=== PATIENT | male | born 1960 | race Hispanic/Latino ===

== ENCOUNTER 2018-01-17 16:16 | Emergency (ER) | payer OTHER ==
[2018-01-17 17:31] LABS: Absolute Lymphocytes (CBC) 1.5 K/uL (0.7-4.9); Absolute Monocytes 0.7 K/uL (0.1-1.3); Absolute Neutrophil 4.1 K/uL (1.8-8.0); Basophils % 0.4 % (0-1.3); Hematocrit 36.3 % (39.6-49.0); Lymphocytes % 22.5 % (15.3-44.8); MCH 32.3 pg (27.0-35.0); MCV 96.5 fL (80-100); MPV 8.6 fL (7.6-11.3); Monocytes % 11.2 % (3.3-12.3); RBC Red Blood Cell Count 3.77 M/uL (4.33-5.43)
[2018-01-17 17:35] LABS: Protime INR 0.97
--- NOTE | 2018-01-17 17:53 | RAD REPORT ---
EXAM DESCRIPTION: RAD - Chest Single View - 01/17/2018 5:35 pm CLINICAL HISTORY: Delays, shortness of breath COMPARISON: October 2015 TECHNIQUE: AP portable chest image was obtained 1727 hour . FINDINGS: Low lung volumes are noted. Patient is in a lordotic position. No significant pulmonary ed mary seen. No peripheral mass or consolidation. Lung markings are not substantially different when adj usting for technique and inspiratory effort. Heart and vasculature are normal. No measurable pleural effusion and no pneumothorax. No gross bony abnormality seen. No acute aortic findings suspected. IMPRESSION: Limited portable study not substantially different from comparison.
[2018-01-17 17:58] LABS: ALT/SGPT 19 U/L (12-78); AST/SGOT 12 U/L (15-37); Albumin 3.5 g/dL (3.4-5.0); Alkaline Phosphatase 72 U/L (45-117); BUN Blood Urea Nitrogen 20 mg/dL (7-18); Bicarbonate 22 mmol/L (21-32); Bilirubin Direct < 0.1 mg/dL (0-0.2); Bilirubin Total 0.3 mg/dL (0.2-1.0); Creatine Phosphokinase 56 U/L (39-308); Glucose Level 189 mg/dL (74-106); Magnesium 1.5 mg/dL (1.8-2.4); NT PRO-BNP 17 pg/mL (<125); Protein, Total 6.8 g/dL (6.4-8.2); Sodium Level 140 mmol/L (136-145)
[2018-01-17] MEDS ORDERED: NA CHLORIDE 0.9% 1,000 ML ONE (18:36)
[2018-01-17] MEDS ORDERED: NA CHLORIDE 0.9% 500 ML ONE (20:53)
[2018-01-17] MEDS ORDERED: Magnesium Sulfate 2gm IVPB 2 G/50 ML BAG IV ONE (20:53)
[2018-01-17 20:57] LABS: Urine Blood NEGATIVE (NEG); Urine Glucose NEGATIVE (NEG); Urine Protein NEGATIVE (NEG); Urine Specific Gravity >1.030 (1.005-1.030); Urine pH 5.5 (5.0-7.0)
--- NOTE | 2018-01-17 21:37 | EDPHYS ---
Physician Documentation [facility] Name: Trever Jay Age: 57 yrs Sex: Male : 1960 Arrival Date: 01/17/2018 Time: 16:21 Bed 30 Private MD: ED Physician Claudio Pedro HPI: 01/17 21:33 This 57 yrs old Male presents to ER via Wheelchair with complaints of Near gs Syncope, High Blood Sugar. 21:33 The patient has experienced near-syncope, almost passed out. Onset: The gs symptoms/episode began/occurred acutely, just prior to arrival. Duration: This was a single episode, that lasted 5 minute(s). Associated injury: The patient did not suffer any apparent associated injury. Associated signs and symptoms: Pertinent negatives: abdominal pain, chest pain, shortness of breath. Current symptoms: Currently, the patient is not experiencing any symptoms, the patient feels back to baseline. The patient has experienced similar episodes in the past, a few times. Historical: - Allergies: 16:27 No Known Allergies; la1 - PMHx: 16:27 Diabetes - NIDDM; High Cholesterol; la1 - Immunization history:: Adult Immunizations up to date. - Social history:: Smoking status: Patient/guardian denies using tobacco. - Ebola Screening: : No symptoms or risks identified at this time. ROS: 21:33 All other systems are negative. gs Exam: 21:33 Head/Face: Normocephalic, atraumatic. Eyes: Pupils equal round and reactive to light, gs extra-ocular motions intact. Lids and lashes normal. Conjunctiva and sclera are non-icteric and not injected. Cornea within normal limits. Periorbital areas with no swelling, redness, or edema. ENT: Nares patent. No nasal discharge, no septal abnormalities noted. Tympanic membranes are normal and external auditory canals are clear. Oropharynx with no redness, swelling, or masses, exudates, or evidence of obstruction, uvula midline. Mucous membranes moist. Neck: Trachea midline, no thyromegaly or masses palpated, and no cervical lymphadenopathy. Supple, full range of motion without nuchal rigidity, or vertebral point tenderness. No Meningismus. Chest/axilla: Normal chest wall appearance and motion. Nontender with no deformity. No lesions are appreciated. Cardiovascular: Regular rate and rhythm with a normal S1 and S2. No gallops, murmurs, or rubs. Normal PMI, no JVD. No pulse deficits. Respiratory: Lungs have equal breath sounds bilaterally, clear to auscultation and percussion. No rales, rhonchi or wheezes noted. No increased work of breathing, no retractions or nasal flaring. Abdomen/GI: Soft, non-tender, with normal bowel sounds. No distension or tympany. No guarding or rebound. No evidence of tenderness throughout. Back: No spinal tenderness. No costovertebral tenderness. Full range of motion. Skin: Warm, dry with normal turgor. Normal color with no rashes, no lesions, and no evidence of cellulitis. MS/ Extremity: Pulses equal, no cyanosis. Neurovascular intact. Full, normal range of motion. Neuro: Awake and alert, GCS 15, oriented to person, place, time, and situation. Cranial nerves II-XII grossly intact. Motor strength 5/5 in all extremities. Sensory grossly intact. Cerebellar exam normal. Normal gait. 21:33 ECG was reviewed by the Attending Physician. Vital Signs: 16:27 BP 105 / 73; Pulse 75; Resp 19; Temp 98.4(O); Pulse Ox 100% on R/A; Weight 84.37 kg; la1 Height 5 ft. 1 in. (154.94 cm); 16:48 BP 110 / 71; Pulse 79; Resp 17; Pulse Ox 96% on R/A; rv 18:30 BP 107 / 71; Pulse 66; Resp 16; Pulse Ox 97% on R/A; Pain 0/10; ed1 19:38 BP 118 / 76; Pulse 65; Resp 16; Pulse Ox 98% on R/A; Pain 0/10; ed1 20:31 BP 109 / 75; Pulse 61; Resp 18; Pulse Ox 97% on R/A; Pain 0/10; ed1 21:31 Pulse 67; Resp 16; Pulse Ox 97% on R/A; Pain 0/10; ed1 22:13 BP 115 / 70; Pulse 68; Resp 17; Pulse Ox 99% on R/A; kr2 16:27 Body Mass Index 35.14 (84.37 kg, 154.94 cm) la1 MDM: 17:11 Patient medically screened. gs 21:33 Differential Diagnosis: cardiac arrhythmia, drug effect, idiopathic syncope, gs dehydration. Data reviewed: vital signs, nurses notes. Response to treatment: the patient's symptoms have markedly improved after treatment, and as a result, I will discharge patient. 01/17 17:00 Order name: Basic Metabolic Panel 01/17 17:00 Order name: CBC with Diff; Complete Time: 20:40 gs 01/17 17:00 Order name: CPK gs 01/17 17:00 Order name: LFT's; Complete Time: 20:40 gs 01/17 17:00 Order name: Magnesium; Complete Time: 20:40 gs 01/17 17:00 Order name: NT PRO-BNP; Complete Time: 20:40 gs 01/17 17:00 Order name: PT-INR; Complete Time: 20:40 gs 01/17 17:00 Order name: Troponin (emerg Dept Use Only); Complete Time: 20:40 gs 01/17 17:00 Order name: XRAY Chest (1 view); Complete Time: 20:40 gs 01/17 17:01 Order name: Basic Metabolic Panel; Complete Time: 20:40 EDMS 01/17 17:01 Order name: Creatine Phosphokinase; Complete Time: 20:40 EDMS 0806 17:05 Order name: Glucose, Ancillary Testing; Complete Time: 20:40 EDMS 01/17 20:51 Order name: Urine Dipstick--Ancillary (enter results); Complete Time: 21:37 mw2 01/17 17:00 Order name: EKG; Complete Time: 17:01 gs 01/17 17:00 Order name: Cardiac monitoring; Complete Time: 17:26 gs 01/17 17:00 Order name: EKG - Nurse/Tech; Complete Time: 17:45 gs 01/17 17:00 Order name: IV Saline Lock; Complete Time: 17:26 gs 01/17 17:00 Order name: Labs collected and sent; Complete Time: 17:26 gs 01/17 17:00 Order name: O2 Per Protocol; Complete Time: 17:26 gs 01/17 17:00 Order name: O2 Sat Monitoring; Complete Time: 17:26 gs 01/17 17:00 Order name: Urine Dipstick-Ancillary (obtain specimen); Complete Time: 20:49 gs EC:33 Rate is 75 beats/min. Rhythm is regular. NE interval is normal. QRS interval is gs prolonged. T waves are Normal. Clinical impression: Abnormal EKG without significant change. Interpreted by me. Administered Medications: 18:35 Drug: NS 0.9% 1000 ml Route: IV; Rate: 1 bolus; Site: right forearm; ed1 20:37 Follow up: IV Status: Completed infusion; IV Intake: 1000ml ed1 20:54 Drug: Magnesium Sulfate 2 grams Route: IVPB; Infused Over: 2 hrs; Site: right forearm; ed1 22:05 Follow up: Response: No adverse reaction; IV Status: Completed infusion kr2 20:54 Drug: NS 0.9% 500 ml Route: IV; Rate: bolus; Site: right forearm; ed1 22:13 Follow up: Response: No adverse reaction; IV Status: Completed infusion kr2 Point of Care Testing: Blood Glucose: 16:35 Blood Glucose: 131 mg/dL; ed1 Ranges: Critical Glucose Levels:Adult <50 mg/dl or >400 mg/dl <40 mg/dl or >180 mg/dl Disposition: 01/17/18 21:37 Discharged to Home. Impression: Syncope and collapse, Hypomagnesemia. - Condition is Stable. - Discharge Instructions: Hypomagnesemia, Near-Syncope, Dehydration, Adult, [id number]. - Medication Reconciliation Form, Thank You Letter, Antibiotic Education, Prescription Opioid Use form. - Follow up: Private Physician; When: 2 - 3 days; Reason: Re-evaluation by your physician. Signatures: Dispatcher [employer] EDMS Donita Szymanski, GOVERNMENT INSTRUCTOR GOVERNMENT INSTRUCTOR ed1 Damien Muhammad RN RN la1 Claudio Pedro MD MD gs Reaves, Karey, RN RN kr2 Corrections: (The following items were deleted from the chart) 20:31 17:27 PSHx: Hysterectomy; ed1 ed1 20:31 17:27 PSHx: Tubal ligation; ed1 ed1 21:38 21:37 01/17/2018 21:37 Discharged to Home. Impression: Syncope and collapse; gs Hypokalemia; Hypomagnesemia. Condition is Stable. Forms are Medication Reconciliation Form, Thank You Letter, Antibiotic Education, Prescription Opioid Use. Follow up: Private Physician; When: 2 - 3 days; Reason: Re-evaluation by your physician. gs 22:18 21:38 01/17/2018 21:37 Discharged to Home. Impression: Syncope and collapse; kr2 Hypomagnesemia. Condition is Stable. Discharge Instructions: Hypomagnesemia, Near-Syncope, Hypokalemia. Forms are Medication Reconciliation Form, Thank You Letter, Antibiotic Education, Prescription Opioid Use. Follow up: Private Physician; When: 2 - 3 days; Reason: Re-evaluation by your physician. gs
--- NOTE | 2018-01-17 21:37 | ER ---
Nurse's Notes [facility] Name: Trever Jay Age: 57 yrs Sex: Male : 1960 Arrival Date: 01/17/2018 Time: 16:21 Bed 30 Private MD: Diagnosis: Syncope and collapse;Hypomagnesemia Presentation: 01/17 16:26 Presenting complaint: Significant other states: He was at the gas station and almost la1 passed out, he is diabetic so he ate a bunch of sweets but he is still not feeling quite right. Transition of care: patient was not received from another setting of care. Onset of symptoms was January 17, 2018. Risk Assessment: Do you want to hurt yourself or someone else? Patient reports no desire to harm self or others. Initial Sepsis Screen: Does the patient meet any 2 criteria? No. Patient's initial sepsis screen is negative. Does the patient have a suspected source of infection? No. Patient's initial sepsis screen is negative. Care prior to arrival: None. 16:26 Method Of Arrival: Wheelchair la1 16:26 Acuity: ANAMARIA 3 la1 Historical: - Allergies: 16:27 No Known Allergies; la1 - PMHx: 16:27 Diabetes - NIDDM; High Cholesterol; la1 - Immunization history:: Adult Immunizations up to date. - Social history:: Smoking status: Patient/guardian denies using tobacco. - Ebola Screening: : No symptoms or risks identified at this time. Screenin:35 Abuse screen: Denies threats or abuse. Denies injuries from another. Nutritional ed1 screening: No deficits noted. Tuberculosis screening: No symptoms or risk factors identified. Fall Risk None identified. Assessment: 16:35 General: Appears in no apparent distress. Behavior is calm, cooperative. Pain: Denies ed1 pain. Neuro: Level of Consciousness is awake, alert, obeys commands, Oriented to person, place, time, situation, Sample Steamer are equal bilaterally Moves all extremities. Full function Gait is steady, Speech is normal, Facial symmetry appears normal, Reports a syncopal episode Denies weakness blurred vision dizziness, difficulty swallowing, paresthesias numbness headache photophobia diplopia. Cardiovascular: Denies chest pain, Heart tones S1 S2 present. Respiratory: Airway is patent Respiratory effort is even, unlabored, Respiratory pattern is regular, symmetrical, Breath sounds are clear bilaterally. GI: Abdomen is non-distended, Bowel sounds present X 4 quads. Abd is soft and non tender X 4 quads. : No signs and/or symptoms were reported regarding the genitourinary system. EENT: No signs and/or symptoms were reported regarding the EENT system. Derm: Skin is pink, warm \T\ dry. Musculoskeletal: Circulation, motion, and sensation intact. 16:40 General: The previous assessment is accurate. Call light remains within reach. . ss 18:30 Reassessment: Patient appears in no apparent distress at this time. No changes from ed1 previously documented assessment. Patient and/or family updated on plan of care and expected duration. Pain level reassessed. Patient is alert, oriented x 3, equal unlabored respirations, skin warm/dry/pink. Patient denies pain at this time. 19:38 Reassessment: Patient appears in no apparent distress at this time. No changes from ed1 previously documented assessment. Patient and/or family updated on plan of care and expected duration. Pain level reassessed. Patient is alert, oriented x 3, equal unlabored respirations, skin warm/dry/pink. Patient denies pain at this time. 20:31 Reassessment: Patient appears in no apparent distress at this time. No changes from ed1 previously documented assessment. Patient and/or family updated on plan of care and expected duration. Pain level reassessed. Patient is alert, oriented x 3, equal unlabored respirations, skin warm/dry/pink. Patient denies pain at this time. 21:31 Reassessment: Patient appears in no apparent distress at this time. No changes from ed1 previously documented assessment. Patient and/or family updated on plan of care and expected duration. Pain level reassessed. Patient is alert, oriented x 3, equal unlabored respirations, skin warm/dry/pink. Patient denies pain at this time. 22:13 Reassessment: Patient appears in no apparent distress at this time. Patient and/or kr2 family updated on plan of care and expected duration. Pain level reassessed. Patient is alert, oriented x 3, equal unlabored respirations, skin warm/dry/pink. Patient denies pain at this time. Patient states feeling better. Vital Signs: 16:27 BP 105 / 73; Pulse 75; Resp 19; Temp 98.4(O); Pulse Ox 100% on R/A; Weight 84.37 kg; la1 Height 5 ft. 1 in. (154.94 cm); 16:48 BP 110 / 71; Pulse 79; Resp 17; Pulse Ox 96% on R/A; rv 18:30 BP 107 / 71; Pulse 66; Resp 16; Pulse Ox 97% on R/A; Pain 0/10; ed1 19:38 BP 118 / 76; Pulse 65; Resp 16; Pulse Ox 98% on R/A; Pain 0/10; ed1 20:31 BP 109 / 75; Pulse 61; Resp 18; Pulse Ox 97% on R/A; Pain 0/10; ed1 21:31 Pulse 67; Resp 16; Pulse Ox 97% on R/A; Pain 0/10; ed1 22:13 BP 115 / 70; Pulse 68; Resp 17; Pulse Ox 99% on R/A; kr2 16:27 Body Mass Index 35.14 (84.37 kg, 154.94 cm) la1 ED Course: 16:21 Patient arrived in ED. es 16:27 Triage completed. la1 16:27 Arm band placed on left wrist. la1 16:28 Donita Szymanski LVN is Primary Nurse. ed1 16:35 Awaiting ED provider evaluation. ed1 16:35 Patient has correct armband on for positive identification. Placed in gown. Bed in low ed1 position. Call light in reach. Adult w/ patient. equipment monitor phototypesetting on. Pulse ox on. NIBP on. 16:39 Claudio Pedro MD is Attending Physician. gs 17:10 EKG done, by remote sensing technician. reviewed by Claudio Pedro MD. 3 17:20 Initial lab(s) drawn, by id, sent to lab. Inserted saline lock: 22 gauge in right jp3 forearm, using aseptic technique. Blood collected. 17:29 X-ray completed. Portable x-ray completed in exam room. Patient tolerated procedure kp1 well. 17:30 XRAY Chest (1 view) In Process Unspecified. EDMS 19:39 Awaiting disposition. ed1 19:53 Basic Metabolic Panel Sent. ed1 19:53 CPK Sent. ed1 20:33 Awaiting disposition. ed1 20:40 Urine collected: clean catch specimen, clear, germaine colored. jp3 21:31 Awaiting: Completion of IV magnesium. ed1 21:45 Primary Nurse role handed off by Donita Szymanski LVN ed1 22:15 No provider procedures requiring assistance completed. IV discontinued, intact, kr2 bleeding controlled, No redness/swelling at site. Pressure dressing applied. Administered Medications: 18:35 Drug: NS 0.9% 1000 ml Route: IV; Rate: 1 bolus; Site: right forearm; ed1 20:37 Follow up: IV Status: Completed infusion; IV Intake: 1000ml ed1 20:54 Drug: Magnesium Sulfate 2 grams Route: IVPB; Infused Over: 2 hrs; Site: right forearm; ed1 22:05 Follow up: Response: No adverse reaction; IV Status: Completed infusion kr2 20:54 Drug: NS 0.9% 500 ml Route: IV; Rate: bolus; Site: right forearm; ed1 22:13 Follow up: Response: No adverse reaction; IV Status: Completed infusion kr2 Point of Care Testing: Blood Glucose: 16:35 Blood Glucose: 131 mg/dL; ed1 Ranges: Intake: 20:37 IV: 1000ml; Total: 1000ml. ed1 Outcome: 21:37 Discharge ordered by . gs 22:15 Discharged to home ambulatory, with family. kr2 22:15 Condition: good 22:15 Discharge instructions given to patient, family, Instructed on discharge instructions, follow up and referral plans. Demonstrated understanding of instructions, follow-up care. 22:18 Patient left the ED. kr2 Signatures: Dispatcher [employer] EDMS Emelina Baeza Shelby, RN RN Donita Szymanski LVN LVN ed1 Damien Muhammad RN RN la1 Poole, Kathy 1 Claudio Pedro MD MD Dianna Haro RN RN kr2 Cordelia Ramirez 3 Aiden Anguiano RN RN Corey Fu jp3 Corrections: (The following items were deleted from the chart) 20:31 17:27 PSHx: Hysterectomy; ed1 ed1 20:31 17:27 PSHx: Tubal ligation; ed1 ed1
--- NOTE | 2018-01-18 06:48 | EKG ---
Test Date: 2018-01-17 Test Time: 17:07:00 Edge Polisher: SHEA MEASUREMENT RESULTS: Intervals: Rate: 75 NE: 164 QRSD: 108 QT: 394 QTc: 439 [place]: P: 47 NE: 164 QRS: -29 T: 40 INTERPRETIVE STATEMENTS: Normal sinus rhythm Normal ECG Compared to ECG 05/17/2002 15:47:00 No significant changes Electronically Signed On 01-18-18 06:48:02 CDT by Phani Yanes
== END 2018-01-17 22:18 | disposition home or self-care (01) ==
LOC: ER 16:16
DX: R55 Syncope and collapse (principal); E83.42 Hypomagnesemia; E11.9 Type 2 diabetes mellitus without complications
CPT/HCPCS: 36415; 71045; 80048; 80076; 81003; 82550; 82962; 83735; 83880; 84484; 85025; 85610; 93005; J3475; J7030; 96361; 96365; 99285

== ENCOUNTER 2018-06-30 17:46 | Emergency (ER) | payer OTHER ==
--- NOTE | 2018-06-30 20:11 | RAD REPORT ---
EXAM DESCRIPTION: CT - Head C Spine Mpr Wo Con - 06/30/2018 7:56 pm CLINICAL HISTORY: Head and neck injury status post fall. Head and neck pain COMPARISON: None. TECHNIQUE: Computed axial tomography of the head and cervical spine was obtained. Sagittal and coronal reconstruction was performed. All CT scans are performed using dose optimization technique as appropriate and may include automated exposure control or mA/KV adjustment according to patient size. FINDINGS: An intracranial bleed is not seen. The ventricles are normal in caliber. An extra-axial fl uid collection is not noted.Fluid within the visualized sinuses and mastoids is not seen the left man dibular condyle lies anterior to the TMJ A cervical fracture is not visualized. No dislocation is noted. Loss of the normal lordosis may be se condary to muscle spasm IMPRESSION: No acute intracranial abnormality is seen. A cervical fracture is not visualized. If the patient continues to have symptoms to suggest intracra nial /spinal cord pathology then MRI would be recommended Left mandibular condyle lies anterior to the TMJ which may indicate a dislocation or be secondary to positioning. This should be correlated clinically
--- NOTE | 2018-06-30 20:17 | RAD REPORT ---
EXAM DESCRIPTION: CT - Abdomen Pelvis Wo Contrast - 06/30/2018 7:57 pm CLINICAL HISTORY: Abdominal pain status post fall COMPARISON: 2013 TECHNIQUE: Computed axial tomography of the abdomen and pelvis was obtained. IV and oral contrast we re not requested. All CT scans are performed using dose optimization technique as appropriate and may include automated exposure control or mA/KV adjustment according to patient size. FINDINGS: The evaluation of solid organs, vessels and bowel is limited secondary to the lack of con trast administration. The liver, spleen, pancreas, adrenals, kidneys and bladder do not demonstrate a traumatic injury. . The appendix is normal. There is no evidence of diverticulitis. Small left inguinal hernia contains fat. Tiny nonobstructing right renal calculi IMPRESSION: No acute traumatic injury is seen
--- NOTE | 2018-06-30 20:53 | EDPHYS ---
Physician Documentation [facility] Name: Trever Jay Age: 58 yrs Sex: Male : 1960 Arrival Date: 06/30/2018 Time: 17:48 Bed 18 Private MD: Bhanu Kohler E ED Physician Claudio Pedro HPI: 06/30 20:49 This 58 yrs old Male presents to ER via Ambulatory with complaints of Fall gs Injury. 20:49 Details of fall: The patient fell from an upright position, while walking. Onset: The gs symptoms/episode began/occurred acutely, just prior to arrival. Associated injuries: The patient sustained injury to the head, neck injury, left hip and right hip. Severity of symptoms: At their worst the symptoms were moderate, in the emergency department the symptoms are unchanged. The patient has not experienced similar symptoms in the past. The patient has not recently seen a physician. Historical: - Allergies: 18:12 No Known Allergies; hb - PMHx: 18:12 Diabetes - NIDDM; High Cholesterol; hb - Immunization history:: Adult Immunizations up to date. - Social history:: Smoking status: Patient uses tobacco products, smokes one-half pack cigarettes per day. - Ebola Screening: : No symptoms or risks identified at this time. ROS: 20:49 Neuro: Positive for loss of consciousness. gs 20:49 All other systems are negative. Exam: 20:49 Head/Face: Normocephalic, atraumatic. Eyes: Pupils equal round and reactive to light, gs extra-ocular motions intact. Lids and lashes normal. Conjunctiva and sclera are non-icteric and not injected. Cornea within normal limits. Periorbital areas with no swelling, redness, or edema. ENT: Nares patent. No nasal discharge, no septal abnormalities noted. Tympanic membranes are normal and external auditory canals are clear. Oropharynx with no redness, swelling, or masses, exudates, or evidence of obstruction, uvula midline. Mucous membranes moist. Chest/axilla: Normal chest wall appearance and motion. Nontender with no deformity. No lesions are appreciated. Cardiovascular: Regular rate and rhythm with a normal S1 and S2. No gallops, murmurs, or rubs. Normal PMI, no JVD. No pulse deficits. Respiratory: Lungs have equal breath sounds bilaterally, clear to auscultation and percussion. No rales, rhonchi or wheezes noted. No increased work of breathing, no retractions or nasal flaring. Abdomen/GI: Soft, non-tender, with normal bowel sounds. No distension or tympany. No guarding or rebound. No evidence of tenderness throughout. MS/ Extremity: Pulses equal, no cyanosis. Neurovascular intact. Full, normal range of motion. Neuro: Awake and alert, GCS 15, oriented to person, place, time, and situation. Cranial nerves II-XII grossly intact. Motor strength 5/5 in all extremities. Sensory grossly intact. Cerebellar exam normal. Normal gait. 20:49 Constitutional: The patient appears alert, awake. 20:49 Neck: C-spine: vertebral tenderness, that is mild, appreciated at C3 and C4. 20:49 Back: vertebral tenderness, is appreciated at L3 and L4. 20:49 Musculoskeletal/extremity: Circulation is intact in all extremities. Joints: the left hip and right hip displays tenderness. Vital Signs: 18:10 BP 122 / 78; Pulse 80; Resp 18; Pulse Ox 98% on R/A; Pain 10/10; ls4 18:11 BP 108 / 72; Pulse 88; Resp 18; Temp 97.2; Pulse Ox 100% on R/A; Pain 10/10; hb 20:51 BP 119 / 75; Pulse 80; Resp 16; Pulse Ox 99% on R/A; ls4 Trauma Score (Adult): 18:11 Eye Response: spontaneous(1); Verbal Response: oriented(1); Motor Response: obeys hb commands(2); Systolic BP: > 89 mm Hg(4); Respiratory Rate: 10 to 29 per min(4); [place] Score: 15; Trauma Score: 12 MDM: 19:38 Patient medically screened. gs 20:49 Differential diagnosis: closed head injury, contusion, fracture. Data reviewed: vital gs signs, nurses notes. Counseling: I had a detailed discussion with the patient and/or guardian regarding: the historical points, exam findings, and any diagnostic results supporting the discharge/admit diagnosis, radiology results, the need for outpatient follow up. Response to treatment: the patient's symptoms have markedly improved after treatment, and as a result, I will discharge patient. 06/30 19:41 Order name: CT Head C Spine; Complete Time: 20:48 06/30 19:41 Order name: CT Abd/Pelvis - Without Cont; Complete Time: 20:48 gs Administered Medications: No medications were administered Disposition: 06/30/18 20:52 Discharged to Home. Impression: Concussion, Contusion of lower back and pelvis. - Condition is Stable. - Discharge Instructions: Contusion, Concussion, Adult, [id number]. - Prescriptions for Tylenol- Codeine #4 300-60 mg Oral Tablet - take 1 tablet by ORAL route every 6 hours As needed; 10 tablet. - Medication Reconciliation Form, Thank You Letter, Antibiotic Education, Prescription Opioid Use form. - Follow up: Emergency Department; When: 2 - 3 days; Reason: Re-evaluation by your physician. - Problem is new. - Symptoms have improved. Signatures: Dispatcher [employer] EDMS Ariela Akhtar, RN RN Claudio Pedro MD MD Tanya Russell RN RN ls4 Corrections: (The following items were deleted from the chart) 21:32 20:52 06/30/2018 20:52 Discharged to Home. Impression: Concussion; Contusion of lower ls4 back and pelvis. Condition is Stable. Forms are Medication Reconciliation Form, Thank You Letter, Antibiotic Education, Prescription Opioid Use. Follow up: Emergency Department; When: 2 - 3 days; Reason: Re-evaluation by your physician. Problem is new. Symptoms have improved. gs
--- NOTE | 2018-06-30 20:53 | ER ---
Nurse's Notes [facility] Name: Trever Jay Age: 58 yrs Sex: Male : 1960 Arrival Date: 06/30/2018 Time: 17:48 Bed 18 Private MD: Bhanu Kohler E Diagnosis: Concussion;Contusion of lower back and pelvis Presentation: 06/30 18:07 Presenting complaint: Tripped on rug at grocery store, fell forward and landed on left hb side, now c/o left hip pain 03/23. + LOC. EMS was called to scene but pt refused due to concerns over transportation home. Care prior to arrival: None. Mechanism of Injury: Fall. 18:07 Acuity: ANAMARIA 2 hb 18:07 Method Of Arrival: Ambulatory hb 18:49 Risk Assessment: Do you want to hurt yourself or someone else? Patient reports no ls4 desire to harm self or others. 19:29 Transition of care: patient was not received from another setting of care. Onset of ls4 symptoms was June 30, 2018. Initial Sepsis Screen: Does the patient meet any 2 criteria? No. Patient's initial sepsis screen is negative. Does the patient have a suspected source of infection? No. Patient's initial sepsis screen is negative. Triage Assessment: 18:10 General: Appears in no apparent distress. Behavior is calm, cooperative. ls4 18:10 Pain: Complains of pain in "ALL OVER" Pain currently is 10 out of 10 on a pain scale. ls4 Noted to be PT MOVING ARMS AND LEGS AND ABLE TO GET UP AND DOWN FROM WHEEL CHAIR INDEPENDENTLY. Neuro: No deficits noted. Respiratory: No deficits noted. Musculoskeletal: Circulation, motion, and sensation intact. Capillary refill < 3 seconds, Range of motion: limited in left knee and right knee PT STATES HE NEEDS KNEE SURGERIES AND WEARS BRACES ON BOTH KNEES. Trauma Activation: Alert Physician: ED Physician; Name: ; Notified At: ; Arrived At: Physician: General Surgeon; Name: ; Notified At: ; Arrived At: Physician: Radiology; Name: ; Notified At: ; Arrived At: Physician: Respiratory; Name: ; Notified At: ; Arrived At: Physician: Lab; Name: ; Notified At: ; Arrived At: Historical: - Allergies: 18:12 No Known Allergies; hb - PMHx: 18:12 Diabetes - NIDDM; High Cholesterol; hb - Immunization history:: Adult Immunizations up to date. - Social history:: Smoking status: Patient uses tobacco products, smokes one-half pack cigarettes per day. - Ebola Screening: : No symptoms or risks identified at this time. Screenin:24 Abuse screen: Denies threats or abuse. Denies injuries from another. Nutritional ls4 screening: No deficits noted. Tuberculosis screening: No symptoms or risk factors identified. Fall Risk None identified. Primary Survey: 18:24 NO uncontrolled hemorrhage observed. A: The patient is alert. Airway: patent. ls4 Breathing/Chest: Respiratory pattern: regular, Respiratory effort: spontaneous, unlabored, Breath sounds: clear, bilaterally. Circulation: Pulses: palpable right radial artery, right dorsalis pedis artery, left radial artery and left dorsalis pedis artery. Skin color: pink. Disability Alert. Exposure/Environment: All clothing and personal items were removed. Forensic evidence collection is not deemed to be indicated at this time. Items placed in patient belonging bag. There is no evidence of uncontrolled external bleeding. No obvious injuries are noted at this time. A warming method has been applied: WARM BLANKET GIVEN. Reassessment Airway Airway Patent Breathing/Chest Respiratory pattern Regular Respiratory effort Spontaneous Unlabored Breath sounds Clear Circulation Heart rhythm Sinus rhythm Disability Alert. Secondary Survey: 18:26 HEENT: No deficits noted. Gastrointestinal: No deficits noted. : No deficits noted. ls4 Musculoskeletal: No deficits noted. Injury Description: NO VISIBLE INJURIES. Assessment: 18:19 General: Appears in no apparent distress. Behavior is calm. Pain: Complains of pain in ls4 GENERALIZED. Neuro: Level of Consciousness is awake, alert, Oriented to person, place, time. Cardiovascular: No deficits noted. Respiratory: No deficits noted. GI: No deficits noted. : No deficits noted. Derm: No deficits noted. Musculoskeletal: Circulation, motion, and sensation intact. Capillary refill < 3 seconds, Range of motion: intact in all extremities, PT WEARING BILATERAL KNEE BRACES AND STATES HE HAS ARTHRITIS AND NEEDS KNEE SURGERIES IN BOTH KNEES. PT ABLE TO BEND KNEES AND HIPS. NONE Swelling absent. Injury Description: FALL. PT STATES HE TRIPPED ON RUG. NO ABRASIONS OR INJURY NOTED. 19:27 Reassessment: Patient appears in no apparent distress at this time. Patient and/or ls4 family updated on plan of care and expected duration. Pain level reassessed. Patient is alert, oriented x 3, equal unlabored respirations, skin warm/dry/pink. PT RESTING QUIETLY. ALERT AND ORIENTED X 4. PT IN NAD, NO GRIMACING AND ABLE TO MOVE ABOUT WITHOUT DISTRESS. 20:38 Reassessment: Patient appears in no apparent distress at this time. Patient and/or ls4 family updated on plan of care and expected duration. Pain level reassessed. Patient is alert, oriented x 3, equal unlabored respirations, skin warm/dry/pink. Vital Signs: 18:10 BP 122 / 78; Pulse 80; Resp 18; Pulse Ox 98% on R/A; Pain 10/10; ls4 18:11 BP 108 / 72; Pulse 88; Resp 18; Temp 97.2; Pulse Ox 100% on R/A; Pain 10/10; hb 20:51 BP 119 / 75; Pulse 80; Resp 16; Pulse Ox 99% on R/A; ls4 Trauma Score (Adult): 18:11 Eye Response: spontaneous(1); Verbal Response: oriented(1); Motor Response: obeys hb commands(2); Systolic BP: > 89 mm Hg(4); Respiratory Rate: 10 to 29 per min(4); [place] Score: 15; Trauma Score: 12 ED Course: 17:48 Patient arrived in ED. rg4 17:49 Bhanu Kohler MD is Private Physician. rg4 18:09 Triage completed. hb 18:12 Rome Hendrix MD is Attending Physician. kdr 18:12 Arm band placed on. hb 18:19 Tanya Russell, NATHALIE is Primary Nurse. ls4 18:24 Patient has correct armband on for positive identification. Bed in low position. Side ls4 rails up X 1. 18:24 No provider procedures requiring assistance completed. ls4 19:04 Attending Physician role handed off by Rome Hendrix MD gs 19:04 Claudio Pedro MD is Attending Physician. gs 19:[address] vm2 19:53 CT completed. Patient tolerated procedure well. Patient moved back from CT. vm2 19:57 CT Head C Spine In Process Unspecified. EDMS 19:57 CT Abd/Pelvis - Without Cont In Process Unspecified. EDMS 21:13 Patient did not have IV access during this emergency room visit. ls4 Administered Medications: No medications were administered Outcome: 20:52 Discharge ordered by . magi 21:08 Discharged to home ambulatory. ls4 21:08 Condition: stable 21:08 Discharge instructions given to patient, Instructed on discharge instructions, follow up and referral plans. no drinking with medication, no driving heavy equipment, medication usage, Demonstrated understanding of instructions, follow-up care, medications. 21:32 Patient left the ED. ls4 Signatures: Dispatcher [employer] EDMS Rome Hendrix MD MD [facility] Ariela Akhtar RN RN Beata Smith 4 Bridget Restrepo [facility] Claudio Pedro MD MD gs Stewart, Lisa, RN RN ls4
== END 2018-06-30 21:32 | disposition home or self-care (01) ==
LOC: ER 17:46
DX: S06.0X9A Concussion with loss of consciousness of unspecified duration, initial encounter (principal); S30.0XXA Contusion of lower back and pelvis, initial encounter; W01.0XXA Fall on same level from slipping, tripping and stumbling without subsequent striking against object, initial encounter; Y93.01 Activity, walking, marching and hiking; E11.9 Type 2 diabetes mellitus without complications; E78.00 Pure hypercholesterolemia, unspecified; F17.210 Nicotine dependence, cigarettes, uncomplicated
CPT/HCPCS: 70450; 72125; 74176

== ENCOUNTER 2018-12-18 18:29 | Emergency (ER) | payer OTHER ==
--- NOTE | 2018-12-18 20:29 | RAD REPORT ---
EXAM DESCRIPTION: CT - Stone Protocol - 12/18/2018 8:05 pm CLINICAL HISTORY: Back pain, flank pain COMPARISON: June 2018 TECHNIQUE: Axial 5 mm thick images were obtained without oral or IV contrast. The [id number] span s the entirety of the system including uppermost abdomen and lung bases. All CT scans are performed using dose optimization technique as appropriate and may include automated exposure control or mA/KV adjustment according to patient size. FINDINGS: No hydronephrosis is present and no obstructing ureteral calculi. No suspicious renal mass es. Isodense masses and pyelonephritis are not excluded on a stone protocol CT scan. A 2 mm nonobstru cting calyx calcification present upper pole right kidney with a 3 mm nonobstructing calculus lower p ole calyx on the right. No left-sided calculi. No significant adrenal finding. No urinary bladder abn ormality. Prostate gland and seminal vesicles within normal range. Imaged portions of the liver, spleen and pancreas show no suspicious findings on non-contrast imaging . No gallbladder or biliary tree abnormality identified. No suspicious bowel findings. Appendix is normal. Moderate stool volume is present. There is left-spencer ed diverticulosis without diverticulitis. No mass or bulky lymphadenopathy. Small fat only left inguinal hernia present. No free air, free flui d or inflammatory stranding. No significant bony abnormality. IMPRESSION: Noncontrast CT abdomen and pelvis imaging shows no hydronephrosis, obstructing calculus or acute finding. Two nonobstructing calculi present on the right. Isodense masses and pyelonephritis are not excluded on stone protocol technique. No acute GI finding.
--- NOTE | 2018-12-18 20:33 | ER ---
Nurse's Notes [facility] Name: Trever Jay Age: 58 yrs Sex: Male : 1960 Arrival Date: 12/18/2018 Time: 18:32 Bed 30 Private MD: Bhanu Kohler E Diagnosis: Unspecified renal colic Presentation: 12/18 18:36 Presenting complaint: Patient states: I am having back pain that started yesterday but la1 is much worse today. I was doing yard work, Pain is positional. Transition of care: patient was not received from another setting of care. Onset of symptoms was December 18, 2018. Risk Assessment: Do you want to hurt yourself or someone else? Patient reports no desire to harm self or others. Initial Sepsis Screen: Does the patient meet any 2 criteria? No. Patient's initial sepsis screen is negative. Does the patient have a suspected source of infection? No. Patient's initial sepsis screen is negative. Care prior to arrival: None. 18:36 Method Of Arrival: Wheelchair la1 18:36 Acuity: ANAMARIA 3 la1 Historical: - Allergies: 18:37 No Known Allergies; la1 - PMHx: 18:37 Diabetes - NIDDM; High Cholesterol; Hepatitis; la1 - Immunization history:: Adult Immunizations up to date. - Social history:: Smoking status: Patient/guardian denies using tobacco. - Ebola Screening: : No symptoms or risks identified at this time. Screenin:00 Abuse screen: Denies threats or abuse. Denies injuries from another. Nutritional aj screening: No deficits noted. Tuberculosis screening: No symptoms or risk factors identified. Fall Risk None identified. Assessment: 20:00 General: Appears in no apparent distress. comfortable, Behavior is calm, cooperative, aj appropriate for age. Pain: Complains of pain in right mid back. Neuro: Level of Consciousness is awake, alert, obeys commands, Oriented to person, place, time, situation, Appropriate for age. Respiratory: Airway is patent Respiratory effort is even, unlabored, Respiratory pattern is regular, symmetrical. Derm: Skin is intact, is healthy with good turgor, Skin is pink, warm \T\ dry. normal. Musculoskeletal: Reports pain in right mid back. 20:15 Reassessment: Patient unable to provide urine sample at this time. Provider notified. aj Patient drinking water. Vital Signs: 18:37 BP 112 / 60; Pulse 81; Resp 16; Temp 97.6; Pulse Ox 98% on R/A; Weight 88.45 kg; Height la1 5 ft. 1 in. (154.94 cm); 20:59 BP 117 / 76; Pulse 86; Resp 16; Pulse Ox 99% on R/A; aj 18:37 Body Mass Index 36.84 (88.45 kg, 154.94 cm) la1 ED Course: 18:32 Patient arrived in ED. mr 18:32 Bhanu Kohler MD is Private Physician. mr 18:37 Triage completed. la1 18:38 Arm band placed on left wrist. la1 19:05 Bhanu Wilson MD is Attending Physician. ok 19:05 [facility] Moon [facility]C [facility]. snw 19:12 Ngozi Mendoza RN is Primary Nurse. aj 19:52 CT Stone Protocol In Process Unspecified. EDMS 19:53 CT completed. Patient tolerated procedure well. Patient moved back from CT. mw3 20:00 Patient has correct armband on for positive identification. aj 20:32 Bhanu Kohler MD is Referral Physician. snw 20:59 No provider procedures requiring assistance completed. Patient did not have IV access aj during this emergency room visit. Administered Medications: No medications were administered Outcome: 20:33 Discharge ordered by . snw 20:59 Discharged to home ambulatory. aj 20:59 Condition: good 20:59 Discharge instructions given to patient, family, Instructed on discharge instructions, follow up and referral plans. medication usage, Demonstrated understanding of instructions, follow-up care, medications, Prescriptions given X 1. 21:00 Patient left the ED. aj Signatures: Dispatcher [employer] EDMS Ngozi Mendoza, RN RN Kya Santos FNP-C FNP-Fabrice Vania Rodríguez Damien Muhammad, RN NATHALIE [facility] Bhanu Wilson MD MD wa Willis, Michelle mw3
--- NOTE | 2018-12-18 20:33 | EDPHYS ---
Physician Documentation [facility] Name: Trever Jay Age: 58 yrs Sex: Male : 1960 Arrival Date: 12/18/2018 Time: 18:32 Bed 30 Private MD: Bhanu Kohler E ED Physician Bhanu Wilson HPI: 12/18 19:30 This 58 yrs old Male presents to ER via Wheelchair with complaints of Back snw Pain. 19:30 The patient presents with pain that is acute, with no known mechanism of injury. The snw symptoms are located in the right mid back. Onset: The symptoms/episode began/occurred suddenly, 2 day(s) ago. The pain does not radiate. Associated signs and symptoms: Pertinent positives: decreased urination. The problem was sustained from unknown cause. Severity of symptoms: At their worst the symptoms were moderate. It is unknown whether or not the patient has had similar symptoms in the past. It is unknown whether or not the patient has recently seen a physician. Historical: - Allergies: 18:37 No Known Allergies; la1 - PMHx: 18:37 Diabetes - NIDDM; High Cholesterol; Hepatitis; la1 - Immunization history:: Adult Immunizations up to date. - Social history:: Smoking status: Patient/guardian denies using tobacco. - Ebola Screening: : No symptoms or risks identified at this time. ROS: 19:29 Constitutional: Negative for fever, chills, and weight loss, Eyes: Negative for injury, snw pain, redness, and discharge, ENT: Negative for injury, pain, and discharge, Neck: Negative for injury, pain, and swelling, Cardiovascular: Negative for chest pain, palpitations, and edema, Respiratory: Negative for shortness of breath, cough, wheezing, and pleuritic chest pain, Abdomen/GI: Negative for abdominal pain, nausea, vomiting, diarrhea, and constipation, : Negative for injury, bleeding, discharge, and swelling, MS/Extremity: Negative for injury and deformity, Skin: Negative for injury, rash, and discoloration, Neuro: Negative for headache, weakness, numbness, tingling, and seizure. 19:29 Back: Positive for pain at rest, pain with movement, flank pain, on the right. Exam: 19:28 Constitutional: This is a well developed, well nourished patient who is awake, alert, snw and in no acute distress. Head/Face: Normocephalic, atraumatic. Eyes: Pupils equal round and reactive to light, extra-ocular motions intact. Lids and lashes normal. Conjunctiva and sclera are non-icteric and not injected. Cornea within normal limits. Periorbital areas with no swelling, redness, or edema. ENT: Nares patent. No nasal discharge, no septal abnormalities noted. Tympanic membranes are normal and external auditory canals are clear. Oropharynx with no redness, swelling, or masses, exudates, or evidence of obstruction, uvula midline. Mucous membranes moist. Neck: Trachea midline, no thyromegaly or masses palpated, and no cervical lymphadenopathy. Supple, full range of motion without nuchal rigidity, or vertebral point tenderness. No Meningismus. Chest/axilla: Normal chest wall appearance and motion. Nontender with no deformity. No lesions are appreciated. Cardiovascular: Regular rate and rhythm with a normal S1 and S2. No gallops, murmurs, or rubs. Normal PMI, no JVD. No pulse deficits. Respiratory: Lungs have equal breath sounds bilaterally, clear to auscultation and percussion. No rales, rhonchi or wheezes noted. No increased work of breathing, no retractions or nasal flaring. Abdomen/GI: Soft, non-tender, with normal bowel sounds. No distension or tympany. No guarding or rebound. No evidence of tenderness throughout. MS/ Extremity: Pulses equal, no cyanosis. Neurovascular intact. Full, normal range of motion. Neuro: Awake and alert, GCS 15, oriented to person, place, time, and situation. Cranial nerves II-XII grossly intact. Motor strength 5/5 in all extremities. Sensory grossly intact. Cerebellar exam normal. Normal gait. Psych: Awake, alert, with orientation to person, place and time. Behavior, mood, and affect are within normal limits. 19:28 Back: pain, that is mild, that is moderate, of the right mid back, ROM is painful, normal spinal alignment noted, CVA tenderness, that is moderate, is noted on the right, vertebral tenderness, is not appreciated. Vital Signs: 18:37 BP 112 / 60; Pulse 81; Resp 16; Temp 97.6; Pulse Ox 98% on R/A; Weight 88.45 kg; Height la1 5 ft. 1 in. (154.94 cm); 20:59 BP 117 / 76; Pulse 86; Resp 16; Pulse Ox 99% on R/A; aj 18:37 Body Mass Index 36.84 (88.45 kg, 154.94 cm) la1 MDM: 19:05 Patient medically screened. ny 20:35 Data reviewed: vital signs, nurses notes. Data interpreted: Pulse oximetry: on room air snw is 98 %. Interpretation: normal. Counseling: I had a detailed discussion with the patient and/or guardian regarding: the historical points, exam findings, and any diagnostic results supporting the discharge/admit diagnosis, radiology results, the need for outpatient follow up, to return to the emergency department if symptoms worsen or persist or if there are any questions or concerns that arise at home. Special discussion: Based on the history and exam findings, there is no indication for further emergent testing or inpatient evaluation. I discussed with the patient/guardian the need to see the primary care provider for further evaluation of the symptoms. I discussed with the patient/guardian the need to see the urologist for further evaluation of the symptoms. 12/18 19:28 Order name: CT Stone Protocol; Complete Time: 20:30 snw Administered Medications: No medications were administered Disposition: 12/18/18 20:33 Discharged to Home. Impression: Unspecified renal colic. - Condition is Stable. - Discharge Instructions: Kidney Stones, Renal Colic, Dietary Guidelines to Help Prevent Kidney Stones, Rehydration, Adult. - Prescriptions for Tylenol- Codeine #3 300-30 mg Oral Tablet - take 2 tablet by ORAL route every 6 hours As needed; 6 tablet. - Medication Reconciliation Form, Thank You Letter, Antibiotic Education, Prescription Opioid Use form. - Follow up: Bhanu Kohler MD; When: 1 - 2 days; Reason: Recheck today's complaints, Continuance of care, Re-evaluation by your physician. Follow up: Emergency Department; When: As needed; Reason: Worsening of condition. Signatures: Dispatcher [employer] EDNgozi Beach RN RN aj Therrien, Shelly, AMBULATORY CARE NURSE-C AMBULATORY CARE NURSE-Csnw Damien Muhammad RN RN la1 Bhanu Wilson MD MD ny Corrections: (The following items were deleted from the chart) 21:00 20:33 12/18/2018 20:33 Discharged to Home. Impression: Unspecified renal colic. aj Condition is Stable. Forms are Medication Reconciliation Form, Thank You Letter, Antibiotic Education, Prescription Opioid Use. Follow up: Bhanu Kohler; When: 1 - 2 days; Reason: Recheck today's complaints, Continuance of care, Re-evaluation by your physician. Follow up: Emergency Department; When: As needed; Reason: Worsening of condition. snw
== END 2018-12-18 21:00 | disposition home or self-care (01) ==
LOC: ER 18:29
DX: N23 Unspecified renal colic (principal); E11.9 Type 2 diabetes mellitus without complications; E78.00 Pure hypercholesterolemia, unspecified
CPT/HCPCS: 74176; 76377; 99284

== ENCOUNTER 2019-05-23 13:49 | Emergency (ER) | payer OTHER ==
--- OUTSIDE RECORDS SUMMARY | 2019-05-23 13:51 | XMS REPORT ---
:1960 [facility] Address [address] [place] [address] Dr. [address] [place] [id number] Care Team Providers Name Role Phone Unavailable Unavailable Unavailable Problems This patient has no known problems. Allergies, Adverse Reactions, Alerts This patient has no known allergies or adverse reactions. Medications This patient has no known medications.
[2019-05-23 14:38] LABS: Absolute Lymphocytes (CBC) 1.8 K/uL (0.7-4.9); Basophils % 0.7 % (0-1.3); Hematocrit 36.9 % (39.6-49.0); Lymphocytes % 31.1 % (15.3-44.8); MPV 9.5 fL (7.6-11.3)
--- NOTE | 2019-05-23 14:56 | RAD REPORT ---
EXAM DESCRIPTION: RAD - Chest Single View - 05/23/2019 2:33 pm CLINICAL HISTORY: Chest pain COMPARISON: April 12 TECHNIQUE: AP portable chest image was obtained 1427 hours . FINDINGS: Lung volumes are low. No peripheral mass or consolidation. No failure or volume overload. Heart and vasculature are normal. No measurable pleural effusion and no pneumothorax. No acute bony a bnormality seen. No acute aortic findings suspected. IMPRESSION: No acute cardiopulmonary process.
[2019-05-23 15:09] LABS: ALT/SGPT 31 U/L (12-78); AST/SGOT 16 U/L (15-37); Albumin 3.7 g/dL (3.4-5.0); Alkaline Phosphatase 108 U/L (45-117); BUN Blood Urea Nitrogen 16 mg/dL (7-18); Bicarbonate 25 mmol/L (21-32); Bilirubin Direct 0.1 mg/dL (0-0.2); Bilirubin Total 0.3 mg/dL (0.2-1.0); Glucose Level 95 mg/dL (74-106); Lipase 132 U/L (73-393); Magnesium 2.1 mg/dL (1.8-2.4); NT PRO-BNP 15 pg/mL (<125); Potassium 4.3 mmol/L (3.5-5.1); Protein, Total 7.4 g/dL (6.4-8.2); Sodium Level 143 mmol/L (136-145); Troponin (Emerg Dept Use Only) < 0.02 ng/mL (0.0-0.045)
--- NOTE | 2019-05-23 15:14 | RAD REPORT ---
EXAM DESCRIPTION: US - Abdomen Exam Limited - 05/23/2019 2:45 pm CLINICAL HISTORY: ABD PAIN COMPARISON: Stone Protocol dated 12/18/2018 FINDINGS: Gallbladder is contracted. This accentuates wall thickness. No stones or sludge identifiab le. No pericholecystic fluid seen. No common duct stone or biliary tree dilatation identified. IMPRESSION: No stones or sludge seen within a contracted gallbladder. Contracted state accentuates gallbladder wall thickness.
[2019-05-23] MEDS ORDERED: MAGNE/ALUM HYDROXD 30 ML UCUP ONE (15:23)
[2019-05-23] MEDS ORDERED: LIDOCAINE VISCOUS 2% SOLN 15 ML UDC ONE (15:23)
--- NOTE | 2019-05-23 17:07 | ER ---
Nurse's Notes [facility] Name: Trever Jay Age: 59 yrs Sex: Male : 1960 Arrival Date: 05/23/2019 Time: 13:52 Bed 2 Private MD: Bhanu Kohler E Diagnosis: Chest pain, unspecified Presentation: 05/23 13:58 Presenting complaint: Patient states: intermittent midsternal chest pain that can last sv for about an hour and then goes away, states he thought it was indigestion but his medicine for that was not helping. Pain does not radiate. Transition of care: patient was not received from another setting of care. Onset of symptoms was May 2019. Risk Assessment: Do you want to hurt yourself or someone else? Patient reports no desire to harm self or others. Initial Sepsis Screen: Does the patient meet any 2 criteria? No. Patient's initial sepsis screen is negative. Does the patient have a suspected source of infection? No. Patient's initial sepsis screen is negative. Care prior to arrival: None. 13:58 Method Of Arrival: Wheelchair sv 13:58 Acuity: ANAMARIA 3 sv Triage Assessment: 14:00 General: Appears in no apparent distress. comfortable, Behavior is calm, cooperative, sv appropriate for age. Pain: Complains of pain in chest Pain does not radiate. Pain currently is 5 out of 10 on a pain scale. Neuro: Level of Consciousness is awake, alert, obeys commands. Respiratory: Respiratory effort is even, unlabored, Respiratory pattern is regular, symmetrical. Historical: - Allergies: 14:05 No Known Allergies; sv - PMHx: 14:05 Diabetes - NIDDM; Hepatitis; High Cholesterol; sv - PSHx: 14:05 Knee surgery; sv - Immunization history:: Adult Immunizations unknown. - Family history:: not pertinent. - Social history:: Smoking status: Patient/guardian denies using tobacco. - Ebola Screening: : No symptoms or risks identified at this time. - Hospitalizations: : No recent hospitalization is reported. Screenin:10 Abuse screen: Denies threats or abuse. Nutritional screening: No deficits noted. aa5 Tuberculosis screening: No symptoms or risk factors identified. Fall Risk None identified. Assessment: 14:10 General: Appears comfortable, Behavior is calm, cooperative. Pain: Complains of pain in aa5 mid-sternal area Pain does not radiate. Pain currently is 0 out of 10 on a pain scale. Quality of pain is described as sharp, Pain began 2-3 days ago. Is episodic, lasting a few minutes. Neuro: Level of Consciousness is awake, alert, obeys commands, Oriented to person, place, time, situation. Cardiovascular: Reports chest pain, Heart tones S1 S2 present Rhythm is regular. Respiratory: Airway is patent Respiratory effort is even, unlabored, Respiratory pattern is regular, symmetrical, Breath sounds are clear bilaterally. Denies cough, shortness of breath. GI: Abdomen is round Bowel sounds present X 4 quads. Abd is soft and non tender X 4 quads. Reports indigestion, Patient currently denies nausea, vomiting. : No signs and/or symptoms were reported regarding the genitourinary system. EENT: Reports "I got all my teeth removed about 1 week ago and I think I am taking antibiotics" . Derm: Skin is dry, Skin is normal, Skin temperature is warm. Musculoskeletal: Range of motion: intact in all extremities. 15:20 Reassessment: Pt resting in bed with eyes closed, respirations even and unlabored, skin aa5 is normal/warm/dry . 15:29 Reassessment: MD at bedside . aa5 16:07 Reassessment: Patient is alert, oriented x 3, equal unlabored respirations, skin aa5 warm/dry/pink. Repeat EKG and troponin completed. . 17:20 Reassessment: Patient is alert, oriented x 3, equal unlabored respirations, skin aa5 warm/dry/pink. Patient denies pain at this time. Vital Signs: 14:05 BP 131 / 82; Pulse 81; Resp 16; Pulse Ox 99% ; Weight 78.02 kg; Height 5 ft. 1 in. sv (154.94 cm); Pain 5/10; 14:10 Temp 98.0(TE); aa5 15:25 BP 122 / 89; Pulse 67; Resp 16 S; Pulse Ox 99% on R/A; Pain 0/10; aa5 17:00 BP 125 / 84; Pulse 69; Resp 16 S; Temp 97.8(TE); Pulse Ox 99% on R/A; Pain 0/10; aa5 14:05 Body Mass Index 32.50 (78.02 kg, 154.94 cm) sv ED Course: 13:52 Patient arrived in ED. mr 13:52 Bhanu Kohler MD is Private Physician. mr 14:01 Donny Camarillo MD is Attending Physician. rn 14:04 Yana Olsen, RN is Primary Nurse. aa5 14:05 Triage completed. sv 14:06 Arm band placed on. sv 14:10 Patient has correct armband on for positive identification. Placed in gown. Bed in low aa5 position. Call light in reach. Side rails up X2. telemetry monitor on. Pulse ox on. NIBP on. 14:10 EKG done, by central supply technician. reviewed by Donny Camarillo MD. aa5 14:18 Initial lab(s) drawn, by me, sent to lab. Inserted saline lock: 20 gauge in right aa5 antecubital area, using aseptic technique. Blood collected. 14:30 No provider procedures requiring assistance completed. Patient maintains SpO2 aa5 saturation greater than 95% on room air. 14:39 XRAY Chest (1 view) In Process Unspecified. EDMS 14:46 US Abdomen Limited In Process Unspecified. EDMS 15:53 EKG done, by central supply technician. reviewed by Donny Camarillo MD Repeat EKG. at1 17:20 IV discontinued, intact, bleeding controlled, No redness/swelling at site. Pressure aa5 dressing applied. Administered Medications: 15:27 Drug: GI Cocktail without - (Maalox Suspension 30 ml, Lidocaine Liquid 2 % 15 aa5 ml) Route: PO; Outcome: 17:07 Discharge ordered by MD. rn 17:20 Discharged to home via wheelchair. aa5 17:20 Condition: stable 17:20 Discharge instructions given to patient, Instructed on discharge instructions, follow up and referral plans. Demonstrated understanding of instructions, follow-up care. 17:26 Patient left the ED. hb Signatures: Dispatcher [employer] EDMS Ashley Marks RN RN sv Rivera, Mary mr Donny Camarillo MD MD rn Calderon, Audri, RN RN aa5 Ngozi Castro, balancer EKG Tat1 Ariela Akhtar RN RN hb Corrections: (The following items were deleted from the chart) 14:30 14:17 EKG done, by central supply technician. reviewed by Donny Camarillo MD at1 aa5 14:56 14:10 Pain: Complains of pain in mid-sternal area Pain does not radiate. Pain currently aa5 is 0 out of 10 on a pain scale. Quality of pain is described as sharp, Pain began Is episodic, lasting a few minutes. aa5
--- NOTE | 2019-05-23 17:08 | EDPHYS ---
Physician Documentation [facility] Name: Trever Jay Age: 59 yrs Sex: Male : 1960 Arrival Date: 05/23/2019 Time: 13:52 Bed 2 Private MD: Bhanu Kohler E ED Physician Donny Camarillo HPI: 05/23 14:12 This 59 yrs old Male presents to ER via Wheelchair with complaints of Chest rn Pain. 14:12 The patient or guardian reports chest pain that is located primarily in the substernal rn area, epigastric area. 14:12 Onset: this morning. The pain does not radiate. Associated signs and symptoms: rn Pertinent positives: abdominal pain, Pertinent negatives: cough, diaphoresis, near syncope, palpitations, recent travel, shortness of breath, syncope, vomiting. The chest pain is described as burning. Modifying factors: The symptoms are alleviated by nothing. the symptoms are aggravated by nothing. Severity of pain: At its worst the pain was moderate in the emergency department the pain has improved. The patient has not experienced similar symptoms in the past. Reports chest pain, began this morning, several episodes, each last about one hour, no fever/cough/sob, + upper abd pain, no vomiting/diarrhea. Reports burning pain. . Historical: - Allergies: 14:05 No Known Allergies; sv - PMHx: 14:05 Diabetes - NIDDM; Hepatitis; High Cholesterol; sv - PSHx: 14:05 Knee surgery; sv - Immunization history:: Adult Immunizations unknown. - Family history:: not pertinent. - Social history:: Smoking status: Patient/guardian denies using tobacco. - Ebola Screening: : No symptoms or risks identified at this time. - Hospitalizations: : No recent hospitalization is reported. ROS: 14:12 Constitutional: Negative for fever, chills, and weight loss, Eyes: Negative for injury, rn pain, redness, and discharge, Neck: Negative for injury, pain, and swelling, Cardiovascular: Negative for palpitations, and edema, Respiratory: Negative for cough, wheezing, and pleuritic chest pain, Abdomen/GI: Negative for nausea, vomiting, diarrhea, and constipation, MS/Extremity: Negative for injury and deformity, Skin: Negative for injury, rash, and discoloration, Neuro: Negative for headache, weakness, numbness, tingling, and seizure. Exam: 14:12 Constitutional: This is a well developed, well nourished patient who is awake, alert, rn and in no acute distress. Head/Face: Normocephalic, atraumatic. Cardiovascular: Regular rate and rhythm. No pulse deficits. Respiratory: No increased work of breathing, no retractions or nasal flaring. Abdomen/GI: soft, + ruq and epigastric abd tenderness, no rebound Back: No spinal tenderness. No costovertebral tenderness. Full range of motion. MS/ Extremity: Pulses equal, no cyanosis. Neuro: Awake and alert, GCS 15, oriented to person, place, time, and situation. 14:54 ECG was reviewed by the Attending Physician. rn Vital Signs: 14:05 BP 131 / 82; Pulse 81; Resp 16; Pulse Ox 99% ; Weight 78.02 kg; Height 5 ft. 1 in. sv (154.94 cm); Pain 5/10; 14:10 Temp 98.0(TE); aa5 15:25 BP 122 / 89; Pulse 67; Resp 16 S; Pulse Ox 99% on R/A; Pain 0/10; aa5 17:00 BP 125 / 84; Pulse 69; Resp 16 S; Temp 97.8(TE); Pulse Ox 99% on R/A; Pain 0/10; aa5 14:05 Body Mass Index 32.50 (78.02 kg, 154.94 cm) sv MDM: 14:01 Patient medically screened. rn 15:38 Differential diagnosis: acute myocardial infarction, acute pericarditis, coronary rn artery disease chest wall pain, cholecystitis, Cholelithiasis costochondritis, esophagitis, gastritis, gastroesophageal reflux disease (GERD), pancreatitis, peptic ulcer disease. Data reviewed: vital signs, nurses notes, lab test result(s), EKG, radiologic studies. ED course: Recommended admission for cardiology consultation and stress test, patient refuses, wants to go home to feed dogs, convinced him to stay for atleast repeat trop and ecg, and urged him to come back if continues or worsens. . 16:30 ED course: Pt states had a normal stress test, nuclear, this past September, no change in rn repeat ECG, if repeat trop neg, will dc home.. 17:06 Counseling: I had a detailed discussion with the patient and/or guardian regarding: the rn historical points, exam findings, and any diagnostic results supporting the discharge/admit diagnosis, lab results, the need for outpatient follow up, to return to the emergency department if symptoms worsen or persist or if there are any questions or concerns that arise at home. ED course: Repeat trop neg. . 05/23 14:09 Order name: Basic Metabolic Panel; Complete Time: 15:14 rn 05/23 14:09 Order name: CBC with Diff; Complete Time: 14:54 rn 05/23 14:09 Order name: LFT's; Complete Time: 15:14 rn 05/23 14:09 Order name: Magnesium; Complete Time: 15:14 rn 05/23 14:09 Order name: NT PRO-BNP; Complete Time: 15:14 rn 05/23 14:09 Order name: Troponin (emerg Dept Use Only); Complete Time: 15:14 rn 05/23 14:06 Order name: EKG; Complete Time: 14:06 sv 05/23 14:06 Order name: EKG - Nurse/Tech; Complete Time: 14:06 sv 05/23 14:09 Order name: XRAY Chest (1 view); Complete Time: 15:02 rn 05/23 14:09 Order name: Lipase; Complete Time: 15:14 rn 10 14:09 Order name: US Abdomen Limited; Complete Time: 15:25 rn 10 15:39 Order name: Troponin (emerg Dept Use Only); Complete Time: 17:06 rn 05/23 15:41 Order name: EKG; Complete Time: 15:41 rn 10 14:09 Order name: Cardiac monitoring; Complete Time: 14:28 rn 10 14:09 Order name: IV Saline Lock; Complete Time: 14:28 rn 10 14:09 Order name: Labs collected and sent; Complete Time: 14:28 rn 10 14:09 Order name: O2 Per Protocol; Complete Time: 14:28 rn 10 14:09 Order name: O2 Sat Monitoring; Complete Time: 14:28 rn 10 15:41 Order name: EKG - Nurse/Tech; Complete Time: 15:55 rn 10 16:25 Order name: Labs - recollect needed; Complete Time: 16:46 bd EC:54 Rate is 68 beats/min. Rhythm is regular. QRS [place] is Normal. TN interval is normal. QRS rn interval is normal. QT interval is normal. No Q waves. T waves are Normal. No ST changes noted. Clinical impression: Normal ECG. Interpreted by me. Reviewed by me. Administered Medications: 15:27 Drug: GI Cocktail without - (Maalox Suspension 30 ml, Lidocaine Liquid 2 % 15 aa5 ml) Route: PO; Disposition: 05/23/19 17:07 Discharged to Home. Impression: Chest pain, unspecified. - Condition is Stable. - Discharge Instructions: Nonspecific Chest Pain. - Medication Reconciliation Form, Thank You Letter, Antibiotic Education, Prescription Opioid Use form. - Follow up: Private Physician; When: As needed; Reason: Recheck today's complaints, Re-evaluation by your physician. - Problem is new. - Symptoms have improved. Signatures: Dispatcher [employer] EDMS Samantha Guzman Stephanie, RN RN Donny Camarillo MD MD rn Calderon, Audri, RN RN aa5 Ariela Akhtar RN RN hb Corrections: (The following items were deleted from the chart) 17:26 17:07 05/23/2019 17:07 Discharged to Home. Impression: Chest pain, unspecified. hb Condition is Stable. Forms are Medication Reconciliation Form, Thank You Letter, Antibiotic Education, Prescription Opioid Use. Follow up: Private Physician; When: As needed; Reason: Recheck today's complaints, Re-evaluation by your physician. Problem is new. Symptoms have improved. rn
--- NOTE | 2019-05-23 18:22 | EKG ---
Test Date: 2019-05-23 Test Time: 15:50:20 Marine Drafter: JINNY MEASUREMENT RESULTS: Intervals: Rate: 66 OR: 138 QRSD: 102 QT: 398 QTc: 417 [place]: P: -2 OR: 138 QRS: -17 T: 39 INTERPRETIVE STATEMENTS: Normal sinus rhythm Normal ECG Compared to ECG 05/23/2019 14:05:45 No significant changes Electronically Signed On 05-23-19 18:21:58 POWER SHOVEL OPERATOR HELPER by Chapin Moncada
--- NOTE | 2019-05-23 18:23 | EKG ---
Test Date: 2019-05-23 Test Time: 14:05:45 Dust Collector: JINNY MEASUREMENT RESULTS: Intervals: Rate: 68 WI: 154 QRSD: 94 QT: 392 QTc: 416 [place]: P: 24 WI: 154 QRS: -15 T: 41 INTERPRETIVE STATEMENTS: Normal sinus rhythm Normal ECG Compared to ECG 01/17/2018 17:07:00 No significant changes Electronically Signed On 05-23-19 18:22:07 CIVIL ENGINEERING PROJECT DESIGNER by Chapin Moncada
[2019-05-23 19:53] VITALS: O2SAT 99
[2019-05-23 19:54] VITALS: TEMP 98
[2019-05-23 19:56] VITALS: BP 122/89
== END 2019-05-23 17:26 | disposition home or self-care (01) ==
LOC: ER 13:49
DX: R07.9 Chest pain, unspecified (principal)
CPT/HCPCS: 36415; 71045; 76705; 80048; 80076; 83690; 83735; 83880; 84484; 85025; 93005; 99285

== ENCOUNTER 2020-08-02 11:18 | Emergency (ER) | payer OTHER ==
--- OUTSIDE RECORDS SUMMARY | 2020-08-02 11:21 | XMS REPORT | Continuity of Care Document ---
:1960 Author Organization [facility] t Address [address] [place] [address] Dr. Silva[address] [place] [address] Care Team Providers Name Role Phone Imelda Bui MD Attending Clinician Grzegorz BOLIVAR Attending Clinician Problems This patient has no known problems. Allergies, Adverse Reactions, Alerts This patient has no known allergies or adverse reactions. Medications This patient has no known medications. Procedures This patient has no known procedures. Encounters Start End Encounter Admission Attending Care Care Encounter Source Date/Time Date/Time Type Type Clinicians Facility Department ID 2019-02-01 2019-02-01 Emergency Rafita Bui [facility] [id number] 16:31:58 22:14:00 Corey Lantigua [id number] [place] [id number] [place] [id number] Results This patient has no known results.
--- NOTE | 2020-08-02 12:06 | RAD REPORT ---
EXAM DESCRIPTION: CT - Ct Stroke Brain Wo Cont - 08/02/2020 11:57 am CLINICAL HISTORY: LT SIDE WEAK Headache, drowsiness, CVA symptomology COMPARISON: Head Brain W/Wo Con dated 04/25/2019; HEAD BRAIN W O CONTRAST dated 01/12/2012 TECHNIQUE: All CT scans are performed using dose optimization technique as appropriate and may inclu de automated exposure control or mA/KV adjustment according to patient size. FINDINGS: No intracranial hemorrhage, hydrocephalus or extra-axial fluid collection.No areas of brai n edema or evidence of midline shift. The paranasal sinuses and mastoids are clear. The calvarium is intact. IMPRESSION: No acute intracranial abnormality. The findings were discussed with Kelly in the ER on 08/02/2020 at 11:55 a.m. by telephone.
[2020-08-02 12:24] LABS: Absolute Lymphocytes (CBC) 0.7 K/uL (0.7-4.9); Basophils % 0.4 % (0-1.3); Hematocrit 39.7 % (39.6-49.0); Lymphocytes % 12.7 % (15.3-44.8); MPV 8.8 fL (7.6-11.3); RBC Red Blood Cell Count 4.27 M/uL (4.33-5.43)
[2020-08-02 12:31] LABS: Protime INR 0.92
[2020-08-02 12:35] LABS: Potassium 4.1 mmol/L (3.5-5.1)
--- NOTE | 2020-08-02 15:29 | RAD REPORT ---
EXAM DESCRIPTION: Juliann Single View08/02/2020 3:17 pm CLINICAL HISTORY: Slurred speech and weakness COMPARISON: 2019 FINDINGS: The lungs appear clear of acute infiltrate. The heart is normal size IMPRESSION: No acute abnormalities displayed
--- NOTE | 2020-08-02 18:50 | RAD REPORT ---
EXAM DESCRIPTION: MRI - Brain W/Wo Cont - 08/02/2020 6:12 pm CLINICAL HISTORY: Slurred speech COMPARISON: August 02, [address] TECHNIQUE: Axial, sagittal, and coronal magnetic images of the brain were obtained. 19 cc MultiHance administered intravenously FINDINGS: Small area of abnormal signal within the left thalamus probably an old lacunar infarction. The ventricles are normal in caliber. Diffusion-weighted/ ADC mapping sequences do not demonstrate evidence of an acute infarction. No abnormal enhancement within the brain is seen. An extra-axial fluid collection is not noted. Fluid within the sinuses/mastoids is not seen IMPRESSION: No acute abnormality displayed
--- NOTE | 2020-08-02 18:57 | ER ---
Nurse's Notes [facility] Name: Trever Jay Age: 60 yrs Sex: Male : 1960 Arrival Date: 08/02/2020 Time: 11:20 Bed 16 Private MD: Bhanu Kohler E Diagnosis: Weakness;Superficial injury of head;Concussion;Renal Insufficiency Presentation: 08/02 11:35 Chief complaint: Patient states: "last night I couldn't talk and then when I did I aa5 started having slurred speech". Left-sided weakness noted, left arm drift noted. Slight slurred speech noted. 11:35 Onset of symptoms was July 2020. aa5 11:35 Acuity: ANAMARIA 2 aa5 11:35 Method Of Arrival: Ambulatory aa5 11:35 An acute neurological deficit is present. Pre-hospital glucose is not applicable to aa5 this patient. 12:10 Coronavirus screen: At this time, the client does not indicate any symptoms associated bp with coronavirus-19. Ebola Screen: No symptoms or risks identified at this time. Initial Sepsis Screen: Does the patient meet any 2 criteria? No. Patient's initial sepsis screen is negative. Does the patient have a suspected source of infection? No. Patient's initial sepsis screen is negative. Risk Assessment: Do you want to hurt yourself or someone else? Patient reports no desire to harm self or others. Triage Assessment: 12:10 The onset of the patients symptoms was August 01, 2020 at 19:00. General: Appears in bp no apparent distress. comfortable, Behavior is cooperative, appropriate for age, anxious. Pain: Denies pain. EENT: No deficits noted. Neuro: Level of Consciousness is awake, alert, obeys commands, Oriented to Appropriate for age Weakness in right Speech is slurred, Reports paresthesias in left arm. Cardiovascular: No deficits noted. Respiratory: No deficits noted. GI: No signs and/or symptoms were reported involving the gastrointestinal system. : No signs and/or symptoms were reported regarding the genitourinary system. Derm: No deficits noted. Musculoskeletal: No deficits noted. Stroke Activation: Symptom onset > 6 hours Physician: Stroke Attending; Name: ; Notified At: ; Arrived At: Physician: Chief Stroke Resident; Name: ; Notified At: ; Arrived At: Physician: Stroke Resident; Name: ; Notified At: ; Arrived At: Physician: ED Attending; Name: ; Notified At: ; Arrived At: Physician: ED Resident; Name: ; Notified At: ; Arrived At: Historical: - Allergies: 11:35 No Known Allergies; aa5 - PMHx: 11:35 Diabetes - NIDDM; Hepatitis; High Cholesterol; aa5 - PSHx: 11:35 Knee surgery; aa5 - Immunization history:: Adult Immunizations up to date. - Social history:: Smoking status: Patient denies any tobacco usage or history of. Screenin:10 Abuse screen: Denies threats or abuse. Denies injuries from another. Nutritional bp screening: No deficits noted. Tuberculosis screening: No symptoms or risk factors identified. Fall Risk None identified. Assessment: 11:42 Reassessment: Pt to CT via wheelchair, accompanied by me. aa5 12:10 VAN Scoring: Arm Drift: Minor drift Visual Disturbance: No visual disturbance noted. bp Aphasia: No aphasia noted. Neglect: No neglect noted. The patient has not been NPO before screening. The patient is alert, and able to follow commands. The patient exhibits slurred or garbled speech. The patient is not exhibiting difficulty speaking. The patient does not exhibit difficulty understanding words. The patient is able to swallow own secretions with no drooling or need for suction. Patient tolerated one teaspoon of water. No drooling, immediate coughing, gurgling, or clearing of the throat was noted. The patient tolerated 90mL of water. No drooling, immediate coughing, gurgling, or clearing of the throat was noted. The patient passed the bedside swallow screening. Oral medications may be given as ordered. Contact Physician for further diet orders. Provider notified of bedside swallow screening results: Rome Hendrix MD. T-PA (Activase) Screening: Contraindications: Patient reports onset of signs and symptoms of stroke greater than 6 hours ago: Yes. General: Appears in no apparent distress. comfortable. Pain: Denies pain. Neuro: Level of Consciousness is awake, alert, obeys commands, Oriented to Appropriate for age Speech is slurred. 13:00 Reassessment: No changes from previously documented assessment. Patient and/or family bp updated on plan of care and expected duration. Pain level reassessed. Patient is alert, oriented x 3, equal unlabored respirations, skin warm/dry/pink. PER RAD, NO BLEED NOTED. MRI PENDING. NO CHANGE IN NEURO STATUS. 14:00 Reassessment: Patient appears in no apparent distress at this time. No changes from bp previously documented assessment. Patient and/or family updated on plan of care and expected duration. Pain level reassessed. MRI PENDING. 14:41 Reassessment: Pt's called and states "he fell 2 nights ago and hit his head on the aa5 nightstand but the next day he didn't even remember that he had fallen out the bed". Pt's states "he also been falling because he's been unsteady on his feet and he has to use his cane all the time now when before he didn't have to use the cane at home".Dr. Hendrix was notified of pt's concerns. . 15:00 Reassessment: No changes from previously documented assessment. Patient and/or family bp updated on plan of care and expected duration. Pain level reassessed. Patient is alert, oriented x 3, equal unlabored respirations, skin warm/dry/pink. 17:00 Reassessment: PT TO MRI. bp 18:16 Reassessment: Patient appears in no apparent distress at this time. No changes from bp previously documented assessment. Patient and/or family updated on plan of care and expected duration. Pain level reassessed. Patient is alert, oriented x 3, equal unlabored respirations, skin warm/dry/pink. PT RETURNED FROM MRI. 19:09 Reassessment: PT D/C HOME AMBULATORY, DX WITH CONCUSSION AND SUPERFICIAL HEAD INJURY. bp Vital Signs: 12:10 BP 103 / 71; Pulse 68; Resp 16; Temp 98; Pulse Ox 100% ; bp 13:00 BP 111 / 77; Pulse 72; Resp 16; Temp 98; Pulse Ox 100% ; bp 14:00 BP 125 / 83; Pulse 63; Resp 16; Pulse Ox 100% ; bp 15:00 BP 133 / 83; Pulse 67; Resp 17; Pulse Ox 100% ; bp 16:00 BP 127 / 79; Pulse 64; Resp 16; Pulse Ox 100% ; bp 17:00 BP 121 / 67; Pulse 68; Resp 16; Pulse Ox 99% ; bp 18:16 BP 152 / 101; Pulse 64; Resp 17; Pulse Ox 100% ; bp 18:47 BP 131 / 79; Pulse 59; Resp 16; Pulse Ox 100% ; bp NIH Stroke Scale Scores: 12:10 NIHSS Score: 4 bp ED Course: 11:20 Patient arrived in ED. ag5 11:20 Bhanu Kohler MD is Private Physician. ag5 11:35 Arm band placed on. aa5 11:57 Ct Stroke Brain Wo Cont In Process Unspecified. EDMS 12:10 Rome Hendrix MD is Attending Physician. kdr 12:10 Patient has correct armband on for positive identification. Bed in low position. Call bp light in reach. Side rails up X2. 12:10 Initial lab(s) drawn, by me, sent to lab. aa5 12:10 Missed attempt(s): 20 gauge in left antecubital area. Bleeding controlled, band aid aa5 applied, catheter tip intact. 12:17 Alek Woods, RN is Primary Nurse. bp 12:26 Triage completed. aa5 15:17 Stroke CXR 1 View In Process Unspecified. EDMS 18:01 MRI - Brain W/Wo Cont In Process Unspecified. EDMS 18:56 Bhanu Kohler MD is Referral Physician. kdr 19:09 No provider procedures requiring assistance completed. IV discontinued, intact, bp bleeding controlled, No redness/swelling at site. Pressure dressing applied. Administered Medications: No medications were administered Point of Care Testing: Blood Glucose: 12:10 Blood Glucose: 88 mg/dL; aa5 Ranges: Outcome: 18:56 Discharge ordered by . kdr 19:09 Discharged to home ambulatory, with family. bp 19:09 Condition: stable 19:09 Discharge instructions given to patient, Instructed on discharge instructions, follow up and referral plans. Demonstrated understanding of instructions, follow-up care. 19:20 Patient left the ED. bp NIH Stroke Scale - NIH Stroke Score Date: 08/02/2020 Time: 12:10 Total Score = 4 1a. Level of Consciousness (LOC) - 0(Alert) 1b. Level of Consciousness (LOC) (Year \\T\\ Age) - 0(Both) 1c. LOC Commands (Open \\T\\ Closes Eyes/Director Nicu) - 0(Both) 2. Best Gaze (Lateral Gaze Paresis) - 0(Normal) 3. Visual Field Loss - 0(No visual loss) 4. Facial Palsy - 1(Minor Paralysis) 5a. Left Arm: Motor (10-second hold) - 1(Drift) 5b. Right Arm: Motor (10-second hold) - 0(No drift) 6a. Left Leg: Motor (5-second hold - always test supine) - 1(Drift) 6b. Right Leg: Motor (5-second hold - always test supine) - 0(No drift) 7. Limb Ataxia (finger/nose \\T\\ heel/major - test with eyes open) - 0(Absent) 8. Sensory Loss (pinprick arms/legs/face) - 0(Normal) 9. Best Language: Aphasia (description/naming/reading) - 0(No aphasia) 10. Dysarthria (speech clarity - read or repeat words) - 1(Mild to Moderate) 11. Extinction and Inattention (visual/tactile/auditory/spatial/personal) - 0(No abnormality) Initials: bp Signatures: Dispatcher [employer] EDMS Rome Hendrix MD MD [facility] Yana Olsen RN RN aa5 Alek Woods RN RN Priya Schwartz ag5 Corrections: (The following items were deleted from the chart) 12:31 12:05 Initial lab(s) drawn, by me, sent to lab. yecenia aa5 18:19 18:16 Pulse 64bpm; Resp 17bpm; Pulse Ox 100%; bp bp
--- NOTE | 2020-08-02 18:57 | EDPHYS ---
Physician Documentation [facility] Name: Trever Jay Age: 60 yrs Sex: Male : 1960 Arrival Date: 08/02/2020 Time: 11:20 Bed 16 Private MD: Bhanu Kohler E ED Physician Rome Hendrix HPI: 08/02 15:32 This 60 yrs old Male presents to ER via Ambulatory with complaints of Slurred kdr Speech, Weakness. 15:32 The patient presents to the emergency department with weakness of the left upper kdr extremity, that is mild, left lower extremity, that is mild, a speech or higher order brain function problem, aphasia, that is mild, difficulty standing, difficult walking, Seems to need a miko the last two days because he has been unsteady.. Onset: The symptoms/episode began/occurred Seems to have had ,mild symptoms for the past few days but worse last night with the speech difficulty and weakness on the left. Context: occurred at home, occurred while the patient was at rest. Associated signs and symptoms: Pertinent positives: weakness. Severity of symptoms: At their worst the symptoms were moderate severe incapacitating just prior to arrival, in the emergency department the symptoms have improved markedly. Patient's baseline: Neuro: alert and fully oriented, Motor: no deficits, Ambulation: walks without assistance, Speech: normal for age, The patient has a previous history of head injury, The patient's states that he has been falling more recently and a few nights ago hit his head on the bedside stand. She denies LOC. Current symptoms: Seems to be slight weak on the left but is able to ambulate wit a miko to the b[place]. The patient has not experienced similar symptoms in the past. The patient has not recently seen a physician. Historical: - Allergies: 11:35 No Known Allergies; aa5 - PMHx: 11:35 Diabetes - NIDDM; Hepatitis; High Cholesterol; aa5 - PSHx: 11:35 Knee surgery; aa5 - Immunization history:: Adult Immunizations up to date. - Social history:: Smoking status: Patient denies any tobacco usage or history of. ROS: 16:50 Constitutional: Negative for fever, chills, and weight loss, Eyes: Negative for injury, kdr pain, redness, and discharge, ENT: Negative for injury, pain, and discharge, Neck: Negative for injury, pain, and swelling, Cardiovascular: Negative for chest pain, palpitations, and edema, Respiratory: Negative for shortness of breath, cough, wheezing, and pleuritic chest pain, Abdomen/GI: Negative for abdominal pain, nausea, vomiting, diarrhea, and constipation, Back: Negative for injury and pain, : Negative for injury, bleeding, discharge, and swelling, MS/Extremity: Negative for injury and deformity, Skin: Negative for injury, rash, and discoloration, Psych: Negative for depression, anxiety, suicide ideation, homicidal ideation, and hallucinations, Allergy/Immunology: Negative for hives, rash, and allergies, Endocrine: Negative for neck swelling, polydipsia, polyuria, polyphagia, and marked weight changes, Hematologic/Lymphatic: Negative for swollen nodes, abnormal bleeding, and unusual bruising. 16:50 Neuro: Positive for gait disturbance, speech changes, weakness, of the left arm and left leg, Negative for altered mental status, headache, hearing loss, loss of consciousness, numbness, seizure activity, syncope, tingling, tinnitus, tremor. Exam: 12:35 ECG was reviewed by the Attending Physician. kdr 16:50 Constitutional: This is a well developed, well nourished patient who is awake, alert, kdr and in no acute distress. Head/Face: Normocephalic, atraumatic. Eyes: Pupils equal round and reactive to light, extra-ocular motions intact. Lids and lashes normal. Conjunctiva and sclera are non-icteric and not injected. Cornea within normal limits. Periorbital areas with no swelling, redness, or edema. Neck: Trachea midline, no thyromegaly or masses palpated, and no cervical lymphadenopathy. Supple, full range of motion without nuchal rigidity, or vertebral point tenderness. No Meningismus. Chest/axilla: Normal chest wall appearance and motion. Nontender with no deformity. No lesions are appreciated. Cardiovascular: Regular rate and rhythm with a normal S1 and S2. No gallops, murmurs, or rubs. Normal PMI, no JVD. No pulse deficits. Respiratory: Lungs have equal breath sounds bilaterally, clear to auscultation and percussion. No rales, rhonchi or wheezes noted. No increased work of breathing, no retractions or nasal flaring. Abdomen/GI: Soft, non-tender, with normal bowel sounds. No distension or tympany. No guarding or rebound. No evidence of tenderness throughout. Back: No spinal tenderness. No costovertebral tenderness. Full range of motion. Skin: Warm, dry with normal turgor. Normal color with no rashes, no lesions, and no evidence of cellulitis. MS/ Extremity: Pulses equal, no cyanosis. Neurovascular intact. Full, normal range of motion. Psych: Awake, alert, with orientation to person, place and time. Behavior, mood, and affect are within normal limits. 16:50 Neuro: Orientation: appropriate for stated age, Mentation: appropriate for stated age. 16:55 Neuro: Motor: moves all fours, Gait: is unsteady, shuffling, Walks with a cane. kdr Vital Signs: 12:10 BP 103 / 71; Pulse 68; Resp 16; Temp 98; Pulse Ox 100% ; bp 13:00 BP 111 / 77; Pulse 72; Resp 16; Temp 98; Pulse Ox 100% ; bp 14:00 BP 125 / 83; Pulse 63; Resp 16; Pulse Ox 100% ; bp 15:00 BP 133 / 83; Pulse 67; Resp 17; Pulse Ox 100% ; bp 16:00 BP 127 / 79; Pulse 64; Resp 16; Pulse Ox 100% ; bp 17:00 BP 121 / 67; Pulse 68; Resp 16; Pulse Ox 99% ; bp 18:16 BP 152 / 101; Pulse 64; Resp 17; Pulse Ox 100% ; bp 18:47 BP 131 / 79; Pulse 59; Resp 16; Pulse Ox 100% ; bp NIH Stroke Scale Scores: 12:10 NIHSS Score: 4 bp MDM: 18:56 Patient medically screened. kdr 18:58 Data reviewed: vital signs, nurses notes, lab test result(s), radiologic studies. kdr Counseling: I had a detailed discussion with the patient and/or guardian regarding: the historical points, exam findings, and any diagnostic results supporting the discharge/admit diagnosis, lab results, radiology results, the need for outpatient follow up. 08/02 12:12 Order name: Basic Metabolic Panel; Complete Time: 16:15 kdr 08/02 12:12 Order name: CBC with Diff; Complete Time: 16:15 kdr 08/02 11:55 Order name: Ct Stroke Brain Wo Cont; Complete Time: 16:15 EDMS 08/02 12:12 Order name: Protime (+inr); Complete Time: 16:15 [facility] 08/02 12:12 Order name: Ptt, Activated; Complete Time: 16:15 [facility] 08/02 12:23 Order name: Glucose, Ancillary Testing; Complete Time: 16:15 EDMS 08/02 12:12 Order name: Stroke CXR 1 View; Complete Time: 16:15 [facility] 08/02 12:12 Order name: EKG; Complete Time: 12:12 [facility] 08/02 12:12 Order name: Accucheck; Complete Time: 12: kdr 08/02 12:12 Order name: Cardiac monitoring; Complete Time: : [facility] 08/02 12:12 Order name: EKG - Nurse/Tech; Complete Time: : [facility] 08/02 12:12 Order name: IV Saline Lock; Complete Time: 12: kdr 08/02 12:34 Order name: MRI - Brain W/Wo Cont; Complete Time: 18:52 [facility] 08/02 12:12 Order name: Labs collected and sent; Complete Time: : [facility] 08/02 12:12 Order name: NPO; Complete Time: 12: kdr 08/02 12:12 Order name: O2 Per Protocol; Complete Time: : [facility] 08/02 12:12 Order name: O2 Sat Monitoring; Complete Time: 12:18 kdr 08/02 12:12 Order name: Stroke Swallow Screen; Complete Time: 12:18 kdr EC:35 Rate is 72 beats/min. Rhythm is regular, Sinus Rhythm with No ectopy. QRS [place] is kdr Normal. IA interval is normal. QRS interval is normal. QT interval is normal. Clinical impression: NSR w/ Non-specific ST/T Changes. Administered Medications: No medications were administered Point of Care Testing: Blood Glucose: 12:10 Blood Glucose: 88 mg/dL; aa5 Ranges: Critical Glucose Levels:Adult <50 mg/dl or >400 mg/dl <40 mg/dl or >180 mg/dl Disposition: 08/02/20 18:56 Discharged to Home. Impression: Weakness, Superficial injury of head, Concussion, Renal Insufficiency. - Condition is Stable. - Discharge Instructions: Weakness, Aexb-rl-Bogg, Head Injury, Adult, Tczn-lj-Myhc. - Medication Reconciliation Form, Thank You Letter form. - Follow up: Bhanu Kohler MD; When: 2 - 3 days; Reason: If symptoms return, Further diagnostic work-up, Recheck today's complaints, Continuance of care, Re-evaluation by your physician. - Problem is new. - Symptoms have improved. NIH Stroke Scale - NIH Stroke Score Date: 08/02/2020 Time: 12:10 Total Score = 4 1a. Level of Consciousness (LOC) - 0(Alert) 1b. Level of Consciousness (LOC) (Year \T\ Age) - 0(Both) 1c. LOC Commands (Open \T\ Closes Eyes/Tearoom Host/Hostess) - 0(Both) 2. Best Gaze (Lateral Gaze Paresis) - 0(Normal) 3. Visual Field Loss - 0(No visual loss) 4. Facial Palsy - 1(Minor Paralysis) 5a. Left Arm: Motor (10-second hold) - 1(Drift) 5b. Right Arm: Motor (10-second hold) - 0(No drift) 6a. Left Leg: Motor (5-second hold - always test supine) - 1(Drift) 6b. Right Leg: Motor (5-second hold - always test supine) - 0(No drift) 7. Limb Ataxia (finger/nose \T\ heel/major - test with eyes open) - 0(Absent) 8. Sensory Loss (pinprick arms/legs/face) - 0(Normal) 9. Best Language: Aphasia (description/naming/reading) - 0(No aphasia) 10. Dysarthria (speech clarity - read or repeat words) - 1(Mild to Moderate) 11. Extinction and Inattention (visual/tactile/auditory/spatial/personal) - 0(No abnormality) Initials: bp Signatures: Dispatcher [employer] [facility] Rome Hendrix MD MD kdr Yana Olsen, RN RN aa5 Alek Woods, RN RN bp Corrections: (The following items were deleted from the chart) 12:19 12:12 CT-STROKE BRAIN W/O CONTRAST+CT.RAD.EMILYZ ordered. [facility] 18:58 18:56 08/02/2020 18:56 Discharged to Home. Impression: Weakness; Superficial kdr injury of head; Concussion. Condition is Stable. Forms are Medication Reconciliation Form, Thank You Letter, Antibiotic Education, Prescription Opioid Use. Follow up: Bhanu Kohler; When: 2 - 3 days; Reason: If symptoms return, Further diagnostic work-up, Recheck today's complaints, Continuance of care, Re-evaluation by your physician. Problem is new. Symptoms have improved. kdr 19:20 18:58 08/02/2020 18:56 Discharged to Home. Impression: Weakness; Superficial bp injury of head; Concussion; Renal Insufficiency. Condition is Stable. Discharge Instructions: Weakness, Vukf-fl-Mmus, Head Injury, Adult, Krwv-dd-Zlyo. Forms are Medication Reconciliation Form, Thank You Letter. Follow up: Bhanu Kohler; When: 2 - 3 days; Reason: If symptoms return, Further diagnostic work-up, Recheck today's complaints, Continuance of care, Re-evaluation by your physician. Problem is new. Symptoms have improved. kdr
[2020-08-02 19:45] VITALS: TEMP 98
[2020-08-02 19:57] VITALS: O2SAT 100
[2020-08-02 19:59] VITALS: BP 131/79
== END 2020-08-02 19:20 | disposition home or self-care (01) ==
LOC: ER 11:18
DX: S06.0X9A Concussion with loss of consciousness of unspecified duration, initial encounter (principal); N28.9 Disorder of kidney and ureter, unspecified; R29.704 NIHSS score 4; W01.190A Fall on same level from slipping, tripping and stumbling with subsequent striking against furniture, initial encounter; Y93.9 Activity, unspecified; Y92.013 Bedroom of single-family (private) house as the place of occurrence of the external cause
CPT/HCPCS: 85025; 80048; 36415; 85610; 82947; 85730; 70450; 71045; 70553; 99283; A9577

== ENCOUNTER 2020-09-08 15:08 | Inpatient (IN) | payer OTHER ==
--- OUTSIDE RECORDS SUMMARY | 2020-09-08 15:10 | XMS REPORT | Continuity of Care Document ---
:1960 Author Organization [facility] t Address [address] [place] [address] Dr. Silva. [address] [place] [address] Care Team Providers Name Role Phone Imelda [...] Department ID 2019-02-01 2019-02-01 Emergency Rafita Bui [facility] [id number] 16:31:58 22:14:00 Corey Lantigua [id number] [place] [id number] [place] [phone] [id number] Results This patient has no known results.
[2020-09-08] MEDS ORDERED: NA CHLORIDE 0.9% 2,000 ML ONE (15:42)
[2020-09-08 16:06] LABS: Absolute Lymphocytes (CBC) 0.3 K/uL (0.7-4.9); Basophils % 0.1 % (0-1.3); Hematocrit 37.7 % (39.6-49.0); Lymphocytes % 2.1 % (15.3-44.8); MPV 9.9 fL (7.6-11.3); RBC Red Blood Cell Count 3.89 M/uL (4.33-5.43)
[2020-09-08 16:16] LABS: Protime INR 0.93
--- NOTE | 2020-09-08 16:26 | RAD REPORT ---
EXAM DESCRIPTION: CT - Head C Spine Cap Wo Con - 09/08/2020 4:00 pm TECHNIQUE: Computed axial tomography of the head and cervical spine was obtained. Coronal and sagitt al reconstruction was performed Computed axial tomography of the chest, abdomen and pelvis was obtained. Contrast was not requested. All CT scans are performed using dose optimization technique as appropriate and may include automated exposure control or mA/KV adjustment according to patient size. CLINICAL HISTORY: Head and neck injury with chest and abdominal pain status post fall COMPARISON: CT 2019 FINDINGS: An intracranial bleed is not seen. The ventricles are normal in caliber. An extra-axial fluid collection is not noted. . Fluid within the sinuses/mastoids is not seen. A cervical fracture is not seen. No dislocation is noted. The evaluation of mediastinum, santana, vessels, solid organs and bowel are limited secondary to the lac k of contrast administration. A mediastinal hematoma is not noted. A pleural effusion is not seen. A lung contusion is not present. The liver,spleen, pancreas, adrenals,kidneys and bladder do not demonstrate traumatic injury. Small inguinal hernias contain fat IMPRESSION: 1. No acute intracranial abnormality is seen. 2. A cervical fracture is not visualized. If the patient continues have symptoms to suggest intracran ial/spinal cord pathology MRI be recommended 3. No traumatic abnormality involving the chest/abdomen/pelvis.
--- NOTE | 2020-09-08 16:27 | RAD REPORT ---
EXAM DESCRIPTION: Juliann Single View09/08/2020 4:04 pm CLINICAL HISTORY: Chest pain COMPARISON: July 2020 FINDINGS: The lungs appear clear of acute infiltrate. The heart is normal size. Old left clavicular fracture IMPRESSION: No acute abnormalities displayed
[2020-09-08] MEDS ORDERED: PIPER/TAZO/NS 3.375gm 0 GM/0 ML BAG ONE (16:42)
[2020-09-08] MEDS ORDERED: PIPER/TAZO/NS 3.375gm 3.375 GM/100 ML BAG ONE (16:46)
[2020-09-08 16:54] LABS: ALT/SGPT 32 U/L (12-78); AST/SGOT 27 U/L (15-37); Albumin 3.6 g/dL (3.4-5.0); Alkaline Phosphatase 98 U/L (45-117); BUN Blood Urea Nitrogen 104 mg/dL (7-18); Bilirubin Direct 0.4 mg/dL (0-0.2); Bilirubin Total 0.8 mg/dL (0.2-1.0); Glucose Level 171 mg/dL (74-106); Lipase 307 U/L (73-393); NT PRO-BNP 8201 pg/mL (<125); Protein, Total 7.7 g/dL (6.4-8.2); Sodium Level 132 mmol/L (136-145); Troponin (Emerg Dept Use Only) < 0.02 ng/mL (0.0-0.045)
[2020-09-08 16:55] LABS: Blood Morphology Comment NOT SEEN (NOT SEEN); Platelet Estimate ADEQ; White Blood Cell Scan OK (OK)
[2020-09-08 16:56] LABS: Creatine Phosphokinase 1869 U/L (39-308)
[2020-09-08 16:57] LABS: Bicarbonate 7 mmol/L (21-32); Potassium 7.4 mmol/L (3.5-5.1)
--- NOTE | 2020-09-08 17:11 | EDPHYS ---
Physician Documentation [facility] Name: Trever Jay Age: 60 yrs Sex: Male : 1960 Arrival Date: 09/08/2020 Time: 15:12 Bed 3 Private MD: ED Physician Donny Camarillo HPI: 09/08 15:20 This 60 yrs old Male presents to ER via EMS with complaints of Fall Injury, rn AMS. 15:21 Details of fall: The patient fell from an upright position. Onset: The symptoms/episode rn began/occurred at an unknown time. Associated injuries: The patient sustained injury to the head, upper back injury, injury to the low back, injury to the chest. Severity of symptoms: At their worst the symptoms were moderate, in the emergency department the symptoms have improved. It is unknown whether or not the patient has had similar symptoms in the past. The patient has not recently seen a physician. Per EMS, found him on ground in garage, assumes fell, has been falling a lot lately for unknown reason, does not recall how or why he fell today, unsure when it happened, unwitnessed. Has been seen before for fall/concussion. Reports generalized weakness, worse in legs, and at times has trouble transferring. No fever for EMS, normal glucose. Pt reports "pain all over". Denies chest pain/abd pain. Per EMS, family states not eating for 3-4 days. Denies drug use.. Historical: - Allergies: 15:15 No Known Allergies; sv - PMHx: 15:15 Diabetes - NIDDM; Hepatitis; High Cholesterol; sv - PSHx: 15:15 Knee surgery; sv - Immunization history:: Adult Immunizations up to date. - Family history:: not pertinent. - Social history:: Smoking status: Patient denies any tobacco usage or history of. - Hospitalizations: : No recent hospitalization is reported. ROS: 15:24 Constitutional: Negative for fever, chills, and weight loss, Eyes: Negative for injury, rn pain, redness, and discharge, Neck: Negative for injury, pain, and swelling, Cardiovascular: Negative for palpitations, and edema, Respiratory: Negative for wheezing, and pleuritic chest pain, Abdomen/GI: Negative for abdominal pain, nausea, vomiting, diarrhea, and constipation, Back: + back pain MS/Extremity: Negative for injury and deformity, Skin: Negative for injury, rash, and discoloration, Neuro: Negative for numbness, tingling, and seizure. Exam: 15:24 Constitutional: This is a well developed, well nourished patient who is awake, answers rn all questions to some extent, not expressing linear thought process Head/Face: Normocephalic, atraumatic. Eyes: Periorbital areas with no swelling, redness, or edema. ENT: dry MM Neck: NO midline tenderness Chest/axilla: + bilateral rib tenderness on lateral chest, no contusion/ecchymosis/crepitus Cardiovascular: Regular rate and rhythm. No pulse deficits. Respiratory: + mild tachypnea, no retractions, diminished at bases but equal Abdomen/GI: soft, non-tender Back: No spinal tenderness. Skin: Warm, dry MS/ Extremity: Pulses equal, no cyanosis. Neurovascular intact. Full, normal range of motion. Equal circumference. Neuro: Awake, GCS 15, oriented to person, place, and situation. Cranial nerves II-XII grossly intact. Motor strength 4/5 bilateral upper ext, 4+/5 bilateral lower ext. Sensory grossly intact. Vital Signs: 15:15 BP 108 / 60; Pulse 99; Resp 13; Temp 97.8(A); sv 17:46 BP 108 / 60; Pulse 95; Resp 20; Temp 97.5(TE); Pulse Ox 100% on Nebulizer Mask; ss 19:09 BP 91 / 58; Pulse 98; Resp 22; Pulse Ox 99% on 2 lpm NC; ss 19:45 BP 99 / 68; Pulse 97; Resp 21; Pulse Ox 97% on R/A; lp1 Phoenix Coma Score: 15:15 Eye Response: spontaneous(4). Verbal Response: confused(4). Motor Response: obeys sv commands(6). Total: 14. 16:43 Eye Response: spontaneous(4). Verbal Response: confused(4). Motor Response: obeys ss commands(6). Total: 14. Trauma Score (Adult): 15:15 Eye Response: spontaneous(1); Verbal Response: confused(1); Motor Response: obeys sv commands(2); Systolic BP: > 89 mm Hg(4); Respiratory Rate: 10 to 29 per min(4); Phoenix Score: 14; Trauma Score: 12 16:43 Eye Response: spontaneous(1); Verbal Response: confused(1); Motor Response: obeys ss commands(2); Systolic BP: > 89 mm Hg(4); Respiratory Rate: 10 to 29 per min(4); Matt Score: 14; Trauma Score: 12 MDM: 15:14 Patient medically screened. rn 16:35 ED course: Elevated ammonia, patient denies known liver problems, denies liver rn problems, no known cirrhosis, only distant hx of hepatitis. . 17:01 ED course: here, states not eating/drinking for atleast 4 days with decreased rn urinary output. Pt with elevated creatinine, + hyperkalemia, will temporize with medication, admit to dr. Stark, ICU, with consultation for emergent dialysis for hyperkalemia and acidosis. . 17:08 ED course: Consulted with Dr. Stark, will see patient, requests 3 amps bicarb, and rn consultation with nephrology. Paging Dr. Nuñez through answering service since [facility] does not have her cell number to contact me directly. . 17:15 ED course: Consulted with Dr. Nuñez, states will call out for dialysis, requests gen rn surgeon consulted for temporary dialysis catheter placement, spoke with Celine Bacon, states will be here in [address] catheter[address] . 17:16 Differential diagnosis: closed head injury, sepsis, kidney failure, acidosis, rn rhabdomyolysis. Data reviewed: vital signs, nurses notes, lab test result(s), EKG, radiologic studies, CT scan, plain films, and as a result, I will admit patient. Counseling: I had a detailed discussion with the patient and/or guardian regarding: the historical points, exam findings, and any diagnostic results supporting the discharge/admit diagnosis, lab results, radiology results, the need for further work-up and treatment in the hospital. Admission orders: after a detailed discussion of the patient's condition and case, the admit orders are written by me. 17:31 ED course: Dr. Stark evaluated patient, states thinks can hold off on dialysis for rn now, plans to give bicarb, fluids, lasix, and recheck, requests Celine Bacon be called off and does not want dialysis catheter placed at this time. Will call back Dr. Nuñez and consult with her. Dr. Stark spoke with Celine Nuñez, final decision is to place catheter afterall and order emergent dialysis. Dr. Bacon updated, is on his way to place catheter. . 09/08 15:17 Order name: Basic Metabolic Panel rn 09/08 15:17 Order name: CBC with Diff rn 09/08 15:17 Order name: Type And Screen rn 09/08 15:17 Order name: Blood Culture Adult (2) rn 09/08 15:17 Order name: CPK rn 09/08 15:17 Order name: Lactate rn 09/08 15:17 Order name: LFT's rn 09/08 15:17 Order name: Lipase rn 09/08 15:17 Order name: Procalcitonin rn 09/08 15:17 Order name: Protime (+inr) rn 09/08 15:17 Order name: Ptt, Activated; Complete Time: 16:19 09/08 15:17 Order name: Troponin (emerg Dept Use Only); Complete Time: 17:01 rn 09/08 15:17 Order name: Urine Microscopic Only rn 09/08 15:18 Order name: Basic Metabolic Panel; Complete Time: 17:01 EDPA 09/08 15:18 Order name: CBC with Automated Diff; Complete Time: 16:57 EDPA 09/08 15:18 Order name: Type and Screen; Complete Time: 16:52 EDPA 09/08 15:18 Order name: Blood Culture [facility] 09/08 15:18 Order name: Creatine Phosphokinase; Complete Time: 17:01 EDPA 09/08 15:18 Order name: Lactate; Complete Time: 16:19 EDPA 09/08 15:18 Order name: Liver (Hepatic) Function; Complete Time: 17:01 EDPA 09/08 15:18 Order name: Lipase; Complete Time: 17:01 EDPA 09/08 15:18 Order name: Procalcitonin EDPA 09/08 15:18 Order name: Protime (+INR); Complete Time: 16:19 EDPA 09/08 15:23 Order name: Urine Drug Screen rn 09/08 15:23 Order name: ETOH Level rn 09/08 15:24 Order name: Urine Drug Screen [facility] 09/08 15:24 Order name: Alcohol Serum/Plasma; Complete Time: 16:43 EDPA 09/08 15:26 Order name: AMMONIA; Complete Time: 16:19 ss 09/08 15:17 Order name: XRAY Chest (1 view); Complete Time: 16:28 rn 09/08 15:17 Order name: Labs collected and sent; Complete Time: 17:05 rn 09/08 15:17 Order name: Accucheck; Complete Time: 17:05 rn 09/08 15:17 Order name: Cardiac monitoring; Complete Time: 15:36 rn 09/08 15:43 Order name: Head C Spine Cap Wo Con; Complete Time: 16:28 EDPA 09/08 15:58 Order name: NT PRO-BNP; Complete Time: 17:01 [facility] 09/08 16:55 Order name: CBC Smear Scan; Complete Time: 16:57 [facility] 09/08 17:08 Order name: Urine Dipstick--Ancillary (enter results) 09/08 17:20 Order name: SARS-COV-2 RT PCR [facility] 09/08 17:41 Order name: Basic Metabolic Panel [facility] 09/08 17:41 Order name: Comprehensive Metabolic Panel [facility] 09/08 17:41 Order name: Comprehensive Metabolic Panel [facility] 09/08 17:41 Order name: CONS Physician Consult [facility] 09/08 17:41 Order name: Renal [facility] 09/08 17:41 Order name: CBC with Automated Diff [facility] 09/08 17:41 Order name: CBC with Automated Diff [facility] 09/08 17:42 Order name: Creatine Phosphokinase [facility] 09/08 18:02 Order name: CREATININE WHOLE BLOOD [facility] 09/08 19:35 Order name: Lactate Sepsis 2 HR Follow-up [facility] 09/08 15:17 Order name: EKG - Nurse/Tech; Complete Time: 17:05 rn 09/08 15:17 Order name: IV Saline Lock - Large Bore; Complete Time: 15:36 rn 09/08 15:17 Order name: O2 Per Protocol; Complete Time: 15:36 rn 09/08 15:17 Order name: O2 Sat Monitoring; Complete Time: 15:36 rn 09/08 15:17 Order name: Urine Dipstick-Ancillary (obtain specimen); Complete Time: 17:06 rn Administered Medications: 15:53 Drug: NS 0.9% 1000 ml Route: IV; Rate: 1000 ml; Site: left upper arm; ss 17:45 Follow up: IV Status: Completed infusion; IV Intake: 1000ml ss 16:48 Drug: Zosyn 3.375 grams Route: IVPB; Infused Over: 60 mins; Site: left upper arm; hb 17:45 Follow up: IV Status: Completed infusion; IV Intake: 100ml ss 17:04 Drug: NS 0.9% 1000 ml Route: IV; Rate: 1000 ml; Site: left upper arm; ss 19:45 Follow up: IV Status: Infusion continued upon admission lp1 17:19 Drug: Sodium Bicarbonate 1 amp Route: IVP; Site: left antecubital; ss 19:01 Follow up: Response: No adverse reaction; No change in condition ss 17:19 Drug: Sodium Bicarbonate 1 amp Route: IVP; Site: left antecubital; ss 19:01 Follow up: Response: No adverse reaction ss 19:01 Follow up: Response: No adverse reaction; No change in condition ss 17:21 Drug: Sodium Bicarbonate 50 mEq Route: IVP; Site: left antecubital; ss 19:01 Follow up: Response: No adverse reaction; No change in condition ss 17:25 Drug: D50W 50 ml Route: IVP; Site: left antecubital; ss 19:02 Follow up: Response: No adverse reaction; No change in condition ss 17:26 Drug: Insulin Regular Human 5 units {Co-Signature: hb (Ariela Akhatr RN).} Route: IVP; ss Site: left antecubital; 19:02 Follow up: Response: No adverse reaction; No change in condition ss 17:27 Drug: Calcium Gluconate 2 grams {Note: To be Given over [address] Camarillo.} ss Route: IVPB; Infused Over: 60 mins; Site: left antecubital; 17:45 Follow up: IV Status: Completed infusion ss 17:29 Drug: Albuterol 2.5 mg Route: Inhalation; ss 17:29 Drug: Kayexalate 30 grams Route: PO; ss 19:02 Follow up: Response: No adverse reaction; No change in condition ss 17:29 Not Given (Duplicate Order): Sodium Bicarbonate 1 amp IVP once; (50 mL); equals 50 mEq ss Disposition: 09/08/20 17:11 Hospitalization ordered by Miryam Stark for Inpatient Admission. Preliminary diagnosis are Altered mental status, unspecified, Hyperkalemia, Acute kidney failure, Acidosis. - Bed requested for Intensive Care Unit. - Status is Inpatient Admission. bb - Condition is Fair. - Problem is new. - Symptoms have improved. Critical care time excluding procedures: 17:16 Critical care time: Bedside Care: 25 minutes, Consultation: 10 minutes, Family rn Intervention: 5 minutes. Total time: 40 minutes Signatures: Dispatcher [employer] EDPA Ashley Marks RN Radha Green RN Isi Ojeda RN RN bb Nieto, Roman, MD MD rn Smirch, Shelby, RN RN ss Baxter, Heather, RN RN hb Shabana Vazquez RN lp1 Ariela Akhtar RN hb Corrections: (The following items were deleted from the chart) 15:25 15:24 Constitutional: Negative for fever, chills, and weight loss, Eyes: Negative for rn injury, pain, redness, and discharge, Neck: Negative for injury, pain, and swelling, Cardiovascular: Negative for palpitations, and edema, Respiratory: Negative for wheezing, and pleuritic chest pain, Abdomen/GI: Negative for abdominal pain, nausea, vomiting, diarrhea, and constipation, MS/Extremity: Negative for injury and deformity, Skin: Negative for injury, rash, and discoloration, Neuro: Negative for numbness, tingling, and seizure, rn 15:43 15:18 Head C Spine CAP W Con+CT.RAD.BRZ ordered. EDPA EDMS 15:57 15:19 PROBNP+C.LAB.BRZ ordered. EDPA EDMS 16:35 15:19 CORONAVIRUS+MR.LAB.BRZ ordered. EDPA EDMS 17:34 17:31 ED course: Dr. Stark spoke with Celine Nuñez, final decision is to place catheter saroj bynum and order emergent dialysis. Dr. Bacon updated, is on his way to place catheter. . rn 19:06 17:11 Hospitalization Ordered by Miryam Stark MD for Inpatient Admission. Preliminary mw diagnosis is Altered mental status, unspecified; Hyperkalemia; Acute kidney failure; Acidosis. Bed requested for Intensive Care Unit. Status is Inpatient Admission. Condition is Fair. Problem is new. Symptoms have improved. rn 20:03 19:06 09/08/2020 17:11 Hospitalization Ordered by Miryam Stark MD for Inpatient bb Admission. Preliminary diagnosis is Altered mental status, unspecified; Hyperkalemia; Acute kidney failure; Acidosis. Bed requested for Intensive Care Unit. Status is Inpatient Admission. Condition is Fair. Problem is new. Symptoms have improved. mw
--- NOTE | 2020-09-08 17:11 | ER ---
Nurse's Notes [facility] Name: Trever Jay Age: 60 yrs Sex: Male : 1960 Arrival Date: 09/08/2020 Time: 15:12 Bed 3 Private MD: Diagnosis: Altered mental status, unspecified;Hyperkalemia;Acute kidney failure;Acidosis Presentation: 09/08 15:12 Chief complaint: EMS states: s/p fall and hit his head on the ground about 45 mins ago. sv Initial BP was 80/50 HR-77 BS-120. EMS reports it appeared like he was posturing initially. Pt is currently hallucinating and confused. Care prior to arrival: IV initiated. 22 GA, in the left forearm. Mechanism of Injury: Fall unknown. Trauma event details: Injury occurred in the [facility], Injury occurred: at home. Injury occurred: September 08, 2020. 15:12 Acuity: ANAMARIA 2 sv 15:12 Method Of Arrival: EMS: [facility] sv 15:12 Coronavirus screen: Client denies travel out of the [place] in the last 14 days. Ebola ss Screen: Patient denies exposure to infectious person. Patient denies travel to an Ebola-affected area in the 21 days before illness onset. Initial Sepsis Screen: Does the patient meet any 2 criteria? No. Patient's initial sepsis screen is negative. Does the patient have a suspected source of infection? No. Patient's initial sepsis screen is negative. Risk Assessment: Do you want to hurt yourself or someone else? Patient reports no desire to harm self or others. Onset of symptoms was September 06, 2020. Historical: - Allergies: 15:15 No Known Allergies; sv - PMHx: 15:15 Diabetes - NIDDM; Hepatitis; High Cholesterol; sv - PSHx: 15:15 Knee surgery; sv - Immunization history:: Adult Immunizations up to date. - Family history:: not pertinent. - Social history:: Smoking status: Patient denies any tobacco usage or history of. - Hospitalizations: : No recent hospitalization is reported. Screenin:55 Abuse screen: Denies threats or abuse. Denies injuries from another. Nutritional ss screening: No deficits noted. Tuberculosis screening: Never had TB. Fall Risk Fall in past 12 months (25 points). Secondary diagnosis (15 points) AMS. IV access (20 points). Ambulatory Aid- None/Bed Rest/Nurse Assist (0 pts). Gait- Normal/Bed Rest/Wheelchair (0 pts) Mental Status- Oriented to own ability (0 pts). Assessment: 15:30 General: Appears distressed, uncomfortable, Behavior is restless. General: Girlfriend ss of 20 years states that over the past 3 days he has been acting confused and today he fell. . Pain: Denies pain. Neuro: Level of Consciousness is awake, obeys commands, confused, Oriented to person, Speech slightly garbled. Facial symmetry appears normal, Pupils are PERRLA, Denies dizziness, headache. Cardiovascular: Capillary refill < 3 seconds is brisk in bilateral fingers Patient's skin is warm and dry. Chest pain is denied. Respiratory: Airway is patent Respiratory effort is even, unlabored, Respiratory pattern is regular, symmetrical, Breath sounds are clear bilaterally. Denies cough, shortness of breath. GI: Patient currently denies diarrhea, vomiting. : No signs and/or symptoms were reported regarding the genitourinary system. EENT: Nares are clear Oral mucosa is dry. Derm: Bruising that is dark purple, on lateral aspect of left thigh Girlfriend states that he fell 2 days ago from a standing position which caused the bruise. . Musculoskeletal: Range of motion: intact in all extremities, Swelling absent. 15:50 Reassessment: Pt to CT now VIA stretcher. ss 15:55 Reassessment: girlfriend states that patient has been acting this way (altered) for the ss past 2-3 days, but he did not want to go to the hospital. She then talked him into coming to ED today after falling. 16:15 Reassessment:. Neuro: Level of Consciousness is awake, confused, Oriented to none. ss Respiratory: Airway is patent Trachea midline Respiratory effort is even, Respiratory pattern is regular, symmetrical. Derm: Skin is dry, Skin is pink. 17:47 Reassessment: Dr. Bacon and Dr. Nuñez at bedside. ss 18:43 Reassessment: Awaiting for ICU room assignment. Girlfriend remains at bedside. Pt is ss awake, confused. Respirations even and unlabored. 2L NC placed for comfort. 19:45 General: Appears ill, Behavior is restless. Neuro: Level of Consciousness is awake, lp1 confused, Oriented to person. Cardiovascular: Patient's skin is warm and dry. Respiratory: Respiratory effort is shallow, Respiratory pattern is tachypnea. : Velazquez in place to gravity drainage. Derm: Skin is intact, with poor turgor Skin is dry. 19:45 Cardiovascular: Dialysis access noted to right groin. lp1 Vital Signs: 15:15 BP 108 / 60; Pulse 99; Resp 13; Temp 97.8(A); sv 17:46 BP 108 / 60; Pulse 95; Resp 20; Temp 97.5(TE); Pulse Ox 100% on Nebulizer Mask; ss 19:09 BP 91 / 58; Pulse 98; Resp 22; Pulse Ox 99% on 2 lpm NC; ss 19:45 BP 99 / 68; Pulse 97; Resp 21; Pulse Ox 97% on R/A; lp1 Matt Coma Score: 15:15 Eye Response: spontaneous(4). Verbal Response: confused(4). Motor Response: obeys sv commands(6). Total: 14. 16:43 Eye Response: spontaneous(4). Verbal Response: confused(4). Motor Response: obeys ss commands(6). Total: 14. Trauma Score (Adult): 15:15 Eye Response: spontaneous(1); Verbal Response: confused(1); Motor Response: obeys sv commands(2); Systolic BP: > 89 mm Hg(4); Respiratory Rate: 10 to 29 per min(4); Keenes Score: 14; Trauma Score: 12 16:43 Eye Response: spontaneous(1); Verbal Response: confused(1); Motor Response: obeys ss commands(2); Systolic BP: > 89 mm Hg(4); Respiratory Rate: 10 to 29 per min(4); Matt Score: 14; Trauma Score: 12 ED Course: 15:12 Patient arrived in ED. sv 15:14 Donny Camarillo MD is Attending Physician. rn 15:14 Triage completed. sv 15:15 Arm band placed on. sv 15:25 First set of blood cultures drawn by me. sv 15:35 Second set of blood cultures drawn by me. Inserted saline lock: 20 gauge in left upper sv arm, using aseptic technique. Blood collected. Flushed left with 5 ml normal saline. 15:36 Fiona Espitia, RN is Primary Nurse. ss 15:53 Patient maintains SpO2 saturation greater than 95% on room air. ss 15:55 Patient has correct armband on for positive identification. Bed in low position. Call ss light in reach. 15:57 Blood Culture Adult (2) Sent. sv 15:57 CPK Sent. sv 15:57 Lactate Sent. sv 15:57 LFT's Sent. sv 15:57 Lipase Sent. sv 15:57 Procalcitonin Sent. sv 15:57 Protime (+inr) Sent. sv 15:57 ETOH Level Sent. sv 15:58 Type And Screen Sent. sv 15:58 CBC with Diff Sent. sv 15:58 Basic Metabolic Panel Sent. sv 16:00 Head C Spine Cap Wo Con In Process Unspecified. EDMS 16:03 XRAY Chest (1 view) In Process Unspecified. EDMS 16:15 Notified ED physician of a critical lab result(s). lactate-7.2. sv 16:20 COVID swab sent to lab. mt 16:55 Notified ED physician of a critical lab result(s). potassium-7.4, CO2-7, sv creatinine-10.40, calcium-6.8, [id number]-[id number]. 17:05 Velazquez cath inserted, using sterile technique, 16 Fr., by nv, balloon inflated, to ss gravity drainage, urine specimen collected. 17:06 Urine Drug Screen Sent. hb 17:10 Miryam Stark MD is Hospitalizing Provider. rn 18:[address] Bacon with insertion of temporary hemodialysis catheter to R groin. Pt ss tolerated well. Obtained verbal consent over the phone from Next of kin, Brother Ramón Jay. 18:43 Patient admitted, IV remains in place. ss Administered Medications: 15:53 Drug: NS 0.9% 1000 ml Route: IV; Rate: 1000 ml; Site: left upper arm; ss 17:45 Follow up: IV Status: Completed infusion; IV Intake: 1000ml 16:48 Drug: Zosyn 3.375 grams Route: IVPB; Infused Over: 60 mins; Site: left upper arm; hb 17:45 Follow up: IV Status: Completed infusion; IV Intake: 100ml 17:04 Drug: NS 0.9% 1000 ml Route: IV; Rate: 1000 ml; Site: left upper arm; ss 19:45 Follow up: IV Status: Infusion continued upon admission lp1 17:19 Drug: Sodium Bicarbonate 1 amp Route: IVP; Site: left antecubital; ss 19:01 Follow up: Response: No adverse reaction; No change in condition ss 17:19 Drug: Sodium Bicarbonate 1 amp Route: IVP; Site: left antecubital; ss 19:01 Follow up: Response: No adverse reaction ss 19:01 Follow up: Response: No adverse reaction; No change in condition ss 17:21 Drug: Sodium Bicarbonate 50 mEq Route: IVP; Site: left antecubital; ss 19:01 Follow up: Response: No adverse reaction; No change in condition ss 17:25 Drug: D50W 50 ml Route: IVP; Site: left antecubital; ss 19:02 Follow up: Response: No adverse reaction; No change in condition ss 17:26 Drug: Insulin Regular Human 5 units {Co-Signature: hb (Ariela Akhtar RN).} Route: IVP; ss Site: left antecubital; 19:02 Follow up: Response: No adverse reaction; No change in condition ss 17:27 Drug: Calcium Gluconate 2 grams {Note: To be Given over [address] Camarillo.} ss Route: IVPB; Infused Over: 60 mins; Site: left antecubital; 17:45 Follow up: IV Status: Completed infusion ss 17:29 Drug: Albuterol 2.5 mg Route: Inhalation; ss 17:29 Drug: Kayexalate 30 grams Route: PO; ss 19:02 Follow up: Response: No adverse reaction; No change in condition ss 17:29 Not Given (Duplicate Order): Sodium Bicarbonate 1 amp IVP once; (50 mL); equals 50 mEq ss Intake: 15:15 PO: 0ml; Total: 0ml. sv 17:45 IV: 1000ml; Total: 1000ml. ss 17:45 IV: 100ml; Total: 1100ml. ss Output: 15:15 Urine: 0ml; Total: 0ml. sv Outcome: 17:11 Decision to Hospitalize by Provider. rn 18:00 critical ss 18:00 Instructed on the need for admit. 20:00 Admitted to ICU accompanied by nurse, via stretcher, room Treatment room, with chart, lp1 Report called to NATHALIE Saavedra 20:03 Patient left the ED. bb Signatures: Dispatcher [employer] EDAshley Mario RN NATHALIE Isi Velasquez RN RN bb Donny Camarillo MD MD rn Smirch, Shelby, RN RN Shabana Vazquez RN RN lp1 Ariela Akhtar RN RN [facility] Ariela cohen Corrections: (The following items were deleted from the chart) 18:52 18:[address] Bacon with insertion of temporary hemodialysis catheter to R groin. Pt tolerated well. Obtained verbal consent over the phone from Next of kin, Brother Ramón Jay. 20:09 19:45 BP 99 / 68; Pulse 97bpm; Resp 19bpm; Pulse Ox 97% RA; lp1 lp1
[2020-09-08 17:24] LABS: Urine Blood 2+ (Negative); Urine Glucose NEGATIVE (Negative); Urine Protein NEGATIVE (NEG)
[2020-09-08] MEDS ORDERED: ALBUTEROL 2.5 MG/3 ML NEB SOL ONE (17:25)
[2020-09-08] MEDS ORDERED: SODIUM BICARB 50 MEQ/50ML VIAL ONE ×5 (17:26→21:55)
[2020-09-08] MEDS ORDERED: INSULIN -REGULAR HUMAN 50 UNIT/0.5 ML ML ONE (17:26)
[2020-09-08] MEDS ORDERED: SOD POLYSTYREN SUL 15 GM/60 ML UCUP ONE (17:27)
[2020-09-08] MEDS ORDERED: D50W 25 GM/50 ML SYRINGE IV ONE (17:27)
[2020-09-08] MEDS ORDERED: CALCIUM GLUCONATE 1 GM IVPB 2 GM/100 ML BAG IV ONE (17:27)
[2020-09-08 17:34] LABS: Barbiturates NEGATIVE (NEGATIVE); Benzodiazepines NEGATIVE (NEGATIVE); Cocaine NEGATIVE (NEGATIVE); METHAMPHETAM NEGATIVE (NEGATIVE); Methadone NEGATIVE (NEGATIVE); Opiates POSITIVE (NEGATIVE); Phencyclidine NEGATIVE (NEGATIVE); THC Cannibis NEGATIVE (NEGATIVE)
[2020-09-08] MEDS ORDERED: SOD POLYSTYREN SUL 15 GM/60 ML UCUP PO ONE (17:38)
[2020-09-08] MEDS ORDERED: FUROSEMIDE 40 MG/4 ML VIAL IV ONE (17:38)
[2020-09-08] MEDS ORDERED: MORPHINE 2 MG/ML SYR IV PRN (17:39)
--- NOTE | 2020-09-08 17:51 | P.HP ---
Certification for Inpatient With expected LOS: >2 Midnights Patient will require the following post-hospital care: None Practitioner: I am a practitioner with admitting privileges, knowledge of patient current condition, hospital course, and medical plan of care. Services: Services provided to patient in accordance with Admission requirements found in Title 42 Section 412.3 of the Code of Federal Regulations Patient History Date of Service: 09/08/20 Reason for admission: weakness History of Present Illness: 60 year old male with past medical history of HTN , DM , HLD as per EMS ( states he takes meds but she is unsure of what meds he takes and for what diagnosis , she recalls history of kidney stones and previously followed with Dr Hernandez) , brought by EMS after found him fall and on the floor , she is unable to tell how long he has been on the floor , she recalls he has been having increasing weakness since last 5 days , she is unsure if fever or chills . Patient on presentation is confused but reported better at time of evaluation . He is able to tell no history of kidney problems in the past but unaable to give more information On admission he was noted with elevated creatinine of 10.4 with potassium of 7.2 and serum bicarbonate low at 7. He is being admitted for JULIUS . Allergies No Known Allergies Allergy (Unverified 01/17/18 22:21) Home medications list reviewed: No - Past Medical/Surgical History Has patient received pneumonia vaccine in the past: No Diabetic: Yes Past Medical History: Unable to obtain Past Surgical History: Unable to obtain - Family History Family History: Reviewed- Non-Contributory - Social History Smoking Status: Former smoker Alcohol use: No CD- Drugs: No Caffeine use: No Place of Residence: Home Review of Systems is unable to be obtained Physical Examination - Physical Exam General: Alert, In no apparent distress, Confused, Obese HEENT: Atraumatic, Normocephalic, PERRLA Neck: Supple, 2+ carotid pulse no bruit, JVD not distended Respiratory: Normal air movement, Diminished Cardiovascular: No edema, Regular rate/rhythm, Normal S1 S2 Capillary refill: <2 Seconds Gastrointestinal: Normal bowel sounds, Soft and benign, Non-distended Musculoskeletal: No clubbing, No swelling Neurological: Other (drowsy ) Urinary: Bojorquez catheter (dark germaine urine ) - Studies Laboratory Data (last 24 hrs) 09/08/20 15:35: PT 10.7, INR 0.93, APTT 26.0 09/08/20 15:35: WBC 13.00 H, Hgb 11.7 L, Hct 37.7 L, Plt Count 207 09/08/20 15:35: Sodium 132 L, Potassium 7.4 H*, BUN 104 H, Creatinine 10.40 H*, Glucose 171 H, Total Bilirubin 0.8, AST 27, ALT 32, Alkaline Phosphatase 98, Lipase 307 Imagings Data: CXR - no acute infiltrate , no pul congestion , old clavicular fracture Head CT - neg Assessment and Plan - Problems (Diagnosis) (1) JULIUS (acute kidney injury) Current Visit: Yes Status: Acute (2) Rhabdomyolysis Current Visit: Yes Status: Acute (3) Fall Current Visit: Yes Status: Acute (4) Metabolic acidosis Current Visit: Yes Status: Acute (5) Hyperkalemia Current Visit: Yes Status: Acute - Advance Directives Does patient have a Living Will: No Does patient have a Durable POA for Healthcare: No Physician Review Additional Text: PLAN - admit to Tele bed, may need ICU - making scanty urine with bojorquez - statt k lowering cocktail - kayexelate 60g/insulin 10/d50/bicarbonate 150meq x1 IVP/albuterol Neb -dose calcium glcuonate 2 g now and repeat in am -start bicarbonate gtt - dose lasix now since elevated BNP and to aid urine flow and distal tubular p otassium excretion - obtain repeat labs in 2 hrs, if non improving potassium , will need urgent dialysis - Spouse d/w to bring in all meds -JULIUS may be due to rhabdomyolysis with hypotension ATN -component of pre-renal may be possible since repeorted decreased po intake - obtain urine studies - Vitals with neuro checks q4h for now - sc heparin for DVT prop -will do accuchekcs with insulin sliding scale for suspected DM
[2020-09-08 17:59] LABS: Urine Bacteria 20-50 /HPF (NONE SEEN)
[2020-09-08 18:00] LABS: Urine Amorphous Sediment 2+ /HPF (NONE SEEN); Urine Sperm PRESENT (NONE SEEN)
[2020-09-08] MEDS ORDERED: D5W 1,000 ML with NA BICARB 8.4% 150 MEQ IV SCH ×2 (18:00)
--- NOTE | 2020-09-08 18:17 | P.OP ---
Preoperative diagnosis: Acidosis / Acute Renal Insufficiency Postoperative diagnosis: Acidosis / Acute Renal Insufficiency Primary procedure: Placement of RIGHT femoral temporary hemodialysis catheter Secondary procedure: microintroducer used Other procedure(s): ultrasound guidance Anesthesia: local 1% lidocaine used Estimated blood loss: <2cc Specimen: none Findings: dark non-pulstaile blood returned Complications: None Transferred to: ICU Condition: Serious
[2020-09-08] MEDS: IPRATROPIUM BROM 0.5MG/2.5ML NEB SCH (19:35)
--- NOTE | 2020-09-08 19:46 | OP ---
Date of Procedure: 09/08/2020 Surgeon: Wesly Bacon MD, Preoperative Diagnosis: Acidosis/acute renal insufficiency. Postoperative Diagnosis: Acidosis/acute renal insufficiency. Procedure Performed: Placement of right femoral temporary hemodialysis catheter using microintroduce r set and ultrasound guidance. Anesthesia: Local 1% lidocaine utilized. Estimated Blood Loss: Less than 2 mL. Specimen: None. Findings: Dark, nonpulsatile blood return. Complications: None. Disposition: The patient remained in ICU in serious condition. Procedure In Detail: After informed consent was obtained from the patient's brother and his , th e patient was prepped and draped in the usual sterile fashion after adequate anesthesia achieved. Ul trasound guidance demarcated the left femoral vein. I cannulated the left femoral vein using a micro introducer set on the first attempt after anesthetizing the skin. Using a microintroducer set, dark red nonpulsatile blood was returned. Microwire was advanced at this point. The needle was removed a t this point and I made a small luis alberto incision overlying the insertion wire at this point. I placed t he microintroducer sheath over the wire using Seldinger technique and removed the microwire at this p oint. I advanced standard wire into the introducer sheath after the cannula was removed without evid ence of complication and easily passed the wire. At this point, the introducer sheath was removed. I performed sequential dilatation using the dilators and ultimately passed the catheter into the righ t femoral vein without evidence of complication. Blood easily returned. The wire was removed. At t his point, wire out called on the back table. I then was able to withdraw and flush from both ports quite easily. I then flushed both ports with saline and prepared heparin for packing at this point. The catheter was secured to the skin using an attached 2-0 nylon suture and a sterile dressing place d over top. The patient tolerated the procedure well without evidence of complication and remained i n the ICU throughout the procedure in serious condition. All counts were correct at the end of the c ase. TK/MODL Voice ID: [id number] Report ID: [id number]
[2020-09-08] MEDS ORDERED: IPRATROPIUM BROM 0.5MG/2.5ML ONE (19:47)
[2020-09-08] MEDS: BUMETANIDE 1 MG/4 ML VIAL IV SCH (21:00)
[2020-09-08] MEDS ORDERED: INSULIN -REGULAR HUMAN 50 UNIT/0.5 ML ML SQ SCH (21:00)
[2020-09-08 21:16] VITALS: BMI 34.0
[2020-09-08] MEDS ORDERED: D50W 25 GM/50 ML SYRINGE IV PRN (21:16)
[2020-09-08] MEDS ORDERED: GLUCAGON 1 MG/VIAL IM PRN (21:16)
[2020-09-08] MEDS ORDERED: D5W 1,000 ML IV ONE (21:43)
--- NOTE | 2020-09-08 23:01 | CON ---
Date of Consultation: 09/08/2020 Chief Complaint: Acute kidney injury. History Of Present Illness: The patient is a 60-year-old man with past medical history of hypertension, diabetes mellitus type 2, hyperlipidemia. The patient was brought by EMS to Emergency Department because of altered mental status, confusion, generalized weakness. He has history of kidney stones. Previously, he was seen by urologist, Dr. Lr. Apparently, he fell at home on the floor. His cannot be sure if he had a seizure or head trauma. The patient was evaluated in the emergency room and had workup done to rule out trauma to the head by ER physician. The patient had CT scan done of the abdomen and pelvis to rule out obstructive uropathy and kidney stone. A Velazquez catheter was placed and 100 cc of dark urine was draining. The patient cannot provide any previous history. His stated that the patient was taking metformin for diabetes, otherwise she does not recall the name of the medications. On admission, the patient was found to have elevated creatinine up to 10.4, potassium 7.2. The patient had severe metabolic acidosis and lactic acidosis was present. Bicarbonate was 7. The patient on arrival to the ER was hypotensive and received IV fluids with normal saline for volume resuscitation. Systolic blood pressure improved to 100 range and the patient did not require pressors. Nephrology consultation was requested for severe acute kidney injury, electrolyte abnormalities, hyperkalemia, and metabolic acidosis, and stat dialysis was ordered after the patient had a dialysis catheter placed for acute dialysis to treat acute kidney injury with multiple electrolyte abnormalities. The patient was found to have hypocalcemia. Phosphorus level was ordered and is pending. Magnesium level was ordered as well. Past Medical History: Diabetes mellitus, hypertension, hyperlipidemia. Previously, the patient was seen in the emergency room for altered mental status and stroke. He was found to have elevated creatinine level of 1.8. Review of Systems: Unobtainable. Family History: Unobtainable. Social History: According to his , he is a former smoker, he did not have history with alcohol use or drug use. Physical Examination: General: The patient is confused, is not in any apparent distress. Eyes: Anicteric sclerae. Neck: Supple. No JVD. Respiratory: Normal respiratory effort. No crackles. No rhonchi. Cardiovascular: S1, S2. No pericardial friction rub. Abdomen: Soft. Bowel sounds present. Extremities: No edema. Catheter is in place and is draining scant amount of dark urine. Laboratory Data: PT 10.7, INR 0.93, PTT 26. Hemoglobin 11.7, hematocrit 37.7, platelet count is 207, WBC 13,000. Sodium 132, potassium 7.4, BUN 104, creatinine 10.4, glucose 171, bilirubin 0.8, lipase 307. Chest x-ray, no acute infiltrate, no congestion. There is old clavicular fracture present. CT scan negative for acute changes. Impression And Plan: 1. Acute kidney injury, oliguric, secondary to acute tubular necrosis and rhabdomyolysis. The patient had a fall and likely due to fall has rhabdomyolysis. The patient did not have any treatment with nonsteroidal anti- inflammatory medication, although he was on pain medication and his stated that was given through injectable route, although she does not recall the name of the medication. The patient was found to have severe metabolic acidosis complicated by lactic acidosis and hyperkalemia, hyperazotemia. The patient will have stat dialysis to control abnormalities including treatment for severe hyperkalemia. 2. Lactic acidosis, likely secondary to hypotension, hypoperfusion as well metformin is a contributory factor to lactic acidosis in this particular patient. Today, the patient will have dialysis with 1 potassium dialysate and after dialysis, blood work will be re-evaluated. The patient primarily was treated for hyperkalemia in the emergency room and received Kayexalate, bicarbonate IV, calcium gluconate, insulin, and dextrose. 3. History of kidney stone. CT scan did not show obstructive stone. Continue to monitor. The patient needs to be rule out for urosepsis and bacteremia. Recommend broad-spectrum antibiotics. 4. Altered mental status, encephalopathy, etiology likely multifactorial also secondary to uremia. EB/MODL Voice ID: [id number] Report ID: [id number] JULIETTE
[2020-09-08 23:26] LABS: Potassium 4.3 mmol/L (3.5-5.1)
[2020-09-08] MEDS: HEPARIN 5000 UNIT/ML 1 ML VIAL SQ SCH (23:36)
[2020-09-08] MEDS ORDERED: NACHLORIDE 0.45% 1,000 ML with NA BICARB 8.4% 100 MEQ IV SCH ×2 (23:45)
[2020-09-08] MEDS ORDERED: FUROSEMIDE 100 MG/10 ML VIAL IV ONE (23:48)
[2020-09-08] MEDS ORDERED: HEPARIN 5000 UNIT/ML 1 ML VIAL ONE (23:48)
[2020-09-09] MEDS ORDERED: INSULIN -REGULAR HUMAN 50 UNIT/0.5 ML ML SQ SCH
[2020-09-09] MEDS ORDERED: NACHLORIDE 0.45% 1,000 ML IV ONE (00:30)
[2020-09-09] MEDS: IPRATROPIUM BROM 0.5MG/2.5ML NEB SCH ×2 (02:10→07:42)
[2020-09-09 05:24] LABS: Absolute Lymphocytes (CBC) 0.2 K/uL (0.7-4.9); Basophils % 0.1 % (0-1.3); Hematocrit 31.6 % (39.6-49.0); MPV 9.7 fL (7.6-11.3); RBC Red Blood Cell Count 3.35 M/uL (4.33-5.43)
[2020-09-09 06:59] LABS: Albumin 2.8 g/dL (3.4-5.0); Bilirubin Total 0.7 mg/dL (0.2-1.0); Magnesium 2.1 mg/dL (1.8-2.4); Phosphorus 7.9 mg/dL (2.5-4.9); Potassium 5.1 mmol/L (3.5-5.1); Protein, Total 6.1 g/dL (6.4-8.2)
[2020-09-09] MEDS: INSULIN -REGULAR HUMAN 50 UNIT/0.5 ML ML SQ SCH ×4 (07:30→21:00)
[2020-09-09] MEDS ORDERED: IPRATROPIUM BROM 0.5MG/2.5ML ONE (07:52)
[2020-09-09] MEDS: HEPARIN 5000 UNIT/ML 1 ML VIAL SQ SCH ×2 (09:00→21:21)
[2020-09-09] MEDS ORDERED: HEPARIN 5000 UNIT/ML 1 ML VIAL ONE (09:42)
[2020-09-09] MEDS ORDERED: ACETAMINOPHEN 500 MG TAB ONE (09:44)
[2020-09-09] MEDS: BUMETANIDE 1 MG/4 ML VIAL IV SCH (09:53)
[2020-09-09 09:59] LABS: Platelet Estimate ADEQ
[2020-09-09 10:00] LABS: Blood Morphology Comment NOT SEEN (NOT SEEN)
--- NOTE | 2020-09-09 13:16 | P.PN ---
Subjective Date of Service: 09/09/20 Primary Care Provider: unknown Chief Complaint: weakness Subjective: Other (Still with fatigue. Patient more alert today.) Physical Examination - Vital Signs Temperature: 99.4 F Blood Pressure: 97/75 Pulse: 95 Respirations: 15 Pulse Ox (%): 100 - Studies Laboratory Data (last 24 hrs) 09/08/20 15:35: PT 10.7, INR 0.93, APTT 26.0 09/08/20 15:35: WBC 13.00 H, Hgb 11.7 L, Hct 37.7 L, Plt Count 207 09/08/20 15:35: Sodium 132 L, Potassium 7.4 H*, BUN 104 H, Creatinine 10.40 H*, Glucose 171 H, Total Bilirubin 0.8, AST 27, ALT 32, Alkaline Phosphatase 98, Lipase 307 Assessment & Plan Discharge Plan: Home Plan to discharge in: Greater than 2 days Physician Review Additional Text: Physical exam: Patient alert, cooperative. Less confusion noted this morning. at bedside. Heart: Regular rate and rhythm Lungs: Clear to auscultation Abdomen: Soft nontender nondistended Extremities: Good range of motion no focal deficits. Impression: Fall with rhabdomyolysis Toxic/metabolic encephalopathy related to UTI Acute renal failure with metabolic acidosis and hyperkalemia with likely underlying chronic renal disease stage V Diabetes mellitus type 2 Plan: Fall with rhabdomyolysis: CT head unremarkable. CT head unremarkable. Will check MRI brain to rule out stroke. Suspect encephalopathy related to UTI and acute renal failure. Patient had been on Metformin. Patient with rhabdomyolysis. Emergency dialysis initiated. Will hold IV diuretic therapy. Start Rocephin. Start IV fluids. Patient to get dialysis again today. We will continue to monitor the patient closely. Anticipate improvement over the next couple of days. Toxic/metabolic encephalopathy related to UTI: We will start Rocephin. Continue IV fluids. Patient to continue with dialysis. Acute renal failure with metabolic acidosis and hyperkalemia with likely underlying chronic renal disease stage V: Emergent dialysis started yesterday. Hyperkalemia improved. Continue to monitor the patient closely. Recheck BMP after dialysis. Diabetes mellitus type 2: Continue to hold Metformin. Will provide Accu-Cheks. Sliding scale in place. Will check A1c. Time Spent Managing Pts Care (In Minutes): 55
[2020-09-09] MEDS ORDERED: NA CHLORIDE 0.9% 1,000 ML ONE (13:47)
[2020-09-09] MEDS ORDERED: CEFTRIAXONE/SWI 1gm 1 GM/10 ML SYR ONE (13:47)
[2020-09-09] MEDS ORDERED: NA CHLORIDE 0.9% 1,000 ML IV SCH (14:00)
[2020-09-09] MEDS: CEFTRIAXONE/SWI 1gm 1 GM/10 ML SYR IV SCH (14:10)
[2020-09-09] MEDS ORDERED: D50W 25 GM/50 ML VIAL IV PRN (15:00)
[2020-09-09] MEDS ORDERED: ACETAMINOPHEN 650MG/RECT SUPP PR ONE (19:31)
[2020-09-09 20:31] LABS: Potassium 4.7 mmol/L (3.5-5.1)
[2020-09-09] MEDS ORDERED: THIAMINE HCL 100 MG TABLET PO ONE (21:15)
[2020-09-09 21:37] LABS: Arterial Blood Carboxyhemoglob 1.2 % (0-1.5); Blood Gas Oxyhemoglobin 93.5 % (94-97); Blood O2 Saturation 95.7 % (92-98.5)
[2020-09-09 21:38] LABS: CKMB Creatine Kinase MB 12.7 ng/mL (0.3-3.6)
[2020-09-09] MEDS ORDERED: SODIUM BICARB 50 MEQ/50ML VIAL ONE ×2 (22:02→23:42)
[2020-09-09] MEDS: D5W 1,000 ML with NA BICARB 8.4% 150 MEQ IV SCH ×2 (22:08)
[2020-09-09] MEDS ORDERED: D5W 1,000 ML IV ONE (22:17)
[2020-09-09] MEDS ORDERED: LORazepam 2 MG/ML VIAL IV ONE (22:24)
[2020-09-09] MEDS ORDERED: LORazepam 2 MG/ML VIAL ONE (22:36)
[2020-09-09 22:39] LABS: BUN Blood Urea Nitrogen 61 mg/dL (7-18); Glucose Level 133 mg/dL (74-106); Potassium 4.9 mmol/L (3.5-5.1); Sodium Level 140 mmol/L (136-145); Uric Acid 5.7 mg/dL (3.5-7.2)
[2020-09-09 22:48] LABS: Bicarbonate 10 mmol/L (21-32)
[2020-09-10] MEDS ORDERED: ACETAMINOPHEN 650MG/RECT SUPP PR PRN (01:00)
--- NOTE | 2020-09-10 01:23 | PN ---
Date of Progress Note: 09/09/2020 Chief Complaint: Acute kidney injury, severe, oliguric, associated with severe hyperkalemia. History Of Present Illness: Potassium on arrival to the hospital was 7.4, BUN 104, creatinine 10.4, CK level was elevated, and the patient had some urine in the bladder, volume of 100 cc of dark color. The patient was obtunded, encephalopathic. Today, he is more alert. Yesterday, the patient received stat/emergent dialysis to treat hyperkalemia and metabolic acidosis. Bicarbonate after dialysis improved from 7 to 15. Subsequently this morning, his bicarbonate was 11. The patient received dialysis again today and 2 hours after dialysis, bicarbonate is 11. The patient will have further workup. Sodium bicarbonate drip is started. Prior to this admission, the patient apparently was taking metformin. Plan is to evaluate for elevated lactic acid, which was on arrival elevated. The patient had some episode of borderline hypotension, but did not require pressors and responded to IV fluids. Currently, the patient will continue sodium bicarbonate drip and plan is to re- evaluate lab work and ABG as well as ammonia level and acetone in 2 hours. The patient was found to have elevated CK level and according to his caregiver, his , he sustained fall at home, although his is not sure if he had seizure. Review of Systems: Unobtainable. The patient is confused, although he can answer some simple questions and he denies complaints. Physical Examination: Lungs: Clear to auscultation bilaterally. Heart: S1, S2. Abdomen: Soft, benign. Extremities: No edema. Impression And Plan: 1. Acute kidney injury. Continue daily dialysis. Continue sodium bicarbonate drip and evaluate blood work to check advancement of metabolic acidosis treatment. Hyperkalemia at this point is controlled. 2. Hypocalcemia. The patient has hypoalbuminemia. Plan is to check ionized calcium. Phosphorus level was elevated before dialysis. Continue daily dialysis treatment. CK level was up to 1500. Plan is to check CK level and continue IV fluids. At this point, the patient will have sodium bicarbonate drip. EB/MODL Voice ID: [id number] Report ID: [id number] [facility]OSPITALSheela
[2020-09-10] MEDS: D5W 1,000 ML with NA BICARB 8.4% 150 MEQ IV SCH ×6 (05:58→21:40)
[2020-09-10] MEDS ORDERED: D5W 1,000 ML IV ONE (06:06)
[2020-09-10] MEDS ORDERED: SODIUM BICARB 50 MEQ/50ML VIAL ONE (06:06)
[2020-09-10 06:17] LABS: Absolute Lymphocytes (CBC) 0.3 K/uL (0.7-4.9); Basophils % 0.1 % (0-1.3); Hematocrit 28.8 % (39.6-49.0); Lymphocytes % 3.9 % (15.3-44.8); MPV 9.2 fL (7.6-11.3); RBC Red Blood Cell Count 3.12 M/uL (4.33-5.43)
[2020-09-10 06:45] LABS: Albumin 2.3 g/dL (3.4-5.0); Bilirubin Total 0.7 mg/dL (0.2-1.0); Magnesium 2.3 mg/dL (1.8-2.4); Potassium 4.3 mmol/L (3.5-5.1); Protein, Total 5.6 g/dL (6.4-8.2); Thyroid Stimulating Hormone 0.032 uIU/mL (0.360-3.740)
[2020-09-10 06:48] LABS: CKMB Creatine Kinase MB 10.4 ng/mL (0.3-3.6)
--- NOTE | 2020-09-10 07:36 | P.PN ---
Subjective Date of Service: 09/10/20 Primary Care Provider: unknown Chief Complaint: weakness Subjective: Other (Patient still confused. T-max 100.3. Blood pressure stable.) Physical Examination - Vital Signs Temperature: 98.4 F Blood Pressure: 121/57 Pulse: 83 Respirations: 18 Pulse Ox (%): 95 Assessment & Plan Discharge Plan: Home Plan to discharge in: Greater than 2 days Physician Review Additional Text: Physical exam: Patient alert, confused. at bedside. Heart: Regular rate and rhythm Lungs: Clear to auscultation Abdomen: Soft nontender nondistended Extremities: Good range of motion no focal deficits. Impression: Fall with rhabdomyolysis Toxic/metabolic encephalopathy related to UTI Acute renal failure with metabolic acidosis and hyperkalemia with likely underlying chronic renal disease stage V Diabetes mellitus type 2 Elevated ammonia level with history of alcohol use Anemia likely of chronic disease Plan: Fall with rhabdomyolysis: Patient remains confused. Elevated ammonia level noted. Will start lactulose. Patient remains on IV fluids, bicarb drip start ed. Continue IV antibiotic therapy. Continue to monitor and trend CPK. Patient had dialysis yesterday. Will check MRI brain to rule out stroke. Suspect encephalopathy related to UTI and acute renal failure. IV diuretic therapy stopped yesterday. Will get MRI brain once agitation is less. Continue to monitor his progress. Anticipate improvement over the next couple of days. Toxic/metabolic encephalopathy related to UTI: Continue Rocephin. Continue IV fluids with bicarb. Await culture results. Acute renal failure with metabolic acidosis and hyperkalemia with likely underlying chronic renal disease stage V: Patient had dialysis yesterday. Patient will likely continue with dialysis. Patient now on bicarb drip. Await further recommendations from nephrology. Hepatitis panel pending. Diabetes mellitus type 2: Metformin has been discontinued. A1c 6.9. Continue Accu-Cheks. Elevated ammonia level with history of alcohol use: Will start lactulose. Monitor and trend ammonia level. reports patient with history of alcohol use but this was stopped many years ago. Anemia of chronic disease: We will monitor this closely. We will check iron and B12 studies. Maintain hemoglobin above 7.0. Time Spent Managing Pts Care (In Minutes): 55
[2020-09-10 08:55] LABS: Ferritin 176.6 ng/mL (26-388)
[2020-09-10 09:05] LABS: Platelet Estimate DECR; White Blood Cell Scan OK (OK)
[2020-09-10 09:06] LABS: Blood Morphology Comment NOT SEEN (NOT SEEN)
[2020-09-10] MEDS: INSULIN -REGULAR HUMAN 50 UNIT/0.5 ML ML SQ SCH ×4 (09:17→20:32)
[2020-09-10] MEDS: FOLIC ACID 1 MG TABLET PO SCH (09:18)
[2020-09-10] MEDS: LACTULOSE 20 GM/30 ML UCUP PO SCH ×3 (09:18→21:45)
[2020-09-10] MEDS: THIAMINE HCL 100 MG TABLET PO SCH (09:19)
[2020-09-10] MEDS: CEFTRIAXONE/SWI 1gm 1 GM/10 ML SYR IV SCH (09:19)
[2020-09-10] MEDS: CALCIUM CARBONATE 500 MG TAB PO SCH ×3 (09:19→21:46)
[2020-09-10] MEDS: HEPARIN 5000 UNIT/ML 1 ML VIAL SQ SCH ×2 (09:20→20:24)
--- NOTE | 2020-09-10 16:01 | PN ---
Date of Progress Note: 09/10/2020 Subjective: The patient was admitted with acute kidney injury secondary to hepatorenal and severe acidosis. The patient was initiated on dialysis. Physical Examination: Vital Signs: Blood pressure 117/62, pulse of 83, afebrile. The patient is still oliguric. Chest: Clear to auscultation. Heart: S1, S2. Regular. Abdomen: Soft, nontender. Extremity: No edema. Neuro: Alert. Sleepy. Laboratory Data: Sodium 139, potassium 4.3, bicarb 17, BUN 72, creatinine 6, GFR of 10. Calcium 6.4. CK of 2200. TSH 0.3. Current Medications: The patient on include ceftriaxone, heparin, calcium carbonate, bicarb drip, lactulose. Assessment And Plan: 1. Acute kidney injury, oliguric. We will continue dialysis. The patient is scheduled for dialysis today. Hopefully after dialysis, we can discontinue the bicarb drip and we will follow up. We will consult Surgery to convert his dialysis catheter to tunnel. 2. Acidosis secondary to renal failure. Continue bicarb drip. We will follow up chemistry tomorrow. After dialysis, we will consider discontinuing bicarb if acidosis is better. 3. Anemia with acute kidney injury. Light-chain disease needs to be ruled out. The patient had iron deficiency anemia. We will start the patient on IV iron. We will send for serum protein electrophoresis. 4. Encephalopathy secondary to hapatic / Ativan . Follow up with primary. 5. Hyperkalemia, resolved. 6. Rahbdo going to be corrected with dialysis. MALLORY/RUBEN Voice ID: [id number] Report ID: [id number] JULIETTE
[2020-09-10] MEDS ORDERED: DIPHENHYDRAMINE 50 MG/ML VIAL IV ONE (16:45)
[2020-09-10] MEDS ORDERED: LORazepam 2 MG/ML VIAL IV ONE ×3 (16:55→22:55)
[2020-09-10] MEDS ORDERED: DIPHENHYDRAMINE 50 MG/ML VIAL ONE (17:13)
[2020-09-10] MEDS: IPRATROPIUM BROM 0.5MG/2.5ML NEB PRN (22:30)
[2020-09-10] MEDS: ALBUTEROL 2.5 MG/3 ML NEB SOL NEB PRN (22:30)
[2020-09-10] MEDS ORDERED: LORazepam 2 MG/ML VIAL ONE ×2 (22:55→23:10)
[2020-09-10] MEDS ORDERED: METHYLPREDNISOLONE 125 MG INJ IV ONE (23:05)
[2020-09-10] MEDS ORDERED: FUROSEMIDE 40 MG/4 ML VIAL IV ONE (23:05)
[2020-09-10] MEDS ORDERED: FUROSEMIDE 40 MG/4 ML VIAL ONE (23:15)
[2020-09-10] MEDS ORDERED: FUROSEMIDE 20 MG/ 2ML VIAL ONE (23:15)
[2020-09-10] MEDS ORDERED: METHYLPREDNISOLONE 125 MG INJ ONE (23:15)
[2020-09-10 23:30] LABS: Blood O2 Saturation 98.9 % (92-98.5)
[2020-09-10 23:57] LABS: Potassium 3.7 mmol/L (3.5-5.1)
--- NOTE | 2020-09-11 00:40 | P.PN ---
Date of Service: 09/11/20 Rapid response was called as patient was tachypneic, hypoxic, tachycardic, hypertensive. Upon arrival to exam room patient tachypneic with respiratory rate in the 40s to 50s, was saturating in the 70s to 80s on room air, with expiratory wheezing/rhonchi on exam. Patient appeared extremely anxious, it was reported that the event began with anxiety/agitation and progressed to this hyperventilation episode, patient had previously required doses of Ativan for agitation, patient was given Ativan, Solu-Medrol, neb, dose of Lasix as he is receiving fluid and patient was transferred to the ICU for close monitoring. Follow exam in the ICU room patient calm, breathing easily with respiratory rate around 14 saturating in the low 90s on nasal cannula, ABG unremarkable. Will continue to monitor in the ICU at this time.
[2020-09-11] MEDS: ALBUTEROL 2.5 MG/3 ML NEB SOL NEB PRN ×3 (03:05→14:40)
[2020-09-11] MEDS ORDERED: ALBUTEROL 2.5 MG/3 ML NEB SOL ONE ×3 (03:17→14:48)
[2020-09-11] MEDS: ONDANSETRON 4 MG/2 ML VIAL IV PRN (04:56)
[2020-09-11] MEDS ORDERED: ONDANSETRON 4 MG/2 ML VIAL ONE (05:12)
[2020-09-11 05:21] LABS: Absolute Lymphocytes (CBC) 0.1 K/uL (0.7-4.9); Hematocrit 35.8 % (39.6-49.0); Lymphocytes % 1.4 % (15.3-44.8); MPV 9.9 fL (7.6-11.3)
[2020-09-11 05:35] LABS: Albumin 2.7 g/dL (3.4-5.0); Bilirubin Total 0.8 mg/dL (0.2-1.0); CKMB Creatine Kinase MB 9.6 ng/mL (0.3-3.6); Magnesium 2.4 mg/dL (1.8-2.4); Potassium 3.7 mmol/L (3.5-5.1); Protein, Total 6.7 g/dL (6.4-8.2)
[2020-09-11] MEDS ORDERED: HEPARIN 5000 UNIT/ML 1 ML VIAL ONE ×2 (08:02→20:38)
[2020-09-11] MEDS ORDERED: CEFTRIAXONE/SWI 1gm 1 GM/10 ML SYR ONE (08:03)
[2020-09-11] MEDS ORDERED: INSULIN -REGULAR HUMAN 50 UNIT/0.5 ML ML ONE ×2 (08:06→14:39)
[2020-09-11] MEDS: IPRATROPIUM BROM 0.5MG/2.5ML NEB PRN ×2 (08:45→14:40)
[2020-09-11] MEDS: INSULIN -REGULAR HUMAN 50 UNIT/0.5 ML ML SQ SCH ×4 (08:47→21:00)
[2020-09-11] MEDS: CEFTRIAXONE/SWI 1gm 1 GM/10 ML SYR IV SCH (08:47)
[2020-09-11] MEDS ORDERED: IPRATROPIUM BROM 0.5MG/2.5ML ONE ×2 (08:58→14:48)
[2020-09-11] MEDS: CALCIUM CARBONATE 500 MG TAB PO SCH ×3 (09:00→20:58)
[2020-09-11] MEDS: LACTULOSE 20 GM/30 ML UCUP PO SCH ×3 (09:00→20:57)
[2020-09-11] MEDS: THIAMINE HCL 100 MG TABLET PO SCH (09:00)
[2020-09-11] MEDS: FOLIC ACID 1 MG TABLET PO SCH (09:00)
[2020-09-11] MEDS: HEPARIN 5000 UNIT/ML 1 ML VIAL SQ SCH ×2 (09:00→20:58)
--- NOTE | 2020-09-11 09:20 | RAD REPORT ---
EXAM DESCRIPTION: MRI - Brain Wo Cont - 09/10/2020 9:07 pm CLINICAL HISTORY: AMS Headache, drowsiness, alteration of awareness. COMPARISON: Brain W/Wo Cont dated 08/02/2020 TECHNIQUE: Multi-sequence, multiplanar MR imaging of the brain was performed without contrast. FINDINGS: No intracranial hemorrhage, hydrocephalus or extra-axial fluid collections. No edema or sh ift of midline structures. No findings to suspect brain mass. DWI is negative for acute CVA. Midline structures are normally formed. Mastoid air cells and paranasal sinuses are clear. IMPRESSION: Negative for acute CVA or other acute intracranial process.
--- NOTE | 2020-09-11 10:26 | RAD REPORT ---
EXAM DESCRIPTION: Chest Radiography COMPARISON: Chest radiograph September 08, 2020 report only CLINICAL HISTORY: [facility] SOB FINDINGS: A single AP view of the chest demonstrates a normal cardiomediastinal silhouette. No pneumothorax or pleural effusion. Bilateral groundglass opacities are present, especially subpleur al. Osseous structures are intact. IMPRESSION: Bilateral groundglass opacities are favored to represent multifocal pneumonia and less l ikely pulmonary edema. Electronically signed by: Hero Skinner MD 09/10/2020 11:40 PM CDT Due to temporary technical issues with the PACS/Fluency reporting system, reports are being signed by the in house radiologist without review as a courtesy to ensure prompt reporting. The interpreting r adiologist is fully responsible for the content of the report.
--- NOTE | 2020-09-11 10:44 | RAD REPORT ---
EXAM DESCRIPTION: RAD - Chest Single View - 09/11/2020 10:35 am CLINICAL HISTORY: SOB Chest pain. COMPARISON: Chest Single View dated 09/10/2020; Chest Single View dated 09/08/2020; Chest Single View dated 08/02/2020; Chest Single View dated 05/23/2019 FINDINGS: Portable technique limits examination quality. There is been significant worsening in bilateral pulmonary opacities since the comparative study from yesterday. The heart is normal in size. No displaced fractures. IMPRESSION: Significant worsening in bilateral pulmonary opacities since the comparative study.
--- NOTE | 2020-09-11 11:44 | CON ---
Date of Consultation: 09/08/2020 Brief History Of Present Illness: The patient is a 60-year-old male who was brought to the hospital by EMS with a past medical history of hypertension, diabetes, hyperlipidemia, kidney stones after he was found down on the floor. It is uncertain how long he had been down. He has been having increase d weakness for 5 days prior to this, unsure of any other symptoms. The patient was confused and conv ersive, but not able to answer questions appropriately. His longtime girlfriend of 20 years reports information to us and she is at the bedside. Upon admission, he was noted to have a creatinine of 10 and a potassium of 7 and bicarb with a low at 7, as such consistent with acute kidney injury. As [facility] natali, I am consulted for placement of a temporary hemodialysis catheter. Past Medical History: Unable to obtain other than from the chart, which include hypertension, diabet es, hyperlipidemia. Past Surgical History: Uncertain. Allergies: NO KNOWN DRUG ALLERGIES. Medication: List is unavailable. Social History: He has a positive smoking history. Denies alcohol or recreational drug use per his longtime girlfriend. Review of Systems: Ten-point review of systems is unable to obtain. Physical Examination: At the time of my examination: General: He was awake, alert, but confused. He was semi-combative during my assessment. HEENT: Otherwise normocephalic. His sclerae were anicteric. His mucous membranes are moist. His o ropharynx is clear. Neck: Supple without JVD. Chest: Normal expansion. Cardiovascular: Tachycardic. Pulmonary: Clear to auscultation bilaterally. Abdomen: Soft. Extremities: No clubbing, cyanosis, or edema. Laboratory Data: Revealed a white blood count of 13 on admission. His hemoglobin is 11.7, hematocri t 37.7, platelet count was 209. His neutrophils were 81%. He had 11 bands. His sodium is 140, pota ssium 4.3, chloride 101, carbon dioxide is 15, BUN 59, creatinine 5.6. His glucose is 97. His lacti c acid was 10.7. Total bilirubin 0.8, direct component 0.4, AST 27, ALT 32, alkaline phosphatase 98. His creatine kinase is 1869. His troponin is less than 0.02. ProBNP is 8201. His procalcitonin i s 2.1. His urinalysis showed sperm, bacteria, white blood cells, red blood cells and 2+ blood on exa mination. Opioids were positive on the toxicology screen. He had a chest x-ray performed, which was officially read as no acute abnormality displayed. He additionally had a head, cervical spine, ches t, abdomen, pelvis CT, which was officially read as small inguinal hernias containing fat. No acute intracranial abnormality. Cervical fracture not visualized. No traumatic abnormality around the [address], abdomen, pelvis. Assessment And Plan: This is a 60-year-old male who comes in with acidosis and acute kidney injury. As such, I have been consulted for placement of temporary hemodialysis catheter. I have explained t he risks, benefits, and alternatives of placement of a temporary hemodialysis catheter including, but not limited to bleeding, infection, damage to the surrounding tissue, and need further operative pro cedures to the patient's brother and his long-time girlfriend. They agreed to proceed as indicated. YOLANDA/RUBEN Voice ID: [id number] Report ID: [id number]
--- NOTE | 2020-09-11 12:08 | P.PN ---
Subjective Date of Service: 09/11/20 Primary Care Provider: unknown Chief Complaint: weakness Subjective: Other (Patient stable. Resting in bed. at bedside. Running on 3 L per nasal cannula. Patient had acute respiratory distress last night requiring transfer to ICU.) Physical Examination - Vital Signs Temperature: 99.6 F Blood Pressure: 153/95 Pulse: 107 Respirations: 18 Pulse Ox (%): 93 - Studies Microbiology Data (last 24 hrs): 09/08/20 17:02 Clean Catch Urine [place] Count - Final No growth. 09/08/20 17:02 Clean Catch Urine - Final No growth. Assessment & Plan Discharge Plan: Home Plan to discharge in: Greater than 2 days Physician Review Additional Text: Physical exam: Patient had acute respiratory distress last night. Requiring ICU transfer. Patient currently stable. Currently on 3 L per nasal cannula. at bedside. Patient alert, still confused but appropriate. Heart: Regular rate and rhythm Lungs: Crackles to the bases. Some wheezing bilateral Abdomen: Soft nontender nondistended Extremities: Good range of motion no focal deficits. Impression: Fall with rhabdomyolysis Toxic/metabolic encephalopathy related to UTI Acute renal failure with metabolic acidosis and hyperkalemia with likely under lying chronic renal disease stage V Acute respiratory distress suspect acute diastolic CHF versus COPD exacerbation Diabetes mellitus type 2 Elevated ammonia level with history of alcohol use Anemia likely of chronic disease BPH Migraine headaches History of alcohol/tobacco abuse Plan: Fall with rhabdomyolysis: Patient remains confused but stable. CPK still elevated. Patient no longer on bicarb drip. Chest x-ray shows volume overload. Case discussed with nephrology. Nephrology will plan for dialysis. Will check echocardiogram. Patient had episode of acute respiratory distress last night. This may be related to CHF versus COPD. Patient with history of tobacco abuse in the past. Will continue with dialysis as directed. Will consult pulmonology. Will provide IV Solu-Medrol and COPD medication. We will continue to monitor closely. Wean off oxygen. MRI brain negative. Ammonia level back to baseline. We will continue to monitor closely. If stable will transition patient back to the floor. Toxic/metabolic encephalopathy related to UTI: Urine culture negative. We will continue with Rocephin. Await final results for blood cultures. Recheck procalcitonin. Acute renal failure with metabolic acidosis and hyperkalemia with likely underlying chronic renal disease stage V: Chest x-ray shows pulmonary edema. Patient will require dialysis again today. IV fluids adjusted by nephrology. Patient will likely require long-term dialysis. We will talk to marriage and family social worker to help arrange. Diabetes mellitus type 2: Metformin has been discontinued. A1c 6.9. Continue Accu-Cheks. Elevated ammonia level with history of alcohol use: Ammonia level now back to baseline. Continue lactulose but hold with parameters in place. reports patient with history of alcohol use but this was stopped many years ago. Anemia of chronic disease: We will monitor this closely. We will check iron and B12 studies. Maintain hemoglobin above 7.0. History of alcohol/tobacco abuse: Suspect underlying COPD. Pulmonology to evaluate. Continue as above. Migraine headaches: Restart Topamax. Will provide medication for pain. BPH: Restart Flomax. Time Spent Managing Pts Care (In Minutes): 55
--- NOTE | 2020-09-11 14:05 | PN ---
Date of Progress Note: 09/11/2020 Subjective: The patient was admitted with acute kidney injury secondary to hepatorenal. The patient oliguric, was initiated on dialysis yesterday, had 1 session of dialysis. The patient's urine output has been improved to 550. Physical Examination: Vital Signs: Blood pressure 140/82, respiratory rate 23, pulse of 105. Chest: Crackles bilateral. Heart: S1, S2. Systolic murmur. Abdomen: Soft, nontender. Extremity: Trace edema deformity on the right leg old fracture. Neuro: The patient has been received Ativan because of altered mental status yesterday. Laboratory Data: WBC 5.9, H and H 12.1/35.8, platelets 155. Sodium 135, potassium 3.7, bicarb 29, BUN 55, creatinine 4.9, calcium 8.1, phosphorus 5, magnesium 2.4. PTH 197. Chest x-ray, cardiomegaly. Current Medications: The patient on include; 1. Ceftriaxone. 2. Calcium carbonate. 3. Lactulose. 4. Folic acid. 5. Thiamin. Assessment And Plan: 1. Acute kidney injury secondary to hepatorenal, oliguric. I am going to arrange for another session of dialysis today depending on the chest x-ray as the patient had respiratory distress yesterday. 2. Hypertension, controlled. We will utilize the blood pressure to establish better volume control. 3. Hepatic encephalopathy. Follow up with primary. 4. Acidosis secondary to renal failure. As the patient was started on dialysis, it has been corrected. Keep holding bicarb drip for the time being. 5. Hyperkalemia, resolved. time spend exam the patient face to face , discussing with patient , reviewing la and radiology date, placing order , discussing the case with staff and with other team consultan and hospitalist 45 min. SUNIL Voice ID: [id number] Report ID: [id number] JULIETTE
[2020-09-11] MEDS ORDERED: METHYLPREDNISOLONE 40 MG INJ ONE (17:01)
[2020-09-11] MEDS: METHYLPREDNISOLONE 40 MG INJ IV SCH (17:09)
[2020-09-11] MEDS ORDERED: LORazepam 2 MG/ML VIAL ONE (18:04)
[2020-09-11] MEDS: LORazepam 2 MG/ML VIAL IV PRN (18:08)
[2020-09-11 18:59] LABS: HBsAG Nonreactive (Nonreactive)
[2020-09-11] MEDS: ARFORMOTEROL TARTRATE 15 MCG/2 ML VIAL.NEB NEB SCH (19:30)
[2020-09-12] MEDS: METHYLPREDNISOLONE 40 MG INJ IV SCH ×3 (00:24→16:05)
[2020-09-12] MEDS ORDERED: METHYLPREDNISOLONE 40 MG INJ ONE ×3 (00:31→16:20)
[2020-09-12] MEDS ORDERED: ONDANSETRON 4 MG/2 ML VIAL ONE (03:44)
[2020-09-12] MEDS: ONDANSETRON 4 MG/2 ML VIAL IV PRN (03:50)
[2020-09-12 05:11] LABS: Absolute Lymphocytes (CBC) 0.1 K/uL (0.7-4.9); Hematocrit 34.6 % (39.6-49.0); Lymphocytes % 1.5 % (15.3-44.8)
[2020-09-12 05:50] LABS: Albumin 2.4 g/dL (3.4-5.0); Bilirubin Total 0.9 mg/dL (0.2-1.0); CKMB Creatine Kinase MB 2.7 ng/mL (0.3-3.6); Magnesium 2.7 mg/dL (1.8-2.4); Phosphorus 4.9 mg/dL (2.5-4.9); Potassium 3.5 mmol/L (3.5-5.1); Protein, Total 6.6 g/dL (6.4-8.2)
[2020-09-12] MEDS ORDERED: LORazepam 2 MG/ML VIAL ONE ×2 (05:58→19:51)
[2020-09-12] MEDS: LORazepam 2 MG/ML VIAL IV PRN ×2 (06:00→19:34)
[2020-09-12] MEDS ORDERED: LORazepam 2 MG/ML VIAL IV ONE (06:35)
[2020-09-12] MEDS: ARFORMOTEROL TARTRATE 15 MCG/2 ML VIAL.NEB NEB SCH ×2 (07:51→23:49)
[2020-09-12] MEDS: ALBUTEROL 2.5 MG/3 ML NEB SOL NEB PRN (07:51)
[2020-09-12] MEDS: IPRATROPIUM BROM 0.5MG/2.5ML NEB PRN ×2 (07:51→23:49)
[2020-09-12] MEDS ORDERED: IPRATROPIUM BROM 0.5MG/2.5ML ONE (07:57)
[2020-09-12] MEDS ORDERED: ALBUTEROL 2.5 MG/3 ML NEB SOL ONE (07:57)
[2020-09-12] MEDS ORDERED: ALTEPLASE 2 MG/VIAL IV SCH (08:00)
--- NOTE | 2020-09-12 08:09 | RAD REPORT ---
EXAM DESCRIPTION: US - Liver Only - 09/12/2020 7:39 am CLINICAL HISTORY: Encephalopathy/abdominal pain COMPARISON: None FINDINGS: The liver has an increased echotexture. Hepatopetal flow. A lesion is not visualized. The spleen measures 11 centimeters. IMPRESSION: Increased hepatic echotexture consistent with fatty infiltration. Unremarkable ultrasound spleen
[2020-09-12] MEDS ORDERED: INSULIN -REGULAR HUMAN 50 UNIT/0.5 ML ML ONE ×5 (08:10→22:35)
--- NOTE | 2020-09-12 08:10 | RAD REPORT ---
EXAM DESCRIPTION: US - Renal Ultrasound-Complete - 09/12/2020 7:39 am CLINICAL HISTORY: Acute renal insufficiency COMPARISON: None. FINDINGS: The right kidney measures 11 cm with an increased echotexture. The left kidney measures 11 cm with an increased echotexture. Hydronephrosis is not seen. A Velazquez catheter is present within a collapsed bladder. IMPRESSION: Increased renal echotexture consistent with parenchymal disease
--- NOTE | 2020-09-12 08:22 | ECHO ---
HEIGHT: 5 ft 1 in WEIGHT: 180 lb 0 oz DATE OF STUDY: 09/11/[address]: Alen Potter DO 2-DIMENSIONAL: YES M.MODE: YES DOPPLER: YES COLOR FLOW: YES TDS: YES PORTABLE: YES DEFINITY: NO BUBBLE STUDY: NO DIAGNOSIS: EVALUATE FOR CONGESTIVE HEART FAILURE CARDIAC HISTORY: CATHERIZATION: NO SURGERY: NO PROSTHETIC VALVE: NO PACEMAKER: NO MEASUREMENTS (cm) DIASTOLIC (NORMALS) SYSTOLIC (NORMALS) IVSd (0.6-1.2) LA Diam (1.9-4.0) LVEF % LVIDd (3.5-5.7) LVIDs (2.0-3.5) %FS % LVPWd (0.6-1.2) Ao Diam (2.0-3.7) 2 DIMENSIONAL ASSESSMENT: RIGHT ATRIUM: NORMAL LEFT ATRIUM: NORMAL RIGHT VENTRICLE: NORMAL LEFT VENTRICLE: NORMAL TRICUSPID VALVE: NORMAL MITRAL VALVE: NORMAL PULMONIC VALVE: NORMAL AORTIC VALVE: NORMAL PERICARDIAL EFFUSION: NONE AORTIC ROOT: NORMAL LEFT VENTRICULAR WALL MOTION: NORMAL LEFT VENTRICULAR EJECTION FRACTION. DOPPLER/COLOR FLOW: NORMAL COMMENTS: TECHNICALLY DIFFICULT STUDY. NORMAL LEFT VENTRICULAR EJECTION FRACTION. DIASTOLIC DYSFUNCTION. TECHNOLOGIST: Hua LEMONS
[2020-09-12] MEDS: CALCIUM CARBONATE 500 MG TAB PO SCH ×3 (08:26→22:08)
[2020-09-12] MEDS: FOLIC ACID 1 MG TABLET PO SCH (08:26)
[2020-09-12] MEDS: LACTULOSE 20 GM/30 ML UCUP PO SCH ×3 (08:26→22:09)
[2020-09-12] MEDS: TAMSULOSIN 0.4 MG SR CAP PO SCH (08:26)
[2020-09-12] MEDS: THIAMINE HCL 100 MG TABLET PO SCH (08:27)
[2020-09-12] MEDS: TOPIRAMATE 25 MG TAB PO SCH (08:27)
[2020-09-12] MEDS: CEFTRIAXONE/SWI 1gm 1 GM/10 ML SYR IV SCH (08:45)
[2020-09-12] MEDS: INSULIN -REGULAR HUMAN 50 UNIT/0.5 ML ML SQ SCH ×4 (08:45→22:13)
[2020-09-12] MEDS: HEPARIN 5000 UNIT/ML 1 ML VIAL SQ SCH (08:45)
[2020-09-12] MEDS ORDERED: HEPARIN 5000 UNIT/ML 1 ML VIAL ONE ×2 (08:47→21:30)
[2020-09-12] MEDS ORDERED: CEFTRIAXONE/SWI 1gm 1 GM/10 ML SYR ONE (08:48)
[2020-09-12 09:25] LABS: Rheumatoid Factor NEG (NEG)
--- NOTE | 2020-09-12 13:23 | P.PN ---
Subjective Date of Service: 09/13/20 Primary Care Provider: unknown Chief Complaint: Weakness Subjective: No new changes Unable to do HD today d/t catheter dysfxn. Physical Examination - Vital Signs Temperature: 98.6 F Blood Pressure: 149/93 Pulse: 100 Respirations: 24 Pulse Ox (%): 96 - Physical Exam General: Other (Acutely ill) HEENT: Atraumatic, Normocephalic Neck: Without JVD or thyroid abnormality Respiratory: Normal air movement Cardiovascular: Normal S1 S2 Gastrointestinal: Soft and benign, Non-distended Musculoskeletal: No clubbing Neurological: Other (Obtunded) Urinary: Other (No bladder distention) - Studies Microbiology Data (last 24 hrs): 09/08/20 17:02 Clean Catch Urine [place] Count - Final No growth. 09/08/20 17:02 Clean Catch Urine - Final No growth. Assessment And Plan - Plan # Oliguric JULIUS likely 2/2 ATN from prolonged prerenal, in the setting of NSAID use Rhabdo mild, unlikely to be contributing to JULIUS HD today to help lessen uremia, attempted but unable d/t femoral HD catheter dysfxn Will need replacement of HD catheter then do HD tomorrow Kidney biopsy tomorrow or as soon as it can be arranged Check Vanc trough level # AMS, unclear etiology, Discussed w/ attending Dr Potter Spinal tap Will start empiric abx for ? encephalitis Send serum B1 level for ? wernicke encephalopathy, & start high dose IV thiamine trial 500 mg tid x 6 doses # Hyperammonemia, ? etio No clear e/o acute or chronic liver failure Probably related to opiate/illicit rx use # Htn BP controlled Monitor
[2020-09-12] MEDS ORDERED: THIAMINE 200 MG/2 ML INJ IVP SCH (14:00)
--- NOTE | 2020-09-12 14:08 | P.PN ---
Subjective Date of Service: 09/12/20 Primary Care Provider: unknown Chief Complaint: weakness Subjective: Other (Patient still with altered mental status. Patient afebrile for 24 hours. Procalcitonin remains elevated.) Physical Examination - Vital Signs Temperature: 98.6 F Blood Pressure: 149/93 Pulse: 100 Respirations: 24 Pulse Ox (%): 96 Assessment & Plan Discharge Plan: Home Plan to discharge in: Greater than 2 days Physician Review Additional Text: Physical exam: Patient was agitated this morning. Patient required Ativan. Patient received dialysis yesterday with improvement of respiratory symptoms. Heart: Regular rate and rhythm Lungs: Crackles to the bases. Some wheezing bilateral Abdomen: Soft nontender nondistended Extremities: Good range of motion no focal deficits. Impression: Fall with rhabdomyolysis Toxic/metabolic encephalopathy etiology unknown Acute renal failure with metabolic acidosis and hyperkalemia with likely underlying chronic renal disease stage V, currently oliguric with ATN suspect related to prolonged prerenal and NSAID use Acute respiratory distress likely from volume overload Diabetes mellitus type 2 Elevated ammonia level with history of alcohol use with underlying fatty liver disease Anemia likely of chronic disease BPH Migraine headaches History of alcohol/tobacco abuse Plan: Fall with rhabdomyolysis: Patient remains confused. Patient still required agitation. Patient afebrile but procalcitonin elevated. Toxic encephalopathy still without significant etiology. Case discussed at length with nephrology. Nephrology recommends spinal tap to further evaluate. Will order radiology to do spinal tap. Case discussed with neurology who agrees with plan of care. Will change IV to medical therapy to cefepime and vancomycin. Will consider high-dose steroids if no infectious cause. Nephrology also plans for renal biopsy. Continue to monitor the patient closely. Patient will likely require long-term dialysis. Social work to work on this. Toxic/metabolic encephalopathy etiology unknown: Case discussed with nephrology. Will order spinal tap to further evaluate. Will change IV Rocephin to IV cefepime and vancomycin. Neurology consulted. Will check B1 level for Warnicke encephalopathy. We will also start high-dose IV thiamine. Acute renal failure with metabolic acidosis and hyperkalemia with likely underlying chronic renal disease stage V, currently oliguric with ATN suspect related to prolonged prerenal and NSAID use: Case discussed at length with nephrology. Nephrology suspects possible autoimmune cause. He recommends renal biopsy to further evaluate. This will be ordered. Respiratory status improved with dialysis. We will monitor this closely. Patient will likely require long- term dialysis. Social work to help arrange. If long-term dialysis required then will have surgery provide permanent catheter. Diabetes mellitus type 2: Home medicationMetformin has been discontinued. A1c 6.9. Continue Accu-Cheks. Elevated ammonia level with history of alcohol use with underlying fatty liver disease: Ammonia level now back to baseline. This likely improved with dialysis. Case discussed at length with nephrology. Continue lactulose but hold with parameters in place. reports patient with history of alcohol use but this was stopped many years ago. Anemia of chronic disease: We will monitor this closely. Maintain hemoglobin above 7.0. History of alcohol/tobacco abuse: Suspect underlying COPD. Pulmonology to evaluate. Discuss further with pulmonology. Migraine headaches: Continue Topamax. Will provide medication for pain. BPH: Continue Flomax. Time Spent Managing Pts Care (In Minutes): 55
[2020-09-12] MEDS: CEFEPIME 1 GM in NA CHLORIDE 0.9% 100 ML IVP SCH (14:34)
[2020-09-12] MEDS ORDERED: VANCOMYCIN 1.5 GM in NA CHLORIDE 0.9% 500 ML IVPB ONE (15:00)
[2020-09-12] MEDS: HYDRALAZINE HCL 20 MG/ML VIAL IV PRN (16:20)
[2020-09-12] MEDS ORDERED: HYDRALAZINE HCL 20 MG/ML VIAL ONE (16:36)
[2020-09-12] MEDS: THIAMINE 200 MG/2 ML INJ IVP SCH (16:56)
[2020-09-12] MEDS ORDERED: ALBUTEROL 2.5 MG/3 ML NEB SOL NEB PRN (17:00)
[2020-09-12] MEDS ORDERED: dexAMETHasone 4 MG/ML VIAL ONE (17:21)
[2020-09-12] MEDS ORDERED: METOPROLOL TAR 25 MG TAB ONE (17:22)
[2020-09-12] MEDS ORDERED: LACTULOSE 20 GM/30 ML UCUP ONE (21:35)
[2020-09-12] MEDS: HYDROCODONE/APAP 10/325 TAB PO PRN (22:54)
[2020-09-12] MEDS ORDERED: HYDROCODONE/APAP 10/325 TAB ONE (23:01)
[2020-09-13] MEDS: METHYLPREDNISOLONE 40 MG INJ IV SCH ×3 (01:00→17:19)
[2020-09-13] MEDS: THIAMINE 200 MG/2 ML INJ IVP SCH ×3 (01:34→17:22)
[2020-09-13] MEDS: TRAMADOL HCL 50 MG TAB PO PRN (01:37)
[2020-09-13] MEDS: ONDANSETRON 4 MG/2 ML VIAL IV PRN (01:37)
[2020-09-13] MEDS ORDERED: METHYLPREDNISOLONE 125 MG INJ ONE (01:41)
[2020-09-13] MEDS ORDERED: THIAMINE 200 MG/2 ML INJ ONE (01:49)
[2020-09-13] MEDS ORDERED: ONDANSETRON 4 MG/2 ML VIAL ONE (01:54)
[2020-09-13] MEDS ORDERED: TRAMADOL HCL 50 MG TAB ONE (01:54)
[2020-09-13 03:58] LABS: Absolute Lymphocytes (CBC) 0.1 K/uL (0.7-4.9); Basophils % 0.1 % (0-1.3); Hematocrit 35.4 % (39.6-49.0); Lymphocytes % 1.1 % (15.3-44.8); MPV 9.9 fL (7.6-11.3); RBC Red Blood Cell Count 3.87 M/uL (4.33-5.43)
[2020-09-13 04:28] LABS: Albumin 2.4 g/dL (3.4-5.0); Magnesium 2.8 mg/dL (1.8-2.4); Potassium 3.6 mmol/L (3.5-5.1)
[2020-09-13 04:33] LABS: Blood Morphology Comment NOT SEEN (NOT SEEN); Platelet Estimate ADEQ
[2020-09-13] MEDS ORDERED: INSULIN -REGULAR HUMAN 50 UNIT/0.5 ML ML ONE (06:26)
[2020-09-13] MEDS: INSULIN -REGULAR HUMAN 50 UNIT/0.5 ML ML SQ SCH ×3 (06:26→17:20)
[2020-09-13] MEDS: ARFORMOTEROL TARTRATE 15 MCG/2 ML VIAL.NEB NEB SCH ×2 (07:59→22:00)
--- NOTE | 2020-09-13 08:44 | RAD REPORT ---
EXAM DESCRIPTION: RAD - Chest Single View - 09/13/2020 7:10 am CLINICAL HISTORY: follow up pulmonary edema/COPD COMPARISON: September 11 TECHNIQUE: AP portable chest image was obtained 09/13/2020 7:10 am . FINDINGS: Lung volumes are low. Bilateral airspace opacification is present showing a mild improveme nt from the September 11 study. Heart and vasculature are normal. No measurable pleural effusion and no p neumothorax. No acute bony abnormality seen. No acute aortic findings suspected. IMPRESSION: Partial clearing of the bilateral pulmonary opacities since prior imaging.
--- NOTE | 2020-09-13 08:45 | P.PN ---
Subjective Date of Service: 09/13/20 Primary Care Provider: unknown Chief Complaint: Weakness Subjective: Other (Patient remains confused. Patient with increased sedation) Physical Examination - Vital Signs Temperature: 98 F Blood Pressure: 175/106 Pulse: 96 Respirations: 14 Pulse Ox (%): 96 Assessment & Plan Discharge Plan: Home Plan to discharge in: Greater than 2 days Physician Review Additional Text: Physical exam: Patient has been given medication for sedation. Increased confusion still noted. Heart: Regular rate and rhythm Lungs: Crackles to the bases. Some wheezing bilateral Abdomen: Soft nontender nondistended Extremities: 1+ pain edema to the lower extremities noted. Good range of motion no focal deficits. Impression: Fall with rhabdomyolysis Toxic/metabolic encephalopathy etiology unknown Acute renal failure with metabolic acidosis and hyperkalemia with likely underlying chronic renal disease stage V, currently oliguric with ATN suspect related to prolonged prerenal and NSAID use Acute respiratory distress likely from volume overload Diabetes mellitus type 2 Elevated ammonia level with history of alcohol use with underlying fatty liver disease Anemia likely of chronic disease BPH Migraine headaches History of alcohol/tobacco abuse Plan: Fall with rhabdomyolysis: Patient remains confused. Patient still requiring medication for sedation. Antibiotics were adjusted yesterday. Now on cefepime and vancomycin due to encephalopathy. Case discussed in detail with neurology, nephrology and pulmonology. Plan for today is for placement of permanent dialysis catheter. Patient will receive dialysis today. Patient also to have radiology assisted spinal tap and renal biopsy to further evaluate his condition. Spoke with in detail concerning plan of care. She agrees with plan. We will continue to monitor the patient closely. Await improvement of confusion. Anticipate improvement with dialysis in place. Toxic/metabolic encephalopathy etiology unknown: Case discussed with nephrology and neurology. IV antibiotics therapy has been adjusted to cefepime and vancomycin. Patient to have spinal tap assisted by radiology. Patient continues with high-dose thiamine. Await B1 level. Acute renal failure with metabolic acidosis and hyperkalemia with likely underlying chronic renal disease stage V, currently oliguric with ATN suspect related to prolonged prerenal and NSAID use: Case discussed at length with nephrology. Nephrology suspects possible autoimmune cause. Patient to have renal biopsy today. Current dialysis catheter malfunctioning. Patient to have permanent dialysis catheter placed today by surgery. This was discussed in detail with who agrees with plan. Anticipate dialysis once placed. Diabetes mellitus type 2: Home medicationMetformin has been discontinued. A1c 6.9. Continue Accu-Cheks. Sliding scale in place. Elevated ammonia level with history of alcohol use with underlying fatty liver disease: Ammonia level now back to baseline. This likely improved with dialysis. Case discussed at length with nephrology. Continue lactulose but hold parameters in place. reports patient with history of alcohol use but this was stopped many years ago. Family liver noted on CT. Anemia of chronic disease: We will monitor this closely. Maintain hemoglobin above 7.0. History of alcohol/tobacco abuse: Suspect underlying COPD. Pulmonology to evaluate. Currently on IV Solu-Medrol and COPD medication. Discuss further with pulmonology. Migraine headaches: Continue Topamax. Will provide medication for pain. BPH: Continue Flomax. Time Spent Managing Pts Care (In Minutes): 55
[2020-09-13] MEDS ORDERED: TAMSULOSIN 0.4 MG SR CAP ONE (09:00)
[2020-09-13] MEDS ORDERED: LACTULOSE 20 GM/30 ML UCUP ONE ×3 (09:00→20:10)
[2020-09-13] MEDS ORDERED: METHYLPREDNISOLONE 40 MG INJ ONE ×2 (09:00→17:16)
[2020-09-13] MEDS ORDERED: CEFEPIME 1 GM/VIAL IV SCH (09:00)
[2020-09-13] MEDS ORDERED: FOLIC ACID 1 MG TABLET ONE (09:00)
[2020-09-13] MEDS: CALCIUM CARBONATE 500 MG TAB PO SCH ×3 (09:00→21:37)
[2020-09-13] MEDS ORDERED: VANCOMYCIN/NS 1 gm 1 GM/250 ML BAG IVPB SCH (09:00)
[2020-09-13] MEDS: CEFEPIME 1 GM in NA CHLORIDE 0.9% 100 ML IVP SCH (09:13)
[2020-09-13] MEDS: TAMSULOSIN 0.4 MG SR CAP PO SCH (09:14)
[2020-09-13] MEDS: FOLIC ACID 1 MG TABLET PO SCH (09:15)
[2020-09-13] MEDS: TOPIRAMATE 25 MG TAB PO SCH (09:15)
[2020-09-13] MEDS: LACTULOSE 20 GM/30 ML UCUP PO SCH ×3 (09:26→20:01)
[2020-09-13] MEDS ORDERED: HYDROCODONE/APAP 10/325 TAB ONE ×2 (09:46→20:08)
[2020-09-13] MEDS ORDERED: HYDRALAZINE HCL 20 MG/ML VIAL ONE (10:18)
[2020-09-13] MEDS ORDERED: NS 0.9% VIAL 40 ML ONE (11:55)
[2020-09-13] MEDS ORDERED: HEPARIN 5000 UNIT/ML 1 ML VIAL ONE ×2 (11:56→20:10)
[2020-09-13] MEDS ORDERED: BUPIVACAINE 0.25% PF 30 ML VIAL ONE (11:56)
[2020-09-13] MEDS ORDERED: NA CHLORIDE 0.9% 500 ML ONE (11:57)
[2020-09-13] MEDS ORDERED: propofoL 200 MG/20 ML VIAL IV ONE (12:10)
[2020-09-13] MEDS ORDERED: MIDAZOLAM HCL 2 MG/2 ML INJ ONE (12:10)
[2020-09-13] MEDS ORDERED: FENTANYL CITR 100 MCG/2 ML ONE (12:10)
[2020-09-13] MEDS ORDERED: LIDOCAINE 2% MPF 5 ML VIAL ONE (12:10)
--- NOTE | 2020-09-13 13:34 | P.OP ---
Preoperative diagnosis: Need for [facility] Hemodialysis - ATN / JULIUS Postoperative diagnosis: Need for Dispatcher [place] Hemodialysis - ATN / JULIUS Primary procedure: Placement of RIGHT Internal Jugular tunnelled hemodialysis catheter Secondary procedure: microintroducer used Other procedure(s): ultrasound guidance , Flouroscopy used Anesthesia: MAC + Local Estimated blood loss: <5cc Specimen: none Findings: dark non-pulstaile blood returned Complications: None Implants: Hemosplit 24 cm tunnelled HD catheter Transferred to: Recovery Room Condition: Good
--- NOTE | 2020-09-13 13:59 | RAD REPORT ---
EXAM DESCRIPTION: RAD - Lumbar Puncture For Dx - 09/13/2020 12:01 pm CLINICAL HISTORY: Altered mental status, abnormal renal function COMPARISON: Lumbar spine 2011 TECHNIQUE: Patient presents for fluoroscopic assisted lumbar puncture. Due to altered mental status, the patient was unable to consent for the procedure. The procedure, risks and alternatives to the pr ocedure were discussed with a family member. Written consent was obtained. . Time-out procedure was performed. The patient was placed in an oblique prone position on the fluoroscopic table. The skin of the lower back was prepped and draped in the usual sterile fashion. Patient has significant degenerative change in the lumbar spine and a right convex scoliotic curvature. The L4 level was selected for access. Sk in and deeper tissues were anesthetized with 1% lidocaine. 22 gauge spinal needle was advanced under fluoroscopic guidance. Due to the patient's mental status, patient was unable to remain still for the procedure. Multiple attempts to access the central canal at this level as well as to other sites wer e unsuccessful. On 2 of the attempts, CSF was observed ; however, no free flow of fluid could be obta ined. Furthermore, the patient's repeated movement resulted in loss of intrathecal positioning of the needle tip. After the numerous, unsuccessful attempts, it was determined that no additional efforts were likely to be successful in this setting. Sterile bandages were placed at the multiple skin puncture sites. The patient was transferred back to the floor for continued care and additional pending procedures. IMPRESSION: Unsuccessful lumbar puncture procedure as detailed. No CSF was obtained.
--- NOTE | 2020-09-13 14:17 | RAD REPORT ---
EXAM DESCRIPTION: [place] Single View09/13/2020 2:11 pm CLINICAL HISTORY: Device placement/central venous catheter placement IMPRESSION: Central venous catheter with its tip in the superior vena cava No pneumothorax
--- NOTE | 2020-09-13 14:24 | RAD REPORT ---
EXAM DESCRIPTION: RAD - Fluoroscopy <1 Hour - 09/13/2020 2:19 pm CLINICAL HISTORY: Device placement central venous catheter placement FINDINGS: A central venous catheter was placed into the superior vena cava. Six fluoroscopic spot im ages are submitted. The examination was performed by Dr. Bacon. Fluoroscopy time 0.2 minutes
[2020-09-13] MEDS ORDERED: THIAMINE HCL 100 MG TABLET ONE (17:16)
--- NOTE | 2020-09-13 17:25 | OP ---
Date of Procedure: 09/13/2020 Surgeon: Wesly Bacon MD, Preoperative Diagnosis: Need for long-term hemodialysis-ATN/JULIUS. Postoperative Diagnosis: Need for long-term hemodialysis-ATN/JULIUS. Procedures Performed: 1.Placement of a right internal jugular tunnel hemodialysis catheter using ultrasound guidance and f luoroscopy. 2.Microintroducer set was used. Anesthesia: MAC plus local with 0.25% Marcaine without epinephrine. Estimated Blood Loss: Less than 5 mL. Specimen: None. Findings: Dark nonpulsatile blood return. Complications: None. Implants: HemoSplit 24 cm tunneled hemodialysis catheter. Disposition: The patient was transferred to recovery room in good condition. Procedure In Detail: After informed consent was obtained, the patient was brought to the operating r oom, prepped and draped in the usual sterile fashion after adequate anesthesia achieved. The patient was placed in steep Trendelenburg position. At this point, ultrasound guidance was used to localize the right internal jugular vein, which was found to be patent. I anesthetized the skin overlying th is and using ultrasound guidance, I cannulated the right internal jugular vein on the first attempt a nd dark red nonpulsatile blood was returned. The microwire was advanced at this point and fluoroscop y confirmed position at the confluence of the superior vena cava. At this point, the tract inferior on the chest was anesthetized appropriately down approximately 8-9 cm distal of the clavicle. At thi s point, the tract was anesthetized with local as described above. I then made a small luis alberto incision overlying the insertion site and placed the microintroducer sheath. The microwire was removed and t he standard wire was advanced at this point. Confirmation was performed once again with fluoroscopy. At the confluence of the SVC, ectopy was noted on the EKG during manipulation of the wire. I then placed the catheter on the tunneling device and tunneled it through the incision made on the chest wa , which was made with an 11 blade down to subcutaneous tissues. The catheter was brought out throu gh the jugular insertion site at this point and the sequential dilatation was performed using Sel[place] er method and the introducer sheath was placed at this point. The second wire out was called at this point and I then introduced the catheter into the jugular vein without evidence of complication. e introducer sheath was then removed. Confirmation of position was confirmed with the fluoroscopy on ce again and both ports flushed and withdrew quite easily. They were then flushed with saline and pa cked with heparin super flush 2 mL per port. The skin incisions were then copiously irrigated and cl osed with interrupted 2-0 nylon and the catheter was secured with the same set of 2-0 nylon and a aj rile dressing was placed over top. The patient tolerated the procedure well without evidence of comp lication and transferred to PACU in good condition. All counts were correct at the end of the case. YOLANDA/RUBEN Voice ID: [id number] Report ID: [id number]
[2020-09-13] MEDS: HEPARIN 5000 UNIT/ML 1 ML VIAL SQ SCH (20:01)
[2020-09-13] MEDS ORDERED: CALCIUM CARBONATE CHEW 500MG TAB ONE (20:08)
[2020-09-13] MEDS ORDERED: ARFORMOTEROL TARTRATE 15 MCG/2 ML VIAL.NEB ONE (20:42)
--- NOTE | 2020-09-13 21:28 | P.PN ---
Subjective Date of Service: 09/13/20 Primary Care Provider: unknown Chief Complaint: Weakness Subjective: No new changes Unable to do HD today d/t catheter dysfxn. Physical Examination - Vital Signs Temperature: 97.8 F Blood Pressure: 141/92 Pulse: 97 Respirations: 21 Pulse Ox (%): 95 - Physical Exam General: Other (appears chronically ill) HEENT: Atraumatic, Normocephalic Neck: Supple Respiratory: Clear to auscultation bilaterally Cardiovascular: Normal S1 S2 Gastrointestinal: Soft and benign, Non-distended Integumentary: Other (Normal temp) Neurological: Other (Obtunded) - Studies Microbiology Data (last 24 hrs): 09/08/20 15:35 Blood - Blood Aerobic Blood Culture - Final No growth in 5 days. 09/08/20 15:35 Blood - Blood Anaerobic Blood Culture - Final No growth in 5 days. 09/08/20 15:25 Blood - Blood Aerobic Blood Culture - Final No growth in 5 days. 09/08/20 15:25 Blood - Blood Anaerobic Blood Culture - Final No growth in 5 days. Assessment And Plan - Plan # Oliguric JULIUS likely 2/2 ATN from prolonged prerenal, in the setting of NSAID use Rhabdo mild, unlikely to be contributing to JULIUS HD today to help lessen uremia Replace HD catheter Kidney biopsy to be done on Wednesday next wk instead of today d/t scheduling crunch Monitor renal panel, I&O # AMS, unclear etiology, Discussed w/ attending Dr Potter Spinal tap Will start empiric IV abx + Dexamethasone +/- IV acyclovir for ? encephalitis Send serum B1 level for ? wernicke encephalopathy, & start high dose IV thiamine trial 500 mg tid x 6 doses # Hyperammonemia, ? etio No clear e/o acute or chronic liver failure +HCV; f/u HCV viral load +HBV acquired natural infection; no e/o chronic HBV Probably related to opiate/illicit rx use # Htn BP controlled Monitor
[2020-09-13] MEDS: HYDROCODONE/APAP 10/325 TAB PO PRN (21:37)
[2020-09-13 22:03] LABS: Potassium 3.9 mmol/L (3.5-5.1)
[2020-09-14] MEDS: INSULIN -REGULAR HUMAN 50 UNIT/0.5 ML ML SQ SCH ×5 (00:54→23:44)
[2020-09-14] MEDS: METHYLPREDNISOLONE 40 MG INJ IV SCH ×3 (00:54→16:26)
[2020-09-14] MEDS: THIAMINE HCL 500 MG in NA CHLORIDE 0.9% 250 ML IV SCH ×2 (00:54→08:05)
[2020-09-14] MEDS ORDERED: INSULIN -REGULAR HUMAN 50 UNIT/0.5 ML ML ONE ×3 (01:08→23:59)
[2020-09-14] MEDS ORDERED: METHYLPREDNISOLONE 40 MG INJ ONE ×4 (01:09→23:58)
[2020-09-14] MEDS ORDERED: THIAMINE 200 MG/2 ML INJ ONE (01:09)
[2020-09-14] MEDS ORDERED: NA CHLORIDE 0.9% 250 ML ONE (01:09)
[2020-09-14 04:18] LABS: Hep C Virus RNA (PCR)log <1.18 log IU/mL
[2020-09-14 05:16] LABS: Absolute Lymphocytes (CBC) 0.1 K/uL (0.7-4.9); Basophils % 0.2 % (0-1.3); Hematocrit 37.7 % (39.6-49.0); Lymphocytes % 0.9 % (15.3-44.8); MPV 9.6 fL (7.6-11.3); RBC Red Blood Cell Count 4.05 M/uL (4.33-5.43)
[2020-09-14 05:46] LABS: Albumin 2.4 g/dL (3.4-5.0); Magnesium 2.7 mg/dL (1.8-2.4); Phosphorus 5.2 mg/dL (2.5-4.9)
[2020-09-14] MEDS ORDERED: HEPARIN 5000 UNIT/ML 1 ML VIAL ONE ×2 (08:03→20:39)
[2020-09-14] MEDS ORDERED: FOLIC ACID 1 MG TABLET ONE (08:03)
[2020-09-14] MEDS ORDERED: LACTULOSE 20 GM/30 ML UCUP ONE ×2 (08:03→14:10)
[2020-09-14] MEDS ORDERED: TAMSULOSIN 0.4 MG SR CAP ONE (08:03)
[2020-09-14] MEDS ORDERED: LORazepam 2 MG/ML VIAL ONE ×3 (08:04→22:00)
[2020-09-14] MEDS: LACTULOSE 20 GM/30 ML UCUP PO SCH ×3 (08:05→21:00)
[2020-09-14] MEDS: TOPIRAMATE 25 MG TAB PO SCH (08:06)
[2020-09-14] MEDS: TAMSULOSIN 0.4 MG SR CAP PO SCH (08:06)
[2020-09-14] MEDS: FOLIC ACID 1 MG TABLET PO SCH (08:06)
[2020-09-14] MEDS: CALCIUM CARBONATE 500 MG TAB PO SCH ×3 (08:06→21:36)
[2020-09-14] MEDS: CEFEPIME 1 GM in NA CHLORIDE 0.9% 100 ML IVP SCH (08:07)
[2020-09-14] MEDS ORDERED: CEFEPIME/SWI 1gm 10 ML ONE (08:07)
[2020-09-14] MEDS: ARFORMOTEROL TARTRATE 15 MCG/2 ML VIAL.NEB NEB SCH ×2 (08:25→19:30)
[2020-09-14] MEDS: HEPARIN 5000 UNIT/ML 1 ML VIAL SQ SCH ×2 (08:30→21:27)
[2020-09-14] MEDS ORDERED: HYDROCODONE/APAP 10/325 TAB ONE ×3 (09:32→22:01)
--- NOTE | 2020-09-14 09:54 | P.PN ---
Subjective Date of Service: 09/14/20 Primary Care Provider: unknown Chief Complaint: Weakness Subjective: Other (Patient remains agitated but stable. Patient in restraints. Patient pulled out right internal jugular dialysis catheter) Physical Examination - Vital Signs Temperature: 98.5 F Blood Pressure: 149/100 Pulse: 88 Respirations: 15 Pulse Ox (%): 98 - Studies Microbiology Data (last 24 hrs): 09/08/20 15:35 Blood - Blood Aerobic Blood Culture - Final No growth in 5 days. 09/08/20 15:35 Blood - Blood Anaerobic Blood Culture - Final No growth in 5 days. 09/08/20 15:25 Blood - Blood Aerobic Blood Culture - Final No growth in 5 days. 09/08/20 15:25 Blood - Blood Anaerobic Blood Culture - Final No growth in 5 days. Assessment & Plan Discharge Plan: Home Plan to discharge in: Greater than 2 days Physician Review Additional Text: Physical exam: Lumbar tap was not successful yesterday. Due to his agitation renal biopsy could not be done. This morning, patient pulled out right internal jugular dialysis catheter. Patient with agitation requiring restraints. Heart: Regular rate and rhythm Lungs: Patient appears stable. No significant distress noted Abdomen: Soft nontender nondistended Extremities: Edema to the lower extremities. Good range of motion. Mentation: Patient with increased agitation. Overall stable. Impression: Toxic/metabolic encephalopathy etiology unknown Fall with rhabdomyolysis Acute renal failure with metabolic acidosis and hyperkalemia with likely underlying chronic renal disease stage V, currently oliguric with ATN suspect related to prolonged prerenal and NSAID use Acute respiratory distress likely from volume overload Diabetes mellitus type 2 Elevated ammonia level with history of alcohol use with underlying fatty liver disease and hepatitis C Anemia likely of chronic disease BPH Migraine headaches History of alcohol/tobacco abuse Plan: Toxic/metabolic encephalopathy etiology unknown: Patient still with agitation likely worse with uremia. Will provide medication for agitation. Currently in restraints. This morning patient pulled out right internal jugular dialysis catheter. Femoral dialysis catheter still in place. Will monitor closely. Blood cultures and urine cultures still negative. Continue IV antibiotic therapy. Spinal tap was unsuccessful yesterday. B1 level pending. Continue thiamine. Continue supportive care. Patient will require sitter to help protect patient and nursing. Will discuss with charge nurse. Surgery has been informed. Surgery plans for of permanent dialysis catheter on Wednesday once stable but will need to make sure patient is more appropriate. Nephrology is informed of current status. Acute renal failure with metabolic acidosis and hyperkalemia with likely underlying chronic renal disease stage V, currently oliguric with ATN suspect related to prolonged prerenal and NSAID use: Right internal jugular dialysis catheter removed by patient today. Femoral dialysis catheter in place. Renal biopsy was postponed till Wednesday. Will discuss with nephrology. Fall with rhabdomyolysis: Overall improved. Will monitor closely. Patient still with agitation and encephalopathy. Continues above Diabetes mellitus type 2: Home medicationMetformin has been discontinued. A1c 6.9. Continue Accu-Cheks. Sliding scale in place. Elevated ammonia level with history of alcohol use with underlying fatty liver disease and hepatitis C: Hepatitis C positive. Fatty liver noted on CT scan. History of alcohol abuse. Await B1 level. Patient on thiamine. Will discuss with nephrology. Anemia of chronic disease: We will monitor this closely. Maintain hemoglobin above 7.0. History of alcohol/tobacco abuse: Suspect underlying COPD. Pulmonology to evaluate. Will transition to oral steroid and continue with COPD medication. Will discuss with pulmonology. Migraine headaches: Continue Topamax. Will provide medication for pain. BPH: Continue Flomax. Time Spent Managing Pts Care (In Minutes): 55
[2020-09-14] MEDS: LORazepam 2 MG/ML VIAL IV PRN ×2 (09:57→23:44)
[2020-09-14] MEDS: ACYCLOVIR INJ 400 MG in NA CHLORIDE 0.9% 100 ML IVPB SCH (11:00)
[2020-09-14 13:13] LABS: Vitamin D 1,25-Dihydroxy Total 16 pg/mL (18-72); Vitamin D,1,25-OH2, D2 <8 pg/mL
--- NOTE | 2020-09-14 13:37 | P.PN ---
Subjective Date of Service: 09/14/20 Primary Care Provider: unknown Chief Complaint: Weakness received this yesterday via a PermCath. He pulled out his PermCath last night. Physical Examination - Vital Signs Temperature: 98.3 F Blood Pressure: 123/96 Pulse: 91 Respirations: 12 Pulse Ox (%): 99 - Physical Exam General: Other (appears acutely ill) HEENT: Atraumatic, Normocephalic Neck: Supple Respiratory: Normal air movement Cardiovascular: Normal S1 S2 Gastrointestinal: Soft and benign Neurological: Other (obtunded) - Studies Microbiology Data (last 24 hrs): 09/08/20 15:35 Blood - Blood Aerobic Blood Culture - Final No growth in 5 days. 09/08/20 15:35 Blood - Blood Anaerobic Blood Culture - Final No growth in 5 days. 09/08/20 15:25 Blood - Blood Aerobic Blood Culture - Final No growth in 5 days. 09/08/20 15:25 Blood - Blood Anaerobic Blood Culture - Final No growth in 5 days. Assessment And Plan - Plan # Oliguric JULIUS likely 2/2 ATN from prolonged prerenal, in the setting of NSAID use Rhabdo mild, unlikely to be contributing to JULIUS HD today to help lessen uremia Permcath accidentally pulled out by pt on 09/13 HD access for today via femoral catheter. We will plan on another PermCath placement on Wednesday. Kidney biopsy to be done on Wednesday next wk instead of today d/t scheduling crunch Monitor renal panel, I&O # AMS, unclear etiology, Discussed w/ attending Dr Potter Spinal tap attempted twice but unsuccessful as patient was unable to lay still. Cont empiric IV abx + Dexamethasone for ? encephalitis. Add IV acyclovir for possible HSV encephalitis F/u serum B1 level for ? wernicke encephalopathy Cont high dose IV thiamine trial 500 mg tid x 6 doses # Hyperammonemia, ? etio No clear e/o acute or chronic liver failure +HCV; f/u HCV viral load +HBV acquired natural infection; no e/o chronic HBV Probably related to opiate/illicit rx use # Htn BP controlled Monitor Physician Review Additional Text: Physical exam: Lumbar tap was not successful yesterday. Due to his agitation renal biopsy could not be done. This morning, patient pulled out right internal jugular dialysis catheter. Patient with agitation requiring restraints. Heart: Regular rate and rhythm Lungs: Patient appears stable. No significant distress noted Abdomen: Soft nontender nondistended Extremities: Edema to the lower extremities. Good range of motion. Mentation: Patient with increased agitation. Overall stable. Impression: Toxic/metabolic encephalopathy etiology unknown Fall with rhabdomyolysis Acute renal failure with metabolic acidosis and hyperkalemia with likely underlying chronic renal disease stage V, currently oliguric with ATN suspect related to prolonged prerenal and NSAID use Acute respiratory distress likely from volume overload Diabetes mellitus type 2 Elevated ammonia level with history of alcohol use with underlying fatty liver disease and hepatitis C Anemia likely of chronic disease BPH Migraine headaches History of alcohol/tobacco abuse Plan: Toxic/metabolic encephalopathy etiology unknown: Patient still with agitation likely worse with uremia. Will provide medication for agitation. Currently in restraints. This morning patient pulled out right internal jugular dialysis catheter. Femoral dialysis catheter still in place. Will monitor closely. Blood cultures and urine cultures still negative. Continue IV antibiotic therapy. Spinal tap was unsuccessful yesterday. B1 level pending. Continue thiamine. Continue supportive care. Patient will require sitter to help protect patient and nursing. Will discuss with charge nurse. Surgery has been informed. Surgery plans for of permanent dialysis catheter on Wednesday once stable but will need to make sure patient is more appropriate. Nephrology is informed of current status. Acute renal failure with metabolic acidosis and hyperkalemia with likely underlying chronic renal disease stage V, currently oliguric with ATN suspect related to prolonged prerenal and NSAID use: Right internal jugular dialysis catheter removed by patient today. Femoral dialysis catheter in place. Renal biopsy was postponed till Wednesday. Will discuss with nephrology. Fall with rhabdomyolysis: Overall improved. Will monitor closely. Patient still with agitation and encephalopathy. Continues above Diabetes mellitus type 2: Home medicationMetformin has been discontinued. A1c 6.9. Continue Accu-Cheks. Sliding scale in place. Elevated ammonia level with history of alcohol use with underlying fatty liver disease and hepatitis C: Hepatitis C positive. Fatty liver noted on CT scan. History of alcohol abuse. Await B1 level. Patient on thiamine. Will discuss with nephrology. Anemia of chronic disease: We will monitor this closely. Maintain hemoglobin above 7.0. History of alcohol/tobacco abuse: Suspect underlying COPD. Pulmonology to evaluate. Will transition to oral steroid and continue with COPD medication. Will discuss with pulmonology. Migraine headaches: Continue Topamax. Will provide medication for pain. BPH: Continue Flomax.
[2020-09-14] MEDS: IPRATROPIUM BROM 0.5MG/2.5ML NEB PRN (19:30)
[2020-09-14] MEDS ORDERED: IPRATROPIUM BROM 0.5MG/2.5ML ONE (19:39)
[2020-09-14] MEDS ORDERED: CALCIUM CARB 500MG/VIT D 200 IU TAB PO ONE (21:12)
[2020-09-14] MEDS: HYDROCODONE/APAP 10/325 TAB PO PRN (21:46)
[2020-09-15] MEDS: METHYLPREDNISOLONE 40 MG INJ IV SCH ×2 (00:02→07:48)
[2020-09-15] MEDS: INSULIN -REGULAR HUMAN 50 UNIT/0.5 ML ML SQ SCH ×4 (05:26→23:51)
[2020-09-15] MEDS: HYDROCODONE/APAP 10/325 TAB PO PRN ×3 (05:27→23:11)
[2020-09-15 05:33] LABS: Absolute Lymphocytes (CBC) 0.1 K/uL (0.7-4.9); Basophils % 0.3 % (0-1.3); Hematocrit 30.3 % (39.6-49.0); Lymphocytes % 0.8 % (15.3-44.8); MPV 9.5 fL (7.6-11.3); RBC Red Blood Cell Count 3.34 M/uL (4.33-5.43)
[2020-09-15] MEDS ORDERED: INSULIN -REGULAR HUMAN 50 UNIT/0.5 ML ML ONE ×3 (05:36→18:10)
[2020-09-15] MEDS ORDERED: HYDROCODONE/APAP 10/325 TAB ONE ×3 (05:38→23:27)
[2020-09-15 05:53] LABS: Albumin 2.1 g/dL (3.4-5.0); Magnesium 2.7 mg/dL (1.8-2.4); Phosphorus 5.3 mg/dL (2.5-4.9); Potassium 4.4 mmol/L (3.5-5.1)
[2020-09-15] MEDS: LACTULOSE 20 GM/30 ML UCUP PO SCH ×3 (07:45→21:05)
[2020-09-15] MEDS: CALCIUM CARBONATE 500 MG TAB PO SCH ×3 (07:45→21:05)
[2020-09-15] MEDS: TOPIRAMATE 25 MG TAB PO SCH (07:46)
[2020-09-15] MEDS: CEFEPIME/SWI 1gm 10 ML IVP SCH (07:46)
[2020-09-15] MEDS: FOLIC ACID 1 MG TABLET PO SCH (07:47)
[2020-09-15] MEDS: TAMSULOSIN 0.4 MG SR CAP PO SCH (07:47)
[2020-09-15] MEDS: HEPARIN 5000 UNIT/ML 1 ML VIAL SQ SCH ×2 (07:48→21:00)
[2020-09-15] MEDS ORDERED: TAMSULOSIN 0.4 MG SR CAP ONE (07:49)
[2020-09-15] MEDS ORDERED: FOLIC ACID 1 MG TABLET ONE (07:49)
[2020-09-15] MEDS ORDERED: HEPARIN 5000 UNIT/ML 1 ML VIAL ONE (07:49)
[2020-09-15] MEDS ORDERED: METHYLPREDNISOLONE 40 MG INJ ONE (07:50)
[2020-09-15] MEDS ORDERED: CEFEPIME/SWI 1gm 10 ML ONE (07:50)
[2020-09-15] MEDS ORDERED: LACTULOSE 20 GM/30 ML UCUP ONE ×3 (07:50→20:03)
[2020-09-15] MEDS: ARFORMOTEROL TARTRATE 15 MCG/2 ML VIAL.NEB NEB SCH ×2 (08:23→20:20)
[2020-09-15] MEDS ORDERED: INSULIN GLARGINE 100 UNITS/ML SQ ONE (08:45)
[2020-09-15] MEDS: LORazepam 2 MG/ML VIAL IV PRN ×2 (08:49→19:00)
[2020-09-15] MEDS: ACYCLOVIR INJ 400 MG in NA CHLORIDE 0.9% 100 ML IVPB SCH (09:00)
[2020-09-15] MEDS ORDERED: LORazepam 2 MG/ML VIAL ONE ×2 (09:06→19:14)
--- NOTE | 2020-09-15 10:33 | P.PN ---
Subjective Date of Service: 09/15/20 Primary Care Provider: unknown Chief Complaint: Weakness Subjective: Other (Patient remains sedated.) Physical Examination - Vital Signs Temperature: 98.6 F Blood Pressure: 135/97 Pulse: 90 Respirations: 14 Pulse Ox (%): 100 Assessment & Plan Discharge Plan: Home Plan to discharge in: Greater than 2 days Physician Review Additional Text: Physical exam: Patient still requiring medication for sedation. Patient sedated this morning. Slight alertness noted. Heart: Regular rate and rhythm Lungs: Patient appears stable. No significant distress noted Abdomen: Soft nontender nondistended Extremities: Mild edema to the lower extremities. Good range of motion. Mentation: Patient with increased agitation. Overall stable. Impression: Toxic/metabolic encephalopathy etiology unknown Fall with rhabdomyolysis Acute renal failure with metabolic acidosis and hyperkalemia with likely underlying chronic renal disease stage V, currently oliguric with ATN suspect related to prolonged prerenal and NSAID use Acute respiratory distress likely from volume overload Diabetes mellitus type 2 Elevated ammonia level with history of alcohol use with underlying fatty liver disease and hepatitis C Anemia likely of chronic disease BPH Migraine headaches History of alcohol/tobacco abuse COPD exacerbation Plan: Toxic/metabolic encephalopathy etiology unknown: Patient remains sedated with medication. Some alertness noted. Will continue with restraints. Patient pulled out right internal jugular dialysis catheter on Wednesday. Femoral dialysis catheter still in place. Will monitor closely. Spoke with surgery. Surgery plans to place new right internal jugular dialysis catheter on Wednesday. Blood cultures and urine cultures still negative. Continue IV antibiotic therapy. Spinal tap was unsuccessful Wednesday. B1 level pending. Continue cuca ine. Continue supportive care. at bedside. Patient will require sitter to help protect patient and nursing. Discontinue IV Solu-Medrol. Change to prednisone taper. Continue COPD medication. Continue current plan of care. Will discuss with surgery, neurology and nephrology. Anticipate improvement with dialysis. Patient would likely require chronic dialysis in the future. Hold off on high-dose steroids for now. I will turn the service over to the hospitalist team tomorrow. I will go our plan of care with him. Acute renal failure with metabolic acidosis and hyperkalemia with likely underlying chronic renal disease stage V, currently oliguric with ATN suspect related to prolonged prerenal and NSAID use: Right internal jugular dialysis catheter removed by patient on Wednesday. Femoral dialysis catheter in place. Renal biopsy was postponed till Wednesday. Case discussed in detail with nephrology and surgery. Surgery plans for dialysis catheter placement tomorrow. Continue with dialysis. Patient will likely require dialysis as an outpatient. Patient to get back to his baseline level. Fall with rhabdomyolysis: Overall improved. Will monitor closely. Patient still with agitation and encephalopathy. Continues above Diabetes mellitus type 2: Home medicationMetformin has been discontinued. A1c 6.9. Continue Accu-Cheks. Sliding scale in place. Solu-Medrol will be changed to prednisone for COPD. Elevated ammonia level with history of alcohol use with underlying fatty liver disease and hepatitis C: Hepatitis C positive. Fatty liver noted on CT scan. History of alcohol abuse. Await B1 level. Patient on thiamine. Continue with nephrology recommendation. Anemia of chronic disease: We will monitor this closely. Maintain hemoglobin above 7.0. History of alcohol/tobacco abuse: We will address once the patient is more alert. reported history of drug abuse in the past. Migraine headaches: Continue Topamax. Will provide medication for pain. BPH: Continue Flomax. COPD exacerbation: Discontinue IV Solu-Medrol. Change to prednisone taper. Continue COPD medication. Time Spent Managing Pts Care (In Minutes): 55
[2020-09-15] MEDS: predniSONE 10 MG TAB PO SCH ×2 (12:57→21:04)
[2020-09-15] MEDS ORDERED: predniSONE 10 MG TAB ONE ×2 (13:14→20:03)
--- NOTE | 2020-09-15 14:54 | P.PN ---
Subjective Date of Service: 09/16/20 Primary Care Provider: unknown Chief Complaint: Weakness Subjective: No new changes Attempted HD yesterday but femoral catheter not working. Physical Examination - Vital Signs Temperature: 98.4 F Blood Pressure: 156/91 Pulse: 78 Respirations: 14 Pulse Ox (%): 98 - Physical Exam General: Other (appears chronically ill) HEENT: Atraumatic, Normocephalic Neck: Supple, Without JVD or thyroid abnormality Respiratory: Normal air movement Cardiovascular: Normal S1 S2, No rubs, No murmurs Gastrointestinal: Soft and benign, Non-distended Neurological: Other (obtunded) Assessment And Plan - Plan # Oliguric JULIUS likely 2/2 ATN from prolonged prerenal, in the setting of NSAID use Rhabdo mild, unlikely to be contributing to JULIUS HD attempted yesterday but femoral catheter not working Permcath accidentally pulled out by pt on 09/13 HD tomorrow, w/ IV mannitol, after permcath replaced tomorrow Kidney biopsy to be done tomorrow Monitor renal panel, I&O # AMS, unclear etiology, Spinal tap attempted twice but unsuccessful as patient was unable to lay still Cont empiric IV abx + Dexamethasone for ? encephalitis. Added IV acyclovir empirically on 09/15 for possible HSV encephalitis F/u serum B1 level for ? wernicke encephalopathy High dose IV thiamine trial 500 mg tid x 6 doses # Hyperammonemia, ? 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
[2020-09-15] MEDS ORDERED: TRAMADOL HCL 50 MG TAB ONE (16:35)
[2020-09-15] MEDS: TRAMADOL HCL 50 MG TAB PO PRN (17:10)
[2020-09-16] MEDS: INSULIN -REGULAR HUMAN 50 UNIT/0.5 ML ML SQ SCH ×4 (05:26→23:51)
[2020-09-16] MEDS ORDERED: INSULIN -REGULAR HUMAN 50 UNIT/0.5 ML ML ONE ×3 (05:40→17:52)
[2020-09-16 05:49] LABS: Absolute Lymphocytes (CBC) 0.2 K/uL (0.7-4.9); Basophils % 0.1 % (0-1.3); Hematocrit 33.5 % (39.6-49.0); Lymphocytes % 1.3 % (15.3-44.8); MPV 10.2 fL (7.6-11.3)
[2020-09-16 06:13] LABS: Magnesium 2.8 mg/dL (1.8-2.4); Potassium 4.4 mmol/L (3.5-5.1)
[2020-09-16] MEDS: ARFORMOTEROL TARTRATE 15 MCG/2 ML VIAL.NEB NEB SCH ×2 (08:00→20:05)
[2020-09-16] MEDS: HEPARIN 5000 UNIT/ML 1 ML VIAL SQ SCH ×2 (08:07→21:26)
[2020-09-16] MEDS: LACTULOSE 20 GM/30 ML UCUP PO SCH ×4 (08:07→22:56)
[2020-09-16] MEDS: predniSONE 10 MG TAB PO SCH ×3 (08:07→22:55)
[2020-09-16] MEDS: FOLIC ACID 1 MG TABLET PO SCH (08:07)
[2020-09-16] MEDS: TAMSULOSIN 0.4 MG SR CAP PO SCH (08:07)
[2020-09-16] MEDS: TOPIRAMATE 25 MG TAB PO SCH (08:08)
[2020-09-16] MEDS: CALCIUM CARBONATE 500 MG TAB PO SCH ×4 (08:08→21:00)
[2020-09-16] MEDS: ACYCLOVIR INJ 400 MG in NA CHLORIDE 0.9% 100 ML IVPB SCH ×2 (08:09→23:33)
[2020-09-16] MEDS ORDERED: MANNITOL 25% 12.5 GM/50 ML VIAL IV ONE (09:00)
[2020-09-16] MEDS ORDERED: CEFEPIME/SWI 1gm 10 ML ONE (09:12)
[2020-09-16 09:17] LABS: Blood Morphology Comment NOT SEEN (NOT SEEN); Platelet Estimate DECR; White Blood Cell Scan OK (OK)
[2020-09-16] MEDS ORDERED: NA CHLORIDE 0.9% 500 ML ONE (09:19)
[2020-09-16] MEDS ORDERED: NS 0.9% VIAL 10 ML ONE (10:14)
[2020-09-16] MEDS ORDERED: MIDAZOLAM HCL 2 MG/2 ML INJ ONE ×2 (10:19→12:22)
[2020-09-16] MEDS ORDERED: propofoL 200 MG/20 ML VIAL IV ONE (10:19)
[2020-09-16] MEDS ORDERED: LIDOCAINE 1% MPF 5 ML VIAL ONE (10:19)
[2020-09-16] MEDS ORDERED: FENTANYL CITR 100 MCG/2 ML ONE ×2 (10:19→12:23)
[2020-09-16] MEDS ORDERED: NA CHLORIDE 0.9% 50 ML ONE (10:28)
[2020-09-16] MEDS: BUPIVACAINE 0.25% PF 30 ML VIAL ONE ×2 (10:43→10:50)
[2020-09-16] MEDS: HEPARIN 5000 UNIT/ML 1 ML VIAL ONE ×2 (10:51→11:10)
[2020-09-16] MEDS ORDERED: ONDANSETRON 4 MG/2 ML VIAL ONE (10:56)
--- NOTE | 2020-09-16 11:13 | P.OP ---
Preoperative diagnosis: Acute Renal Failure Postoperative diagnosis: Acute Renal Failure Primary procedure: Placement of LEFT Internal Jugular tunnelled hemodialysis catheter Secondary procedure: microintroducer used Other procedure(s): ultrasound guidance , Flouroscopy used Anesthesia: MAC + Local Estimated blood loss: ~15 cc Specimen: none Findings: dark non-pulstaile blood returned Complications: None Transferred to: Recovery Room Condition: Good
--- NOTE | 2020-09-16 11:55 | RAD REPORT ---
EXAM DESCRIPTION: RAD - Fluoroscopy <1 Hour - 09/16/2020 11:47 am FINDINGS: There were 32 portable C-arm views submitted from a fluoroscopic assisted placement of a l eft-sided hemodialysis catheter. No suspicious or unexpected finding on the submitted images. Fluoro time was 1.0 minutes. Cumulative dose was 28.4 mGy.
--- NOTE | 2020-09-16 12:03 | RAD REPORT ---
EXAM DESCRIPTION: RAD - Chest Single View - 09/16/2020 11:54 am CLINICAL HISTORY: S/P HD CATH INSERTION LEFT COMPARISON: September 13 TECHNIQUE: AP portable chest image was obtained 09/16/2020 11:54 am . FINDINGS: Portable shallow inspiration exam obtained following placement of a left-sided hemodialysi s catheter. There is no pneumothorax. Catheter tips extending into the proximal to mid SVC. Underlying parenchymal opacification is present accentuated by shallow inspiration. Heart size is nor mal. IMPRESSION: Left-sided hemodialysis catheter in good position. No pneumothorax.
[2020-09-16] MEDS ORDERED: NALOXONE 0.4 MG/ML VIAL ONE (12:23)
--- NOTE | 2020-09-16 13:45 | P.CNS ---
Date of Consult: 09/14/20 60 year old male brought to the ED after found him on the floor, with unknown down time. reported pt has been confused. History of Present Illnes - History of Present Illness Reason for Visit: toxic metabolic encephalopathy with unknown origin - Past Medical History Pulmonary: COPD Heme/Onc: Anemia NOS Endocrine: Diabetes Physical Examination - Vital Signs Temperature: 97 F Blood Pressure: 137/87 Pulse: 96 Respirations: 14 Pulse Ox (%): 100 - Physical Exam General: Confused HEENT: Atraumatic, Normocephalic Neck: Supple Respiratory: Clear to auscultation bilaterally, Normal air movement Cardiovascular: Normal pulses, Regular rate/rhythm Gastrointestinal: Normal bowel sounds Integumentary: No rashes Conclusions/ Impression: Blood cultures and urine cultures are negative. Continue IV antibiotics Monitor CBC and BMP Medical management per primary care team Continue to monitor for signs and symptoms of infection Plan of care discussed with Dr. Schmidt Thank you for the consultation. Time Spent Managing Pts care (In Minutes): 35
--- NOTE | 2020-09-16 16:20 | P.PN ---
Subjective Date of Service: 09/16/20 Primary Care Provider: unknown Chief Complaint: Weakness Patient seen examined at bedside status post lumbar puncture. Patient resting comfortably. Review of Systems is unable to be obtained Physical Examination - Vital Signs Temperature: 97.4 F Blood Pressure: 105/75 Pulse: 91 Respirations: 26 Pulse Ox (%): 100 - Physical Exam General: Other (Patient is recurring medication for sedation as patient is combative and tries to write balance out.) HEENT: Atraumatic, Normocephalic Neck: Supple, 2+ carotid pulse no bruit Respiratory: Clear to auscultation bilaterally, Normal air movement Cardiovascular: No edema, Normal pulses, Regular rate/rhythm Capillary refill: <2 Seconds - Studies Laboratory Last Values WBC 13.00 K/uL (4.3-10.9) H 09/08/20 15:35 RBC 3.89 M/uL (4.33-5.43) L 09/08/20 15:35 Hgb 11.7 g/dL (13.6-17.9) L 09/08/20 15:35 Hct 37.7 % (39.6-49.0) L 09/08/20 15:35 MCV 96.8 fL (80-100) D 09/08/20 15:35 MCH 30.1 pg (27.0-35.0) 09/08/20 15:35 MCHC 31.1 g/dL (32.0-36.0) L 09/08/20 15:35 RDW 15.1 % (12.1-15.2) 09/08/20 15:35 Plt Count 207 K/uL (152-406) 09/08/20 15:35 MPV 9.9 fL (7.6-11.3) 09/08/20 15:35 Neutrophils % 81.2 % (41.7-73.7) H 09/08/20 15:35 Lymphocytes % 2.1 % (15.3-44.8) L 09/08/20 15:35 Monocytes % 16.6 % (3.3-12.3) H 09/08/20 15:35 Eosinophils % 0.0 % (0-4.4) 09/08/20 15:35 Basophils % 0.1 % (0-1.3) 09/08/20 15:35 Absolute Neutrophils 10.6 K/uL (1.8-8.0) H 09/08/20 15:35 Absolute Lymphocytes 0.3 K/uL (0.7-4.9) L 09/08/20 15:35 Absolute Monocytes 2.2 K/uL (0.1-1.3) H 09/08/20 15:35 Absolute Eosinophils 0.0 K/uL (0-0.5) 09/08/20 15:35 Absolute Basophils 0.0 K/uL (0-0.5) 09/08/20 15:35 Platelet Estimate Adeq 09/08/20 15:35 Morphology Comment Not seen (NOT SEEN) 09/08/20 15:35 PT 10.7 SECONDS (9.5-12.5) 09/08/20 15:35 INR 0.93 09/08/20 15:35 APTT 26.0 SECONDS (24.3-36.9) 09/08/20 15:35 Sodium 132 mmol/L (136-145) L 09/08/20 15:35 Potassium 7.4 mmol/L (3.5-5.1) H* 09/08/20 15:35 Chloride 92 mmol/L (98-107) L 09/08/20 15:35 Carbon Dioxide 7 mmol/L (21-32) L* 09/08/20 15:35 BUN 104 mg/dL (7-18) H 09/08/20 15:35 Creatinine 10.40 mg/dL (0.55-1.3) H* 09/08/20 15:35 Whole Bld Creatinine 12.0 mg/dL (0.6-1.3) H* 09/08/20 14:38 Estimated GFR 5 mL/min (=/>90) L 09/08/20 15:35 Glucose 171 mg/dL (74-106) H 09/08/20 15:35 Lactic Acid 7.2 mmol/L (0.4-2.0) H* 09/08/20 15:35 Calcium 6.8 mg/dL (8.5-10.1) L* 09/08/20 15:35 Total Bilirubin 0.8 mg/dL (0.2-1.0) 09/08/20 15:35 Direct Bilirubin 0.4 mg/dL (0-0.2) H 09/08/20 15:35 AST 27 U/L (15-37) 09/08/20 15:35 ALT 32 U/L (12-78) 09/08/20 15:35 Alkaline Phosphatase 98 U/L (45-117) 09/08/20 15:35 Ammonia 103 umol/L (19-54) H 09/08/20 15:35 Creatine Kinase 1869 U/L (39-308) H* 09/08/20 15:35 Rapid Troponin I < 0.02 ng/mL (0.0-0.045) 09/08/20 15:35 NT-Pro-B Natriuret Pep 8201 pg/mL (<125) H 09/08/20 15:35 Serum Total Protein 7.7 g/dL (6.4-8.2) 09/08/20 15:35 Albumin 3.6 g/dL (3.4-5.0) 09/08/20 15:35 Globulin 4.1 g/dL (2.3-3.5) H 09/08/20 15:35 Albumin/Globulin Ratio 0.9 (1.1-1.8) L 09/08/20 15:35 Lipase 307 U/L (73-393) 09/08/20 15:35 Procalcitonin 2.14 ng/mL (<0.050) H 09/08/20 15:35 Urine pH 6.0 (5.0-7.0) 09/08/20 17:08 Ur Specific [place] 1.030 (1.005-1.030) 09/08/20 17:08 Glucose (UA)(Auto) Negative (Negative) 09/08/20 17:08 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 BED MANAGER 09/08/20 17:08 Urine Blood 2+ (Negative) H 09/08/20 17:08 Urine Nitrite Negative (NEG) 09/08/20 17:08 Ur Leukocyte Esterase Negative (NEG) 09/08/20 17:08 Urine RBC 5-10 /HPF (NONE SEEN) H 09/08/20 17:02 Urine WBC 5-10 /HPF (<5) H 09/08/20 17:02 Ur Squamous Epith Cells <5 /HPF (NONE SEEN) 09/08/20 17:02 Amorphous Sediment 2+ /HPF (NONE SEEN) H 09/08/20 17:02 Urine Bacteria 20-50 /HPF (NONE SEEN) H 09/08/20 17:02 Urine Sperm Present (NONE SEEN) H 09/08/20 17:02 Urine Culture Reflexed Reflexed 09/08/20 17:02 Urine Total Protein Negative (NEG) 09/08/20 17:08 Opiates Screen Positive (NEGATIVE) H 09/08/20 17:02 Methadone Screen Negative (NEGATIVE) 09/08/20 17:02 Ur Barbiturates Screen Negative (NEGATIVE) 09/08/20 17:02 Ur Phencyclidine Scrn Negative (NEGATIVE) 09/08/20 17:02 Amphetamines Screen Negative (NEGATIVE) 09/08/20 17:02 Benzodiazepines Screen Negative (NEGATIVE) 09/08/20 17:02 Cocaine Screen Negative (NEGATIVE) 09/08/20 17:02 Ur THC Screen Negative (NEGATIVE) 09/08/20 17:02 Plasma/Serum Alcohol < 10 mg/dL (<10) 09/08/20 15:35 SARS-CoV-2 RNA (RT-PCR) Negative (NEGATIVE) 09/08/20 16:18 Smear Scan Ok (OK) 09/08/20 15:35 ABO/Rh O POSITIVE 09/08/20 15:35 Solid Phase Ab Screen Negative 09/08/20 15:35 Assessment And Plan - Plan Antibiotics Vancomycin Start: 09/13 Stop:-- Cefepime start: 09/15 stop: -- Assessment: -toxic metabolic encephalopathy with unknown origin -leukocytosis -JULIUS with metabolic acidosis -fall with rhabdomyolysis -anemia of chronic disease -COPD exacerbation -diabetes type 2 -history of alcohol/tobacco use Plan: -awaiting results of lumbar puncture performed on 09/15. If results negative can discontinue antibiotics. Origin of encephalopathy not likely due to bacterial infection. Blood cultures negative urine cultures negative. Inflammatory markers down trending. -medical management per primary team -continue monitor CBC and BMP -continue monitor signs infection Plan of care discussed with Dr. Schmidt Thank you for consultation.
--- NOTE | 2020-09-16 16:33 | RAD REPORT ---
EXAM DESCRIPTION: CT - Abdomen Wo Contrast - 09/16/2020 2:19 pm CLINICAL HISTORY: JULIUS COMPARISON: No comparisons TECHNIQUE: Patient presents to the CT suite for CT guided renal biopsy. Earlier in the day the patie nt underwent placement of a hemodialysis catheter as well as a fluoroscopic guided lumbar puncture th at immediately preceded the biopsy attempt. IV access and physiologic monitors were in place prior to the patient arriving to the CT suite. Vital signs were being monitored on an ongoing basis by zeeshan g personnel. Time-out procedure was performed. Patient had been consented for the procedure by a family member or designated guardian earlier in the day. The patient was placed prone on the CT table. Preliminary imaging was obtained. Access site was selec pablo. Conscious sedation medications have been administered. Within a short interval during the lumbar puncture and renal biopsy procedure the patient had received a total of approximately 4 milligrams V ersed IV and 100 micrograms fentanyl IV. The patient was no we were close to being sedated sufficient ly to undergo the biopsy procedure. Repeated moving by the patient precluded initiation of needle arely cement. It was felt that the quantity of additional sedation medication needed to adequately sedate t he patient exceeded would could be safely administered with available personnel. [facility] the time of this procedure. Therefore, the procedure was terminated and attempts will be made to reschedule the procedure at a [facility] when conscious sedation can be administered with the assistance of the anesthesia department esan haque. IMPRESSION: As detailed above, the CT renal biopsy could not be performed. Attends are underway to reschedule the patient for the renal biopsy with the assistance of the anesthesia department kelly castro
--- NOTE | 2020-09-16 16:39 | RAD REPORT ---
EXAM DESCRIPTION: RAD - Lumbar Puncture For Dx - 09/16/2020 1:49 pm CLINICAL HISTORY: Abnormal renal function, dialysis patient, altered mental status COMPARISON: None. TECHNIQUE: Prior to the procedure, the examination, risks and alternatives were discussed with the p atient's family member or designated medical guardian. Oral and written consent were obtained. Time-o ut procedure was performed at the time of the procedure. The patient was placed in an oblique prone position on the fluoroscopic table. IV access and physiolo gic monitors were in place. Due to the patient's altered mental status conscious sedation was require d to perform the procedure. Patient was pre-medicated with a total of 1.0 milligrams Versed at IV and fentanyl 25 micrograms IV. The skin of the lower back was prepped and draped in the usual sterile fa shion. After anesthetizing the skin and deeper soft tissues with 1% lidocaine, a 22 gauge needle was advanced into the thecal sac at the L3 level. Intrathecal placement was confirmed. Blood tinged CSF was observed. Accessing the thecal sac was note d considered a traumatic tap in this setting. The attempt on September 13 was difficult with multiple le vels attempted and blood observed in the needle. This would be 1 potential source for the blood tinge d CSF obtained in this setting. A total of 5 cc of blood tinged CSF was obtained and placed into 4 tubes. The blood tinging did not c lear over the course of tube 1 to tube 4. At the conclusion of the procedure, the needle was withdrawn and a sterile bandage placed over the pu ncture site. There were no immediate complications. Patient's vital signs were stable throughout the procedure. Patient was transferred from the fluoroscopy suite to the CT suite for a pending renal bi opsy. IMPRESSION: Successful fluoroscopic guided lumbar puncture. Approximately 5 cc of blood tinged CSF was obtained. The severity of the blood tinging did not change between tube 1 and tube 4.
[2020-09-16] MEDS: HYDROCODONE/APAP 10/325 TAB PO PRN (16:53)
[2020-09-16] MEDS ORDERED: HYDROCODONE/APAP 10/325 TAB ONE (17:06)
[2020-09-16 17:14] LABS: Body Fluid Source CSF; Color of fluid Red (COLORLESS)
[2020-09-16 17:15] LABS: Appearance VERY TURBID (CLEAR); Body Fluid WBC 213 /mm^3
[2020-09-16] MEDS: LORazepam 2 MG/ML VIAL IV PRN (17:42)
[2020-09-16] MEDS ORDERED: LORazepam 2 MG/ML VIAL ONE (17:57)
[2020-09-16 18:46] LABS: CSF Glucose 170 mg/dL (40-70)
[2020-09-16 20:01] LABS: Fluid Total Volume 4.5 ml
[2020-09-16] MEDS ORDERED: HEPARIN 5000 UNIT/ML 1 ML VIAL ONE (20:56)
[2020-09-16] MEDS: NEPRO SHAKE 237 ML CAN PO SCH (21:00)
--- NOTE | 2020-09-16 21:46 | OP ---
Date of Procedure: 09/16/2020 Surgeon: Wesly Bacon MD, Brief Hpi: The patient is a 60-year-old male who came in with acute renal failure. He had a tempora ry hemodialysis catheter placement in the groin, which became less functional due to position. As greenfield ch, I placed a right internal jugular hemodialysis catheter. He was dialyzed 1 time through this suc cessfully and then he pulled the catheter out as the patient is demented and agitated. As such, I wa s requested to place an additional hemodialysis catheter for long-term hemodialysis. I explained the risks, benefits, and alternatives with the patient's family as well as his girlfriend. They agreed to proceed as indicated. Preoperative Diagnosis: Acute renal failure. Postoperative Diagnosis: Acute renal failure. Procedure Performed: Placement of left internal jugular tunneled hemodialysis catheter using a micro introducer set, fluoroscopic guidance and ultrasound guidance, removal of a right femoral hemodialysi s catheter. Anesthesia: MAC plus local with 0.25% Marcaine without epinephrine. Estimated Blood Loss: Less than 50 cc. Specimen: None. Findings: Dark nonpulsatile blood return. Complications: None. Disposition: The patient was transferred to recovery room in good condition. Procedure In Detail: After informed consent was obtained, patient was brought to the operating room, prepped and draped in the usual sterile fashion. After adequate anesthesia was achieved, the patien t was placed in steep Trendelenburg position. Using ultrasound guidance, I cannulated the left inter nal jugular vein on the first attempt. Dark red nonpulsatile blood was returned. I advanced the karol ro wire with some difficulty, which kept going to the subclavian, but after it was noted to be near t he confluence of the SVC, I made a small luis alberto incision overlying skin and advanced the microintroduce r sheath at this point and I was able to manipulate the micro wire down into the SVC confluence at th is point using fluoroscopic guidance. At this point, I then tunneled the tract on the left chest wal l after making a skin incision and anesthetizing the tract appropriately. Using the tunneling device , a 24 cm curved HemoSplit cuffed catheter was brought out through the insertion site. At this point , I removed the micro wire and advanced the standard wire under fluoroscopic guidance into the conflu ence of the SVC without evidence of complication. At this point, the microintroducer sheath was josey shanna and sequential dilatation was performed using Seldinger technique and the introducer sheath was p laced at this point. There was some difficulty with the introducer sheath as there were difficulties manipulating the wire after the introducer sheath was being advanced, but this was manageable by latasha maggy out the introducer sheath. At this point using fluoroscopic guidance, the wire was then advance d easily at this point. At this point as the wire was in good anatomic position, I removed the wire and placed the catheter into the introducer sheath. At this point using fluoroscopic guidance, I frank ded up to the confluence of the SVC. Dark red nonpulsatile blood was returned through both ports aft er placing and removing the introducer sheath and the catheter was then flushed with saline and withd rew and flushed quite easily. At this point, I then packed with heparin super flush 2 cc per port an d irrigated all skin incisions and closed the insertion site of the neck using an interrupted 3-0 nyl on suture and secured the catheter with 3 sutures to the chest wall and sterile dressing placed over top. The patient was then taken out of Trendelenburg position. At this point, I then turned my atte ntion to the right groin. The area was prepped and draped in the usual sterile fashion and I at this point, cut the 2 sutures holding the right femoral hemodialysis catheter in place and removed the fe moral catheter. At this point using holding pressure in the groin after bleeding had been significan tly reduced, I then placed a single [id number] 3-0 nylon suture over the skin at the insertion s ite and pressure was held for additional 5 minutes and no additional bleeding was appreciated. The p atient tolerated the procedure well without evidence of complication and was transferred to PACU in good condition. All counts were correct at the end of e case. TK/MODL Voice ID: [id number] Report ID: [id number]
[2020-09-16] MEDS ORDERED: predniSONE 10 MG TAB ONE (23:07)
[2020-09-16 23:08] LABS: Body Fluid Source CSF
[2020-09-16 23:09] LABS: Appearance TURBID (CLEAR); Color of fluid Red (COLORLESS)
[2020-09-16] MEDS ORDERED: LACTULOSE 20 GM/30 ML UCUP ONE (23:11)
[2020-09-16 23:36] LABS: Body Fluid WBC 259 /mm^3
--- NOTE | 2020-09-16 23:52 | PN ---
Date of Progress Note: 09/16/2020 Chief Complaint: Acute kidney injury on chronic kidney disease. History Of Present Illness: The patient developed oliguric acute kidney injury secondary to ATN and previous use of nonsteroidal anti-inflammatory medication. He was found to have mild rhabdomyolysis, which was contributory factor to acute kidney injury. On presentation to the hospital, the patient had severe metabolic acidosis and severe hyperkalemia. Apparently, he was taking metformin prior to this admission and this was stopped. The patient is to have a kidney biopsy today to evaluate for po ssible glomerulonephritis and catheter was placed today for dialysis. The patient accidentally remov ed the catheter last week and today he is undergoing placement of dialysis catheter. The patient was started on IV acyclovir empirically for possible HSV encephalitis. He continues to be treated with IV thiamine for encephalopathy. Review of Systems: The patient is confused. Cannot provide review of systems. Physical Examination: Lungs: Diminished breath sounds at bases. Heart: S1, S2. Abdomen: Soft, benign. Extremities: Slight edema. Impression And Plan: 1.Acute kidney injury. The patient has hyperazotemia. The patient will have dialysis today. 2.The patient underwent kidney biopsy. Awaiting results. 3.Rhabdomyolysis due to fall. CK level is gradually improving. 4.Altered mental status. The patient underwent spinal tap to evaluate for etiology of altered menta l status. The patient is already treated with acyclovir empirically for possible HSV encephalitis. EB/MODL Voice ID: [id number] Report ID: [id number]
[2020-09-17] MEDS: HYDROCODONE/APAP 10/325 TAB PO PRN ×3 (00:02→20:10)
[2020-09-17] MEDS ORDERED: HYDROCODONE/APAP 10/325 TAB ONE ×3 (00:18→20:19)
[2020-09-17] MEDS: LORazepam 2 MG/ML VIAL IV PRN ×2 (01:34→21:46)
[2020-09-17] MEDS ORDERED: LORazepam 2 MG/ML VIAL ONE ×2 (01:48→22:02)
[2020-09-17 05:42] LABS: Magnesium 2.2 mg/dL (1.8-2.4); Potassium 5.1 mmol/L (3.5-5.1)
[2020-09-17 05:50] LABS: Absolute Lymphocytes (CBC) 0.3 K/uL (0.7-4.9); Basophils % 0.1 % (0-1.3); Hematocrit 28.3 % (39.6-49.0); Lymphocytes % 1.9 % (15.3-44.8); MPV 10.1 fL (7.6-11.3); RBC Red Blood Cell Count 3.12 M/uL (4.33-5.43)
[2020-09-17] MEDS: INSULIN -REGULAR HUMAN 50 UNIT/0.5 ML ML SQ SCH ×3 (05:53→17:29)
[2020-09-17 06:09] LABS: Phosphorus 3.6 mg/dL (2.5-4.9)
[2020-09-17] MEDS ORDERED: INSULIN -REGULAR HUMAN 50 UNIT/0.5 ML ML ONE ×2 (06:09→12:43)
[2020-09-17] MEDS ORDERED: IPRATROPIUM BROM 0.5MG/2.5ML ONE (08:39)
[2020-09-17] MEDS ORDERED: ALBUTEROL 2.5 MG/3 ML NEB SOL ONE (08:39)
[2020-09-17] MEDS: ARFORMOTEROL TARTRATE 15 MCG/2 ML VIAL.NEB NEB SCH ×2 (08:40→20:00)
[2020-09-17] MEDS: HEPARIN 5000 UNIT/ML 1 ML VIAL SQ SCH ×2 (09:00→20:09)
[2020-09-17] MEDS: NEPRO SHAKE 237 ML CAN PO SCH ×2 (09:00→20:31)
[2020-09-17] MEDS: CEFEPIME/SWI 1gm 10 ML IVP SCH (09:00)
[2020-09-17] MEDS: predniSONE 10 MG TAB PO SCH ×2 (09:00→20:08)
[2020-09-17] MEDS: TAMSULOSIN 0.4 MG SR CAP PO SCH (09:12)
[2020-09-17] MEDS: TOPIRAMATE 25 MG TAB PO SCH (09:12)
[2020-09-17] MEDS: FOLIC ACID 1 MG TABLET PO SCH (09:12)
[2020-09-17] MEDS: LACTULOSE 20 GM/30 ML UCUP PO SCH ×3 (09:13→20:08)
[2020-09-17] MEDS: CALCIUM CARBONATE 500 MG TAB PO SCH ×3 (09:17→20:09)
[2020-09-17] MEDS ORDERED: FOLIC ACID 1 MG TABLET ONE (09:24)
[2020-09-17] MEDS ORDERED: TAMSULOSIN 0.4 MG SR CAP ONE (09:24)
[2020-09-17] MEDS ORDERED: LACTULOSE 20 GM/30 ML UCUP ONE ×3 (09:25→20:19)
[2020-09-17] MEDS ORDERED: CEFEPIME/SWI 1gm 10 ML ONE (09:25)
[2020-09-17] MEDS ORDERED: predniSONE 10 MG TAB ONE ×2 (09:33→20:20)
--- NOTE | 2020-09-17 09:58 | P.PN ---
Subjective Date of Service: 09/17/20 Primary Care Provider: unknown Chief Complaint: Weakness Patient seen examined at bedside, stable. Review of Systems 10-point ROS is otherwise unremarkable Physical Examination - Vital Signs Temperature: 98.2 F Blood Pressure: 141/83 Pulse: 100 Respirations: 14 Pulse Ox (%): 95 - Studies Laboratory Last Values WBC 13.00 K/uL (4.3-10.9) H 09/08/20 15:35 RBC 3.89 M/uL (4.33-5.43) L 09/08/20 15:35 Hgb 11.7 g/dL (13.6-17.9) L 09/08/20 15:35 Hct 37.7 % (39.6-49.0) L 09/08/20 15:35 MCV 96.8 fL (80-100) D 09/08/20 15:35 MCH 30.1 pg (27.0-35.0) 09/08/20 15:35 MCHC 31.1 g/dL (32.0-36.0) L 09/08/20 15:35 RDW 15.1 % (12.1-15.2) 09/08/20 15:35 Plt Count 207 K/uL (152-406) 09/08/20 15:35 MPV 9.9 fL (7.6-11.3) 09/08/20 15:35 Neutrophils % 81.2 % (41.7-73.7) H 09/08/20 15:35 Lymphocytes % 2.1 % (15.3-44.8) L 09/08/20 15:35 Monocytes % 16.6 % (3.3-12.3) H 09/08/20 15:35 Eosinophils % 0.0 % (0-4.4) 09/08/20 15:35 Basophils % 0.1 % (0-1.3) 09/08/20 15:35 Absolute Neutrophils 10.6 K/uL (1.8-8.0) H 09/08/20 15:35 Absolute Lymphocytes 0.3 K/uL (0.7-4.9) L 09/08/20 15:35 Absolute Monocytes 2.2 K/uL (0.1-1.3) H 09/08/20 15:35 Absolute Eosinophils 0.0 K/uL (0-0.5) 09/08/20 15:35 Absolute Basophils 0.0 K/uL (0-0.5) 09/08/20 15:35 Platelet Estimate Adeq 09/08/20 15:35 Morphology Comment Not seen (NOT SEEN) 09/08/20 15:35 PT 10.7 SECONDS (9.5-12.5) 09/08/20 15:35 INR 0.93 09/08/20 15:35 APTT 26.0 SECONDS (24.3-36.9) 09/08/20 15:35 Sodium 132 mmol/L (136-145) L 09/08/20 15:35 Potassium 7.4 mmol/L (3.5-5.1) H* 09/08/20 15:35 Chloride 92 mmol/L (98-107) L 09/08/20 15:35 Carbon Dioxide 7 mmol/L (21-32) L* 09/08/20 15:35 BUN 104 mg/dL (7-18) H 09/08/20 15:35 Creatinine 10.40 mg/dL (0.55-1.3) H* 09/08/20 15:35 Whole Bld Creatinine 12.0 mg/dL (0.6-1.3) H* 09/08/20 14:38 Estimated GFR 5 mL/min (=/>90) L 09/08/20 15:35 Glucose 171 mg/dL (74-106) H 09/08/20 15:35 Lactic Acid 7.2 mmol/L (0.4-2.0) H* 09/08/20 15:35 Calcium 6.8 mg/dL (8.5-10.1) L* 09/08/20 15:35 Total Bilirubin 0.8 mg/dL (0.2-1.0) 09/08/20 15:35 Direct Bilirubin 0.4 mg/dL (0-0.2) H 09/08/20 15:35 AST 27 U/L (15-37) 09/08/20 15:35 ALT 32 U/L (12-78) 09/08/20 15:35 Alkaline Phosphatase 98 U/L (45-117) 09/08/20 15:35 Ammonia 103 umol/L (19-54) H 09/08/20 15:35 Creatine Kinase 1869 U/L (39-308) H* 09/08/20 15:35 Rapid Troponin I < 0.02 ng/mL (0.0-0.045) 09/08/20 15:35 NT-Pro-B Natriuret Pep 8201 pg/mL (<125) H 09/08/20 15:35 Serum Total Protein 7.7 g/dL (6.4-8.2) 09/08/20 15:35 Albumin 3.6 g/dL (3.4-5.0) 09/08/20 15:35 Globulin 4.1 g/dL (2.3-3.5) H 09/08/20 15:35 Albumin/Globulin Ratio 0.9 (1.1-1.8) L 09/08/20 15:35 Lipase 307 U/L (73-393) 09/08/20 15:35 Procalcitonin 2.14 ng/mL (<0.050) H 09/08/20 15:35 Urine pH 6.0 (5.0-7.0) 09/08/20 17:08 Ur Specific Crosby 1.030 (1.005-1.030) 09/08/20 17:08 Glucose (UA)(Auto) Negative (Negative) 09/08/20 17:08 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 09/08/20 17:08 Urine Blood 2+ (Negative) H 09/08/20 17:08 Urine Nitrite Negative (NEG) 09/08/20 17:08 Ur Leukocyte Esterase Negative (NEG) 09/08/20 17:08 Urine RBC 5-10 /HPF (NONE SEEN) H 09/08/20 17:02 Urine WBC 5-10 /HPF (<5) H 09/08/20 17:02 Ur Squamous Epith Cells <5 /HPF (NONE SEEN) 09/08/20 17:02 Amorphous Sediment 2+ /HPF (NONE SEEN) H 09/08/20 17:02 Urine Bacteria 20-50 /HPF (NONE SEEN) H 09/08/20 17:02 Urine Sperm Present (NONE SEEN) H 09/08/20 17:02 Urine Culture Reflexed Reflexed 09/08/20 17:02 Urine Total Protein Negative (NEG) 09/08/20 17:08 Opiates Screen Positive (NEGATIVE) H 09/08/20 17:02 Methadone Screen Negative (NEGATIVE) 09/08/20 17:02 Ur Barbiturates Screen Negative (NEGATIVE) 09/08/20 17:02 Ur Phencyclidine Scrn Negative (NEGATIVE) 09/08/20 17:02 Amphetamines Screen Negative (NEGATIVE) 09/08/20 17:02 Benzodiazepines Screen Negative (NEGATIVE) 09/08/20 17:02 Cocaine Screen Negative (NEGATIVE) 09/08/20 17:02 Ur THC Screen Negative (NEGATIVE) 09/08/20 17:02 Plasma/Serum Alcohol < 10 mg/dL (<10) 09/08/20 15:35 SARS-CoV-2 RNA (RT-PCR) Negative (NEGATIVE) 09/08/20 16:18 Smear Scan Ok (OK) 09/08/20 15:35 ABO/Rh O POSITIVE 09/08/20 15:35 Solid Phase Ab Screen Negative 09/08/20 15:35 Assessment And Plan - Plan Physical Exam: General: Other (Patient is requiring medication for sedation as patient is combative and tries to write balance out.) HEENT: Atraumatic, Normocephalic Neck: Supple, 2+ carotid pulse no bruit Respiratory: Clear to auscultation bilaterally, Normal air movement Cardiovascular: No edema, Normal pulses, Regular rate/rhythm Capillary refill: <2 Seconds Antibiotics Vancomycin Start: 09/13 Stop:-- Cefepime start: 09/15 stop: -- Assessment: -toxic metabolic encephalopathy with unknown origin -leukocytosis -JULIUS with metabolic acidosis -fall with rhabdomyolysis -anemia of chronic disease -COPD exacerbation -diabetes type 2 -history of alcohol/tobacco use Plan: -lumbar puncture performed on 09/15: Showed slight elevation on white blood cell count (259) high glucose (170) elevated protein (68) and elevated RBC (45991) could be possible fungal infection- AFB was ordered on cerebrospinal fluid. Serum fungal titers ordered. QuantiFERON gold ordered as well. Continue current antibiotic treatments until all results are in. Patient does have leukocytosis with left shift. - Blood cultures negative urine cultures negative. Inflammatory markers down trending. -medical management per primary team -continue monitor CBC and BMP -continue monitor signs infection Plan of care discussed with Dr. Schmidt Thank you for consultation. Physician Review Additional Text: Physical exam: Patient still requiring medication for sedation. Patient sedated this morning. Slight alertness noted. Heart: Regular rate and rhythm Lungs: Patient appears stable. No significant distress noted Abdomen: Soft nontender nondistended Extremities: Mild edema to the lower extremities. Good range of motion. Mentation: Patient with increased agitation. Overall stable. Impression: Toxic/metabolic encephalopathy etiology unknown Fall with rhabdomyolysis Acute renal failure with metabolic acidosis and hyperkalemia with likely underlying chronic renal disease stage V, currently oliguric with ATN suspect related to prolonged prerenal and NSAID use Acute respiratory distress likely from volume overload Diabetes mellitus type 2 Elevated ammonia level with history of alcohol use with underlying fatty liver disease and hepatitis C Anemia likely of chronic disease BPH Migraine headaches History of alcohol/tobacco abuse COPD exacerbation Plan: Toxic/metabolic encephalopathy etiology unknown: Patient remains sedated with medication. Some alertness noted. Will continue with restraints. Patient pulled out right internal jugular dialysis catheter on Wednesday. Femoral dialysis catheter still in place. Will monitor closely. Spoke with surgery. Surgery plans to place new right internal jugular dialysis catheter on Wednesday. Blood cultures and urine cultures still negative. Continue IV antibiotic therapy. Spinal tap was unsuccessful Wednesday. B1 level pending. Continue thiamine. Continue supportive care. at bedside. Patient will require sitter to help protect patient and nursing. Discontinue IV Solu-Medrol. Change to prednisone taper. Continue COPD medication. Continue current plan of care. Will discuss with surgery, neurology and nephrology. Anticipate improvement with dialysis. Patient would likely require chronic dialysis in the future. H old off on high-dose steroids for now. I will turn the service over to the hospitalist team tomorrow. I will go our plan of care with him. Acute renal failure with metabolic acidosis and hyperkalemia with likely underlying chronic renal disease stage V, currently oliguric with ATN suspect related to prolonged prerenal and NSAID use: Right internal jugular dialysis catheter removed by patient on Wednesday. Femoral dialysis catheter in place. Renal biopsy was postponed till Wednesday. Case discussed in detail with nephrology and surgery. Surgery plans for dialysis catheter placement tomorrow. Continue with dialysis. Patient will likely require dialysis as an outpatient. Patient to get back to his baseline level. Fall with rhabdomyolysis: Overall improved. Will monitor closely. Patient still with agitation and encephalopathy. Continues above Diabetes mellitus type 2: Home medicationMetformin has been discontinued. A1c 6.9. Continue Accu-Cheks. Sliding scale in place. Solu-Medrol will be changed to prednisone for COPD. Elevated ammonia level with history of alcohol use with underlying fatty liver disease and hepatitis C: Hepatitis C positive. Fatty liver noted on CT scan. History of alcohol abuse. Await B1 level. Patient on thiamine. Continue with nephrology recommendation. Anemia of chronic disease: We will monitor this closely. Maintain hemoglobin above 7.0. History of alcohol/tobacco abuse: We will address once the patient is more alert. reported history of drug abuse in the past. Migraine headaches: Continue Topamax. Will provide medication for pain. BPH: Continue Flomax. COPD exacerbation: Discontinue IV Solu-Medrol. Change to prednisone taper. Continue COPD medication.
--- NOTE | 2020-09-17 11:23 | P.PN ---
Subjective Date of Service: 09/18/20 Primary Care Provider: unknown Chief Complaint: Weakness Rreceived HD today Physical Examination - Vital Signs Temperature: 98.2 F Blood Pressure: 133/88 Pulse: 104 Respirations: 14 Pulse Ox (%): 95 - Physical Exam General: Other (appears chronically ill) HEENT: Atraumatic, Normocephalic Neck: Without JVD or thyroid abnormality Respiratory: Normal air movement Cardiovascular: Normal S1 S2 Gastrointestinal: Soft and benign, Non-distended Musculoskeletal: No swelling Neurological: Other (obtunded, confused) Assessment And Plan - Plan # Oliguric JULIUS likely 2/2 ATN from prolonged prerenal, in the setting of NSAID use Rhabdo mild, unlikely to be contributing to JULIUS Renal US on 09/12 w/ normal-sized kidneys, no hydronephrosis PTH sig elevated at 197, indicative of advanced CKD at least stage 4 at baseline; recheck PTH at some point Permcath accidentally pulled out by pt on 09/13, replaced on 09/16 HD received today Reassess daily for further HD needs Kidney biopsy to be done on 09/19 Monitor renal panel, I&O # AMS, unclear etiology Spinal tap done on 09/15; CSF fluid analysis ? fungal TEAM GUIDE infection; further infxn workup ongoing Cont empiric IV abx + Dexamethasone for ? encephalitis. Added IV acyclovir empirically on 09/15 for possible HSV encephalitis F/u serum B1 level for ? wernicke encephalopathy High dose IV thiamine trial 500 mg tid x 6 doses, followed by 250 mg IV daily x 5 (7 days total therapy trial) # Hyperammonemia, ? 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
[2020-09-17] MEDS ORDERED: ALBUMIN HUMAN 25% 200 ML IV ONE (12:14)
[2020-09-17] MEDS: ACYCLOVIR INJ 400 MG in NA CHLORIDE 0.9% 100 ML IVPB SCH ×2 (15:06→15:08)
[2020-09-17] MEDS ORDERED: HEPARIN 5000 UNIT/ML 1 ML VIAL ONE (20:20)
[2020-09-18] MEDS: INSULIN -REGULAR HUMAN 50 UNIT/0.5 ML ML SQ SCH ×5 (00:12→23:55)
[2020-09-18] MEDS ORDERED: INSULIN -REGULAR HUMAN 50 UNIT/0.5 ML ML ONE ×4 (00:29→18:06)
[2020-09-18 05:40] LABS: Absolute Lymphocytes (CBC) 0.2 K/uL (0.7-4.9); Basophils % 0.1 % (0-1.3); Lymphocytes % 1.8 % (15.3-44.8); MPV 10.3 fL (7.6-11.3); RBC Red Blood Cell Count 2.73 M/uL (4.33-5.43)
[2020-09-18 05:52] LABS: Magnesium 2.1 mg/dL (1.8-2.4); Phosphorus 3.6 mg/dL (2.5-4.9); Potassium 3.7 mmol/L (3.5-5.1)
[2020-09-18] MEDS: LACTULOSE 20 GM/30 ML UCUP PO SCH ×3 (07:16→21:00)
--- NOTE | 2020-09-18 07:59 | P.PN ---
Subjective Date of Service: 09/19/20 Primary Care Provider: unknown Chief Complaint: Weakness Rreceived HD today Physical Examination - Vital Signs Temperature: 98.2 F Blood Pressure: 133/88 Pulse: 104 Respirations: 14 Pulse Ox (%): 95 - Physical Exam General: Other (Appears chronically ill) HEENT: Atraumatic, Normocephalic Neck: Supple Respiratory: Clear to auscultation bilaterally Cardiovascular: No rubs, No murmurs Gastrointestinal: Soft and benign, Non-distended Musculoskeletal: No swelling Integumentary: Other (Normal temp) Neurological: Other (Lethargic) Assessment And Plan - Plan # Oliguric JULIUS likely 2/2 ATN from prolonged prerenal, in the setting of NSAID use Rhabdo mild, unlikely to be contributing to JULIUS Renal US on 09/12 w/ normal-sized kidneys, no hydronephrosis PTH sig elevated at 197, indicative of advanced CKD at least stage 4 at baseline; recheck PTH at some point Permcath accidentally pulled out by pt on 09/13, replaced on 09/16 HD received today x 2 hrs Reassess daily for further HD needs Kidney biopsy to be done on 09/19 Monitor renal panel, I&O # AMS, unclear etiology Spinal tap done on 09/15; CSF fluid analysis ? 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 encephalitis. Added IV acyclovir empirically on 09/15 for possible HSV encephalitis F/u serum B1 level for ? wernicke encephalopathy High dose IV thiamine trial 500 mg tid x 6 doses, followed by 250 mg IV daily x 5 (7 days total therapy trial) # Hyperammonemia, ? etio No clear e/o acute or chronic liver failure +HCV, neg viral load +HBV acquired natural infection; no e/o chronic HBV Probably related to opiate/illicit rx use # Htn BP controlled Monitor Physician Review Additional Text: Physical exam: Patient still requiring medication for sedation. Patient sedated this morning. Slight alertness noted. Heart: Regular rate and rhythm Lungs: Patient appears stable. No significant distress noted Abdomen: Soft nontender nondistended Extremities: Mild edema to the lower extremities. Good range of motion. Mentation: Patient with increased agitation. Overall stable. Impression: Toxic/metabolic encephalopathy etiology unknown Fall with rhabdomyolysis Acute renal failure with metabolic acidosis and hyperkalemia with likely underlying chronic renal disease stage V, currently oliguric with ATN suspect related to prolonged prerenal and NSAID use Acute respiratory distress likely from volume overload Diabetes mellitus type 2 Elevated ammonia level with history of alcohol use with underlying fatty liver disease and hepatitis C Anemia likely of chronic disease BPH Migraine headaches History of alcohol/tobacco abuse COPD exacerbation Plan: Toxic/metabolic encephalopathy etiology unknown: Patient remains sedated with medication. Some alertness noted. Will continue with restraints. Patient pulled out right internal jugular dialysis catheter on Wednesday. Femoral dialysis catheter still in place. Will monitor closely. Spoke with surgery. Surgery plans to place new right internal jugular dialysis catheter on Wednesday. Blood cultures and urine cultures still negative. Continue IV antibiotic therapy. Spinal tap was unsuccessful Wednesday. B1 level pending. Continue thiamine. Continue supportive care. at bedside. Patient will require sitter to help protect patient and nursing. Discontinue IV Solu-Medrol. Change to prednisone taper. Continue COPD medication. Continue current plan of care. Will discuss with surgery, neurology and nephrology. Anticipate improvement with dialysis. Patient would likely require chronic dialysis in the future. Hold off on high-dose steroids for now. I will turn the service over to the hospitalist team tomorrow. I will go our plan of care with him. Acute renal failure with metabolic acidosis and hyperkalemia with likely underlying chronic renal disease stage V, currently oliguric with ATN suspect related to prolonged prerenal and NSAID use: Right internal jugular dialysis catheter removed by patient on Wednesday. Femoral dialysis catheter in place. Renal biopsy was postponed till Wednesday. Case discussed in detail with nephrology and surgery. Surgery plans for dialysis catheter placement tomorrow. Continue with dialysis. Patient will likely require dialysis as an outpatient. Patient to get back to his baseline level. Fall with rhabdomyolysis: Overall improved. Will monitor closely. Patient st ill with agitation and encephalopathy. Continues above Diabetes mellitus type 2: Home medicationMetformin has been discontinued. A1c 6.9. Continue Accu-Cheks. Sliding scale in place. Solu-Medrol will be changed to prednisone for COPD. Elevated ammonia level with history of alcohol use with underlying fatty liver disease and hepatitis C: Hepatitis C positive. Fatty liver noted on CT scan. History of alcohol abuse. Await B1 level. Patient on thiamine. Continue with nephrology recommendation. Anemia of chronic disease: We will monitor this closely. Maintain hemoglobin above 7.0. History of alcohol/tobacco abuse: We will address once the patient is more alert. reported history of drug abuse in the past. Migraine headaches: Continue Topamax. Will provide medication for pain. BPH: Continue Flomax. COPD exacerbation: Discontinue IV Solu-Medrol. Change to prednisone taper. Continue COPD medication.
[2020-09-18] MEDS: ARFORMOTEROL TARTRATE 15 MCG/2 ML VIAL.NEB NEB SCH ×2 (08:24→20:40)
[2020-09-18] MEDS: NEPRO SHAKE 237 ML CAN PO SCH ×2 (09:00→21:00)
[2020-09-18] MEDS: TAMSULOSIN 0.4 MG SR CAP PO SCH (09:02)
[2020-09-18] MEDS: CEFEPIME/SWI 1gm 10 ML IVP SCH ×2 (09:02→09:04)
[2020-09-18] MEDS: FOLIC ACID 1 MG TABLET PO SCH (09:02)
[2020-09-18] MEDS: LORazepam 2 MG/ML VIAL IV PRN ×2 (09:02→21:51)
[2020-09-18] MEDS: HEPARIN 5000 UNIT/ML 1 ML VIAL SQ SCH ×2 (09:03→20:41)
[2020-09-18] MEDS: CALCIUM CARBONATE 500 MG TAB PO SCH ×3 (09:03→20:53)
[2020-09-18] MEDS: TOPIRAMATE 25 MG TAB PO SCH (09:04)
[2020-09-18 09:08] LABS: Blood Morphology Comment NOT SEEN (NOT SEEN); Platelet Estimate DECR; White Blood Cell Scan OK (OK)
[2020-09-18] MEDS: predniSONE 10 MG TAB PO SCH ×2 (09:08→20:53)
[2020-09-18] MEDS ORDERED: HEPARIN 5000 UNIT/ML 1 ML VIAL ONE ×2 (09:09→20:47)
[2020-09-18] MEDS ORDERED: TAMSULOSIN 0.4 MG SR CAP ONE (09:11)
[2020-09-18] MEDS ORDERED: FOLIC ACID 1 MG TABLET ONE (09:11)
[2020-09-18] MEDS ORDERED: LORazepam 2 MG/ML VIAL ONE ×2 (09:11→22:08)
[2020-09-18] MEDS: THIAMINE 200 MG/2 ML INJ IVP SCH (09:11)
[2020-09-18] MEDS ORDERED: CEFEPIME/SWI 1gm 10 ML ONE (09:12)
[2020-09-18] MEDS ORDERED: predniSONE 10 MG TAB ONE ×2 (09:24→20:47)
[2020-09-18] MEDS ORDERED: THIAMINE 200 MG/2 ML INJ ONE (09:28)
--- NOTE | 2020-09-18 09:43 | P.PN ---
Subjective Date of Service: 09/18/20 Primary Care Provider: unknown Chief Complaint: Weakness Patient seen examined at bedside, clinically looks better today. Asking to remove wrist constraints however patient keeps trying to pull out his lines so will keep them placed for now. Review of Systems 10-point ROS is otherwise unremarkable Physical Examination - Vital Signs Temperature: 98.2 F Blood Pressure: 133/88 Pulse: 104 Respirations: 14 Pulse Ox (%): 95 - Studies Temp Pulse Resp BP Pulse Ox 98.2 F 104 H 14 133/88 95 09/18/20 07:59 09/18/20 07:59 09/18/20 07:59 09/18/20 07:59 09/18/20 07:59 Microbiology 09/08/20 15:35 Blood - Blood Aerobic Blood Culture - Final No growth in 5 days. 09/08/20 15:35 Blood - Blood Anaerobic Blood Culture - Final No growth in 5 days. 09/08/20 15:25 Blood - Blood Aerobic Blood Culture - Final No growth in 5 days. 09/08/20 15:25 Blood - Blood Anaerobic Blood Culture - Final No growth in 5 days. 09/08/20 17:02 Clean Catch Urine Stedman Count - Final No growth. 09/08/20 17:02 Clean Catch Urine - Final No growth. Assessment And Plan - Plan Physical Exam: General: Awake and alert. HEENT: Atraumatic, Normocephalic Neck: Supple, 2+ carotid pulse no bruit Respiratory: Clear to auscultation bilaterally, Normal air movement Cardiovascular: No edema, Normal pulses, Regular rate/rhythm Capillary refill: <2 Seconds Antibiotics Vancomycin Start: 09/13 Stop:-- Cefepime start: 09/15 stop: -- Assessment: -toxic metabolic encephalopathy with unknown origin -leukocytosis -JULIUS with metabolic acidosis -fall with rhabdomyolysis -anemia of chronic disease -COPD exacerbation -diabetes type 2 -history of alcohol/tobacco use Plan: -lumbar puncture performed on 09/15: Showed slight elevation on white blood cell count (259) high glucose (170) elevated protein (68) and elevated RBC ([id number]) could be possible fungal infection versus viral- AFB was ordered on cerebrospinal fluid. Serum fungal titers ordered. QuantiFERON gold ordered as well. Awaiting CSF viral load. Continue current antibiotic treatments until all results are in. Leukocytosis resolved. Continue to monitor closely. - Blood cultures negative urine cultures negative. Inflammatory markers down trending. -medical management per primary team -continue monitor CBC and BMP -continue monitor signs infection Plan of care discussed with Dr. Schmidt Thank you for consultation.
[2020-09-18] MEDS: VALPROATE SODIUM INJ 500 MG in NA CHLORIDE 0.9% 100 ML IV SCH ×2 (11:18→17:09)
[2020-09-18] MEDS ORDERED: NA CHLORIDE 0.9% 250 ML ONE (11:41)
[2020-09-18] MEDS ORDERED: ALBUMIN HUMAN 25% 100 ML IV ONE (12:57)
[2020-09-18] MEDS: ACYCLOVIR INJ 400 MG in NA CHLORIDE 0.9% 100 ML IVPB SCH (15:22)
[2020-09-18] MEDS: QUETIAPINE 25 MG TAB PO SCH (17:53)
[2020-09-18] MEDS ORDERED: TRAMADOL HCL 50 MG TAB ONE (20:50)
[2020-09-18] MEDS: TRAMADOL HCL 50 MG TAB PO PRN (20:54)
[2020-09-18] MEDS ORDERED: QUETIAPINE 25 MG TAB PO SCH (21:00)
[2020-09-19] MEDS ORDERED: INSULIN -REGULAR HUMAN 50 UNIT/0.5 ML ML ONE ×5 (00:12→18:55)
[2020-09-19] MEDS: HYDROCODONE/APAP 10/325 TAB PO PRN ×2 (01:01→21:00)
[2020-09-19] MEDS ORDERED: HYDROCODONE/APAP 10/325 TAB ONE ×2 (01:17→20:57)
[2020-09-19 04:03] LABS: Hematocrit 24.7 % (39.6-49.0); MPV 10.4 fL (7.6-11.3); RBC Red Blood Cell Count 2.74 M/uL (4.33-5.43)
[2020-09-19 04:15] LABS: Potassium 3.6 mmol/L (3.5-5.1)
[2020-09-19] MEDS: VALPROATE SODIUM INJ 500 MG in NA CHLORIDE 0.9% 100 ML IV SCH ×3 (05:21→16:36)
[2020-09-19] MEDS: INSULIN -REGULAR HUMAN 50 UNIT/0.5 ML ML SQ SCH ×3 (05:48→18:41)
--- NOTE | 2020-09-19 07:44 | P.PN ---
Subjective Date of Service: 09/20/20 Primary Care Provider: unknown Chief Complaint: Weakness No acute events this morning. Physical Examination - Vital Signs Temperature: 98.2 F Blood Pressure: 133/88 Pulse: 104 Respirations: 14 Pulse Ox (%): 95 - Physical Exam General: Other (appears chronically ill) HEENT: Atraumatic, Normocephalic Neck: Supple Respiratory: Clear to auscultation bilaterally Cardiovascular: No gallops, No rubs, No murmurs Gastrointestinal: Soft and benign, Non-distended Musculoskeletal: No swelling Integumentary: Other (normal temp) Neurological: Normal tone, Normal affect External genitalia: Deferred Rectal: Deferred Assessment And Plan - Plan # Oliguric JULIUS likely 2/2 ATN from prolonged prerenal, in the setting of NSAID use Renal recovery ongoing w/ inc urine output Kidney biopsy cancelled Rhabdo mild, unlikely to be contributing to JULIUS Renal US on 09/12 w/ normal-sized kidneys, no hydronephrosis PTH sig elevated at 197, indicative of advanced CKD at least stage 4 at baseline; recheck PTH at some point Permcath accidentally pulled out by pt on 09/13, replaced on 09/16 HD last received on 09/18 No acute indication for HD today Reassess daily for further HD needs IVF via LR started today to replace insensible fluid losses Monitor renal panel, I&O # AMS, unclear etiology Spinal tap done on 09/15; CSF fluid analysis ? fungal YEAST PUMPER infection; further infxn workup ongoing Cont empiric IV abx + Dexamethasone for ? encephalitis. Added IV acyclovir empirically on 09/15 for possible HSV encephalitis LR IV gtt as above F/u serum B1 level for ? wernicke encephalopathy High dose IV thiamine trial 500 mg tid x 6 doses, followed by 250 mg IV daily x 5 (7 days total therapy trial) # Hyperammonemia, ? 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
[2020-09-19] MEDS: ARFORMOTEROL TARTRATE 15 MCG/2 ML VIAL.NEB NEB SCH ×2 (08:00→20:00)
[2020-09-19] MEDS: NEPRO SHAKE 237 ML CAN PO SCH ×2 (09:00→21:00)
[2020-09-19] MEDS: LACTULOSE 20 GM/30 ML UCUP PO SCH ×3 (09:00→21:00)
--- NOTE | 2020-09-19 09:39 | P.PN ---
Subjective Date of Service: 09/19/20 Primary Care Provider: unknown Chief Complaint: Weakness Patient seen examined at bedside, sleeping comfortably at bedside. Review of Systems 10-point ROS is otherwise unremarkable Physical Examination - Vital Signs Temperature: 98.2 F Blood Pressure: 133/88 Pulse: 104 Respirations: 14 Pulse Ox (%): 95 - Studies Temp Pulse Resp BP Pulse Ox 98.2 F 104 H 14 133/88 95 09/19/20 07:44 09/19/20 07:44 09/19/20 07:44 09/19/20 07:44 09/19/20 07:44 Active Medications Hydrocodone Bitart/Acetaminophen (Hydrocodone/Apap 10/325 Tab) 1 tab PO QID PRN PRN Reason: Pain scale 8-10 (Severe) Last Admin: 09/19/20 01:01 Dose: 1 tab Documented by: Albuterol Sulfate (Albuterol 2.5 Mg/3 Ml Neb Shruthi) 2.5 mg NEB [id number] PRN PRN Reason: SHORTNESS OF BREATH Arformoterol Tartrate (Arformoterol Tartrate 15 Mcg/2 Ml Vial.Neb) 15 mcg NEB BIDRESP [facility] Last Admin: 09/18/20 20:40 Dose: 15 mcg Documented by: Calcium Carbonate/Glycine (Calcium Carbonate 500 Mg Tab) 1,000 mg PO TID [facility] Last Admin: 09/18/20 20:53 Dose: 1,000 mg Documented by: Dextrose (D50w 25 Gm/50 Ml Vial) 12.5 gm IV PRN PRN; Protocol PRN Reason: HYPOGLYCEMIA Enteral Nutritional Formula (Nepro Shake 237 Ml Can) 237 ml PO BID [facility] Last Admin: 09/18/20 21:00 Dose: Not Given Documented by: Folic Acid (Folic Acid 1 Mg Tablet) 1 mg PO DAILY [facility] Last Admin: 09/18/20 09:02 Dose: 1 mg Documented by: Glucagon (Glucagon 1 Mg/Vial) 1 mg IM 1X PRN; Protocol PRN Reason: HYPOGLYCEMIA Heparin Sodium (Porcine) (Heparin 5000 Unit/Ml 1 Ml Vial) 5,000 unit SQ Q12HR [facility] Last Admin: 09/18/20 20:41 Dose: 5,000 unit Documented by: Heparin Sodium (Porcine) (Heparin 1,000 Unit/Ml Vial) 6,000 unit IV EVERY HD PRN PRN Reason: AFTER EACH Last Admin: 09/16/20 23:10 Dose: 6,000 unit Documented by: Hydralazine HCl (Hydralazine Hcl 20 Mg/Ml Vial) 10 mg IV TID PRN PRN Reason: Titrate to SBP (MUST DEFINE) Last Admin: 09/12/20 16:20 Dose: 10 mg Documented by: Vancomycin HCl (Vancomycin 1 Gm/250 Ml Ns Ivpb) 1 gm in 250 mls @ 166.667 mls/hr IVPB EVERY HD [facility] Cefepime HCl (Maxipime 1 Gm/10 Ml Ivp) 10 mls @ 200 mls/hr IVP DAILY [facility] Last Admin: 09/18/20 09:04 Dose: 10 mls Documented by: Acyclovir Sodium 400 mg/ (Sodium Chloride) 108 mls @ 100 mls/hr IVPB DAILY [facility] Last Admin: 09/18/20 15:22 Dose: 108 mls Documented by: Valproate Sodium 500 mg/ (Sodium Chloride) 105 mls @ 100 mls/hr IV Q8HR [facility] Last Admin: 09/19/20 07:47 Dose: Not Given Documented by: Insulin Human Regular (Insulin -Regular Human 50 Unit/0.5 Ml Ml) 0 unit SQ Q6HR [facility]; Protocol Last Admin: 09/19/20 05:48 Dose: 3 unit Documented by: Ipratropium Storden (Ipratropium Brom 0.5mg/2.5ml) 0.5 mg NEB [id number] PRN PRN Reason: SHORTNESS OF BREATH Last Admin: 09/14/20 19:30 Dose: 0.5 mg Documented by: Lactulose (Lactulose 20 Gm/30 Ml Ucup) 10 gm PO TID [facility] Last Admin: 09/18/20 21:00 Dose: Not Given Documented by: Lorazepam (Lorazepam 2 Mg/Ml Vial) 1 mg IV TID PRN PRN Reason: AGITATION Last Admin: 09/18/20 21:51 Dose: 1 mg Documented by: Ondansetron HCl (Ondansetron 4 Mg/2 Ml Vial) 4 mg IV Q8H PRN PRN Reason: NAUSEA / VOMITING Last Admin: 09/13/20 01:37 Dose: 4 mg Documented by: Prednisone (Prednisone 10 Mg Tab) 10 mg PO BID [facility] Last Admin: 09/18/20 20:53 Dose: 10 mg Documented by: Quetiapine Fumarate (Quetiapine 25 Mg Tab) 25 mg PO 1800 [facility] Last Admin: 09/18/20 17:53 Dose: 25 mg Documented by: Sodium Chloride (Flush Normal Saline 10 Ml) 10 ml IV BID [facility] Last Admin: 09/18/20 20:55 Dose: 10 ml Documented by: Tamsulosin HCl (Tamsulosin 0.4 Mg Sr Cap) 0.4 mg PO DAILY [facility] Last Admin: 09/18/20 09:02 Dose: 0.4 mg Documented by: Thiamine HCl (Thiamine 200 Mg/2 Ml Inj) 250 mg IVP DAILY [facility] Stop: 09/22/20 09:01 Last Admin: 09/18/20 09:11 Dose: 250 mg Documented by: Topiramate (Topiramate 25 Mg Tab) 50 mg PO DAILY [facility] Last Admin: 09/18/20 09:04 Dose: 50 mg Documented by: Tramadol HCl (Tramadol Hcl 50 Mg Tab) 50 mg PO TID PRN PRN Reason: Pain scale 5-7 (Moderate) Last Admin: 09/18/20 20:54 Dose: 50 mg Documented by: Microbiology Data (last 24 hrs): Microbiology 09/08/20 15:35 Blood - Blood Aerobic Blood Culture - Final No growth in 5 days. 09/08/20 15:35 Blood - Blood Anaerobic Blood Culture - Final No growth in 5 days. 09/08/20 15:25 Blood - Blood Aerobic Blood Culture - Final No growth in 5 days. 09/08/20 15:25 Blood - Blood Anaerobic Blood Culture - Final No growth in 5 days. 09/08/20 17:02 Clean Catch Urine Nolan Count - Final No growth. 09/08/20 17:02 Clean Catch Urine - Final No growth. Assessment And Plan - Plan Physical Exam: General: Awake and alert. HEENT: Atraumatic, Normocephalic Neck: Supple, 2+ carotid pulse no bruit Respiratory: Clear to auscultation bilaterally, Normal air movement Cardiovascular: No edema, Normal pulses, Regular rate/rhythm Capillary refill: <2 Seconds Antibiotics Vancomycin Start: 09/13 Stop:-- Cefepime start: 09/15 stop: -- Assessment: -toxic metabolic encephalopathy with unknown origin -leukocytosis -JULIUS with metabolic acidosis -fall with rhabdomyolysis -anemia of chronic disease -COPD exacerbation -diabetes type 2 -history of alcohol/tobacco use Plan: -lumbar puncture performed on 09/15: Showed slight elevation on white blood cell count (259) high glucose (170) elevated protein (68) and elevated RBC (62316) could be possible fungal infection versus viral- AFB was ordered on cerebrospinal fluid. Serum fungal titers ordered. QuantiFERON gold ordered as well. Continue current antibiotic treatments until all results are in. Leukocytosis resolved. Continue to monitor closely. - Blood cultures negative urine cultures negative. Inflammatory markers down trending. -medical management per primary team -continue monitor CBC and BMP -continue monitor signs infection Plan of care discussed with Dr. Schmidt Thank you for consultation.
[2020-09-19] MEDS: predniSONE 10 MG TAB PO SCH ×2 (09:48→21:00)
[2020-09-19] MEDS: TAMSULOSIN 0.4 MG SR CAP PO SCH (09:48)
[2020-09-19] MEDS: FOLIC ACID 1 MG TABLET PO SCH (09:48)
[2020-09-19] MEDS: CEFEPIME/SWI 1gm 10 ML IVP SCH (09:48)
[2020-09-19] MEDS: HEPARIN 5000 UNIT/ML 1 ML VIAL SQ SCH (09:48)
[2020-09-19] MEDS: THIAMINE 200 MG/2 ML INJ IVP SCH (09:52)
[2020-09-19] MEDS ORDERED: FOLIC ACID 1 MG TABLET ONE (10:04)
[2020-09-19] MEDS ORDERED: predniSONE 10 MG TAB ONE ×2 (10:04→20:57)
[2020-09-19] MEDS ORDERED: HEPARIN 5000 UNIT/ML 1 ML VIAL ONE (10:04)
[2020-09-19] MEDS ORDERED: TAMSULOSIN 0.4 MG SR CAP ONE (10:05)
[2020-09-19] MEDS ORDERED: CEFEPIME/SWI 1gm 10 ML ONE (10:05)
[2020-09-19] MEDS ORDERED: THIAMINE 200 MG/2 ML INJ ONE (10:10)
[2020-09-19] MEDS: TOPIRAMATE 25 MG TAB PO SCH (10:30)
[2020-09-19] MEDS: CALCIUM CARBONATE 500 MG TAB PO SCH ×3 (10:30→21:00)
[2020-09-19] MEDS ORDERED: Ringers Lactate 1,000 ML IV ONE (12:56)
[2020-09-19] MEDS ORDERED: Ringers Lactate 1,000 ML IV SCH (13:00)
[2020-09-19] MEDS ORDERED: NA CHLORIDE 0.9% 1,000 ML IV SCH (13:00)
[2020-09-19] MEDS: QUETIAPINE 25 MG TAB PO SCH (17:47)
[2020-09-20] MEDS ORDERED: INSULIN -REGULAR HUMAN 50 UNIT/0.5 ML ML ONE ×3 (00:12→12:17)
[2020-09-20] MEDS: INSULIN -REGULAR HUMAN 50 UNIT/0.5 ML ML SQ SCH ×5 (00:17→23:58)
[2020-09-20] MEDS: VALPROATE SODIUM INJ 500 MG in NA CHLORIDE 0.9% 100 ML IV SCH ×3 (00:18→16:57)
[2020-09-20] MEDS: HYDROCODONE/APAP 10/325 TAB PO PRN ×2 (03:30→19:41)
[2020-09-20] MEDS ORDERED: HYDROCODONE/APAP 10/325 TAB ONE ×2 (03:48→19:43)
[2020-09-20 06:25] LABS: Hematocrit 27.2 % (39.6-49.0); MPV 10.7 fL (7.6-11.3); RBC Red Blood Cell Count 2.95 M/uL (4.33-5.43)
[2020-09-20 06:36] LABS: Magnesium 1.9 mg/dL (1.8-2.4); Phosphorus 3.2 mg/dL (2.5-4.9); Potassium 3.3 mmol/L (3.5-5.1)
--- NOTE | 2020-09-20 07:57 | P.PN ---
Subjective Date of Service: 09/20/20 Primary Care Provider: unknown Chief Complaint: Weakness Subjective: No new changes No acute events. Confused. Physical Examination - Vital Signs Temperature: 98.2 F Blood Pressure: 133/88 Pulse: 104 Respirations: 14 Pulse Ox (%): 95 - Physical Exam General: Other (Appears as his stated age) HEENT: Atraumatic, Normocephalic Neck: Supple Respiratory: Diminished Cardiovascular: No rubs, No murmurs Gastrointestinal: Soft and benign, Non-distended Integumentary: No rashes Neurological: Other (Confused) Assessment And Plan - Plan # Oliguric JULIUS likely 2/2 ATN from prolonged prerenal, in the setting of NSAID use Has some renal recovery w/ inc urine output; KBx cancelled SCr increased today likely contributed by large free water deficit D5W IV gtt started today Rhabdo mild, unlikely to be contributing to JULIUS Renal US on 09/12 w/ normal-sized kidneys, no hydronephrosis PTH sig elevated at 197, indicative of advanced CKD at least stage 4 at baseline; recheck PTH at some point Permcath accidentally pulled out by pt on 09/13, replaced on 09/16 HD last received on 09/18 No acute indication for HD today Reassess daily for further HD needs Monitor renal panel, I&O # Hypernatremia Free water deficit 3L Started today on D5W IV gtt Monitor # HypoK Replete conservatively via KCl IV # AMS, unclear etiology, ? HSV encephalitis +/i Wernicke encephalopathy, r/o fungal [employer] infection Spinal tap done on 09/15; CSF fluid analysis ? fungal SERVICES [employer] infection; further infxn workup ongoing Received empiric IV abx + Dexamethasone for ? encephalitis Cont IV acyclovir empirically on 09/15 for possible HSV encephalitis IV fluid as above F/u serum B1 level for ? wernicke encephalopathy High dose IV thiamine trial 500 mg tid x 6 doses, completed, now on 5 days of 250 mg IV daily (7 days total therapy trial) # Hyperammonemia, ? 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
[2020-09-20] MEDS ORDERED: KCL 20 MEQ/100 mL IVPB 20 MEQ/100 ML BAG IV SCH (08:00)
[2020-09-20] MEDS: ARFORMOTEROL TARTRATE 15 MCG/2 ML VIAL.NEB NEB SCH ×2 (08:00→19:45)
[2020-09-20] MEDS: NEPRO SHAKE 237 ML CAN PO SCH ×2 (09:00→21:00)
[2020-09-20] MEDS: LACTULOSE 20 GM/30 ML UCUP PO SCH ×3 (09:00→19:41)
[2020-09-20] MEDS: KCL 20 MEQ/100 mL IVPB 20 MEQ/100 ML BAG IV SCH ×2 (09:27→12:02)
[2020-09-20] MEDS: D5W 1,000 ML IV SCH ×2 (09:28→17:50)
[2020-09-20] MEDS: FOLIC ACID 1 MG TABLET PO SCH (09:28)
[2020-09-20] MEDS: predniSONE 10 MG TAB PO SCH ×2 (09:28→19:42)
[2020-09-20] MEDS: THIAMINE 200 MG/2 ML INJ IVP SCH (09:28)
[2020-09-20] MEDS: CEFEPIME/SWI 1gm 10 ML IVP SCH (09:28)
[2020-09-20] MEDS: TAMSULOSIN 0.4 MG SR CAP PO SCH (09:28)
[2020-09-20] MEDS: CALCIUM CARBONATE 500 MG TAB PO SCH ×3 (09:29→19:45)
[2020-09-20] MEDS: TOPIRAMATE 25 MG TAB PO SCH (09:29)
[2020-09-20] MEDS ORDERED: FOLIC ACID 1 MG TABLET ONE (09:41)
[2020-09-20] MEDS ORDERED: predniSONE 10 MG TAB ONE ×2 (09:41→19:44)
[2020-09-20] MEDS ORDERED: THIAMINE 200 MG/2 ML INJ ONE (09:41)
[2020-09-20] MEDS ORDERED: TAMSULOSIN 0.4 MG SR CAP ONE (09:42)
[2020-09-20] MEDS ORDERED: CEFEPIME/SWI 1gm 10 ML ONE (09:42)
[2020-09-20] MEDS ORDERED: KCL 20 MEQ/100 mL IVPB 20 MEQ/100 ML BAG IV ONE ×2 (09:42→12:18)
[2020-09-20] MEDS ORDERED: D5W 1,000 ML IV ONE (09:43)
--- NOTE | 2020-09-20 10:02 | P.PN ---
Subjective Date of Service: 09/20/20 Primary Care Provider: unknown Chief Complaint: Weakness Patient seen examined at bedside, no acute changes. WBC within normal range. Review of Systems 10-point ROS is otherwise unremarkable Physical Examination - Vital Signs Temperature: 98.2 F Blood Pressure: 133/88 Pulse: 104 Respirations: 14 Pulse Ox (%): 95 - Studies Temp Pulse Resp BP Pulse Ox 98.2 F 104 H 14 133/88 95 09/20/20 07:57 09/20/20 07:57 09/20/20 07:57 09/20/20 07:57 09/20/20 07:57 Assessment And Plan - Plan Physical Exam: General: Awake and alert. HEENT: Atraumatic, Normocephalic Neck: Supple, 2+ carotid pulse no bruit Respiratory: Clear to auscultation bilaterally, Normal air movement Cardiovascular: No edema, Normal pulses, Regular rate/rhythm Capillary refill: <2 Seconds Antibiotics Vancomycin Start: 09/13 Stop:-- Cefepime start: 09/15 stop: -- Assessment: -toxic metabolic encephalopathy with unknown origin -leukocytosis -JULIUS with metabolic acidosis -fall with rhabdomyolysis -anemia of chronic disease -COPD exacerbation -diabetes type 2 -history of alcohol/tobacco use Plan: -lumbar puncture performed on 09/15: Showed slight elevation on white blood cell count (259) high glucose (170) elevated protein (68) and elevated RBC (04416) could be possible fungal infection versus viral- AFB was ordered on cerebrospinal fluid. Serum fungal titers ordered. QuantiFERON gold ordered as well. Continue current antibiotic treatments until all results are in. Leukocytosis resolved. Continue to monitor closely. - Blood cultures negative urine cultures negative. Inflammatory markers down trending. -medical management per primary team -continue monitor CBC and BMP -continue monitor signs infection Plan of care discussed with Dr. Schmidt Thank you for consultation.
--- NOTE | 2020-09-20 10:59 | P.PN ---
Subjective Date of Service: 09/16/20 Chief Complaint: Weakness Patient is a 60-year-old gentleman who came into the hospital with acute on chronic renal insufficiency. Patient ended up with end-stage renal disease. Patient's clinical symptoms have continued to decline. Patient urologically was confused and agitated. He apparently yelled out and has been having to be medicated. Unsure if this is related to his uremia or if he has viral encephalitis. Unable to do a spinal tap. Try to get this scheduled for today if or when stay. Continue with hemodialysis per Nephrology. Renal biopsy was also supposed to be done at the time of hemodialysis catheter placement not think we if we can figure out if patient has viral encephalitis we can narrow the treatment plan. Review of Systems is unable to be obtained Physical Examination - Vital Signs Temperature: 98.2 F Blood Pressure: 133/88 Pulse: 104 Respirations: 14 Pulse Ox (%): 95 - Physical Exam General: Confused Respiratory: Clear to auscultation bilaterally, Normal air movement Cardiovascular: Regular rate/rhythm, Normal S1 S2 Gastrointestinal: Normal bowel sounds, Soft and benign, Non-distended Musculoskeletal: No clubbing Neurological: Normal strength at 5/5 x4 extr, Sensation intact, Cranial nerves 3-12 intact Assessment & Plan - Problems (Diagnosis) (1) ESRD (end stage renal disease) Current Visit: Yes Status: Acute (2) Altered mental status Current Visit: Yes Status: Acute (3) Encephalitis Current Visit: Yes Status: Acute (4) Uremia Current Visit: Yes Status: Acute - Plan Plan: 1. Hemodialysis access catheter 2. Schedule for possible renal biopsy 3. Lumbar puncture fluoroscopy guided 4. Monitor renal function closely as well as strict input and output 5. Neurochecks 6. Antipsychotics 7. GI and DVT prophylaxis Discharge Plan: Home Plan to discharge in: Greater than 2 days - Advance Directives Does patient have a Living Will: No Does patient have a Durable POA for Healthcare: No - Code Status/Comfort Care Code Status Assessed: Yes Code Status: Full Code Critical Care: No Time Spent Managing PTS Care (In Minutes): 45
--- NOTE | 2020-09-20 11:03 | P.PN ---
Date of Service: 09/17/20 Subjective patient still confused. Mentation is still off. Continue with current plan of care at this time. Review of Systems is unable to be obtained Physical Examination - Vital Signs Reviewed - Physical Exam General: Confused Respiratory: Clear to auscultation bilaterally, Normal air movement Cardiovascular: Regular rate/rhythm, Normal S1 S2 Gastrointestinal: Normal bowel sounds, Soft and benign, Non-distended Musculoskeletal: No clubbing Neurological: Normal strength at 5/5 x4 extr, Sensation intact, Cranial nerves 3-12 intact Assessment & Plan - Problems (Diagnosis) (1) ESRD (end stage renal disease) Current Visit: Yes Status: Acute (2) Altered mental status Current Visit: Yes Status: Acute (3) Encephalitis Current Visit: Yes Status: Acute (4) Uremia Current Visit: Yes Status: Acute - Plan Plan: Continue with plan of care as mentioned below 1. Hemodialysis access catheter was placed yesterday. Hemodialysis has been started. Psych and dialysis later today. Mentation is somewhat better. 2. Schedule for possible renal biopsy later this week if mentation is improved 3. Lumbar puncture fluoroscopy guided was performed. White blood cell count is a spinal flu was roughly 200. This indicates patient possibly has a viral encephalitis. Cultures have been negative. Viral antigen was not able to be performed 4. Monitor renal function closely as well as strict input and output 5. Neurochecks 6. Antipsychotics or sedatives as needed 7. GI and DVT prophylaxis Discharge Plan: Home Plan to discharge in: Greater than 2 days - Advance Directives Does patient have a Living Will: No Does patient have a Durable POA for Healthcare: No - Code Status/Comfort Care Code Status Assessed: Yes Code Status: Full Code Critical Care: No Time Spent Managing PTS Care (In Minutes): 45
--- NOTE | 2020-09-20 11:04 | P.PN ---
Date of Service: 09/18/20 Subjective is at bedside and states he is more awake and alert. Otherwise no new complaints. Review of Systems is unable to be obtained Physical Examination - Vital Signs Reviewed - Physical Exam General: Confused Respiratory: Clear to auscultation bilaterally, Normal air movement Cardiovascular: Regular rate/rhythm, Normal S1 S2 Gastrointestinal: Normal bowel sounds, Soft and benign, Non-distended Musculoskeletal: No clubbing Neurological: Normal strength at 5/5 x4 extr, Sensation intact, Cranial nerves 3-12 intact Assessment & Plan - Problems (Diagnosis) (1) ESRD (end stage renal disease) Current Visit: Yes Status: Acute (2) Altered mental status Current Visit: Yes Status: Acute (3) Encephalitis Current Visit: Yes Status: Acute (4) Uremia Current Visit: Yes Status: Acute - Plan Plan: Continue with plan of care as mentioned below 1. Hemodialysis access catheter was placed yesterday. Patient to get 30 hemodialysis up to leave today. Mentation continues to gradually improve 2. Schedule for possible renal biopsy later this week if mentation is improved 3. Continue antiviral therapy per Infectious Disease recommendations. Gentle hydration as well 4. Monitor renal function closely as well as strict input and output 5. Neurochecks 6. Antipsychotics or sedatives as needed 7. GI and DVT prophylaxis Discharge Plan: Home Plan to discharge in: Greater than 2 days - Advance Directives Does patient have a Living Will: No Does patient have a Durable POA for Healthcare: No - Code Status/Comfort Care Code Status Assessed: Yes Code Status: Full Code Critical Care: No Time Spent Managing PTS Care (In Minutes): 45
--- NOTE | 2020-09-20 11:05 | P.PN ---
Date of Service: 09/19/20 Subjective Patient is doing well. Continues to improve. Review of Systems is unable to be obtained Physical Examination - Vital Signs Reviewed - Physical Exam General: Confused Respiratory: Clear to auscultation bilaterally, Normal air movement Cardiovascular: Regular rate/rhythm, Normal S1 S2 Gastrointestinal: Normal bowel sounds, Soft and benign, Non-distended Musculoskeletal: No clubbing Neurological: Normal strength at 5/5 x4 extr, Sensation intact, Cranial nerves 3-12 intact Assessment & Plan - Problems (Diagnosis) (1) ESRD (end stage renal disease) Current Visit: Yes Status: Acute (2) Altered mental status Current Visit: Yes Status: Acute (3) Encephalitis Current Visit: Yes Status: Acute (4) Uremia Current Visit: Yes Status: Acute - Plan Plan: Continue with plan of care as mentioned below 1. Continue hemodialysis per Nephrology recommendation. Arrange for outpatient hemodialysis 2. Urine output has been adequate and Nephrology holding renal biopsy at this time. Also recommending IV hydration 3. Continue antiviral therapy per Infectious Disease recommendations. Gentle hydration as well 4. Monitor renal function closely as well as strict input and output 5. Neurochecks 6. Antipsychotics or sedatives as needed 7. GI and DVT prophylaxis Discharge Plan: Home Plan to discharge in: Greater than 2 days - Advance Directives Does patient have a Living Will: No Does patient have a Durable POA for Healthcare: No - Code Status/Comfort Care Code Status Assessed: Yes Code Status: Full Code Critical Care: No Time Spent Managing PTS Care (In Minutes): 45
--- NOTE | 2020-09-20 11:06 | P.PN ---
Date of Service: 09/20/20 Subjective Started Seroquel. Patient mentation improved. at bedside. Clinical condition continues to gradually improve. Will try to take him off restraints. Review of Systems is unable to be obtained Physical Examination - Vital Signs Reviewed - Physical Exam General: Confused Respiratory: Clear to auscultation bilaterally, Normal air movement Cardiovascular: Regular rate/rhythm, Normal S1 S2 Gastrointestinal: Normal bowel sounds, Soft and benign, Non-distended Musculoskeletal: No clubbing Neurological: Normal strength at 5/5 x4 extr, Sensation intact, Cranial nerves 3-12 intact Assessment & Plan - Problems (Diagnosis) (1) ESRD (end stage renal disease); new onset Current Visit: Yes Status: Acute (2) Altered mental status Current Visit: Yes Status: Acute (3) Viral Encephalitis Current Visit: Yes Status: Acute (4) Uremia encephalopathy Current Visit: Yes Status: Acute - Plan Plan: Continue with plan of care as mentioned below 1. Continue hemodialysis per Nephrology recommendation. Arrange for outpatient hemodialysis 2. Urine output has been adequate and Nephrology holding renal biopsy at this ti me. Also recommending continued IV hydration 3. Continue antiviral therapy per Infectious Disease recommendations. Gentle hydration as well; continue for 2-4 weeks 4. Monitor renal function closely as well as strict input and output 5. Neurochecks 6. Antipsychotics or sedatives as needed 7. GI and DVT prophylaxis
[2020-09-20] MEDS: ACYCLOVIR INJ 400 MG in NA CHLORIDE 0.9% 100 ML IVPB SCH (18:01)
[2020-09-20] MEDS: QUETIAPINE 25 MG TAB PO SCH (18:08)
[2020-09-20] MEDS: IPRATROPIUM BROM 0.5MG/2.5ML NEB PRN (19:45)
[2020-09-20] MEDS ORDERED: IPRATROPIUM BROM 0.5MG/2.5ML ONE (19:59)
[2020-09-21] MEDS ORDERED: INSULIN -REGULAR HUMAN 50 UNIT/0.5 ML ML ONE ×5 (00:16→23:47)
[2020-09-21] MEDS: D5W 1,000 ML IV SCH ×2 (01:45→13:29)
[2020-09-21] MEDS ORDERED: D5W 1,000 ML IV ONE ×2 (02:01→12:16)
[2020-09-21 05:04] LABS: Hematocrit 26.2 % (39.6-49.0); MPV 10.3 fL (7.6-11.3); RBC Red Blood Cell Count 2.85 M/uL (4.33-5.43)
[2020-09-21 05:17] LABS: Magnesium 1.7 mg/dL (1.8-2.4); Phosphorus 2.7 mg/dL (2.5-4.9); Potassium 3.4 mmol/L (3.5-5.1)
[2020-09-21] MEDS: INSULIN -REGULAR HUMAN 50 UNIT/0.5 ML ML SQ SCH ×4 (06:10→23:33)
[2020-09-21] MEDS ORDERED: TAMSULOSIN 0.4 MG SR CAP ONE (08:44)
[2020-09-21] MEDS ORDERED: FOLIC ACID 1 MG TABLET ONE (08:44)
[2020-09-21] MEDS ORDERED: CEFEPIME/SWI 1gm 10 ML ONE (08:45)
[2020-09-21] MEDS: ARFORMOTEROL TARTRATE 15 MCG/2 ML VIAL.NEB NEB SCH ×2 (08:45→19:45)
[2020-09-21] MEDS: NEPRO SHAKE 237 ML CAN PO SCH ×2 (09:00→21:00)
[2020-09-21] MEDS: LACTULOSE 20 GM/30 ML UCUP PO SCH ×3 (09:00→19:10)
[2020-09-21] MEDS: CEFEPIME/SWI 1gm 10 ML IVP SCH (10:02)
[2020-09-21] MEDS: TAMSULOSIN 0.4 MG SR CAP PO SCH (10:02)
[2020-09-21] MEDS: FOLIC ACID 1 MG TABLET PO SCH (10:02)
[2020-09-21] MEDS: TOPIRAMATE 25 MG TAB PO SCH (10:02)
[2020-09-21] MEDS: CALCIUM CARBONATE 500 MG TAB PO SCH ×3 (10:03→19:33)
[2020-09-21] MEDS: predniSONE 10 MG TAB PO SCH ×2 (10:08→19:32)
[2020-09-21] MEDS: THIAMINE 200 MG/2 ML INJ IVP SCH (10:08)
[2020-09-21] MEDS: PANTOPRAZOLE 40MG TABLET PO SCH ×2 (10:08→19:33)
[2020-09-21] MEDS ORDERED: PANTOPRAZOLE 40MG TABLET PO ONE ×2 (10:25→19:40)
[2020-09-21] MEDS ORDERED: predniSONE 10 MG TAB ONE ×2 (10:25→19:40)
[2020-09-21] MEDS ORDERED: THIAMINE 200 MG/2 ML INJ ONE (10:25)
[2020-09-21] MEDS: HYDRALAZINE HCL 20 MG/ML VIAL IV PRN (13:28)
[2020-09-21] MEDS ORDERED: HYDRALAZINE HCL 20 MG/ML VIAL ONE (13:30)
--- NOTE | 2020-09-21 16:26 | P.PN ---
Subjective Date of Service: 09/21/20 Primary Care Provider: unknown Chief Complaint: Weakness Subjective pt with JULIUS , had uremia , required HD now off HD , last HD on 09/18, non oliguric , cr slowlt improving today still confused will cont to hold HD cont d5w Physical exam general: confused Neck; Supple, No elevated JVD hear: RRR, normal S1,2 no murmur or rub Chest: CTAB, no rales or wheezes Abdomen: Soft , Nt Extremities No edema or ulcer A/P # Oliguric JULIUS likely 2/2 ATN from prolonged prerenal +/- NSAID required HD , last treatment on 09/18 UO improving Cr slowly improving Cont to hold HD avoid NSAId and contrast Monitor renal panel, I&O # Hypernatremia cont D5W encourage fluid intake Monitor # HypoK Replete conservatively via KCl IV # AMS with elevated ammonia level ammonia now wnl Spinal tap done on 09/15; CSF fluid analysis Cont IV acyclovir empirically on 09/15 for possible HSV encephalitis # Htn BP controlled Monitor Physical Examination - Vital Signs Temperature: 98.4 F Blood Pressure: 135/95 Pulse: 110 Respirations: 21 Pulse Ox (%): 100
[2020-09-21] MEDS: QUETIAPINE 25 MG TAB PO SCH ×2 (17:55→19:32)
[2020-09-21] MEDS: ACYCLOVIR INJ 400 MG in NA CHLORIDE 0.9% 100 ML IVPB SCH (18:04)
[2020-09-22] MEDS: D5W 1,000 ML IV SCH ×4 (00:18→22:40)
[2020-09-22] MEDS ORDERED: D5W 1,000 ML IV ONE ×3 (00:36→22:57)
[2020-09-22 05:17] LABS: Absolute Lymphocytes (CBC) 0.4 K/uL (0.7-4.9); Basophils % 0.2 % (0-1.3); Hematocrit 25.1 % (39.6-49.0); Lymphocytes % 3.8 % (15.3-44.8); MPV 9.7 fL (7.6-11.3); RBC Red Blood Cell Count 2.74 M/uL (4.33-5.43)
[2020-09-22 05:49] LABS: Potassium 3.2 mmol/L (3.5-5.1)
[2020-09-22 05:52] LABS: Magnesium 1.3 mg/dL (1.8-2.4)
[2020-09-22] MEDS: INSULIN -REGULAR HUMAN 50 UNIT/0.5 ML ML SQ SCH ×4 (06:11→23:41)
[2020-09-22] MEDS ORDERED: INSULIN -REGULAR HUMAN 50 UNIT/0.5 ML ML ONE ×4 (06:18→23:56)
[2020-09-22] MEDS ORDERED: MAGNESIUM SULFATE 1 gm IVPB 1 GM/100 ML BAG IV ONE ×3 (06:30→21:00)
[2020-09-22] MEDS ORDERED: Magnesium Sulfate 2gm IVPB 2 G/50 ML BAG IV ONE ×2 (06:36→07:08)
[2020-09-22] MEDS ORDERED: PANTOPRAZOLE 40MG TABLET PO ONE ×2 (07:47→19:47)
[2020-09-22] MEDS ORDERED: FOLIC ACID 1 MG TABLET ONE (07:47)
[2020-09-22] MEDS ORDERED: predniSONE 10 MG TAB ONE ×2 (07:47→19:48)
[2020-09-22] MEDS ORDERED: TAMSULOSIN 0.4 MG SR CAP ONE (07:48)
[2020-09-22] MEDS ORDERED: LORAZEPAM 0.5 MG TABLET ONE (07:48)
[2020-09-22] MEDS ORDERED: CEFEPIME/SWI 1gm 10 ML ONE (07:49)
[2020-09-22] MEDS: ARFORMOTEROL TARTRATE 15 MCG/2 ML VIAL.NEB NEB SCH ×2 (08:00→19:35)
[2020-09-22] MEDS: LORAZEPAM 0.5 MG TABLET PO PRN (08:20)
[2020-09-22] MEDS: FOLIC ACID 1 MG TABLET PO SCH (08:20)
[2020-09-22] MEDS: TAMSULOSIN 0.4 MG SR CAP PO SCH (08:20)
[2020-09-22] MEDS: CALCIUM CARBONATE 500 MG TAB PO SCH ×3 (08:20→19:33)
[2020-09-22] MEDS: predniSONE 10 MG TAB PO SCH ×2 (08:20→19:33)
[2020-09-22] MEDS: TOPIRAMATE 25 MG TAB PO SCH (08:21)
[2020-09-22] MEDS: PANTOPRAZOLE 40MG TABLET PO SCH ×2 (08:21→19:33)
[2020-09-22] MEDS: CEFEPIME/SWI 1gm 10 ML IVP SCH (08:21)
[2020-09-22] MEDS: NEPRO SHAKE 237 ML CAN PO SCH ×2 (08:22→19:56)
[2020-09-22] MEDS: LACTULOSE 20 GM/30 ML UCUP PO SCH ×3 (08:22→19:56)
[2020-09-22] MEDS: THIAMINE 200 MG/2 ML INJ IVP SCH (09:42)
[2020-09-22] MEDS ORDERED: THIAMINE 200 MG/2 ML INJ ONE (09:59)
[2020-09-22] MEDS ORDERED: POTASSIUM 25 MEQ EFFERV TAB PO ONE (10:02)
--- NOTE | 2020-09-22 10:05 | P.PN ---
Subjective Date of Service: 09/22/20 Primary Care Provider: unknown Chief Complaint: Weakness Subjective pt with JULIUS , had uremia , required HD now off HD , last HD on 09/18, non oliguric , cr slowlt improving today MORE ALERT Cr improving slowly, will cont to hold HD cont d5w , hermelindo reduce rate will replace potassium and Mg Physical exam general: ALRT Neck; Supple, No elevated JVD hear: RRR, normal S1,2 no murmur or rub Chest: CTAB, no rales or wheezes Abdomen: Soft , Nt Extremities No edema or ulcer A/P # Oliguric JULIUS likely 2/2 ATN from prolonged prerenal +/- NSAID required HD , last treatment on 09/18 UO improving Cr slowly improving Cont to hold HD avoid NSAId and contrast Monitor renal panel, I&O # Hypernatremia cont D5W encourage fluid intake Monitor # HypoK replace as needed encouraged food intake cont Nepro, if cr cont to imprrove , will switch to ensure # AMS with elevated ammonia level ammonia now wnl Spinal tap done on 09/15; CSF fluid analysis on cefepime, vanco and IV acyclovir # Htn BP controlled Monitor total time spent 45min Physical Examination - Vital Signs Temperature: 98.9 F Blood Pressure: 143/79 Pulse: 87 Respirations: 20 Pulse Ox (%): 100
[2020-09-22] MEDS ORDERED: POTASSIUM 25 MEQ EFFERV TAB ONE (10:54)
[2020-09-22] MEDS ORDERED: POTASSIUM CL 40 MEQ in NA CHLORIDE 0.9% 500 ML IV SCH (12:10)
[2020-09-22] MEDS: HYDRALAZINE HCL 20 MG/ML VIAL IV PRN (13:27)
[2020-09-22] MEDS ORDERED: HYDRALAZINE HCL 20 MG/ML VIAL ONE (13:45)
[2020-09-22] MEDS: ACYCLOVIR INJ 400 MG in NA CHLORIDE 0.9% 100 ML IVPB SCH (17:46)
--- NOTE | 2020-09-22 18:29 | P.PN ---
Subjective Date of Service: 09/22/20 Primary Care Provider: unknown Chief Complaint: Weakness Subjective: No C/O voiced Physical Examination - Vital Signs Temperature: 98.6 F Blood Pressure: 139/70 Pulse: 88 Respirations: 13 Pulse Ox (%): 98 - Physical Exam General: Alert, Oriented x1 HEENT: Mucous membr. moist/pink Neck: Supple Respiratory: Normal air movement Cardiovascular: Normal pulses Capillary refill: <2 Seconds Gastrointestinal: Normal bowel sounds, Soft and benign, Non-distended Musculoskeletal: No swelling, No contractures Integumentary: No rashes, No breakdown Neurological: Normal speech Urinary: Velazquez catheter Assessment And Plan - Plan Pending AFB results and fungal titers. Continue current antibiotic treatment. Continue to monitor labs Plan of care discussed with Dr. Schmidt Thank you for consultation Physician Review Additional Text: Physical exam: Patient still requiring medication for sedation. Patient sedated this morning. Slight alertness noted. Heart: Regular rate and rhythm Lungs: Patient appears stable. No significant distress noted Abdomen: Soft nontender nondistended Extremities: Mild edema to the lower extremities. Good range of motion. Mentation: Patient with increased agitation. Overall stable. Impression: Toxic/metabolic encephalopathy etiology unknown Fall with rhabdomyolysis Acute renal failure with metabolic acidosis and hyperkalemia with likely underlying chronic renal disease stage V, currently oliguric with ATN suspect related to prolonged prerenal and NSAID use Acute respiratory distress likely from volume overload Diabetes mellitus type 2 Elevated ammonia level with history of alcohol use with underlying fatty liver disease and hepatitis C Anemia likely of chronic disease BPH Migraine headaches History of alcohol/tobacco abuse COPD exacerbation Plan: Toxic/metabolic encephalopathy etiology unknown: Patient remains sedated with medication. Some alertness noted. Will continue with restraints. Patient pulled out right internal jugular dialysis catheter on Wednesday. Femoral dialysis catheter still in place. Will monitor closely. Spoke with surgery. Surgery plans to place new right internal jugular dialysis catheter on Wednesday. Blood cultures and urine cultures still negative. Continue IV antibiotic therapy. Spinal tap was unsuccessful Wednesday. B1 level pending. Continue thiamine. Continue supportive care. at bedside. Patient will require sitter to help protect patient and nursing. Discontinue IV Solu-Medrol. Change to prednisone taper. Continue COPD medication. Continue current plan of care. Will discuss with surgery, neurology and nephrology. Anticipate improvement with dialysis. Patient would likely require chronic dialysis in the future. Hold off on high-dose steroids for now. I will turn the service over to the hospitalist team tomorrow. I will go our plan of care with him. Acute renal failure with metabolic acidosis and hyperkalemia with likely underlying chronic renal disease stage V, currently oliguric with ATN suspect related to prolonged prerenal and NSAID use: Right internal jugular dialysis catheter removed by patient on Wednesday. Femoral dialysis catheter in place. Renal biopsy was postponed till Wednesday. Case discussed in detail with nephrology and surgery. Surgery plans for dialysis catheter placement tomorrow. Continue with dialysis. Patient will likely require dialysis as an outpatient. Patient to get back to his baseline level. Fall with rhabdomyolysis: Overall improved. Will monitor closely. Patient still with agitation and encephalopathy. Continues above Diabetes mellitus type 2: Home medicationMetformin has been discontinued. A1c 6.9. Continue Accu-Cheks. Sliding scale in place. Solu-Medrol will be changed to prednisone for COPD. Elevated ammonia level with history of alcohol use with underlying fatty liver disease and hepatitis C: Hepatitis C positive. Fatty liver noted on CT scan. History of alcohol abuse. Await B1 level. Patient on thiamine. Continue with nephrology recommendation. Anemia of chronic disease: We will monitor this closely. Maintain hemoglobin above 7.0. History of alcohol/tobacco abuse: We will address once the patient is more alert. reported history of drug abuse in the past. Migraine headaches: Continue Topamax. Will provide medication for pain. BPH: Continue Flomax. COPD exacerbation: Discontinue IV Solu-Medrol. Change to prednisone taper. Continue COPD medication.
[2020-09-22] MEDS: QUETIAPINE 25 MG TAB PO SCH (19:33)
[2020-09-23 04:53] LABS: Absolute Lymphocytes (CBC) 0.5 K/uL (0.7-4.9); Basophils % 0.3 % (0-1.3); Hematocrit 23.4 % (39.6-49.0); Lymphocytes % 5.5 % (15.3-44.8); MPV 10.5 fL (7.6-11.3); RBC Red Blood Cell Count 2.55 M/uL (4.33-5.43)
[2020-09-23 05:06] LABS: Magnesium 1.9 mg/dL (1.8-2.4); Potassium 3.3 mmol/L (3.5-5.1)
--- NOTE | 2020-09-23 05:23 | P.PN ---
Date of Service: 09/21/20 Subjective Patient continues to improve with no new complaints. is at bedside. Fence Erector was helping him stay calm. He is following commands better. Awaiting physical therapy evaluation. Review of Systems is unable to be obtained Physical Examination - Vital Signs Reviewed - Physical Exam General: Confused Respiratory: Clear to auscultation bilaterally, Normal air movement Cardiovascular: Regular rate/rhythm, Normal S1 S2 Gastrointestinal: Normal bowel sounds, Soft and benign, Non-distended Musculoskeletal: No clubbing Neurological: Normal strength at 5/5 x4 extr, Sensation intact, Cranial nerves 3-12 intact Assessment & Plan - Problems (Diagnosis) (1) ESRD (end stage renal disease); new onset Current Visit: Yes Status: Acute (2) Altered mental status Current Visit: Yes Status: Acute (3) Viral Encephalitis Current Visit: Yes Status: Acute (4) Uremia encephalopathy Current Visit: Yes Status: Acute - Plan Plan: Continue with plan of care as mentioned below 1. Continue hemodialysis per Nephrology-arrange for outpatient hemodialysis 2. Urine output has been adequate; no renal biopsy at this time. Also recommending continued IV hydration 3. Continue antiviral therapy per Infectious Disease recommendations. continue for total 2-4 weeks 4. Monitor renal function closely as well as strict input and output 5. Neurochecks; plan to Dc restraints 6. Started Seroquel and will continue twice daily 7. GI and DVT prophylaxis
--- NOTE | 2020-09-23 05:24 | P.PN ---
Date of Service: 09/22/20 Subjective Patient continues to improve with no new complaints. Review of Systems is unable to be obtained Physical Examination - Vital Signs Reviewed - Physical Exam General: More awake and alert. Following some commands. Restraints Dc during the daytime. Respiratory: Clear to auscultation bilaterally, Normal air movement Cardiovascular: Regular rate/rhythm, Normal S1 S2 Gastrointestinal: Normal bowel sounds, Soft and benign, Non-distended Musculoskeletal: No clubbing Neurological: Normal strength at 5/5 x4 extr, Sensation intact, Cranial nerves 3-12 intact Assessment & Plan - Problems (Diagnosis) (1) ESRD (end stage renal disease); new onset Current Visit: Yes Status: Acute (2) Altered mental status Current Visit: Yes Status: Acute (3) Viral Encephalitis Current Visit: Yes Status: Acute (4) Uremia encephalopathy Current Visit: Yes Status: Acute - Plan Plan: Continue with plan of care as mentioned below 1. Continue hemodialysis per Nephrology-arrange for outpatient hemodialysis 2. Continue IV hydration and monitor urine output closely 3. Continue acyclovir for 2-4 weeks 4. Monitor renal function closely as well as strict input and output 5. Neurochecks; plan to Dc restraints; start physical therapy 6. Started Seroquel and will continue twice daily 7. GI and DVT prophylaxis
[2020-09-23] MEDS: INSULIN -REGULAR HUMAN 50 UNIT/0.5 ML ML SQ SCH ×4 (05:26→23:22)
[2020-09-23] MEDS ORDERED: INSULIN -REGULAR HUMAN 50 UNIT/0.5 ML ML ONE ×4 (05:41→23:35)
[2020-09-23] MEDS ORDERED: predniSONE 10 MG TAB ONE ×2 (07:35→20:14)
[2020-09-23] MEDS ORDERED: TAMSULOSIN 0.4 MG SR CAP ONE (07:35)
[2020-09-23] MEDS ORDERED: PANTOPRAZOLE 40MG TABLET PO ONE ×2 (07:37→20:13)
[2020-09-23] MEDS ORDERED: FOLIC ACID 1 MG TABLET ONE (07:37)
[2020-09-23] MEDS ORDERED: CEFEPIME/SWI 1gm 10 ML ONE (07:37)
[2020-09-23] MEDS ORDERED: POTASSIUM CL 40 MEQ in NA CHLORIDE 0.9% 500 ML IV SCH (08:00)
[2020-09-23] MEDS: CEFEPIME/SWI 1gm 10 ML IVP SCH (08:01)
[2020-09-23] MEDS: FOLIC ACID 1 MG TABLET PO SCH (08:02)
[2020-09-23] MEDS: PANTOPRAZOLE 40MG TABLET PO SCH ×2 (08:02→20:16)
[2020-09-23] MEDS: TAMSULOSIN 0.4 MG SR CAP PO SCH (08:02)
[2020-09-23] MEDS: CALCIUM CARBONATE 500 MG TAB PO SCH ×3 (08:02→20:16)
[2020-09-23] MEDS: predniSONE 10 MG TAB PO SCH ×2 (08:02→20:15)
[2020-09-23] MEDS: TOPIRAMATE 25 MG TAB PO SCH (08:02)
[2020-09-23] MEDS: QUETIAPINE 25 MG TAB PO SCH ×2 (08:02→20:17)
[2020-09-23] MEDS: NEPRO SHAKE 237 ML CAN PO SCH ×2 (08:03→20:16)
[2020-09-23] MEDS: LACTULOSE 20 GM/30 ML UCUP PO SCH ×3 (08:03→20:14)
[2020-09-23 08:38] LABS: Blood Morphology Comment NOT SEEN (NOT SEEN); Platelet Estimate DECR
[2020-09-23] MEDS: D5W 1,000 ML IV SCH (12:18)
[2020-09-23] MEDS ORDERED: D5W 1,000 ML IV ONE (12:36)
[2020-09-23] MEDS: ACYCLOVIR INJ 400 MG in NA CHLORIDE 0.9% 100 ML IVPB SCH (17:35)
--- NOTE | 2020-09-23 18:13 | P.PN ---
Subjective Date of Service: 09/23/20 Primary Care Provider: unknown Chief Complaint: Weakness Subjective: Improving Physical Examination - Vital Signs Temperature: 97.4 F Blood Pressure: 132/78 Pulse: 82 Respirations: 16 Pulse Ox (%): 100 Assessment & Plan Discharge Plan: Home Plan to discharge in: Greater than 2 days Physician Review Additional Text: Physical exam: Patient more alert. Cooperative. Restraints no longer in place. Heart: Regular rate and rhythm Lungs: Patient appears stable. No significant distress noted Abdomen: Soft nontender nondistended Extremities: Mild edema to the lower extremities. Good range of motion. Mentation: Patient with increased agitation. Overall stable. Impression: Toxic/metabolic encephalopathy etiology unknown Fall with rhabdomyolysis Acute renal failure with metabolic acidosis and hyperkalemia with likely underlying chronic renal disease stage V, currently oliguric with ATN suspect related to prolonged prerenal and NSAID use Acute respiratory distress likely from volume overload Diabetes mellitus type 2 Elevated ammonia level with history of alcohol use with underlying fatty liver disease and hepatitis C Anemia likely of chronic disease BPH Migraine headaches History of alcohol/tobacco abuse COPD exacerbation Plan: Toxic/metabolic encephalopathy etiology unknown: Patient a longer in restraints. Continue antiviral treatment. Physical therapy assess ambulation. Need to consider skilled placement versus rehab for the patient. Acute renal failure with metabolic acidosis and hyperkalemia with likely underlying chronic renal disease stage V, currently oliguric with ATN suspect related to prolonged prerenal and NSAID use: Continue with nephrology recommendations. Fall with rhabdomyolysis: Overall improved. Will monitor closely. Patient still with agitation and encephalopathy. Continues above Diabetes mellitus type 2: Home medicationMetformin has been discontinued. A1c 6.9. Continue Accu-Cheks. Sliding scale in place. Solu-Medrol will be changed to prednisone for COPD. Elevated ammonia level with history of alcohol use with underlying fatty liver disease and hepatitis C: Hepatitis C positive. Fatty liver noted on CT scan. History of alcohol abuse. Await B1 level. Patient on thiamine. Continue with nephrology recommendation. Anemia of chronic disease: We will monitor this closely. Maintain hemoglobin above 7.0. History of alcohol/tobacco abuse: We will address once the patient is more alert. reported history of drug abuse in the past. Migraine headaches: Continue Topamax. Will provide medication for pain. BPH: Continue Flomax. COPD exacerbation: Continue COPD medication. Time Spent Managing Pts Care (In Minutes): 55
[2020-09-23] MEDS: HYDROCODONE/APAP 10/325 TAB PO PRN (19:58)
[2020-09-23] MEDS ORDERED: HYDROCODONE/APAP 10/325 TAB ONE (20:13)
[2020-09-23] MEDS ORDERED: LACTULOSE 20 GM/30 ML UCUP ONE (20:30)
[2020-09-23] MEDS: TRAMADOL HCL 50 MG TAB PO PRN (23:21)
[2020-09-23] MEDS ORDERED: TRAMADOL 37.5mg/APAP 325mg PER TAB ONE (23:34)
[2020-09-23] MEDS ORDERED: TRAMADOL HCL 50 MG TAB ONE (23:38)
[2020-09-24] MEDS: D5W 1,000 ML IV SCH (02:35)
--- NOTE | 2020-09-24 03:03 | PN ---
Date of Progress Note: 09/23/2020 Chief Complaint: Severe acute kidney injury with uremia symptomatology. Subjective: The patient presented to the hospital with altered mental status, generalized weakness. Labs revealed severe metabolic acidosis and life threatening hyperkalemia. Patient was treated for metabolic acidosis with bicarbonate drip and subsequently emergent dialysis was offered to the patient, although required IV bicarbonate drip after the dialysis. Patient apparently was taking metformin, which was an contributory factor for metabolic acidosis with lactic acidosis. Patient is feeling better. Renal function has improved over the last several day. Review of Systems: Denies PND or orthopnea. Objective: Lungs: Diminished breath sounds at bases. Heart: S1, S2. Abdomen: Soft, benign. Extremities: Slight edema. Impression: 1. Acute kidney injury in recovery phase. 2. Hypertension. Continue blood pressure medication. 3. Diabetes mellitus. Continue insulin. 4. Encephalopathy, per primary team. SHA/RUBEN Voice ID: [id number] Report ID: [id number] JULIETTE
[2020-09-24 04:27] LABS: Hematocrit 23.3 % (39.6-49.0); RBC Red Blood Cell Count 2.53 M/uL (4.33-5.43)
[2020-09-24 04:37] LABS: Potassium 3.7 mmol/L (3.5-5.1)
[2020-09-24] MEDS: INSULIN -REGULAR HUMAN 50 UNIT/0.5 ML ML SQ SCH ×3 (05:08→17:36)
[2020-09-24] MEDS ORDERED: INSULIN -REGULAR HUMAN 50 UNIT/0.5 ML ML ONE (05:26)
[2020-09-24 05:33] LABS: Magnesium 1.6 mg/dL (1.8-2.4)
[2020-09-24] MEDS ORDERED: KCL 20 MEQ/100 mL IVPB 20 MEQ/100 ML BAG IV SCH (07:00)
[2020-09-24] MEDS: TOPIRAMATE 25 MG TAB PO SCH (08:05)
[2020-09-24] MEDS: FOLIC ACID 1 MG TABLET PO SCH (08:05)
[2020-09-24] MEDS: CALCIUM CARBONATE 500 MG TAB PO SCH ×3 (08:05→20:34)
[2020-09-24] MEDS: QUETIAPINE 25 MG TAB PO SCH ×2 (08:06→20:34)
[2020-09-24] MEDS: predniSONE 10 MG TAB PO SCH ×2 (08:06→20:33)
[2020-09-24] MEDS: CEFEPIME/SWI 1gm 10 ML IVP SCH (08:08)
[2020-09-24] MEDS: NEPRO SHAKE 237 ML CAN PO SCH ×2 (08:08→20:34)
[2020-09-24] MEDS: PANTOPRAZOLE 40MG TABLET PO SCH ×2 (08:08→20:33)
[2020-09-24] MEDS: LACTULOSE 20 GM/30 ML UCUP PO SCH ×3 (08:10→20:33)
[2020-09-24] MEDS: TAMSULOSIN 0.4 MG SR CAP PO SCH (08:16)
[2020-09-24] MEDS ORDERED: MAGNESIUM SULFATE 1 gm IVPB 1 GM/100 ML BAG IV ONE ×2 (09:00→21:00)
--- NOTE | 2020-09-24 09:01 | PN ---
Subjective: The patient is lying in bed. at the bedside. No new acute event. Chart reviewed. Objective: Vital Signs: Temperature 97, pulse 80, respiration 15, blood pressure 130/80. Lungs: Basal crackles. Heart: S1, S2. Regular. Abdomen: Soft, nontender. Bowel sounds present. Extremities: No edema. Laboratory Data: Shows WBC of 8.3, hemoglobin 7.7, platelets 104. Chemistry shows sodium 139, potas sium 3.3, chloride 110, bicarb 22, BUN 46, creatinine 2.99, glucose is 207. Assessment And Plan: Toxic metabolic encephalopathy, rhabdomyolysis, acute renal failure with metabo lic acidosis and hyperkalemia, diabetes mellitus, anemia, migraine headaches, history of alcohol and tobacco use, chronic obstructive pulmonary disease. Continue current treatment. We will follow the patient closely. NF/MODL Voice ID: [id number] Report ID: [id number]
--- NOTE | 2020-09-24 10:46 | P.PN ---
Subjective Date of Service: 09/24/20 Primary Care Provider: unknown Chief Complaint: Weakness Patient seen examined at bedside, no acute changes. States he is feeling well, denies pain. Review of Systems 10-point ROS is otherwise unremarkable Physical Examination - Vital Signs Temperature: 97.4 F Blood Pressure: 130/75 Pulse: 79 Respirations: 18 Pulse Ox (%): 98 - Studies Active Medications Hydrocodone Bitart/Acetaminophen (Hydrocodone/Apap 10/325 Tab) 1 tab PO QID PRN PRN Reason: Pain scale 8-10 (Severe) Last Admin: 09/23/20 19:58 Dose: 1 tab Documented by: Calcium Carbonate/Glycine (Calcium Carbonate 500 Mg Tab) 1,000 mg PO TID TAMEKA Last Admin: 09/24/20 08:05 Dose: 1,000 mg Documented by: Dextrose (D50w 25 Gm/50 Ml Vial) 12.5 gm IV PRN PRN; Protocol PRN Reason: HYPOGLYCEMIA Enteral Nutritional Formula (Nepro Shake 237 Ml Can) 237 ml PO BID [facility] Last Admin: 09/24/20 08:08 Dose: 237 ml Documented by: Folic Acid (Folic Acid 1 Mg Tablet) 1 mg PO DAILY TAMEKA Last Admin: 09/24/20 08:05 Dose: 1 mg Documented by: Glucagon (Glucagon 1 Mg/Vial) 1 mg IM 1X PRN; Protocol PRN Reason: HYPOGLYCEMIA Heparin Sodium (Porcine) (Heparin 1,000 Unit/Ml Vial) 6,000 unit IV EVERY HD PRN PRN Reason: AFTER EACH Last Admin: 09/16/20 23:10 Dose: 6,000 unit Documented by: Hydralazine HCl (Hydralazine Hcl 20 Mg/Ml Vial) 10 mg IV TID PRN PRN Reason: Titrate to SBP (MUST DEFINE) Last Admin: 09/22/20 13:27 Dose: 10 mg Documented by: Vancomycin HCl (Vancomycin 1 Gm/250 Ml Ns Ivpb) 1 gm in 250 mls @ 166.667 mls/hr IVPB EVERY HD TAMEKA Cefepime HCl (Maxipime 1 Gm/10 Ml Ivp) 10 mls @ 200 mls/hr IVP DAILY [facility] Last Admin: 09/24/20 08:08 Dose: 10 mls Documented by: Acyclovir Sodium 400 mg/ (Sodium Chloride) 108 mls @ 100 mls/hr IVPB DAILY 6PM TAMEKA Stop: 09/26/20 19:05 Last Admin: 09/23/20 17:35 Dose: 108 mls Documented by: Dextrose/Water (Dextrose In Water (1-Liter)) 1,000 mls @ 75 mls/hr IV .[id number] [facility] Last Admin: 09/24/20 02:35 Dose: 1,000 mls Documented by: Insulin Human Regular (Insulin -Regular Human 50 Unit/0.5 Ml Ml) 0 unit SQ Q6HR [facility]; Protocol Last Admin: 09/24/20 05:08 Dose: 5 unit Documented by: Ipratropium [place] (Ipratropium Brom 0.5mg/2.5ml) 0.5 mg NEB [id number] PRN PRN Reason: SHORTNESS OF BREATH Last Admin: 09/20/20 19:45 Dose: 0.5 mg Documented by: Lactulose (Lactulose 20 Gm/30 Ml Ucup) 10 gm PO TID [facility] Last Admin: 09/24/20 08:10 Dose: Not Given Documented by: Lorazepam (Lorazepam 0.5 Mg Tablet) 0.5 mg PO Q8H PRN PRN Reason: ANXIETY Last Admin: 09/22/20 08:20 Dose: 0.5 mg Documented by: Ondansetron HCl (Ondansetron 4 Mg/2 Ml Vial) 4 mg IV Q8H PRN PRN Reason: NAUSEA / VOMITING Last Admin: 09/13/20 01:37 Dose: 4 mg Documented by: Pantoprazole Sodium (Pantoprazole 40mg Tablet) 40 mg PO BID [facility]; Protocol Last Admin: 09/24/20 08:08 Dose: 40 mg Documented by: Prednisone (Prednisone 10 Mg Tab) 10 mg PO BID [facility] Last Admin: 09/24/20 08:06 Dose: 10 mg Documented by: Quetiapine Fumarate (Quetiapine 25 Mg Tab) 50 mg PO BID [facility] Last Admin: 09/24/20 08:06 Dose: 50 mg Documented by: Sodium Chloride (Flush Normal Saline 10 Ml) 10 ml IV BID [facility] Last Admin: 09/24/20 08:08 Dose: 10 ml Documented by: Tamsulosin HCl (Tamsulosin 0.4 Mg Sr Cap) 0.4 mg PO DAILY [facility] Last Admin: 09/24/20 08:16 Dose: 0.4 mg Documented by: Topiramate (Topiramate 25 Mg Tab) 50 mg PO DAILY [facility] Last Admin: 09/24/20 08:05 Dose: 50 mg Documented by: Tramadol HCl (Tramadol Hcl 50 Mg Tab) 50 mg PO TID PRN PRN Reason: Pain scale 5-7 (Moderate) Last Admin: 09/23/20 23:21 Dose: 50 mg Documented by: Laboratory Last Values WBC 13.00 K/uL (4.3-10.9) H 09/08/20 15:35 RBC 3.89 M/uL (4.33-5.43) L 09/08/20 15:35 Hgb 11.7 g/dL (13.6-17.9) L 09/08/20 15:35 Hct 37.7 % (39.6-49.0) L 09/08/20 15:35 MCV 96.8 fL (80-100) D 09/08/20 15:35 MCH 30.1 pg (27.0-35.0) 09/08/20 15:35 MCHC 31.1 g/dL (32.0-36.0) L 09/08/20 15:35 RDW 15.1 % (12.1-15.2) 09/08/20 15:35 Plt Count 207 K/uL (152-406) 09/08/20 15:35 MPV 9.9 fL (7.6-11.3) 09/08/20 15:35 Neutrophils % 81.2 % (41.7-73.7) H 09/08/20 15:35 Lymphocytes % 2.1 % (15.3-44.8) L 09/08/20 15:35 Monocytes % 16.6 % (3.3-12.3) H 09/08/20 15:35 Eosinophils % 0.0 % (0-4.4) 09/08/20 15:35 Basophils % 0.1 % (0-1.3) 09/08/20 15:35 Absolute Neutrophils 10.6 K/uL (1.8-8.0) H 09/08/20 15:35 Absolute Lymphocytes 0.3 K/uL (0.7-4.9) L 09/08/20 15:35 Absolute Monocytes 2.2 K/uL (0.1-1.3) H 09/08/20 15:35 Absolute Eosinophils 0.0 K/uL (0-0.5) 09/08/20 15:35 Absolute Basophils 0.0 K/uL (0-0.5) 09/08/20 15:35 Platelet Estimate Adeq 09/08/20 15:35 Morphology Comment Not seen (NOT SEEN) 09/08/20 15:35 PT 10.7 SECONDS (9.5-12.5) 09/08/20 15:35 INR 0.93 09/08/20 15:35 APTT 26.0 SECONDS (24.3-36.9) 09/08/20 15:35 Sodium 132 mmol/L (136-145) L 09/08/20 15:35 Potassium 7.4 mmol/L (3.5-5.1) H* 09/08/20 15:35 Chloride 92 mmol/L (98-107) L 09/08/20 15:35 Carbon Dioxide 7 mmol/L (21-32) L* 09/08/20 15:35 BUN 104 mg/dL (7-18) H 09/08/20 15:35 Creatinine 10.40 mg/dL (0.55-1.3) H* 09/08/20 15:35 Whole Bld Creatinine 12.0 mg/dL (0.6-1.3) H* 09/08/20 14:38 Estimated GFR 5 mL/min (=/>90) L 09/08/20 15:35 Glucose 171 mg/dL (74-106) H 09/08/20 15:35 Lactic Acid 7.2 mmol/L (0.4-2.0) H* 09/08/20 15:35 Calcium 6.8 mg/dL (8.5-10.1) L* 09/08/20 15:35 Total Bilirubin 0.8 mg/dL (0.2-1.0) 09/08/20 15:35 Direct Bilirubin 0.4 mg/dL (0-0.2) H 09/08/20 15:35 AST 27 U/L (15-37) 09/08/20 15:35 ALT 32 U/L (12-78) 09/08/20 15:35 Alkaline Phosphatase 98 U/L (45-117) 09/08/20 15:35 Ammonia 103 umol/L (19-54) H 09/08/20 15:35 Creatine Kinase 1869 U/L (39-308) H* 09/08/20 15:35 Rapid Troponin I < 0.02 ng/mL (0.0-0.045) 09/08/20 15:35 NT-Pro-B Natriuret Pep 8201 pg/mL (<125) H 09/08/20 15:35 Serum Total Protein 7.7 g/dL (6.4-8.2) 09/08/20 15:35 Albumin 3.6 g/dL (3.4-5.0) 09/08/20 15:35 Globulin 4.1 g/dL (2.3-3.5) H 09/08/20 15:35 Albumin/Globulin Ratio 0.9 (1.1-1.8) L 09/08/20 15:35 Lipase 307 U/L (73-393) 09/08/20 15:35 Procalcitonin 2.14 ng/mL (<0.050) H 09/08/20 15:35 Urine pH 6.0 (5.0-7.0) 09/08/20 17:08 Ur Specific Horace 1.030 (1.005-1.030) 09/08/20 17:08 Glucose (UA)(Auto) Negative (Negative) 09/08/20 17:08 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 HIDE HANDLER 09/08/20 17:08 Urine Blood 2+ (Negative) H 09/08/20 17:08 Urine Nitrite Negative (NEG) 09/08/20 17:08 Ur Leukocyte Esterase Negative (NEG) 09/08/20 17:08 Urine RBC 5-10 /HPF (NONE SEEN) H 09/08/20 17:02 Urine WBC 5-10 /HPF (<5) H 09/08/20 17:02 Ur Squamous Epith Cells <5 /HPF (NONE SEEN) 09/08/20 17:02 Amorphous Sediment 2+ /HPF (NONE SEEN) H 09/08/20 17:02 Urine Bacteria 20-50 /HPF (NONE SEEN) H 09/08/20 17:02 Urine Sperm Present (NONE SEEN) H 09/08/20 17:02 Urine Culture Reflexed Reflexed 09/08/20 17:02 Urine Total Protein Negative (NEG) 09/08/20 17:08 Opiates Screen Positive (NEGATIVE) H 09/08/20 17:02 Methadone Screen Negative (NEGATIVE) 09/08/20 17:02 Ur Barbiturates Screen Negative (NEGATIVE) 09/08/20 17:02 Ur Phencyclidine Scrn Negative (NEGATIVE) 09/08/20 17:02 Amphetamines Screen Negative (NEGATIVE) 09/08/20 17:02 Benzodiazepines Screen Negative (NEGATIVE) 09/08/20 17:02 Cocaine Screen Negative (NEGATIVE) 09/08/20 17:02 Ur THC Screen Negative (NEGATIVE) 09/08/20 17:02 Plasma/Serum Alcohol < 10 mg/dL (<10) 09/08/20 15:35 SARS-CoV-2 RNA (RT-PCR) Negative (NEGATIVE) 09/08/20 16:18 Smear Scan Ok (OK) 09/08/20 15:35 ABO/Rh O POSITIVE 09/08/20 15:35 Solid Phase Ab Screen Negative 09/08/20 15:35 Assessment And Plan - Plan Physical Exam: General: Awake and alert. HEENT: Atraumatic, Normocephalic Neck: Supple, 2+ carotid pulse no bruit Respiratory: Clear to auscultation bilaterally, Normal air movement Cardiovascular: No edema, Normal pulses, Regular rate/rhythm Capillary refill: <2 Seconds Antibiotics Vancomycin Start: 09/13 Stop:-- Cefepime start: 09/15 stop: -- Assessment: -viral encephalopathy -leukocytosis -JULIUS with metabolic acidosis -fall with rhabdomyolysis -anemia of chronic disease -COPD exacerbation -diabetes type 2 -history of alcohol/tobacco use Plan: -viral encephalopathy: Continue acyclovir for 2-4 weeks. - Blood cultures negative urine cultures negative. Repeat procalcitonin ordered assess need for antibiotics based on those results. -medical management per primary team -continue monitor CBC and BMP -continue monitor signs infection Plan of care discussed with Dr. Schmidt Thank you for consultation.
[2020-09-24] MEDS: TRAMADOL HCL 50 MG TAB PO PRN (14:21)
--- NOTE | 2020-09-24 16:11 | P.PN ---
Subjective Date of Service: 09/24/20 Primary Care Provider: unknown Chief Complaint: Weakness Subjective: Improving Physical Examination - Vital Signs Temperature: 97.9 F Blood Pressure: 111/68 Pulse: 83 Respirations: 18 Pulse Ox (%): 98 Assessment & Plan Discharge Plan: Home (Home versus skilled placement) Plan to discharge in: 48 Hours Physician Review Additional Text: Physical exam: Patient more alert. Cooperative. Restraints no longer in place. Heart: Regular rate and rhythm Lungs: Patient appears stable. No significant distress noted Abdomen: Soft nontender nondistended Extremities: Mild edema to the lower extremities. Good range of motion. Mentation: Patient with increased agitation. Overall stable. Impression: Toxic/metabolic encephalopathy etiology unknown Fall with rhabdomyolysis Acute renal failure with metabolic acidosis and hyperkalemia with likely underlying chronic renal disease stage V, currently oliguric with ATN suspect related to prolonged prerenal and NSAID use Acute respiratory distress likely from volume overload Diabetes mellitus type 2 Elevated ammonia level with history of alcohol use with underlying fatty liver disease and hepatitis C Anemia likely of chronic disease BPH Migraine headaches History of alcohol/tobacco abuse COPD exacerbation Plan: Toxic/metabolic encephalopathy etiology unknown: Patient no longer in restraints. Doing well and cooperating. Will have PT evaluate for possible SNF. Will discuss with about the possibility of skilled placement or home at discharge. Spoke with nephrology. Patient renal function stable and improved. Possible no need for outpatient dialysis. Will monitor closely. Continue antiviral medication. Will discuss with social work and family about plan of care. Acute renal failure with metabolic acidosis and hyperkalemia with likely underlying chronic renal disease stage V, currently oliguric with ATN suspect related to prolonged prerenal and NSAID use: Spoke with nephrology. Likely no need for dialysis as an outpatient. We will continue to monitor closely. Fall with rhabdomyolysis: Overall improved. Will monitor closely. Patient still with agitation and encephalopathy. Continues above Diabetes mellitus type 2: Home medicationMetformin has been discontinued. A1c 6.9. Continue Accu-Cheks. Sliding scale in place. Medications adjusted. Elevated ammonia level with history of alcohol use with underlying fatty liver disease and hepatitis C: Hepatitis C positive. Fatty liver noted on CT scan. History of alcohol abuse. Await B1 level. Patient on thiamine. Continue with nephrology recommendation. Anemia of chronic disease: We will monitor this closely. Maintain hemoglobin above 7.0. History of alcohol/tobacco abuse: We will address once the patient is more alert. reported history of drug abuse in the past. Migraine headaches: Continue Topamax. Will provide medication for pain. BPH: Continue Flomax. COPD exacerbation: Continue COPD medication. Time Spent Managing Pts Care (In Minutes): 55
[2020-09-24] MEDS: ACYCLOVIR INJ 400 MG in NA CHLORIDE 0.9% 100 ML IVPB SCH (17:36)
[2020-09-24] MEDS: HYDROCODONE/APAP 10/325 TAB PO PRN ×2 (17:42→23:22)
--- NOTE | 2020-09-24 18:48 | PN ---
Date of Progress Note: 09/24/2020 Subjective: The patient continue to show renal recovery; had acute kidney injury secondary to prerenal, required dialysis, last dialysis was on the . Physical Examination: Vital Signs: Blood pressure 111/68, pulse of 83, afebrile. The patient had good urine output of 2700. Chest: Clear to auscultation. Heart: S1, S2 regular. Abdomen: Soft, nontender. Extremities: No edema. Neurologic: Alert, pleasantly confused. No focality. Laboratory Data: WBC 6.5, H and H 7.7/23.3, platelet 89. Sodium 142, potassium 3.7 bicarb 23, BUN 40, creatinine down to 2.6 with GFR of 25, calcium 7.1, magnesium 1.6. TSH 0.03. PTH 197. Current Medications: The patient on include acyclovir, cefepime, vancomycin, Flomax, calcium, Nepro, folic acid, Zofran, pantoprazole, prednisone 10 b.i.d., D5 at 75. Assessment And Plan: 1. Acute kidney injury secondary to prerenal status post dialysis. Last dialysis was on September 18, . I am going to go ahead and keep holding dialysis. If kidney function continued to improve, I do not see the patient is going to need dialysis. 2. Hypertension, controlled, optimal. Continue current treatment. 3. Diabetes as by primary. 4. Rhabdomyolysis, recovered, resolved. I am going to go ahead and discontinue IV fluid. time spend exam the patient face to face , discussing with patient , reviewing la and radiology date, placing order , discussing the case with staff and with other team consultan and hospitalist 45 min. SUNIL Voice ID: [id number] Report ID: [id number] JULIETTE
[2020-09-25] MEDS: TRAMADOL HCL 50 MG TAB PO PRN ×2 (02:10→08:23)
[2020-09-25 06:55] LABS: Magnesium 1.7 mg/dL (1.8-2.4); Potassium 4.1 mmol/L (3.5-5.1)
[2020-09-25 06:59] LABS: Absolute Lymphocytes (CBC) 0.5 K/uL (0.7-4.9); Basophils % 0.4 % (0-1.3); Lymphocytes % 7.4 % (15.3-44.8); MPV 10.6 fL (7.6-11.3); RBC Red Blood Cell Count 2.59 M/uL (4.33-5.43)
[2020-09-25] MEDS ORDERED: MAGNESIUM SULFATE 1 gm IVPB 1 GM/100 ML BAG IV ONE ×2 (08:00→10:42)
[2020-09-25] MEDS: FOLIC ACID 1 MG TABLET PO SCH (08:24)
[2020-09-25] MEDS: TAMSULOSIN 0.4 MG SR CAP PO SCH (08:24)
[2020-09-25] MEDS: QUETIAPINE 25 MG TAB PO SCH ×2 (08:24→21:36)
[2020-09-25] MEDS: TOPIRAMATE 25 MG TAB PO SCH (08:24)
[2020-09-25] MEDS: PANTOPRAZOLE 40MG TABLET PO SCH ×2 (08:25→21:35)
[2020-09-25] MEDS: predniSONE 10 MG TAB PO SCH (08:25)
[2020-09-25] MEDS: CEFEPIME/SWI 1gm 10 ML IVP SCH (08:25)
[2020-09-25] MEDS: NEPRO SHAKE 237 ML CAN PO SCH ×2 (08:25→21:00)
[2020-09-25] MEDS: LACTULOSE 20 GM/30 ML UCUP PO SCH ×3 (08:26→21:36)
[2020-09-25] MEDS: INSULIN -REGULAR HUMAN 50 UNIT/0.5 ML ML SQ SCH ×4 (08:26→21:00)
[2020-09-25] MEDS: CALCIUM CARBONATE 500 MG TAB PO SCH ×3 (08:29→21:39)
[2020-09-25] MEDS: HYDROCODONE/APAP 10/325 TAB PO PRN ×2 (10:14→21:34)
--- NOTE | 2020-09-25 11:17 | P.PN ---
Subjective Date of Service: 09/25/20 Primary Care Provider: unknown Chief Complaint: Weakness Patient seen examined at bedside, no acute changes. Antibiotics discontinued. Procalcitonin unremarkable. Hemoglobin 7.8 continue monitor closely. Recommend transfusion if hemoglobin drops below 7.0. Review of Systems 10-point ROS is otherwise unremarkable Physical Examination - Vital Signs Temperature: 97.5 F Blood Pressure: 115/73 Pulse: 78 Respirations: 16 Pulse Ox (%): 98 - Physical Exam General: Alert - Studies Laboratory Last Values WBC 13.00 K/uL (4.3-10.9) H 09/08/20 15:35 RBC 3.89 M/uL (4.33-5.43) L 09/08/20 15:35 Hgb 11.7 g/dL (13.6-17.9) L 09/08/20 15:35 Hct 37.7 % (39.6-49.0) L 09/08/20 15:35 MCV 96.8 fL (80-100) D 09/08/20 15:35 MCH 30.1 pg (27.0-35.0) 09/08/20 15:35 MCHC 31.1 g/dL (32.0-36.0) L 09/08/20 15:35 RDW 15.1 % (12.1-15.2) 09/08/20 15:35 Plt Count 207 K/uL (152-406) 09/08/20 15:35 MPV 9.9 fL (7.6-11.3) 09/08/20 15:35 Neutrophils % 81.2 % (41.7-73.7) H 09/08/20 15:35 Lymphocytes % 2.1 % (15.3-44.8) L 09/08/20 15:35 Monocytes % 16.6 % (3.3-12.3) H 09/08/20 15:35 Eosinophils % 0.0 % (0-4.4) 09/08/20 15:35 Basophils % 0.1 % (0-1.3) 09/08/20 15:35 Absolute Neutrophils 10.6 K/uL (1.8-8.0) H 09/08/20 15:35 Absolute Lymphocytes 0.3 K/uL (0.7-4.9) L 09/08/20 15:35 Absolute Monocytes 2.2 K/uL (0.1-1.3) H 09/08/20 15:35 Absolute Eosinophils 0.0 K/uL (0-0.5) 09/08/20 15:35 Absolute Basophils 0.0 K/uL (0-0.5) 09/08/20 15:35 Platelet Estimate Adeq 09/08/20 15:35 Morphology Comment Not seen (NOT SEEN) 09/08/20 15:35 PT 10.7 SECONDS (9.5-12.5) 09/08/20 15:35 INR 0.93 09/08/20 15:35 APTT 26.0 SECONDS (24.3-36.9) 09/08/20 15:35 Sodium 132 mmol/L (136-145) L 09/08/20 15:35 Potassium 7.4 mmol/L (3.5-5.1) H* 09/08/20 15:35 Chloride 92 mmol/L (98-107) L 09/08/20 15:35 Carbon Dioxide 7 mmol/L (21-32) L* 09/08/20 15:35 BUN 104 mg/dL (7-18) H 09/08/20 15:35 Creatinine 10.40 mg/dL (0.55-1.3) H* 09/08/20 15:35 Whole Bld Creatinine 12.0 mg/dL (0.6-1.3) H* 09/08/20 14:38 Estimated GFR 5 mL/min (=/>90) L 09/08/20 15:35 Glucose 171 mg/dL (74-106) H 09/08/20 15:35 Lactic Acid 7.2 mmol/L (0.4-2.0) H* 09/08/20 15:35 Calcium 6.8 mg/dL (8.5-10.1) L* 09/08/20 15:35 Total Bilirubin 0.8 mg/dL (0.2-1.0) 09/08/20 15:35 Direct Bilirubin 0.4 mg/dL (0-0.2) H 09/08/20 15:35 AST 27 U/L (15-37) 09/08/20 15:35 ALT 32 U/L (12-78) 09/08/20 15:35 Alkaline Phosphatase 98 U/L (45-117) 09/08/20 15:35 Ammonia 103 umol/L (19-54) H 09/08/20 15:35 Creatine Kinase 1869 U/L (39-308) H* 09/08/20 15:35 Rapid Troponin I < 0.02 ng/mL (0.0-0.045) 09/08/20 15:35 NT-Pro-B Natriuret Pep 8201 pg/mL (<125) H 09/08/20 15:35 Serum Total Protein 7.7 g/dL (6.4-8.2) 09/08/20 15:35 Albumin 3.6 g/dL (3.4-5.0) 09/08/20 15:35 Globulin 4.1 g/dL (2.3-3.5) H 09/08/20 15:35 Albumin/Globulin Ratio 0.9 (1.1-1.8) L 09/08/20 15:35 Lipase 307 U/L (73-393) 09/08/20 15:35 Procalcitonin 2.14 ng/mL (<0.050) H 09/08/20 15:35 Urine pH 6.0 (5.0-7.0) 09/08/20 17:08 Ur Specific [place] 1.030 (1.005-1.030) 09/08/20 17:08 Glucose (UA)(Auto) Negative (Negative) 09/08/20 17:08 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 [employer] 09/08/20 17:08 Urine Blood 2+ (Negative) H 09/08/20 17:08 Urine Nitrite Negative (NEG) 09/08/20 17:08 Ur Leukocyte Esterase Negative (NEG) 09/08/20 17:08 Urine RBC 5-10 /HPF (NONE SEEN) H 09/08/20 17:02 Urine WBC 5-10 /HPF (<5) H 09/08/20 17:02 Ur Squamous Epith Cells <5 /HPF (NONE SEEN) 09/08/20 17:02 Amorphous Sediment 2+ /HPF (NONE SEEN) H 09/08/20 17:02 Urine Bacteria 20-50 /HPF (NONE SEEN) H 09/08/20 17:02 Urine Sperm Present (NONE SEEN) H 09/08/20 17:02 Urine Culture Reflexed Reflexed 09/08/20 17:02 Urine Total Protein Negative (NEG) 09/08/20 17:08 Opiates Screen Positive (NEGATIVE) H 09/08/20 17:02 Methadone Screen Negative (NEGATIVE) 09/08/20 17:02 Ur Barbiturates Screen Negative (NEGATIVE) 09/08/20 17:02 Ur Phencyclidine Scrn Negative (NEGATIVE) 09/08/20 17:02 Amphetamines Screen Negative (NEGATIVE) 09/08/20 17:02 Benzodiazepines Screen Negative (NEGATIVE) 09/08/20 17:02 Cocaine Screen Negative (NEGATIVE) 09/08/20 17:02 Ur THC Screen Negative (NEGATIVE) 09/08/20 17:02 Plasma/Serum Alcohol < 10 mg/dL (<10) 09/08/20 15:35 SARS-CoV-2 RNA (RT-PCR) Negative (NEGATIVE) 09/08/20 16:18 Smear Scan Ok (OK) 09/08/20 15:35 ABO/Rh O POSITIVE 09/08/20 15:35 Solid Phase Ab Screen Negative 09/08/20 15:35 Active Medications Hydrocodone Bitart/Acetaminophen (Hydrocodone/Apap 10/325 Tab) 1 tab PO QID PRN PRN Reason: Pain scale 8-10 (Severe) Last Admin: 09/25/20 10:14 Dose: 1 tab Documented by: Calcium Carbonate/Glycine (Calcium Carbonate 500 Mg Tab) 1,000 mg PO TID [facility] Last Admin: 09/25/20 08:29 Dose: 1,000 mg Documented by: Dextrose (D50w 25 Gm/50 Ml Vial) 12.5 gm IV PRN PRN; Protocol PRN Reason: HYPOGLYCEMIA Enteral Nutritional Formula (Nepro Shake 237 Ml Can) 237 ml PO BID [facility] Last Admin: 09/25/20 08:25 Dose: 237 ml Documented by: Folic Acid (Folic Acid 1 Mg Tablet) 1 mg PO DAILY [facility] Last Admin: 09/25/20 08:24 Dose: 1 mg Documented by: Glucagon (Glucagon 1 Mg/Vial) 1 mg IM 1X PRN; Protocol PRN Reason: HYPOGLYCEMIA Heparin Sodium (Porcine) (Heparin 1,000 Unit/Ml Vial) 6,000 unit IV EVERY HD PRN PRN Reason: AFTER EACH Last Admin: 09/16/20 23:10 Dose: 6,000 unit Documented by: Hydralazine HCl (Hydralazine Hcl 20 Mg/Ml Vial) 10 mg IV TID PRN PRN Reason: Titrate to SBP (MUST DEFINE) Last Admin: 09/22/20 13:27 Dose: 10 mg Documented by: Acyclovir Sodium 400 mg/ (Sodium Chloride) 108 mls @ 100 mls/hr IVPB DAILY 6PM [facility] Stop: 09/26/20 19:05 Last Admin: 09/24/20 17:36 Dose: 108 mls Documented by: Magnesium Sulfate/Dextrose (Magnesium Sulfate 1gm/D5w Ivpb (Premix)) 1 gm in 100 mls @ 100 mls/hr IV 1X ONE Stop: 09/25/20 11:41 Insulin Human Regular (Insulin -Regular Human 50 Unit/0.5 Ml Ml) 0 unit SQ ACHS [facility]; Protocol Last Admin: 09/25/20 08:26 Dose: 3 unit Documented by: Ipratropium [place] (Ipratropium Brom 0.5mg/2.5ml) 0.5 mg NEB [id number] PRN PRN Reason: SHORTNESS OF BREATH Last Admin: 09/20/20 19:45 Dose: 0.5 mg Documented by: Lactulose (Lactulose 20 Gm/30 Ml Ucup) 10 gm PO TID [facility] Last Admin: 09/25/20 08:26 Dose: Not Given Documented by: Lorazepam (Lorazepam 0.5 Mg Tablet) 0.5 mg PO Q8H PRN PRN Reason: ANXIETY Last Admin: 09/22/20 08:20 Dose: 0.5 mg Documented by: Ondansetron HCl (Ondansetron 4 Mg/2 Ml Vial) 4 mg IV Q8H PRN PRN Reason: NAUSEA / VOMITING Last Admin: 09/13/20 01:37 Dose: 4 mg Documented by: Pantoprazole Sodium (Pantoprazole 40mg Tablet) 40 mg PO BID [facility]; Protocol Last Admin: 09/25/20 08:25 Dose: 40 mg Documented by: Prednisone (Prednisone 10 Mg Tab) 10 mg PO BID [facility] Last Admin: 09/25/20 08:25 Dose: 10 mg Documented by: Quetiapine Fumarate (Quetiapine 25 Mg Tab) 50 mg PO BID [facility] Last Admin: 09/25/20 08:24 Dose: 50 mg Documented by: Sodium Chloride (Flush Normal Saline 10 Ml) 10 ml IV BID [facility] Last Admin: 09/25/20 08:26 Dose: 10 ml Documented by: Tamsulosin HCl (Tamsulosin 0.4 Mg Sr Cap) 0.4 mg PO DAILY [facility] Last Admin: 09/25/20 08:24 Dose: 0.4 mg Documented by: Topiramate (Topiramate 25 Mg Tab) 50 mg PO DAILY [facility] Last Admin: 09/25/20 08:24 Dose: 50 mg Documented by: Tramadol HCl (Tramadol Hcl 50 Mg Tab) 50 mg PO TID PRN PRN Reason: Pain scale 5-7 (Moderate) Last Admin: 09/25/20 08:23 Dose: 50 mg Documented by: Temp Pulse Resp BP Pulse Ox 97.5 F 78 16 115/73 98 09/25/20 11:17 09/25/20 11:17 09/25/20 11:17 09/25/20 11:17 09/25/20 11:17 Assessment And Plan - Plan Physical Exam: General: Awake and alert. HEENT: Atraumatic, Normocephalic Neck: Supple, 2+ carotid pulse no bruit Respiratory: Clear to auscultation bilaterally, Normal air movement Cardiovascular: No edema, Normal pulses, Regular rate/rhythm Capillary refill: <2 Seconds Antibiotics Vancomycin Start: 09/13 Stop:09/25 Cefepime start: 09/15 stop: 09/25 Assessment: -viral encephalopathy -leukocytosis -JULIUS with metabolic acidosis -fall with rhabdomyolysis -anemia of chronic disease -COPD exacerbation -diabetes type 2 -history of alcohol/tobacco use Plan: -viral encephalopathy: Continue acyclovir for 2-4 weeks. - Blood cultures negative urine cultures negative. Repeat procalcitonin: Unremarkable. Antibiotics Dc the on 09/25. -medical management per primary team -continue monitor CBC and BMP -continue monitor signs infection Plan of care discussed with Dr. Schmidt Thank you for consultation.
[2020-09-25] MEDS ORDERED: ALBUTEROL INHALER 60 PUFF/8 GM IH PRN (13:52)
--- NOTE | 2020-09-25 13:54 | P.PN ---
Subjective Date of Service: 09/25/20 Primary Care Provider: unknown Chief Complaint: Weakness Subjective: Improving, Doing well Physical Examination - Vital Signs Temperature: 97.5 F Blood Pressure: 115/73 Pulse: 78 Respirations: 16 Pulse Ox (%): 98 Assessment & Plan Discharge Plan: Other (correction facility) Plan to discharge in: 48 Hours Physician Review Additional Text: Physical exam: Patient more alert. Cooperative. Restraints no longer in place. Heart: Regular rate and rhythm Lungs: Patient appears stable. No significant distress noted Abdomen: Soft nontender nondistended Extremities: Mild edema to the lower extremities. Good range of motion. Mentation: Patient with increased agitation. Overall stable. Impression: Toxic/metabolic encephalopathy etiology unknown Fall with rhabdomyolysis Acute renal failure with metabolic acidosis and hyperkalemia with likely underlying chronic renal disease stage V, currently oliguric with ATN suspect related to prolonged prerenal and NSAID use Acute respiratory distress likely from volume overload Diabetes mellitus type 2 Elevated ammonia level with history of alcohol use with underlying fatty liver disease and hepatitis C Anemia likely of chronic disease BPH Migraine headaches History of alcohol/tobacco abuse COPD exacerbation Depression with anxiety Plan: Toxic/metabolic encephalopathy etiology unknown: Patient doing well at this time. Continue to encourage physical therapy and Occupational Therapy. Spoke at length with patient and . We will pursue skilled placement for the patient. This was discussed with social media executive. Spoke with nephrology yesterday. Likely no need for future dialysis. We will continue to monitor renal function. Case discussed with infectious disease. Continue with acyclovir for a total of 14 days. Anticipate improvement over the next 24 to 48 hours with possible discharge. Acute renal failure with metabolic acidosis and hyperkalemia with likely underlying chronic renal disease stage V, currently oliguric with ATN suspect related to prolonged prerenal and NSAID use: Spoke with nephrology. Likely no need for dialysis as an outpatient. We will continue to monitor closely. Fall with rhabdomyolysis: Overall improved. Will monitor closely. Diabetes mellitus type 2: Home medicationMetformin has been discontinued. A1c 6.9. Continue Accu-Cheks. Sliding scale in place. Will considering starting medication if still high but will see how he does off Prednisone. Elevated ammonia level with history of alcohol use with underlying fatty liver disease and hepatitis C: Hepatitis C positive. Fatty liver noted on CT scan. History of alcohol abuse. Patient on thiamine and folic acid. Continue with nephrology recommendation. Anemia of chronic disease: We will monitor this closely. Maintain hemoglobin above 7.0. History of alcohol/tobacco abuse: We will address once the patient is more alert. reported history of drug abuse in the past. Migraine headaches: Continue Topamax. Will provide medication for pain. BPH: Continue Flomax. COPD exacerbation: Continue COPD medication. Will DC Prednisone. Depression with anxiety: Continue with Seroquel for agitation Time Spent Managing Pts Care (In Minutes): 55
--- NOTE | 2020-09-25 15:58 | PN ---
Date of Progress Note: 09/25/2020 Subjective: The patient was admitted with acute kidney injury secondary to hepatorenal. The patient required dialysis, weaned from dialysis. The patient's last dialysis was on . Still has good urine output. Physical Examination: Vital Signs: Blood pressure 115/73, pulse of 78. The patient had good urine output of 2500. Chest: Clear to auscultation. Heart: S1, S2. Regular. Abdomen: Soft, nontender. Extremities: No edema. Left-sided PermCath. Neurologic: Alert. No focality. Laboratory Data: WBC 6.8, H and H 7.8/24. Sodium 143, potassium 4.1, bicarb 21, BUN 35, creatinine 2.2, calcium 7.5, magnesium 1.7. Current Medications: The patient on include acyclovir, Flomax, calcium carbonate 1000 t.i.d., hydralazine, lactulose, breathing treatment, Zofran, pantoprazole. Assessment And Plan: 1. Acute kidney injury secondary to hepatorenal, recovered, resolved. I do not see the need for any dialysis or PermCath. 2. Hypertension, controlled, optimal. 3. Hypomagnesemia. We will supplement. 4. Encephalopathy. Continue current treatment. We will follow up with Primary. time spend exam the patient face to face , discussing with patient , reviewing la and radiology date, placing order , discussing the case with staff and with other team consultan and hospitalist 45 min. SUNIL Voice ID: [id number] Report ID: [id number] JULIETTE
[2020-09-25] MEDS: DULERA 100/5 (MOMETASONE/FORMOTEROL) INHALER IH SCH (21:31)
[2020-09-25] MEDS: LORAZEPAM 0.5 MG TABLET PO PRN (21:35)
[2020-09-26 05:11] LABS: Basophils % 0.7 % (0-1.3); Hematocrit 24.3 % (39.6-49.0); Lymphocytes % 13.6 % (15.3-44.8); MPV 10.5 fL (7.6-11.3); RBC Red Blood Cell Count 2.64 M/uL (4.33-5.43)
[2020-09-26 05:22] LABS: Magnesium 1.8 mg/dL (1.8-2.4); Potassium 3.6 mmol/L (3.5-5.1)
[2020-09-26] MEDS ORDERED: MAGNESIUM SULFATE 1 gm IVPB 1 GM/100 ML BAG IV ONE (05:29)
[2020-09-26] MEDS: HYDROCODONE/APAP 10/325 TAB PO PRN ×2 (06:15→20:57)
[2020-09-26] MEDS: DULERA 100/5 (MOMETASONE/FORMOTEROL) INHALER IH SCH ×2 (08:23→20:53)
[2020-09-26] MEDS: INSULIN -REGULAR HUMAN 50 UNIT/0.5 ML ML SQ SCH ×4 (08:24→20:55)
[2020-09-26] MEDS: QUETIAPINE 25 MG TAB PO SCH ×2 (08:25→20:56)
[2020-09-26] MEDS: TRAMADOL HCL 50 MG TAB PO PRN (08:25)
[2020-09-26] MEDS: FOLIC ACID 1 MG TABLET PO SCH (08:26)
[2020-09-26] MEDS: TAMSULOSIN 0.4 MG SR CAP PO SCH (08:26)
[2020-09-26] MEDS: THIAMINE HCL 100 MG TABLET PO SCH (08:26)
[2020-09-26] MEDS: TOPIRAMATE 25 MG TAB PO SCH (08:26)
[2020-09-26] MEDS: PANTOPRAZOLE 40MG TABLET PO SCH ×2 (08:27→20:57)
[2020-09-26] MEDS: LACTULOSE 20 GM/30 ML UCUP PO SCH ×3 (08:27→20:54)
[2020-09-26] MEDS: NEPRO SHAKE 237 ML CAN PO SCH (08:27)
[2020-09-26] MEDS: ACYCLOVIR 400 MG TABLET PO SCH (08:30)
[2020-09-26] MEDS: CALCIUM CARBONATE 500 MG TAB PO SCH ×3 (08:31→20:56)
--- NOTE | 2020-09-26 08:56 | P.PN ---
Subjective Date of Service: 09/26/20 Primary Care Provider: unknown Chief Complaint: Weakness Subjective: Improving, Doing well Physical Examination - Vital Signs Temperature: 97.7 F Blood Pressure: 124/73 Pulse: 87 Respirations: 18 Pulse Ox (%): 100 Assessment & Plan Discharge Plan: Other ([facility]itentiary facility) Plan to discharge in: 24 Hours Physician Review Additional Text: Physical exam: Patient doing well. Patient cooperative. Patient without significant agitation or distress. Heart: Regular rate and rhythm Lungs: Patient appears stable. No significant distress noted Abdomen: Soft nontender nondistended Extremities: Mild edema to the lower extremities. Good range of motion. Mentation: Patient appropriate at this time. Impression: Toxic/metabolic encephalopathy etiology unknown Fall with rhabdomyolysis Acute renal failure with metabolic acidosis and hyperkalemia with likely underlying chronic renal disease stage V, currently oliguric with ATN suspect related to prolonged prerenal and NSAID use Acute respiratory distress likely from volume overload Diabetes mellitus type 2 Elevated ammonia level with history of alcohol use with underlying fatty liver disease and hepatitis C Anemia likely of chronic disease BPH Migraine headaches History of alcohol/tobacco abuse COPD exacerbation Depression with anxiety Plan: Toxic/metabolic encephalopathy etiology unknown: Patient doing well at this time. Patient cooperative and appropriate. No agitation noted. Continue p hysical therapy and Occupational Therapy. Spoke at length with patient and yesterday. Both agree with skilled placement. Patient currently on acyclovir orally for total of 14 days for treatment. Renal function remains stable. Likely no need for hemodialysis as an outpatient. Will discuss with home health care social worker to help arrange for skilled placement. Anticipate discharge as early as today to skilled facility. Acute renal failure with metabolic acidosis and hyperkalemia with likely underlying chronic renal disease stage V, currently oliguric with ATN suspect related to prolonged prerenal and NSAID use: Spoke with nephrology. Likely no need for dialysis as an outpatient. Currently doing well at this time. Renal function shows improvement. Fall with rhabdomyolysis: Overall improved. Will monitor closely. Diabetes mellitus type 2: Patient no longer on Metformin. Hemoglobin A1c 6.9. Continue Accu-Cheks. Prednisone discontinued. Elevated ammonia level with history of alcohol use with underlying fatty liver disease and hepatitis C: Hepatitis C positive. Fatty liver noted on CT scan. History of alcohol abuse. Patient on thiamine and folic acid. Continue with nephrology recommendation. Anemia of chronic disease: We will monitor this closely. Maintain hemoglobin above 7.0. History of alcohol/tobacco abuse: Patient doing well at this time. Continue cessation education. Migraine headaches: Continue Topamax. Will provide medication for pain. BPH: Continue Flomax. COPD exacerbation: Continue COPD medication. Prednisone discontinued. Depression with anxiety: Continue with Seroquel for agitation Time Spent Managing Pts Care (In Minutes): 55
[2020-09-26] MEDS ORDERED: predniSONE 10 MG TAB PO SCH (09:00)
--- NOTE | 2020-09-26 13:14 | PN ---
Date of Progress Note: 09/26/2020 Subjective: The patient was admitted with acute kidney injury, rhabdomyolysis, hepatorenal. The patient's kidney function has been improved. The patient required dialysis, weaned from dialysis, last dialysis September 18. Physical Examination: Vital Signs: When I saw the patient; blood pressure 90/54, pulse of 82, afebrile. The patient had good urine output of 2100. Chest: Clear to auscultation. Heart: S1, S2. Regular. Abdomen: Soft, nontender. Extremity: No edema. Left IJ PermCath. Laboratory Data: WBC 7, H and H 8./24.3. Sodium 143, potassium 3.6, bicarb 21, BUN 30, creatinine 2, calcium 7.6, magnesium 1.8. Current Medications: The patient on include; 1. Acyclovir. 2. Flomax. 3. Calcium carbonate. 4. Quetiapine. 5. Lactulose. 6. Ipratropium. 7. Folic acid. 8. Tramadol. Assessment And Plan: 1. Acute kidney injury secondary to rhabdomyolysis/hepatorenal, recovered, resolved. No need for dialysis to discontinue PermCath. 2. Hypertension, currently blood pressure on the lower side. We will hold all blood pressure medications. 3. Rhabdomyolysis, recovered, resolved. 4. Acidosis, resolved. 5. Hepatic encephalopathy as by primary. time spend exam the patient face to face , discussing with patient , reviewing la and radiology date, placing order , discussing the case with staff and with other team consultan and hospitalist 45 min. SUNIL Voice ID: [id number] Report ID: [id number] JULIETTE
[2020-09-26] MEDS: GLUCERNA SHAKE 237 ML CAN PO SCH (20:54)
[2020-09-26] MEDS: LORAZEPAM 0.5 MG TABLET PO PRN (21:06)
[2020-09-27 05:20] LABS: Magnesium 1.8 mg/dL (1.8-2.4); Potassium 3.4 mmol/L (3.5-5.1)
[2020-09-27] MEDS ORDERED: POTASSIUM CL SA 10 MEQ TAB PO ONE (05:54)
[2020-09-27] MEDS ORDERED: MAGNESIUM SULFATE 1 gm IVPB 1 GM/100 ML BAG IV ONE ×2 (05:55→05:58)
[2020-09-27] MEDS: HYDROCODONE/APAP 10/325 TAB PO PRN ×2 (06:16→19:29)
[2020-09-27] MEDS: DULERA 100/5 (MOMETASONE/FORMOTEROL) INHALER IH SCH ×2 (07:57→19:31)
[2020-09-27] MEDS: TAMSULOSIN 0.4 MG SR CAP PO SCH (07:58)
[2020-09-27] MEDS: THIAMINE HCL 100 MG TABLET PO SCH (07:58)
[2020-09-27] MEDS: QUETIAPINE 25 MG TAB PO SCH ×2 (07:58→19:30)
[2020-09-27] MEDS: PANTOPRAZOLE 40MG TABLET PO SCH ×2 (07:58→19:30)
[2020-09-27] MEDS: FOLIC ACID 1 MG TABLET PO SCH (07:58)
[2020-09-27] MEDS: ACYCLOVIR 400 MG TABLET PO SCH (07:59)
[2020-09-27] MEDS: INSULIN -REGULAR HUMAN 50 UNIT/0.5 ML ML SQ SCH ×4 (07:59→19:41)
[2020-09-27] MEDS: TRAMADOL HCL 50 MG TAB PO PRN (07:59)
[2020-09-27] MEDS: TOPIRAMATE 25 MG TAB PO SCH (07:59)
[2020-09-27] MEDS: LACTULOSE 20 GM/30 ML UCUP PO SCH ×3 (08:00→19:30)
[2020-09-27] MEDS: GLUCERNA SHAKE 237 ML CAN PO SCH ×2 (08:00→19:34)
[2020-09-27] MEDS: CALCIUM CARBONATE 500 MG TAB PO SCH ×3 (08:02→19:30)
--- NOTE | 2020-09-27 08:18 | P.PN ---
Subjective Date of Service: 09/28/20 Primary Care Provider: unknown Chief Complaint: Weakness Subjective: Tolerating diet, Working w/ PT No acute events. Confused. Physical Examination - Vital Signs Temperature: 97.1 F Blood Pressure: 103/62 Pulse: 88 Respirations: 18 Pulse Ox (%): 96 - Physical Exam General: Confused HEENT: Atraumatic, Normocephalic Neck: Supple Respiratory: Normal air movement Cardiovascular: No rubs, No murmurs Gastrointestinal: Soft and benign, Non-distended Musculoskeletal: No swelling Assessment And Plan - Plan # Oliguric JULIUS likely 2/2 ATN from prolonged prerenal, in the setting of NSAID use Improved No longer needing HD PTH sig elevated at 197, indicative of advanced CKD at least stage 4 at baseline; recheck PTH at some point HD last received on 09/18 No acute indication for HD Monitor renal panel, I&O Cont flomax # HypoK Mild Monitor # AMS, unclear etiology, ? HSV encephalitis AMS improved but mental status not back to baseline Completing 14 days of po acyclovir # Htn BP low normal Monitor # Dispo Awaiting dc to snf
[2020-09-27] MEDS ORDERED: Phenylephrine HCl 10 MG/ML 1 ML VIAL ONE (09:53)
[2020-09-27] MEDS ORDERED: NS 0.9% VIAL 0 ML ONE ×2 (09:53→10:15)
[2020-09-27] MEDS ORDERED: EPHEDRINE SULF 50 MG/ML VIAL ONE (10:15)
--- NOTE | 2020-09-27 11:27 | P.PN ---
Subjective Date of Service: 09/27/20 Primary Care Provider: unknown Chief Complaint: Weakness Patient seen examined at bedside, no acute changes. Patient doing well continues to make improvement physical therapy. Vitals normal. Review of Systems 10-point ROS is otherwise unremarkable Physical Examination - Vital Signs Temperature: 97.1 F Blood Pressure: 103/62 Pulse: 88 Respirations: 16 Pulse Ox (%): 96 - Studies Temp Pulse Resp BP Pulse Ox 97.1 F 88 16 103/62 96 09/27/20 08:18 09/27/20 08:18 09/27/20 08:59 09/27/20 08:18 09/27/20 08:59 Laboratory Last Values WBC 13.00 K/uL (4.3-10.9) H 09/08/20 15:35 RBC 3.89 M/uL (4.33-5.43) L 09/08/20 15:35 Hgb 11.7 g/dL (13.6-17.9) L 09/08/20 15:35 Hct 37.7 % (39.6-49.0) L 09/08/20 15:35 MCV 96.8 fL (80-100) D 09/08/20 15:35 MCH 30.1 pg (27.0-35.0) 09/08/20 15:35 MCHC 31.1 g/dL (32.0-36.0) L 09/08/20 15:35 RDW 15.1 % (12.1-15.2) 09/08/20 15:35 Plt Count 207 K/uL (152-406) 09/08/20 15:35 MPV 9.9 fL (7.6-11.3) 09/08/20 15:35 Neutrophils % 81.2 % (41.7-73.7) H 09/08/20 15:35 Lymphocytes % 2.1 % (15.3-44.8) L 09/08/20 15:35 Monocytes % 16.6 % (3.3-12.3) H 09/08/20 15:35 Eosinophils % 0.0 % (0-4.4) 09/08/20 15:35 Basophils % 0.1 % (0-1.3) 09/08/20 15:35 Absolute Neutrophils 10.6 K/uL (1.8-8.0) H 09/08/20 15:35 Absolute Lymphocytes 0.3 K/uL (0.7-4.9) L 09/08/20 15:35 Absolute Monocytes 2.2 K/uL (0.1-1.3) H 09/08/20 15:35 Absolute Eosinophils 0.0 K/uL (0-0.5) 09/08/20 15:35 Absolute Basophils 0.0 K/uL (0-0.5) 09/08/20 15:35 Platelet Estimate Adeq 09/08/20 15:35 Morphology Comment Not seen (NOT SEEN) 09/08/20 15:35 PT 10.7 SECONDS (9.5-12.5) 09/08/20 15:35 INR 0.93 09/08/20 15:35 APTT 26.0 SECONDS (24.3-36.9) 09/08/20 15:35 Sodium 132 mmol/L (136-145) L 09/08/20 15:35 Potassium 7.4 mmol/L (3.5-5.1) H* 09/08/20 15:35 Chloride 92 mmol/L (98-107) L 09/08/20 15:35 Carbon Dioxide 7 mmol/L (21-32) L* 09/08/20 15:35 BUN 104 mg/dL (7-18) H 09/08/20 15:35 Creatinine 10.40 mg/dL (0.55-1.3) H* 09/08/20 15:35 Whole Bld Creatinine 12.0 mg/dL (0.6-1.3) H* 09/08/20 14:38 Estimated GFR 5 mL/min (=/>90) L 09/08/20 15:35 Glucose 171 mg/dL (74-106) H 09/08/20 15:35 Lactic Acid 7.2 mmol/L (0.4-2.0) H* 09/08/20 15:35 Calcium 6.8 mg/dL (8.5-10.1) L* 09/08/20 15:35 Total Bilirubin 0.8 mg/dL (0.2-1.0) 09/08/20 15:35 Direct Bilirubin 0.4 mg/dL (0-0.2) H 09/08/20 15:35 AST 27 U/L (15-37) 09/08/20 15:35 ALT 32 U/L (12-78) 09/08/20 15:35 Alkaline Phosphatase 98 U/L (45-117) 09/08/20 15:35 Ammonia 103 umol/L (19-54) H 09/08/20 15:35 Creatine Kinase 1869 U/L (39-308) H* 09/08/20 15:35 Rapid Troponin I < 0.02 ng/mL (0.0-0.045) 09/08/20 15:35 NT-Pro-B Natriuret Pep 8201 pg/mL (<125) H 09/08/20 15:35 Serum Total Protein 7.7 g/dL (6.4-8.2) 09/08/20 15:35 Albumin 3.6 g/dL (3.4-5.0) 09/08/20 15:35 Globulin 4.1 g/dL (2.3-3.5) H 09/08/20 15:35 Albumin/Globulin Ratio 0.9 (1.1-1.8) L 09/08/20 15:35 Lipase 307 U/L (73-393) 09/08/20 15:35 Procalcitonin 2.14 ng/mL (<0.050) H 09/08/20 15:35 Urine pH 6.0 (5.0-7.0) 09/08/20 17:08 Ur Specific [place] 1.030 (1.005-1.030) 09/08/20 17:08 Glucose (UA)(Auto) Negative (Negative) 09/08/20 17:08 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 FOLLOW UP CLERK 09/08/20 17:08 Urine Blood 2+ (Negative) H 09/08/20 17:08 Urine Nitrite Negative (NEG) 09/08/20 17:08 Ur Leukocyte Esterase Negative (NEG) 09/08/20 17:08 Urine RBC 5-10 /HPF (NONE SEEN) H 09/08/20 17:02 Urine WBC 5-10 /HPF (<5) H 09/08/20 17:02 Ur Squamous Epith Cells <5 /HPF (NONE SEEN) 09/08/20 17:02 Amorphous Sediment 2+ /HPF (NONE SEEN) H 09/08/20 17:02 Urine Bacteria 20-50 /HPF (NONE SEEN) H 09/08/20 17:02 Urine Sperm Present (NONE SEEN) H 09/08/20 17:02 Urine Culture Reflexed Reflexed 09/08/20 17:02 Urine Total Protein Negative (NEG) 09/08/20 17:08 Opiates Screen Positive (NEGATIVE) H 09/08/20 17:02 Methadone Screen Negative (NEGATIVE) 09/08/20 17:02 Ur Barbiturates Screen Negative (NEGATIVE) 09/08/20 17:02 Ur Phencyclidine Scrn Negative (NEGATIVE) 09/08/20 17:02 Amphetamines Screen Negative (NEGATIVE) 09/08/20 17:02 Benzodiazepines Screen Negative (NEGATIVE) 09/08/20 17:02 Cocaine Screen Negative (NEGATIVE) 09/08/20 17:02 Ur THC Screen Negative (NEGATIVE) 09/08/20 17:02 Plasma/Serum Alcohol < 10 mg/dL (<10) 09/08/20 15:35 SARS-CoV-2 RNA (RT-PCR) Negative (NEGATIVE) 09/08/20 16:18 Smear Scan Ok (OK) 09/08/20 15:35 ABO/Rh O POSITIVE 09/08/20 15:35 Solid Phase Ab Screen Negative 09/08/20 15:35 Assessment And Plan - Plan Physical Exam: General: Awake and alert. HEENT: Atraumatic, Normocephalic Neck: Supple, 2+ carotid pulse no bruit Respiratory: Clear to auscultation bilaterally, Normal air movement Cardiovascular: No edema, Normal pulses, Regular rate/rhythm Capillary refill: <2 Seconds Antibiotics Vancomycin Start: 09/13 Stop:09/25 Cefepime start: 09/15 stop: 09/25 Assessment: -viral encephalopathy -leukocytosis -JULIUS with metabolic acidosis -fall with rhabdomyolysis -anemia of chronic disease -COPD exacerbation -diabetes type 2 -history of alcohol/tobacco use Plan: -viral encephalopathy: Continue acyclovir for 2-4 weeks. - Blood cultures negative urine cultures negative. Repeat procalcitonin: Unremarkable. Antibiotics Dc the on 09/25. -medical management per primary team -continue monitor CBC and BMP -continue monitor signs infection Plan of care discussed with Dr. Schmidt Thank you for consultation.
--- NOTE | 2020-09-27 16:19 | P.PN ---
Subjective Date of Service: 09/27/20 Primary Care Provider: unknown Chief Complaint: Weakness Subjective: Doing well Physical Examination - Vital Signs Temperature: 97.7 F Blood Pressure: 107/71 Pulse: 82 Respirations: 16 Pulse Ox (%): 99 Assessment & Plan Discharge Plan: Other ([facility] facility) Plan to discharge in: 72 Hours Physician Review Additional Text: Physical exam: Patient doing well. Patient cooperative. Patient without significant agitation or distress. Heart: Regular rate and rhythm Lungs: Patient appears stable. No significant distress noted Abdomen: Soft nontender nondistended Extremities: Mild edema to the lower extremities. Good range of motion. Mentation: Patient appropriate at this time. Impression: Toxic/metabolic encephalopathy secondary to viral encephalitis Fall with rhabdomyolysis Acute renal failure with metabolic acidosis and hyperkalemia with likely underlying chronic renal disease stage V, currently oliguric with ATN suspect related to prolonged prerenal and NSAID use Acute respiratory distress likely from volume overload Diabetes mellitus type 2 Elevated ammonia level with history of alcohol use with underlying fatty liver disease and hepatitis C Anemia likely of chronic disease BPH Migraine headaches History of alcohol/tobacco abuse COPD exacerbation Depression with anxiety Plan: Toxic/metabolic encephalopathy secondary to viral encephalitis: Patient did well at this time. Continue antiviral medication for 14 days. Continue physical therapy and Occupational Therapy. Continue current plan of care to pursue skilled placement to continue therapy. Anticipate approval for skilled placement on Wednesday. Spoke with nephrology yesterday. Renal function stable and improved. Likely no need for hemodialysis at discharge. I will turn the service over to the hospitalist team tomorrow. I will go plan of care with him. Acute renal failure with metabolic acidosis and hyperkalemia with likely underlying chronic renal disease stage V, currently oliguric with ATN suspect related to prolonged prerenal and NSAID use: Spoke with nephrology. Likely no need for dialysis as an outpatient. Currently doing well at this time. Renal function shows improvement. Fall with rhabdomyolysis: Overall improved. Will monitor closely. Diabetes mellitus type 2: Patient no longer on Metformin. Hemoglobin A1c 6.9. Continue Accu-Cheks. Prednisone discontinued. Elevated ammonia level with history of alcohol use with underlying fatty liver disease and hepatitis C: Hepatitis C positive. Fatty liver noted on CT scan. History of alcohol abuse. Patient on thiamine and folic acid. Continue with nephrology recommendation. Anemia of chronic disease: We will monitor this closely. Maintain hemoglobin above 7.0. History of alcohol/tobacco abuse: Patient doing well at this time. Continue cessation education. Migraine headaches: Continue Topamax. Will provide medication for pain. BPH: Continue Flomax. COPD exacerbation: Continue COPD medication. Depression with anxiety: Continue with Seroquel for agitation Time Spent Managing Pts Care (In Minutes): 55
[2020-09-27] MEDS: LORAZEPAM 0.5 MG TABLET PO PRN (19:29)
[2020-09-28] MEDS: HYDROCODONE/APAP 10/325 TAB PO PRN (00:32)
[2020-09-28] MEDS: INSULIN -REGULAR HUMAN 50 UNIT/0.5 ML ML SQ SCH ×5 (07:30→22:00)
[2020-09-28] MEDS: THIAMINE HCL 100 MG TABLET PO SCH (08:28)
[2020-09-28] MEDS: TRAMADOL HCL 50 MG TAB PO PRN (08:28)
[2020-09-28] MEDS: DULERA 100/5 (MOMETASONE/FORMOTEROL) INHALER IH SCH ×2 (08:28→21:09)
[2020-09-28] MEDS: QUETIAPINE 25 MG TAB PO SCH ×2 (08:29→21:07)
[2020-09-28] MEDS: PANTOPRAZOLE 40MG TABLET PO SCH ×2 (08:29→21:08)
[2020-09-28] MEDS: ACYCLOVIR 400 MG TABLET PO SCH (08:29)
[2020-09-28] MEDS: TOPIRAMATE 25 MG TAB PO SCH (08:29)
[2020-09-28] MEDS: CALCIUM CARBONATE 500 MG TAB PO SCH ×3 (08:29→21:08)
[2020-09-28] MEDS: TAMSULOSIN 0.4 MG SR CAP PO SCH (08:29)
[2020-09-28] MEDS: FOLIC ACID 1 MG TABLET PO SCH (08:29)
[2020-09-28] MEDS: LACTULOSE 20 GM/30 ML UCUP PO SCH ×3 (08:29→21:08)
[2020-09-28] MEDS: GLUCERNA SHAKE 237 ML CAN PO SCH ×2 (08:31→21:00)
--- NOTE | 2020-09-28 14:12 | P.PN ---
Subjective Date of Service: 09/28/20 Primary Care Provider: unknown Chief Complaint: Weakness Subjective: Improving, Doing well Physical Examination - Vital Signs Temperature: 98.2 F Blood Pressure: 104/70 Pulse: 93 Respirations: 18 Pulse Ox (%): 99 Assessment & Plan Discharge Plan: Other (SNF) Plan to discharge in: 48 Hours Physician Review Additional Text: Physical exam: Patient doing well. Patient cooperative. Patient without significant agitation or distress. Heart: Regular rate and rhythm Lungs: Patient appears stable. No significant distress noted Abdomen: Soft nontender nondistended Extremities: Mild edema to the lower extremities. Good range of motion. Mentation: Patient appropriate at this time. Impression: Toxic/metabolic encephalopathy secondary to viral encephalitis Fall with rhabdomyolysis Acute renal failure with metabolic acidosis and hyperkalemia with likely underlying chronic renal disease stage V, currently oliguric with ATN suspect related to prolonged prerenal and NSAID use Acute respiratory distress likely from volume overload Diabetes mellitus type 2 Elevated ammonia level with history of alcohol use with underlying fatty liver disease and hepatitis C Anemia likely of chronic disease BPH Migraine headaches History of alcohol/tobacco abuse COPD exacerbation Depression with anxiety Plan: Toxic/metabolic encephalopathy secondary to viral encephalitis: Patient did well at this time. Continue antiviral medication for total of 14 days. Continue p hysical therapy and Occupational Therapy. Continue current plan of care to pursue skilled placement to continue therapy. Anticipate approval for skilled placement on Wednesday. Spoke with nephrology again today. Renal function stable and improved. Likely no need for hemodialysis at discharge. Will reach out to surgery to have hemodialysis catheter removed on Wednesday. This was a tunneled catheter. I will turn the service over to the hospitalist team tomorrow. I will go plan of care with him. Acute renal failure with metabolic acidosis and hyperkalemia with likely underlying chronic renal disease stage V, currently oliguric with ATN suspect related to prolonged prerenal and NSAID use: Spoke with nephrology. Likely no need for dialysis as an outpatient. Currently doing well at this time. Renal function shows improvement. Fall with rhabdomyolysis: Overall improved. Will monitor closely. Diabetes mellitus type 2: Patient no longer on Metformin. Hemoglobin A1c 6.9. Continue Accu-Cheks. Prednisone discontinued. Elevated ammonia level with history of alcohol use with underlying fatty liver disease and hepatitis C: Hepatitis C positive. Fatty liver noted on CT scan. History of alcohol abuse. Patient on thiamine and folic acid. Continue with nephrology recommendation. Anemia of chronic disease: We will monitor this closely. Maintain hemoglobin above 7.0. History of alcohol/tobacco abuse: Patient doing well at this time. Continue cessation education. Migraine headaches: Continue Topamax. Will provide medication for pain. BPH: Continue Flomax. COPD exacerbation: Continue COPD medication. Depression with anxiety: Continue with Seroquel for agitation Time Spent Managing Pts Care (In Minutes): 55
--- NOTE | 2020-09-28 15:25 | PN ---
Date of Progress Note: 09/28/2020 Subjective: The patient was admitted with acute kidney injury secondary to rhabdo and nonsteroidal use. The patient required dialysis, weaned from dialysis, dialysis back on September 18. Physical Examination: Vital Signs: Blood pressure 110/67, pulse of 87, afebrile. The patient had good urine output of 1700. Chest: Clear to auscultation. Heart: S1, S2 regular. Abdomen: Soft, nontender. Extremities: No edema. Neurologic: Alert, no focality. Laboratory Data: WBC 7, H and H 8.1/24.3. Sodium 143, potassium 3.4, bicarb 21, BUN 24, creatinine 1.8, GFR of 37. Current Medications: Include: 1. Acyclovir. 2. Calcium carbonate. 3. Quetiapine. 4. Ativan. 5. Topamax. 6. Glucerna. 7. Lactulose. 8. Zofran. 9. Folic acid. 10. Tramadol. Assessment And Plan: 1. Acute kidney injury secondary to rhabdomyolysis and nonsteroidal use. Recovered, resolved. 2. Hypertension, controlled, optimal. Continue current medication. 3. Rhabdomyolysis, resolved. 4. Encephalopathy secondary to hepatic and metabolic. Continue. Follow up with primary. 5. Hypokalemia. We will replace. We are waiting for removal of tunneled hemodialysis catheter. The patient does not require any dialysis. Case is discussed with Dr. Potter. time spend exam the patient face to face , discussing with patient , reviewing la and radiology date, placing order , discussing the case with staff and with other team consultan and hospitalist 45 min. SUNIL Voice ID: [id number] Report ID: [id number] MTDD
[2020-09-28] MEDS: LORAZEPAM 0.5 MG TABLET PO PRN (22:56)
[2020-09-29 05:54] LABS: Albumin 2.1 g/dL (3.4-5.0); Phosphorus 2.6 mg/dL (2.5-4.9); Potassium 3.6 mmol/L (3.5-5.1)
[2020-09-29] MEDS: PANTOPRAZOLE 40MG TABLET PO SCH ×2 (08:13→21:34)
[2020-09-29] MEDS: ACYCLOVIR 400 MG TABLET PO SCH (08:13)
[2020-09-29] MEDS: QUETIAPINE 25 MG TAB PO SCH ×2 (08:13→21:33)
[2020-09-29] MEDS: TOPIRAMATE 25 MG TAB PO SCH (08:13)
[2020-09-29] MEDS: TRAMADOL HCL 50 MG TAB PO PRN ×2 (08:14→21:34)
[2020-09-29] MEDS: TAMSULOSIN 0.4 MG SR CAP PO SCH (08:14)
[2020-09-29] MEDS: FOLIC ACID 1 MG TABLET PO SCH (08:14)
[2020-09-29] MEDS: THIAMINE HCL 100 MG TABLET PO SCH (08:14)
[2020-09-29] MEDS: INSULIN -REGULAR HUMAN 50 UNIT/0.5 ML ML SQ SCH ×4 (08:14→21:32)
[2020-09-29] MEDS: LACTULOSE 20 GM/30 ML UCUP PO SCH ×3 (08:15→21:33)
[2020-09-29] MEDS: CALCIUM CARBONATE 500 MG TAB PO SCH ×3 (08:15→21:45)
[2020-09-29] MEDS: GLUCERNA SHAKE 237 ML CAN PO SCH ×2 (08:15→21:35)
[2020-09-29] MEDS: DULERA 100/5 (MOMETASONE/FORMOTEROL) INHALER IH SCH ×2 (08:20→21:45)
[2020-09-29 08:37] LABS: Absolute Lymphocytes (CBC) 0.9 K/uL (0.7-4.9); Basophils % 0.3 % (0-1.3); Hematocrit 21.9 % (39.6-49.0); Lymphocytes % 12.2 % (15.3-44.8); MPV 9.3 fL (7.6-11.3); RBC Red Blood Cell Count 2.38 M/uL (4.33-5.43)
[2020-09-29] MEDS: SOD FERRIC GLUC COMPLX/SUCROSE 125 MG in NA CHLORIDE 0.9% 100 ML IV SCH (10:18)
--- NOTE | 2020-09-29 10:20 | P.PN ---
Subjective Date of Service: 09/29/20 Primary Care Provider: unknown Chief Complaint: Weakness Subjective: No C/O voiced (Pt reports he is feeling better) Physical Examination - Vital Signs Temperature: 97.8 F Blood Pressure: 95/61 Pulse: 101 Respirations: 18 Pulse Ox (%): 98 - Physical Exam General: Alert, Cooperative HEENT: Normocephalic Neck: Supple Respiratory: Clear to auscultation bilaterally Cardiovascular: No edema Gastrointestinal: Soft and benign Musculoskeletal: No clubbing, No swelling Integumentary: No rashes Neurological: Normal speech Assessment And Plan - Plan Continue acyclovir for 2 to 4 weeks Continue to monitor labs Medical management per primary care team Monitor for signs and symptoms of infection Plan discussed with Dr. Schmidt Thank you for the consultation Physician Review Additional Text: Physical exam: Patient doing well. Patient cooperative. Patient without significant agitation or distress. Heart: Regular rate and rhythm Lungs: Patient appears stable. No significant distress noted Abdomen: Soft nontender nondistended Extremities: Mild edema to the lower extremities. Good range of motion. Mentation: Patient appropriate at this time. Impression: Toxic/metabolic encephalopathy secondary to viral encephalitis Fall with rhabdomyolysis Acute renal failure with metabolic acidosis and hyperkalemia with likely underlying chronic renal disease stage V, currently oliguric with ATN suspect related to prolonged prerenal and NSAID use Acute respiratory distress likely from volume overload Diabetes mellitus type 2 Elevated ammonia level with history of alcohol use with underlying fatty liver disease and hepatitis C Anemia likely of chronic disease BPH Migraine headaches History of alcohol/tobacco abuse COPD exacerbation Depression with anxiety Plan: Toxic/metabolic encephalopathy secondary to viral encephalitis: Patient did well at this time. Continue antiviral medication for total of 14 days. Continue physical therapy and Occupational Therapy. Continue current plan of care to pursue skilled placement to continue therapy. Anticipate approval for skilled placement on Wednesday. Spoke with nephrology again today. Renal function stable and improved. Likely no need for hemodialysis at discharge. Will reach out to surgery to have hemodialysis catheter removed on Wednesday. This was a tunneled catheter. I will turn the service over to the hospitalist team tomorrow. I will go plan of care with him. Acute renal failure with metabolic acidosis and hyperkalemia with likely underlying chronic renal disease stage V, currently oliguric with ATN suspect related to prolonged prerenal and NSAID use: Spoke with nephrology. Likely no need for dialysis as an outpatient. Currently doing well at this time. Renal function shows improvement. Fall with rhabdomyolysis: Overall improved. Will monitor closely. Diabetes mellitus type 2: Patient no longer on Metformin. Hemoglobin A1c 6.9. Continue Accu-Cheks. Prednisone discontinued. Elevated ammonia level with history of alcohol use with underlying fatty liver disease and hepatitis C: Hepatitis C positive. Fatty liver noted on CT scan. History of alcohol abuse. Patient on thiamine and folic acid. Continue with nephrology recommendation. Anemia of chronic disease: We will monitor this closely. Maintain hemoglobin above 7.0. History of alcohol/tobacco abuse: Patient doing well at this time. Continue cessation education. Migraine headaches: Continue Topamax. Will provide medication for pain. BPH: Continue Flomax. COPD exacerbation: Continue COPD medication. Depression with anxiety: Continue with Seroquel for agitation Time Spent Managing PTS Care (In Minutes): 35
--- NOTE | 2020-09-29 13:11 | PN ---
Date of Progress Note: 09/29/2020 Subjective: The patient was admitted with rhabdo, acute kidney injury, anuric. The patient required dialysis, last dialysis was September 18, then weaned from dialysis. Since then, the patient had good urine output. Kidney function continued to improve. Physical Examination: Vital Signs: Blood pressure of 95/61, pulse of 101, afebrile. The patient had good urine output of 1500. Chest: Clear to auscultation. Heart: S1, S2. Regular. Abdomen: Soft, nontender. Extremity: No edema. Neuro: Alert. Confused. Laboratory Data: WBC 7.8, H and H 7.2/21.9, and platelets 110. Sodium 136, potassium 3.6, bicarb 22, BUN 19, creatinine 1.6, GFR of 42, calcium 8.2, phosphorus 2.6, albumin 2.1. Corrected calcium is 9.8. Current Medications: The patient on include; 1. Acyclovir. 2. Flomax. 3. Ferrous sulfate. 4. Calcium carbonate. 5. Topamax. 6. Lactulose. 7. Folic acid. Assessment And Plan: 1. Acute kidney injury secondary to rhabdomyolysis, nonsteroidal use, recovered. Trending creatinine, continue to trend down. GFR improving. Nonoliguric, normal volume. I do not see the need for any further dialysis. We will consult Surgery for removal of the tunneled hemodialysis catheter. We will discontinue the Velazquez and do postvoid bladder scan. 2. Iron deficiency anemia. Continue IV iron. 3. Hypertension, controlled, optimal. Continue current medication. Keep avoiding any TJ inhibitor or ARB. 4. Secondary hyperparathyroidism. Continue calcium carbonate. 5. Hypokalemia. We will supplement. 6. Rhabdomyolysis, resolved. 7. Encephalopathy. Follow up with primary. 8. Acidosis, resolved. Time spent discussing with the patient, examining the patient, [id number] with the patient, placing orders, discussing the case with our human resources team member including nursing, discussing the case with the other subspecialty including Cardiology and hospitalist 35 minutes. SUNIL Voice ID: [id number] Report ID: [id number] JULIETTE
--- NOTE | 2020-09-29 14:03 | P.PN ---
Subjective Date of Service: 09/29/20 Primary Care Provider: unknown Chief Complaint: Weakness Subjective: No new changes, Improving Physical Examination - Vital Signs Temperature: 97.5 F Blood Pressure: 99/58 Pulse: 95 Respirations: 16 Pulse Ox (%): 98 - Physical Exam General: In no apparent distress, Cooperative HEENT: Atraumatic, Normocephalic Neck: Supple Respiratory: Clear to auscultation bilaterally, Normal air movement Cardiovascular: Regular rate/rhythm, Normal S1 S2, No murmurs, Other (Tunneled hemodialysis catheter) Gastrointestinal: Soft and benign, Non-distended Musculoskeletal: No clubbing, No swelling, No contractures, No erythema, No tenderness, No warmth Neurological: Normal speech, Normal tone, Normal affect Assessment & Plan Physician Review: Patient Assessed, Agree with Above Assessment and Plan Physician Review Additional Text: Assessment Patient is a 60-year-old male with a past medical history hepatitis-C, hypertension and hyperlipidemia who presented to the hospital after he was found down. He was found to have rhabdomyolysis complicated by oliguric acute renal failure and hyperkalemia. Workup for his encephalopathy yielded hepatic encephalopathy, and viral encephalitis for which she is on acyclovir. Patient has been here for 21 days. Is being Nile stable for the past 48 hr. Today's blood work however shows a hemoglobin of 7.0. Impression: Anemia Toxic/metabolic encephalopathy secondary to viral encephalitis Fall with rhabdomyolysis Acute renal failure with metabolic acidosis and hyperkalemia with likely underlying chronic renal disease stage V, currently oliguric with ATN suspect related to prolonged prerenal and NSAID use Acute respiratory distress likely from volume overload Diabetes mellitus type 2 Elevated ammonia level with history of alcohol use with underlying fatty liver disease and hepatitis C Anemia likely of chronic disease BPH Migraine headaches History of alcohol/tobacco abuse COPD exacerbation Depression with anxiety Plan: Anemia of chronic disease: - multi factorial: Ongoing kidney failure, iron-deficiency anemia, st eatohepatitis - hemoglobin 7.2 today. No signs of bleeding. - last colonoscopy approximately 3-5 years ago. states no abnormalities were reported. - started on iron infusion by Nephrology - will repeat hemoglobin tomorrow, transfuse if hemoglobin is less than 7. Toxic/metabolic encephalopathy secondary to viral encephalitis: - Patient did well at this time. Infectious Disease is assisting for the total duration of acyclovir. - patient is slow to answer questions. There could also be a component of undiagnosed dementia. - ID recommends continuing acyclovir for 2-3 weeks. Acute renal failure with metabolic acidosis and hyperkalemia with likely underlying chronic renal disease stage V, currently oliguric with ATN suspect related to prolonged prerenal and NSAID use: - no additional hemodialysis sessions anticipated by Nephrology. Renal function continues to improve. - please read chart to surgery for removal of tunneled hemodialysis catheter. Fall with rhabdomyolysis: - much improved Diabetes mellitus type 2: - Patient no longer on Metformin. Hemoglobin A1c 6.9. Continue Accu-Cheks. Elevated ammonia level with history of alcohol use with underlying fatty liver disease and hepatitis C: - Hepatitis C positive. Fatty liver noted on CT scan. History of alcohol abuse. - CONTINUE THIAMINE AND FOLIC ACID History of alcohol/tobacco abuse: - Patient doing well at this time. Continue cessation education. Migraine headaches: - Continue Topamax. Will provide medication for pain. BPH: - Continue Flomax. Velazquez to be discontinued COPD exacerbation: - Continue COPD medication. Depression with anxiety: - Continue with Seroquel for agitation
[2020-09-30 06:15] LABS: Albumin 2.1 g/dL (3.4-5.0); Potassium 3.6 mmol/L (3.5-5.1)
[2020-09-30 06:45] LABS: Absolute Lymphocytes (CBC) 0.7 K/uL (0.7-4.9); Basophils % 0.4 % (0-1.3); Hematocrit 22.6 % (39.6-49.0); Lymphocytes % 10.5 % (15.3-44.8); MPV 9.9 fL (7.6-11.3); RBC Red Blood Cell Count 2.47 M/uL (4.33-5.43)
[2020-09-30] MEDS: FOLIC ACID 1 MG TABLET PO SCH (07:18)
[2020-09-30] MEDS: CALCIUM CARBONATE 500 MG TAB PO SCH ×3 (07:19→21:00)
[2020-09-30] MEDS: TOPIRAMATE 25 MG TAB PO SCH (07:19)
[2020-09-30] MEDS: QUETIAPINE 25 MG TAB PO SCH ×2 (07:19→20:13)
[2020-09-30] MEDS: THIAMINE HCL 100 MG TABLET PO SCH (07:19)
[2020-09-30] MEDS: TAMSULOSIN 0.4 MG SR CAP PO SCH (07:20)
[2020-09-30] MEDS: TRAMADOL HCL 50 MG TAB PO PRN (07:20)
[2020-09-30] MEDS: PANTOPRAZOLE 40MG TABLET PO SCH ×2 (07:21→20:13)
[2020-09-30] MEDS: ACYCLOVIR 400 MG TABLET PO SCH (07:21)
[2020-09-30] MEDS: DULERA 100/5 (MOMETASONE/FORMOTEROL) INHALER IH SCH ×2 (07:21→21:00)
[2020-09-30] MEDS: LACTULOSE 20 GM/30 ML UCUP PO SCH ×3 (07:22→21:00)
[2020-09-30] MEDS: INSULIN -REGULAR HUMAN 50 UNIT/0.5 ML ML SQ SCH ×4 (07:30→21:00)
[2020-09-30] MEDS: GLUCERNA SHAKE 237 ML CAN PO SCH ×2 (08:07→21:00)
[2020-09-30] MEDS ORDERED: NA CHLORIDE 0.9% 500 ML ONE (08:56)
[2020-09-30] MEDS ORDERED: BUPIVACAINE 0.25% PF 10 ML VIAL ONE (09:17)
[2020-09-30] MEDS ORDERED: LIDOCAINE 1% MPF 30 ML VIAL ONE (09:17)
[2020-09-30] MEDS ORDERED: FENTANYL CITR 100 MCG/2 ML ONE (09:34)
[2020-09-30] MEDS ORDERED: MIDAZOLAM HCL 2 MG/2 ML INJ ONE (09:34)
[2020-09-30] MEDS ORDERED: ONDANSETRON 4 MG/2 ML VIAL ONE (09:34)
[2020-09-30] MEDS ORDERED: propofoL 200 MG/20 ML VIAL IV ONE (09:34)
[2020-09-30] MEDS ORDERED: LIDOCAINE 2% MPF 5 ML VIAL ONE (09:34)
--- NOTE | 2020-09-30 11:07 | P.OP ---
Preoperative diagnosis: Renal Recovery, no hemodialysis needed Postoperative diagnosis: Renal Recovery, no hemodialysis needed Primary procedure: Removal of LEFT internal jugular tunnelled hemodialysis catheter Anesthesia: MAC Estimated blood loss: <1cc Specimen: catheter for ID only Findings: catheter not firmly attached Complications: None Transferred to: Recovery Room Condition: Good
--- NOTE | 2020-09-30 14:21 | OP ---
Date of Procedure: 09/30/2020 Surgeon: Wesly Bacon MD, Preoperative Diagnosis: Renal recovery. No need for ongoing hemodialysis. Postoperative Diagnosis: Renal recovery. No need for ongoing hemodialysis. Procedure Performed: Removal of left internal jugular tunneled hemodialysis catheter. Anesthesia: MAC. Estimated Blood Loss: Less than 1 mL. Specimens: Catheter sent for ID only. Findings: Catheter not firmly attached. Complications: None. Disposition: The patient was transferred to recovery room in good condition. Procedure In Detail: After informed consent was obtained, the patient was brought to the operating r oom, prepped and draped in the usual sterile fashion after adequate anesthesia was achieved. The pat ient was placed in steep Trendelenburg position. I removed the internal jugular insertion site sutur e as well as the sutures attaching the catheter to the insertion site at the infraclavicular position . After these were positioned, the patient remained in steep Trendelenburg. Pressure was held on th e insertion site and on the exit site, and the catheter was removed at this point and sent off for pa thologic examination for identification only. Pressure was held. The patient was taken out of Trend elenburg position. The insertion site of the catheter was then irrigated and the wound was closed us ing a single interrupted 3-0 nylon suture and sterile dressing placed over top. The patient tolerate d the procedure well without evidence of complication and transferred to PACU in good condition. All counts were correct at the end of the case. TK/MODL Voice ID: [id number] Report ID: [id number]
--- NOTE | 2020-09-30 14:29 | P.PN ---
Subjective Date of Service: 09/30/20 Primary Care Provider: unknown Chief Complaint: Weakness Patient seen examined at bedside, no acute changes. Patient does not have any infection at this time, wound care will sign off. Please re-consult if needed. Review of Systems 10-point ROS is otherwise unremarkable Physical Examination - Vital Signs Temperature: 97.7 F Blood Pressure: 108/71 Pulse: 94 Respirations: 17 Pulse Ox (%): 95 - Studies Laboratory Last Values WBC 13.00 K/uL (4.3-10.9) H 09/08/20 15:35 RBC 3.89 M/uL (4.33-5.43) L 09/08/20 15:35 Hgb 11.7 g/dL (13.6-17.9) L 09/08/20 15:35 Hct 37.7 % (39.6-49.0) L 09/08/20 15:35 MCV 96.8 fL (80-100) D 09/08/20 15:35 MCH 30.1 pg (27.0-35.0) 09/08/20 15:35 MCHC 31.1 g/dL (32.0-36.0) L 09/08/20 15:35 RDW 15.1 % (12.1-15.2) 09/08/20 15:35 Plt Count 207 K/uL (152-406) 09/08/20 15:35 MPV 9.9 fL (7.6-11.3) 09/08/20 15:35 Neutrophils % 81.2 % (41.7-73.7) H 09/08/20 15:35 Lymphocytes % 2.1 % (15.3-44.8) L 09/08/20 15:35 Monocytes % 16.6 % (3.3-12.3) H 09/08/20 15:35 Eosinophils % 0.0 % (0-4.4) 09/08/20 15:35 Basophils % 0.1 % (0-1.3) 09/08/20 15:35 Absolute Neutrophils 10.6 K/uL (1.8-8.0) H 09/08/20 15:35 Absolute Lymphocytes 0.3 K/uL (0.7-4.9) L 09/08/20 15:35 Absolute Monocytes 2.2 K/uL (0.1-1.3) H 09/08/20 15:35 Absolute Eosinophils 0.0 K/uL (0-0.5) 09/08/20 15:35 Absolute Basophils 0.0 K/uL (0-0.5) 09/08/20 15:35 Platelet Estimate Adeq 09/08/20 15:35 Morphology Comment Not seen (NOT SEEN) 09/08/20 15:35 PT 10.7 SECONDS (9.5-12.5) 09/08/20 15:35 INR 0.93 09/08/20 15:35 APTT 26.0 SECONDS (24.3-36.9) 09/08/20 15:35 Sodium 132 mmol/L (136-145) L 09/08/20 15:35 Potassium 7.4 mmol/L (3.5-5.1) H* 09/08/20 15:35 Chloride 92 mmol/L (98-107) L 09/08/20 15:35 Carbon Dioxide 7 mmol/L (21-32) L* 09/08/20 15:35 BUN 104 mg/dL (7-18) H 09/08/20 15:35 Creatinine 10.40 mg/dL (0.55-1.3) H* 09/08/20 15:35 Whole Bld Creatinine 12.0 mg/dL (0.6-1.3) H* 09/08/20 14:38 Estimated GFR 5 mL/min (=/>90) L 09/08/20 15:35 Glucose 171 mg/dL (74-106) H 09/08/20 15:35 Lactic Acid 7.2 mmol/L (0.4-2.0) H* 09/08/20 15:35 Calcium 6.8 mg/dL (8.5-10.1) L* 09/08/20 15:35 Total Bilirubin 0.8 mg/dL (0.2-1.0) 09/08/20 15:35 Direct Bilirubin 0.4 mg/dL (0-0.2) H 09/08/20 15:35 AST 27 U/L (15-37) 09/08/20 15:35 ALT 32 U/L (12-78) 09/08/20 15:35 Alkaline Phosphatase 98 U/L (45-117) 09/08/20 15:35 Ammonia 103 umol/L (19-54) H 09/08/20 15:35 Creatine Kinase 1869 U/L (39-308) H* 09/08/20 15:35 Rapid Troponin I < 0.02 ng/mL (0.0-0.045) 09/08/20 15:35 NT-Pro-B Natriuret Pep 8201 pg/mL (<125) H 09/08/20 15:35 Serum Total Protein 7.7 g/dL (6.4-8.2) 09/08/20 15:35 Albumin 3.6 g/dL (3.4-5.0) 09/08/20 15:35 Globulin 4.1 g/dL (2.3-3.5) H 09/08/20 15:35 Albumin/Globulin Ratio 0.9 (1.1-1.8) L 09/08/20 15:35 Lipase 307 U/L (73-393) 09/08/20 15:35 Procalcitonin 2.14 ng/mL (<0.050) H 09/08/20 15:35 Urine pH 6.0 (5.0-7.0) 09/08/20 17:08 Ur Specific [place] 1.030 (1.005-1.030) 09/08/20 17:08 Glucose (UA)(Auto) Negative (Negative) 09/08/20 17:08 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 [employer] WORKER 09/08/20 17:08 Urine Blood 2+ (Negative) H 09/08/20 17:08 Urine Nitrite Negative (NEG) 09/08/20 17:08 Ur Leukocyte Esterase Negative (NEG) 09/08/20 17:08 Urine RBC 5-10 /HPF (NONE SEEN) H 09/08/20 17:02 Urine WBC 5-10 /HPF (<5) H 09/08/20 17:02 Ur Squamous Epith Cells <5 /HPF (NONE SEEN) 09/08/20 17:02 Amorphous Sediment 2+ /HPF (NONE SEEN) H 09/08/20 17:02 Urine Bacteria 20-50 /HPF (NONE SEEN) H 09/08/20 17:02 Urine Sperm Present (NONE SEEN) H 09/08/20 17:02 Urine Culture Reflexed Reflexed 09/08/20 17:02 Urine Total Protein Negative (NEG) 09/08/20 17:08 Opiates Screen Positive (NEGATIVE) H 09/08/20 17:02 Methadone Screen Negative (NEGATIVE) 09/08/20 17:02 Ur Barbiturates Screen Negative (NEGATIVE) 09/08/20 17:02 Ur Phencyclidine Scrn Negative (NEGATIVE) 09/08/20 17:02 Amphetamines Screen Negative (NEGATIVE) 09/08/20 17:02 Benzodiazepines Screen Negative (NEGATIVE) 09/08/20 17:02 Cocaine Screen Negative (NEGATIVE) 09/08/20 17:02 Ur THC Screen Negative (NEGATIVE) 09/08/20 17:02 Plasma/Serum Alcohol < 10 mg/dL (<10) 09/08/20 15:35 SARS-CoV-2 RNA (RT-PCR) Negative (NEGATIVE) 09/08/20 16:18 Smear Scan Ok (OK) 09/08/20 15:35 ABO/Rh O POSITIVE 09/08/20 15:35 Solid Phase Ab Screen Negative 09/08/20 15:35 Temp Pulse Resp BP Pulse Ox 97.7 F 94 H 17 108/71 95 09/30/20 12:00 09/30/20 12:00 09/30/20 12:00 09/30/20 12:00 09/30/20 12:00 Assessment And Plan - Plan Physical Exam: General: Awake and alert. HEENT: Atraumatic, Normocephalic Neck: Supple, 2+ carotid pulse no bruit Respiratory: Clear to auscultation bilaterally, Normal air movement Cardiovascular: No edema, Normal pulses, Regular rate/rhythm Capillary refill: <2 Seconds Antibiotics Vancomycin Start: 09/13 Stop:09/25 Cefepime start: 09/15 stop: 09/25 Assessment: -viral encephalopathy -leukocytosis -JULIUS with metabolic acidosis -fall with rhabdomyolysis -anemia of chronic disease -COPD exacerbation -diabetes type 2 -history of alcohol/tobacco use Plan: -viral encephalopathy: Continue acyclovir for 2-4 weeks. - Blood cultures negative urine cultures negative. Repeat procalcitonin: Unremarkable. Antibiotics Dc the on 09/25. -medical management per primary team -continue monitor CBC and BMP -continue monitor signs infection -the Infectious disease. Will sign off at this time. Please re-consult if needed. Plan of care discussed with Dr. Schmidt Thank you for consultation. Physician Review: Patient Assessed, Agree with Above Assessment and Plan
[2020-09-30] MEDS: HYDROCODONE/APAP 10/325 TAB PO PRN (20:13)
[2020-09-30] MEDS: LORAZEPAM 0.5 MG TABLET PO PRN (20:14)
--- NOTE | 2020-09-30 21:51 | PN ---
Date of Progress Note: 09/30/2020 Chief Complaint: Acute kidney injury, severe. History Of Present Illness: The patient required dialysis and subsequently after September 18, he was wea anjali off dialysis, so urine output has improved and renal function is gradually improving. Review of Systems: Denies PND or orthopnea. Physical Examination: Lungs: Clear to auscultation bilaterally. Heart: S1, S2. Abdomen: Soft, benign. Extremities: No edema. Neurologic: The patient remains confused. Answers few questions. Impression And Plan: 1.Acute kidney injury secondary to rhabdomyolysis, nonoliguric acute tubular necrosis, complicated b y nonsteroidal anti-inflammatory medication usage. Creatinine level is improving. The patient has h istory of rhabdomyolysis, it resolved. 2.Encephalopathy. The patient will follow with primary. 3.Acidosis related to acute kidney injury and metformin, resolved with dialysis. 4.Hypertension. Continue blood pressure medication. EB/MODL Voice ID: [id number] Report ID: [id number]
[2020-10-01] MEDS: TRAMADOL HCL 50 MG TAB PO PRN (03:11)
[2020-10-01 05:58] LABS: Absolute Lymphocytes (CBC) 0.8 K/uL (0.7-4.9); Basophils % 0.3 % (0-1.3); Hematocrit 22.8 % (39.6-49.0); Lymphocytes % 13.3 % (15.3-44.8); MPV 9.2 fL (7.6-11.3); RBC Red Blood Cell Count 2.46 M/uL (4.33-5.43)
[2020-10-01 06:04] LABS: Albumin 2.1 g/dL (3.4-5.0); Phosphorus 3.5 mg/dL (2.5-4.9); Potassium 3.8 mmol/L (3.5-5.1)
[2020-10-01] MEDS: INSULIN -REGULAR HUMAN 50 UNIT/0.5 ML ML SQ SCH ×4 (07:30→21:00)
--- NOTE | 2020-10-01 08:09 | P.PN ---
Date of Service: 09/30/20 Subjective Patient mentation continues to improve. Patient's symptoms are much better. Working on jail facility placement. Patient much more awake and alert the knee had been the week before. He is starting to remember things a little bit better. Encephalitis is improving. Review of Systems is unable to be obtained Physical Examination - Vital Signs Reviewed - Physical Exam General: More awake and alert. Following some commands. Restraints Dc during the daytime. Respiratory: Clear to auscultation bilaterally, Normal air movement Cardiovascular: Regular rate/rhythm, Normal S1 S2 Gastrointestinal: Normal bowel sounds, Soft and benign, Non-distended Musculoskeletal: No clubbing Neurological: Normal strength at 5/5 x4 extr, Sensation intact, Cranial nerves 3-12 intact Assessment & Plan - Problems (Diagnosis) (1) ESRD (end stage renal disease); new onset Current Visit: Yes Status: Acute (2) Altered mental status Current Visit: Yes Status: Acute (3) Viral Encephalitis Current Visit: Yes Status: Acute (4) Uremia encephalopathy Current Visit: Yes Status: Acute - Plan Plan: Continue with plan of care as mentioned below 1. No longer needing hemodialysis. Tessio catheter removed. 2. Continue IV hydration and monitor urine output closely; monitor urine output closely. Will Hep-Lock IV 3. Continue acyclovir for a total of 2-4 weeks 4. Monitor renal function closely as well as strict input and output 5. Discontinued restraints. Continuing monitoring neuro status closely. 6. Started Seroquel and will continue twice daily 7. GI and DVT prophylaxis
--- NOTE | 2020-10-01 08:11 | P.PN ---
Date of Service: 10/01/20 Subjective Patient continued to improve. Patient more awake and alert. Awaiting for assisted placement. Review of Systems is unable to be obtained Physical Examination - Vital Signs Reviewed - Physical Exam General: More awake and alert. Following some commands. Restraints Dc during the daytime. Respiratory: Clear to auscultation bilaterally, Normal air movement Cardiovascular: Regular rate/rhythm, Normal S1 S2 Gastrointestinal: Normal bowel sounds, Soft and benign, Non-distended Neurological: Strength is intact a little bit of ataxia on his gait Assessment & Plan - Problems (Diagnosis) (1) ESRD (end stage renal disease); new onset Current Visit: Yes Status: Acute (2) Altered mental status Current Visit: Yes Status: Acute (3) Viral Encephalitis Current Visit: Yes Status: Acute (4) Uremia encephalopathy Current Visit: Yes Status: Acute - Plan Plan: Continue with plan of care as mentioned below 1. Discontinued dialysis catheter 2. Awaiting for placement 3. Continue acyclovir for a total of 2-4 weeks 4. Monitor renal function closely as well as strict input and output 5. Discontinued restraints. Continuing monitoring neuro status closely. 6. Started Seroquel and will continue twice daily 7. GI and DVT prophylaxis
[2020-10-01] MEDS: LACTULOSE 20 GM/30 ML UCUP PO SCH ×3 (08:39→21:00)
[2020-10-01] MEDS: TOPIRAMATE 25 MG TAB PO SCH (08:46)
[2020-10-01] MEDS: QUETIAPINE 25 MG TAB PO SCH ×2 (08:46→21:33)
[2020-10-01] MEDS: THIAMINE HCL 100 MG TABLET PO SCH (08:46)
[2020-10-01] MEDS: HYDROCODONE/APAP 10/325 TAB PO PRN ×3 (08:46→21:33)
[2020-10-01] MEDS: FOLIC ACID 1 MG TABLET PO SCH (08:47)
[2020-10-01] MEDS: TAMSULOSIN 0.4 MG SR CAP PO SCH (08:47)
[2020-10-01] MEDS: GLUCERNA SHAKE 237 ML CAN PO SCH ×2 (08:47→21:00)
[2020-10-01] MEDS: DULERA 100/5 (MOMETASONE/FORMOTEROL) INHALER IH SCH ×2 (08:47→21:00)
[2020-10-01] MEDS: ACYCLOVIR 400 MG TABLET PO SCH (08:47)
[2020-10-01] MEDS: CALCIUM CARBONATE 500 MG TAB PO SCH ×3 (08:47→21:33)
[2020-10-01] MEDS: PANTOPRAZOLE 40MG TABLET PO SCH ×2 (08:50→21:33)
--- NOTE | 2020-10-01 09:59 | P.PN ---
Subjective Date of Service: 10/01/20 Primary Care Provider: unknown Chief Complaint: Weakness Reports no headache or SOB. Physical Examination - Vital Signs Temperature: 96.9 F Blood Pressure: 106/69 Pulse: 98 Respirations: 16 Pulse Ox (%): 97 - Physical Exam General: Other (Appears chronically ill) HEENT: Atraumatic, Normocephalic Neck: Supple Respiratory: Clear to auscultation bilaterally Cardiovascular: No rubs, No murmurs Gastrointestinal: Soft and benign, Non-distended Musculoskeletal: No swelling Neurological: Other (+Confusion) Assessment And Plan - Plan # Oliguric JULIUS likely 2/2 ATN from prolonged prerenal, in the setting of NSAID use Improved No longer needing HD PTH sig elevated at 197, indicative of advanced CKD at least stage 4 at baseline; recheck PTH at some point HD last received on 09/18 No acute indication for HD Monitor renal panel, I&O Cont flomax # HypoK Mild Monitor # AMS, unclear etiology, ? HSV encephalitis AMS improved but mental status not back to baseline Completing 14 days of po acyclovir # Htn BP stable Monitor # Dispo Awaiting dc to snf Physician Review: Patient Assessed, Agree with Above Assessment and Plan
[2020-10-02] MEDS: HYDROCODONE/APAP 10/325 TAB PO PRN ×3 (03:00→21:36)
[2020-10-02] MEDS: ONDANSETRON 4 MG/2 ML VIAL IV PRN (03:16)
[2020-10-02 05:28] LABS: Absolute Lymphocytes (CBC) 0.9 K/uL (0.7-4.9); Basophils % 0.4 % (0-1.3); Hematocrit 22.1 % (39.6-49.0); Lymphocytes % 16.7 % (15.3-44.8); MPV 9.7 fL (7.6-11.3); RBC Red Blood Cell Count 2.39 M/uL (4.33-5.43)
[2020-10-02 06:05] LABS: Phosphorus 3.6 mg/dL (2.5-4.9); Potassium 3.8 mmol/L (3.5-5.1)
[2020-10-02] MEDS: INSULIN -REGULAR HUMAN 50 UNIT/0.5 ML ML SQ SCH ×4 (07:30→21:00)
[2020-10-02] MEDS: GLUCERNA SHAKE 237 ML CAN PO SCH ×2 (09:00→21:00)
[2020-10-02 09:40] VITALS: O2SAT 98
[2020-10-02] MEDS: THIAMINE HCL 100 MG TABLET PO SCH (10:23)
[2020-10-02] MEDS: TOPIRAMATE 25 MG TAB PO SCH (10:23)
[2020-10-02] MEDS: TAMSULOSIN 0.4 MG SR CAP PO SCH (10:23)
[2020-10-02] MEDS: FOLIC ACID 1 MG TABLET PO SCH (10:24)
[2020-10-02] MEDS: QUETIAPINE 25 MG TAB PO SCH ×2 (10:24→21:35)
[2020-10-02] MEDS: PANTOPRAZOLE 40MG TABLET PO SCH ×2 (10:24→21:35)
[2020-10-02] MEDS: LACTULOSE 20 GM/30 ML UCUP PO SCH ×3 (10:25→21:35)
[2020-10-02] MEDS: CALCIUM CARBONATE 500 MG TAB PO SCH ×3 (10:30→21:36)
[2020-10-02] MEDS: DULERA 100/5 (MOMETASONE/FORMOTEROL) INHALER IH SCH ×2 (10:32→21:00)
[2020-10-02] MEDS: ACYCLOVIR 400 MG TABLET PO SCH (10:32)
--- NOTE | 2020-10-02 14:11 | PN ---
Date of Progress Note: 10/02/2020 Subjective: The patient was admitted with acute kidney injury secondary to rhabdo, prerenal, recovered, resolved, requiring dialysis, weaned from dialysis, last dialysis September 18. The patient is nonoliguric. Velazquez has been discontinued. Hemodialysis catheter discontinued. Physical Examination: Vital Signs: Blood pressure of 101/59, pulse of 87, afebrile. Chest: Clear to auscultation. Heart: S1, S2. Regular. Abdomen: Soft, nontender. Extremity: No edema. Neuro: Alert. No focality. Laboratory Data: H and H 7.3/22.1. Sodium 143, potassium 3.8, bicarb 24, BUN 17, creatinine 1.6, calcium 8.8, phosphorus 3.6. Current Medications: The patient on include acyclovir, IV iron, calcium carbonate, ipratropium, folic acid. Assessment And Plan: 1. Acute kidney injury secondary to rhabdomyolysis, prerenal, recovered, resolved. No need for dialysis. 2. Hypertension, controlled, optimal. Keep holding all blood pressure medications. 3. Rhabdomyolysis, resolved. 4. Hypokalemia, status post supplement. 5. Acidosis, resolved. Time spent discussing with the patient, examining the patient, [id number] with the patient, placing orders, discussing the case with our restaurant hourly team member including nursing, discussing the case with the other subspecialty including Cardiology and hospitalist 35 minutes. SUNIL Voice ID: [id number] Report ID: [id number] MTDD
[2020-10-02] MEDS: SOD FERRIC GLUC COMPLX/SUCROSE 125 MG in NA CHLORIDE 0.9% 100 ML IV SCH (14:39)
[2020-10-02] MEDS: LORazepam 2 MG/ML VIAL IV ONE (23:45)
[2020-10-03] MEDS: LORazepam 2 MG/ML VIAL IV ONE (00:03)
[2020-10-03] MEDS ORDERED: LORazepam 2 MG/ML VIAL IV ONE (00:45)
[2020-10-03] MEDS ORDERED: LORAZEPAM 0.5 MG TABLET PO ONE (01:11)
[2020-10-03 04:31] LABS: Phosphorus 3.2 mg/dL (2.5-4.9); Potassium 3.7 mmol/L (3.5-5.1)
[2020-10-03] MEDS: INSULIN -REGULAR HUMAN 50 UNIT/0.5 ML ML SQ SCH ×3 (07:30→16:30)
[2020-10-03] MEDS: GLUCERNA SHAKE 237 ML CAN PO SCH (09:00)
[2020-10-03] MEDS: THIAMINE HCL 100 MG TABLET PO SCH (10:05)
[2020-10-03] MEDS: TOPIRAMATE 25 MG TAB PO SCH (10:06)
[2020-10-03] MEDS: CALCIUM CARBONATE 500 MG TAB PO SCH ×2 (10:06→13:00)
[2020-10-03] MEDS: QUETIAPINE 25 MG TAB PO SCH (10:06)
[2020-10-03] MEDS: PANTOPRAZOLE 40MG TABLET PO SCH (10:07)
[2020-10-03] MEDS: TAMSULOSIN 0.4 MG SR CAP PO SCH (10:07)
[2020-10-03] MEDS: ACYCLOVIR 400 MG TABLET PO SCH (10:07)
[2020-10-03] MEDS: FOLIC ACID 1 MG TABLET PO SCH (10:08)
[2020-10-03] MEDS: DULERA 100/5 (MOMETASONE/FORMOTEROL) INHALER IH SCH (10:08)
[2020-10-03] MEDS: LACTULOSE 20 GM/30 ML UCUP PO SCH ×2 (10:08→13:00)
--- NOTE | 2020-10-03 11:03 | P.PN ---
Subjective Date of Service: 10/04/20 Primary Care Provider: unknown Chief Complaint: Weakness Subjective: No new changes Reports no headache or SOB. Physical Examination - Vital Signs Temperature: 97.4 F Blood Pressure: 97/63 Pulse: 84 Respirations: 15 Pulse Ox (%): 99 - Physical Exam General: In no apparent distress HEENT: Atraumatic, Normocephalic Neck: Supple Respiratory: Clear to auscultation bilaterally Cardiovascular: Normal S1 S2 Gastrointestinal: Soft and benign, Non-distended Neurological: Other (No new focal deficits) Assessment And Plan - Plan # Oliguric JULIUS likely 2/2 ATN from prolonged prerenal, in the setting of NSAID use Improved No longer needing HD PTH sig elevated at 197, indicative of advanced CKD at least stage 4 at baseline; recheck PTH at some point HD last received on 09/18 No acute indication for HD Monitor renal panel, I&O Cont flomax # AMS, unclear etiology, ? HSV encephalitis AMS improved but mental status not back to baseline Received acyclovir # Htn BP stable Monitor # Dispo Awaiting dc to snf Physician Review: Patient Assessed, Agree with Above Assessment and Plan
[2020-10-03] MEDS: HYDROCODONE/APAP 10/325 TAB PO PRN (12:59)
--- NOTE | 2020-10-03 14:51 | P.PN ---
Date of Service: 10/02/20 Subjective Pt improving; no new complaints. Hgb stable. Review of Systems is unable to be obtained Physical Examination - Vital Signs Reviewed - Physical Exam General: More awake and alert. Following some commands. Restraints Dc during the daytime. Respiratory: Clear to auscultation bilaterally, Normal air movement Cardiovascular: Regular rate/rhythm, Normal S1 S2 Gastrointestinal: Normal bowel sounds, Soft and benign, Non-distended Musculoskeletal: No clubbing Neurological: Normal strength at 5/5 x4 extr, Sensation intact, Cranial nerves 3-12 intact Assessment & Plan - Problems (Diagnosis) (1) ESRD (end stage renal disease); new onset Current Visit: Yes Status: Acute (2) Altered mental status Current Visit: Yes Status: Acute (3) Viral Encephalitis Current Visit: Yes Status: Acute (4) Uremia encephalopathy Current Visit: Yes Status: Acute - Plan Plan: Continue with plan of care as mentioned below 1. No longer needing hemodialysis. Tessio catheter removed. 2. Continue IV hydration and monitor urine output closely; monitor urine output closely. Will Hep-Lock IV 3. Continue acyclovir for a total of 2-4 weeks 4. Monitor renal function closely as well as strict input and output 5. Discontinued restraints. Continuing monitoring neuro status closely. 6. Started Seroquel and will continue twice daily 7. GI and DVT prophylaxis
[2020-10-03] MEDS ORDERED: HYDROCORTISONE SUC 100 MG INJ IV ONE (15:28)
[2020-10-03] MEDS ORDERED: HYDROCORTISONE SUC 100 MG INJ IM ONE (15:46)
[2020-10-03] MEDS ORDERED: WATER FOR INJ,STERILE 10 ML IV SCH (16:00)
[2020-10-04 09:30] VITALS: BP 97/63; TEMP 97.4
--- NOTE | 2020-10-21 04:41 | P.DS ---
Discharge Date: 10/03/20 Primary Care Provider: unknown Disposition: TRANSFER TO SNF - REHAB Discharge Condition: GOOD Reason for Admission: Weakness Consultations: Nephrology General surgery Infectious disease - Problems (1) ESRD (end stage renal disease) Status: Acute (2) Altered mental status Status: Acute (3) Encephalitis Status: Acute (4) Uremia Status: Acute Brief History of Present Illness: 60 year old male with past medical history of HTN , DM , HLD as per EMS ( states he takes meds but she is unsure of what meds he takes and for what diagnosis , she recalls history of kidney stones and previously followed with Dr Hernandez) , brought by EMS after found him fall and on the floor , she is unable to tell how long he has been on the floor , she recalls he has been having increasing weakness since last 5 days , she is unsure if fever or chills . Patient on presentation is confused but reported better at time of evaluation . He is able to tell no history of kidney problems in the past but unaable to give more information On admission he was noted with elevated creatinine of 10.4 with potassium of 7.2 and serum bicarbonate low at 7. He is being admitted for JULIUS . Hospital Course: Patient had of prolonged hospitalization. It appear patient had a viral encephalitis. Patient was given antiviral therapy. IV hydration. Patient ended up going into renal failure. Patient required hemodialysis. Patient's clinical picture slowly started improving. Patient's renal function started resolving & did not require hemodialysis. Patient mentation also started improving. Patient's symptoms improved to the point where patient did not need any further treatment in the hospital. We will arrange for senior care facility placement. Patient was accepted. Patient will be discharged and will continue therapy at a senior care facility. At this time patient is stable for discharge home. Vital Signs/Physical Exam: Temp Pulse Resp BP Pulse Ox 97.4 F 84 15 97/63 99 10/04/20 09:30 10/04/20 09:30 10/04/20 09:30 10/04/20 09:30 10/04/20 09:30 General: Alert, In no apparent distress, Oriented x2 Laboratory Data at Discharge: WBC Cancelled 10/03/20 16:00 Hgb Cancelled 10/03/20 16:00 Hct Cancelled 10/03/20 16:00 Plt Count Cancelled 10/03/20 16:00 PT 10.7 SECONDS (9.5-12.5) 09/08/20 15:35 INR 0.93 09/08/20 15:35 APTT 26.0 SECONDS (24.3-36.9) 09/08/20 15:35 Sodium 140 mmol/L (136-145) 10/03/20 03:48 Potassium 3.7 mmol/L (3.5-5.1) 10/03/20 03:48 BUN 17 mg/dL (7-18) 10/03/20 03:48 Creatinine 1.70 mg/dL (0.55-1.3) H 10/03/20 03:48 Glucose 161 mg/dL (74-106) H 10/03/20 03:48 Uric Acid 5.7 mg/dL (3.5-7.2) 09/09/20 22:02 Phosphorus 3.2 mg/dL (2.5-4.9) 10/03/20 03:48 Magnesium 1.8 mg/dL (1.8-2.4) 09/27/20 04:40 Total Bilirubin 0.9 mg/dL (0.2-1.0) 09/12/20 04:40 AST 51 U/L (15-37) H 09/12/20 04:40 ALT 33 U/L (12-78) 09/12/20 04:40 Alkaline Phosphatase 88 U/L (45-117) 09/12/20 04:40 Troponin I 0.08 ng/mL (0.0-0.045) H 09/09/20 20:04 Lipase 307 U/L (73-393) 09/08/20 15:35 Home Medications: Cyclobenzaprine HCl [Flexeril] 5 mg PO BID 09/10/20 Diclofenac Na [Voltaren D.R] 75 mg PO DAILY 09/10/20 Erenumab-Aooe [Aimovig Autoinjector] 70 mg SQ SEECOM 09/10/20 Gabapentin [Neurontin] 800 mg PO TID 09/10/20 RX: Hydrocodone 10/APAP 325 [[place] 10/325*] 1 tab PO QID 09/10/20 RX: Meloxicam 15 mg PO DAILY 09/10/20 RX: Tamsulosin [Flomax*] 0.4 mg PO DAILY 09/10/20 RX: Topiramate [Topamax*] 50 mg PO DAILY 09/10/20 Tramadol HCl [Ultram] 50 mg PO TID 09/10/20 Ubrogepant [Ubrelvy] 100 mg PO PRN PRN 09/10/20 RX: Acyclovir Tab [Zovirax*] 400 mg PO DAILY #14 tablet 10/03/20 RX: Albuterol Inhaler [Ventolin Inhaler*] 2 puff IH Q6H PRN #1 hfa.aer.ad 10/03/20 RX: Calcium Carbonate [Oscal*] 1,000 mg PO TID #90 tab 10/03/20 RX: Folic Acid 1 mg PO DAILY #30 tablet 10/03/20 RX: Glucerna Shake [Glucerna*] 237 ml PO BID #0 can 10/03/20 RX: Midodrine HCl 10 mg PO BID #60 tablet 10/03/20 RX: Mometasone/Formoterol [Dulera 100 Mcg/5 Mcg Inhaler] 2 puff IH BID #0 inhaler 10/03/20 RX: Pantoprazole [Protonix Tab*] 40 mg PO BID tab 10/03/20 RX: Quetiapine [Seroquel*] 25 mg PO BID tab 10/03/20 RX: Thiamine HCl [Vitamin B-1*] 100 mg PO DAILY tablet 10/03/20 RX: predniSONE [Prednisone*] 20 mg PO DAILY #5 tab 10/03/20 New Medications: RX: Folic Acid 1 mg PO DAILY #30 tablet RX: Midodrine HCl 10 mg PO BID #60 tablet RX: Calcium Carbonate [Oscal*] 1,000 mg PO TID #90 tab RX: predniSONE [Prednisone*] 20 mg PO DAILY #5 tab RX: Albuterol Inhaler [Ventolin Inhaler*] 2 puff IH Q6H PRN #1 hfa.aer.ad PRN Reason: Shortness Of Breath RX: Acyclovir Tab [Zovirax*] 400 mg PO DAILY #14 tablet Physician Discharge Instructions: OK TO DC IV AND DC TO LONG TERM FOLLOW-UP WITH PRIMARY CARE PROVIDER IN 1-2 WEEKS FOLLOW-UP WITH Nephrology IN 1-2 WEEKS RETURN TO THE ER IF symptoms worsen CALL or TEXT DR. NIETO AT [phone] IF ANY QUESTIONS REGARDING HOSPITAL STAY. PLEASE CALL THE FLOOR AT [phone] IF ANY MEDICATION OR NURSING QUESTIONS. Diet: AHA Activity: Fall precautions Followup: NONE,NONE [Primary Care Provider] - Time spent managing pt's care (in minutes): 35
== END 2020-10-03 17:30 | DRG 673 ==
LOC: ER 15:08 → ERHOLD 17:39 → 2ND 09-09 16:37 → ERHOLD 09-10 23:25 → 4TH 09-24 05:41
PROVIDERS: ADMIT Internal Medicine; ATTEND Hospitalist
PROC: 5A09357 Assistance with Respiratory Ventilation, Less than 24 Consecutive Hours, Continuous Positive Airway Pressure (ICD-10-PCS; 2020-09-08)
PROC: 5A1D70Z Performance of Urinary Filtration, Intermittent, Less than 6 Hours Per Day (ICD-10-PCS; 2020-09-08)
PROC: 06HY33Z Insertion of Infusion Device into Lower Vein, Percutaneous Approach (ICD-10-PCS; 2020-09-08)
PROC: 02HV33Z Insertion of Infusion Device into Superior Vena Cava, Percutaneous Approach (ICD-10-PCS; 2020-09-13)
PROC: B5181ZA Fluoroscopy of Superior Vena Cava using Low Osmolar Contrast, Guidance (ICD-10-PCS; 2020-09-13)
PROC: 0JH63XZ Insertion of Tunneled Vascular Access Device into Chest Subcutaneous Tissue and Fascia, Percutaneous Approach (ICD-10-PCS; principal; 2020-09-13 15:30)
PROC: 009U3ZX Drainage of Spinal Canal, Percutaneous Approach, Diagnostic (ICD-10-PCS; 2020-09-15)
PROC: 0JH63XZ Insertion of Tunneled Vascular Access Device into Chest Subcutaneous Tissue and Fascia, Percutaneous Approach (ICD-10-PCS; 2020-09-16)
PROC: 02HV33Z Insertion of Infusion Device into Superior Vena Cava, Percutaneous Approach (ICD-10-PCS; 2020-09-16)
PROC: B5181ZA Fluoroscopy of Superior Vena Cava using Low Osmolar Contrast, Guidance (ICD-10-PCS; 2020-09-16)
PROC: 02PY33Z Removal of Infusion Device from Great Vessel, Percutaneous Approach (ICD-10-PCS; 2020-09-16)
PROC: 02PY33Z Removal of Infusion Device from Great Vessel, Percutaneous Approach (ICD-10-PCS; 2020-09-30)
DX: N17.0 Acute kidney failure with tubular necrosis (principal); G04.90 Encephalitis and encephalomyelitis, unspecified; G92 Toxic encephalopathy; A86 Unspecified viral encephalitis; M62.82 Rhabdomyolysis; E87.2 Acidosis; N39.0 Urinary tract infection, site not specified; E72.20 Disorder of urea cycle metabolism, unspecified; J44.1 Chronic obstructive pulmonary disease with (acute) exacerbation; E87.0 Hyperosmolality and hypernatremia; I12.0 Hypertensive chronic kidney disease with stage 5 chronic kidney disease or end stage renal disease; N18.6 End stage renal disease; E11.22 Type 2 diabetes mellitus with diabetic chronic kidney disease; E78.5 Hyperlipidemia, unspecified; I95.9 Hypotension, unspecified; E87.5 Hyperkalemia; E66.9 Obesity, unspecified; Z78.1 Physical restraint status; E88.09 Other disorders of plasma-protein metabolism, not elsewhere classified; D63.8 Anemia in other chronic diseases classified elsewhere; K72.90 Hepatic failure, unspecified without coma; R06.03 Acute respiratory distress; N40.0 Benign prostatic hyperplasia without lower urinary tract symptoms; D50.9 Iron deficiency anemia, unspecified; G43.909 Migraine, unspecified, not intractable, without status migrainosus; B19.20 Unspecified viral hepatitis C without hepatic coma; D72.829 Elevated white blood cell count, unspecified; F03.90 Unspecified dementia, unspecified severity, without behavioral disturbance, psychotic disturbance, mood disturbance, and anxiety; F41.8 Other specified anxiety disorders; E21.1 Secondary hyperparathyroidism, not elsewhere classified; K75.81 Nonalcoholic steatohepatitis (NASH); W18.30XA Fall on same level, unspecified, initial encounter; Z87.891 Personal history of nicotine dependence; Z68.34 Body mass index [BMI] 34.0-34.9, adult; Z20.822 Contact with and (suspected) exposure to COVID-19
CPT/HCPCS: 36415; 51702; 70450; 70551; 71045; 71250; 72125; 74150; 76000; 76705; 76770; 77003; 80048; 80053; 80069; 80076; 80307; 80320; 81003; 81015; 82010; 82140; 82550; 82553; 82565; 82607; 82652; 82728; 82746; 82805; 82945; 82947; 83036; 83540; 83605; 83690; 83735; 83880; 83970; 84100; 84132; 84145; 84157; 84425; 84443; 84466; 84484; 84550; 85025; 85027; 85610; 85730; 86021; 86038; 86160; 86317; 86430; 86592; 86704; 86706; 86803; 86850; 86900; 86901; 87015; 87040; 87070; 87086; 87088; 87116; 87206; 87340; 87522; 88300; 89050; 90935; 93005; 93306; 94640; 97110; 97112; 97116; 97161; 97530; 99285; C1752; J0133; J0360; J0610; J0692; J0696; J1100; J1200; J1644; J1720; J1815; J1940; J2250; J2310; J2370; J2405; J2543; J2704; J2916; J2920; J2930; J2997; J3010; J3370; J3411; J3475; J3480; J7030; J7040; J7050; J7120; J7512; J7605; J7606; P9047; U0003

== ENCOUNTER 2020-10-21 14:56 | Emergency (ER) | payer OTHER ==
--- OUTSIDE RECORDS SUMMARY | 2020-10-21 14:58 | XMS REPORT | Continuity of Care Document ---
:1960 Author Organization [facility] t Address [address] [place] [address] Dr. Silva. [address] [place] [address] Care Team Providers Name Role Phone Imelda [...] Department ID 2019-02-01 2019-02-01 Emergency Rafita Bui [facility] [id number] 16:31:58 22:14:00 Corey Lantigua [id number] [place] [id number] [place] [id number] Results This patient has no known results.
[2020-10-21 16:56] LABS: Basophils % 0.5 % (0-1.3); Hematocrit 27.3 % (39.6-49.0); MPV 8.8 fL (7.6-11.3)
[2020-10-21 17:10] LABS: Potassium 3.9 mmol/L (3.5-5.1)
[2020-10-21 17:24] LABS: Protime INR 1.1
--- NOTE | 2020-10-21 17:36 | EDPHYS ---
Physician Documentation [facility] Name: Trever Jay Age: 60 yrs Sex: Male : 1960 Arrival Date: 10/21/2020 Time: 14:56 Bed 13 Private MD: ED Physician Donny Camarillo HPI: 10/21 16:39 This 60 yrs old Male presents to ER via Wheelchair with complaints of sent by rn . 16:39 Reports just followed up with his Dr after 1.5 month long hospital admission, bloodwork rn ordered and told to come immediately to ER. Patient is doing much better than before, eating and drinking well, no longer on dialysis, no blood in stool, no vomiting/diarrhea. Reports was anemic during hospital stay but never required blood transfusion. Only complaint is fatigue today. . Onset: The symptoms/episode began/occurred at an unknown time. Severity of symptoms: At their worst the symptoms were mild in the emergency department the symptoms are unchanged. It is unknown whether or not the patient has had similar symptoms in the past. The patient has been recently seen by a physician:. Historical: - Allergies: 15:41 No Known Allergies; jd3 - PMHx: 15:41 Diabetes - NIDDM; Hepatitis; High Cholesterol; jd3 - PSHx: 15:41 Knee surgery; jd3 - Immunization history:: Adult Immunizations up to date. - Social history:: Smoking status: unknown. - Family history:: not pertinent. - Hospitalizations: : The patient was recently seen at [facility]. ROS: 16:39 Constitutional: Negative for fever, chills, and weight loss, Eyes: Negative for injury, rn pain, redness, and discharge, Neck: Negative for injury, pain, and swelling, Cardiovascular: Negative for chest pain, palpitations, and edema, Respiratory: Negative for shortness of breath, cough, wheezing, and pleuritic chest pain, Abdomen/GI: Negative for abdominal pain, nausea, vomiting, diarrhea, and constipation, Back: Negative for injury and pain, : Negative for injury, bleeding, discharge, and swelling, MS/Extremity: Negative for injury and deformity, Skin: Negative for injury, rash, and discoloration, Neuro: Negative for headache, weakness, numbness, tingling, and seizure. Exam: 16:39 Constitutional: This is a well developed, well nourished patient who is awake, alert, rn and in no acute distress. Head/Face: Normocephalic, atraumatic. Eyes: Periorbital areas with no swelling, redness, or edema. ENT: MMM Cardiovascular: Regular rate and rhythm. No pulse deficits. Respiratory: No increased work of breathing, no retractions or nasal flaring. Abdomen/GI: soft, non-tender Skin: Warm, dry, no cyanosis MS/ Extremity: Pulses equal, no cyanosis. Neurovascular intact. Full, normal range of motion. Equal circumference. Neuro: Awake and alert, GCS 15, oriented to person, place, time, and situation. Cranial nerves II-XII grossly intact. Motor strength 4/5 in all extremities. Sensory grossly intact. Vital Signs: 15:42 BP 105 / 78; Pulse 92; Resp 16 S; Temp 98.5(TE); Pulse Ox 99% on R/A; Weight 72.57 kg jd3 (R); Height 5 ft. 1 in. (154.94 cm) (R); Pain 8/10; 16:45 BP 120 / 72; Pulse 85; Resp 16; Pulse Ox 98% on R/A; Pain 8/10; kg 17:38 BP 106 / 55; Pulse 89; Resp 16; Pulse Ox 100% on R/A; kg 15:42 Body Mass Index 30.23 (72.57 kg, 154.94 cm) jd3 MDM: 16:09 Patient medically screened. rn 17:32 Differential Diagnosis anemia, malaise, incorrect labs. Data reviewed: vital signs, rn nurses notes, old medical records, lab test result(s), and as a result, I will discharge patient. Counseling: I had a detailed discussion with the patient and/or guardian regarding: the historical points, exam findings, and any diagnostic results supporting the discharge/admit diagnosis, lab results, the need for outpatient follow up, to return to the emergency department if symptoms worsen or persist or if there are any questions or concerns that arise at home. Response to treatment: the patient's symptoms have mildly improved after treatment, and as a result, I will discharge patient. Special discussion: I discussed with the patient/guardian in detail that at this point there is no indication for admission to the hospital. It is understood, however, that if the symptoms persist or worsen the patient needs to return immediately for re-evaluation. ED course: Upon rechecking h/h in ER, is 8.8, much closer to his recent baseline in hospital, and in absence of GI bleed or trauma which he denies, much more believable. Pt still denies any symptoms other than fatigue. 8.8 likely concentrated for him and perhaps a little dry. States feels ok and wants to go home. In his wheelchair and trying to race out of ER.. 10/21 16:24 Order name: CBC with Diff; Complete Time: 17:29 rn 10/21 16:24 Order name: Basic Metabolic Panel; Complete Time: 17:29 rn 10/21 16:24 Order name: Protime (+inr) rn 10/21 16:24 Order name: Ptt, Activated rn 10/21 16:24 Order name: Type And Screen rn 10/21 16:49 Order name: Bb Add On bd 10/21 16:24 Order name: IV Start; Complete Time: 16:44 rn Administered Medications: No medications were administered Disposition: 10/21/20 17:35 Discharged to Home. Impression: Anemia, unspecified, Malaise and fatigue. - Condition is Stable. - Discharge Instructions: Anemia, Nonspecific, Fatigue. - Medication Reconciliation Form, Thank You Letter, Antibiotic Education, Prescription Opioid Use form. - Follow up: Private Physician; When: 2 - 3 days; Reason: Recheck today's complaints, Re-evaluation by your physician. - Problem is an ongoing problem. - Symptoms are unchanged. Signatures: Dispatcher [employer] EDDonny Shelby MD MD rn Davies, Jonathon, RN RN jBere Hinojosa kg Corrections: (The following items were deleted from the chart) 17:40 17:35 10/21/2020 17:35 Discharged to Home. Impression: Anemia, unspecified; Malaise and kg fatigue. Condition is Stable. Forms are Medication Reconciliation Form, Thank You Letter, Antibiotic Education, Prescription Opioid Use. Follow up: Private Physician; When: 2 - 3 days; Reason: Recheck today's complaints, Re-evaluation by your physician. Problem is an ongoing problem. Symptoms are unchanged. rn
--- NOTE | 2020-10-21 17:36 | ER ---
Nurse's Notes [facility] Name: Trever Jay Age: 60 yrs Sex: Male : 1960 Arrival Date: 10/21/2020 Time: 14:56 Bed 13 Private MD: Diagnosis: Anemia, unspecified;Malaise and fatigue Presentation: 10/21 15:39 Chief complaint: Spouse and/or significant other states: "His doctor, at Dr. Kohler jd3 office, told him to come to the ER immediately after receiving his blood work.". Coronavirus screen: At this time, the client does not indicate any symptoms associated with coronavirus-19. Ebola Screen: Patient negative for fever greater than or equal to 101.5 degrees Fahrenheit, and additional compatible Ebola Virus Disease symptoms. Initial Sepsis Screen: Does the patient meet any 2 criteria? No. Patient's initial sepsis screen is negative. Does the patient have a suspected source of infection? No. Patient's initial sepsis screen is negative. Risk Assessment: Do you want to hurt yourself or someone else? Patient reports no desire to harm self or others. Onset of symptoms was October 21, 2020. 15:39 Method Of Arrival: Wheelchair jd3 15:39 Acuity: ANAMARIA 3 jd3 Historical: - Allergies: 15:41 No Known Allergies; jd3 - PMHx: 15:41 Diabetes - NIDDM; Hepatitis; High Cholesterol; jd3 - PSHx: 15:41 Knee surgery; jd3 - Immunization history:: Adult Immunizations up to date. - Social history:: Smoking status: unknown. - Family history:: not pertinent. - Hospitalizations: : The patient was [facility] at [facility]. Screenin:47 Abuse screen: Denies threats or abuse. Nutritional screening: No deficits noted. kg Tuberculosis screening: No symptoms or risk factors identified. Fall Risk Fall in past 12 months (25 points). Secondary diagnosis (15 points) impaired mobility, IV access (20 points). Ambulatory Aid- Crutches/Cane/Walker (15 pts). Gait- Impaired (20 pts.). Mental Status- Oriented to own ability (0 pts). Total Avalos Fall Scale indicates High Risk Score (45 or more points). Fall prevention measures have been instituted. Side Rails Up X 2 Placed Close to Nursing Station Frequent Obs/Assessments Occuring Family Present and informed to notify staff if the need to leave the bedside As available patient and family educated on Fall Prevention Program and Strategies. Assessment: 16:51 General: Appears in no apparent distress. Behavior is calm, cooperative, appropriate kg for age, quiet. Pain: Complains of pain in head, chest, abdomen, pelvis, right arm, left arm, right leg, left leg, back of head, back of left arm, back of right arm, posterior chest, buttocks, back of left leg, back of right leg and back Pain currently is 8 out of 10 on a pain scale. at worst was 10 out of 10 on a pain scale. level that patient reports is acceptable is 5 out of 10 on a pain scale. Quality of pain is described as aching. Neuro: No deficits noted. Level of Consciousness is awake, alert, obeys commands, Oriented to person, place, time, situation. Cardiovascular: No deficits noted. Heart tones S1 S2. Respiratory: No deficits noted. GI: No deficits noted. : No deficits noted. EENT: No deficits noted. Derm: No deficits noted. Musculoskeletal: Reports weakness in chest, abdomen, pelvis, right arm, left arm, right leg, left leg, back of head, back of left arm, back of right arm, posterior chest, buttocks, back of left leg, back of right leg and back. Vital Signs: 15:42 BP 105 / 78; Pulse 92; Resp 16 S; Temp 98.5(TE); Pulse Ox 99% on R/A; Weight 72.57 kg jd3 (R); Height 5 ft. 1 in. (154.94 cm) (R); Pain 8/10; 16:45 BP 120 / 72; Pulse 85; Resp 16; Pulse Ox 98% on R/A; Pain 8/10; kg 17:38 BP 106 / 55; Pulse 89; Resp 16; Pulse Ox 100% on R/A; kg 15:42 Body Mass Index 30.23 (72.57 kg, 154.94 cm) jd3 ED Course: 14:56 Patient arrived in ED. as 15:41 Triage completed. jd3 15:43 Arm band placed on. jd3 16:09 Donny Camarillo MD is Attending Physician. rn 16:20 Inserted saline lock: 20 gauge in right antecubital area, using aseptic technique. kg 16:27 Bere Mauricio is Primary Nurse. kg 16:44 CBC with Diff Sent. kg 16:44 Basic Metabolic Panel Sent. kg 16:44 Ptt, Activated Sent. kg 16:44 Protime (+inr) Sent. kg 16:44 Type And Screen Sent. kg 16:52 Patient has correct armband on for positive identification. Bed in low position. Call kg light in reach. Side rails up X 1. 17:39 No provider procedures requiring assistance completed. IV discontinued, intact, kg bleeding controlled, No redness/swelling at site. Pressure dressing applied. Administered Medications: No medications were administered Outcome: 17:35 Discharge ordered by MD. rn 17:40 Discharged to home via wheelchair. kg 17:40 Condition: stable 17:40 Discharge instructions given to patient, family, Instructed on discharge instructions, follow up and referral plans. Demonstrated understanding of instructions, follow-up care. 17:40 Patient left the ED. kg Signatures: Nichelle Parra Roman, MD MD rn Davies, Jonathon, RN RN jd3 Bere Mauricio kg Corrections: (The following items were deleted from the chart) 15:43 15:42 Pulse 92bpm; Resp 16bpm; Spontaneous; Pulse Ox 99% RA; Temp 98.5F Temporal; 72.57 jd3 kg Reported; Height 5 ft. 1 in. Reported; BMI: 30.2; Pain 8/10; jd3 16:47 16:46 Inserted saline lock: 20 gauge in right antecubital area, using aseptic kg technique. kg
[2020-10-21 17:51] VITALS: TEMP 98.5
[2020-10-21 17:54] VITALS: BP 106/55; O2SAT 100
== END 2020-10-21 17:40 | disposition home or self-care (01) ==
LOC: ER 14:56
DX: D64.9 Anemia, unspecified (principal); R53.81 Other malaise; E11.9 Type 2 diabetes mellitus without complications
CPT/HCPCS: 36415; 80048; 85025; 85610; 85730; 86850; 86900; 86901; 99283

== ENCOUNTER 2020-11-26 19:52 | Inpatient (IN) | payer OTHER ==
--- OUTSIDE RECORDS SUMMARY | 2020-11-26 19:55 | XMS REPORT | Continuity of Care Document ---
:1960 Author Organization [facility] t Address [address] [place] [address] Dr. Silva. [address] [place] [address] Care Team Providers Name Role Phone Imelda [...] Department ID 2019-02-01 2019-02-01 Emergency Rafita Bui [facility] [id number] 16:31:58 22:14:00 Corey Lantigua [id number] [place] [id number] [place] [phone] [id number] Results This patient has no known results.
[2020-11-26] MEDS ORDERED: NA CHLORIDE 0.9% 500 ML ONE ×2 (20:24→20:38)
[2020-11-26 20:35] LABS: Absolute Lymphocytes (CBC) 0.3 K/uL (0.7-4.9); Basophils % 0.1 % (0-1.3); Hematocrit 36.9 % (39.6-49.0); Lymphocytes % 3.4 % (15.3-44.8); MPV 8.7 fL (7.6-11.3); RBC Red Blood Cell Count 3.81 M/uL (4.33-5.43)
--- NOTE | 2020-11-26 20:54 | RAD REPORT ---
EXAM DESCRIPTION: Juliann Single View11/26/2020 8:31 pm CLINICAL HISTORY: Chest pain COMPARISON: September 2020 FINDINGS: Mild patchy right lung opacities. Left lung appears clear. The heart is normal size IMPRESSION: Mild patchy right lung opacities probably pneumonia
[2020-11-26 21:10] LABS: Albumin 3.6 g/dL (3.4-5.0); Bilirubin Direct 0.2 mg/dL (0-0.2); Bilirubin Total 0.5 mg/dL (0.2-1.0); Protein, Total 8.2 g/dL (6.4-8.2)
[2020-11-26 21:12] LABS: Potassium 5.9 mmol/L (3.5-5.1)
[2020-11-26 21:13] LABS: Blood Morphology Comment NOT SEEN (NOT SEEN); Platelet Estimate ADEQ
[2020-11-26] MEDS ORDERED: INSULIN -REGULAR HUMAN 50 UNIT/0.5 ML ML ONE (21:53)
[2020-11-26] MEDS ORDERED: AZITHROMYCIN 500 MG INJ IVPB ONE (21:53)
[2020-11-26] MEDS ORDERED: CEFTRIAXONE 1000 MG/VIAL ONE (21:53)
[2020-11-26] MEDS ORDERED: NA CHLORIDE 0.9% 250 ML ONE (21:54)
[2020-11-26] MEDS ORDERED: SOD POLYSTYREN SUL 15 GM/60 ML UCUP ONE (21:54)
[2020-11-26] MEDS ORDERED: Ringers Lactate 1,000 ML IV ONE (21:54)
[2020-11-26] MEDS ORDERED: D50W 25 GM/50 ML SYRINGE IV ONE (21:55)
[2020-11-26] MEDS ORDERED: NA CHLORIDE 0.9% 50 ML ONE (21:55)
[2020-11-26 22:04] LABS: Urine Blood Trace-intact (Negative); Urine Glucose Trace (Negative); Urine Protein 1+ (Negative); Urine Specific Gravity 1.025 (1.005-1.030); Urine pH 5.5 (5.0-7.0)
--- NOTE | 2020-11-26 22:21 | ER ---
Nurse's Notes [facility] Name: Trever Jay Age: 60 yrs Sex: Male : 1960 Arrival Date: 11/26/2020 Time: 19:55 Bed 2 Private MD: Diagnosis: Pneumonia, unspecified organism;Acute kidney failure;Acidosis;Hyperkalemia Presentation: 11/26 19:57 Chief complaint: EMS states: they were toned out for report of pt with weakness. bb Coronavirus screen: diarrhea, vomiting. Client presents with at least one sign or symptom that may indicate coronavirus-19. Standard/surgical mask placed on the client. Ebola Screen: No symptoms or risks identified at this time. Initial Sepsis Screen: Does the patient meet any 2 criteria? Altered Mental Status. HR > 90 bpm. Yes Does the patient have a suspected source of infection? No. Patient's initial sepsis screen is negative. Risk Assessment: Do you want to hurt yourself or someone else? Patient reports no desire to harm self or others. Onset of symptoms was November 26, 2020. 19:57 [facility] 19:57 Acuity: ANAMARIA 2 bb Historical: - Allergies: 20:00 Unable to obtain; bb - Home Meds: 20:00 Unable to obtain [Active]; bb - PMHx: 20:00 Diabetes - NIDDM; Hepatitis; High Cholesterol; bb - PSHx: 20:00 Knee surgery; bb - Immunization history:: Adult Immunizations unknown. - Social history:: Smoking status: unknown. - Family history:: not pertinent. - Hospitalizations: : No recent hospitalization is reported. Screenin:07 Abuse screen: Denies threats or abuse. Nutritional screening: No deficits noted. ea Tuberculosis screening: No symptoms or risk factors identified. Fall Risk None identified. Assessment: 20:06 General: Appears in no apparent distress. Behavior is calm, cooperative, appropriate ea for age. Pain: Complains of pain in back. Neuro: Level of Consciousness is obeys commands, Oriented to person, place. Respiratory: Airway is patent Respiratory effort is even, unlabored, Respiratory pattern is regular. Derm: Skin is pink, warm \T\ dry. 21:00 Reassessment: Patient appears in no apparent distress at this time. No changes from ad5 previously documented assessment. Patient and/or family updated on plan of care and expected duration. Pain level reassessed. 22:00 Reassessment: Patient appears in no apparent distress at this time. No changes from ad5 previously documented assessment. Patient and/or family updated on plan of care and expected duration. Pain level reassessed. 23:00 Reassessment: Patient appears in no apparent distress at this time. Pt resting ad5 comfortably in stretcher with S.O. at bedside. Resp with ease. Bed remains low and locked, bedrails x 2, call light within reach. Will continue to monitor. 11/27 00:57 Reassessment: Patient appears in no apparent distress at this time. No changes from ad5 previously documented assessment. Vital Signs: 11/26 19:57 BP 132 / 77; Pulse 113; Resp 18 S; Temp 99.7(A); Pulse Ox 98% on R/A; Weight 61.23 kg bb (R); Height 5 ft. 6 in. (167.64 cm) (R); 20:00 BP 128 / 76; Pulse 108; Resp 20; Pulse Ox 99% on R/A; ad5 21:00 BP 144 / 82; Pulse 110; Resp 20 S; Pulse Ox 99% on R/A; ad5 22:00 BP 116 / 80; Pulse 114; Resp 20 S; Pulse Ox 99% on R/A; ad5 23:30 BP 99 / 69; Pulse 106; Resp 16 S; Pulse Ox 100% on R/A; ad5 11/27 00:57 BP 121 / 61; Pulse 114; Resp 20 S; Pulse Ox 97% ; ad5 11/26 19:57 Body Mass Index 21.79 (61.23 kg, 167.64 cm) bb ED Course: 11/26 19:55 Patient arrived in ED. rn 19:55 Donny Camarillo MD is Attending Physician. rn 19:59 Triage completed. bb 20:00 Arm band placed on Patient placed in an exam room, on a stretcher, on pulse oximetry. bb 20:02 Fco Hunter is Primary Nurse. ad5 20:07 Patient has correct armband on for positive identification. Bed in low position. Call ea light in reach. 20:30 Inserted saline lock: 20 gauge in right forearm, using aseptic technique. Blood oe collected. 20:31 XRAY Chest (1 view) In Process Unspecified. EDMS 21:12 Notified ED physician of a critical lab result(s). Potassium of 5.9, CO2 13, Creatinine bb of 5.55. Dr Camarillo notified. 21:44 CT Head Brain wo Cont In Process Unspecified. EDMS 21:50 CT Abd/Pelvis - Without Contrast In Process Unspecified. EDMS 22:11 Inserted saline lock: 20 gauge in right antecubital area, using aseptic technique. ad5 22:20 Any Gudino MD is Hospitalizing Provider. rn 11/27 00:57 No provider procedures requiring assistance completed. Patient admitted, IV remains in ea place. Administered Medications: 11/26 20:30 Drug: NS 0.9% 500 ml Route: IV; Rate: bolus; Site: right forearm; ad5 22:23 Follow up: IV Status: Completed infusion; IV Intake: 500ml ad5 22:00 Drug: D50W 50 ml Route: IVP; Site: right forearm; ad5 22:22 Follow up: Response: No adverse reaction ad5 22:03 Drug: Insulin Regular Human 5 units {Co-Signature: ea (Lamar Leon RN).} Route: IVP; ad5 Site: right forearm; 22:23 Follow up: Response: No adverse reaction ad5 22:04 Drug: Sodium Bicarbonate 1 amp Route: IVP; Site: right antecubital; ad5 22:22 Follow up: Response: No adverse reaction ad5 22:05 Drug: Rocephin (cefTRIAXone) 1 grams Route: IV; Rate: calculated rate; Site: right ad5 forearm; 22:23 Follow up: IV Status: Completed infusion ad5 22:05 Drug: Sodium Bicarbonate 1 amp Route: IVP; Site: right antecubital; ad5 22:22 Follow up: Response: No adverse reaction ad5 22:08 Drug: NS 0.9% 1000 ml Route: IV; Rate: 1000 ml; Site: right forearm; ad5 23:09 Follow up: IV Status: Completed infusion; IV Intake: 1000ml ad5 22:10 Drug: Lactated Ringers Solution 1000 ml Route: IV; Rate: 150 ml/hr; Site: right ad5 antecubital; 22:11 Drug: Zithromax (azithromycin) 500 mg Route: IVPB; Infused Over: 1 hrs; Site: right ad5 forearm; 23:09 Follow up: IV Status: Completed infusion; IV Intake: 250ml ad5 22:11 Not Given (Patient Refused): Kayexalate (polystyrene) 30 grams PO once ad5 Intake: 22:23 IV: 500ml; Total: 500ml. ad5 23:09 IV: 1000ml; Total: 1500ml. ad5 23:09 IV: 250ml; Total: 1750ml. ad5 Outcome: 22:21 Decision to Hospitalize by Provider. saroj 11/27 00:57 Admitted to ICU accompanied by nurse, room icu 10, with chart, Report called to ea Receiving nurse Condition: stable Instructed on the need for admit, Demonstrated understanding of instructions. 01:26 Patient left the ED. ea Signatures: Dispatcher [employer] EDMS Isi Velasquez RN RN bb Nieto, Roman, MD MD rn Espinosa, Orlando oe Antunez, Elena, RN RN ea Davidson, Andrea ad5 Elena Antunez RN ea Corrections: (The following items were deleted from the chart) 11/26 22:36 22:08 CORONAVIRUS+MR.LAB.BISHOP drawn and sent. ad5 EDMS
--- NOTE | 2020-11-26 22:21 | EDPHYS ---
Physician Documentation [facility] Name: Trever Jay Age: 60 yrs Sex: Male : 1960 Arrival Date: 11/26/2020 Time: 19:55 Bed 2 Private MD: ED Physician Donny Camarillo HPI: 11/26 19:59 This 60 yrs old Male presents to ER via Unassigned with complaints of AMS, rn pain all over, abd pain. 19:59 The patient presents with confusion, disorientation. Onset: The symptoms/episode rn began/occurred at an unknown time. Possible causes: unknown. Associated signs and symptoms: Pertinent positives: abdominal pain, dizziness, lightheadedness, nausea, vomiting, Pertinent negatives: chest pain, seizure, shortness of breath. Current symptoms: In the emergency department the patient's symptoms have improved. The patient has experienced similar episodes in the past. The patient has not recently seen a physician. Per EMS, called out for AMS and lethargy, unknown onset, patient reports not eating/drinking for days, wouldn't allow EMS to obtain glucose or IV, patient reports pain all over that is chronic, not able to take his pain medications because of nausea/vomiting. + diarrhea. . Historical: - Allergies: 20:00 Unable to obtain; bb - Home Meds: 20:00 Unable to obtain [Active]; bb - PMHx: 20:00 Diabetes - NIDDM; Hepatitis; High Cholesterol; bb - PSHx: 20:00 Knee surgery; bb - Immunization history:: Adult Immunizations unknown. - Social history:: Smoking status: unknown. - Family history:: not pertinent. - Hospitalizations: : No recent hospitalization is reported. ROS: 19:59 Constitutional: Negative for fever, chills, and weight loss, Eyes: Negative for injury, rn pain, redness, and discharge, Neck: Negative for injury, pain, and swelling, Cardiovascular: Negative for chest pain, palpitations, and edema, Respiratory: Negative for shortness of breath, cough, wheezing, and pleuritic chest pain, Abdomen/GI: + abd pain/nausea/vomiting/diarrhea Back: + chronic back pain : Negative for injury, bleeding, discharge, and swelling, MS/Extremity: Negative for injury and deformity, Skin: Negative for injury, rash, and discoloration, Neuro: Negative for headache, numbness, tingling, and seizure. Exam: 19:59 Constitutional: This is a well developed, well nourished patient who is awake, alert, rn and in no acute distress. Making jokes. Head/Face: Normocephalic, atraumatic. ENT: dry MM Neck: Supple, full range of motion without nuchal rigidity, or vertebral point tenderness. No Meningismus. Cardiovascular: Tachycardic, irregular Respiratory: No increased work of breathing, no retractions or nasal flaring. Abdomen/GI: soft, + periumbilical tenderness, no rebound or peritoneal signs. Skin: Warm, dry MS/ Extremity: Pulses equal, no cyanosis. Neuro: Awake and alert, GCS 15, oriented to person, place, and situation, not time. Motor strength 4/5 in all extremities. Sensory grossly intact. Vital Signs: 19:57 BP 132 / 77; Pulse 113; Resp 18 S; Temp 99.7(A); Pulse Ox 98% on R/A; Weight 61.23 kg bb (R); Height 5 ft. 6 in. (167.64 cm) (R); 20:00 BP 128 / 76; Pulse 108; Resp 20; Pulse Ox 99% on R/A; ad5 21:00 BP 144 / 82; Pulse 110; Resp 20 S; Pulse Ox 99% on R/A; ad5 22:00 BP 116 / 80; Pulse 114; Resp 20 S; Pulse Ox 99% on R/A; ad5 23:30 BP 99 / 69; Pulse 106; Resp 16 S; Pulse Ox 100% on R/A; ad5 11/27 00:57 BP 121 / 61; Pulse 114; Resp 20 S; Pulse Ox 97% ; ad5 11/26 19:57 Body Mass Index 21.79 (61.23 kg, 167.64 cm) bb MDM: 11/26 19:55 Patient medically screened. rn 22:17 Differential Diagnosis: electrolyte abnormality, hypoglycemia, pneumonia, sepsis, UTI, rn volume depletion, acute kidney failure. Data reviewed: vital signs, nurses notes, lab test result(s), radiologic studies, CT scan, plain films, and as a result, I will admit patient. Counseling: I had a detailed discussion with the patient and/or guardian regarding: the historical points, exam findings, and any diagnostic results supporting the discharge/admit diagnosis, lab results, radiology results, the need for further work-up and treatment in the hospital. Response to treatment: the patient's symptoms have mildly improved after treatment, and as a result, I will admit patient. Admission orders: after a detailed discussion of the patient's condition and case, the admit orders are written by me. ED course: Pt with no acute findings on ct head or abdomen to explain vomiting and diarrhea, + pneumonia, + acute kidney failure with acidosis and hyperkalemia, not as bad as last time, will give IV fluids, sodium bicarb, kayexalate, and abx. Admitted to hospitalist service. . 11/26 19:58 Order name: Basic Metabolic Panel 11/26 19:58 Order name: CBC with Diff; Complete Time: 21:29 11/26 19:58 Order name: Hepatic Function; Complete Time: 21:12 11/26 19:58 Order name: Lipase; Complete Time: 21:12 11/26 19:58 Order name: Urine Culture 11/26 19:58 Order name: Urine Microscopic Only 11/26 19:58 Order name: Blood Culture Adult (2) 11/26 19:58 Order name: Procalcitonin; Complete Time: 21:29 11/26 19:58 Order name: Lactate; Complete Time: 21:12 11/26 19:58 Order name: AMMONIA; Complete Time: 21:12 11/26 19:59 Order name: Basic Metabolic Panel; Complete Time: 21:12 [facility] 11/26 20:42 Order name: Manual Differential; Complete Time: 21:29 [facility] 11/26 22:04 Order name: Urine Dipstick-Ancillary; Complete Time: 22:14 [facility] 11/26 19:58 Order name: CT Abd/Pelvis - Without Contrast 11/26 19:58 Order name: CT Head Brain wo Cont rn 11/26 19:58 Order name: EKG; Complete Time: 19:59 11/26 19:58 Order name: XRAY Chest (1 view); Complete Time: 21:12 11/26 23:31 Order name: SARS-COV-[address] [facility] 11/26 19:58 Order name: IV Saline Lock; Complete Time: 22:24 11/26 19:58 Order name: Labs collected and sent; Complete Time: 22:24 rn 11/26 19:58 Order name: Urine Dipstick-Ancillary (obtain specimen) rn 11/26 19:58 Order name: EKG - Nurse/Tech; Complete Time: 20:39 rn 11/26 19:58 Order name: Glucose Level rn 11/26 23:57 Order name: CONS Physician Consult EDMS Administered Medications: 20:30 Drug: NS 0.9% 500 ml Route: IV; Rate: bolus; Site: right forearm; ad5 22:23 Follow up: IV Status: Completed infusion; IV Intake: 500ml ad5 22:00 Drug: D50W 50 ml Route: IVP; Site: right forearm; ad5 22:22 Follow up: Response: No adverse reaction ad5 22:03 Drug: Insulin Regular Human 5 units {Co-Signature: alessio (Lamar Leon RN).} Route: IVP; ad5 Site: right forearm; 22:23 Follow up: Response: No adverse reaction ad5 22:04 Drug: Sodium Bicarbonate 1 amp Route: IVP; Site: right antecubital; ad5 22:22 Follow up: Response: No adverse reaction ad5 22:05 Drug: Rocephin (cefTRIAXone) 1 grams Route: IV; Rate: calculated rate; Site: right ad5 forearm; 22:23 Follow up: IV Status: Completed infusion ad5 22:05 Drug: Sodium Bicarbonate 1 amp Route: IVP; Site: right antecubital; ad5 22:22 Follow up: Response: No adverse reaction ad5 22:08 Drug: NS 0.9% 1000 ml Route: IV; Rate: 1000 ml; Site: right forearm; ad5 23:09 Follow up: IV Status: Completed infusion; IV Intake: 1000ml ad5 22:10 Drug: Lactated Ringers Solution 1000 ml Route: IV; Rate: 150 ml/hr; Site: right ad5 antecubital; 22:11 Drug: Zithromax (azithromycin) 500 mg Route: IVPB; Infused Over: 1 hrs; Site: right ad5 forearm; 23:09 Follow up: IV Status: Completed infusion; IV Intake: 250ml ad5 22:11 Not Given (Patient Refused): Kayexalate (polystyrene) 30 grams PO once ad5 Disposition: 22:21 Critical Care:. rn Disposition: 11/26/20 22:21 Hospitalization ordered by Any Gudino for Inpatient Admission. Preliminary diagnosis are Pneumonia, unspecified organism, Acute kidney failure, Acidosis, Hyperkalemia. - Bed requested for Intensive Care Unit. - Status is Inpatient Admission. ea - Condition is Fair. - Problem is new. - Symptoms have improved. Critical care time excluding procedures: 22:21 Critical care time: Bedside Care: 25 minutes, Consultation: 5 minutes. Total time: 30 rn minutes Signatures: Dispatcher [employer] EDND Isi Velasquez RN RN bb Nieto, Roman, MD MD rn Garcia, Cindy, RN RN cg Antunez, Elena, RN RN ea Davidson, Andrea ad5 Elena Antunez RN ea Corrections: (The following items were deleted from the chart) 21:15 20:00 Abdomen Pelvis W Con+CT.RAD.BRZ ordered. EDND EDND 22:36 21:57 CORONAVIRUS+MR.LAB.BRZ ordered. EDND EDMS 11/27 00:13 11/26 22:21 Hospitalization Ordered by Any Gudino MD for Inpatient Admission. cg Preliminary diagnosis is Pneumonia, unspecified organism; Acute kidney failure; Acidosis; Hyperkalemia. Bed requested for Intensive Care Unit. Status is Inpatient Admission. Condition is Fair. Problem is new. Symptoms have improved. rn 11/27 01:26 00:13 11/26/2020 22:21 Hospitalization Ordered by Any Gudino MD for Inpatient ea Admission. Preliminary diagnosis is Pneumonia, unspecified organism; Acute kidney failure; Acidosis; Hyperkalemia. Bed requested for Intensive Care Unit. Status is Inpatient Admission. Condition is Fair. Problem is new. Symptoms have improved.
[2020-11-26 23:15] LABS: Urine Bacteria <20 /HPF (NONE SEEN); Urine RBC <5 /HPF (NONE SEEN)
--- NOTE | 2020-11-27 01:12 | P.HP ---
Certification for Inpatient Patient admitted to: Inpatient With expected LOS: >2 Midnights Patient will require the following post-hospital care: Custodial Practitioner: I am a practitioner with admitting privileges, knowledge of patient current condition, hospital course, and medical plan of care. Services: Services provided to patient in accordance with Admission requirements found in Title 42 Section 412.3 of the Code of Federal Regulations <Сергей Gresham - Last Filed: 11/27/20 01:07> Patient History Date of Service: 11/27/20 Primary Care Provider: Kohler Reason for admission: PNA, JULIUS History of Present Illness: Mr. Jay is a 60 yo M with HTN, DM, HLD, Hepatitis C here today after 6 days of vomiting, diarrhea, anorexia. says he became incoherent today and asked to go to the ED. Reports night sweats and chills, intermittent SOB. Denies coughing, wheezing. Unable to keep solids or liquids down. She says he has been weak as well. He was admitted for a long stay in 08/2020 with diagnosis of viral encephalitis and acute renal failure which resolved so he was then discharged to SNF, returned home after 5 days. CXR shows right lobe pneumonia. K 5.9. HCO3 13. BUN 49, Cr 5.55, GFR 10. - Past Medical/Surgical History Diabetic: Yes -: HTN -: DM -: HLD -: hepatitis c -: knee replacement Psychosocial/ Personal History: - Family History Family History: Reviewed- Non-Contributory - Social History Smoking Status: Former smoker Alcohol use: No CD- Drugs: No Caffeine use: No Place of Residence: Home <Сергей Gresham Sarmad - Last Filed: 11/27/20 01:07> Date of Service: 11/27/20 <Any Gudino - Last Filed: 11/29/20 03:34> Allergies metformin Allergy (Verified 09/12/20 01:06) Shortness of breath Home Medications: Gabapentin [Neurontin] 800 mg PO TID 09/10/20 Hydrocodone 10/APAP 325 [Bucklin 10/325*] 1 tab PO QID 09/10/20 Meloxicam 15 mg PO DAILY 09/10/20 Topiramate [Topamax*] 50 mg PO DAILY 09/10/20 Tramadol HCl [Ultram] 50 mg PO TID 09/10/20 Citalopram [Celexa] 40 mg PO DAILY 11/28/20 Lovastatin [Altoprev] 40 mg PO 1700 11/28/20 Metformin ER [Glucophage ER] 500 mg PO DAILY 11/28/20 Pantoprazole [Protonix Tab*] 40 mg PO DAILY 11/28/20 Sitagliptin Phos/Metformin HCl [Janumet Xr 50-1,000 mg Tablet] 1 tab PO DAILY 11/28/20 Tamsulosin [Flomax] 0.4 mg PO BEDTIME 11/28/20 buPROPion HCL [Bupropion HCl Sr] 150 mg PO BID 11/28/20 Review of Systems 10-point ROS is otherwise unremarkable General: Chills, Sweats, Weakness, Malaise Respiratory: Shortness of Breath Gastrointestinal: Nausea, Vomiting, Diarrhea <Сергей Gresham - Last Filed: 11/27/20 01:07> Physical Examination - Physical Exam General: Alert, In no apparent distress, Confused HEENT: Atraumatic, PERRLA, Mucous membr. moist/pink, EOMI, Sclerae nonicteric Neck: Supple, 2+ carotid pulse no bruit, No LAD, Without JVD or thyroid abnormality Respiratory: Normal air movement, Rhonchi/gurgles Cardiovascular: Regular rate/rhythm, Normal S1 S2 Gastrointestinal: Normal bowel sounds, No tenderness Musculoskeletal: No tenderness Integumentary: No rashes Neurological: Normal strength at 5/5 x4 extr, Normal tone, Sensation intact, Cranial nerves 3-12 intact, Abnormal affect Lymphatics: No axilla or inguinal lymphadenopathy - Studies Laboratory Data (last 24 hrs) 11/26/20 20:20: WBC 9.70, Hgb 11.9 L, Hct 36.9 L, Plt Count 239 11/26/20 20:20: Sodium 138, Potassium 5.9 H*, BUN 49 H, Creatinine 5.55 H*, Glucose 106, Total Bilirubin 0.5, AST 9 L, ALT 16, Alkaline Phosphatase 85, Lipase 634 H <Сергей Gresham - Last Filed: 11/27/20 01:07> Assessment and Plan - Problems (Diagnosis) (1) HTN (hypertension) Current Visit: Yes Status: Chronic Qualifiers: Hypertension type: essential hypertension Qualified Code(s): I10 - Essential (primary) hypertension (2) T2DM (type 2 diabetes mellitus) Current Visit: Yes Status: Chronic Qualifiers: Diabetes mellitus nursing home insulin use: unspecified nursing home insulin use status Diabetes mellitus complication status: with other specified complication Qualified Code(s): E11.69 - Type 2 diabetes mellitus with other specified complication (3) HLD (hyperlipidemia) Current Visit: Yes Status: Chronic Qualifiers: Hyperlipidemia type: unspecified Qualified Code(s): E78.5 - Hyperlipidemia, unspecified (4) JULIUS (acute kidney injury) Current Visit: No Status: Acute (5) Hyperkalemia Current Visit: No Status: Acute (6) Metabolic acidosis Current Visit: No Status: Acute (7) Pneumonia Current Visit: Yes Status: Acute Qualifiers: Pneumonia type: due to unspecified organism Laterality: right Lung location: lower lobe of lung Qualified Code(s): J18.9 - Pneumonia, unspecified organism - Plan nephrology consulted on telemetry continue IV Lactated Ringers repeat BMP in 4 hours to monitor bicarb and K+, will treat as needed PTH pending continue IV rocephin and azithromycin breathing treatments PRN dietitian consulted for supplementation Seroquel BID for agitation DVT ppx with heparin will continue flomax, thiamine, folic acid will reconcile and continue home medications Discharge Plan: Home Plan to discharge in: 72 Hours - Advance Directives Does patient have a Living Will: No Does patient have a Durable POA for Healthcare: No - Code Status/Comfort Care Code Status Assessed: Yes (full code ) Critical Care: Yes Time Spent Managing Pts Care (In Minutes): 70 <Сергей Gresham - Last Filed: 11/27/20 01:07> Date of Service: 11/27/20 Agree with plan of care as mentioned above. Continue with aggressive IV hydration and monitor renal function closely. Physical therapy evaluation as well. <Any Gudino - Last Filed: 11/29/20 03:34>
[2020-11-27] MEDS ORDERED: IPRATROPIUM BROM 0.5MG/2.5ML NEB PRN (01:51)
[2020-11-27] MEDS ORDERED: ALBUTEROL 2.5 MG/3 ML NEB SOL NEB PRN (01:51)
[2020-11-27] MEDS ORDERED: ACETAMINOPHEN 500 MG TAB PO PRN (01:51)
[2020-11-27] MEDS ORDERED: Ringers Lactate 1,000 ML IV SCH (01:51)
[2020-11-27] MEDS ORDERED: ONDANSETRON 4 MG/2 ML VIAL IV PRN (01:51)
[2020-11-27] MEDS: HEPARIN 5000 UNIT/ML 1 ML VIAL SQ SCH ×3 (02:10→16:16)
[2020-11-27] MEDS ORDERED: HEPARIN 5000 UNIT/ML 1 ML VIAL ONE ×3 (02:29→16:05)
[2020-11-27 02:53] VITALS: BMI 23.7
[2020-11-27] MEDS ORDERED: SODIUM BICARB 50 MEQ/50ML VIAL ONE (03:48)
[2020-11-27] MEDS ORDERED: NA CHLORIDE 0.9% 1,000 ML IV SCH (05:00)
[2020-11-27] MEDS ORDERED: NA CHLORIDE 0.9% 1,000 ML ONE (05:18)
[2020-11-27 05:45] LABS: Absolute Lymphocytes (CBC) 0.4 K/uL (0.7-4.9); Basophils % 0.3 % (0-1.3); Hematocrit 28.4 % (39.6-49.0); Lymphocytes % 3.1 % (15.3-44.8); MPV 8.9 fL (7.6-11.3); RBC Red Blood Cell Count 2.94 M/uL (4.33-5.43)
[2020-11-27 06:15] LABS: Magnesium 1.5 mg/dL (1.8-2.4); Phosphorus 3.6 mg/dL (2.5-4.9); Thyroid Stimulating Hormone 0.069 uIU/mL (0.360-3.740)
[2020-11-27 06:56] LABS: Potassium 5.1 mmol/L (3.5-5.1)
[2020-11-27] MEDS: INSULIN -REGULAR HUMAN 50 UNIT/0.5 ML ML SQ SCH ×4 (07:06→21:00)
[2020-11-27] MEDS: THIAMINE HCL 100 MG TABLET PO SCH (08:29)
[2020-11-27] MEDS: QUETIAPINE 25 MG TAB PO SCH ×2 (08:29→21:03)
[2020-11-27] MEDS: FOLIC ACID 1 MG TABLET PO SCH (08:29)
[2020-11-27] MEDS ORDERED: THIAMINE HCL 100 MG TABLET ONE (08:48)
[2020-11-27] MEDS ORDERED: FOLIC ACID 1 MG TABLET ONE (08:48)
[2020-11-27] MEDS ORDERED: NA CHLORIDE 0.9% 1,000 ML IV ONE (09:56)
[2020-11-27] MEDS: NACHLORIDE 0.45% 1,000 ML IV SCH ×3 (10:13→21:04)
[2020-11-27] MEDS ORDERED: NACHLORIDE 0.45% 1,000 ML IV ONE ×2 (10:33→20:59)
[2020-11-27 10:52] LABS: Arterial Blood Carboxyhemoglob 1.9 % (0-1.5); Blood Gas Oxyhemoglobin 94.1 % (94-97); Blood O2 Saturation 96.9 % (92-98.5)
[2020-11-27] MEDS ORDERED: Magnesium Sulfate 2gm IVPB 2 G/50 ML BAG IV ONE ×2 (11:30→11:57)
--- NOTE | 2020-11-27 12:52 | CON ---
Date of Consultation: 11/27/2020 Reason For Consultation: Hyperkalemia, elevated BUN and creatinine. History Of Present Illness: This is a pleasant 60-year-old gentleman with significant past medical h istory of diabetes complicated with neuropathy and nephropathy, hypertension, hyperlipidemia, chronic kidney disease with recent acute kidney injury. At that time, his creatinine jumped to 4.5. Upon d ischarge, creatinine was normalized to 0.9. The patient had also hyperkalemia at that time. The pat stephanent recently admitted to the hospital with acute kidney injury, dehydration, deconditioning, was haley ated and recovered. The patient was discharged to the rehab facility. Apparently, the patient disch arged after 5 days of staying in the rehab. In the last few days, the patient has poor intake, nause a, vomiting, and diarrhea, feeling weak. For that reason, brought to the hospital. Primary workup s howed pneumonia, hyperkalemia with potassium 5.9 and severe acidosis and creatinine 5.5, GFR of 10. For that reason, we have been consulted. The patient apparently is at home. The patient is on melox icam and diclofenac. The patient denied any fever, any chills. Over the night, the patient was started on aggressive hydr ation, hyperkalemia resolved, but kidney function is still slow. Past Medical History: Includes; 1.Hypertension. 2.Diabetes complicated with neuropathy. 3.Hyperlipidemia. 4.Hep C. Past Surgical History: Includes knee replacement. Home Medications: Include diclofenac, vitamin C, meloxicam, Flomax, tramadol, acyclovir, calcium car bonate, midodrine, pantoprazole, thiamine, and prednisone. Family History: Positive for hypertension. Social History: Ex-smoker. Denied alcohol. Denied drugs abuse. Review of Systems: Head and Neck: No red eye. No ear pain. GI: Has nausea, vomiting. Has diarrhea, poor intake. : No polyuria. No dysuria. No hematuria. Equipment Operator [employer]: Not applicable. Respiratory: No shortness of breath. Cardiovascular: No chest pain. Endocrine: No polydipsia. Skin: No rash. Neuro: Pleasantly confused. Musculoskeletal: Knee pain. Physical Examination: General: When I saw the patient; the patient lying in bed, not on any distress, sleepy. Vital Signs: Blood pressure 87/57, pulse of 85, afebrile. Chest: Clear to auscultation. Heart: S1, S2. Regular. Abdomen: Soft, nontender. Extremities: No edema. Neuro: Alert. No focality. Laboratory Data: Upon admission to the hospital; sodium 138, potassium 5.9, bicarb 13, BUN 49, creat inine 5.5, GFR of 10, calcium 8.3. Today labs; sodium 145, potassium 5.1, bicarb 13, BUN 40, creatin ine 4, GFR of 15, calcium 7.9. TSH 0.6, PTH of 80. Urinalysis negative for infection. CT abdomen; nephrolithiasis on the right kidney without any obstruction. Current Medications: Include , ceftriaxone, Flomax, Tylenol, IV fluid of normal saline. Assessment And Plan: 1.Acute kidney injury secondary to prerenal, dehydration, superimposed with severe acidosis and hype rkalemia, superimposed with nonsteroidal use, poor perfusion ATN secondary to sepsis secondary to tox ic ATN secondary to sepsis. The patient is nonoliguric. Hyperkalemia has been resolved. Obstructiv e uropathy has been ruled out. Looked to me still on the dry side. I am going to bolus the patient with 1 L. We will change IV fluid to bicarb drip and we will follow up. Agree with holding meloxica m and diclofenac. Avoid any TJ inhibitor and ARB, and we will monitor the patient. 2.Hypertension, currently blood pressure on the lower side. Hold all blood pressure medications, es pecially TJ inhibitor or ARB or diuresis. 3.Hyperkalemia secondary to renal failure, recovered, resolved. 4.Acidosis, high anion gap metabolic acidosis, multifactorial, secondary to GI loss/renal failure. I am going to start the patient on bicarb drip. We will get ABG and I am going to get ketones, and w e will follow up. 5.Hypomagnesemia. We will supplement. 6.Pneumonia. Continue current antibiotic dose appropriate. Thank you Dr. Gudino for allowing us to participate in the care of your patient. Time spent examining the patient [id number], discussing with next of kin, placing order, reviewing data including radiology and lab, placing orders, discussing the case with the hospitalist and the nu ing team 75 minutes. MALLORY/RUBEN Voice ID: [id number] Report ID: [id number]
--- NOTE | 2020-11-27 13:06 | RAD REPORT ---
EXAM DESCRIPTION: CT - Head Brain Wo Cont - 11/27/2020 1:05 am CLINICAL HISTORY: AMS, vomiting. TECHNIQUE: Axial, coronal, and sagittal images through the brain were performed in the absence of in travenous contrast. This exam was performed according to our departmental dose-optimization program w hich includes use of Automated Exposure Control, adjustment of the mA and/or kV according to patient size and/or use of iterative reconstruction technique. COMPARISON: None. FINDINGS: There is diffuse age-appropriate atrophy throughout the brain parenchyma. Mild periventric ular white matter changes are present, and there is mild ex vacuo dilatation of the ventricular syste m. There is no intra-axial or extra-axial bleed. There is no mass or mass effect. The visualized paranasal sinuses and mastoid air cells are patent. No acute fracture is identified. IMPRESSION: No acute intracranial abnormality identified. Mild chronic age-related and microvascul ar ischemic changes. Electronically signed by: Caryl Lozoya MD 11/26/2020 9:54 PM CDT Due to temporary technical issues with the PACS/Fluency reporting system, reports are being signed by the in house radiologists without review as a courtesy to insure prompt reporting. The interpreting radiologist is fully responsible for the content of the report.
[2020-11-27 13:12] LABS: Barbiturates NEGATIVE (NEGATIVE); Benzodiazepines NEGATIVE (NEGATIVE); Cocaine NEGATIVE (NEGATIVE); METHAMPHETAM NEGATIVE (NEGATIVE); Methadone NEGATIVE (NEGATIVE); Opiates NEGATIVE (NEGATIVE); Phencyclidine NEGATIVE (NEGATIVE); THC Cannibis NEGATIVE (NEGATIVE)
--- NOTE | 2020-11-27 14:41 | RAD REPORT ---
EXAM DESCRIPTION: CT - Abdomen Pelvis Wo Contrast - 11/27/2020 1:05 am CLINICAL HISTORY: Abd pain;Nausea / vomiting. COMPARISON: None. TECHNIQUE: Serial axial CT images were obtained from above the diaphragm through the pubic symphysis without administration of intravenous or oral contrast. All CT scans are performed using dose optimization techniques as appropriate, including automated exp osure control and/or standardized protocols, where dose is adjusted for indication for exam and body habitus. FINDINGS: Mild motion degradation. Streak artifact from patient arm positioning through the upper ab domen. Thoracic: Reticulonodular consolidation in the right lower lobe. Hepatobiliary: No obvious concerning hepatic lesion identified in the absence of intravenous contrast . The gallbladder is unremarkable. No biliary ductal dilatation. Pancreas: Unremarkable. Spleen: Unremarkable. Gastrointestinal: No evidence of bowel obstruction or perienteric inflammation. The appendix is johnny l. Moderate left colonic diverticulosis. Small amount of fecal material in the colon. Adrenals: No abnormality identified in either adrenal gland. Renal: Trace bilateral perinephric fat stranding. Punctate nonobstructive superior right renal calcul us. No ureteral calculi or hydronephrosis bilaterally. No obvious parenchymal abnormality in either k idney in the absence of intravenous contrast. Bladder/Reproductive: Unremarkable appearance of the urinary bladder by CT technique. Vascular/Lymphatics: No lymphadenopathy identified by CT size criteria. Abdominal aorta is normal in caliber. Mild calcific atherosclerosis. Musculoskeletal: No concerning osseous lesion identified. Tiny fat-containing left-sided inguinal her jairo. No associated inflammatory changes. Spinal scoliosis and spondylosis. Fluid / peritoneum: No significant free fluid. No free intraperitoneal air identified. IMPRESSION: 1. No acute abnormality identified in the abdomen or pelvis by CT. 2. Right lower lobe consolidation. Correlate for infectious/inflammatory etiology. 3. Punctate nonobstructive superior right renal calculus. 4. Moderate left colonic diverticulosis. Electronically signed by: Caryl Lozoya MD 11/26/2020 9:59 PM CDT Due to temporary technical issues with the PACS/Fluency reporting system, reports are being signed by the in house radiologists without review as a courtesy to insure prompt reporting. The interpreting radiologist is fully responsible for the content of the report.
[2020-11-27] MEDS ORDERED: CEFTRIAXONE 1 GM/NS 50 ML 1 GM/50 ML BAG IV SCH (21:00)
[2020-11-27] MEDS: TAMSULOSIN 0.4 MG SR CAP PO SCH (21:03)
[2020-11-27] MEDS: AZITHROMYCIN IV 500 MG in NA CHLORIDE 0.9% 250 ML IVPB SCH (21:03)
[2020-11-27] MEDS: CEFTRIAXONE/SWI 1gm 1 GM/10 ML SYR IVP SCH (21:03)
[2020-11-27] MEDS ORDERED: TAMSULOSIN 0.4 MG SR CAP ONE (21:08)
[2020-11-27] MEDS ORDERED: CEFTRIAXONE/SWI 1gm 1 GM/10 ML SYR ONE (21:09)
[2020-11-27] MEDS: HYDROCODONE/APAP 5/325 MG TAB PO PRN (22:53)
[2020-11-28] MEDS ORDERED: HEPARIN 5000 UNIT/ML 1 ML VIAL ONE ×2 (00:09→07:51)
[2020-11-28] MEDS: HEPARIN 5000 UNIT/ML 1 ML VIAL SQ SCH ×3 (01:00→16:44)
[2020-11-28 04:39] LABS: Absolute Lymphocytes (CBC) 0.8 K/uL (0.7-4.9); Basophils % 0.2 % (0-1.3); Hematocrit 26.9 % (39.6-49.0); Lymphocytes % 6.4 % (15.3-44.8); MPV 8.6 fL (7.6-11.3); RBC Red Blood Cell Count 2.88 M/uL (4.33-5.43)
[2020-11-28 04:55] LABS: Albumin 2.5 g/dL (3.4-5.0); Bilirubin Total 0.2 mg/dL (0.2-1.0); Potassium 3.5 mmol/L (3.5-5.1); Protein, Total 6.1 g/dL (6.4-8.2)
[2020-11-28] MEDS: INSULIN -REGULAR HUMAN 50 UNIT/0.5 ML ML SQ SCH ×4 (07:09→20:18)
[2020-11-28] MEDS: THIAMINE HCL 100 MG TABLET PO SCH (07:34)
[2020-11-28] MEDS: NACHLORIDE 0.45% 1,000 ML IV SCH ×4 (07:34→22:52)
[2020-11-28] MEDS: FOLIC ACID 1 MG TABLET PO SCH (07:35)
[2020-11-28] MEDS ORDERED: MAGNESIUM SULFATE 1 gm IVPB 1 GM/100 ML BAG IV ONE ×2 (07:49→09:00)
[2020-11-28] MEDS ORDERED: THIAMINE HCL 100 MG TABLET ONE (07:51)
[2020-11-28] MEDS ORDERED: FOLIC ACID 1 MG TABLET ONE (07:51)
[2020-11-28] MEDS ORDERED: NACHLORIDE 0.45% 1,000 ML IV ONE (07:52)
--- NOTE | 2020-11-28 08:21 | EKG ---
Test Date: 2020-11-26 Test Time: 20:27:31 Product Development Technician: MARLENE MEASUREMENT RESULTS: Intervals: Rate: 106 ID: [id number] QRSD: 84 QT: 336 QTc: 446 [place]: P: 37 ID: [id number] QRS: -35 T: 46 INTERPRETIVE STATEMENTS: Sinus tachycardia Left axis deviation Abnormal ECG Compared to ECG 09/08/2020 16:19:16 Sinus rhythm no longer present Electronically Signed On 11-28-20 08:18:40 CDT by Chapin Moncada
[2020-11-28] MEDS: QUETIAPINE 25 MG TAB PO SCH ×2 (08:44→20:20)
[2020-11-28] MEDS ORDERED: POTASSIUM PHOS IN 0.9 % NACL 15 MMOL/250 ML BAG IV ONE (11:00)
--- NOTE | 2020-11-28 13:41 | PN ---
Date of Progress Note: 11/28/2020 Physical Examination: Vital Signs: Blood pressure 119/75, pulse of 94, afebrile. Chest: Clear to auscultation. Heart: S1, S2. Systolic murmur. Abdomen: Soft, nontender. Extremities: No edema. Neuro: Confused. No focality. Laboratory Data: WBC 11.9, H and H 9.1/26.9, platelet of 177. Sodium 143, potassium 3.5, bicarb 20, BUN 21, creatinine 1.8, calcium 7.6, phosphorus of 2. Current Medications: The patient on include azithromycin, ceftriaxone, heparin, Tylenol, ipratropium , Zofran, half-normal. Assessment And Plan: 1.Acute kidney injury secondary to prerenal, complicated with acidosis and hyperkalemia, recovered. We will continue hydration, change IV fluid to plain normal saline and decrease the rate to 75, and we will follow up. 2.Hyperkalemia secondary to renal failure, resolved. We will hold on any supplement. 3.Hypophosphatemia. We will hold supplement. 4.Hypertension, controlled, optimal. Continue to monitor. 5.Acidosis secondary to renal failure, high anion gap/GI loss, recovered, resolved. 6.Hypomagnesemia. We will supplement. 7.Pneumonia. Continue current antibiotic. We will follow up with the primary. SUNIL Voice ID: [id number] Report ID: [id number]
[2020-11-28] MEDS: GLUCERNA SHAKE 237 ML CAN PO SCH ×2 (16:44→20:20)
[2020-11-28] MEDS: CEFTRIAXONE/SWI 1gm 1 GM/10 ML SYR IVP SCH (20:19)
[2020-11-28] MEDS: AZITHROMYCIN IV 500 MG in NA CHLORIDE 0.9% 250 ML IVPB SCH (20:19)
[2020-11-28] MEDS: TAMSULOSIN 0.4 MG SR CAP PO SCH (20:20)
[2020-11-28] MEDS ORDERED: GLUCERNA SHAKE 237 ML CAN PO SCH (21:00)
[2020-11-29] MEDS: HEPARIN 5000 UNIT/ML 1 ML VIAL SQ SCH ×3 (00:33→17:57)
--- NOTE | 2020-11-29 03:38 | P.PN ---
Subjective Date of Service: 11/28/20 Renal function has improved remarkably. Patient's clinical symptoms are much better. Physical therapy evaluation pending. Anticipate discharge over the next 48 hr Review of Systems 10-point ROS is otherwise unremarkable Physical Examination - Vital Signs Temperature: 98.1 F Blood Pressure: 119/72 Pulse: 76 Respirations: 16 Pulse Ox (%): 98 - Physical Exam General: Alert, In no apparent distress, Oriented x3 Respiratory: Diminished, Crackles/rales, Expiratory wheezes Cardiovascular: Regular rate/rhythm, Normal S1 S2, No murmurs Gastrointestinal: Normal bowel sounds, Soft and benign, Non-distended, No tenderness Musculoskeletal: No clubbing, No swelling, No tenderness Neurological: Normal strength at 5/5 x4 extr, Sensation intact, Cranial nerves 3-12 intact - Studies Medications List Reviewed: Yes Assessment & Plan - Problems (Diagnosis) (1) Gastroenteritis Current Visit: Yes Status: Acute (2) HLD (hyperlipidemia) Current Visit: Yes Status: Chronic Qualifiers: Hyperlipidemia type: unspecified Qualified Code(s): E78.5 - Hyperlipidemia, unspecified (3) HTN (hypertension) Current Visit: Yes Status: Chronic Qualifiers: Hypertension type: essential hypertension Qualified Code(s): I10 - Essential (primary) hypertension (4) T2DM (type 2 diabetes mellitus) Current Visit: Yes Status: Chronic Qualifiers: 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 Continue with IV fluids 2. Monitor renal function 3. Nephrology consultation 4. Once patient strength is improved physical therapy eval 5. Arrange for home health 6. GI and DVT prophylax Discharge Plan: Home Plan to discharge in: Greater than 2 days - Advance Directives Does patient have a Living Will: No Does patient have a Durable POA for Healthcare: No - Code Status/Comfort Care Code Status Assessed: Yes Code Status: Full Code Critical Care: No Time Spent Managing PTS Care (In Minutes): 35
[2020-11-29 06:49] LABS: Albumin 2.6 g/dL (3.4-5.0); Potassium 3.3 mmol/L (3.5-5.1)
[2020-11-29] MEDS ORDERED: POTASSIUM PHOS 20 MM in NA CHLORIDE 0.9% 500 ML IV ONE (07:21)
[2020-11-29] MEDS ORDERED: POTASSIUM CL SA 10 MEQ TAB PO ONE (07:23)
--- NOTE | 2020-11-29 07:28 | P.PN ---
Subjective Date of Service: 11/29/20 Primary Care Provider: Kohler Chief Complaint: PNA, JULIUS Subjective: No new changes Physical Examination - Vital Signs Temperature: 98.3 F Blood Pressure: 97/61 Pulse: 74 Respirations: 16 Pulse Ox (%): 97 - Physical Exam General: Other (frail looking) HEENT: Atraumatic, Normocephalic Neck: Supple Respiratory: Other (symmetric chest expansion) Cardiovascular: No rubs, No murmurs Gastrointestinal: Soft and benign Integumentary: Other (normal temperature) Urinary: Other (no bladder distention) - Studies Medications List Reviewed: Yes Assessment And Plan - Plan 1. Acute kidney injury secondary to prerenal. Serum creatinine improved to 1.1 today. Baseline serum creatinine 0.9 in October 2020. Received IV fluids. Encourage increased by mouth fluid intake. 2. Pneumonia. receiving antibiotics. Follow-up cultures. 3. hypokalemia. Getting KCl repletion today. 4. Acidosis. I ordered Bicitra by mouth 1 dose 5. Hypophosphatemia. Getting phosphorus repletion today. 6. Hypomagnesemia. Getting magnesium per patient today.
[2020-11-29] MEDS: INSULIN -REGULAR HUMAN 50 UNIT/0.5 ML ML SQ SCH ×4 (07:30→20:34)
[2020-11-29] MEDS ORDERED: Magnesium Sulfate 2gm IVPB 2 G/50 ML BAG IV ONE (08:00)
[2020-11-29] MEDS: GLUCERNA SHAKE 237 ML CAN PO SCH ×2 (09:00→20:34)
[2020-11-29] MEDS: THIAMINE HCL 100 MG TABLET PO SCH (09:43)
[2020-11-29] MEDS: QUETIAPINE 25 MG TAB PO SCH ×2 (09:43→20:34)
[2020-11-29] MEDS: FOLIC ACID 1 MG TABLET PO SCH (09:43)
[2020-11-29] MEDS ORDERED: NA CIT/CITRIC AC 30 ML ORAL UDC PO ONE (12:00)
[2020-11-29] MEDS: NACHLORIDE 0.45% 1,000 ML IV SCH (12:32)
[2020-11-29] MEDS: AZITHROMYCIN IV 500 MG in NA CHLORIDE 0.9% 250 ML IVPB SCH (20:33)
[2020-11-29] MEDS: TAMSULOSIN 0.4 MG SR CAP PO SCH (20:34)
[2020-11-29] MEDS: CEFTRIAXONE/SWI 1gm 1 GM/10 ML SYR IVP SCH (20:34)
[2020-11-30] MEDS: GABAPENTIN 300 MG CAP PO PRN ×2 (00:54→09:03)
[2020-11-30] MEDS: HEPARIN 5000 UNIT/ML 1 ML VIAL SQ SCH ×2 (00:56→09:01)
[2020-11-30] MEDS ORDERED: MELATONIN 5 MG TABLET PO PRN (01:48)
[2020-11-30] MEDS: NACHLORIDE 0.45% 1,000 ML IV SCH (01:52)
[2020-11-30 06:25] LABS: Albumin 2.5 g/dL (3.4-5.0); Phosphorus 2.5 mg/dL (2.5-4.9); Potassium 3.8 mmol/L (3.5-5.1)
[2020-11-30] MEDS: INSULIN -REGULAR HUMAN 50 UNIT/0.5 ML ML SQ SCH ×2 (07:30→12:28)
[2020-11-30] MEDS: HYDROCODONE/APAP 5/325 MG TAB PO PRN (08:59)
[2020-11-30] MEDS: GLUCERNA SHAKE 237 ML CAN PO SCH (09:00)
[2020-11-30] MEDS: QUETIAPINE 25 MG TAB PO SCH (09:00)
[2020-11-30] MEDS: THIAMINE HCL 100 MG TABLET PO SCH (09:01)
[2020-11-30] MEDS: FOLIC ACID 1 MG TABLET PO SCH (09:01)
[2020-11-30 10:46] VITALS: O2SAT 95
--- NOTE | 2020-11-30 12:05 | P.PN ---
Date of Service: 11/29/20 Subjective Patient's symptoms have improved. Review of Systems 10-point ROS is otherwise unremarkable Physical Examination - Vital Signs Reviewed - Physical Exam General: Alert, In no apparent distress, Oriented x3 Respiratory: Diminished, Crackles/rales, Expiratory wheezes Cardiovascular: Regular rate/rhythm, Normal S1 S2, No murmurs Gastrointestinal: Normal bowel sounds, Soft and benign, Non-distended, No tenderness Musculoskeletal: No clubbing, No swelling, No tenderness Neurological: Normal strength at 5/5 x4 extr, Sensation intact, Cranial nerves 3-12 intact Assessment & Plan - Problems (Diagnosis) (1) Gastroenteritis Current Visit: Yes Status: Acute (2) HLD (hyperlipidemia) Current Visit: Yes Status: Chronic Qualifiers: Hyperlipidemia type: unspecified Qualified Code(s): E78.5 - Hyperlipidemia, unspecified (3) HTN (hypertension) Current Visit: Yes Status: Chronic Qualifiers: Hypertension type: essential hypertension Qualified Code(s): I10 - Essential (primary) hypertension (4) T2DM (type 2 diabetes mellitus) Current Visit: Yes Status: Chronic Qualifiers: Diabetes mellitus care home insulin use: unspecified care home insulin use status Diabetes mellitus complication status: with other specified complication Qualified Code(s): E11.69 - Type 2 diabetes mellitus with other specified complication (5) JULIUS (acute kidney injury) Current Visit: No Status: Acute (6) ESRD (end stage renal disease) Current Visit: No Status: Acute - Plan Plan: 1. Continue with IV fluids; renal function back to baseline; october Hep-Lock IV after completing 1 L of D5 water 2. Monitor renal function as an outpatient 3. Nephrology consultation appreciated 4. Once patient strength is improved physical therapy eval-encouraging patient to walk; physical therapy has been consulted 5. Arrange for home health prior to discharge 6. GI and DVT prophylax
[2020-11-30 13:39] LABS: C.diff Antigen/Toxin Ag pos : Tox neg (NEG : NEG)
[2020-11-30 15:25] VITALS: BP 116/69; TEMP 98.8
--- NOTE | 2020-12-01 03:29 | PN ---
Date of Progress Note: 11/30/2020 Chief Complaint: Pneumonia, acute kidney injury. Review of Systems: Patient denies headache, vision changes. Complains of non-productive cough. Physical Examination: Vital Signs: Blood pressure 98/60, heart rate 74, respiratory rate 16, temperature 98.3, SpO2 97%. Lungs: Few crackles at bases. Heart: S1, S2. Abdomen: Soft, benign. Extremities: No edema. Impression And Plan: 1.Acute kidney injury secondary to prerenal azotemia. Serum creatinine improved to 1.1. Baseline c reatinine level back in October was 0.9. Patient was encouraged to increase fluid intake by mouth. The patient completed IV fluids. 2.Pneumonia. Patient is currently treated with antibiotics. Follow up on cultures. 3.Hypokalemia, potassium replacement, and according to blood work . Patient is treated wi th Bicitra and received 1 dose. Monitor electrolytes and acid-base status. 4.Hypophosphatemia. Continue management with replacement according to lab results. SHA/RUBEN Voice ID: [id number] Report ID: [id number]
== END 2020-11-30 13:50 | disposition home health service (06) | DRG 193 ==
LOC: ER 19:52 → ERHOLD 23:56 → 2ND 11-28 11:08
PROVIDERS: ADMIT Hospitalist; ATTEND Hospitalist
DX: J18.9 Pneumonia, unspecified organism (principal); N18.6 End stage renal disease; E87.2 Acidosis; I12.0 Hypertensive chronic kidney disease with stage 5 chronic kidney disease or end stage renal disease; N17.9 Acute kidney failure, unspecified; B19.20 Unspecified viral hepatitis C without hepatic coma; E78.5 Hyperlipidemia, unspecified; E87.5 Hyperkalemia; E11.40 Type 2 diabetes mellitus with diabetic neuropathy, unspecified; E11.22 Type 2 diabetes mellitus with diabetic chronic kidney disease; E83.42 Hypomagnesemia; K52.9 Noninfective gastroenteritis and colitis, unspecified; E83.39 Other disorders of phosphorus metabolism; Z96.659 Presence of unspecified artificial knee joint; Z87.891 Personal history of nicotine dependence; Z20.822 Contact with and (suspected) exposure to COVID-19
CPT/HCPCS: 36415; 70450; 71045; 74176; 80048; 80053; 80061; 80069; 80076; 80307; 80320; 81003; 81015; 82010; 82140; 82805; 82947; 83605; 83690; 83735; 83880; 83970; 84100; 84132; 84145; 84439; 84443; 85025; 87040; 87045; 87046; 87077; 87086; 87088; 87177; 87186; 87209; 87324; 87449; 87493; 89055; 93005; 94760; 97161; 99285; J0456; J0696; J1644; J2405; J3475; J7030; J7040; J7050; J7120; U0003

== ENCOUNTER 2021-02-20 15:40 | Emergency (ER) | payer OTHER ==
--- OUTSIDE RECORDS SUMMARY | 2021-02-20 15:43 | XMS REPORT | Continuity of Care Document ---
:1960 Author Organization [facility] t Address [address] [place] [address] Dr. Silva. [address] [place] [address] Care Team Providers Name Role Phone Imelda [...] Department ID 2019-02-01 2019-02-01 Emergency Rafita Bui [facility] [id number] 16:31:58 22:14:00 Corey Lantigua [id number] [place] [id number] [place] [id number] [id number] Results This patient has no known results.
[2021-02-20 16:38] LABS: Absolute Lymphocytes (CBC) 1.7 K/uL (0.7-4.9); Basophils % 0.5 % (0-1.3); Hematocrit 32.3 % (39.6-49.0); MPV 8.6 fL (7.6-11.3); RBC Red Blood Cell Count 3.53 M/uL (4.33-5.43)
[2021-02-20 16:39] LABS: Protime INR 0.91
[2021-02-20 16:55] LABS: ALT/SGPT 16 U/L (12-78); AST/SGOT 13 U/L (15-37); Albumin 3.8 g/dL (3.4-5.0); Alkaline Phosphatase 88 U/L (45-117); BUN Blood Urea Nitrogen 17 mg/dL (7-18); Bicarbonate 24 mmol/L (21-32); Bilirubin Direct 0.1 mg/dL (0-0.2); Bilirubin Total 0.4 mg/dL (0.2-1.0); Glucose Level 77 mg/dL (74-106); Magnesium 1.9 mg/dL (1.8-2.4); NT PRO-BNP 41 pg/mL (<125); Potassium 4.5 mmol/L (3.5-5.1); Protein, Total 7.4 g/dL (6.4-8.2); Sodium Level 142 mmol/L (136-145); Troponin (Emerg Dept Use Only) < 0.02 ng/mL (0.0-0.045)
--- NOTE | 2021-02-20 17:03 | RAD REPORT ---
EXAM DESCRIPTION: RAD - Chest Single View - 02/20/2021 4:57 pm CLINICAL HISTORY: flank pain, weakness COMPARISON: Chest Single View dated 11/26/2020; Chest Single View dated 09/16/2020; Chest Single View d ated 09/13/2020; Chest Single View dated 09/13/2020 FINDINGS: Lines: None. Lungs: No evidence of edema or pneumonia. Pleural: No significant pleural effusions or pneumothorax. Cardiac: The heart size is within normal limits. Bones: No acute fractures. Other: IMPRESSION: No acute cardiopulmonary disease.
--- NOTE | 2021-02-20 17:37 | RAD REPORT ---
EXAM DESCRIPTION: RAD - Lumbar Spine 3 Views - 02/20/2021 4:57 pm CLINICAL HISTORY: back pain COMPARISON: Lumbar Puncture For Dx dated 09/16/2020; Lumbar Puncture For Dx dated 09/13/2020; SPINE LUMB AR W OBLIQUE dated 04/19/2012 FINDINGS: No acute fracture. Dextroscoliotic curvature centered at L3. Moderate degenerate disc dise ase with disc height loss and endplate sclerosis. IMPRESSION: No acute osseous abnormality involving the lumbar spine.
--- NOTE | 2021-02-20 17:38 | RAD REPORT ---
EXAM DESCRIPTION: RAD - Pelvis - 02/20/2021 4:57 pm CLINICAL HISTORY: right hip pain COMPARISON: No comparisons FINDINGS: No acute fracture. No malalignment. Mild acetabular degenerative changes are present bilat erally. IMPRESSION: No acute osseous abnormality involving the pelvis.
[2021-02-20] MEDS ORDERED: ONDANSETRON 4 MG/2 ML VIAL ONE (18:46)
[2021-02-20] MEDS ORDERED: MORPHINE 4 MG/ML SYR ONE (18:46)
--- NOTE | 2021-02-20 21:02 | ER ---
Nurse's Notes [facility] Name: Trever Jay Age: 60 yrs Sex: Male : 1960 Arrival Date: 02/20/2021 Time: 15:41 Bed 16 Private MD: Bhanu Kohler E Diagnosis: Sciatica Presentation: 02/20 15:46 Chief complaint: Patient states: my right side has been hurting bad for a couple of tw2 weeks. might be my kidneys. Spouse and/or significant other states: he stayed a month in here for kidney issues when he was here \T\ had dialysis for 5 days. Coronavirus screen: At this time, the client does not indicate any symptoms associated with coronavirus-19. Ebola Screen: Patient denies travel to an Ebola-affected area in the 21 days before illness onset. Onset of symptoms was February 20, 2021. 15:46 Method Of Arrival: Wheelchair tw2 15:49 Initial Sepsis Screen: Does the patient meet any 2 criteria? No. Patient's initial tw2 sepsis screen is negative. Does the patient have a suspected source of infection? No. Patient's initial sepsis screen is negative. Risk Assessment: Do you want to hurt yourself or someone else? Patient reports no desire to harm self or others. 15:49 Acuity: ANAMARIA 3 tw2 Triage Assessment: 15:49 General: Appears in no apparent distress. Behavior is calm, cooperative, appropriate tw2 for age. Pain: Complains of pain in RIGHT flank. Historical: - Allergies: 15:47 NKDA; tw2 - Home Meds: 15:47 unknown [Active]; tw2 - PMHx: 15:47 Diabetes - NIDDM; Hepatitis; High Cholesterol; tw2 - PSHx: 15:48 LEFT knee replacement; tw2 - Immunization history:: Adult Immunizations Client reports receiving the 2nd dose of the Covid vaccine. - Social history:: Smoking status: Patient denies any tobacco usage or history of. Screenin:29 Abuse screen: Denies threats or abuse. Denies injuries from another. Nutritional iw screening: No deficits noted. Tuberculosis screening: No symptoms or risk factors identified. Fall Risk IV access (20 points). Assessment: 17:01 Reassessment: Patient appears in no apparent distress at this time. Patient is alert, aj2 oriented x 3, equal unlabored respirations, skin warm/dry/pink. General: Appears in no apparent distress. General: Appears. Pain: Complains of pain in right flank Pain does not radiate. Pain currently is 5 out of 10 on a pain scale. Quality of pain is described as aching, Pain began years ago. Is continuous, Alleviated by. 18:28 Reassessment: Patient appears in no apparent distress at this time. Patient and/or iw family updated on plan of care and expected duration. Pain level reassessed. Patient is alert, oriented x 3, equal unlabored respirations, skin warm/dry/pink. pt given 4 mg morphine and 4 mg Zofran, reports right flank pain 8/10. will reassess. Vital Signs: 15:49 BP 122 / 79; Pulse 82; Resp 17; Temp 99.5(TE); Pulse Ox 97% on R/A; Weight 63.5 kg (R); tw2 18:28 BP 113 / 75; Pulse 66; Resp 16; Pulse Ox 97% on R/A; Pain 8/10; iw 18:45 BP 109 / 72; Pulse 63; Resp 16; Temp 97.8; Pulse Ox 99% ; aj2 19:13 BP 110 / 65; Pulse 62; Resp 16; Temp 98.9; Pulse Ox 100% on R/A; Pain 0/10; kc4 21:20 BP 131 / 78; Pulse 70; Resp 16; Temp 98.6; Pulse Ox 100% ; Pain 0/10; kc4 ED Course: 15:41 Patient arrived in ED. am2 15:41 Bhanu Kohler MD is Private Physician. am2 15:48 Arm band placed on. tw2 15:50 Triage completed. tw2 16:16 Christo Arguelles PA is PHCP. m 16:16 Rome Hendrix MD is Attending Physician. jmm 16:22 Guille Mayberry is Primary Nurse. aj2 16:30 Initial lab(s) drawn, by ak, sent to lab. Inserted saline lock: 20 gauge in left dh3 antecubital area, using aseptic technique. Blood collected. 16:35 EKG done, by ED staff, reviewed by Rome Hendrix MD. 3 16:56 XRAY Chest (1 view) In Process Unspecified. EDMS 16:56 Lumbar Spine (3 Views) XRAY In Process Unspecified. EDMS 16:57 Pelvis XRAY In Process Unspecified. EDMS 18:45 No apparent distress. aj2 18:45 Patient has correct armband on for positive identification. aj2 18:45 No provider procedures requiring assistance completed. IV is patent, is intact. aj2 21:02 Dann Cruz MD is Referral Physician. jmm 21:21 IV discontinued, intact, bleeding controlled, No redness/swelling at site. Pressure kc4 dressing applied. Administered Medications: 18:28 Drug: morphine 4 mg Route: IVP; Site: left antecubital; iw 19:15 Follow up: Response: No adverse reaction kc4 18:28 Drug: Zofran (Ondansetron) 4 mg Route: IVP; Site: left antecubital; iw 19:15 Follow up: Response: No adverse reaction kc4 21:22 Follow up: Response: No adverse reaction kc4 20:58 Drug: Valium (diazepam) 2 mg Route: IVP; Site: left antecubital; kc4 21:22 Follow up: Response: No adverse reaction kc4 21:03 Drug: morphine 2 mg Route: IVP; Site: left antecubital; kc4 21:22 Follow up: Response: No adverse reaction kc4 Outcome: 21:02 Discharge ordered by MD. [facility] 21:21 Discharged to home via wheelchair, with family, with friend. kc4 21:21 Condition: stable 21:21 Discharge instructions given to patient, family, Instructed on discharge instructions, follow up and referral plans. medication usage, Demonstrated understanding of instructions, follow-up care, medications, Prescriptions given X 1. 21:23 Patient left the ED. kc4 Signatures: Dispatcher [employer] EDMS Christo Arguelles PA PA jmm Williams, Irene RN NATHALIE iw Shell Silva RN RN Ngozi Caceres Deanna [facility] Guille Mayberry Yen Waterman kc4
--- NOTE | 2021-02-20 21:03 | EDPHYS ---
Physician Documentation [facility] Name: Trever Jay Age: 60 yrs Sex: Male : 1960 Arrival Date: 02/20/2021 Time: 15:41 Bed 16 Private MD: Bhanu Kohler E ED Physician Rome Hendrix HPI: 02/20 16:21 This 60 yrs old Male presents to ER via Wheelchair with complaints of kidney jmm problem. 16:21 The patient presents with pain that is acute. Onset: The symptoms/episode jmm began/occurred gradually, 1 week(s) ago. The pain radiates to the right leg. Associated signs and symptoms: Pertinent negatives: chest pain, dysuria, hematuria, incontinence. Modifying factors: The patient symptoms are alleviated by nothing, the patient symptoms are aggravated by movement. The patient has experienced similar episodes in the past. Patient states having similar episodes when admitted for acute renal failure. . Historical: - Allergies: 15:47 NKDA; tw2 - Home Meds: 15:47 unknown [Active]; tw2 - PMHx: 15:47 Diabetes - NIDDM; Hepatitis; High Cholesterol; tw2 - PSHx: 15:48 LEFT knee replacement; tw2 - Immunization history:: Adult Immunizations Client reports receiving the 2nd dose of the Covid vaccine. - Social history:: Smoking status: Patient denies any tobacco usage or history of. ROS: 16:21 Constitutional: Negative for fever, chills, and weight loss, Cardiovascular: Negative jmm for chest pain, palpitations, and edema, Respiratory: Negative for shortness of breath, cough, wheezing, and pleuritic chest pain. 16:21 Back: Positive for pain with movement, flank pain. 16:21 All other systems are negative. Exam: 16:21 Head/Face: atraumatic. Eyes: EOMI, no conjunctival erythema appreciated ENT: Moist jmm Mucus Membranes Neck: Trachea midline, Supple Chest/axilla: Normal chest wall appearance and motion. Cardiovascular: Regular rate and rhythm. No edema appreciated Respiratory: Normal respirations, no respiratory distress appreciated Abdomen/GI: Non distended, soft 16:21 Constitutional: The patient appears alert, awake, uncomfortable. 16:21 Back: pain, that is mild, of the left low back and right low back. 16:21 Musculoskeletal/extremity: ROM: intact in all extremities. 16:21 Skin: Appearance: Color: normal in color. 16:21 Neuro: Orientation: is normal, Mentation: is normal, Memory: is normal, Extensor hallucis longus intact bilaterally. 16:21 Psych: Behavior/mood is cooperative, anxious. Vital Signs: 15:49 BP 122 / 79; Pulse 82; Resp 17; Temp 99.5(TE); Pulse Ox 97% on R/A; Weight 63.5 kg (R); tw2 18:28 BP 113 / 75; Pulse 66; Resp 16; Pulse Ox 97% on R/A; Pain 8/10; iw 18:45 BP 109 / 72; Pulse 63; Resp 16; Temp 97.8; Pulse Ox 99% ; aj2 19:13 BP 110 / 65; Pulse 62; Resp 16; Temp 98.9; Pulse Ox 100% on R/A; Pain 0/10; kc4 21:20 BP 131 / 78; Pulse 70; Resp 16; Temp 98.6; Pulse Ox 100% ; Pain 0/10; kc4 MDM: 16:31 Patient medically screened. [facility] 21:00 Data reviewed: vital signs, nurses notes. Counseling: I had a detailed discussion with [facility] the patient and/or guardian regarding: the historical points, exam findings, and any diagnostic results supporting the discharge/admit diagnosis, lab results, radiology results, the need for outpatient follow up, to return to the emergency department if symptoms worsen or persist or if there are any questions or concerns that arise at home. ED course: Labs and imaging studies are unremarkable. Patient most likely has an episode of sciatica due to radicular pain and plain films findings of L3. Patient states he has been seen by pain management and spine in the past for chronic back pain. I do not suspect cord compression or cauda equina at this time. Patient is advised to follow-up with his primary care provider for reevaluation and otherwise given strict return precautions. Patient understood and agrees plan of care.. 02/20 16:21 Order name: Basic Metabolic Panel; Complete Time: 16:56 [facility] 02/20 16:21 Order name: CBC with Diff; Complete Time: 16:56 [facility] 02/20 16:21 Order name: LFT's; Complete Time: 16:56 [facility] 02/20 16:21 Order name: Magnesium; Complete Time: 16:56 [facility] 02/20 16:21 Order name: NT PRO-BNP; Complete Time: 16:56 [facility] 02/20 16:21 Order name: PT-INR; Complete Time: 16:56 [facility] 02/20 16:21 Order name: Troponin (emerg Dept Use Only); Complete Time: 16:56 [facility] 02/20 16:21 Order name: XRAY Chest (1 view); Complete Time: 17:04 [facility] 02/20 16:32 Order name: Lumbar Spine (3 Views) XRAY; Complete Time: 17:52 02/20 16:32 Order name: Pelvis XRAY; Complete Time: 17:52 [facility] 02/20 16:21 Order name: EKG; Complete Time: 16:21 [facility] 02/20 16:21 Order name: Cardiac monitoring; Complete Time: 16:37 [facility] 02/20 16:21 Order name: EKG - Nurse/Tech; Complete Time: 16:37 [facility] 02/20 16:21 Order name: IV Saline Lock; Complete Time: 16:37 [facility] 02/20 16:21 Order name: Labs collected and sent; Complete Time: 16:37 02/20 16:21 Order name: O2 Per Protocol; Complete Time: 16:37 [facility] 02/20 16:21 Order name: O2 Sat Monitoring; Complete Time: 16:37 jmm Administered Medications: 18:28 Drug: morphine 4 mg Route: IVP; Site: left antecubital; iw 19:15 Follow up: Response: No adverse reaction kc4 18:28 Drug: Zofran (Ondansetron) 4 mg Route: IVP; Site: left antecubital; iw 19:15 Follow up: Response: No adverse reaction kc4 21:22 Follow up: Response: No adverse reaction kc4 20:58 Drug: Valium (diazepam) 2 mg Route: IVP; Site: left antecubital; kc4 21:22 Follow up: Response: No adverse reaction kc4 21:03 Drug: morphine 2 mg Route: IVP; Site: left antecubital; kc4 21:22 Follow up: Response: No adverse reaction kc4 Disposition: 02/21 04:49 Co-signature as Attending Physician, Rome Hendrix MD I agree with the assessment and kdr plan of care. Disposition Summary: 02/20/21 21:02 Discharge Ordered Location: Home [facility] Condition: Stable [facility] Diagnosis - Sciatica [facility] Followup: jmm - With: Private Physician - When: 2 - 3 days - Reason: Recheck today's complaints, Continuance of care, Re-evaluation by your physician Followup: jmm - With: Dann Cruz MD - When: 2 - 3 days - Reason: Recheck today's complaints, Continuance of care, Re-evaluation by your physician Discharge Instructions: - Discharge Summary Sheet jm - Sciatica Rehab-Sports[facility] Forms: - Medication Reconciliation Form [facility] - Thank You Letter [facility] - Antibiotic Education [facility] - Prescription Opioid Use [facility] Prescriptions: - Zanaflex 4 mg Oral Tablet - take 1 tablet by ORAL route every 8 hours As needed; 20 tablet; Refills: 0, [facility] Product Selection Permitted Signatures: Dispatcher [employer] EDMS Rome Hendrix MD MD kdr Mickail, Joel, PA PA m Ivon Fam, RN RN iw Shell Silva RN RN tw2 Yen Luciano 4 Corrections: (The following items were deleted from the chart) 02/20 21:11 16:21 CORONAVIRUS+MR.LAB.BRZ ordered. [facility] EDMS
[2021-02-20] MEDS ORDERED: MORPHINE 2 MG/ML SYR ONE (21:18)
[2021-02-20] MEDS ORDERED: DIAZEPAM 10 MG/2 ML INJ SYRINGE ONE (21:20)
[2021-02-20 21:41] VITALS: O2SAT 100
[2021-02-20 21:42] VITALS: BP 131/78; TEMP 98.6
== END 2021-02-20 21:23 | disposition home or self-care (01) ==
LOC: ER 15:40
DX: M54.30 Sciatica, unspecified side (principal); E11.9 Type 2 diabetes mellitus without complications; Z20.822 Contact with and (suspected) exposure to COVID-19
CPT/HCPCS: 93005; 85025; 80048; 36415; 83735; 85610; 80076; 84484; 83880; 71045; 72100; 72170; 96375; 96374; 99284; U0003; J3360; J2270; J2405

== ENCOUNTER 2021-03-15 18:07 | Emergency (ER) | payer OTHER ==
[2021-03-15 19:44] LABS: Urine Blood Negative (Negative); Urine Glucose 2+ (Negative); Urine Protein Negative (Negative); Urine Specific Gravity 1.025 (1.005-1.030); Urine pH 6.5 (5.0-7.0)
[2021-03-15 19:58] LABS: Absolute Lymphocytes (CBC) 1.5 K/uL (0.7-4.9); Basophils % 0.7 % (0-1.3); Hematocrit 31.9 % (39.6-49.0); Lymphocytes % 27.7 % (15.3-44.8); MPV 8.9 fL (7.6-11.3); RBC Red Blood Cell Count 3.42 M/uL (4.33-5.43)
[2021-03-15 20:00] LABS: Protime INR 0.92
[2021-03-15 20:02] LABS: Urine Bacteria <20 /HPF (NONE SEEN); Urine RBC <5 /HPF (NONE SEEN)
[2021-03-15 20:12] LABS: ALT/SGPT 23 U/L (12-78); AST/SGOT 9 U/L (15-37); Albumin 3.6 g/dL (3.4-5.0); Alkaline Phosphatase 107 U/L (45-117); BUN Blood Urea Nitrogen 10 mg/dL (7-18); Bicarbonate 27 mmol/L (21-32); Bilirubin Direct < 0.1 mg/dL (0-0.2); Bilirubin Total 0.3 mg/dL (0.2-1.0); Glucose Level 254 mg/dL (74-106); Protein, Total 7.1 g/dL (6.4-8.2); Sodium Level 145 mmol/L (136-145)
--- NOTE | 2021-03-15 20:36 | RAD REPORT ---
EXAM DESCRIPTION: CT - Pelvis Wo Cont - 03/15/2021 8:23 pm CLINICAL HISTORY: right hip pain COMPARISON: No comparisons FINDINGS: No pelvic or hip fractures identified. Degenerative changes are present lower spine. Bladd er is unremarkable. No bowel obstruction. Diverticulosis without diverticulitis. Normal appendix. No dislocation. IMPRESSION: No pelvic or hip fracture identified.
--- NOTE | 2021-03-15 20:42 | RAD REPORT ---
EXAM DESCRIPTION: CT - Spine Lumbar Wo Con - 03/15/2021 8:24 pm CLINICAL HISTORY: Radiculopathy. Pain;Radiculopathy COMPARISON: Spine Lumbar Wo Con dated 11/22/2020; Pelvis Wo Cont dated 03/15/2021 TECHNIQUE: Axial noncontrast CT imaging of the lumbar spine was performed with coronal and sagittal re-formatted images. All CT scans are performed using dose optimization technique as appropriate and may include automated exposure control or mA/KV adjustment according to patient size. FINDINGS: No acute fracture of the lumbar spine is identified. Multilevel degenerate disc disease no pablo which is most advanced at the L2-3 level were there is moderate to severe disc height loss. Sligh t wedge compression deformity at L1 is favored chronic and/or physiologic. No malalignment is identif ied. Mild scoliosis. IMPRESSION: No lumbar spine fracture identified.
[2021-03-15] MEDS ORDERED: ONDANSETRON 4 MG/2 ML VIAL ONE (21:02)
[2021-03-15] MEDS ORDERED: NA CHLORIDE 0.9% 1,000 ML ONE (21:02)
[2021-03-15] MEDS ORDERED: HYDROMORPHONE HCL 0.5 MG/0.5 ML INJ ONE ×2 (21:02→22:02)
--- NOTE | 2021-03-15 22:07 | EDPHYS ---
Physician Documentation [facility] Name: Trever Jay Age: 60 yrs Sex: Male : 1960 Arrival Date: 03/15/2021 Time: 18:09 Bed 26 Private MD: Bhanu Kohler E ED Physician Bubba Hartman HPI: 03/15 19:20 This 60 yrs old Male presents to ER via Ambulatory with complaints of Leg Pain.mh7 19:20 The patient presents with pain, that is chronic. The complaints affect the right hip. mh7 Context: The problem was sustained at an unknown site, resulted from an unknown cause, the patient is not able to bear weight, the patient is not able to ambulate, Uses a wheelchair, Problem is a result from a previous injury: No. Onset: The symptoms/episode began/occurred 3 month(s) ago, and became worse 3 week(s) ago. Modifying factors: The symptoms are alleviated by nothing. the symptoms are aggravated by movement, Touching area . Associated signs and symptoms: Pertinent negatives calf tenderness, fever, nausea, numbness, rash, swelling, tingling, vomiting, warmth, weakness. Treatment prior to arrival includes: prescription medications, hydrocodone, Last dose taken was last night. Severity of symptoms: At their worst the symptoms were moderate, 14 day(s) ago, in the emergency department the symptoms are unchanged, despite home interventions. The patient has been recently seen at the [facility] Emergency Department, last month. Historical: - Allergies: 18:36 NKDA; hb - PMHx: 18:36 Diabetes - NIDDM; Hepatitis; High Cholesterol; hb - PSHx: 18:36 Left knee replacement; hb - Immunization history:: Client reports receiving the 2nd dose of the Covid vaccine, Flu vaccine is not up to date. - Social history:: Smoking status: Patient denies any tobacco usage or history of. ROS: 19:20 Constitutional: Negative for fever, chills, and weight loss, Eyes: Negative for injury, mh7 pain, redness, and discharge, ENT: Negative for injury, pain, and discharge, Neck: Negative for injury, pain, and swelling, Cardiovascular: Negative for chest pain, palpitations, and edema, Respiratory: Negative for shortness of breath, cough, wheezing, and pleuritic chest pain, Abdomen/GI: Negative for abdominal pain, nausea, vomiting, diarrhea, and constipation, Back: Negative for injury and pain, : Negative for injury, bleeding, discharge, and swelling, Skin: Negative for injury, rash, and discoloration, Neuro: Negative for headache, weakness, numbness, tingling, and seizure, Psych: Negative for depression, anxiety, suicide ideation, homicidal ideation, and hallucinations, Allergy/Immunology: Negative for hives, rash, and allergies, Endocrine: Negative for neck swelling, polydipsia, polyuria, polyphagia, and marked weight changes, Hematologic/Lymphatic: Negative for swollen nodes, abnormal bleeding, and unusual bruising. Exam: 19:20 Constitutional: This is a well developed, well nourished patient who is awake, alert, mh7 and in no acute distress. Head/Face: Normocephalic, atraumatic. Eyes: Pupils equal round and reactive to light, extra-ocular motions intact. Lids and lashes normal. Conjunctiva and sclera are non-icteric and not injected. Cornea within normal limits. Periorbital areas with no swelling, redness, or edema. Neck: Trachea midline, no thyromegaly or masses palpated, and no cervical lymphadenopathy. Supple, full range of motion without nuchal rigidity, or vertebral point tenderness. No Meningismus. Chest/axilla: Normal chest wall appearance and motion. Nontender with no deformity. No lesions are appreciated. Cardiovascular: Regular rate and rhythm with a normal S1 and S2. No gallops, murmurs, or rubs. Normal PMI, no JVD. No pulse deficits. Respiratory: Lungs have equal breath sounds bilaterally, clear to auscultation and percussion. No rales, rhonchi or wheezes noted. No increased work of breathing, no retractions or nasal flaring. Abdomen/GI: Soft, non-tender, with normal bowel sounds. No distension or tympany. No guarding or rebound. No evidence of tenderness throughout. Back: No spinal tenderness. No costovertebral tenderness. Full range of motion. Skin: Warm, dry with normal turgor. Normal color with no rashes, no lesions, and no evidence of cellulitis. 19:20 Neuro: Awake and alert, GCS 15, oriented to person, place, time, and situation. Cranial nerves II-XII grossly intact. Motor strength 5/5 in all extremities. Sensory grossly intact. Cerebellar exam normal. Normal gait. Psych: Awake, alert, with orientation to person, place and time. Behavior, mood, and affect are within normal limits. 19:20 Musculoskeletal/extremity: Extremities: noted in the Right lateral hip: pain, tenderness, ROM: intact in all extremities, Circulation is intact in all extremities. Sensation intact. Compartment Syndrome exam of affected extremity: is normal. no numbness, no tingling, no sensation deficit, no palor, no weak pulses, Joints: the right hip displays tenderness, Weight bearing: is unable to bear weight, Tendon exam: specific tendon testing normal through active and passive range of motion DVT Exam: no pain, no swelling, no tenderness, negative Homans' sign noted on exam, no appreciated bluish discoloration, no erythema, no increased warmth, Calves: are non-tender, have equal circumference. Vital Signs: 18:34 BP 99 / 71; Pulse 89; Resp 16; Temp 97.7; Pulse Ox 98% on R/A; Pain 10/10; hb 21:38 BP 134 / 82 LA Supine (auto/reg); Pulse 72; Resp 16 S; Pulse Ox 100% on R/A; Pain 9/10; sj1 22:26 BP 139 / 74 LA Supine (auto/); Pulse 72; Resp 16; Temp 97.9(O); Pulse Ox 100% on R/A; sj1 Pain 8/10; MDM: 22:04 Differential diagnosis: dislocation, closed fracture, contusion, abrasion, tendonitis, mh7 Musculoskeletal pain. Data reviewed: vital signs, nurses notes, old medical records, lab test result(s), CBC, electrolytes, urinalysis, radiologic studies, CT scan. Data interpreted: Pulse oximetry: on room air is 100 %. Interpretation: normal. Counseling: I had a detailed discussion with the patient and/or guardian regarding: the historical points, exam findings, and any diagnostic results supporting the discharge/admit diagnosis, lab results, radiology results, the need for outpatient follow up, to return to the emergency department if symptoms worsen or persist or if there are any questions or concerns that arise at home. Response to treatment: the patient's symptoms have markedly improved after treatment. 22:06 Patient medically screened. [facility] 03/15 19:34 Order name: CBC with Diff [facility] 03/15 19:34 Order name: Basic Metabolic Panel; Complete Time: 20:14 [facility] 03/15 19:34 Order name: Protime (+inr); Complete Time: 20:27 [facility] 03/15 19:34 Order name: Ptt, Activated; Complete Time: 20:27 [facility] 03/15 19:34 Order name: LFT's; Complete Time: 20:27 [facility] 03/15 19:34 Order name: Urine Microscopic Only; Complete Time: 20:27 [facility] 03/15 19:34 Order name: CBC with Automated Diff; Complete Time: 20:27 [facility] 03/15 19:44 Order name: Urine Dipstick-Ancillary; Complete Time: 19:47 [facility] 03/15 19:58 Order name: CT Pelvis wo Cont; Complete Time: 21:05 [facility] 03/15 19:58 Order name: CT Lumbar Spine Wo Con; Complete Time: 21:05 [facility] 03/15 19:34 Order name: Urine Dipstick-Ancillary (obtain specimen); Complete Time: 19:46 [facility] 03/15 19:34 Order name: Saline Lock; Complete Time: 19:46 [facility] Administered Medications: 20:44 Drug: Dilaudid (HYDROmorphone) 0.5 mg Route: IVP; Site: right forearm; sj1 22:42 Follow up: Response: Pain is decreased sj1 20:44 Drug: Zofran (Ondansetron) 4 mg Route: IVP; Site: right forearm; sj1 22:42 Follow up: Response: Nausea is decreased sj1 20:45 Drug: NS 0.9% 1000 ml Route: IV; Rate: 1000 ml; Site: right forearm; sj1 21:39 Follow up: IV Intake: 1000ml sj1 21:41 Drug: Dilaudid (HYDROmorphone) 0.5 mg Route: IVP; Site: right wrist; sj1 22:41 Follow up: Response: Pain is decreased sj1 Disposition Summary: 03/15/21 22:06 Discharge Ordered Location: Home [facility] Problem: an ongoing problem [facility] Symptoms: have improved [facility] Condition: Stable [facility] Diagnosis - Pain in right hip [facility] - Other intervertebral disc degeneration, lumbar region [facility] Followup: [facility] - With: Private Physician - When: 2 - 3 days - Reason: Worsening of condition, Recheck today's complaints, Continuance of care, Re-evaluation by your physician Followup: [facility] - With: Joce Brooks MD - When: 2 - 3 days - Reason: Worsening of condition, Recheck today's complaints Discharge Instructions: - Discharge Summary Sheet 7 - Degenerative Disk Disease 7 - Hip Pain [facility] Forms: - Medication Reconciliation Form [facility] - Thank You Letter [facility] - Antibiotic Education [facility] - Prescription Opioid Use [facility] Signatures: Dispatcher [employer] EDMS Damien Muhammad, ELIGIBILITY WORKER-C ELIGIBILITY WORKER-Cla1 Ariela Akhtar, RN RN Bubba Blanco MD MD 7 Skyla Gresham RN RN sj1
--- NOTE | 2021-03-15 22:07 | ER ---
Nurse's Notes [facility] Name: Trever Jay Age: 60 yrs Sex: Male : 1960 Arrival Date: 03/15/2021 Time: 18:09 Bed 26 Private MD: Bhanu Kohler E Diagnosis: Pain in right hip;Other intervertebral disc degeneration, lumbar region Presentation: 03/15 18:34 Chief complaint: Right leg pain x 3 weeks. "Pain begins in outer thigh and shoots down hb like lightening." Denies injury. Coronavirus screen: At this time, the client does not indicate any symptoms associated with coronavirus-19. Ebola Screen: No symptoms or risks identified at this time. Risk Assessment: Do you want to hurt yourself or someone else? Patient reports no desire to harm self or others. Onset of symptoms was February 2021. 18:34 Method Of Arrival: Ambulatory hb 18:34 Acuity: ANAMARIA 3 hb 19:49 Initial Sepsis Screen: Does the patient meet any 2 criteria? No. Patient's initial sj1 sepsis screen is negative. Does the patient have a suspected source of infection? No. Patient's initial sepsis screen is negative. Triage Assessment: 19:48 General: Appears in no apparent distress. Behavior is calm, cooperative, appropriate sj1 for age. Pain: Complains of pain in rt leg Pain currently is 10 out of 10 on a pain scale. at worst was 10 out of 10 on a pain scale. Quality of pain is described as sharp, Pain began years ago. EENT: No deficits noted. Cardiovascular: No deficits noted. Respiratory: No deficits noted. GI: No deficits noted. : No deficits noted. Derm: No deficits noted. Musculoskeletal: Reports pain in rt leg. Historical: - Allergies: 18:36 NKDA; hb - PMHx: 18:36 Diabetes - NIDDM; Hepatitis; High Cholesterol; hb - PSHx: 18:36 Left knee replacement; hb - Immunization history:: Client reports receiving the 2nd dose of the Covid vaccine, Flu vaccine is not up to date. - Social history:: Smoking status: Patient denies any tobacco usage or history of. Screenin:47 Abuse screen: Denies threats or abuse. Denies injuries from another. Nutritional sj1 screening: No deficits noted. Tuberculosis screening: No symptoms or risk factors identified. Fall Risk None identified. Vital Signs: 18:34 BP 99 / 71; Pulse 89; Resp 16; Temp 97.7; Pulse Ox 98% on R/A; Pain 10/10; hb 21:38 BP 134 / 82 LA Supine (auto/reg); Pulse 72; Resp 16 S; Pulse Ox 100% on R/A; Pain 9/10; sj1 22:26 BP 139 / 74 LA Supine (auto/); Pulse 72; Resp 16; Temp 97.9(O); Pulse Ox 100% on R/A; sj1 Pain 8/10; ED Course: 18:09 Patient arrived in ED. mr 18:09 Bhanu Kohler MD is Private Physician. mr 18:36 Triage completed. hb 18:36 Arm band placed on. hb 19:02 Bubba Hartman MD is Attending Physician. mh7 19:46 Urine Microscopic Only Sent. sj1 19:46 LFT's Sent. sj1 19:47 Patient has correct armband on for positive identification. Placed in gown. Bed in low sj1 position. Call light in reach. Side rails up X 1. 19:47 Protime (+inr) Sent. sj1 19:47 Ptt, Activated Sent. sj1 19:47 Basic Metabolic Panel Sent. sj1 19:47 CBC with Diff Sent. sj1 19:47 No provider procedures requiring assistance completed. Inserted saline lock: 20 gauge sj1 in right forearm, using aseptic technique. Blood collected. 20:10 CT Pelvis wo Cont Sent. sj1 20:10 CT Lumbar Spine Wo Con Sent. sj1 20:23 CT Pelvis wo Cont In Process Unspecified. EDMS 20:24 CT Lumbar Spine Wo Con In Process Unspecified. EDMS 22:05 Joce Brooks MD is Referral Physician. mh7 22:42 IV discontinued, intact, bleeding controlled, No redness/swelling at site. sj1 Administered Medications: 20:44 Drug: Dilaudid (HYDROmorphone) 0.5 mg Route: IVP; Site: right forearm; sj1 22:42 Follow up: Response: Pain is decreased sj1 20:44 Drug: Zofran (Ondansetron) 4 mg Route: IVP; Site: right forearm; sj1 22:42 Follow up: Response: Nausea is decreased sj1 20:45 Drug: NS 0.9% 1000 ml Route: IV; Rate: 1000 ml; Site: right forearm; sj1 21:39 Follow up: IV Intake: 1000ml sj1 21:41 Drug: Dilaudid (HYDROmorphone) 0.5 mg Route: IVP; Site: right wrist; sj1 22:41 Follow up: Response: Pain is decreased sj1 Intake: 21:39 IV: 1000ml; Total: 1000ml. sj1 Outcome: 22:06 Discharge ordered by . yovany 22:41 Discharged to home via wheelchair. sj1 22:41 Condition: stable 22:41 Discharge instructions given to patient, Instructed on discharge instructions, follow up and referral plans. Demonstrated understanding of instructions, follow-up care. 22:43 Patient left the ED. sj1 Signatures: Dispatcher [employer] Vania Hagen Heather, Bubba Singh RN, MD MD Skyla Rios RN RN sj1
[2021-03-15 22:53] VITALS: O2SAT 100
[2021-03-15 22:55] VITALS: BP 139/74; TEMP 97.9
== END 2021-03-15 22:43 | disposition home or self-care (01) ==
LOC: ER 18:07
DX: M25.551 Pain in right hip (principal); M51.36 Other intervertebral disc degeneration, lumbar region
CPT/HCPCS: 85025; 80048; 36415; 85610; 80076; 85730; 72131; 72192; 99284; J1170 ×2; J7030; J2405; 81003; 81015

== ENCOUNTER 2021-09-11 12:31 | Observation (INO) | payer OTHER ==
--- OUTSIDE RECORDS SUMMARY | 2021-09-11 12:34 | XMS REPORT | Continuity of Care Document ---
:1960 Author Organization [facility] t Address [address] [place] [address] Dr. Silva[address] [place] [id number] Care Team Providers Name Role Phone Kohler, E Attending Clinician Unavailable Ramya BOLIVAR, C Attending Clinician Grzegorz BOLIVAR Attending Clinician Problems This patient has no known problems. Allergies, Adverse Reactions, Alerts This patient has no known allergies or adverse reactions. Medications This patient has no known medications. Procedures This patient has no known procedures. Encounters Start End Encounter Admission Attending Care Care Encounter Source Date/Time Date/Time Type Type Clinicians Facility Department ID 2021-07-09 Outpatient [facility]ler, [facility] [id number] [facility] [address] 13:53:25 Bhanu [id number] [facility] 2021-07-09 Outpatient Kohler, [facility] [id number] [facility] [address] 13:15:22 Bhanu [id number] [facility] 2021-07-09 Outpatient Kohler, [facility] [id number] [facility] [address] 13:09:01 Bhanu [id number] [facility] 2021-07-09 Outpatient Kohler, [facility] [id number] [facility] [address] 13:07:45 Bhanu [id number] [facility] 2021-07-09 Outpatient Kohler, [facility] [id number] [facility] [address] 13:07:26 Bhanu [id number] [facility] 2021-07-09 Outpatient Kohler, [facility] [id number] [facility] 12:57:00 [facility] [id number] [facility] ent Clinics 2019-02-01 2019-02-01 Emergency Rafita Bui [facility] [id number] 16:31:58 22:14:00 Corey Lantigua [id number] [place] [id number] [place] [id number] Results This patient has no known results.
[2021-09-11] MEDS ORDERED: NA CHLORIDE 0.9% 500 ML ONE ×2 (13:38→16:37)
[2021-09-11] MEDS ORDERED: PANTOPRAZOLE 40 MG INJ ONE (13:38)
[2021-09-11] MEDS ORDERED: ONDANSETRON 4 MG/2 ML VIAL ONE (13:38)
[2021-09-11 13:47] LABS: Protime INR 0.91
[2021-09-11 13:48] LABS: Absolute Lymphocytes (CBC) 1.5 K/uL (0.7-4.9); Hematocrit 32.8 % (39.6-49.0); Lymphocytes % 23.2 % (15.3-44.8); MPV 8.8 fL (7.6-11.3); RBC Red Blood Cell Count 3.74 M/uL (4.33-5.43)
[2021-09-11 14:00] LABS: Albumin 3.6 g/dL (3.4-5.0); Bilirubin Direct 0.1 mg/dL (0-0.2); Bilirubin Total 0.3 mg/dL (0.2-1.0); Potassium 4.5 mmol/L (3.5-5.1); Protein, Total 6.9 g/dL (6.4-8.2)
--- NOTE | 2021-09-11 14:54 | RAD REPORT ---
EXAM DESCRIPTION: RAD - Chest Single View - 09/11/2021 2:37 pm CLINICAL HISTORY: CHEST PAIN COMPARISON: Portable 02/20/2021 TECHNIQUE: AP portable chest image was obtained 09/11/2021 2:37 pm . FINDINGS: Low lung volumes noted. No peripheral mass or consolidation. Interstitial pattern is simil ar to comparison. Heart and vasculature are normal. No measurable pleural effusion and no pneumothora x. No acute bony abnormality seen. No acute aortic findings suspected. IMPRESSION: No acute cardiopulmonary process.
[2021-09-11] MEDS ORDERED: NA CHLORIDE 0.9% 1,000 ML ONE ×3 (15:10→18:54)
--- NOTE | 2021-09-11 15:14 | RAD REPORT ---
EXAM DESCRIPTION: CT - Chest Abd Pelvis Wo Con - 09/11/2021 2:32 pm CLINICAL HISTORY: abdominal pain;Chest pain COMPARISON: No comparisons TECHNIQUE: Axial 5 millimeter thick images of the chest, abdomen and pelvis were obtained without IV contrast. Oral contrast was administered. All CT scans are performed using dose optimization technique as appropriate and may include automated exposure control or mA/KV adjustment according to patient size. FINDINGS: Three small areas of rounded ground-glass opacification are present in the right upper lob e. No other similar airspace abnormality seen. No mass or consolidation identifiable. A small right u pper lobe foci are nonspecific. Very minimal areas of pneumonitis are possible. Atelectasis is possib le. This is not likely an emergent finding. Lung parenchyma is otherwise unremarkable. No pneumothora x or pleural effusion. No chest wall mass or abnormal axillary lymphadenopathy seen. Mediastinal an d hilar regions show no mass or lymphadenopathy. No significant cardiac finding. No endobronchial le carlin. The liver, spleen and pancreas show no significant findings for non contrast imaging. Gallbladder an d biliary tree are normal. No hydronephrosis or suspicious renal mass. Isodense masses and pyelonephritis cannot be excluded on non contrast imaging. No adrenal abnormalities. No urinary bladder abnormalities. No dilated bowel loops or focal ball bowel wall thickening. Appendix is normal. Diverticulosis is min imal with no diverticulitis. Stool volume in the colon is moderate. No free air, free fluid or inflam matory stranding. Small fat filled inguinal hernias are present. No bulky lymphadenopathy or worriso me mass. Disc and bone degenerative changes are present with no acute or pathologic bone process. Vascular rajendra cifications present without evidence for significant finding on noncontrast imaging. IMPRESSION: Three small areas of ground-glass opacification in the right upper lobe are present. Thi s is a minimal finding but could indicate minimal pneumonitis. Atelectasis is possible. Mass lesion i s not suspected. CT abdomen and pelvis shows no acute or emergent finding. Nonacute findings detailed in the body of t he report.
[2021-09-11] MEDS ORDERED: KETOROLAC 30 MG/ML INJ ONE (15:15)
--- NOTE | 2021-09-11 15:39 | EDPHYS ---
Physician Documentation [facility] Name: Trever Jay Age: 61 yrs Sex: Male : 1960 Arrival Date: 09/11/2021 Time: 12:42 Bed 14 Private MD: ED Physician Donny Camarillo HPI: 09/11 13:30 This 61 yrs old Male presents to ER via Wheelchair with complaints of Back cp Pain, Urinary Frequency, Chest Pain. 13:30 The patient or guardian reports chest pain that is located primarily in the substernal cp area. 13:30 Onset: for past several weeks. The patient presents with pain that is acute, with no cp known mechanism of injury. The symptoms are located in the mid back. Associated signs and symptoms: Pertinent positives: urinary frequency, Pertinent negatives: constipation, numbness, tingling, weakness, diarrhea. Historical: - Allergies: 13:11 Ampicillin; ap3 - PMHx: 13:08 Diabetes - NIDDM; Hepatitis; High Cholesterol; ap3 13:10 Asthma; Osteoporosis; Depressive disorder; Anxiety; ap3 13:11 incontinence; GERD; Diverticulosis; fatty liver; neuropathy; Chronic pain; overactive ap3 bladder; - PSHx: 13:08 Left knee replacement; ap3 - Immunization history:: Client reports receiving the 2nd dose of the Covid vaccine, Flu vaccine is not up to date. - Social history:: Smoking status: Patient denies any tobacco usage or history of. ROS: 13:35 Constitutional: Negative for body aches, chills, fever, poor PO intake. cp 13:35 Eyes: Negative for injury, pain, redness, and discharge. cp 13:35 ENT: Negative for drainage from ear(s), ear pain, sore throat, difficulty swallowing, difficulty handling secretions. 13:35 Neck: Negative for pain with movement, pain at rest, stiffness. 13:35 Cardiovascular: Positive for chest pain, Negative for edema, palpitations. 13:35 Respiratory: Positive for cough, Negative for shortness of breath, wheezing. 13:35 Abdomen/GI: Negative for vomiting, diarrhea, constipation. 13:35 Back: Positive for pain at rest, pain with movement. 13:35 : Positive for urinary frequency. 13:35 Neuro: Negative for altered mental status, dizziness, headache, numbness, syncope, weakness. 13:35 All other systems are negative. Exam: 13:40 Constitutional: The patient appears in no acute distress, alert, awake, cp non-diaphoretic, non-toxic, well developed, well nourished, uncomfortable. 13:40 Head/Face: Normocephalic, atraumatic. cp 13:40 Eyes: Periorbital structures: appear normal, Conjunctiva: normal, no exudate, no injection, Sclera: no appreciated abnormality, Lids and lashes: appear normal, bilaterally. 13:40 ENT: External ear(s): are unremarkable, Nose: is normal, Mouth: Lips: moist, Oral mucosa: moist, Posterior pharynx: Airway: no evidence of obstruction, patent. 13:40 Neck: ROM/movement: is normal, is supple, without pain, no range of motions limitations. 13:40 Chest/axilla: Inspection: normal, Palpation: is normal, no crepitus, no tenderness. 13:40 Cardiovascular: Rate: normal, Rhythm: regular, Edema: is not appreciated, JVD: is not appreciated. 13:40 Respiratory: the patient does not display signs of respiratory distress, Respirations: normal, no use of accessory muscles, no retractions, labored breathing, is not present, Breath sounds: are clear throughout, no decreased breath sounds, no stridor, no wheezing. 13:40 Abdomen/GI: Inspection: abdomen appears normal, Bowel sounds: active, all quadrants, Palpation: soft, in all quadrants, mild abdominal tenderness, in the epigastric area, rebound tenderness, is not appreciated, voluntary guarding, is not appreciated, involuntary guarding, is not appreciated. 13:40 Back: CVA tenderness, is absent, vertebral tenderness, is not appreciated. 13:40 Skin: cellulitis, is not appreciated, no rash present. 13:40 Neuro: Orientation: to person, place \\T\\ time. Mentation: able to follow commands, Motor: moves all fours, strength is normal. 13:40 ECG was reviewed by the Attending Physician. cp 18:00 : Rectal exam: Stool: brown, Guaiac testing: results were negative for occult blood. cp Vital Signs: 13:04 BP 92 / 68; Pulse 86; Resp 17; Temp 98.1; Pulse Ox 98% ; Weight 133.81 kg; Height 5 ft. ap3 2 in. (157.48 cm); Pain 9/10; 13:47 BP 83 / 64; ll1 13:47 ll1 14:10 BP 63 / 52; ll1 14:49 BP 89 / 50; Pulse 75; Resp 18; Pulse Ox 98% on R/A; ph 16:23 BP 88 / 55; Pulse 70; Resp 16; Pulse Ox 97% on R/A; ph 17:15 BP 78 / 58; Pulse 74; Resp 18; Pulse Ox 97% on R/A; ph 17:45 BP 83 / 53; Pulse 69; Resp 16; Pulse Ox 97% on R/A; ph 18:15 BP 133 / 91; Pulse 72; Resp 16; Pulse Ox 100% on R/A; ph 18:39 BP 111 / 83; Pulse 72; rn 18:45 BP 111 / 83; Pulse 73; Resp 16; Pulse Ox 98% on R/A; ph 20:00 BP 115 / 78; Pulse 83; Resp 16; Pulse Ox 99% on R/A; st1 21:00 BP 84 / 61; Pulse 70; Resp 16; Pulse Ox 98% on R/A; st1 22:00 BP 84 / 52; Pulse 62; Resp 18; Pulse Ox 98% on R/A; st1 23:00 BP 89 / 56; Pulse 62; Resp 14; Pulse Ox 98% on R/A; st1 09/12 00:00 BP 97 / 64; Pulse 65; Resp 16; Pulse Ox 100% on R/A; st1 09/11 13:04 Body Mass Index 53.96 (133.81 kg, 157.48 cm) ap3 09/11 13:47 notified Maria M Garcia of low BP. IV fluids going. ll1 14:10 C. Page informed of lower BP, moved to exam #4. Report given to CATINA. ll1 MDM: 13:14 Patient medically screened. cp 14:00 Differential diagnosis: Cholelithiasis pneumonia, stable angina, Ureterolithiasis cp unstable angina, sepsis, UTI. 09/12 15:35 Data reviewed: vital signs, nurses notes, lab test result(s), EKG, radiologic studies, cp CT scan, plain films, I have discussed the patient's presentation/case with the attending Emergency Department Physician; and as a result, I will admit patient. 15:35 Test interpretation: by ED physician or midlevel provider: plain radiologic studies. cp Counseling: I had a detailed discussion with the patient and/or guardian regarding: the historical points, exam findings, and any diagnostic results supporting the discharge/admit diagnosis, lab results, radiology results, the need for further work-up and treatment in the hospital. 09/11 13:23 Order name: Basic Metabolic Panel; Complete Time: 14:02 cp 09/11 14:02 Interpretation: Normal except: GLUC 255; BUN 34; CRE 2.13; GFR 32. cp 09/11 13:23 Order name: CBC with Diff; Complete Time: 14:02 cp 09/11 14:02 Interpretation: Normal except: RBC 3.74; HGB 10.9; HCT 32.8; MCV 87.6. cp 09/11 13:23 Order name: LFT's; Complete Time: 14:02 cp 09/11 15:17 Interpretation: Normal except: AST 8; ALK 137. cp 09/11 13:23 Order name: Magnesium; Complete Time: 14:02 cp 09/11 13:23 Order name: NT PRO-BNP; Complete Time: 14:02 cp 09/11 13:23 Order name: PT-INR; Complete Time: 14:02 cp 09/11 13:23 Order name: Troponin HS; Complete Time: 14:02 cp 09/11 13:23 Order name: Lipase; Complete Time: 14:02 cp 09/11 14:01 Order name: Urine Microscopic Only; Complete Time: 00:29 cp 09/11 14:16 Order name: Blood Culture Adult (2) cp 09/11 14:16 Order name: Lactate; Complete Time: 15:16 cp 09/11 14:16 Order name: Procalcitonin; Complete Time: 16:14 cp 09/11 15:02 Order name: SARS-COV-2 RT PCR (Document "Date of Onset" if Symptomatic); Complete Time: em1 16:14 09/11 16:59 Order name: Thyroid Stimulating Hormone; Complete Time: 00:29 EDMS 09/11 16:59 Order name: UR CREAT EDMS 09/11 16:59 Order name: UR SODIUM EDMS 09/11 16:59 Order name: CBC with Automated Diff EDMS 09/11 16:59 Order name: CBC with Automated Diff EDMS 09/11 16:59 Order name: Comprehensive Metabolic Panel EDID 09/11 16:59 Order name: Comprehensive Metabolic Panel EDID 09/11 16:59 Order name: Magnesium EDID 09/11 16:59 Order name: Magnesium; Complete Time: 00:29 EDID 09/11 16:59 Order name: Magnesium EDMS 09/11 16:59 Order name: Magnesium EDID 09/11 17:47 Order name: Urine Dipstick-Ancillary; Complete Time: 18:15 EDID 09/11 18:41 Order name: Vancomycin Level Trough EDMS 09/12 03:47 Order name: Glucose, Ancillary Testing EDMS 09/12 04:01 Order name: Glucose, Ancillary Testing EDMS 09/12 08:40 Order name: Glucose, Ancillary Testing EDID 09/12 09:33 Order name: Basic Metabolic Panel EDID 09/11 13:23 Order name: XRAY Chest (1 view); Complete Time: 15:16 cp 09/11 15:16 Interpretation: Report review. 09/11 13:23 Order name: EKG; Complete Time: 13:24 cp 09/11 13:23 Order name: Cardiac monitoring; Complete Time: 13:42 cp 09/11 13:23 Order name: EKG - Nurse/Tech; Complete Time: 13:42 cp 09/11 13:23 Order name: IV Saline Lock; Complete Time: 13:25 cp 09/11 13:23 Order name: Labs collected and sent; Complete Time: 13:25 cp 09/11 13:23 Order name: O2 Per Protocol; Complete Time: 13:25 cp 09/11 13:23 Order name: O2 Sat Monitoring; Complete Time: 13:25 cp 09/11 14:01 Order name: Urine Dipstick-Ancillary (obtain specimen); Complete Time: 19:34 cp 09/11 14:17 Order name: CT Chest Abdomen Pelvis W/O Contrast; Complete Time: 15:16 cp 09/11 15:36 Order name: Velazquez; Complete Time: 16:21 cp 09/11 16:59 Order name: CONS Physician Consult EDID 09/11 16:59 Order name: 60g Consistent Carbohydrate (ADA 1800/2000) EDID 09/11 16:59 Order name: Renal Ultrasound-Complete; Complete Time: 00:29 EDID 09/12 11:41 Order name: Glucose, Ancillary Testing EDMS EC/31 13:40 Rate is 76 beats/min. Rhythm is regular. MO interval is normal. QRS interval is normal. cp QT interval is normal. T waves are Inverted in lead aVR. Interpreted by me. Reviewed by me. Administered Medications: 13:41 Drug: ProTONIX (pantoprazole) 40 mg Route: IVP; Site: right forearm; ll1 19:42 Follow up: Response: No adverse reaction ph 13:41 Drug: Zofran (Ondansetron) 4 mg Route: IVP; Site: right forearm; ll1 19:42 Follow up: Response: No adverse reaction ph 13:41 Drug: NS 0.9% 500 ml Route: IV; Rate: bolus; Site: right forearm; ll1 15:00 Follow up: Response: No adverse reaction; IV Status: Completed infusion ph 15:15 Drug: NS 0.9% 1000 ml Route: IV; Rate: 1 bolus; Site: right wrist; ph 17:00 Follow up: Response: No adverse reaction; IV Status: Completed infusion; IV Intake: ph 1000ml 15:16 Drug: Ketorolac 15 mg Route: IVP; Site: right wrist; ph 19:41 Follow up: Response: No adverse reaction ph 16:23 Drug: Viscous Lidocaine Liquid (4 %) 5 ml Route: Mucous Membrane; ph 19:40 Follow up: Response: No adverse reaction ph 16:30 Drug: Rocephin - (cefTRIAXone) 1 grams Route: IVPB; Infused Over: 30 mins; Site: right ph forearm; 19:41 Follow up: Response: No adverse reaction; IV Status: Completed infusion ph 16:46 Drug: NS 0.9% 1000 ml Route: IV; Rate: 1000 ml; Site: right forearm; ph 18:30 Follow up: IV Status: Completed infusion; IV Intake: 1000ml ph 16:47 Drug: NS 0.9% 500 ml Route: IV; Rate: bolus; Site: right forearm; ph 17:35 Follow up: Response: No adverse reaction; IV Status: Completed infusion ph 16:47 Drug: HydroCORTISONE 100 mg Route: IVP; Site: right forearm; ph 19:40 Follow up: Response: No adverse reaction ph 17:00 Drug: Zithromax (azithromycin) 500 mg Route: IVPB; Infused Over: 1 hrs; Site: right ph forearm; 18:00 Follow up: Response: No adverse reaction ph 18:00 Follow up: Response: No adverse reaction; IV Status: Completed infusion; IV Intake: ph 250ml Disposition: 09/13 08:57 Co-signature as Attending Physician, Donny Camarillo MD. rn Disposition Summary: 09/11/21 15:38 Hospitalization Ordered Hospitalization Status: Inpatient Admission cp Provider: Miryam Stark cp Condition: Stable cp Problem: new cp Symptoms: have improved cp Bed/Room Type: Standard cp Location: [facility] ER HOLD(09/11/21 19:56) Room Assignment: ERHOLD-(09/11/21 19:56) cg Diagnosis - Acute kidney failure, unspecified cp - Other pneumonia, unspecified organism cp - Hypotension, unspecified cp Forms: - Medication Reconciliation Form cp - SBAR form cp Signatures: Dispatcher [employer] EDMS Donny Camarillo MD MD rn Attema, Lee, ENVIRONMENTAL PROTECTION FORESTER-C ENVIRONMENTAL PROTECTION FORESTER-Bertin1 Katarzyna Dickinson RN Donavon Tomas ph, PA PA cp Keri Ceballos RN RN Ngozi Silva RN RN ap3 Lewis, Lynsay RN RN ll1 Corrections: (The following items were deleted from the chart) 09/11 13:13 13:08 Allergies: NKDA; ap3 ap3 13:13 13:08 Home Meds: Unknown; ap3 ap3 18:15 15:38 Telemetry/MedSurg (Inpatient) cp la1 18:15 15:38 cp la1 19:56 18:15 Intensive Care Unit la1 cg 19:56 18:15 la1 cg
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
[2021-09-11] MEDS ORDERED: LIDOCAINE VISCOUS 2% SOLN 15 ML UDC ONE (16:06)
[2021-09-11] MEDS ORDERED: CEFTRIAXONE 1000 MG/VIAL ONE (16:36)
[2021-09-11] MEDS ORDERED: AZITHROMYCIN 500 MG INJ IVPB ONE (16:36)
[2021-09-11] MEDS ORDERED: NA CHLORIDE 0.9% 50 ML ONE (16:37)
[2021-09-11] MEDS ORDERED: NA CHLORIDE 0.9% 250 ML ONE (16:37)
[2021-09-11] MEDS ORDERED: HYDROCORTISONE SUC 100 MG INJ ONE (16:43)
--- NOTE | 2021-09-11 16:46 | P.HP ---
Certification for Inpatient Patient admitted to: Observation With expected LOS: >2 Midnights Patient will require the following post-hospital care: None Practitioner: I am a practitioner with admitting privileges, knowledge of patient current condition, hospital course, and medical plan of care. Services: Services provided to patient in accordance with Admission requirements found in Title 42 Section 412.3 of the Code of Federal Regulations Patient History Date of Service: 09/11/21 Reason for admission: Body aches and urine frequency History of Present Illness: 61-year-old male past medical history of hypertension, diabetes mellitus, hyperlipidemia, depression, asthma history of overactive bladder presented with complaint of body aches chills as well as chest and back pain. Patient admits to urinary frequency since the last 5 days. He admits to cough but denies any sputum. He denies any headache or dizziness. He states he has had second dose of COVID vaccine. He denies any sick contact. On arrival in the ED he was noted with borderline low blood pressure with systolic in the 90s which further dropped to systolic in the 60s. He has been given IV fluid for resuscitation. His lactic acid is currently pending. He has been admitted for presumed sepsis. Chest x-ray shows mild right upper lobe infiltrate Allergies metformin Allergy (Verified 09/12/20 01:06) Shortness of breath Home Medications: Gabapentin [Neurontin] 800 mg PO TID 09/10/20 Hydrocodone 10/APAP 325 [[place] 10/325*] 1 tab PO QID 09/10/20 Tramadol HCl [Ultram] 50 mg PO TID 09/10/20 Citalopram [Celexa*] 40 mg PO DAILY 11/28/20 Lovastatin [Altoprev] 40 mg PO 1700 11/28/20 Metformin ER [Glucophage ER*] 500 mg PO DAILY 11/28/20 Pantoprazole [Protonix Tab*] 40 mg PO DAILY 11/28/20 Sitagliptin Phos/Metformin HCl [Janumet Xr 50-1,000 mg Tablet] 1 tab PO DAILY 11/28/20 Tamsulosin [Flomax*] 0.4 mg PO BEDTIME 11/28/20 buPROPion HCL [Bupropion HCl Sr] 150 mg PO BID 11/28/20 Glucerna Shake [Glucerna*] 237 ml PO BID #60 can 11/29/20 Thiamine HCl [Vitamin B-1*] 100 mg PO DAILY #30 tablet 11/29/20 Topiramate [Topamax*] 25 mg PO DAILY #30 tab 11/29/20 Minocycline HCl 100 mg PO DAILY #7 capsule 11/30/20 Sulfamethoxazole/Trimethoprim [Bactrim Ds Tablet] 1 each PO DAILY #7 tablet 11/30/20 - Past Medical/Surgical History Diabetic: Yes -: HTN -: DM -: HLD -: hepatitis c -: knee replacement Psychosocial/ Personal History: - Social History Smoking Status: Never smoker Smoking therapy provided: No Patient receptive to therapy: No Alcohol use: No CD- Drugs: No Caffeine use: Yes Place of Residence: Home Review of Systems 10-point ROS is otherwise unremarkable Physical Examination - Physical Exam General: Alert, In no apparent distress, Oriented x3, Mild distress HEENT: Atraumatic, Normocephalic, Mucous membr. moist/pink Neck: Supple, 2+ carotid pulse no bruit, JVD not distended Respiratory: Clear to auscultation bilaterally, Diminished Cardiovascular: No edema, Regular rate/rhythm, Normal S1 S2 Capillary refill: <2 Seconds Gastrointestinal: Normal bowel sounds, Soft and benign, Non-distended Musculoskeletal: No clubbing, No swelling Neurological: Normal gait, Normal strength at 5/5 x4 extr, Normal tone, Cranial nerves 3-12 intact - Studies Laboratory Data (last 24 hrs) 09/11/21 13:30: PT 10.0, INR 0.91 09/11/21 13:30: WBC 6.3, Hgb 10.9 L, Hct 32.8 L, Plt Count 201 09/11/21 13:30: Sodium 137, Potassium 4.5, BUN 34 H, Creatinine 2.13 H, Glucose 255 H, Magnesium 2.0, Total Bilirubin 0.3, AST 8 L, ALT 20, Alkaline Phosphatase 137 H, Lipase 79 Assessment and Plan - Plan CT chest and abdomenThree small areas of ground-glass opacification in the right upper lobe are present. This is a minimal finding but could indicate minimal pneumonitis. Atelectasis is possible. Mass lesion is not suspected. CT abdomen and pelvis shows no acute or emergent finding. Nonacute findings detailed in the body of the report Impression Acute kidney injury Right lower lobe pneumonia Sepsis with septic shock Diabetes mellitus Urine incontinence history Plan We will admit patient to inpatient status We will obtain sputum for culture and sensitivity Obtain blood culture and follow Start empirical antibiotics with Vanco/cefepime Obtain urine studies for fractional excretion of sodium Renal sonogram Start gentle IV fluid with normal saline Monitor creatinine trend Strict glycemic control Advance directivefull code Discharge Plan: Home - Advance Directives Does patient have a Living Will: No Does patient have a Durable POA for Healthcare: No - Code Status/Comfort Care Code Status Assessed: Yes Code Status: Full Code Physician Review: Patient Assessed, Agree with Above Assessment and Plan
[2021-09-11] MEDS ORDERED: ONDANSETRON 4 MG/2 ML VIAL IV PRN ×2 (16:48→16:53)
[2021-09-11] MEDS ORDERED: ALBUTEROL 2.5 MG/3 ML NEB SOL NEB PRN (16:48)
[2021-09-11] MEDS ORDERED: HYDRALAZINE HCL 20 MG/ML VIAL IV PRN (16:53)
[2021-09-11] MEDS ORDERED: guaiFENesin 100 MG/5 ML UCUP PO PRN (16:53)
[2021-09-11] MEDS ORDERED: VANCOMYCIN 1 GM in NA CHLORIDE 0.9% 250 ML IVPB SCH (16:55)
[2021-09-11] MEDS ORDERED: Oxycodone HCl/Acetaminophen 1 TAB TAB PO PRN (17:46)
[2021-09-11 17:47] LABS: Urine Blood Negative (Negative); Urine Glucose 2+ (Negative); Urine Protein Negative (Negative); Urine Specific Gravity >=1.030 (1.005-1.030); Urine pH 5.5 (5.0-7.0)
[2021-09-11] MEDS: NA CHLORIDE 0.9% 1,000 ML IV SCH (17:55)
[2021-09-11] MEDS: ENOXAPARIN 30 MG/0.3 ML SQ SCH (17:55)
[2021-09-11] MEDS: MIDODRINE HCL 5 MG TABLET PO SCH (18:00)
[2021-09-11 18:33] LABS: Urine Bacteria <20 /HPF (NONE SEEN); Urine RBC <5 /HPF (NONE SEEN)
[2021-09-11] MEDS ORDERED: ENOXAPARIN 30 MG/0.3 ML SQ ONE (18:54)
[2021-09-11] MEDS ORDERED: VANCOMYCIN 3 GM in NA CHLORIDE 0.9% 500 ML IVPB ONE (20:00)
[2021-09-11] MEDS ORDERED: MORPHINE 2 MG/ML SYR ONE (20:18)
[2021-09-11] MEDS: MORPHINE 2 MG/ML SYR IV PRN (20:23)
[2021-09-11] MEDS: INSULIN -REGULAR HUMAN 50 UNIT/0.5 ML ML SQ SCH (21:00)
[2021-09-11] MEDS ORDERED: FAMOTIDINE 20 MG TAB PO SCH (21:00)
[2021-09-11] MEDS ORDERED: CEFEPIME 1 GM in NA CHLORIDE 0.9% 100 ML IV SCH (21:00)
--- NOTE | 2021-09-11 21:02 | RAD REPORT ---
EXAM DESCRIPTION: US - Renal Ultrasound-Complete - 09/11/2021 8:44 pm CLINICAL HISTORY: ARF COMPARISON: Abdomen Pelvis Wo Contrast dated 12/05/2020 FINDINGS: The right kidney measures grossly 9.0 x 5.7 cm. The left kidney measures grossly 10.3 x 4 .6 cm. Renal cortical thickness and echogenicity are normal. No hydronephrosis or suspicious renal ma ss. Urinary bladder is contracted around a Velazquez catheter. IMPRESSION: No hydronephrosis or suspicious renal mass. No other significant findings.
[2021-09-11 21:48] LABS: Thyroid Stimulating Hormone 0.603 uIU/mL (0.360-3.740)
[2021-09-12] MEDS: MIDODRINE HCL 5 MG TABLET PO SCH ×2 (02:00→10:00)
[2021-09-12] MEDS ORDERED: INSULIN -REGULAR HUMAN 50 UNIT/0.5 ML ML ONE ×2 (02:11→08:39)
[2021-09-12] MEDS ORDERED: NA CHLORIDE 0.9% 0 ML IV ONE (02:11)
[2021-09-12] MEDS ORDERED: CEFEPIME 1 GM/VIAL ONE ×2 (02:11→08:40)
[2021-09-12 03:52] VITALS: BMI 54.3
[2021-09-12 03:59] LABS: Absolute Lymphocytes (CBC) 0.5 K/uL (0.7-4.9); Hematocrit 28.4 % (39.6-49.0); Lymphocytes % 8.1 % (15.3-44.8); MPV 9.6 fL (7.6-11.3); RBC Red Blood Cell Count 3.19 M/uL (4.33-5.43)
[2021-09-12 04:15] LABS: Albumin 2.7 g/dL (3.4-5.0); Bilirubin Total 0.2 mg/dL (0.2-1.0); Potassium 5.2 mmol/L (3.5-5.1); Protein, Total 5.7 g/dL (6.4-8.2)
[2021-09-12] MEDS: INSULIN -REGULAR HUMAN 50 UNIT/0.5 ML ML SQ SCH ×2 (07:30→11:30)
[2021-09-12] MEDS ORDERED: INFLUENZA VACCINE (for 6+ mo) 0.5 ML DOSE IMVAC ONE (08:00)
[2021-09-12] MEDS ORDERED: MORPHINE 2 MG/ML SYR ONE ×2 (08:38→13:21)
[2021-09-12] MEDS ORDERED: ASPIRIN EC 81 MG TAB PO ONE (08:38)
[2021-09-12] MEDS ORDERED: FAMOTIDINE 20 MG TAB ONE (08:38)
[2021-09-12] MEDS ORDERED: NA CHLORIDE 0.9% 1,000 ML ONE (08:40)
[2021-09-12] MEDS ORDERED: ENOXAPARIN 30 MG/0.3 ML SQ ONE (08:40)
[2021-09-12] MEDS ORDERED: NA CHLORIDE 0.9% 100 ML IV ONE (08:40)
[2021-09-12] MEDS: NA CHLORIDE 0.9% 1,000 ML IV SCH (08:55)
[2021-09-12] MEDS: MORPHINE 2 MG/ML SYR IV PRN ×2 (08:55→13:15)
[2021-09-12] MEDS: ENOXAPARIN 30 MG/0.3 ML SQ SCH (08:57)
[2021-09-12] MEDS ORDERED: ASPIRIN EC 81 MG TAB PO SCH (09:00)
[2021-09-12] MEDS ORDERED: FAMOTIDINE 20 MG TAB PO SCH (09:00)
[2021-09-12 09:33] LABS: Potassium 4.2 mmol/L (3.5-5.1)
--- NOTE | 2021-09-12 10:56 | P.DS ---
Admission Date: 09/11/21 Discharge Date: 09/12/21 Disposition: DC HOME/HOME HEALTH CARE Discharge Condition: FAIR Reason for Admission: Body aches and urine frequency Brief History of Present Illness: Patient is 61 years of age years of age metabolic syndrome presented with overactive bladder urinary frequency but no evidence of sepsis complains of some chest discomfort Hospital Course: On admission to the emergency room for observation he is doing well vital signs all stable Patient has chronic renal insufficiency no clinical evidence of sepsis no hydronephrosis nonspecific changes groundglass changes on his CT scan plan to discharge patient follow-up with primary care physician resume all his medication patient complained of urinary frequency of added low-dose oxybutynin 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 Vital Signs/Physical Exam: Temp Pulse Resp BP Pulse Ox 97.7 F 80 18 117/76 100 09/12/21 08:00 09/12/21 08:00 09/12/21 08:55 09/12/21 08:00 09/12/21 08:55 Laboratory Data at Discharge: WBC 6.2 K/uL (4.3-10.9) 09/12/21 03:21 Hgb 9.3 g/dL (13.6-17.9) L 09/12/21 03:21 Hct 28.4 % (39.6-49.0) L 09/12/21 03:21 Plt Count 171 K/uL (152-406) 09/12/21 03:21 PT 10.0 SECONDS (9.5-12.5) 09/11/21 13:30 INR 0.91 09/11/21 13:30 Sodium 141 mmol/L (136-145) 09/12/21 09:02 Potassium 4.2 mmol/L (3.5-5.1) 09/12/21 09:02 BUN 27 mg/dL (7-18) H 09/12/21 09:02 Creatinine 1.62 mg/dL (0.55-1.3) H 09/12/21 09:02 Glucose 188 mg/dL (74-106) H 09/12/21 09:02 Magnesium 2.0 mg/dL (1.8-2.4) 09/11/21 14:45 Total Bilirubin 0.2 mg/dL (0.2-1.0) 09/12/21 03:21 AST 8 U/L (15-37) L 09/12/21 03:21 ALT 16 U/L (12-78) 09/12/21 03:21 Alkaline Phosphatase 102 U/L (45-117) 09/12/21 03:21 Lipase 79 U/L (73-393) 09/11/21 13:30 Home Medications: Gabapentin [Neurontin] 800 mg PO TID 09/10/20 Hydrocodone 10/APAP 325 [[place] 10/325*] 1 tab PO QID 09/10/20 Tramadol HCl [Ultram] 50 mg PO TID 09/10/20 Citalopram [Celexa*] 40 mg PO DAILY 11/28/20 Lovastatin [Altoprev] 40 mg PO 1700 11/28/20 Metformin ER [Glucophage ER*] 500 mg PO DAILY 11/28/20 Pantoprazole [Protonix Tab*] 40 mg PO DAILY 11/28/20 Sitagliptin Phos/Metformin HCl [Janumet Xr 50-1,000 mg Tablet] 1 tab PO DAILY 11/28/20 Tamsulosin [Flomax*] 0.4 mg PO BEDTIME 11/28/20 buPROPion HCL [Bupropion HCl Sr] 150 mg PO BID 11/28/20 Glucerna Shake [Glucerna*] 237 ml PO BID #60 can 11/29/20 Thiamine HCl [Vitamin B-1*] 100 mg PO DAILY #30 tablet 11/29/20 Topiramate [Topamax*] 25 mg PO DAILY #30 tab 11/29/20 Minocycline HCl 100 mg PO DAILY #7 capsule 11/30/20 Sulfamethoxazole/Trimethoprim [Bactrim Ds Tablet] 1 each PO DAILY #7 tablet 11/30/20 Oxybutynin Chloride 5 mg PO DAILY #30 tablet 09/12/21 New Medications: Oxybutynin Chloride 5 mg PO DAILY #30 tablet Diet: Regular Followup: Veronica Awad FNP [Primary Care Provider] -
[2021-09-12 11:17] VITALS: O2SAT 97
[2021-09-12 12:54] VITALS: BP 123/72; TEMP 98.1
[2021-09-13] MEDS ORDERED: VANCOMYCIN 2 GM in NA CHLORIDE 0.9% 500 ML IVPB SCH (08:00)
--- NOTE | 2021-09-15 11:25 | EKG ---
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
== END 2021-09-12 13:34 | disposition home health service (06) ==
LOC: ER 12:31 → INTOOBSV 16:52 → ERHOLD 16:52
PROVIDERS: ADMIT Internal Medicine; ATTEND Internal Medicine
DX: R07.89 Other chest pain (principal); R91.8 Other nonspecific abnormal finding of lung field; N28.9 Disorder of kidney and ureter, unspecified; I10 Essential (primary) hypertension; E11.9 Type 2 diabetes mellitus without complications; E78.5 Hyperlipidemia, unspecified; F32.A Depression, unspecified; Z96.659 Presence of unspecified artificial knee joint; Z20.822 Contact with and (suspected) exposure to COVID-19
CPT/HCPCS: 93005; 87040 ×2; 85025 ×2; 80048 ×2; 36415; 83735 ×2; 85610; 82947 ×4; 80076; 83605; 84443; 84484; 83690; 80053; 84145; 83880; 71250; 74176; 71045; 76770; 51702; 99285; U0003; C9113; J0456; J1650 ×2; J3370; J2270 ×3; J7050; J7040 ×3; J7030 ×4; J1720; J2405; J0692; G0378 ×3; 81003; 81015

== ENCOUNTER 2022-02-21 06:35 | Emergency (ER) | payer OTHER ==
--- OUTSIDE RECORDS SUMMARY | 2022-02-21 06:39 | XMS REPORT | Continuity of Care Document ---
:1960 Author Organization [facility] t Address [address] [place] [address] Care Team Providers Name Role Phone Onur Hernandez MD Primary Care Physician [phone] Bhanu Kohler Attending Clinician Unavailable ILEANA PANDEY Attending Clinician Unavailable ILEANA PANDEY Attending Clinician Unavailable Onur Hernandez MD Attending Clinician Rafita Bui MD Attending Clinician Corey Lantigua MD Attending Clinician Payers Payer Name Policy Type Policy Number Effective Date Expiration Date [facility] [id number] 2017 DUAL COMPLETE HMO 00:00:00 [place]ICAID [place] [id number] 2015 00:00:00 Problems Condition Condition Condition Status Onset Resolution Last Treating Co mments Source Name Details Category Date Date Treatment Clinician Date Back pain Back pain Disease Active Uni vers 8-21 ity of 00:00: [place] 00 [facility] Degenerati Degenerati Disease Active 2017-06 U ezra on of on of 2-17 ity of lumbar lumbar 00:00: [place] interverte interverte 00 Me dical bral disc bral disc Bran ch 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 2-17 [place] Inflammati Inflammati Disease Active 2017-06 U nivers on of on of 2-17 [place] of sac[place] joint 00 [facility] Spinal Spinal Disease Active 2017-06 Univers stenosis stenosis 2-17 [place] [facility] Chronic Chronic Disease Active 2017-06 Univers pain pain 2-17 ity of disorder disorder 00:00: [place] 00 [facility] Allergies, Adverse Reactions, Alerts Allergy Allergy Status Severity Reaction(s) Onset Inactive Treating Comm ents Source Name Type Date Date Clinician NO KNOWN Drug Active Univers ALLERGIE Class ity of S [facility] Social History Social Habit Start Date Stop Date Quantity Comments Source History of Current smoker [place] of tobacco use [facility] Exposure to 2022-01-16 2022-01-26 Not sure [facility] SARS-CoV-2 00:00:00 13:36:00 [facility] (event) [place] Alcohol intake 2021-12-31 2021-12-31 Ex-drinker [facility] 00:00:00 00:00:00 (finding) [facility] Tobacco use and 2019-02-01 2019-02-01 Smokeless tobacco Un iversity of exposure 00:00:00 00:00:00 non-user [facility] [birth year] [facility]00[facility]00 [facility] Smoking Status Start Date Stop Date Source Ex-smoker 2019-02-01 00:00:00 2019-02-01 [facility]:00:00 [facility] Medications Ordered Filled Start Stop Current Ordering Indication Dosage Frequency Signature Comments Components Source Medication Medication Date Date Medication? Clinician (SIG) Name Name TOPIRAMATE 2021- No 50mg Take 50 mg Univers ORAL 01-26 by mouth ity of 14:03: 00:00 at [place] 47 :00 bedtime. Medical Branch tamsulosin 2021- No Take by Uni vers (FLOMAX) 01-26 mouth ity of 0.4 mg 24 14:02: 00:00 daily. [place] hr capsule 29 :00 [facility] traZODONE 2021- No 100mg Take 100 Un [place] (DESYREL) 8-15 08-15 mg by ity of 100 mg 14:02: 00:00 mouth at [place] tablet 19 :00 bedtime. Medical Branch topiramate 0 2021- No [id number] 50mg Take 1 Univers 50 mg 7-11 08-15 tablet by ity of tablet 00:00: 00:00 mouth at [place] 00 :00 bedtime. Medical Branch gabapentin 0 Yes 800mg Take 800 Un [place] (NEURONTIN) 5-13 mg by ity of 300 mg 13:57: mouth 3 [place] capsule 16 (three) Medical times Branch daily. atorvastati 0 Yes 10mg Take 10 mg Univers n (LIPITOR) 5-13 by mouth ity of 10 mg 13:57: at [place] tablet 16 bedtime. Medical Branch HYDROcodone Yes 1{tbl} Take 1 Un [place] -acetaminop 5-13 tablet by ity of hen (NORCO) 13:57: mouth [place] 10-325 mg 16 every 6 Medical tablet (six) Branch hours as needed. meloxicam Yes 15mg Take 15 mg Un [place] 15 mg 5-13 by mouth ity of tablet 13:57: daily. [place] [address] Medical Branch metFORMIN Yes 500mg Take 500 Uni vers 500 mg 5-13 mg by ity of tablet 13:57: mouth [place] 16 daily. Medical Branch pantoprazol Yes 40mg Take 40 mg Univers e 40 mg EC 5-13 by mouth ity o f tablet 13:57: daily. [place] [address] Medical Branch lovastatin Yes 40mg Take 40 mg U nivers 40 mg 5-13 by mouth ity of tablet 13:57: daily. [place] [address] Medical Branch mirtazapine 0 Yes 15mg Take 15 mg Univers 15 mg 5-13 by mouth ity of tablet 13:57: at [place] 16 bedtime. Medical Branch SITagliptin 0 Yes Take by Uni vers -metformin 5-13 mouth. ity of (JANUMET 13:57: Indication [place] as XR) 16 s: 2 tabs Medical 50-1,000 mg BID Branch per tablet BUPROPION 0 Yes 150mg Take 150 Uni vers HCL ORAL 5-13 mg by ity of 13:57: mouth. [place] [address] Indication Medical s: 2 Branch tablets BID cyclobenzap 0 Yes 10mg Take 10 mg Univers rine 10 mg 5-13 by mouth 3 ity of tablet 13:57: (three) [place] 16 times Medical daily. Branch gabapentin 0 Yes 800mg Take 800 Un [place] (NEURONTIN) 5-13 mg by ity of 300 mg 13:57: mouth 3 [place] capsule 16 (three) Medical times Branch daily. atorvastati 0 Yes 10mg Take 10 mg Univers n (LIPITOR) 5-13 by mouth ity of 10 mg 13:57: at [place] tablet 16 bedtime. Medical Branch HYDROcodone 0 Yes 1{tbl} Take 1 Un [place] -acetaminop 5-13 tablet by ity of hen (NORCO) 13:57: mouth [place] 10-325 mg 16 every 6 Medical tablet (six) Branch hours as needed. meloxicam 0 Yes 15mg Take 15 mg Un [place] 15 mg 5-13 by mouth ity of tablet 13:57: daily. [place] [address] Medical Branch metFORMIN 0 Yes 500mg Take 500 Uni vers 500 mg 5-13 mg by ity of tablet 13:57: mouth [place] 16 daily. Medical Branch pantoprazol 0 Yes 40mg Take 40 mg Univers e 40 mg EC 5-13 by mouth ity o f tablet 13:57: daily. [place] [address] Medical Branch lovastatin 0 Yes 40mg Take 40 mg U nivers 40 mg 5-13 by mouth ity of tablet 13:57: daily. [place] [address] Medical Branch mirtazapine 0 Yes 15mg Take 15 mg Univers 15 mg 5-13 by mouth ity of tablet 13:57: at [place] 16 bedtime. Medical Branch SITagliptin 0 Yes Take by Uni vers -metformin 5-13 mouth. ity of (JANUMET 13:57: Indication [place] as XR) 16 s: 2 tabs Medical 50-1,000 mg BID Branch per tablet BUPROPION 0 Yes 150mg Take 150 Uni vers HCL ORAL 5-13 mg by ity of 13:57: mouth. [place] [address] Indication Medical s: 2 Branch tablets BID cyclobenzap 0 Yes 10mg Take 10 mg Univers rine 10 mg 5-13 by mouth 3 ity of tablet 13:57: (three) [place] 16 times Medical daily. Branch gabapentin Yes 800mg Take 800 [place] (NEURONTIN) 5-13 mg by ity of 300 mg 13:57: mouth 3 [place] capsule 16 (three) Medical times Branch daily. atorvastati Yes 10mg Take 10 mg Univers n (LIPITOR) 5-13 by mouth ity of 10 mg 13:57: at [place] tablet 16 bedtime. Medical Branch HYDROcodone Yes 1{tbl} Take 1 Un [place] -acetaminop 5-13 tablet by ity of hen (NORCO) 13:57: mouth [place] 10-325 mg 16 every 6 Medical tablet (six) Branch hours as needed. meloxicam Yes 15mg Take 15 mg Un [place] 15 mg 5-13 by mouth ity of tablet 13:57: daily. [place] [address] Medical Branch metFORMIN Yes 500mg Take 500 Uni vers 500 mg 5-13 mg by ity of tablet 13:57: mouth [place] 16 daily. Medical Branch pantoprazol Yes 40mg Take 40 mg Univers e 40 mg EC 5-13 by mouth ity o f tablet 13:57: daily. [place] [address] Medical Branch lovastatin Yes 40mg Take 40 mg U nivers 40 mg 5-13 by mouth ity of tablet 13:57: daily. [place] [address] Medical Branch mirtazapine Yes 15mg Take 15 mg Univers 15 mg 5-13 by mouth ity of tablet 13:57: at [place] 16 bedtime. Medical Branch SITagliptin Yes Take by Uni vers -metformin 5-13 mouth. ity of (JANUMET 13:57: Indication [place] as XR) 16 s: 2 tabs Medical 50-1,000 mg BID Branch per tablet BUPROPION Yes 150mg Take 150 Uni vers HCL ORAL 5-13 mg by ity of 13:57: mouth. [place] 16 Indication Medical s: 2 Branch tablets BID cyclobenzap Yes 10mg Take 10 mg Univers rine 10 mg 5-13 by mouth 3 ity of tablet 13:57: (three) [place] 16 times Medical daily. Branch Vital Signs Vital Name Observation Time Observation Value Comments Source Systolic blood 2022-01-26 18:50:00 100 mm[Hg] Rjsonu huffman [facility] pressure [facility] Diastolic blood 2022-01-26 18:50:00 66 [facility]Hg[facility] pressure [facility] Heart rate 2022-01-26 18:49:00 91 /min [facility] Body height 2022-01-26 18:49:[address] [facility] Body weight 2022-01-26 18:49:[address] [facility] BMI 2022-01-26 18:49:00 31.93 kg/m2 [facility] Oxygen saturation 2022-01-26 18:49:00 97 /min [facility] in Arterial blood [facility] by Pulse oximetry Procedures Procedure Date / Time Performed Performing Clinician Sournegrita e POCT HEMOGLOBIN A1C 2022-01-26 00:00:00 Onur Hernandez [facility] Encounters Start End Encounter Admission Attending Care Care Encounter Source Date/Time Date/Time Type Type Clinicians Facility Department ID 2021-09-25 Outpatient Kohler, STLMLC STLMLC [id number] Common 14:10:00 Bhanu [id number] [facility] 2021-07-09 Outpatient Kohler, STLMLC STLMLC [id number] Common 13:53:25 Bhanu [id number] [facility] 2021-07-09 Outpatient Kohler, STLMLC STLMLC [id number] Common 13:15:22 Bhanu Mclaughlin16 [facility] 2021-07-09 Outpatient Kohler, STLMLC STLMLC [id number] Common 13:09:01 Bhanu Mclaughlin01 [facility] 2021-07-09 Outpatient Kohler, STLMLC STLMLC [id number] Common 13:07:45 Bhanu Banks26 [facility] 2021-07-09 Outpatient Kohler, STLMLC STLMLC [id number] Common 13:07:26 Bhanu Banks25 [facility] 2021-07-09 Outpatient Kohler, STLMLC STLMLC [id number] Common 12:57:00 Bhanu Beasley28 [facility] 2022-03-23 2022-03-23 Outpatient R ILEANA PANDEY [facility] [id number] Univers 14:30:00 14:30:00 ILEANA PANDEY [id number] [facility] 2022-03-23 2022-03-23 Outpatient R ILEANA PANDEY [facility] [id number] Univers 14:30:00 14:30:00 ILEANA PANDEY [facility] 2022-02-18 2022-02-18 Telephone [facility] [id number] [facility] 00:00:00 00:00:00 [facility] [id number] it y of [place] [id number] [place] as NATALIO?BLEA [id number] [address] MEDICAL OFFICE [facility] 2022-02-18 2022-02-18 Telephone [facility] [id number] [facility] 00:00:00 00:00:00 [facility] [id number] it y of [place] [id number] [place] as NATALIO?BLEA [id number] [address] OFFICE [facility] 2022-01-26 2022-01-26 Office [facility] [id number] Univers 14:00:00 14:15:00 Visit [facility] [id number] it y of [place] [id number] [place] NATALIO?BLEA [id number] [address] MEDICAL OFFICE [facility] 2019-02-01 2019-02-01 Emergency MazinbonillaRafita almanzar [facility] [id number] 16:31:58 22:14:00 Corey [place] [id number] [place] [id number] [place] [id number] Results Test Description Test Time Test Comments Results Result Comments Source POCT HEMOGLOBIN A1C TEST 2022-01-26 19:28:00 Test Item Value Reference Range Interpretation Comme nts POCT HBA1C (test code = 4548-4) 14.0 % 4-6 A Lab Interpretation (test code = 64875-1) Abnormal [facility]
[2022-02-21] MEDS ORDERED: DIAZEPAM 5 MG TABLET ONE (07:48)
[2022-02-21] MEDS ORDERED: ONDANSETRON 4 MG/2 ML VIAL ONE (07:49)
[2022-02-21] MEDS ORDERED: NA CHLORIDE 0.9% 500 ML ONE (07:49)
[2022-02-21] MEDS ORDERED: MORPHINE 4 MG/ML SYR ONE (07:49)
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
[2022-02-21 08:26] LABS: Absolute Lymphocytes (CBC) 1.7 K/uL (0.7-4.9); Hematocrit 38.7 % (39.6-49.0); Lymphocytes % 35.9 % (15.3-44.8); MCV 84.1 fL (80-100)
[2022-02-21 08:46] LABS: Albumin 3.5 g/dL (3.4-5.0); Bilirubin Direct 0.2 mg/dL (0-0.2); Bilirubin Total 0.3 mg/dL (0.2-1.0); Potassium 3.5 mmol/L (3.5-5.1); Protein, Total 7.4 g/dL (6.4-8.2)
[2022-02-21] MEDS ORDERED: INSULIN -REGULAR HUMAN 50 UNIT/0.5 ML ML ONE (09:12)
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
[2022-02-21 11:56] VITALS: TEMP 98.7; O2SAT 100
[2022-02-21 12:00] VITALS: BP 98/74
== END 2022-02-21 10:55 | disposition home or self-care (01) ==
LOC: ER 06:35
DX: S16.1XXA Strain of muscle, fascia and tendon at neck level, initial encounter (principal); S29.012A Strain of muscle and tendon of back wall of thorax, initial encounter; M54.50 Low back pain, unspecified; E10.65 Type 1 diabetes mellitus with hyperglycemia; V49.40XA Driver injured in collision with unspecified motor vehicles in traffic accident, initial encounter
CPT/HCPCS: 85025; 80048; 36415; 80076; 83690; 70450; 71250; 72125; 96375; 96372; 96374; 99284; J1815; J7040; J2405

== ENCOUNTER 2022-03-30 07:04 | Inpatient (IN) | payer OTHER ==
--- OUTSIDE RECORDS SUMMARY | 2022-03-30 07:16 | XMS REPORT | Continuity of Care Document ---
:1960 Author Organization [facility] t Address [address] [place] [address] Care Team Providers Name Role Phone Juan Carlos Escalera MD Primary Care Physician [phone] Bhanu Kohler Attending Clinician Unavailable ALEXANDRA PANDEY Attending Clinician Unavailable ALEXANDRA PANDEY Attending Clinician Unavailable Lab, Ang - Db Attending Clinician Unavailable Juan Carlos Escalera MD Attending Clinician JUAN CARLOS ESCALERA Attending Clinician Unavailable Doctor Unassigned, [place] Attending Clinician Unavailable Maddie Russo PA-C Attending Clinician Yancy Blair MD Attending Clinician YANCY BLAIR Attending Clinician Unavailable MADDIE RUSSO Attending Clinician Unavailable CHLOE STEWART Attending Clinician Unavailable Rafita Bui MD Attending Clinician Corey Lantigua MD Attending Clinician YANCY BLAIR Admitting Clinician Unavailable Payers Payer Name Policy Type Policy Number Effective Date Expiration Date S freeman [facility] [id number] 2022 DUAL COMP HMO D 00:00:00 [facility] MEDICAID OF [id number] 2015 [place] 00:00:00 [facility] Dual 53 [id number] 2020 [facility] Complete MCR 00:00:00 - [facility] Problems Condition Condition Condition Status Onset Resolution Last Treating Co mments Source Name Details Category Date Date Treatment Clinician Date Back pain Back pain Disease Active Uni vers 8-21 ity of 00:00: [address] Branch 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 00:00: [place] interverte interverte 00 Me dical bral disc bral disc Bran ch 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 2-17 [place] [facility] Inflammati Inflammati Disease Active 2017-06 U nivers on of on of 2-17 ity of sacroiliac [place] joint 00 [facility] Spinal Spinal Disease Active 2017-06 Univers stenosis stenosis 2-17 ity of [place] [facility] Branch Chronic Chronic Disease Active 2017-06 Univers pain pain 2-17 ity of disorder disorder 00:00: [address] [id number] Posthitis Problem Comm on [facility] [id number] OAB Problem Common (overactiv Spirit e bladder) - [facility] Kidney Calcium Problem Common stone kidney [facility] stones - [facility] [id number] Urge Problem Common incontinen Spirit ce - [facility] [id number] BPH loc w Problem Com mon urin Spirit obs/LUTS - [facility] Allergies, Adverse Reactions, Alerts Allergy Allergy Status Severity Reaction(s) Onset Inactive Treating Comm ents Source Name Type Date Date Clinician NO KNOWN Drug Active Univers ALLERGIE Class ity of S [facility] Social History Social Habit Start Date Stop Date Quantity Comments Source Sex Assigned At [facility] carlos - [facility] History of [facility] - Tobacco Use [facility] Exposure to 2022-03-13 2022-03-23 Not sure University of SARS-CoV-2 00:00:00 14:30:00 [place] [facility] (event) Branch Alcohol intake 2021-12-31 2021-12-31 Ex-drinker University 00:00:00 00:00:00 (finding) [facility] Tobacco use and 2019-02-01 2019-02-01 Smokeless tobacco Un iversity of exposure 00:00:00 00:00:00 non-user [facility] Smoking Status Start Date Stop Date Source Ex-smoker 2019-02-01 00:00:00 2019-02-01 00:00:00 [facility] Medications Ordered Filled Start Stop Current Ordering Indication Dosage Frequency Signature Comments Components Source Medication Medication Date Date Medication? Clinician (SIG) Name Name Proscar 5 Proscar 5 2021-06- No 1{table QD Proscar 5 MG MG 0-12 10-07 t} MG 00:00: 00:00 00 :00 Myrbetriq Myrbetriq 2021-06- No 1{table QD Myrbetriq 25 MG 25 MG 0-12 05-10 t} 25 MG 00:00: 00:00 00 :00 glipiZIDE 2021-06 Yes [id number] 10mg Take 1 Un elliott XL 10 mg 24 0-10 tablet by ity of hr tablet 00:00: mouth [place] 00 daily with Medical breakfast. Branch lovastatin 2021-06- No 40mg Take 40 mg Univers 40 mg 0-04 10-04 by mouth ity of tablet 12:53: 00:00 daily. [place] 29 :00 Medical Branch LOVASTATIN 2021-06 Yes [id number] TAKE 1 U nivers 40 mg 0-04 TABLET BY ity of tablet 00:00: MOUTH WITH [place] 00 EVENING Medical MEAL 90 Branch LOVASTATIN 2021-06 Yes [id number] TAKE 1 U nivers 40 mg 0-04 TABLET BY ity of tablet 00:00: MOUTH WITH [place] 00 EVENING Medical MEAL 90 Branch LOVASTATIN 2021-06 Yes [id number] TAKE 1 U nivers 40 mg 0-04 TABLET BY ity of tablet 00:00: MOUTH WITH [place] 00 EVENING Medical MEAL 90 Branch TOPIRAMATE 2021- No 50mg Take 50 mg Univers ORAL 8-15 08-15 by mouth ity of 14:03: 00:00 at [place] 47 :00 bedtime. Medical Branch tamsulosin 2021- No Take by Uni vers (FLOMAX) 8-15 08-15 mouth ity of 0.4 mg 24 14:02: 00:00 daily. [place] hr capsule 29 :00 Medical Branch traZODONE 2021- No 100mg Take 100 Un elliott (DESYREL) 8-15 08-15 mg by ity of 100 mg 14:02: 00:00 mouth at [place] tablet 19 :00 bedtime. Medical Branch Tamsulosin Tamsulosin 2022- No 2{capsu QD Tamsulosin HCl 0.4 MG HCl 0.4 MG 7-13 04-09 les} HCl 0.4 MG 00:00: 00:00 00 :00 topiramate 2021- No [id number] 50mg Take 1 Univers 50 mg 711 08-15 tablet by ity of tablet 00:00: 00:00 mouth at [place] 00 :00 bedtime. Medical Branch gabapentin Yes 800mg Take 800 Un [...] by mouth ity of tablet 13:57: daily. [address] Branch metFORMIN 0 Yes 500mg Take 500 Uni vers 500 mg 5-13 mg by ity of tablet 13:57: mouth [place] 16 daily. Medical Branch pantoprazol 0 Yes 40mg Take 40 mg Univers e 40 mg EC 5-13 by mouth ity o f tablet 13:57: daily. [address] Branch lovastatin 0 Yes 40mg Take 40 mg U nivers 40 mg 5-13 by mouth ity of tablet 13:57: daily. [address] Branch mirtazapine 2022-0 Yes 15mg Take 15 mg Univers 15 mg 5-13 by mouth ity of tablet 13:57: at [place] 16 bedtime. Medical Branch SITagliptin Yes Take by Uni vers -metformin 5-13 mouth. ity of (JANUMET 13:57: Indication [place] as XR) 16 s: 2 tabs Medical 50-1,000 mg BID Branch per tablet BUPROPION Yes 150mg Take 150 Uni vers HCL ORAL 5-13 mg by ity of 13:57: mouth. [place] [address] Indication Medical s: 2 Branch tablets BID cyclobenzap Yes 10mg Take 10 mg Univers rine 10 mg 5-13 by mouth 3 ity of tablet 13:57: (three) [place] 16 times Medical daily. Branch gabapentin Yes [...] by mouth ity of tablet 13:57: daily. [place] [address] Medical Branch metFORMIN Yes 500mg Take 500 Uni vers 500 mg 5-13 mg by ity of tablet 13:57: mouth [place] 16 daily. Medical Branch pantoprazol Yes 40mg Take 40 mg Univers e 40 mg EC 5-13 by mouth ity o f tablet 13:57: daily. [place] [address] Medical Branch lovastatin Yes 40mg Take 40 mg U nivers 40 mg 5-13 by mouth ity of tablet 13:57: daily. [place] [address] Medical Branch mirtazapine Yes 15mg Take 15 mg Univers 15 mg 5-13 by mouth ity of tablet 13:57: at [place] 16 bedtime. Medical Branch SITagliptin Yes Take by Uni vers -metformin 5-13 mouth. ity of (JANUMET 13:57: Indication [place] as XR) 16 s: 2 tabs Medical 50-1,000 mg BID Branch per tablet BUPROPION Yes 150mg Take 150 Uni vers HCL ORAL 5-13 mg by ity of 13:57: mouth. [place] [address] Indication Medical s: 2 Branch tablets BID cyclobenzap Yes 10mg Take 10 mg Univers rine 10 mg 5-13 by mouth 3 ity of tablet 13:57: (three) [place] 16 times Medical daily. Branch gabapentin Yes [...] by mouth ity of tablet 13:57: daily. [place] [address] Medical Branch metFORMIN Yes 500mg Take 500 Uni vers 500 mg 5-13 mg by ity of tablet 13:57: mouth [place] 16 daily. Medical Branch pantoprazol Yes 40mg Take 40 mg Univers e 40 mg EC 5-13 by mouth ity o f tablet 13:57: daily. [place] [address] Medical Branch lovastatin Yes 40mg Take 40 mg U nivers 40 mg 5-13 by mouth ity of tablet 13:57: daily. [place] [address] Medical Branch mirtazapine Yes 15mg Take 15 mg Univers 15 mg 5-13 by mouth ity of tablet 13:57: at [place] 16 bedtime. Medical Branch SITagliptin Yes Take by Uni vers -metformin 5-13 mouth. ity of (JUNUMET 13:57: Indication [place] as XR) 16 s: 2 tabs Medical 50-1,000 mg BID Branch per tablet BUPROPION Yes 150mg Take 150 Uni vers HCL ORAL 5-13 mg by ity of 13:57: mouth. [place] [address] Indication Medical s: 2 Branch tablets BID cyclobenzap Yes 10mg Take 10 mg Univers rine 10 mg 5-13 by mouth 3 ity of tablet 13:57: (three) [place] 16 times Medical daily. Branch gabapentin Yes [...] by mouth ity of tablet 13:57: daily. [place] [address] Medical Branch metFORMIN Yes 500mg Take 500 Uni vers 500 mg 5-13 mg by ity of tablet 13:57: mouth [place] 16 daily. Medical Branch pantoprazol Yes 40mg Take 40 mg Univers e 40 mg EC 5-13 by mouth ity o f tablet 13:57: daily. [place] [address] Medical Branch lovastatin Yes 40mg Take 40 mg U nivers 40 mg 5-13 by mouth ity of tablet 13:57: daily. [place] [address] Medical Branch mirtazapine Yes 15mg Take 15 mg Univers 15 mg 5-13 by mouth ity of tablet 13:57: at [place] 16 bedtime. Medical Branch SITagliptin Yes Take by Uni vers -metformin 5-13 mouth. ity of (JANUMET 13:57: Indication [place] as XR) 16 s: 2 tabs Medical 50-1,000 mg BID Branch per tablet BUPROPION Yes 150mg Take 150 Uni vers HCL ORAL 5-13 mg by ity of 13:57: mouth. [place] [address] Indication Medical s: 2 Branch tablets BID cyclobenzap Yes 10mg Take 10 mg Univers rine 10 mg 5-13 by mouth 3 ity of tablet 13:57: (three) [place] 16 times Medical daily. Branch gabapentin Yes [...] by mouth ity of tablet 13:57: daily. [place] [address] Medical Branch metFORMIN Yes 500mg Take 500 Uni vers 500 mg 5-13 mg by ity of tablet 13:57: mouth [place] 16 daily. Medical Branch pantoprazol Yes 40mg Take 40 mg Univers e 40 mg EC 5-13 by mouth ity o f tablet 13:57: daily. [place] [address] Medical Branch lovastatin 0 Yes 40mg Take 40 mg U nivers 40 mg 5-13 by mouth ity of tablet 13:57: daily. [place] [address] Medical Branch mirtazapine 0 Yes 15mg Take 15 mg Univers 15 mg 5-13 by mouth ity of tablet 13:57: at [place] 16 bedtime. Medical Branch SITagliptin Yes Take by Uni vers -metformin 5-13 mouth. ity of (JANUMET 13:57: Indication [place] as XR) 16 s: 2 tabs Medical 50-1,000 mg BID Branch per tablet BUPROPION 0 Yes 150mg Take 150 Uni vers HCL ORAL 5-13 mg by ity of 13:57: mouth. [place] 16 Indication Medical s: 2 Branch tablets [...] by mouth ity of tablet 13:57: daily. [place] [address] Medical Branch metFORMIN 0 Yes 500mg Take 500 Uni vers 500 mg 5-13 mg by ity of tablet 13:57: mouth [place] 16 daily. Medical Branch pantoprazol 0 Yes 40mg Take 40 mg Univers e 40 mg EC 5-13 by mouth ity o f tablet 13:57: daily. [place] [address] Medical Branch lovastatin 0 Yes 40mg Take 40 mg U nivers 40 mg 5-13 by mouth ity of tablet 13:57: daily. [place] [address] Medical Branch mirtazapine 0 Yes 15mg Take [...] 5-13 mg by ity of 13:57: mouth. [place] [address] Indication Medical s: 2 Branch tablets BID cyclobenzap 0 Yes 10mg Take 10 mg Univers rine 10 mg 5-13 by mouth 3 ity of tablet 13:57: (three) [place] 16 times Medical daily. Branch gabapentin 0 [...] by mouth ity of tablet 13:57: daily. [place] [address] Medical Branch metFORMIN Yes 500mg Take 500 Uni vers 500 mg 5-13 mg by ity of tablet 13:57: mouth [place] 16 daily. Medical Branch pantoprazol Yes 40mg Take 40 mg Univers e 40 mg EC 5-13 by mouth ity o f tablet 13:57: daily. [place] [address] Medical Branch mirtazapine Yes 15mg Take 15 mg Univers 15 mg 5-13 by mouth ity of tablet 13:57: at [place] 16 bedtime. Medical Branch SITagliptin Yes Take by Uni vers -metformin 5-13 mouth. ity of (JANUMET 13:57: Indication [place] as XR) 16 s: 2 tabs Medical 50-1,000 mg BID Branch per tablet BUPROPION Yes 150mg Take 150 Uni vers HCL ORAL 5-13 mg by ity of 13:57: mouth. [place] [address] Indication Medical s: 2 Branch tablets BID cyclobenzap Yes 10mg Take 10 mg Univers rine 10 mg 5-13 by mouth 3 ity of tablet 13:57: (three) [place] 16 times Medical daily. Branch gabapentin Yes [...] tablet (six) Branch hours as needed. meloxicam 2021-0 Yes 15mg Take 15 mg Un [place] 15 mg 5-13 by mouth ity of tablet 13:57: daily. [place] [address] Medical Branch metFORMIN 0 Yes 500mg Take 500 Uni vers 500 mg 5-13 mg by ity of tablet 13:57: mouth [place] 16 daily. Medical Branch pantoprazol 0 Yes 40mg Take 40 mg Univers e 40 mg EC 5-13 by mouth ity o f tablet 13:57: daily. [place] [address] Medical Branch mirtazapine 0 Yes 15mg Take [...] 5-13 mg by ity of 13:57: mouth. [place] 16 Indication Medical s: 2 Branch tablets BID cyclobenzap 0 Yes 10mg Take 10 mg Univers rine 10 mg 5-13 by mouth 3 ity of tablet 13:57: (three) [place] 16 times Medical daily. Branch gabapentin 0 Yes 800mg Take 800 Un [place] (NEURONTIN) 5-13 mg by ity of 300 mg 13:57: mouth 3 [place] capsule 16 (three) Medical times Branch daily. atorvastati 2021-0 Yes 10mg Take 10 mg Univers n (LIPITOR) 5-13 by mouth ity of 10 mg 13:57: at [place] tablet 16 bedtime. Medical Branch HYDROcodone 0 Yes 1{tbl} Take 1 Un elliott -acetaminop 5-13 tablet by ity of hen (NORCO) 13:57: mouth [place] 10-325 mg 16 every 6 Medical tablet (six) Branch hours as needed. meloxicam 2021-0 Yes 15mg Take 15 mg Un [place] 15 mg 5-13 by mouth ity of tablet 13:57: daily. [place] [address] Medical Branch metFORMIN 2021-0 Yes 500mg Take 500 Uni vers 500 mg 5-13 mg by ity of tablet 13:57: mouth [place] 16 daily. Medical Branch pantoprazol Yes 40mg Take 40 mg Univers e 40 mg EC 5-13 by mouth ity o f tablet 13:57: daily. [place] [address] Medical Branch mirtazapine Yes 15mg Take 15 mg Univers 15 mg 5-13 by mouth ity of tablet 13:57: at [place] 16 bedtime. Medical Branch SITagliptin Yes Take by Uni vers -metformin 5-13 mouth. ity of (JANUMET 13:57: Indication [place] as XR) 16 s: 2 tabs Medical 50-1,000 mg BID Branch per tablet BUPROPION Yes 150mg Take 150 Uni vers HCL ORAL 5-13 mg by ity of 13:57: mouth. [place] Indication Medical s: 2 Branch tablets BID cyclobenzap Yes 10mg Take 10 mg Univers rine 10 mg 5-13 by mouth 3 ity of tablet 13:57: (three) [place] [address] times Medical daily. Branch Tamsulosin Tamsulosin 2021- No 1{capsu QD Tamsulosin HCl 0.4 MG HCl 0.4 MG 10-13 le} HCl 0.4 MG 00:00: 00:00 00 :00 Meloxicam Meloxicam No 1{table QD Meloxicam 15 MG 15 MG t} 15 MG Janumet XR Janumet XR No 1{table BID Janumet XR 100mg/1000m 100mg/1000m t} 100mg/1000 g g mg Cyclobenzap Cyclobenzap No 1{table TID Cyclobenza rine HCl 10 rine HCl 10 t_as_ne willow HCl MG MG eded} 10 MG Citalopram Citalopram No .5{tabl QD Citalopram Hydrobromid Hydrobromid et} Hydrobromi e 40 MG e 40 MG de 40 MG Gabapentin Gabapentin No 1{table BID Gabapentin 800 MG 800 MG t} 800 MG buPROPion buPROPion No 2{table BID buPROPion HCl 75 MG HCl 75 MG ts} HCl 75 MG Mirtazapine Mirtazapine No 1{table QD Mirtazapin 15 MG 15 MG t_at_be e 15 MG dtime} Pantoprazol Pantoprazol No 1{table QD Pantoprazo e Sodium 40 e Sodium 40 t} le Sodium MG MG 40 MG Vital Signs Vital Name Observation Time Observation Value Comments Source height 2022-03-25 10:00:00 61 [in_i] [facility] weight 2022-03-25 10:00:00 172 [lb_av] [facility] temperature 2022-03-25 10:00:00 98.1 [degF] [facility] bmi 2022-03-25 10:00:00 32.5 kg/m2 [facility] oximetry 2022-03-25 10:00:00 96 % [facility] respiratory rate 2022-03-25 10:00:00 16 /min Comm on [facility] blood pressure 2022-03-25 10:00:00 123 mm[Hg] [facility] - systolic [facility] blood pressure 2022-03-25 10:00:00 73 mm[Hg] [facility] diastolic [facility] Systolic blood 2022-03-11 21:08:00 111 mm[Hg] Univer sity [facility] Diastolic blood 2022-03-11 21:08:00 74 mm[Hg] Unive rsity of [facility] Heart rate 2022-03-11 21:08:00 84 /min [facility] Body height 2022-03-11 21:08:00 154.9 cm [facility] Body weight 2022-03-11 21:08:00 77.111 kg [facility] BMI 2022-03-11 21:08:00 32.12 kg/m2 [facility] Systolic blood 2022-01-26 18:50:00 100 mm[Hg] Univer sity of [facility] Diastolic blood 2022-01-26 18:50:00 66 mm[Hg] Unive rsity of [facility] Heart rate 2022-01-26 18:49:00 91 /min [facility] Body height 2022-01-26 18:49:00 154.9 cm [facility] Body weight 2022-01-26 18:49:00 76.658 kg [facility] BMI 2022-01-26 18:49:00 31.93 kg/m2 [facility] Oxygen saturation in 2022-01-26 18:49:00 97 /min University Arterial blood by [facility] Pulse oximetry Branch Procedures Procedure Date / Time Performed Performing Clinician Sour e EXTERNAL PROVIDER 2022-03-10 05:01:00 Doctor Unassigned, No Univ [facility] of [place] RECORDS Name Medical Branch POCT HEMOGLOBIN A1C 2022-01-26 00:00:00 Juan Carlos Escalera [facility] Encounters Start End Encounter Admission Attending Care Care Encounter Source Date/Time Date/Time Type Type Clinicians Facility Department ID 2022-03-26 Outpatient Kohler, STLMLC STLMLC [id number] Common 14:10:01 Bhanu [facility] 2022-03-25 Outpatient Kohler, STLMLC STLMLC [id number] Common 10:07:01 Bhanu [id number] [facility] 2021-09-25 Outpatient Kohler, STLMLC STLMLC [id number] Common 14:10:00 Bhanu 83559 [facility] 2021-07-09 Outpatient Kohler, STLMLC STLMLC [id number] Common 13:53:25 Bhanu 76323 [facility] 2021-07-09 Outpatient Kohler, STLMLC STLMLC [id number] Common 13:15:22 Bhanu 02175 [facility] 2021-07-09 Outpatient Kohler, STLMLC STLMLC [id number] Common 13:09:01 Bhanu 10821 [facility] 2021-07-09 Outpatient Kohler, STLMLC STLMLC [id number] Common 13:07:45 Bhanu 37441 [facility] 2021-07-09 Outpatient Kohler, STLMLC STLMLC [id number] Common 13:07:26 Bhanu 26429 [facility] 2021-07-09 Outpatient Kohler, STLMLC STLMLC [id number] Common 12:57:00 Bhanu [id number] [facility] 2022-07-01 2022-07-01 Outpatient R ALEXANDRA PANDEY [facility] [id number] Univers 10:00:00 10:00:00 ALEXANDRA PANDEY [facility] 2022-03-25 2022-03-25 OFFICE [facility] [id number] Co mmon 00:00:00 00:00:00 VISIT EST Spir it PT LEVEL 3 - [facility] 2022-03-23 2022-03-23 Permit Specialist Lab, Ang - [facility] 1.2.840.1 [id number] Univers 15:30:00 15:45:00 Visit Alexandra Pandey [facility] [id number] it y of [place] [id number] [place] as NATALIO?BLEA [id number] [facility] [address] [facility] OFFICE [facility] 2022-03-23 2022-03-23 Outpatient R ALEXANDRA PANDEY [facility] [id number] Univers 15:30:00 15:30:00 [facility] 2022-03-19 2022-03-19 Telephone [facility] 1.2.840.114 [id number] Univers 00:00:00 00:00:00 [facility] [id number] it y of [place] [id number] [place] as NATALIO?BLEA [id number] [facility] [address] [facility] [facility] OFFICE [facility] 2022-03-17 2022-03-17 Refill [facility] 1.2.840.114 [id number] Univers 00:00:00 00:00:00 Juan Carlos HEALTH [id number] it y of [place] [id number] [place] as NATALIO?BLEA [id number] [address] MEDICAL OFFICE [facility] 2022-03-11 2022-03-11 Office [facility] 1.2.840.114 [id number] Univers 16:00:00 16:15:00 Visit [facility] [id number] it y of [place] [id number] [place] as NATALIO?BLEA [id number] Ia alvino [address] MEDICAL OFFICE BUILDING 2022-03-11 2022-03-11 Outpatient R LALI [facility] [id number] Univers 16:00:00 16:00:00 JUAN CARLOS [facility] 2022-03-10 2022-03-10 Orders Doctor EMMANUEL 1.2.840.114 [id number] Univers 00:00:00 00:00:00 Only Unassigned, SUSAN [id number] ity of [place] [facility] [id number] [place] as [id number] [address] 2022-02-18 2022-02-18 Telephone [facility] 1.2.840.114 [id number] Univers 00:00:00 00:00:00 [facility] [id number] it y of [place] 4.2.7.2.686 [place] as NATALIO?BLEA [id number] [address] OFFICE [facility] 2022-02-18 2022-02-18 Telephone [facility] 1.2.840.114 [id number] Univers 00:00:00 00:00:00 [facility] [id number] it y of [place] 4.2.7.2.686 [place] as NATALIO?BLEA [id number] [address] OFFICE [facility] 2022-01-26 2022-01-26 Office [facility] 1.2.840.114 [id number] Univers 14:00:00 14:15:00 Visit [facility] [id number] it y of [place] 4.2.7.2.686 [place] as NATALIO?BLEA [id number] [address] MEDICAL OFFICE [facility] 2022-01-26 2022-01-26 Outpatient Gaurav ESCALERA [facility] [id number] Univers 14:00:00 14:00:00 JUAN CARLOS green [facility] 2022-01-26 2022-01-26 Outpatient Gaurav ESCALERA [facility] [id number] Univers 14:00:00 14:00:00 JUAN CARLOS [facility] 2022-01-26 2022-01-26 Outpatient R LALI [facility] [id number] Univers 13:15:00 13:15:00 JUAN CARLOS ity [facility] 2021-12-31 2021-12-31 [facility] 1.2.840.114 [id number] Univers 00:00:00 00:00:00 Management Maddie AGATHABANNER [id number] ity of [facility] [id number] [place] PROF[place] [id number] [address] 2021-12-30 2021-12-30 [facility] 1.2.840.114 [id number] Univers 00:00:00 00:00:00 Management Maddie HEALTH [id number] ity of [place] 4.2.7.2.686 [place] as NATALIO?BLEA [id number] [address] MEDICAL OFFICE [facility] 2021-12-24 2021-12-24 [facility] BRIAN Blair 1.2.840.114 [id number] Univers 15:44:00 23:59:00 Encounter Yancy Arguelles [id number] ity of [facility] 4.2.7.2.686 [place] as [id number] [address] 2021-12-24 2021-12-24 [facility] ACO [id number] Univers 00:00:00 23:59:00 YANCY green [facility] 2021-12-22 2021-12-22 Outpatient R KARAN [facility] [id number] Univers 13:00:00 14:19:55 MADDIE ity [facility] 2021-12-22 2021-12-22 Office [facility] 1.2.840.114 [id number] Univers 13:00:00 14:19:55 Visit Maddie HEALTH [id number] it y of [place] 4.2.7.2.686 [place] as NATALIO?BLEA [id number] [address] MEDICAL OFFICE [facility] 2021-12-19 2021-12-19 Outpatient R PAT [facility] [id number] Univers 15:30:00 15:30:00 CHLOE noheminayla [facility] 2021-11-01 2021-11-01 Orders Doctor EMMANUEL 1.2.840.114 [id number] Univers 00:00:00 00:00:00 Only Unassigned, SUSAN [id number] ity of [place] [facility] [id number] Cullen as [id number] [address] 2021-10-24 2021-10-24 Office Lali [facility] 1.2.840.114 [id number] Univers 13:30:00 14:00:00 Visit [facility] [id number] it y of [place] 4.2.7.2.686 C[place] as NATALIO?BLEA [id number] [address] MEDICAL OFFICE BUILDING 2021-10-24 2021-10-24 [facility] [id number] [facility] 13:30:00 13:30:00 JUAN CARLOS green [facility] 2021-10-24 2021-10-24 Orders Doctor EMMANUEL 1.2.840.114 [id number] Univers 00:00:00 00:00:00 Only Unassigned, SUSAN [id number] ity of [place] [facility] 4.2.7.2.686 [place] as [phone] [address] 2019-02-01 2019-02-01 Emergency MazinbonillaRafita almanzar [facility] [id number] 16:31:58 22:14:00 Corey Lantigua [id number] [place] [id number] [place] [phone] [id number] Results Test Description Test Time Test Comments Results Result Comments Source POCT HEMOGLOBIN A1C TEST 2022-01-26 19:28:00 Test Item Value Reference Range Interpretation Comme nts POCT HBA1C (test code = 4548-4) 14.0 % 4-6 A Lab Interpretation (test code = 06386-5) Abnormal [facility]
[2022-03-30] MEDS ORDERED: KETOROLAC 30 MG/ML INJ ONE (08:06)
[2022-03-30] MEDS ORDERED: NA CHLORIDE 0.9% 1,000 ML ONE ×3 (08:06→18:16)
[2022-03-30 08:23] LABS: Absolute Lymphocytes (CBC) 1.7 K/uL (0.7-4.9); Hematocrit 41.1 % (39.6-49.0); Lymphocytes % 19.7 % (15.3-44.8); MCV 87.4 fL (80-100); MPV 8.9 fL (7.6-11.3)
--- NOTE | 2022-03-30 08:39 | RAD REPORT ---
EXAM DESCRIPTION: US - Abdomen Exam Limited - 03/30/2022 8:17 am CLINICAL HISTORY: Abdominal pain. COMPARISON: None. FINDINGS: The gallbladder wall is not thickened. A gallstone is not seen. The biliary tree is normal caliber. IMPRESSION: Unremarkable gallbladder ultrasound.
[2022-03-30 08:43] LABS: Albumin 3.7 g/dL (3.4-5.0); Bilirubin Total 0.6 mg/dL (0.2-1.0); Potassium 3.9 mmol/L (3.5-5.1); Troponin High Sensitivity 6.6 pg/mL (<58.9)
[2022-03-30] MEDS ORDERED: NALOXONE 0.4 MG/ML VIAL ONE (10:02)
[2022-03-30] MEDS ORDERED: NA CHLORIDE 0.9% 500 ML ONE ×2 (10:02→22:19)
[2022-03-30] MEDS ORDERED: NALOXONE HCL 2 MG/2 ML VIAL ONE (11:12)
[2022-03-30 11:44] LABS: SARS-CoV-2 Antigen Rapid Res Negative (Negative)
[2022-03-30 13:49] LABS: Potassium 3.6 mmol/L (3.5-5.1)
--- NOTE | 2022-03-30 14:08 | RAD REPORT ---
EXAM DESCRIPTION: CT - Abdomen Pelvis Wo Contrast - 03/30/2022 2:00 pm CLINICAL HISTORY: Abdominal pain. abd pain COMPARISON: Abdomen Pelvis Wo Contrast dated 12/05/2020 TECHNIQUE: CT imaging of the abdomen and pelvis was performed without contrast. Solid organ, bowel a nd vascular assessment is limited due to lack of IV and oral contrast. All CT scans are performed using dose optimization technique as appropriate and may include automated exposure control or mA/KV adjustment according to patient size. FINDINGS: The lower lung calvert are clear. The liver, spleen, pancreas, adrenal glands and kidneys are within normal limits for a limited non-co ntrast examination. No bowel obstruction, free air, free fluid or abscess. There is mild inflammation surrounding the cec um with small adjacent lymph nodes present. Pneumatosis may also be present in the region of the cecu m. Mild sigmoid diverticulosis. The appendix is normal. Small fat containing left inguinal hernia. The osseous structures are within normal limits. IMPRESSION: Mild inflammation is seen surrounding the cecum several mildly prominent lymph nodes pre sent. Pneumatosis is also present in the cecum. This may indicate typhlitis or ischemic colitis of th e cecum. A limited non-contrast examination was performed as detailed.
[2022-03-30] MEDS ORDERED: HEPARIN 5000 UNIT/ML 1 ML VIAL ONE (15:56)
[2022-03-30] MEDS ORDERED: HEPARIN/D5W 25,000 UNIT/500 ML BAG IV ONE (15:56)
[2022-03-30] MEDS ORDERED: CEFTRIAXONE 1000 MG/VIAL ONE (16:31)
[2022-03-30] MEDS ORDERED: METRONIDAZOLE 500mg IVPB 500 MG/100 ML BAG IV ONE (16:31)
--- NOTE | 2022-03-30 19:40 | ER ---
Nurse's Notes [facility] Name: Trever Jay Age: 61 yrs Sex: Male : 1960 Arrival Date: 03/30/2022 Time: 07:13 Bed 3 Private MD: Diagnosis: Hypotension, unspecified;Right-sided abdominal pain;Acute kidney injury Presentation: 03/30 07:14 Chief complaint: EMS states: patient said he had been having RUQ pain for 3 days, its a ko1 sharp stabbing pain, pain level is 10. Hx of diabetes and kidney disease without dialysis. Coronavirus screen: At this time, the client does not indicate any symptoms associated with coronavirus-19. Ebola Screen: No symptoms or risks identified at this time. Initial Sepsis Screen: Does the patient meet any 2 criteria? No. Patient's initial sepsis screen is negative. Does the patient have a suspected source of infection? No. Patient's initial sepsis screen is negative. Risk Assessment: Do you want to hurt yourself or someone else? Patient reports no desire to harm self or others. Onset of symptoms was March 27, 2022. 07:14 Method Of Arrival: EMS: [facility] ko1 07:14 Acuity: ANAMARIA 3 ko1 15:46 Acuity: ANAMARIA 2 iw Triage Assessment: 07:19 General: Appears in no apparent distress. uncomfortable, Behavior is calm, cooperative, ko1 appropriate for age. Pain: Complains of pain in right upper quadrant. Historical: - Allergies: 21:21 Ampicillin; aa9 - Immunization history:: Adult Immunizations unknown. - Social history:: Smoking status: Patient denies any tobacco usage or history of. Screenin:15 Abuse screen: Denies threats or abuse. Denies injuries from another. Nutritional ko1 screening: No deficits noted. Nutritional screening: On diabetic diet. Tuberculosis screening: No symptoms or risk factors identified. Fall Risk Secondary diagnosis (15 points) impaired mobility, Ambulatory Aid- Crutches/Cane/Walker (15 pts). Gait- Impaired (20 pts.). Mental Status- Overestimates/Forgets Limitations (15 pts.). Assessment: 07:15 General: Appears in no apparent distress. comfortable, Behavior is calm, cooperative, ko1 appropriate for age, drowsy. Pain: Complains of pain in abdomen and right upper quadrant. Neuro: No deficits noted. Cardiovascular: No deficits noted. Respiratory: No deficits noted. GI: Abdomen is tender to palpation in abdomen and right upper quadrant. : No deficits noted. EENT: No deficits noted. Derm: No deficits noted. Musculoskeletal: No deficits noted. 19:53 General: Appears in no apparent distress. comfortable, unkempt, Behavior is calm, aa9 cooperative, appropriate for age. Pain: Complains of pain in right upper quadrant Pain currently is 9 out of 10 on a pain scale. Noted to be moaning, resistant to movement. Neuro: Level of Consciousness is awake, alert, obeys commands, Oriented to person, place, time, situation. Cardiovascular: Patient's skin is warm and dry. Respiratory: Airway is patent Respiratory effort is even, unlabored. 23:26 General: Reports "I am hurting, I want something for Pain!" It was explained to the tw5 patient we have to get him stable before we can give him pain medication. Patient given verbal reassurance. Vital Signs: 07:14 BP 97 / 69; Pulse 65; Resp 14; Temp 98.8; Pulse Ox 98% ; Weight 81.65 kg; Height 5 ft. ko1 5 in. (165.10 cm); Pain 10/10; 07:15 BP 93 / 64; Pulse 63; Resp 14; Weight 84 kg; ko1 07:30 BP 82 / 57; Pulse 65; ko1 07:45 BP 83 / 65; Pulse 62; Resp 12; ko1 08:00 BP 80 / 62; Pulse 62; ko1 08:15 BP 85 / 58; Pulse 59; Resp 14; ko1 08:30 BP 83 / 63; Pulse 59; ko1 08:45 BP 84 / 64; Pulse 57; ko1 09:00 BP 88 / 65; Pulse 56; ko1 09:15 BP 78 / 57; Pulse 57; Resp 14; Pulse Ox 98% ; ko1 09:30 BP 86 / 61; Pulse 57; Pulse Ox 99% ; ko1 10:15 BP 100 / 65; Pulse 51; ko1 10:30 BP 94 / 68; Pulse 62; ko1 14:00 BP 79 / 48; Pulse 67; ko1 15:00 BP 83 / 61; Pulse 83; ko1 16:00 BP 86 / 59; ko1 17:00 BP 86 / 62; Pulse 72; ko1 19:45 BP 93 / 53; Pulse 98; Resp 18 S; Pulse Ox 100% on 2 lpm NC; Pain 9/10; aa9 20:15 BP 91 / 59; Pulse 102; Pulse Ox 97% on R/A; aa9 23:33 BP 110 / 78; Pulse 101; Resp 16 S; as6 23:35 Pulse Ox 100% on R/A; as6 03/31 01:12 BP 110 / 76; Pulse 98; as6 03/30 07:15 Body Mass Index 30.82 (84.00 kg, 165.10 cm) ko1 ED Course: 03/30 07:13 Patient arrived in ED. ko1 07:14 Afia Guerin, RN is Primary Nurse. ko1 07:14 Ashley Dean MD is Attending Physician. sd2 07:15 Patient has correct armband on for positive identification. Allergy band placed. Fall ko1 risk band placed. Placed in gown. Bed in low position. Call light in reach. Side rails up X2. Client placed on continuous cardiac and pulse oximetry monitoring. NIBP monitoring applied. school bus monitor on. 07:15 Inserted saline lock: 22 gauge in right forearm, using aseptic technique. Blood ko1 collected. 07:19 Triage completed. ko1 07:19 Arm band placed on left wrist. ko1 08:04 Troponin High Sensitivity Sent. ko1 08:04 CMP Sent. ko1 08:04 CBC with Diff Sent. ko1 08:05 Lipase Sent. ko1 09:59 Procalcitonin Sent. ko1 09:59 Lactate Sent. ko1 09:59 BNP Sent. ko1 10:27 US In Process Unspecified. EDMS 11:10 SARS-COV-2 Antigen Rapid Sent. ko1 11:10 NT PRO-BNP Sent. ko1 12:35 BMP Sent. ko1 13:36 BMP Sent. ko1 14:01 Abdomen In Process Unspecified. EDMS 14:[address] [facility]. bd 15:59 pt was not excepted by GI doctor, stated that pt just needs general surgery, per Antoine Snyder. 16:[address] Duron, pt was not accepted by Dr Duron, states that pt needs GI. bd 16:01 initiated transfer [facility]. bd 19:19 Contacted [facility] Transfer Center spoke with Hilary about the status of the transfer. She mw2 stated " I am still trying to get a hold of our stock plan administrator, but we will call you back.". 19:34 no capacity at [facility]. mw2 19:39 Any Gudino MD is Hospitalizing Provider. sd2 20:42 Urine Drug Screen Sent. aa9 20:42 Urine Microscopic Only Sent. aa9 21:21 No provider procedures requiring assistance completed. Patient admitted, IV remains in aa9 place. 23:17 intiated a transfer with Myra Shaffer from [facility]. mw2 23:44 [facility] declined. Trying [facility]. mw2 03/31 00:[address] Camarillo with the General Surgeon from [facility]. mw2 Transfer canceled. Administered Medications: 03/30 18:15 Discontinued: Heparin (NE Drip) 12 units/kg/hr - (HEParin 54708 units, D5W 500 ml) IV sd2 at calculated rate Per protocol; Max initial rate 1000 units/hr 08:22 Drug: Ketorolac 15 mg Route: IVP; Site: right forearm; ko1 08:22 Drug: NS 0.9% 500 ml Route: IV; Rate: bolus; Site: right forearm; ko1 10:13 Drug: NS 0.9% 1000 ml Route: IV; Rate: 1 bolus; Site: right forearm; ko1 10:14 Drug: NARcan (naloxone) 0.4 mg Route: IVP; Site: right forearm; ko1 11:19 Drug: NARcan (naloxone) 1 mg Route: IVP; Site: right forearm; ko1 14:38 Drug: NS 0.9% 1000 ml Route: IV; Rate: 125 ml/hr; Site: right forearm; ko1 16:05 Drug: Heparin (NE-Bolus No thrombolytic) - HEParin 60 units/kg {Co-Signature: kr3 ko1 (Sydney Plata RN).} Route: IVP; Site: right forearm; 16:09 Drug: Heparin (NE Drip) 12 units/kg/hr - (HEParin 60566 units, D5W 500 ml) ko1 {Co-Signature: kr3 (Sydney Plata RN).} Route: IV; Rate: calculated rate; Site: right forearm; 18:21 Follow up: IV Status: Order to discontinue infusion; IV Intake: 40ml ko1 16:46 Drug: Rocephin (cefTRIAXone) 1 grams Route: IV; Rate: bolus; Site: right forearm; ko1 16:54 Drug: Flagyl (metroNIDAZOLE) 500 mg Volume: 100 ml; Route: IVPB; Rate: 200 ml/hr; ko1 Infused Over: 30 mins; Site: right forearm; 18:21 Drug: NS 0.9% 1000 ml Route: IV; Rate: 1 bolus; Site: right antecubital; ko1 20:01 Drug: fentaNYL (PF) 50 mcg Route: IVP; Site: right forearm; aa9 20:15 Follow up: BP 91 / 59; Pulse 102 bpm; Pulse Ox 97% RA; Response: No adverse reaction; aa9 RASS: Alert and Calm (0) 21:09 Drug: Albumin 25 grams Volume: 100 ml; Route: IVPB; Site: right forearm; aa9 22:30 Follow up: Response: No adverse reaction; IV Status: Completed infusion; IV Intake: aa9 100ml 03/31 01:11 Drug: fentaNYL (PF) 50 mcg Route: IVP; Site: right forearm; as6 02:13 Drug: Zofran (Ondansetron) 4 mg Route: IVP; Site: right forearm; as6 Medication: 03/30 21:22 VIS not applicable for this client. aa9 Intake: 12:54 IV: 1500ml (IV Fluid); Total: 1500ml. ko1 18:21 IV: 40ml; Total: 1540ml. ko1 22:30 IV: 100ml; Total: 1640ml. aa9 Outcome: 19:40 Decision to Hospitalize by Provider. sd2 21:21 Admitted to ER Hold. Please see [facility] for further documentation. aa9 21:21 Condition: stable 21:21 Instructed on the need for admit. 03/31 02:32 Patient left the ED. as6 Signatures: Dispatcher [employer] EDMS Samantha Guzman Irene, RN NATHALIE Charly Perea mw2 Brittany Perez tw5 Humble Carson RN RN as6 Ashley Dean MD MD sd2 Dee De Dios RN RN aa9 Afia Guerin RN RN ko1 Sydney Plata RN kr3 Corrections: (The following items were deleted from the chart) 03/30 09:37 08:45 BP 88 / 65; Pulse 56bpm; ko1 ko1 14:58 07:14 BP 97 / 69; Pulse 65bpm; Resp 14bpm; Pulse Ox 98%; Temp 98.8F; 86.18 kg; Height 5 ko1 ft. 5 in.; BMI: 31.6; Pain 03/23; ko1 15:54 07:15 BP 93 / 64; Pulse 63bpm; Resp 14bpm; ko1 ko1 21:22 07:19 Allergies: Ampicillin; ko1 aa9
--- NOTE | 2022-03-30 19:40 | EDPHYS ---
Physician Documentation [facility] Name: Trever Jay Age: 61 yrs Sex: Male : 1960 Arrival Date: 03/30/2022 Time: 07:13 Bed 3 Private MD: ED Physician Ashley Dean HPI: 03/30 08:02 This 61 yrs old Male presents to ER via EMS with complaints of RUQ abdominal sd2 pain. 08:02 61-year-old male with a history of hypertension and chronic kidney disease not sd2 currently on dialysis presents via EMS with chief complaint of 3-day history of sharp, stabbing right upper quadrant abdominal pain. He denies any associated fevers, nausea, vomiting or diarrhea. He reports taking his home hydrocodone without relief this morning. He originally states he took 2 10 mg pills but then stated later that he is only supposed to take 1 pill every 12 hours for pain at home. He reports now that he only took 1 pill instead of 2. However, the patient is falling asleep while he is talking to me and continues to ask for morphine or Dilaudid for his pain.. Historical: - Allergies: 21:21 Ampicillin; aa9 - Immunization history:: Adult Immunizations unknown. - Social history:: Smoking status: Patient denies any tobacco usage or history of. ROS: 08:02 Constitutional: Negative for fever, chills, and weight loss, Eyes: Negative for injury, sd2 pain, redness, and discharge, Cardiovascular: Negative for chest pain, palpitations, and edema, Respiratory: Negative for shortness of breath, cough, wheezing. Abdomen/GI: Positive for abdominal pain, Negative for nausea, vomiting, diarrhea. MS/Extremity: Negative for injury and deformity, Skin: Negative for injury, rash, and discoloration, Neuro: Negative for headache, numbness and tingling. Exam: 08:02 Constitutional: This is a well developed, well nourished patient who is awake, alert, sd2 and in no acute distress. Head/Face: Normocephalic, atraumatic. Eyes: EOMI, normal conjunctiva bilaterally Chest/axilla: Normal chest wall appearance and motion. Nontender with no deformity. Cardiovascular: Regular rate and rhythm with a normal S1 and S2. No gallops, murmurs, or rubs. 2+ distal pulses. Respiratory: Lungs have equal breath sounds bilaterally, clear to auscultation and percussion. No rales, rhonchi or wheezes noted. No increased work of breathing, no retractions or nasal flaring. Abdomen/GI: Soft, nondistended, tenderness to palpation of the epigastric area and right upper quadrant without guarding or rebound. Skin: Warm, dry with normal turgor. Normal color with no rashes, no lesions, and no evidence of cellulitis. MS/ Extremity: Pulses equal, no cyanosis. Neurovascular intact. Full, normal range of motion. Ambulatory without difficulty. Psych: Awake but drowsy with orientation to person, place and time. Behavior, mood, and affect are within normal limits. 08:56 ECG was reviewed by the Attending Physician. NSR, rate 61, no STEMI criteria or ST-T sd2 wave changes Vital Signs: 07:14 BP 97 / 69; Pulse 65; Resp 14; Temp 98.8; Pulse Ox 98% ; Weight 81.65 kg; Height 5 ft. ko1 5 in. (165.10 cm); Pain 10/10; 07:15 BP 93 / 64; Pulse 63; Resp 14; Weight 84 kg; ko1 07:30 BP 82 / 57; Pulse 65; ko1 07:45 BP 83 / 65; Pulse 62; Resp 12; ko1 08:00 BP 80 / 62; Pulse 62; ko1 08:15 BP 85 / 58; Pulse 59; Resp 14; ko1 08:30 BP 83 / 63; Pulse 59; ko1 08:45 BP 84 / 64; Pulse 57; ko1 09:00 BP 88 / 65; Pulse 56; ko1 09:15 BP 78 / 57; Pulse 57; Resp 14; Pulse Ox 98% ; ko1 09:30 BP 86 / 61; Pulse 57; Pulse Ox 99% ; ko1 10:15 BP 100 / 65; Pulse 51; ko1 10:30 BP 94 / 68; Pulse 62; ko1 14:00 BP 79 / 48; Pulse 67; ko1 15:00 BP 83 / 61; Pulse 83; ko1 16:00 BP 86 / 59; ko1 17:00 BP 86 / 62; Pulse 72; ko1 19:45 BP 93 / 53; Pulse 98; Resp 18 S; Pulse Ox 100% on 2 lpm NC; Pain 9/10; aa9 20:15 BP 91 / 59; Pulse 102; Pulse Ox 97% on R/A; aa9 23:33 BP 110 / 78; Pulse 101; Resp 16 S; as6 23:35 Pulse Ox 100% on R/A; as6 03/31 01:12 BP 110 / 76; Pulse 98; as6 03/30 07:15 Body Mass Index 30.82 (84.00 kg, 165.10 cm) ko1 MDM: 03/30 07:14 Patient medically screened. sd2 08:02 Differential Diagnosis Gastritis, cholecystitis, pancreatitis, SBO, diverticulitis, sd2 kidney stone, appendicitis, UTI, dehydration, electrolyte abnormality among others. Data reviewed: vital signs, nurses notes. 18:20 ED course: I spoke with our on-call surgeon, Dr. Duron, who recommends transfer due sd2 to us not having GI as backup for this patient. I spoke with Dr. Julio's [facility] who reports he is unavailable for inpatient GI consults although this patient has been to their clinic in 2019. [facility] is not currently accepting any transfers. [facility] reported that GI is not needed for management of ischemic colitis. I have spoken with Dr. Salomon, hospitalist, and Dr. Cesar, GI, and Dr. Sloan, General Surgery, at [facility] who have concerns about the patient going to med/surg due to his BP issues and are awaiting to hear back about GI capacity. Do not believe heparin gtt is warranted and likely not ischemic colitis so this was stopped at this time. Their surgeon recommends continuing to hydrate the patient and once creatinine improved, repeat CT scan with contrast to rule out ischemia as likely not ischemia based upon patient's clinical exam as he is very comfortable. . 19:36 ED course: [facility] with no ICU capacity at this time. Hospitalist will admit to our sd2 facility. . 23:38 ED course: Last 2 BP 110/78 and 105/69 after fluid bolus, received more than 30cc/kg in rn multiple boluses, elevated lactate. . 03/31 00:57 ED course: [facility] also contacted and declined at multiple facilities. rn This [facility] and in [facility], and now [facility]. Multiple surgeons contacted state we do not need GI services and refuse transfer. . 01:06 ED course: Spoke with Dr. Duron regarding patient and patient's condition, especially rn given unable to transfer patient. He states will look at images and get back with me. . 03/30 07:56 Order name: CBC with Diff sd2 03/30 07:56 Order name: CMP sd2 03/30 07:56 Order name: Troponin High Sensitivity 2 03/30 07:56 Order name: Lipase sd2 03/30 07:56 Order name: Urine Microscopic Only; Complete Time: 22:05 sd2 03/30 07:56 Order name: Urine Drug Screen; Complete Time: 22:05 mt2 03/30 08:24 Order name: CBC with Automated Diff; Complete Time: 15:31 EDMS 03/30 15:31 Interpretation: MCH 27.9. sd2 03/30 08:43 Order name: Comprehensive Metabolic Panel EDTN 03/30 08:43 Order name: Troponin High Sensitivity EDTN 03/30 08:43 Order name: Lipase EDMS 03/30 09:52 Order name: BNP sd2 03/30 09:52 Order name: Lactate sd2 03/30 09:52 Order name: Procalcitonin; Complete Time: 11:06 mt2 03/30 10:40 Order name: NT PRO-BNP EDMS 03/30 07:56 Order name: US Abdomen Limited: Eval RUQ/Gallbladder sd2 03/30 08:40 Order name: US EDMS 03/30 10:58 Order name: CT Abd/Pelvis - Without Cont (PO Contrast Only) 2 03/30 10:58 Order name: SARS-COV-2 Antigen Rapid; Complete Time: 11:45 sd2 03/30 11:45 Order name: BMP; Complete Time: 13:58 mt2 03/30 13:49 Order name: Abdomen ; Complete Time: 14:27 EDMS 03/30 14:08 Order name: Lactate Sepsis 2 HR Follow-up; Complete Time: 14:27 EDMS 03/30 14:37 Order name: Blood Culture Adult (2) sd2 03/30 20:14 Order name: Lactate; Complete Time: 22:05 EDTN 03/30 20:41 Order name: Urine Dipstick-Ancillary; Complete Time: 22:05 EDTN 03/31 01:07 Order name: Lactate Sepsis 2 HR Follow-up; Complete Time: 01:28 EDMS 03/30 07:56 Order name: EKG - Nurse/Tech; Complete Time: 08:22 sd2 03/30 07:56 Order name: Urine Dipstick-Ancillary (obtain specimen); Complete Time: 20:42 sd2 Administered Medications: 03/30 18:15 Discontinued: Heparin ([place] Drip) 12 units/kg/hr - (HEParin 05946 units, D5W 500 ml) IV sd2 at calculated rate Per protocol; Max initial rate 1000 units/hr 08:22 Drug: Ketorolac 15 mg Route: IVP; Site: right forearm; ko1 08:22 Drug: NS 0.9% 500 ml Route: IV; Rate: bolus; Site: right forearm; ko1 10:13 Drug: NS 0.9% 1000 ml Route: IV; Rate: 1 bolus; Site: right forearm; ko1 10:14 Drug: NARcan (naloxone) 0.4 mg Route: IVP; Site: right forearm; ko1 11:19 Drug: NARcan (naloxone) 1 mg Route: IVP; Site: right forearm; ko1 14:38 Drug: NS 0.9% 1000 ml Route: IV; Rate: 125 ml/hr; Site: right forearm; ko1 16:05 Drug: Heparin ([place]-Bolus No thrombolytic) - HEParin 60 units/kg {Co-Signature: kr3 ko1 (Sydney Plata RN).} Route: IVP; Site: right forearm; 16:09 Drug: Heparin ([place] Drip) 12 units/kg/hr - (HEParin 60889 units, D5W 500 ml) ko1 {Co-Signature: kr3 (Sydney Plata RN).} Route: IV; Rate: calculated rate; Site: right forearm; 18:21 Follow up: IV Status: Order to discontinue infusion; IV Intake: 40ml ko1 16:46 Drug: Rocephin (cefTRIAXone) 1 grams Route: IV; Rate: bolus; Site: right forearm; ko1 16:54 Drug: Flagyl (metroNIDAZOLE) 500 mg Volume: 100 ml; Route: IVPB; Rate: 200 ml/hr; ko1 Infused Over: 30 mins; Site: right forearm; 18:21 Drug: NS 0.9% 1000 ml Route: IV; Rate: 1 bolus; Site: right antecubital; ko1 20:01 Drug: fentaNYL (PF) 50 mcg Route: IVP; Site: right forearm; aa9 20:15 Follow up: BP 91 / 59; Pulse 102 bpm; Pulse Ox 97% RA; Response: No adverse reaction; aa9 RASS: Alert and Calm (0) 21:09 Drug: Albumin 25 grams Volume: 100 ml; Route: IVPB; Site: right forearm; aa9 22:30 Follow up: Response: No adverse reaction; IV Status: Completed infusion; IV Intake: aa9 100ml 03/31 01:11 Drug: fentaNYL (PF) 50 mcg Route: IVP; Site: right forearm; as6 02:13 Drug: Zofran (Ondansetron) 4 mg Route: IVP; Site: right forearm; as6 Disposition Summary: 03/30/22 19:40 Hospitalization Ordered Hospitalization Status: Inpatient Admission sd2 Provider: Any Gudino sd2 Condition: Stable sd2 Problem: new sd2 Symptoms: have improved sd2 Bed/Room Type: Standard mt2 Location: [facility] ER HOLD(03/30/22 19:42) cg Room Assignment: ERHOLD-(03/30/22 19:42) cg Diagnosis - Hypotension, unspecified sd2 - Right-sided abdominal pain sd2 - Acute kidney injury sd2 Forms: - Medication Reconciliation Form sd2 - SBAR form sd2 Critical care time excluding procedures: 03/30 19:44 Critical care time: Bedside Care: 60 minutes, Consultation: 30 minutes. Total time: 90 sd2 minutes Signatures: Dispatcher [employer] EDTN Donny Camarillo MD MD rn Garcia, Cindy RN RN cg Humble Carson RN RN as6 Ashley Dean MD MD sd2 Dee De Dios RN RN aa9 Afia Guerin RN RN ko1 Anamaria Proctor PAYuniel PAYuniel moss4 Sydney Plata RN kr3 Corrections: (The following items were deleted from the chart) 13:49 13:45 CT-ABD ordered. EDTN EDMS 15:31 15:31 Abnormal: MCH 27.9. sd2 sd2 19:42 19:40 Telemetry/MedSurg (Inpatient) sd2 cg 19:42 19:40 sd2 cg 21:22 07:19 Allergies: Ampicillin; ko1 aa9
[2022-03-30] MEDS ORDERED: FENTANYL CITR 100 MCG/2 ML ONE (19:58)
[2022-03-30 20:40] LABS: Urine Blood Negative (Negative); Urine Glucose 2+ (Negative); Urine Protein Negative (Negative); Urine pH 5.5 (5.0-7.0)
[2022-03-30] MEDS ORDERED: ALBUMIN HUMAN 25% 100 ML IV ONE (20:45)
--- NOTE | 2022-03-30 20:49 | P.HP ---
Certification for Inpatient Patient admitted to: Inpatient With expected LOS: <2 Midnights Patient will require the following post-hospital care: None Practitioner: I am a practitioner with admitting privileges, knowledge of patient current condition, hospital course, and medical plan of care. Services: Services provided to patient in accordance with Admission requirements found in Title 42 Section 412.3 of the Code of Federal Regulations Patient History Date of Service: 03/30/22 Reason for admission: Abdominal Pain, Colitis, Hypotension Allergies metformin Allergy (Verified 09/12/20 01:06) Shortness of breath Home medications list reviewed: Yes Home Medications: Gabapentin [Neurontin] 800 mg PO TID 09/10/20 Hydrocodone 10/APAP 325 [[place] 10/325*] 1 tab PO QID 09/10/20 Tramadol HCl [Ultram] 50 mg PO TID 09/10/20 Citalopram [Celexa*] 40 mg PO DAILY 11/28/20 Lovastatin [Altoprev] 40 mg PO 1700 11/28/20 Metformin ER [Glucophage ER*] 500 mg PO DAILY 11/28/20 Pantoprazole [Protonix Tab*] 40 mg PO DAILY 11/28/20 Sitagliptin Phos/Metformin HCl [Janumet Xr 50-1,000 mg Tablet] 1 tab PO DAILY 11/28/20 Tamsulosin [Flomax*] 0.4 mg PO BEDTIME 11/28/20 buPROPion HCL [Bupropion HCl Sr] 150 mg PO BID 11/28/20 Glucerna Shake [Glucerna*] 237 ml PO BID #60 can 11/29/20 Thiamine HCl [Vitamin B-1*] 100 mg PO DAILY #30 tablet 11/29/20 Topiramate [Topamax*] 25 mg PO DAILY #30 tab 11/29/20 Minocycline HCl 100 mg PO DAILY #7 capsule 11/30/20 Sulfamethoxazole/Trimethoprim [Bactrim Ds Tablet] 1 each PO DAILY #7 tablet 11/30/20 Oxybutynin Chloride 5 mg PO DAILY #30 tablet 09/12/21 - Past Medical/Surgical History Diabetic: Yes -: HTN -: DM -: HLD -: hepatitis c -: knee replacement Psychosocial/ Personal History: - Family History Mother -: Other (see notes) Notes: unknown - patient states no contact > 25 years Father Notes: unknown - patient states no contact > 25 years - Social History Smoking Status: Never smoker Alcohol use: No CD- Drugs: No Caffeine use: Yes Place of Residence: Home Review of Systems Gastrointestinal: Abdominal Pain Physical Examination - Physical Exam General: Alert, In no apparent distress, Disheveled HEENT: Atraumatic, PERRLA, EOMI, Sclerae nonicteric Neck: Supple, 2+ carotid pulse no bruit, No LAD, Without JVD or thyroid abnormality Respiratory: Clear to auscultation bilaterally, Normal air movement Cardiovascular: Regular rate/rhythm, Normal S1 S2 Gastrointestinal: Normal bowel sounds, No tenderness Musculoskeletal: No tenderness Integumentary: No rashes Neurological: Normal speech, Normal strength at 5/5 x4 extr, Normal tone, Normal affect - Studies Laboratory Data (last 24 hrs) 03/30/22 13:25: Sodium 138, Potassium 3.6, BUN 16, Creatinine 1.99 H, Glucose 323 H 03/30/22 08:00: Sodium 135 L, Potassium 3.9, BUN 16, Creatinine 2.33 H, Glucose 361 H, Total Bilirubin 0.6, AST 10 L, ALT 14, Alkaline Phosphatase 138 H, Lipase 71 L 03/30/22 08:00: WBC 8.40, Hgb 13.1 L, Hct 41.1, Plt Count 231 Assessment and Plan - Problems (Diagnosis) (1) ESRD (end stage renal disease) Current Visit: Yes Status: Chronic (2) Gastroenteritis Current Visit: Yes Status: Acute (3) HLD (hyperlipidemia) Current Visit: Yes Status: Chronic Qualifiers: Hyperlipidemia type: unspecified (4) HTN (hypertension) Current Visit: Yes Status: Chronic Qualifiers: Hypertension type: primary hypertension Qualified Code(s): I10 - Essential (primary) hypertension (5) T2DM (type 2 diabetes mellitus) Current Visit: Yes Status: Chronic Qualifiers: Diabetes mellitus fdc insulin use: without fdc use Diabetes mellitus complication status: with hyperglycemia Qualified Code(s): E11.65 - Type 2 diabetes mellitus with hyperglycemia (6) Hypotension Current Visit: Yes Status: Acute Qualifiers: Hypotension type: hypotension due to drug Qualified Code(s): I95.2 - Hypotension due to drugs Discharge Plan: Home Plan to discharge in: 48 Hours - Advance Directives Does patient have a Living Will: No Does patient have a Durable POA for Healthcare: No - Code Status/Comfort Care Code Status Assessed: Yes (Full) Critical Care: No Time Spent Managing Pts Care (In Minutes): 50
[2022-03-30 20:54] LABS: Urine Bacteria <20 /HPF (<20); Urine Mucus Slight /HPF (None Seen); Urine RBC <5 /HPF (None Seen)
[2022-03-30 20:58] LABS: Barbiturates NEGATIVE (NEGATIVE); Benzodiazepines POSITIVE (NEGATIVE); Cocaine NEGATIVE (NEGATIVE); METHAMPHETAM NEGATIVE (NEGATIVE); Methadone NEGATIVE (NEGATIVE); Opiates POSITIVE (NEGATIVE); Phencyclidine NEGATIVE (NEGATIVE); THC Cannibis NEGATIVE (NEGATIVE)
[2022-03-30] MEDS ORDERED: NA CHLORIDE 0.9% 500 ML IV ONE (22:18)
[2022-03-31 00:12] VITALS: BMI 29.9
[2022-03-31] MEDS ORDERED: FENTANYL CITR 100 MCG/2 ML ONE ×2 (01:07→02:14)
--- NOTE | 2022-03-31 01:38 | P.HP ---
Certification for Inpatient Patient admitted to: Inpatient With expected LOS: >2 Midnights Patient will require the following post-hospital care: None Practitioner: I am a practitioner with admitting privileges, knowledge of patient current condition, hospital course, and medical plan of care. Services: Services provided to patient in accordance with Admission requirements found in Title 42 Section 412.3 of the Code of Federal Regulations Patient History Date of Service: 03/31/22 Reason for admission: Ischemic Colitis History of Present Illness: Patient is a 61-year-old male history of hypertension, diabetes mellitus, hyperlipidemia, depression, asthma, early dementia, and CKD3b who presented to the ED with complaints of abdominal pain. Patient reports that the pain began 3 days ago in his right upper quadrant and significantly worsened today. Where he localizes it is more so the right mid quadrant. His blood pressure has been low although he states that he did take an extra Ephraim this morning. His creatinine was 2.[address] was limited to a noncontrast exam which showed possible ischemic colitis versus typhlitis with pneumatosis. He was started on rocephin and flagyl and given sepsis fluids. Several attempts were made to transfer patient but were declined. Patient now meeting septic shock criteria. General surgery to take patient to OR immediately for exploratory laboratory. Allergies ibuprofen Allergy (Verified 03/31/22 03:37) Itching metformin Allergy (Verified 09/12/20 01:06) Shortness of breath Home medications list reviewed: Yes Home Medications: Gabapentin [Neurontin] 800 mg PO TID 09/10/20 Hydrocodone 10/APAP 325 [[place] 10/325*] 1 tab PO QID 09/10/20 Tramadol HCl [Ultram] 50 mg PO TID 09/10/20 Citalopram [Celexa*] 40 mg PO DAILY 11/28/20 Lovastatin [Altoprev] 40 mg PO 1700 11/28/20 Metformin ER [Glucophage ER*] 500 mg PO DAILY 11/28/20 Pantoprazole [Protonix Tab*] 40 mg PO DAILY 11/28/20 Sitagliptin Phos/Metformin HCl [Janumet Xr 50-1,000 mg Tablet] 1 tab PO DAILY 11/28/20 Tamsulosin [Flomax*] 0.4 mg PO BEDTIME 11/28/20 buPROPion HCL [Bupropion HCl Sr] 150 mg PO BID 11/28/20 Glucerna Shake [Glucerna*] 237 ml PO BID #60 can 11/29/20 Thiamine HCl [Vitamin B-1*] 100 mg PO DAILY #30 tablet 11/29/20 Topiramate [Topamax*] 25 mg PO DAILY #30 tab 11/29/20 Minocycline HCl 100 mg PO DAILY #7 capsule 11/30/20 Sulfamethoxazole/Trimethoprim [Bactrim Ds Tablet] 1 each PO DAILY #7 tablet 11/30/20 Oxybutynin Chloride 5 mg PO DAILY #30 tablet 09/12/21 - Past Medical/Surgical History Diabetic: Yes -: HTN -: DM -: HLD -: hepatitis c -: CKD -: knee replacement Psychosocial/ Personal History: - Family History Mother -: Other (see notes) Notes: unknown - patient states no contact > 25 years Father Notes: unknown - patient states no contact > 25 years - Social History Smoking Status: Never smoker Alcohol use: No CD- Drugs: No Caffeine use: Yes Place of Residence: Home Review of Systems Gastrointestinal: Abdominal Pain Physical Examination - Physical Exam General: Alert, In no apparent distress, Mild distress HEENT: Atraumatic, PERRLA, EOMI, Sclerae nonicteric Neck: Supple, 2+ carotid pulse no bruit, No LAD, Without JVD or thyroid abnormality Respiratory: Clear to auscultation bilaterally, Normal air movement Cardiovascular: Regular rate/rhythm, Normal S1 S2 Gastrointestinal: Non-distended, Tenderness, Guarding Musculoskeletal: No tenderness Integumentary: No rashes Neurological: Normal speech, Normal strength at 5/5 x4 extr, Normal tone, Normal affect - Studies Laboratory Data (last 24 hrs) 03/30/22 13:25: Sodium 138, Potassium 3.6, BUN 16, Creatinine 1.99 H, Glucose 323 H 03/30/22 08:00: Sodium 135 L, Potassium 3.9, BUN 16, Creatinine 2.33 H, Glucose 361 H, Total Bilirubin 0.6, AST 10 L, ALT 14, Alkaline Phosphatase 138 H, Lipase 71 L 03/30/22 08:00: WBC 8.40, Hgb 13.1 L, Hct 41.1, Plt Count 231 Assessment and Plan - Problems (Diagnosis) (1) Ischemic colitis Current Visit: Yes Status: Acute (2) HLD (hyperlipidemia) Current Visit: Yes Status: Chronic Qualifiers: Hyperlipidemia type: unspecified Qualified Code(s): E78.5 - Hyperlipidemia, unspecified (3) HTN (hypertension) Current Visit: Yes Status: Chronic Qualifiers: Hypertension type: primary hypertension Qualified Code(s): I10 - Essential (primary) hypertension (4) T2DM (type 2 diabetes mellitus) Current Visit: Yes Status: Chronic Qualifiers: Diabetes mellitus terminal operations supervisor insulin use: without residential use Diabetes mellitus complication status: with hyperglycemia Qualified Code(s): E11.65 - Type 2 diabetes mellitus with hyperglycemia (5) Hypotension Current Visit: Yes Status: Acute Qualifiers: Hypotension type: hypotension due to drug Qualified Code(s): I95.2 - Hypotension due to drugs (6) Sepsis Current Visit: Yes Status: Acute Qualifiers: Sepsis type: sepsis due to unspecified organism Sepsis acute organ dysfunction status: with acute organ dysfunction Severe sepsis acute organ dysfunction type: acute renal failure Acute renal failure type: unspecified Severe sepsis shock status: with septic shock Qualified Code(s): A41.9 - Sepsis, unspecified organism; R65.21 - Severe sepsis with septic shock; N17.9 - Acute kidney failure, unspecified (7) CKD (chronic kidney disease) Current Visit: Yes Status: Acute Qualifiers: Chronic kidney disease stage: stage 3 (moderate) Chronic kidney disease stage 3 subtype: stage 3b (GFR 30-44) Qualified Code(s): N18.32 - Chronic kidney disease, stage 3b - Plan -Postop right hemicolectomy with ileocolic anastomosis and mobilization of the hepatic flexure due to ischemic cecum with partial necrosis -Transferred to ICU for recovery -NG tube, CARMEN drain, and bojorquez in place -Continue zosyn and flagyl -IV fluids -Pain control -NPO -Monitor and replete electrolytes per protocol -VTE prophylaxis -Full code Discharge Plan: Home Plan to discharge in: 24 Hours - Advance Directives Does patient have a Living Will: No Does patient have a Durable POA for Healthcare: No - Code Status/Comfort Care Code Status Assessed: Yes (Full) Critical Care: No Time Spent Managing Pts Care (In Minutes): 50
[2022-03-31] MEDS ORDERED: ONDANSETRON 4 MG/2 ML VIAL ONE ×2 (02:11→02:15)
[2022-03-31] MEDS ORDERED: NA CHLORIDE 0.9% 1,000 ML ONE ×2 (02:12→02:44)
[2022-03-31] MEDS ORDERED: GLYCOPYRROLATE 0.2 MG/ML SYR ONE (02:14)
[2022-03-31] MEDS ORDERED: MIDAZOLAM HCL 2 MG/2 ML INJ ONE (02:14)
[2022-03-31] MEDS ORDERED: LIDOCAINE 1% MPF 5 ML VIAL ONE (02:14)
[2022-03-31] MEDS ORDERED: dexAMETHasone 4 MG/ML VIAL ONE (02:15)
[2022-03-31] MEDS ORDERED: ROCURONIUM 50 MG/5 ML VIAL IV ONE (02:15)
[2022-03-31] MEDS ORDERED: ETOMIDATE 20 MG/10 ML VIAL IV ONE (02:15)
--- NOTE | 2022-03-31 02:21 | P.CNS ---
Date of Consult: 03/31/22 PC: I was asked to see this 61-year-old male who presented to the emergency room with severe right-sided abdominal pain for diagnosis and treatment HPC: Patient apparently came to the hospital complaining of severe right-sided abdominal pain. He was evaluated in the ER earlier yesterday morning. At that time it was found he may have ischemic colitis. I recommend he be transferred to a higher care facility. Apparently as the day progressed, they were unable to arrange transfer. I was informed at 1230 this morning of this fact. PSHx: Knee replacement PMHx: hypertension, diabetes, hyperlipidemia, hepatitis C, chronic kidney disease Social Hx: Does not drink or smoke Sys R: No cough, wheeze, shortness of breath. No chest pain or palpitations at this time. States has been having this abdominal pain for about 3 to 4 days. O/E: Awake alert vital signs are stable, had been hypotensive earlier today but has received 3 L of fluid HEENT: Not jaundiced Chest: Air entry equal bilaterally Abd: Marked tenderness in the right lower quadrant Harwood: Intact Data: CT scan shows possible ischemic colitis with pneumatosis in that area Impression: Ischemic bowel right colon Plan: I have discussed with the patient the need for surgery. The risks of this procedure have been discussed. The possibility of bleeding, infection, injury to surrounding structures as outlined. More importantly we told the patient that he may require an ostomy of some type. The possible need for further surgeries and procedures was discussed. He understands and wants to proceed.
[2022-03-31] MEDS ORDERED: Phenylephrine HCl 10 MG/ML 1 ML VIAL ONE (02:26)
[2022-03-31] MEDS ORDERED: NS 0.9% VIAL 10 ML ONE (02:35)
[2022-03-31] MEDS ORDERED: MORPHINE 10 MG/ML VIAL ONE (03:57)
[2022-03-31] MEDS ORDERED: NEOSTIGMINE 1 MG/ML -10 ML VIAL ONE (04:11)
--- NOTE | 2022-03-31 05:12 | P.OP ---
Preoperative diagnosis: Ischemic bowel Postoperative diagnosis: Ischemic cecum with partial necrosis Primary procedure: Right hemicolectomy Secondary procedure: Ileocolic anastomosis Other procedure(s): Mobilization of the hepatic flexure Anesthesia: General Estimated blood loss: Less than 30 cc Specimen: Specimen of right colon, anastomosis Operative Technique: The patient brought the operating room and placed supine on the table. After the induction of adequate general endotracheal anesthesia, a nasogastric tube was passed. A Velazquez catheter was inserted. The abdomen was then prepped with a Betadine solution, he was draped in usual aseptic manner. Attention was turned towards the midline. A generous incision was made. This was brought down from just below the xiphoid to just above the pubic symphysis. The fascia in the midline was identified. It was there that we were able to make entry into the peritoneal cavity. Having was placed inside her incision now we are able to open it for the full length. At this point the abdomen was inspected. The omentum was viable. The small bowel was run from the ligament of Treitz down to the ileocecal valve. It was at this point and we saw that there was a area of obvious vascular compromise to the cecum. There was an area of what appeared to be patchy necrosis. This traced up towards the hepatic flexure. As we approached the middle colic artery distribution the bowel was viable in this area. At this point we turned our attention to the cecum. The peritoneum was opened up around it. We were then able to open the peritoneum up along the white line of T[place]t. We came around the superior portion to take down the hepatic flexure. This was now mobilized medially taking care not to injure the duodenum as we did so. Having taken the coverings off of Gerota's fascia, we were now able to come inferiorly and identify the distal ileum. Attention was turned towards this. A hemostat was used to isolate a segment of the bowel. The linear stapler was now placed across this and the instrument was fired. The small bowel having been divided, we were now able to take down the mesentery of the cecum and right colon. We did this using the LigaSure. The larger vessels were controlled with LigaSure and ties of 2-0 silk double tie on the right colic artery. The specimen was now detached at the medial portion of the transverse colon. This was sent as cyst for histopathology. The small bowel was now brought up to the colon. A [id number] functional end-to-end anastomosis was now constructed between the distal ileum and the transverse colon. The anastomosis was protected with some chromic stitches placed distally to take tension off of our anastomosis. The mesenteric defect was now closed with a running suture of chromic. The retroperitoneal area was carefully inspected to ensure that we had adequate hemostasis. A CARMEN drain was placed down in this area to drain the retroperitoneum and as we placed the intestines back it is also underneath our anastomosis as well. The omentum was now flowered out to cover all the small bowel equally. The intestines having been returned to the best anatomical position we could provide the midline incision was closed with a running suture of nylon. The skin was approximated with brad. The Familia- Caldwell drain was fixed with a nylon suture. At the end of the procedure the patient was in a stable condition when sent to the recovery room. Needle sponge and instrument count were correct. 1 Familia- Caldwell drain had been placed. We also left a Velazquez catheter. Complications: None Drain(s): Urinary catheter, CARMEN drain Transferred to: Recovery Room Condition: Good
[2022-03-31] MEDS: HYDROMORPHONE HCL 2 MG/ML inj ONE ×4 (05:41→06:28)
[2022-03-31] MEDS ORDERED: PROMETHAZINE INJ 25 MG/ML AMP ONE (05:54)
[2022-03-31] MEDS: NA CHLORIDE 0.9% 1,000 ML IV SCH ×2 (07:15→07:38)
[2022-03-31] MEDS: PIPER TAZO 3.375 GM in NA CHLORIDE 0.9% 100 ML IV SCH ×2 (07:37→16:34)
[2022-03-31] MEDS: METRONIDAZOLE 500mg IVPB 500 MG/100 ML BAG IV SCH ×2 (07:37→16:34)
[2022-03-31] MEDS: MORPHINE 4 MG/ML SYR IV PRN ×7 (07:48→22:29)
[2022-03-31] MEDS ORDERED: INFLUENZA VACCINE (for 6+ mo) 0.5 ML DOSE IMVAC ONE (08:00)
[2022-03-31 08:31] LABS: Absolute Lymphocytes (CBC) 0.4 K/uL (0.7-4.9); Hematocrit 34.7 % (39.6-49.0); Lymphocytes % 2.3 % (15.3-44.8); MCV 87.8 fL (80-100); RBC Red Blood Cell Count 3.95 M/uL (4.33-5.43)
--- NOTE | 2022-03-31 09:25 | RAD REPORT ---
EXAM DESCRIPTION: RAD - Abdomen 1 View (KUB) - 03/31/2022 6:04 am CLINICAL HISTORY: Placement of NGT/OGT. Post Insertion. Pain COMPARISON: Abdomen 1 View (KUB) dated 11/22/2015; ABDOMEN 1 VIEW KUB dated 08/14/2013 FINDINGS: Enteric tube is coiled in the stomach. Skin brad are noted along the right abdomen. Rig ht-sided drainage catheter is noted.
[2022-03-31 09:29] LABS: Albumin 2.9 g/dL (3.4-5.0); Bilirubin Direct 0.3 mg/dL (0-0.2); Bilirubin Total 0.7 mg/dL (0.2-1.0); Potassium 4.5 mmol/L (3.5-5.1); Protein, Total 6.4 g/dL (6.4-8.2)
--- NOTE | 2022-03-31 14:06 | EKG ---
Test Date: 2022-03-30 Test Time: 08:24:03 Boiler Welder: DARA MEASUREMENT RESULTS: Intervals: Rate: 61 VT: 162 QRSD: 96 QT: 414 QTc: 416 Ismay: P: 12 VT: 162 QRS: -35 T: 12 INTERPRETIVE STATEMENTS: Normal sinus rhythm Left axis deviation Abnormal ECG Compared to ECG 09/11/2021 13:33:55 Left-axis deviation now present Electronically Signed On 03-31-22 14:02:28 CDT by Buster Le
--- NOTE | 2022-03-31 15:56 | P.PN ---
Date of Service: 03/31/22 S: We will having pain today, however it is different than what he presented to the hospital with. Appears to be more incisional. Not very well controlled. Asking for food. O: Vital signs are stable, H&H are stable, WBC slightly elevated wounds are clean, A: Stable status post right hemicolectomy for ischemic colitis P: Continue current therapy, will change his pain medicine to make him more comfortable. May have ice chips and popsicles. We will consult physical therapy. Will DC Velazquez catheter in a.m. Minimal after CARMEN drain.
[2022-04-01] MEDS: METRONIDAZOLE 500mg IVPB 500 MG/100 ML BAG IV SCH ×3 (00:41→16:08)
[2022-04-01] MEDS: MORPHINE 4 MG/ML SYR IV PRN ×12 (00:42→23:14)
[2022-04-01] MEDS: PIPER TAZO 3.375 GM in NA CHLORIDE 0.9% 100 ML IV SCH ×3 (00:42→16:08)
[2022-04-01] MEDS: NA CHLORIDE 0.9% 1,000 ML IV SCH ×2 (04:59→12:00)
[2022-04-01 06:01] LABS: Absolute Lymphocytes (CBC) 0.9 K/uL (0.7-4.9); Hematocrit 34.4 % (39.6-49.0); Lymphocytes % 5.3 % (15.3-44.8); MCV 87.2 fL (80-100); MPV 8.8 fL (7.6-11.3); RBC Red Blood Cell Count 3.95 M/uL (4.33-5.43)
[2022-04-01 06:02] LABS: Albumin 2.6 g/dL (3.4-5.0); Bilirubin Total 0.5 mg/dL (0.2-1.0); Protein, Total 6.4 g/dL (6.4-8.2)
[2022-04-01] MEDS ORDERED: MINERAL OIL 30 ML UCUP PO ONE (15:00)
--- NOTE | 2022-04-01 15:00 | P.PN ---
Date of Service: 04/01/22 S: No specific complaints, says he is however too sore to get out of bed. Says he did not sleep very well. Oh: Vital signs are stable, appropriate amount via nasogastric tube. Adequate urine output. 20 cc per shift CARMEN drain. Incision clean. A: Stable status post exploratory laparotomy with right hemicolectomy for ischemic colitis P: Patient is stable enough to go to the regular floor. Explained to him that he will be walking in the morning with physical therapy. At that time we will most likely DC his nasogastric tube. Velazquez catheter will be removed this evening. We will keep him on the same pain regime, will add 5 mg of Valium p.o. tonight so he may sleep. He understands.
[2022-04-01] MEDS ORDERED: DIAZEPAM 5 MG TABLET PO ONE (15:02)
[2022-04-02] MEDS: NA CHLORIDE 0.9% 1,000 ML IV SCH ×4 (00:03→16:37)
[2022-04-02] MEDS: METRONIDAZOLE 500mg IVPB 500 MG/100 ML BAG IV SCH ×4 (00:04→23:50)
[2022-04-02] MEDS: PIPER TAZO 3.375 GM in NA CHLORIDE 0.9% 100 ML IV SCH ×3 (00:06→16:08)
[2022-04-02] MEDS: MORPHINE 4 MG/ML SYR IV PRN ×12 (01:12→23:49)
[2022-04-02 06:13] LABS: Hematocrit 32.3 % (39.6-49.0); Lymphocytes % 7.7 % (15.3-44.8); MCV 86.1 fL (80-100); MPV 8.1 fL (7.6-11.3); RBC Red Blood Cell Count 3.75 M/uL (4.33-5.43)
[2022-04-02 06:35] LABS: Albumin 2.5 g/dL (3.4-5.0); Bilirubin Total 0.7 mg/dL (0.2-1.0); Potassium 3.4 mmol/L (3.5-5.1); Protein, Total 6.5 g/dL (6.4-8.2)
[2022-04-02] MEDS: KCL 20 MEQ/100 mL IVPB 20 MEQ/100 ML BAG IV SCH ×2 (08:11→09:58)
--- NOTE | 2022-04-02 15:03 | P.PN ---
Date of Service: 04/02/22 S: Patient feels better today, having some rumblings in his tummy. Was up for physical therapy today. Pain appears to be well controlled. O: Vital signs are stable, incision is clean. Minimal out through the CARMEN drain. Minimal drainage through the nasogastric tube. A: Patient is surgically stable. I remove the Familia-Caldwell drain. We will give him some mineral oil, and then remove the nasogastric tube. He will be started on full liquids tonight. Anticipate discharge soon. P: Continue current therapy, anticipate discharge soon. He will be discharged tomorrow or the next day, and will see me next week in my office. Should he have any questions or problems, he may return to the emergency room and ask for me.
[2022-04-02] MEDS ORDERED: MINERAL OIL 30 ML UCUP PO ONE (16:00)
[2022-04-02] MEDS ORDERED: HYDRALAZINE HCL 20 MG/ML VIAL IV PRN (16:38)
--- NOTE | 2022-04-02 16:41 | P.PN ---
Date of Service: 04/01/22 Subjective Clinical symptoms continue to improve. Status post hemicolectomy with anastomosis. Pain is controlled. Patient appears to be in good spirits. We will continue with NG tube per surgery recommendations. May be able to clamp NG tube in a.m. pending surgical evaluation. Physical Examination - Physical Exam General: Alert, In no apparent distress, Mild distress Respiratory: Clear to auscultation bilaterally, Normal air movement Cardiovascular: Regular rate/rhythm, Normal S1 S2 Gastrointestinal: Non-distended, Tenderness, Guarding Musculoskeletal: No tenderness Neurological: No focal deficits Assessment and Plan - Problems (Diagnosis) (1) Ischemic colitis status post right hemicolectomy with ileocecal anastomosis Current Visit: Yes Status: Acute (2) HLD (hyperlipidemia) Current Visit: Yes Status: Chronic Qualifiers: Hyperlipidemia type: unspecified Qualified Code(s): E78.5 - Hyperlipidemia, unspecified (3) HTN (hypertension) Current Visit: Yes Status: Chronic Qualifiers: Hypertension type: primary hypertension Qualified Code(s): I10 - Essential (primary) hypertension (4) T2DM (type 2 diabetes mellitus) Current Visit: Yes Status: Chronic Qualifiers: Diabetes mellitus alf insulin use: without terminal manager use Diabetes mellitus complication status: with hyperglycemia Qualified Code(s): E11.65 - Type 2 diabetes mellitus with hyperglycemia (5) Hypotension Current Visit: Yes Status: Acute Qualifiers: Hypotension type: hypotension due to drug Qualified Code(s): I95.2 - Hypotension due to drugs (6) Sepsis Current Visit: Yes Status: Acute Qualifiers: Sepsis type: sepsis due to unspecified organism Sepsis acute organ dysfunction status: with acute organ dysfunction Severe sepsis acute organ dysfunction type: acute renal failure Acute renal failure type: unspecified Severe sepsis shock status: with septic shock Qualified Code(s): A41.9 - Sepsis, unspecified organism; R65.21 - Severe sepsis with septic shock; N17.9 - Acute kidney failure, unspecified (7) CKD (chronic kidney disease) Current Visit: Yes Status: Acute Qualifiers: Chronic kidney disease stage: stage 3 (moderate) Chronic kidney disease stage 3 subtype: stage 3b (GFR 30-44) Qualified Code(s): N18.32 - Chronic kidney disease, stage 3b - Plan -Continue supportive care; transfer to general medical floor -NG tube, CARMEN drain, and bojorquez in place -Continue zosyn and flagyl -IV fluids -Pain control -NPO -Monitor and replete electrolytes per protocol -VTE prophylaxis -Full code
--- NOTE | 2022-04-02 16:42 | P.PN ---
Date of Service: 04/02/22 Subjective Spoke with general surgery. We will go ahead and remove the NG tube. Remove CARMEN drain. Start on a clear liquid diet and may advance to a full liquid in the morning if tolerates diet. Anticipate discharge over the next 24 to 48 hours if patient continues to improve. Continue with pain control and out of bed and ambulate. Physical Examination - Physical Exam General: Alert, In no apparent distress, Mild distress Respiratory: Clear to auscultation bilaterally, Normal air movement Cardiovascular: Regular rate/rhythm, Normal S1 S2 Gastrointestinal: Non-distended, Tenderness, Guarding Musculoskeletal: No tenderness Neurological: No focal deficits Assessment and Plan - Problems (Diagnosis) (1) Ischemic colitis status post right hemicolectomy with ileocecal anastomosis Current Visit: Yes Status: Acute (2) HLD (hyperlipidemia) Current Visit: Yes Status: Chronic Qualifiers: Hyperlipidemia type: unspecified Qualified Code(s): E78.5 - Hyperlipidemia, unspecified (3) HTN (hypertension) Current Visit: Yes Status: Chronic Qualifiers: Hypertension type: primary hypertension Qualified Code(s): I10 - Essential (primary) hypertension (4) T2DM (type 2 diabetes mellitus) Current Visit: Yes Status: Chronic Qualifiers: Diabetes mellitus prison insulin use: without prison use Diabetes mellitus complication status: with hyperglycemia Qualified Code(s): E11.65 - Type 2 diabetes mellitus with hyperglycemia (5) Hypotension Current Visit: Yes Status: Acute Qualifiers: Hypotension type: hypotension due to drug Qualified Code(s): I95.2 - Hypotension due to drugs (6) Sepsis Current Visit: Yes Status: Acute Qualifiers: Sepsis type: sepsis due to unspecified organism Sepsis acute organ dysfunction status: with acute organ dysfunction Severe sepsis acute organ dysfunction type: acute renal failure Acute renal failure type: unspecified Severe sepsis shock status: with septic shock Qualified Code(s): A41.9 - Sepsis, unspecified organism; R65.21 - Severe sepsis with septic shock; N17.9 - Acute kidney failure, unspecified (7) CKD (chronic kidney disease) Current Visit: Yes Status: Acute Qualifiers: Chronic kidney disease stage: stage 3 (moderate) Chronic kidney disease stage 3 subtype: stage 3b (GFR 30-44) Qualified Code(s): N18.32 - Chronic kidney disease, stage 3b - Plan -Continue supportive care; transfer to general medical floor -NG tube, CARMEN drain, and bojorquez will be removed. We will get patient out of bed and ambulate and start a clear liquid diet and advance as tolerated -Continue zosyn and flagyl -IV fluids -Pain control -Monitor and replete electrolytes per protocol -VTE prophylaxis -Full code
[2022-04-02] MEDS ORDERED: METOPROLOL TAR 50 MG TAB PO ONE (17:00)
[2022-04-02] MEDS: METOPROLOL TAR 25 MG TAB PO SCH (17:32)
[2022-04-02] MEDS: GABAPENTIN 400 MG CAP PO SCH ×2 (17:32→21:51)
[2022-04-02] MEDS ORDERED: HOME MED 1 EA UNK (Gabapentin [Neurontin] 800 MG Tablet) PO SCH (21:00)
[2022-04-02] MEDS: TAMSULOSIN 0.4 MG SR CAP PO SCH (21:51)
[2022-04-02] MEDS: AMITRIPTYLINE 25 MG TAB PO SCH (21:51)
[2022-04-03] MEDS: PIPER TAZO 3.375 GM in NA CHLORIDE 0.9% 100 ML IV SCH ×3 (01:06→17:14)
[2022-04-03] MEDS: MORPHINE 4 MG/ML SYR IV PRN ×6 (03:14→21:35)
[2022-04-03] MEDS: METOPROLOL TAR 25 MG TAB PO SCH ×2 (05:38→17:16)
[2022-04-03] MEDS: NA CHLORIDE 0.9% 1,000 ML IV SCH ×2 (05:41→17:15)
[2022-04-03 06:36] LABS: Absolute Lymphocytes (CBC) 1.1 K/uL (0.7-4.9); Hematocrit 32.1 % (39.6-49.0); Lymphocytes % 12.6 % (15.3-44.8); MCV 85.8 fL (80-100); RBC Red Blood Cell Count 3.75 M/uL (4.33-5.43)
[2022-04-03 06:51] LABS: Albumin 2.4 g/dL (3.4-5.0); Bilirubin Total 0.8 mg/dL (0.2-1.0); Magnesium 1.8 mg/dL (1.8-2.4); Phosphorus 1.9 mg/dL (2.5-4.9); Potassium 3.4 mmol/L (3.5-5.1); Protein, Total 6.2 g/dL (6.4-8.2)
[2022-04-03] MEDS ORDERED: POTASSIUM CL SA 10 MEQ TAB PO ONE (08:57)
[2022-04-03] MEDS ORDERED: MAGNESIUM SULFATE 1 gm IVPB 1 GM/100 ML BAG IV ONE (08:57)
[2022-04-03] MEDS: HOME MED 1 EA UNK (Fenofibrate [Fenofibrate] 50 MG Capsule) PO SCH (09:00)
[2022-04-03] MEDS: METRONIDAZOLE 500mg IVPB 500 MG/100 ML BAG IV SCH ×2 (09:10→17:15)
[2022-04-03] MEDS: FINASTERIDE 5 MG TAB PO SCH (09:10)
[2022-04-03] MEDS: POTASS/SODIUM PHOSPHATE 1 PKT POWD.PACK PO SCH ×3 (09:11→11:00)
[2022-04-03] MEDS: LOSARTAN POTASSIUM 50 MG TABLET PO SCH (09:11)
[2022-04-03] MEDS: GABAPENTIN 400 MG CAP PO SCH ×3 (09:11→20:21)
[2022-04-03] MEDS: HYDROCODONE/APAP 10/325 TAB PO PRN ×2 (12:20→20:21)
[2022-04-03] MEDS: AMITRIPTYLINE 25 MG TAB PO SCH (20:22)
[2022-04-03] MEDS: TAMSULOSIN 0.4 MG SR CAP PO SCH (20:22)
[2022-04-03] MEDS: DIAZEPAM 5 MG TABLET PO PRN (20:23)
[2022-04-03] MEDS: ENSURE CLEAR 200 ML CAN PO SCH (20:23)
[2022-04-04] MEDS: METRONIDAZOLE 500mg IVPB 500 MG/100 ML BAG IV SCH ×3 (01:39→16:59)
[2022-04-04] MEDS: PIPER TAZO 3.375 GM in NA CHLORIDE 0.9% 100 ML IV SCH ×3 (01:39→18:00)
[2022-04-04] MEDS: MORPHINE 4 MG/ML SYR IV PRN ×6 (01:39→22:18)
[2022-04-04] MEDS: HYDROCODONE/APAP 10/325 TAB PO PRN ×4 (02:26→20:32)
[2022-04-04 04:59] LABS: Magnesium 1.8 mg/dL (1.8-2.4); Phosphorus 2.6 mg/dL (2.5-4.9); Potassium 3.7 mmol/L (3.5-5.1)
[2022-04-04] MEDS: METOPROLOL TAR 25 MG TAB PO SCH ×3 (05:32→18:06)
[2022-04-04] MEDS ORDERED: MAGNESIUM SULFATE 1 gm IVPB 1 GM/100 ML BAG IV ONE (06:00)
[2022-04-04] MEDS: GABAPENTIN 400 MG CAP PO SCH ×3 (08:38→20:32)
[2022-04-04] MEDS: FINASTERIDE 5 MG TAB PO SCH (08:38)
[2022-04-04] MEDS: ENSURE CLEAR 200 ML CAN PO SCH ×2 (08:39→20:33)
[2022-04-04] MEDS ORDERED: POTASSIUM CL SA 10 MEQ TAB PO ONE (09:00)
[2022-04-04] MEDS: HOME MED 1 EA UNK (Fenofibrate [Fenofibrate] 50 MG Capsule) PO SCH (09:00)
[2022-04-04] MEDS: LOSARTAN POTASSIUM 50 MG TABLET PO SCH (09:00)
[2022-04-04] MEDS: NA CHLORIDE 0.9% 1,000 ML IV SCH (14:41)
[2022-04-04] MEDS: TAMSULOSIN 0.4 MG SR CAP PO SCH (20:32)
[2022-04-04] MEDS: AMITRIPTYLINE 25 MG TAB PO SCH (20:32)
--- NOTE | 2022-04-04 23:38 | P.PN ---
Date of Service: 04/03/22 Subjective Patient was started on clear liquids. Clinically appears to be doing better. Med advanced diet in the morning if okay with surgery. All mass Physical Examination - Physical Exam General: Alert, In no apparent distress, Mild distress Respiratory: Clear to auscultation bilaterally, Normal air movement Cardiovascular: Regular rate/rhythm, Normal S1 S2 Gastrointestinal: Non-distended, Tenderness, Guarding Musculoskeletal: No tenderness Neurological: No focal deficits Assessment and Plan - Problems (Diagnosis) (1) Ischemic colitis status post right hemicolectomy with ileocecal anastomosis Current Visit: Yes Status: Acute (2) HLD (hyperlipidemia) Current Visit: Yes Status: Chronic Qualifiers: Hyperlipidemia type: unspecified Qualified Code(s): E78.5 - Hyperlipidemia, unspecified (3) HTN (hypertension) Current Visit: Yes Status: Chronic Qualifiers: Hypertension type: primary hypertension Qualified Code(s): I10 - Essential (primary) hypertension (4) T2DM (type 2 diabetes mellitus) Current Visit: Yes Status: Chronic Qualifiers: Diabetes mellitus emt intermediate insulin use: without fpc use Diabetes mellitus complication status: with hyperglycemia Qualified Code(s): E11.65 - Type 2 diabetes mellitus with hyperglycemia (5) Hypotension Current Visit: Yes Status: Acute Qualifiers: Hypotension type: hypotension due to drug Qualified Code(s): I95.2 - Hypotension due to drugs (6) Sepsis Current Visit: Yes Status: Acute Qualifiers: Sepsis type: sepsis due to unspecified organism Sepsis acute organ dysfunction status: with acute organ dysfunction Severe sepsis acute organ dysfunction type: acute renal failure Acute renal failure type: unspecified Severe sepsis shock status: with septic shock Qualified Code(s): A41.9 - Sepsis, unspecified organism; R65.21 - Severe sepsis with septic shock; N17.9 - Acute kidney failure, unspecified (7) CKD (chronic kidney disease) Current Visit: Yes Status: Acute Qualifiers: Chronic kidney disease stage: stage 3 (moderate) Chronic kidney disease stage 3 subtype: stage 3b (GFR 30-44) Qualified Code(s): N18.32 - Chronic kidney disease, stage 3b - Plan - continue with physical therapy; - started on clear liquid diet and advance as tolerated - continue with antibiotic therapy - continue withIV fluids - continue withPain control - GI and DVT prophylaxis
--- NOTE | 2022-04-04 23:40 | P.PN ---
Date of Service: 04/04/22 Subjective patient continues to improve. Feeling better. Still with some pain. Will go ahead and Hep-Lock his IV fluids as he is improving. Anticipate discharge in the next 24-48 hours. Physical Examination - Physical Exam General: Alert, In no apparent distress Respiratory: Clear to auscultation bilaterally, Normal air movement Cardiovascular: Regular rate/rhythm, Normal S1 S2 Gastrointestinal: Non-distended, Incision is clean / dry /intact Musculoskeletal: No tenderness Neurological: No focal deficits Assessment and Plan - Problems (Diagnosis) (1) Ischemic colitis status post right hemicolectomy with ileocecal anastomosis Current Visit: Yes Status: Acute (2) HLD (hyperlipidemia) Current Visit: Yes Status: Chronic Qualifiers: Hyperlipidemia type: unspecified Qualified Code(s): E78.5 - Hyperlipidemia, unspecified (3) HTN (hypertension) Current Visit: Yes Status: Chronic Qualifiers: Hypertension type: primary hypertension Qualified Code(s): I10 - Essential (primary) hypertension (4) T2DM (type 2 diabetes mellitus) Current Visit: Yes Status: Chronic Qualifiers: 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 Diabetes mellitus complication status: with hyperglycemia Qualified Code(s): E11.65 - Type 2 diabetes mellitus with hyperglycemia (5) Hypotension Current Visit: Yes Status: Acute Qualifiers: Hypotension type: hypotension due to drug Qualified Code(s): I95.2 - Hypotension due to drugs (6) Sepsis Current Visit: Yes Status: Acute Qualifiers: Sepsis type: sepsis due to unspecified organism Sepsis acute organ dysfunction status: with acute organ dysfunction Severe sepsis acute organ dysfunction type: acute renal failure Acute renal failure type: unspecified Severe sepsis shock status: with septic shock Qualified Code(s): A41.9 - Sepsis, unspecified organism; R65.21 - Severe sepsis with septic shock; N17.9 - Acute kidney failure, unspecified (7) CKD (chronic kidney disease) Current Visit: Yes Status: Acute Qualifiers: Chronic kidney disease stage: stage 3 (moderate) Chronic kidney disease stage 3 subtype: stage 3b (GFR 30-44) Qualified Code(s): N18.32 - Chronic kidney disease, stage 3b - Plan - continue with physical therapy; - advance as tolerated - continue with antibiotic therapy - Hep-Lock IV fluids - continue with pain control - GI and DVT prophylaxis
[2022-04-05] MEDS: PIPER TAZO 3.375 GM in NA CHLORIDE 0.9% 100 ML IV SCH ×3 (00:43→17:15)
[2022-04-05] MEDS: METRONIDAZOLE 500mg IVPB 500 MG/100 ML BAG IV SCH ×3 (00:43→15:51)
[2022-04-05] MEDS: NA CHLORIDE 0.9% 1,000 ML IV SCH ×3 (01:49→22:25)
[2022-04-05] MEDS: HYDROCODONE/APAP 10/325 TAB PO PRN ×3 (02:16→15:52)
[2022-04-05] MEDS: MORPHINE 4 MG/ML SYR IV PRN ×6 (02:17→22:23)
[2022-04-05] MEDS: METOPROLOL TAR 25 MG TAB PO SCH ×2 (06:20→17:14)
[2022-04-05] MEDS: GABAPENTIN 400 MG CAP PO SCH ×3 (08:21→20:53)
[2022-04-05] MEDS: FINASTERIDE 5 MG TAB PO SCH (08:21)
[2022-04-05] MEDS: ENSURE CLEAR 200 ML CAN PO SCH ×2 (08:22→20:54)
[2022-04-05] MEDS: LOSARTAN POTASSIUM 50 MG TABLET PO SCH (09:00)
[2022-04-05] MEDS: HOME MED 1 EA UNK (Fenofibrate [Fenofibrate] 50 MG Capsule) PO SCH (09:00)
[2022-04-05] MEDS ORDERED: PANTOPRAZOLE 40MG TABLET PO ONE (11:00)
[2022-04-05 14:49] LABS: Absolute Lymphocytes (CBC) 0.8 K/uL (0.7-4.9); Lymphocytes % 8.7 % (15.3-44.8); MCV 87.5 fL (80-100); MPV 8.4 fL (7.6-11.3); RBC Red Blood Cell Count 4.69 M/uL (4.33-5.43)
[2022-04-05] MEDS: ONDANSETRON 4 MG/2 ML VIAL IV PRN (18:47)
[2022-04-05] MEDS ORDERED: MINERAL OIL 30 ML UCUP PO ONE ×2 (20:04→22:14)
[2022-04-05] MEDS: AMITRIPTYLINE 25 MG TAB PO SCH (20:53)
[2022-04-05] MEDS: TAMSULOSIN 0.4 MG SR CAP PO SCH (20:53)
[2022-04-06] MEDS: METRONIDAZOLE 500mg IVPB 500 MG/100 ML BAG IV SCH ×3 (01:20→16:14)
[2022-04-06] MEDS: PIPER TAZO 3.375 GM in NA CHLORIDE 0.9% 100 ML IV SCH ×3 (01:27→16:14)
[2022-04-06] MEDS: MORPHINE 4 MG/ML SYR IV PRN ×4 (01:54→13:26)
[2022-04-06] MEDS ORDERED: FAMOTIDINE 20 MG/2 ML VIAL IV ONE (06:14)
[2022-04-06] MEDS: METOPROLOL TAR 25 MG TAB PO SCH ×2 (06:38→17:23)
[2022-04-06] MEDS: HYDROCODONE/APAP 10/325 TAB PO PRN ×3 (06:46→18:24)
[2022-04-06 07:42] LABS: BUN Blood Urea Nitrogen 13 mg/dL (7-18); Glomerular Filtration Rate 81 ml/min (=/>90); Glucose Level 263 mg/dL (74-106); Potassium 4.8 mmol/L (3.5-5.1); Sodium Level 140 mmol/L (136-145)
[2022-04-06 07:44] LABS: Bicarbonate 9 mmol/L (21-32)
[2022-04-06] MEDS: ENSURE CLEAR 200 ML CAN PO SCH ×2 (09:00→20:59)
[2022-04-06] MEDS: HOME MED 1 EA UNK (Fenofibrate [Fenofibrate] 50 MG Capsule) PO SCH (09:00)
[2022-04-06] MEDS: LOSARTAN POTASSIUM 50 MG TABLET PO SCH (09:04)
[2022-04-06] MEDS: FINASTERIDE 5 MG TAB PO SCH (09:04)
[2022-04-06] MEDS: GABAPENTIN 400 MG CAP PO SCH ×3 (09:04→20:58)
--- NOTE | 2022-04-06 09:19 | P.PN ---
Date of Service: 04/05/22 Subjective Patient doing better. Getting out of bed in walking a little bit more. Tolerating his diet. Having flatus. Still has not have bowel movement. Will speak with General surgery in a.m. and possible discharge home tomorrow. Physical Examination - Physical Exam General: Alert, In no apparent distress Respiratory: Clear to auscultation bilaterally, Normal air movement Cardiovascular: Regular rate/rhythm, Normal S1 S2 Gastrointestinal: Non-distended, Incision is clean / dry /intact Musculoskeletal: No tenderness Neurological: No focal deficits Assessment and Plan - Problems (Diagnosis) (1) Ischemic colitis status post right hemicolectomy with ileocecal anastomosis Current Visit: Yes Status: Acute (2) HLD (hyperlipidemia) Current Visit: Yes Status: Chronic Qualifiers: Hyperlipidemia type: unspecified Qualified Code(s): E78.5 - Hyperlipidemia, unspecified (3) HTN (hypertension) Current Visit: Yes Status: Chronic Qualifiers: Hypertension type: primary hypertension Qualified Code(s): I10 - Essential (primary) hypertension (4) T2DM (type 2 diabetes mellitus) Current Visit: Yes Status: Chronic Qualifiers: 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 Diabetes mellitus complication status: with hyperglycemia Qualified Code(s): E11.65 - Type 2 diabetes mellitus with hyperglycemia (5) Hypotension Current Visit: Yes Status: Acute Qualifiers: Hypotension type: hypotension due to drug Qualified Code(s): I95.2 - Hypotension due to drugs (6) Sepsis Current Visit: Yes Status: Acute Qualifiers: Sepsis type: sepsis due to unspecified organism Sepsis acute organ dysfunction status: with acute organ dysfunction Severe sepsis acute organ dysfunction type: acute renal failure Acute renal failure type: unspecified Severe sepsis shock status: with septic shock Qualified Code(s): A41.9 - Sepsis, unspecified organism; R65.21 - Severe sepsis with septic shock; N17.9 - Acute kidney failure, unspecified (7) CKD (chronic kidney disease) Current Visit: Yes Status: Acute Qualifiers: Chronic kidney disease stage: stage 3 (moderate) Chronic kidney disease stage 3 subtype: stage 3b (GFR 30-44) Qualified Code(s): N18.32 - Chronic kidney disease, stage 3b - Plan - continue with physical therapy; - advance diet as tolerated - continue with antibiotic therapy - Hep-Lock IV fluids - continue with pain control - Strict blood pressure and blood sugar control - GI and DVT prophylaxis
[2022-04-06] MEDS: NA CHLORIDE 0.9% 1,000 ML IV SCH (10:54)
--- NOTE | 2022-04-06 11:57 | P.PN ---
Subjective Date of Service: 04/06/22 Chief Complaint: Ischemic Colitis No acute events overnight. He reports significant abdominal pain this morning. He states that the pain is generalized and aching in nature. He grades the pain an 8/10 in severity. Review of Systems 10-point ROS is otherwise unremarkable Gastrointestinal: Abdominal Pain Physical Examination - Vital Signs Temperature: 97.6 F Blood Pressure: 156/86 Pulse: 91 Respirations: 16 Pulse Ox (%): 99 - Physical Exam General: Alert, Oriented x3, Mild distress HEENT: Atraumatic, PERRLA, Mucous membr. moist/pink, EOMI, Sclerae nonicteric Neck: Supple, JVD not distended Respiratory: Clear to auscultation bilaterally, Normal air movement Cardiovascular: No edema, Regular rate/rhythm, Normal S1 S2, No gallops, No rubs, No murmurs Capillary refill: <2 Seconds Gastrointestinal: Normal bowel sounds, Soft and benign, Non-distended, No tenderness, No rebound, No guarding Musculoskeletal: No clubbing Integumentary: No rashes Neurological: Normal strength at 5/5 x4 extr, Cranial nerves 3-12 intact, Normal affect Assessment And Plan - Plan # Ischemic Colitis s/p Right Hemicolectomy with Ileocolic Anastamosis # 1/ Blood Cultures positive for Coagulase-Negative Staphylococcus - suspect contaminant - CT abdomen/pelvis = "Mild inflammation is seen surrounding the cecum several mildly prominent lymph nodes present. Pneumatosis is also present in the cecum. This may indicate typhlitis or ischemic colitis of the cecum." - Abdominal ultrasound = "Unremarkable gallbladder ultrasound." - General Surgery consulted and Dr. Duron following - recommendations appreciated - S/P right hemicolectomy with ileocolic anastamosis on 03/31/2022 - Continue piperacillin-tazobactam + metronidazole - Pain control - Advance diet as tolerated - per Surgery # Metabolic Acidosis (mixed - Anion Gap and Non-Anion Gap) - Suspect combination of starvation ketoacidosis with NAGMA from Normal Saline infusion - STAT lactate = 1.7 - Consulted Nephrology and spoke with Dr. 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 Discharge Plan: Home Plan to discharge in: Greater than 2 days
[2022-04-06] MEDS ORDERED: D5W 1,000 ML with NA BICARB 8.4% 100 MEQ IV SCH ×4 (12:00→23:00)
[2022-04-06 12:36] LABS: Arterial Blood Carboxyhemoglob 1.1 % (0-1.5); Blood Gas Oxyhemoglobin 94.1 % (94-97); Blood O2 Saturation 96.2 % (92-98.5)
[2022-04-06] MEDS: SODIUM BICARB 50 MEQ/50ML VIAL IV SCH ×2 (13:25→15:31)
[2022-04-06 14:14] LABS: Specific Gravity 1.019 (1.005-1.030); Urine Bacteria <20 /HPF (<20); Urine Bilirubin NEGATIVE (Negative); Urine Blood Negative (Negative); Urine Clarity Clear (Clear); Urine Color Light-Yellow (Yellow); Urine Crystals Unidentified Few /HPF (None Seen); Urine Glucose 4+ (Over) (Negative); Urine Protein 1+ (Negative); Urine RBC >50 /HPF (None Seen); Urine Urobilinogen Normal (Normal); Urine Yeast with Hyphae Trace /HPF (None Seen); Urine pH 5.5 (5.0-7.0)
--- NOTE | 2022-04-06 14:35 | P.PN ---
Date of Service: 04/06/22 S: Patient states he still has abdominal pain, and that his morphine is not enough. O: Vital signs are stable, looks well, incision is healing, abdomen is distended mildly tympanic but no guarding or rebound on palpation. A: Patient appears to be surgically stable, his white cell count is normal, he is making very little effort to cooperate with the nurses however and has been making some inappropriate comments. He needs to ambulate, sit out the chair, and move. P: I have addressed these issues with the patient. We will change him from morphine to just hydrocodone at this time. He needs to get up and ambulate, sit out in a chair, and work with physical therapy. I have explained that his behavior is unacceptable and if he has any complaints to please address him with me. I will order hydrocodone for him at this time, Dulcolax suppository, and anticipate discharge soon.
[2022-04-06] MEDS ORDERED: MAGNESIUM HYDROXIDE 8% 30 ML PO PRN (14:37)
[2022-04-06] MEDS ORDERED: BISACODYL 10 MG RECTAL SUPP PR ONE (16:00)
[2022-04-06] MEDS: MORPHINE 2 MG/ML SYR IV PRN ×2 (16:13→21:37)
--- NOTE | 2022-04-06 17:06 | P.CNS ---
Date of Consult: 04/06/22 Reason for Consult: Acidosis Requesting Physician: Freddie Worthy Chief Complaint: Ischemic Colitis History of Present Illness: 62 yo HF DM, HLD presented to the ER with an ischemic bowel. He developed worsening acidosis over the course of the hospitalization with associated ketosis. Severe, persistent abdominal pain with no BMs. Patient is a 61-year-old male history of hypertension, diabetes mellitus, hyperlipidemia, depression, asthma, early dementia, and CKD3b who presented to the ED with complaints of abdominal pain. Patient reports that the pain began 3 days ago in his right upper quadrant and significantly worsened today. Where he localizes it is more so the right mid quadrant. His blood pressure has been low although he states that he did take an extra Baxter this morning. His creatinine was 2.[address] was limited to a noncontrast exam which showed possible ischemic colitis versus typhlitis with pneumatosis. He was started on rocephin and flagyl and given sepsis fluids. Several attempts were made to transfer patient but were declined. Patient now meeting septic shock criteria. General surgery to take patient to OR immediately for exploratory laboratory. Allergies ibuprofen Allergy (Verified 03/31/22 03:37) Itching metformin Allergy (Verified 09/12/20 01:06) Shortness of breath Home medications list reviewed: Yes Home Medications: Gabapentin [Neurontin] 800 mg PO TID 09/10/20 Hydrocodone 10/APAP 325 [Baxter 10/325*] 1 tab PO QID 09/10/20 Tramadol HCl [Ultram] 50 mg PO TID 09/10/20 Lovastatin [Altoprev] 40 mg PO 1700 11/28/20 Pantoprazole [Protonix Tab*] 40 mg PO DAILY 11/28/20 Tamsulosin [Flomax*] 0.8 mg PO BEDTIME 11/28/20 Thiamine HCl [Vitamin B-1*] 100 mg PO DAILY #30 tablet 11/29/20 Amitriptyline [Elavil] 25 mg PO BEDTIME 04/01/22 Diclofenac Na [Voltaren D.R] 75 mg PO DAILY PRN 04/01/22 Fenofibrate 54 mg PO DAILY 04/01/22 Finasteride [Proscar] 5 mg PO DAILY 04/01/22 Glipizide [Glipizide ER] 5 mg PO DAILY 04/01/22 Meloxicam, Submicronized [Meloxicam] 15 mg PO DAILY 04/01/22 Mirabegron [Myrbetriq] 25 mg PO DAILY 04/01/22 Topiramate [Topamax*] 50 mg PO DAILY 04/01/22 Verapamil HCl [Calan] 40 mg PO DAILY 04/01/22 - Past Medical/Surgical History Diabetic: Yes -: HTN -: DM -: HLD -: hepatitis c -: CKD -: knee replacement Psychosocial/ Personal History: - Family History Mother Medical History: Other (see notes) Notes: unknown - patient states no contact > 25 years Father Notes: unknown - patient states no contact > 25 years - Social History Smoking Status: Unknown if ever smoked Alcohol use: No CD- Drugs: No Caffeine use: Yes Place of Residence: Home Review of Systems 10-point ROS is otherwise unremarkable General: Weakness, Malaise Gastrointestinal: Abdominal Pain, Distention Neurological: Weakness Physical Examination Temp Pulse Resp BP Pulse Ox 97.7 F 90 16 168/86 H 99 04/06/22 16:00 04/06/22 16:00 04/06/22 16:13 04/06/22 16:00 04/06/22 16:13 General: In no apparent distress, Oriented x3, Cooperative HEENT: Atraumatic Neck: Supple Respiratory: Clear to auscultation bilaterally Cardiovascular: No edema, Regular rate/rhythm Gastrointestinal: Hyperactive, Distended, Tenderness, Guarding Musculoskeletal: No clubbing, No contractures Integumentary: No rashes, No cyanosis Neurological: Normal speech Blood work reviewed in the chart. Imagings Data: EXAM DESCRIPTION: CT - Abdomen Pelvis Wo Contrast - 03/30/2022 2:00 pm CLINICAL HISTORY: Abdominal pain. abd pain COMPARISON: Abdomen Pelvis Wo Contrast dated 12/05/2020 TECHNIQUE: CT imaging of the abdomen and pelvis was performed without contrast. Solid organ, bowel and vascular assessment is limited due to lack of IV and oral contrast. All CT scans are performed using dose optimization technique as appropriate and may include automated exposure control or mA/KV adjustment according to patient size. FINDINGS: The lower lung calvert are clear. The liver, spleen, pancreas, adrenal glands and kidneys are within normal limits for a limited non-contrast examination. No bowel obstruction, free air, free fluid or abscess. There is mild inf lammation surrounding the cecum with small adjacent lymph nodes present. Pneumatosis may also be present in the region of the cecum. Mild sigmoid diverticulosis. The appendix is normal. Small fat containing left inguinal hernia. The osseous structures are within normal limits. IMPRESSION: Mild inflammation is seen surrounding the cecum several mildly prominent lymph nodes present. Pneumatosis is also present in the cecum. This may indicate typhlitis or ischemic colitis of the cecum. A limited non-contrast examination was performed as detailed. Conclusions/Impression: Proteinuria -Continue Losartan Hypokalemia -Monitor level AG Metabolic Acidosis likely starvation ketosis Respiratory compensation Mild NAG Metabolic Acidosis -Recommend insulin -Start Bicarb gtt -Bicarb IV X2 HTN with CKD -Continue Losartan -Continue Metoprolol DM II with CKD & Polyneuropathy -Start Lantus 5mg qhs -Start RISS -Continue Gabapentin Moderate malnutrition -Advance nutrition as tolerated -Bowel regimen as ordered BPH with LUTS -Continue Flomax -Continue Finasteride HCV, unclear status -Check LFT Case reviewed with Dr. Worthy Thank you kindly for the consultation.
[2022-04-06 19:13] LABS: Potassium 4.1 mmol/L (3.5-5.1)
[2022-04-06 19:16] LABS: ALT/SGPT < 10 U/L (12-78); AST/SGOT 6 U/L (15-37); Albumin 2.5 g/dL (3.4-5.0); Alkaline Phosphatase 84 U/L (45-117); Bilirubin Direct 0.1 mg/dL (0-0.2); Bilirubin Total 0.4 mg/dL (0.2-1.0); Protein, Total 6.9 g/dL (6.4-8.2)
[2022-04-06] MEDS ORDERED: GLUCAGON 1 MG/VIAL IM PRN (19:57)
[2022-04-06] MEDS ORDERED: D50W 25 GM/50 ML SYRINGE IV PRN (19:57)
[2022-04-06] MEDS ORDERED: D10W 125 ML IV PRN (20:01)
[2022-04-06] MEDS: AMITRIPTYLINE 25 MG TAB PO SCH (20:58)
[2022-04-06] MEDS: TAMSULOSIN 0.4 MG SR CAP PO SCH (20:58)
[2022-04-06] MEDS: INSULIN GLARGINE 100 UNIT/ML SQ SCH (21:00)
[2022-04-06] MEDS ORDERED: INSULIN -REGULAR HUMAN 50 UNIT/0.5 ML ML SQ SCH (21:00)
[2022-04-06 22:39] LABS: Potassium 3.8 mmol/L (3.5-5.1)
[2022-04-07] MEDS: PIPER TAZO 3.375 GM in NA CHLORIDE 0.9% 100 ML IV SCH ×3 (00:23→17:31)
[2022-04-07] MEDS: METRONIDAZOLE 500mg IVPB 500 MG/100 ML BAG IV SCH ×3 (00:23→16:59)
[2022-04-07] MEDS: HYDROCODONE/APAP 10/325 TAB PO PRN ×3 (01:43→20:35)
[2022-04-07] MEDS: ONDANSETRON 4 MG/2 ML VIAL IV PRN ×3 (01:43→20:37)
[2022-04-07] MEDS: METOPROLOL TAR 25 MG TAB PO SCH ×2 (05:23→17:31)
[2022-04-07] MEDS: MORPHINE 2 MG/ML SYR IV PRN ×4 (05:23→22:35)
[2022-04-07 05:50] LABS: Absolute Lymphocytes (CBC) 0.5 K/uL (0.7-4.9); Lymphocytes % 5.3 % (15.3-44.8); MCV 85.9 fL (80-100); MPV 8.2 fL (7.6-11.3); RBC Red Blood Cell Count 3.84 M/uL (4.33-5.43)
[2022-04-07 06:11] LABS: AST/SGOT 7 U/L (15-37); Albumin 2.4 g/dL (3.4-5.0); Alkaline Phosphatase 78 U/L (45-117); BUN Blood Urea Nitrogen 16 mg/dL (7-18); Bicarbonate 16 mmol/L (21-32); Bilirubin Total 0.6 mg/dL (0.2-1.0); Glomerular Filtration Rate 87 ml/min (=/>90); Glucose Level 325 mg/dL (74-106); Magnesium 1.7 mg/dL (1.8-2.4); Protein, Total 6.2 g/dL (6.4-8.2); Sodium Level 141 mmol/L (136-145); Uric Acid 4.8 mg/dL (3.5-7.2)
[2022-04-07 06:30] LABS: ALT/SGPT < 10 U/L (12-78)
[2022-04-07 06:43] LABS: Arterial Blood Carboxyhemoglob 1.4 % (0-1.5); Blood Gas Oxyhemoglobin 94.1 % (94-97); Blood O2 Saturation 96.6 % (92-98.5)
[2022-04-07] MEDS ORDERED: MAGNESIUM SULFATE 1 gm IVPB 1 GM/100 ML BAG IV ONE (08:00)
[2022-04-07] MEDS ORDERED: POTASSIUM CL SA 10 MEQ TAB PO ONE (08:00)
[2022-04-07] MEDS: GABAPENTIN 400 MG CAP PO SCH ×3 (08:13→20:35)
[2022-04-07] MEDS: FINASTERIDE 5 MG TAB PO SCH (08:13)
[2022-04-07] MEDS: LOSARTAN POTASSIUM 50 MG TABLET PO SCH (08:18)
[2022-04-07] MEDS: ENSURE CLEAR 200 ML CAN PO SCH ×2 (08:31→20:37)
[2022-04-07] MEDS: INSULIN -REGULAR HUMAN 50 UNIT/0.5 ML ML SQ SCH ×4 (08:45→23:14)
[2022-04-07] MEDS ORDERED: D5 0.45 NS 1,000 ML IV SCH (09:00)
[2022-04-07] MEDS ORDERED: POTASSIUM 25 MEQ EFFERV TAB PO ONE (10:00)
[2022-04-07] MEDS ORDERED: MINERAL OIL 30 ML UCUP PO ONE (13:58)
--- NOTE | 2022-04-07 14:05 | P.PN ---
Date of Service: 04/07/22 S: Patient states that he is sleepy today, abdomen is distended, he can feel gas moving inside but still no bowel movement. No appetite. [Says he never eats anyway] O: Abdomen is mildly distended, no guarding or rebound. A: Patient appears to have prolonged postop ileus. Morphine has been cut back as as hydrocodone. Had some electrolyte abnormalities as well as acidosis being corrected at this time. P: Patient received milk of magnesia yesterday will repeat today in addition to some mineral oil.
[2022-04-07] MEDS: Ringers Lactate 1,000 ML IV SCH (14:25)
[2022-04-07] MEDS: KCL 20 MEQ/100 mL IVPB 20 MEQ/100 ML BAG IV SCH ×3 (15:03→19:12)
[2022-04-07 15:36] LABS: UR PROTEIN 37.5 mg/dL (<11.9); Urine Protein/Creatinine Ratio 1.21 ratio (<0.15)
[2022-04-07 15:47] LABS: Specific Gravity 1.026 (1.005-1.030); Urine Bacteria <20 /HPF (<20); Urine Bilirubin NEGATIVE (Negative); Urine Blood Negative (Negative); Urine Clarity Clear (Clear); Urine Color Light-Yellow (Yellow); Urine Glucose 4+ (Over) (Negative); Urine Mucus Slight /HPF (None Seen); Urine Protein TRACE (Negative); Urine RBC 21-50 /HPF (None Seen); Urine Urobilinogen Normal (Normal)
--- NOTE | 2022-04-07 16:46 | P.PN ---
Subjective Date of Service: 04/07/22 Chief Complaint: Ischemic Colitis No acute events overnight. He reports that his abdominal pain is improving. He reports that he is having flatus, but no bowel movement as of yet. He grades the pain a 3-4/10 in severity. Review of Systems 10-point ROS is otherwise unremarkable Gastrointestinal: Abdominal Pain, Constipation Physical Examination - Vital Signs Temperature: 98.4 F Blood Pressure: 159/92 Pulse: 81 Respirations: 16 Pulse Ox (%): 95 Assessment And Plan - Plan - Physical Exam General: Alert, Oriented x3, Mild distress HEENT: Atraumatic, PERRLA, Mucous membr. moist/pink, EOMI, Sclerae nonicteric Neck: Supple, JVD not distended Respiratory: Clear to auscultation bilaterally, Normal air movement Cardiovascular: No edema, Regular rate/rhythm, Normal S1 S2, No gallops, No rubs, No murmurs Capillary refill: <2 Seconds Gastrointestinal: Mid-line surgical scar is clean, dry, and intact. Hypoactive bowel sounds, Soft and benign, Distended, No tenderness, No rebound, No guarding Musculoskeletal: No clubbing Integumentary: No rashes Neurological: Normal strength at 5/5 x4 extr, Cranial nerves 3-12 intact, Normal affect # Ischemic Colitis s/p Right Hemicolectomy with Ileocolic Anastamosis # 1/3 Blood Cultures positive for Coagulase-Negative Staphylococcus - suspect contaminant - CT abdomen/pelvis = "Mild inflammation is seen surrounding the cecum several mildly prominent lymph nodes present. Pneumatosis is also present in the cecum. This may indicate typhlitis or ischemic colitis of the cecum." - Abdominal ultrasound = "Unremarkable gallbladder ultrasound." - General Surgery consulted and Dr. Duron following - recommendations ap preciated - S/P right hemicolectomy with ileocolic anastamosis on 03/31/2022 - Continue piperacillin-tazobactam + metronidazole per Surgery - Pain control - wean off of IV morphine as tolerated - Advance diet as tolerated - per Surgery # Metabolic Acidosis (mixed - Anion Gap and Non-Anion Gap) - Suspect combination of starvation ketoacidosis with NAGMA from Normal Saline infusion - STAT lactate (04/06) = 1.7 - Consulted Nephrology and spoke with Dr. 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
--- NOTE | 2022-04-07 17:10 | P.PN ---
Date of Service: 04/07/22 Vital Signs Temp Pulse Resp BP Pulse Ox 98.4 F 81 16 159/92 H 95 04/07/22 16:48 04/07/22 16:48 04/07/22 16:56 04/07/22 16:48 04/07/22 16:56 Medications Hydrocodone Bitart/Acetaminophen (Hydrocodone/Apap 10/325 Tab) 1 tab PO Q6H PRN PRN Reason: Pain scale 5-7 (Moderate) Last Admin: 04/07/22 08:26 Dose: 1 tab Amitriptyline HCl (Amitriptyline 25 Mg Tab) 25 mg PO BEDTIME TAMEKA Last Admin: 04/06/22 20:58 Dose: 25 mg Diazepam (Diazepam 5 Mg Tablet) 5 mg PO BEDTIME PRN PRN Reason: INSOMNIA Last Admin: 04/03/22 20:23 Dose: 5 mg Enteral Nutritional Formula (Ensure Clear 200 Ml Can) 237 ml PO BID TAMEKA Last Admin: 04/07/22 08:31 Dose: 200 ml Finasteride (Finasteride 5 Mg Tab) 5 mg PO DAILY TAMEKA Last Admin: 04/07/22 08:13 Dose: 5 mg Gabapentin (Gabapentin 400 Mg Cap) 800 mg PO TID TAMEKA Last Admin: 04/07/22 14:30 Dose: 800 mg Glucagon (Glucagon 1 Mg/Vial) 1 mg IM 1X PRN PRN Reason: HYPOGLYCEMIA Hydralazine HCl (Hydralazine Hcl 20 Mg/Ml Vial) 10 mg IV Q4HP PRN PRN Reason: FOR SBP>160 OR DBP>100 MMHG Metronidazole/Sodium Chloride (Flagyl 500mg/100 Ml Iv Premix) 500 mg in 100 mls @ 200 mls/hr IV Q8HR TAMEKA; Protocol Last Admin: 04/07/22 16:59 Dose: 100 mls Piperacillin Sod/Tazobactam (Sod 3.375 gm/ Sodium Chloride) 100 mls @ 25 mls/hr IV Q8HR TAMEKA; Protocol Last Admin: 04/07/22 10:08 Dose: 100 mls Dextrose (Dextrose 10% Water Iv Soln.) 125 mls @ 0 mls/hr IV PRN PRN; Protocol PRN Reason: HYPOGLYCEMIA Lactated Ringer's (Lactated Ringers) 1,000 mls @ 100 mls/hr IV .Q10H TAMEKA Last Admin: 04/07/22 14:25 Dose: 1,000 mls Potassium Chloride (Kcl 20 Meq/100 Ml Ivpb (Premix)) 20 meq in 100 mls @ 50 mls/hr IV Q2H [facility]; Protocol Stop: 04/07/22 20:59 Last Admin: 04/07/22 16:59 Dose: 100 mls Insulin Glargine (Insulin Glargine 100 Unit/Ml) 5 unit SQ BEDTIME TAMEKA Last Admin: 04/06/22 21:00 Dose: 5 unit Insulin Human Regular (Insulin -Regular Human 50 Unit/0.5 Ml Ml) 0 unit SQ ACHS [facility]; Protocol Last Admin: 04/07/22 16:58 Dose: 7 unit Losartan Potassium (Losartan Potassium 50 Mg Tablet) 50 mg PO DAILY [facility] Last Admin: 04/07/22 08:18 Dose: 50 mg Magnesium Hydroxide (Magnesium Hydroxide 8% 30 Ml) 30 ml PO DAILY PRN PRN Reason: CONSTIPATION Last Admin: 04/07/22 12:30 Dose: 30 ml Metoprolol Tartrate (Metoprolol Tar 25 Mg Tab) 25 mg PO BID 6AM 6PM [facility] Last Admin: 04/07/22 05:23 Dose: 25 mg Morphine Sulfate (Morphine 2 Mg/Ml Syr) 2 mg IV Q6H PRN PRN Reason: Pain scale 5-7 (Moderate) Last Admin: 04/07/22 16:56 Dose: 2 mg Ondansetron HCl (Ondansetron 4 Mg/2 Ml Vial) 4 mg IV Q6H PRN PRN Reason: NAUSEA / VOMITING Last Admin: 04/07/22 12:28 Dose: 4 mg Sodium Chloride (Flush Normal Saline 10 Ml) 10 ml IV BID [facility] Last Admin: 04/07/22 08:19 Dose: 10 ml Tamsulosin HCl (Tamsulosin 0.4 Mg Sr Cap) 0.8 mg PO BEDTIME [facility] Last Admin: 04/06/22 20:58 Dose: 0.8 mg Microbiology Results 03/30/22 15:09 Blood - Blood Aerobic Blood Culture - Final No growth in 5 days. 03/30/22 15:09 Blood - Blood Anaerobic Blood Culture - Final 03/30/22 15:09 Blood - Blood Aerobic Blood Culture - Final 03/30/22 15:09 Blood - Blood Blood Culture Gram Stain - Final 03/30/22 15:09 Blood - Blood Anaerobic Blood Culture - Final Assessment/ Plan: Nephrology No dyspnea No chest pain Waxing and waning abdominal pain. +Flatus -BM No acute events overnight Vitals, medications, blood work and imaging reviewed in the chart. General: In no apparent distress, Oriented x3, Cooperative HEENT: Atraumatic Neck: Supple Respiratory: Clear to auscultation bilaterally Cardiovascular: No edema, Regular rate/rhythm Gastrointestinal: Hyperactive, Distended, Tenderness, Guarding Musculoskeletal: No clubbing, No contractures Integumentary: No rashes, No cyanosis Neurological: Normal speech Blood work reviewed in the chart. Imagings Data: EXAM DESCRIPTION: CT - Abdomen Pelvis Wo Contrast - 03/30/2022 2:00 pm CLINICAL HISTORY: Abdominal pain. abd pain COMPARISON: Abdomen Pelvis Wo Contrast dated 12/05/2020 TECHNIQUE: CT imaging of the abdomen and pelvis was performed without contrast. Solid organ, bowel and vascular assessment is limited due to lack of IV and oral contrast. All CT scans are performed using dose optimization technique as appropriate and may include automated exposure control or mA/KV adjustment according to patient size. FINDINGS: The lower lung calvert are clear. The liver, spleen, pancreas, adrenal glands and kidneys are within normal limits for a limited non-contrast examination. No bowel obstruction, free air, free fluid or abscess. There is mild inflammation surrounding the cecum with small adjacent lymph nodes present. Pneumatosis may also be present in the region of the cecum. Mild sigmoid diverticulosis. The appendix is normal. Small fat containing left inguinal hernia. The osseous structures are within normal limits. IMPRESSION: Mild inflammation is seen surrounding the cecum several mildly pro minent lymph nodes present. Pneumatosis is also present in the cecum. This may indicate typhlitis or ischemic colitis of the cecum. A limited non-contrast examination was performed as detailed. Conclusions/Impression: CKD I with Proteinuria likely DM kidney disease -No NSAIDs -Continue Losartan Hypokalemia -Replete potassium as ordered AG Metabolic Acidosis likely starvation ketosis -Continue insulin therapy -Change IVF to D5 1/2NS HTN with CKD -Continue Losartan -Continue Metoprolol DM II with CKD & Polyneuropathy -Continue Lantus and titrate as needed -Increase RISS to moderate -Continue Gabapentin Moderate malnutrition with anorexia Ileus -Advance nutrition as tolerated -Bowel regimen as ordered BPH with LUTS -Continue Flomax -Continue Finasteride HCV, unclear status Case reviewed with Dr. Worthy
[2022-04-07] MEDS ORDERED: POTASSIUM 25 MEQ EFFERV TAB FT ONE (17:12)
--- NOTE | 2022-04-07 18:38 | PN ---
Date of Progress Note: 04/07/2022 Subjective: The patient was admitted to the hospital with abdominal pain. The patient had hyperlipidemia and diabetes. Patient found to have acidosis. For that reason, we have been consulted. The patient's workup of acidosis show pH of 7.17. The patient was started on bicarb drip. Today, acidosis has been improved. PH 7.4. Physical Examination: Vital Signs: When I saw the patient, blood pressure 159/92, pulse of 81, afebrile. Chest: Clear to auscultation. Heart: S1, S2. Regular. Abdomen: Tender. No guarding or rebound. Extremities: No edema. Neuro: Alert. No focality. Laboratory Data: For the patient, pH 7.4, CO2 26, O2 84. Sodium 140, potassium 3.8, bicarb 16, BUN 16, creatinine 1, blood sugar 320, calcium 9. Current Medications: Include metronidazole, Zosyn, Flomax, losartan 50, metoprolol, diazepam, gabapentin 800 t.i.d., Pepcid, Zofran, D5 0.5, finasteride. Assessment And Plan: 1. Non-anion gap metabolic acidosis with hyperchloremia. I going to change IV fluid to LR with the same rate. We will continue to monitor the patient. We will go ahead and send for urine electrolytes to evaluate if it is secondary to RTA or secondary to the gastrointestinal loss, and we will follow up. 2. Hyponatremia. We will change IV fluid to lactated Ringer. We will follow up. 3. Diabetes, not controlled. We will follow up with the primary. 4. Acute kidney injury secondary to prerenal dehydration, recovered, resolved. Time spent examining the patient [id number], reviewing data, lab and radiology, discussing the case with the patient, discussing the case with team lead including nursing and ICU, hemodialysis nurse, and hospitalist more than 35 minutes. SUNIL Voice ID: [id number] Report ID: [id number] [email or web address]
[2022-04-07 19:16] LABS: Potassium 3.1 mmol/L (3.5-5.1)
[2022-04-07] MEDS: AMITRIPTYLINE 25 MG TAB PO SCH (20:35)
[2022-04-07] MEDS: TAMSULOSIN 0.4 MG SR CAP PO SCH (20:35)
[2022-04-07] MEDS: DIAZEPAM 5 MG TABLET PO PRN (20:37)
[2022-04-07] MEDS: INSULIN GLARGINE 100 UNIT/ML SQ SCH (23:14)
[2022-04-08 00:25] VITALS: O2SAT 98
[2022-04-08] MEDS: PIPER TAZO 3.375 GM in NA CHLORIDE 0.9% 100 ML IV SCH ×3 (02:13→17:51)
[2022-04-08] MEDS: Ringers Lactate 1,000 ML IV SCH (02:13)
[2022-04-08] MEDS: HYDROCODONE/APAP 10/325 TAB PO PRN ×3 (02:14→20:36)
[2022-04-08] MEDS: METRONIDAZOLE 500mg IVPB 500 MG/100 ML BAG IV SCH ×3 (02:14→16:49)
[2022-04-08] MEDS: MORPHINE 2 MG/ML SYR IV PRN ×2 (04:11→11:09)
[2022-04-08 04:50] LABS: Magnesium 2.2 mg/dL (1.8-2.4); Potassium 3.4 mmol/L (3.5-5.1)
[2022-04-08] MEDS: ONDANSETRON 4 MG/2 ML VIAL IV PRN ×2 (05:57→12:49)
[2022-04-08] MEDS: KCL 20 MEQ/100 mL IVPB 20 MEQ/100 ML BAG IV SCH ×2 (05:57→11:11)
[2022-04-08] MEDS: METOPROLOL TAR 25 MG TAB PO SCH ×2 (06:00→17:51)
[2022-04-08] MEDS: INSULIN -REGULAR HUMAN 50 UNIT/0.5 ML ML SQ SCH ×4 (07:30→20:38)
[2022-04-08] MEDS: ENSURE CLEAR 200 ML CAN PO SCH ×2 (09:00→20:38)
[2022-04-08] MEDS: LOSARTAN POTASSIUM 50 MG TABLET PO SCH (09:00)
[2022-04-08] MEDS: GABAPENTIN 400 MG CAP PO SCH ×3 (09:00→20:36)
[2022-04-08] MEDS: FINASTERIDE 5 MG TAB PO SCH (09:00)
--- NOTE | 2022-04-08 10:56 | RAD REPORT ---
EXAM DESCRIPTION: RAD - Upper GI W/KUB - 04/08/2022 10:47 am CLINICAL HISTORY: Vomiting COMPARISON: Abdomen Pelvis Wo Contrast dated 03/30/2022 FINDINGS: On the vice president compliance image, diffuse gaseous distention of the bowel is identified. The patient eliezer nk multiple sips of water soluble contrast. No intrinsic or extrinsic abnormality of the esophagus id entified. Contrast opacified the stomach with fairly quick egress of contrast into the duodenum. The duodenum is diffusely distended but otherwise unremarkable. No fixed obstruction is identified. No mu cosal abnormality identified. IMPRESSION: Distended small bowel including the duodenum but without obstruction may reflect an ileu s.
[2022-04-08] MEDS: Ringers Lactate 1,000 ML with POTASSIUM CL 20 MEQ IV SCH ×2 (13:11)
[2022-04-08] MEDS ORDERED: DIAZEPAM 5 MG TABLET PO PRN (14:47)
--- NOTE | 2022-04-08 14:47 | P.PN ---
Date of Service: 04/08/22 S: Patient has no specific complaints, did have some bowel movements today. Still asking for pain medicine but admits he really does not need it. 0: Wounds are clean, abdomen is soft, A: Patient is having bowel movements now. Abdominal pain is much less. His surgical incision is clean. It appears that his postoperative ileus has resolved. P: Anticipate patient's discharge in the a.m. He has a pain contract and we will not prescribe narcotics for him on discharge. He is comfortable with this decision, and will follow-up with me in my office next week.
--- NOTE | 2022-04-08 15:11 | PN ---
Date of Progress Note: 04/08/2022 Subjective: The patient was admitted with abdominal pain. The patient had hemicolectomy. The patient still complaining from abdominal pain. Physical Examination: General: When I saw the patient, the patient lying in bed, no distress except the pain. Vital Signs: Blood pressure 150/87, pulse of 89. Chest: Clear to auscultation. Heart: S1, S2, regular. Abdomen: Soft, tender. No guarding. Extremities: No edema. Neurologic: Alert. No focality. Laboratory Data: WBC 9.9, H and H 10.9/33. Sodium 141, potassium 3.4, bicarb 21, BUN 15, creatinine 0.8. Calcium 8.6, magnesium 2.2. Assessment And Plan: 1. Acute kidney injury secondary to prerenal, secondary to gastrointestinal loss, recovered, resolved. 2. Non-anion gap metabolic acidosis secondary to gastrointestinal loss/saline induced status post bicarb infusion, recovered, resolved. Off bicarb. Seen yesterday, placed on lactated Ringer's. We will continue to monitor. Continue lactated Ringer's. 3. Hypokalemia. We will supplement. I am going to add potassium to his lactated Ringer's. 4. Diabetes, by primary. 5. Hyponatremia, secondary to depletional, recovered, resolved. 6. Ischemic colitis, status post hemicolectomy. Continue current antibiotic. Follow up with surgery. Time spent examining the patient [id number], reviewing data, lab and radiology, discussing the case with the patient, discussing the case with promotions team leader including nursing and hospitalist more than 35 minutes SUNIL Voice ID: [id number] Report ID: [id number] MTDSheela
--- NOTE | 2022-04-08 17:28 | P.PN ---
Subjective Date of Service: 04/08/22 Chief Complaint: Ischemic Colitis This morning, he had an episode of nausea/vomiting, but this improved with anti- emetics. He has had a bowel movement and his abdominal pain is gradually improving. Plan to discontinue IV pain medications today and monitor. Anticipate discharge in the morning. Review of Systems 10-point ROS is otherwise unremarkable Gastrointestinal: Nausea, Vomiting, Abdominal Pain Physical Examination - Vital Signs Temperature: 98.6 F Blood Pressure: 147/80 Pulse: 86 Respirations: 16 Pulse Ox (%): 95 Assessment And Plan - Plan - Physical Exam General: Alert, Oriented x3, Mild distress HEENT: Atraumatic, PERRLA, Mucous membr. moist/pink, EOMI, Sclerae nonicteric Neck: Supple, JVD not distended Respiratory: Clear to auscultation bilaterally, Normal air movement Cardiovascular: No edema, Regular rate/rhythm, Normal S1 S2, No gallops, No rubs, No murmurs Capillary refill: <2 Seconds Gastrointestinal: Mid-line surgical scar is clean, dry, and intact. Hypoactive bowel sounds, Soft and benign, Distended, Mild generalized tenderness, No rebound, No guarding Musculoskeletal: No clubbing Integumentary: No rashes Neurological: Normal strength at 5/5 x4 extr, Cranial nerves 3-12 intact, Normal affect # Ischemic Colitis s/p Right Hemicolectomy with Ileocolic Anastamosis # 1/3 Blood Cultures positive for Coagulase-Negative Staphylococcus - suspect contaminant - CT abdomen/pelvis = "Mild inflammation is seen surrounding the cecum several mildly prominent lymph nodes present. Pneumatosis is also present in the cecum. This may indicate typhlitis or ischemic colitis of the cecum." - Abdominal ultrasound = "Unremarkable gallbladder ultrasound." - General Surgery consulted and Dr. Duron following - recommendations appreciated - S/P right hemicolectomy with ileocolic anastamosis on 03/31/2022 - Continue piperacillin-tazobactam + metronidazole per Surgery - Pain control - Discontinue IV morphine today - Advance diet as tolerated - per Surgery # Metabolic Acidosis (mixed - Anion Gap and Non-Anion Gap) - Suspect combination of starvation ketoacidosis with NAGMA from Normal Saline infusion - STAT lactate (04/06) = 1.7 - Consulted Nephrology and spoke with Dr. 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
[2022-04-08] MEDS: TAMSULOSIN 0.4 MG SR CAP PO SCH (20:37)
[2022-04-08] MEDS: AMITRIPTYLINE 25 MG TAB PO SCH (20:37)
[2022-04-08] MEDS: INSULIN GLARGINE 100 UNIT/ML SQ SCH (20:39)
[2022-04-08] MEDS ORDERED: POTASSIUM CL SA 10 MEQ TAB PO ONE (21:00)
[2022-04-09] MEDS: PIPER TAZO 3.375 GM in NA CHLORIDE 0.9% 100 ML IV SCH ×2 (00:38→08:41)
[2022-04-09] MEDS: Ringers Lactate 1,000 ML with POTASSIUM CL 20 MEQ IV SCH ×2 (00:40)
[2022-04-09] MEDS: METRONIDAZOLE 500mg IVPB 500 MG/100 ML BAG IV SCH ×2 (01:00→07:56)
[2022-04-09] MEDS: HYDROCODONE/APAP 10/325 TAB PO PRN (05:45)
[2022-04-09] MEDS: METOPROLOL TAR 25 MG TAB PO SCH (05:45)
[2022-04-09 06:25] LABS: Potassium 3.5 mmol/L (3.5-5.1)
[2022-04-09] MEDS: INSULIN -REGULAR HUMAN 50 UNIT/0.5 ML ML SQ SCH (07:30)
--- NOTE | 2022-04-09 07:42 | P.DS ---
Admission Date: 03/30/22 Discharge Date: 04/09/22 Disposition: ROUTINE DISCHARGE Discharge Condition: GOOD Reason for Admission: Ischemic Colitis Consultations: 1. General Surgery 2. 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 Trever Jay is a 62 year old male with a past medical history significant for type II diabetes mellitus, hypertension, dyslipidemia, and benign prostatic hyperplasia who was admitted to the [facility] on 03/31/2022 for ischemic colitis. He was admitted to the Medicine service. General Surgery was consulted and he was evaluated by Dr. Duron. On 03/31/2022, he underwent a right hemicolectomy with ileocolic anastamosis. He initially did well post-operatively, but his hospital course was complicated by a mixed metabolic acidosis, which was thought to be secondary to Normal Saline and starvation ketoacidosis. Nephrology was consulted and he was treated with dextrose-containing fluids. His anion gap and metabolic acidosis gradually improved. He was weaned off of IV pain medications and did well. Dr. Duron has cleared him for discharge home without any additional antibiotics. He will see him in clinic next week. On 04/09/2022, he was seen on morning rounds and deemed medically stable for discharge. He was discharged with instructions to schedule follow-up appointments with his PCP, his Pain Medicine physician, and General Surgery (Dr. Duron). He was provided prescriptions for metoprolol and losartan. He was given the opportunity to ask questions and reported no further questions. Furthermore, all questions were answered to the best of my ability. A copy of this discharge summary will be sent to the above providers to facilitate continuity of care. Today, I personally spent 20 minutes on his case, of which greater than 50% of the time was spent in patient education, counseling, and coordination of care as described above. - Physical Exam General: Alert, Oriented x3, Mild distress HEENT: Atraumatic, PERRLA, Mucous membr. moist/pink, EOMI, Sclerae nonicteric Neck: Supple, JVD not distended Respiratory: Clear to auscultation bilaterally, Normal air movement Cardiovascular: No edema, Regular rate/rhythm, Normal S1 S2, No gallops, No rubs, No murmurs Capillary refill: <2 Seconds Gastrointestinal: Mid-line surgical scar is clean, dry, and intact. Hypoactive bowel sounds, Soft and benign, Distended, Mild generalized tenderness, No rebound, No guarding Musculoskeletal: No clubbing Integumentary: No rashes Neurological: Normal strength at 5/5 x4 extr, Cranial nerves 3-12 intact, Normal affect Vital Signs/Physical Exam: Temp Pulse Resp BP Pulse Ox 97.0 F 90 16 147/74 H 95 04/09/22 04:00 04/09/22 05:45 04/09/22 05:45 04/09/22 05:45 04/09/22 05:45 Laboratory Data at Discharge: WBC 9.90 K/uL (4.3-10.9) 04/07/22 05:20 Hgb 10.9 g/dL (13.6-17.9) L 04/07/22 05:20 Hct 33.0 % (39.6-49.0) L 04/07/22 05:20 Plt Count 296 K/uL (152-406) 04/07/22 05:20 Sodium 142 mmol/L (136-145) 04/09/22 05:57 Potassium 3.5 mmol/L (3.5-5.1) 04/09/22 05:57 BUN 13 mg/dL (7-18) 04/09/22 05:57 Creatinine 0.76 mg/dL (0.55-1.3) 04/09/22 05:57 Glucose 179 mg/dL (74-106) H 04/09/22 05:57 Uric Acid 4.8 mg/dL (3.5-7.2) 04/07/22 05:20 Phosphorus 3.0 mg/dL (2.5-4.9) 04/06/22 Unknown Magnesium 2.2 mg/dL (1.8-2.4) 04/08/22 04:20 Total Bilirubin 0.6 mg/dL (0.2-1.0) 04/07/22 05:20 AST 7 U/L (15-37) L 04/07/22 05:20 ALT < 10 U/L (12-78) L 04/07/22 05:20 Alkaline Phosphatase 78 U/L (45-117) 04/07/22 05:20 Lipase 71 U/L (73-393) L 03/30/22 08:00 Home Medications: RX: Gabapentin [Neurontin] 800 mg PO TID 09/10/20 RX: Hydrocodone 10/APAP 325 [[place] 10/325*] 1 tab PO QID 09/10/20 RX: Tramadol HCl [Ultram] 50 mg PO TID 09/10/20 RX: Lovastatin [Altoprev] 40 mg PO 1700 11/28/20 RX: Pantoprazole [Protonix Tab*] 40 mg PO DAILY 11/28/20 RX: Tamsulosin [Flomax*] 0.8 mg PO BEDTIME 11/28/20 RX: Thiamine HCl [Vitamin B-1*] 100 mg PO DAILY #30 tablet 11/29/20 RX: Amitriptyline [Elavil*] 25 mg PO BEDTIME 04/01/22 RX: Fenofibrate 54 mg PO DAILY 04/01/22 RX: Finasteride [Proscar] 5 mg PO DAILY 04/01/22 RX: Glipizide [Glipizide ER] 5 mg PO DAILY 04/01/22 RX: Mirabegron [Myrbetriq] 25 mg PO DAILY 04/01/22 RX: Topiramate [Topamax*] 50 mg PO DAILY 04/01/22 RX: Verapamil HCl [Calan] 40 mg PO DAILY 04/01/22 RX: Losartan Potassium [Cozaar*] 50 mg PO DAILY #30 tab 04/09/22 RX: Metoprolol Tartrate [Lopressor*] 25 mg PO BID 6AM 6PM #60 tab 04/09/22 New Medications: RX: Losartan Potassium [Cozaar*] 50 mg PO DAILY #30 tab RX: Metoprolol Tartrate [Lopressor*] 25 mg PO BID 6AM 6PM #60 tab Physician Discharge Instructions: 1. Please schedule a follow-up appointment with your PCP in 3-5 days 2. Please schedule a follow-up appointment with General Surgery (Dr. Duron) in 1-2 weeks 3. Please schedule a follow-up appointment with your Pain Medicine doctor as needed Diet: ADA Activity: Ad maritne Followup: Onur Duron MD [ACTIVE - CAN ADMIT] - NONE,NONE [Primary Care Provider] - Time spent managing pt's care (in minutes): 20
[2022-04-09] MEDS: GABAPENTIN 400 MG CAP PO SCH (08:41)
[2022-04-09] MEDS: FINASTERIDE 5 MG TAB PO SCH (08:41)
[2022-04-09] MEDS: LOSARTAN POTASSIUM 50 MG TABLET PO SCH (08:41)
[2022-04-09] MEDS: ENSURE CLEAR 200 ML CAN PO SCH (08:42)
[2022-04-09 08:47] VITALS: BP 134/77; TEMP 98.2
[2022-04-09] MEDS ORDERED: POTASSIUM CL SA 10 MEQ TAB PO ONE (09:00)
[2022-04-09] MEDS ORDERED: FAMOTIDINE 20 MG TAB PO ONE (09:07)
== END 2022-04-09 12:14 | disposition home or self-care (01) | DRG 853 ==
LOC: ER 07:04 → ERHOLD 20:07 → 3RD-ICU 03-31 04:22 → 4TH 04-01 17:55
PROVIDERS: ADMIT Hospitalist; ATTEND Internal Medicine
PROC: 0DNL0ZZ Release Transverse Colon, Open Approach (ICD-10-PCS; 2022-03-31)
PROC: 0DTF0ZZ Resection of Right Large Intestine, Open Approach (ICD-10-PCS; principal; 2022-03-31 02:00)
DX: A41.9 Sepsis, unspecified organism (principal); R65.21 Severe sepsis with septic shock; K55.9 Vascular disorder of intestine, unspecified; I96 Gangrene, not elsewhere classified; N17.9 Acute kidney failure, unspecified; E87.20 Acidosis, unspecified; E44.0 Moderate protein-calorie malnutrition; K56.7 Ileus, unspecified; E87.1 Hypo-osmolality and hyponatremia; E78.5 Hyperlipidemia, unspecified; I12.9 Hypertensive chronic kidney disease with stage 1 through stage 4 chronic kidney disease, or unspecified chronic kidney disease; N18.32 Chronic kidney disease, stage 3b; E11.22 Type 2 diabetes mellitus with diabetic chronic kidney disease; E11.65 Type 2 diabetes mellitus with hyperglycemia; E11.42 Type 2 diabetes mellitus with diabetic polyneuropathy; N40.1 Benign prostatic hyperplasia with lower urinary tract symptoms; E86.0 Dehydration; E87.8 Other disorders of electrolyte and fluid balance, not elsewhere classified; E87.6 Hypokalemia; I95.9 Hypotension, unspecified; B19.20 Unspecified viral hepatitis C without hepatic coma; R80.9 Proteinuria, unspecified; Z88.1 Allergy status to other antibiotic agents; Z88.8 Allergy status to other drugs, medicaments and biological substances; Z79.84 Long term (current) use of oral hypoglycemic drugs; Z68.30 Body mass index [BMI] 30.0-30.9, adult; Z79.899 Other long term (current) drug therapy; Z96.659 Presence of unspecified artificial knee joint; Z20.822 Contact with and (suspected) exposure to COVID-19
CPT/HCPCS: 36415; 74018; 74176; 74240; 76705; 80048; 80053; 80076; 80307; 81001; 81003; 81015; 82010; 82435; 82570; 82805; 82947; 83605; 83690; 83735; 83880; 83930; 83935; 84100; 84132; 84145; 84156; 84300; 84484; 84550; 84681; 85025; 87040; 87205; 87811; 88307; 93005; 94010; 96365; 96366; 96367; 96375; 97112; 97530; 99291; 99292; A4216; J1100; J1170; J1644; J1815; J2001; J2250; J2270; J2310; J2370; J2405; J2543; J2550; J2710; J3010; J3475; J3480; J7030; J7040; J7120; J7799; P9047

== ENCOUNTER 2022-05-01 18:58 | Emergency (ER) | payer OTHER ==
--- OUTSIDE RECORDS SUMMARY | 2022-05-01 19:03 | XMS REPORT | Continuity of Care Document ---
:1960 Author Organization [facility] t Address [address] [place] [address] [address]. [address] [place] [address] Care Team Providers Name Role Phone Lali BOLIVAR, Juan Carlos Lua Primary Care Physician [phone] Bhanu Kohler Attending Clinician Unavailable ALEXANDRA PANDEY Attending Clinician Unavailable ALEXANDRA PANDEY Attending Clinician Unavailable JUAN CARLOS ESCALERA Attending Clinician Unavailable Juan Carlos Escalera MD Attending Clinician Doctor Unassigned, [place] Attending Clinician Unavailable Lab, Ang - Db Attending Clinician Unavailable Maddie Russo PA-C Attending Clinician Yancy Blair MD Attending Clinician YANCY BLAIR Attending Clinician Unavailable MADDIE RUSSO Attending Clinician Unavailable CHLOE STEWART Attending Clinician Unavailable Rafita Bui MD Attending Clinician Corey Lantigua MD Attending Clinician YANCY BLAIR Admitting Clinician Unavailable Payers Payer Name Policy Type Policy Number Effective Date Expiration Date S freeman DAO/[facility] [id number] 2022 DUAL COMP HMO D 00:00:00 [facility] MEDICAID [place] [id number] 2015 [place] 00:[place]:00 [facility] Dual 53 [id number] 2020 [facility] Complete MCR 00:00:00 - [facility] Problems Condition Condition Condition Status Onset Resolution Last Treating Co mments Source Name Details Category Date Date Treatment Clinician Date Back pain Back pain Disease Active Uni vers 8-21 ity of 00:00: [address] 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 Inflammati Inflammati Disease Active 2017-06 U nivers on of on of 2-17 it[place] of sacroili[place] joint 00 [facility] Spinal Spinal Disease Active 2017-06 Univers stenosis stenosis 2-17 [place] [facility] Branch Chronic Chronic Disease Active 2017-06 Univers pain pain 2-17 ity of disorder disorder 00:00: [address] [id number] Posthitis Problem Comm on [facility] [id number] OAB Problem Common (overactiv Spirit e bladder) [facility] Kidney Calcium Problem Common stone kidney [facility] stones [facility] [id number] Urge Problem Common incontinen Spirit ce [facility] [id number] BPH loc w Problem Com mon urin Spirit obs/LUTS - [facility] Allergies, Adverse Reactions, Alerts Allergy Allergy Status Severity Reaction(s) Onset Inactive Treating Comm ents Source Name Type Date Date Clinician NO KNOWN Drug Active Univers ALLERGIE Class ity of S [facility] Social History Social Habit Start Date Stop Date Quantity Comments Source Sex Assigned At [facility] car[facility] - [facility] History of [facility] - Tobacco Use [facility] Exposure to 2022-03-13 2022-03-23 Not sure University of SARS-CoV-2 00:00:00 14:30:00 [facility] [place] [facility] (event) Branch Alcohol intake 2021-12-31 2021-12-31 Ex-drinker University 00:00:00 00:00:00 (finding) [facility] Tobacco use and 2019-02-01 2019-02-01 Smokeless tobacco Un iversity of exposure 00:00:00 00:00:00 non-user [facility] Smoking Status Start Date Stop Date Source Ex-smoker 2019-02-01 00:00:00 2019-02-01 00:00:00 [facility] Medications Ordered Filled Start Stop Current Ordering Indication Dosage Frequency Signature Comments Components Source Medication Medication Date Date Medication? Clinician (SIG) Name Name Insulin 2021-06 20U inject 20 Univ ers Glargine 1-08 11-08 Units ity of (LANTUS 16:19: 00:00 under the [facility] SOLOSTAR 30 :00 skin in [facility] [address] [place] [address] INSULIN) morning. 100 unit/mL Decrease (3 mL) the long injection acting insulin to 20 units once daily to avoid any low BGs. If fasting BG drops < 90, he will continue decrease the insulin dose. Insulin 2021-06 Yes 20U inject 20 Unive rs Glargine 1-08 Units ity of (LANTUS 00:00: under the [place] SOLOSTWA 00 skin in [facility] [address] Branch INSULIN) morning. 100 unit/mL Decrease (3 mL) the long injection acting insulin to 20 units once daily to avoid any low BGs. If fasting BG drops < 90, he will continue decrease the insulin dose. Insulin 2021-06 Yes 20U inject 20 Unive rs Glargine 1-08 Units ity of (LANTUS 00:00: under the [place] SOLOSTAR 00 skin in [facility] [address] [place] [address] Branch INSULIN) morning. 100 unit/mL Decrease (3 mL) the long injection acting insulin to 20 units once daily to avoid any low BGs. If fasting BG drops < 90, he will continue decrease the insulin dose. fenofibrate 2021-06 Yes [id number] 54mg Take 1 Univers 54 mg 0-19 tablet by ity of tablet 00:00: mouth in [place] 00 the Medical morning. Branch fenofibrate 2021-06 Yes [id number] 54mg Take 1 Univers 54 mg 0-19 tablet by ity of tablet 00:00: mouth in [place] 00 the Medical morning. Branch fenofibrate 2021-06 Yes [id number] 54mg Take 1 Univers 54 mg 0-19 tablet by ity of tablet 00:00: mouth in [place] the Medical morning. Branch fenofibrate 2021-06 Yes [id number] 54mg Take 1 Univers 54 mg 0-19 tablet by ity of tablet 00:00: mouth in [place] the Medical morning. Branch fenofibrate 2021-06 Yes [id number] 54mg Take 1 Univers 54 mg 0-19 tablet by ity of tablet 00:00: mouth in [place] the Medical morning. Branch fenofibrate 2021-06 Yes [id number] 54mg Take 1 Univers 54 mg 0-19 tablet by ity of tablet 00:00: mouth in [place] the Medical morning. Branch Proscar 5 Proscar 5 2021-06- No 1{table QD Proscar 5 MG MG 0-12 10-07 t} MG 00:00: 00:00 00 :00 Proscar 5 Proscar 5 2021-06- No 1{table QD Proscar 5 MG MG 0-12 10-07 t} MG 00:00: 00:00 00 :00 Myrbetriq Myrbetriq 2021-06- No 1{table QD Myrbetriq 25 MG 25 MG 0-12 05-10 t} 25 MG 00:00: 00:00 00 :00 Myrbetriq Myrbetriq 2021-06- No 1{table QD Myrbetriq 25 MG 25 MG 0-12 05-10 t} 25 MG 00:00: 00:00 00 :00 glipiZIDE 2021- Yes [id number] 10mg Take 1 Un [place] XL 10 mg 24 0-10 tablet by ity of hr tablet 00:00: mouth [place] 00 daily with Medical breakfast. Branch glipiZIDE 2021-06 Yes [id number] 10mg Take 1 Un [place] XL 10 mg 24 0-10 tablet by ity of hr tablet 00:00: mouth [place] 00 daily with Medical breakfast. Branch glipiZIDE 2021-06 Yes [id number] 10mg Take 1 Un [place] XL 10 mg 24 0-10 tablet by ity of hr tablet 00:00: mouth 00 daily with Medical breakfast. Branch glipiZIDE 2021-06 Yes [id number] 10mg Take 1 Un [place] XL 10 mg 24 0-10 tablet by ity of hr tablet 00:00: mouth [place] 00 daily with Medical breakfast. [place] glipiZIDE 2021-06 Yes [id number] 10mg Take 1 Un [place] XL 10 mg 24 0-10 tablet by ity of hr tablet 00:00: mouth [place] 00 daily with Medical breakfast. [place] glipiZIDE 2021-06 Yes [id number] 10mg Take 1 Un [place] XL 10 mg 24 0-10 tablet by ity of hr tablet 00:00: mouth [place] 00 daily with Medical breakfast. [place] glipiZIDE 2021-06 Yes [id number] 10mg Take 1 Un [place] XL 10 mg 24 0-10 tablet by ity of hr tablet 00:00: mouth [place] 00 daily with Medical breakfast. [place] glipiZIDE 2021-06 Yes [id number] 10mg Take 1 Un [place] XL 10 mg 24 0-10 tablet by ity of hr tablet 00:00: mouth [place] 00 daily with Medical breakfast. [place] glipiZIDE 2021-06 Yes [id number] 10mg Take 1 Un [place] XL 10 mg 24 0-10 tablet by ity of hr tablet 00:00: mouth [place] 00 daily with Medical breakfast. [place] glipiZIDE 2021-06- No [id number] 10mg Take 1 U nivers 10 mg 0-10 10-10 tablet by ity of tablet 00:00: 00:00 mouth in [place] 00 :00 the Medical morning. [place] glipiZIDE 2021-06- No [id number] 10mg Take 1 U nivers 10 mg 0-10 10-10 tablet by ity of tablet 00:00: 00:00 mouth in [place] 00 :00 the Medical morning. [place] lovastatin 2021-06- No 40mg Take 40 mg Univers 40 mg 0-04 10-04 by mouth ity of tablet 12:53: 00:00 daily. [place] 29 :00 Medical [place] LOVASTATIN 2021-06 Yes [id number] TAKE 1 U nivers 40 mg 0-04 TABLET BY ity of tablet 00:00: MOUTH WITH [place] 00 EVENING Medical MEAL 90 [place] LOVASTATIN 2021-06 Yes [id number] TAKE 1 U nivers 40 mg 0-04 TABLET BY ity of tablet 00:00: MOUTH WITH [place] 00 EVENING Medical MEAL 90 Branch LOVASTATIN 2021-06 Yes [id number] TAKE 1 U nivers 40 mg 0-04 TABLET BY ity of tablet 00:00: MOUTH WITH [place] EVENING Medical MEAL 90 Branch LOVASTATIN 2021-06 Yes [id number] TAKE 1 U nivers 40 mg 0-04 TABLET BY ity of tablet 00:00: MOUTH WITH [place] EVENING Medical MEAL 90 Branch LOVASTATIN 2021-06 Yes [id number] TAKE 1 U nivers 40 mg 0-04 TABLET BY ity of tablet 00:00: MOUTH WITH [place] EVENING Medical MEAL 90 Branch LOVASTATIN 2021-06 Yes [id number] TAKE 1 U nivers 40 mg 0-04 TABLET BY ity of tablet 00:00: MOUTH WITH [place] EVENING Medical MEAL 90 Branch LOVASTATIN 2021-06 Yes [id number] TAKE 1 U nivers 40 mg 0-04 TABLET BY ity of tablet 00:00: MOUTH WITH [place] EVENING Medical MEAL 90 Branch LOVASTATIN 2021-06 Yes [id number] TAKE 1 U nivers 40 mg 0-04 TABLET BY ity of tablet 00:00: MOUTH WITH [place] EVENING Medical MEAL 90 Branch LOVASTATIN 2021-06 Yes [id number] TAKE 1 U nivers 40 mg 0-04 TABLET BY ity of tablet 00:00: MOUTH WITH [place] EVENING Medical MEAL 90 Branch LOVASTATIN 2021-06 Yes [id number] TAKE 1 U nivers 40 mg 0-04 TABLET BY ity of tablet 00:00: MOUTH WITH [place] EVENING Medical MEAL 90 Branch LOVASTATIN 2021-06 Yes [id number] TAKE 1 U nivers 40 mg 0-04 TABLET BY ity of tablet 00:00: MOUTH WITH [place] EVENING Medical MEAL 90 Branch TOPIRAMATE 2021- No 50mg Take 50 mg Univers ORAL 01-26-15 by mouth ity of 14:03: 00:00 at [place] 47 :00 bedtime. Medical Branch tamsulosin 2021- No Take by Uni vers (FLOMAX) 815 08-15 mouth ity of 0.4 mg 24 14:02: 00:00 daily. [place] hr capsule 29 :00 Medical Branch traZODONE 2021- No 100mg Take 100 Un [place] (DESYREL) 8 08-15 mg by ity of 100 mg 14:02: 00:00 mouth at [place] tablet 19 :00 bedtime. Medical Branch Tamsulosin Tamsulosin 2022- No 2{capsu QD Tamsulosin HCl 0.4 MG HCl 0.4 MG 12-24 les} HCl 0.4 MG 00:00: 00:00 00 :00 Tamsulosin Tamsulosin 0 2022- No 2{capsu QD Tamsulosin HCl 0.4 MG HCl 0.4 MG 12-24 les} HCl 0.4 MG 00:00: 00:00 00 :00 topiramate 0 2021- No [id number] 50mg Take 1 Univers 50 mg 12-2215 tablet by ity of tablet 00:00: 00:00 [...] by mouth ity of tablet 13:57: daily. [place] [address] Medical Branch metFORMIN 0 Yes 500mg Take 500 Uni vers 500 mg 5-13 mg by ity of tablet 13:57: mouth [place] 16 daily. Medical Branch pantoprazol 0 Yes 40mg Take 40 mg Univers e 40 mg EC 5-13 by mouth ity o f tablet 13:57: daily. [address] Branch lovastatin 0 Yes 40mg Take 40 mg U nivers 40 mg 5-13 by mouth ity of tablet 13:57: daily. [place] [address] Medical Branch mirtazapine 0 Yes 15mg Take [...] 5-13 mg by ity of 13:57: mouth. [place] [address] Indication Medical s: 2 Branch tablets BID [...] mouth ity of 10 mg 13:57: at [facility] 16 bedtime. Medical Branch HYDROcodone Yes 1{tbl} Take 1 Un [place] -acetaminop 5-13 tablet by ity of hen (NORCO) 13:57: mouth [place] 10-325 mg 16 every 6 Medical tablet (six) Branch hours as needed. meloxicam Yes 15mg Take 15 mg Un [place] 15 mg 5-13 by mouth ity of tablet 13:57: daily. [place] [address] Medical Branch metFORMIN Yes 500mg Take 500 Uni vers 500 mg 5-13 mg by ity of tablet 13:57: mouth [place] 16 daily. Medical Branch pantoprazol Yes 40mg Take 40 mg Univers e 40 mg EC 5-13 by mouth ity o f tablet 13:57: daily. [address] Branch lovastatin Yes 40mg Take 40 mg U nivers 40 mg 5-13 by mouth ity of tablet 13:57: daily. [place] [address] Medical Branch mirtazapine Yes 15mg Take 15 [...] 5-13 mg by ity of 13:57: mouth. [place] [address] Indication Medical s: 2 Branch tablets BID [...] mouth ity of 10 mg 13:57: at [facility] 16 bedtime. Medical Branch HYDROcodone Yes 1{tbl} Take 1 Un [place] -acetaminop 5-13 tablet by ity of hen (NORCO) 13:57: mouth [place] 10-325 mg 16 every 6 Medical tablet (six) Branch hours as needed. meloxicam Yes 15mg Take 15 mg Un [place] 15 mg 5-13 by mouth ity of tablet 13:57: daily. [place] [address] Medical Branch metFORMIN Yes 500mg Take 500 Uni vers 500 mg 5-13 mg by ity of tablet 13:57: mouth [place] 16 daily. Medical Branch pantoprazol Yes 40mg Take 40 mg Univers e 40 mg EC 5-13 by mouth ity o f tablet 13:57: daily. [place] [address] Medical Branch lovastatin Yes 40mg Take 40 mg U nivers 40 mg 5-13 by mouth ity of tablet 13:57: daily. [place] [address] Medical Branch mirtazapine Yes 15mg Take 15 [...] 5-13 mg by ity of 13:57: mouth. [place] [address] Indication Medical s: 2 Branch tablets BID [...] by mouth ity of tablet 13:57: daily. [place] [address] Medical Branch metFORMIN 0 Yes 500mg Take 500 Uni vers 500 mg 5-13 mg by ity of tablet 13:57: mouth [place] 16 daily. Medical Branch pantoprazol 0 Yes 40mg Take 40 mg Univers e 40 mg EC 5-13 by mouth ity o f tablet 13:57: daily. [place] [address] Medical Branch lovastatin 0 Yes 40mg Take 40 mg U nivers 40 mg 5-13 by mouth ity of tablet 13:57: daily. [place] [address] Medical Branch mirtazapine 0 Yes 15mg Take [...] 5-13 mg by ity of 13:57: mouth. [place] [address] Indication Medical s: 2 Branch tablets BID [...] mouth ity of 10 mg 13:57: at [place] tablet 16 bedtime. Medical Branch HYDROcodone 0 Yes 1{tbl} Take 1 Un [place] -acetaminop 5-13 tablet by ity of hen (NORCO) 13:57: mouth [place] 10-325 mg 16 every 6 Medical tablet (six) Branch hours as needed. meloxicam 0 Yes 15mg Take 15 mg Un [place] 15 mg 5-13 by mouth ity of tablet 13:57: daily. [place] [address] Medical Branch metFORMIN 0 Yes 500mg Take 500 Uni vers 500 mg 5-13 mg by ity of tablet 13:57: mouth [place] 16 daily. Medical Branch pantoprazol 0 Yes 40mg Take 40 mg Univers e 40 mg EC 5-13 by mouth ity o f tablet 13:57: daily. [place] [address] Medical Branch lovastatin 0 Yes 40mg Take 40 mg U nivers 40 mg 5-13 by mouth ity of tablet 13:57: daily. [place] [address] Medical Branch mirtazapine 0 Yes 15mg Take 15 mg Univers 15 mg 5-13 by mouth ity of tablet 13:57: at [place] 16 bedtime. Medical Branch SITagliptin 0 Yes Take by Uni vers -metformin 5-13 mouth. ity of (JANUMET 13:57: Indication [place] as XR) 16 s: 2 tabs Medical 50-1,000 mg BID Branch per tablet BUPROPION 0 Yes 150mg Take 150 Uni vers HCL ORAL 5-13 mg by ity of 13:57: mouth. [place] [address] Indication Medical s: 2 Branch tablets BID cyclobenzap 0 Yes 10mg Take 10 mg Univers rine 10 mg 5-13 by mouth 3 ity of tablet 13:57: (three) [place] 16 times Medical daily. Branch gabapentin 0 Yes 800mg Take 800 Un [place] (NEURONTIN) 5-13 mg by ity of 300 mg 13:57: mouth 3 [place] capsule 16 (three) Medical times Branch daily. atorvastati Yes 10mg Take 10 mg Univers n (LIPITOR) 5-13 by mouth ity of 10 mg 13:57: at [facility] 16 bedtime. Medical Branch HYDROcodone Yes 1{tbl} Take 1 Un [place] -acetaminop 5-13 tablet by ity of hen (NORCO) 13:57: mouth [place] 10-325 mg 16 every 6 Medical tablet (six) Branch hours as needed. meloxicam 0 Yes 15mg Take 15 mg Un [place] 15 mg 5-13 by mouth ity of tablet 13:57: daily. [place] [address] Medical Branch metFORMIN 0 Yes 500mg Take 500 Uni vers 500 mg 5-13 mg by ity of tablet 13:57: mouth [place] 16 daily. Medical Branch pantoprazol Yes 40mg Take 40 mg Univers e 40 mg EC 5-13 by mouth ity o f tablet 13:57: daily. [place] [address] Medical Branch lovastatin Yes 40mg Take 40 mg U nivers 40 mg 5-13 by mouth ity of tablet 13:57: daily. [place] [address] Medical Branch mirtazapine Yes 15mg Take 15 [...] by mouth ity of tablet 13:57: daily. [place] [address] Medical Branch metFORMIN 0 Yes 500mg Take 500 Uni vers 500 mg 5-13 mg by ity of tablet 13:57: mouth [place] 16 daily. Medical Branch pantoprazol 0 Yes 40mg Take 40 mg Univers e 40 mg EC 5-13 by mouth ity o f tablet 13:57: daily. [place] [address] Medical Branch mirtazapine 0 Yes 15mg Take [...] by mouth ity of tablet 13:57: daily. [place] [address] Medical Branch metFORMIN 0 Yes 500mg Take 500 Uni vers 500 mg 5-13 mg by ity of tablet 13:57: mouth [place] 16 daily. Medical Branch pantoprazol 0 Yes 40mg Take 40 mg Univers e 40 mg EC 5-13 by mouth ity o f tablet 13:57: daily. [place] [address] Medical Branch mirtazapine 0 Yes 15mg Take [...] 5-13 mg by ity of 13:57: mouth. [place] 16 Indication Medical s: 2 Branch tablets [...] by mouth ity of tablet 13:57: daily. [place] [address] Medical Branch metFORMIN 0 Yes 500mg Take 500 Uni vers 500 mg 5-13 mg by ity of tablet 13:57: mouth [place] 16 daily. Medical Branch pantoprazol 0 Yes 40mg Take 40 mg Univers e 40 mg EC 5-13 by mouth ity o f tablet 13:57: daily. [place] [address] Medical Branch mirtazapine 0 Yes 15mg Take 15 mg Univers 15 mg 5-13 by mouth ity of tablet 13:57: at [place] [address] bedtime. Medical Branch SITagliptin Yes Take by Uni vers -metformin 5-13 mouth. ity of (JANUMET 13:57: Indication [place] XR) 16 s: 2 tabs Medical 50-1,000 mg BID Branch per tablet BUPROPION Yes 150mg Take 150 Uni vers HCL ORAL 5-13 mg by ity of 13:57: mouth. [place] [address] Indication Medical s: 2 Branch tablets BID cyclobenzap Yes 10mg Take 10 mg Univers rine 10 mg 5-13 by mouth 3 ity of tablet 13:57: (three) [place] 16 times Medical daily. Branch gabapentin Yes 800mg Take 800 Un [place] (NEURONTIN) 5-13 mg by ity of 300 mg 13:57: mouth 3 [place] capsule 16 (three) Medical times Branch daily. atorvastati Yes 10mg Take 10 mg Univers n (LIPITOR) 5-13 by mouth ity of 10 mg 13:57: at [facility] 16 bedtime. Medical Branch HYDROcodone Yes 1{tbl} Take 1 Un [place] -acetaminop 5-13 tablet by ity of hen (NORCO) 13:57: mouth [place] 10-325 mg 16 every 6 Medical tablet (six) Branch hours as needed. meloxicam Yes 15mg Take 15 mg Un [place] 15 mg 5-13 by mouth ity of tablet 13:57: daily. [place] [address] Medical Branch metFORMIN Yes 500mg Take 500 Uni vers 500 mg 5-13 mg by ity of tablet 13:57: mouth [place] 16 daily. Medical Branch pantoprazol Yes 40mg Take 40 mg Univers e 40 mg EC 5-13 by mouth ity o f tablet 13:57: daily. [place] [address] Medical Branch mirtazapine Yes 15mg Take 15 mg Univers 15 mg 5-13 by mouth ity of tablet 13:57: at [place] [address] bedtime. Medical Branch SITagliptin Yes Take by Uni vers -metformin 5-13 mouth. ity of (JUNUMET 13:57: Indication [place] as XR) 16 s: 2 tabs Medical 50-1,000 mg BID Branch per tablet BUPROPION 0 Yes 150mg Take 150 Uni vers HCL ORAL 5-13 mg by ity of 13:57: mouth. [place] [address] Indication Medical s: 2 Branch tablets BID [...] by mouth ity of tablet 13:57: daily. [place] [address] Medical Branch metFORMIN Yes 500mg Take 500 Uni vers 500 mg 5-13 mg by ity of tablet 13:57: mouth [place] 16 daily. Medical Branch pantoprazol Yes 40mg Take 40 mg Univers e 40 mg EC 5-13 by mouth ity o f tablet 13:57: daily. [place] [address] Medical Branch mirtazapine Yes 15mg Take 15 [...] 5-13 mg by ity of 13:57: mouth. [place] [address] Indication Medical s: 2 Branch tablets BID [...] by mouth ity of tablet 13:57: daily. [place] [address] Medical Branch metFORMIN 0 Yes 500mg Take 500 Uni vers 500 mg 5-13 mg by ity of tablet 13:57: mouth [place] 16 daily. Medical Branch pantoprazol 0 Yes 40mg Take 40 mg Univers e 40 mg EC 5-13 by mouth ity o f tablet 13:57: daily. [place] [address] Medical Branch mirtazapine 0 Yes 15mg Take 15 mg Univers 15 mg 5-13 by mouth ity of tablet 13:57: at [place] 16 bedtime. Medical Branch SITagliptin 0 Yes Take by Uni vers -metformin 5-13 mouth. ity of (JANUMET 13:57: Indication [place] as XR) 16 s: 2 tabs Medical 50-1,000 mg BID Branch per tablet BUPROPION 0 Yes 150mg Take 150 Uni vers HCL ORAL 5-13 mg by ity of 13:57: mouth. [place] [address] Indication Medical s: 2 Branch tablets BID cyclobenzap 0 Yes 10mg Take 10 mg Univers rine 10 mg 5-13 by mouth 3 ity of tablet 13:57: (three) [place] 16 times Medical daily. Branch gabapentin 2021-0 Yes 800mg Take 800 Un [place] (NEURONTIN) [...] by mouth ity of tablet 13:57: daily. [place] [address] Medical Branch metFORMIN 0 Yes 500mg Take 500 Uni vers 500 mg 5-13 mg by ity of tablet 13:57: mouth [place] 16 daily. Medical Branch pantoprazol Yes 40mg Take 40 mg Univers e 40 mg EC 5-13 by mouth ity o f tablet 13:57: daily. [place] [address] Medical Branch mirtazapine 0 Yes 15mg Take [...] 5-13 mg by ity of 13:57: mouth. [place] 16 Indication Medical s: 2 Branch tablets [...] by mouth ity of tablet 13:57: daily. [place] [address] Medical Branch metFORMIN 2021-0 Yes 500mg Take 500 Uni vers 500 mg 5-13 mg by ity of tablet 13:57: mouth [place] 16 daily. Medical Branch pantoprazol 0 Yes 40mg Take 40 mg Univers e 40 mg EC 5-13 by mouth ity o f tablet 13:57: daily. [place] [address] Medical Branch mirtazapine 0 Yes 15mg Take [...] 5-13 mg by ity of 13:57: mouth. [place] 16 Indication Medical s: 2 Branch tablets BID cyclobenzap 0 Yes 10mg Take 10 mg Univers rine 10 mg 5-13 by mouth 3 ity of tablet 13:57: (three) [place] 16 times Medical daily. Branch gabapentin 2021-0 Yes 800mg Take 800 Un [place] (NEURONTIN) 5-13 mg by ity of 300 mg 13:57: mouth 3 [place] capsule 16 (three) Medical times Branch daily. atorvastati 2021-0 Yes 10mg Take 10 mg Univers n (LIPITOR) 5-13 by mouth ity of 10 mg 13:57: at [place] tablet 16 bedtime. Medical Branch HYDROcodone 2021-0 Yes 1{tbl} Take 1 Un [place] -acetaminop 5-13 tablet by ity of hen (NORCO) 13:57: mouth [place] 10-325 mg 16 every 6 Medical tablet (six) Branch hours as needed. meloxicam 2021-0 Yes 15mg Take 15 mg Un [place] 15 mg 5-13 by mouth ity of tablet 13:57: daily. [place] [address] Medical Branch metFORMIN 0 Yes 500mg Take 500 Uni vers 500 mg 5-13 mg by ity of tablet 13:57: mouth [place] 16 daily. Medical Branch pantoprazol 0 Yes 40mg Take 40 mg Univers e 40 mg EC 5-13 by mouth ity o f tablet 13:57: daily. [place] [address] Medical Branch mirtazapine 0 Yes 15mg Take [...] 5-13 mg by ity of 13:57: mouth. [place] [address] Indication Medical s: 2 Branch tablets BID [...] by mouth ity of tablet 13:57: daily. [place] [address] Medical Branch metFORMIN 0 Yes 500mg Take 500 Uni vers 500 mg 5-13 mg by ity of tablet 13:57: mouth [place] 16 daily. Medical Branch pantoprazol 0 Yes 40mg Take 40 mg Univers e 40 mg EC 5-13 by mouth ity o f tablet 13:57: daily. [place] [address] Medical Branch mirtazapine Yes 15mg Take 15 [...] 5-13 mg by ity of 13:57: mouth. [place] 16 Indication Medical s: 2 Branch tablets [...] by mouth ity of tablet 13:57: daily. [place] [address] Medical Branch metFORMIN Yes 500mg Take 500 Uni vers 500 mg 5-13 mg by ity of tablet 13:57: mouth [place] 16 daily. Medical Branch pantoprazol Yes 40mg Take 40 mg Univers e 40 mg EC 5-13 by mouth ity o f tablet 13:57: daily. [place] [address] Medical Branch mirtazapine 0 Yes 15mg Take 15 mg Univers 15 mg 5-13 by mouth ity of tablet 13:57: at [place] 16 bedtime. Medical Branch SITagliptin Yes Take by Uni vers -metformin 5-13 mouth. ity of (JUNUME 13:57: Indication [place] as XR) 16 s: 2 tabs Medical 50-1,000 mg BID Branch per tablet BUPROPION Yes 150mg Take 150 Uni vers HCL ORAL 5-13 mg by ity of 13:57: mouth. [place] 16 Indication Medical s: 2 Branch tablets BID cyclobenzap Yes 10mg Take 10 mg Univers rine 10 mg 5-13 by mouth 3 ity of tablet 13:57: (three) [place] 16 times Medical daily. Branch Tamsulosin Tamsulosin 2021- No 1{capsu QD Tamsulosin HCl 0.4 MG HCl 0.4 MG 10-13 le} HCl 0.4 MG 00:00: 00:00 00 :00 Tamsulosin Tamsulosin 2021- No 1{capsu QD Tamsulosin [...] t} le Sodium MG MG 40 MG Meloxicam Meloxicam No 1{table QD Meloxicam 15 [...] Comments Source height 2022-03-25 10:00:00 61 [in_i] [facility] weight 2022-03-25 10:00:00 172 [lb_av] [facility] temperature 2022-03-25 10:00:00 98.1 [degF] [facility] bmi 2022-03-25 10:00:00 32.5 kg/m2 [facility] oximetry 2022-03-25 10:00:00 96 % [facility] [place] respiratory rate 2022-03-25 10:00:00 16 /min [facility] blood pressure 2022-03-25 10:00:00 123 mm[Hg] [facility] systolic [facility] blood pressure 2022-03-25 10:00:00 73 mm[Hg] [facility] - diastolic [facility] Systolic blood 2022-03-23 19:32:00 98 mm[Hg] [facility] Diastolic blood 2022-03-23 19:32:00 63 mm[Hg] [facility] Heart rate 2022-03-23 19:32:00 78 /min [facility] Body weight 2022-03-23 19:32:00 80.423 kg [facility] BMI 2022-03-23 19:32:00 33.50 kg/m2 [facility] Oxygen saturation in 2022-03-23 19:32:00 95 /min [facility] Arterial blood by [facility] Pulse oximetry Branch Systolic blood 2022-03-11 21:08:00 111 mm[Hg] [facility] Diastolic blood 2022-03-11 21:08:00 74 mm[Hg] [facility] Heart rate 2022-03-11 21:08:00 84 /min [facility] Body height 2022-03-11 21:08:00 154.9 cm [facility] Body weight 2022-03-11 21:08:00 77.111 kg [facility] BMI 2022-03-11 21:08:00 32.12 kg/m2 [facility] Systolic blood 2022-01-26 18:50:00 100 mm[Hg] [facility] Diastolic blood 2022-01-26 18:50:00 66 mm[Hg] [facility] Heart rate 2022-01-26 18:49:00 91 /min [facility] Body height 2022-01-26 18:49:00 154.9 cm [facility] Body weight 2022-01-26 18:49:00 76.658 kg [facility] BMI 2022-01-26 18:49:00 31.93 kg/m2 [facility] Oxygen saturation in 2022-01-26 18:49:00 97 /min [facility] Arterial blood by [facility] Pulse oximetry Branch Procedures Procedure Date / Time Performing Clinician Source Performed INSURANCE CORRESPONDENCE 2022-04-17 05:01:00 Doctor Unassigned, [facility] Name Medical [place] EXTERNAL PROVIDER RECORDS 2022-03-10 05:01:00 Doctor Unassigned, [facility] Name Medical Branch POCT HEMOGLOBIN A1C TEST 2022-01-26 00:00:00 Juan Carlos Escalera [facility] Encounters Start End Encounter Admission Attending Care Care Encounter Source Date/Time Date/Time Type Type Clinicians Facility Department ID 2022-03-26 Outpatient Kohler, STLMLC STLMLC [id number] Common 14:10:01 Bhanu [facility] 2022-03-25 Outpatient Okhler, STLMLC STLMLC [id number] Common 10:07:01 Bhanu [facility] 2021-09-25 Outpatient Kohler, STLMLC STLMLC [id number] Common 14:10:00 Bhanu [facility] 2021-07-09 Outpatient Kohler, STLMLC STLMLC [id number] Common 13:53:25 Bhanu Holguin25 [facility] 2021-07-09 Outpatient Kohler, STLMLC STLMLC [id number] Common 13:15:22 Bhanu Mclaughlin16 [facility] 2021-07-09 Outpatient Kohler, STLMLC STLMLC [id number] Common 13:09:01 Bhanu Melton [facility] 2021-07-09 Outpatient Kohler, STLMLC STLMLC [id number] Common 13:07:45 Bhanu Dunne [facility] 2021-07-09 Outpatient Kohler, STLMLC STLMLC [id number] Common 13:07:26 Bhanu Romero [facility] 2021-07-09 Outpatient Kohler, STLMLC STLMLC [id number] Common 12:57:00 Bhanu Forte [facility] 2022-07-01 2022-07-01 Outpatient R ALEXANDRA PANDEY [facility] [id number] Univers 10:00:00 10:00:00 ALEXANDRA PANDEY [facility] 2022-04-27 2022-04-27 Outpatient R LALI [facility] [id number] Univers 16:00:00 16:00:00 JUAN CARLOS nayla [facility] 2022-04-27 2022-04-27 [facility] 1.2.840.114 [id number] Univers 00:00:00 00:00:00 [facility] 350.1.13.10 [facility] [place] 4.2.7.2.686 Cullen as NATALIO?BLEA [id number] [place] alvino ADEN 044 [facility] OFFICE [facility] 2022-04-21 2022-04-21 Telephone Alexandra Pandey [facility] [id number] Univers 00:00:00 00:00:00 HEALTH 350.1.13.10 it y of [place] 4.2.7.2.686 Cullen as NATALIO?BLEA [id number] [facility] KEIKO [address] [place] MEDICAL OFFICE [facility] 2022-04-17 2022-04-17 Orders Doctor EMMANUEL 1.2.840.114 [id number] Univers 00:00:00 00:00:00 Only Unassigned, SUSAN 350.1.13.10 ity of [place] [facility] 4.2.7.2.686 [place] as [phone] [address] 2022-04-16 2022-04-16 [facility] [id number] Univers 10:00:00 10:00:00 JUAN CARLOS ity [facility] 2022-04-16 2022-04-16 Telephone [facility] 1.2.840.114 [id number] Univers 00:00:00 00:00:00 Juan Carlos HEALTH 350.1.13.10 it y of [place] 4.2.7.2.686 Cullen as NATALIO?BLEA [id number] [facility] [address] OFFICE [facility] 2022-04-10 2022-04-10 Telephone [facility] 1.2.840.114 [id number] Univers 00:00:00 00:00:00 Juan Carlos HEALTH 350.1.13.10 it y of [place] 4.2.7.2.686 [place] as NATALIO?BLEA [id number] [address] OFFICE [facility] 2022-04-01 2022-04-01 Telephone Alexandra Pandey [facility] [id number] Univers 00:00:00 00:00:00 PRIMARY 350.1.13.10 it [place] [id number] [facility] [address] [place] 2022-03-26 2022-03-26 (TEL) STLMLC STLMLC [id number] Co mmon 00:00:00 00:00:00 [facility] 2022-03-25 2022-03-25 OFFICE STLMLC STLMLC [id number] Co mmon 00:00:00 00:00:00 VISIT EST Spir it PT LEVEL 3 - [facility] 2022-03-23 2022-03-23 [facility], Ang - [facility] 1.2.840.1 [id number] Univers 15:30:00 15:45:00 Visit Alexandra Pandey [facility] 350.1.13.10 it y of [place] 4.2.7.2.686 Cullen as NATALIO?BLEA [id number] [facility] [address] [place] MEDICAL OFFICE [facility] 2022-03-23 2022-03-23 Outpatient R KATHERIN ALEXANDRA [facility] [id number] Univers 14:30:00 15:30:56 ALEXANDRA PANDEY [facility] 2022-03-23 2022-03-23 Office Alexandra Pandey [facility] 1.2.840.114 [id number] Univers 14:30:00 15:30:56 Visit HEALTH 350.1.13.10 it y of [place] 4.2.7.2.686 Cullen as NATALIO?BLEA [id number] [facility] [address] [place] MEDICAL OFFICE [facility] 2022-03-19 2022-03-19 Telephone [facility] 1.2.840.114 [id number] Univers 00:00:00 00:00:00 Juan Carlos HEALTH 350.1.13.10 it y of [place] 4.2.7.2.686 Cullen as NATALIO?BLEA [id number] [facility] 0[address] [facility] OFFICE BUILDING 2022-03-17 2022-03-17 Refill [facility] 1.2.840.114 [id number] Univers 00:00:00 00:00:00 Juan Carlos HEALTH 350.1.13.10 it y of [place] 4.2.7.2.686 Cullen as NATALIO?BLEA [phone] [facility] [address] [place] MEDICAL OFFICE BUILDING 2022-03-11 2022-03-11 Office [facility] 1.2.840.114 [id number] Univers 16:00:00 16:15:00 Visit [facility] 350.1.13.10 it y of [place] 4.2.7.2.686 [place]ullen as NATALIO?BLEA [id number] [address] MEDICAL OFFICE [facility] 2022-03-11 2022-03-11 Outpatient R [facility] [id number] Univers 16:00:00 16:00:00 JUAN CARLOS ity of [facility] 2022-03-10 2022-03-10 Orders Doctor EMMANUEL 1.2.840.114 [id number] Univers 00:00:00 00:00:00 Only Unassigned, SUSAN 350.1.13.10 ity of [place] [facility] 4.2.7.2.686 Cullen as [id number] [address] 2022-02-18 2022-02-18 Telephone [facility] 1.2.840.114 [id number] Univers 00:00:00 00:00:00 [facility] 350.1.13.10 it y of [place] 4.2.7.2.686 [place]ullen as NATALIO?BLEA [id number] [address] OFFICE [facility] 2022-02-18 2022-02-18 Telephone [facility] 1.2.840.114 [id number] Univers 00:00:00 00:00:00 [facility] 350.1.13.10 it y of [place] 4.2.7.2.686 [place]ullen as NATALIO?BLEA [id number] [address] MEDICAL OFFICE [facility] 2022-01-26 2022-01-26 Office [facility] 1.2.840.114 [id number] Univers 14:00:00 14:15:00 Visit [facility] 350.1.13.10 it y of [place] 4.2.7.2.686 [place]ullen as NATALIO?BLEA [id number] [address] OFFICE [facility] 2022-01-26 2022-01-26 Outpatient R [facility] [id number] Univers 14:00:00 14:00:00 JUAN CARLOS itnayla [facility] 2022-01-26 2022-01-26 Outpatient R LALI [facility] [id number] Univers 14:00:00 14:00:00 JUAN CARLOS norma [facility] 2022-01-26 2022-01-26 Outpatient Gaurav ADILIAMANDY [facility] [id number] Univers 13:15:00 13:15:00 JUAN CARLOS green [facility] 2021-12-31 2021-12-31 [facility] 1.2.840.114 [id number] Univers 00:00:00 00:00:00 Management Maddie [place] 350.1.13.10 ity of [place].2.[place] [id number] [address] 2021-12-30 2021-12-30 [facility] 1.2.840.114 [id number] Univers 00:00:00 00:00:00 Management Maddie HEALTH 350.1.13.10 ity of [place] 4.2.7.2.686 [place] as NATALIO?BLEA [id number] [address] MEDICAL OFFICE BUILDING 2021-12-24 2021-12-24 [facility] BRIAN Blair 1.2.840.114 [id number] Univers 15:44:00 23:59:00 Encounter Yancy Arguelles 350.1.13.10 ity of [facility] 4.2.7.2.686 [place] as [id number] [address] 2021-12-24 2021-12-24 Outpatient [facility] ACO [id number] Univers 00:00:00 23:59:00 YANCY green [facility] 2021-12-22 2021-12-22 Outpatient R KARAN [facility] [id number] Univers 13:00:00 14:19:55 MADDIE ity [facility] 2021-12-22 2021-12-22 Office [facility] 1.2.840.114 [id number] Univers 13:00:00 14:19:55 Visit Maddie HEALTH 350.1.13.10 it y of [place] 4.2.7.2.686 [place]ullen as NATALIO?BLEA [id number] [address] MEDICAL OFFICE [facility] 2021-12-19 2021-12-19 Outpatient R PAT [facility] [id number] Univers 15:30:00 15:30:00 CHLOE noheminayla [facility] 2021-11-01 2021-11-01 Orders Doctor EMMANUEL 1.2.840.114 [id number] Univers 00:00:00 00:00:00 Only Unassigned, SUSAN 350.1.13.10 ity of [place] [facility] 4.2.7.2.686 C[place] as [id number] [address] 2021-10-24 2021-10-24 Office [facility] 1.2.840.114 [id number] Univers 13:30:00 14:00:00 Visit [facility] 350.1.13.10 it y of [place] 4.2.7.2.686 Cullen as NATALIO?BLEA [phone] [address] OFFICE [facility] 2021-10-24 2021-10-24 Outpatient R LALI [facility] [id number] Univers 13:30:00 13:30:00 JUAN CARLOS [facility] 2021-10-24 2021-10-24 Orders Doctor EMMANUEL 1.2.840.114 [id number] Univers 00:00:00 00:00:00 Only Unassigned, SUSAN 350.1.13.10 ity of [place] [facility] 4.2.7.2.686 Cullen as [id number] [address] 2019-02-01 2019-02-01 Emergency Rafita Bui [facility] 1.2.840.1 14 [id number] 16:31:58 22:14:00 Corey Lantigua 350.1.13.10 Paul 4.2.7.2.686 [place] [id number] [id number] Results Test Description Test Time Test Comments Results Result Comments Source POCT HEMOGLOBIN A1C TEST 2022-01-26 19:28:00 Test Item Value Reference Range Interpretation Comme nts POCT HBA1C (test code = 4548-4) 14.0 % 4-6 A Lab Interpretation (test code = 99974-6) Abnormal [facility]
[2022-05-01 21:04] LABS: Urine Blood Negative (Negative); Urine Glucose 2+ (Negative); Urine Protein Negative (Negative); Urine pH 5.5 (5.0-7.0)
[2022-05-01 21:04] LABS: Absolute Lymphocytes (CBC) 1.5 K/uL (0.7-4.9); Lymphocytes % 22.4 % (15.3-44.8); MCV 88.2 fL (80-100); MPV 8.1 fL (7.6-11.3); RBC Red Blood Cell Count 3.85 M/uL (4.33-5.43)
[2022-05-01] MEDS ORDERED: NA CHLORIDE 0.9% 1,000 ML ONE (21:04)
[2022-05-01 21:14] LABS: Urine RBC <5 /HPF (None Seen)
[2022-05-01 21:15] LABS: Bilirubin Total 0.3 mg/dL (0.2-1.0); Potassium 4.1 mmol/L (3.5-5.1); Protein, Total 7.8 g/dL (6.4-8.2)
[2022-05-01] MEDS ORDERED: LORazepam 2 MG/ML VIAL ONE (22:42)
--- NOTE | 2022-05-02 01:27 | ER ---
Nurse's Notes [facility] Name: Trever Jay Age: 62 yrs Sex: Male : 1960 Arrival Date: 05/01/2022 Time: 19:00 Bed 15 Private MD: Diagnosis: Diarrhea, unspecified;Elevated blood-pressure reading, without diagnosis of hypertension Presentation: 05/01 19:04 Chief complaint: EMS states: toned out because girlfrien took vitals and they were kr3 extremely high, girlfriend called PCP and was told to call ambulance, patient said he has had diarrhea x 5 days, c/o chills and fever, also part of intestine was removed 3 weeks ago. Coronavirus screen: Vaccine status: Patient reports receiving the 2nd dose of the covid vaccine. Client denies travel out of the [place] in the last 14 days. Ebola Screen: Patient denies travel to an Ebola-affected area in the 21 days before illness onset. Initial Sepsis Screen: Does the patient meet any 2 criteria? No. Patient's initial sepsis screen is negative. Does the patient have a suspected source of infection? No. Patient's initial sepsis screen is negative. Risk Assessment: Do you want to hurt yourself or someone else? Patient reports no desire to harm self or others. Onset of symptoms was April 26, 2022. 19:04 Method Of Arrival: EMS kr3 19:04 Acuity: ANAMARIA 3 kr3 Triage Assessment: 19:09 General: Appears in no apparent distress. comfortable, Behavior is calm, cooperative, kr3 appropriate for age. Historical: - Allergies: 19:09 Ampicillin; kr3 - PMHx: 19:09 Anxiety; Asthma; Chronic pain; depressive disorder; Diabetes - NIDDM; diverticulosis; kr3 fatty liver; GERD; Hepatitis; High Cholesterol; incontinence; neuropathy; Osteoporosis; overactive bladder; - PSHx: 19:09 Left knee replacement; kr3 - Immunization history:: Adult Immunizations not up to date. - Social history:: Smoking status: Patient/guardian denies using tobacco, the patient reports quitting approximately 20 years ago. Screenin:10 Abuse screen: Denies threats or abuse. Nutritional screening: No deficits noted. ke1 Tuberculosis screening: No symptoms or risk factors identified. Fall Risk No fall in past 12 months (0 pts). No secondary diagnosis (0 pts). IV access (20 points). Ambulatory Aid- None/Bed Rest/Nurse Assist (0 pts). Gait- Weak (10 pts.). Mental Status- Oriented to own ability (0 pts). Total Avalos Fall Scale indicates Low Risk Score (25-44 pts). Fall prevention measures have been instituted. Side Rails Up X 2 Placed close to Nursing Station Frequent Obs/Assesments occuring As available Patient and Family Educated on Fall Prevention Program and strategies. Assessment: 21:08 Reassessment: CT notified of green top at bedside. Pain: Denies pain. GI: surgery site ke1 clean and dry, no signs of infection. 22:30 Neuro: Randolph Agitation-Sedation Scale (RASS): +1 Restless. ke1 22:30 Reassessment: Unable to do CT scan for anxiety. ke1 05/02 00:38 Reassessment: resting quietly eyes closed. ke1 01:39 Reassessment: Patient appears in no apparent distress at this time. Patient is alert, ke1 oriented x 3, equal unlabored respirations, skin warm/dry/pink. 02:08 Reassessment: Patient discharged but does not have any mean of transportation. House ke1 sup notified and Taxi provided to patient. Vital Signs: 05/01 19:04 BP 116 / 64; Pulse 100; Resp 18; Temp 98.1; Pulse Ox 100% on R/A; Weight 69.85 kg; kr3 Height 5 ft. 1 in. (154.94 cm); 21:11 BP 118 / 70; Pulse 90; Resp 19; Temp 98(O); Pulse Ox 99% on R/A; Pain 0/10; ke1 22:54 BP 135 / 71; Pulse 91; Resp 17; Pulse Ox 99% on R/A; ke1 05/02 01:39 BP 130 / 72; Pulse 88; Resp 18; Temp 98.1; Pulse Ox 99% on R/A; Pain 0/10; ke1 05/01 19:04 Body Mass Index 29.10 (69.85 kg, 154.94 cm) kr3 ED Course: 05/01 19:00 Patient arrived in ED. kr3 19:08 Ashley Dean MD is Attending Physician. sd2 19:09 Triage completed. kr3 19:09 Arm band placed on right wrist. Patient placed in an exam room, on a stretcher. kr3 20:21 Carlitos Spicer, RN is Primary Nurse. ke1 21:08 Inserted saline lock: 20 gauge in right forearm, using aseptic technique. ke1 21:10 CBC with Diff Sent. ke1 21:10 CMP Sent. ke1 21:10 Lipase Sent. ke1 21:10 Urine Microscopic Only Sent. ke1 21:11 Placed in gown. Bed in low position. ke1 21:50 CT Abd/Pelvis - IV Contrast Only In Process Unspecified. EDMS 05/02 01:38 No provider procedures requiring assistance completed. IV discontinued. ke1 Administered Medications: 05/01 21:10 Drug: NS 0.9% 1000 ml Route: IV; Rate: 1 bolus; Site: right forearm; ke1 22:51 Drug: Ativan (LORazepam) 0.5 mg Route: IVP; Site: right forearm; ke1 23:05 Follow up: Response: Anxiety decreased; Anxiety decreased able to do CT scan ke1 23:05 Follow up: Response: RASS: Alert and Calm (0) ke1 Medication: 05/02 01:39 VIS not applicable for this client. ke1 Outcome: 01:27 Discharge ordered by . sd2 02:09 Discharged to home via wheelchair, taxi provided ke1 02:09 Condition: good ke1 02:09 Discharge instructions given to patient. 02:11 Patient left the ED. ke1 Signatures: Dispatcher [employer] EDPA Carlitos Spicer RN RN ke1 Ashley Dean MD MD sd2 Sydney Plata RN RN kr3 Corrections: (The following items were deleted from the chart) 05/01 23:18 22:30 Neuro: [place] Agitation-Sedation Scale (RASS): +1 Restless ke1 ke1
--- NOTE | 2022-05-02 01:27 | EDPHYS ---
Physician Documentation [facility] Name: Trever Jay Age: 62 yrs Sex: Male : 1960 Arrival Date: 05/01/2022 Time: 19:00 Bed 15 Private MD: ED Physician Ashley Dean HPI: 05/01 19:19 This 62 yrs old Male presents to ER via EMS with complaints of Diarrhea. sd2 19:19 62 yo M with history of recent abdominal surgery with recent discharge from hospital sd2 2-3 weeks ago presents with CC of diarrhea via EMS. Reports they were called because his girlfriend came home and took his vitals and they were "extremely high." He reports that he thinks the blood pressure was somewhere around 160s/80s. Reports they called his PCP who told them to call the ambulance. Unclear how vital signs were taken or how many times it was checked to ensure accuracy. Pt also reports ongoing diarrhea since Wednesday when he last saw his surgeon. Reports he is to go on Wednesday to have the rest of his brad removed. Denies any known fever or chills for me, n/v or urinary symptoms. Denies any antibiotic use upon leaving the hospital.. Historical: - Allergies: 19:09 Ampicillin; kr3 - PMHx: 19:09 Anxiety; Asthma; Chronic pain; depressive disorder; Diabetes - NIDDM; diverticulosis; kr3 fatty liver; GERD; Hepatitis; High Cholesterol; incontinence; neuropathy; Osteoporosis; overactive bladder; - PSHx: 19:09 Left knee replacement; kr3 - Immunization history:: Adult Immunizations not up to date. - Social history:: Smoking status: Patient/guardian denies using tobacco, the patient reports quitting approximately 20 years ago. ROS: 19:19 Constitutional: Negative for fever, chills, and weight loss, Eyes: Negative for injury, sd2 pain, redness, and discharge, Cardiovascular: Negative for chest pain, palpitations, and edema, Respiratory: Negative for shortness of breath, cough, wheezing. 19:19 : Negative for dysuria, frequency or hematuria. MS/Extremity: Negative for injury and deformity, Skin: Negative for injury, rash, and discoloration, Neuro: Negative for headache, numbness and tingling. 19:19 Abdomen/GI: Positive for abdominal pain, diarrhea, Negative for nausea, vomiting. Exam: 19:19 Constitutional: This is a well developed, well nourished patient who is awake, alert, sd2 and in no acute distress. Head/Face: Normocephalic, atraumatic. Eyes: EOMI, normal conjunctiva bilaterally Chest/axilla: Normal chest wall appearance and motion. Nontender with no deformity. Cardiovascular: Regular rate and rhythm with a normal S1 and S2. No gallops, murmurs, or rubs. 2+ distal pulses. Respiratory: Lungs have equal breath sounds bilaterally, clear to auscultation and percussion. No rales, rhonchi or wheezes noted. No increased work of breathing, no retractions or nasal flaring. Abdomen/GI: Soft, mild generalized TTP, midline incision c/d/i with no visible signs of infection and granulation tissue present, also small amount of brad present, no rebound or guarding Skin: Warm, dry with normal turgor. Normal color with no rashes, no lesions, and no evidence of cellulitis. MS/ Extremity: Pulses equal, no cyanosis. Neurovascular intact. Full, normal range of motion. Ambulatory without difficulty. Psych: Awake, alert, with orientation to person, place and time. Behavior, mood, and affect are within normal limits. Vital Signs: 19:04 BP 116 / 64; Pulse 100; Resp 18; Temp 98.1; Pulse Ox 100% on R/A; Weight 69.85 kg; kr3 Height 5 ft. 1 in. (154.94 cm); 21:11 BP 118 / 70; Pulse 90; Resp 19; Temp 98(O); Pulse Ox 99% on R/A; Pain 0/10; ke1 22:54 BP 135 / 71; Pulse 91; Resp 17; Pulse Ox 99% on R/A; ke1 05/02 01:39 BP 130 / 72; Pulse 88; Resp 18; Temp 98.1; Pulse Ox 99% on R/A; Pain 0/10; ke1 18 19:04 Body Mass Index 29.10 (69.85 kg, 154.94 cm) kr3 MDM: 05/01 19:08 Patient medically screened. sd2 19:19 Differential diagnosis: Dehydration, electrolyte abnormality, erroneous VS among sd2 others. Data reviewed: vital signs, nurses notes. 05/02 01:25 Data reviewed: lab test result(s), radiologic studies. Counseling: I had a detailed sd2 discussion with the patient and/or guardian regarding: the historical points, exam findings, and any diagnostic results supporting the discharge/admit diagnosis, lab results, radiology results, the need for outpatient follow up, to return to the emergency department if symptoms worsen or persist or if there are any questions or concerns that arise at home. Medical screen evaluation completed. EMTALA emergency medical condition absent. ED course: labs and imaging reviewed. No acute abnormalities noted. No signs of severe dehydration at this time. pt with no episodes of diarrhea in ER for sample. Advised follow up with his surgeon as CT is negative with no postoperative complications and VS have remained stable throughout his stay. Pt verbalizes understanding of strict return precautions at this time. . 05/01 19:18 Order name: CBC with Diff; Complete Time: 21:34 sd2 05/01 19:18 Order name: CMP; Complete Time: 21:34 sd2 05/01 19:18 Order name: Lipase; Complete Time: 21:34 sd2 05/01 19:18 Order name: Urine Microscopic Only; Complete Time: 21:34 sd2 05/01 21:04 Order name: Urine Dipstick-Ancillary; Complete Time: 21:34 EDMS 05/01 21:18 Order name: Urine Culture EDRI 05/01 19:18 Order name: CT Abd/Pelvis - IV Contrast Only sd2 05/01 19:18 Order name: IV Saline Lock; Complete Time: 21:10 sd2 05/01 19:18 Order name: Labs collected and sent; Complete Time: 21:10 sd2 05/01 19:18 Order name: Urine Dipstick-Ancillary (obtain specimen); Complete Time: 21:10 sd2 Administered Medications: 05/01 21:10 Drug: NS 0.9% 1000 ml Route: IV; Rate: 1 bolus; Site: right forearm; ke1 22:51 Drug: Ativan (LORazepam) 0.5 mg Route: IVP; Site: right forearm; ke1 23:05 Follow up: Response: Anxiety decreased; Anxiety decreased able to do CT scan ke1 23:05 Follow up: Response: RASS: Alert and Calm (0) ke1 Disposition Summary: 05/02/22 01:27 Discharge Ordered Location: Home sd2 Problem: new sd2 Symptoms: have improved sd2 Condition: Stable sd2 Diagnosis - Diarrhea, unspecified sd2 - Elevated blood-pressure reading, without diagnosis of hypertension sd2 Followup: sd2 - With: Private Physician - When: 2 - 3 days - Reason: Recheck today's complaints, Continuance of care, Re-evaluation by your physician Discharge Instructions: - Discharge Summary Sheet sd2 - Food Choices to Help Relieve Diarrhea, Adult sd2 - Diarrhea, Adult sd2 Forms: - Medication Reconciliation Form sd2 - Thank You Letter sd2 - Antibiotic Education sd2 - Prescription Opioid Use sd2 Signatures: Dispatcher [employer] EDMS Carlitos Spicer RN RN ke1 Ashley Dean MD MD sd2 Sydney Plata RN RN kr3 Corrections: (The following items were deleted from the chart) 19:23 19:19 62 yo M with history of recent abdominal surgery with recent discharge from [address] 2-3 weeks ago presents with CC of diarrhea via EMS. Reports they were called because his girlfriend came home and took his vitals and they were "extremely high." He reports that he thinks the blood pressure was somewhere around 160s/80s. Reports they called his PCP who told them to call the ambulance. Unclear how vital signs were taken or how many times it was checked to ensure accuracy. Pt also reports ongoing diarrhea since Wednesday when he last saw his surgeon. Reports he is to go on Wednesday to have the rest of his brad removed. Denies any known fever or chills for me, n/v or urinary symptoms.. sd2
[2022-05-02 02:17] VITALS: O2SAT 99
[2022-05-02 02:20] VITALS: BP 130/72; TEMP 98.1
== END 2022-05-02 02:11 | disposition home or self-care (01) ==
LOC: ER 18:58
DX: R19.7 Diarrhea, unspecified (principal); R03.0 Elevated blood-pressure reading, without diagnosis of hypertension; Z98.890 Other specified postprocedural states; Z88.1 Allergy status to other antibiotic agents
CPT/HCPCS: 87088; 85025; 87086; 36415; 87077 ×2; 87186 ×2; 83690; 80053; 74177; 96374; 99284; Q9967; J7030; 81003; 81015

== ENCOUNTER 2022-06-09 16:27 | Inpatient (IN) | payer OTHER ==
--- OUTSIDE RECORDS SUMMARY | 2022-06-09 16:36 | XMS REPORT | Continuity of Care Document ---
:1960 Author Organization [facility] t Address [address] [place] [address] [address]. [address] [place] [address] Care Team Providers Name Role Phone Juan Carlos Escalera MD Primary Care Physician [phone] Bhanu Kohler Attending Clinician Unavailable ALEXANDRA PANDEY Attending Clinician Unavailable ALEXANDRA PANDEY Attending Clinician Unavailable Juan Carlos Escalera MD Attending Clinician Doctor Unassigned, [place] Attending Clinician Unavailable JUAN CARLOS ESCALERA Attending Clinician Unavailable Lab, Ang - Db Attending Clinician Unavailable Maddie Russo PA-C Attending Clinician Yancy Blair MD Attending Clinician YANCY BLAIR Attending Clinician Unavailable MADDIE RUSSO Attending Clinician Unavailable CHLOE STEWART Attending Clinician Unavailable Ramya BOLIVAR, Rafita Segura Attending Clinician Corey Lantigua MD Attending Clinician YANCY BLAIR Admitting Clinician Unavailable Payers Payer Name Policy Type Policy Number Effective Date Expiration Date S freeman [facility]O/[facility] [id number] 2022 DUAL COMP HMO D 00:00:00 [facility] MEDICAID [place] [id number] 2015 [place] 00:00:00 [facility] Dual 53 [id number] 2020 [facility] Complete MCR 00:00:00 - [facility] Problems Condition Condition Condition Status Onset Resolution Last Treating Co mments Source Name Details Category Date Date Treatment Clinician Date Back pain Back pain Disease Active Uni vers 8-21 ity of 00:00: [address] 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 00:00: [place] interverte interverte 00 Me dical bral disc bral disc Bran ch 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 2-17 [place] [facility] Inflammati Inflammati Disease Active 2017-06 U nivers on of on of 2-17 ity of sacroili[place] 00 [facility] Spinal Spinal Disease Active 2017-06 Univers stenosis stenosis 2-17 [place] [facility] Branch Chronic Chronic Disease Active 2017-06 Univers pain pain 2-17 ity of disorder disorder 00:00: [address] [id number] Posthitis Problem Comm on [facility] [id number] OAB Problem Common (overactiv Spirit e bladder) [facility] Kidney Calcium Problem Common stone kidney [facility] stones [facility] [id number] Urge Problem Common incontinen Spirit ce [facility] [id number] BPH loc w Problem Com mon urin Spirit obs/LUTS - [facility] Allergies, Adverse Reactions, Alerts Allergy Allergy Status Severity Reaction(s) Onset Inactive Treating Comm ents Source Name Type Date Date Clinician NO KNOWN Drug Active Univers ALLERGIE Class ity of S [facility] Social History Social Habit Start Date Stop Date Quantity Comments Source Sex Assigned At [facility] - [facility] History of [facility] - Tobacco Use [facility] Exposure to 2022-03-13 2022-03-23 Not sure University of SARS-CoV-2 00:00:00 14:30:00 [facility] (event) Branch Alcohol intake 2021-12-31 2021-12-31 Ex-drinker University 00:00:00 00:00:00 (finding) [facility] Tobacco use and 2019-02-01 2019-02-01 Smokeless tobacco Un iversity of exposure 00:00:00 00:00:00 non-user [facility] Smoking Status Start Date Stop Date Source Ex-smoker 2019-02-01 00:00:00 2019-02-01 00:00:00 [facility] Medications Ordered Filled Start Stop Current Ordering Indication Dosage Frequency Signature Comments Components Source Medication Medication Date Date Medication? Clinician (SIG) Name Name LOVASTATIN 2021-06 Yes [id number] TAKE 1 U nivers 40 mg 2-22 TABLET BY ity of tablet 00:00: MOUTH WITH [place] [id number] EVENING [facility] MEAL Branch Insulin 2021-06 20U inject 20 Univ ers Glargine 1-08 11-08 Units ity of (LANTUS 16:19: 00:00 under the [facility] SOLOSTAR 30 :00 skin in [facility] U-Formerly named [facility] the Branch INSULIN) morning. 100 unit/mL Decrease (3 mL) the long injection acting insulin to 20 units once daily to avoid any low BGs. If fasting BG drops < 90, he will continue decrease the insulin dose. Insulin 2021-06 Yes 20U inject 20 Unive rs Glargine 1-08 Units ity of (LANTUS 00:00: under the [place] [facility] skin in [facility] U[facility]Formerly named [facility] the Branch INSULIN) morning. 100 unit/mL Decrease (3 mL) the long injection acting insulin to 20 units once daily to avoid any low BGs. If fasting BG drops < 90, he will continue decrease the insulin dose. Insulin 2021-06 Yes 20U inject 20 Unive rs Glargine 1-08 Units ity of (LANTUS 00:00: under the [place] SOLOSTME 00 skin in [facility] Branch INSULIN) morning. 100 unit/mL Decrease (3 mL) the long injection acting insulin to 20 units once daily to avoid any low BGs. If fasting BG drops < 90, he will continue decrease the insulin dose. Insulin 2021-06 Yes 20U inject 20 Unive rs Glargine 1-08 Units ity of (LANTUS 00:00: under the [place] SOLOSTAR 00 skin in Medical U-100 the Branch INSULIN) morning. 100 unit/mL Decrease (3 mL) the long injection acting insulin to 20 units once daily to avoid any low BGs. If fasting BG drops < 90, he will continue decrease the insulin dose. Insulin 2021-06 Yes 20U inject 20 Unive rs Glargine 1-08 Units ity of (LANTUS 00:00: under the [place] SOLOSTAR 00 skin in Medical U-100 the Branch INSULIN) morning. 100 unit/mL Decrease (3 mL) the long injection acting insulin to 20 units once daily to avoid any low BGs. If fasting BG drops < 90, he will continue decrease the insulin dose. Insulin 2021-06 Yes 20U inject 20 Unive rs Glargine 1-08 Units ity of (LANTUS 00:00: under the [place] SOLOSTAR 00 skin in Medical U-100 the Branch INSULIN) morning. 100 unit/mL Decrease (3 mL) the long injection acting insulin to 20 units once daily to avoid any low BGs. If fasting BG drops < 90, he will continue decrease the insulin dose. Insulin 2021-06 Yes 20U inject 20 Unive rs Glargine 1-08 Units ity of (LANTUS 00:00: under the [place] SOLOSTAR 00 skin in Medical U-100 the Branch INSULIN) morning. 100 unit/mL Decrease (3 mL) the long injection acting insulin to 20 units once daily to avoid any low BGs. If fasting BG drops < 90, he will continue decrease the insulin dose. Insulin 2021-06 Yes 20U inject 20 Unive rs Glargine 1-08 Units ity of (LANTUS 00:00: under the [place] SOLOSTAR 00 skin in Medical U-100 the Branch INSULIN) morning. 100 unit/mL Decrease (3 mL) the long injection acting insulin to 20 units once daily to avoid any low BGs. If fasting BG drops < 90, he will continue decrease the insulin dose. Insulin 2021-06 Yes 20U inject 20 Unive rs Glargine 1-08 Units ity of (LANTUS 00:00: under the [place] SOLOSTAR 00 skin in Medical U-100 the Branch INSULIN) morning. 100 unit/mL Decrease (3 mL) the long injection acting insulin to 20 units once daily to avoid any low BGs. If fasting BG drops < 90, he will continue decrease the insulin dose. fenofibrate 2021-06 Yes [id number] 54mg Take 1 Univers 54 mg 0-19 tablet by ity of tablet 00:00: mouth in [place] the Medical morning. Branch fenofibrate 2021-06 Yes [id number] 54mg Take 1 Univers 54 mg 0-19 tablet by ity of tablet 00:00: mouth in [place] the morning. Branch fenofibrate 2021-06 Yes [id number] 54mg Take 1 Univers 54 mg 0-19 tablet by ity of tablet 00:00: mouth in [place] the Medical morning. Branch fenofibrate 2021-06 Yes [id number] 54mg Take 1 Univers 54 mg 0-19 tablet by ity of tablet 00:00: mouth in [place] the Medical morning. Branch fenofibrate 2021-06 Yes [id number] 54mg Take 1 Univers 54 mg 0-19 tablet by ity of tablet 00:00: mouth in [place] the morning. Branch fenofibrate 2021-06 Yes [id number] 54mg Take 1 Univers 54 mg 0-19 tablet by ity of tablet 00:00: mouth in [place] the morning. Branch fenofibrate 2021-06 Yes [id number] 54mg Take 1 Univers 54 mg 0-19 tablet by ity of tablet 00:00: mouth in [place] the Medical morning. Branch fenofibrate 2021-06 Yes [id number] 54mg Take 1 Univers 54 mg 0-19 tablet by ity of tablet 00:00: mouth in [place] the Medical morning. Branch fenofibrate 2021-06 Yes [id number] 54mg Take 1 Univers 54 mg 0-19 tablet by ity of tablet 00:00: mouth in [place] the Medical morning. Branch fenofibrate 2021-06 Yes [id number] 54mg Take 1 Univers 54 mg 0-19 tablet by ity of tablet 00:00: mouth in [place] the Medical morning. Branch fenofibrate 2021-06 Yes [id number] 54mg Take 1 Univers 54 mg 0-19 tablet by ity of tablet 00:00: mouth in [place] the Medical morning. Branch fenofibrate 2021-06 Yes [id number] 54mg Take 1 Univers 54 mg 0-19 tablet by ity of tablet 00:00: mouth in 00 the Medical morning. Branch Proscar 5 Proscar [...] 00:00: 00:00 00 :00 glipiZIDE 2021-06 Yes [id number] 10mg Take 1 Un [place] XL 10 mg 24 0-10 tablet by ity of hr tablet 00:00: mouth 00 daily with Medical breakfast. Branch glipiZIDE 2021-06 Yes [id number] 10mg Take 1 Un [place] XL 10 mg 24 0-10 tablet by ity of hr tablet 00:00: mouth [place] 00 daily with Medical breakfast. Branch glipiZIDE 2021-06 Yes [id number] 10mg Take 1 Un [place] XL 10 mg 24 0-10 tablet by ity of hr tablet 00:00: mouth [place] 00 daily with Medical breakfast. Branch glipiZIDE 2021-06 Yes [id number] 10mg Take 1 Un [place] XL 10 mg 24 0-10 tablet by ity of hr tablet 00:00: mouth [place] 00 daily with Medical breakfast. Branch glipiZIDE 2021-06 Yes [id number] 10mg Take 1 Un [place] XL 10 mg 24 0-10 tablet by ity of hr tablet 00:00: mouth [place] 00 daily with Medical breakfast. Branch glipiZIDE 2021-06 Yes [id number] 10mg Take 1 Un [place] XL 10 mg 24 0-10 tablet by ity of hr tablet 00:00: mouth [place] 00 daily with Medical breakfast. Branch glipiZIDE 2021-06 Yes [id number] 10mg Take 1 Un [place] XL 10 mg 24 0-10 tablet by ity of hr tablet 00:00: mouth [place] 00 daily with Medical breakfast. [place] glipiZIDE 2021-06 Yes [id number] 10mg Take 1 Un [place] XL 10 mg 24 0-10 tablet by ity of hr tablet 00:00: mouth [place] 00 daily with Medical breakfast. Branch glipiZIDE 2021-06 Yes [id number] 10mg Take 1 Un [place] XL 10 mg 24 0-10 tablet by ity of hr tablet 00:00: mouth [place] 00 daily with Medical breakfast. Branch glipiZIDE 2021-06 Yes [id number] 10mg Take 1 Un [place] XL 10 mg 24 0-10 tablet by ity of hr tablet 00:00: mouth [place] 00 daily with Medical breakfast. Branch glipiZIDE 2021-06 Yes [id number] 10mg Take 1 Un [place] XL 10 mg 24 0-10 tablet by ity of hr tablet 00:00: mouth [place] 00 daily with Medical breakfast. [place] glipiZIDE 2021-06 Yes [id number] 10mg Take 1 Un [place] XL 10 mg 24 0-10 tablet by ity of hr tablet 00:00: mouth [place] 00 daily with Medical breakfast. Branch glipiZIDE 2021-06 Yes [id number] 10mg Take 1 Un [place] XL 10 mg 24 0-10 tablet by ity of hr tablet 00:00: mouth [place] 00 daily with Medical breakfast. Branch glipiZIDE 2021-06 Yes [id number] 10mg Take 1 Un [place] XL 10 mg 24 0-10 tablet by ity of hr tablet 00:00: mouth [place] 00 daily with Medical breakfast. [place] glipiZIDE 2021-06 Yes [id number] 10mg Take 1 Un [place] XL 10 mg 24 0-10 tablet by ity of hr tablet 00:00: mouth [place] 00 daily with Medical breakfast. Branch glipiZIDE 2021-06- No [id number] 10mg Take 1 U nivers 10 mg 0-10 10-10 tablet by ity of tablet 00:00: 00:00 mouth in [place] 00 :00 the Medical morning. Branch glipiZIDE 2021-06 No [id number] 10mg Take 1 U nivers 10 mg 0-10 10-10 tablet by ity of tablet 00:00: 00:00 mouth in [place] 00 :00 the Medical morning. Branch lovastatin 2022-1 2022- No 40mg Take 40 mg Univers 40 mg 0-04 10-04 by mouth ity of tablet 12:53: 00:00 daily. [place] 29 :00 Medical Branch LOVASTATIN 2021-06 Yes [id number] TAKE 1 U nivers 40 mg 0-04 TABLET BY ity of tablet 00:00: MOUTH WITH EVENING Medical MEAL 90 Branch LOVASTATIN 2021-06 Yes [id number] TAKE 1 U nivers 40 mg 0-04 TABLET BY ity of tablet 00:00: MOUTH WITH EVENING Medical MEAL 90 Branch LOVASTATIN 2021-06 Yes [id number] TAKE 1 U nivers 40 mg 0-04 TABLET BY ity of tablet 00:00: MOUTH WITH EVENING Medical MEAL 90 Branch LOVASTATIN 2021-06 Yes [id number] TAKE 1 U nivers 40 mg 0-04 TABLET BY ity of tablet 00:00: MOUTH WITH EVENING Medical MEAL 90 Branch LOVASTATIN 2021-06 Yes [id number] TAKE 1 U nivers 40 mg 0-04 TABLET BY ity of tablet 00:00: MOUTH WITH EVENING Medical MEAL 90 Branch LOVASTATIN 2021-06 Yes [id number] TAKE 1 U nivers 40 mg 0-04 TABLET BY ity of tablet 00:00: MOUTH WITH EVENING Medical MEAL 90 Branch LOVASTATIN 2021-06 Yes [id number] TAKE 1 U nivers 40 mg 0-04 TABLET BY ity of tablet 00:00: MOUTH WITH EVENING Medical MEAL 90 Branch LOVASTATIN 2021-06 Yes [id number] TAKE 1 U nivers 40 mg 0-04 TABLET BY ity of tablet 00:00: MOUTH WITH EVENING Medical MEAL 90 Branch LOVASTATIN 2021-06 Yes [id number] TAKE 1 U nivers 40 mg 0-04 TABLET BY ity of tablet 00:00: MOUTH WITH EVENING Medical MEAL 90 Branch LOVASTATIN 2021-06 Yes [id number] TAKE 1 U nivers 40 mg 0-04 TABLET BY ity of tablet 00:00: MOUTH WITH EVENING Medical MEAL 90 Branch LOVASTATIN 2021-06 Yes [id number] TAKE 1 U nivers 40 mg 0-04 TABLET BY ity of tablet 00:00: MOUTH WITH EVENING Medical MEAL 90 Branch LOVASTATIN 2021-06 Yes [id number] TAKE 1 U nivers 40 mg 0-04 TABLET BY ity of tablet 00:00: MOUTH WITH EVENING Medical MEAL 90 Branch LOVASTATIN 2021-06 Yes [id number] TAKE 1 U nivers 40 mg 0-04 TABLET BY ity of tablet 00:00: MOUTH WITH [place] EVENING Medical MEAL 90 Branch LOVASTATIN 2021-06 Yes [id number] TAKE 1 U nivers 40 mg 0-04 TABLET BY ity of tablet 00:00: MOUTH WITH [place] EVENING Medical MEAL 90 Branch LOVASTATIN 2021-06 Yes [id number] TAKE 1 U nivers 40 mg 0-04 TABLET BY ity of tablet 00:00: MOUTH WITH [place] EVENING Medical MEAL 90 Branch LOVASTATIN 2021-06 Yes [id number] TAKE 1 U nivers 40 mg 0-04 TABLET BY ity of tablet 00:00: MOUTH WITH [place] EVENING Medical MEAL 90 Branch LOVASTATIN 2021-06- No [id number] TAKE 1 Univers 40 mg 0-04 12-22 TABLET BY ity of tablet 00:00: 00:00 [facility] Medical MEAL Branch TOPIRAMATE 2021- No 50mg Take 50 mg Univers ORAL 01-26 08-15 by mouth ity of 14:03: 00:00 at [place] 47 :00 bedtime. Medical Branch tamsulosin 2021- No Take by Uni vers (FLOMAX) 8-15 08-15 mouth ity of 0.4 mg 24 14:02: 00:00 daily. [place] hr capsule 29 :00 Medical Branch traZODONE 2021- No 100mg Take 100 Un [place] (DESYREL) 815 08-15 mg by ity of 100 mg 14:02: 00:00 mouth at [place] tablet 19 :00 bedtime. Medical Branch Tamsulosin Tamsulosin 2022- No 2{capsu QD Tamsulosin HCl 0.4 MG HCl 0.4 MG 12-24 les} HCl 0.4 MG 00:00: 00:00 00 :00 Tamsulosin Tamsulosin 2022- No 2{capsu QD Tamsulosin HCl 0.4 MG HCl 0.4 MG 12-24 les} HCl 0.4 MG 00:00: 00:00 00 :00 topiramate 2021- No [id number] 50mg Take 1 Univers 50 mg 7-11 [...] by mouth ity of tablet 13:57: daily. [place] [address] Medical Branch metFORMIN 0 Yes 500mg Take 500 Uni vers 500 mg 5-13 mg by ity of tablet 13:57: mouth [place] 16 daily. Medical Branch pantoprazol Yes 40mg Take 40 mg Univers e 40 mg EC 5-13 by mouth ity o f tablet 13:57: daily. [place] [address] Medical Branch lovastatin 0 Yes 40mg Take 40 mg U nivers 40 mg 5-13 by mouth ity of tablet 13:57: daily. [place] [address] Medical Branch mirtazapine 0 Yes 15mg Take [...] by mouth ity of tablet 13:57: daily. [place] [address] Medical Branch metFORMIN Yes 500mg Take 500 Uni vers 500 mg 5-13 mg by ity of tablet 13:57: mouth [place] 16 daily. Medical Branch pantoprazol Yes 40mg Take 40 mg Univers e 40 mg EC 5-13 by mouth ity o f tablet 13:57: daily. [address] Branch lovastatin Yes 40mg Take 40 mg U nivers 40 mg 5-13 by mouth ity of tablet 13:57: daily. [address] Branch mirtazapine Yes 15mg Take 15 mg [...] 5-13 mg by ity of 13:57: mouth. [place] 16 Indication Medical s: 2 Branch tablets BID cyclobenzap 0 Yes 10mg Take 10 mg Univers rine 10 mg 5-13 by mouth 3 ity of tablet 13:57: (three) [place] 16 times Medical daily. Branch gabapentin Yes 800mg Take 800 Un [place] (NEURONTIN) 5-13 mg by ity of 300 mg 13:57: mouth 3 [place] capsule 16 (three) Medical times Branch daily. atorvastati 2022-0 Yes 10mg Take 10 mg Univers n [...] by mouth ity of tablet 13:57: daily. [place] [address] Medical Branch metFORMIN Yes 500mg Take 500 Uni vers 500 mg 5-13 mg by ity of tablet 13:57: mouth [place] 16 daily. Medical Branch pantoprazol Yes 40mg Take 40 mg Univers e 40 mg EC 5-13 by mouth ity o f tablet 13:57: daily. [place] [address] Medical Branch lovastatin Yes 40mg Take 40 mg U nivers 40 mg 5-13 by mouth ity of tablet 13:57: daily. [place] [address] Medical Branch mirtazapine Yes 15mg Take 15 [...] by mouth ity of tablet 13:57: daily. [place] [address] Medical Branch metFORMIN 0 Yes 500mg Take 500 Uni vers 500 mg 5-13 mg by ity of tablet 13:57: mouth [place] 16 daily. Medical Branch pantoprazol Yes 40mg Take 40 mg Univers e 40 mg EC 5-13 by mouth ity o f tablet 13:57: daily. [place] [address] Medical Branch lovastatin Yes 40mg Take 40 mg U nivers 40 mg 5-13 by mouth ity of tablet 13:57: daily. [place] [address] Medical Branch mirtazapine Yes 15mg Take 15 [...] by mouth ity of tablet 13:57: daily. [place] [address] Medical Branch metFORMIN 0 Yes 500mg Take 500 Uni vers 500 mg 5-13 mg by ity of tablet 13:57: mouth [place] 16 daily. Medical Branch pantoprazol 0 Yes 40mg Take 40 mg Univers e 40 mg EC 5-13 by mouth ity o f tablet 13:57: daily. [place] [address] Medical Branch lovastatin 0 Yes 40mg Take 40 mg U nivers 40 mg 5-13 by mouth ity of tablet 13:57: daily. [place] [address] Medical Branch mirtazapine 0 Yes 15mg Take [...] 5-13 mg by ity of 13:57: mouth. [place] [address] Indication Medical s: 2 Branch tablets BID [...] by mouth ity of tablet 13:57: daily. [place] [address] Medical Branch metFORMIN 0 Yes 500mg Take 500 Uni vers 500 mg 5-13 mg by ity of tablet 13:57: mouth [place] 16 daily. Medical Branch pantoprazol 0 Yes 40mg Take 40 mg Univers e 40 mg EC 5-13 by mouth ity o f tablet 13:57: daily. [place] [address] Medical Branch lovastatin 0 Yes 40mg Take 40 mg U nivers 40 mg 5-13 by mouth ity of tablet 13:57: daily. [place] [address] Medical Branch mirtazapine 0 Yes 15mg Take [...] 5-13 mg by ity of 13:57: mouth. [place] [address] Indication Medical s: 2 Branch tablets BID [...] by mouth ity of tablet 13:57: daily. [place] [address] Medical Branch metFORMIN 0 Yes 500mg Take 500 Uni vers 500 mg 5-13 mg by ity of tablet 13:57: mouth [place] 16 daily. Medical Branch pantoprazol Yes 40mg Take 40 mg Univers e 40 mg EC 5-13 by mouth ity o f tablet 13:57: daily. [place] [address] Medical Branch mirtazapine 0 Yes 15mg Take 15 mg Univers 15 mg 5-13 by mouth ity of tablet 13:57: at [place] [address] bedtime. Medical Branch SITagliptin Yes Take by Uni vers -metformin 5-13 mouth. ity of (JANUMET 13:57: Indication [place] as XR) 16 s: 2 tabs Medical 50-1,000 mg BID Branch per tablet BUPROPION Yes 150mg Take 150 Uni vers HCL ORAL 5-13 mg by ity of 13:57: mouth. [place] [address] Indication Medical s: 2 Branch tablets BID [...] ity of 10 mg 13:57: at [place] [facility] 16 bedtime. Medical Branch HYDROcodone Yes 1{tbl} Take 1 Un [place] -acetaminop 5-13 tablet by ity of hen (NORCO) 13:57: mouth [place] 10-325 mg 16 every 6 Medical tablet (six) Branch hours as needed. meloxicam Yes 15mg Take 15 mg Un [place] 15 mg 5-13 by mouth ity of tablet 13:57: daily. [place] [address] Medical Branch metFORMIN Yes 500mg Take 500 Uni vers 500 mg 5-13 mg by ity of tablet 13:57: mouth [place] 16 daily. Medical Branch pantoprazol Yes 40mg Take 40 mg Univers e 40 mg EC 5-13 by mouth ity o f tablet 13:57: daily. [place] [address] Medical Branch mirtazapine 0 Yes 15mg Take 15 mg Univers 15 mg 5-13 by mouth ity of tablet 13:57: at [place] 16 bedtime. Medical Branch SITagliptin Yes Take by Uni vers -metformin 5-13 mouth. ity of ( 13:57: Indication [place] XR) 16 s: 2 tabs Medical 50-1,000 mg BID Branch per tablet BUPROPION 0 Yes 150mg Take 150 Uni vers HCL ORAL 5-13 mg by ity of 13:57: mouth. [place] [address] Indication Medical s: 2 Branch tablets BID [...] ity of 10 mg 13:57: at [place] [facility] 16 bedtime. Medical Branch HYDROcodone Yes 1{tbl} Take 1 Un [place] -acetaminop 5-13 tablet by ity of hen (NORCO) 13:57: mouth [place] 10-325 mg 16 every 6 Medical tablet (six) Branch hours as needed. meloxicam Yes 15mg Take 15 mg Un [place] 15 mg 5-13 by mouth ity of tablet 13:57: daily. [place] [address] Medical Branch metFORMIN Yes 500mg Take 500 Uni vers 500 mg 5-13 mg by ity of tablet 13:57: mouth [place] 16 daily. Medical Branch pantoprazol Yes 40mg Take 40 mg Univers e 40 mg EC 5-13 by mouth ity o f tablet 13:57: daily. [place] [address] Medical Branch mirtazapine Yes 15mg Take 15 mg Univers 15 mg 5-13 by mouth ity of tablet 13:57: at [place] 16 bedtime. Medical Branch SITagliptin Yes Take by Uni vers -metformin 5-13 mouth. ity of (JUNUMET 13:57: Indication [place] XR) 16 s: 2 tabs Medical 50-1,000 mg BID Branch per tablet BUPROPION 0 Yes 150mg Take 150 Uni vers HCL ORAL 5-13 mg by ity of 13:57: mouth. [place] [address] Indication Medical s: 2 Branch tablets BID cyclobenzap 0 Yes 10mg Take 10 mg Univers rine 10 mg 5-13 by mouth 3 ity of tablet 13:57: (three) [place] 16 times Medical daily. Branch gabapentin 2021-0 Yes 800mg Take 800 Un [place] (NEURONTIN) 5-13 mg by ity of 300 mg 13:57: mouth 3 [place] capsule 16 (three) Medical times Branch daily. atorvastati 2021-0 Yes 10mg Take 10 mg Univers n (LIPITOR) 5-13 by mouth ity of 10 mg 13:57: at [place] tablet 16 bedtime. Medical Branch HYDROcodone 0 Yes 1{tbl} Take 1 Un [place] -acetaminop 5-13 tablet by ity of hen (NORCO) 13:57: mouth [place] 10-325 mg 16 every 6 Medical tablet (six) Branch hours as needed. meloxicam 0 Yes 15mg Take 15 mg Un [place] 15 mg 5-13 by mouth ity of tablet 13:57: daily. [place] [address] Medical Branch metFORMIN 2021-0 Yes 500mg Take 500 Uni vers 500 mg 5-13 mg by ity of tablet 13:57: mouth [place] 16 daily. Medical Branch pantoprazol 0 Yes 40mg Take 40 mg Univers e 40 mg EC 5-13 by mouth ity o f tablet 13:57: daily. [place] [address] Medical Branch mirtazapine 0 Yes 15mg Take 15 mg Univers 15 mg 5-13 by mouth ity of tablet 13:57: at [place] 16 bedtime. Medical Branch SITagliptin 0 Yes Take by Uni vers -metformin 5-13 mouth. ity of (JANUMET 13:57: Indication [place] XR) 16 s: 2 tabs Medical 50-1,000 mg BID Branch per tablet BUPROPION 2021-0 Yes 150mg Take 150 Uni vers HCL ORAL 5-13 mg by ity of 13:57: mouth. [place] [address] Indication Medical s: 2 Branch tablets BID cyclobenzap 2021-0 Yes 10mg Take 10 mg Univers rine 10 mg 5-13 by mouth 3 ity of tablet 13:57: (three) [place] 16 times Medical daily. Branch gabapentin 2021-0 [...] by mouth ity of tablet 13:57: daily. [place] [address] Medical Branch metFORMIN Yes 500mg Take 500 Uni vers 500 mg 5-13 mg by ity of tablet 13:57: mouth [place] 16 daily. Medical Branch pantoprazol Yes 40mg Take 40 mg Univers e 40 mg EC 5-13 by mouth ity o f tablet 13:57: daily. [place] [address] Medical Branch mirtazapine 0 Yes 15mg Take [...] [place] tablet 16 bedtime. Medical Branch HYDROcodone 2022-0 Yes 1{tbl} Take 1 Un [place] -acetaminop 5-13 tablet by ity of hen (NORCO) 13:57: mouth [place] 10-325 mg 16 every 6 Medical tablet (six) Branch hours as needed. meloxicam 2021-0 Yes 15mg Take 15 mg Un [place] 15 mg 5-13 by mouth ity of tablet 13:57: daily. [place] [address] Medical Branch metFORMIN 0 Yes 500mg Take 500 Uni vers 500 mg 5-13 mg by ity of tablet 13:57: mouth [place] 16 daily. Medical Branch pantoprazol 0 Yes 40mg Take 40 mg Univers e 40 mg EC 5-13 by mouth ity o f tablet 13:57: daily. [place] [address] Medical Branch mirtazapine 0 Yes 15mg Take [...] 5-13 mg by ity of 13:57: mouth. [place] 16 Indication Medical s: 2 Branch tablets [...] by mouth ity of tablet 13:57: daily. [place] [address] Medical Branch metFORMIN 0 Yes 500mg Take 500 Uni vers 500 mg 5-13 mg by ity of tablet 13:57: mouth [place] 16 daily. Medical Branch pantoprazol 0 Yes 40mg Take 40 mg Univers e 40 mg EC 5-13 by mouth ity o f tablet 13:57: daily. [place] [address] Medical Branch mirtazapine 0 Yes 15mg Take [...] 5-13 mg by ity of 13:57: mouth. [place] 16 Indication Medical s: 2 Branch tablets [...] by mouth ity of tablet 13:57: daily. [place] [address] Medical Branch metFORMIN 0 Yes 500mg Take 500 Uni vers 500 mg 5-13 mg by ity of tablet 13:57: mouth [place] 16 daily. Medical Branch pantoprazol 0 Yes 40mg Take 40 mg Univers e 40 mg EC 5-13 by mouth ity o f tablet 13:57: daily. [place] [address] Medical Branch mirtazapine 0 Yes 15mg Take [...] 5-13 mg by ity of 13:57: mouth. [place] 16 Indication Medical s: 2 Branch tablets [...] by mouth ity of tablet 13:57: daily. [place] [address] Medical Branch metFORMIN 0 Yes 500mg Take 500 Uni vers 500 mg 5-13 mg by ity of tablet 13:57: mouth [place] 16 daily. Medical Branch pantoprazol 0 Yes 40mg Take 40 mg Univers e 40 mg EC 5-13 by mouth ity o f tablet 13:57: daily. [place] [address] Medical Branch mirtazapine 0 Yes 15mg Take [...] 5-13 mg by ity of 13:57: mouth. [place] [address] Indication Medical s: 2 Branch tablets BID [...] by mouth ity of tablet 13:57: daily. [place] [address] Medical Branch metFORMIN 0 Yes 500mg Take 500 Uni vers 500 mg 5-13 mg by ity of tablet 13:57: mouth [place] 16 daily. Medical Branch pantoprazol 0 Yes 40mg Take 40 mg Univers e 40 mg EC 5-13 by mouth ity o f tablet 13:57: daily. [place] [address] Medical Branch mirtazapine 0 Yes 15mg Take [...] 5-13 mg by ity of 13:57: mouth. [place] [address] Indication Medical s: 2 Branch tablets BID cyclobenzap 0 Yes 10mg Take 10 mg Univers rine 10 mg 5-13 by mouth 3 ity of tablet 13:57: (three) [place] 16 times Medical daily. Branch gabapentin 0 [...] by mouth ity of tablet 13:57: daily. [place] [address] Medical Branch metFORMIN 0 Yes 500mg Take 500 Uni vers 500 mg 5-13 mg by ity of tablet 13:57: mouth [place] 16 daily. Medical Branch pantoprazol Yes 40mg Take 40 mg Univers e 40 mg EC 5-13 by mouth ity o f tablet 13:57: daily. [place] [address] Medical Branch mirtazapine 0 Yes 15mg Take 15 mg Univers 15 mg 5-13 by mouth ity of tablet 13:57: at [place] 16 bedtime. Medical Branch SITagliptin Yes Take by Uni vers -metformin 5-13 mouth. ity of (JANUMET 13:57: Indication [place] as XR) 16 s: 2 tabs Medical 50-1,000 mg BID Branch per tablet BUPROPION 0 Yes 150mg Take 150 Uni vers HCL ORAL 5-13 mg by ity of 13:57: mouth. [place] 16 Indication Medical s: 2 Branch tablets [...] by mouth ity of tablet 13:57: daily. [place] [address] Medical Branch metFORMIN Yes 500mg Take 500 Uni vers 500 mg 5-13 mg by ity of tablet 13:57: mouth [place] 16 daily. Medical Branch pantoprazol Yes 40mg Take 40 mg Univers e 40 mg EC 5-13 by mouth ity o f tablet 13:57: daily. [place] [address] Medical Branch mirtazapine Yes 15mg Take 15 [...] 5-13 mg by ity of 13:57: mouth. [place] 16 Indication Medical s: 2 Branch tablets [...] by mouth ity of tablet 13:57: daily. [place] [address] Medical Branch metFORMIN 2021-0 Yes 500mg Take 500 Uni vers 500 mg 5-13 mg by ity of tablet 13:57: mouth [place] 16 daily. Medical Branch pantoprazol 2021-0 Yes 40mg Take 40 mg Univers e 40 mg EC 5-13 by mouth ity o f tablet 13:57: daily. [place] [address] Medical Branch mirtazapine 2021-0 Yes 15mg Take 15 mg Univers 15 mg 5-13 by mouth ity of tablet 13:57: at [place] 16 bedtime. Medical Branch SITagliptin 0 Yes Take by Uni vers -metformin 5-13 mouth. ity of (JANUMET 13:57: Indication [place] as XR) 16 s: 2 tabs Medical 50-1,000 mg BID Branch per tablet BUPROPION 2021-0 Yes 150mg Take 150 Uni vers HCL ORAL 5-13 mg by ity of 13:57: mouth. [place] 16 Indication Medical s: 2 Branch tablets BID cyclobenzap 2021-0 Yes 10mg Take 10 mg Univers rine [...] by mouth ity of tablet 13:57: daily. [place] [address] Medical Branch metFORMIN 2021-0 Yes 500mg Take 500 Uni vers 500 mg 5-13 mg by ity of tablet 13:57: mouth [place] 16 daily. Medical Branch pantoprazol 0 Yes 40mg Take 40 mg Univers e 40 mg EC 5-13 by mouth ity o f tablet 13:57: daily. [place] [address] Medical Branch mirtazapine 0 Yes 15mg Take [...] 5-13 mg by ity of 13:57: mouth. [place] [address] Indication Medical s: 2 Branch tablets BID [...] by mouth ity of tablet 13:57: daily. [place] [address] Medical Branch metFORMIN 0 Yes 500mg Take 500 Uni vers 500 mg 5-13 mg by ity of tablet 13:57: mouth [place] 16 daily. Medical Branch pantoprazol 0 Yes 40mg Take 40 mg Univers e 40 mg EC 5-13 by mouth ity o f tablet 13:57: daily. [place] [address] Medical Branch mirtazapine 0 Yes 15mg Take [...] 5-13 mg by ity of 13:57: mouth. [place] 16 Indication Medical s: 2 Branch tablets [...] by mouth ity of tablet 13:57: daily. [place] [address] Medical Branch metFORMIN Yes 500mg Take 500 Uni vers 500 mg 5-13 mg by ity of tablet 13:57: mouth [place] 16 daily. Medical Branch pantoprazol Yes 40mg Take 40 mg Univers e 40 mg EC 5-13 by mouth ity o f tablet 13:57: daily. [place] [address] Medical Branch mirtazapine 0 Yes 15mg Take 15 mg Univers 15 mg 5-13 by mouth ity of tablet 13:57: at [place] 16 bedtime. Medical Branch SITagliptin 0 Yes Take by Uni vers -metformin 5-13 mouth. ity of (JUNUMET 13:57: Indication [place] as XR) 16 s: 2 tabs Medical 50-1,000 mg BID Branch per tablet BUPROPION 2022-0 Yes 150mg Take 150 Uni vers HCL ORAL 5-13 mg by ity of 13:57: mouth. [place] [address] Indication Medical s: 2 Branch tablets BID [...] mouth ity of 10 mg 13:57: at [place] tablet 16 bedtime. Medical Branch HYDROcodone 0 Yes 1{tbl} Take 1 Un [place] -acetaminop 5-13 tablet by ity of hen (NORCO) 13:57: mouth [place] 10-325 mg 16 every 6 Medical tablet (six) Branch hours as needed. meloxicam 0 Yes 15mg Take 15 mg Un [place] 15 mg 5-13 by mouth ity of tablet 13:57: daily. [place] [address] Medical Branch metFORMIN 0 Yes 500mg Take 500 Uni vers 500 mg 5-13 mg by ity of tablet 13:57: mouth [place] 16 daily. Medical Branch pantoprazol 0 Yes 40mg Take 40 mg Univers e 40 mg EC 5-13 by mouth ity o f tablet 13:57: daily. [place] [address] Medical Branch mirtazapine 0 Yes 15mg Take 15 mg Univers 15 mg 5-13 by mouth ity of tablet 13:57: at [place] 16 bedtime. Medical Branch SITagliptin 0 Yes Take by Uni vers -metformin 5-13 mouth. ity of (JANUMET 13:57: Indication [place] as XR) 16 s: 2 tabs Medical 50-1,000 mg BID Branch per tablet BUPROPION 2021-0 Yes 150mg Take 150 Uni vers HCL ORAL 5-13 mg by ity of 13:57: mouth. [place] [address] Indication Medical s: 2 Branch tablets BID cyclobenzap 0 Yes 10mg Take 10 mg Univers rine 10 mg 5-13 by mouth 3 ity of tablet 13:57: (three) [place] 16 times Medical daily. Branch Tamsulosin Tamsulosin [...] Source height 2022-03-25 10:00:00 61 [in_i] [facility] weight 2022-03-25 10:00:00 172 [lb_av] [facility] temperature 2022-03-25 10:00:00 98.1 [degF] [facility] bmi 2022-03-25 10:00:00 32.5 kg/m2 [facility] oximetry 2022-03-25 10:00:00 96 % [facility] respiratory rate 2022-03-25 10:00:00 16 /min Comm on [facility] blood pressure 2022-03-25 10:00:00 123 mm[Hg] [facility] systolic [facility] blood pressure 2022-03-25 10:00:00 73 mm[Hg] [facility] diastolic [facility] Systolic blood 2022-03-23 19:32:00 98 mm[Hg] Univer sity of pressure [facility] Diastolic blood 2022-03-23 19:32:00 63 mm[Hg] Unive rsity of pressure [facility] Heart rate 2022-03-23 19:32:00 78 /min [facility] Body weight 2022-03-23 19:32:00 [facility] 2022-03-23 19:32:00 33.50 kg/m2 [facility] Oxygen saturation in 2022-03-23 19:32:00 95 /min [facility] Arterial blood by [facility] Pulse oximetry Branch Systolic blood 2022-03-11 21:08:00 111 mm[Hg] Univer sity of [facility] Diastolic blood 2022-03-11 21:08:00 74 mm[Hg] Unive rsity of pressure [facility] Heart rate 2022-03-11 21:08:00 84 /min Universi ty of [facility] Body height 2022-03-11 21:08:00 154.9 cm Universi ty of [place] [facility] [place] Body weight 2022-03-11 21:08:00 77.111 kg Universi ty of [facility] BMI 2022-03-11 21:08:00 32.12 kg/m2 Universi ty of [facility] Branch Systolic blood 2022-01-26 18:50:00 100 mm[Hg] Univer sity of pressure [facility] Diastolic blood 2022-01-26 18:50:00 66 mm[Hg] Unive rsity of pressure [facility] Heart rate 2022-01-26 18:49:00 91 /min Universi ty of [facility] Body height 2022-01-26 18:49:00 154.9 cm Universi ty of [facility] Body weight 2022-01-26 18:49:00 76.658 kg Universi ty of [facility] BMI 2022-01-26 18:49:00 31.93 kg/m2 Universi ty [facility] Oxygen saturation in 2022-01-26 18:49:00 97 /min [facility] Arterial blood by [facility] Pulse oximetry Branch Procedures Procedure Date / Time Performing Clinician Source Performed INSURANCE CORRESPONDENCE 2022-05-06 06:01:00 Doctor Unassigned, [facility] Name [facility] INSURANCE CORRESPONDENCE 2022-04-17 05:01:00 Doctor Unassigned, [facility] Name [facility] EXTERNAL PROVIDER RECORDS 2022-03-10 05:01:00 Doctor Unassigned, [facility] [place] [facility] POCT HEMOGLOBIN A1C TEST 2022-01-26 00:00:00 Juan Carlos Escalera [facility] Encounters Start End Encounter Admission Attending Care Care Encounter Source Date/Time Date/Time Type Type Clinicians Facility Department ID 2022-03-26 Outpatient [facility] [id number] Common 14:10:01 Bhanu [facility] 2022-03-25 Out[facility], [facility] [id number] Common 10:07:01 Bhanu Cazares12 [facility] 2021-09-25 Outpatient Kohler, [facility] [id number] Common 14:10:00 Bhanu 57741 [facility] 2021-07-09 Outpatient Kohler, STLMLC ST[facility] [id number] Common 13:53:25 Bhanu 47880 [facility] 2021-07-09 Outpatient Kohler, STLMLC STL[facility] [id number] Common 13:15:22 Bhanu Mclaughlin16 [facility] 2021-07-09 Outpatient Kohler, STLMLC ST[facility] [id number] Common 13:09:01 Bhanu Melton [facility] 2021-07-09 Outpatient Kohler, STLMLC STLMLC [id number] Common 13:07:45 Bhanu Dunne [facility] 2021-07-09 Outpatient Kohler, STLMLC STLMLC [id number] Common 13:07:26 Bhanu Romero [facility] 2021-07-09 Outpatient Kohler, STLMLC STLMLC [id number] Common 12:57:00 Bhanu Forte [facility] 2022-07-01 2022-07-01 Outpatient R ALEXANDRA PANDEY [facility] [id number] Univers 10:00:00 10:00:00 ALEXANDRA PANDEY nayla [facility] 2022-06-04 2022-06-04 [facility] 1.2.840.114 [id number] Univers 00:00:00 00:00:00 [facility] [id number] it y of [place] 4.2.7.2.686 [place] as NATALIO?BLEA [id number] [address] MEDICAL OFFICE BUILDING 2022-05-19 2022-05-19 [facility] 1.2.840.114 [id number] Univers 00:00:00 00:00:00 [facility] [id number] it y of [place] 4.2.7.2.686 [place] as NATALIO?BLEA [id number] [address] MEDICAL OFFICE BUILDING 2022-05-13 2022-05-13 [facility] 1.2.840.114 [id number] Univers 00:00:00 00:00:00 [facility] [id number] it y of [place] 4.2.7.2.686 [place] as NATALIO?BLEA [id number] [address] OFFICE [facility] 2022-05-08 2022-05-08 Telephone [facility] 1.2.840.114 [id number] Univers 00:00:00 00:00:00 Juan Carlos HEALTH [id number] it y of [place] 4.2.7.2.686 [place] as NATALIO?BLEA [id number] [address] OFFICE [facility] 2022-05-06 2022-05-06 [facility]phone [facility] 1.2.840.114 [id number] Univers 00:00:00 00:00:00 [facility] [id number] it y of [place] 4.2.7.2.686 [place] as NATALIO?BLEA [id number] [address] OFFICE [facility] 2022-05-06 2022-05-06 Orders Doctor EMMANUEL 1..840.114 [id number] Univers 00:00:00 00:00:00 Only Unassigned, SUSAN [id number] ity of [place] [facility] 4.2.7.2.686 [place] as [id number] [address] 2022-04-27 2022-04-27 Outpatient R LALI [facility] [id number] Univers 16:00:00 16:00:00 JUAN CARLOS ity [facility] 2022-04-27 2022-04-27 Telephone [facility] 1.2.840.114 [id number] Univers 00:00:00 00:00:00 [facility] [id number] it y of [place] 4.2.7.2.686 [place] as NATALIO?BLEA [id number] [address] OFFICE [facility] 2022-04-21 2022-04-21 Telephone Alexandra Pandey [facility] 1.2.824.362 [id number] Univers 00:00:00 00:00:00 HEALTH 350.1.13.10 it y of [place] 4.2.7.2.686 [place] as NATALIO?BLEA [id number] [facility] [address] MEDICAL OFFICE [facility] 2022-04-17 2022-04-17 Orders Doctor EMMANUEL 1.2.840.114 [id number] Univers 00:00:00 00:00:00 Only Unassigned, SUSAN [id number] ity of [place] [facility] 4.2.7.2.686 [place] as [phone] [address] 2022-04-16 2022-04-16 Outpatient R LALI [facility] [id number] Univers 10:00:00 10:00:00 JUAN CARLOS ity [facility] 2022-04-16 2022-04-16 Telephone [facility] 1.2.840.114 [id number] Univers 00:00:00 00:00:00 [facility] 350.1.13.10 it y of [place] 4.2.7.2.686 [place] as NATALIO?BLEA [id number] [address] OFFICE [facility] 2022-04-10 2022-04-10 Telephone [facility] 1.2.840.114 [id number] Univers 00:00:00 00:00:00 [facility] 350.1.13.10 it y of [place] 4.2.7.2.686 [place] as NATALIO?BLEA [id number] [address] OFFICE [facility] 2022-04-01 2022-04-01 Telephone Alexandra Pandey [facility] 1.2.944.012 [id number] Univers 00:00:00 00:00:00 PRIMARY [id number] it y of [place]2.[place] [id number] [facility] [address] 2022-03-26 2022-03-26 (TEL) [facility] [id number] Co mmon 00:00:00 00:00:00 [facility] 2022-03-25 2022-03-[address] [facility] [id number] Co mmon 00:00:00 00:00:00 VISIT EST Spir it PT LEVEL 3 - [facility] 2022-03-23 2022-03-23 [facility], Ang - Db [facility] 1.2.840.1 14 [id number] Univers 15:30:00 15:45:00 Visit Alexandra Pandey [facility] 350.1.13.10 it y of [place] 4.2.7.2.686 [place] as NATALIO?BLEA [id number] [facility] [address] MEDICAL OFFICE BUILDING 2022-03-23 2022-03-23 Outpatient R ALEXANDRA PANDEY [facility] [id number] Univers 14:30:00 15:30:56 ALEXANDRA PANDEY [facility] 2022-03-23 2022-03-23 Office Nadia [facility] 1.2.840.114 [id number] Univers 14:30:00 15:30:56 Visit [facility] 350.1.13.10 it y of [place] 4.2.7.2.686 [place] as NATALIO?BLEA [id number] Ar alvino ADEN [address] MEDICAL OFFICE BUILDING 2022-03-19 2022-03-19 Telephone [facility] 1.2.840.114 [id number] Univers 00:00:00 00:00:00 [facility] 350.1.13.10 it y of [place] 4.2.7.2.686 [place] as NATALIO?BLEA [id number] [facility] 044 [facility] OFFICE [facility] 2022-03-17 2022-03-17 Refill [facility] 1.2.840.114 [id number] Univers 00:00:00 00:00:00 [facility] HEALTH 350.1.13.10 it y of [place] 4.2.7.2.686 [place] as NATALIO?BLEA [id number] [facility] 044 [facility] OFFICE [facility] 2022-03-11 2022-03-11 Office [facility] 1.2.840.114 [id number] Univers 16:00:00 16:15:00 Visit [facility] 350.1.13.10 it y of [place] 4.2.7.2.686 [place] as NATALIO?BLEA [id number] [address] MEDICAL OFFICE BUILDING 2022-03-11 2022-03-11 [facility] [id number] Univers 16:00:00 16:00:00 JUAN CARLOS ity of [facility] 2022-03-10 2022-03-10 Orders Doctor EMMANUEL 1.2.840.114 [id number] Univers 00:00:00 00:00:00 Only Unassigned, SUSAN 350.1.13.10 ity of [place] [facility] 4.2.7.2.686 [place] as [id number] [address] 2022-02-18 2022-02-18 Telephone [facility] 1.2.840.114 [id number] Univers 00:00:00 00:00:00 [facility] 350.1.13.10 it y of [place] 4.2.7.2.686 [place] as NATALIO?BLEA [id number] [address] OFFICE [facility] 2022-02-18 2022-02-18 Telephone [facility] 1.2.840.114 [id number] Univers 00:00:00 00:00:00 [facility] 350.1.13.10 it y of [place] 4.2.7.2.686 [place] as NATALIO?BLEA [id number] [address] OFFICE [facility] 2022-01-26 2022-01-26 Office [facility] 1.2.840.114 [id number] Univers 14:00:00 14:15:00 Visit [facility] 350.1.13.10 it y of [place] 4.2.7.2.686 [place] as NATALIO?BLEA [id number] [address] OFFICE [facility] 2022-01-26 2022-01-26 Outpatient [facility] [id number] Univers 14:00:00 14:00:00 JUAN CARLOS y [facility] 2022-01-26 2022-01-26 Outpatient R [facility] [id number] Univers 14:00:00 14:00:00 JUAN CARLOS ity [facility] 2022-01-26 2022-01-26 Outpatient R LALI [facility] [id number] Univers 13:15:00 13:15:00 JUAN CARLOS ity [facility] 2021-12-31 2021-12-31 [facility] 1.2.840.114 [id number] Univers 00:00:00 00:00:00 Management Maddie [place] 350.1.13.10 ity of [place].2.7.2.[place] [id number] [address] 2021-12-30 2021-12-30 Jorge [facility] 1.2.840.114 [id number] Univers 00:00:00 00:00:00 Management Maddie HEALTH 350.1.13.10 [facility] 4.2.7.2.686 [place] NATALIO?BLEA [id number] [address] MEDICAL OFFICE [facility] 2021-12-24 2021-12-24 [facility] BRIAN Blair 1.2.840.114 [id number] Univers 15:44:00 23:59:00 Encounter Yancy Arguelles 350.1.13.10 ity of [facility] 4.2.7.2.686 [place] as [id number] [address] 2021-12-24 2021-12-24 [facility] [id number] Univers 00:00:00 23:59:00 YANCY green [facility] 2021-12-22 2021-12-22 [facility] [id number] Univers 13:00:00 14:19:55 MADDIE ity [facility] 2021-12-22 2021-12-22 [facility] 1.2.840.114 [id number] Univers 13:00:00 14:19:55 Visit Maddie HEALTH 350.1.13.10 it y of [place] 4.2.7.2.686 [place] as NATALIO?BLEA [id number] [address] MEDICAL OFFICE [facility] 2021-12-19 2021-12-19 Outpatient R PAT [facility] [id number] Univers 15:30:00 15:30:00 CHLOE green [facility] 2021-11-01 2021-11-01 Orders Doctor EMMANUEL 1.2.840.114 [id number] Univers 00:00:00 00:00:00 Only Unassigned, SUSAN 350.1.13.10 ity of [place] [facility] 4.2.7.2.686 [place] as [id number] [address] 2021-10-24 2021-10-24 Office [facility] 1.2.840.114 [id number] [facility] 13:30:00 14:00:00 Visit [facility] 350.1.13.10 it y of [place] 4.2.7.2.686 [place]ullen as NATALIO?BLEA [id number] [address] MEDICAL OFFICE [facility] 2021-10-24 2021-10-24 [facility] [id number] Univers 13:30:00 13:30:00 JUAN CARLOS green [facility] 2021-10-24 2021-10-24 Orders Doctor EMMANUEL 1.2.840.114 [id number] Univers 00:00:00 00:00:00 Only Unassigned, SUSAN 350.1.13.10 ity of [place] [facility] 4.2.7.2.686 [place] as [id number] [address] 2019-02-01 2019-02-01 Emergency Rafita Bui [facility] 1.2.840.1 14 [id number] 16:31:58 22:14:00 Corey Lantigua 350.1.13.10 [place] 4.2.7.2.686 [place] [id number] Results Test Description Test Time Test Comments Results Result Comments Source POCT HEMOGLOBIN A1C TEST 2022-01-26 19:28:00 Test Item Value Reference Range Interpretation Comme nts POCT HBA1C (test code = 4548-4) 14.0 % 4-6 A Lab Interpretation (test code = 41039-7) Abnormal [facility]
--- NOTE | 2022-06-09 18:13 | ER ---
Nurse's Notes [facility] Name: Trever Jay Age: 62 yrs Sex: Male : 1960 Arrival Date: 06/09/2022 Time: 16:28 Bed 2 Private MD: Onur Hernandez Diagnosis: Cutaneous abscess of abdominal wall;Type 2 diabetes mellitus with hyperglycemia Presentation: 06/09 16:58 Chief complaint: Patient states: Redness, swelling, drainage from belly button for 2-3 ll1 days. Had intestinal SX in February. Coronavirus screen: Vaccine status: Patient reports receiving the 2nd dose of the covid vaccine. Client denies travel out of the [place] in the last 14 days. At this time, the client does not indicate any symptoms associated with coronavirus-19. Ebola Screen: Patient denies travel to an Ebola-affected area in the 21 days before illness onset. Initial Sepsis Screen: Does the patient meet any 2 criteria? No. Patient's initial sepsis screen is negative. Does the patient have a suspected source of infection? Yes: Skin breakdown/wound. Risk Assessment: Do you want to hurt yourself or someone else? Patient reports no desire to harm self or others. Onset of symptoms was June 07, 2022. 16:58 Method Of Arrival: Ambulatory ll1 16:58 Acuity: ANAMARIA 3 ll1 Historical: - Allergies: 17:00 No Known Allergies; ll1 - PMHx: 17:00 Anxiety; Asthma; Chronic pain; depressive disorder; Diabetes - NIDDM; diverticulosis; ll1 fatty liver; GERD; Hepatitis; High Cholesterol; incontinence; neuropathy; Osteoporosis; overactive bladder; - PSHx: 17:00 Left knee replacement; ll1 - Immunization history:: Client reports receiving the 2nd dose of the Covid vaccine. - Social history:: Smoking status: Patient/guardian denies using tobacco, the patient reports quitting approximately 15 years ago. - Family history:: not pertinent. Screenin:21 Abuse screen: Denies threats or abuse. Denies injuries from another. Nutritional as6 screening: No deficits noted. Tuberculosis screening: No symptoms or risk factors identified. Vital Signs: 16:58 BP 101 / 75; Pulse 91; Resp 18; Temp 97.9; Pulse Ox 99% ; Weight 72.57 kg; Height 5 ft. ll1 1 in. (154.94 cm); Pain 10/10; 19:00 BP 111 / 78; Pulse 81; Resp 18 S; Pulse Ox 100% on R/A; as6 21:20 BP 109 / 79; Pulse 82; Resp 18 S; Pulse Ox 100% on R/A; as6 16:58 Body Mass Index 30.23 (72.57 kg, 154.94 cm) ll1 ED Course: 16:28 Patient arrived in ED. am2 16:29 Onur Hernandez MD is Private Physician. am2 16:34 Donavon Tavares MD is Attending Physician. naz 17:00 Triage completed. ll1 17:00 Arm band placed on. ll1 18:11 Onur Duron MD is Hospitalizing Provider. [facility] 19:12 Christo Arguelles PA is PHCP. [facility] 21:19 Humble Carson, NATHALIE is Primary Nurse. as6 Administered Medications: 20:43 Drug: NS 0.9% 1000 ml Route: IV; Rate: 1 bolus; Site: right antecubital; em6 20:43 Drug: Pepcid (famotidine) 20 mg Route: IVP; Site: right antecubital; em6 20:43 Drug: Zofran (Ondansetron) 4 mg Route: IVP; Site: right antecubital; em6 20:43 Drug: Zosyn (piperacillin-tazobactam) 3.375 grams Route: IVPB; Infused Over: 60 mins; em6 Site: right antecubital; 20:44 Drug: morphine 4 mg Route: IVP; Infused Over: 4 mins; Site: right antecubital; em6 Medication: 21:21 VIS not applicable for this client. as6 Outcome: 18:12 Decision to Hospitalize by Provider. naz 22:55 Patient left the ED. as6 Signatures: Donavon Tavares MD MD cha Mickail, Joel, PA PA [facility] Ngozi Florian am2 Barry Torres RN RN ll1 Humble Carson, NATHALIE RN as6 Donita Parra RN RN em6 Corrections: (The following items were deleted from the chart) 17:00 17:00 Allergies: Ampicillin; ll1 ll1
--- NOTE | 2022-06-09 18:13 | EDPHYS ---
Physician Documentation [facility] Name: Trever Jay Age: 62 yrs Sex: Male : 1960 Arrival Date: 06/09/2022 Time: 16:28 Bed 2 Private MD: Onur Hernandez ED Physician Donavon Tavares HPI: 06/09 17:57 This 62 yrs old Male presents to ER via Ambulatory with complaints of Post naz Surgical Pain - swelling/redness. 17:57 This 62 yrs old Male presents to ER via Ambulatory with complaints of Post naz Surgical Pain - swelling/redness. 17:57 The patient presents with abdominal pain in the lower abdomen, abdominal distention. naz Onset: The symptoms/episode began/occurred 5 day(s) ago. The symptoms do not radiate. Associated signs and symptoms: none. Modifying factors: The symptoms are alleviated by remaining still, the symptoms are aggravated by movement, pressure, touching the area. Severity of pain: At its worst the pain was moderate in the emergency department the pain is unchanged. The patient has not experienced similar symptoms in the past. Historical: - Allergies: 17:00 No Known Allergies; ll1 - PMHx: 17:00 Anxiety; Asthma; Chronic pain; depressive disorder; Diabetes - NIDDM; diverticulosis; ll1 fatty liver; GERD; Hepatitis; High Cholesterol; incontinence; neuropathy; Osteoporosis; overactive bladder; - PSHx: 17:00 Left knee replacement; ll1 - Immunization history:: Client reports receiving the 2nd dose of the Covid vaccine. - Social history:: Smoking status: Patient/guardian denies using tobacco, the patient reports quitting approximately 15 years ago. - Family history:: not pertinent. ROS: 17:57 Constitutional: Negative for fever, chills, and weight loss, Eyes: Negative for injury, naz pain, redness, and discharge, ENT: Negative for injury, pain, and discharge, Neck: Negative for injury, pain, and swelling, Cardiovascular: Negative for chest pain, palpitations, and edema, Respiratory: Negative for shortness of breath, cough, wheezing, and pleuritic chest pain, Back: Negative for injury and pain, : Negative for injury, bleeding, discharge, and swelling, MS/Extremity: Negative for injury and deformity, Neuro: Negative for headache, weakness, numbness, tingling, and seizure, Psych: Negative for depression, anxiety, suicide ideation, homicidal ideation, and hallucinations, Allergy/Immunology: Negative for hives, rash, and allergies, Endocrine: Negative for neck swelling, polydipsia, polyuria, polyphagia, and marked weight changes, Hematologic/Lymphatic: Negative for swollen nodes, abnormal bleeding, and unusual bruising. 17:57 Abdomen/GI: Positive for abdominal pain, of the umbilical area, suprapubic area, right lower quadrant and left lower quadrant. Exam: 17:57 Constitutional: This is a well developed, well nourished patient who is awake, alert, naz and in no acute distress. Head/Face: Normocephalic, atraumatic. Eyes: Pupils equal round and reactive to light, extra-ocular motions intact. Lids and lashes normal. Conjunctiva and sclera are non-icteric and not injected. Cornea within normal limits. Periorbital areas with no swelling, redness, or edema. ENT: Nares patent. No nasal discharge, no septal abnormalities noted. Tympanic membranes are normal and external auditory canals are clear. Oropharynx with no redness, swelling, or masses, exudates, or evidence of obstruction, uvula midline. Mucous membranes moist. Neck: Trachea midline, no thyromegaly or masses palpated, and no cervical lymphadenopathy. Supple, full range of motion without nuchal rigidity, or vertebral point tenderness. No Meningismus. Chest/axilla: Normal chest wall appearance and motion. Nontender with no deformity. No lesions are appreciated. Cardiovascular: Regular rate and rhythm with a normal S1 and S2. No gallops, murmurs, or rubs. Normal PMI, no JVD. No pulse deficits. Respiratory: Lungs have equal breath sounds bilaterally, clear to auscultation and percussion. No rales, rhonchi or wheezes noted. No increased work of breathing, no retractions or nasal flaring. Back: No spinal tenderness. No costovertebral tenderness. Full range of motion. Male : Normal genitalia with no discharge or lesions. Skin: Warm, dry with normal turgor. Normal color with no rashes, no lesions, and no evidence of cellulitis. MS/ Extremity: Pulses equal, no cyanosis. Neurovascular intact. Full, normal range of motion. Neuro: Awake and alert, GCS 15, oriented to person, place, time, and situation. Cranial nerves II-XII grossly intact. Motor strength 5/5 in all extremities. Sensory grossly intact. Cerebellar exam normal. Normal gait. Psych: Awake, alert, with orientation to person, place and time. Behavior, mood, and affect are within normal limits. 17:57 Abdomen/GI: Inspection: scar(s), are noted in the epigastric area, umbilical area and suprapubic area, Bowel sounds: normal, in all quadrants, Palpation: moderate abdominal tenderness, in the umbilical area, right lower quadrant and left lower quadrant. 17:57 Skin: abscess, with drainage, with fluctuance, with induration, with surrounding cellulitis, that is moderate, cellulitis, that is moderate. 19:00 ECG was reviewed by the Attending Physician. [facility] Vital Signs: 16:58 BP 101 / 75; Pulse 91; Resp 18; Temp 97.9; Pulse Ox 99% ; Weight 72.57 kg; Height 5 ft. ll1 1 in. (154.94 cm); Pain 10/10; 19:00 BP 111 / 78; Pulse 81; Resp 18 S; Pulse Ox 100% on R/A; as6 21:20 BP 109 / 79; Pulse 82; Resp 18 S; Pulse Ox 100% on R/A; as6 16:58 Body Mass Index 30.23 (72.57 kg, 154.94 cm) ll1 MDM: 16:34 Patient medically screened. [facility] 18:05 Differential diagnosis: non-specific abd pain. Data reviewed: vital signs, nurses [facility] notes, lab test result(s). Data interpreted: pvc monitor: rate is 91 beats/min, rhythm is regular, Pulse oximetry: on room air is 99 %. Counseling: I had a detailed discussion with the patient and/or guardian regarding: the historical points, exam findings, and any diagnostic results supporting the discharge/admit diagnosis, lab results, radiology results. 06/09 18:08 Order name: CBC with Diff; Complete Time: 19:01 [facility] 06/09 18:08 Order name: CMP; Complete Time: 19:33 [facility] 06/09 18:08 Order name: Lipase; Complete Time: 19:33 [facility] 06/09 18:08 Order name: Urine Microscopic Only [facility] 06/09 18:08 Order name: PT-INR; Complete Time: 19:38 [facility] 06/09 18:08 Order name: SARS RAPID; Complete Time: 19:01 [facility] 06/09 18:08 Order name: CT Abd/Pelvis - IV Contrast Only [facility] 06/09 19:01 Order name: Chest Single View XRAY [facility] 06/09 19:39 Order name: RAD; Complete Time: 19:44 EDMS 06/09 20:23 Order name: CT; Complete Time: 20:23 EDMS 06/09 18:08 Order name: IV Saline Lock; Complete Time: 18:47 [facility] 06/09 18:08 Order name: Labs collected and sent; Complete Time: 18:47 [facility] 06/09 18:08 Order name: EKG; Complete Time: 18:09 [facility] 06/09 18:08 Order name: EKG - Nurse/Tech; Complete Time: 19:02 [facility] 06/09 18:51 Order name: Labs - recollect needed: BLUE AND GREEN TOP; Complete Time: 19:09 ss EC:00 Rate is 79 beats/min. Rhythm is regular. QRS [place] is Normal. [place] interval is normal. QRS naz interval is normal. QT interval is normal. No Q waves. T waves are Normal. No ST changes noted. Clinical impression: Normal ECG and No evidence of ischemia. Interpreted by me. Reviewed by me. Administered Medications: 20:43 Drug: NS 0.9% 1000 ml Route: IV; Rate: 1 bolus; Site: right antecubital; em6 20:43 Drug: Pepcid (famotidine) 20 mg Route: IVP; Site: right antecubital; em6 20:43 Drug: Zofran (Ondansetron) 4 mg Route: IVP; Site: right antecubital; em6 20:43 Drug: Zosyn (piperacillin-tazobactam) 3.375 grams Route: IVPB; Infused Over: 60 mins; em6 Site: right antecubital; 20:44 Drug: morphine 4 mg Route: IVP; Infused Over: 4 mins; Site: right antecubital; em6 Disposition Summary: 06/09/22 18:12 Hospitalization Ordered Hospitalization Status: Inpatient Admission naz Provider: Onur Duron cha Location: Telemetry/MedSur (Inpatient) naz Condition: Fair naz Problem: new naz Symptoms: have improved naz Bed/Room Type: Standard naz Room Assignment: 229(06/09/22 21:10) cg Diagnosis - Cutaneous abscess of abdominal wall naz - Type 2 diabetes mellitus with hyperglycemia naz Forms: - Medication Reconciliation Form naz - SBAR form naz Signatures: Dispatcher [employer] EDDonavon Oneil MD MD cha Mickail, Joel, PA PA jmm Smirch, Shelby, RN RN ss Keri Ceballos RN RN cg Barry Torres RN RN ll1 Donita Parra RN RN em6 Corrections: (The following items were deleted from the chart) 17:00 17:00 Allergies: Ampicillin; ll1 ll1 21:10 18:12 naz cg
[2022-06-09 18:47] LABS: Absolute Lymphocytes (CBC) 1.3 K/uL (0.7-4.9); Hematocrit 33.7 % (39.6-49.0); Lymphocytes % 11.4 % (15.3-44.8); MPV 9.3 fL (7.6-11.3); RBC Red Blood Cell Count 3.92 M/uL (4.33-5.43)
[2022-06-09 19:00] LABS: SARS-CoV-2 Antigen Rapid Res Negative (Negative)
[2022-06-09] MEDS ORDERED: NA CHLORIDE 0.9% 1,000 ML IV SCH (19:00)
[2022-06-09 19:33] LABS: Bilirubin Total 0.5 mg/dL (0.2-1.0); Protein, Total 8.4 g/dL (6.4-8.2)
[2022-06-09 19:35] LABS: Protime INR 1.18
--- NOTE | 2022-06-09 19:38 | RAD REPORT ---
EXAM DESCRIPTION: RAD - Chest Single View - 06/09/2022 7:21 pm CLINICAL HISTORY: CHEST PAIN COMPARISON: Abdomen 1 View (KUB) dated 03/31/2022; Chest Single View dated 09/11/2021; Chest Single V iew dated 02/20/2021; Chest Single View dated 11/26/2020; Chest Single View dated 05/23/2019 FINDINGS: Lines: None. Lungs: No evidence of edema or pneumonia. Pleural: No significant pleural effusions or pneumothorax. Cardiac: The heart size is within normal limits. Mediastinum: Within normal limits. Bones: No acute fractures. Other: None IMPRESSION: No acute cardiopulmonary disease.
--- NOTE | 2022-06-09 20:22 | RAD REPORT ---
EXAM DESCRIPTION: CTAbdomen Pelvis W Contrast - 06/09/2022 7:58 pm CLINICAL HISTORY: Intra-abdominal abscess COMPARISON: Abdomen Pelvis W Contrast dated 05/01/2022 TECHNIQUE: CT of the abdomen and pelvis was performed with IV contrast. All CT scans are performed using dose optimization technique as appropriate and may include automated exposure control or mA/KV adjustment according to patient size. FINDINGS: Lower chest: No acute abnormality. Liver: No acute abnormality or suspicious lesions. Biliary: No biliary ductal dilatation. Stomach: No significant focal abnormality. Duodenum: No significant focal abnormality. Pancreas: Small cystic lesions are present at the pancreatic body and tail. The largest measures 12 m illimeters. Spleen: No significant abnormality. Adrenal: No suspicious lesions. Kidney/ureter: No hydronephrosis. No renal calculi. Retroperitoneum: No retroperitoneal adenopathy. Vascular: No aneurysm. Bowel: Right hemicolectomy.. Peritoneum: Denies skin thickening and subcutaneous edema at the umbilicus. No discrete fluid collect ions identified though there is clearly some fluid present. Bladder: Grossly unremarkable. Reproductive: No adnexal masses. Bones: No acute fracture. Multilevel degenerative changes are present in the spine. Other: n/a IMPRESSION: Pronounced skin thickening and subcutaneous edema around the umbilicus without discrete abscess. This is concerning for cellulitis with phlegmon. The inflammatory changes are extraperitonea l.
[2022-06-09] MEDS ORDERED: NA CHLORIDE 0.9% 100 ML IV ONE (20:32)
[2022-06-09] MEDS ORDERED: ONDANSETRON 4 MG/2 ML VIAL ONE (20:32)
[2022-06-09] MEDS ORDERED: MORPHINE 4 MG/ML SYR ONE (20:32)
[2022-06-09] MEDS ORDERED: PIPERACIL/TAZO 3.375 GM VIAL IV ONE (20:33)
[2022-06-09] MEDS ORDERED: FAMOTIDINE 20 MG/2 ML VIAL IV ONE (20:33)
[2022-06-09] MEDS ORDERED: NA CHLORIDE 0.9% 1,000 ML ONE (20:33)
[2022-06-09] MEDS ORDERED: ONDANSETRON 4 MG/2 ML VIAL IV PRN (22:29)
[2022-06-09] MEDS: FAMOTIDINE 20 MG/2 ML VIAL IV SCH (22:29)
[2022-06-09] MEDS ORDERED: D50W 25 GM/50 ML SYRINGE IV PRN (22:29)
[2022-06-09] MEDS ORDERED: GLUCAGON 1 MG/VIAL IM PRN (22:29)
[2022-06-09] MEDS ORDERED: ACETAMINOPHEN 325 MG TABLET PO PRN (22:31)
[2022-06-09] MEDS ORDERED: D10W 125 ML IV PRN (22:33)
[2022-06-09] MEDS: MORPHINE 4 MG/ML SYR IV PRN (23:55)
[2022-06-09] MEDS: INSULIN -REGULAR HUMAN 50 UNIT/0.5 ML ML SQ SCH (23:56)
[2022-06-10 00:21] VITALS: BMI 30.2
[2022-06-10] MEDS: PIPER TAZO 3.375 GM in NA CHLORIDE 0.9% 100 ML IV SCH ×3 (00:35→18:11)
[2022-06-10] MEDS: MORPHINE 4 MG/ML SYR IV PRN ×5 (04:00→22:13)
[2022-06-10 04:24] LABS: Absolute Lymphocytes (CBC) 1.2 K/uL (0.7-4.9); Hematocrit 28.4 % (39.6-49.0); Lymphocytes % 12.6 % (15.3-44.8); MCV 84.6 fL (80-100); MPV 8.6 fL (7.6-11.3); RBC Red Blood Cell Count 3.36 M/uL (4.33-5.43)
[2022-06-10 04:40] LABS: Albumin 2.5 g/dL (3.4-5.0); Bilirubin Direct 0.2 mg/dL (0-0.2); Bilirubin Total 0.5 mg/dL (0.2-1.0); Potassium 4.3 mmol/L (3.5-5.1); Protein, Total 6.7 g/dL (6.4-8.2)
[2022-06-10] MEDS: INSULIN -REGULAR HUMAN 50 UNIT/0.5 ML ML SQ SCH ×4 (07:30→19:48)
[2022-06-10] MEDS: FAMOTIDINE 20 MG/2 ML VIAL IV SCH ×2 (07:59→22:13)
[2022-06-10] MEDS ORDERED: BUPIVACAINE 0.5% PF 10 ML VIAL ONE (10:24)
[2022-06-10] MEDS ORDERED: propofoL 200 MG/20 ML VIAL IV ONE (11:47)
[2022-06-10] MEDS ORDERED: FENTANYL CITR 100 MCG/2 ML ONE (11:47)
[2022-06-10] MEDS ORDERED: MIDAZOLAM HCL 2 MG/2 ML INJ ONE (11:48)
[2022-06-10] MEDS ORDERED: LIDOCAINE 2% MPF 5 ML VIAL ONE (11:48)
[2022-06-10] MEDS ORDERED: INFLUENZA VACCINE (for 6+ mo) 0.5 ML DOSE IMVAC ONE (13:00)
[2022-06-10] MEDS ORDERED: NA CHLORIDE 0.9% 1,000 ML ONE (13:21)
--- NOTE | 2022-06-10 13:34 | P.HP ---
Date of Service: 06/10/22 PC: This patient presented to the emergency room with abdominal pain for diagnosis and treatment. HPC: Patient has noticed pain and swelling on his abdominal wall. Appears to be an area developing an abscess around his umbilicus. Says has been increasing in size over the last few days. PSHx: Recent exploratory laparotomy with bowel resection secondary to ischemic colitis PMHx: Coronary artery disease, diabetes, renal insufficiency Social Hx: Allergic to ibuprofen, metformin Sys R: No cough, wheeze, shortness of breath. Says he has not felt well since he developed this abscess. No other new complaints. O/E: Awake alert vital signs are stable, patient is afebrile HEENT: Within normal limits Chest: Air entry equal bilaterally Abd: Abdominal wall shows area of redness and erythema, area just around the umbilicus that appears to be starting to drain some purulent material Mayo: Intact Data: CT scan demonstrates abscess of the anterior abdominal wall, does not involve the peritoneal cavity Impression: Stitch abscess Plan: I will taken the operating room for exploration of this abscess cavity. I anticipate on finding a suture from his prior surgery. The risks of this procedure have been discussed. The possibility of bleeding, infection, and need for further surgeries and procedures was described. Recurrence was also outlined. He understands and wants us to proceed.
[2022-06-10] MEDS ORDERED: EPHEDRINE SULF 50 MG/ML VIAL ONE (13:49)
[2022-06-10] MEDS ORDERED: ONDANSETRON 4 MG/2 ML VIAL ONE (13:59)
[2022-06-10] MEDS ORDERED: KETOROLAC 30 MG/ML INJ ONE (13:59)
--- NOTE | 2022-06-10 14:31 | P.OP ---
Preoperative diagnosis: Abdominal wall abscess Postoperative diagnosis: The same Primary procedure: Incision and drainage of abdominal wall abscess Secondary procedure: Exploration of wound and removal of sutures Anesthesia: General Estimated blood loss: Less than 10 cc Specimen: Suture material removed but not sent for identification Operative Technique: The patient brought the operating room and placed supine on the table. After the induction of adequate general endotracheal anesthesia the area of the abdomen was prepped with a DuraPrep solution, he was draped in usual aseptic manner. Attention was turned towards the umbilicus. At the umbilicus there is a area at the apex of the umbilicus that is open and draining purulent material. From a previous surgery we had made a L-shaped around the umbilicus, the inferior portion shows some chronic granulation tissue. This was probed with a hemostat and broken down. Underneath this was a abscess cavity. At the base of this cavity was a large amount of our old Maxon that we had used to close this patient's wound. He had been closed with #2 nylon was started from the top and 1 from the bottom and these were both closed at the umbilicus. This is some remanent of some the suture that has not fully absorbed. The suture was removed. It was sent for identification. The abscess cavity was now noted be full mostly of granulation tissue as expected. This was taken down using electrocautery. The wound was then loosely approximated with interrupted sutures of chromic. At the end of the procedure the patient was in a stable condition was sent to the recovery room. Needle sponge instrument count were correct. No drains were placed. Complications: None Transferred to: Recovery Room Condition: Good
[2022-06-10] MEDS: MORPHINE 4 MG/ML SYR ONE ×2 (14:51→14:56)
[2022-06-10 15:15] VITALS: O2SAT 99
[2022-06-11] MEDS: PIPER TAZO 3.375 GM in NA CHLORIDE 0.9% 100 ML IV SCH ×2 (00:10→09:38)
[2022-06-11] MEDS: MORPHINE 4 MG/ML SYR IV PRN ×4 (02:08→14:05)
[2022-06-11] MEDS: INSULIN -REGULAR HUMAN 50 UNIT/0.5 ML ML SQ SCH ×2 (07:30→12:49)
[2022-06-11] MEDS: FAMOTIDINE 20 MG/2 ML VIAL IV SCH (09:38)
[2022-06-11 13:14] VITALS: BP 114/56; TEMP 98
--- NOTE | 2022-06-11 15:08 | P.DS ---
Admission Date: 06/09/22 Discharge Date: 06/11/22 Primary Care Provider: Oliverio Disposition: ROUTINE DISCHARGE Discharge Condition: GOOD Reason for Admission: Abdominal wall abscess Procedures: Expiration of the abdominal wall with sharp debridement Brief History of Present Illness: This patient has noticed increasing abdominal pain with redness and swelling around his umbilicus for the last few days. Redness started to spread. He came to the emergency room because he was having increasing pain and discomfort. Hospital Course: The patient was evaluated in the emergency room. The patient has undergone exploratory laparotomy with polyps resection during the summer months. This appears to be consistent with a abdominal wall stitch abscess. He was admitted to the hospital for observation and antibiotics. The following day he was brought to the operating room for an exploration of this wound. At that surgery the wound was open, old suture was found in the wound, which was removed. The wound itself was then sharply debrided with a 11 blade, a surgical curette, and the skin edges approximated with 6 chromic sutures. No drains were placed. He was admitted postoperatively for observation and pain control. Today he is up in his wheelchair, roaming the halls, and is anxious to be discharged. Vital Signs/Physical Exam: Temp Pulse Resp BP Pulse Ox 98.0 F 89 16 114/56 L 100 06/11/22 12:00 06/11/22 12:00 06/11/22 14:05 06/11/22 12:00 06/11/22 14:05 Gastrointestinal: Other (Patient surgical wound is clean, intact, with minimal erythema today.) Laboratory Data at Discharge: WBC 9.30 K/uL (4.3-10.9) 06/10/22 04:08 Hgb 9.3 g/dL (13.6-17.9) L D 06/10/22 04:08 Hct 28.4 % (39.6-49.0) L 06/10/22 04:08 Plt Count 246 K/uL (152-406) 06/10/22 04:08 PT 13.0 SECONDS (9.5-12.5) H 06/09/22 19:08 INR 1.18 06/09/22 19:08 Sodium 140 mmol/L (136-145) D 06/10/22 04:08 Potassium 4.3 mmol/L (3.5-5.1) 06/10/22 04:08 BUN 17 mg/dL (7-18) 06/10/22 04:08 Creatinine 1.15 mg/dL (0.70-1.30) 06/10/22 04:08 Glucose 174 mg/dL (74-106) H 06/10/22 04:08 Total Bilirubin 0.5 mg/dL (0.2-1.0) 06/10/22 04:08 AST 5 U/L (15-37) L 06/10/22 04:08 ALT 13 U/L (16-61) L 06/10/22 04:08 Alkaline Phosphatase 87 U/L (45-117) D 06/10/22 04:08 Lipase 73 U/L (73-393) 06/10/22 04:08 Home Medications: Gabapentin [Neurontin] 800 mg PO TID 09/10/20 Hydrocodone 10/APAP 325 [[place] 10/325*] 1 tab PO QID 09/10/20 Tramadol HCl [Ultram] 50 mg PO TID 09/10/20 Lovastatin [Altoprev] 40 mg PO 1700 11/28/20 Pantoprazole [Protonix Tab*] 40 mg PO DAILY 11/28/20 Tamsulosin [Flomax*] 0.8 mg PO BEDTIME 11/28/20 Amitriptyline [Elavil*] 25 mg PO BEDTIME 04/01/22 Finasteride [Proscar] 5 mg PO DAILY 04/01/22 Glipizide [Glipizide ER] 5 mg PO DAILY 04/01/22 Mirabegron [Myrbetriq] 25 mg PO DAILY 04/01/22 Topiramate [Topamax*] 50 mg PO DAILY 04/01/22 Verapamil HCl [Calan] 40 mg PO DAILY 04/01/22 Losartan Potassium [Cozaar*] 50 mg PO DAILY #30 tab 04/09/22 Metoprolol Tartrate [Lopressor*] 25 mg PO BID 6AM 6PM #60 tab 04/09/22 Insulin Glargine,Hum.rec.anlog [Lantus] 26 units SQ DAILY 06/09/22 Meloxicam [Mobic] 15 mg PO DAILY 06/09/22 Physician Discharge Instructions: DC IV, DC home. He may change dressing as needed. He is to call my office for an appointment next week. He does not require any antibiotics. Should he have any questions or problems, he may go to the emergency room, or contact my office. He understands and his is here as well. Diet: Regular Activity: Ad martine Followup: Onur Duron MD [ACTIVE - CAN ADMIT] - 1-2 Weeks Onur Hernandez MD [Primary Care Provider] -
--- NOTE | 2022-06-11 17:49 | EKG ---
Test Date: 2022-06-09 Test Time: 18:54:04 [employer]: BON MEASUREMENT RESULTS: Intervals: Rate: 79 MT: 146 QRSD: 88 QT: 360 QTc: 412 [place]: P: 26 MT: 146 QRS: 5 T: -5 INTERPRETIVE STATEMENTS: Normal sinus rhythm Normal ECG Compared to ECG 03/30/2022 08:24:03 Left-axis deviation no longer present Electronically Signed On 06-11-22 17:45:32 PMO LEAD by Buster Le
== END 2022-06-11 15:05 | disposition home health service (06) | DRG 863 ==
LOC: ER 16:27 → ERHOLD 18:14 → 2ND 21:29
PROVIDERS: ADMIT Surgery; ATTEND Surgery
PROC: 0W9F3ZZ Drainage of Abdominal Wall, Percutaneous Approach (ICD-10-PCS; principal; 2022-06-10 12:00)
DX: T81.41XA Infection following a procedure, superficial incisional surgical site, initial encounter (principal); L02.211 Cutaneous abscess of abdominal wall; K55.9 Vascular disorder of intestine, unspecified; E11.65 Type 2 diabetes mellitus with hyperglycemia; Z79.4 Long term (current) use of insulin; F32.A Depression, unspecified; F41.8 Other specified anxiety disorders; G89.29 Other chronic pain; K57.90 Diverticulosis of intestine, part unspecified, without perforation or abscess without bleeding; K76.0 Fatty (change of) liver, not elsewhere classified; K21.9 Gastro-esophageal reflux disease without esophagitis; K75.9 Inflammatory liver disease, unspecified; R32 Unspecified urinary incontinence; M81.0 Age-related osteoporosis without current pathological fracture; N32.81 Overactive bladder; I25.10 Atherosclerotic heart disease of native coronary artery without angina pectoris; N28.9 Disorder of kidney and ureter, unspecified
CPT/HCPCS: 36415; 71045; 74177; 80048; 80053; 80076; 82947; 83690; 85025; 85610; 87811; 93005; 96374; 96375; 99283; J1815; J2001; J2250; J2405; J2543; J2704; J3010; J7030; Q9967

== ENCOUNTER 2023-04-24 13:22 | Inpatient (IN) | payer OTHER ==
--- OUTSIDE RECORDS SUMMARY | 2023-04-24 13:39 | XMS REPORT | Continuity of Care Document ---
:1960 Author Organization [facility] t Address [address] [place] [address] [place] [id number] Care Team Providers Name Role Phone Juan Carlos Escalera MD Primary Care Physician [phone] Bhanu Kohler Attending Clinician Unavailable ASHLEIGH LEE Attending Clinician Unavailable JUAN CARLOS ESCALERA Attending Clinician Unavailable Juan Carlos Escalera MD Attending Clinician Geni Boles MD Attending Clinician SOLANGE GONZALEZ Attending Clinician Unavailable GENI BOLES Attending Clinician Unavailable GENI BOLES Attending Clinician Unavailable Doctor Unassigned, [place] Attending Clinician Unavailable Sarah Nguyen Attending Clinician SARAH STEWART Attending Clinician Unavailable Lab, [facility] - Db Attending Clinician Unavailable Chelsie Wall MD Attending Clinician REJI STOLL Attending Clinician Unavailable Reji Stoll PA-C Attending Clinician Unknown, Attending Attending Clinician Unavailable Ileana Pandey MD Attending Clinician , [facility] Sleep Lab Bed Attending Clinician Unavailable Yadira Fregoso RN Attending Clinician Unavailable [facility] Attending Clinician Unavailable Corey Lantigua MD Attending Clinician Grace Canseco MD Attending Clinician ILEANA PANDEY Attending Clinician Unavailable Maddie Russo PA-C Attending Clinician Yancy Blair MD Attending Clinician YANCY BLAIR Attending Clinician Unavailable MADDIE RUSSO Attending Clinician Unavailable Rafita Bui MD Attending Clinician ASHLEIGH LEE Admitting Clinician Unavailable YANCY BLAIR Admitting Clinician Unavailable Payers Payer Name Policy Type Policy Number Effective Date Expiration Date S freeman [facility] [id number] 2022 DUAL COMP HMO D 00:00:00 [facility] MEDICAID [id number] 2015 [place] 00:00:00 [facility] Dual 53 [id number] 2020 [facility] Complete MCR 00:00:00 [facility] Problems Condition Condition Condition Status Onset Resolution Last Treating Co mments Source Name Details Category Date Date Treatment Clinician Date ROLDAN ROLDAN Disease Active Univers (obstructi (obstructi 2-15 it y of ve sleep ve sleep 00:00: [place] apnea) apnea) 00 Medical Branch Back pain Back pain Disease Active Uni [...] [place] Spinal Spinal Disease Active 2017-06 Univers stenosis stenosis 2-17 [place] of [place] [facility] [place] Chronic Chronic Disease Active 2017-06 [facility] pain pain 2-17 ity of disorder disorder 00:00: [address] [id number] Posthitis Problem Comm on [facility] [id number] OAB Problem Common (overactiv Spirit e bladder) [facility] Kidney Calcium Problem Common stone kidney [facility] stones [facility] [id number] Urge Problem Common incontinen Spirit ce [facility] [id number] BPH loc w Problem Com mon urin Spirit obs/LUTS - [facility] Allergies, Adverse Reactions, Alerts Allergy Allergy Status Severity Reaction(s) Onset Inactive Treating Comm ents Source Name Type Date Date Clinician NO KNOWN Drug Active Univers ALLERGIE Class ity of [facility] Social History Social Habit Start Date Stop Date Quantity Comments Source History of tobacco Current smoker Un iversity of use [facility] Gender identity Universit y [facility] carlos - [facility] Alcohol intake 2023-03-31 2023-03-31 Ex-drinker [facility] 00:00:00 00:00:00 (finding) [facility] History of Social 2022-12-09 2022-12-09 Univers ity of function 00:00:00 00:00:00 [facility] Exposure to 2022-11-28 2022-12-08 Not sure [facility] SARS-CoV-2 (event) 00:00:00 21:54:00 [facility] Tobacco use and 2022-07-28 2022-07-28 Smokeless Universit y of exposure 00:00:00 00:00:00 tobacco non-user [facility] Smoking Status Start Date Stop Date Source Ex-smoker 2022-07-28 00:00:00 2022-07-28 00:00:00 Universi ty [facility] Medications Ordered Filled Start Stop Current Ordering Indication Dosage Frequency Signature Comments Components Source Medication Medication Date Date Medication? Clinician (SIG) Name Name TOPIRAMATE 2022-06 Yes [id number] TAKE 1 U nivers 50 mg 1-09 TABLET BY ity of tablet 00:00: MOUTH [place] [address] EVERY DAY [facility] ULTICARE 2022-06 Yes [id number] USE WITH U nivers PEN NEEDLE 0-24 LANTUS PEN ity of 31 gauge x 00:00: 10/27" [place] Medical Branch FREESTYLE 202- Yes [id number] USE Un [place] DEBORAH 2 0-24 DIRECTED ity of SENSOR Kit 00:00: Medical Branch ULTICARE 2022-1 Yes [id number] USE WITH U nivers PEN NEEDLE 0-24 LANTUS PEN ity of 31 gauge x 00:00: 10/27" [place] 00 Medical Branch FREESTYLE 2022- Yes [id number] USE Un [place] DEBORAH 2 0-24 DIRECTED ity of SENSOR Kit 00:00: Medical Branch TRUEPLUS 2022-1 Yes USE 3 Univers LANCETS 30 0-24 TIMES ity of gauge Misc 00:00: DAILY [place] 00 DIRECTED Medical Branch ULTICARE 2022-1 Yes [id number] USE WITH U nivers PEN NEEDLE 0-24 LANTUS PEN ity of 31 gauge x 00:00: 10/27" [place] Medical Branch FREESTYLE 2022- Yes [id number] USE Un [place] DEBORAH 2 0-24 DIRECTED ity of SENSOR Kit 00:00: Medical Branch TRUEPLUS 2023-1 Yes USE 3 Univers LANCETS 30 0-24 TIMES ity of gauge Misc 00:00: DAILY [place] 00 DIRECTED Medical Branch ULTICARE 2022-1 Yes [id number] USE WITH U nivers PEN NEEDLE 0-24 LANTUS PEN ity of 31 gauge x 00:00: 10/27" [place] Medical Branch FREESTYLE 2022- Yes [id number] USE [place] DEBORAH 2 0-24 DIRECTED ity of SENSOR Kit 00:00: Medical Branch TRUEPLUS 2023-1 Yes USE 3 Univers LANCETS 30 0-24 TIMES ity of gauge Misc 00:00: DAILY [place] 00 DIRECTED Medical Branch ULTICARE 2022-1 Yes [id number] USE WITH U nivers PEN NEEDLE 0-24 LANTUS PEN ity of 31 gauge x 00:00: 10/27" [place] 00 Medical Branch FREESTYLE 2022-1 Yes [id number] USE Un [place] DEBORAH 2 0-24 DIRECTED ity of SENSOR Kit 00:00: Medical Branch TRUEPLUS 2023-1 Yes USE 3 Univers LANCETS 30 0-24 TIMES ity of gauge Misc 00:00: DAILY [place] 00 DIRECTED Medical Branch SOLIFENACIN 2022- Yes [id number] 5mg TAKE 1 Univers 5 mg tablet 0-03 TABLET BY ity of 00:00: MOUTH [place] EVERY DAY Medical Branch SOLIFENACIN 2022-1 Yes [id number] 5mg TAKE 1 Univers 5 mg tablet 0-03 TABLET BY ity of 00:00: MOUTH [place] EVERY DAY Medical Branch SOLIFENACIN 2022-1 Yes [id number] 5mg TAKE 1 Univers 5 mg tablet 0-03 TABLET BY ity of 00:00: MOUTH [place] EVERY DAY Medical Branch SOLIFENACIN 2022-1 Yes [id number] 5mg TAKE 1 Univers 5 mg tablet 0-03 TABLET BY ity of 00:00: MOUTH [place] EVERY DAY Medical Branch SOLIFENACIN 2022-1 Yes [id number] 5mg TAKE 1 Univers 5 mg tablet 0-03 TABLET BY ity of 00:00: MOUTH [place] EVERY DAY Medical Branch SOLIFENACIN 2022-1 Yes [id number] 5mg TAKE 1 Univers 5 mg tablet 0-03 TABLET BY ity of 00:00: MOUTH [place] 00 EVERY DAY Medical Branch SOLIFENACIN 2022-1 Yes [id number] 5mg TAKE 1 Univers 5 mg tablet 0-03 TABLET BY ity of 00:00: MOUTH [place] EVERY DAY Medical Branch SOLIFENACIN 2022-1 Yes [id number] 5mg TAKE 1 Univers 5 mg tablet 0-03 TABLET BY ity of 00:00: MOUTH [place] EVERY DAY Medical Branch SOLIFENACIN 2022-1 Yes [id number] 5mg TAKE 1 Univers 5 mg tablet 0-03 TABLET BY ity of 00:00: MOUTH [place] 00 EVERY DAY Medical Branch SOLIFENACIN 2022-1 Yes [id number] 5mg TAKE 1 Univers 5 mg tablet 0-03 TABLET BY ity of 00:00: MOUTH [place] EVERY DAY Medical Branch SOLIFENACIN 2022-1 Yes [id number] 5mg TAKE 1 Univers 5 mg tablet 0-03 TABLET BY ity of 00:00: MOUTH [place] 00 EVERY DAY Medical Branch SOLIFENACIN 2022-1 Yes [id number] 5mg TAKE 1 Univers 5 mg tablet 0-03 TABLET BY ity of 00:00: MOUTH [place] EVERY DAY Medical Branch SOLIFENACIN 2023-0 Yes 5mg TAKE 1 Univ ers 5 mg tablet 9-15 TABLET BY ity of 00:00: MOUTH [place] EVERY DAY Medical Branch SOLIFENACIN 2023-0 Yes 5mg TAKE 1 Univ ers 5 mg tablet 9-15 TABLET BY ity of 00:00: MOUTH [place] EVERY DAY Medical Branch SOLIFENACIN 2023-0 Yes 5mg TAKE 1 Univ ers 5 mg tablet 9-15 TABLET BY ity of 00:00: [facility] EVERY DAY Medical Branch SOLIFENACIN 2023-0 Yes 5mg TAKE 1 Univ ers 5 mg tablet 9-15 TABLET BY ity of 00:00: MOUTH [place] EVERY DAY Medical Branch SOLIFENACIN 2023-0 Yes 5mg TAKE 1 Univ ers 5 mg tablet 9-15 TABLET BY ity of 00:00: [facility] EVERY DAY Medical Branch SOLIFENACIN 2023-0 2023- No 5mg TAKE 1 Uni vers 5 mg tablet 9-15 10-03 TABLET BY it y of 00:00: 00:00 [facility] [place] 00 :00 EVERY DAY Medical Branch TOPIRAMATE 2023-0 Yes [id number] TAKE 1 U nivers 50 mg 8-29 TABLET BY ity of tablet 00:00: [facility] 00 EVERY DAY Medical Branch TOPIRAMATE 2023-0 Yes [id number] TAKE 1 U nivers 50 mg 8-29 TABLET BY ity of tablet 00:00: [facility] EVERY DAY Medical Branch TOPIRAMATE 2023-0 Yes [id number] TAKE 1 U nivers 50 mg 8-29 TABLET BY ity of tablet 00:00: [facility] EVERY DAY Medical Branch TOPIRAMATE 2023-0 Yes [id number] TAKE 1 U nivers 50 mg 8-29 TABLET BY ity of tablet 00:00: [facility] 00 EVERY DAY Medical Branch TOPIRAMATE 2023-0 Yes [id number] TAKE 1 U nivers 50 mg 8-29 TABLET BY ity of tablet 00:00: [facility] EVERY DAY Medical Branch TOPIRAMATE 2023-0 Yes [id number] TAKE 1 U nivers 50 mg 8-29 TABLET BY ity of tablet 00:00: [facility] 00 EVERY DAY Medical Branch TOPIRAMATE 2023-0 Yes [id number] TAKE 1 U nivers 50 mg 8-29 TABLET BY ity of tablet 00:00: [facility] 00 EVERY DAY Medical Branch TOPIRAMATE 2023-0 Yes [id number] TAKE 1 U nivers 50 mg 8-29 TABLET BY ity of tablet 00:00: MOUTH [place] 00 EVERY DAY Medical Branch TOPIRAMATE 2023-0 Yes [id number] TAKE 1 U nivers 50 mg 8-29 TABLET BY ity of tablet 00:00: MOUTH [place] 00 EVERY DAY Medical Branch TOPIRAMATE 2023-0 Yes [id number] TAKE 1 U nivers 50 mg 8-29 TABLET BY ity of tablet 00:00: MOUTH [place] 00 EVERY DAY Medical Branch TOPIRAMATE 2023-0 Yes [id number] TAKE 1 U nivers 50 mg 8-29 TABLET BY ity of tablet 00:00: MOUTH [place] 00 EVERY DAY Medical Branch TOPIRAMATE 2023-0 Yes [id number] TAKE 1 U nivers 50 mg 8-29 TABLET BY ity of tablet 00:00: MOUTH [place] 00 EVERY DAY Medical Branch TOPIRAMATE 2023-0 Yes [id number] TAKE 1 U nivers 50 mg 8-29 TABLET BY ity of tablet 00:00: MOUTH [place] 00 EVERY DAY Medical Branch TOPIRAMATE 2023-0 Yes [id number] TAKE 1 U nivers 50 mg 8-29 TABLET BY ity of tablet 00:00: MOUTH [place] 00 EVERY DAY Medical Branch TOPIRAMATE 2023-0 Yes [id number] TAKE 1 U nivers 50 mg 8-29 TABLET BY ity of tablet 00:00: [facility] 00 EVERY DAY Medical Branch TOPIRAMATE 2023-0 Yes [id number] TAKE 1 U nivers 50 mg 8-29 TABLET BY ity of tablet 00:00: [facility] 00 EVERY DAY Medical Branch TOPIRAMATE 2023-0 Yes [id number] TAKE 1 U nivers 50 mg 8-29 TABLET BY ity of tablet 00:00: MOUTH [place] 00 EVERY DAY Medical Branch TOPIRAMATE 2023-0 Yes [id number] TAKE 1 U nivers 50 mg 8-29 TABLET BY ity of tablet 00:00: MOUTH [place] 00 EVERY DAY Medical Branch TOPIRAMATE 2023-0 2023- No [id number] TAKE 1 Univers 50 mg 8-29 11-09 TABLET BY ity of tablet 00:00: 00:00 MOUTH [place] 00 :00 EVERY DAY Medical Branch rivastigmin 2023-0 Yes [id number] 4.5mg Take 1 Univers e tartrate 7-24 capsule by ity of 4.5 mg 00:00: mouth [place] capsule 00 every Medical morning Branch and evening. memantine 2023-0 Yes [id number] 10mg Take 1 Un [place] 10 mg 7-24 tablet by ity of tablet 00:00: mouth in [place] 00 the Medical morning. Branch rivastigmin 2023-0 Yes [id number] 4.5mg Take 1 Univers e tartrate 7-24 capsule by ity of 4.5 mg 00:00: mouth [place] capsule 00 every Medical morning Branch and evening. memantine 2023-0 Yes [id number] 10mg Take 1 Un [place] 10 mg 7-24 tablet by ity of tablet 00:00: mouth in [place] 00 the Medical morning. Branch rivastigmin 2023-0 Yes [id number] 4.5mg Take 1 Univers e tartrate 7-24 capsule by ity of 4.5 mg 00:00: mouth [place] capsule 00 every Medical morning Branch and evening. memantine 2023-0 Yes [id number] 10mg Take 1 Un [place] 10 mg 7-24 tablet by ity of tablet 00:00: mouth in [place] 00 the Medical morning. Branch rivastigmin 2023-0 Yes [id number] 4.5mg Take 1 Univers e tartrate 7-24 capsule by ity of 4.5 mg 00:00: mouth [place] capsule 00 every Medical morning Branch and evening. memantine 2023-0 Yes [id number] 10mg Take 1 Un [place] 10 mg 7-24 tablet by ity of tablet 00:00: mouth in [place] 00 the Medical morning. Branch rivastigmin 3-0 Yes [id number] 4.5mg Take 1 Univers e tartrate 7-24 capsule by ity of 4.5 mg 00:00: mouth [place] capsule 00 every Medical morning Branch and evening. memantine 2023-0 Yes [id number] 10mg Take 1 Un [place] 10 mg 7-24 tablet by ity of tablet 00:00: mouth in [place] 00 the Medical morning. Branch rivastigmin 2023-0 Yes [id number] 4.5mg Take 1 Univers e tartrate 7-24 capsule by ity of 4.5 mg 00:00: mouth [place] capsule 00 every Medical morning Branch and evening. memantine 2023-0 Yes [id number] 10mg Take 1 [place] 10 mg 7-24 tablet by ity of tablet 00:00: mouth in [place] 00 the Medical morning. Branch rivastigmin 2023-0 Yes [id number] 4.5mg Take 1 Univers e tartrate 7-24 capsule by ity of 4.5 mg 00:00: mouth [place] capsule 00 every Medical morning Branch and evening. memantine 3-0 Yes [id number] 10mg Take 1 Un [place] 10 mg 7-24 tablet by ity of tablet 00:00: mouth in [place] 00 the Medical morning. Branch rivastigmin 2023-0 Yes [id number] 4.5mg Take 1 Univers e tartrate 7-24 capsule by ity of 4.5 mg 00:00: mouth [place] capsule 00 every Medical morning Branch and evening. memantine 2023-0 Yes [id number] 10mg Take 1 [place] 10 mg 7-24 tablet by ity of tablet 00:00: mouth in [place] 00 the Medical morning. Branch rivastigmin 3-0 Yes [id number] 4.5mg Take 1 Univers e tartrate 7-24 capsule by ity of 4.5 mg 00:00: mouth [place] capsule 00 every Medical morning Branch and evening. memantine 3-0 Yes [id number] 10mg Take 1 [place] 10 mg 7-24 tablet by ity of tablet 00:00: mouth in [place] 00 the Medical morning. Branch rivastigmin 3-0 Yes [id number] 4.5mg Take 1 Univers e tartrate 7-24 capsule by ity of 4.5 mg 00:00: mouth [place] capsule 00 every Medical morning Branch and evening. memantine 3-0 Yes [id number] 10mg Take 1 [place] 10 mg 7-24 tablet by ity of tablet 00:00: mouth in [place] 00 the Medical morning. Branch rivastigmin 3-0 Yes [id number] 4.5mg Take 1 Univers e tartrate 7-24 capsule by ity of 4.5 mg 00:00: mouth [place] capsule 00 every Medical morning Branch and evening. memantine 2023-0 Yes [id number] 10mg Take 1 [place] 10 mg 7-24 tablet by ity of tablet 00:00: mouth in [place] 00 the Medical morning. Branch rivastigmin 2023-0 Yes [id number] 4.5mg Take 1 Univers e tartrate 7-24 capsule by ity of 4.5 mg 00:00: mouth [place] capsule 00 every Medical morning Branch and evening. memantine 2023-0 Yes [id number] 10mg Take 1 [place] 10 mg 7-24 tablet by ity of tablet 00:00: mouth in [place] 00 the Medical morning. Branch rivastigmin 3-0 Yes [id number] 4.5mg Take 1 Univers e tartrate 7-24 capsule by ity of 4.5 mg 00:00: mouth [place] capsule 00 every Medical morning Branch and evening. memantine 2023-0 Yes [id number] 10mg Take 1 [place] 10 mg 7-24 tablet by ity of tablet 00:00: mouth in [place] 00 the Medical morning. Branch rivastigmin 2023-0 Yes [id number] 4.5mg Take 1 Univers e tartrate 7-24 capsule by ity of 4.5 mg 00:00: mouth [place] capsule 00 every Medical morning Branch and evening. memantine 3-0 Yes [id number] 10mg Take 1 [place] 10 mg 7-24 tablet by ity of tablet 00:00: mouth in [place] 00 the Medical morning. Branch rivastigmin 3-0 Yes [id number] 4.5mg Take 1 Univers e tartrate 7-24 capsule by ity of 4.5 mg 00:00: mouth [place] capsule 00 every Medical morning Branch and evening. memantine 3-0 Yes [id number] 10mg Take 1 [place] 10 mg 7-24 tablet by ity of tablet 00:00: mouth in [place] 00 the Medical morning. Branch rivastigmin 3-0 Yes [id number] 4.5mg Take 1 Univers e tartrate 7-24 capsule by ity of 4.5 mg 00:00: mouth [place] capsule 00 every Medical morning Branch and evening. memantine 2023-0 Yes [id number] 10mg Take 1 [place] 10 mg 7-24 tablet by ity of tablet 00:00: mouth in [place] 00 the Medical morning. Branch rivastigmin 2023-0 Yes [id number] 4.5mg Take 1 Univers e tartrate 7-24 capsule by ity of 4.5 mg 00:00: mouth [place] capsule 00 every Medical morning Branch and evening. memantine 2023-0 Yes [id number] 10mg Take 1 [place] 10 mg 7-24 tablet by ity of tablet 00:00: mouth in [place] 00 the Medical morning. Branch rivastigmin 2023-0 Yes [id number] 4.5mg Take 1 Univers e tartrate 7-24 capsule by ity of 4.5 mg 00:00: mouth [place] capsule 00 every Medical morning Branch and evening. memantine 3-0 Yes [id number] 10mg Take 1 [place] 10 mg 7-24 tablet by ity of tablet 00:00: mouth in [place] 00 the Medical morning. Branch rivastigmin 3-0 Yes [id number] 4.5mg Take 1 Univers e tartrate 7-24 capsule by ity of 4.5 mg 00:00: mouth [place] capsule 00 every Medical morning Branch and evening. memantine 3-0 Yes [id number] 10mg Take 1 [place] 10 mg 7-24 tablet by ity of tablet 00:00: mouth in [place] 00 the Medical morning. Branch rivastigmin 3-0 Yes [id number] 4.5mg Take 1 Univers e tartrate 7-24 capsule by ity of 4.5 mg 00:00: mouth [place] capsule 00 every Medical morning Branch and evening. memantine 2022-0 Yes [id number] 10mg Take 1 [place] 10 mg 7-24 tablet by ity of tablet 00:00: mouth in [place] 00 the Medical morning. Branch rivastigmin 3-0 Yes [id number] 4.5mg Take 1 Univers e tartrate 7-24 capsule by ity of 4.5 mg 00:00: mouth [place] capsule 00 every Medical morning Branch and evening. memantine 3-0 Yes [id number] 10mg Take 1 [place] 10 mg 7-24 tablet by ity of tablet 00:00: mouth in [place] 00 the Medical morning. Branch rivastigmin 3-0 Yes [id number] 4.5mg Take 1 Univers e tartrate 7-24 capsule by ity of 4.5 mg 00:00: mouth [place] capsule 00 every Medical morning Branch and evening. memantine 2023-0 Yes [id number] 10mg Take 1 [place] 10 mg 7-24 tablet by ity of tablet 00:00: mouth in [place] 00 the Medical morning. Branch rivastigmin 3-0 Yes [id number] 4.5mg Take 1 Univers e tartrate 7-24 capsule by ity of 4.5 mg 00:00: mouth [place] capsule 00 every Medical morning Branch and evening. memantine 2023-0 Yes [id number] 10mg Take 1 [place] 10 mg 7-24 tablet by ity of tablet 00:00: mouth in [place] 00 the Medical morning. Branch rivastigmin 2023-0 Yes [id number] 4.5mg Take 1 Univers e tartrate 7-24 capsule by ity of 4.5 mg 00:00: mouth [place] capsule 00 every Medical morning Branch and evening. memantine 2023-0 Yes [id number] 10mg Take 1 [place] 10 mg 7-24 tablet by ity of tablet 00:00: mouth in [place] 00 the Medical morning. Branch rivastigmin 3-0 Yes [id number] 4.5mg Take 1 Univers e tartrate 7-24 capsule by ity of 4.5 mg 00:00: mouth [place] capsule 00 every Medical morning Branch and evening. memantine 3-0 Yes [id number] 10mg Take 1 [place] 10 mg 7-24 tablet by ity of tablet 00:00: mouth in [place] 00 the Medical morning. Branch rivastigmin 3-0 Yes [id number] 4.5mg Take 1 Univers e tartrate 7-24 capsule by ity of 4.5 mg 00:00: mouth [place] capsule 00 every Medical morning Branch and evening. memantine 3-0 Yes [id number] 10mg Take 1 [place] 10 mg 7-24 tablet by ity of tablet 00:00: mouth in [place] 00 the Medical morning. Branch cyclobenzap 3-0 Yes [id number] 5mg Take 1 Univers rine 5 mg 7-13 tablet by ity o f tablet 00:00: mouth in [place] 00 the Medical morning Branch and 1 tablet in the evening. cyclobenzap 2023-0 Yes [id number] 5mg Take 1 Univers rine 5 mg 7-13 tablet by ity o f tablet 00:00: mouth in [place] 00 the Medical morning Branch and 1 tablet in the evening. amoxicillin 2023-0 Yes [id number] 1{tbl} Take 1 Univers -clavulanat 7-13 tablet by ity of e 00:00: mouth in [place] (AUGMENTIN) 00 the Medical 875-125 mg morning Branch per tablet and 1 tablet in the evening. cyclobenzap 2023-0 Yes [id number] 5mg Take 1 Univers rine 5 mg 7-13 tablet by ity o f tablet 00:00: mouth in [place] 00 the Medical morning Branch and 1 tablet in the evening. amoxicillin 2023-0 Yes [id number] 1{tbl} Take 1 Univers -clavulanat 7-13 tablet by ity of e 00:00: mouth in [place] (AUGMENTIN) 00 the Medical 875-125 mg morning Branch per tablet and 1 tablet in the evening. cyclobenzap 3-0 Yes [id number] 5mg Take 1 Univers rine 5 mg 7-13 tablet by ity o f tablet 00:00: mouth in [place] 00 the Medical morning Branch and 1 tablet in the evening. amoxicillin 3-0 Yes [id number] 1{tbl} Take 1 Univers -clavulanat 7-13 tablet by ity of e 00:00: mouth in [place] (AUGMENTIN) 00 the Medical 875-125 mg morning Branch per tablet and 1 tablet in the evening. cyclobenzap 2022-0 Yes [id number] 5mg Take 1 Univers rine 5 mg 7-13 tablet by ity o f tablet 00:00: mouth in [place] 00 the Medical morning Branch and 1 tablet in the evening. amoxicillin 2022-0 Yes [id number] 1{tbl} Take 1 Univers -clavulanat 7-13 tablet by ity of e 00:00: mouth in [place] (AUGMENTIN) 00 the Medical 875-125 mg morning Branch per tablet and 1 tablet in the evening. cyclobenzap 3-0 Yes [id number] 5mg Take 1 Univers rine 5 mg 7-13 tablet by ity o f tablet 00:00: mouth in [place] 00 the Medical morning Branch and 1 tablet in the evening. amoxicillin 3-0 Yes [id number] 1{tbl} Take 1 Univers -clavulanat 7-13 tablet by ity of e 00:00: mouth in [place] (AUGMENTIN) 00 the Medical 875-125 mg morning Branch per tablet and 1 tablet in the evening. cyclobenzap 2023-0 Yes [id number] 5mg Take 1 Univers rine 5 mg 7-13 tablet by ity o f tablet 00:00: mouth in [place] 00 the Medical morning Branch and 1 tablet in the evening. amoxicillin 2023-0 Yes [id number] 1{tbl} Take 1 Univers -clavulanat 7-13 tablet by ity of e 00:00: mouth in [place] (AUGMENTIN) 00 the Medical 875-125 mg morning Branch per tablet and 1 tablet in the evening. cyclobenzap 2023-0 Yes [id number] 5mg Take 1 Univers rine 5 mg 7-13 tablet by ity o f tablet 00:00: mouth in [place] 00 the Medical morning Branch and 1 tablet in the evening. cyclobenzap 2023-0 Yes [id number] 5mg Take 1 Univers rine 5 mg 7-13 tablet by ity o f tablet 00:00: mouth in [place] 00 the Medical morning Branch and 1 tablet in the evening. cyclobenzap 2023-0 Yes [id number] 5mg Take 1 Univers rine 5 mg 7-13 tablet by ity o f tablet 00:00: mouth in [place] 00 the Medical morning Branch and 1 tablet in the evening. cyclobenzap 2023-0 Yes [id number] 5mg Take 1 Univers rine 5 mg 7-13 tablet by ity o f tablet 00:00: mouth in [place] 00 the Medical morning Branch and 1 tablet in the evening. cyclobenzap 3-0 Yes [id number] 5mg Take 1 Univers rine 5 mg 7-13 tablet by ity o f tablet 00:00: mouth in [place] 00 the Medical morning Branch and 1 tablet in the evening. cyclobenzap 3-0 Yes [id number] 5mg Take 1 Univers rine 5 mg 7-13 tablet by ity o f tablet 00:00: mouth in [place] 00 the Medical morning Branch and 1 tablet in the evening. cyclobenzap 3-0 Yes [id number] 5mg Take 1 Univers rine 5 mg 7-13 tablet by ity o f tablet 00:00: mouth in [place] 00 the Medical morning Branch and 1 tablet in the evening. cyclobenzap 2023-0 Yes [id number] 5mg Take 1 Univers rine 5 mg 7-13 tablet by ity o f tablet 00:00: mouth in [place] 00 the Medical morning Branch and 1 tablet in the evening. cyclobenzap 2023-0 Yes [id number] 5mg Take 1 Univers rine 5 mg 7-13 tablet by ity o f tablet 00:00: mouth in [place] 00 the Medical morning Branch and 1 tablet in the evening. cyclobenzap 2023-0 Yes [id number] 5mg Take 1 Univers rine 5 mg 7-13 tablet by ity o f tablet 00:00: mouth in [place] 00 the Medical morning Branch and 1 tablet in the evening. cyclobenzap 2023-0 Yes [id number] 5mg Take 1 Univers rine 5 mg 7-13 tablet by ity o f tablet 00:00: mouth in [place] 00 the Medical morning Branch and 1 tablet in the evening. cyclobenzap 2023-0 Yes [id number] 5mg Take 1 Univers rine 5 mg 7-13 tablet by ity o f tablet 00:00: mouth in [place] 00 the Medical morning Branch and 1 tablet in the evening. cyclobenzap 2023-0 Yes [id number] 5mg Take 1 Univers rine 5 mg 7-13 tablet by ity o f tablet 00:00: mouth in [place] 00 the Medical morning Branch and 1 tablet in the evening. cyclobenzap 2023-0 Yes [id number] 5mg Take 1 Univers rine 5 mg 7-13 tablet by ity o f tablet 00:00: mouth in [place] 00 the Medical morning Branch and 1 tablet in the evening. cyclobenzap 3-0 Yes [id number] 5mg Take 1 [facility] r[facility] 5 mg 7-13 tablet by [facility] o f tablet 00:00: mouth in [place] 00 the Medical morning Branch and 1 tablet in the evening. cyclobenzap 3-0 Yes [id number] 5mg Take 1 [facility] rine 5 mg 7-13 tablet by it[facility] o f tablet 00:00: mouth in [place] 00 the Medical morning Branch and 1 tablet in the evening. cyclobenzap 3-0 Yes [id number] 5mg Take 1 [facility] rine 5 mg 7-13 tablet by ity o f tablet 00:00: mouth in [place] 00 the Medical morning Branch and 1 tablet in the evening. cyclobenzap 2023-0 Yes [id number] 5mg Take 1 [facility] rine 5 mg 7-13 tablet by ity o f tablet 00:00: mouth in [place] 00 the Medical morning Branch and 1 tablet in the evening. cyclobenzap 2023-0 Yes [id number] 5mg Take 1 [facility] rine 5 mg 7-13 tablet by ity o f tablet 00:00: mouth in [place] 00 the Medical morning Branch and 1 tablet in the evening. cyclobenzap 2023-0 Yes [id number] 5mg Take 1 [facility] rine 5 mg 7-13 tablet by ity o f tablet 00:00: mouth in [place] 00 the Medical morning Branch and 1 tablet in the evening. cyclobenzap 2023-0 Yes [id number] 5mg Take 1 [facility] rine 5 mg 7-13 tablet by ity o f tablet 00:00: mouth in [place] 00 the Medical morning Branch and 1 tablet in the evening. amoxicillin 2022- No [id number] 1{tbl} Take 1 [facility] -clavulanat 7-13 08-24 tablet by it y of e 00:00: 00:00 mouth in [place] (AUGMENTIN) 00 :00 the Medical 875-125 mg morning Branch per tablet and 1 tablet in the evening. amoxicillin 2022- No [id number] 1{tbl} Take 1 [facility] -clavulanat 7-13 08-24 tablet by it y of e 00:00: 00:00 mouth in [place] (AUGMENTIN) 00 :00 the Medical 875-125 mg morning Branch per tablet and 1 tablet in the evening. amoxicillin 2022- No [id number] 1{tbl} Take 1 [facility] -clavulanat 7-12 07-20 tablet by it y of e 00:00: 04:59 mouth in [place] (AUGMENTIN) 00 :00 the Medical 875-125 mg morning Branch per tablet and 1 tablet in the evening. Do all this for 7 days. amoxicillin 2022- No [id number] 1{tbl} Take 1 [facility] -clavulanat 7-12 07-20 tablet by it y of e 00:00: 04:59 mouth in [place] (AUGMENTIN) 00 :00 the Medical 875-125 mg morning Branch per tablet and 1 tablet in the evening. Do all this for 7 days. amoxicillin 2022- No [id number] 1{tbl} Take 1 [facility] -clavulanat 7-12 07-13 tablet by it y of e 00:00: 00:00 mouth in [place] (AUGMENTIN) 00 :00 the Medical 875-125 mg morning Branch per tablet and 1 tablet in the evening. Do all this for 7 days. amoxicillin 2022- No [id number] 1{tbl} Take 1 [facility] -clavulanat 7-12 07-13 tablet by it y of e 00:00: 00:00 mouth in [place] (AUGMENTIN) 00 :00 the Medical 875-125 mg morning Branch per tablet and 1 tablet in the evening. Do all this for 7 days. amoxicillin 2022- No [id number] 1{tbl} Take 1 [facility] -clavulanat 12 07-13 tablet by it y of e 00:00: 00:00 mouth in [place] (AUGMENTIN) 00 :00 the Medical 875-125 mg morning Branch per tablet and 1 tablet in the evening. Do all this for 7 days. mirtazapine 2022- No 15mg Take 15 mg [facility] 15 mg 7-06 by mouth ity of tablet 07:41: 00:00 at [place] 07 :00 bedtime. Medical Branch mirtazapine Yes [id number] 15mg Take 1 [facility] 15 mg 7-06 tablet by ity of tablet 00:00: mouth at [place] [address] bedtime. Medical Branch pantoprazol Yes [id number] 40mg Take 1 [facility] e 40 mg EC 7- tablet by ity of tablet 00:00: mouth in [place] 00 the Medical morning. Branch amitriptyli Yes [id number] 25mg Take 1 [facility] ne 25 mg 7- tablet by ity of tablet 00:00: mouth at [place] [address] bedtime. Medical Branch fenofibrate 0 Yes [id number] 54mg Take 1 [facility] 54 mg 7-06 tablet by ity of tablet 00:00: mouth in [place] 00 the Medical morning. Branch glipiZIDE Yes [id number] 10mg Take 1 [facility] [place] XL 10 mg 24 7-06 tablet by ity of hr tablet 00:00: mouth [place] 00 daily with Medical breakfast. Branch SITagliptin 0 Yes [id number] 2{tbl} Take 2 [facility] phos-metfor 7-06 tablets by it y of min 00:00: mouth in [place] (JUNUMET 00 the Medical XR) morning. Branch 50-1,000 mg per tablet Insulin Yes [id number] 20U inject 20 [facility] nivers Glargine 7-06 Units ity of (LANTUS 00:00: under the [place] [facility] 00 skin in Medical U-100 the Branch INSULIN) morning. 100 unit/mL Decrease (3 mL) the long injection acting insulin to 20 units once daily to avoid any low BGs. If fasting BG drops < 90, he will continue decrease the insulin dose. lovastatin 2023-0 Yes [id number] TAKE 1 [facility] nivers 40 mg 7-06 TABLET BY ity of tablet 00:00: MOUTH WITH [place] 00 EVENING Medical MEAL Branch mirtazapine 0 Yes [id number] 15mg Take 1 [facility] 15 mg 7-06 tablet by ity of tablet 00:00: mouth at [place] [address] bedtime. Medical Branch pantoprazol 0 Yes [id number] 40mg Take 1 [facility] e 40 mg EC 7-06 tablet by ity of tablet 00:00: mouth in [place] 00 the Medical morning. Branch rivastigmin 0 Yes [id number] 3mg Take 1 [facility] e tartrate 7-06 capsule by ity of 3 mg 00:00: mouth [place] capsule 00 every Medical morning Branch and evening. amitriptyli Yes [id number] 25mg Take 1 [facility] ne 25 mg 7-06 tablet by ity of tablet 00:00: mouth at [place] [address] bedtime. Medical Branch fenofibrate 0 Yes [id number] 54mg Take 1 [facility] 54 mg 7-06 tablet by ity of tablet 00:00: mouth in [place] 00 the Medical morning. Branch glipiZIDE Yes [id number] 10mg Take 1 [facility] [place] XL 10 mg 24 7-06 tablet by ity of hr tablet 00:00: mouth [place] 00 daily with Medical breakfast. Branch SITagliptin Yes [id number] 2{tbl} Take 2 [facility] phos-metfor 7-06 tablets by it y of min 00:00: mouth in [place] (JUNUME 00 the Medical XR) morning. Branch 50-1,000 mg per tablet Insulin Yes [id number] 20U inject 20 U nivers Glargine 7-06 Units ity of (LANTUS 00:00: under the [place] [facility] 00 skin in Medical U-100 the Branch INSULIN) morning. 100 unit/mL Decrease (3 mL) the long injection acting insulin to 20 units once daily to avoid any low BGs. If fasting BG drops < 90, he will continue decrease the insulin dose. lovastatin 0 Yes [id number] TAKE 1 [facility] nivers 40 mg 7-06 TABLET BY ity of tablet 00:00: MOUTH WITH [place] 00 EVENING Medical MEAL Branch mirtazapine 0 Yes [id number] 15mg Take 1 [facility] 15 mg 7-06 tablet by ity of tablet 00:00: mouth at [place] 00 bedtime. Medical Branch pantoprazol 0 Yes [id number] 40mg Take 1 [facility] e 40 mg EC 7-06 tablet by ity of tablet 00:00: mouth in [place] 00 the Medical morning. Branch rivastigmin 0 Yes [id number] 3mg Take 1 [facility] e tartrate 7-06 capsule by ity of 3 mg 00:00: mouth [place] capsule 00 every Medical morning Branch and evening. amitriptyli 0 Yes [id number] 25mg Take 1 [facility] ne 25 mg 7-06 tablet by ity of tablet 00:00: mouth at [place] 00 bedtime. Medical Branch fenofibrate 0 Yes [id number] 54mg Take 1 [facility] 54 mg 7-06 tablet by ity of tablet 00:00: mouth in [place] 00 the Medical morning. Branch glipiZIDE 0 Yes [id number] 10mg Take 1 [facility] [place] XL 10 mg 24 7-06 tablet by ity of hr tablet 00:00: mouth [place] 00 daily with Medical breakfast. Branch SITagliptin Yes [id number] 2{tbl} Take 2 [facility] phos-metfor 7-06 tablets by it y of min 00:00: mouth in [place] ( the Medical XR) morning. Branch 50-1,000 mg per tablet Insulin Yes [id number] 20U inject 20 U nivers Glargine 7-06 Units ity of (LANTUS 00:00: under the [place] [facility] 00 skin in Medical U-100 the Branch INSULIN) morning. 100 unit/mL Decrease (3 mL) the long injection acting insulin to 20 units once daily to avoid any low BGs. If fasting BG drops < 90, he will continue decrease the insulin dose. lovastatin 0 Yes [id number] TAKE 1 [facility] nivers 40 mg 7-06 TABLET BY ity of tablet 00:00: MOUTH WITH [place] 00 EVENING Medical MEAL Branch mirtazapine 0 Yes [id number] 15mg Take 1 [facility] 15 mg 7-06 tablet by ity of tablet 00:00: mouth at [place] 00 bedtime. Medical Branch pantoprazol 0 Yes [id number] 40mg Take 1 [facility] e 40 mg EC 7-06 tablet by ity of tablet 00:00: mouth in [place] 00 the Medical morning. Branch rivastigmin 2022-0 Yes [id number] 3mg Take 1 [facility] e tartrate 7-06 capsule by ity of 3 mg 00:00: mouth [place] capsule 00 every Medical morning Branch and evening. amitriptyli 2022-0 Yes [id number] 25mg Take 1 [facility] ne 25 mg 7-06 tablet by ity of tablet 00:00: mouth at [place] [address] bedtime. Medical Branch fenofibrate 2022-0 Yes [id number] 54mg Take 1 [facility] 54 mg 7-06 tablet by ity of tablet 00:00: mouth in [place] 00 the Medical morning. Branch glipiZIDE 2022-0 Yes [id number] 10mg Take 1 [facility] [place] XL 10 mg 24 7-06 tablet by ity of hr tablet 00:00: mouth [place] 00 daily with Medical breakfast. Branch SITagliptin 2022-0 Yes [id number] 2{tbl} Take 2 [facility] phos-metfor 7-06 tablets by it y of min 00:00: mouth in [place] ( the Medical XR) morning. Branch 50-1,000 mg per tablet Insulin Yes [id number] 20U inject 20 U nivers Glargine 7-06 Units ity of (LANTUS 00:00: under the [place] [facility] 00 skin in [facility] U-100 the [place] INSULIN) morning. 100 unit/mL Decrease (3 mL) the long injection acting insulin to 20 units once daily to avoid any low BGs. If fasting BG drops < 90, he will continue decrease the insulin dose. lovastatin 0 Yes [id number] TAKE 1 [facility] nivers 40 mg 7-06 TABLET BY ity of tablet 00:00: MOUTH WITH [place] 00 EVENING Medical MEAL Branch mirtazapine 2022-0 Yes [id number] 15mg Take 1 [facility] 15 mg 7-06 tablet by ity of tablet 00:00: mouth at [place] [address] bedtime. Medical Branch pantoprazol 2022-0 Yes [id number] 40mg Take 1 [facility] e 40 mg EC 7-06 tablet by ity of tablet 00:00: mouth in [place] 00 the Medical morning. Branch rivastigmin 2022-0 Yes [id number] 3mg Take 1 [facility] e tartrate 7-06 capsule by ity of 3 mg 00:00: mouth [place] capsule 00 every Medical morning Branch and evening. amitriptyli 2022-0 Yes [id number] 25mg Take 1 [facility] ne 25 mg 7-06 tablet by ity of tablet 00:00: mouth at [place] 00 bedtime. Medical Branch fenofibrate 2022-0 Yes [id number] 54mg Take 1 [facility] 54 mg 7-06 tablet by ity of tablet 00:00: mouth in [place] 00 the Medical morning. Branch glipiZIDE 2022-0 Yes [id number] 10mg Take 1 [facility] [place] XL 10 mg 24 7-06 tablet by ity of hr tablet 00:00: mouth [place] 00 daily with Medical breakfast. Branch SITagliptin 2022-0 Yes [id number] 2{tbl} Take 2 [facility] phos-metfor 7-06 tablets by it y of min 00:00: mouth in [place] ( the Medical XR) morning. Branch 50-1,000 mg per tablet Insulin 0 Yes [id number] 20U inject 20 U nivers Glargine 7-06 Units ity of (LANTUS 00:00: under the [place] [facility] 00 skin in Medical U-100 the Branch INSULIN) morning. 100 unit/mL Decrease (3 mL) the long injection acting insulin to 20 units once daily to avoid any low BGs. If fasting BG drops < 90, he will continue decrease the insulin dose. lovastatin 0 Yes [id number] TAKE 1 [facility] nivers 40 mg 7-06 TABLET BY ity of tablet 00:00: MOUTH WITH [place] 00 EVENING Medical MEAL Branch mirtazapine 2022-0 Yes [id number] 15mg Take 1 [facility] 15 mg 7-06 tablet by ity of tablet 00:00: mouth at [place] [address] bedtime. Medical Branch pantoprazol 2022-0 Yes [id number] 40mg Take 1 [facility] e 40 mg EC 7-06 tablet by ity of tablet 00:00: mouth in [place] 00 the Medical morning. Branch rivastigmin 2022-0 Yes [id number] 3mg Take 1 [facility] e tartrate 7-06 capsule by ity of 3 mg 00:00: mouth [place] capsule 00 every Medical morning Branch and evening. amitriptyli 2022-0 Yes [id number] 25mg Take 1 [facility] ne 25 mg 7-06 tablet by ity of tablet 00:00: mouth at [place] 00 bedtime. Medical Branch fenofibrate 2022-0 Yes [id number] 54mg Take 1 [facility] 54 mg 7-06 tablet by ity of tablet 00:00: mouth in [place] 00 the Medical morning. Branch glipiZIDE 2022-0 Yes [id number] 10mg Take 1 [facility] [place] XL 10 mg 24 7-06 tablet by ity of hr tablet 00:00: mouth [place] 00 daily with Medical breakfast. Branch SITagliptin 2022-0 Yes [id number] 2{tbl} Take 2 [facility] phos-metfor 7-06 tablets by it y of min 00:00: mouth in [place] (JUNUMET 00 the Medical XR) morning. Branch 50-1,000 mg per tablet Insulin Yes [id number] 20U inject 20 U nivers Glargine 7-06 Units ity of (LANTUS 00:00: under the [place] [facility] 00 skin in Medical U-100 the [place] INSULIN) morning. 100 unit/mL Decrease (3 mL) the long injection acting insulin to 20 units once daily to avoid any low BGs. If fasting BG drops < 90, he will continue decrease the insulin dose. lovastatin Yes [id number] TAKE 1 [facility] nivers 40 mg 7-06 TABLET BY ity of tablet 00:00: MOUTH WITH [place] 00 EVENING Medical MEAL Branch mirtazapine 2022-0 Yes [id number] 15mg Take 1 [facility] 15 mg 7-06 tablet by ity of tablet 00:00: mouth at [place] 00 bedtime. Medical Branch pantoprazol 2022-0 Yes [id number] 40mg Take 1 [facility] e 40 mg EC 7-06 tablet by ity of tablet 00:00: mouth in [place] 00 the Medical morning. Branch rivastigmin 2022-0 Yes [id number] 3mg Take 1 [facility] e tartrate 7-06 capsule by ity of 3 mg 00:00: mouth [place] capsule 00 every Medical morning Branch and evening. amitriptyli 2022-0 Yes [id number] 25mg Take 1 [facility] ne 25 mg 7-06 tablet by ity of tablet 00:00: mouth at [place] 00 bedtime. Medical Branch fenofibrate 2022-0 Yes [id number] 54mg Take 1 [facility] 54 mg 7-06 tablet by ity of tablet 00:00: mouth in [place] 00 the Medical morning. Branch glipiZIDE 2022-0 Yes [id number] 10mg Take 1 [facility] [place] XL 10 mg 24 7-06 tablet by ity of hr tablet 00:00: mouth [place] 00 daily with Medical breakfast. Branch SITagliptin 2022-0 Yes [id number] 2{tbl} Take 2 [facility] phos-metfor 7-06 tablets by it y of min 00:00: mouth in [place] ( the Medical XR) morning. Branch 50-1,000 mg per tablet Insulin 2022-0 Yes [id number] 20U inject 20 U nivers Glargine 7-06 Units ity of (LANTUS 00:00: under the [place] [facility] 00 skin in Medical U-100 the Branch INSULIN) morning. 100 unit/mL Decrease (3 mL) the long injection acting insulin to 20 units once daily to avoid any low BGs. If fasting BG drops < 90, he will continue decrease the insulin dose. lovastatin 0 Yes [id number] TAKE 1 U nivers 40 mg 7-06 TABLET BY ity of tablet 00:00: MOUTH WITH [place] 00 EVENING Medical MEAL Branch mirtazapine 2022-0 Yes [id number] 15mg Take 1 [facility] 15 mg 7-06 tablet by ity of tablet 00:00: mouth at [place] 00 bedtime. Medical Branch pantoprazol 2022-0 Yes [id number] 40mg Take 1 [facility] e 40 mg EC 7-06 tablet by ity of tablet 00:00: mouth in [place] 00 the Medical morning. Branch rivastigmin 2022-0 Yes [id number] 3mg Take 1 [facility] e tartrate 7-06 capsule by ity of 3 mg 00:00: mouth [place] capsule 00 every Medical morning Branch and evening. amitriptyli 2022-0 Yes [id number] 25mg Take 1 [facility] ne 25 mg 7-06 tablet by ity of tablet 00:00: mouth at [place] 00 bedtime. Medical Branch fenofibrate 2022-0 Yes [id number] 54mg Take 1 [facility] 54 mg 7-06 tablet by ity of tablet 00:00: mouth in [place] 00 the Medical morning. Branch glipiZIDE 2022-0 Yes [id number] 10mg Take 1 [facility] [place] XL 10 mg 24 7-06 tablet by ity of hr tablet 00:00: mouth [place] 00 daily with Medical breakfast. Branch SITagliptin 2022-0 Yes [id number] 2{tbl} Take 2 [facility] phos-metfor 7-06 tablets by it y of min 00:00: mouth in [place] ( the Medical XR) morning. Branch 50-1,000 mg per tablet Insulin Yes [id number] 20U inject 20 U nivers Glargine 7-06 Units ity of (LANTUS 00:00: under the [place] [facility] 00 skin in Medical U-100 the Branch INSULIN) morning. 100 unit/mL Decrease (3 mL) the long injection acting insulin to 20 units once daily to avoid any low BGs. If fasting BG drops < 90, he will continue decrease the insulin dose. lovastatin Yes [id number] TAKE 1 U nivers 40 mg 7-06 TABLET BY ity of tablet 00:00: MOUTH WITH [place] 00 EVENING Medical MEAL Branch mirtazapine 2022-0 Yes [id number] 15mg Take 1 [facility] 15 mg 7-06 tablet by ity of tablet 00:00: mouth at [place] [address] bedtime. Medical Branch pantoprazol 2022-0 Yes [id number] 40mg Take 1 [facility] e 40 mg EC 7-06 tablet by ity of tablet 00:00: mouth in [place] 00 the Medical morning. Branch rivastigmin 2022-0 Yes [id number] 3mg Take 1 [facility] e tartrate 7-06 capsule by ity of 3 mg 00:00: mouth [place] capsule 00 every Medical morning Branch and evening. amitriptyli 2022-0 Yes [id number] 25mg Take 1 [facility] ne 25 mg 7-06 tablet by ity of tablet 00:00: mouth at [place] 00 bedtime. Medical Branch fenofibrate 2022-0 Yes [id number] 54mg Take 1 [facility] 54 mg 7-06 tablet by ity of tablet 00:00: mouth in [place] 00 the Medical morning. Branch glipiZIDE 2022-0 Yes [id number] 10mg Take 1 [facility] [place] XL 10 mg 24 7-06 tablet by ity of hr tablet 00:00: mouth [place] 00 daily with Medical breakfast. Branch SITagliptin 2022-0 Yes [id number] 2{tbl} Take 2 [facility] phos-metfor 7-06 tablets by it y of min 00:00: mouth in [place] ( the Medical XR) morning. Branch 50-1,000 mg per tablet Insulin 2023-0 Yes [id number] 20U inject 20 U nivers Glargine 7-06 Units ity of (LANTUS 00:00: under the [facility] 00 skin in Medical U-100 the Branch INSULIN) morning. 100 unit/mL Decrease (3 mL) the long injection acting insulin to 20 units once daily to avoid any low BGs. If fasting BG drops < 90, he will continue decrease the insulin dose. lovastatin 0 Yes [id number] TAKE 1 U nivers 40 mg 7-06 TABLET BY ity of tablet 00:00: MOUTH WITH [place] 00 EVENING Medical MEAL Branch mirtazapine 0 Yes [id number] 15mg Take 1 [facility] 15 mg 7-06 tablet by ity of tablet 00:00: mouth at [place] [address] bedtime. Medical Branch pantoprazol 2022-0 Yes [id number] 40mg Take 1 [facility] e 40 mg EC 7-06 tablet by ity of tablet 00:00: mouth in [place] 00 the Medical morning. Branch rivastigmin 2022-0 Yes [id number] 3mg Take 1 [facility] e tartrate 7-06 capsule by ity of 3 mg 00:00: mouth [place] capsule 00 every Medical morning Branch and evening. amitriptyli 0 Yes [id number] 25mg Take 1 [facility] ne 25 mg 7-06 tablet by ity of tablet 00:00: mouth at [place] [address] bedtime. Medical Branch fenofibrate 2022-0 Yes [id number] 54mg Take 1 [facility] 54 mg 7-06 tablet by ity of tablet 00:00: mouth in [place] 00 the Medical morning. Branch glipiZIDE 2022-0 Yes [id number] 10mg Take 1 [facility] [place] XL 10 mg 24 7-06 tablet by ity of hr tablet 00:00: mouth [place] 00 daily with Medical breakfast. Branch SITagliptin 2022-0 Yes [id number] 2{tbl} Take 2 [facility] phos-metfor 7-06 tablets by it y of min 00:00: mouth in [place] ( the Medical XR) morning. Branch 50-1,000 mg per tablet Insulin 0 Yes [id number] 20U inject 20 U nivers Glargine 7-06 Units ity of (LANTUS 00:00: under the [facility] 00 skin in Medical U-100 the Branch INSULIN) morning. 100 unit/mL Decrease (3 mL) the long injection acting insulin to 20 units once daily to avoid any low BGs. If fasting BG drops < 90, he will continue decrease the insulin dose. lovastatin Yes [id number] TAKE 1 U nivers 40 mg 7-06 TABLET BY ity of tablet 00:00: MOUTH WITH [place] 00 EVENING Medical MEAL Branch mirtazapine 0 Yes [id number] 15mg Take 1 [facility] 15 mg 7-06 tablet by ity of tablet 00:00: mouth at [place] [address] bedtime. Medical Branch pantoprazol Yes [id number] 40mg Take 1 [facility] e 40 mg EC 7-06 tablet by ity of tablet 00:00: mouth in [place] 00 the Medical morning. Branch rivastigmin Yes [id number] 3mg Take 1 [facility] e tartrate 7-06 capsule by ity of 3 mg 00:00: mouth [place] capsule 00 every Medical morning Branch and evening. amitriptyli Yes [id number] 25mg Take 1 [facility] ne 25 mg 7-06 tablet by ity of tablet 00:00: mouth at [place] 00 bedtime. Medical Branch fenofibrate Yes [id number] 54mg Take 1 [facility] 54 mg 7-06 tablet by ity of tablet 00:00: mouth in [place] 00 the Medical morning. Branch glipiZIDE Yes [id number] 10mg Take 1 [facility] [place] XL 10 mg 24 7-06 tablet by ity of hr tablet 00:00: mouth [place] 00 daily with Medical breakfast. Branch SITagliptin Yes [id number] 2{tbl} Take 2 [facility] phos-metfor 7-06 tablets by it y of min 00:00: mouth in [place] ( the Medical XR) morning. Branch 50-1,000 mg per tablet Insulin Yes [id number] 20U inject 20 U nivers Glargine 7-06 Units ity of (LANTUS 00:00: under the [place] [facility] 00 skin in Medical U-100 the Branch INSULIN) morning. 100 unit/mL Decrease (3 mL) the long injection acting insulin to 20 units once daily to avoid any low BGs. If fasting BG drops < 90, he will continue decrease the insulin dose. lovastatin 2023-0 Yes [id number] TAKE 1 U nivers 40 mg 7-06 TABLET BY ity of tablet 00:00: MOUTH WITH [place] 00 EVENING Medical MEAL Branch mirtazapine 2022-0 Yes [id number] 15mg Take 1 [facility] 15 mg 7-06 tablet by ity of tablet 00:00: mouth at [place] [address] bedtime. Medical Branch pantoprazol 2022-0 Yes [id number] 40mg Take 1 [facility] e 40 mg EC 7-06 tablet by ity of tablet 00:00: mouth in [place] 00 the Medical morning. Branch amitriptyli 2022-0 Yes [id number] 25mg Take 1 [facility] ne 25 mg 7-06 tablet by ity of tablet 00:00: mouth at [place] [address] bedtime. Medical Branch fenofibrate 2022-0 Yes [id number] 54mg Take 1 [facility] 54 mg 7-06 tablet by ity of tablet 00:00: mouth in [place] the Medical morning. Branch glipiZIDE 0 Yes [id number] 10mg Take 1 [facility] [place] XL 10 mg 24 7-06 tablet by ity of hr tablet 00:00: mouth [place] 00 daily with Medical breakfast. Branch SITagliptin 0 Yes [id number] 2{tbl} Take 2 [facility] phos-metfor 7-06 tablets by it y of min 00:00: mouth in [place] ( the Medical XR) morning. Branch 50-1,000 mg per tablet Insulin Yes [id number] 20U inject 20 U nivers Glargine 7-06 Units ity of (LANTUS 00:00: under the [place] [facility] 00 skin in Medical U-100 the Branch INSULIN) morning. 100 unit/mL Decrease (3 mL) the long injection acting insulin to 20 units once daily to avoid any low BGs. If fasting BG drops < 90, he will continue decrease the insulin dose. lovastatin 0 Yes [id number] TAKE 1 U nivers 40 mg 7-06 TABLET BY ity of tablet 00:00: MOUTH WITH [place] 00 EVENING Medical MEAL Branch mirtazapine 0 Yes [id number] 15mg Take 1 [facility] 15 mg 7-06 tablet by ity of tablet 00:00: mouth at [place] [address] bedtime. Medical Branch pantoprazol 2022-0 Yes [id number] 40mg Take 1 [facility] e 40 mg EC 7-06 tablet by ity of tablet 00:00: mouth in [place] 00 the Medical morning. Branch amitriptyli 2022-0 Yes [id number] 25mg Take 1 [facility] ne 25 mg 7-06 tablet by ity of tablet 00:00: mouth at [place] [address] bedtime. Medical Branch fenofibrate 2022-0 Yes [id number] 54mg Take 1 [facility] 54 mg 7-06 tablet by ity of tablet 00:00: mouth in [place] 00 the Medical morning. Branch glipiZIDE 2022-0 Yes [id number] 10mg Take 1 [facility] [place] XL 10 mg 24 7-06 tablet by ity of hr tablet 00:00: mouth [place] 00 daily with Medical breakfast. Branch SITagliptin 2022-0 Yes [id number] 2{tbl} Take 2 [facility] phos-metfor 7-06 tablets by it y of min 00:00: mouth in [place] ( the Medical XR) morning. Branch 50-1,000 mg per tablet Insulin Yes [id number] 20U inject 20 U nivers Glargine 7-06 Units ity of (LANTUS 00:00: under the [place] [facility] 00 skin in [facility] U-100 the [place] INSULIN) morning. 100 unit/mL Decrease (3 mL) the long injection acting insulin to 20 units once daily to avoid any low BGs. If fasting BG drops < 90, he will continue decrease the insulin dose. lovastatin 0 Yes [id number] TAKE 1 U nivers 40 mg 7-06 TABLET BY ity of tablet 00:00: MOUTH WITH [place] 00 EVENING Medical MEAL Branch mirtazapine 2022-0 Yes [id number] 15mg Take 1 [facility] 15 mg 7-06 tablet by ity of tablet 00:00: mouth at [place] [address] bedtime. Medical Branch pantoprazol 2022-0 Yes [id number] 40mg Take 1 [facility] e 40 mg EC 7-06 tablet by ity of tablet 00:00: mouth in [place] 00 the Medical morning. Branch amitriptyli 2022-0 Yes [id number] 25mg Take 1 [facility] ne 25 mg 7-06 tablet by ity of tablet 00:00: mouth at [place] [address] bedtime. Medical Branch fenofibrate 2022-0 Yes [id number] 54mg Take 1 [facility] 54 mg 7-06 tablet by ity of tablet 00:00: mouth in [place] 00 the Medical morning. Branch glipiZIDE 0 Yes [id number] 10mg Take 1 [facility] [place] XL 10 mg 24 7-06 tablet by ity of hr tablet 00:00: mouth 00 daily with Medical breakfast. Branch SITagliptin Yes [id number] 2{tbl} Take 2 [facility] phos-metfor 7-06 tablets by it y of min 00:00: mouth in [place] ( the Medical XR) morning. Branch 50-1,000 mg per tablet Insulin Yes [id number] 20U inject 20 U nivers Glargine 7-06 Units ity of (LANTUS 00:00: under the [place] [facility] 00 skin in Medical U-100 the Branch INSULIN) morning. 100 unit/mL Decrease (3 mL) the long injection acting insulin to 20 units once daily to avoid any low BGs. If fasting BG drops < 90, he will continue decrease the insulin dose. lovastatin Yes [id number] TAKE 1 U nivers 40 mg 7-06 TABLET BY ity of tablet 00:00: MOUTH WITH [place] 00 EVENING Medical MEAL Branch mirtazapine 0 Yes [id number] 15mg Take 1 [facility] 15 mg 7-06 tablet by ity of tablet 00:00: mouth at [place] [address] bedtime. Medical Branch pantoprazol 2022-0 Yes [id number] 40mg Take 1 [facility] 40 mg EC 7-06 tablet by [facility] of tablet 00:00: mouth in [place] 00 the Medical morning. Branch amitriptyli 0 Yes [id number] 25mg Take 1 [facility] ne 25 mg 7-06 tablet by ity of tablet 00:00: mouth at [place] [address] bedtime. Medical Branch fenofibrate 2022-0 Yes [id number] 54mg Take 1 [facility] 54 mg 7-06 tablet by [facility] of tablet 00:00: mouth in [place] 00 the Medical morning. Branch glipiZIDE 2022-0 Yes [id number] 10mg Take 1 [facility] [place] XL 10 mg 24 7-06 tablet by it[facility] of hr tablet 00:00: mouth 00 daily with Medical breakfast. Branch SITagliptin 0 Yes [id number] 2{tbl} Take 2 [facility] phos-metfor 7-06 tablets by it y of min 00:00: mouth in [place] ( the Medical XR) morning. Branch 50-1,000 mg per tablet Insulin Yes [id number] 20U inject 20 U nivers Glargine 7-06 Units ity of ([place] 00:00: under the [place] [facility] 00 skin in Medical U-100 the Branch INSULIN) morning. 100 unit/mL Decrease (3 mL) the long injection acting insulin to 20 units once daily to avoid any low BGs. If fasting BG drops < 90, he will continue decrease the insulin dose. lovastatin 0 Yes [id number] TAKE 1 [facility] nivers 40 mg 7-06 TABLET BY ity of tablet 00:00: MOUTH WITH [place] 00 EVENING Medical MEAL Branch mirtazapine 0 Yes [id number] 15mg Take 1 [facility] 15 mg 7-06 tablet by ity of tablet 00:00: mouth at [place] [address] bedtime. Medical Branch pantoprazol 0 Yes [id number] 40mg Take 1 [facility] e 40 mg EC 7-06 tablet by ity of tablet 00:00: mouth in [place] the morning. Branch amitriptyli 0 Yes [id number] 25mg Take 1 [facility] ne 25 mg 7-06 tablet by ity of tablet 00:00: mouth at [place] [address] bedtime. Medical Branch fenofibrate 0 Yes [id number] 54mg Take 1 [facility] 54 mg 7-06 tablet by ity of tablet 00:00: mouth in [place] the morning. Branch glipiZIDE 0 Yes [id number] 10mg Take 1 [facility] [place] XL 10 mg 24 7-06 tablet by ity of hr tablet 00:00: mouth [place] 00 daily with Medical breakfast. Branch SITagliptin 0 Yes [id number] 2{tbl} Take 2 [facility] phos-metfor 7-06 tablets by it y of min 00:00: mouth in [place] ( the Medical XR) morning. Branch 50-1,000 mg per tablet Insulin Yes [id number] 20U inject 20 U nivers Glargine 7-06 Units ity of ([place] 00:00: under the [facility] 00 skin in Medical U-100 the Branch INSULIN) morning. 100 unit/mL Decrease (3 mL) the long injection acting insulin to 20 units once daily to avoid any low BGs. If fasting BG drops < 90, he will continue decrease the insulin dose. lovastatin 2022-0 Yes [id number] TAKE 1 [facility] nivers 40 mg 7-06 TABLET BY ity of tablet 00:00: MOUTH WITH [place] 00 EVENING Medical MEAL Branch mirtazapine 2022-0 Yes [id number] 15mg Take 1 [facility] 15 mg 7-06 tablet by ity of tablet 00:00: mouth at [place] [address] bedtime. Medical Branch pantoprazol 2022-0 Yes [id number] 40mg Take 1 [facility] e 40 mg EC 7-06 tablet by ity of tablet 00:00: mouth in [place] 00 the Medical morning. Branch amitriptyli 2022-0 Yes [id number] 25mg Take 1 [facility] ne 25 mg 7-06 tablet by ity of tablet 00:00: mouth at [place] [address] bedtime. Medical Branch fenofibrate 2022-0 Yes [id number] 54mg Take 1 [facility] 54 mg 7-06 tablet by ity of tablet 00:00: mouth in [place] 00 the Medical morning. Branch glipiZIDE 0 Yes [id number] 10mg Take 1 [facility] [place] XL 10 mg 24 7-06 tablet by ity of hr tablet 00:00: mouth [place] 00 daily with Medical breakfast. Branch SITagliptin 2022-0 Yes [id number] 2{tbl} Take 2 [facility] phos-metfor 7-06 tablets by it y of min 00:00: mouth in [place] ( the Medical XR) morning. Branch 50-1,000 mg per tablet Insulin 0 Yes [id number] 20U inject 20 U nivers Glargine 7-06 Units ity of ([place] 00:00: under the [place] [facility] 00 skin in Medical U-100 the Branch INSULIN) morning. 100 unit/mL Decrease (3 mL) the long injection acting insulin to 20 units once daily to avoid any low BGs. If fasting BG drops < 90, he will continue decrease the insulin dose. lovastatin 2022-0 Yes [id number] TAKE 1 [facility] nivers 40 mg 7-06 TABLET BY ity of tablet 00:00: MOUTH WITH [place] 00 EVENING Medical MEAL Branch mirtazapine 2022-0 Yes [id number] 15mg Take 1 [facility] 15 mg 7-06 tablet by ity of tablet 00:00: mouth at [place] 00 bedtime. Medical Branch pantoprazol 0 Yes [id number] 40mg Take 1 [facility] e 40 mg EC 7-06 tablet by ity of tablet 00:00: mouth in [place] 00 the Medical morning. Branch amitriptyli 0 Yes [id number] 25mg Take 1 [facility] ne 25 mg 7-06 tablet by ity of tablet 00:00: mouth at [place] [address] bedtime. Medical Branch fenofibrate 2022-0 Yes [id number] 54mg Take 1 [facility] 54 mg 7-06 tablet by ity of tablet 00:00: mouth in [place] 00 the Medical morning. Branch glipiZIDE 0 Yes [id number] 10mg Take 1 [facility] [place] XL 10 mg 24 7-06 tablet by ity of hr tablet 00:00: mouth [place] 00 daily with Medical breakfast. Branch SITagliptin Yes [id number] 2{tbl} Take 2 [facility] phos-metfor 7-06 tablets by it y of min 00:00: mouth in [place] ( the Medical XR) morning. Branch 50-1,000 mg per tablet Insulin Yes [id number] 20U inject 20 U nivers Glargine 7-06 Units ity of ([place] 00:00: under the [place] [facility] 00 skin in Medical U-100 the [place] INSULIN) morning. 100 unit/mL Decrease (3 mL) the long injection acting insulin to 20 units once daily to avoid any low BGs. If fasting BG drops < 90, he will continue decrease the insulin dose. lovastatin Yes [id number] TAKE 1 [facility] nivers 40 mg 7-06 TABLET BY ity of tablet 00:00: MOUTH WITH [place] 00 EVENING Medical MEAL Branch mirtazapine 0 Yes [id number] 15mg Take 1 [facility] 15 mg 7-06 tablet by ity of tablet 00:00: mouth at [place] [address] bedtime. Medical Branch pantoprazol 2022-0 Yes [id number] 40mg Take 1 [facility] e 40 mg EC 7-06 tablet by ity of tablet 00:00: mouth in [place] 00 the Medical morning. Branch amitriptyli 0 Yes [id number] 25mg Take 1 [facility] ne 25 mg 7-06 tablet by ity of tablet 00:00: mouth at [place] [address] bedtime. Medical Branch fenofibrate 2022-0 Yes [id number] 54mg Take 1 [facility] 54 mg 7-06 tablet by ity of tablet 00:00: mouth in [place] 00 the Medical morning. Branch glipiZIDE Yes [id number] 10mg Take 1 [facility] [place] XL 10 mg 24 7-06 tablet by ity of hr tablet 00:00: mouth [place] 00 daily with Medical breakfast. Branch SITagliptin Yes [id number] 2{tbl} Take 2 [facility] phos-metfor 7-06 tablets by it y of min 00:00: mouth in [place] ([place] 00 the Medical XR) morning. Branch 50-1,000 mg per tablet Insulin Yes [id number] 20U inject 20 U nivers Glargine 7-06 Units ity of ([place] 00:00: under the [place] [facility] 00 skin in Medical U-100 the Branch INSULIN) morning. 100 unit/mL Decrease (3 mL) the long injection acting insulin to 20 units once daily to avoid any low BGs. If fasting BG drops < 90, he will continue decrease the insulin dose. lovastatin Yes [id number] TAKE 1 [facility] nivers 40 mg 7-06 TABLET BY ity of tablet 00:00: MOUTH WITH [place] 00 EVENING Medical MEAL Branch mirtazapine 0 Yes [id number] 15mg Take 1 [facility] 15 mg 7-06 tablet by ity of tablet 00:00: mouth at [place] [address] bedtime. Medical Branch pantoprazol Yes [id number] 40mg Take 1 [facility] e 40 mg EC 7-06 tablet by ity of tablet 00:00: mouth in [place] 00 the Medical morning. Branch amitriptyli 0 Yes [id number] 25mg Take 1 [facility] ne 25 mg 7-06 tablet by ity of tablet 00:00: mouth at [place] 00 bedtime. Medical Branch fenofibrate 2022-0 Yes [id number] 54mg Take 1 [facility] 54 mg 7-06 tablet by ity of tablet 00:00: mouth in [place] 00 the Medical morning. Branch glipiZIDE 0 Yes [id number] 10mg Take 1 [facility] [place] XL 10 mg 24 7-06 tablet by ity of hr tablet 00:00: mouth [place] 00 daily with Medical breakfast. Branch SITagliptin 0 Yes [id number] 2{tbl} Take 2 [facility] phos-metfor 7-06 tablets by it y of min 00:00: mouth in [place] ( the Medical XR) morning. Branch 50-1,000 mg per tablet Insulin Yes [id number] 20U inject 20 U nivers Glargine 7-06 Units ity of ([place] 00:00: under the [place] 00 skin in Medical U-100 the Branch INSULIN) morning. 100 unit/mL Decrease (3 mL) the long injection acting insulin to 20 units once daily to avoid any low BGs. If fasting BG drops < 90, he will continue decrease the insulin dose. lovastatin 0 Yes [id number] TAKE 1 [facility] nivers 40 mg 7-06 TABLET BY ity of tablet 00:00: MOUTH WITH [place] 00 EVENING Medical MEAL Branch mirtazapine 2022-0 Yes [id number] 15mg Take 1 [facility] 15 mg 7-06 tablet by ity of tablet 00:00: mouth at [place] [address] bedtime. Medical Branch pantoprazol 2022-0 Yes [id number] 40mg Take 1 [facility] e 40 mg EC 7-06 tablet by ity of tablet 00:00: mouth in [place] the Medical morning. Branch amitriptyli 2022-0 Yes [id number] 25mg Take 1 [facility] ne 25 mg 7-06 tablet by ity of tablet 00:00: mouth at [place] [address] bedtime. Medical Branch fenofibrate 2022-0 Yes [id number] 54mg Take 1 [facility] 54 mg 7-06 tablet by ity of tablet 00:00: mouth in [place] the Medical morning. Branch glipiZIDE 2022-0 Yes [id number] 10mg Take 1 [facility] [place] XL 10 mg 24 7-06 tablet by ity of hr tablet 00:00: mouth 00 daily with Medical breakfast. Branch SITagliptin 2022-0 Yes [id number] 2{tbl} Take 2 [facility] phos-metfor 7-06 tablets by it y of min 00:00: mouth in [place] ( the Medical XR) morning. Branch 50-1,000 mg per tablet Insulin 2022-0 Yes [id number] 20U inject 20 U nivers Glargine 7-06 Units ity of ([place] 00:00: under the [place] 00 skin in Medical U-100 the Branch INSULIN) morning. 100 unit/mL Decrease (3 mL) the long injection acting insulin to 20 units once daily to avoid any low BGs. If fasting BG drops < 90, he will continue decrease the insulin dose. lovastatin 0 Yes [id number] TAKE 1 [facility] nivers 40 mg 7-06 TABLET BY ity of tablet 00:00: MOUTH WITH [place] 00 EVENING Medical MEAL Branch mirtazapine 0 Yes [id number] 15mg Take 1 [facility] 15 mg 7-06 tablet by ity of tablet 00:00: mouth at [place] [address] bedtime. Medical Branch pantoprazol Yes [id number] 40mg Take 1 [facility] e 40 mg EC 7-06 tablet by ity of tablet 00:00: mouth in [place] 00 the Medical morning. Branch amitriptyli Yes [id number] 25mg Take 1 [facility] ne 25 mg 7-06 tablet by ity of tablet 00:00: mouth at [place] [address] bedtime. Medical Branch fenofibrate 0 Yes [id number] 54mg Take 1 [facility] 54 mg 7-06 tablet by ity of tablet 00:00: mouth in [place] the Medical morning. Branch glipiZIDE Yes [id number] 10mg Take 1 [facility] [place] XL 10 mg 24 7-06 tablet by ity of hr tablet 00:00: mouth [place] 00 daily with Medical breakfast. Branch SITagliptin 0 Yes [id number] 2{tbl} Take 2 [facility] phos-metfor 7-06 tablets by it y of min 00:00: mouth in [place] ( the Medical XR) morning. Branch 50-1,000 mg per tablet Insulin Yes [id number] 20U inject 20 U nivers Glargine 7-06 Units ity of ([place] 00:00: under the [place] [facility] 00 skin in Medical U-100 the Branch INSULIN) morning. 100 unit/mL Decrease (3 mL) the long injection acting insulin to 20 units once daily to avoid any low BGs. If fasting BG drops < 90, he will continue decrease the insulin dose. lovastatin 0 Yes [id number] TAKE 1 [facility] nivers 40 mg 7-06 TABLET BY ity of tablet 00:00: MOUTH WITH [place] 00 EVENING Medical MEAL Branch mirtazapine 0 Yes [id number] 15mg Take 1 [facility] 15 mg 7-06 tablet by ity of tablet 00:00: mouth at [place] 00 bedtime. Medical Branch pantoprazol 2022-0 Yes [id number] 40mg Take 1 [facility] e 40 mg EC 7-06 tablet by ity of tablet 00:00: mouth in [place] 00 the Medical morning. Branch amitriptyli 2022-0 Yes [id number] 25mg Take 1 [facility] ne 25 mg 7-06 tablet by ity of tablet 00:00: mouth at [place] 00 bedtime. Medical Branch fenofibrate 2022-0 Yes [id number] 54mg Take 1 [facility] 54 mg 7-06 tablet by ity of tablet 00:00: mouth in [place] 00 the Medical morning. Branch glipiZIDE 2022-0 Yes [id number] 10mg Take 1 [facility] [place] XL 10 mg 24 7-06 tablet by ity of hr tablet 00:00: mouth [place] 00 daily with Medical breakfast. Branch SITagliptin 2022-0 Yes [id number] 2{tbl} Take 2 [facility] phos-metfor 7-06 tablets by it y of min 00:00: mouth in [place] ([place] 00 the Medical XR) morning. Branch 50-1,000 mg per tablet Insulin Yes [id number] 20U inject 20 U nivers Glargine 7-06 Units ity of ([place] 00:00: under the [place] 00 skin in Medical U-100 the Branch INSULIN) morning. 100 unit/mL Decrease (3 mL) the long injection acting insulin to 20 units once daily to avoid any low BGs. If fasting BG drops < 90, he will continue decrease the insulin dose. lovastatin 0 Yes [id number] TAKE 1 U nivers 40 mg 7-06 TABLET BY ity of tablet 00:00: MOUTH WITH [place] 00 EVENING Medical MEAL Branch mirtazapine 2022-0 Yes [id number] 15mg Take 1 [facility] 15 mg 7-06 tablet by ity of tablet 00:00: mouth at [place] 00 bedtime. Medical Branch pantoprazol 2022-0 Yes [id number] 40mg Take 1 [facility] e 40 mg EC 7-06 tablet by ity of tablet 00:00: mouth in [place] 00 the Medical morning. Branch amitriptyli 2022-0 Yes [id number] 25mg Take 1 [facility] ne 25 mg 7-06 tablet by ity of tablet 00:00: mouth at [place] [address] bedtime. Medical Branch fenofibrate 2022-0 Yes [id number] 54mg Take 1 [facility] 54 mg 7-06 tablet by ity of tablet 00:00: mouth in [place] 00 the Medical morning. Branch glipiZIDE 2022-0 Yes [id number] 10mg Take 1 [facility] [place] XL 10 mg 24 7-06 tablet by ity of hr tablet 00:00: mouth [place] 00 daily with Medical breakfast. Branch SITagliptin 2022-0 Yes [id number] 2{tbl} Take 2 [facility] phos-metfor 7-06 tablets by it y of min 00:00: mouth in [place] ( the Medical XR) morning. Branch 50-1,000 mg per tablet Insulin 2022-0 Yes [id number] 20U inject 20 U nivers Glargine 7-06 Units ity of ([place] 00:00: under the [place] [facility] 00 skin in Medical U-100 the Branch INSULIN) morning. 100 unit/mL Decrease (3 mL) the long injection acting insulin to 20 units once daily to avoid any low BGs. If fasting BG drops < 90, he will continue decrease the insulin dose. lovastatin 0 Yes [id number] TAKE 1 U nivers 40 mg 7-06 TABLET BY ity of tablet 00:00: MOUTH WITH [place] 00 EVENING Medical MEAL Branch mirtazapine 2022-0 Yes [id number] 15mg Take 1 [facility] 15 mg 7-06 tablet by ity of tablet 00:00: mouth at [place] [address] bedtime. Medical Branch pantoprazol 2022-0 Yes [id number] 40mg Take 1 [facility] e 40 mg EC 7-06 tablet by ity of tablet 00:00: mouth in [place] 00 the Medical morning. Branch amitriptyli 2022-0 Yes [id number] 25mg Take 1 [facility] ne 25 mg 7-06 tablet by ity of tablet 00:00: mouth at [place] [address] bedtime. Medical Branch fenofibrate 2022-0 Yes [id number] 54mg Take 1 [facility] 54 mg 7-06 tablet by ity of tablet 00:00: mouth in [place] 00 the Medical morning. Branch glipiZIDE 2022-0 Yes [id number] 10mg Take 1 [facility] [place] XL 10 mg 24 7-06 tablet by ity of hr tablet 00:00: mouth [place] 00 daily with Medical breakfast. Branch SITagliptin Yes [id number] 2{tbl} Take 2 [facility] phos-metfor 7-06 tablets by it y of min 00:00: mouth in [place] ( the Medical XR) morning. Branch 50-1,000 mg per tablet Insulin Yes [id number] 20U inject 20 U nivers Glargine 7-06 Units ity of ([place] 00:00: under the [place] [facility] 00 skin in Medical U-100 the [place] INSULIN) morning. 100 unit/mL Decrease (3 mL) the long injection acting insulin to 20 units once daily to avoid any low BGs. If fasting BG drops < 90, he will continue decrease the insulin dose. lovastatin Yes [id number] TAKE 1 U nivers 40 mg 7-06 TABLET BY ity of tablet 00:00: MOUTH WITH [place] 00 EVENING Medical MEAL Branch mirtazapine 0 Yes [id number] 15mg Take 1 [facility] 15 mg 7-06 tablet by ity of tablet 00:00: mouth at [place] [address] bedtime. Medical Branch pantoprazol Yes [id number] 40mg Take 1 [facility] e 40 mg EC 7-06 tablet by ity of tablet 00:00: mouth in [place] the Medical morning. Branch amitriptyli Yes [id number] 25mg Take 1 [facility] ne 25 mg 7-06 tablet by ity of tablet 00:00: mouth at [place] [address] bedtime. Medical Branch fenofibrate 2022-0 Yes [id number] 54mg Take 1 [facility] 54 mg 7-06 tablet by ity of tablet 00:00: mouth in [place] the Medical morning. Branch glipiZIDE 0 Yes [id number] 10mg Take 1 [facility] [place] XL 10 mg 24 7-06 tablet by ity of hr tablet 00:00: mouth 00 daily with Medical breakfast. Branch SITagliptin 0 Yes [id number] 2{tbl} Take 2 [facility] phos-metfor 7-06 tablets by it y of min 00:00: mouth in [place] ( the Medical XR) morning. Branch 50-1,000 mg per tablet Insulin Yes [id number] 20U inject 20 U nivers Glargine 7-06 Units ity of ([place] 00:00: [facility] [place] [facility] U-100 the Branch INSULIN) morning. 100 unit/mL Decrease (3 mL) the long injection acting insulin to 20 units once daily to avoid any low BGs. If fasting BG drops < 90, he will continue decrease the insulin dose. lovastatin 0 Yes [id number] TAKE 1 U nivers 40 mg 7-06 TABLET BY ity of tablet 00:00: MOUTH WITH [place] [address] EVENING Medical MEAL Branch mirtazapine 0 Yes [id number] 15mg Take 1 [facility] 15 mg 7-06 tablet by ity of tablet 00:00: mouth at [place] [address] bedtime. Medical Branch pantoprazol 0 Yes [id number] 40mg Take 1 [facility] e 40 mg EC 7-06 tablet by ity of tablet 00:00: mouth in [place] [address] the Medical morning. Branch amitriptyli 0 Yes [id number] 25mg Take 1 [facility] ne 25 mg 7-06 tablet by ity of tablet 00:00: mouth at [place] [address] bedtime. Medical Branch fenofibrate 0 Yes [id number] 54mg Take 1 [facility] 54 mg 7-06 tablet by ity of tablet 00:00: mouth in [place] the Medical morning. Branch glipiZIDE 0 Yes [id number] 10mg Take 1 [facility] [place] XL 10 mg 24 7-06 tablet by ity of hr tablet 00:00: mouth [place] [address] daily with Medical breakfast. Branch SITagliptin 0 Yes [id number] 2{tbl} Take 2 [facility] phos-metfor 7-06 tablets by it y of min 00:00: mouth in [place] ( the Medical XR) morning. Branch 50-1,000 mg per tablet Insulin Yes [id number] 20U inject 20 U nivers Glargine 7-06 Units ity of ([place] 00:00: under the [place] [facility] Medical U-100 the Branch INSULIN) morning. 100 unit/mL Decrease (3 mL) the long injection acting insulin to 20 units once daily to avoid any low BGs. If fasting BG drops < 90, he will continue decrease the insulin dose. lovastatin 0 Yes [id number] TAKE 1 [facility] nivers 40 mg 7-06 TABLET BY ity of tablet 00:00: MOUTH WITH [place] 00 EVENING Medical MEAL Branch mirtazapine 0 Yes [id number] 15mg Take 1 [facility] 15 mg 7-06 tablet by ity of tablet 00:00: mouth at [place] 00 bedtime. Medical Branch pantoprazol 0 Yes [id number] 40mg Take 1 [facility] e 40 mg EC 7-06 tablet by ity of tablet 00:00: mouth in [place] 00 the Medical morning. Branch amitriptyli 0 Yes [id number] 25mg Take 1 [facility] ne 25 mg 7-06 tablet by ity of tablet 00:00: mouth at [place] 00 bedtime. Medical Branch fenofibrate 0 Yes [id number] 54mg Take 1 [facility] 54 mg 7-06 tablet by ity of tablet 00:00: mouth in [place] 00 the Medical morning. Branch glipiZIDE Yes [id number] 10mg Take 1 [facility] [place] XL 10 mg 24 7-06 tablet by ity of hr tablet 00:00: mouth [place] 00 daily with Medical breakfast. Branch SITagliptin Yes [id number] 2{tbl} Take 2 [facility] phos-metfor 7-06 tablets by it y of min 00:00: mouth in [place] ( 00 the Medical XR) morning. Branch 50-1,000 mg per tablet Insulin Yes [id number] 20U inject 20 U nivers Glargine 7-06 Units ity of ([place] 00:00: under the [place] [facility] 00 skin in Medical U-100 the Branch INSULIN) morning. 100 unit/mL Decrease (3 mL) the long injection acting insulin to 20 units once daily to avoid any low BGs. If fasting BG drops < 90, he will continue decrease the insulin dose. lovastatin 0 Yes [id number] TAKE 1 U nivers 40 mg 7-06 TABLET BY ity of tablet 00:00: MOUTH WITH [place] 00 EVENING Medical MEAL Branch mirtazapine 0 Yes [id number] 15mg Take 1 [facility] 15 mg 7-06 tablet by ity of tablet 00:00: mouth at [place] 00 bedtime. Medical Branch pantoprazol 0 Yes [id number] 40mg Take 1 [facility] e 40 mg EC 7-06 tablet by ity of tablet 00:00: mouth in [place] 00 the Medical morning. Branch amitriptyli 2022-0 Yes [id number] 25mg Take 1 [facility] ne 25 mg 7-06 tablet by ity of tablet 00:00: mouth at [place] [address] bedtime. Medical Branch fenofibrate 2022-0 Yes [id number] 54mg Take 1 [facility] 54 mg 7-06 tablet by ity of tablet 00:00: mouth in [place] 00 the Medical morning. Branch glipiZIDE 2022-0 Yes [id number] 10mg Take 1 [facility] [place] XL 10 mg 24 7-06 tablet by ity of hr tablet 00:00: mouth [place] 00 daily with Medical breakfast. Branch SITagliptin 2022-0 Yes [id number] 2{tbl} Take 2 [facility] phos-metfor 7-06 tablets by it y of min 00:00: mouth in [place] ( the Medical XR) morning. Branch 50-1,000 mg per tablet Insulin 0 Yes [id number] 20U inject 20 U nivers Glargine 7-06 Units ity of ([place] 00:00: under the [place] 00 skin in [facility] U-100 the [place] INSULIN) morning. 100 unit/mL Decrease (3 mL) the long injection acting insulin to 20 units once daily to avoid any low BGs. If fasting BG drops < 90, he will continue decrease the insulin dose. lovastatin 0 Yes [id number] TAKE 1 U nivers 40 mg 7-06 TABLET BY ity of tablet 00:00: MOUTH WITH [place] 00 EVENING Medical MEAL Branch mirtazapine 2022-0 Yes [id number] 15mg Take 1 [facility] 15 mg 7-06 tablet by ity of tablet 00:00: mouth at [place] [address] bedtime. Medical Branch pantoprazol 2022-0 Yes [id number] 40mg Take 1 [facility] e 40 mg EC 7-06 tablet by ity of tablet 00:00: mouth in [place] [address] the Medical morning. Branch amitriptyli 2022-0 Yes [id number] 25mg Take 1 [facility] ne 25 mg 7-06 tablet by ity of tablet 00:00: mouth at [place] [address] bedtime. Medical Branch fenofibrate 2022-0 Yes [id number] 54mg Take 1 [facility] 54 mg 7-06 tablet by ity of tablet 00:00: mouth in [place] 00 the Medical morning. Branch glipiZIDE 2022-0 Yes [id number] 10mg Take 1 [facility] [place] XL 10 mg 24 7-06 tablet by ity of hr tablet 00:00: mouth 00 daily with Medical breakfast. Branch SITagliptin Yes [id number] 2{tbl} Take 2 [facility] phos-metfor 7-06 tablets by it y of min 00:00: mouth in [place] ( the Medical XR) morning. Branch 50-1,000 mg per tablet Insulin Yes [id number] 20U inject 20 U nivers Glargine 7-06 Units ity of ([place] 00:00: under the [place] [facility] 00 skin in Medical U-100 the [place] INSULIN) morning. 100 unit/mL Decrease (3 mL) the long injection acting insulin to 20 units once daily to avoid any low BGs. If fasting BG drops < 90, he will continue decrease the insulin dose. lovastatin Yes [id number] TAKE 1 U nivers 40 mg 7-06 TABLET BY ity of tablet 00:00: MOUTH WITH [place] 00 EVENING Medical MEAL Branch mirtazapine Yes [id number] 15mg Take 1 [facility] 15 mg 7-06 tablet by ity of tablet 00:00: mouth at [place] [address] bedtime. Medical Branch pantoprazol Yes [id number] 40mg Take 1 [facility] e 40 mg EC 7-06 tablet by ity of tablet 00:00: mouth in [place] the Medical morning. Branch amitriptyli Yes [id number] 25mg Take 1 [facility] ne 25 mg 7-06 tablet by ity of tablet 00:00: mouth at [place] [address] bedtime. Medical Branch fenofibrate Yes [id number] 54mg Take 1 [facility] 54 mg 7-06 tablet by ity of tablet 00:00: mouth in [place] the Medical morning. Branch glipiZIDE Yes [id number] 10mg Take 1 [facility] [place] XL 10 mg 24 7-06 tablet by ity of hr tablet 00:00: mouth 00 daily with Medical breakfast. Branch SITagliptin Yes [id number] 2{tbl} Take 2 [facility] phos-metfor 7-06 tablets by it y of min 00:00: mouth in [place] ( the Medical XR) morning. Branch 50-1,000 mg per tablet Insulin Yes [id number] 20U inject 20 U nivers Glargine 7-06 Units ity of ([place] 00:00: [facility] the [place] [facility] skin in Medical U-100 the Branch INSULIN) morning. 100 unit/mL Decrease (3 mL) the long injection acting insulin to 20 units once daily to avoid any low BGs. If fasting BG drops < 90, he will continue decrease the insulin dose. lovastatin 0 Yes [id number] TAKE 1 U nivers 40 mg 7-06 TABLET BY ity of tablet 00:00: MOUTH WITH [place] 00 EVENING Medical MEAL Branch mirtazapine 0 Yes [id number] 15mg Take 1 [facility] 15 mg 7-06 tablet by ity of tablet 00:00: mouth at [place] [address] bedtime. Medical Branch pantoprazol Yes [id number] 40mg Take 1 [facility] e 40 mg EC 7-06 tablet by ity of tablet 00:00: mouth in [place] 00 the Medical morning. Branch amitriptyli 0 Yes [id number] 25mg Take 1 [facility] ne 25 mg 7-06 tablet by ity of tablet 00:00: mouth at [place] [address] bedtime. Medical Branch fenofibrate 0 Yes [id number] 54mg Take 1 [facility] 54 mg 7-06 tablet by ity of tablet 00:00: mouth in [place] 00 the Medical morning. Branch glipiZIDE Yes [id number] 10mg Take 1 [facility] [place] XL 10 mg 24 7-06 tablet by ity of hr tablet 00:00: mouth [place] 00 daily with Medical breakfast. Branch SITagliptin 0 Yes [id number] 2{tbl} Take 2 [facility] phos-metfor 7-06 tablets by it y of min 00:00: mouth in [place] ( the Medical XR) morning. Branch 50-1,000 mg per tablet Insulin Yes [id number] 20U inject 20 U nivers Glargine 7-06 Units ity of ([facility] 00:00: under the [place] [facility] skin in Medical U-100 the Branch INSULIN) morning. 100 unit/mL Decrease (3 mL) the long injection acting insulin to 20 units once daily to avoid any low BGs. If fasting BG drops < 90, he will continue decrease the insulin dose. lovastatin Yes [id number] TAKE 1 U nivers 40 mg 7-06 TABLET BY ity of tablet 00:00: MOUTH WITH [place] 00 EVENING Medical MEAL Branch mirtazapine 0 Yes [id number] 15mg Take 1 [facility] 15 mg 7-06 tablet by ity of tablet 00:00: mouth at [place] [address] bedtime. Medical Branch pantoprazol 2022-0 Yes [id number] 40mg Take 1 [facility] e 40 mg EC 7-06 tablet by ity of tablet 00:00: mouth in [place] 00 the Medical morning. Branch amitriptyli 0 Yes [id number] 25mg Take 1 [facility] ne 25 mg 7-06 tablet by ity of tablet 00:00: mouth at [place] [address] bedtime. Medical Branch fenofibrate 0 Yes [id number] 54mg Take 1 [facility] 54 mg 7-06 tablet by ity of tablet 00:00: mouth in [place] 00 the Medical morning. Branch glipiZIDE Yes [id number] 10mg Take 1 Un [place] XL 10 mg 24 7-06 tablet by ity of hr tablet 00:00: mouth [place] 00 daily with Medical breakfast. Branch SITagliptin Yes [id number] 2{tbl} Take 2 [facility] phos-metfor 7-06 tablets by it y of min 00:00: mouth in [place] ( the Medical XR) morning. Branch 50-1,000 mg per tablet Insulin Yes [id number] 20U inject 20 U nivers Glargine 7-06 Units ity of (LANTUS 00:00: under the [place] [facility] 00 skin in Medical U-100 the Branch INSULIN) morning. 100 unit/mL Decrease (3 mL) the long injection acting insulin to 20 units once daily to avoid any low BGs. If fasting BG drops < 90, he will continue decrease the insulin dose. lovastatin 0 Yes [id number] TAKE 1 U nivers 40 mg 7-06 TABLET BY ity of tablet 00:00: MOUTH WITH [place] 00 EVENING Medical MEAL Branch mirtazapine 0 Yes [id number] 15mg Take 1 [facility] 15 mg 7-06 tablet by ity of tablet 00:00: mouth at [place] [address] bedtime. Medical Branch pantoprazol 0 Yes [id number] 40mg Take 1 [facility] e 40 mg EC 7-06 tablet by ity of tablet 00:00: mouth in [place] 00 the Medical morning. Branch amitriptyli Yes [id number] 25mg Take 1 [facility] ne 25 mg 7-06 tablet by ity of tablet 00:00: mouth at [place] [address] bedtime. Medical Branch fenofibrate 2022-0 Yes [id number] 54mg Take 1 [facility] 54 mg 7-06 tablet by ity of tablet 00:00: mouth in [place] 00 the Medical morning. Branch glipiZIDE Yes [id number] 10mg Take 1 Un [place] XL 10 mg 24 7-06 tablet by ity of hr tablet 00:00: mouth [place] 00 daily with Medical breakfast. Branch SITagliptin Yes [id number] 2{tbl} Take 2 [facility] phos-metfor 7-06 tablets by it y of min 00:00: mouth in [place] ( the Medical XR) morning. Branch 50-1,000 mg per tablet Insulin Yes [id number] 20U inject 20 U nivers Glargine 7-06 Units ity of ([place]US 00:00: under the [place] [facility] 00 skin in [facility] U-100 the [place] INSULIN) morning. 100 unit/mL Decrease (3 mL) the long injection acting insulin to 20 units once daily to avoid any low BGs. If fasting BG drops < 90, he will continue decrease the insulin dose. lovastatin Yes [id number] TAKE 1 U nivers 40 mg 7-06 TABLET BY ity of tablet 00:00: MOUTH WITH [place] 00 EVENING Medical MEAL Branch mirtazapine 0 Yes [id number] 15mg Take 1 [facility] 15 mg 7-06 tablet by ity of tablet 00:00: mouth at [place] [address] bedtime. Medical Branch pantoprazol Yes [id number] 40mg Take 1 [facility] e 40 mg EC 7-06 tablet by ity of tablet 00:00: mouth in [place] 00 the Medical morning. Branch amitriptyli Yes [id number] 25mg Take 1 [facility] ne 25 mg 7-06 tablet by ity of tablet 00:00: mouth at [place] [address] bedtime. Medical Branch fenofibrate 2022-0 Yes [id number] 54mg Take 1 [facility] 54 mg 7-06 tablet by ity of tablet 00:00: mouth in [place] 00 the Medical morning. Branch glipiZIDE 0 Yes [id number] 10mg Take 1 Un [place] XL 10 mg 24 7-06 tablet by ity of hr tablet 00:00: mouth [place] 00 daily with Medical breakfast. Branch SITagliptin Yes [id number] 2{tbl} Take 2 [facility] phos-metfor 7-06 tablets by it y of min 00:00: mouth in [place] ( the Medical XR) morning. Branch 50-1,000 mg per tablet Insulin Yes [id number] 20U inject 20 U nivers Glargine 7-06 Units ity of ([place] 00:00: under the [place] [facility] 00 skin in Medical U-100 the Branch INSULIN) morning. 100 unit/mL Decrease (3 mL) the long injection acting insulin to 20 units once daily to avoid any low BGs. If fasting BG drops < 90, he will continue decrease the insulin dose. lovastatin 0 Yes [id number] TAKE 1 U nivers 40 mg 7-06 TABLET BY ity of tablet 00:00: MOUTH WITH [place] 00 EVENING Medical MEAL Branch mirtazapine 2022-0 Yes [id number] 15mg Take 1 [facility] 15 mg 7-06 tablet by ity of tablet 00:00: mouth at [place] [address] bedtime. Medical Branch pantoprazol 2022-0 Yes [id number] 40mg Take 1 [facility] e 40 mg EC 7-06 tablet by ity of tablet 00:00: mouth in [place] 00 the Medical morning. Branch amitriptyli 2022-0 Yes [id number] 25mg Take 1 [facility] ne 25 mg 7-06 tablet by ity of tablet 00:00: mouth at [place] [address] bedtime. Medical Branch fenofibrate 2022-0 Yes [id number] 54mg Take 1 [facility] 54 mg 7-06 tablet by ity of tablet 00:00: mouth in [place] 00 the Medical morning. Branch glipiZIDE 2022-0 Yes [id number] 10mg Take 1 Un [place] XL 10 mg 24 7-06 tablet by ity of hr tablet 00:00: mouth [place] 00 daily with Medical breakfast. Branch SITagliptin 2022-0 Yes [id number] 2{tbl} Take 2 [facility] phos-metfor 7-06 tablets by it y of min 00:00: mouth in [place] (JANUMET 00 the Medical XR) morning. Branch 50-1,000 mg per tablet Insulin Yes [id number] 20U inject 20 U nivers Glargine 7-06 Units ity of ([place]US 00:00: under the [place] [facility] 00 skin in Medical U-100 the Branch INSULIN) morning. 100 unit/mL Decrease (3 mL) the long injection acting insulin to 20 units once daily to avoid any low BGs. If fasting BG drops < 90, he will continue decrease the insulin dose. lovastatin Yes [id number] TAKE 1 U nivers 40 mg 12-17 TABLET BY ity of tablet 00:00: MOUTH WITH [place] 00 EVENING Medical MEAL Branch rivastigmin 3- No [id number] 3mg Take 1 Univers e tartrate 12-17 capsule by it y of 3 mg 00:00: 00:00 mouth [place] capsule 00 :00 every Medical morning Branch and evening. rivastigmin 2022- No [id number] 3mg Take 1 Univers e tartrate 12-17 capsule by it y of 3 mg 00:00: 00:00 mouth [place] capsule 00 :00 every Medical morning Branch and evening. ciprofloxac Yes [id number] 4[drp] Place 4 Univers in-dexameth 12-12 [id number] Drops in ity of asone 00:00: right ear [place] 0.3-0.1 % 00 in the Medical otic drops morning Branch and 4 Drops in the evening. ciprofloxac Yes [id number] 4[drp] Place 4 Univers in-dexameth 12-12 [id number] Drops in ity of asone 00:00: right ear [place] 0.3-0.1 % 00 in the Medical otic drops morning Branch and 4 Drops in the evening. ciprofloxac Yes [id number] 4[drp] Place 4 Univers in-dexameth 12-12 [id number] Drops in ity of asone 00:00: right ear [place] 0.3-0.1 % 00 in the Medical otic drops morning Branch and 4 Drops in the evening. ciprofloxac Yes [id number] 4[drp] Place 4 Univers in-dexameth 7-01 68621 Drops in ity of asone 00:00: right ear [place] 0.3-0.1 % 00 in the Medical otic drops morning Branch and 4 Drops in the evening. ciprofloxac Yes [id number] 4[drp] Place 4 Univers in-dexameth 12-12 [id number] Drops in ity of asone 00:00: right ear [place] 0.3-0.1 % 00 in the Medical otic drops morning Branch and 4 Drops in the evening. ciprofloxac Yes [id number] 4[drp] Place 4 Univers in-dexameth - 37322 Drops in ity of asone 00:00: right ear [place] 0.3-0.1 % 00 in the Medical otic drops morning Branch and 4 Drops in the evening. ciprofloxac Yes [id number] 4[drp] Place 4 Univers in-dexameth 12-12 01870 Drops in ity of asone 00:00: right ear [place] 0.3-0.1 % 00 in the Medical otic drops morning Branch and 4 Drops in the evening. ciprofloxac Yes [id number] 4[drp] Place 4 Univers in-dexameth - 04805 Drops in ity of asone 00:00: right ear [place] 0.3-0.1 % 00 in the Medical otic drops morning Branch and 4 Drops in the evening. ciprofloxac Yes [id number] 4[drp] Place 4 Univers in-dexameth 12-12 [id number] Drops in ity of asone 00:00: right ear [place] 0.3-0.1 % 00 in the Medical otic drops morning Branch and 4 Drops in the evening. ciprofloxac Yes [id number] 4[drp] Place 4 Univers in-dexameth - 39221 Drops in ity of asone 00:00: right ear [place] 0.3-0.1 % 00 in the Medical otic drops morning Branch and 4 Drops in the evening. ciprofloxac Yes [id number] 4[drp] Place 4 Univers in-dexameth - 51311 Drops in ity of asone 00:00: right ear [place] 0.3-0.1 % 00 in the Medical otic drops morning Branch and 4 Drops in the evening. ciprofloxac 0 Yes [id number] 4[drp] Place 4 Univers in-dexameth - 10090 Drops in ity of asone 00:00: right ear [place] 0.3-0.1 % 00 in the Medical otic drops morning Branch and 4 Drops in the evening. ciprofloxac 0 Yes [id number] 4[drp] Place 4 Univers in-dexameth 12-12 61674 Drops in ity of asone 00:00: right ear [place] 0.3-0.1 % 00 in the Medical otic drops morning Branch and 4 Drops in the evening. ciprofloxac Yes [id number] 4[drp] Place 4 Univers in-dexameth 12-12 [id number] Drops in ity of asone 00:00: right ear [place] 0.3-0.1 % 00 in the Medical otic drops morning Branch and 4 Drops in the evening. ciprofloxac Yes [id number] 4[drp] Place 4 Univers in-dexameth 12-12 [id number] Drops in ity of asone 00:00: right ear [place] 0.3-0.1 % 00 in the Medical otic drops morning Branch and 4 Drops in the evening. ciprofloxac 0 Yes [id number] 4[drp] Place 4 Univers in-dexameth 12-12 04534 Drops in ity of asone 00:00: right ear [place] 0.3-0.1 % 00 in the Medical otic drops morning Branch and 4 Drops in the evening. ciprofloxac Yes [id number] 4[drp] Place 4 Univers in-dexameth - 00659 Drops in ity of asone 00:00: right ear [place] 0.3-0.1 % 00 in the Medical otic drops morning Branch and 4 Drops in the evening. ciprofloxac 0 Yes [id number] 4[drp] Place 4 Univers in-dexameth 12-12 29717 Drops in ity of asone 00:00: right ear [place] 0.3-0.1 % 00 in the Medical otic drops morning Branch and 4 Drops in the evening. ciprofloxac 0 Yes [id number] 4[drp] Place 4 Univers in-dexameth - 86846 Drops in ity of asone 00:00: right ear [place] 0.3-0.1 % 00 in the Medical otic drops morning Branch and 4 Drops in the evening. ciprofloxac 0 Yes [id number] 4[drp] Place 4 Univers in-dexameth 12-12 [id number] Drops in ity of asone 00:00: right ear [place] 0.3-0.1 % 00 in the Medical otic drops morning Branch and 4 Drops in the evening. ciprofloxac 0 Yes [id number] 4[drp] Place 4 Univers in-dexameth 12-12 42692 Drops in ity of asone 00:00: right ear [place] 0.3-0.1 % 00 in the Medical otic drops morning Branch and 4 Drops in the evening. ciprofloxac Yes [id number] 4[drp] Place 4 Univers in-dexameth 12-12 26939 Drops in ity of asone 00:00: right ear [place] 0.3-0.1 % 00 in the Medical otic drops morning Branch and 4 Drops in the evening. ciprofloxac 0 Yes [id number] 4[drp] Place 4 Univers in-dexameth 12-12 05428 Drops in ity of asone 00:00: right ear [place] 0.3-0.1 % 00 in the Medical otic drops morning Branch and 4 Drops in the evening. ciprofloxac 0 Yes [id number] 4[drp] Place 4 Univers in-dexameth - 98315 Drops in ity of asone 00:00: right ear [place] 0.3-0.1 % 00 in the Medical otic drops morning Branch and 4 Drops in the evening. ciprofloxac 0 Yes [id number] 4[drp] Place 4 Univers in-dexameth 12-12 32354 Drops in ity of asone 00:00: right ear [place] 0.3-0.1 % 00 in the Medical otic drops morning Branch and 4 Drops in the evening. ciprofloxac Yes [id number] 4[drp] Place 4 Univers in-dexameth 7- 03696 Drops in ity of asone 00:00: right ear [place] 0.3-0.1 % 00 in the Medical otic drops morning Branch and 4 Drops in the evening. ciprofloxac Yes [id number] 4[drp] Place 4 Univers in-dexameth 12-12 78098 Drops in ity of asone 00:00: right ear [place] 0.3-0.1 % 00 in the Medical otic drops morning Branch and 4 Drops in the evening. ciprofloxac Yes [id number] 4[drp] Place 4 Univers in-dexameth - 31694 Drops in ity of asone 00:00: right ear [place] 0.3-0.1 % 00 in the Medical otic drops morning Branch and 4 Drops in the evening. ciprofloxac Yes [id number] 4[drp] Place 4 Univers in-dexameth 12-12 68582 Drops in ity of asone 00:00: right ear [place] 0.3-0.1 % 00 in the Medical otic drops morning Branch and 4 Drops in the evening. ciprofloxac Yes [id number] 4[drp] Place 4 Univers in-dexameth - 99427 Drops in ity of asone 00:00: right ear [place] 0.3-0.1 % 00 in the Medical otic drops morning Branch and 4 Drops in the evening. ciprofloxac Yes [id number] 4[drp] Place 4 Univers in-dexameth - 33946 Drops in ity of asone 00:00: right ear [place] 0.3-0.1 % 00 in the Medical otic drops morning Branch and 4 Drops in the evening. ciprofloxac Yes [id number] 4[drp] Place 4 Univers in-dexameth 7- 25808 Drops in ity of asone 00:00: right ear [place] 0.3-0.1 % 00 in the Medical otic drops morning Branch and 4 Drops in the evening. ciprofloxac Yes [id number] 4[drp] Place 4 Univers in-dexameth - 91626 Drops in ity of asone 00:00: right ear [place] 0.3-0.1 % 00 in the Medical otic drops morning Branch and 4 Drops in the evening. ciprofloxac Yes [id number] 4[drp] Place 4 Univers in-dexameth - 49502 Drops in ity of asone 00:00: right ear [place] 0.3-0.1 % 00 in the Medical otic drops morning Branch and 4 Drops in the evening. ciprofloxac Yes [id number] 4[drp] Place 4 Univers in-dexameth - 42246 Drops in ity of asone 00:00: right ear [place] 0.3-0.1 % 00 in the Medical otic drops morning Branch and 4 Drops in the evening. ciprofloxac Yes [id number] 4[drp] Place 4 Univers in-dexameth - 32733 Drops in ity of asone 00:00: right ear [place] 0.3-0.1 % 00 in the Medical otic drops morning Branch and 4 Drops in the evening. ciprofloxac Yes [id number] 4[drp] Place 4 Univers in-dexameth - 23636 Drops in ity of asone 00:00: right ear [place] 0.3-0.1 % 00 in the Medical otic drops morning Branch and 4 Drops in the evening. ciprofloxac Yes [id number] 4[drp] Place 4 Univers in-dexameth 12-12 85635 Drops in ity of asone 00:00: right ear [place] 0.3-0.1 % 00 in the Medical otic drops morning Branch and 4 Drops in the evening. ciprofloxac Yes [id number] 4[drp] Place 4 Univers in-dexameth 7- 64591 Drops in ity of asone 00:00: right ear [place] 0.3-0.1 % 00 in the Medical otic drops morning Branch and 4 Drops in the evening. metFORMIN 2022-0 2022- No 500mg Take 500 Un [place] 500 mg 6-28 06-28 mg by ity of tablet 14:42: 00:00 mouth [place] 11 :00 daily. Medical Branch neomycin-po 2022-0 Yes [id number] 3[drp] Place 3 Univers lymyxin-hyd 6-28 Drops in ity of rocortisone 00:00: right ear [place] otic 00 4 (four) Medical solution times Branch daily. neomycin-po 2022-0 Yes [id number] 3[drp] Place 3 Univers lymyxin-hyd 6-28 Drops in ity of rocortisone 00:00: right ear [place] otic 00 4 (four) Medical solution times Branch daily. neomycin-po 2022-0 Yes [id number] 3[drp] Place 3 Univers lymyxin-hyd 6-28 Drops in ity of rocortisone 00:00: right ear [place] otic 00 4 (four) Medical solution times Branch daily. flash Yes [id number] 1{kit} 1 Kit Unive rs glucose 6-28 CONTINUOUS ity of sensor 00:00: . [place] (FREESTYLE 00 Medical DEBORAH 14 Branch DAY SENSOR) Kit neomycin-po 2022-0 Yes [id number] 3[drp] Place 3 Univers lymyxin-hyd 6-28 Drops in ity of rocortisone 00:00: right ear [place] otic 00 4 (four) Medical solution times Branch daily. flash Yes [id number] 1{kit} 1 Kit Unive rs glucose 6-28 CONTINUOUS ity of sensor 00:00: . [place] (FREESTYLE 00 Medical DEBORAH 14 Branch DAY SENSOR) Kit JANUMET XR 2022-0 Yes TAKE 2 Unive rs 50-1,000 mg 6-28 TABLETS BY it y of per tablet 00:00: MOUTH [place] 00 EVERY DAY Medical Branch neomycin-po 2022-0 Yes [id number] 3[drp] Place 3 Univers lymyxin-hyd 6-28 Drops in ity of rocortisone 00:00: right ear [place] otic 00 4 (four) Medical solution times Branch daily. flash Yes [id number] 1{kit} 1 Kit Unive rs glucose 6-28 CONTINUOUS ity of sensor 00:00: . [place] (FREESTYLE 00 Medical DEBORAH 14 Branch DAY SENSOR) Kit JANUMET XR 2023-0 Yes TAKE 2 Unive rs 50-1,000 mg 6-28 TABLETS BY it y of per tablet 00:00: MOUTH [place] EVERY DAY Medical Branch neomycin-po 2022-0 Yes [id number] 3[drp] Place 3 Univers lymyxin-hyd 6-28 Drops in ity of rocortisone 00:00: right ear [place] otic 00 4 (four) Medical solution times Branch daily. flash Yes [id number] 1{kit} 1 Kit Unive rs glucose 6-28 CONTINUOUS ity of sensor 00:00: . [place] (FREESTYLE 00 Medical DEBORAH 14 Branch DAY SENSOR) Kit JANUMET XR Yes TAKE 2 Unive rs 50-1,000 mg 6-28 TABLETS BY it y of per tablet 00:00: MOUTH [place] EVERY DAY Medical Branch neomycin-po 2022-0 Yes [id number] 3[drp] Place 3 Univers lymyxin-hyd 6-28 Drops in ity of rocortisone 00:00: right ear [place] otic 00 4 (four) Medical solution times Branch daily. flash Yes [id number] 1{kit} 1 Kit Unive rs glucose 6-28 CONTINUOUS ity of sensor 00:00: . [place] (FREESTYLE 00 Medical DEBORAH 14 Branch DAY SENSOR) Kit neomycin-po 2022-0 Yes [id number] 3[drp] Place 3 Univers lymyxin-hyd 6-28 Drops in ity of rocortisone 00:00: right ear [place] otic 00 4 (four) Medical solution times Branch daily. flash 2022- Yes [id number] 1{kit} 1 Kit Unive rs glucose 6-28 CONTINUOUS ity of sensor 00:00: . [place] (FREESTYLE 00 Medical DEBORAH 14 Branch DAY SENSOR) Kit neomycin-po 2022-0 Yes [id number] 3[drp] Place 3 Univers lymyxin-hyd 6-28 Drops in ity of rocortisone 00:00: right ear [place] otic 00 4 (four) Medical solution times Branch daily. flash 2022- Yes [id number] 1{kit} 1 Kit Unive rs glucose 6-28 CONTINUOUS ity of sensor 00:00: . [place] (FREESTYLE 00 Medical DEBORAH 14 Branch DAY SENSOR) Kit neomycin-po 2022-0 Yes [id number] 3[drp] Place 3 Univers lymyxin-hyd 6-28 Drops in ity of rocortisone 00:00: right ear [place] otic 00 4 (four) Medical solution times Branch daily. flash 2022-0 Yes [id number] 1{kit} 1 Kit Unive rs glucose 6-28 CONTINUOUS ity of sensor 00:00: . [place] (FREESTYLE 00 Medical DEBORAH 14 Branch DAY SENSOR) Kit neomycin-po 3-0 Yes [id number] 3[drp] Place 3 Univers lymyxin-hyd 6-28 Drops in ity of rocortisone 00:00: right ear [place] otic 00 4 (four) Medical solution times Branch daily. flash 2022-0 Yes [id number] 1{kit} 1 Kit Unive rs glucose 6-28 CONTINUOUS ity of sensor 00:00: . [place] (FREESTYLE 00 Medical DEBORAH 14 Branch DAY SENSOR) Kit neomycin-po 2023-0 Yes [id number] 3[drp] Place 3 Univers lymyxin-hyd 6-28 Drops in ity of rocortisone 00:00: right ear [place] otic 00 4 (four) Medical solution times Branch daily. flash 2022-0 Yes [id number] 1{kit} 1 Kit Unive rs glucose 6-28 CONTINUOUS ity of sensor 00:00: . [place] (FREESTYLE 00 Medical DEBORAH 14 Branch DAY SENSOR) Kit neomycin-po 3-0 Yes [id number] 3[drp] Place 3 Univers lymyxin-hyd 6-28 Drops in ity of rocortisone 00:00: right ear [place] otic 00 4 (four) Medical solution times Branch daily. flash 2022-0 Yes [id number] 1{kit} 1 Kit Unive rs glucose 6-28 CONTINUOUS ity of sensor 00:00: . [place] (FREESTYLE 00 Medical DEBORAH 14 Branch DAY SENSOR) Kit neomycin-po 2023-0 Yes [id number] 3[drp] Place 3 Univers lymyxin-hyd 6-28 Drops in ity of rocortisone 00:00: right ear [place] otic 00 4 (four) Medical solution times Branch daily. flash 2022-0 Yes [id number] 1{kit} 1 Kit Unive rs glucose 6-28 CONTINUOUS ity of sensor 00:00: . [place] (FREESTYLE 00 Medical DEBORAH 14 Branch DAY SENSOR) Kit neomycin-po 2023-0 Yes [id number] 3[drp] Place 3 Univers lymyxin-hyd 6-28 Drops in ity of rocortisone 00:00: right ear [place] otic 00 4 (four) Medical solution times Branch daily. flash 3-0 Yes [id number] 1{kit} 1 Kit Unive rs glucose 6-28 CONTINUOUS ity of sensor 00:00: . [place] (FREESTYLE 00 Medical DEBORAH 14 Branch DAY SENSOR) Kit neomycin-po 2023-0 Yes [id number] 3[drp] Place 3 Univers lymyxin-hyd 6-28 Drops in ity of rocortisone 00:00: right ear [place] otic 00 4 (four) Medical solution times Branch daily. flash 3-0 Yes [id number] 1{kit} 1 Kit Unive rs glucose 6-28 CONTINUOUS ity of sensor 00:00: . [place] (FREESTYLE 00 Medical DEBORAH 14 Branch DAY SENSOR) Kit neomycin-po 3-0 Yes [id number] 3[drp] Place 3 Univers lymyxin-hyd 6-28 Drops in ity of rocortisone 00:00: right ear [place] otic 00 4 (four) Medical solution times Branch daily. flash 3-0 Yes [id number] 1{kit} 1 Kit Unive rs glucose 6-28 CONTINUOUS ity of sensor 00:00: . [place] (FREESTYLE 00 Medical DEBORAH 14 Branch DAY SENSOR) Kit flash 3-0 Yes [id number] 1{kit} 1 Kit Unive rs glucose 6-28 CONTINUOUS ity of sensor 00:00: . [place] (FREESTYLE 00 Medical DEBORAH 14 Branch DAY SENSOR) Kit flash 2023-0 Yes [id number] 1{kit} 1 Kit Unive rs glucose 6-28 CONTINUOUS ity of sensor 00:00: . [place] (FREESTYLE 00 Medical DEBORAH 14 Branch DAY SENSOR) Kit flash 2023-0 Yes [id number] 1{kit} 1 Kit Unive rs glucose 6-28 CONTINUOUS ity of sensor 00:00: . [place] (FREESTYLE 00 Medical DEBORAH 14 Branch DAY SENSOR) Kit flash 2023-0 Yes [id number] 1{kit} 1 Kit Unive rs glucose 6-28 CONTINUOUS ity of sensor 00:00: . [place] (FREESTYLE 00 Medical DEBORAH 14 Branch DAY SENSOR) Kit flash 2023-0 Yes [id number] 1{kit} 1 Kit Unive rs glucose 6-28 CONTINUOUS ity of sensor 00:00: . [place] (FREESTYLE 00 Medical DEBORAH 14 Branch DAY SENSOR) Kit flash 2023-0 Yes [id number] 1{kit} 1 Kit Unive rs glucose 6-28 CONTINUOUS ity of sensor 00:00: . [place] (FREESTYLE 00 Medical DEBORAH 14 Branch DAY SENSOR) Kit flash 2023-0 Yes [id number] 1{kit} 1 Kit Unive rs glucose 6-28 CONTINUOUS ity of sensor 00:00: . [place] (FREESTYLE 00 Medical DEBORAH 14 Branch DAY SENSOR) Kit flash 2023-0 Yes [id number] 1{kit} 1 Kit Unive rs glucose 6-28 CONTINUOUS ity of sensor 00:00: . [place] (FREESTYLE 00 Medical DEBORAH 14 Branch DAY SENSOR) Kit flash 2023-0 Yes [id number] 1{kit} 1 Kit Unive rs glucose 6-28 CONTINUOUS ity of sensor 00:00: . [place] (FREESTYLE 00 Medical DEBORAH 14 Branch DAY SENSOR) Kit flash 2023-0 Yes [id number] 1{kit} 1 Kit Unive rs glucose 6-28 CONTINUOUS ity of sensor 00:00: . [place] (FREESTYLE 00 Medical DEBORAH 14 Branch DAY SENSOR) Kit flash 2023-0 Yes [id number] 1{kit} 1 Kit Unive rs glucose 6-28 CONTINUOUS ity of sensor 00:00: . [place] (FREESTYLE 00 Medical DEBORAH 14 Branch DAY SENSOR) Kit flash 2023-0 Yes [id number] 1{kit} 1 Kit Unive rs glucose 6-28 CONTINUOUS ity of sensor 00:00: . [place] (FREESTYLE 00 Medical DEBORAH 14 Branch DAY SENSOR) Kit flash 2023-0 Yes [id number] 1{kit} 1 Kit Unive rs glucose 6-28 CONTINUOUS ity of sensor 00:00: . [place] (FREESTYLE 00 Medical DEBORAH 14 Branch DAY SENSOR) Kit flash 2023-0 Yes [id number] 1{kit} 1 Kit Unive rs glucose 6-28 CONTINUOUS ity of sensor 00:00: . [place] (FREESTYLE 00 Medical DEBORAH 14 Branch DAY SENSOR) Kit flash 2023-0 Yes [id number] 1{kit} 1 Kit Unive rs glucose 6-28 CONTINUOUS ity of sensor 00:00: . [place] (FREESTYLE 00 Medical DEBORAH 14 Branch DAY SENSOR) Kit flash 2023-0 Yes [id number] 1{kit} 1 Kit Unive rs glucose 6-28 CONTINUOUS ity of sensor 00:00: . [place] (FREESTYLE 00 Medical DEBORAH 14 Branch DAY SENSOR) Kit flash 2023-0 Yes [id number] 1{kit} 1 Kit Unive rs glucose 6-28 CONTINUOUS ity of sensor 00:00: . [place] (FREESTYLE 00 Medical DEBORAH 14 Branch DAY SENSOR) Kit flash 2023-0 Yes [id number] 1{kit} 1 Kit Unive rs glucose 6-28 CONTINUOUS ity of sensor 00:00: . [place] (FREESTYLE 00 Medical DEBORAH 14 Branch DAY SENSOR) Kit flash 2023-0 Yes [id number] 1{kit} 1 Kit Unive rs glucose 6-28 CONTINUOUS ity of sensor 00:00: . [place] (FREESTYLE 00 Medical DEBORAH 14 Branch DAY SENSOR) Kit flash 2023-0 Yes [id number] 1{kit} 1 Kit Unive rs glucose 6-28 CONTINUOUS ity of sensor 00:00: . [place] (FREESTYLE 00 Medical DEBORAH 14 Branch DAY SENSOR) Kit flash 2023-0 Yes [id number] 1{kit} 1 Kit Unive rs glucose 6-28 CONTINUOUS ity of sensor 00:00: . [place] (FREESTYLE 00 Medical DEBORAH 14 Branch DAY SENSOR) Kit flash 2023-0 Yes [id number] 1{kit} 1 Kit Unive rs glucose 6-28 CONTINUOUS ity of sensor 00:00: . [place] (FREESTYLE 00 Medical DEBORAH 14 Branch DAY SENSOR) Kit flash 2023-0 2023- No [id number] 1{kit} 1 Kit Univ ers glucose 6-28 10-24 CONTINUOUS ity o f sensor 00:00: 00:00 . [place] (FREESTYLE 00 :00 Medical DEBORAH 14 Branch DAY SENSOR) Kit neomycin-po 2022-0 2023- No [id number] 3[drp] Place 3 Univers lymyxin-hyd 6-28 07-24 Drops in ity of rocortisone 00:00: 00:00 right ear [place] otic 00 :00 4 (four) Medical solution times Branch daily. neomycin-po 2022-0 2023- No [id number] 3[drp] Place 3 Univers lymyxin-hyd 6-28 07-24 Drops in ity of rocortisone 00:00: 00:00 right ear [place] otic 00 :00 4 (four) Medical solution times Branch daily. neomycin-po 2022- No [id number] 3[drp] Place 3 [facility] lymyxin-hyd 6-28 07-24 Drops in ity of rocortisone 00:00: 00:00 right ear [place] otic 00 :00 4 (four) Medical solution times Branch daily. JANUMET XR 2022- No TAKE 2 [facility] ers 50-1,000 mg 6-28 07-06 TABLETS BY i ty of per tablet 00:00: 00:00 MOUTH [place] 00 :00 EVERY DAY Medical Branch atorvastati 2022- No 10mg Take 10 mg [facility] n (LIPITOR) 6-20 06-20 by mouth ity of 10 mg 10:09: 00:00 at [place] tablet 10 :00 bedtime. Medical Branch CYCLOBENZAP 0 Yes [id number] TAKE 1 [facility] RINE 5 mg 6-20 TABLET BY ity o f tablet 00:00: MOUTH [place] TWICE Medical DAILY Branch CYCLOBENZAP 0 Yes [id number] TAKE 1 [facility] RINE 5 mg 6-20 TABLET BY ity o f tablet 00:00: MOUTH [place] TWICE Medical DAILY Branch LOVASTATIN 2022-0 Yes [id number] TAKE 1 U nivers 40 mg 6-20 TABLET BY ity of tablet 00:00: MOUTH WITH [place] EVENING Medical MEAL Branch CYCLOBENZAP 0 Yes [id number] TAKE 1 [facility] RINE 5 mg 6-20 TABLET BY ity o f tablet 00:00: MOUTH [place] TWICE Medical DAILY Branch LOVASTATIN 2022-0 Yes [id number] TAKE 1 U nivers 40 mg 6-20 TABLET BY ity of tablet 00:00: MOUTH WITH [place] EVENING Medical MEAL Branch CYCLOBENZAP 0 Yes [id number] TAKE 1 [facility] RINE 5 mg 6-20 TABLET BY ity o f tablet 00:00: MOUTH [place] TWICE Medical DAILY Branch LOVASTATIN 2022-0 Yes [id number] TAKE 1 U nivers 40 mg 6-20 TABLET BY ity of tablet 00:00: MOUTH WITH [place] EVENING Medical MEAL Branch CYCLOBENZAP Yes [id number] TAKE 1 [facility] RINE 5 mg 6-20 TABLET BY ity o f tablet 00:00: MOUTH TWICE Medical DAILY Branch LOVASTATIN 2023-0 Yes [id number] TAKE 1 U nivers 40 mg 6-20 TABLET BY ity of tablet 00:00: MOUTH WITH EVENING Medical MEAL Branch CYCLOBENZAP 2022-0 Yes [id number] TAKE 1 [facility] RINE 5 mg 6-20 TABLET BY ity o f tablet 00:00: MOUTH TWICE Medical DAILY Branch LOVASTATIN 2023-0 Yes [id number] TAKE 1 [facility] nivers 40 mg 6-20 TABLET BY ity of tablet 00:00: MOUTH WITH EVENING Medical MEAL Branch CYCLOBENZAP 2022-0 Yes [id number] TAKE 1 [facility] RINE 5 mg 6-20 TABLET BY ity o f tablet 00:00: MOUTH TWICE Medical DAILY Branch LOVASTATIN 3-0 Yes [id number] TAKE 1 [facility] nivers 40 mg 6-20 TABLET BY ity of tablet 00:00: MOUTH WITH EVENING Medical MEAL Branch CYCLOBENZAP 2022-0 Yes [id number] TAKE 1 [facility] RINE 5 mg 6-20 TABLET BY ity o f tablet 00:00: MOUTH TWICE Medical DAILY Branch LOVASTATIN 3-0 Yes [id number] TAKE 1 [facility] nivers 40 mg 6-20 TABLET BY ity of tablet 00:00: MOUTH WITH EVENING Medical MEAL Branch CYCLOBENZAP 2022-0 Yes [id number] TAKE 1 [facility] RINE 5 mg 6-20 TABLET BY ity o f tablet 00:00: MOUTH TWICE Medical DAILY Branch LOVASTATIN 2023-0 Yes [id number] TAKE 1 [facility] nivers 40 mg 6-20 TABLET BY ity of tablet 00:00: [facility] WITH [place] EVENING Medical MEAL Branch CYCLOBENZAP 3-0 Yes [id number] TAKE 1 [facility] RINE 5 mg 6-20 TABLET BY ity o f tablet 00:00: MOUTH TWICE Medical DAILY Branch CYCLOBENZAP 2023-0 Yes [id number] TAKE 1 [facility] RINE 5 mg 6-20 TABLET BY ity o f tablet 00:00: MOUTH [place] TWICE Medical DAILY Branch CYCLOBENZAP 2023-0 Yes [id number] TAKE 1 [facility] RINE 5 mg 6-20 TABLET BY ity o f tablet 00:00: MOUTH [place] TWICE Medical DAILY Branch CYCLOBENZAP 3-0 Yes [id number] TAKE 1 [facility] RINE 5 mg 6-20 TABLET BY ity o f tablet 00:00: MOUTH [place] 00 TWICE Medical DAILY Branch CYCLOBENZAP 2022-0 Yes [id number] TAKE 1 [facility] RINE 5 mg 6-20 TABLET BY ity o f tablet 00:00: [facility] 00 TWICE Medical DAILY Branch CYCLOBENZAP 2022-0 Yes [id number] TAKE 1 [facility] RINE 5 mg 6-20 TABLET BY ity o f tablet 00:00: [facility] 00 TWICE Medical DAILY Branch CYCLOBENZAP 2022-0 3- No [id number] TAKE 1 [facility] RINE 5 mg 6-20 07-13 TABLET BY ity of tablet 00:00: 00:00 [facility] 00 :00 TWICE Medical DAILY Branch CYCLOBENZAP 2022-0 3- No [id number] TAKE 1 [facility] RINE 5 mg 6-20 07-13 TABLET BY ity of tablet 00:00: 00:00 [facility] 00 :00 TWICE Medical DAILY Branch CYCLOBENZAP 2022-0 2022- No [id number] TAKE 1 [facility] RINE 5 mg 6-20 07-13 TABLET BY ity of tablet 00:00: 00:00 [facility] 00 :00 TWICE Medical DAILY Branch CYCLOBENZAP 2022-0 3- No [id number] TAKE 1 [facility] RINE 5 mg 6-20 07-13 TABLET BY ity of tablet 00:00: 00:00 [facility] 00 :00 TWICE Medical DAILY Branch CYCLOBENZAP 2022-0 2022- No [id number] TAKE 1 [facility] RINE 5 mg 6-20 07-13 TABLET BY ity of tablet 00:00: 00:00 [facility] 00 :00 TWICE Medical DAILY Branch LOVASTATIN 2022-0 3- No [id number] TAKE 1 [facility] 40 mg 6-20 07-06 TABLET BY ity of tablet 00:00: 00:[place] 00 :[place] EVENING Medical MEAL Branch AMITRIPTYLI 2022-0 Yes TAKE 1 [facility] ers [place] 25 mg 6-02 TABLET BY ity of tablet 00:00: MOUTH AT [place] BEDTIME Medical Branch AMITRIPTYLI 2022-0 Yes TAKE 1 [facility] ers [place] 25 mg 6-02 TABLET BY ity of tablet 00:00: MOUTH AT [place] [address] BEDTIME Medical Branch AMITRIPTYLI 2022-0 Yes TAKE 1 [facility] ers [place] 25 mg 6-02 TABLET BY ity of tablet 00:00: [facility] AT [place] [address] BEDTIME Medical Branch AMITRIPTYLI 2022-0 Yes TAKE 1 [facility] ers [place] 25 mg 6-02 TABLET BY ity of tablet 00:00: MOUTH AT [place] BEDTIME Medical Branch AMITRIPTYLI 2022-0 Yes TAKE 1 [facility] ers [place] 25 mg 6-02 TABLET BY ity of tablet 00:00: MOUTH AT [place] BEDTIME Medical Branch AMITRIPTYLI 2022-0 Yes TAKE 1 [facility] ers [place] 25 mg 6-02 TABLET BY ity of tablet 00:00: MOUTH AT [place] BEDTIME Medical Branch AMITRIPTYLI 2022-0 Yes TAKE 1 [facility] ers [place] 25 mg 6-02 TABLET BY ity of tablet 00:00: MOUTH AT [place] BEDTIME Medical Branch AMITRIPTYLI 2022-0 Yes TAKE 1 [facility] ers [place] 25 mg 6-02 TABLET BY ity of tablet 00:00: MOUTH AT [place] BEDTIME Medical Branch AMITRIPTYLI 2022-0 Yes TAKE 1 [facility] ers [place] 25 mg 6-02 TABLET BY ity of tablet 00:00: MOUTH AT [place] BEDTIME Medical Branch AMITRIPTYLI 2022-0 Yes TAKE 1 [facility] ers [place] 25 mg 6-02 TABLET BY ity of tablet 00:00: MOUTH AT [place] BEDTIME Medical Branch AMITRIPTYLI 2022-0 Yes TAKE 1 [facility] ers [place] 25 mg 6-02 TABLET BY ity of tablet 00:00: MOUTH AT [place] BEDTIME Medical Branch AMITRIPTYLI 2022-0 3- No TAKE 1 [facility] vers [place] 25 mg 6-02 07-06 TABLET BY ity o f tablet 00:00: 00:00 MOUTH AT [place] 00 :00 BEDTIME Medical Branch CYCLOBENZAP 3-0 Yes [id number] TAKE 1 [facility] RINE 5 mg 5-22 TABLET BY ity o f tablet 00:00: MOUTH [place] [address] TWICE Medical DAILY Branch CYCLOBENZAP 3-0 Yes [id number] TAKE 1 [facility] RINE 5 mg 5-22 TABLET BY ity o f tablet 00:00: MOUTH [place] 00 TWICE Medical DAILY Branch CYCLOBENZAP 3-0 Yes [id number] TAKE 1 [facility] RINE 5 mg 5-22 TABLET BY ity o f tablet 00:00: MOUTH [place] 00 TWICE Medical DAILY Branch CYCLOBENZAP 3-0 2023- No [id number] TAKE 1 [facility] RINE 5 mg 5-22 06-20 TABLET BY ity of tablet 00:00: 00:00 MOUTH [place] 00 :00 TWICE Medical DAILY Branch pantoprazol 2023-0 2023- No 40mg Take 40 mg Univers e 40 mg EC 5-18 05-18 by mouth ity of tablet 09:28: 00:00 daily. [place] 49 :00 Medical Branch PANTOPRAZOL 2023-0 Yes TAKE 1 Univ ers E 40 mg EC 5-18 TABLET BY ity of tablet 00:00: [facility] 00 EVERY DAY Medical Branch PANTOPRAZOL 3-0 Yes TAKE 1 Univ ers E 40 mg EC 5-18 TABLET BY ity of tablet 00:00: [facility] 00 EVERY DAY Medical Branch PANTOPRAZOL 3-0 Yes TAKE 1 Univ ers E 40 mg EC 5-18 TABLET BY ity of tablet 00:00: [facility] 00 EVERY DAY Medical Branch PANTOPRAZOL 3-0 Yes TAKE 1 Univ ers E 40 mg EC 5-18 TABLET BY ity of tablet 00:00: [facility] 00 EVERY DAY Medical Branch PANTOPRAZOL 3-0 Yes TAKE 1 Univ ers E 40 mg EC 5-18 TABLET BY ity of tablet 00:00: [facility] 00 EVERY DAY Medical Branch PANTOPRAZOL 2023-0 Yes TAKE 1 [facility] ers E 40 mg EC 5-18 TABLET BY ity of tablet 00:00: [facility] 00 EVERY DAY Medical Branch PANTOPRAZOL 3-0 Yes TAKE 1 Univ ers E 40 mg EC 5-18 TABLET BY ity of tablet 00:00: [facility] 00 EVERY DAY Medical Branch PANTOPRAZOL 2023-0 Yes TAKE 1 [facility] ers E 40 mg EC 5-18 TABLET BY ity of tablet 00:00: [facility] 00 EVERY DAY Medical Branch PANTOPRAZOL 2023-0 Yes TAKE 1 [facility] ers E 40 mg EC 5-18 TABLET BY ity of tablet 00:00: [facility] 00 EVERY DAY Medical Branch PANTOPRAZOL 2023-0 Yes TAKE 1 [facility] ers E 40 mg EC 5-18 TABLET BY ity of tablet 00:00: [facility] 00 EVERY DAY Medical Branch PANTOPRAZOL 2023-0 Yes TAKE 1 [facility] ers E 40 mg EC 5-18 TABLET BY ity of tablet 00:00: [facility] 00 EVERY DAY Medical Branch PANTOPRAZOL 2023-0 Yes TAKE 1 [facility] ers E 40 mg EC 5-18 TABLET BY ity of tablet 00:00: [facility] 00 EVERY DAY Medical Branch PANTOPRAZOL 2023-0 Yes TAKE 1 [facility] ers E 40 mg EC 5-18 TABLET BY ity of tablet 00:00: MOUTH [place] 00 EVERY DAY Medical Branch PANTOPRAZOL 2022-0 2022- No TAKE 1 [facility] vers E 40 mg EC 5-18 - TABLET BY ity of tablet 00:00: 00:00 MOUTH [place] 00 :00 EVERY DAY Medical Branch fenofibrate 2022-0 Yes [id number] 54mg Take 1 [facility] 54 mg 4-26 tablet by ity of tablet 00:00: mouth in [place] 00 the Medical morning. Branch fenofibrate 2022-0 Yes [id number] 54mg Take 1 [facility] 54 mg 4-26 tablet by ity of tablet 00:00: mouth in [place] 00 the Medical morning. Branch fenofibrate 2022-0 Yes [id number] 54mg Take 1 [facility] 54 mg 4-26 tablet by ity of tablet 00:00: mouth in [place] the Medical morning. Branch fenofibrate 2022-0 Yes [id number] 54mg Take 1 [facility] 54 mg 4-26 tablet by ity of tablet 00:00: mouth in [place] the Medical morning. Branch fenofibrate 2022-0 Yes [id number] 54mg Take 1 [facility] 54 mg 4-26 tablet by ity of tablet 00:00: mouth in [place] 00 the Medical morning. Branch fenofibrate 2022-0 Yes [id number] 54mg Take 1 [facility] 54 mg 4-26 tablet by ity of tablet 00:00: mouth in [place] the Medical morning. Branch fenofibrate 2022-0 Yes [id number] 54mg Take 1 [facility] 54 mg 4-26 tablet by ity of tablet 00:00: mouth in [place] 00 the Medical morning. Branch fenofibrate 2022-0 Yes [id number] 54mg Take 1 [facility] 54 mg 4-26 tablet by ity of tablet 00:00: mouth in [place] 00 the Medical morning. Branch fenofibrate 2022-0 Yes [id number] 54mg Take 1 [facility] 54 mg 4-26 tablet by ity of tablet 00:00: mouth in [place] 00 the Medical morning. Branch fenofibrate 2022-0 Yes [id number] 54mg Take 1 [facility] 54 mg 4-26 tablet by ity of tablet 00:00: mouth in [place] 00 the Medical morning. Branch fenofibrate 2022-0 Yes [id number] 54mg Take 1 [facility] 54 mg 4-26 tablet by ity of tablet 00:00: mouth in [place] 00 the Medical morning. Branch fenofibrate 2022-0 Yes [id number] 54mg Take 1 [facility] 54 mg 4-26 tablet by ity of tablet 00:00: mouth in [place] 00 the Medical morning. Branch fenofibrate 2022-0 Yes [id number] 54mg Take 1 [facility] 54 mg 4-26 tablet by ity of tablet 00:00: mouth in [place] 00 the Medical morning. Branch fenofibrate 2022-0 Yes [id number] 54mg Take 1 [facility] 54 mg 4-26 tablet by ity of tablet 00:00: mouth in [place] 00 the Medical morning. Branch fenofibrate 2022-0 Yes [id number] 54mg Take 1 [facility] 54 mg 4-26 tablet by ity of tablet 00:00: mouth in [place] 00 the Medical morning. Branch fenofibrate 2022-0 3- No [id number] 54mg Take 1 [facility] 54 mg 4-26 07-06 tablet by ity of tablet 00:00: 00:00 mouth in [place] 00 :00 the Medical morning. Branch CYCLOBENZAP 2022-0 Yes [id number] TAKE 1 [facility] RINE 5 mg 4-24 TABLET BY ity o f tablet 00:00: MOUTH [place] 00 TWICE Medical DAILY Branch CYCLOBENZAP 2022-0 Yes [id number] TAKE 1 [facility] RINE 5 mg 4-24 TABLET BY ity o f tablet 00:00: MOUTH [place] 00 TWICE Medical DAILY Branch CYCLOBENZAP 2022-0 Yes [id number] TAKE 1 [facility] RINE 5 mg 4-24 TABLET BY ity o f tablet 00:00: MOUTH [place] 00 TWICE Medical DAILY Branch CYCLOBENZAP 2022-0 Yes [id number] TAKE 1 [facility] RINE 5 mg 4-24 TABLET BY ity o f tablet 00:00: MOUTH [place] 00 TWICE Medical DAILY Branch CYCLOBENZAP 2022-0 3- No [id number] TAKE 1 [facility] RINE 5 mg 4-24 05-22 TABLET BY ity of tablet 00:00: 00:00 MOUTH [place] 00 :00 TWICE Medical DAILY Branch rivastigmin 2022-0 Yes [id number] 3mg Take 1 [facility] e tartrate 4-17 capsule by ity of 3 mg 00:00: mouth [place] capsule 00 every Medical morning Branch and evening. rivastigmin 2022-0 Yes [id number] 3mg Take 1 [facility] e tartrate 4-17 capsule by ity of 3 mg 00:00: mouth [place] capsule 00 every Medical morning Branch and evening. rivastigmin 2022-0 Yes [id number] 3mg Take 1 [facility] e tartrate 4-17 capsule by ity of 3 mg 00:00: mouth [place] capsule 00 every Medical morning Branch and evening. rivastigmin 2022-0 Yes [id number] 3mg Take 1 [facility] e tartrate 4-17 capsule by ity of 3 mg 00:00: mouth [place] capsule 00 every Medical morning Branch and evening. rivastigmin 2022-0 Yes [id number] 3mg Take 1 [facility] e tartrate 4-17 capsule by ity of 3 mg 00:00: mouth [place] capsule 00 every Medical morning Branch and evening. rivastigmin 2022-0 Yes [id number] 3mg Take 1 [facility] e tartrate 4-17 capsule by ity of 3 mg 00:00: mouth [place] capsule 00 every Medical morning Branch and evening. rivastigmin 2022-0 Yes [id number] 3mg Take 1 [facility] e tartrate 4-17 capsule by ity of 3 mg 00:00: mouth [place] capsule 00 every Medical morning Branch and evening. rivastigmin 2022-0 Yes [id number] 3mg Take 1 [facility] e tartrate 4-17 capsule by ity of 3 mg 00:00: mouth [place] capsule 00 every Medical morning Branch and evening. rivastigmin 2022-0 Yes [id number] 3mg Take 1 [facility] e tartrate 4-17 capsule by ity of 3 mg 00:00: mouth [place] capsule 00 every Medical morning Branch and evening. rivastigmin 2022-0 Yes [id number] 3mg Take 1 [facility] e tartrate 4-17 capsule by ity of 3 mg 00:00: mouth [place] capsule 00 every Medical morning Branch and evening. rivastigmin 2022-0 Yes [id number] 3mg Take 1 [facility] e tartrate 4-17 capsule by ity of 3 mg 00:00: mouth [place] capsule 00 every Medical morning Branch and evening. rivastigmin 2022-0 Yes [id number] 3mg Take 1 [facility] e tartrate 4-17 capsule by ity of 3 mg 00:00: mouth [place] capsule 00 every Medical morning Branch and evening. rivastigmin 2022-0 Yes [id number] 3mg Take 1 [facility] e tartrate 4-17 capsule by ity of 3 mg 00:00: mouth [place] capsule 00 every Medical morning Branch and evening. rivastigmin 2022-0 Yes [id number] 3mg Take 1 [facility] e tartrate 4-17 capsule by ity of 3 mg 00:00: mouth [place] capsule 00 every Medical morning Branch and evening. rivastigmin 2022-0 Yes [id number] 3mg Take 1 [facility] e tartrate 4-17 capsule by ity of 3 mg 00:00: mouth [place] capsule 00 every Medical morning Branch and evening. rivastigmin 2022-0 Yes [id number] 3mg Take 1 [facility] e tartrate 4-17 capsule by ity of 3 mg 00:00: mouth [place] capsule 00 every Medical morning Branch and evening. rivastigmin 2022-0 Yes [id number] 3mg Take 1 [facility] e tartrate 4-17 capsule by ity of 3 mg 00:00: mouth [place] capsule 00 every Medical morning Branch and evening. rivastigmin 2022-0 Yes [id number] 3mg Take 1 [facility] e tartrate 4-17 capsule by ity of 3 mg 00:00: mouth [place] capsule 00 every Medical morning Branch and evening. rivastigmin 2022-0 Yes [id number] 3mg Take 1 [facility] e tartrate 4-17 capsule by ity of 3 mg 00:00: mouth [place] capsule 00 every Medical morning Branch and evening. rivastigmin 2022-0 Yes [id number] 3mg Take 1 [facility] e tartrate 4-17 capsule by ity of 3 mg 00:00: mouth [place] capsule 00 every Medical morning Branch and evening. rivastigmin 2022-0 Yes [id number] 3mg Take 1 [facility] e tartrate 4-17 capsule by ity of 3 mg 00:00: mouth [place] capsule 00 every Medical morning Branch and evening. rivastigmin 2022-0 2023- No [id number] 3mg Take 1 [facility] e tartrate 4-17 07-06 capsule by it y of 3 mg 00:00: 00:00 mouth [place] capsule 00 :00 every Medical morning Branch and evening. rivastigmin 3-0 2023- No [id number] 3mg Take 1 [facility] e tartrate 4-17 04-17 capsule by it y of 3 mg 00:00: 00:00 mouth [place] capsule 00 :00 every Medical morning Branch and evening. rivastigmin 2022- No [id number] 3mg Take 1 [facility] e tartrate 4-17 -17 capsule by it y of 3 mg 00:00: 00:00 mouth [place] capsule 00 :00 every Medical morning Branch and evening. SITagliptin 2022- No Take by [facility] [place] -metformin 4-04 04-04 mouth. ity of (JANUMET 17:27: 00:00 Indication [place] XR) 39 :00 s: 2 tabs Medical 50-1,000 mg BID Branch per tablet JANUMET XR Yes TAKE 2 Unive rs 50-1,000 mg 4-04 TABLETS BY it y of per tablet 00:00: MOUTH [place] 00 EVERY DAY Medical Branch JANUMET XR Yes TAKE 2 Unive rs 50-1,000 mg 4-04 TABLETS BY it y of per tablet 00:00: MOUTH [place] 00 EVERY DAY Medical Branch JANUMET XR Yes TAKE 2 Unive rs 50-1,000 mg 4-04 TABLETS BY it y of per tablet 00:00: MOUTH [place] 00 EVERY DAY Medical Branch JANUMET XR Yes TAKE 2 Unive rs 50-1,000 mg 4-04 TABLETS BY it y of per tablet 00:00: MOUTH [place] 00 EVERY DAY Medical Branch JANUMET XR Yes TAKE 2 Unive rs 50-1,000 mg 4-04 TABLETS BY it y of per tablet 00:00: MOUTH [place] 00 EVERY DAY Medical Branch JANUMET XR Yes TAKE 2 Unive rs 50-1,000 mg 4-04 TABLETS BY it y of per tablet 00:00: MOUTH [place] 00 EVERY DAY Medical Branch JANUMET XR 0 Yes TAKE 2 Unive rs 50-1,000 mg 4-04 TABLETS BY it y of per tablet 00:00: MOUTH [place] EVERY DAY Medical Branch JANUMET XR 0 Yes TAKE 2 Unive rs 50-1,000 mg 4-04 TABLETS BY it y of per tablet 00:00: MOUTH [place] EVERY DAY Medical Branch JANUMET XR Yes TAKE 2 Unive rs 50-1,000 mg 4-04 TABLETS BY it y of per tablet 00:00: MOUTH [place] EVERY DAY Medical Branch JANUMET XR 2023-0 Yes TAKE 2 Unive rs 50-1,000 mg 4-04 TABLETS BY it y of per tablet 00:00: MOUTH EVERY DAY Medical Branch JANUMET XR 2022-0 Yes TAKE 2 Unive rs 50-1,000 mg 4-04 TABLETS BY it y of per tablet 00:00: MOUTH EVERY DAY Medical Branch JANUMET XR 2022-0 Yes TAKE 2 Unive rs 50-1,000 mg 4-04 TABLETS BY it y of per tablet 00:00: MOUTH EVERY DAY Medical Branch JANUMET XR 2022-0 Yes TAKE 2 Unive rs 50-1,000 mg 4-04 TABLETS BY it y of per tablet 00:00: MOUTH EVERY DAY Medical Branch JANUMET XR 2022-0 Yes TAKE 2 Unive rs 50-1,000 mg 4-04 TABLETS BY it y of per tablet 00:00: EVERY DAY Medical Branch JANUMET XR 3-0 Yes TAKE 2 Unive rs 50-1,000 mg 4-04 TABLETS BY it y of per tablet 00:00: MOUTH EVERY DAY Medical Branch JANUMET XR 2022-0 Yes TAKE 2 Unive rs 50-1,000 mg 4-04 TABLETS BY it y of per tablet 00:00: EVERY DAY Medical Branch JANUMET XR 3-0 Yes TAKE 2 Unive rs 50-1,000 mg 4-04 TABLETS BY it y of per tablet 00:00: EVERY DAY Medical Branch JANUMET XR 3-0 Yes TAKE 2 Unive rs 50-1,000 mg 4-04 TABLETS BY it y of per tablet 00:00: EVERY DAY Medical Branch JANUMET XR 3-0 Yes TAKE 2 Unive rs 50-1,000 mg 4-04 TABLETS BY it y of per tablet 00:00: MOUTH EVERY DAY Medical Branch JANUMET XR 3-0 Yes TAKE 2 Unive rs 50-1,000 mg 4-04 TABLETS BY it y of per tablet 00:00: MOUTH EVERY DAY Medical Branch JANUMET XR 3-0 Yes TAKE 2 Unive rs 50-1,000 mg 4-04 TABLETS BY it y of per tablet 00:00: EVERY DAY Medical Branch JANUMET XR 3-0 Yes TAKE 2 Unive rs 50-1,000 mg 4-04 TABLETS BY it y of per tablet 00:00: MOUTH [place] 00 EVERY DAY Medical Branch JANUMET XR 2022-0 2022- No TAKE 2 Univ ers 50-1,000 mg 4-04 06-28 TABLETS BY i ty of per tablet 00:00: 00:00 MOUTH [place] 00 :00 EVERY DAY Medical Branch topiramate 3-0 Yes TAKE 1 Unive rs 50 mg 3-27 TABLET BY ity of tablet 00:00: MOUTH [place] 00 EVERY DAY Medical Branch topiramate 3-0 Yes TAKE 1 Unive rs 50 mg 3-27 TABLET BY ity of tablet 00:00: MOUTH [place] 00 EVERY DAY Medical Branch topiramate 2022-0 Yes TAKE 1 Unive rs 50 mg 3-27 TABLET BY ity of tablet 00:00: MOUTH [place] 00 EVERY DAY Medical Branch topiramate 3-0 Yes TAKE 1 Unive rs 50 mg 3-27 TABLET BY ity of tablet 00:00: MOUTH 00 EVERY DAY Medical Branch topiramate 3-0 Yes TAKE 1 Unive rs 50 mg 3-27 TABLET BY ity of tablet 00:00: MOUTH [place] 00 EVERY DAY Medical Branch topiramate 3-0 Yes TAKE 1 Unive rs 50 mg 3-27 TABLET BY ity of tablet 00:00: MOUTH [place] 00 EVERY DAY Medical Branch topiramate 3-0 Yes TAKE 1 Unive rs 50 mg 3-27 TABLET BY ity of tablet 00:00: MOUTH [place] 00 EVERY DAY Medical Branch topiramate 3-0 Yes TAKE 1 Unive rs 50 mg 3-27 TABLET BY ity of tablet 00:00: MOUTH [place] 00 EVERY DAY Medical Branch topiramate 3-0 Yes TAKE 1 Unive rs 50 mg 3-27 TABLET BY ity of tablet 00:00: MOUTH [place] 00 EVERY DAY Medical Branch topiramate 3-0 Yes TAKE 1 Unive rs 50 mg 3-27 TABLET BY ity of tablet 00:00: MOUTH [place] 00 EVERY DAY Medical Branch topiramate 3-0 Yes TAKE 1 Unive rs 50 mg 3-27 TABLET BY ity of tablet 00:00: MOUTH [place] 00 EVERY DAY Medical Branch topiramate 3-0 Yes TAKE 1 Unive rs 50 mg 3-27 TABLET BY ity of tablet 00:00: MOUTH [place] 00 EVERY DAY Medical Branch topiramate 3-0 Yes TAKE 1 Unive rs 50 mg 3-27 TABLET BY ity of tablet 00:00: MOUTH 00 EVERY DAY Medical Branch topiramate 2023-0 Yes TAKE 1 Unive rs 50 mg 3-27 TABLET BY ity of tablet 00:00: MOUTH 00 EVERY DAY Medical Branch topiramate 2023-0 Yes TAKE 1 Unive rs 50 mg 3-27 TABLET BY ity of tablet 00:00: MOUTH EVERY DAY Medical Branch topiramate 2023-0 Yes TAKE 1 Unive rs 50 mg 3-27 TABLET BY ity of tablet 00:00: MOUTH 00 EVERY DAY Medical Branch topiramate 2023-0 Yes TAKE 1 [facility] rs 50 mg 3-27 TABLET BY ity of tablet 00:00: [facility] 00 EVERY DAY Medical Branch topiramate 2023-0 Yes TAKE 1 Unive rs 50 mg 3-27 TABLET BY ity of tablet 00:00: [facility] EVERY DAY Medical Branch topiramate 2023-0 Yes TAKE 1 Unive rs 50 mg 3-27 TABLET BY ity of tablet 00:00: [facility] EVERY DAY Medical Branch topiramate 2023-0 Yes TAKE 1 Unive rs 50 mg 3-27 TABLET BY ity of tablet 00:00: MOUTH 00 EVERY DAY Medical Branch topiramate 2023-0 Yes TAKE 1 [facility] rs 50 mg 3-27 TABLET BY ity of tablet 00:00: [facility] 00 EVERY DAY Medical Branch topiramate 2023-0 Yes TAKE 1 Unive rs 50 mg 3-27 TABLET BY ity of tablet 00:00: [facility] EVERY DAY Medical Branch topiramate 2023-0 Yes TAKE 1 Unive rs 50 mg 3-27 TABLET BY ity of tablet 00:00: MOUTH 00 EVERY DAY Medical Branch topiramate 2023-0 Yes TAKE 1 Unive rs 50 mg 3-27 TABLET BY ity of tablet 00:00: [facility] EVERY DAY Medical Branch topiramate 2023-0 Yes TAKE 1 Unive rs 50 mg 3-27 TABLET BY ity of tablet 00:00: MOUTH 00 EVERY DAY Medical Branch topiramate 2023-0 Yes TAKE 1 Unive rs 50 mg 3-27 TABLET BY ity of tablet 00:00: [facility] 00 EVERY DAY Medical Branch topiramate 2023-0 Yes TAKE 1 Unive rs 50 mg 3-27 TABLET BY ity of tablet 00:00: MOUTH 00 EVERY DAY Medical Branch topiramate 2023-0 Yes TAKE 1 Un[facility] rs 50 mg 3-27 TABLET BY ity of tablet 00:00: MOUTH 00 EVERY DAY Medical Branch topiramate 2023-0 Yes TAKE 1 Un[facility] rs 50 mg 3-27 TABLET BY ity of tablet 00:00: MOUTH EVERY DAY Medical Branch topiramate 2023-0 Yes TAKE 1 [facility] rs 50 mg 3-27 TABLET BY ity of tablet 00:00: MOUTH EVERY DAY Medical Branch topiramate 2023-0 Yes TAKE 1 Un[facility] rs 50 mg 3-27 TABLET BY ity of tablet 00:00: [facility] EVERY DAY Medical Branch topiramate 2023-0 Yes TAKE 1 Un[facility] rs 50 mg 3-27 TABLET BY ity of tablet 00:00: [facility] EVERY DAY Medical Branch topiramate 2023-0 Yes TAKE 1 Unive rs 50 mg 3-27 TABLET BY ity of tablet 00:00: [facility] EVERY DAY Medical Branch topiramate 2023-0 Yes TAKE 1 Unive rs 50 mg 3-27 TABLET BY ity of tablet 00:00: [facility] EVERY DAY Medical Branch topiramate 2023-0 Yes TAKE 1 Unive rs 50 mg 3-27 TABLET BY ity of tablet 00:00: [facility] EVERY DAY Medical Branch topiramate 2023-0 Yes TAKE 1 Unive rs 50 mg 3-27 TABLET BY ity of tablet 00:00: [facility] EVERY DAY Medical Branch topiramate 2023-0 Yes TAKE 1 Un[facility] rs 50 mg 3-27 TABLET BY ity of tablet 00:00: [facility] EVERY DAY Medical Branch topiramate 2023-0 Yes TAKE 1 Un[facility] rs 50 mg 3-27 TABLET BY ity of tablet 00:00: MOUTH EVERY DAY Medical Branch topiramate 2023-0 Yes TAKE 1 [facility] rs 50 mg 3-27 TABLET BY ity of tablet 00:00: [facility] 00 EVERY DAY Medical Branch topiramate 2023-0 Yes TAKE 1 Unive rs 50 mg 3-27 TABLET BY ity of tablet 00:00: [facility] EVERY DAY Medical Branch topiramate 2023-0 Yes TAKE 1 Unive rs 50 mg 3-27 TABLET BY ity of tablet 00:00: MOUTH [place] 00 EVERY DAY Medical Branch topiramate 2023-0 Yes TAKE 1 Un[facility] rs 50 mg 3-27 TABLET BY ity of tablet 00:00: [facility] EVERY DAY Medical Branch topiramate 2023-0 Yes TAKE 1 Unive rs 50 mg 3-27 TABLET BY ity of tablet 00:00: [facility] EVERY DAY Medical Branch topiramate 2023-0 Yes TAKE 1 Unive rs 50 mg 3-27 TABLET BY ity of tablet 00:00: [facility] EVERY DAY Medical Branch topiramate 2023-0 Yes TAKE 1 Unive rs 50 mg 3-27 TABLET BY ity of tablet 00:00: [facility] 00 EVERY DAY Medical Branch topiramate 3-0 2023- No TAKE 1 Univ ers 50 mg 3-27 08-29 TABLET BY ity of tablet 00:00: 00:00 [facility] 00 :00 EVERY DAY Medical Branch topiramate 2023-0 3- No TAKE 1 [facility] ers 50 mg 3-27 - TABLET BY ity of tablet 00:00: 00:00 [facility] 00 :00 EVERY DAY Medical Branch LOVASTATIN 2023-0 Yes [id number] TAKE 1 [facility] nivers 40 mg 3-21 TABLET BY ity of tablet 00:00: [facility] [place] EVENING Medical MEAL Branch CYCLOBENZAP 3-0 Yes [id number] TAKE 1 [facility] RINE 5 mg 3-21 TABLET BY ity o f tablet 00:00: MOUTH [place] TWICE Medical DAILY Branch LOVASTATIN 2023-0 Yes [id number] TAKE 1 [facility] nivers 40 mg 3-21 TABLET BY ity of tablet 00:00: [facility] [place] EVENING Medical MEAL Branch CYCLOBENZAP 3-0 Yes [id number] TAKE 1 [facility] RINE 5 mg 3-21 TABLET BY ity o f tablet 00:00: MOUTH [place] TWICE Medical DAILY Branch LOVASTATIN 2023-0 Yes [id number] TAKE 1 [facility]ivers 40 mg 3-21 TABLET BY ity of tablet 00:00: [facility] [place] EVENING Medical MEAL Branch CYCLOBENZAP 2023-0 Yes [id number] TAKE 1 [facility] RINE 5 mg 3-21 TABLET BY ity o f tablet 00:00: MOUTH [place] TWICE Medical DAILY Branch LOVASTATIN 2023-0 Yes [id number] TAKE 1 [facility] 40 mg 3-21 TABLET BY ity of tablet 00:00: MOUTH WITH EVENING Medical MEAL Branch CYCLOBENZAP 3-0 Yes [id number] TAKE 1 [facility] RINE 5 mg 3-21 TABLET BY ity o f tablet 00:00: MOUTH TWICE Medical DAILY Branch LOVASTATIN 2023-0 Yes [id number] TAKE 1 [facility]ivers 40 mg 3-21 TABLET BY ity of tablet 00:00: MOUTH WITH EVENING Medical MEAL Branch CYCLOBENZAP 3-0 Yes [id number] TAKE 1 [facility] RINE 5 mg 3-21 TABLET BY ity o f tablet 00:00: MOUTH TWICE Medical DAILY Branch LOVASTATIN 2023-0 Yes [id number] TAKE 1 [facility]ivers 40 mg 3-21 TABLET BY ity of tablet 00:00: MOUTH WITH [place] EVENING Medical MEAL Branch CYCLOBENZAP 2022-0 Yes [id number] TAKE 1 [facility] RINE 5 mg 3-21 TABLET BY ity o f tablet 00:00: MOUTH TWICE Medical DAILY Branch LOVASTATIN 2023-0 Yes [id number] TAKE 1 [facility] 40 mg 3-21 TABLET BY ity of tablet 00:00: MOUTH WITH [place] EVENING Medical MEAL Branch CYCLOBENZAP 3-0 Yes [id number] TAKE 1 [facility] RINE 5 mg 3-21 TABLET BY ity o f tablet 00:00: MOUTH TWICE Medical DAILY Branch LOVASTATIN 2023-0 Yes [id number] TAKE 1 [facility] 40 mg 3-21 TABLET BY ity of tablet 00:00: MOUTH WITH [place] EVENING Medical MEAL Branch CYCLOBENZAP 3-0 Yes [id number] TAKE 1 [facility] RINE 5 mg 3-21 TABLET BY ity o f tablet 00:00: MOUTH TWICE Medical DAILY Branch LOVASTATIN 2023-0 Yes [id number] TAKE 1 [facility]ivers 40 mg 3-21 TABLET BY ity of tablet 00:00: MOUTH WITH [place] EVENING Medical MEAL Branch CYCLOBENZAP 3-0 Yes [id number] TAKE 1 [facility] RINE 5 mg 3-21 TABLET BY ity o f tablet 00:00: MOUTH TWICE Medical DAILY Branch LOVASTATIN 2023-0 Yes [id number] TAKE 1 [facility]ivers 40 mg 3-21 TABLET BY ity of tablet 00:00: MOUTH WITH [place] EVENING Medical MEAL Branch CYCLOBENZAP 3-0 Yes [id number] TAKE 1 [facility] RINE 5 mg 3-21 TABLET BY ity o f tablet 00:00: MOUTH TWICE Medical DAILY Branch LOVASTATIN 3-0 Yes [id number] TAKE 1 [facility]ivers 40 mg 3-21 TABLET BY ity of tablet 00:00: MOUTH WITH EVENING Medical MEAL Branch LOVASTATIN 2022-0 Yes [id number] TAKE 1 [facility]ivers 40 mg 3-21 TABLET BY ity of tablet 00:00: MOUTH WITH EVENING Medical MEAL Branch LOVASTATIN 2022-0 Yes [id number] TAKE 1 [facility]ivers 40 mg 3-21 TABLET BY ity of tablet 00:00: MOUTH WITH EVENING Medical MEAL Branch LOVASTATIN 2022-0 Yes [id number] TAKE 1 [facility]ivers 40 mg 3-21 TABLET BY ity of tablet 00:00: MOUTH WITH EVENING Medical MEAL Branch LOVASTATIN 2022-0 Yes [id number] TAKE 1 [facility]ivers 40 mg 3-21 TABLET BY ity of tablet 00:00: MOUTH WITH [place] EVENING Medical MEAL Branch LOVASTATIN 3-0 Yes [id number] TAKE 1 [facility] nivers 40 mg 3-21 TABLET BY ity of tablet 00:00: MOUTH WITH EVENING Medical MEAL Branch LOVASTATIN 2022-0 Yes [id number] TAKE 1 [facility]ivers 40 mg 3-21 TABLET BY ity of tablet 00:00: MOUTH WITH EVENING Medical MEAL Branch LOVASTATIN 2022-0 Yes [id number] TAKE 1 [facility]ivers 40 mg 3-21 TABLET BY ity of tablet 00:00: MOUTH WITH [place] EVENING Medical MEAL Branch LOVASTATIN 3-0 Yes [id number] TAKE 1 [facility]ivers 40 mg 3-21 TABLET BY ity of tablet 00:00: MOUTH WITH [place] EVENING Medical MEAL Branch LOVASTATIN 3-0 Yes [id number] TAKE 1 [facility]ivers 40 mg 3-21 TABLET BY ity of tablet 00:00: MOUTH WITH EVENING Medical MEAL Branch LOVASTATIN 3-0 2023- No [id number] TAKE 1 [facility] 40 mg 3-21 06-20 TABLET BY ity of tablet 00:00: 00:00 MOUTH WITH [facility] 00 :00 EVENING Medical MEAL Branch CYCLOBENZAP 2022-0 3- No [id number] TAKE 1 [facility] RINE 5 mg 3-21 04-24 TABLET BY ity of tablet 00:00: 00:00 MOUTH [place] 00 :00 TWICE Medical DAILY Branch rivastigmin 2023-0 Yes [id number] 1.5mg Take 1 Univers e tartrate 3-01 capsule by ity of 1.5 mg 00:00: mouth [place] capsule 00 every Medical morning Branch and evening. rivastigmin 2023-0 Yes [id number] 1.5mg Take 1 Univers e tartrate 3-01 capsule by ity of 1.5 mg 00:00: mouth [place] capsule 00 every Medical morning Branch and evening. rivastigmin 2023-0 Yes [id number] 1.5mg Take 1 [facility] e tartrate 3-01 capsule by ity of 1.5 mg 00:00: mouth [place] capsule 00 every Medical morning Branch and evening. rivastigmin 2023-0 Yes [id number] 1.5mg Take 1 [facility] e tartrate 3-01 capsule by ity of 1.5 mg 00:00: mouth [place] capsule 00 every Medical morning Branch and evening. rivastigmin 3-0 Yes [id number] 1.5mg Take 1 [facility] e tartrate 3-01 capsule by ity of 1.5 mg 00:00: mouth [place] capsule 00 every Medical morning Branch and evening. rivastigmin 3-0 Yes [id number] 1.5mg Take 1 [facility] e tartrate 3-01 capsule by ity of 1.5 mg 00:00: mouth [place] capsule 00 every Medical morning Branch and evening. rivastigmin 3-0 Yes [id number] 1.5mg Take 1 [facility] e tartrate 3-01 capsule by ity of 1.5 mg 00:00: mouth [place] capsule 00 every Medical morning Branch and evening. rivastigmin 2022-0 3- No [id number] 1.5mg Take 1 [facility] e tartrate 3-01 04-17 capsule by it y of 1.5 mg 00:00: 00:00 mouth [place] capsule 00 :00 every Medical morning Branch and evening. rivastigmin 3-0 2023- No [id number] 1.5mg Take 1 Univers e tartrate 3-01 04-17 capsule by it y of 1.5 mg 00:00: 00:00 mouth [place] capsule 00 :00 every Medical morning Branch and evening. AMITRIPTYLI 2022-0 Yes TAKE 1 [facility] ers NE 25 mg 2-28 TABLET BY ity of tablet 00:00: MOUTH AT [place] 00 BEDTIME Medical Branch AMITRIPTYLI 2023-0 Yes TAKE 1 [facility] [place] 25 mg 2-28 TABLET BY ity of tablet 00:00: MOUTH AT [place] [facility] Branch AMITRIPTYLI 0 Yes TAKE 1 [facility] ers NE 25 mg 2-28 TABLET BY ity of tablet 00:00: MOUTH AT [place] [facility] Branch AMITRIPTYLI 0 Yes TAKE 1 [facility] ers NE 25 mg 2-28 TABLET BY ity of tablet 00:00: MOUTH AT [place] [facility] Branch AMITRIPTYLI Yes TAKE 1 [facility] ers NE 25 mg 2-28 TABLET BY ity of tablet 00:00: MOUTH AT [place] [facility] Branch AMITRIPTYLI Yes TAKE 1 [facility] NE 25 mg 2-28 TABLET BY ity of tablet 00:00: MOUTH AT [place] [facility] AMITRIPTYLI Yes TAKE 1 [facility] NE 25 mg 2-28 TABLET BY ity of tablet 00:00: MOUTH AT [place] [facility] AMITRIPTYLI Yes TAKE 1 [facility] NE 25 mg 2-28 TABLET BY ity of tablet 00:00: MOUTH AT [place] [facility] AMITRIPTYLI Yes TAKE 1 [facility] NE 25 mg 2-28 TABLET BY ity of tablet 00:00: MOUTH AT [place] [facility] AMITRIPTYLI Yes TAKE 1 [facility] NE 25 mg 2-28 TABLET BY ity of tablet 00:00: MOUTH AT [place] [facility] AMITRIPTYLI 2022-0 Yes TAKE 1 [facility] NE 25 mg 2-28 TABLET BY ity of tablet 00:00: MOUTH AT [place] [facility] Branch AMITRIPTYLI 2022-0 Yes TAKE 1 [facility] NE 25 mg 2-28 TABLET BY ity of tablet 00:00: MOUTH AT [place] [facility] Branch AMITRIPTYLI 2022-0 Yes TAKE 1 [facility] NE 25 mg 2-28 TABLET BY ity of tablet 00:00: MOUTH AT [place] [facility] AMITRIPTYLI 2022-0 Yes TAKE 1 [facility] ers NE 25 mg 2-28 TABLET BY ity of tablet 00:00: MOUTH AT [place] [facility] Branch AMITRIPTYLI 2022-0 Yes TAKE 1 [facility] NE 25 mg 2-28 TABLET BY ity of tablet 00:00: MOUTH AT [place] 00 BEDTIME Medical Branch AMITRIPTYLI 2022-0 Yes TAKE 1 [facility] NE 25 mg 2-28 TABLET BY ity of tablet 00:00: MOUTH AT [place] BEDTIME Medical Branch AMITRIPTYLI 2022-0 Yes TAKE 1 [facility] NE 25 mg 2-28 TABLET BY ity of tablet 00:00: MOUTH AT [place] BEDTIME Medical Branch AMITRIPTYLI 2022-0 Yes TAKE 1 [facility] NE 25 mg 2-28 TABLET BY ity of tablet 00:00: MOUTH AT [place] BEDTIME Medical Branch AMITRIPTYLI 0 2022- No TAKE 1 [facility] vers NE 25 mg 2-28 - TABLET BY ity o f tablet 00:00: 00:00 MOUTH AT [place] 00 :00 BEDTIME Medical Branch CYCLOBENZAP 2022-0 Yes [id number] TAKE 1 [facility] RINE 5 mg 2-20 TABLET BY ity o f tablet 00:00: [facility] 00 TWICE Medical DAILY Branch CYCLOBENZAP 2022-0 Yes [id number] TAKE 1 [facility] RINE 5 mg 2-20 TABLET BY ity o f tablet 00:00: MOUTH [place] 00 TWICE Medical DAILY Branch CYCLOBENZAP 2022-0 Yes [id number] TAKE 1 [facility] RINE 5 mg 2-20 TABLET BY ity o f tablet 00:00: MOUTH [place] 00 TWICE Medical DAILY Branch CYCLOBENZAP 2022-0 Yes [id number] TAKE 1 [facility] RINE 5 mg 2-20 TABLET BY ity o f tablet 00:00: [facility] 00 TWICE Medical DAILY Branch CYCLOBENZAP 2022-0 2023- No [id number] TAKE 1 [facility] RINE 5 mg 2-20 03-21 TABLET BY ity of tablet 00:00: 00:00 MOUTH [place] 00 :00 TWICE Medical DAILY Branch rivastigmin 2022-0 2022- No [id number] 1{patch Apply 1 Univers e 4.6 mg/24 07-28 } Patch to ity of hour patch 00:00: 04:59 skin in [place] 00 :00 the Medical morning Branch for 30 days. rivastigmin 2022-0 3- No [id number] 1{patch Apply 1 [facility] e 4.6 mg/24 07-28 } Patch to ity of hour patch 00:00: 04:59 skin in [place] 00 :00 the Medical morning Branch for 30 days. rivastigmin 2022- No [id number] 1{patch Apply 1 [facility] e 4.6 mg/24 2-14 -17 } Patch to ity of hour patch 00:00: 04:59 skin in [place] 00 :00 the Medical morning Branch for 30 days. rivastigmin 2022- No [id number] 1{patch Apply 1 [facility] e 4.6 mg/24 2-14 -17 } Patch to ity of hour patch 00:00: 04:59 skin in [place] 00 :00 the Medical morning Branch for 30 days. rivastigmin 2022- No [id number] 1{patch Apply 1 [facility] e 4.6 mg/24 2-14 -17 } Patch to ity of hour patch 00:00: 04:59 skin in [place] 00 :00 the Medical morning Branch for 30 days. rivastigmin 2022- No [id number] 1{patch Apply 1 [facility] e 4.6 mg/24 2-14 -17 } Patch to ity of hour patch 00:00: 04:59 skin in [place] 00 :00 the Medical morning Branch for 30 days. rivastigmin 2022- No [id number] 1{patch Apply 1 [facility] e 4.6 mg/24 2-14 -17 } Patch to ity of hour patch 00:00: 04:59 skin in [place] 00 :00 the Medical morning Branch for 30 days. rivastigmin 2022- No [id number] 1{patch Apply 1 [facility] e 4.6 mg/24 2-14 -17 } Patch to ity of hour patch 00:00: 04:59 skin in [place] 00 :00 the Medical morning Branch for 30 days. rivastigmin 2022- No [id number] 1{patch Apply 1 [facility] e 4.6 mg/24 2-14 -17 } Patch to ity of hour patch 00:00: 04:59 skin in [place] 00 :00 the Medical morning Branch for 30 days. rivastigmin 2022- No [id number] 1{patch Apply 1 [facility] e 4.6 mg/24 2-14 03-01 } Patch to ity of hour patch 00:00: 00:00 skin in [place] 00 :00 the Medical morning Branch for 30 days. NaCl 0.9% Yes 1000mL at 999 Univ ers (NS) IV 1-28 mL/hr, ity of infusion 04:00: Intravenou [place] 1,000 mL 00 s, Medical CONTINUOUS Branch , Starting on Wed07/10/22 at 2200, Until Discontinu ed, Routine insulin 2022- No 4U 4 Units, Unive rs regular 07-11 Subcutaneo ity o f human 03:45: 03:09 us, ONCE, [place] (HUMULIN R) 00 :00 1 dose, On Me dical injection 4 Fri Branch Units 07/10/22 at 2145, Routine
Indicatio n for insulin: Hyperglyce [place] ceFAZolin 2022- No 1000mg 1,000 mg, Univers (ANCEF) 07-11 Slow IV ity of injection 03:00: 03:10 Push, [place] 1,000 mg 00 :00 ONCE, 1 Medical dose, On Branch 07/10/22 at 2100, STAT
Re ason for Anti-Infec tive: Documented Infection< br>Documen pablo Infection Site: Skin / Soft Tissue
Duration of Therapy: Other (see Comments) iopamidol 2022- No [id number] 100mL 100 mL, Univers (ISOVUE 07-11 Intravenou ity o f 370-500 mL) 02:00: 01:02 s, ONCE, 1 [place] injection 00 :00 dose, On Medica l 100 mL Fri Branch 07/10/22 at 2000, Routine cephALEXin 2022-0 Yes [id number] 500mg Take 1 Univers (KEFLEX) 1-27 capsule by ity o f 500 mg 00:00: mouth 4 [place] capsule 00 (four) Medical times Branch daily. cephALEXin 2022-0 Yes [id number] 500mg Take 1 Univers (KEFLEX) 1-27 capsule by ity o f 500 mg 00:00: mouth 4 [place] capsule 00 (four) Medical times Branch daily. cephALEXin 2022-0 Yes [id number] 500mg Take 1 Univers (KEFLEX) 1-27 capsule by ity o f 500 mg 00:00: mouth 4 [place] capsule 00 (four) Medical times Branch daily. cephALEXin 2023-0 Yes [id number] 500mg Take 1 Univers (KEFLEX) 1-27 capsule by ity o f 500 mg 00:00: mouth 4 [place] capsule 00 (four) Medical times Branch daily. cephALEXin 2023-0 Yes [id number] 500mg Take 1 Univers (KEFLEX) 1-27 capsule by ity o f 500 mg 00:00: mouth 4 [place] capsule 00 (four) Medical times Branch daily. cephALEXin 2023-0 Yes [id number] 500mg Take 1 Univers (KEFLEX) 1-27 capsule by ity o f 500 mg 00:00: mouth 4 [place] capsule 00 (four) Medical times Branch daily. cephALEXin 2023-0 Yes [id number] 500mg Take 1 Univers (KEFLEX) 1-27 capsule by ity o f 500 mg 00:00: mouth 4 [place] capsule 00 (four) Medical times Branch daily. cephALEXin 2023-0 Yes [id number] 500mg Take 1 Univers (KEFLEX) 1-27 capsule by ity o f 500 mg 00:00: mouth 4 [place] capsule 00 (four) Medical times Branch daily. cephALEXin 2023-0 Yes [id number] 500mg Take 1 Univers (KEFLEX) 1-27 capsule by ity o f 500 mg 00:00: mouth 4 [place] capsule 00 (four) Medical times Branch daily. cephALEXin 2023-0 Yes [id number] 500mg Take 1 Univers (KEFLEX) 1-27 capsule by ity o f 500 mg 00:00: mouth 4 [place] capsule 00 (four) Medical times Branch daily. cephALEXin 2023-0 Yes [id number] 500mg Take 1 Univers (KEFLEX) 1-27 capsule by ity o f 500 mg 00:00: mouth 4 [place] capsule 00 (four) Medical times Branch daily. cephALEXin 2023-0 Yes [id number] 500mg Take 1 Univers (KEFLEX) 1-27 capsule by ity o f 500 mg 00:00: mouth 4 [place] capsule 00 (four) Medical times Branch daily. cephALEXin 2023-0 Yes [id number] 500mg Take 1 Univers (KEFLEX) 1-27 capsule by ity o f 500 mg 00:00: mouth 4 [place] capsule 00 (four) Medical times Branch daily. cephALEXin 2023-0 Yes [id number] 500mg Take 1 Univers (KEFLEX) 1-27 capsule by ity o f 500 mg 00:00: mouth 4 [place] capsule 00 (four) Medical times Branch daily. cephALEXin 2023-0 Yes [id number] 500mg Take 1 Univers (KEFLEX) 1-27 capsule by ity o f 500 mg 00:00: mouth 4 [place] capsule 00 (four) Medical times Branch daily. cephALEXin 2023-0 Yes [id number] 500mg Take 1 Univers (KEFLEX) 1-27 capsule by ity o f 500 mg 00:00: mouth 4 [place] capsule 00 (four) Medical times Branch daily. cephALEXin 2023-0 Yes [id number] 500mg Take 1 Univers (KEFLEX) 1-27 capsule by ity o f 500 mg 00:00: mouth 4 [place] capsule 00 (four) Medical times Branch daily. cephALEXin 2023-0 Yes [id number] 500mg Take 1 Univers (KEFLEX) 1-27 capsule by ity o f 500 mg 00:00: mouth 4 [place] capsule 00 (four) Medical times Branch daily. cephALEXin 2023-0 Yes [id number] 500mg Take 1 Univers (KEFLEX) 1-27 capsule by ity o f 500 mg 00:00: mouth 4 [place] capsule 00 (four) Medical times Branch daily. cephALEXin 2023-0 Yes [id number] 500mg Take 1 Univers (KEFLEX) 1-27 capsule by ity o f 500 mg 00:00: mouth 4 [place] capsule 00 (four) Medical times Branch daily. cephALEXin 2023-0 Yes [id number] 500mg Take 1 Univers (KEFLEX) 1-27 capsule by ity o f 500 mg 00:00: mouth 4 [place] capsule 00 (four) Medical times Branch daily. cephALEXin 2023-0 Yes [id number] 500mg Take 1 Univers (KEFLEX) 1-27 capsule by ity o f 500 mg 00:00: mouth 4 [place] capsule 00 (four) Medical times Branch daily. cephALEXin 2023-0 Yes [id number] 500mg Take 1 Univers (KEFLEX) 1-27 capsule by ity o f 500 mg 00:00: mouth 4 [place] capsule 00 (four) Medical times Branch daily. cephALEXin 2023-0 Yes [id number] 500mg Take 1 Univers (KEFLEX) 1-27 capsule by ity o f 500 mg 00:00: mouth 4 [place] capsule 00 (four) Medical times Branch daily. cephALEXin 2023-0 Yes [id number] 500mg Take 1 Univers (KEFLEX) 1-27 capsule by ity o f 500 mg 00:00: mouth 4 [place] capsule 00 (four) Medical times Branch daily. cephALEXin 2023-0 Yes [id number] 500mg Take 1 Univers (KEFLEX) 1-27 capsule by ity o f 500 mg 00:00: mouth 4 [place] capsule 00 (four) Medical times Branch daily. cephALEXin 2023-0 Yes [id number] 500mg Take 1 Univers (KEFLEX) 1-27 capsule by ity o f 500 mg 00:00: mouth 4 [place] capsule 00 (four) Medical times Branch daily. cephALEXin 2023-0 Yes [id number] 500mg Take 1 Univers (KEFLEX) 1-27 capsule by ity o f 500 mg 00:00: mouth 4 [place] capsule 00 (four) Medical times Branch daily. cephALEXin 2023-0 Yes [id number] 500mg Take 1 Univers (KEFLEX) 1-27 capsule by ity o f 500 mg 00:00: mouth 4 [place] capsule 00 (four) Medical times Branch daily. cephALEXin 2023-0 Yes [id number] 500mg Take 1 Univers (KEFLEX) 1-27 capsule by ity o f 500 mg 00:00: mouth 4 [place] capsule 00 (four) Medical times Branch daily. cephALEXin 2023-0 Yes [id number] 500mg Take 1 Univers (KEFLEX) 1-27 capsule by ity o f 500 mg 00:00: mouth 4 [place] capsule 00 (four) Medical times Branch daily. cephALEXin 2023-0 Yes [id number] 500mg Take 1 Univers (KEFLEX) 1-27 capsule by ity o f 500 mg 00:00: mouth 4 [place] capsule 00 (four) Medical times Branch daily. cephALEXin 2023-0 Yes [id number] 500mg Take 1 Univers (KEFLEX) 1-27 capsule by ity o f 500 mg 00:00: mouth 4 [place] capsule 00 (four) Medical times Branch daily. cephALEXin 2023-0 Yes [id number] 500mg Take 1 Univers (KEFLEX) 1-27 capsule by ity o f 500 mg 00:00: mouth 4 [place] capsule 00 (four) Medical times Branch daily. cephALEXin 2023-0 Yes [id number] 500mg Take 1 Univers (KEFLEX) 1-27 capsule by ity o f 500 mg 00:00: mouth 4 [place] capsule 00 (four) Medical times Branch daily. cephALEXin 2023-0 Yes [id number] 500mg Take 1 Univers (KEFLEX) 1-27 capsule by ity o f 500 mg 00:00: mouth 4 [place] capsule 00 (four) Medical times Branch daily. cephALEXin 2023-0 Yes [id number] 500mg Take 1 Univers (KEFLEX) 1-27 capsule by ity o f 500 mg 00:00: mouth 4 [place] capsule 00 (four) Medical times Branch daily. cephALEXin 2023-0 Yes [id number] 500mg Take 1 Univers (KEFLEX) 1-27 capsule by ity o f 500 mg 00:00: mouth 4 [place] capsule 00 (four) Medical times Branch daily. cephALEXin 2023-0 Yes [id number] 500mg Take 1 Univers (KEFLEX) 1-27 capsule by ity o f 500 mg 00:00: mouth 4 [place] capsule 00 (four) Medical times Branch daily. cephALEXin 2023-0 Yes [id number] 500mg Take 1 Univers (KEFLEX) 1-27 capsule by ity o f 500 mg 00:00: mouth 4 [place] capsule 00 (four) Medical times Branch daily. cephALEXin 2023-0 Yes [id number] 500mg Take 1 Univers (KEFLEX) 1-27 capsule by ity o f 500 mg 00:00: mouth 4 [place] capsule 00 (four) Medical times Branch daily. cephALEXin 2023-0 Yes [id number] 500mg Take 1 Univers (KEFLEX) 1-27 capsule by ity o f 500 mg 00:00: mouth 4 [place] capsule 00 (four) Medical times Branch daily. cephALEXin 2023-0 Yes [id number] 500mg Take 1 Univers (KEFLEX) 1-27 capsule by ity o f 500 mg 00:00: mouth 4 [place] capsule 00 (four) Medical times Branch daily. cephALEXin 2023-0 Yes [id number] 500mg Take 1 Univers (KEFLEX) 1-27 capsule by ity o f 500 mg 00:00: mouth 4 [place] capsule 00 (four) Medical times Branch daily. cephALEXin 2023-0 Yes [id number] 500mg Take 1 Univers (KEFLEX) 1-27 capsule by ity o f 500 mg 00:00: mouth 4 [place] capsule 00 (four) Medical times Branch daily. cephALEXin 3-0 Yes [id number] 500mg Take 1 Univers (KEFLEX) 1-27 capsule by ity o f 500 mg 00:00: mouth 4 [place] capsule 00 (four) Medical times Branch daily. cephALEXin 2022-0 Yes [id number] 500mg Take 1 Univers (KEFLEX) 1-27 capsule by ity o f 500 mg 00:00: mouth 4 [place] capsule 00 (four) Medical times Branch daily. cephALEXin 2022-0 Yes [id number] 500mg Take 1 Univers (KEFLEX) 1-27 capsule by ity o f 500 mg 00:00: mouth 4 [place] capsule 00 (four) Medical times Branch daily. cephALEXin 2022-0 Yes [id number] 500mg Take 1 Univers (KEFLEX) 1-27 capsule by ity o f 500 mg 00:00: mouth 4 [place] capsule 00 (four) Medical times Branch daily. cephALEXin 2022-0 3- No [id number] 500mg Take 1 Univers (KEFLEX) 1-27 07-12 capsule by ity of 500 mg 00:00: 00:00 mouth 4 [place] capsule 00 :00 (four) Medical times Branch daily. cephALEXin 2022-0 2022- No [id number] 500mg Take 1 Univers (KEFLEX) 1-27 07-12 capsule by ity of 500 mg 00:00: 00:00 mouth 4 [place] capsule 00 :00 (four) Medical times Branch daily. cephALEXin 2022-0 3- No [id number] 500mg Take 1 Univers (KEFLEX) 1-27 07-12 capsule by ity of 500 mg 00:00: 00:00 mouth 4 [place] capsule 00 :00 (four) Medical times Branch daily. cephALEXin 3-0 2023- No [id number] 500mg Take 1 [facility] (KEFLEX) 1-27 07-12 capsule by ity of 500 mg 00:00: 00:00 mouth 4 [place] capsule 00 :00 (four) Medical times Branch daily. AIMOVIG 2022-0 Yes [facility] AUTOINJECTO 1-26 ity of R 70 mg/mL 00:00: [place] [facility] 00 Medical Branch AIMOVIG 2023-0 Yes [facility] AUTOINJECTO 1-26 ity of R 70 mg/mL 00:00: [place] [facility] 00 Medical Branch AIMOVIG 2022-0 Yes [facility] AUTOINJECTO 1-26 ity of R 70 mg/mL 00:00: [place] [facility] Medical Branch AIMOVIG 2022-0 Yes [facility] AUTOINJECTO 1-26 ity of R 70 mg/mL 00:00: [place] [facility] 00 Medical Branch AIMOVIG 2022-0 Yes [facility] AUTOINJECTO 1-26 ity of R 70 mg/mL 00:00: [place] [facility] 00 Medical Branch AIMOVIG 2022-0 Yes [facility] AUTOINJECTO 1-26 ity of R 70 mg/mL 00:00: [place] [facility] 00 Medical Branch AIMOVIG 2022-0 Yes [facility] AUTOINJECTO 1-26 ity of R 70 mg/mL 00:00: [place] [facility] 00 Medical Branch AIMOVIG 2022-0 Yes [facility] AUTOINJECTO 1-26 ity of R 70 mg/mL 00:00: [place] [facility] 00 Medical Branch AIMOVIG 0 Yes [facility] AUTOINJECTO 1-26 ity of R 70 mg/mL 00:00: [place] [facility] 00 Medical Branch AIMOVIG 2022-0 Yes [facility] AUTOINJECTO 1-26 ity of R 70 mg/mL 00:00: [place] [facility] 00 Medical Branch AIMOVIG 2022-0 Yes [facility] AUTOINJECTO 1-26 ity of R 70 mg/mL 00:00: [place] [facility] 00 Medical Branch AIMOVIG 2022-0 Yes [facility] AUTOINJECTO 1-26 ity of R 70 mg/mL 00:00: [place] [facility] 00 Medical Branch AIMOVIG 2022-0 Yes [facility] AUTOINJECTO 1-26 ity of R 70 mg/mL 00:00: [place] [facility] 00 Medical Branch AIMOVIG 2022-0 Yes [facility] AUTOINJECTO 1-26 ity of R 70 mg/mL 00:00: [place] [facility] 00 Medical Branch AIMOVIG 2022-0 Yes [facility] AUTOINJECTO 1-26 ity of R 70 mg/mL 00:00: [place] [facility] 00 Medical Branch AIMOVIG 2022-0 Yes [facility] AUTOINJECTO 1-26 ity of R 70 mg/mL 00:00: [place] [facility] 00 Medical Branch AIMOVIG 2023-0 Yes [facility] AUTOINJECTO 1-26 ity of R 70 mg/mL 00:00: [place] [facility] 00 Medical Branch AIMOVIG 2022-0 Yes [facility] AUTOINJECTO 1-26 ity of R 70 mg/mL 00:00: [place] [facility] Branch AIMOVIG 2022-0 Yes [facility] AUTOINJECTO 1-26 ity of R 70 mg/mL 00:00: [place] [facility] Branch AIMOVIG 2022-0 Yes [facility] AUTOINJECTO 1-26 ity of R 70 mg/mL 00:00: [place] [facility] Branch AIMOVIG 2022-0 Yes [facility] AUTOINJECTO 1-26 ity of R 70 mg/mL 00:00: [place] [facility] 00 Medical Branch AIMOVIG 2022-0 Yes [facility] AUTOINJECTO 1-26 ity of R 70 mg/mL 00:00: [place] [facility] AIMOVIG 2022-0 Yes [facility] AUTOINJECTO 1-26 ity of R 70 mg/mL 00:00: [facility] Medical Branch AIMOVIG 2022-0 Yes [facility] AUTOINJECTO 1-26 ity of R 70 mg/mL 00:00: [place] [facility] Branch AIMOVIG 2022-0 Yes [facility] AUTOINJECTO 1-26 ity of R 70 mg/mL 00:00: [place] [facility] Branch AIMOVIG 2022-0 Yes [facility] AUTOINJECTO 1-26 ity of R 70 mg/mL 00:00: [place] [facility] 00 Medical Branch AIMOVIG 2022-0 Yes [facility] AUTOINJECTO 1-26 ity of R 70 mg/mL 00:00: [place] [facility] Branch AIMOVIG 2022-0 Yes [facility] AUTOINJECTO 1-26 ity of R 70 mg/mL 00:00: [place] [facility] 00 Medical Branch AIMOVIG 2022-0 Yes [facility] AUTOINJECTO 1-26 ity of R 70 mg/mL 00:00: [place] [facility] 00 Medical Branch AIMOVIG 2022-0 Yes [facility] AUTOINJECTO 1-26 ity of R 70 mg/mL 00:00: [place] [facility] 00 Medical Branch AIMOVIG 2022-0 Yes [facility] AUTOINJECTO 1-26 ity of R 70 mg/mL 00:00: [place] [facility] Branch AIMOVIG 2022-0 Yes [facility] AUTOINJECTO 1-26 ity of R 70 mg/mL 00:00: [place] [facility] 00 Medical Branch AIMOVIG 2022-0 Yes [facility] AUTOINJECTO 1-26 ity of R 70 mg/mL 00:00: [place] [facility] Branch AIMOVIG 2022-0 Yes [facility] AUTOINJECTO 1-26 ity of R 70 mg/mL 00:00: [place] [facility] Branch AIMOVIG 2022-0 Yes [facility] AUTOINJECTO 1-26 ity of R 70 mg/mL 00:00: [facility] Medical Branch AIMOVIG 2022-0 Yes [facility] AUTOINJECTO 1-26 ity of R 70 mg/mL 00:00: [facility] 00 Medical Branch AIMOVIG 2022-0 Yes [facility] AUTOINJECTO 1-26 ity of R 70 mg/mL 00:00: [facility] Medical Branch AIMOVIG 2022-0 Yes [facility] AUTOINJECTO 1-26 ity of R 70 mg/mL 00:00: [facility] Medical Branch AIMOVIG 2022-0 Yes [facility] AUTOINJECTO 1-26 ity of R 70 mg/mL 00:00: [facility] Medical Branch AIMOVIG 2022-0 Yes [facility] AUTOINJECTO 1-26 ity of R 70 mg/mL 00:00: [facility] 00 Medical Branch AIMOVIG 2022-0 Yes [facility] AUTOINJECTO 1-26 ity of R 70 mg/mL 00:00: [facility] Medical Branch AIMOVIG 2022-0 Yes [facility] AUTOINJECTO 1-26 ity of R 70 mg/mL 00:00: [facility] 00 Medical Branch AIMOVIG 3-0 Yes [facility] AUTOINJECTO 1-26 ity of R 70 mg/mL 00:00: [facility] Medical Branch AIMOVIG 2022-0 Yes [facility] AUTOINJECTO 1-26 ity of R 70 mg/mL 00:00: [facility] 00 Medical Branch AIMOVIG 2022-0 Yes [facility] AUTOINJECTO 1-26 ity of R 70 mg/mL 00:00: [facility] 00 Medical Branch AIMOVIG 2022-0 Yes [facility] AUTOINJECTO 1-26 ity of R 70 mg/mL 00:00: [facility] 00 Medical Branch AIMOVIG 2022-0 Yes [facility] AUTOINJECTO 1-26 ity of R 70 mg/mL 00:00: [place] [facility] 00 Medical Branch AIMOVIG 3-0 Yes [facility] AUTOINJECTO 1-26 ity of R 70 mg/mL 00:00: [place] [facility] Medical Branch AIMOVIG 2022-0 Yes [facility] AUTOINJECTO 1-26 ity of R 70 mg/mL 00:00: [place] [facility] Branch AIMOVIG 2022-0 Yes [facility] AUTOINJECTO 1-26 ity of R 70 mg/mL 00:00: [facility] Medical Branch AIMOVIG 2022-0 Yes [facility] AUTOINJECTO 1-26 ity of R 70 mg/mL 00:00: [place] [facility] 00 Medical Branch AIMOVIG 2022-0 Yes [facility] AUTOINJECTO 1-26 ity of R 70 mg/mL 00:00: [facility] 00 Medical Branch AIMOVIG 2022-0 Yes [facility] AUTOINJECTO 1-26 ity of R 70 mg/mL 00:00: [facility] 00 Medical Branch AIMOVIG 2022-0 Yes [facility] AUTOINJECTO 1-26 ity of R 70 mg/mL 00:00: [place] [facility] Branch AIMOVIG 2022-0 Yes [facility] AUTOINJECTO 1-26 ity of R 70 mg/mL 00:00: [place] [facility] 00 Medical Branch AIMOVIG 2022-0 Yes [facility] AUTOINJECTO 1-26 ity of R 70 mg/mL 00:00: [place] [facility] 00 Medical Branch AIMOVIG 2022-0 Yes [facility] AUTOINJECTO 1-26 ity of R 70 mg/mL 00:00: [place] [facility] 00 Medical Branch AIMOVIG 2022-0 Yes [facility] AUTOINJECTO 1-26 ity of R 70 mg/mL 00:00: [place] [facility] 00 Medical Branch AIMOVIG 2022-0 Yes [facility] AUTOINJECTO 1-26 ity of R 70 mg/mL 00:00: [place] [facility] 00 Medical Branch AIMOVIG 2022-0 Yes [facility] AUTOINJECTO 1-26 ity of R 70 mg/mL 00:00: [place] [facility] 00 Medical Branch AIMOVIG 2022-0 Yes [facility] AUTOINJECTO 1-26 ity of R 70 mg/mL 00:00: [place] [facility] 00 Medical Branch AIMOVIG 2022-0 Yes [facility] AUTOINJECTO 1-26 ity of R 70 mg/mL 00:00: [place] [facility] Medical Branch AIMOVIG 2022-0 Yes [facility] AUTOINJECTO 1-26 ity of R 70 mg/mL 00:00: [place] [facility] Branch AIMOVIG 2022-0 Yes [facility] AUTOINJECTO 1-26 ity of R 70 mg/mL 00:00: [place] [facility] Branch AIMOVIG 2022-0 Yes [facility] AUTOINJECTO 1-26 ity of R 70 mg/mL 00:00: [place] [facility] Branch AIMOVIG 2022-0 Yes [facility] AUTOINJECTO 1-26 ity of R 70 mg/mL 00:00: [place] [facility] Branch AIMOVIG 2022-0 Yes [facility] AUTOINJECTO 1-26 ity of R 70 mg/mL 00:00: [facility] Medical Branch AIMOVIG 2022-0 Yes [facility] AUTOINJECTO 1-26 ity of R 70 mg/mL 00:00: [place] [facility] Medical Branch AIMOVIG 2022-0 Yes [facility] AUTOINJECTO 1-26 ity of R 70 mg/mL 00:00: [place] [facility] Branch AIMOVIG 2022-0 Yes [facility] AUTOINJECTO 1-26 ity of R 70 mg/mL 00:00: [place] [facility] 00 Medical Branch AIMOVIG 2022-0 Yes [facility] AUTOINJECTO 1-26 ity of R 70 mg/mL 00:00: [place] [facility] Branch AIMOVIG 2022-0 Yes [facility] AUTOINJECTO 1-26 ity of R 70 mg/mL 00:00: [place] [facility] 00 Medical Branch AIMOVIG 2022-0 Yes [facility] AUTOINJECTO 1-26 ity of R 70 mg/mL 00:00: [place] [facility] Branch AIMOVIG 2022-0 Yes [facility] AUTOINJECTO 1-26 ity of R 70 mg/mL 00:00: [place] [facility] 00 Medical Branch AIMOVIG 2022-0 Yes [facility] AUTOINJECTO 1-26 ity of R 70 mg/mL 00:00: [place] [facility] 00 Medical Branch AIMOVIG 2022-0 Yes [facility] AUTOINJECTO 1-26 ity of R 70 mg/mL 00:00: [place] [facility] 00 Medical Branch AIMOVIG 2022-0 Yes [facility] AUTOINJECTO 1-26 ity of R 70 mg/mL 00:00: [place] [facility] Branch AIMOVIG 2022-0 Yes [facility] AUTOINJECTO 1-26 ity of R 70 mg/mL 00:00: [place] [facility] 00 Medical Branch blood sugar 3-0 Yes Use 1 to 2 Univers diagnostic 1-24 test ity of (ONETOUCH 00:00: strips [place] VERIO TEST 00 daily to Medic al STRIPS) test blood Branch strip sugar blood sugar 3-0 Yes Use 1 to 2 Univers diagnostic 1-24 test ity of (ONETOUCH 00:00: strips [place] VERIO TEST 00 daily to Medic al STRIPS) test blood Branch strip sugar blood sugar 2022-0 Yes Use 1 to 2 Univers diagnostic 1-24 test ity of (ONETOUCH 00:00: strips [place] VERIO TEST 00 daily to Medic al STRIPS) test blood Branch strip sugar blood sugar 2022-0 Yes Use 1 to 2 Univers diagnostic 1-24 test ity of (ONETOUCH 00:00: strips [place] VERIO TEST 00 daily to Medic al STRIPS) test blood Branch strip sugar blood sugar 2022-0 Yes Use 1 to 2 Univers diagnostic 1-24 test ity of (ONETOUCH 00:00: strips [place] VERIO TEST 00 daily to Medic al STRIPS) test blood Branch strip sugar blood sugar 3-0 Yes Use 1 to 2 Univers diagnostic 1-24 test ity of (ONETOUCH 00:00: strips [place] VERIO TEST 00 daily to Medic al STRIPS) test blood Branch strip sugar blood sugar 3-0 Yes Use 1 to 2 Univers diagnostic 1-24 test ity of (ONETOUCH 00:00: strips [place] VERIO TEST 00 daily to Medic al STRIPS) test blood Branch strip sugar blood sugar 3-0 Yes Use 1 to 2 Univers diagnostic 1-24 test ity of (ONETOUCH 00:00: strips [place] VERIO TEST 00 daily to Medic al STRIPS) test blood Branch strip sugar blood sugar 3-0 Yes Use 1 to 2 Univers diagnostic 1-24 test ity of (ONETOUCH 00:00: strips [place] VERIO TEST 00 daily to Medic al STRIPS) test blood Branch strip sugar blood sugar 3-0 Yes Use 1 to 2 Univers diagnostic 1-24 test ity of (ONETOUCH 00:00: strips [place] VERIO TEST 00 daily to Medic al STRIPS) test blood Branch strip sugar blood sugar 3-0 Yes Use 1 to 2 Univers diagnostic 1-24 test ity of (ONETOUCH 00:00: strips [place] VERIO TEST 00 daily to Medic al STRIPS) test blood Branch strip sugar blood sugar 2023-0 Yes Use 1 to 2 Univers diagnostic 1-24 test ity of (ONETOUCH 00:00: strips [place] VERIO TEST 00 daily to Medic al STRIPS) test blood Branch strip sugar blood sugar 2023-0 Yes Use 1 to 2 Univers diagnostic 1-24 test ity of (ONETOUCH 00:00: strips [place] VERIO TEST 00 daily to Medic al STRIPS) test blood Branch strip sugar blood sugar 2023-0 Yes Use 1 to 2 Univers diagnostic 1-24 test ity of (ONETOUCH 00:00: strips [place] VERIO TEST 00 daily to Medic al STRIPS) test blood Branch strip sugar blood sugar 2023-0 Yes Use 1 to 2 Univers diagnostic 1-24 test ity of (ONETOUCH 00:00: strips [place] VERIO TEST 00 daily to Medic al STRIPS) test blood Branch strip sugar blood sugar 2023-0 Yes Use 1 to 2 Univers diagnostic 1-24 test ity of (ONETOUCH 00:00: strips [place] VERIO TEST 00 daily to Medic al STRIPS) test blood Branch strip sugar blood sugar 2023-0 Yes Use 1 to 2 Univers diagnostic 1-24 test ity of (ONETOUCH 00:00: strips [place] VERIO TEST 00 daily to Medic al STRIPS) test blood Branch strip sugar blood sugar 2023-0 Yes Use 1 to 2 Univers diagnostic 1-24 test ity of (ONETOUCH 00:00: strips [place] VERIO TEST 00 daily to Medic al STRIPS) test blood Branch strip sugar blood sugar 2023-0 Yes Use 1 to 2 Univers diagnostic 1-24 test ity of (ONETOUCH 00:00: strips [place] VERIO TEST 00 daily to Medic al STRIPS) test blood Branch strip sugar blood sugar 2023-0 Yes Use 1 to 2 Univers diagnostic 1-24 test ity of (ONETOUCH 00:00: strips [place] VERIO TEST 00 daily to Medic al STRIPS) test blood Branch strip sugar blood sugar 2023-0 Yes Use 1 to 2 Univers diagnostic 1-24 test ity of (ONETOUCH 00:00: strips [place] VERIO TEST 00 daily to Medic al STRIPS) test blood Branch strip sugar blood sugar 2023-0 Yes Use 1 to 2 Univers diagnostic 1-24 test ity of (ONETOUCH 00:00: strips [place] VERIO TEST 00 daily to Medic al STRIPS) test blood Branch strip sugar blood sugar 2023-0 Yes Use 1 to 2 Univers diagnostic 1-24 test ity of (ONETOUCH 00:00: strips [place] VERIO TEST 00 daily to Medic al STRIPS) test blood Branch strip sugar blood sugar 2023-0 Yes Use 1 to 2 Univers diagnostic 1-24 test ity of (ONETOUCH 00:00: strips [place] VERIO TEST 00 daily to Medic al STRIPS) test blood Branch strip sugar blood sugar 2023-0 Yes Use 1 to 2 Univers diagnostic 1-24 test ity of (ONETOUCH 00:00: strips [place] VERIO TEST 00 daily to Medic al STRIPS) test blood Branch strip sugar blood sugar 2023-0 Yes Use 1 to 2 Univers diagnostic 1-24 test ity of (ONETOUCH 00:00: strips [place] VERIO TEST 00 daily to Medic al STRIPS) test blood Branch strip sugar blood sugar 2023-0 Yes Use 1 to 2 Univers diagnostic 1-24 test ity of (ONETOUCH 00:00: strips [place] VERIO TEST 00 daily to Medic al STRIPS) test blood Branch strip sugar blood sugar 2023-0 Yes Use 1 to 2 Univers diagnostic 1-24 test ity of (ONETOUCH 00:00: strips [place] VERIO TEST 00 daily to Medic al STRIPS) test blood Branch strip sugar blood sugar 2023-0 Yes Use 1 to 2 Univers diagnostic 1-24 test ity of (ONETOUCH 00:00: strips [place] VERIO TEST 00 daily to Medic al STRIPS) test blood Branch strip sugar blood sugar 2023-0 Yes Use 1 to 2 Univers diagnostic 1-24 test ity of (ONETOUCH 00:00: strips [place] VERIO TEST 00 daily to Medic al STRIPS) test blood Branch strip sugar blood sugar 2023-0 Yes Use 1 to 2 Univers diagnostic 1-24 test ity of (ONETOUCH 00:00: strips [place] VERIO TEST 00 daily to Medic al STRIPS) test blood Branch strip sugar blood sugar 2023-0 Yes Use 1 to 2 Univers diagnostic 1-24 test ity of (ONETOUCH 00:00: strips [place] VERIO TEST 00 daily to Medic al STRIPS) test blood Branch strip sugar blood sugar 2023-0 Yes Use 1 to 2 Univers diagnostic 1-24 test ity of (ONETOUCH 00:00: strips [place] VERIO TEST 00 daily to Medic al STRIPS) test blood Branch strip sugar blood sugar 2023-0 Yes Use 1 to 2 Univers diagnostic 1-24 test ity of (ONETOUCH 00:00: strips [place] VERIO TEST 00 daily to Medic al STRIPS) test blood Branch strip sugar blood sugar 2023-0 Yes Use 1 to 2 Univers diagnostic 1-24 test ity of (ONETOUCH 00:00: strips [place] VERIO TEST 00 daily to Medic al STRIPS) test blood Branch strip sugar blood sugar 3-0 Yes Use 1 to 2 Univers diagnostic 1-24 test ity of (ONETOUCH 00:00: strips [place] VERIO TEST 00 daily to Medic al STRIPS) test blood Branch strip sugar blood sugar 3-0 Yes Use 1 to 2 Univers diagnostic 1-24 test ity of (ONETOUCH 00:00: strips [place] VERIO TEST 00 daily to Medic al STRIPS) test blood Branch strip sugar blood sugar 3-0 Yes Use 1 to 2 Univers diagnostic 1-24 test ity of (ONETOUCH 00:00: strips [place] VERIO TEST 00 daily to Medic al STRIPS) test blood Branch strip sugar blood sugar 3-0 Yes Use 1 to 2 Univers diagnostic 1-24 test ity of (ONETOUCH 00:00: strips [place] VERIO TEST 00 daily to Medic al STRIPS) test blood Branch strip sugar blood sugar 3-0 Yes Use 1 to 2 Univers diagnostic 1-24 test ity of (ONETOUCH 00:00: strips [place] VERIO TEST 00 daily to Medic al STRIPS) test blood Branch strip sugar blood sugar 2023-0 Yes Use 1 to 2 Univers diagnostic 1-24 test ity of (ONETOUCH 00:00: strips [place] VERIO TEST 00 daily to Medic al STRIPS) test blood Branch strip sugar blood sugar 2023-0 Yes Use 1 to 2 Univers diagnostic 1-24 test ity of (ONETOUCH 00:00: strips [place] VERIO TEST 00 daily to Medic al STRIPS) test blood Branch strip sugar blood sugar 2023-0 Yes Use 1 to 2 Univers diagnostic 1-24 test ity of (ONETOUCH 00:00: strips [place] VERIO TEST 00 daily to Medic al STRIPS) test blood Branch strip sugar blood sugar 2023-0 Yes Use 1 to 2 Univers diagnostic 1-24 test ity of (ONETOUCH 00:00: strips [place] VERIO TEST 00 daily to Medic al STRIPS) test blood Branch strip sugar blood sugar 2023-0 Yes Use 1 to 2 Univers diagnostic 1-24 test ity of (ONETOUCH 00:00: strips [place] VERIO TEST 00 daily to Medic al STRIPS) test blood Branch strip sugar blood sugar 2023-0 Yes Use 1 to 2 Univers diagnostic 1-24 test ity of (ONETOUCH 00:00: strips [place] VERIO TEST 00 daily to Medic al STRIPS) test blood Branch strip sugar blood sugar 2023-0 Yes Use 1 to 2 Univers diagnostic 1-24 test ity of (ONETOUCH 00:00: strips [place] VERIO TEST 00 daily to Medic al STRIPS) test blood Branch strip sugar blood sugar 2023-0 Yes Use 1 to 2 Univers diagnostic 1-24 test ity of (ONETOUCH 00:00: strips [place] VERIO TEST 00 daily to Medic al STRIPS) test blood Branch strip sugar blood sugar 2023-0 Yes Use 1 to 2 Univers diagnostic 1-24 test ity of (ONETOUCH 00:00: strips [place] VERIO TEST 00 daily to Medic al STRIPS) test blood Branch strip sugar blood sugar 2023-0 Yes Use 1 to 2 Univers diagnostic 1-24 test ity of (ONETOUCH 00:00: strips [place] VERIO TEST 00 daily to Medic al STRIPS) test blood Branch strip sugar blood sugar 2023-0 Yes Use 1 to 2 Univers diagnostic 1-24 test ity of (ONETOUCH 00:00: strips [place] VERIO TEST 00 daily to Medic al STRIPS) test blood Branch strip sugar blood sugar 2023-0 Yes Use 1 to 2 Univers diagnostic 1-24 test ity of (ONETOUCH 00:00: strips [place] VERIO TEST 00 daily to Medic al STRIPS) test blood Branch strip sugar blood sugar 2023-0 Yes Use 1 to 2 Univers diagnostic 1-24 test ity of (ONETOUCH 00:00: strips [place] VERIO TEST 00 daily to Medic al STRIPS) test blood Branch strip sugar blood sugar 2023-0 Yes Use 1 to 2 Univers diagnostic 1-24 test ity of (ONETOUCH 00:00: strips [place] VERIO TEST 00 daily to Medic al STRIPS) test blood Branch strip sugar blood sugar 2023-0 Yes Use 1 to 2 Univers diagnostic 1-24 test ity of (ONETOUCH 00:00: strips [place] VERIO TEST 00 daily to Medic al STRIPS) test blood Branch strip sugar blood sugar 2023-0 Yes Use 1 to 2 Univers diagnostic 1-24 test ity of (ONETOUCH 00:00: strips [place] VERIO TEST 00 daily to Medic al STRIPS) test blood Branch strip sugar blood sugar 2023-0 Yes Use 1 to 2 Univers diagnostic 1-24 test ity of (ONETOUCH 00:00: strips [place] VERIO TEST 00 daily to Medic al STRIPS) test blood Branch strip sugar blood sugar 2023-0 Yes Use 1 to 2 Univers diagnostic 1-24 test ity of (ONETOUCH 00:00: strips [place] VERIO TEST 00 daily to Medic al STRIPS) test blood Branch strip sugar blood sugar 2023-0 Yes Use 1 to 2 Univers diagnostic 1-24 test ity of (ONETOUCH 00:00: strips [place] VERIO TEST 00 daily to Medic al STRIPS) test blood Branch strip sugar blood sugar 2023-0 Yes Use 1 to 2 Univers diagnostic 1-24 test ity of (ONETOUCH 00:00: strips [place] VERIO TEST 00 daily to Medic al STRIPS) test blood Branch strip sugar blood sugar 2023-0 Yes Use 1 to 2 Univers diagnostic 1-24 test ity of (ONETOUCH 00:00: strips [place] VERIO TEST 00 daily to Medic al STRIPS) test blood Branch strip sugar blood sugar 2023-0 Yes Use 1 to 2 Univers diagnostic 1-24 test ity of (ONETOUCH 00:00: strips [place] VERIO TEST 00 daily to Medic al STRIPS) test blood Branch strip sugar blood sugar 2023-0 Yes Use 1 to 2 Univers diagnostic 1-24 test ity of (ONETOUCH 00:00: strips [place] VERIO TEST 00 daily to Medic al STRIPS) test blood Branch strip sugar blood sugar 2023-0 Yes Use 1 to 2 Univers diagnostic 1-24 test ity of (ONETOUCH 00:00: strips [place] VERIO TEST 00 daily to Medic al STRIPS) test blood Branch strip sugar blood sugar 2023-0 Yes Use 1 to 2 Univers diagnostic 1-24 test ity of (ONETOUCH 00:00: strips [place] VERIO TEST 00 daily to Medic al STRIPS) test blood Branch strip sugar blood sugar 2023-0 Yes Use 1 to 2 Univers diagnostic 1-24 test ity of (ONETOUCH 00:00: strips [place] VERIO TEST 00 daily to Medic al STRIPS) test blood Branch strip sugar blood sugar 2023-0 Yes Use 1 to 2 Univers diagnostic 1-24 test ity of (ONETOUCH 00:00: strips [place] VERIO TEST 00 daily to Medic al STRIPS) test blood Branch strip sugar blood sugar 2023-0 Yes Use 1 to 2 Univers diagnostic 1-24 test ity of (ONETOUCH 00:00: strips [place] VERIO TEST 00 daily to Medic al STRIPS) test blood Branch strip sugar blood sugar 2023-0 Yes Use 1 to 2 Univers diagnostic 1-24 test ity of (ONETOUCH 00:00: strips [place] VERIO TEST 00 daily to Medic al STRIPS) test blood Branch strip sugar blood sugar 2023-0 Yes Use 1 to 2 Univers diagnostic 1-24 test ity of (ONETOUCH 00:00: strips [place] VERIO TEST 00 daily to Medic al STRIPS) test blood Branch strip sugar blood sugar 2023-0 Yes Use 1 to 2 Univers diagnostic 1-24 test ity of (ONETOUCH 00:00: strips [place] VERIO TEST 00 daily to Medic al STRIPS) test blood Branch strip sugar blood sugar 2023-0 Yes Use 1 to 2 Univers diagnostic 1-24 test ity of (ONETOUCH 00:00: strips [place] VERIO TEST 00 daily to Medic al STRIPS) test blood Branch strip sugar blood sugar 2023-0 Yes Use 1 to 2 Univers diagnostic 1-24 test ity of (ONETOUCH 00:00: strips [place] VERIO TEST 00 daily to Medic al STRIPS) test blood Branch strip sugar blood sugar 2023-0 Yes Use 1 to 2 [facility] diagnostic 1-24 test ity of (ONETOUCH 00:00: strips [place] VERIO TEST 00 daily to Medic al STRIPS) test blood Branch strip sugar blood sugar 2023-0 Yes Use 1 to 2 Univers diagnostic 1-24 test ity of (ONETOUCH 00:00: strips [place] VERIO TEST 00 daily to Medic al STRIPS) test blood Branch strip sugar blood sugar 2023-0 Yes Use 1 to 2 Univers diagnostic 1-24 test ity of (ONETOUCH 00:00: strips [place] VERIO TEST 00 daily to Medic al STRIPS) test blood Branch strip sugar blood sugar 2023-0 Yes Use 1 to 2 Univers diagnostic 1-24 test ity of (ONETOUCH 00:00: strips [place] VERIO TEST 00 daily to Medic al STRIPS) test blood Branch strip sugar blood sugar 2023-0 Yes Use 1 to 2 Univers diagnostic 1-24 test ity of (ONETOUCH 00:00: strips [place] VERIO TEST 00 daily to Medic al STRIPS) test blood Branch strip sugar blood sugar 3-0 Yes Use 1 to 2 Univers diagnostic 1-24 test ity of (ONETOUCH 00:00: strips [place] VERIO TEST 00 daily to Medic al STRIPS) test blood Branch strip sugar blood sugar 3-0 Yes Use 1 to 2 [facility] diagnostic 1-24 test ity of (ONETOUCH 00:00: strips [place] VERIO TEST 00 daily to Medic al STRIPS) test blood Branch strip sugar blood sugar 2022-0 Yes Use 1 to 2 [facility] diagnostic 1-24 test ity of (ONETOUCH 00:00: strips [place] VERIO TEST 00 daily to Medic al STRIPS) test blood Branch strip sugar blood sugar 2022-0 Yes Use 1 to 2 [facility] diagnostic 1-24 test ity of (ONETOUCH 00:00: strips [place] VERIO TEST 00 daily to Medic al STRIPS) test blood Branch strip sugar blood sugar 2022-0 Yes Use 1 to 2 [facility] diagnostic 1-24 test ity of (ONETOUCH 00:00: strips [place] VERIO TEST 00 daily to Medic al STRIPS) test blood Branch strip sugar blood sugar 2022-0 Yes Use 1 to 2 [facility] diagnostic 1-24 test ity of (ONETOUCH 00:00: strips [place] VERIO TEST 00 daily to Medic al STRIPS) test blood Branch strip sugar blood sugar 3-0 Yes Use 1 to 2 [facility] diagnostic 1-24 test ity of (ONETOUCH 00:00: strips [place] VERIO TEST 00 daily to Medic al STRIPS) test blood Branch strip sugar blood sugar 3-0 Yes Use 1 to 2 [facility] diagnostic 1-24 test ity of (ONETOUCH 00:00: strips [place] VERIO TEST 00 daily to Medic al STRIPS) test blood Branch strip sugar blood sugar 3-0 Yes Use 1 to 2 [facility] diagnostic 1-24 test ity of (ONETOUCH 00:00: strips [place] VERIO TEST 00 daily to Medic al STRIPS) test blood Branch strip sugar cyclobenzap 3-0 3- No 10mg Take 10 mg [facility] rine 10 mg 1-17 -17 by mouth 3 it y of tablet 15:25: 00:00 (three) [place] 35 :00 times Medical daily. Branch CYCLOBENZAP 2023-0 Yes [id number] TAKE 1 [facility] RINE 5 mg 1-17 TABLET BY ity o f tablet 00:00: [facility] 00 TWICE Medical DAILY Branch CYCLOBENZAP 2023-0 Yes [id number] TAKE 1 [facility] RINE 5 mg 1-17 TABLET BY ity o f tablet 00:00: [facility] 00 TWICE Medical DAILY Branch CYCLOBENZAP 2023-0 Yes [id number] TAKE 1 [facility] RINE 5 mg 1-17 TABLET BY ity o f tablet 00:00: [facility] 00 TWICE Medical DAILY Branch CYCLOBENZAP 2023-0 Yes [id number] TAKE 1 [facility] RINE 5 mg 1-17 TABLET BY ity o f tablet 00:00: [facility] 00 TWICE Medical DAILY Branch CYCLOBENZAP 2023-0 Yes [id number] TAKE 1 [facility] RINE 5 mg 1-17 TABLET BY ity o f tablet 00:00: [facility] 00 TWICE Medical DAILY Branch CYCLOBENZAP 2023-0 Yes [id number] TAKE 1 [facility] RINE 5 mg 1-17 TABLET BY ity o f tablet 00:00: [facility] 00 TWICE Medical DAILY Branch CYCLOBENZAP 2023-0 Yes [id number] TAKE 1 [facility] RINE 5 mg 1-17 TABLET BY ity o f tablet 00:00: [facility] 00 TWICE Medical DAILY Branch CYCLOBENZAP 2023-0 Yes [id number] TAKE 1 [facility] RINE 5 mg 1-17 TABLET BY ity o f tablet 00:00: [facility] 00 TWICE Medical DAILY Branch CYCLOBENZAP 2023-0 Yes [id number] TAKE 1 [facility] RINE 5 mg 1-17 TABLET BY ity o f tablet 00:00: [facility] 00 TWICE Medical DAILY Branch CYCLOBENZAP 2023-0 Yes [id number] TAKE 1 [facility] RINE 5 mg 1-17 TABLET BY ity o f tablet 00:00: [facility] 00 TWICE Medical DAILY Branch CYCLOBENZAP 2023-0 Yes [id number] TAKE 1 [facility] RINE 5 mg 1-17 TABLET BY ity o f tablet 00:00: [facility] 00 TWICE Medical DAILY Branch CYCLOBENZAP 2023-0 Yes [id number] TAKE 1 [facility] RINE 5 mg 1-17 TABLET BY ity o f tablet 00:00: [facility] 00 TWICE Medical DAILY Branch CYCLOBENZAP 2023-0 Yes [id number] TAKE 1 [facility] RINE 5 mg 1-17 TABLET BY ity o f tablet 00:00: MOUTH [place] TWICE Medical DAILY Branch CYCLOBENZAP 2022-0 Yes [id number] TAKE 1 [facility] RINE 5 mg 1-17 TABLET BY ity o f tablet 00:00: MOUTH [place] TWICE Medical DAILY Branch CYCLOBENZAP 2022-0 Yes [id number] TAKE 1 [facility] RINE 5 mg 1-17 TABLET BY ity o f tablet 00:00: MOUTH [place] TWICE Medical DAILY Branch CYCLOBENZAP 2022-0 Yes [id number] TAKE 1 [facility] RINE 5 mg 1-17 TABLET BY ity o f tablet 00:00: MOUTH [place] TWICE Medical DAILY Branch CYCLOBENZAP 2022-0 Yes [id number] TAKE 1 [facility] RINE 5 mg 1-17 TABLET BY ity o f tablet 00:00: MOUTH [place] TWICE Medical DAILY Branch CYCLOBENZAP 2022-0 2022- No [id number] TAKE 1 [facility] RINE 5 mg 1-17 02-20 TABLET BY ity of tablet 00:00: 00:00 MOUTH [place] 00 :00 TWICE Medical DAILY Branch LOVASTATIN 2021-06 Yes [id number] TAKE 1 U nivers 40 mg 2-22 TABLET BY ity of tablet 00:00: MOUTH WITH [place] EVENING Medical MEAL Branch LOVASTATIN 2021-06 Yes [id number] TAKE 1 U nivers 40 mg 2-22 TABLET BY ity of tablet 00:00: MOUTH WITH [place] EVENING Medical MEAL Branch LOVASTATIN 2021-06 Yes [id number] TAKE 1 U nivers 40 mg 2-22 TABLET BY ity of tablet 00:00: MOUTH WITH [place] EVENING Medical MEAL Branch LOVASTATIN 2021-06 Yes [id number] TAKE 1 U nivers 40 mg 2-22 TABLET BY ity of tablet 00:00: MOUTH WITH [place] EVENING Medical MEAL Branch LOVASTATIN 2021- Yes [id number] TAKE 1 U nivers 40 mg 2-22 TABLET BY ity of tablet 00:00: MOUTH WITH [place] EVENING Medical MEAL Branch LOVASTATIN 2021-06 Yes [id number] TAKE 1 U nivers 40 mg 2-22 TABLET BY ity of tablet 00:00: MOUTH WITH [place] EVENING Medical MEAL Branch LOVASTATIN 2021-06 Yes [id number] TAKE 1 U nivers 40 mg 2-22 TABLET BY ity of tablet 00:00: MOUTH WITH [place] EVENING Medical MEAL Branch LOVASTATIN 2021-06 Yes [id number] TAKE 1 U nivers 40 mg 2-22 TABLET BY ity of tablet 00:00: MOUTH WITH EVENING Medical MEAL Branch LOVASTATIN 2021-06 Yes [id number] TAKE 1 U nivers 40 mg 2-22 TABLET BY ity of tablet 00:00: MOUTH WITH EVENING Medical MEAL Branch LOVASTATIN 2021-06 Yes [id number] TAKE 1 U nivers 40 mg 2-22 TABLET BY ity of tablet 00:00: MOUTH WITH EVENING [facility] MEAL Branch LOVASTATIN 2021-06 Yes [id number] TAKE 1 U nivers 40 mg 2-22 TABLET BY ity of tablet 00:00: MOUTH WITH EVENING [facility] MEAL Branch LOVASTATIN 2021-06 Yes [id number] TAKE 1 U nivers 40 mg 2-22 TABLET BY ity of tablet 00:00: MOUTH WITH EVENING [facility] MEAL Branch LOVASTATIN 2021-06 Yes [id number] TAKE 1 U nivers 40 mg 2-22 TABLET BY ity of tablet 00:00: MOUTH WITH EVENING [facility] Branch LOVASTATIN 2021-06 Yes [id number] TAKE 1 U nivers 40 mg 2-22 TABLET BY ity of tablet 00:00: MOUTH WITH EVENING [facility] MEAL Branch LOVASTATIN 2021-06 Yes [id number] TAKE 1 U nivers 40 mg 2-22 TABLET BY ity of tablet 00:00: MOUTH WITH EVENING [facility] MEAL Branch LOVASTATIN 2021-06 Yes [id number] TAKE 1 U nivers 40 mg 2-22 TABLET BY ity of tablet 00:00: MOUTH WITH EVENING [facility] MEAL Branch LOVASTATIN 2021-06 Yes [id number] TAKE 1 U nivers 40 mg 2-22 TABLET BY ity of tablet 00:00: MOUTH WITH EVENING Medical MEAL Branch LOVASTATIN 2021-06 Yes [id number] TAKE 1 U nivers 40 mg 2-22 TABLET BY ity of tablet 00:00: MOUTH WITH EVENING Medical MEAL Branch LOVASTATIN 2021-06 Yes [id number] TAKE 1 U nivers 40 mg 2-22 TABLET BY ity of tablet 00:00: MOUTH WITH EVENING Medical MEAL Branch LOVASTATIN 2021-06 Yes [id number] TAKE 1 U nivers 40 mg 2-22 TABLET BY ity of tablet 00:00: MOUTH WITH EVENING [facility] MEAL Branch LOVASTATIN 2021-06 Yes [id number] TAKE 1 U nivers 40 mg 2-22 TABLET BY ity of tablet 00:00: MOUTH WITH EVENING Medical MEAL Branch LOVASTATIN 2021-06 Yes [id number] TAKE 1 U nivers 40 mg 2-22 TABLET BY ity of tablet 00:00: MOUTH WITH EVENING [facility] MEAL Branch LOVASTATIN 2021-06 Yes [id number] TAKE 1 U nivers 40 mg 2-22 TABLET BY ity of tablet 00:00: MOUTH WITH [facility] Branch LOVASTATIN 2021-06 Yes [id number] TAKE 1 U nivers 40 mg 2-22 TABLET BY ity of tablet 00:00: MOUTH WITH EVENING [facility] Branch LOVASTATIN 2021-06 Yes [id number] TAKE 1 U nivers 40 mg 2-22 TABLET BY ity of tablet 00:00: MOUTH WITH EVENING [facility] Branch LOVASTATIN 2021-06 Yes [id number] TAKE 1 U nivers 40 mg 2-22 TABLET BY ity of tablet 00:00: MOUTH WITH [facility] LOVASTATIN 2021-06 Yes [id number] TAKE 1 U nivers 40 mg 2-22 TABLET BY ity of tablet 00:00: MOUTH WITH [facility] Branch LOVASTATIN 2021-06 Yes [id number] TAKE 1 U nivers 40 mg 2-22 TABLET BY ity of tablet 00:00: MOUTH WITH EVENING [facility] MEAL Branch LOVASTATIN 2021-06 Yes [id number] TAKE 1 U nivers 40 mg 2-22 TABLET BY ity of tablet 00:00: MOUTH WITH [facility] LOVASTATIN 2021-06 Yes [id number] TAKE 1 U nivers 40 mg 2-22 TABLET BY ity of tablet 00:00: MOUTH WITH [facility] MEAL Branch LOVASTATIN 2021-06 Yes [id number] TAKE 1 U nivers 40 mg 2-22 TABLET BY ity of tablet 00:00: MOUTH WITH EVENING [facility] MEAL Branch LOVASTATIN 2021-06 Yes [id number] TAKE 1 U nivers 40 mg 2-22 TABLET BY ity of tablet 00:00: MOUTH WITH [facility] MEAL [place] LOVASTATIN 2021-06- No [id number] TAKE 1 [facility] 40 mg 2-22 03-21 TABLET BY ity of tablet 00:00: 00:00 MOUTH WITH [place] 00 :00 EVENING Medical MEAL Branch Insulin 2021-06- No 20U inject 20 Univ ers Glargine 1-08 11-08 Units ity of ([place] 16:19[place] skin in Medical U-100 the Branch INSULIN) [...] the [place] SOLOSTAR 00 skin in Medical U-[facility] the Branch INSULIN) morning. 100 unit/mL Decrease (3 mL) the long injection acting insulin to 20 units once daily to avoid any low BGs. If fasting BG drops < 90, he will continue decrease the insulin dose. Insulin 2021-06 Yes 20U inject 20 Unive rs Glargine 1-08 Units ity of ([place]US 00:00: under the [place] SOLOST[place] 00 skin in [facility] U-100 the Branch INSULIN) morning. 100 unit/mL Decrease (3 mL) the long injection acting insulin to 20 units once daily to avoid any low BGs. If fasting BG drops < 90, he will continue decrease the insulin dose. Insulin 2021-06 Yes 20U inject 20 Unive rs Glargine 1-08 Units ity of ([place]ANTUS 00:00: under the [place] SOLOST[place] 00 skin in [facility] U-[facility] the Branch INSULIN) morning. 100 unit/mL Decrease (3 mL) the long injection acting insulin to 20 units once daily to avoid any low BGs. If fasting BG drops < 90, he will continue decrease the insulin dose. Insulin 2021-06 Yes 20U inject 20 Unive rs Glargine 1-08 Units ity of ([place]ANTUS 00:00: under the [place] SOLOST[place] 00 skin in [facility] U[facility] the Branch INSULIN) morning. 100 unit/mL Decrease (3 mL) the long injection acting insulin to 20 units once daily to avoid any low BGs. If fasting BG drops < 90, he will continue decrease the insulin dose. Insulin 2021-06 Yes 20U inject 20 Unive rs Glargine 1-08 Units ity of (LANTUS 00:00: under the [place] SOLOST[place] 00 skin in [facility] U-[facility] the Branch INSULIN) morning. 100 unit/mL [...] under the [place] 00 skin in [facility] U-100 the Branch INSULIN) morning. 100 unit/mL [...] under the [place] SOLOST[place] 00 skin in [facility] U[facility] the Branch INSULIN) morning. 100 unit/mL [...] under the [place] SOLOST[place] 00 skin in [facility] U-[facility] the Branch INSULIN) morning. 100 unit/mL Decrease (3 mL) the long injection acting insulin to 20 units once daily to avoid any low BGs. If fasting BG drops < 90, he will continue decrease the insulin dose. Insulin 2021-06 Yes 20U inject 20 Unive rs Glargine 1-08 Units ity of ([place]ANTUS 00:00: under the [place] SOLOST[place] 00 skin in [facility] U-[facility] the Branch INSULIN) morning. 100 unit/mL Decrease (3 mL) the long injection acting insulin to 20 units once daily to avoid any low BGs. If fasting BG drops < 90, he will continue decrease the insulin dose. Insulin 2021-06 Yes 20U inject 20 Unive rs Glargine 1-08 Units ity of ([place]ANTUS 00:00: under the [place] SOLOST[place] 00 skin in [facility] U-[facility] the Branch INSULIN) morning. 100 unit/mL Decrease (3 mL) the long injection acting insulin to 20 units once daily to avoid any low BGs. If fasting BG drops < 90, he will continue decrease the insulin dose. Insulin 2021-06- No 20U inject 20 Univ ers Glargine 1-08 07-06 Units ity of (LANTUS 00:00: 00:00 under the [facility] SOLOSTAR 00 :00 skin in [facility] morning. 100 unit/mL Decrease (3 mL) the long injection acting insulin to 20 units once daily to avoid any low BGs. If fasting BG drops < 90, he will continue decrease the insulin dose. fenofibrate 2021-06 Yes [id number] 54mg Take 1 Univers 54 mg 0-19 tablet by ity of tablet 00:00: mouth in [place] the Medical morning. Branch fenofibrate 2021-06 Yes [id number] 54mg Take 1 Univers 54 mg 0-19 tablet by ity of tablet 00:00: mouth in [place] the Medical morning. Branch fenofibrate 2021-06 Yes [id number] 54mg Take 1 Univers 54 mg 0-19 tablet by ity of tablet 00:00: mouth in [place] the Medical morning. Branch fenofibrate 2021-06 Yes [id number] 54mg Take 1 [facility] 54 mg 0-19 tablet by ity of tablet 00:00: mouth in [place] 00 the Medical morning. Branch fenofibrate 2021-06 Yes [id number] 54mg Take 1 [facility] 54 mg 0-19 tablet by ity of tablet 00:00: mouth in [place] the Medical morning. Branch fenofibrate 2021-06 Yes [id number] 54mg Take 1 [facility] 54 mg 0-19 tablet by ity of tablet 00:00: mouth in [place] the Medical morning. Branch fenofibrate 2021-06 Yes [id number] 54mg Take 1 [facility] 54 mg 0-19 tablet by ity of tablet 00:00: mouth in [place] the Medical morning. Branch fenofibrate 2021-06 Yes [id number] 54mg Take 1 [facility] 54 mg 0-19 tablet by ity of tablet 00:00: mouth in [place] the Medical morning. Branch fenofibrate 2021-06 Yes [id number] 54mg Take 1 [facility] 54 mg 0-19 tablet by ity of tablet 00:00: mouth in [place] the Medical morning. Branch fenofibrate 2021-06 Yes [id number] 54mg Take 1 Univers 54 mg 0-19 tablet by ity of tablet 00:00: mouth in [place] the Medical morning. Branch fenofibrate 2021-06 Yes [id number] 54mg Take 1 [facility] 54 mg 0-19 tablet by ity of tablet 00:00: mouth in [place] the Medical morning. Branch fenofibrate 2021-06 Yes [id number] 54mg Take 1 Univers 54 mg 0-19 tablet by ity of tablet 00:00: mouth in [place] the Medical morning. Branch fenofibrate 2021-06 Yes [id number] 54mg Take 1 Univers 54 mg 0-19 tablet by ity of tablet 00:00: mouth in [place] the Medical morning. Branch fenofibrate 2021-06 Yes [id number] 54mg Take 1 Univers 54 mg 0-19 tablet by ity of tablet 00:00: mouth in [place] the Medical morning. Branch fenofibrate 2021- Yes [id number] 54mg Take 1 Univers 54 mg 0-19 tablet by ity of tablet 00:00: mouth in [place] 00 the Medical morning. Branch fenofibrate 2021- Yes [id number] 54mg Take 1 Univers 54 mg 0-19 tablet by ity of tablet 00:00: mouth in [place] 00 the Medical morning. Branch fenofibrate 2021-06 Yes [id number] 54mg Take 1 [facility] 54 mg 0-19 tablet by ity of tablet 00:00: mouth in [place] the Medical morning. Branch fenofibrate 2021-06 Yes [id number] 54mg Take 1 [facility] 54 mg 0-19 tablet by ity of tablet 00:00: mouth in [place] the Medical morning. Branch fenofibrate 2021-06 Yes [id number] 54mg Take 1 Univers 54 mg 0-19 tablet by ity of tablet 00:00: mouth in [place] the Medical morning. Branch fenofibrate 2021-06 Yes [id number] 54mg Take 1 [facility] 54 mg 0-19 tablet by ity of tablet 00:00: mouth in [place] the Medical morning. Branch fenofibrate 2021-06 Yes [id number] 54mg Take 1 Univers 54 mg 0-19 tablet by ity of tablet 00:00: mouth in [place] the Medical morning. Branch fenofibrate 2021-06 Yes [id number] 54mg Take 1 [facility] 54 mg 0-19 tablet by ity of tablet 00:00: mouth in [place] the Medical morning. Branch fenofibrate 2021-06 Yes [id number] 54mg Take 1 Univers 54 mg 0-19 tablet by ity of tablet 00:00: mouth in [place] the Medical morning. Branch fenofibrate 2021-06 Yes [id number] 54mg Take 1 [facility] 54 mg 0-19 tablet by ity of tablet 00:00: mouth in [place] the Medical morning. Branch fenofibrate 2021-06 Yes [id number] 54mg Take 1 Univers 54 mg 0-19 tablet by ity of tablet 00:00: mouth in [place] the Medical morning. Branch fenofibrate 2021-06 Yes [id number] 54mg Take 1 [facility] 54 mg 0-19 tablet by ity of tablet 00:00: mouth in [place] the Medical morning. Branch fenofibrate 2021- Yes [id number] 54mg Take 1 Univers 54 mg 0-19 tablet by ity of tablet 00:00: mouth in [place] 00 the Medical morning. Branch fenofibrate 2021- Yes [id number] 54mg Take 1 Univers 54 mg 0-19 tablet by ity of tablet 00:00: mouth in [place] 00 the Medical morning. Branch fenofibrate 2021-06 Yes [id number] 54mg Take 1 Univers 54 mg 0-19 tablet by ity of tablet 00:00: mouth in [place] 00 the Medical morning. Branch fenofibrate 2021-06 Yes [id number] 54mg Take 1 Univers 54 mg 0-19 tablet by ity of tablet 00:00: mouth in [place] the Medical morning. Branch fenofibrate 2021-06 Yes [id number] 54mg Take 1 Univers 54 mg 0-19 tablet by ity of tablet 00:00: mouth in [place] the Medical morning. Branch fenofibrate 2021-06 Yes [id number] 54mg Take 1 Univers 54 mg 0-19 tablet by ity of tablet 00:00: mouth in [place] the Medical morning. Branch fenofibrate 2021-06 Yes [id number] 54mg Take 1 Univers 54 mg 0-19 tablet by ity of tablet 00:00: mouth in [place] the Medical morning. Branch fenofibrate 2021-06 Yes [id number] 54mg Take 1 [facility] 54 mg 0-19 tablet by ity of tablet 00:00: mouth in [place] the Medical morning. Branch fenofibrate 2021-06 Yes [id number] 54mg Take 1 [facility] 54 mg 0-19 tablet by ity of tablet 00:00: mouth in [place] the Medical morning. Branch fenofibrate 2021-06 Yes [id number] 54mg Take 1 Univers 54 mg 0-19 tablet by ity of tablet 00:00: mouth in [place] the Medical morning. Branch fenofibrate 2021-06 Yes [id number] 54mg Take 1 Univers 54 mg 0-19 tablet by ity of tablet 00:00: mouth in [place] the Medical morning. Branch fenofibrate 2021-06 Yes [id number] 54mg Take 1 Univers 54 mg 0-19 tablet by ity of tablet 00:00: mouth in [place] 00 the Medical morning. Branch fenofibrate 2021-06 Yes [id number] 54mg Take 1 Univers 54 mg 0-19 tablet by ity of tablet 00:00: mouth in [place] 00 the Medical morning. Branch fenofibrate 2021-06 Yes [id number] 54mg Take 1 [facility] 54 mg 0-19 tablet by ity of tablet 00:00: mouth in [place] 00 the Medical morning. Branch fenofibrate 2021-06 Yes [id number] 54mg Take 1 Univers 54 mg 0-19 tablet by ity of tablet 00:00: mouth in [place] 00 the Medical morning. Branch fenofibrate 2021-06 Yes [id number] 54mg Take 1 Univers 54 mg 0-19 tablet by ity of tablet 00:00: mouth in [place] the Medical morning. Branch fenofibrate 2021-06 Yes [id number] 54mg Take 1 Univers 54 mg 0-19 tablet by ity of tablet 00:00: mouth in [place] the Medical morning. Branch fenofibrate 2021-06 Yes [id number] 54mg Take 1 [facility] 54 mg 0-19 tablet by ity of tablet 00:00: mouth in [place] the Medical morning. Branch fenofibrate 2021-06 Yes [id number] 54mg Take 1 Univers 54 mg 0-19 tablet by ity of tablet 00:00: mouth in [place] the Medical morning. Branch fenofibrate 2021-06 Yes [id number] 54mg Take 1 Univers 54 mg 0-19 tablet by ity of tablet 00:00: mouth in [place] the Medical morning. Branch fenofibrate 2021-06 Yes [id number] 54mg Take 1 Univers 54 mg 0-19 tablet by ity of tablet 00:00: mouth in [place] the Medical morning. Branch fenofibrate 2021-06 Yes [id number] 54mg Take 1 Univers 54 mg 0-19 tablet by ity of tablet 00:00: mouth in [place] the Medical morning. Branch fenofibrate 2021-06 Yes [id number] 54mg Take 1 Univers 54 mg 0-19 tablet by ity of tablet 00:00: mouth in [place] the Medical morning. Branch fenofibrate 2021-06 Yes [id number] 54mg Take 1 Univers 54 mg 0-19 tablet by ity of tablet 00:00: mouth in [place] 00 the Medical morning. Branch fenofibrate 2021-06 Yes [id number] 54mg Take 1 Univers 54 mg 0-19 tablet by ity of tablet 00:00: mouth in [place] 00 the Medical morning. Branch fenofibrate 2021- Yes [id number] 54mg Take 1 Univers 54 mg 0-19 tablet by ity of tablet 00:00: mouth in [place] 00 the Medical morning. Branch fenofibrate 2021-06 Yes [id number] 54mg Take 1 Univers 54 mg 0-19 tablet by ity of tablet 00:00: mouth in [place] 00 the Medical morning. Branch fenofibrate 2021-06 Yes [id number] 54mg Take 1 Univers 54 mg 0-19 tablet by ity of tablet 00:00: mouth in [place] 00 the Medical morning. Branch fenofibrate 2021-06 Yes [id number] 54mg Take 1 Univers 54 mg 0-19 tablet by ity of tablet 00:00: mouth in [place] 00 the Medical morning. Branch fenofibrate 2021-06- No [id number] 54mg Take 1 Univers 54 mg 0-19 04-26 tablet by ity of tablet 00:00: 00:00 mouth in [place] 00 :00 the Medical morning. [place] Proscar 5 Proscar 5 2021-06- No 1{table [...] 00:00: 00:00 00 :00 glipiZIDE 2021-06 Yes [id number] 10mg Take 1 Un [place] XL 10 mg 24 0-10 tablet by ity of hr tablet 00:00: mouth 00 daily with Medical breakfast. Branch glipiZIDE 2021-06 Yes [id number] 10mg Take 1 Un [place] XL 10 mg 24 0-10 tablet by ity of hr tablet 00:00: mouth 00 daily with Medical breakfast. Branch glipiZIDE 2021-06 Yes [id number] 10mg Take 1 Un [place] XL 10 mg 24 0-10 tablet by ity of hr tablet 00:00: mouth 00 daily with Medical breakfast. Branch glipiZIDE 2021-06 Yes [id number] 10mg Take 1 Un [place] XL 10 mg 24 0-10 tablet by ity of hr tablet 00:00: mouth [place] 00 daily with Medical breakfast. Branch glipiZIDE 2021-06 Yes [id number] 10mg Take 1 Un [place] XL 10 mg 24 0-10 tablet by ity of hr tablet 00:00: mouth [place] 00 daily with Medical breakfast. Branch glipiZIDE 2021-06 Yes [id number] 10mg Take 1 Un [place] XL 10 mg 24 0-10 tablet by ity of hr tablet 00:00: mouth [place] 00 daily with Medical breakfast. Branch glipiZIDE 2021-06 Yes [id number] 10mg Take 1 [facility] [place] XL 10 mg 24 0-10 tablet by ity of hr tablet 00:00: mouth [place] 00 daily with Medical breakfast. Branch glipiZIDE 2021-06 Yes [id number] 10mg Take 1 Un [place] XL 10 mg 24 0-10 tablet by ity of hr tablet 00:00: mouth [place] 00 daily with Medical breakfast. [place] glipiZIDE 2021-06 Yes [id number] 10mg Take 1 [facility] [place] XL 10 mg 24 0-10 tablet by ity of hr tablet 00:00: mouth [place] 00 daily with Medical breakfast. [place] glipiZIDE 2021-06 Yes [id number] 10mg Take 1 [facility] [place] XL 10 mg 24 0-10 tablet by ity of hr tablet 00:00: mouth [place] 00 daily with Medical breakfast. Branch glipiZIDE 2021-06 Yes [id number] 10mg Take 1 [facility] [place] XL 10 mg 24 0-10 tablet by ity of hr tablet 00:00: mouth [place] 00 daily with Medical breakfast. Branch glipiZIDE 2021-06 Yes [id number] 10mg Take 1 [facility] [place] XL 10 mg 24 0-10 tablet by ity of hr tablet 00:00: mouth [place] 00 daily with Medical breakfast. Branch glipiZIDE 2021-06 Yes [id number] 10mg Take 1 [facility] [place] XL 10 mg 24 0-10 tablet by ity of hr tablet 00:00: mouth [place] 00 daily with Medical breakfast. Branch glipiZIDE 2021-06 Yes [id number] 10mg Take 1 [facility] [place] XL 10 mg 24 0-10 tablet by ity of hr tablet 00:00: mouth [place] 00 daily with Medical breakfast. Branch glipiZIDE 2021-06 Yes [id number] 10mg Take 1 [facility] [place] XL 10 mg 24 0-10 tablet by ity of hr tablet 00:00: mouth [place] 00 daily with Medical breakfast. [place] glipiZIDE 2021-06 Yes [id number] 10mg Take 1 [facility] [place] XL 10 mg 24 0-10 tablet by ity of hr tablet 00:00: mouth [place] 00 daily with Medical breakfast. Branch glipiZIDE 2021-06 Yes [id number] 10mg Take 1 [facility] [place] XL 10 mg 24 0-10 tablet by ity of hr tablet 00:00: mouth [place] 00 daily with Medical breakfast. Branch glipiZIDE 2021-06 Yes [id number] 10mg Take 1 [facility] [place] XL 10 mg 24 0-10 tablet by ity of hr tablet 00:00: mouth [place] 00 daily with Medical breakfast. [place] glipiZIDE 2021-06 Yes [id number] 10mg Take 1 [facility] [place] XL 10 mg 24 0-10 tablet by ity of hr tablet 00:00: mouth [place] 00 daily with Medical breakfast. [place] glipiZIDE 2021-06 Yes [id number] 10mg Take 1 [facility] [place] XL 10 mg 24 0-10 tablet by ity of hr tablet 00:00: mouth [place] 00 daily with Medical breakfast. [place] glipiZIDE 2021-06 Yes [id number] 10mg Take 1 [facility] [place] XL 10 mg 24 0-10 tablet by ity of hr tablet 00:00: mouth [place] 00 daily with Medical breakfast. [place] glipiZIDE 2021-06 Yes [id number] 10mg Take 1 [facility] [place] XL 10 mg 24 0-10 tablet by ity of hr tablet 00:00: mouth [place] 00 daily with Medical breakfast. [place] glipiZIDE 2021-06 Yes [id number] 10mg Take 1 [facility] [place] XL 10 mg 24 0-10 tablet by ity of hr tablet 00:00: mouth [place] 00 daily with Medical breakfast. [place] glipiZIDE 2021-06 Yes [id number] 10mg Take 1 [facility] [place] XL 10 mg 24 0-10 tablet by ity of hr tablet 00:00: mouth [place] 00 daily with Medical breakfast. [place] glipiZIDE 2021-06 Yes [id number] 10mg Take 1 [facility] [place] XL 10 mg 24 0-10 tablet by ity of hr tablet 00:00: mouth [place] 00 daily with Medical breakfast. [place] glipiZIDE 2021-06 Yes [id number] 10mg Take 1 [facility] [place] XL 10 mg 24 0-10 tablet by ity of hr tablet 00:00: mouth [place] 00 daily with Medical breakfast. [place] glipiZIDE 2021-06 Yes [id number] 10mg Take 1 [facility] [place] XL 10 mg 24 0-10 tablet by ity of hr tablet 00:00: mouth [place] 00 daily with Medical breakfast. [place] glipiZIDE 2021-06 Yes [id number] 10mg Take 1 [facility] [place] XL 10 mg 24 0-10 tablet by ity of hr tablet 00:00: mouth [place] 00 daily with Medical breakfast. Branch glipiZIDE 2021-06 Yes [id number] 10mg Take 1 [facility] [place] XL 10 mg 24 0-10 tablet by ity of hr tablet 00:00: mouth [place] 00 daily with Medical breakfast. [place] glipiZIDE 2021-06 Yes [id number] 10mg Take 1 [facility] [place] XL 10 mg 24 0-10 tablet by ity of hr tablet 00:00: mouth [place] 00 daily with Medical breakfast. [place] glipiZIDE 2021-06 Yes [id number] 10mg Take 1 [facility] [place] XL 10 mg 24 0-10 tablet by ity of hr tablet 00:00: mouth [place] 00 daily with Medical breakfast. [place] glipiZIDE 2021-06 Yes [id number] 10mg Take 1 [facility] [place] XL 10 mg 24 0-10 tablet by ity of hr tablet 00:00: mouth [place] 00 daily with Medical breakfast. [place] glipiZIDE 2021-06 Yes [id number] 10mg Take 1 [facility] [place] XL 10 mg 24 0-10 tablet by ity of hr tablet 00:00: mouth [place] 00 daily with Medical breakfast. [place] glipiZIDE 2021-06 Yes [id number] 10mg Take 1 [facility] [place] XL 10 mg 24 0-10 tablet by ity of hr tablet 00:00: mouth [place] 00 daily with Medical breakfast. Branch glipiZIDE 2021-06 Yes [id number] 10mg Take 1 [facility] [place] XL 10 mg 24 0-10 tablet by ity of hr tablet 00:00: mouth [place] 00 daily with Medical breakfast. [place] glipiZIDE 2021-06 Yes [id number] 10mg Take 1 [facility] [place] XL 10 mg 24 0-10 tablet by ity of hr tablet 00:00: mouth [place] 00 daily with Medical breakfast. [place] glipiZIDE 2021-06 Yes [id number] 10mg Take 1 [facility] [place] XL 10 mg 24 0-10 tablet by ity of hr tablet 00:00: mouth [place] 00 daily with Medical breakfast. Branch glipiZIDE 2021-06 Yes [id number] 10mg Take 1 [facility] [place] XL 10 mg 24 0-10 tablet by ity of hr tablet 00:00: mouth [place] 00 daily with Medical breakfast. Branch glipiZIDE 2021-06 Yes [id number] 10mg Take 1 [facility] [place] XL 10 mg 24 0-10 tablet by ity of hr tablet 00:00: mouth [place] 00 daily with Medical breakfast. Branch glipiZIDE 2021-06 Yes [id number] 10mg Take 1 [facility] [place] XL 10 mg 24 0-10 tablet by ity of hr tablet 00:00: mouth [place] 00 daily with Medical breakfast. Branch glipiZIDE 2021-06 Yes [id number] 10mg Take 1 [facility] [place] XL 10 mg 24 0-10 tablet by ity of hr tablet 00:00: mouth [place] 00 daily with Medical breakfast. Branch glipiZIDE 2021-06 Yes [id number] 10mg Take 1 [facility] [place] XL 10 mg 24 0-10 tablet by ity of hr tablet 00:00: mouth [place] 00 daily with Medical breakfast. Branch glipiZIDE 2021-06 Yes [id number] 10mg Take 1 [facility] [place] XL 10 mg 24 0-10 tablet by ity of hr tablet 00:00: mouth [place] 00 daily with Medical breakfast. Branch glipiZIDE 2021-06 Yes [id number] 10mg Take 1 [facility] [place] XL 10 mg 24 0-10 tablet by ity of hr tablet 00:00: mouth [place] 00 daily with Medical breakfast. Branch glipiZIDE 2021-06 Yes [id number] 10mg Take 1 [facility] [place] XL 10 mg 24 0-10 tablet by ity of hr tablet 00:00: mouth [place] 00 daily with Medical breakfast. Branch glipiZIDE 2021-06 Yes [id number] 10mg Take 1 [facility] [place] XL 10 mg 24 0-10 tablet by ity of hr tablet 00:00: mouth [place] 00 daily with Medical breakfast. Branch glipiZIDE 2021-06 Yes [id number] 10mg Take 1 [facility] [place] XL 10 mg 24 0-10 tablet by ity of hr tablet 00:00: mouth [place] 00 daily with Medical breakfast. Branch glipiZIDE 2021-06 Yes [id number] 10mg Take 1 [facility] [place] XL 10 mg 24 0-10 tablet by ity of hr tablet 00:00: mouth [place] 00 daily with Medical breakfast. Branch glipiZIDE 2021-06 Yes [id number] 10mg Take 1 [facility] [place] XL 10 mg 24 0-10 tablet by ity of hr tablet 00:00: mouth [place] 00 daily with Medical breakfast. Branch glipiZIDE 2021-06 Yes [id number] 10mg Take 1 [facility] [place] XL 10 mg 24 0-10 tablet by ity of hr tablet 00:00: mouth [place] 00 daily with Medical breakfast. Branch glipiZIDE 2021-06 Yes [id number] 10mg Take 1 [facility] [place] XL 10 mg 24 0-10 tablet by ity of hr tablet 00:00: mouth [place] 00 daily with Medical breakfast. [place] glipiZIDE 2021-06 Yes [id number] 10mg Take 1 [facility] [place] XL 10 mg 24 0-10 tablet by ity of hr tablet 00:00: mouth [place] 00 daily with Medical breakfast. [place] glipiZIDE 2021-06 Yes [id number] 10mg Take 1 [facility] [place] XL 10 mg 24 0-10 tablet by ity of hr tablet 00:00: mouth [place] 00 daily with Medical breakfast. [place] glipiZIDE 2021-06 Yes [id number] 10mg Take 1 [facility] [place] XL 10 mg 24 0-10 tablet by ity of hr tablet 00:00: mouth [place] 00 daily with Medical breakfast. [place] glipiZIDE 2021-06 Yes [id number] 10mg Take 1 [facility] [place] XL 10 mg 24 0-10 tablet by ity of hr tablet 00:00: mouth [place] 00 daily with Medical breakfast. [place] glipiZIDE 2021-06 Yes [id number] 10mg Take 1 [facility] [place] XL 10 mg 24 0-10 tablet by ity of hr tablet 00:00: mouth [place] 00 daily with Medical breakfast. Branch glipiZIDE 2021-06 Yes [id number] 10mg Take 1 [facility] [place] XL 10 mg 24 0-10 tablet by ity of hr tablet 00:00: mouth [place] 00 daily with Medical breakfast. Branch glipiZIDE 2021-06 Yes [id number] 10mg Take 1 [facility] [place] XL 10 mg 24 0-10 tablet by ity of hr tablet 00:00: mouth [place] 00 daily with Medical breakfast. [place] glipiZIDE 2021-06 Yes [id number] 10mg Take 1 [facility] [place] XL 10 mg 24 0-10 tablet by ity of hr tablet 00:00: mouth [place] 00 daily with Medical breakfast. Branch glipiZIDE 2021-06 Yes [id number] 10mg Take 1 [facility] [place] XL 10 mg 24 0-10 tablet by ity of hr tablet 00:00: mouth [place] 00 daily with Medical breakfast. Branch glipiZIDE 2021-06 Yes [id number] 10mg Take 1 [facility] [place] XL 10 mg 24 0-10 tablet by ity of hr tablet 00:00: mouth [place] 00 daily with Medical breakfast. Branch glipiZIDE 2021-06 Yes [id number] 10mg Take 1 [facility] XL 10 mg 24 0-10 tablet by ity of hr tablet 00:00: mouth [place] 00 daily with Medical breakfast. [place] glipiZIDE 2021-06 Yes [id number] 10mg Take 1 [facility] [place] XL 10 mg 24 0-10 tablet by ity of hr tablet 00:00: mouth [place] 00 daily with Medical breakfast. [place] glipiZIDE 2021-06 Yes [id number] 10mg Take 1 [facility] [place] XL 10 mg 24 0-10 tablet by ity of hr tablet 00:00: mouth [place] 00 daily with Medical breakfast. [place] glipiZIDE 2021-06 Yes [id number] 10mg Take 1 [facility] [place] XL 10 mg 24 0-10 tablet by ity of hr tablet 00:00: mouth [place] 00 daily with Medical breakfast. [place] glipiZIDE 2021-06 Yes [id number] 10mg Take 1 [facility] [place] XL 10 mg 24 0-10 tablet by ity of hr tablet 00:00: mouth [place] 00 daily with Medical breakfast. [place] glipiZIDE 2021-06 Yes [id number] 10mg Take 1 [facility] [place] XL 10 mg 24 0-10 tablet by ity of hr tablet 00:00: mouth [place] 00 daily with Medical breakfast. Branch glipiZIDE 2021-06 Yes [id number] 10mg Take 1 [facility] [place] XL 10 mg 24 0-10 tablet by ity of hr tablet 00:00: mouth [place] 00 daily with Medical breakfast. Branch glipiZIDE 2021-06 Yes [id number] 10mg Take 1 [facility] [place] XL 10 mg 24 0-10 tablet by ity of hr tablet 00:00: mouth [place] 00 daily with Medical breakfast. Branch glipiZIDE 2021-06 Yes [id number] 10mg Take 1 [facility] [place] XL 10 mg 24 0-10 tablet by ity of hr tablet 00:00: mouth [place] 00 daily with Medical breakfast. Branch glipiZIDE 2021-06 Yes [id number] 10mg Take 1 [facility] [place] XL 10 mg 24 0-10 tablet by ity of hr tablet 00:00: mouth [place] 00 daily with Medical breakfast. Branch glipiZIDE 2021-06 Yes [id number] 10mg Take 1 [facility] [place] XL 10 mg 24 0-10 tablet by ity of hr tablet 00:00: mouth [place] 00 daily with Medical breakfast. Branch glipiZIDE 2021-06 Yes [id number] 10mg Take 1 [facility] [place] XL 10 mg 24 0-10 tablet by ity of hr tablet 00:00: mouth [place] 00 daily with Medical breakfast. Branch glipiZIDE 2021-06 Yes [id number] 10mg Take 1 [facility] [place] XL 10 mg 24 0-10 tablet by ity of hr tablet 00:00: mouth [place] 00 daily with Medical breakfast. Branch glipiZIDE 2021-06- No [id number] 10mg Take 1 [facility] XL 10 mg 24 0-10 07-06 tablet by it y of hr tablet 00:00: 00:00 mouth [place] 00 :00 daily with Medical breakfast. Branch glipiZIDE 2021-06- No [id number] 10mg Take 1 [facility] 10 mg 0-10 10-10 tablet by ity of tablet 00:00: 00:00 mouth in [place] 00 :00 the Medical morning. Branch glipiZIDE 2021-06- No [id number] 10mg Take 1 [facility] 10 mg 0-10 10-10 tablet by ity of tablet 00:00: 00:00 mouth in [place] 00 :00 the Medical morning. Branch lovastatin 2021-06- No 40mg Take 40 mg [facility] 40 mg 0-04 10-04 by mouth ity of tablet 12:53: 00:00 daily. [place] 29 :00 Medical [place] LOVASTATIN 2021-06 Yes [id number] TAKE 1 [facility] nivers 40 mg 0-04 TABLET BY ity of tablet 00:00: MOUTH WITH [place] 00 EVENING Medical MEAL 90 Branch LOVASTATIN 2021-06 Yes [id number] TAKE 1 [facility] n[facility] 40 mg 0-04 TABLET BY ity of tablet 00:00: MOUTH WITH EVENING Medical MEAL 90 Branch LOVASTATIN 2021-06 Yes [id number] TAKE 1 [facility] 40 mg 0-04 TABLET BY ity of tablet 00:00: MOUTH WITH EVENING Medical MEAL 90 Branch LOVASTATIN 2021-06 Yes [id number] TAKE 1 [facility] 40 mg 0-04 TABLET BY ity of tablet 00:00: MOUTH WITH EVENING Medical MEAL 90 Branch LOVASTATIN 2021-06 Yes [id number] TAKE 1 [facility] 40 mg 0-04 TABLET BY ity of tablet 00:00: MOUTH WITH EVENING Medical MEAL 90 Branch LOVASTATIN 2021-06 Yes [id number] TAKE 1 [facility] 40 mg 0-04 TABLET BY ity of tablet 00:00: MOUTH WITH EVENING Medical MEAL 90 Branch LOVASTATIN 2021-06 Yes [id number] TAKE 1 [facility] 40 mg 0-04 TABLET BY ity of tablet 00:00: MOUTH WITH EVENING Medical MEAL 90 Branch LOVASTATIN 2021-06 Yes [id number] TAKE 1 [facility] 40 mg 0-04 TABLET BY ity of tablet 00:00: MOUTH WITH EVENING Medical MEAL 90 Branch LOVASTATIN 2021-06 Yes [id number] TAKE 1 [facility] 40 mg 0-04 TABLET BY ity of tablet 00:00: MOUTH WITH EVENING Medical MEAL 90 Branch LOVASTATIN 2021-06 Yes [id number] TAKE 1 [facility] 40 mg 0-04 TABLET BY ity of tablet 00:00: MOUTH WITH EVENING Medical MEAL 90 Branch LOVASTATIN 2021-06 Yes [id number] TAKE 1 [facility] 40 mg 0-04 TABLET BY ity of tablet 00:00: MOUTH WITH EVENING Medical MEAL 90 Branch LOVASTATIN 2021-06 Yes [id number] TAKE 1 [facility] 40 mg 0-04 TABLET BY ity of tablet 00:00: MOUTH WITH EVENING Medical MEAL 90 Branch LOVASTATIN 2021-06 Yes [id number] TAKE 1 [facility] 40 mg 0-04 TABLET BY ity of tablet 00:00: MOUTH WITH EVENING Medical MEAL 90 Branch LOVASTATIN 2021-06 Yes [id number] TAKE 1 [facility] 40 mg 0-04 TABLET BY ity of tablet 00:00: MOUTH WITH [place] 00 EVENING Medical MEAL 90 Branch LOVASTATIN 2021-06 Yes [id number] TAKE 1 [facility] 40 mg 0-04 TABLET BY ity of tablet 00:00: MOUTH WITH [place] 00 EVENING Medical MEAL 90 Branch LOVASTATIN 2021-06 Yes [id number] TAKE 1 [facility] n[facility] 40 mg 0-04 TABLET BY ity of tablet 00:00: MOUTH WITH [place] 00 EVENING Medical MEAL 90 Branch LOVASTATIN 2021-06- No [id number] TAKE 1 [facility] 40 mg 0-04 12-22 TABLET BY ity of tablet 00:00: 00:00 MOUTH [place] 00 :00 EVENING Medical MEAL 90 Branch TOPIRAMATE 2021- No 50mg Take 50 mg [facility] ORAL 01-26-15 by mouth ity of 14:03: 00:00 at [place] 47 :00 bedtime. Medical Branch tamsulosin 2021- No Take by [facility] vers (FLOMAX) 01-26-15 mouth ity of 0.4 mg 24 14:02: 00:00 daily. [place] hr capsule 29 :00 Medical Branch traZODONE 2021- No 100mg Take 100 [facility] (DESYREL) 8 08-15 mg by ity of 100 mg 14:02: 00:00 mouth at [place] tablet 19 :00 bedtime. Medical Branch Tamsulosin Tamsulosin 2022- No 2{capsu QD Tamsulosin HCl 0.4 MG HCl 0.4 MG 12-24 les} HCl 0.4 MG 00:00: 00:00 00 :00 Tamsulosin Tamsulosin 2022- No 2{capsu QD Tamsulosin HCl 0.4 MG HCl 0.4 MG 12-24 les} HCl 0.4 MG 00:00: 00:00 00 :00 topiramate 2021- No [id number] 50mg Take 1 [facility] 50 mg 12-22-15 tablet by ity of tablet 00:00: 00:00 mouth at [place] 00 :00 bedtime. Medical Branch gabapentin Yes [...] by mouth ity of tablet 13:57: daily. [place] [address] Medical Branch metFORMIN Yes 500mg Take 500 [facility] vers 500 mg 5-13 mg by ity of tablet 13:57: mouth [place] 16 daily. Medical Branch pantoprazol Yes 40mg Take 40 mg [facility] e 40 mg EC 5-13 by mouth ity o f tablet 13:57: daily. [place] [address] Medical Branch mirtazapine Yes 15mg Take 15 [...] 5-13 mg by ity of 13:57: mouth. [place] [address] Indication Medical s: 2 Branch tablets BID gabapentin Yes 800mg Take 800 Un [facility] [...] by mouth ity of tablet 13:57: daily. [place] [address] Medical Branch metFORMIN Yes 500mg Take 500 [facility] vers 500 mg 5-13 mg by ity of tablet 13:57: mouth [place] 16 daily. Medical Branch pantoprazol Yes 40mg Take 40 mg [facility] e 40 mg EC 5-13 by mouth ity o f tablet 13:57: daily. [place] [address] Medical Branch mirtazapine 0 Yes 15mg Take 15 mg [facility] 15 mg 5-13 by mouth ity of tablet 13:57: at [place] 16 bedtime. Medical Branch SITagliptin Yes Take by [facility] vers -metformin 5-13 mouth. ity of (JANUMET 13:57: Indication [place] as XR) 16 s: 2 tabs Medical 50-1,000 mg BID Branch per tablet BUPROPION Yes 150mg Take 150 [facility] vers HCL ORAL 5-13 mg by ity of 13:57: mouth. [place] [address] Indication Medical s: 2 Branch tablets BID gabapentin Yes 800mg Take 800 [facility] (NEURONTIN) 5-13 mg by ity of 300 mg 13:57: mouth 3 [place] capsule 16 (three) Medical times Branch daily. atorvastati Yes 10mg Take 10 mg [facility] n (LIPITOR) 5-13 by mouth ity of 10 mg 13:57: at [facility] 16 bedtime. Medical Branch HYDROcodone Yes 1{tbl} Take 1 [facility] [place] -acetaminop 5-13 tablet by ity of hen (NORCO) 13:57: mouth [place] 10-325 mg 16 every 6 Medical tablet (six) Branch hours as needed. meloxicam Yes 15mg Take 15 mg [facility] [place] 15 mg 5-13 by mouth ity of tablet 13:57: daily. [place] [address] Medical Branch metFORMIN Yes 500mg Take 500 [facility] vers 500 mg 5-13 mg by ity of tablet 13:57: mouth [place] 16 daily. Medical Branch pantoprazol Yes 40mg Take 40 mg [facility] e 40 mg EC 5-13 by mouth ity o f tablet 13:57: daily. [place] [address] Medical Branch mirtazapine 0 Yes 15mg Take 15 mg [facility] 15 mg 5-13 by mouth ity of tablet 13:57: at [place] 16 bedtime. Medical Branch SITagliptin Yes Take by [facility] vers -metformin 5-13 mouth. ity of (JUNUMET 13:57: Indication [place] as XR) 16 s: 2 tabs Medical 50-1,000 mg BID Branch per tablet BUPROPION 0 Yes 150mg Take 150 [facility] vers HCL ORAL 5-13 mg by ity of 13:57: mouth. [place] [address] Indication Medical s: 2 Branch tablets BID gabapentin 0 Yes 800mg Take 800 [facility] [place] (NEURONTIN) 5-13 mg by ity of 300 mg 13:57: mouth 3 [place] capsule 16 (three) Medical times Branch daily. atorvastati Yes 10mg Take 10 mg [facility] n (LIPITOR) 5-13 by mouth ity of 10 mg 13:57: at [facility] 16 bedtime. Medical Branch HYDROcodone Yes 1{tbl} Take 1 [facility] [place] -acetaminop 5-13 tablet by ity of hen (NORCO) 13:57: mouth [place] 10-325 mg 16 every 6 Medical tablet (six) Branch hours as needed. meloxicam Yes 15mg Take 15 mg [facility] [place] 15 mg 5-13 by mouth ity of tablet 13:57: daily. [place] [address] Medical Branch metFORMIN Yes 500mg Take 500 [facility] vers 500 mg 5-13 mg by ity of tablet 13:57: mouth [place] 16 daily. Medical Branch pantoprazol Yes 40mg Take 40 mg [facility] e 40 mg EC 5-13 by mouth ity o f tablet 13:57: daily. [place] [address] Medical Branch mirtazapine Yes 15mg Take 15 [...] 5-13 mg by ity of 13:57: mouth. [place] [address] Indication Medical s: 2 Branch tablets BID gabapentin 0 Yes 800mg Take 800 [facility] [place] (NEURONTIN) 5-13 mg by ity of 300 mg 13:57: mouth 3 [place] capsule 16 (three) Medical times Branch daily. atorvastati Yes 10mg Take 10 mg [facility] n (LIPITOR) 5-13 by mouth ity of 10 mg 13:57: at [place] tablet 16 bedtime. Medical Branch HYDROcodone Yes 1{tbl} Take 1 [facility] [place] -acetaminop 5-13 tablet by ity of hen (NORCO) 13:57: mouth [place] 10-325 mg 16 every 6 Medical tablet (six) Branch hours as needed. meloxicam Yes 15mg Take 15 mg [facility] 15 mg 5-13 by mouth ity of tablet 13:57: daily. [place] [address] Medical Branch metFORMIN Yes 500mg Take 500 [facility] vers 500 mg 5-13 mg by ity of tablet 13:57: mouth [place] 16 daily. Medical Branch pantoprazol Yes 40mg Take 40 mg [facility] e 40 mg EC 5-13 by mouth ity o f tablet 13:57: daily. [place] [address] Medical Branch mirtazapine Yes 15mg Take 15 mg [facility] 15 mg 5-13 by mouth ity of tablet 13:57: at [place] 16 bedtime. Medical Branch SITagliptin Yes Take by [facility] vers -metformin 5-13 mouth. ity of (JANUMET 13:57: Indication [place] as XR) 16 s: 2 tabs Medical 50-1,000 mg BID Branch per tablet BUPROPION Yes 150mg Take 150 [facility] vers HCL ORAL 5-13 mg by ity of 13:57: mouth. [place] [address] Indication Medical s: 2 Branch tablets BID gabapentin Yes 800mg Take 800 [facility] [place] (NEURONTIN) 5-13 mg by ity of 300 mg 13:57: mouth 3 [place] capsule 16 (three) Medical times Branch daily. atorvastati Yes 10mg Take 10 mg [facility] n (LIPITOR) 5-13 by mouth ity of 10 mg 13:57: at [place] tablet 16 bedtime. Medical Branch HYDROcodone Yes 1{tbl} Take 1 [facility] [place] -acetaminop 5-13 tablet by ity of hen (NORCO) 13:57: mouth [place] 10-325 mg 16 every 6 Medical tablet (six) Branch hours as needed. meloxicam 0 Yes 15mg Take 15 mg [facility] [place] 15 mg 5-13 by mouth ity of tablet 13:57: daily. [place] [address] Medical Branch metFORMIN 0 Yes 500mg Take 500 [facility] vers 500 mg 5-13 mg by ity of tablet 13:57: mouth [place] 16 daily. Medical Branch pantoprazol 0 Yes 40mg Take 40 mg [facility] e 40 mg EC 5-13 by mouth ity o f tablet 13:57: daily. [place] [address] Medical Branch mirtazapine 0 Yes 15mg Take [...] 5-13 mg by ity of 13:57: mouth. [place] [address] Indication Medical s: 2 Branch tablets BID gabapentin Yes 800mg Take 800 [facility] [place] (NEURONTIN) 5-13 mg by ity of 300 mg 13:57: mouth 3 [place] capsule 16 (three) Medical times Branch daily. atorvastati Yes 10mg Take 10 mg [facility] n (LIPITOR) 5-13 by mouth ity of 10 mg 13:57: at [place] [facility] 16 bedtime. Medical Branch HYDROcodone Yes 1{tbl} Take 1 [facility] [place] -acetaminop 5-13 tablet by ity of hen (NORCO) 13:57: mouth [place] 10-325 mg 16 every 6 Medical tablet (six) Branch hours as needed. meloxicam Yes 15mg Take 15 mg [facility] [place] 15 mg 5-13 by mouth ity of tablet 13:57: daily. [place] [address] Medical Branch metFORMIN Yes 500mg Take 500 [facility] vers 500 mg 5-13 mg by ity of tablet 13:57: mouth [place] 16 daily. Medical Branch pantoprazol Yes 40mg Take 40 mg [facility] e 40 mg EC 5-13 by mouth ity o f tablet 13:57: daily. [place] [address] Medical Branch mirtazapine 0 Yes 15mg Take [...] 5-13 mg by ity of 13:57: mouth. [place] [address] Indication Medical s: 2 Branch tablets BID gabapentin Yes 800mg Take 800 [facility] [place] (NEURONTIN) 5-13 mg by ity of 300 mg 13:57: mouth 3 [place] capsule 16 (three) Medical times Branch daily. atorvastati Yes 10mg Take 10 mg [facility] n (LIPITOR) 5-13 by mouth ity of 10 mg 13:57: at [facility] 16 bedtime. Medical Branch HYDROcodone Yes 1{tbl} Take 1 [facility] [place] -acetaminop 5-13 tablet by ity of hen (NORCO) 13:57: mouth [place] 10-325 mg 16 every 6 Medical tablet (six) Branch hours as needed. meloxicam Yes 15mg Take 15 mg [facility] [place] 15 mg 5-13 by mouth ity of tablet 13:57: daily. [place] [address] Medical Branch metFORMIN Yes 500mg Take 500 [facility] vers 500 mg 5-13 mg by ity of tablet 13:57: mouth [place] 16 daily. Medical Branch pantoprazol Yes 40mg Take 40 mg [facility] e 40 mg EC 5-13 by mouth ity o f tablet 13:57: daily. [place] [address] Medical Branch mirtazapine Yes 15mg Take 15 mg [facility] 15 mg 5-13 by mouth ity of tablet 13:57: at [place] 16 bedtime. Medical Branch SITagliptin Yes Take by [facility] vers -metformin 5-13 mouth. ity of ( 13:57: Indication [place] as XR) 16 s: 2 tabs Medical 50-1,000 mg BID Branch per tablet BUPROPION 0 Yes 150mg Take 150 Uni vers HCL ORAL 5-13 mg by ity of 13:57: mouth. [place] [address] Indication Medical s: 2 Branch tablets BID gabapentin Yes 800mg Take 800 Un [facility] [...] by mouth ity of tablet 13:57: daily. [place] [address] Medical Branch metFORMIN 0 Yes 500mg Take 500 [facility] vers 500 mg 5-13 mg by ity of tablet 13:57: mouth [place] 16 daily. Medical Branch pantoprazol Yes 40mg Take 40 mg [facility] e 40 mg EC 5-13 by mouth ity o f tablet 13:57: daily. [place] [address] Medical Branch mirtazapine 0 Yes 15mg Take 15 mg [facility] 15 mg 5-13 by mouth ity of tablet 13:57: at [place] 16 bedtime. Medical Branch SITagliptin Yes Take by [facility] vers -metformin 5-13 mouth. ity of (JANUMET 13:57: Indication [place] as XR) 16 s: 2 tabs Medical 50-1,000 mg BID Branch per tablet BUPROPION 0 Yes 150mg Take 150 Uni vers HCL ORAL 5-13 mg by ity of 13:57: mouth. [place] 16 Indication Medical s: 2 Branch tablets BID gabapentin Yes 800mg Take 800 Un [facility] [...] by mouth ity of tablet 13:57: daily. [place] [address] Medical Branch metFORMIN 0 Yes 500mg Take 500 [facility] vers 500 mg 5-13 mg by ity of tablet 13:57: mouth [place] 16 daily. Medical Branch pantoprazol Yes 40mg Take 40 mg [facility] e 40 mg EC 5-13 by mouth ity o f tablet 13:57: daily. [place] [address] Medical Branch mirtazapine 0 Yes 15mg Take [...] 5-13 mg by ity of 13:57: mouth. [place] [address] Indication Medical s: 2 Branch tablets BID gabapentin Yes 800mg Take 800 Un [facility] [...] by mouth ity of tablet 13:57: daily. [place] [address] Medical Branch metFORMIN 0 Yes 500mg Take 500 Uni vers 500 mg 5-13 mg by ity of tablet 13:57: mouth [place] 16 daily. Medical Branch pantoprazol 0 Yes 40mg Take 40 mg [facility] e 40 mg EC 5-13 by mouth ity o f tablet 13:57: daily. [place] [address] Medical Branch mirtazapine Yes 15mg Take 15 mg [facility] 15 mg 5-13 by mouth ity of tablet 13:57: at [place] [address] bedtime. Medical Branch SITagliptin Yes Take by Uni vers -metformin 5-13 mouth. ity of (JUNUMET 13:57: Indication [place] as XR) 16 s: 2 tabs Medical 50-1,000 mg BID Branch per tablet BUPROPION Yes 150mg Take 150 [facility] vers HCL ORAL 5-13 mg by ity of 13:57: mouth. [place] [address] Indication Medical s: 2 Branch tablets BID gabapentin Yes 800mg Take 800 Un [place] (NEURONTIN) 5-13 mg by ity of 300 mg 13:57: mouth 3 [place] capsule 16 (three) Medical times Branch daily. atorvastati Yes 10mg Take 10 mg [facility] n (LIPITOR) 5-13 by mouth ity of 10 mg 13:57: at [facility] 16 bedtime. Medical Branch HYDROcodone Yes 1{tbl} Take 1 Un [place] -acetaminop 5-13 tablet by ity of hen (NORCO) 13:57: mouth [place] 10-325 mg 16 every 6 Medical tablet (six) Branch hours as needed. meloxicam Yes 15mg Take 15 mg [facility] [place] 15 mg 5-13 by mouth ity of tablet 13:57: daily. [place] [address] Medical Branch metFORMIN Yes 500mg Take 500 [facility] vers 500 mg 5-13 mg by ity of tablet 13:57: mouth [place] 16 daily. Medical Branch pantoprazol Yes 40mg Take 40 mg [facility] e 40 mg EC 5-13 by mouth ity o f tablet 13:57: daily. [place] [address] Medical Branch mirtazapine Yes 15mg Take 15 mg [facility] 15 mg 5-13 by mouth ity of tablet 13:57: at [place] [address] bedtime. Medical Branch SITagliptin Yes Take by [facility] vers -metformin 5-13 mouth. ity of (JUNUMET 13:57: Indication [place] as XR) 16 s: 2 tabs Medical 50-1,000 mg BID Branch per tablet BUPROPION Yes 150mg Take 150 Uni vers HCL ORAL 5-13 mg by ity of 13:57: mouth. [place] [address] Indication Medical s: 2 Branch tablets BID gabapentin Yes 800mg Take 800 Un [place] [...] by mouth ity of tablet 13:57: daily. [place] [address] Medical Branch metFORMIN Yes 500mg Take 500 [facility] vers 500 mg 5-13 mg by ity of tablet 13:57: mouth [place] 16 daily. Medical Branch pantoprazol Yes 40mg Take 40 mg [facility] e 40 mg EC 5-13 by mouth ity o f tablet 13:57: daily. [place] [address] Medical Branch mirtazapine Yes 15mg Take 15 mg [facility] 15 mg 5-13 by mouth ity of tablet 13:57: at [place] [address] bedtime. Medical Branch SITagliptin Yes Take by [facility] vers -metformin 5-13 mouth. ity of (JANUMET 13:57: Indication [place] as XR) 16 s: 2 tabs Medical 50-1,000 mg BID Branch per tablet BUPROPION Yes 150mg Take 150 [facility] vers HCL ORAL 5-13 mg by ity of 13:57: mouth. [place] [address] Indication Medical s: 2 Branch tablets BID gabapentin Yes 800mg Take 800 [facility] [place] (NEURONTIN) 5-13 mg by ity of 300 mg 13:57: mouth 3 [place] capsule 16 (three) Medical times Branch daily. atorvastati Yes 10mg Take 10 mg [facility] n (LIPITOR) 5-13 by mouth ity of 10 mg 13:57: at [place] tablet 16 bedtime. Medical Branch HYDROcodone Yes 1{tbl} Take 1 Un [place] -acetaminop 5-13 tablet by ity of hen (NORCO) 13:57: mouth [place] 10-325 mg 16 every 6 Medical tablet (six) Branch hours as needed. meloxicam 0 Yes 15mg Take 15 mg [facility] [place] 15 mg 5-13 by mouth ity of tablet 13:57: daily. [place] [address] Medical Branch metFORMIN 0 Yes 500mg Take 500 [facility] vers 500 mg 5-13 mg by ity of tablet 13:57: mouth [place] 16 daily. Medical Branch pantoprazol Yes 40mg Take 40 mg [facility] e 40 mg EC 5-13 by mouth ity o f tablet 13:57: daily. [place] [address] Medical Branch mirtazapine Yes 15mg Take 15 [...] 5-13 mg by ity of 13:57: mouth. [place] [address] Indication Medical s: 2 Branch tablets BID gabapentin Yes 800mg Take 800 Un [place] [...] by mouth ity of tablet 13:57: daily. [place] [address] Medical Branch metFORMIN 0 Yes 500mg Take 500 [facility] vers 500 mg 5-13 mg by ity of tablet 13:57: mouth [place] 16 daily. Medical Branch pantoprazol Yes 40mg Take 40 mg [facility] e 40 mg EC 5-13 by mouth ity o f tablet 13:57: daily. [place] [address] Medical Branch mirtazapine 0 Yes 15mg Take [...] Indication Medical s: 2 Branch tablets BID gabapentin Yes 800mg Take 800 [facility] [place] (NEURONTIN) 5-13 mg by ity of 300 mg 13:57: mouth 3 [place] capsule 16 (three) Medical times Branch daily. atorvastati Yes 10mg Take 10 mg [facility] n (LIPITOR) 5-13 by mouth ity of 10 mg 13:57: at [place] [facility] 16 bedtime. Medical Branch HYDROcodone Yes 1{tbl} Take 1 Un [place] -acetaminop 5-13 tablet by ity of hen (NORCO) 13:57: mouth [place] 10-325 mg 16 every 6 Medical tablet (six) Branch hours as needed. meloxicam Yes 15mg Take 15 mg [facility] [place] 15 mg 5-13 by mouth ity of tablet 13:57: daily. [place] [address] Medical Branch metFORMIN Yes 500mg Take 500 [facility] vers 500 mg 5-13 mg by ity of tablet 13:57: mouth [place] 16 daily. Medical Branch pantoprazol Yes 40mg Take 40 mg [facility] e 40 mg EC 5-13 by mouth ity o f tablet 13:57: daily. [place] [address] Medical Branch mirtazapine 0 Yes 15mg Take [...] 5-13 mg by ity of 13:57: mouth. [place] [address] Indication Medical s: 2 Branch tablets BID gabapentin 0 Yes 800mg Take 800 [facility] [place] (NEURONTIN) 5-13 mg by ity of 300 mg 13:57: mouth 3 [place] capsule 16 (three) Medical times Branch daily. atorvastati 0 Yes 10mg Take 10 mg [facility] n (LIPITOR) 5-13 by mouth ity of 10 mg 13:57: at [place] tablet 16 bedtime. Medical Branch HYDROcodone 0 Yes 1{tbl} Take 1 Un [place] -acetaminop 5-13 tablet by ity of hen (NORCO) 13:57: mouth [place] 10-325 mg 16 every 6 Medical tablet (six) Branch hours as needed. meloxicam 0 Yes 15mg Take 15 mg [facility] [place] 15 mg 5-13 by mouth ity of tablet 13:57: daily. [place] [address] Medical Branch metFORMIN 0 Yes 500mg Take 500 [facility] vers 500 mg 5-13 mg by ity of tablet 13:57: mouth [place] 16 daily. Medical Branch pantoprazol 0 Yes 40mg Take 40 mg [facility] e 40 mg EC 5-13 by mouth ity o f tablet 13:57: daily. [place] [address] Medical Branch mirtazapine 0 Yes 15mg Take 15 mg [facility] 15 mg 5-13 by mouth ity of tablet 13:57: at [place] 16 bedtime. Medical Branch SITagliptin Yes Take by [facility] vers -metformin 5-13 mouth. ity of (JANUMET 13:57: Indication [place] as XR) 16 s: 2 tabs Medical 50-1,000 mg BID Branch per tablet BUPROPION 0 Yes 150mg Take 150 Uni vers HCL ORAL 5-13 mg by ity of 13:57: mouth. [place] [address] Indication Medical s: 2 Branch tablets BID gabapentin 0 Yes 800mg Take 800 [facility] [place] (NEURONTIN) 5-13 mg by ity of 300 mg 13:57: mouth 3 [place] capsule 16 (three) Medical times Branch daily. [...] by mouth ity of tablet 13:57: daily. [place] [address] Medical Branch metFORMIN 0 Yes 500mg Take 500 [facility] vers 500 mg 5-13 mg by ity of tablet 13:57: mouth [place] 16 daily. Medical Branch pantoprazol 0 Yes 40mg Take 40 mg [facility] e 40 mg EC 5-13 by mouth ity o f tablet 13:57: daily. [place] [address] Medical Branch mirtazapine 0 Yes 15mg Take [...] 5-13 mg by ity of 13:57: mouth. [place] 16 Indication Medical s: 2 Branch tablets BID gabapentin 0 Yes 800mg Take 800 Un [...] by mouth ity of tablet 13:57: daily. [place] [address] Medical Branch metFORMIN Yes 500mg Take 500 Uni vers 500 mg 5-13 mg by ity of tablet 13:57: mouth [place] 16 daily. Medical Branch pantoprazol Yes 40mg Take 40 mg [facility] e 40 mg EC 5-13 by mouth ity o f tablet 13:57: daily. [place] [address] Medical Branch mirtazapine Yes 15mg Take 15 [...] 5-13 mg by ity of 13:57: mouth. [place] [address] Indication Medical s: 2 Branch tablets BID gabapentin Yes 800mg Take 800 [facility] [place] (NEURONTIN) 5-13 mg by ity of 300 mg 13:57: mouth 3 [place] capsule 16 (three) Medical times Branch daily. atorvastati Yes 10mg Take 10 mg [facility] n (LIPITOR) 5-13 by mouth ity of 10 mg 13:57: at [facility] 16 bedtime. Medical Branch HYDROcodone Yes 1{tbl} Take 1 Un [place] -acetaminop 5-13 tablet by ity of hen (NORCO) 13:57: mouth [place] 10-325 mg 16 every 6 Medical tablet (six) Branch hours as needed. meloxicam Yes 15mg Take 15 mg [facility] [place] 15 mg 5-13 by mouth ity of tablet 13:57: daily. [place] [address] Medical Branch metFORMIN Yes 500mg Take 500 Uni vers 500 mg 5-13 mg by ity of tablet 13:57: mouth [place] 16 daily. Medical Branch pantoprazol Yes 40mg Take 40 mg [facility] e 40 mg EC 5-13 by mouth ity o f tablet 13:57: daily. [place] [address] Medical Branch mirtazapine Yes 15mg Take 15 mg [facility] 15 mg 5-13 by mouth ity of tablet 13:57: at [place] 16 bedtime. Medical Branch SITagliptin 2022-0 Yes Take by [facility] vers -metformin 5-13 mouth. ity of (JANUMET 13:57: Indication [place] as XR) 16 s: 2 tabs Medical 50-1,000 mg BID Branch per tablet BUPROPION 0 Yes 150mg Take 150 Uni vers HCL ORAL 5-13 mg by ity of 13:57: mouth. [place] [address] Indication Medical s: 2 Branch tablets BID gabapentin 0 Yes 800mg Take 800 Un [...] by mouth ity of tablet 13:57: daily. [place] [address] Medical Branch metFORMIN Yes 500mg Take 500 Uni vers 500 mg 5-13 mg by ity of tablet 13:57: mouth [place] 16 daily. Medical Branch pantoprazol Yes 40mg Take 40 mg Univers e 40 mg EC 5-13 by mouth ity o f tablet 13:57: daily. [place] [address] Medical Branch mirtazapine 0 Yes 15mg Take 15 mg [facility] 15 mg 5-13 by mouth ity of tablet 13:57: at [place] 16 bedtime. [facility] BUPROPION Yes 150mg Take 150 Uni vers HCL ORAL 5-13 mg by ity of 13:57: mouth. [place] [address] Indication Medical s: 2 Branch tablets BID gabapentin 0 Yes 800mg Take 800 Un [...] by mouth ity of tablet 13:57: daily. [place] [address] [facility] Branch metFORMIN 2021-0 Yes 500mg Take 500 Uni vers 500 mg 5-13 mg by ity of tablet 13:57: mouth [place] 16 daily. [facility] pantoprazol 0 Yes 40mg Take 40 mg [facility] e 40 mg EC 5-13 by mouth ity o f tablet 13:57: daily. [place] [address] [facility] Branch mirtazapine 0 Yes 15mg Take 15 mg [facility] 15 mg 5-13 by mouth ity of tablet 13:57: at [place] 16 bedtime. [facility] BUPROPION 0 Yes 150mg Take 150 [facility] vers HCL ORAL 5-13 mg by ity of 13:57: mouth. [place] [address] Indication Medical s: 2 Branch tablets BID gabapentin 0 Yes 800mg Take 800 Un [...] by mouth ity of tablet 13:57: daily. [place] [address] [facility] Branch metFORMIN 0 Yes 500mg Take 500 Uni vers 500 mg 5-13 mg by ity of tablet 13:57: mouth [place] 16 daily. [facility] pantoprazol 0 Yes 40mg Take 40 mg [facility] e 40 mg EC 5-13 by mouth ity o f tablet 13:57: daily. [place] [address] [facility] mirtazapine 0 Yes 15mg Take 15 mg [facility] 15 mg 5-13 by mouth ity of tablet 13:57: at [place] 16 bedtime. [facility] BUPROPION 0 Yes 150mg Take 150 [facility] vers HCL ORAL 5-13 mg by ity of 13:57: mouth. [place] [address] Indication Medical s: 2 Branch tablets BID gabapentin 2021-0 Yes 800mg Take 800 Un [...] by mouth ity of tablet 13:57: daily. [place] [address] [facility] Branch metFORMIN 0 Yes 500mg Take 500 Uni vers 500 mg 5-13 mg by ity of tablet 13:57: mouth [place] 16 daily. [facility] pantoprazol 0 Yes 40mg Take 40 mg [facility] e 40 mg EC 5-13 by mouth ity o f tablet 13:57: daily. [place] [address] [facility] Branch mirtazapine 0 Yes 15mg Take 15 mg [facility] 15 mg 5-13 by mouth ity of tablet 13:57: at [place] 16 bedtime. [facility] BUPROPION 0 Yes 150mg Take 150 [facility] vers HCL ORAL 5-13 mg by ity of 13:57: mouth. [place] [address] Indication Medical s: 2 Branch tablets BID gabapentin 2021-0 Yes 800mg Take 800 Un [...] by mouth ity of tablet 13:57: daily. [place] [address] [facility] Branch metFORMIN 2021-0 Yes 500mg Take 500 [facility] vers 500 mg 5-13 mg by ity of tablet 13:57: mouth [place] 16 daily. [facility] pantoprazol 0 Yes 40mg Take 40 mg [facility] e 40 mg EC 5-13 by mouth ity o f tablet 13:57: daily. [place] [address] [facility] mirtazapine 2021-0 Yes 15mg Take 15 mg [facility] 15 mg 5-13 by mouth ity of tablet 13:57: at [place] 16 bedtime. [facility] BUPROPION 0 Yes 150mg Take 150 [facility] vers HCL ORAL 5-13 mg by ity of 13:57: mouth. [place] [address] Indication Medical s: 2 Branch tablets BID gabapentin 0 Yes 800mg Take 800 Un [...] by mouth ity of tablet 13:57: daily. [place] [address] [facility] Branch metFORMIN 2021-0 Yes 500mg Take 500 [facility] vers 500 mg 5-13 mg by ity of tablet 13:57: mouth [place] 16 daily. [facility] pantoprazol 2021-0 Yes 40mg Take 40 mg [facility] e 40 mg EC 5-13 by mouth ity o f tablet 13:57: daily. [place] [address] [facility] mirtazapine 2022-0 Yes 15mg Take 15 mg [facility] 15 mg 5-13 by mouth ity of tablet 13:57: at [place] 16 bedtime. [facility] BUPROPION 0 Yes 150mg Take 150 [facility] vers HCL ORAL 5-13 mg by ity of 13:57: mouth. [place] [address] Indication Medical s: 2 Branch tablets BID gabapentin 2021-0 Yes 800mg Take 800 Un [...] by mouth ity of tablet 13:57: daily. [place] [address] [facility] Branch metFORMIN 0 Yes 500mg Take 500 [facility] vers 500 mg 5-13 mg by ity of tablet 13:57: mouth [place] 16 daily. [facility] pantoprazol 0 Yes 40mg Take 40 mg [facility] e 40 mg EC 5-13 by mouth ity o f tablet 13:57: daily. [place] [address] [facility] mirtazapine 0 Yes 15mg Take 15 mg [facility] 15 mg 5-13 by mouth ity of tablet 13:57: at [place] 16 bedtime. [facility] BUPROPION 0 Yes 150mg Take 150 [facility] vers HCL ORAL 5-13 mg by ity of 13:57: mouth. [place] [address] Indication Medical s: 2 Branch tablets BID gabapentin 2021-0 Yes 800mg Take 800 Un [...] by mouth ity of tablet 13:57: daily. [place] [address] [facility] Branch metFORMIN 2021-0 Yes 500mg Take 500 [facility] vers 500 mg 5-13 mg by ity of tablet 13:57: mouth [place] 16 daily. [facility] pantoprazol 2021-0 Yes 40mg Take 40 mg [facility] e 40 mg EC 5-13 by mouth ity o f tablet 13:57: daily. [place] [address] [facility] mirtazapine 2021-0 Yes 15mg Take 15 mg [facility] 15 mg 5-13 by mouth ity of tablet 13:57: at [place] 16 bedtime. [facility] BUPROPION 2021-0 Yes 150mg Take 150 [facility] vers HCL ORAL 5-13 mg by ity of 13:57: mouth. [place] [address] Indication Medical s: 2 Branch tablets BID gabapentin 0 Yes 800mg Take 800 Un [...] by mouth ity of tablet 13:57: daily. [place] [address] [facility] Branch metFORMIN 2021-0 Yes 500mg Take 500 [facility] vers 500 mg 5-13 mg by ity of tablet 13:57: mouth [place] 16 daily. [facility] pantoprazol 2021-0 Yes 40mg Take 40 mg [facility] e 40 mg EC 5-13 by mouth ity o f tablet 13:57: daily. [place] [address] [facility] mirtazapine 2021-0 Yes 15mg Take 15 mg [facility] 15 mg 5-13 by mouth ity of tablet 13:57: at [place] 16 bedtime. [facility] BUPROPION 2021-0 Yes 150mg Take 150 [facility] vers HCL ORAL 5-13 mg by ity of 13:57: mouth. [place] [address] Indication Medical s: 2 Branch tablets BID gabapentin 2021-0 Yes 800mg Take 800 Un [...] by mouth ity of tablet 13:57: daily. [place] [address] [facility] metFORMIN 2021-0 Yes 500mg Take 500 [facility] vers 500 mg 5-13 mg by ity of tablet 13:57: mouth [place] 16 daily. [facility] pantoprazol 2021-0 Yes 40mg Take 40 mg [facility] e 40 mg EC 5-13 by mouth ity o f tablet 13:57: daily. [place] [address] [facility] mirtazapine 2021-0 Yes 15mg Take 15 mg [facility] 15 mg 5-13 by mouth ity of tablet 13:57: at [place] 16 bedtime. [facility] BUPROPION 2021-0 Yes 150mg Take 150 [facility] vers HCL ORAL 5-13 mg by ity of 13:57: mouth. [place] [address] Indication Medical s: 2 Branch tablets BID gabapentin 2021-0 Yes 800mg Take 800 Un [...] by mouth ity of tablet 13:57: daily. [place] [address] [facility] Branch metFORMIN 2021-0 Yes 500mg Take 500 [facility] vers 500 mg 5-13 mg by ity of tablet 13:57: mouth [place] 16 daily. [facility] pantoprazol 0 Yes 40mg Take 40 mg [facility] e 40 mg EC 5-13 by mouth ity o f tablet 13:57: daily. [place] [address] [facility] mirtazapine 2021-0 Yes 15mg Take 15 mg [facility] 15 mg 5-13 by mouth ity of tablet 13:57: at [place] 16 bedtime. [facility] BUPROPION 0 Yes 150mg Take 150 [facility] vers HCL ORAL 5-13 mg by ity of 13:57: mouth. [place] [address] Indication Medical s: 2 Branch tablets BID gabapentin 0 Yes 800mg Take 800 Un [...] by mouth ity of tablet 13:57: daily. [place] [address] [facility] metFORMIN 2021-0 Yes 500mg Take 500 [facility] vers 500 mg 5-13 mg by ity of tablet 13:57: mouth [place] 16 daily. [facility] Branch mirtazapine 2021-0 Yes 15mg Take 15 mg [facility] 15 mg 5-13 by mouth ity of tablet 13:57: at [place] 16 bedtime. [facility] BUPROPION 2021-0 Yes 150mg Take 150 [facility] vers HCL ORAL 5-13 mg by ity of 13:57: mouth. [place] [address] Indication Medical s: 2 Branch tablets BID gabapentin 2022-0 Yes 800mg Take 800 [facility] [place] (NEURONTIN) [...] tablet (six) Branch hours as needed. meloxicam 2022-0 Yes 15mg Take 15 mg [facility] [place] 15 mg 5-13 by mouth ity of tablet 13:57: daily. [place] [address] [facility] Branch metFORMIN 2-0 Yes 500mg Take 500 [facility] vers 500 mg 5-13 mg by ity of tablet 13:57: mouth [place] 16 daily. [facility] Branch mirtazapine 2-0 Yes 15mg Take 15 mg [facility] 15 mg 5-13 by mouth ity of tablet 13:57: at [place] 16 bedtime. [facility] BUPROPION 2021-0 Yes 150mg Take 150 [facility] vers HCL ORAL 5-13 mg by ity of 13:57: mouth. [place] [address] Indication Medical s: 2 Branch tablets BID gabapentin 2-0 Yes 800mg Take 800 [facility] [place] (NEURONTIN) [...] tablet (six) Branch hours as needed. meloxicam 2022-0 Yes 15mg Take 15 mg [facility] [place] 15 mg 5-13 by mouth ity of tablet 13:57: daily. [place] [address] [facility] Branch metFORMIN 2-0 Yes 500mg Take 500 [facility] vers 500 mg 5-13 mg by ity of tablet 13:57: mouth [place] 16 daily. [facility] Branch mirtazapine 2021-0 Yes 15mg Take 15 mg [facility] 15 mg 5-13 by mouth ity of tablet 13:57: at [place] 16 bedtime. [facility] BUPROPION 2021-0 Yes 150mg Take 150 [facility] vers HCL ORAL 5-13 mg by ity of 13:57: mouth. [place] [address] Indication Medical s: 2 Branch tablets BID gabapentin 2021-0 Yes 800mg Take 800 Un [...] by mouth ity of tablet 13:57: daily. [place] [address] [facility] Branch metFORMIN 2021-0 Yes 500mg Take 500 [facility] vers 500 mg 5-13 mg by ity of tablet 13:57: mouth [place] 16 daily. [facility] Branch mirtazapine 2021-0 Yes 15mg Take 15 mg [facility] 15 mg 5-13 by mouth ity of tablet 13:57: at [place] 16 bedtime. [facility] BUPROPION 2021-0 Yes 150mg Take 150 [facility] vers HCL ORAL 5-13 mg by ity of 13:57: mouth. [place] [address] Indication Medical s: 2 Branch tablets BID gabapentin 2021-0 Yes 800mg Take 800 Un [...] tablet (six) Branch hours as needed. meloxicam 2022-0 Yes 15mg Take 15 mg [facility] [place] 15 mg 5-13 by mouth ity of tablet 13:57: daily. [place] [address] [facility] Branch metFORMIN 2021-0 Yes 500mg Take 500 [facility] vers 500 mg 5-13 mg by ity of tablet 13:57: mouth [place] 16 daily. [facility] Branch mirtazapine 2-0 Yes 15mg Take 15 mg [facility] 15 mg 5-13 by mouth ity of tablet 13:57: at [place] 16 bedtime. [facility] BUPROPION 2021-0 Yes 150mg Take 150 [facility] vers HCL ORAL 5-13 mg by ity of 13:57: mouth. [place] [address] Indication Medical s: 2 Branch tablets BID gabapentin 2021-0 Yes 800mg Take 800 Un [...] by mouth ity of tablet 13:57: daily. [place] [address] [facility] Branch metFORMIN 2021-0 Yes 500mg Take 500 Uni vers 500 mg 5-13 mg by ity of tablet 13:57: mouth [place] 16 daily. Medical Branch mirtazapine 2-0 Yes 15mg Take 15 mg [facility] 15 mg 5-13 by mouth ity of tablet 13:57: at [place] 16 bedtime. [facility] BUPROPION 2022-0 Yes 150mg Take 150 [facility] vers HCL ORAL 5-13 mg by ity of 13:57: mouth. [place] [address] Indication Medical s: 2 Branch tablets BID gabapentin 2021-0 Yes 800mg Take 800 [facility] [place] (NEURONTIN) 5-13 mg by ity of 300 mg 13:57: mouth 3 [place] capsule 16 (three) Medical times Branch daily. HYDROcodone 2022-0 Yes 1{tbl} Take 1 Un [place] -acetaminop 5-13 tablet by ity of hen (NORCO) 13:57: mouth [place] 10-325 mg 16 every 6 Medical tablet (six) Branch hours as needed. meloxicam 2022-0 Yes 15mg Take 15 mg [facility] [place] 15 mg 5-13 by mouth ity of tablet 13:57: daily. [place] [address] [facility] Branch metFORMIN 2022-0 Yes 500mg Take 500 [facility] vers 500 mg 5-13 mg by ity of tablet 13:57: mouth [place] 16 daily. Medical Branch mirtazapine 2022-0 Yes 15mg Take 15 mg [facility] 15 mg 5-13 by mouth ity of tablet 13:57: at [place] 16 bedtime. [facility] Branch BUPROPION 2021-0 Yes 150mg Take 150 Uni vers HCL ORAL 5-13 mg by ity of 13:57: mouth. [place] [address] Indication Medical s: 2 Branch tablets BID gabapentin 2-0 Yes 800mg Take 800 [facility] [place] (NEURONTIN) 5-13 mg by ity of 300 mg 13:57: mouth 3 [place] capsule 16 (three) Medical times Branch daily. HYDROcodone 2022-0 Yes 1{tbl} Take 1 Un [place] -acetaminop 5-13 tablet by ity of hen (NORCO) 13:57: mouth [place] 10-325 mg 16 every 6 Medical tablet (six) Branch hours as needed. meloxicam 2022-0 Yes 15mg Take 15 mg [facility] [place] 15 mg 5-13 by mouth ity of tablet 13:57: daily. [place] [address] [facility] Branch metFORMIN 2022-0 Yes 500mg Take 500 Uni vers 500 mg 5-13 mg by ity of tablet 13:57: mouth [place] 16 daily. [facility] Branch mirtazapine 2022-0 Yes 15mg Take 15 mg [facility] 15 mg 5-13 by mouth ity of tablet 13:57: at [place] [address] bedtime. Medical [facility] BUPROPION 2022-0 Yes 150mg Take 150 [facility] vers HCL ORAL 5-13 mg by ity of 13:57: mouth. [place] [address] Indication Medical s: 2 Branch tablets BID gabapentin 2022-0 Yes 800mg Take 800 [facility] [place] (NEURONTIN) 5-13 mg by ity of 300 mg 13:57: mouth 3 [place] capsule 16 (three) Medical times Branch daily. HYDROcodone 2022-0 Yes 1{tbl} Take 1 Un [place] -acetaminop 5-13 tablet by ity of hen (NORCO) 13:57: mouth [place] 10-325 mg 16 every 6 Medical tablet (six) Branch hours as needed. meloxicam 2022-0 Yes 15mg Take 15 mg [facility] [place] 15 mg 5-13 by mouth ity of tablet 13:57: daily. [place] [address] Medical Branch metFORMIN 2022-0 Yes 500mg Take 500 Uni vers 500 mg 5-13 mg by ity of tablet 13:57: mouth [place] 16 daily. Medical Branch mirtazapine 2022-0 Yes 15mg Take 15 mg [facility] 15 mg 5-13 by mouth ity of tablet 13:57: at [place] 16 bedtime. [facility] Branch BUPROPION 2021-0 Yes 150mg Take 150 Uni vers HCL ORAL 5-13 mg by ity of 13:57: mouth. [place] [address] Indication Medical s: 2 Branch tablets BID gabapentin 2-0 Yes 800mg Take 800 [facility] [place] (NEURONTIN) 5-13 mg by ity of 300 mg 13:57: mouth 3 [place] capsule 16 (three) Medical times Branch daily. HYDROcodone 2022-0 Yes 1{tbl} Take 1 Un [place] -acetaminop 5-13 tablet by ity of hen (NORCO) 13:57: mouth [place] 10-325 mg 16 every 6 Medical tablet (six) Branch hours as needed. meloxicam 2022-0 Yes 15mg Take 15 mg [facility] [place] 15 mg 5-13 by mouth ity of tablet 13:57: daily. [place] [address] [facility] Branch metFORMIN 2022-0 Yes 500mg Take 500 Uni vers 500 mg 5-13 mg by ity of tablet 13:57: mouth [place] 16 daily. Medical Branch mirtazapine 2022-0 Yes 15mg Take 15 mg [facility] 15 mg 5-13 by mouth ity of tablet 13:57: at [place] [address] bedtime. Medical Branch BUPROPION 2022-0 Yes 150mg Take 150 Uni vers HCL ORAL 5-13 mg by ity of 13:57: mouth. [place] [address] Indication Medical s: 2 Branch tablets BID gabapentin 2022-0 Yes 800mg Take 800 [facility] [place] (NEURONTIN) 5-13 mg by ity of 300 mg 13:57: mouth 3 [place] capsule 16 (three) Medical times Branch daily. HYDROcodone 2022-0 Yes 1{tbl} Take 1 Un [place] -acetaminop 5-13 tablet by ity of hen (NORCO) 13:57: mouth [place] 10-325 mg 16 every 6 Medical tablet (six) Branch hours as needed. meloxicam 2022-0 Yes 15mg Take 15 mg [facility] [place] 15 mg 5-13 by mouth ity of tablet 13:57: daily. [place] [address] Medical Branch metFORMIN 2022-0 Yes 500mg Take 500 Uni vers 500 mg 5-13 mg by ity of tablet 13:57: mouth [place] 16 daily. Medical Branch mirtazapine 2022-0 Yes 15mg Take 15 mg [facility] 15 mg 5-13 by mouth ity of tablet 13:57: at [place] [address] bedtime. Medical Branch BUPROPION 2021-0 Yes 150mg Take 150 Uni vers HCL ORAL 5-13 mg by ity of 13:57: mouth. [place] [address] Indication Medical s: 2 Branch tablets BID gabapentin 2-0 Yes 800mg Take 800 [facility] [place] (NEURONTIN) 5-13 mg by ity of 300 mg 13:57: mouth 3 [place] capsule 16 (three) Medical times Branch daily. HYDROcodone 2022-0 Yes 1{tbl} Take 1 Un [place] -acetaminop 5-13 tablet by ity of hen (NORCO) 13:57: mouth [place] 10-325 mg 16 every 6 Medical tablet (six) Branch hours as needed. meloxicam 2022-0 Yes 15mg Take 15 mg [facility] [place] 15 mg 5-13 by mouth ity of tablet 13:57: daily. [place] [address] Medical Branch mirtazapine 2022-0 Yes 15mg Take 15 mg [facility] 15 mg 5-13 by mouth ity of tablet 13:57: at [place] [address] bedtime. Medical Branch BUPROPION 2022-0 Yes 150mg Take 150 Uni vers HCL ORAL 5-13 mg by ity of 13:57: mouth. [place] [address] Indication Medical s: 2 Branch tablets BID gabapentin 2022-0 Yes 800mg Take 800 [facility] [place] (NEURONTIN) 5-13 mg by ity of 300 mg 13:57: mouth 3 [place] capsule 16 (three) Medical times Branch daily. HYDROcodone 2022-0 Yes 1{tbl} Take 1 Un [place] -acetaminop 5-13 tablet by ity of hen (NORCO) 13:57: mouth [place] 10-325 mg 16 every 6 Medical tablet (six) Branch hours as needed. meloxicam 2022-0 Yes 15mg Take 15 mg [facility] [place] 15 mg 5-13 by mouth ity of tablet 13:57: daily. [place] [address] Medical Branch mirtazapine 2022-0 Yes 15mg Take 15 mg [facility] 15 mg 5-13 by mouth ity of tablet 13:57: at [place] [address] bedtime. Medical Branch BUPROPION 2022-0 Yes 150mg Take 150 Uni vers HCL ORAL 5-13 mg by ity of 13:57: mouth. [place] [address] Indication Medical s: 2 Branch tablets BID gabapentin 2022-0 Yes 800mg Take 800 [facility] [place] (NEURONTIN) 5-13 mg by ity of 300 mg 13:57: mouth 3 [place] capsule 16 (three) Medical times Branch daily. HYDROcodone 2022-0 Yes 1{tbl} Take 1 Un [place] -acetaminop 5-13 tablet by ity of hen (NORCO) 13:57: mouth [place] 10-325 mg 16 every 6 Medical tablet (six) Branch hours as needed. meloxicam 2022-0 Yes 15mg Take 15 mg [facility] [place] 15 mg 5-13 by mouth ity of tablet 13:57: daily. [place] [address] Medical Branch mirtazapine 2022-0 Yes 15mg Take 15 mg [facility] 15 mg 5-13 by mouth ity of tablet 13:57: at [place] [address] bedtime. Medical Branch BUPROPION 2022-0 Yes 150mg Take 150 Uni vers HCL ORAL 5-13 mg by ity of 13:57: mouth. [place] [address] Indication Medical s: 2 Branch tablets BID gabapentin 2022-0 Yes 800mg Take 800 Un [place] (NEURONTIN) 5-13 mg by ity of 300 mg 13:57: mouth 3 [place] capsule 16 (three) Medical times Branch daily. HYDROcodone 2022-0 Yes 1{tbl} Take 1 Un [place] -acetaminop 5-13 tablet by ity of hen (NORCO) 13:57: mouth [place] 10-325 mg 16 every 6 Medical tablet (six) Branch hours as needed. meloxicam 2022-0 Yes 15mg Take 15 mg [facility] [place] 15 mg 5-13 by mouth ity of tablet 13:57: daily. [place] [address] Medical Branch BUPROPION 2022-0 Yes 150mg Take 150 Uni vers HCL ORAL 5-13 mg by ity of 13:57: mouth. [place] [address] Indication Medical s: 2 Branch tablets BID gabapentin 2022-0 Yes 800mg Take 800 [facility] [place] (NEURONTIN) 5-13 mg by ity of 300 mg 13:57: mouth 3 [place] capsule 16 (three) Medical times Branch daily. HYDROcodone 2022-0 Yes 1{tbl} Take 1 Un [place] -acetaminop 5-13 tablet by ity of hen (NORCO) 13:57: mouth [place] 10-325 mg 16 every 6 Medical tablet (six) Branch hours as needed. meloxicam 2022-0 Yes 15mg Take 15 mg [facility] [place] 15 mg 5-13 by mouth ity of tablet 13:57: daily. [place] [address] [facility] Branch BUPROPION 2-0 Yes 150mg Take 150 Uni vers HCL ORAL 5-13 mg by ity of 13:57: mouth. [place] [address] Indication Medical s: 2 Branch tablets BID gabapentin 2022-0 Yes 800mg Take 800 [facility] [place] (NEURONTIN) 5-13 mg by ity of 300 mg 13:57: mouth 3 [place] capsule 16 (three) Medical times Branch daily. HYDROcodone 2022-0 Yes 1{tbl} Take 1 Un [place] -acetaminop 5-13 tablet by ity of hen (NORCO) 13:57: mouth [place] 10-325 mg 16 every 6 Medical tablet (six) Branch hours as needed. meloxicam 2022-0 Yes 15mg Take 15 mg [facility] [place] 15 mg 5-13 by mouth ity of tablet 13:57: daily. [place] [address] Medical Branch BUPROPION 2022-0 Yes 150mg Take 150 Uni vers HCL ORAL 5-13 mg by ity of 13:57: mouth. [place] [address] Indication Medical s: 2 Branch tablets BID gabapentin 2022-0 Yes 800mg Take 800 [facility] [place] (NEURONTIN) 5-13 mg by ity of 300 mg 13:57: mouth 3 [place] capsule 16 (three) Medical times Branch daily. HYDROcodone 2022-0 Yes 1{tbl} Take 1 Un [place] -acetaminop 5-13 tablet by ity of hen (NORCO) 13:57: mouth [place] 10-325 mg 16 every 6 Medical tablet (six) Branch hours as needed. meloxicam 2022-0 Yes 15mg Take 15 mg [facility] [place] 15 mg 5-13 by mouth ity of tablet 13:57: daily. [place] [address] Medical Branch BUPROPION 2022-0 Yes 150mg Take 150 Uni vers HCL ORAL 5-13 mg by ity of 13:57: mouth. [place] [address] Indication Medical s: 2 Branch tablets BID gabapentin 2022-0 Yes 800mg Take 800 [facility] [place] (NEURONTIN) 5-13 mg by ity of 300 mg 13:57: mouth 3 [place] capsule 16 (three) Medical times Branch daily. HYDROcodone 2022-0 Yes 1{tbl} Take 1 Un [place] -acetaminop 5-13 tablet by ity of hen (NORCO) 13:57: mouth [place] 10-325 mg 16 every 6 Medical tablet (six) Branch hours as needed. meloxicam 2022-0 Yes 15mg Take 15 mg [facility] [place] 15 mg 5-13 by mouth ity of tablet 13:57: daily. [place] [address] Medical Branch BUPROPION 2022-0 Yes 150mg Take 150 Uni vers HCL ORAL 5-13 mg by ity of 13:57: mouth. [place] [address] Indication Medical s: 2 Branch tablets BID gabapentin 2022-0 Yes 800mg Take 800 [facility] [place] (NEURONTIN) 5-13 mg by ity of 300 mg 13:57: mouth 3 [place] capsule 16 (three) Medical times Branch daily. HYDROcodone 2022-0 Yes 1{tbl} Take 1 Un [place] -acetaminop 5-13 tablet by ity of hen (NORCO) 13:57: mouth [place] 10-325 mg 16 every 6 Medical tablet (six) Branch hours as needed. meloxicam 2022-0 Yes 15mg Take 15 mg [facility] [place] 15 mg 5-13 by mouth ity of tablet 13:57: daily. [place] [address] Medical Branch BUPROPION 2022-0 Yes 150mg Take 150 Uni vers HCL ORAL 5-13 mg by ity of 13:57: mouth. [place] [address] Indication Medical s: 2 Branch tablets BID gabapentin 2022-0 Yes 800mg Take 800 [facility] [place] (NEURONTIN) 5-13 mg by ity of 300 mg 13:57: mouth 3 [place] capsule 16 (three) Medical times Branch daily. HYDROcodone 2022-0 Yes 1{tbl} Take 1 Un [place] -acetaminop 5-13 tablet by ity of hen (NORCO) 13:57: mouth [place] 10-325 mg 16 every 6 Medical tablet (six) Branch hours as needed. meloxicam 2022-0 Yes 15mg Take 15 mg [facility] [place] 15 mg 5-13 by mouth ity of tablet 13:57: daily. [place] [address] Medical Branch BUPROPION 2022-0 Yes 150mg Take 150 Uni vers HCL ORAL 5-13 mg by ity of 13:57: mouth. [place] [address] Indication Medical s: 2 Branch tablets BID gabapentin 2022-0 Yes 800mg Take 800 [facility] [place] (NEURONTIN) 5-13 mg by ity of 300 mg 13:57: mouth 3 [place] capsule 16 (three) Medical times Branch daily. HYDROcodone 2022-0 Yes 1{tbl} Take 1 Un [place] -acetaminop 5-13 tablet by ity of hen (NORCO) 13:57: mouth [place] 10-325 mg 16 every 6 Medical tablet (six) Branch hours as needed. meloxicam 2022-0 Yes 15mg Take 15 mg [facility] [place] 15 mg 5-13 by mouth ity of tablet 13:57: daily. [place] [address] Medical Branch BUPROPION 2-0 Yes 150mg Take 150 Uni vers HCL ORAL 5-13 mg by ity of 13:57: mouth. [place] [address] Indication Medical s: 2 Branch tablets BID gabapentin 2022-0 Yes 800mg Take 800 [facility] [place] (NEURONTIN) 5-13 mg by ity of 300 mg 13:57: mouth 3 [place] capsule 16 (three) Medical times Branch daily. HYDROcodone 2022-0 Yes 1{tbl} Take 1 Un [place] -acetaminop 5-13 tablet by ity of hen (NORCO) 13:57: mouth [place] 10-325 mg 16 every 6 Medical tablet (six) Branch hours as needed. meloxicam 2022-0 Yes 15mg Take 15 mg [facility] [place] 15 mg 5-13 by mouth ity of tablet 13:57: daily. [place] [address] Medical Branch BUPROPION 2022-0 Yes 150mg Take 150 Uni vers HCL ORAL 5-13 mg by ity of 13:57: mouth. [place] [address] Indication Medical s: 2 Branch tablets BID gabapentin 2022-0 Yes 800mg Take 800 [facility] [place] (NEURONTIN) 5-13 mg by ity of 300 mg 13:57: mouth 3 [place] capsule 16 (three) Medical times Branch daily. HYDROcodone 2022-0 Yes 1{tbl} Take 1 Un [place] -acetaminop 5-13 tablet by ity of hen (NORCO) 13:57: mouth [place] 10-325 mg 16 every 6 Medical tablet (six) Branch hours as needed. meloxicam 2022-0 Yes 15mg Take 15 mg [facility] [place] 15 mg 5-13 by mouth ity of tablet 13:57: daily. [place] [address] Medical Branch BUPROPION 2022-0 Yes 150mg Take 150 Uni vers HCL ORAL 5-13 mg by ity of 13:57: mouth. [place] [address] Indication Medical s: 2 Branch tablets BID gabapentin 2022-0 Yes 800mg Take 800 [facility] [place] (NEURONTIN) 5-13 mg by ity of 300 mg 13:57: mouth 3 [place] capsule 16 (three) Medical times Branch daily. HYDROcodone 2022-0 Yes 1{tbl} Take 1 Un [place] -acetaminop 5-13 tablet by ity of hen (NORCO) 13:57: mouth [place] 10-325 mg 16 every 6 Medical tablet (six) Branch hours as needed. meloxicam 2022-0 Yes 15mg Take 15 mg [facility] [place] 15 mg 5-13 by mouth ity of tablet 13:57: daily. [address] BUPROPION 2022-0 Yes 150mg Take 150 Uni vers HCL ORAL 5-13 mg by ity of 13:57: mouth. [place] [address] Indication Medical s: 2 Branch tablets BID gabapentin 2022-0 Yes 800mg Take 800 [facility] [place] (NEURONTIN) 5-13 mg by ity of 300 mg 13:57: mouth 3 [place] capsule 16 (three) Medical times Branch daily. HYDROcodone 2022-0 Yes 1{tbl} Take 1 Un [place] -acetaminop 5-13 tablet by ity of hen (NORCO) 13:57: mouth [place] 10-325 mg 16 every 6 Medical tablet (six) Branch hours as needed. meloxicam 2022-0 Yes 15mg Take 15 mg [facility] [place] 15 mg 5-13 by mouth ity of tablet 13:57: daily. [address] Branch BUPROPION 2022-0 Yes 150mg Take 150 Uni vers HCL ORAL 5-13 mg by ity of 13:57: mouth. [place] [address] Indication Medical s: 2 Branch tablets BID gabapentin 2022-0 Yes 800mg Take 800 Un [place] (NEURONTIN) 5-13 mg by ity of 300 mg 13:57: mouth 3 [place] capsule 16 (three) Medical times Branch daily. HYDROcodone 2022-0 Yes 1{tbl} Take 1 Un [place] -acetaminop 5-13 tablet by ity of hen (NORCO) 13:57: mouth [place] 10-325 mg 16 every 6 Medical tablet (six) Branch hours as needed. meloxicam 2022-0 Yes 15mg Take 15 mg [facility] [place] 15 mg 5-13 by mouth ity of tablet 13:57: daily. [place] [address] Medical Branch BUPROPION 2022-0 Yes 150mg Take 150 [facility] vers HCL ORAL 5-13 mg by ity of 13:57: mouth. [place] [address] Indication Medical s: 2 Branch tablets BID gabapentin 2022-0 Yes 800mg Take 800 [facility] (NEURONTIN) 5-13 mg by ity of 300 mg 13:57: mouth 3 [place] capsule 16 (three) Medical times Branch daily. HYDROcodone 2022-0 Yes 1{tbl} Take 1 [facility] -acetaminop 5-13 tablet by ity of hen (NORCO) 13:57: mouth [place] 10-325 mg 16 every 6 Medical tablet (six) Branch hours as needed. meloxicam 2022-0 Yes 15mg Take 15 mg [facility] [place] 15 mg 5-13 by mouth ity of tablet 13:57: daily. [address] Branch BUPROPION 2022-0 Yes 150mg Take 150 Uni vers HCL ORAL 5-13 mg by ity of 13:57: mouth. [place] [address] Indication Medical s: 2 Branch tablets BID gabapentin 2022-0 Yes 800mg Take 800 [facility] [place] (NEURONTIN) 5-13 mg by ity of 300 mg 13:57: mouth 3 [place] capsule 16 (three) Medical times Branch daily. HYDROcodone 2022-0 Yes 1{tbl} Take 1 [facility] [place] -acetaminop 5-13 tablet by ity of hen (NORCO) 13:57: mouth [place] 10-325 mg 16 every 6 Medical tablet (six) Branch hours as needed. meloxicam 2022-0 Yes 15mg Take 15 mg [facility] [place] 15 mg 5-13 by mouth ity of tablet 13:57: daily. [place] [address] Medical Branch BUPROPION 2022-0 Yes 150mg Take 150 [facility] vers HCL ORAL 5-13 mg by ity of 13:57: mouth. [place] [address] Indication Medical s: 2 Branch tablets BID gabapentin 2022-0 Yes 800mg Take 800 [facility] [place] (NEURONTIN) 5-13 mg by ity of 300 mg 13:57: mouth 3 [place] capsule 16 (three) Medical times Branch daily. HYDROcodone 2022-0 Yes 1{tbl} Take 1 [facility] [place] -acetaminop 5-13 tablet by ity of hen (NORCO) 13:57: mouth [place] 10-325 mg 16 every 6 Medical tablet (six) Branch hours as needed. meloxicam 2022-0 Yes 15mg Take 15 mg [facility] [place] 15 mg 5-13 by mouth ity of tablet 13:57: daily. [place] [address] Medical Branch BUPROPION 2022-0 Yes 150mg Take 150 [facility] vers HCL ORAL 5-13 mg by ity of 13:57: mouth. [place] [address] Indication Medical s: 2 Branch tablets BID gabapentin 2022-0 Yes 800mg Take 800 [facility] [place] (NEURONTIN) 5-13 mg by ity of 300 mg 13:57: mouth 3 [place] capsule 16 (three) Medical times Branch daily. HYDROcodone 2022-0 Yes 1{tbl} Take 1 [facility] [place] -acetaminop 5-13 tablet by ity of hen (NORCO) 13:57: mouth [place] 10-325 mg 16 every 6 Medical tablet (six) Branch hours as needed. meloxicam 2022-0 Yes 15mg Take 15 mg [facility] [place] 15 mg 5-13 by mouth ity of tablet 13:57: daily. [place] [address] Medical Branch BUPROPION 2022-0 Yes 150mg Take 150 [facility] vers HCL ORAL 5-13 mg by ity of 13:57: mouth. [place] [address] Indication Medical s: 2 Branch tablets BID gabapentin 2022-0 Yes 800mg Take 800 [facility] [place] (NEURONTIN) 5-13 mg by ity of 300 mg 13:57: mouth 3 [place] capsule 16 (three) Medical times Branch daily. HYDROcodone 2022-0 Yes 1{tbl} Take 1 [facility] [place] -acetaminop 5-13 tablet by ity of hen (NORCO) 13:57: mouth [place] 10-325 mg 16 every 6 Medical tablet (six) Branch hours as needed. meloxicam 2022-0 Yes 15mg Take 15 mg [facility] [place] 15 mg 5-13 by mouth ity of tablet 13:57: daily. [place] [address] Medical Branch BUPROPION 2022-0 Yes 150mg Take 150 [facility] vers HCL ORAL 5-13 mg by ity of 13:57: mouth. [place] [address] Indication Medical s: 2 Branch tablets BID gabapentin 2022-0 Yes 800mg Take 800 [facility] [place] (NEURONTIN) 5-13 mg by ity of 300 mg 13:57: mouth 3 [place] capsule 16 (three) Medical times Branch daily. HYDROcodone 2022-0 Yes 1{tbl} Take 1 [facility] [place] -acetaminop 5-13 tablet by ity of hen (NORCO) 13:57: mouth [place] 10-325 mg 16 every 6 Medical tablet (six) Branch hours as needed. meloxicam 2022-0 Yes 15mg Take 15 mg [facility] [place] 15 mg 5-13 by mouth ity of tablet 13:57: daily. [place] [address] Medical Branch BUPROPION 2022-0 Yes 150mg Take 150 [facility] vers HCL ORAL 5-13 mg by ity of 13:57: mouth. [place] [address] Indication Medical s: 2 Branch tablets BID gabapentin 2022-0 Yes 800mg Take 800 [facility] [place] (NEURONTIN) 5-13 mg by ity of 300 mg 13:57: mouth 3 [place] capsule 16 (three) Medical times Branch daily. HYDROcodone 2022-0 Yes 1{tbl} Take 1 [facility] [place] -acetaminop 5-13 tablet by ity of hen (NORCO) 13:57: mouth [place] 10-325 mg 16 every 6 Medical tablet (six) Branch hours as needed. meloxicam 2022-0 Yes 15mg Take 15 mg [facility] [place] 15 mg 5-13 by mouth ity of tablet 13:57: daily. [place] [address] Medical Branch BUPROPION 2022-0 Yes 150mg Take 150 [facility] vers HCL ORAL 5-13 mg by ity of 13:57: mouth. [place] [address] Indication Medical s: 2 Branch tablets BID gabapentin 2022-0 Yes 800mg Take 800 [facility] [place] (NEURONTIN) 5-13 mg by ity of 300 mg 13:57: mouth 3 [place] capsule 16 (three) Medical times Branch daily. HYDROcodone 2022-0 Yes 1{tbl} Take 1 [facility] [place] -acetaminop 5-13 tablet by ity of hen (NORCO) 13:57: mouth [place] 10-325 mg 16 every 6 Medical tablet (six) Branch hours as needed. meloxicam 2022-0 Yes 15mg Take 15 mg [facility] [place] 15 mg 5-13 by mouth ity of tablet 13:57: daily. [place] [address] Medical Branch BUPROPION 2022-0 Yes 150mg Take 150 [facility] vers HCL ORAL 5-13 mg by ity of 13:57: mouth. [place] [address] Indication Medical s: 2 Branch tablets BID gabapentin 2022-0 Yes 800mg Take 800 [facility] [place] (NEURONTIN) 5-13 mg by ity of 300 mg 13:57: mouth 3 [place] capsule 16 (three) Medical times Branch daily. HYDROcodone 2022-0 Yes 1{tbl} Take 1 [facility] [place] -acetaminop 5-13 tablet by ity of hen (NORCO) 13:57: mouth [place] 10-325 mg 16 every 6 Medical tablet (six) Branch hours as needed. meloxicam 2022-0 Yes 15mg Take 15 mg [facility] [place] 15 mg 5-13 by mouth ity of tablet 13:57: daily. [place] [address] Medical Branch BUPROPION 2022-0 Yes 150mg Take 150 [facility] vers HCL ORAL 5-13 mg by ity of 13:57: mouth. [place] [address] Indication Medical s: 2 Branch tablets BID gabapentin 2022-0 Yes 800mg Take 800 [facility] [place] (NEURONTIN) 5-13 mg by ity of 300 mg 13:57: mouth 3 [place] capsule 16 (three) Medical times Branch daily. HYDROcodone 2022-0 Yes 1{tbl} Take 1 [facility] [place] -acetaminop 5-13 tablet by ity of hen (NORCO) 13:57: mouth [place] 10-325 mg 16 every 6 Medical tablet (six) Branch hours as needed. meloxicam 2022-0 Yes 15mg Take 15 mg [facility] [place] 15 mg 5-13 by mouth ity of tablet 13:57: daily. [place] [address] Medical Branch BUPROPION 2022-0 Yes 150mg Take 150 [facility] vers HCL ORAL 5-13 mg by ity of 13:57: mouth. [place] [address] Indication Medical s: 2 Branch tablets BID gabapentin 2022-0 Yes 800mg Take 800 [facility] [place] (NEURONTIN) 5-13 mg by ity of 300 mg 13:57: mouth 3 [place] capsule 16 (three) Medical times Branch daily. HYDROcodone 2022-0 Yes 1{tbl} Take 1 [facility] [place] -acetaminop 5-13 tablet by ity of hen (NORCO) 13:57: mouth [place] 10-325 mg 16 every 6 Medical tablet (six) Branch hours as needed. meloxicam 2022-0 Yes 15mg Take 15 mg [facility] [place] 15 mg 5-13 by mouth ity of tablet 13:57: daily. [place] [address] Medical Branch BUPROPION 2022-0 Yes 150mg Take 150 [facility] vers HCL ORAL 5-13 mg by ity of 13:57: mouth. [place] [address] Indication Medical s: 2 Branch tablets BID gabapentin 2022-0 Yes 800mg Take 800 [facility] [place] (NEURONTIN) 5-13 mg by ity of 300 mg 13:57: mouth 3 [place] capsule 16 (three) Medical times Branch daily. HYDROcodone 2022-0 Yes 1{tbl} Take 1 [facility] [place] -acetaminop 5-13 tablet by ity of hen (NORCO) 13:57: mouth [place] 10-325 mg 16 every 6 Medical tablet (six) Branch hours as needed. meloxicam 2022-0 Yes 15mg Take 15 mg [facility] [place] 15 mg 5-13 by mouth ity of tablet 13:57: daily. [address] Branch BUPROPION 2022-0 Yes 150mg Take 150 [facility] vers HCL ORAL 5-13 mg by ity of 13:57: mouth. [place] [address] Indication Medical s: 2 Branch tablets BID gabapentin 2022-0 Yes 800mg Take 800 [facility] [place] (NEURONTIN) 5-13 mg by ity of 300 mg 13:57: mouth 3 [place] capsule 16 (three) Medical times Branch daily. HYDROcodone 2022-0 Yes 1{tbl} Take 1 [facility] [place] -acetaminop 5-13 tablet by ity of hen (NORCO) 13:57: mouth [place] 10-325 mg 16 every 6 Medical tablet (six) Branch hours as needed. meloxicam 2022-0 Yes 15mg Take 15 mg [facility] [place] 15 mg 5-13 by mouth ity of tablet 13:57: daily. [place] [address] Medical Branch BUPROPION 2022-0 Yes 150mg Take 150 [facility] vers HCL ORAL 5-13 mg by ity of 13:57: mouth. [place] [address] Indication Medical s: 2 Branch tablets BID gabapentin 2022-0 Yes 800mg Take 800 [facility] [place] (NEURONTIN) 5-13 mg by ity of 300 mg 13:57: mouth 3 [place] capsule 16 (three) Medical times Branch daily. HYDROcodone 2022-0 Yes 1{tbl} Take 1 [facility] [place] -acetaminop 5-13 tablet by ity of hen (NORCO) 13:57: mouth [place] 10-325 mg 16 every 6 Medical tablet (six) Branch hours as needed. meloxicam 2022-0 Yes 15mg Take 15 mg [facility] [place] 15 mg 5-13 by mouth ity of tablet 13:57: daily. [place] [address] Medical Branch BUPROPION 2022-0 Yes 150mg Take 150 [facility] vers HCL ORAL 5-13 mg by ity of 13:57: mouth. [place] [address] Indication Medical s: 2 Branch tablets BID gabapentin 2022-0 Yes 800mg Take 800 [facility] [place] (NEURONTIN) 5-13 mg by ity of 300 mg 13:57: mouth 3 [place] capsule 16 (three) Medical times Branch daily. HYDROcodone 2022-0 Yes 1{tbl} Take 1 [facility] [place] -acetaminop 5-13 tablet by ity of hen (NORCO) 13:57: mouth [place] 10-325 mg 16 every 6 Medical tablet (six) Branch hours as needed. meloxicam 2022-0 Yes 15mg Take 15 mg [facility] [place] 15 mg 5-13 by mouth ity of tablet 13:57: daily. [address] Branch BUPROPION 2022-0 Yes 150mg Take 150 Uni vers HCL ORAL 5-13 mg by ity of 13:57: mouth. [place] [address] Indication Medical s: 2 Branch tablets BID gabapentin 2022-0 Yes 800mg Take 800 [facility] [place] (NEURONTIN) 5-13 mg by ity of 300 mg 13:57: mouth 3 [place] capsule 16 (three) Medical times Branch daily. HYDROcodone 2022-0 Yes 1{tbl} Take 1 [facility] [place] -acetaminop 5-13 tablet by ity of hen (NORCO) 13:57: mouth [place] 10-325 mg 16 every 6 Medical tablet (six) Branch hours as needed. meloxicam 2022-0 Yes 15mg Take 15 mg [facility] [place] 15 mg 5-13 by mouth ity of tablet 13:57: daily. [place] [address] Medical Branch BUPROPION 2022-0 Yes 150mg Take 150 Uni vers HCL ORAL 5-13 mg by ity of 13:57: mouth. [place] [address] Indication Medical s: 2 Branch tablets BID gabapentin 2022-0 Yes 800mg Take 800 [facility] [place] (NEURONTIN) 5-13 mg by ity of 300 mg 13:57: mouth 3 [place] capsule 16 (three) Medical times Branch daily. HYDROcodone 2022-0 Yes 1{tbl} Take 1 [facility] [place] -acetaminop 5-13 tablet by ity of hen (NORCO) 13:57: mouth [place] 10-325 mg 16 every 6 Medical tablet (six) Branch hours as needed. meloxicam 2022-0 Yes 15mg Take 15 mg [facility] [place] 15 mg 5-13 by mouth ity of tablet 13:57: daily. [place] [address] Medical Branch BUPROPION 2022-0 Yes 150mg Take 150 Uni vers HCL ORAL 5-13 mg by ity of 13:57: mouth. [place] [address] Indication Medical s: 2 Branch tablets BID gabapentin 2022-0 Yes 800mg Take 800 [facility] [place] (NEURONTIN) 5-13 mg by ity of 300 mg 13:57: mouth 3 [place] capsule 16 (three) Medical times Branch daily. HYDROcodone 2022-0 Yes 1{tbl} Take 1 [facility] [place] -acetaminop 5-13 tablet by ity of hen (NORCO) 13:57: mouth [place] 10-325 mg 16 every 6 Medical tablet (six) Branch hours as needed. meloxicam 2022-0 Yes 15mg Take 15 mg [facility] [place] 15 mg 5-13 by mouth ity of tablet 13:57: daily. [place] [address] Medical Branch BUPROPION 2022-0 Yes 150mg Take 150 Uni vers HCL ORAL 5-13 mg by ity of 13:57: mouth. [place] [address] Indication Medical s: 2 Branch tablets BID gabapentin 2022-0 Yes 800mg Take 800 [facility] [place] (NEURONTIN) 5-13 mg by ity of 300 mg 13:57: mouth 3 [place] capsule 16 (three) Medical times Branch daily. HYDROcodone 2022-0 Yes 1{tbl} Take 1 [facility] [place] -acetaminop 5-13 tablet by ity of hen (NORCO) 13:57: mouth [place] 10-325 mg 16 every 6 Medical tablet (six) Branch hours as needed. meloxicam 2022-0 Yes 15mg Take 15 mg [facility] [place] 15 mg 5-13 by mouth ity of tablet 13:57: daily. [place] [address] Medical Branch BUPROPION 2022-0 Yes 150mg Take 150 Uni vers HCL ORAL 5-13 mg by ity of 13:57: mouth. [place] [address] Indication Medical s: 2 Branch tablets BID gabapentin 2022-0 Yes 800mg Take 800 [facility] [place] (NEURONTIN) 5-13 mg by ity of 300 mg 13:57: mouth 3 [place] capsule 16 (three) Medical times Branch daily. HYDROcodone 2022-0 Yes 1{tbl} Take 1 [facility] [place] -acetaminop 5-13 tablet by ity of hen (NORCO) 13:57: mouth [place] 10-325 mg 16 every 6 Medical tablet (six) Branch hours as needed. meloxicam 2022-0 Yes 15mg Take 15 mg [facility] [place] 15 mg 5-13 by mouth ity of tablet 13:57: daily. [address] Branch BUPROPION 2022-0 Yes 150mg Take 150 Uni vers HCL ORAL 5-13 mg by ity of 13:57: mouth. [place] [address] Indication Medical s: 2 Branch tablets BID gabapentin 2022-0 Yes 800mg Take 800 [facility] [place] (NEURONTIN) 5-13 mg by ity of 300 mg 13:57: mouth 3 [place] capsule 16 (three) Medical times Branch daily. HYDROcodone 2022-0 Yes 1{tbl} Take 1 [facility] [place] -acetaminop 5-13 tablet by ity of hen (NORCO) 13:57: mouth [place] 10-325 mg 16 every 6 Medical tablet (six) Branch hours as needed. meloxicam 2022-0 Yes 15mg Take 15 mg [facility] [place] 15 mg 5-13 by mouth ity of tablet 13:57: daily. [place] [address] Medical Branch BUPROPION 2022-0 Yes 150mg Take 150 Uni vers HCL ORAL 5-13 mg by ity of 13:57: mouth. [place] [address] Indication Medical s: 2 Branch tablets BID gabapentin 2022-0 Yes 800mg Take 800 [facility] [place] (NEURONTIN) 5-13 mg by ity of 300 mg 13:57: mouth 3 [place] capsule 16 (three) Medical times Branch daily. HYDROcodone 2022-0 Yes 1{tbl} Take 1 [facility] [place] -acetaminop 5-13 tablet by ity of hen ([address]) 13:57: mouth [place] 10-325 mg 16 every 6 Medical tablet (six) Branch hours as needed. meloxicam 2022-0 Yes 15mg Take 15 mg [facility] [place] 15 mg 5-13 by mouth ity of tablet 13:57: daily. [place] [address] Medical Branch BUPROPION 2022-0 Yes 150mg Take 150 Uni vers HCL ORAL 5-13 mg by ity of 13:57: mouth. [place] [address] Indication Medical s: 2 Branch tablets BID gabapentin 2022-0 Yes 800mg Take 800 [facility] [place] (NEURONTIN) 5-13 mg by ity of 300 mg 13:57: mouth 3 [place] capsule 16 (three) Medical times Branch daily. HYDROcodone 2022-0 Yes 1{tbl} Take 1 [facility] -acetaminop 5-13 tablet by ity of hen (NORCO) 13:57: mouth [place] 10-325 mg 16 every 6 Medical tablet (six) Branch hours as needed. meloxicam 2022-0 Yes 15mg Take 15 mg [facility] [place] 15 mg 5-13 by mouth ity of tablet 13:57: daily. [place] [address] Medical Branch BUPROPION 2022-0 Yes 150mg Take 150 Uni vers HCL ORAL 5-13 mg by ity of 13:57: mouth. [place] [address] Indication Medical s: 2 Branch tablets BID gabapentin 2022-0 Yes 800mg Take 800 [facility] [place] (NEURONTIN) 5-13 mg by ity of 300 mg 13:57: mouth 3 [place] capsule 16 (three) Medical times Branch daily. HYDROcodone 2022-0 Yes 1{tbl} Take 1 [facility] [place] -acetaminop 5-13 tablet by ity of hen (NORCO) 13:57: mouth [place] 10-325 mg 16 every 6 Medical tablet (six) Branch hours as needed. meloxicam 2022-0 Yes 15mg Take 15 mg [facility] [place] 15 mg 5-13 by mouth ity of tablet 13:57: daily. [place] [address] Medical Branch BUPROPION 2022-0 Yes 150mg Take 150 Uni vers HCL ORAL 5-13 mg by ity of 13:57: mouth. [place] [address] Indication Medical s: 2 Branch tablets BID gabapentin 2022-0 Yes 800mg Take 800 [facility] [place] (NEURONTIN) 5-13 mg by ity of 300 mg 13:57: mouth 3 [place] capsule 16 (three) Medical times Branch daily. HYDROcodone 2022-0 Yes 1{tbl} Take 1 [facility] [place] -acetaminop 5-13 tablet by ity of hen (NORCO) 13:57: mouth [place] 10-325 mg 16 every 6 Medical tablet (six) Branch hours as needed. meloxicam 2022-0 Yes 15mg Take 15 mg [facility] [place] 15 mg 5-13 by mouth ity of tablet 13:57: daily. [place] [address] Medical Branch BUPROPION 2022-0 Yes 150mg Take 150 Uni vers HCL ORAL 5-13 mg by ity of 13:57: mouth. [place] [address] Indication Medical s: 2 Branch tablets BID gabapentin 2022-0 Yes 800mg Take 800 [facility] [place] (NEURONTIN) 5-13 mg by ity of 300 mg 13:57: mouth 3 [place] capsule 16 (three) Medical times Branch daily. HYDROcodone 2022-0 Yes 1{tbl} Take 1 [facility] [place] -acetaminop 5-13 tablet by ity of hen (NORCO) 13:57: mouth [place] 10-325 mg 16 every 6 Medical tablet (six) Branch hours as needed. meloxicam 2022-0 Yes 15mg Take 15 mg [facility] [place] 15 mg 5-13 by mouth ity of tablet 13:57: daily. [place] [address] Medical Branch BUPROPION 2022-0 Yes 150mg Take 150 Uni vers HCL ORAL 5-13 mg by ity of 13:57: mouth. [place] [address] Indication Medical s: 2 Branch tablets BID gabapentin 2022-0 Yes 800mg Take 800 [facility] [place] (NEURONTIN) 5-13 mg by ity of 300 mg 13:57: mouth 3 [place] capsule 16 (three) Medical times Branch daily. HYDROcodone 2022-0 Yes 1{tbl} Take 1 [facility] [place] -acetaminop 5-13 tablet by ity of hen (NORCO) 13:57: mouth [place] 10-325 mg 16 every 6 Medical tablet (six) Branch hours as needed. meloxicam 2022-0 Yes 15mg Take 15 mg [facility] [place] 15 mg 5-13 by mouth ity of tablet 13:57: daily. [place] [address] Medical Branch BUPROPION 2022-0 Yes 150mg Take 150 Uni vers HCL ORAL 5-13 mg by ity of 13:57: mouth. [place] [address] Indication Medical s: 2 Branch tablets BID gabapentin 2022-0 Yes 800mg Take 800 [facility] [place] (NEURONTIN) 5-13 mg by ity of 300 mg 13:57: mouth 3 [place] capsule 16 (three) Medical times Branch daily. atorvastati 0 Yes 10mg Take 10 mg [facility] n (LIPITOR) 5-13 by mouth ity of 10 mg 13:57: at [place] tablet 16 bedtime. Medical Branch HYDROcodone 0 Yes 1{tbl} Take 1 [facility] -acetaminop 5-13 tablet by ity of hen (NORCO) 13:57: mouth [place] 10-325 mg 16 every 6 Medical tablet (six) Branch hours as needed. meloxicam 0 Yes 15mg Take 15 mg [facility] 15 mg 5-13 by mouth ity of tablet 13:57: daily. [place] [address] Medical Branch metFORMIN 0 Yes 500mg Take 500 Uni vers 500 mg 5-13 mg by ity of tablet 13:57: mouth [place] 16 daily. Medical Branch pantoprazol 0 Yes 40mg Take 40 mg [facility] e 40 mg EC 5-13 by mouth ity o f tablet 13:57: daily. [address] Branch lovastatin 0 Yes 40mg Take 40 mg U nivers 40 mg 5-13 by mouth ity of tablet 13:57: daily. [place] [address] Medical Branch mirtazapine 0 Yes 15mg Take 15 mg [facility] 15 mg 5-13 by mouth ity of tablet 13:57: at [place] 16 bedtime. Medical Branch SITagliptin 0 Yes Take by Uni vers -metformin 5-13 mouth. ity of (JANUMET 13:57: Indication [place] as XR) 16 s: 2 tabs Medical 50-1,000 mg BID Branch per tablet BUPROPION 0 Yes 150mg Take 150 Uni vers HCL ORAL 5-13 mg by ity of 13:57: mouth. [place] [address] Indication Medical s: 2 Branch tablets BID cyclobenzap 0 Yes 10mg Take 10 mg [facility] rine 10 mg 5-13 by mouth 3 ity of tablet 13:57: (three) [place] 16 times Medical daily. Branch gabapentin 2021-0 [...] by mouth ity of tablet 13:57: daily. [place] [address] Medical Branch metFORMIN 0 Yes 500mg Take 500 Uni vers 500 mg 5-13 mg by ity of tablet 13:57: mouth [place] 16 daily. Medical Branch pantoprazol Yes 40mg Take 40 mg [facility] e 40 mg EC 5-13 by mouth ity o f tablet 13:57: daily. [place] [address] Medical Branch lovastatin 0 Yes 40mg Take 40 mg [facility] 40 mg 5-13 by mouth ity of tablet 13:57: daily. [place] [address] Medical Branch mirtazapine 0 Yes 15mg Take [...] by mouth ity of tablet 13:57: daily. [place] [address] Medical Branch metFORMIN 0 Yes 500mg Take 500 Uni vers 500 mg 5-13 mg by ity of tablet 13:57: mouth [place] 16 daily. Medical Branch pantoprazol Yes 40mg Take 40 mg [facility] e 40 mg EC 5-13 by mouth ity o f tablet 13:57: daily. [place] [address] Medical Branch lovastatin Yes 40mg Take 40 mg [facility] 40 mg 5-13 by mouth ity of tablet 13:57: daily. [place] [address] Medical Branch mirtazapine Yes 15mg Take 15 [...] by mouth ity of tablet 13:57: daily. [place] [address] Medical Branch metFORMIN 0 Yes 500mg Take 500 [facility] vers 500 mg 5-13 mg by ity of tablet 13:57: mouth [place] 16 daily. Medical Branch pantoprazol 0 Yes 40mg Take 40 mg [facility] e 40 mg EC 5-13 by mouth ity o f tablet 13:57: daily. [place] [address] Medical Branch lovastatin 0 Yes 40mg Take 40 mg [facility] n[facility] 40 mg 5-13 by mouth ity of tablet 13:57: daily. [place] [address] Medical Branch mirtazapine 0 Yes 15mg Take [...] 5-13 mg by ity of 13:57: mouth. [place] 16 Indication Medical s: 2 Branch tablets [...] by mouth ity of tablet 13:57: daily. [place] [address] Medical Branch metFORMIN 0 Yes 500mg Take 500 Uni vers 500 mg 5-13 mg by ity of tablet 13:57: mouth [place] 16 daily. Medical Branch pantoprazol 0 Yes 40mg Take 40 mg [facility] e 40 mg EC 5-13 by mouth ity o f tablet 13:57: daily. [place] [address] Medical Branch lovastatin 0 Yes 40mg Take 40 mg [facility] 40 mg 5-13 by mouth ity of tablet 13:57: daily. [place] [address] Medical Branch mirtazapine 0 Yes 15mg Take [...] by mouth ity of tablet 13:57: daily. [place] [address] Medical Branch metFORMIN 0 Yes 500mg Take 500 [facility] vers 500 mg 5-13 mg by ity of tablet 13:57: mouth [place] 16 daily. Medical Branch pantoprazol 0 Yes 40mg Take 40 mg [facility] e 40 mg EC 5-13 by mouth ity o f tablet 13:57: daily. [place] [address] Medical Branch lovastatin 0 Yes 40mg Take 40 mg [facility] 40 mg 5-13 by mouth ity of tablet 13:57: daily. [place] [address] Medical Branch mirtazapine 0 Yes 15mg Take [...] 5-13 mg by ity of 13:57: mouth. [place] 16 Indication Medical s: 2 Branch tablets [...] by mouth ity of tablet 13:57: daily. [place] [address] Medical Branch metFORMIN 0 Yes 500mg Take 500 [facility] vers 500 mg 5-13 mg by ity of tablet 13:57: mouth [place] 16 daily. Medical Branch pantoprazol 0 Yes 40mg Take 40 mg [facility] e 40 mg EC 5-13 by mouth ity o f tablet 13:57: daily. [place] [address] Medical Branch mirtazapine 0 Yes 15mg Take [...] 5-13 mg by ity of 13:57: mouth. [place] 16 Indication Medical s: 2 Branch tablets [...] meloxicam Yes 15mg Take 15 mg [facility] [place] 15 mg 5-13 by mouth ity of tablet 13:57: daily. [place] [address] Medical Branch metFORMIN 0 Yes 500mg Take 500 [facility] vers 500 mg 5-13 mg by ity of tablet 13:57: mouth [place] 16 daily. Medical Branch pantoprazol Yes 40mg Take 40 mg [facility] e 40 mg EC 5-13 by mouth ity o f tablet 13:57: daily. [place] [address] Medical Branch mirtazapine 0 Yes 15mg Take [...] 5-13 mg by ity of 13:57: mouth. [place] [address] Indication Medical s: 2 Branch tablets BID [...] by mouth ity of tablet 13:57: daily. [place] [address] Medical Branch metFORMIN 0 Yes 500mg Take 500 [facility] vers 500 mg 5-13 mg by ity of tablet 13:57: mouth [place] 16 daily. Medical Branch pantoprazol Yes 40mg Take 40 mg [facility] e 40 mg EC 5-13 by mouth ity o f tablet 13:57: daily. [place] [address] Medical Branch mirtazapine 0 Yes 15mg Take [...] 5-13 mg by ity of 13:57: mouth. [place] [address] Indication Medical s: 2 Branch tablets BID cyclobenzap 2022-0 Yes 10mg Take 10 mg [facility] rine 10 mg 5-13 by mouth 3 ity of tablet 13:57: (three) [place] 16 times Medical daily. Branch gabapentin 0 [...] by mouth ity of tablet 13:57: daily. [place] [address] Medical Branch metFORMIN 0 Yes 500mg Take 500 [facility] vers 500 mg 5-13 mg by ity of tablet 13:57: mouth [place] 16 daily. Medical Branch pantoprazol Yes 40mg Take 40 mg [facility] e 40 mg EC 5-13 by mouth ity o f tablet 13:57: daily. [place] [address] Medical Branch mirtazapine 0 Yes 15mg Take 15 mg [facility] 15 mg 5-13 by mouth ity of tablet 13:57: at [place] 16 bedtime. Medical Branch SITagliptin Yes Take by [facility] vers -metformin 5-13 mouth. ity of (JANUMET 13:57: Indication [place] as XR) 16 s: 2 tabs Medical 50-1,000 mg BID Branch per tablet BUPROPION 0 Yes 150mg Take 150 Uni vers HCL ORAL 5-13 mg by ity of 13:57: mouth. [place] [address] Indication Medical s: 2 Branch tablets BID [...] by mouth ity of tablet 13:57: daily. [place] [address] Medical Branch metFORMIN Yes 500mg Take 500 Uni vers 500 mg 5-13 mg by ity of tablet 13:57: mouth [place] 16 daily. Medical Branch pantoprazol Yes 40mg Take 40 mg [facility] e 40 mg EC 5-13 by mouth ity o f tablet 13:57: daily. [place] [address] Medical Branch mirtazapine Yes 15mg Take 15 [...] 5-13 mg by ity of 13:57: mouth. [place] 16 Indication Medical s: 2 Branch tablets [...] by mouth ity of tablet 13:57: daily. [place] [address] Medical Branch metFORMIN 0 Yes 500mg Take 500 [facility] vers 500 mg 5-13 mg by ity of tablet 13:57: mouth [place] 16 daily. Medical Branch pantoprazol 0 Yes 40mg Take 40 mg [facility] e 40 mg EC 5-13 by mouth ity o f tablet 13:57: daily. [place] [address] Medical Branch mirtazapine 0 Yes 15mg Take [...] 5-13 mg by ity of 13:57: mouth. [place] 16 Indication Medical s: 2 Branch tablets [...] by mouth ity of tablet 13:57: daily. [place] [address] Medical Branch metFORMIN 2021-0 Yes 500mg Take 500 [facility] vers 500 mg 5-13 mg by ity of tablet 13:57: mouth [place] 16 daily. Medical Branch pantoprazol 0 Yes 40mg Take 40 mg [facility] e 40 mg EC 5-13 by mouth ity o f tablet 13:57: daily. [place] [address] Medical Branch mirtazapine 0 Yes 15mg Take [...] 5-13 mg by ity of 13:57: mouth. [place] 16 Indication Medical s: 2 Branch tablets [...] by mouth ity of tablet 13:57: daily. [place] [address] Medical Branch metFORMIN 0 Yes 500mg Take 500 Uni vers 500 mg 5-13 mg by ity of tablet 13:57: mouth [place] 16 daily. Medical Branch pantoprazol 0 Yes 40mg Take 40 mg Univers e 40 mg EC 5-13 by mouth ity o f tablet 13:57: daily. [place] [address] Medical Branch mirtazapine 0 Yes 15mg Take [...] 5-13 mg by ity of 13:57: mouth. [place] 16 Indication Medical s: 2 Branch tablets [...] by mouth ity of tablet 13:57: daily. [place] [address] Medical Branch metFORMIN Yes 500mg Take 500 Uni vers 500 mg 5-13 mg by ity of tablet 13:57: mouth [place] 16 daily. Medical Branch pantoprazol Yes 40mg Take 40 mg [facility] e 40 mg EC 5-13 by mouth ity o f tablet 13:57: daily. [place] [address] Medical Branch mirtazapine Yes 15mg Take 15 [...] 5-13 mg by ity of 13:57: mouth. [place] [address] Indication Medical s: 2 Branch tablets BID [...] mouth ity of 10 mg 13:57: at [place] tablet 16 bedtime. Medical Branch HYDROcodone 0 Yes 1{tbl} Take 1 Un [place] -acetaminop 5-13 tablet by ity of hen (NORCO) 13:57: mouth [place] 10-325 mg 16 every 6 Medical tablet (six) Branch hours as needed. meloxicam 0 Yes 15mg Take 15 mg [facility] [place] 15 mg 5-13 by mouth ity of tablet 13:57: daily. [place] [address] Medical Branch metFORMIN 0 Yes 500mg Take 500 Uni vers 500 mg 5-13 mg by ity of tablet 13:57: mouth [place] 16 daily. Medical Branch pantoprazol 0 Yes 40mg Take 40 mg [facility] e 40 mg EC 5-13 by mouth ity o f tablet 13:57: daily. [place] [address] Medical Branch mirtazapine 0 Yes 15mg Take 15 mg [facility] 15 mg 5-13 by mouth ity of tablet 13:57: at [place] 16 bedtime. Medical Branch SITagliptin 0 Yes Take by Uni vers -metformin 5-13 mouth. ity of (JANUMET 13:57: Indication [place] as XR) 16 s: 2 tabs Medical 50-1,000 mg BID Branch per tablet BUPROPION 0 Yes 150mg Take 150 Uni vers HCL ORAL 5-13 mg by ity of 13:57: mouth. [place] [address] Indication Medical s: 2 Branch tablets BID cyclobenzap 0 Yes 10mg Take 10 mg Univers rine 10 mg 5-13 by mouth 3 ity of tablet 13:57: (three) [place] 16 times Medical daily. Branch gabapentin 0 [...] by mouth ity of tablet 13:57: daily. [place] [address] Medical Branch metFORMIN 0 Yes 500mg Take 500 Uni vers 500 mg 5-13 mg by ity of tablet 13:57: mouth [place] 16 daily. Medical Branch pantoprazol 0 Yes 40mg Take 40 mg [facility] e 40 mg EC 5-13 by mouth ity o f tablet 13:57: daily. [place] [address] Medical Branch mirtazapine 0 Yes 15mg Take 15 mg [facility] 15 mg 5-13 by mouth ity of tablet 13:57: at [place] 16 bedtime. Medical Branch SITagliptin 0 Yes Take by Uni vers -metformin 5-13 mouth. ity of (JANUMET 13:57: Indication [place] as XR) 16 s: 2 tabs Medical 50-1,000 mg BID Branch per tablet BUPROPION 2021-0 Yes 150mg Take 150 Uni vers HCL ORAL 5-13 mg by ity of 13:57: mouth. [place] 16 Indication Medical s: 2 Branch tablets [...] by mouth ity of tablet 13:57: daily. [place] [address] Medical Branch metFORMIN 0 Yes 500mg Take 500 Uni vers 500 mg 5-13 mg by ity of tablet 13:57: mouth [place] 16 daily. Medical Branch pantoprazol 0 Yes 40mg Take 40 mg [facility] e 40 mg EC 5-13 by mouth ity o f tablet 13:57: daily. [place] [address] Medical Branch mirtazapine 0 Yes 15mg Take [...] tablet (six) Branch hours as needed. meloxicam 2022-0 Yes 15mg Take 15 mg [facility] [place] 15 mg 5-13 by mouth ity of tablet 13:57: daily. [place] [address] Medical Branch metFORMIN Yes 500mg Take 500 Uni vers 500 mg 5-13 mg by ity of tablet 13:57: mouth [place] 16 daily. Medical Branch pantoprazol 0 Yes 40mg Take 40 mg [facility] e 40 mg EC 5-13 by mouth ity o f tablet 13:57: daily. [place] [address] Medical Branch mirtazapine 0 Yes 15mg Take [...] 5-13 mg by ity of 13:57: mouth. [place] 16 Indication Medical s: 2 Branch tablets [...] by mouth ity of tablet 13:57: daily. [place] [address] Medical Branch metFORMIN Yes 500mg Take 500 Uni vers 500 mg 5-13 mg by ity of tablet 13:57: mouth [place] 16 daily. Medical Branch pantoprazol 0 Yes 40mg Take 40 mg [facility] e 40 mg EC 5-13 by mouth ity o f tablet 13:57: daily. [place] [address] Medical Branch mirtazapine Yes 15mg Take 15 mg Univers 15 mg 5-13 by mouth ity of tablet 13:57: at [place] 16 bedtime. Medical Branch SITagliptin Yes Take by Uni vers -metformin 5-13 mouth. ity of (JANUMET 13:57: Indication [place] as XR) 16 s: 2 tabs Medical 50-1,000 mg BID Branch per tablet BUPROPION Yes 150mg Take 150 Uni vers HCL ORAL 5-13 mg by ity of 13:57: mouth. [place] [address] Indication Medical s: 2 Branch tablets BID [...] mouth ity of 10 mg 13:57: at [facility] 16 bedtime. Medical Branch HYDROcodone Yes 1{tbl} Take 1 [facility] [place] -acetaminop 5-13 tablet by ity of hen (NORCO) 13:57: mouth [place] 10-325 mg 16 every 6 Medical tablet (six) Branch hours as needed. meloxicam Yes 15mg Take 15 mg [facility] [place] 15 mg 5-13 by mouth ity of tablet 13:57: daily. [place] [address] Medical Branch metFORMIN Yes 500mg Take 500 Uni vers 500 mg 5-13 mg by ity of tablet 13:57: mouth [place] 16 daily. Medical Branch pantoprazol Yes 40mg Take 40 mg Univers e 40 mg EC 5-13 by mouth ity o f tablet 13:57: daily. [place] [address] Medical Branch mirtazapine Yes 15mg Take 15 mg Univers 15 mg 5-13 by mouth ity of tablet 13:57: at [place] 16 bedtime. Medical Branch SITagliptin Yes Take by Uni vers -metformin 5-13 mouth. ity of (JUNUMET 13:57: Indication [place] as XR) 16 s: 2 tabs Medical 50-1,000 mg BID Branch per tablet BUPROPION 0 Yes 150mg Take 150 Uni vers HCL ORAL 5-13 mg by ity of 13:57: mouth. [place] [address] Indication Medical s: 2 Branch tablets BID [...] ity of 10 mg 13:57: at [place] [facility] 16 bedtime. Medical Branch HYDROcodone Yes 1{tbl} Take 1 [facility] [place] -acetaminop 5-13 tablet by ity of hen (NORCO) 13:57: mouth [place] 10-325 mg 16 every 6 Medical tablet (six) Branch hours as needed. meloxicam Yes 15mg Take 15 mg [facility] [place] 15 mg 5-13 by mouth ity of tablet 13:57: daily. [place] [address] Medical Branch metFORMIN 0 Yes 500mg Take 500 Uni vers 500 mg 5-13 mg by ity of tablet 13:57: mouth [place] 16 daily. Medical Branch pantoprazol Yes 40mg Take 40 mg Univers e 40 mg EC 5-13 by mouth ity o f tablet 13:57: daily. [place] [address] Medical Branch mirtazapine 0 Yes 15mg Take [...] 5-13 mg by ity of 13:57: mouth. [place] [address] Indication Medical s: 2 Branch tablets BID [...] by mouth ity of tablet 13:57: daily. [place] [address] Medical Branch metFORMIN 0 Yes 500mg Take 500 Uni vers 500 mg 5-13 mg by ity of tablet 13:57: mouth [place] 16 daily. Medical Branch pantoprazol 0 Yes 40mg Take 40 mg Univers e 40 mg EC 5-13 by mouth ity o f tablet 13:57: daily. [place] [address] Medical Branch mirtazapine 0 Yes 15mg Take [...] by mouth ity of tablet 13:57: daily. [place] [address] Medical Branch metFORMIN 0 Yes 500mg Take 500 Uni vers 500 mg 5-13 mg by ity of tablet 13:57: mouth [place] 16 daily. Medical Branch pantoprazol Yes 40mg Take 40 mg [facility] e 40 mg EC 5-13 by mouth ity o f tablet 13:57: daily. [place] [address] Medical Branch mirtazapine Yes 15mg Take 15 [...] 5-13 mg by ity of 13:57: mouth. [place] [address] Indication Medical s: 2 Branch tablets BID [...] by mouth ity of tablet 13:57: daily. [place] [address] Medical Branch metFORMIN 0 Yes 500mg Take 500 Uni vers 500 mg 5-13 mg by ity of tablet 13:57: mouth [place] 16 daily. Medical Branch pantoprazol 0 Yes 40mg Take 40 mg Univers e 40 mg EC 5-13 by mouth ity o f tablet 13:57: daily. [place] [address] Medical Branch mirtazapine 0 Yes 15mg Take [...] 5-13 mg by ity of 13:57: mouth. [place] 16 Indication Medical s: 2 Branch tablets [...] by mouth ity of tablet 13:57: daily. [place] [address] Medical Branch metFORMIN 2022-0 Yes 500mg Take 500 Uni vers 500 mg 5-13 mg by ity of tablet 13:57: mouth [place] 16 daily. Medical Branch pantoprazol 0 Yes 40mg Take 40 mg Univers e 40 mg EC 5-13 by mouth ity o f tablet 13:57: daily. [place] [address] Medical Branch mirtazapine 0 Yes 15mg Take [...] by mouth ity of tablet 13:57: daily. [place] [address] Medical Branch metFORMIN 0 Yes 500mg Take 500 Uni vers 500 mg 5-13 mg by ity of tablet 13:57: mouth [place] 16 daily. Medical Branch pantoprazol 0 Yes 40mg Take 40 mg Univers e 40 mg EC 5-13 by mouth ity o f tablet 13:57: daily. [place] [address] Medical Branch mirtazapine 2022-0 Yes 15mg Take 15 [...] 5-13 mg by ity of 13:57: mouth. [place] 16 Indication Medical s: 2 Branch tablets [...] by mouth ity of tablet 13:57: daily. [place] [address] Medical Branch metFORMIN Yes 500mg Take 500 Uni vers 500 mg 5-13 mg by ity of tablet 13:57: mouth [place] 16 daily. Medical Branch pantoprazol Yes 40mg Take 40 mg Univers e 40 mg EC 5-13 by mouth ity o f tablet 13:57: daily. [place] [address] Medical Branch mirtazapine 0 Yes 15mg Take [...] 5-13 mg by ity of 13:57: mouth. [place] [address] Indication Medical s: 2 Branch tablets BID [...] by mouth ity of tablet 13:57: daily. [place] [address] Medical Branch metFORMIN 0 Yes 500mg Take 500 Uni vers 500 mg 5-13 mg by ity of tablet 13:57: mouth [place] 16 daily. Medical Branch pantoprazol 0 Yes 40mg Take 40 mg Univers e 40 mg EC 5-13 by mouth ity o f tablet 13:57: daily. [place] [address] Medical Branch mirtazapine 0 Yes 15mg Take [...] 5-13 mg by ity of 13:57: mouth. [place] [address] Indication Medical s: 2 Branch tablets BID cyclobenzap 0 Yes 10mg Take 10 mg Univers rine 10 mg 5-13 by mouth 3 ity of tablet 13:57: (three) [place] 16 times Medical daily. Branch gabapentin 0 [...] by mouth ity of tablet 13:57: daily. [place] [address] Medical Branch metFORMIN 0 Yes 500mg Take 500 Uni vers 500 mg 5-13 mg by ity of tablet 13:57: mouth [place] 16 daily. Medical Branch pantoprazol 0 Yes 40mg Take 40 mg Univers e 40 mg EC 5-13 by mouth ity o f tablet 13:57: daily. [place] [address] Medical Branch mirtazapine 0 Yes 15mg Take 15 mg Univers 15 mg 5-13 by mouth ity of tablet 13:57: at [place] 16 bedtime. Medical Branch SITagliptin 0 Yes Take by Uni vers -metformin 5-13 mouth. ity of (JANUMET 13:57: Indication [place] as XR) 16 s: 2 tabs Medical 50-1,000 mg BID Branch per tablet BUPROPION 0 Yes 150mg Take 150 Uni vers HCL ORAL 5-13 mg by ity of 13:57: mouth. [place] [address] Indication Medical s: 2 Branch tablets BID cyclobenzap 0 Yes 10mg Take 10 mg Univers rine 10 mg 5-13 by mouth 3 ity of tablet 13:57: (three) [place] 16 times Medical daily. Branch gabapentin 2021-0 [...] by mouth ity of tablet 13:57: daily. [place] [address] Medical Branch metFORMIN 0 Yes 500mg Take 500 Uni vers 500 mg 5-13 mg by ity of tablet 13:57: mouth [place] 16 daily. Medical Branch pantoprazol 0 Yes 40mg Take 40 mg Univers e 40 mg EC 5-13 by mouth ity o f tablet 13:57: daily. [place] [address] Medical Branch mirtazapine 0 Yes 15mg Take [...] 5-13 mg by ity of 13:57: mouth. [place] [address] Indication Medical s: 2 Branch tablets BID gabapentin 0 Yes 800mg Take 800 Un [...] by mouth ity of tablet 13:57: daily. [place] [address] Medical Branch metFORMIN Yes 500mg Take 500 Uni vers 500 mg 5-13 mg by ity of tablet 13:57: mouth [place] 16 daily. Medical Branch pantoprazol Yes 40mg Take 40 mg Univers e 40 mg EC 5-13 by mouth ity o f tablet 13:57: daily. [place] [address] Medical Branch mirtazapine Yes 15mg Take 15 [...] 5-13 mg by ity of 13:57: mouth. [place] [address] Indication Medical s: 2 Branch tablets BID gabapentin Yes 800mg Take 800 [facility] [place] (NEURONTIN) 5-13 mg by ity of 300 mg 13:57: mouth 3 [place] capsule 16 (three) Medical times Branch daily. atorvastati Yes 10mg Take 10 mg Univers n (LIPITOR) 5-13 by mouth ity of 10 mg 13:57: at [facility] 16 bedtime. Medical Branch HYDROcodone Yes 1{tbl} Take 1 Un [place] -acetaminop 5-13 tablet by ity of hen (NORCO) 13:57: mouth [place] 10-325 mg 16 every 6 Medical tablet (six) Branch hours as needed. meloxicam Yes 15mg Take 15 mg [facility] [place] 15 mg 5-13 by mouth ity of tablet 13:57: daily. [place] [address] Medical Branch metFORMIN Yes 500mg Take 500 Uni vers 500 mg 5-13 mg by ity of tablet 13:57: mouth [place] 16 daily. Medical Branch pantoprazol Yes 40mg Take 40 mg Univers e 40 mg EC 5-13 by mouth ity o f tablet 13:57: daily. [place] [address] Medical Branch mirtazapine Yes 15mg Take 15 mg Univers 15 mg 5-13 by mouth ity of tablet 13:57: at [place] 16 bedtime. Medical Branch SITagliptin 2022-0 Yes Take by Uni vers -metformin 5-13 mouth. ity of (JUNUMET 13:57: Indication [place] as XR) 16 s: 2 tabs Medical 50-1,000 mg BID Branch per tablet BUPROPION 0 Yes 150mg Take 150 Uni vers HCL ORAL 5-13 mg by ity of 13:57: mouth. [place] [address] Indication Medical s: 2 Branch tablets BID gabapentin Yes 800mg Take 800 Un [place] [...] by mouth ity of tablet 13:57: daily. [place] [address] Medical Branch metFORMIN Yes 500mg Take 500 Uni vers 500 mg 5-13 mg by ity of tablet 13:57: mouth [place] 16 daily. Medical Branch pantoprazol Yes 40mg Take 40 mg Univers e 40 mg EC 5-13 by mouth ity o f tablet 13:57: daily. [place] [address] Medical Branch mirtazapine Yes 15mg Take 15 [...] 5-13 mg by ity of 13:57: mouth. [place] [address] Indication Medical s: 2 Branch tablets BID gabapentin 0 Yes 800mg Take 800 Un [...] by mouth ity of tablet 13:57: daily. [place] [address] Medical Branch metFORMIN Yes 500mg Take 500 Uni vers 500 mg 5-13 mg by ity of tablet 13:57: mouth [place] 16 daily. Medical Branch pantoprazol Yes 40mg Take 40 mg Univers e 40 mg EC 5-13 by mouth ity o f tablet 13:57: daily. [place] [address] Medical Branch mirtazapine Yes 15mg Take 15 [...] 5-13 mg by ity of 13:57: mouth. [place] [address] Indication Medical s: 2 Branch tablets BID gabapentin Yes 800mg Take 800 [facility] [place] (NEURONTIN) 5-13 mg by ity of 300 mg 13:57: mouth 3 [place] capsule 16 (three) Medical times Branch daily. atorvastati Yes 10mg Take 10 mg Univers n (LIPITOR) 5-13 by mouth ity of 10 mg 13:57: at [place] tablet 16 bedtime. Medical Branch HYDROcodone Yes 1{tbl} Take 1 Un [place] -acetaminop 5-13 tablet by ity of hen (NORCO) 13:57: mouth [place] 10-325 mg 16 every 6 Medical tablet (six) Branch hours as needed. meloxicam 2022-0 Yes 15mg Take 15 mg [facility] [place] 15 mg 5-13 by mouth ity of tablet 13:57: daily. [place] [address] Medical Branch metFORMIN Yes 500mg Take 500 Uni vers 500 mg 5-13 mg by ity of tablet 13:57: mouth [place] 16 daily. Medical Branch pantoprazol Yes 40mg Take 40 mg Univers e 40 mg EC 5-13 by mouth ity o f tablet 13:57: daily. [place] [address] Medical Branch mirtazapine Yes 15mg Take 15 [...] 5-13 mg by ity of 13:57: mouth. [place] [address] Indication Medical s: 2 Branch tablets BID gabapentin Yes 800mg Take 800 [facility] [place] (NEURONTIN) 5-13 mg by ity of 300 mg 13:57: mouth 3 [place] capsule 16 (three) Medical times Branch daily. atorvastati Yes 10mg Take 10 mg Univers n (LIPITOR) 5-13 by mouth ity of 10 mg 13:57: at [place] [facility] 16 bedtime. Medical Branch HYDROcodone Yes 1{tbl} Take 1 Un [place] -acetaminop 5-13 tablet by ity of hen (NORCO) 13:57: mouth [place] 10-325 mg 16 every 6 Medical tablet (six) Branch hours as needed. meloxicam Yes 15mg Take 15 mg [facility] [place] 15 mg 5-13 by mouth ity of tablet 13:57: daily. [place] [address] Medical Branch metFORMIN Yes 500mg Take 500 Uni vers 500 mg 5-13 mg by ity of tablet 13:57: mouth [place] 16 daily. Medical Branch pantoprazol Yes 40mg Take 40 mg Univers e 40 mg EC 5-13 by mouth ity o f tablet 13:57: daily. [place] [address] Medical Branch mirtazapine Yes 15mg Take 15 mg Univers 15 mg 5-13 by mouth ity of tablet 13:57: at [place] 16 bedtime. Medical Branch SITagliptin Yes Take by Uni vers -metformin 5-13 mouth. ity of (JANUMET 13:57: Indication [place] as XR) 16 s: 2 tabs Medical 50-1,000 mg BID Branch per tablet BUPROPION Yes 150mg Take 150 Uni vers HCL ORAL 5-13 mg by ity of 13:57: mouth. [place] 16 Indication Medical s: 2 Branch tablets BID Tamsulosin Tamsulosin 2021- No 1{capsu QD Tamsulosin [...] t} le Sodium MG MG 40 MG Immunizations Ordered Filled Date Status Comments Source Immunization Name Immunization Name Influenza Virus 2022-07-28 Completed [facility], 00:00:00 [place] [facility] Preserv and ABX Branch Free 6 MO-64 YRS Influenza Virus 2022-07-28 Completed [facility] of Vaccine [facility], 00:00:00 [place] [facility] Preserv and ABX Branch Free 6 MO-64 YRS Influenza Virus 2022-07-28 Completed [facility] y of Vaccine [facility] IM, 00:00:00 [place] [facility] Preserv and ABX Branch Free 6 MO-64 YRS Influenza Virus 2022-07-28 Completed [facility]it y of Vaccine [facility] IM, 00:00:00 [place] [facility] Preserv and ABX Branch Free 6 MO-64 YRS Influenza Virus 2022-07-28 Completed [facility] of Vaccine [facility] IM, 00:00:00 [place] [facility] Preserv and ABX Branch Free 6 MO-64 YRS Influenza Virus 2022-07-28 Completed [facility] y of Vaccine [facility] IM, 00:00:00 [place] [facility] Preserv and ABX Branch Free 6 MO-64 YRS Influenza Virus 2022-07-28 Completed [facility] of Vaccine Quad IM, 00:00:00 [place] Me [facility]ical Preserv and ABX Branch Free 6 MO-64 YRS Influenza Virus 2022-07-28 Completed [facility]it y of Vaccine Quad IM, 00:00:00 [place] Me dical Preserv and ABX Branch Free 6 MO-64 YRS Influenza Virus 2022-07-28 Completed [facility]it y of Vaccine [facility] IM, 00:00:00 [place] Me dical Preserv and ABX Branch Free 6 MO-64 YRS Influenza Virus 2022-07-28 Completed [facility]it y of Vaccine Quad IM, 00:00:00 [place] Me dical Preserv and ABX Branch Free 6 MO-64 YRS Influenza Virus 2022-07-28 Completed [facility] y of Vaccine Quad IM, 00:00:00 [place] Me dical Preserv and ABX Branch Free 6 MO-64 YRS Influenza Virus 2022-07-28 Completed Universit y of Vaccine Quad IM, 00:00:00 [place] Me dical Preserv and ABX Branch Free 6 MO-64 YRS Influenza Virus 2022-07-28 Completed [facility]it y of Vaccine Quad IM, 00:00:00 [place] Me dical Preserv and ABX Branch Free 6 MO-64 YRS Influenza Virus 2022-07-28 Completed [facility]it y of Vaccine Quad IM, 00:00:00 [place] Me dical Preserv and ABX Branch Free 6 MO-64 YRS Influenza Virus 2022-07-28 Completed [facility] of Vaccine [facility] IM, 00:00:00 [place] Me dical Preserv and ABX Branch Free 6 MO-64 YRS Influenza Virus 2022-07-28 Completed [facility] of Vaccine Quad IM, 00:00:00 [place] Me dical Preserv and ABX Branch Free 6 MO-64 YRS Influenza Virus 2022-07-28 Completed [facility] of Vaccine Quad IM, 00:00:00 [place] Me dical Preserv and ABX Branch Free 6 MO-64 YRS Influenza Virus 2022-07-28 Completed [facility]it [facility] of Vaccine Quad IM, 00:00:00 [place] Me dical Preserv and ABX Branch Free 6 MO-64 YRS Influenza Virus 2022-07-28 Completed [facility] of Vaccine Quad IM, 00:00:00 [place] Me dical Preserv and ABX Branch Free 6 MO-64 YRS Influenza Virus 2022-07-28 Completed [facility] of Vaccine Quad IM, 00:00:00 [place] Me dical Preserv and ABX Branch Free 6 MO-64 YRS Influenza Virus 2022-07-28 Completed [facility]it [facility] of Vaccine Quad IM, 00:00:00 [place] Me dical Preserv and ABX Branch Free 6 MO-64 YRS Influenza Virus 2022-07-28 Completed [facility]it y of Vaccine Quad IM, 00:00:00 [place] Me dical Preserv and ABX Branch Free 6 MO-64 YRS Influenza Virus 2022-07-28 Completed [facility]it y of Vaccine Quad IM, 00:00:00 [place] Me dical Preserv and ABX Branch Free 6 MO-64 YRS Influenza Virus 2022-07-28 Completed Universit y of Vaccine Quad IM, 00:00:00 [place] Me dical Preserv and ABX Branch Free 6 MO-64 YRS Influenza Virus 2022-07-28 Completed Universit y of Vaccine Quad IM, 00:00:00 [place] Me dical Preserv and ABX Branch Free 6 MO-64 YRS Influenza Virus 2022-07-28 Completed Universit y of Vaccine Quad IM, 00:00:00 [place] Me dical Preserv and ABX Branch Free 6 MO-64 YRS Influenza Virus 2022-07-28 Completed [facility]it y of Vaccine Quad IM, 00:00:00 [place] Me dical Preserv and ABX Branch Free 6 MO-64 YRS Influenza Virus 2022-07-28 Completed [facility] y of Vaccine Quad IM, 00:00:00 [place] Me dical Preserv and ABX Branch Free 6 MO-64 YRS Influenza Virus 2022-07-28 Completed [facility]it y of Vaccine Quad IM, 00:00:00 [place] Me dical Preserv and ABX Branch Free 6 MO-64 YRS Influenza Virus 2022-07-28 Completed Universit y of Vaccine Quad IM, 00:00:00 [place] Me dical Preserv and ABX Branch Free 6 MO-64 YRS Influenza Virus 2022-07-28 Completed [facility]it y of Vaccine Quad IM, 00:00:00 [place] Me dical Preserv and ABX Branch Free 6 MO-64 YRS Influenza Virus 2022-07-28 Completed [facility]it y of Vaccine Quad IM, 00:00:00 [place] Me dical Preserv and ABX Branch Free 6 MO-64 YRS Influenza Virus 2022-07-28 Completed [facility]it y of Vaccine Quad IM, 00:00:00 [place] Me dical Preserv and ABX Branch Free 6 MO-64 YRS Influenza Virus 2022-07-28 Completed Universit y of Vaccine Quad IM, 00:00:00 [place] Me dical Preserv and ABX Branch Free 6 MO-64 YRS Influenza Virus 2022-07-28 Completed Universit y of Vaccine Quad IM, 00:00:00 [place] Me dical Preserv and ABX Branch Free 6 MO-64 YRS Influenza Virus 2022-07-28 Completed Universit y of Vaccine Quad IM, 00:00:00 [place] Me dical Preserv and ABX Branch Free 6 MO-64 YRS Influenza Virus 2022-07-28 Completed Universit y of Vaccine Quad IM, 00:00:00 [place] Me dical Preserv and ABX Branch Free 6 MO-64 YRS Influenza Virus 2022-07-28 Completed [facility]it y of Vaccine Quad IM, 00:00:00 [place] Me dical Preserv and ABX Branch Free 6 MO-64 YRS Influenza Virus 2022-07-28 Completed [facility] y of Vaccine Quad IM, 00:00:00 [place] Me dical Preserv and ABX Branch Free 6 MO-64 YRS Influenza Virus 2022-07-28 Completed [facility] y of Vaccine Quad IM, 00:00:00 [place] Me dical Preserv and ABX Branch Free 6 MO-64 YRS Influenza Virus 2022-07-28 Completed [facility] y of Vaccine Quad IM, 00:00:00 [place] Me dical Preserv and ABX Branch Free 6 MO-64 YRS Influenza Virus 2022-07-28 Completed [facility]it y of Vaccine Quad IM, 00:00:00 [place] Me dical Preserv and ABX Branch Free 6 MO-64 YRS Influenza Virus 2022-07-28 Completed [facility]it y of Vaccine Quad IM, 00:00:00 [place] Me dical Preserv and ABX Branch Free 6 MO-64 YRS Influenza Virus 2022-07-28 Completed [facility] y of Vaccine Quad IM, 00:00:00 [place] Me dical Preserv and ABX Branch Free 6 MO-64 YRS Influenza Virus 2022-07-28 Completed [facility] y of Vaccine Quad IM, 00:00:00 [place] Me dical Preserv and ABX Branch Free 6 MO-64 YRS Influenza Virus 2022-07-28 Completed [facility] y of Vaccine Quad IM, 00:00:00 [place] Me dical Preserv and ABX Branch Free 6 MO-64 YRS Influenza Virus 2022-07-28 Completed [facility]it y of Vaccine Quad IM, 00:00:00 [place] Me dical Preserv and ABX Branch Free 6 MO-64 YRS Influenza Virus 2022-07-28 Completed Universit y of Vaccine Quad IM, 00:00:00 [place] Me dical Preserv and ABX Branch Free 6 MO-64 YRS Influenza Virus 2022-07-28 Completed Universit y of Vaccine Quad IM, 00:00:00 [place] Me dical Preserv and ABX Branch Free 6 MO-64 YRS Influenza Virus 2022-07-28 Completed [facility]it y of Vaccine Quad IM, 00:00:00 [place] Me dical Preserv and ABX Branch Free 6 MO-64 YRS Influenza Virus 2022-07-28 Completed [facility]it y of Vaccine Quad IM, 00:00:00 [place] Me dical Preserv and ABX Branch Free 6 MO-64 YRS Influenza Virus 2022-07-28 Completed Universit y of Vaccine Quad IM, 00:00:00 [place] Me dical Preserv and ABX Branch Free 6 MO-64 YRS Influenza Virus 2022-07-28 Completed [facility]it y of Vaccine Quad IM, 00:00:00 [place] Me dical Preserv and ABX Branch Free 6 MO-64 YRS Influenza Virus 2022-07-28 Completed [facility]it y of Vaccine Quad IM, 00:00:00 [place] Me dical Preserv and ABX Branch Free 6 MO-64 YRS Influenza Virus 2022-07-28 Completed [facility] y of Vaccine Quad IM, 00:00:00 [place] Me dical Preserv and ABX Branch Free 6 MO-64 YRS Influenza Virus 2022-07-28 Completed [facility] y of Vaccine Quad IM, 00:00:00 [place] Me dical Preserv and ABX Branch Free 6 MO-64 YRS Influenza Virus 2022-07-28 Completed [facility] y of Vaccine Quad IM, 00:00:00 [place] Me [facility]ical Preserv and ABX Branch Free 6 MO-64 YRS Influenza Virus 2022-07-28 Completed [facility] of Vaccine Quad IM, 00:00:00 [place] [facility] Preserv and ABX Branch Free 6 MO-64 YRS (FLUCELVAX) SARS-COV-2 COVID-19 2021-06-04 Completed [facility] of VACCINE - (MODERNA) 00:00:00 [facility] SARS-COV-2 COVID-19 2021-06-04 Completed Unive rsity of VACCINE - (MODERNA) 00:00:00 [facility] SARS-COV-2 COVID-19 2021-06-04 Completed Unive rsity of VACCINE - (MODERNA) 00:00:00 [facility] SARS-COV-2 COVID-19 2021-06-04 Completed Unive rsity of VACCINE - (MODERNA) 00:00:00 [facility] SARS-COV-2 COVID-19 2021-06-04 Completed Unive rsity of VACCINE - (MODERNA) 00:00:00 [facility] SARS-COV-2 COVID-19 2021-06-04 Completed Unive rsity of VACCINE - (MODERNA) 00:00:00 [facility] SARS-COV-2 COVID-19 2021-06-04 Completed Unive rsity of VACCINE - (MODERNA) 00:00:00 [facility] SARS-COV-2 COVID-19 2021-06-04 Completed Unive rsity of VACCINE - (MODERNA) 00:00:00 [facility] SARS-COV-2 COVID-19 2021-06-04 Completed Unive rsity of VACCINE - (MODERNA) 00:00:00 [facility] SARS-COV-2 COVID-19 2021-06-04 Completed Unive rsity of VACCINE - (MODERNA) 00:00:00 [facility] SARS-COV-2 COVID-19 2021-06-04 Completed Unive rsity of VACCINE - (MODERNA) 00:00:00 [facility] SARS-COV-2 COVID-19 2021-06-04 Completed Unive rsity of VACCINE - (MODERNA) 00:00:00 [facility] SARS-COV-2 COVID-19 2021-06-04 Completed Unive rsity of VACCINE - (MODERNA) 00:00:00 [facility] SARS-COV-2 COVID-19 2021-06-04 Completed Unive rsity of VACCINE - (MODERNA) 00:00:00 [facility] SARS-COV-2 COVID-19 2021-06-04 Completed Unive rsity of VACCINE - (MODERNA) 00:00:00 [facility] SARS-COV-2 COVID-19 2021-06-04 Completed Unive rsity of VACCINE - (MODERNA) 00:00:00 [facility] SARS-COV-2 COVID-19 2021-06-04 Completed Unive rsity of VACCINE - (MODERNA) 00:00:00 [facility] SARS-COV-2 COVID-19 2021-06-04 Completed Unive rsity of VACCINE - (MODERNA) 00:00:00 [facility] SARS-COV-2 COVID-19 2021-06-04 Completed Unive rsity of VACCINE - (MODERNA) 00:00:00 [facility] SARS-COV-2 COVID-19 2021-06-04 Completed Unive rsity of VACCINE - (MODERNA) 00:00:00 [facility] SARS-COV-2 COVID-19 2021-06-04 Completed Unive rsity of VACCINE - (MODERNA) 00:00:00 [facility] SARS-COV-2 COVID-19 2021-06-04 Completed Unive rsity of VACCINE - (MODERNA) 00:00:00 [facility] SARS-COV-2 COVID-19 2021-06-04 Completed Unive rsity of VACCINE - (MODERNA) 00:00:00 [facility] SARS-COV-2 COVID-19 2021-06-04 Completed Unive rsity of VACCINE - (MODERNA) 00:00:00 [facility] SARS-COV-2 COVID-19 2021-06-04 Completed Unive rsity of VACCINE - (MODERNA) 00:00:00 [facility] SARS-COV-2 COVID-19 2021-06-04 Completed Unive rsity of VACCINE - (MODERNA) 00:00:00 [facility] SARS-COV-2 COVID-19 2021-06-04 Completed Unive rsity of VACCINE - (MODERNA) 00:00:00 [facility] SARS-COV-2 COVID-19 2021-06-04 Completed Unive rsity of VACCINE - (MODERNA) 00:00:00 [facility] SARS-COV-2 COVID-19 2021-06-04 Completed Unive rsity of VACCINE - (MODERNA) 00:00:00 [facility] SARS-COV-2 COVID-19 2021-06-04 Completed Unive rsity of VACCINE - (MODERNA) 00:00:00 [facility] SARS-COV-2 COVID-19 2021-06-04 Completed Unive rsity of VACCINE - (MODERNA) 00:00:00 [facility] SARS-COV-2 COVID-19 2021-06-04 Completed [facility]ive rsity of VACCINE - (MODERNA) 00:00:00 [facility] SARS-COV-2 COVID-19 2021-06-04 Completed Unive rsity of VACCINE - (MODERNA) 00:00:00 [facility] SARS-COV-2 COVID-19 2021-06-04 Completed Unive rsity of VACCINE - (MODERNA) 00:00:00 [facility] SARS-COV-2 COVID-19 2021-06-04 Completed Unive rsity of VACCINE - (MODERNA) 00:00:00 [facility] SARS-COV-2 COVID-19 2021-06-04 Completed Unive rsity of VACCINE - (MODERNA) 00:00:00 [facility] SARS-COV-2 COVID-19 2021-06-04 Completed Unive rsity of VACCINE - (MODERNA) 00:00:00 [facility] SARS-COV-2 COVID-19 2021-06-04 Completed Unive rsity of VACCINE - (MODERNA) 00:00:00 [facility] Influenza Virus Unknown Completed Universit y of Vaccine Quad IM, [facility] dical Preserv and ABX Branch Free 6 MO-64 YRS (FLUCELVAX) SARS-COV-2 COVID-19 Unknown Completed Unive rsity of VACCINE - (MODERNA) [facility] Influenza Virus Unknown Completed Universit y of Vaccine [facility] IM, [facility] dical Preserv and ABX Branch Free 6 MO-64 YRS (FLUCELVAX) SARS-COV-2 COVID-19 Unknown Completed Unive rsity of VACCINE - (MODERNA) [facility] Influenza Virus Unknown Completed Universit y of Vaccine [facility] IM, [facility] dical Preserv and ABX Branch Free 6 MO-64 YRS (FLUCELVAX) SARS-COV-2 COVID-19 Unknown Completed Unive rsity of VACCINE - (MODERNA) [facility] Influenza Virus Unknown Completed Universit y of Vaccine [facility] IM, [facility] dical Preserv and ABX Branch Free 6 MO-64 YRS (FLUCELVAX) SARS-COV-2 COVID-19 Unknown Completed Unive rsity of VACCINE - (MODERNA) [facility] Influenza Virus Unknown Completed Universit y of Vaccine [facility] IM, [facility] dical Preserv and ABX Branch Free 6 MO-64 YRS (FLUCELVAX) SARS-COV-2 COVID-19 Unknown Completed Unive rsity of VACCINE - (MODERNA) [facility] Influenza Virus Unknown Completed [facility] y of Vaccine [facility], [place] [facility] Preserv and ABX Branch Free 6 MO-64 YRS (FLUCELVAX) SARS-COV-2 COVID-19 Unknown Completed Unive rsity of VACCINE - (MODERNA) [facility] Influenza Virus Unknown Completed [facility]it y of Vaccine [facility], [place] [facility] Preserv and ABX Branch Free 6 MO-64 YRS (FLUCELVAX) SARS-COV-2 COVID-19 Unknown Completed Unive rsity of VACCINE - (MODERNA) [facility] Influenza Virus Unknown Completed [facility]it y of Vaccine [facility], [place] [facility] Preserv and ABX Branch Free 6 MO-64 YRS (FLUCELVAX) SARS-COV-2 COVID-19 Unknown Completed Unive rsity of VACCINE - (MODERNA) [facility] Influenza Virus Unknown Completed Universit y of Vaccine [facility] IM, [facility] dical Preserv and ABX Branch Free 6 MO-64 YRS (FLUCELVAX) SARS-COV-2 COVID-19 Unknown Completed Unive rsity of VACCINE - (MODERNA) [facility] Influenza Virus Unknown Completed Universit y of Vaccine [facility] IM, [facility] dical Preserv and ABX Branch Free 6 MO-64 YRS (FLUCELVAX) SARS-COV-2 COVID-19 Unknown Completed Unive rsity of VACCINE - (MODERNA) [facility] Influenza Virus Unknown Completed [facility]it y of Vaccine [facility], [place] [facility]ical Preserv and ABX Branch Free 6 MO-64 YRS (FLUCELVAX) SARS-COV-2 COVID-19 Unknown Completed Unive rsity of VACCINE - (MODERNA) [facility] Influenza Virus Unknown Completed Universit y of Vaccine [facility] IM, [place] [facility]ical Preserv and ABX Branch Free 6 MO-64 YRS (FLUCELVAX) SARS-COV-2 COVID-19 Unknown Completed Unive rsity of VACCINE - (MODERNA) [facility] Influenza Virus Unknown Completed Universit y of Vaccine [facility], [place] [facility]ical Preserv and ABX Branch Free 6 MO-64 YRS (FLUCELVAX) SARS-COV-2 COVID-19 Unknown Completed Unive rsity of VACCINE - (MODERNA) [facility] Influenza Virus Unknown Completed Universit y of Vaccine Quad IM, [facility] dical Preserv and ABX Branch Free 6 MO-64 YRS (FLUCELVAX) SARS-COV-2 COVID-19 Unknown Completed Unive rsity of VACCINE - (MODERNA) [facility] Influenza Virus Unknown Completed Universit y of Vaccine Quad IM, [facility] dical Preserv and ABX Branch Free 6 MO-64 YRS (FLUCELVAX) SARS-COV-2 COVID-19 Unknown Completed Unive rsity of VACCINE - (MODERNA) [facility] Influenza Virus Unknown Completed Universit y of Vaccine Quad IM, [facility] dical Preserv and ABX Branch Free 6 MO-64 YRS (FLUCELVAX) SARS-COV-2 COVID-19 Unknown Completed Unive rsity of VACCINE - (MODERNA) [facility] Influenza Virus Unknown Completed Universit y of Vaccine Quad IM, [facility] dical Preserv and ABX Branch Free 6 MO-64 YRS (FLUCELVAX) SARS-COV-2 COVID-19 Unknown Completed Unive rsity of VACCINE - (MODERNA) [facility] Influenza Virus Unknown Completed Universit y of Vaccine Quad IM, [facility] dical Preserv and ABX Branch Free 6 MO-64 YRS (FLUCELVAX) SARS-COV-2 COVID-19 Unknown Completed Unive rsity of VACCINE - (MODERNA) [facility] Influenza Virus Unknown Completed Universit y of Vaccine Quad IM, [facility] dical Preserv and ABX Branch Free 6 MO-64 YRS (FLUCELVAX) SARS-COV-2 COVID-19 Unknown Completed Unive rsity of VACCINE - (MODERNA) [facility] Influenza Virus Unknown Completed Universit y of Vaccine Quad IM, [facility] dical Preserv and ABX Branch Free 6 MO-64 YRS (FLUCELVAX) SARS-COV-2 COVID-19 Unknown Completed Unive rsity of VACCINE - (MODERNA) [facility] Vital Signs Vital Name Observation Time Observation Value Comments Source Systolic blood 2023-03-31 20:43:00 124 mm[Hg] Univer sity of pressure [facility] Diastolic blood 2023-03-31 20:43:00 80 mm[Hg] Unive rsity of pressure [facility] Heart rate 2023-03-31 20:43:00 91 /min [facility] Body temperature 2023-03-31 20:43:00 37.11 Sarah [facility] Body height 2023-03-31 20:43:00 154.9 cm [facility] [place] [facility] Body weight 2023-03-31 20:43:00 77.565 kg Universi ty of [facility] BMI 2023-03-31 20:43:00 32.31 kg/m2 Universi ty of [facility] Systolic blood 2023-03-03 15:47:00 109 mm[Hg] Univer sity of pressure [facility] Diastolic blood 2023-03-03 15:47:00 70 mm[Hg] Unive rsity of pressure [facility] Heart rate 2023-03-03 15:47:00 79 /min [facility] [place] [facility] Body height 2023-03-03 15:47:00 177.8 cm [facility] [place] [facility] Body weight 2023-03-03 15:47:00 77.111 kg Universi ty of [facility] BMI 2023-03-03 15:47:00 24.39 kg/m2 Universi ty of [facility] Oxygen saturation in 2023-03-03 15:47:00 98 /min University Arterial blood by [facility] Pulse oximetry Branch Systolic blood 2023-02-04 20:24:00 103 mm[Hg] Univer [facility]ity of pressure [facility] Diastolic blood 2023-02-04 20:24:00 72 mm[Hg] Unive rsity of pressure [facility] Heart rate 2023-02-04 20:24:00 82 /min Universi ty of [facility] Body temperature 2023-02-04 20:24:00 37.44 Sarah Univ ersity of [facility] Systolic blood 2023-01-04 16:50:00 99 mm[Hg] Univer sity of pressure [facility] Diastolic blood 2023-01-04 16:50:00 63 mm[Hg] Unive rsity of pressure [facility] Heart rate 2023-01-04 16:50:00 75 /min Universi ty of [facility] Respiratory rate 2023-01-04 16:50:00 18 /min Univ ersity of [facility] Body height 2023-01-04 16:50:00 154.9 cm [facility] Body weight 2023-01-04 16:50:00 78.699 kg [facility] BMI 2023-01-04 16:50:00 32.78 kg/m2 [facility] Oxygen saturation in 2023-01-04 16:50:00 97 /min [facility]terial blood by [place] [facility] Pulse oximetry [facility] Systolic blood 2022-12-23 16:56:00 106 mm[Hg] Univer sity of pressure [facility] Diastolic blood 2022-12-23 16:56:00 83 mm[Hg] Unive rsity of pressure [facility] Heart rate 2022-12-23 16:56:00 79 /min [facility] Body temperature 2022-12-23 16:56:00 36.39 Sarah [facility] Body height 2022-12-23 16:56:00 154.9 cm [facility] Body weight 2022-12-23 16:56:00 81.647 kg [facility] BMI 2022-12-23 16:56:00 34.01 kg/m2 [facility] Oxygen saturation in 2022-12-23 16:56:00 97 /min University of Arterial blood by [facility] rajendra Pulse oximetry Branch Systolic blood 2022-12-12 15:15:00 121 mm[Hg] Univer sity of pressure [facility] Diastolic blood 2022-12-12 15:15:00 72 mm[Hg] Unive rsity of pressure [facility] Heart rate 2022-12-12 15:15:00 79 /min [facility] Body temperature 2022-12-12 15:15:00 36.56 Sarah [facility] Respiratory rate 2022-12-12 15:15:00 16 /min [facility] Body height 2022-12-12 15:15:00 154.9 cm [facility] Body weight 2022-12-12 15:15:00 81.33 kg [facility] BMI 2022-12-12 15:15:00 33.88 kg/m2 [facility] Oxygen saturation in 2022-12-12 15:15:00 97 /min University of Arterial blood by [facility] Pulse oximetry Branch Systolic blood 2022-12-09 19:13:00 117 mm[Hg] Univer [facility]ity of pressure [facility] Diastolic blood 2022-12-09 19:13:00 77 mm[Hg] Unive rsity of pressure [facility] Heart rate 2022-12-09 19:13:00 84 /min [facility] Body temperature 2022-12-09 19:13:00 36.61 Sarah [facility] Body weight 2022-12-09 19:13:00 79.833 kg [facility] BMI 2022-12-09 19:13:00 33.25 kg/m2 Universi ty of [facility] Systolic blood 2022-09-28 16:07:00 149 mm[Hg] Univer [facility]ity of pressure [facility] Diastolic blood 2022-09-28 16:07:00 83 mm[Hg] Unive rsity of pressure [facility] Heart rate 2022-09-28 16:07:00 84 /min [facility] Body height 2022-09-28 16:07:00 154.9 cm [facility] Body weight 2022-09-28 16:07:00 80.015 kg [facility] BMI 2022-09-28 16:07:00 33.33 kg/m2 [facility] Systolic blood 2022-09-16 16:04:00 118 mm[Hg] Univer [facility]ity of pressure [facility] Diastolic blood 2022-09-16 16:04:00 72 mm[Hg] Unive rsity of pressure [facility] Heart rate 2022-09-16 16:04:00 62 /min [facility] Body temperature 2022-09-16 16:04:00 36.28 Sarah Univ ersity of [facility] Respiratory rate 2022-09-16 16:04:00 18 /min [facility] Body weight 2022-09-16 16:04:00 79.243 kg [facility] BMI 2022-09-16 16:04:00 33.01 kg/m2 Universi ty of [facility] Oxygen saturation in 2022-09-16 16:04:00 98 /min University of Arterial blood by [facility] Pulse oximetry Branch Systolic blood 2022-07-28 21:58:00 115 mm[Hg] Univer [facility]ity of pressure [facility] Diastolic blood 2022-07-28 21:58:00 75 mm[Hg] Unive rsity of pressure [facility] Heart rate 2022-07-28 21:58:00 58 /min [facility] Body height 2022-07-28 21:58:00 154.9 cm [facility] [place] [facility] Body weight 2022-07-28 21:58:00 76.204 kg [facility] BMI 2022-07-28 21:58:00 31.74 kg/m2 [facility] Systolic blood 2022-07-11 03:13:00 119 mm[Hg] Univer [facility]ity of pressure [facility] Diastolic blood 2022-07-11 03:13:00 74 mm[Hg] Unive rsity of pressure [facility] Heart rate 2022-07-11 03:13:00 69 /min [facility] Respiratory rate 2022-07-11 03:13:00 19 /min [facility] Oxygen saturation in 2022-07-11 03:13:00 100 /min University of Arterial blood by [facility] Pulse oximetry Branch Body temperature 2022-07-10 21:42:00 36.5 Sarah [facility] Body height 2022-07-10 21:42:00 154.9 cm [facility] Body weight 2022-07-10 21:42:00 73.483 kg [facility] BMI 2022-07-10 21:42:00 30.61 kg/m2 [facility] Systolic blood 2022-07-10 20:16:00 123 mm[Hg] Univer [facility]ity of pressure [facility] Diastolic blood 2022-07-10 20:16:00 81 mm[Hg] Unive rsity of pressure [facility] Heart rate 2022-07-10 20:16:00 62 /min [facility] Body temperature 2022-07-10 20:16:00 36.44 Sarah [facility] Respiratory rate 2022-07-10 20:16:00 17 /min [facility] Body weight 2022-07-10 20:16:00 73.511 kg [facility] BMI 2022-07-10 20:16:00 30.62 kg/m2 [facility] Oxygen saturation in 2022-07-10 20:16:00 100 /min University Arterial blood by [facility] Pulse oximetry Branch Systolic blood 2022-06-18 20:33:00 101 mm[Hg] Univer [facility]ity of [facility] Diastolic blood 2022-06-18 20:33:00 67 mm[Hg] Unive rsity of [facility] Heart rate 2022-06-18 20:33:00 88 /min [facility] Body temperature 2022-06-18 20:33:00 37.06 [facility] height 2022-03-25 10:00:00 61 [in_i] [facility] weight 2022-03-25 10:00:00 172 [lb_av] [facility] temperature 2022-03-25 10:00:00 98.1 [degF] [facility] bmi 2022-03-25 10:00:00 32.5 kg/m2 [facility] oximetry 2022-03-25 10:00:00 96 % [facility] respiratory rate 2022-03-25 10:00:00 16 /min [facility] blood pressure 2022-03-25 10:00:00 123 mm[Hg] [facility] - systolic [facility] blood pressure 2022-03-25 10:00:00 73 mm[Hg] [facility] - diastolic [facility] Systolic blood 2022-03-23 19:32:00 98 mm[Hg] Univer [facility]ity of [facility] Diastolic blood 2022-03-23 19:32:00 63 mm[Hg] Unive rsity of [facility] Heart rate 2022-03-23 19:32:00 78 /min [facility] Body weight 2022-03-23 19:32:00 80.423 kg [facility] BMI 2022-03-23 19:32:00 33.50 kg/m2 [facility] Oxygen saturation in 2022-03-23 19:32:00 95 /min University of Arterial blood by [facility] Pulse oximetry Branch Systolic blood 2022-03-11 21:08:00 111 mm[Hg] Univer sity of pressure [facility] Diastolic blood 2022-03-11 21:08:00 74 mm[Hg] Unive rsity of [facility] Heart rate 2022-03-11 21:08:00 84 /min [facility] Body height 2022-03-11 21:08:00 154.9 cm [facility] Body weight 2022-03-11 21:08:00 77.111 kg [facility] BMI 2022-03-11 21:08:00 32.12 kg/m2 [facility] Systolic blood 2022-01-26 18:50:00 100 mm[Hg] Univer sity of pressure [facility] Diastolic blood 2022-01-26 18:50:00 66 mm[Hg] Unive rsity of [facility] Heart rate 2022-01-26 18:49:00 91 /min [facility] Body height 2022-01-26 18:49:00 154.9 cm [facility] Body weight 2022-01-26 18:49:00 76.658 kg [facility] BMI 2022-01-26 18:49:00 31.93 kg/m2 [facility] Oxygen saturation in 2022-01-26 18:49:00 97 /min University of Arterial blood by [facility] Pulse oximetry Branch Procedures Procedure Date / Time Performing Clinician Source Performed XR SHOULDER <2 VW LEFT 2023-03-31 21:31:38 [facility] 2023-03-03 05:01:00 Doctor Unassigned, [facility] MEDICAL RELEASE/CLEARANCE 2023-01-21 05:01:00 Doctor Unassigned, [facility] FORMS [facility] MEDICATION CORRESPONDENCE 2023-01-11 05:01:00 Doctor Pierre [facility] HEPATITIS B SURFACE 2022-12-23 17:54:00 Sarah Stewart [facility] ANTIGEN [facility] HEPATITIS A VIRUS 2022-12-23 17:54:[address] [facility] ANTIBODY IGM [facility] HEPATITIS C VIRUS (HCV) 2022-12-23 17:54:00 Sarah [facility] Medical [facility] HIV 1/2 AG-AB WITH REFLEX 2022-12-23 17:54:00 Sarah Stewart [facility] COMP. METABOLIC PANEL 2022-12-23 17:54:00 Sarah Stewart [facility] ([id number]) [facility] SEDIMENTATION RATE 2022-12-23 17:52:00 Sarah Stewart [facility] CBC WITH DIFF 2022-12-23 17:52:00 Sarah Stewart [facility] GLYCOSYLATED HEMOGLOBIN 2022-12-23 17:52:00 Sarah Stewart [facility] (A1C) [facility] RHEUMATOID FACTOR 2022-12-23 17:50:00 Sarah Stewart [facility] ANTI-NUCLEAR ANTIBODY 2022-12-23 17:50:00 Sarah Stewart [facility] SCREEN [facility] INSURANCE CORRESPONDENCE 2022-10-13 05:01:00 Doctor Pierre [facility] SLEEP STUDY DATA REPORT 2022-09-28 05:01:00 Doctor Pierre U [facility] INSURANCE CORRESPONDENCE 2022-09-21 05:01:00 Doctor Pierre [facility] CT HEAD WO CONTRAST 2022-08-03 17:12:07 Ashleigh Lee [facility] ASSIGNMENT OF BENEFITS 2022-08-03 16:44:43 [facility] Ign[facility]ACC ([id number]), 6 2022-07-28 21:56:02 Ashleigh Lee [facility] MO-64 YRS, .5ML, IM, QUAD Medica l Branch (FLUCELVAX) SLEEP STUDY DATA REPORT 2022-07-23 06:01:00 Doctor Benson Pierre [facility] POCT GLUCOSE (AUTOMATED) 2022-07-11 03:13:00 Corey Lantigua [facility] LACTIC ACID WHOLE BLOOD 2022-07-11 03:03:00 Corey Lantigua [facility] CT ABDOMEN PELVIS W 2022-07-11 01:01:06 Corey Lantigua [facility] CONTRAST [facility] LACTIC ACID WHOLE BLOOD 2022-07-10 23:36:00 Corey Lantigua [facility] LIPASE 2022-07-10 23:31:00 Corey Lantigua [facility] TROPONIN I 2022-07-10 23:31:00 Corey Lantigua [facility] COMP. METABOLIC PANEL 2022-07-10 23:31:00 Corey Lantigua [facility] ([id number]) [facility] CBC WITH DIFF 2022-07-10 23:31:00 Corey Lantigua [facility] PROTHROMBIN TIME / INR 2022-07-10 23:31:00 Corey Lantigua [facility] ACTIVATED PARTIAL 2022-07-10 23:31:00 Corey Lantigua [facility] THRMPLAS MARISABEL [facility] URINALYSIS 2022-07-10 23:31:00 Grzegorz Corey [facility] N-TERMINAL PRO-BNP 2022-07-10 23:31:00 Corey Lantigua [facility] CONSENT/REFUSAL FOR 2022-07-10 21:33:49 Doctor Ignacio [facility] DIAGNOSIS AND TREATMENT [facility] INSURANCE CORRESPONDENCE 2022-07-02 06:01:00 Doctor Ignacio, [facility] EXTERNAL PROVIDER RECORDS 2022-06-24 06:01:00 Doctor Ignacio, [facility] DME/SUPPLY JUSTIFICATION 2022-06-17 06:01:00 Doctor Ignacio [facility] INSURANCE CORRESPONDENCE 2022-06-09 06:01:00 Doctor Unassigned, [facility] Name Medical [facility] INSURANCE CORRESPONDENCE 2022-05-06 06:01:00 Doctor Unassigned, [facility] Name [facility] INSURANCE CORRESPONDENCE 2022-04-17 05:01:00 Doctor Unassigned, [facility] Name [facility] EXTERNAL PROVIDER RECORDS 2022-03-10 05:01:00 Doctor Unassigned, [facility] Name [facility] POCT HEMOGLOBIN A1C TEST 2022-01-26 00:00:[address] [facility] Encounters Start End Encounter Admission Attending Care Care Encounter Source Date/Time Date/Time Type Type Clinicians Facility Department ID 2022-03-26 Outpatient Kohler, STLMLC STLMLC [id number] Common 14:10:01 Bhanu [id number] [facility] 2022-03-25 Outpatient Kohler, STLMLC STLMLC [id number] Common 10:07:01 Bhanu [id number] [facility] 2021-09-25 Outpatient Kohler, STLMLC STLMLC [id number] Common 14:10:00 Bhanu [id number] [facility] 2021-07-09 Outpatient Kohler, STLMLC STLMLC [id number] Common 13:53:25 Bhanu [id number] [facility] 2021-07-09 Outpatient Kohler, STLMLC STLMLC [id number] Common 13:15:22 Bhanu [id number] [facility] 2021-07-09 Outpatient Kohler, STLMLC STLMLC [id number] Common 13:09:01 Bhanu [id number] [facility] 2021-07-09 Outpatient Kohler, STLMLC STLMLC [id number] Common 13:07:45 Bhanu [id number] [facility] 2021-07-09 Outpatient Kohler, STLMLC STLMLC [id number] Common 13:07:26 Bhanu [id number] [facility] 2021-07-09 Outpatient Kohler, STLMLC STLMLC [id number] Common 12:57:00 Bhanu Beasley28 [facility] 2023-05-03 2023-05-03 Outpatient Gaurav ESCALERA [facility] [id number] Univers 14:00:00 14:00:00 JUAN CARLOS ity [facility] 2023-04-21 2023-04-21 [facility] 1.2.840.114 [id number] Univers 00:00:00 00:00:00 [facility] 350.1.13.10 it y of [place] 4.2.7.2.686 Cullen as NATALIO?BLEA [phone] [facility] [address] OFFICE [facility] 2023-04-13 2023-04-13 Telephone [facility] 1.2.840.114 [id number] Univers 00:00:00 00:00:00 [facility] 350.1.13.10 it y of [place] 4.2.7.2.686 Cullen as NATALIO?BLEA [id number] [address] OFFICE [facility] 2023-04-06 2023-04-06 [facility] 1.2.840.114 [id number] Univers 00:00:00 00:00:00 [facility] 350.1.13.10 it y of [place] 4.2.7.2.686 Cullen as NATALIO?BLEA [phone] [address] 2023-04-06 2023-04-06 [facility] 1.2.840.114 [id number] Univers 00:00:00 00:00:00 [facility] 350.1.13.10 it y of [place] 4.2.7.2.686 Cullen as NATALIO?BLEA [phone] [address] OFFICE [facility] 2023-04-06 2023-04-06 [facility] 1.2.840.114 [id number] Univers 00:00:00 00:00:00 Strahil T [place] 350.1.13.10 ity of [place].7.2.[place] [phone] Ca alvino [facility] 085 [facility] 2023-04-05 2023-04-05 Telephone [facility] 1.2.840.114 [id number] Univers 00:00:00 00:00:00 [facility] 350.1.13.10 it y of [place] 4.2.7.2.686 Cullen as NATALIO?BLEA [phone] Ca alvino CUEVAS [address] MEDICAL OFFICE BUILDING 2023 2023 Telephone [facility] 1.2.840.114 [id number] [facility] 00:00:00 00:00:00 [facility] 350.1.13.10 it y of [place] 4.2.7.2.686 Cullen as NATALIO?BLEA [phone] Ca alvino CUEVAS [address] [place] [address] MEDICAL OFFICE BUILDING 2023-03-31 2023-03-31 Outpatient R [facility] [id number] Univers 16:08:00 23:59:00 [facility] 2023-03-31 2023-03-31 [facility] 1.2.177.697 [id number] Univers 16:08:00 23:59:00 Encounter [facility] 350.1.13.10 ity of [place] 4.2.7.2.686 Cullen as NATALIO?BLEA [phone] Ca alvino CUEVAS [address] MEDICAL OFFICE [facility] 2023-03-31 2023-03-31 Office [facility] 1.2.840.114 [id number] Univers 15:30:00 16:05:33 Visit [facility] 350.1.13.10 it y of [place] 4.2.7.2.686 Cullen as NATALIO?BLEA [phone] Ca alvino CUEVAS [address] [place] [address] MEDICAL OFFICE [facility] 2023-03-30 2023-03-30 Outpatient R [facility] [id number] Univers 13:00:00 13:00:00 SOLANGE [facility] 2023-03-15 2023-03-15 [facility] 1.2.840.114 [id number] Univers 00:00:00 00:00:00 [facility] 350.1.13.10 it y of [place] 4.2.7.2.686 Cullen as NATALIO?BLEA [phone] Ca alvino CUEVAS [address] MEDICAL OFFICE BUILDING 2023-03-03 2023-03-03 Office Jur[facility]en [facility] 1.2.704.578 [id number] Univers 10:30:00 11:00:00 Visit Geni Skye AMOS 350.1.13.10 ity [facility] 4.2.[place] [phone] [facility] 085 [facility] 2023-03-03 2023-03-03 Outpatient R GENI BOLES [facility] [id number] Univers 10:30:00 10:30:00 GENI BOLES ity of [facility] 2023-03-03 2023-03-03 Telephone [facility] 1.2.840.114 [id number] Univers 00:00:00 00:00:00 Strashe Skye [place] 350.1.13.10 ity of [place] 4.2.7.2.686 [place] [phone] [address] 2023-03-03 2023-03-03 Telephone [facility] 1.2.342.921 [id number] Univers 00:00:00 00:00:00 Ashleigh HEALTH 350.1.13.10 it y of [facility] 4.2.7.2.686 Cullen as NATALIO?BLEA [phone] [facility] KEIKO 092 [facility] OFFICE [facility] 2023-03-03 2023-03-03 Orders Doctor EMMANUEL 1.2.840.114 [id number] Univers 00:00:00 00:00:00 Only Unassigned, SUSAN 350.1.13.10 ity of [place] [facility] 4.2.7.2.686 Cullen as [phone] [address] 2023-02-25 2023-02-25 Refill Lali [facility] 1.2.840.114 [id number] Univers 00:00:00 00:00:00 Juan Carlos HEALTH 350.1.13.10 it y of [place] [facility] 4.2.7.2.686 Cullen as NATALIO?BLEA [phone] [facility] KEIKO [address] MEDICAL OFFICE [facility] 2023-02-16 2023-02-16 Outpatient R ELVI GENI [facility] [id number] Univers 20:00:00 20:00:00 [facility]23-[facility]-08 2023-02-08 Refill [facility] 1.2.840.114 [id number] Univers 00:00:00 00:00:00 Juan Carlos HEALTH 350.1.13.10 it y of [place] 4.2.7.2.686 Cullen as NATALIO?BLEA [phone] [address] OFFICE [facility] 2023-02-04 2023-02-04 Office [facility] 1.2.840.114 [id number] Univers 15:15:00 15:30:00 Visit [facility] 350.1.13.10 it y of [place] 4.2.7.2.686 Cullen as NATALIO?BLEA [phone] [address] OFFICE [facility] 2023-02-04 2023-02-04 Outpatient R [facility] [id number] Univers 15:15:00 15:15:00 [facility] 2023-01-21 2023-01-21 Orders Doctor EMMANUEL 1.2.840.114 [id number] Univers 00:00:00 00:00:00 Only Unassigned, SUSAN 350.1.13.10 ity of [place] [facility] 4.2.7.2.686 Cullen as [phone] [address] 2023-01-20 2023-01-20 Telephone [facility] 1.2.840.114 [id number] Univers 00:00:00 00:00:00 [facility] 350.1.13.10 it y of [place] 4.2.7.2.686 Cullen as NATALIO?BLEA [phone] [address] OFFICE [facility] 2023-01-11 2023-01-11 Orders Doctor EMMANUEL 1.2.840.114 [id number] Univers 00:00:00 00:00:00 Only Unassigned, SUSAN 350.1.13.10 ity of [place] HOSPITAL 4.2.7.2.686 Cullen as [phone] [address] 2023-01-04 2023-01-04 Outpatient R ROSA [facility] [id number] Univers 11:30:00 12:26:56 ASHLEIGH green [facility] 2023-01-04 2023-01-04 Office [facility] 1.2.840.114 [id number] Univers 11:30:00 12:26:56 Visit Ashleigh [employer] 350.1.13.10 it y of [place] 4.2.7.2.686 Cullen as NATALIO?BLEA [phone] [facility] [address] MEDICAL OFFICE [facility] 2022-12-28 2022-12-28 Outpatient R ROSA [facility] [id number] Univers 11:00:00 11:00:00 [facility]22-12-24 2022-12-24 [facility] 1.2.840.114 [id number] Univers 00:00:00 00:00:00 Sarah A HEALTH 350.1.13.10 i ty of [place] 4.2.7.2.686 Cullen as NATALIO?BLEA [phone] [facility] 044 [facility] OFFICE [facility] 2022-12-23 2022-12-23 Outpatient R DILLON [facility] [id number] Univers 11:30:00 13:08:19 [facility] 2022-12-23 2022-12-23 Office [facility] 1.2.840.114 [id number] Univers 11:30:00 13:08:19 Visit Sarah Olson HEALTH 350.1.13.10 i ty of [place] 4.2.7.2.686 Cullen as NATALIO?BLEA [phone] [address] OFFICE [facility] 2022-12-23 2022-12-23 Rare/Endangered Species Specialist Lab, Ang - Arslan [facility] 1.2.840.1 14 [id number] Univers 12:30:00 13:08:06 Visit Dillon Sarah A HEALTH 350.1.13.10 ity of [place] 4.2.7.2.686 Cullen as NATALIO?BLEA [phone] Me dical MASON [address] MEDICAL OFFICE BUILDING 2022-12-23 2022-12-23 Telephone Chelsie Wall [facility] 1.2.840.114 [id number] Univers 00:00:00 00:00:00 HEALTH 350.1.13.10 it y of [place].2.[place] [facility] - [phone] [facility] [address] 2022-12-23 2022-12-23 [facility] 1.2.840.114 [id number] Univers 00:00:00 00:00:00 [facility] 350.1.13.10 it y of [place] 4.2.7.2.686 Cullen as NATALIO?BLEA [id number] Ca dictawana CUEVAS 044 [facility] OFFICE [facility] 2022-12-17 2022-12-17 [facility] 1.2.840.114 [id number] Univers 00:00:00 00:00:00 Juan Carlos [place] 350.1.13.10 i ty of [place]2.7.2.[place] [phone] Ca alvino NAL 044 [facility] 2022-12-16 2022-12-16 Telephone [facility] 1.2.840.114 [id number] Univers 00:00:00 00:00:00 [facility] 350.1.13.10 it y of [place] 4.2.7.2.686 Cullen as NATALIO?BLEA [phone] Ca dical MASON [address] MEDICAL OFFICE [facility] 2022-12-16 2022-12-16 Patient Doctor [facility] 1.2.840.114 [id number] Univers 00:00:00 00:00:00 Secure Msg Unassigned, HEALTH 350.1.13.10 ity of [place] AMOS 4.2.7.2.686 Cullen as NATALIO?BLEA [phone] Ca dical MASON [address] MEDICAL OFFICE [facility] 2022-12-12 2022-12-12 Outpatient Gaurav STOLL [facility] [id number] Univers 10:00:00 10:31:29 REJI green [facility] 2022-12-12 2022-12-12 Urgent Reji Stoll [facility] 1.2.840.11 [id number] Univers 10:00:00 10:31:29 Care Unknown, [facility] 350.1.13.10 ity of [place] 4.2.7.2.686 Cullen as NATALIO?BLEA [phone] [facility] KEIKO [address] MEDICAL OFFICE BUILDING 2022-12-11 2022-12-11 Telephone [facility] 1.2.840.114 [id number] [facility] 00:00:00 00:00:00 [facility] 350.1.13.10 it y of [place] 4.2.7.2.686 Cullen as NATALIO?BLEA [id number] [address] OFFICE [facility] 2022-12-09 2022-12-09 Office [facility] 1.2.840.114 [id number] [facility] 14:15:00 14:30:00 Visit [facility] 350.1.13.10 it y of [place] 4.2.7.2.686 Cullen as NATALIO?BLEA [phone] [address] OFFICE [facility] 2022-12-09 2022-12-09 [facility] [id number] [facility] 14:15:00 14:15:00 [facility] 2022-12-09 2022-12-09 Telephone [facility] 1.2.840.114 [id number] Univers 00:00:00 00:00:00 [facility] 350.1.13.10 it y of [place] 4.2.7.2.686 Cullen as NATALIO?BLEA [phone] [address] MEDICAL OFFICE BUILDING 2022-12-09 2022-12-09 Refill [facility] 1.2.840.114 [id number] [facility] 00:00:00 00:00:00 [facility] 350.1.13.10 it y of [place] 4.2.7.2.686 Cullen as NATALIO?BLEA [phone] [address] MEDICAL OFFICE BUILDING 2022-12-04 2022-12-04 Telephone [facility] 1.2.840.114 [id number] Univers 00:00:00 00:00:00 Juan Carlos HEALTH 350.1.13.10 it y of [place] 4.2.7.2.686 Cullen as NATALIO?BLEA [phone] Ca alvino CUEVAS [address] [place] [address] OFFICE [facility] 2022-12-01 2022-12-01 [facility] 1.2.840.114 [id number] Univers 00:00:00 00:00:00 [facility] HEALTH 350.1.13.10 it y of [place] 4.2.7.2.686 Cullen as NATALIO?BLEA [phone] [facility] ADEN[address] OFFICE [facility] 2022-11-30 2022-11-30 [facility] Ileana Pandey [facility] 1.2.840.114 [id number] Univers 00:00:00 00:00:00 HEALTH 350.1.13.10 it y of [place] 4.2.7.2.686 Cullen as NATALIO?BLEA [id number] Ca alvino CUEVAS 220 [facility] OFFICE [facility] 2022-11-30 2022-11-30 [facility] 1.2.840.114 [id number] Univers 00:00:00 00:00:00 [facility] HEALTH 350.1.13.10 it y of [place] 4.2.7.2.686 Cullen as NATALIO?BLEA [phone] Ca alvino CUEVAS [address] [place] [address] OFFICE [facility] 2022-11-13 2022-11-13 [facility] 1.2.840.114 [id number] Univers 00:00:00 00:00:00 [facility] HEALTH 350.1.13.10 it y of [place] 4.2.7.2.686 Cullen as NATALIO?BLEA [phone] Ca alvino CUEVAS [address] [place] [address] OFFICE [facility] 2022-11-02 2022-11-02 [facility] 1.2.840.114 [id number] Univers 00:00:00 00:00:00 [facility] HEALTH 350.1.13.10 it y of [place] 4.2.7.2.686 Cullen as NATALIO?BLEA [phone] [address] MEDICAL OFFICE [facility] 2022-10-28 2022-10-28 [facility] 1.2.840.114 [id number] Univers 00:00:00 00:00:00 [facility] 350.1.13.10 it y of [place] 4.2.7.2.686 Cullen as NATALIO?BLEA [phone] [address] MEDICAL OFFICE [facility] 2022-10-13 2022-10-13 Orders Doctor EMMANUEL 1.2.840.114 [id number] Univers 00:00:00 00:00:00 Only Unassigned, SUSAN 350.1.13.10 ity of [place] [facility] 4.2.7.2.686 Cullen as [phone] [address] 2022-10-06 2022-10-06 [facility] 1.2.840.114 [id number] Univers 00:00:00 00:00:00 [facility] HEALTH 350.1.13.10 it y of [place] 4.2.7.2.686 Cullen as NATALIO?BLEA [phone] [address] OFFICE [facility] 2022-10-05 2022-10-05 [facility] 1.2.840.114 [id number] Univers 00:00:00 00:00:00 [facility] 350.1.13.10 it y of [place] 4.2.7.2.686 Cullen as NATALIO?BLEA [phone] [address] OFFICE [facility] 2022-10-05 2022-10-05 [facility] 1.2.840.114 [id number] Univers 00:00:00 00:00:00 Juan Carlos HEALTH 350.1.13.10 it y of [place] 4.2.7.2.686 Cullen as NATALIO?BLEA [phone] [address] MEDICAL OFFICE [facility] 2022-09-28 2022-09-28 Rare/Endangered Species Specialist 1, [facility] Sleep Lab Bed [facility] 1. 2.840.114 [id number] Univers 20:00:00 22:30:00 Visit Merari Bolesshe Skye SNIDERANKIT 350.1.13. 10 ity [facility] 4.2.7.2.[place] [id number] [address] 2022-09-28 2022-09-28 Outpatient R JURGENMERARI TAMEZSHE [facility] [id number] Univers 20:00:00 20:00:00 MARYANNE BOLESL itnayla [facility] 2022-09-28 2022-09-28 Office [facility] 1.2.840.114 [id number] Univers 11:00:00 11:38:24 Visit [facility] 350.1.13.10 it y of [place] 4.2.7.2.686 Cullen as NATALIO?BLEA [phone] Ca jorgito[address] OFFICE [facility] 2022-09-28 2022-09-28 Orders Doctor EMMANUEL 1.2.840.114 [id number] Univers 00:00:00 00:00:00 Only Unassigned, SUSAN 350.1.13.10 ity of [place] [facility] 4.2.7.2.686 Cullen as [phone] [address] 2022-09-21 2022-09-21 Orders Doctor EMMANUEL 1.2.840.114 [id number] Univers 00:00:00 00:00:00 Only Unassigned, SUSAN 350.1.13.10 ity of [place] [facility]OSPITAL 4.2.7.2.686 Cullen as [phone] [address] 2022-09-16 2022-09-16 Outpatient R ELVI GENI [facility] [id number] Univers 10:30:00 11:29:56 JURGENDARIELLUCIAMARYANNEL itnayla [facility] 2022-09-16 2022-09-16 Office [facility] 1.2.796.131 [id number] Univers 10:30:00 11:00:00 Visit Geni SNIDERANKIT 350.1.13.10 ity [facility] 4.2.7.2.[place] [facility] [phone] Ca [facility] 085 [facility] 2022-09-15 2022-09-15 [facility] 1.2.840.114 [id number] Univers 00:00:00 00:00:00 [facility] 350.1.13.10 it y of [place] 4.2.7.2.686 Cullen as NATALIO?BLEA [phone] Ca dictawana [address] MEDICAL OFFICE [facility] 2022-09-09 2022-09-09 Telephone EMMANUEL Fregoso 1.2.549.077 [id number] Univers 00:00:00 00:00:00 Yadira DAVIS 350.1.13.10 ity of [facility] 4.2.7.2.686 [place]ullen as [phone] [address] 2022-09-07 2022-09-07 [facility] 1.2.840.114 [id number] Univers 00:00:00 00:00:00 [facility] 350.1.13.10 it y of [place] 4.2.7.2.686 Cullen as NATALIO?BLEA [phone] Ca dictawana [address] OFFICE [facility] 2022-09-01 2022-09-01 [facility] 1.2.840.114 [id number] Univers 00:00:00 00:00:00 [facility] 350.1.13.10 it y of [place] 4.2.7.2.686 Cullen as NATALIO?BLEA [phone] Ca dictawana [address] OFFICE [facility] 2022-08-25 2022-08-25 Outpatient R ROSA [facility] [id number] Univers 13:00:00 13:00:00 ASHLEIGH green of [facility] 2022-08-12 2022-08-12 Patient Doctor [facility] 1.2.840.114 [id number] Univers 00:00:00 00:00:00 Secure Msg Unassigned, HEALTH 350.1.13.10 ity of [place] 4.2.7.2.686 Cullen as NATALIO?BLEA [id number] Ca dictawana CUEVAS [address] MEDICAL OFFICE [facility] 2022-08-11 2022-08-11 Refjudy [facility] 1.2.840.114 [id number] Univers 00:00:00 00:00:00 Juan Carlos HEALTH 350.1.13.10 it y of [place] 4.2.7.2.686 Cullen as NATALIO?BLEA [phone] Ca alvino CUEVAS [address] MEDICAL OFFICE [facility] 2022-08-10 2022-08-10 Telephone [facility] 1.2.320.635 [id number] Univers 00:00:00 00:00:00 Ashleigh HEALTH 350.1.13.10 it y of [place] 4.2.7.2.686 Cullen as NATALIO?BLEA [id number] Ca alvino CUEVAS 092 [facility] 2022-08-03 2022-08-03 Outpatient R [facility] [id number] Univers 10:51:40 23:59:00 ASHLEIGH ity of [facility] 2022-08-03 2022-08-03 Hospital [facility] 1.2.840.114 [id number] Univers 10:50:00 23:59:00 Encounter Ashleigh [place] 350.1.13.10 ity of [place] 4.2.7.2.686 [place] [phone] [facility] [address] 2022-08-03 2022-08-03 Orders Doctor EMMANUEL 1.2.840.114 [id number] Univers 00:00:00 00:00:00 Only Unassigned, SUSAN 350.1.13.10 ity of [place] [facility] 4.2.7.2.686 Cullen as [phone] [facility] [address] 2022-08-03 2022-08-03 [facility] 1.2.840.114 [id number] Univers 00:00:00 00:00:00 Juan Carlos DRIVER 350.1.13.10 it y of [place] 4.2.7.2.686 Cullen as NATALIO?BLEA [phone] Ca alvino CUEVAS [address] MEDICAL OFFICE [facility] 2022-07-30 2022-07-30 Patient Doctor KSJB 1.2.840.114 [id number] Univers 00:00:00 00:00:00 Secure Msg Unassigned, HEALTH 350.1.13.10 ity of [place] [facility] 4.2.7.2.686 Cullen as NATALIO?BLEA [phone] [address] OFFICE [facility] 2022-07-30 2022-07-30 Patient Doctor EMMANUEL 1.2.840.114 [id number] Univers 00:00:00 00:00:00 Secure Msg Unassigned, SUSAN 350.1.13.10 ity of [place] [facility] 4.2.7.2.686 Cullen as [phone] [address] 2022-07-29 2022-07-29 Telephone [facility] 1.2.742.206 [id number] [facility] 00:00:00 00:00:00 Sarah A HEALTH 350.1.13.10 i ty of [place] 4.2.7.2.686 Cullen as NATALIO?BLEA [phone] [address] OFFICE [facility] 2022-07-29 2022-07-29 Telephone [facility] 1.2.840.114 [id number] Univers 00:00:00 00:00:00 Juan Carlos HEALTH 350.1.13.10 it y of [place] 4.2.7.2.686 Cullen as NATALIO?BLEA [phone] [address] OFFICE [facility] 2022-07-28 2022-07-28 Outpatient R ROSA [facility] [id number] Univers 14:30:00 15:25:25 ASHLEIGH ity [facility] 2022-07-28 2022-07-28 Office [facility] 1.2.840.114 [id number] Univers 14:30:00 15:25:25 Visit Ashleigh HEALTH 350.1.13.10 it y of [facility] 4.2.7.2.686 Cullen as NATALIO?BLEA [id number] [facility]92 [facility] OFFICE [facility] 2022-07-23 2022-07-23 Rare/Endangered Species Specialist Reese Mayes Sleep Lab [facility] 1.2 .840.114 [id number] Univers 10:00:00 10:15:00 Visit Geni Boles [facility] 350.1.13. 10 ity [facility] 4.2.7.2.686 [place] [facility] [phone] [facility] [address] 2022-07-23 2022-07-23 Outpatient R MERARI BOLESILPeggy [facility] [id number] Univers 10:00:00 10:00:00 GENI BOLES itnayla [facility] 2022-07-23 2022-07-23 Letter Doctor EMMANUEL 1.2.840.114 [id number] Univers 00:00:00 00:00:00 (Out) Unassigned, SUSAN 350.1.13.10 ity of [place] [facility] 4.2.7.2.686 [place] as [phone] [facility] [address] 2022-07-23 2022-07-23 Orders Doctor EMMANUEL 1.2.840.114 [id number] Univers 00:00:00 00:00:00 Only Unassigned, SUSAN 350.1.13.10 it[place] of [place] [facility] 4.2.7.2.686 [place] as [phone] [facility] [address] 2022-07-17 2022-07-17 [facility] [id number] Univers 11:00:00 11:00:00 ASHLEIGH [facility] 2022-07-16 2022-07-16 [facility]phone [facility] [id number] [id number] Univers 00:00:00 00:00:00 Sarah A HEALTH 350.1.13.10 i ty of [place] 4.2.7.2.686 Cullen as NATALIO?BLEA [phone] [address] MEDICAL OFFICE [facility] 2022-07-15 2022-07-15 [facility]phone [facility] 1.2.840.114 [id number] Univers 00:00:00 00:00:00 Juan Carlos HEALTH 350.1.13.10 it y of [place] [facility] 4.2.7.2.686 [place] as NATALIO?BLEA [phone] [address] MEDICAL OFFICE [facility] 2022-07-14 2022-07-14 Outpatient R MERARI BOLESILPeggy [facility] [id number] Univers 12:00:00 12:00:00 ELVI GENI ity [facility] 2022-07-10 2022-07-10 Emergency Corey Lantigua [facility] 1.2.840. 114 [id number] Univers 15:43:00 22:03:00 [facility] 350.1.13.10 [place] 4[place]7.2.[place] [phone] [facility] [address] 2022-07-10 2022-07-10 [facility] [id number] Univers 14:00:00 15:04:08 SARAH norma [facility] 2022-07-10 2022-07-10 [facility] [id number] Univers 14:00:00 15:04:08 SARAH norma [facility] 2022-07-10 2022-07-10 Office [facility] 1.2.840.114 [id number] Univers 14:00:00 15:04:08 [facility] Center 350.1.13.10 i ty of [place] 4.2.7.2.686 Cullen as NATAILO?BLEA [phone] [address] MEDICAL OFFICE BUILDING 2022-07-06 2022-07-06 Telephone [facility] 1.2.840.114 [id number] Univers 00:00:00 00:00:00 [facility] 350.1.13.10 it y of [place]ancoise [place] 4.2.7.2.686 Cullen as NATALIO?BLEA [phone] [address] MEDICAL OFFICE BUILDING 2022-07-02 2022-07-02 Orders Doctor EMMANUEL 1.2.840.114 [id number] Univers 00:00:00 00:00:00 Only Unassigned, SSUAN 350.1.13.10 ity of [place] [facility] 4.2.7.2.686 Cullen as [id number] [facility] [address] 2022-07-01 2022-07-01 Outpatient R ILEANA PANDEY [facility] [id number] Univers 10:00:00 10:00:00 ILEANA PANDEY ity of [facility] 2022-06-30 2022-06-30 Refill [facility] 1.2.840.114 [id number] Univers 00:00:00 00:00:00 [facility] 350.1.13.10 it y of [place] 4.2.7.2.686 Cullen as NATALIO?BLEA [id number] [address] OFFICE [facility] 2022-06-24 2022-06-24 Orders Doctor EMMANUEL 1.2.840.114 [id number] Univers 00:00:00 00:00:00 Only Unassigned, SUSAN 350.1.13.10 ity of [place] [facility] 4.2.7.2.686 Cullen as [phone] [address] 2022-06-24 2022-06-24 Telephone [facility] 1.2.840.114 [id number] Univers 00:00:00 00:00:00 [facility] 350.1.13.10 it y of [place] 4.2.7.2.686 Cullen as NATALIO?BLEA [id number] [address] OFFICE [facility] 2022-06-22 2022-06-22 Telephone [facility] 1.2.840.114 [id number] Univers 00:00:00 00:00:00 [facility] 350.1.13.10 it y of [place] 4.2.7.2.686 Cullen as NATALIO?BLEA [phone] [address] OFFICE [facility] 2022-06-18 2022-06-18 Outpatient R [facility] [id number] Univers 14:30:00 15:11:40 [facility] 2022-06-18 2022-06-18 Office [facility] 1.2.840.114 [id number] Univers 14:30:00 15:00:00 Visit [facility] 350.1.13.10 it y of [place] 4.2.7.2.686 Cullen as NATALIO?BLEA [phone] [address] OFFICE [facility] 2022-06-17 2022-06-17 Orders Doctor EMMANUEL 1.2.840.114 [id number] Univers 00:00:00 00:00:00 Only Unassigned, SUSAN 350.1.13.10 ity of [place] [facility] 4.2.7.2.686 Cullen as [phone] [address] 2022-06-17 2022-06-17 Telephone [facility] 1.2.840.114 [id number] Univers 00:00:00 00:00:00 Juan Carlos HEALTH 350.1.13.10 it y of [place] 4.2.7.2.686 Cullen as NATALIO?BLEA [id number] [address] OFFICE [facility] 2022-06-11 2022-06-11 Telephone [facility] 1.2.840.114 [id number] Univers 00:00:00 00:00:00 Juan Carlos HEALTH 350.1.13.10 it y of [place] 4.2.7.2.686 Cullen as NATALIO?BLEA [id number] [address] OFFICE [facility] 2022-06-10 2022-06-10 [facility] 1.2.840.114 [id number] Univers 00:00:00 00:00:00 Juan Carlos HEALTH 350.1.13.10 it y of [place] 4.2.7.2.686 Cullen as NATALIO?BLEA [id number] [address] 2022-06-09 2022-06-09 Orders Doctor EMMANUEL 1.2.840.114 [id number] Univers 00:00:00 00:00:00 Only Unassigned, SUSAN 350.1.13.10 ity of [place] [facility] 4.2.7.2.686 Cullen as [id number] [address] 2022-06-04 2022-06-04 Refill [facility] 1.2.840.114 [id number] Univers 00:00:00 00:00:00 Juan Carlos HEALTH 350.1.13.10 it y of [place] 4.2.7.2.686 Cullen as NATALIO?BLEA [id number] [address] MEDICAL OFFICE [facility] 2022-05-19 2022-05-19 Telephone [facility] 1.2.840.114 [id number] Univers 00:00:00 00:00:00 Juan Carlos HEALTH 350.1.13.10 it y of [place] 4.2.7.2.686 Cullen as NATALIO?BLEA [id number] [address] OFFICE [facility] 2022-05-13 2022-05-13 Telephone [facility] 1.2.840.114 [id number] Univers 00:00:00 00:00:00 Juan Carlos HEALTH 350.1.13.10 it y of [place] 4.2.7.2.686 Cullen as NATALIO?BLEA [id number] [address] OFFICE [facility] 2022-05-08 2022-05-08 Telephone [facility] 1.2.840.114 [id number] Univers 00:00:00 00:00:00 [facility] 350.1.13.10 it y of [place] 4.2.7.2.686 Cullen as NATALIO?BLEA [phone] [address] OFFICE [facility] 2022-05-06 2022-05-06 Telephone [facility] 1.2.840.114 [id number] Univers 00:00:00 00:00:00 Juan Carlos HEALTH 350.1.13.10 it y of [place] 4.2.7.2.686 Cullen as NATALIO?BLEA [id number] [address] OFFICE [facility] 2022-05-06 2022-05-06 Orders Doctor EMMANUEL 1.2.840.114 [id number] Univers 00:00:00 00:00:00 Only Unassigned, SUSAN 350.1.13.10 ity of [place] [facility] 4.2.7.2.686 Cullen as [phone] [address] 2022-04-27 2022-04-27 [facility] [id number] Univers 16:00:00 16:00:00 JUAN CARLOS ity [facility] 2022-04-27 2022-04-27 Telephone [facility] 1.2.840.114 [id number] Univers 00:00:00 00:00:00 Juan Carlos HEALTH 350.1.13.10 it y of [place] 4.2.7.2.686 Cullen as NATALIO?BLEA [id number] [address] MEDICAL OFFICE [facility] 2022-04-21 2022-04-21 Telephone Ileana Pandey [facility] 1.2.564.141 [id number] Univers 00:00:00 00:00:00 HEALTH 350.1.13.10 it y of [place] 4.2.7.2.686 Cullen as NATALIO?BLEA [phone] [facility] KEIKO [address] [facility] OFFICE [facility] 2022-04-17 2022-04-17 Orders Doctor EMMANUEL 1.2.840.114 [id number] Univers 00:00:00 00:00:00 Only Unassigned, SUSAN 350.1.13.10 ity of [place] [facility] 4.2.7.2.686 Cullen as [phone] [address] 2022-04-16 2022-04-16 Outpatient R [facility] [id number] Univers 10:00:00 10:00:00 JUAN CARLOS ity [facility] 2022-04-16 2022-04-16 Telephone [facility] 1.2.840.114 [id number] Univers 00:00:00 00:00:00 Juan Carlos HEALTH 350.1.13.10 it y of [place] 4.2.7.2.686 Cullen as NATALIO?BLEA [id number] [address] OFFICE [facility] 2022-04-10 2022-04-10 Telephone [facility] 1.2.840.114 [id number] Univers 00:00:00 00:00:00 Juan Carlos HEALTH 350.1.13.10 it y of [place] 4.2.7.2.686 Cullen as NATALIO?BLEA [phone] [address] OFFICE [facility] 2022-04-01 2022-04-01 Telephone Katherin [facility] 1.2.403.280 [id number] Univers 00:00:00 00:00:00 PRIMARY 350.1.13.10 it y of [place] 4.2.7.2.686 [place] RIVAS [phone] [facility] [address] [place] [address] 2022-03-26 2022-03-26 (TEL) STLMLC STLMLC [id number] Co mmon 00:00:00 00:00:00 Spirit - [facility] 2022-03-25 2022-03-25 OFFICE STLMLC STLMLC [id number] Co mmon 00:00:00 00:00:00 VISIT EST Spir it PT LEVEL 3 - [facility] 2022-03-23 2022-03-23 Rare/Endangered Species Specialist Lab, Haim - [facility] 1.2.840.1 14 [id number] Univers 15:30:00 15:45:00 Visit Ileana Pandey [facility] 350.1.13.10 it y of [place] 4.2.7.2.686 Cullen as NATALIO?BLEA [phone] [facility] [address] MEDICAL OFFICE [facility] 2022-03-23 2022-03-23 Outpatient R KATHERIN, TEJEDA [facility] [id number] Univers 14:30:00 15:30:56 ILEANA PANDEY norma [facility] 2022-03-23 2022-03-23 Office Katherin [facility] 1.2.840.114 [id number] Univers 14:30:00 15:30:56 Visit HEALTH 350.1.13.10 it y of [place] 4.2.7.2.686 Cullen as NATALIO?BLEA [id number] Ca alvino [facility] [address] MEDICAL OFFICE [facility] 2022-03-19 2022-03-19 Telephone [facility] 1.2.840.114 [id number] Univers 00:00:00 00:00:00 Juan Carlos HEALTH 350.1.13.10 it y of [place] 4.2.7.2.686 Cullen as NATALIO?BLEA [phone] Ca alvino ADEN [address] MEDICAL OFFICE BUILDING 2022-03-17 2022-03-17 Refill [facility] 1.2.840.114 [id number] Univers 00:00:00 00:00:00 [facility] 350.1.13.10 it y of [place] 4.2.7.2.686 Cullen as NATALIO?BLEA [phone] [address] MEDICAL OFFICE [facility] 2022-03-11 2022-03-11 Office [facility] 1.2.840.114 [id number] Univers 16:00:00 16:15:00 Visit [facility] 350.1.13.10 it y of [place] 4.2.7.2.686 Cullen as NATALIO?BLEA [id number] [address] MEDICAL OFFICE BUILDING 2022-03-11 2022-03-11 Outpatient R [facility] [id number] [facility] 16:00:00 16:00:00 JUAN CARLOS ity of [facility] 2022-03-10 2022-03-10 Orders Doctor EMMANUEL 1.2.840.114 [id number] Univers 00:00:00 00:00:00 Only Unassigned, SUSAN 350.1.13.10 ity of [place] [facility] 4.2.7.2.686 Cullen as [phone] [address] 2022-02-18 2022-02-18 Telephone [facility] 1.2.840.114 [id number] Univers 00:00:00 00:00:00 [facility] 350.1.13.10 it y of [place] 4.2.7.2.686 Cullen as NATALIO?BLEA [id number] [address] OFFICE [facility] 2022-02-18 2022-02-18 Telephone [facility] 1.2.840.114 [id number] Univers 00:00:00 00:00:00 [facility] 350.1.13.10 it y of [place] 4.2.7.2.686 Cullen as NATALIO?BLEA [id number] [address] OFFICE [facility] 2022-01-26 2022-01-26 Office [facility] 1.2.840.114 [id number] Univers 14:00:00 14:15:00 Visit [facility] 350.1.13.10 it y of [place] 4.2.7.2.686 Cullen as NATALIO?BLEA [phone] Ca alvino CUEVAS [address] MEDICAL OFFICE [facility] 2022-01-26 2022-01-26 Outpatient R NAVYAHARRISONMANDY [facility] [id number] Univers 14:00:00 14:00:00 JUAN CARLOS ity [facility] 2022-01-26 2022-01-26 Outpatient R ADILIAMANDY [facility] [id number] Univers 14:00:00 14:00:00 JUAN CARLOS y [facility] 2022-01-26 2022-01-26 Outpatient R ADILIAMANDY [facility] [id number] Univers 13:15:00 13:15:00 JUAN CARLOS [facility] 2021-12-31 2021-12-31 [facility] 1.2.840.114 [id number] Univers 00:00:00 00:00:00 Management Maddie [place] 350.1.13.10 ity [facility] [place].2.7.2.[place] [phone] Ca alvino JENKINS [address] [place] [address] 2021-12-30 2021-12-30 [facility] 1.2.840.114 [id number] Univers 00:00:00 00:00:00 Management [facility] 350.1.13.10 ity of [place] 4.2.7.2.686 Cullen as NATALIO?BLEA [phone] Ca alvino CUEVAS [address] [place] [address] MEDICAL [facility] 2021-12-24 2021-12-24 [facility] BRIAN Blair 1.2.840.114 [id number] Univers 15:44:00 23:59:00 Encounter Yancy Arguelles 350.1.13.10 ity of [facility] 4.2.7.2.686 [place] as [id number] [address] 2021-12-24 2021-12-24 Outpatient [facility] [id number] Univers 00:00:00 23:59:00 YANCY green [facility] 2021-12-22 2021-12-22 Outpatient [facility] [id number] Univers 13:00:00 14:19:55 MADDIE ity [facility] 2021-12-22 2021-12-22 [facility] 1.2.840.114 [id number] Univers 13:00:00 14:19:55 Visit Maddie [facility] 350.1.13.10 it y of [place] 4.2.7.2.686 Cullen as NATALIO?BLEA [phone] [address] MEDICAL OFFICE [facility] 2021-12-19 2021-12-19 Outpatient R DILLON [facility] [id number] Univers 15:30:00 15:30:00 SARAH ity [facility] 2021-11-01 2021-11-01 Orders Doctor EMMANUEL 1.2.840.114 [id number] Univers 00:00:00 00:00:00 Only Unassigned, SUSAN 350.1.13.10 ity of [place] [facility] 4.2.7.2.686 Cullen as [phone] [address] 2021-10-24 2021-10-24 Office [facility] 1.2.840.114 [id number] Univers 13:30:00 14:00:00 Visit [facility] 350.1.13.10 it y of [place] 4.2.7.2.686 Cullen as NATALIO?BLEA [id number] [address] OFFICE [facility] 2021-10-24 2021-10-24 Outpatient R LALI [facility] [id number] Univers 13:30:00 13:30:00 JUAN CARLOS green [facility] 2021-10-24 2021-10-24 Orders Doctor EMMANUEL 1.2.840.114 [id number] Univers 00:00:00 00:00:00 Only Unassigned, SUSAN 350.1.13.10 ity of [place] [facility]PITAL 4.2.7.2.686 Cullen as [phone] [address] 2019-02-01 2019-02-01 Emergency Rafita Bui [facility] 1.2.840.1 14 [id number] 16:31:58 22:14:00 Corey Lantigua 350.1.13.10 [place] 4.2.7.2.686 [place] [id number] 084 Results Test Description Test Time Test Comments Results Result Comments Source ANTI-NUCLEAR ANTIBODY SCREEN 2022-12-25 22:09:50 Test Item Value Reference Range Interpretation Comme nts JORGE (test code = 0086771971) Negative Negative JEANNE (test code = JEANNE) Negative: ?No Anti-Nuclear Antibodies detected by IFA. Positive: ?JORGE IFA screen performed with a 1:80 dilution in adults and a 1:40 dilution in pediatrics. ?A titer is performed and reported separately when the JORGE is "Positive" or when "Cytoplasmic staining is observed." Lab Interpretation (test code = Normal 49647-8) [facility] QUANTITATIVE NAAT 2022-12-25 21:04:10 Test Item Value Reference Range Interpretation Comments HCV Quantitative Not Detected Not Detected Interpretation (test code = 0312854758) JEANNE (test code = JEANNE) The Aptima HCV Quant Dx assay is an FDA-approved real-time top flavor attendant-mediated amplification (TMA) test used for both detection and quantitation of hepatitis C virus (HCV) RNA in human serum and plasma from HCV-infected individuals. ?It is intended for use as an aid in the diagnosis of active HCV infection and the management of HCV-infected patients undergoing HCV antiviral drug therapy. ?It is not approved for use as a screening test for the presence of HCV RNA in blood or blood products. The quantitative range of this assay is 1.00 - 8.00 log IU/mL or 10 - 100,000,000 IU/mL. An interpretation of "Not Detected" does not rule out the presence of inhibitors in the patient specimen or HCV RNA concentration below the level of detection of the test. ?Care should be taken when interpreting any single viral load determination. Detected, not Quantifiable: HCV RNA detected, but at a level below 10 IU/mL (1.0 log IU/mL). ?HCV RNA concentration is below the lower limit of quantitation of the assay. Indeterminate: Error indicated in the generation of the result. ?Please submit a new specimen for repeat testing if clinically indicated. Lab Interpretation Normal (test code = 10082-1) [facility] [id number] 15:11:32 Test Item Value Reference Range Interpretation Comments RF (test code = See_Comment [Automated message] [id number]) The system [employer] generated this result transmitted ref erence range: <20 IU/m L. The reference range was not used to int erpret this result as normal/abnormal . Lab Interpretation (test Normal code = 59068-3) [facility] A VIRUS ANTIBODY [id number] 01:20:23 Test Item Value Reference Range Interpretation Comments HAVM 0.01 Semi-Quantitative (test code = 43530-9) JEANNE (test code = HAVAb IgM Interpretative JEANNE) Information: Reactive greater than or equal to 1.2 Biotin has been reported to cause a negative bias, interpret results relative to patient's use of biotin. [facility] B SURFACE [id number] 01:15:26 Test Item Value Reference Range Interpretation Comments HBsAg Semi-Quantitative (test code = 0.08 Negative 5195-3) [facility]. METABOLIC PANEL ([id number])2022-12-23 23:05:19 Test Item Value Reference Range Interpretation Comments NA (test code = 134 mmol/L 135-145 L 4260770133) K (test code = 5.1 mmol/L 3.5-5.0 H 0201583143) CL (test code = 102 mmol/L 98-108 1539218713) CO2 TOTAL (test code = 20 mmol/L 23-31 L 5937506585) AGAP (test code = 12 2-16 4831037543) BUN (test code = 12 mg/dL 7-23 8140267465) GLUCOSE (test code = 593 mg/dL 70-110 HH 2192758213) CREATININE (test code = 1.06 mg/dL 0.60-1.25 2849779255) TOTAL BILI (test code = 0.5 mg/dL 0.1-1.3 0032698726) CALCIUM (test code = 8.8 mg/dL 8.6-10.6 8247902165) T PROTEIN (test code = 6.8 g/dL 6.3-8.2 3346344166) ALBUMIN (test code = 3.9 g/dL 3.5-5.0 6136265842) ALK PHOS (test code = 160 U/L 34-122 H 4980513510) ALTv (test code = 17 U/L 5-50 1742-6) AST(SGOT) (test code = 16 U/L 13-40 4291086805) eGFR (test code = 70.3 mL/min/1.73m2 2239468436) JEANNE (test code = JEANNE) Association of Glomerular Filtration Rate (GFR) and Staging of Kidney Disease* + --+ --+ ------+| GFR (mL/min/1.73 m2) ?| With Kidney Damage ?| ?Without Kidney Damage+ --------+ --------+ +| ?>90 ?| ?Stage one ?| ? Normal ?+ ---+ ---+ -------+| ?60-89 ?| ?Stage two ?| ? Decreased GFR ? + --+ --+ ------+| ?30-59 ?| ?Stage three ?| ? Stage three ? + --+ --+ ------+| ?15-29 ?| ?Stage four ? | ? Stage four ?+ ---+ ---+ -------+| ?<15 (or dialysis) ? ?| ?Stage five ? | ? Stage five ?+ ---+ ---+ -------+ *Each stage assumes the associated GFR level has been in effect for at least three months. ?Stages 1 to 5, with or without kidney disease, indicate chronic kidney disease. Notes: Determination of stages one and two (with eGFR >59mL/min/1.73 m2) requires estimation of kidney damage for at least three months as defined by structural or functional abnormalities of the kidney, manifested by either:Pathological abnormalities or Markers of kidney damage (including abnormalities in the composition of the blood or urine or abnormalities in imaging tests). Lab Interpretation Abnormal (test code = 77643-6) [facility]. METABOLIC PANEL ([id number])2022-12-23 23:05:19 Test Item Value Reference Range Interpretation Comments NA (test code = 134 mmol/L 135-145 L 4140145799) K (test code = 5.1 mmol/L 3.5-5.0 H 7376539968) CL (test code = 102 mmol/L 98-108 4320672580) CO2 TOTAL (test code = 20 mmol/L 23-31 L 4422888622) AGAP (test code = 12 2-16 3718765532) BUN (test code = 12 mg/dL 7-23 1973171488) GLUCOSE (test code = 593 mg/dL 70-110 HH 7037689247) CREATININE (test code = 1.06 mg/dL 0.60-1.25 5359595195) TOTAL BILI (test code = 0.5 mg/dL 0.1-1.9 4537617089) CALCIUM (test code = 8.8 mg/dL 8.6-10.6 0996846964) T PROTEIN (test code = 6.8 g/dL 6.3-8.2 2388644462) ALBUMIN (test code = 3.9 g/dL 3.5-5.0 7934628630) ALK PHOS (test code = 160 U/L 34-122 H 9789817960) ALTv (test code = 17 U/L 5-50 2-6) AST(SGOT) (test code = 16 U/L 13-40 0701982348) eGFR (test code = 70.3 mL/min/1.73m2 5313235186) JEANNE (test code = JEANNE) Association of Glomerular Filtration Rate (GFR) and Staging of Kidney Disease* + --+ --+ ------+| GFR (mL/min/1.73 m2) ?| With Kidney Damage ?| ?Without Kidney Damage+ --------+ --------+ +| ?>90 ?| ?Stage one ?| ? Normal ?+ ---+ ---+ -------+| ?60-89 ?| ?Stage two ?| ? Decreased GFR ? + --+ --+ ------+| ?30-59 ?| ?Stage three ?| ? Stage three ? + --+ --+ ------+| ?15-29 ?| ?Stage four ? | ? Stage four ?+ ---+ ---+ -------+| ?<15 (or dialysis) ? ?| ?Stage five ? | ? Stage five ?+ ---+ ---+ -------+ *Each stage assumes the associated GFR level has been in effect for at least three months. ?Stages 1 to 5, with or without kidney disease, indicate chronic kidney disease. Notes: Determination of stages one and two (with eGFR >59mL/min/1.73 m2) requires estimation of kidney damage for at least three months as defined by structural or functional abnormalities of the kidney, manifested by either:Pathological abnormalities or Markers of kidney damage (including abnormalities in the composition of the blood or urine or abnormalities in imaging tests). Lab Interpretation Abnormal (test code = 71991-7) [facility] AG-AB WITH [id number] 22:59:45 Test Item Value Reference Range Interpretation Comments HIV 0.10 Negative Semi-quantitative (test code = 49641-9) JEANNE (test code = Non-reactive for HIV-1 JEANNE) antigen and HIV-1/HIV-2 antibodies. ?No laboratory evidence of HIV infection. ?Repeat in 2-4 weeks if acute HIV infection is suspected. [facility]EMOGLOB[facility] (A1C)2022-12-23 22:12:38 Test Item Value Reference Range Interpretation Comments HGB A1C (test code = 4.0-5.7 H 4548-4) JEANNE (test code = JEANNE) Reference RangesNormal: <5.7%Prediabetes: 5.7 - 6.4%Diabetes: > 6.5% Lab Interpretation (test Abnormal code = 21819-4) [facility] (A1C)2022-12-23 22:12:38 Test Item Value Reference Range Interpretation Comments HGB A1C (test code = 4.0-5.7 H 4548-4) JEANNE (test code = JEANNE) Reference RangesNormal: <5.7%Prediabetes: 5.7 - 6.4%Diabetes: > 6.5% Lab Interpretation (test Abnormal code = 56091-5) [facility]evilleSEDIMENTATION [id number] 21:43:13 Test Item Value Reference Range Interpretation Comments ESR (test code = 16 See_Comment H [Automated message] 42561-6) The system [employer] h generated this result transmitted ref erence range: 0 - 10 m m/HR. The reference r arleth was not used to interpret this result as normal/abnor mal. Lab Interpretation (test Abnormal code = 43493-0) [facility] WITH [id number] 21:11:10 Test Item Value Reference Range Interpretation Comments WBC (test code = 4.26 See_Comment [Automated 6690-2) message] The sy stem which generated this result transmitted reference range : 4.20 - 10.70 10*3/?L. The reference range was not used to interpret this result as normal/abnormal . RBC (test code = 4.46 See_Comment [Automated 789-8) message] The sy stem which generated this result transmitted reference range : 4.26 - 5.52 10*6/?L. The reference range was not used to interpret this result as normal/abnormal . HGB (test code = 11.9 g/dL 12.2-16.4 L 718-7) HCT (test code = 37.6 % 38.4-49.3 L 4544-3) MCV (test code = 84.3 fL 81.7-95.6 787-2) MCH (test code = 26.7 pg 26.1-32.7 785-6) MCHC (test code = 31.6 g/dL 31.2-35.0 786-4) RDW-SD (test code = 48.0 fL 38.5-51.6 46490-5) RDW-CV (test code = 15.8 % 12.1-15.4 H 788-0) PLT (test code = 229 See_Comment [Automated 777-3) message] The sy stem which generated this result transmitted reference range : 150 - 328 10*3/ ?L. The reference r arleth was not used to interpret this result as normal/abnormal . MPV (test code = 11.8 fL 9.8-13.0 51876-4) NRBC/100 WBC (test 0.0 See_Comment [Automat ed code = 5892970563) message] The system which generated this result transmitted reference range : 0.0 - 10.0 /100 WBCs. The refer ence range was not u sed to interpret th is result as normal/abnormal . NRBC x10^3 (test code See_Comment [Auto mated = [id number]) message] The s ystem which generated this result transmitted reference range : 10*3/?L. The reference range was not used to interpret this result as normal/abnormal . GRAN MAT (NEUT) % 60.6 % (test code = 770-8) IMM GRAN % (test code 0.20 % = [id number]) LYMPH % (test code = 25.6 % 736-9) MONO % (test code = 9.6 % 5905-5) EOS % (test code = 3.3 % 713-8) BASO % (test code = 0.7 % 706-2) GRAN MAT x10^3(ANC) 2.58 10*3/uL 1.99-6.95 (test code = 5960115166) IMM GRAN x10^3 (test 0.00-0.06 code = 7560589279) LYMPH x10^3 (test code 1.09 10*3/uL 1.09-3.23 = 731-0) MONO x10^3 (test code 0.41 10*3/uL 0.36-1.02 = 742-7) EOS x10^3 (test code = 0.14 10*3/uL 0.06-0.53 711-2) BASO x10^3 (test code 0.03 10*3/uL 0.01-0.09 = 704-7) Lab Interpretation Abnormal (test code = 85461-2) [facility] WITH [id number] 21:11:10 Test Item Value Reference Range Interpretation Comments WBC (test code = 4.26 See_Comment [Automated 5391-2) message] The sy stem which generated this result transmitted reference range : 4.20 - 10.70 10*3/?L. The reference range was not used to interpret this result as normal/abnormal . RBC (test code = 4.46 See_Comment [Automated 391-8) message] The sy stem which generated this result transmitted reference range : 4.26 - 5.52 10*6/?L. The reference range was not used to interpret this result as normal/abnormal . HGB (test code = 11.9 g/dL 12.2-16.4 L 718-7) HCT (test code = 37.6 % 38.4-49.3 L 4544-3) MCV (test code = 84.3 fL 81.7-95.6 787-2) MCH (test code = 26.7 pg 26.1-32.7 785-6) MCHC (test code = 31.6 g/dL 31.2-35.0 786-4) RDW-SD (test code = 48.0 fL 38.5-51.6 10218-6) RDW-CV (test code = 15.8 % 12.1-15.4 H 788-0) PLT (test code = 229 See_Comment [Automated 777-3) message] The sy stem which generated this result transmitted reference range : 150 - 328 10*3/ ?L. The reference r arleth was not used to interpret this result as normal/abnormal . MPV (test code = 11.8 fL 9.8-13.0 45798-0) NRBC/100 WBC (test 0.0 See_Comment [Automat ed code = 4024940392) message] The system which generated this result transmitted reference range : 0.0 - 10.0 /100 WBCs. The refer ence range was not u sed to interpret th is result as normal/abnormal . NRBC x10^3 (test code See_Comment [Auto mated = 3034270270) message] The s ystem which generated this result transmitted reference range : 10*3/?L. The reference range was not used to interpret this result as normal/abnormal . GRAN MAT (NEUT) % 60.6 % (test code = 770-8) IMM GRAN % (test code 0.20 % = 7032993057) LYMPH % (test code = 25.6 % 736-9) MONO % (test code = 9.6 % 5905-5) EOS % (test code = 3.3 % 713-8) BASO % (test code = 0.7 % 706-2) GRAN MAT x10^3(ANC) 2.58 10*3/uL 1.99-6.95 (test code = 1460558877) IMM GRAN x10^3 (test 0.00-0.06 code = 3387638784) LYMPH x10^3 (test code 1.09 10*3/uL 1.09-3.23 = 731-0) MONO x10^3 (test code 0.41 10*3/uL 0.36-1.02 = 742-7) EOS x10^3 (test code = 0.14 10*3/uL 0.06-0.53 711-2) BASO x10^3 (test code 0.03 10*3/uL 0.01-0.09 = 704-7) Lab Interpretation Abnormal (test code = 72957-4) [facility]:15:08 Test Item Value Reference Range Interpretation Comments POCT GLU (test code = 9132404421) 232 mg/dL 70-110 H Lab Interpretation (test code = Abnormal 92323-9) [facility] WITH [id number] 00:31:00 Test Item Value Reference Range Interpretation Comments WBC (test code = See_Comment [Automated 6690-2) message] The sy stem which generated this result transmitted reference range : 4.20 - 10.70 10*3/?L. The reference range was not used to interpret this result as normal/abnormal . RBC (test code = See_Comment L [Automated 789-8) message] The sy stem which generated this result transmitted reference range : 4.26 - 5.52 10*6/?L. The reference range was not used to interpret this result as normal/abnormal . HGB (test code = 9.7 g/dL 12.2-16.4 L 718-7) HCT (test code = 31.8 % 38.4-49.3 L 4544-3) MCV (test code = 86.2 fL 81.7-95.6 787-2) MCH (test code = 26.3 pg 26.1-32.7 785-6) MCHC (test code = 30.5 g/dL 31.2-35.0 L 786-4) RDW-SD (test code = 47.3 fL 38.5-51.6 51049-7) RDW-CV (test code = 14.9 % 12.1-15.4 788-0) PLT (test code = See_Comment [Automated 777-3) message] The sy stem which generated this result transmitted reference range : 150 - 328 10*3/ ?L. The reference r arleth was not used to interpret this result as normal/abnormal . MPV (test code = 11.2 fL 9.8-13.0 72613-3) NRBC/100 WBC (test See_Comment [Automat ed code = 5461332997) message] The system which generated this result transmitted reference range : 0.0 - 10.0 /100 WBCs. The refer ence range was not u sed to interpret th is result as normal/abnormal . NRBC x10^3 (test code See_Comment [Auto mated = 7768112033) message] The s [employer] which generated this result transmitted reference range : 10*3/?L. The reference range was not used to interpret this result as normal/abnormal . GRAN MAT (NEUT) % 55.5 % (test code = 770-8) IMM GRAN % (test code 0.20 % = 8874197344) LYMPH % (test code = 27.4 % 736-9) MONO % (test code = 9.4 % 5905-5) EOS % (test code = 6.4 % 713-8) BASO % (test code = 1.1 % 706-2) GRAN MAT x10^3(ANC) 3.66 10*3/uL 1.99-6.95 (test code = 3604711894) IMM GRAN x10^3 (test 0.00-0.06 code = 6912099379) LYMPH x10^3 (test code 1.80 10*3/uL 1.09-3.23 = 731-0) MONO x10^3 (test code 0.62 10*3/uL 0.36-1.02 = 742-7) EOS x10^3 (test code = 0.42 10*3/uL 0.06-0.53 711-2) BASO x10^3 (test code 0.07 10*3/uL 0.01-0.09 = 704-7) Lab Interpretation Abnormal (test code = 12283-5) [facility]CA[facility] [id number] 00:20:20 Test Item Value Reference Interpretation Comments Range TROPONIN I (test 0.003 ng/mL See_Comment [Automated code = 1549366815) message] The system which generated this result transmitted reference range : <=0.034. The reference range was not used to interpret this result as normal/abnormal . JEANNE (test code = Reference (Normal) JEANNE) Range (defined by the 99th percentile reference limit): <= 0.034 ng/mL Note: Cardiac troponin begins to rise 3-4 hours after the onset of ischemia. Repeat in 4-6 hours if the sample was drawn within 3-4 hours of the onset of the symptom and found normal. Diagnosis of myocardial injury is made with acute changes in cTn concentrations with at least one serial sample above the 99th percentile upper reference limit (URL), taken together with the patient's clinical presentation. Biotin has been reported to cause a negative bias, interpret results relative to patient's use of biotin. Lab Interpretation Normal (test code = 23294-3) [facility]eville[facility] [id number] 00:17:21 Test Item Value Reference Range Interpretation Comments NT-proBNP (test code 76 pg/mL See_Comment [Autom ated = 5408543102) message] The system which generated this result transmitted reference range : <=125. The reference range was not used to interpret this result as normal/abnormal . JEANNE (test code = JEANNE) Biotin has been reported to cause a negative bias, interpret results relative to patient's use of biotin. Lab Interpretation Normal (test code = 60636-5) [facility] MET[facility]OLIC PANEL (63966)2022-07-11 00:09:39 Test Item Value Reference Range Interpretation Comments NA (test code = 136 mmol/L 135-145 6390644803) K (test code = 5.2 mmol/L 3.5-5.0 H 2642951504) CL (test code = 103 mmol/L 98-108 3902900933) CO2 TOTAL (test code = 25 mmol/L 23-31 8802301345) AGAP (test code = 2-16 1839145661) BUN (test code = 12 mg/dL 7-23 2507562491) GLUCOSE (test code = 298 mg/dL 70-110 H 3585239706) CREATININE (test code = 0.96 mg/dL 0.60-1.25 5852485776) TOTAL BILI (test code = 0.4 mg/dL 0.1-1.7 1685606391) CALCIUM (test code = 8.6 mg/dL 8.6-10.6 1749784973) T PROTEIN (test code = 7.5 g/dL 6.3-8.2 8122685230) ALBUMIN (test code = 4.0 g/dL 3.5-5.0 7808569149) ALK PHOS (test code = 132 U/L 34-122 H 9927888185) ALTv (test code = 11 U/L 5-50 1742-6) AST(SGOT) (test code = 14 U/L 13-40 2783396765) eGFR (test code = mL/min/1.73m2 1888107971) JEANNE (test code = JEANNE) Association of Glomerular Filtration Rate (GFR) and Staging of Kidney Disease* + --+ --+ ------+| GFR (mL/min/1.73 m2) ?| With Kidney Damage ?| ?Without Kidney Damage+ --------+ --------+ +| ?>90 ?| ?Stage one ?| ? Normal ?+ ---+ ---+ -------+| ?60-89 ?| ?Stage two ?| ? Decreased GFR ? + --+ --+ ------+| ?30-59 ?| ?Stage three ?| ? Stage three ? + --+ --+ ------+| ?15-29 ?| ?Stage four ? | ? Stage four ?+ ---+ ---+ -------+| ?<15 (or dialysis) ? ?| ?Stage five ? | ? Stage five ?+ ---+ ---+ -------+ *Each stage assumes the associated GFR level has been in effect for at least three months. ?Stages 1 to 5, with or without kidney disease, indicate chronic kidney disease. Notes: Determination of stages one and two (with eGFR >59mL/min/1.73 m2) requires estimation of kidney damage for at least three months as defined by structural or functional abnormalities of the kidney, manifested by either:Pathological abnormalities or Markers of kidney damage (including abnormalities in the composition of the blood or urine or abnormalities in imaging tests). Lab Interpretation Abnormal (test code = 54294-7) [facility]2023-[facility] 00:09:18 Test Item Value Reference Range Interpretation Comments LIPASE (test code = 6705171687) 86 U/L 0-220 Lab Interpretation (test code = Normal 02919-2) [facility] THRMPLAS [id number] 00:02:17 Test Item Value Reference Range Interpretation Comments APTT Patient (test See_Comment [Automat ed code = 3173-2) message] The system which generated this result transmitted reference range : 23 - 38 Seconds . The reference range was not used to interpr et this result as normal/abnormal . JEANNE (test code = JEANNE) The [facility] patient population mean normal value for aPTT is 30 seconds. Lab Interpretation Normal (test code = 01213-0) [facility]evillePROTHROMBIN [facility] / [id number] 00:00:17 Test Item Value Reference Range Interpretation Comments PROTIME PATIENT (test See_Comment [Auto mated message] code = 5964-2) The system wh ich generated this result transmitted ref erence range: 12.0 - 1 4.7 Seconds. The re ference range was not u sed to interpret this result as normal/abnor mal. INR (test code = 6301-6) Nor mal INR <1.1; Warfarin Therap eutic range 2.0 to 3. 0 or 2.5 to 3.5, dep ending upon the indica tions. Lab Interpretation (test Normal code = 51325-0) [facility] A1C [id number] 19:28:00 Test Item Value Reference Range Interpretation Comments POCT HBA1C (test code = 4548-4) 14.0 % 4-6 A Lab Interpretation (test code = Abnormal 56772-3) [facility]
[2023-04-24 14:06] LABS: Absolute Lymphocytes (CBC) 0.8 K/uL (0.7-4.9); Hematocrit 39.7 % (39.6-49.0); Lymphocytes % 6.8 % (15.3-44.8); MCV 83.4 fL (80-100); MPV 8.9 fL (7.6-11.3); Platelets 210 thou/uL (152-406); RBC Red Blood Cell Count 4.76 M/uL (4.33-5.43)
[2023-04-24 14:14] LABS: Protime INR 1.01
[2023-04-24 14:44] LABS: Potassium 4.9 mEq/L (3.5-5.1); Troponin High Sensitivity 4.3 pg/mL (<58.9)
--- NOTE | 2023-04-24 16:13 | RAD REPORT ---
EXAM DESCRIPTION: CT - Head Brain Wo Cont - 04/24/2023 3:16 pm CLINICAL HISTORY: WEAKNESS COMPARISON: Head angio dated 04/24/2023; Head Brain Wo Cont dated 11/26/2020 TECHNIQUE: Noncontrast head CT images were obtained without IV contrast. Multiplanar reformats were generated and reviewed. All CT scans are performed using dose optimization technique as appropriate and may include automated exposure control or mA/KV adjustment according to patient size. FINDINGS: No intracranial hemorrhage, mass, or edema. Midline structures are unremarkable. Mild diffuse parenchymal volume loss. Normal ventricular caliber for age. Donis-white matter differentiation is preserved, without evidence of acute infarct. No abnormal extra- axial fluid collections. Mastoid air cells and visualized portions of the paranasal sinuses are clear. No acute bony findings. IMPRESSION: No evidence of an acute intracranial process.
--- NOTE | 2023-04-24 16:18 | RAD REPORT ---
EXAM DESCRIPTION: CT - Neck Angio - 04/24/2023 3:16 pm CLINICAL HISTORY: NUMBNESS COMPARISON: C Spine Wo Con dated 01/10/2019; Head C Spine Mpr Wo Con dated 06/30/2018; Head Brain Wo C ont dated 04/24/2023 TECHNIQUE: Axial CT angiography images of the head was performed with multiplanar and maximum intens ity projection reconstructions. Images performed following intravenous administration of 100mL Isovue 370. All CT scans are performed using dose optimization technique as appropriate and may include automated exposure control or mA/KV adjustment according to patient size. Quantification of carotid stenosis, if any, is performed according to NASCET criteria. FINDINGS: A left aortic arch is identified with normal three vessel configuration of the great vesse ls. No significant flow abnormality is seen of the common carotid bilaterally. No significant stenosis is identified involving the cervical segments of both internal carotid arteri es. Normal flow is seen within both vertebral arteries. Deformity compatible with a healed fracture along the distal left clavicle. IMPRESSION: No significant flow abnormality of the neck vessels is identified. CAROTID STENOSIS REFERENCE USING NASCET CRITERIA: % ICA stenosis = (1 - narrowest ICA diameter/diameter of distal cervical ICA) x 100. Mild - <50% stenosis. Moderate - 50-69% stenosis. Severe - 70-94% stenosis. Near occlusion - 95-99% stenosis. Occluded - 100% stenosis.
--- NOTE | 2023-04-24 16:22 | RAD REPORT ---
EXAM DESCRIPTION: CT - Head angio - 04/24/2023 3:17 pm CLINICAL HISTORY: NUMBNESS COMPARISON: Head Brain Wo Cont dated 11/26/2020; Ct Stroke Brain Wo Cont dated 08/02/2020 TECHNIQUE: Axial CT angiography images of the head was performed with multiplanar and maximum intens ity projection reconstructions. Images performed following intravenous administration of 100mL Isovue 370. All CT scans are performed using dose optimization technique as appropriate and may include automated exposure control or mA/KV adjustment according to patient size. FINDINGS: No evidence of large vessel occlusion. No evidence of aneurysm or dissection flap is detec pablo. No flow-limiting stenosis or vascular malformation identified. Antegrade flow is seen in the vertebral arteries. The vertebral arteries are codominant. The visualized dural venous sinuses are grossly patent. IMPRESSION: No evidence of large vessel occlusion or flow-limiting stenosis.
--- NOTE | 2023-04-24 16:27 | EDPHYS ---
Physician Documentation [facility] Name: Trever Jay Age: 63 yrs Sex: Male : 1960 Arrival Date: 04/24/2023 Time: 13:22 Bed 2 Private MD: ED Physician Rancho Mayes HPI: 04/24 13:41 This 63 yrs old Male presents to ER via Wheelchair with complaints of LEFT ec2 SIDE WEAKNESS. 13:41 Patient arrives today for 1 week of symptoms. Patient has been having progressive ec2 left-sided numbness and weakness. Patient reports no history of strokes. Reports that he has been having recurrent falls. Patient reports otherwise no infectious symptoms.. Historical: - Allergies: 13:33 Ibuprofen; hb 13:33 metformin; hb - PMHx: 13:33 Chronic pain; depressive disorder; Diabetes - NIDDM; diverticulosis; fatty liver; GERD; hb Hepatitis; Asthma; High Cholesterol; incontinence; Anxiety; Osteoporosis; overactive bladder; neuropathy; - PSHx: 13:33 Left knee replacement; hb - Immunization history:: Adult Immunizations up to date. - Social history:: Smoking status: Patient denies any tobacco usage or history of. ROS: 13:41 Constitutional: as per hpi ec2 Exam: 13:41 Constitutional: GEN: NAD Head: atraumatic Eyes: EOMI Ears: External ears are ec2 normal. CV: tachycardia LUNGS: no respiratory distress ABD: non-distended SKIN: no evidence of rashes MSK: no evidence of trauma NEURO: Cranial nerves II through XII intact, left-sided numbness and weakness when compared to right both upper and lower extremity. Vital Signs: 13:33 BP 116 / 79; Pulse 106; Resp 18; Temp 97.3; Pulse Ox 100% ; Weight 77.56 kg; Height 5 hb ft. 4 in. ; Pain 8/10; 16:14 BP 110 / 71; Pulse 92; Resp 16; Pulse Ox 99% ; ss 13:33 Body Mass Index 29.35 (77.56 kg, 162.56 cm) hb 13:33 Pain Scale: Adult hb NIH Stroke Scale Scores: 15:48 NIHSS Score: 1 ss MDM: 13:28 Patient medically screened. ec2 13:41 ED course: Patient arrives today due to concern for progressive left-sided weakness. ec2 Examination remarkable for well-appearing nontoxic individual is otherwise in no acute distress who does have left-sided findings as noted in the neuro exam above. Will obtain a CT scan of the head as well as CT angio head and neck and lab work. Currently considering process such as stroke, electrolyte disturbances, arrhythmia. Patient is outside of any actionable window and will currently defer given TNK or expediting CT imaging.. 14:18 ED course: EKG independently reviewed and interpreted by me, shows normal sinus rhythm, ec2 rate of 97, no acute ST segment elevations, nonconcerning intervals.. 15:08 Data reviewed: vital signs. ED course: Patient's lab work remarkable for some renal ec2 dysfunction with a creatinine of 1.34 and a GFR 59. CBC with slight leukocytosis noted. Troponin within normal ranges. Of note patient does meet SIRS criteria with tachycardia and the WBC at 12.4 however have a low clinical index suspicion for acute bacterial infection at this time. Accordingly will defer antibiotic therapy at this time . 16:25 ED course: CT scan of the head shows no acute intracranial process, CT angio shows no ec2 significant flow-limiting stenosis in the head or neck. Given the patient has weakness I will admit for further MR imaging and neuro evaluation. I discussed case with hospitalist, pending admission. . 04/24 13:37 Order name: Basic Metabolic Panel; Complete Time: 15:07 ec2 04/24 13:37 Order name: CBC with Diff; Complete Time: 15:07 ec2 04/24 13:37 Order name: High Sensitivity Troponin; Complete Time: 15:07 ec2 04/24 13:37 Order name: Protime (+inr); Complete Time: 15:07 ec2 04/24 13:37 Order name: Ptt, Activated; Complete Time: 15:07 ec2 04/24 14:18 Order name: Glucose, Ancillary Testing; Complete Time: 15:07 EDMS 04/24 13:37 Order name: CT Head Brain wo Cont; Complete Time: 16:24 ec2 04/24 13:37 Order name: CT Neck Angio; Complete Time: 17:43 ec2 04/24 13:37 Order name: CT Head Angio; Complete Time: 16:24 ec2 04/24 13:37 Order name: EKG; Complete Time: 13:37 ec2 04/24 13:37 Order name: Accucheck; Complete Time: 14:14 ec2 04/24 13:37 Order name: Cardiac monitoring; Complete Time: 14:14 ec2 04/24 13:37 Order name: EKG - Nurse/Tech; Complete Time: 14:14 ec2 04/24 13:37 Order name: IV Saline Lock; Complete Time: 13:58 ec2 04/24 13:37 Order name: Labs collected and sent; Complete Time: 13:58 ec2 04/24 13:37 Order name: NPO; Complete Time: 13:58 ec2 04/24 13:37 Order name: O2 Per Protocol; Complete Time: 13:58 ec2 04/24 13:37 Order name: O2 Sat Monitoring; Complete Time: 13:58 ec2 04/24 13:37 Order name: Stroke Swallow Screen; Complete Time: 14:21 ec2 04/24 14:11 Order name: Labs - recollect needed: recollect light green; Complete Time: 14:21 eb Administered Medications: 15:55 Not Given (Patient Refused): [id number] mg PO once ss 17:43 Drug: Insulin Regular Human Sub-Q 8 units Sub-Q once {Co-Signature: ph (Katarzyna Dickinson ss RN).} Route: Sub-Q; Site: left upper arm; 18:19 Drug: Aspirin PO 325 mg PO once Route: PO; ss Disposition Summary: 04/24/23 16:26 Hospitalization Ordered Notes: Hospitalization Status: Inpatient Admission ec2 Provider: Micheal Camarillo ec2 [facility] Condition: Stable ec2 Problem: an acute exacerbation ec2 Symptoms: have worsened ec2 Bed/Room Type: Standard ec2 Room Assignment: 225(04/24/23 18:32) dw Diagnosis - Weakness ec2 Forms: - Medication Reconciliation Form ec2 - SBAR form ec2 - Leadership Thank You Letter ec2 NIH Stroke Scale - NIH Stroke Score Date: 04/24/2023 Time: 15:48 Total Score = 1 10. Dysarthria (speech clarity - read or repeat words) - 0(Normal) 11. Extinction and Inattention (visual/tactile/auditory/spatial/personal) - 0(No abnormality) 1a. Level of Consciousness (LOC) - 0(Alert) 1b. Level of Consciousness (LOC) (Month \T\ Age) - 0(Both) 1c. LOC Commands (Open \T\ Closes Eyes/Explosive Ordnance Disposal Manager) - 0(Both) 2. Best Gaze (Lateral Gaze Paresis) - 0(Normal) 3. Visual Field Loss - 0(No visual loss) 4. Facial Palsy - 0(Normal) 5a. Left Arm: Motor (10-second hold) - 0(No drift) 5b. Right Arm: Motor (10-second hold) - 0(No drift) 6a. Left Leg: Motor (5-second hold - always test supine) - 1(Drift) 6b. Right Leg: Motor (5-second hold - always test supine) - 0(No drift) 7. Limb Ataxia (finger/nose \T\ heel/major - test with eyes open) - 0(Absent) 8. Sensory Loss (pinprick arms/legs/face) - 0(Normal) 9. Best Language: Aphasia (description/naming/reading) - 0(No aphasia) Initials: Signatures: Dispatcher [employer] GUILLERMONH Veronika Domínguez RN RN Fiona Mijares RN RN Damien Muhammad, EXPERIMENTAL ASSEMBLER-C EXPERIMENTAL ASSEMBLER-Cla1 Ariela Akhtar RN RN Areli Lynn Rancho Mayes MD MD ec2 Katarzyna Dickinson RN ph Corrections: (The following items were deleted from the chart) 13:42 13:41 Constitutional: GEN: NAD Head: atraumatic Eyes: EOMI Ears: External ears ec2 are normal. CV: regular rate LUNGS: no respiratory distress ABD: non-distended SKIN: no evidence of rashes MSK: no evidence of trauma NEURO: Cranial nerves II through XII intact, left-sided numbness and weakness when compared to right both upper and lower extremity. ec2 18:32 16:26 ec2 dw
--- NOTE | 2023-04-24 16:27 | ER ---
Nurse's Notes [facility] Name: Trever Jay Age: 63 yrs Sex: Male : 1960 Arrival Date: 04/24/2023 Time: 13:22 Bed 2 Private MD: Diagnosis: Weakness Presentation: 04/24 13:33 Chief complaint: Patient states: L side weakness numbness getting worse for 1 week. hb Coronavirus screen: Client denies travel out of the [place] in the last 14 days. At this time, the client does not indicate any symptoms associated with coronavirus-19. Ebola Screen: Patient denies travel to an Ebola-affected area in the 21 days before illness onset. Initial Sepsis Screen: Does the patient meet any 2 criteria? No. Patient's initial sepsis screen is negative. Does the patient have a suspected source of infection? No. Patient's initial sepsis screen is negative. Risk Assessment: Do you want to hurt yourself or someone else? Patient reports no desire to harm self or others. Onset of symptoms was April 17, 2023. 13:33 Method Of Arrival: Wheelchair 13:33 Acuity: ANAMARIA 2 hb Triage Assessment: 19:20 General: Behavior is calm, cooperative. rv Historical: - Allergies: 13:33 Ibuprofen; hb 13:33 metformin; hb - PMHx: 13:33 Chronic pain; depressive disorder; Diabetes - NIDDM; diverticulosis; fatty liver; GERD; hb Hepatitis; Asthma; High Cholesterol; incontinence; Anxiety; Osteoporosis; overactive bladder; neuropathy; - PSHx: 13:33 Left knee replacement; hb - Immunization history:: Adult Immunizations up to date. - Social history:: Smoking status: Patient denies any tobacco usage or history of. Screenin:21 [facility] ED Fall Risk Assessment (Adult) History of falling in the last 3 months, ss including since admission. Abuse screen: Denies threats or abuse. Denies injuries from another. Nutritional screening: No deficits noted. Tuberculosis screening: Never had TB. 15:48 [place] Swallow Protocol Brief Cognitive Screen What is your name? Normal, Where are you ss right now? Normal, What year is it? Normal. Oral Mechanism Examination Facial Symmetry: Normal, Motion: Normal, Lip Closure: Normal, Oral Mechanism Result: Normal. 3 oz Water Swallow Challenge: Pt able to drink all water without stopping, coughing, choking or throat clearing: Yes Result: PASS. Assessment: 13:57 General: Appears in no apparent distress. Pt seems to fall asleep easily, but is easy ss to wake up. . Pain: Complains of pain in "all over" states he has seen his PCP for this and they cannot find out why he is hurting everywhere Pain currently is 8 out of 10 on a pain scale. Quality of pain is described as aching, Pain began Is continuous. Neuro: Level of Consciousness is awake, alert, obeys commands, Oriented to person, place, time, situation, Equipment Tester are weak on left Pt states. "it just hurts.". Speech is normal, Facial symmetry appears normal, Pupils are PERRLA. Respiratory: Airway is patent Respiratory effort is even, unlabored, Respiratory pattern is regular, symmetrical. GI: Patient currently denies diarrhea, nausea, vomiting. Derm: Skin is intact, is healthy with good turgor, Skin is pink, warm \\T\\ dry. normal. 15:30 Reassessment: Back from CT, awaiting for results. Pt states he is in pain all over. Dr. chelly Mayes notified and ordered Tylenol. Pt refused Tylenol. 16:58 Reassessment: Patient appears in no apparent distress at this time. Patient and/or ss family updated on plan of care and expected duration. Pain level reassessed. Patient is alert, oriented x 3, equal unlabored respirations, skin warm/dry/pink. Vital Signs: 13:33 BP 116 / 79; Pulse 106; Resp 18; Temp 97.3; Pulse Ox 100% ; Weight 77.56 kg; Height 5 hb ft. 4 in. ; Pain 8/10; 16:14 BP 110 / 71; Pulse 92; Resp 16; Pulse Ox 99% ; ss 13:33 Body Mass Index 29.35 (77.56 kg, 162.56 cm) hb 13:33 Pain Scale: Adult hb NIH Stroke Scale Scores: 15:48 NIHSS Score: 1 ss ED Course: 13:25 Patient arrived in ED. kj1 13:28 Rancho Mayes MD is Attending Physician. ec2 13:33 Arm band placed on Patient placed in an exam room, on a stretcher. hb 13:34 Triage completed. hb 13:57 Inserted saline lock: 20 gauge in right wrist, using aseptic technique. Blood collected.ss 14:14 Fiona Mijares, RN is Primary Nurse. ss 14:21 Patient has correct armband on for positive identification. ss 15:18 CT Head Brain wo Cont In Process Unspecified. EDMS 15:18 CT Neck Angio In Process Unspecified. EDMS 15:18 CT Head Angio In Process Unspecified. EDMS 16:26 Micheal Camarillo MD is Hospitalizing Provider. ec2 19:20 No provider procedures requiring assistance completed. Patient admitted, IV remains in rv place. Administered Medications: 15:55 Not Given (Patient Refused): [id number] mg PO once ss 17:43 Drug: Insulin Regular Human Sub-Q 8 units Sub-Q once {Co-Signature: ph (Katarzyna Dickinson ss RN).} Route: Sub-Q; Site: left upper arm; 18:19 Drug: Aspirin PO 325 mg PO once Route: PO; ss Medication: 13:57 VIS not applicable for this client. ss Outcome: 16:26 Decision to Hospitalize by Provider. ec2 19:20 Admitted to Med/surg accompanied by tech, via stretcher, room 225, with chart, rv 19:20 Condition: good 19:20 Instructed on the need for admit, 19:21 Patient left the ED. rv NIH Stroke Scale - NIH Stroke Score Date: 04/24/2023 Time: 15:48 Total Score = 1 10. Dysarthria (speech clarity - read or repeat words) - 0(Normal) 11. Extinction and Inattention (visual/tactile/auditory/spatial/personal) - 0(No abnormality) 1a. Level of Consciousness (LOC) - 0(Alert) 1b. Level of Consciousness (LOC) (Month \\T\\ Age) - 0(Both) 1c. LOC Commands (Open \\T\\ Closes Eyes/Counter Molder) - 0(Both) 2. Best Gaze (Lateral Gaze Paresis) - 0(Normal) 3. Visual Field Loss - 0(No visual loss) 4. Facial Palsy - 0(Normal) 5a. Left Arm: Motor (10-second hold) - 0(No drift) 5b. Right Arm: Motor (10-second hold) - 0(No drift) 6a. Left Leg: Motor (5-second hold - always test supine) - 1(Drift) 6b. Right Leg: Motor (5-second hold - always test supine) - 0(No drift) 7. Limb Ataxia (finger/nose \\T\\ heel/major - test with eyes open) - 0(Absent) 8. Sensory Loss (pinprick arms/legs/face) - 0(Normal) 9. Best Language: Aphasia (description/naming/reading) - 0(No aphasia) Initials: ss Signatures: Dispatcher [employer] Fiona Ch RN RN ss Ariela Akhtar RN RN Aiden Anguiano RN RN rv Jackson, Kandis kj1 Rancho Mayes MD MD ec2 Katarzyna Dickinson RN ph
--- NOTE | 2023-04-24 17:19 | P.HP ---
Certification for Inpatient Patient admitted to: Observation With expected LOS: <2 Midnights Patient will require the following post-hospital care: None Practitioner: I am a practitioner with admitting privileges, knowledge of patient current condition, hospital course, and medical plan of care. Services: Services provided to patient in accordance with Admission requirements found in Title 42 Section 412.3 of the Code of Federal Regulations Patient History Date of Service: 04/24/23 Reason for admission: Left-sided weakness History of Present Illness: 63-year-old male with history of insulin-dependent diabetes, chronic pain, hyperlipidemia, dementia presents to the emergency department chief complaint left sided weakness. He and his spouse report that approximately 2 weeks ago he was able to ambulate short distances with a cane, over the course of the last 2 weeks he has become progressively weak, 1 week ago he began to notice specific left upper and lower extremity weakness and has had multiple falls at home the last being on Saturday 04/21. He has not been able to ambulate for the last few days at all. He was evaluated in the emergency room today his labs were significant for a glucose of 357 white blood cell count 12.[address] head without contrast was negative for acute findings, CTA of the head and neck were both ne gative for large vessel occlusion or significant carotid stenosis. ED provider wishes to admit for left-sided weakness, stroke evaluation. Allergies ibuprofen Allergy (Verified 03/31/22 03:37) Itching metformin Allergy (Verified 09/12/20 01:06) Shortness of breath Home Medications: Gabapentin [Neurontin] 800 mg PO TID 09/10/20 Hydrocodone 10/APAP 325 [[place] 10/325*] 1 tab PO QID 09/10/20 Tramadol HCl [Ultram] 50 mg PO TID 09/10/20 Lovastatin [Altoprev] 40 mg PO 1700 11/28/20 Pantoprazole [Protonix Tab*] 40 mg PO DAILY 11/28/20 Tamsulosin [Flomax*] 0.8 mg PO BEDTIME 11/28/20 Amitriptyline [Elavil*] 25 mg PO BEDTIME 04/01/22 Finasteride [Proscar] 5 mg PO DAILY 04/01/22 Glipizide [Glipizide ER] 5 mg PO DAILY 04/01/22 Mirabegron [Myrbetriq] 25 mg PO DAILY 04/01/22 Topiramate [Topamax*] 50 mg PO DAILY 04/01/22 Verapamil HCl [Calan] 40 mg PO DAILY 04/01/22 Losartan Potassium [Cozaar*] 50 mg PO DAILY #30 tab 04/09/22 Metoprolol Tartrate [Lopressor*] 25 mg PO BID 6AM 6PM #60 tab 04/09/22 Insulin Glargine,Hum.rec.anlog [Lantus] 26 units SQ DAILY 06/09/22 Meloxicam [Mobic] 15 mg PO DAILY 06/09/22 - Past Medical/Surgical History Diabetic: Yes -: HTN -: Insulin-dependent diabetes -: HLD -: hepatitis c -: CKD -: Dementia -: Chronic pain -: knee replacement -: right knee pins Psychosocial/ Personal History: - Family History Mother -: Other (see notes) Notes: unknown - patient states no contact > 25 years Father Notes: unknown - patient states no contact > 25 years - Social History Alcohol use: No CD- Drugs: No Caffeine use: No Place of Residence: Home Review of Systems 10-point ROS is otherwise unremarkable General: Weakness Musculoskeletal: Other (Left upper and lower extremity pain) Physical Examination - Physical Exam General: Alert, In no apparent distress, Oriented x3 HEENT: Atraumatic, PERRLA Neck: Supple Respiratory: Clear to auscultation bilaterally, Normal air movement Cardiovascular: Regular rate/rhythm, Normal S1 S2 Gastrointestinal: Normal bowel sounds Musculoskeletal: No tenderness Integumentary: No rashes Neurological: Normal speech, Normal strength at 5/5 x4 extr, Normal affect, Other (NIH score 4) - Studies Laboratory Data (last 24 hrs) 04/24/23 04/24/23 04/24/23 13:57 13:57 11:11 WBC 12.40 H Hgb 12.8 L Hct 39.7 Plt Count 210 PT 11.1 INR 1.01 APTT 32.0 Sodium 134 L Potassium 4.9 BUN 19 H Creatinine 1.34 H Glucose 357 H Assessment and Plan - Plan Assessment: Left-sided weakness, decreased sensation rule out CVA Deconditioning/generalized weakness Diabetes mellitus type 2insulin-dependent with hyperglycemia Chronic pain Dementia GERD Hyperlipidemia Plan: Left-sided weakness, decreased sensation rule out CVA Deconditioning/generalized weakness NIH score is 4 with left upper and lower extremity drift, decreased sensation left upper and lower extremity Onset of symptoms 1 to 2 weeks ago, progressive in nature CT head negative for acute findings CTA head and neck negative for large vessel occlusion/carotid stenosis Neurology consult, aspirin, statin, folic acid, echo, MRI brain ordered PT/OT consults in place Was able to walk with cane short distances 2 weeks ago Not able to ambulate at all now per pt/family Diabetes mellitus type 2insulin-dependent with hyperglycemia ACHS Accu-Chek, sliding scale insulin, A1c in the morning Chronic pain Home medications continued Dementia Obtain and verify home medications, restart as appropriate GERD Hyperlipidemia Continue home meds. DVT PPX: Lovenox Code status: Full Discharge Plan: Home Plan to discharge in: 48 Hours - Advance Directives Does patient have a Living Will: No Does patient have a Durable POA for Healthcare: No - Code Status/Comfort Care Code Status Assessed: Yes (Full code) Critical Care: No Time Spent Managing Pts Care (In Minutes): 55
[2023-04-24] MEDS ORDERED: INSULIN REGULAR (HUMAN) 100 UNIT/ML ONE (17:44)
[2023-04-24] MEDS ORDERED: ASPIRIN 325 MG TAB ONE (17:44)
[2023-04-24] MEDS ORDERED: ONDANSETRON 4 MG/2 ML VIAL IV PRN (19:51)
[2023-04-24 20:02] VITALS: BMI 29.5
[2023-04-24] MEDS: ATORVASTATIN 20 MG TAB PO SCH (21:00)
[2023-04-24] MEDS: TRAMADOL HCL 50 MG TAB PO SCH (21:00)
[2023-04-24] MEDS ORDERED: ATORVASTATIN 20 MG TAB PO ONE (21:00)
[2023-04-24] MEDS ORDERED: TAMSULOSIN 0.4 MG SR CAP PO SCH (21:00)
[2023-04-24] MEDS: TAMSULOSIN 0.4 MG SR CAP PO SCH (21:00)
[2023-04-24] MEDS: INSULIN REGULAR (HUMAN) 100 UNIT/ML SQ SCH (22:18)
[2023-04-24] MEDS: HYDROCODONE/APAP 10/325 TAB PO SCH (22:31)
[2023-04-24] MEDS: NA CHLORIDE 0.9% 1,000 ML IV SCH (22:33)
[2023-04-24] MEDS: GABAPENTIN 400 MG CAP PO SCH (22:55)
[2023-04-25] MEDS: TRAMADOL HCL 50 MG TAB PO SCH ×3 (03:24→20:59)
[2023-04-25 03:27] LABS: Absolute Lymphocytes (CBC) 1.1 K/uL (0.7-4.9); Hematocrit 37.8 % (39.6-49.0); Lymphocytes % 7.9 % (15.3-44.8); MCV 83.2 fL (80-100); MPV 8.9 fL (7.6-11.3); Platelets 202 thou/uL (152-406); RBC Red Blood Cell Count 4.54 M/uL (4.33-5.43)
[2023-04-25 03:46] LABS: Albumin 3.3 g/dL (3.4-5.0); Bilirubin Total 0.6 mg/dL (0.2-1.0); Potassium 4.2 mEq/L (3.5-5.1); Protein, Total 7.9 g/dL (6.4-8.2)
[2023-04-25 05:26] LABS: Specific Gravity > 1.030 (1.005-1.030); Urine Bacteria None Seen /HPF (<20); Urine Bilirubin NEGATIVE (Negative); Urine Blood 1+ (Negative); Urine Clarity Extremely Turbid (Clear); Urine Color Yellow (Yellow); Urine Glucose 4+ (Over) (Negative); Urine Protein 1+ (Negative); Urine RBC >50 /HPF (None Seen); Urine Urobilinogen Normal (Normal); Urine WBC Clump Few /HPF (None Seen); Urine pH 5.5 (5.0-7.0)
[2023-04-25] MEDS: FOLIC ACID 1 MG TABLET PO SCH (08:23)
[2023-04-25] MEDS: HYDROCODONE/APAP 10/325 TAB PO SCH ×4 (08:24→20:19)
[2023-04-25] MEDS: TOPIRAMATE 25 MG TAB PO SCH (08:24)
[2023-04-25] MEDS: MELOXICAM 7.5 MG TAB PO SCH (08:25)
[2023-04-25] MEDS: PANTOPRAZOLE 40MG TABLET PO SCH (08:26)
[2023-04-25] MEDS: ASPIRIN EC 81 MG TAB PO SCH (08:26)
[2023-04-25] MEDS: GABAPENTIN 400 MG CAP PO SCH ×3 (08:26→20:16)
[2023-04-25] MEDS: INSULIN GLARGINE 100 UNIT/ML SQ SCH (08:27)
[2023-04-25] MEDS: ENOXAPARIN 40 MG/0.4 ML SQ SCH (08:28)
[2023-04-25] MEDS: INSULIN REGULAR (HUMAN) 100 UNIT/ML SQ SCH ×4 (08:54→21:00)
--- NOTE | 2023-04-25 09:35 | P.PN ---
Date of Service: 04/25/23 Subjective: ROS: 10 point ROS as noted above, otherwise negative Physical exam GEN: Alert, oriented, NAD HEENT: Normal conjunctiva, sclera anicteric CV: Regular rate and rhythm, no edema Pulm: Nonlabored respirations on room air ABD: Soft, nontender, nondistended MSK: No joint tenderness Integumentary: No rashes Neuro: Normal speech, normal affect, NIH 4 Strength- RUE 4/5, RLE 4/5, LLE 3/5, LUE 3/5 Vitals reviewed Problem List Left-sided weakness, decreased sensation rule out CVA Deconditioning/generalized weakness Diabetes mellitus type 2insulin-dependent with hyperglycemia Chronic pain Dementia GERD Hyperlipidemia Plan: Left-sided weakness, decreased sensation rule out CVA Deconditioning/generalized weakness NIH score is 4 with left upper and lower extremity drift, decreased sensation left upper and lower extremity Onset of symptoms 1 to 2 weeks ago, progressive in nature CT head negative for acute findings CTA head and neck negative for large vessel occlusion/carotid stenosis or other acute findings Neurology consult, aspirin, statin, folic acid, echo, MRI brain ordered PT/OT consults in place Was able to walk with cane short distances 2 weeks ago Not able to ambulate at all now per pt/family Diabetes mellitus type 2insulin-dependent with hyperglycemia ACHS Accu-Chek, sliding scale insulin, A1c in the morning Chronic pain Home medications continued Dementia Obtain and verify home medications, restart as appropriate GERD Hyperlipidemia Continue home meds. VTE: Code: Dispo: Time Spent Managing Pts Care (In Minutes): 35 <Damien Muhammad - Last Filed: 04/25/23 09:32> Patient seen and examined on rounds this morning. Plan of care discussed with DIGITAL MEDIA INTERN Jb. Agree with plan as noted above with the following additions/corrections: Continues with left-sided weakness Reports left shoulder pain as well - check imaging, has had multiple falls MRI tomorrow discussed lab findings / UA, he reports some burning / discomfort with urination for "some time". States he has had trouble retracting his foreskin and it has been "White at the tip". He states his doctor told him this was because of all the sugar he urinates due to being a diabetic. UA noted pyuria, +yeast. On exam, he was unable to retract foreskin, with some whitish discoloration and swelling start antifungal consult urology <Micheal Camarillo - Last Filed: 04/25/23 17:27>
--- NOTE | 2023-04-25 10:27 | RAD REPORT ---
EXAM DESCRIPTION: Juliann Single View04/25/2023 8:33 am CLINICAL HISTORY: Chest pain COMPARISON: 2021 FINDINGS: 3 centimeter right upper lobe opacity Left lung appears clear Heart is normal size. Old left clavicular fracture IMPRESSION: 3 centimeter right upper lobe opacity probably pneumonia
[2023-04-25] MEDS: CEFTRIAXONE 1,000 MG in NA CHLORIDE 0.9% 50 ML IVPB SCH (12:36)
[2023-04-25] MEDS: AZITHROMYCIN IV 500 MG in NA CHLORIDE 0.9% 250 ML IVPB SCH (12:37)
[2023-04-25] MEDS: NA CHLORIDE 0.9% 1,000 ML IV SCH (12:37)
[2023-04-25] MEDS ORDERED: FLUCONAZOLE 100 MG TAB PO ONE (17:24)
--- NOTE | 2023-04-25 18:54 | RAD REPORT ---
EXAM DESCRIPTION: RAD - Shoulder Left 2 View - 04/25/2023 6:24 pm CLINICAL HISTORY: Left shoulder pain FINDINGS: No acute fracture or dislocation is seen. Small bony/calcific density inferior aspect of the glenohumeral joint likely chronic Deformity a distal left clavicle secondary to an old fracture Mild to moderate osteoarthritis glenohumeral and AC joints Osteoporosis
[2023-04-25] MEDS: ATORVASTATIN 20 MG TAB PO SCH (20:17)
[2023-04-25] MEDS: TAMSULOSIN 0.4 MG SR CAP PO SCH (20:18)
[2023-04-26] MEDS ORDERED: HYDROCODONE/APAP 10/325 TAB PO PRN ×2 (02:11→02:13)
[2023-04-26] MEDS: HYDROCODONE/APAP 10/325 TAB PO PRN ×3 (02:28→15:03)
[2023-04-26 02:47] LABS: Absolute Lymphocytes (CBC) 1.1 K/uL (0.7-4.9); Hematocrit 43.7 % (39.6-49.0); Lymphocytes % 12.4 % (15.3-44.8); MCV 84.7 fL (80-100); MPV 9.3 fL (7.6-11.3); Platelets 116 thou/uL (152-406); RBC Red Blood Cell Count 5.16 M/uL (4.33-5.43)
[2023-04-26 02:48] LABS: Albumin 2.5 g/dL (3.4-5.0); Bilirubin Total 0.4 mg/dL (0.2-1.0); Magnesium 1.9 mg/dL (1.6-2.4); Potassium 3.6 mEq/L (3.5-5.1); Protein, Total 6.6 g/dL (6.4-8.2)
[2023-04-26] MEDS ORDERED: PNEUMOCOCCAL VACCINE 0.5 ML IMVAC ONE (08:00)
[2023-04-26] MEDS ORDERED: INFLUENZA VACCINE (for 6+ mo) 0.5 ML DOSE IMVAC ONE (08:00)
[2023-04-26] MEDS ORDERED: LORazepam 2 MG/ML VIAL IV ONE (08:30)
[2023-04-26] MEDS: PANTOPRAZOLE 40MG TABLET PO SCH (08:59)
[2023-04-26] MEDS: AZITHROMYCIN IV 500 MG in NA CHLORIDE 0.9% 250 ML IVPB SCH (09:00)
[2023-04-26] MEDS: FOLIC ACID 1 MG TABLET PO SCH (09:00)
[2023-04-26] MEDS: MELOXICAM 7.5 MG TAB PO SCH (09:00)
[2023-04-26] MEDS: ENOXAPARIN 40 MG/0.4 ML SQ SCH (09:00)
[2023-04-26] MEDS ORDERED: POTASSIUM CL SA 10 MEQ TAB PO ONE (09:00)
[2023-04-26] MEDS: TRAMADOL HCL 50 MG TAB PO SCH ×3 (09:00→21:45)
[2023-04-26] MEDS: TOPIRAMATE 25 MG TAB PO SCH (09:00)
[2023-04-26] MEDS: GABAPENTIN 400 MG CAP PO SCH ×3 (09:01→20:26)
[2023-04-26] MEDS: FLUCONAZOLE 100 MG TAB PO SCH (09:01)
[2023-04-26] MEDS: ASPIRIN EC 81 MG TAB PO SCH (09:01)
[2023-04-26] MEDS: INSULIN REGULAR (HUMAN) 100 UNIT/ML SQ SCH ×4 (09:21→21:00)
[2023-04-26] MEDS: INSULIN GLARGINE 100 UNIT/ML SQ SCH (09:21)
[2023-04-26] MEDS: CEFTRIAXONE 1,000 MG in NA CHLORIDE 0.9% 50 ML IVPB SCH (11:41)
--- NOTE | 2023-04-26 11:44 | P.PN ---
Date of Service: 04/26/23 Subjective: Mildly improving left sided weakness Sill C/O pain to left arm/shoulder seen by PT today Awaiting MRI results ROS: 10 point ROS as noted above, otherwise negative Physical exam GEN: Alert, oriented, NAD HEENT: Normal conjunctiva, sclera anicteric CV: Regular rate and rhythm, no edema Pulm: Nonlabored respirations on room air ABD: Soft, nontender, nondistended MSK: No joint tenderness Integumentary: No rashes Neuro: Normal speech, normal affect, NIH 4 Strength- RUE 4/5, RLE 4/5, LLE 3/5, LUE 3/5 Vitals reviewed Problem List Left-sided weakness, decreased sensation rule out CVA Deconditioning/generalized weakness UTI/RUL pneumonia Balanitis, phimosis, yeast infection Diabetes mellitus type 2insulin-dependent with hyperglycemia Chronic pain Dementia GERD Hyperlipidemia Plan: Left-sided weakness, decreased sensation rule out CVA Deconditioning/generalized weakness NIH score is 4 with left upper and lower extremity drift, decreased sensation left upper and lower extremity Onset of symptoms 1 to 2 weeks ago, progressive in nature CT head negative for acute findings CTA head and neck negative for large vessel occlusion/carotid stenosis or other acute findings Neurology consult, aspirin, statin, folic acid, echo MRI results pending PT/OT consults in place Was able to walk with cane short distances 2 weeks ago Not able to ambulate at all now per pt/family UTI/RUL pneumonia Balanitis, phimosis, yeast infection Continue IV abx with rocephin/zithromax Continue PO diflucan for one week was able to retract foreskin yesterday/perform di-care Diabetes mellitus type 2insulin-dependent with hyperglycemia ACHS Accu-Chek, sliding scale insulin, A1c in the morning Chronic pain Home medications continued Dementia Obtain and verify home medications, restart as appropriate GERD Hyperlipidemia Continue home meds. VTE: lovenox Code: Full Dispo: 48 hours Time Spent Managing Pts Care (In Minutes): 35
--- NOTE | 2023-04-26 12:05 | RAD REPORT ---
EXAM DESCRIPTION: MRI - Brain Wo Cont - 04/26/2023 10:42 am CLINICAL HISTORY: left sided weakness COMPARISON: Head CT 04/24/2023. MRI brain 04/21/2021 TECHNIQUE: Multiplanar multisequence MRI of the brain performed without IV contrast. FINDINGS: Motion artifact somewhat limits evaluation, despite attempts at repeat imaging. No evidence of acute infarct or other diffusion signal abnormality. No evidence of acute intracranial hemorrhage or abnormal extra-axial fluid collections. Ventricular caliber within normal for age. Midline structures are unremarkable. Subtle periventricular and deep white matter T2/FLAIR hyperintensities, nonspecific, but suggestive o f chronic small vessel ischemic changes. No mass effect or midline shift. Major vascular flow voids are preserved. Mastoid air cells show patchy opacification on the right. IMPRESSION: No acute intracranial process. No evidence of ventriculomegaly or mass effect.
[2023-04-26] MEDS: ATORVASTATIN 20 MG TAB PO SCH (20:26)
[2023-04-26] MEDS: TAMSULOSIN 0.4 MG SR CAP PO SCH (20:27)
[2023-04-27 03:30] LABS: Potassium 4.3 mEq/L (3.5-5.1); Sodium Level 135 mEq/L (136-145)
[2023-04-27 03:34] LABS: Albumin 2.5 g/dL (3.4-5.0); BUN Blood Urea Nitrogen 21 mg/dL (7-18); Bicarbonate 21 mEq/L (21-32); Glucose Level 217 mg/dL (74-106); Magnesium 2.1 mg/dL (1.6-2.4)
[2023-04-27 03:37] LABS: AST/SGOT 10 U/L (15-37); Glomerular Filtration Rate 61 ml/min (=/>90)
[2023-04-27 03:38] LABS: Bilirubin Total 0.4 mg/dL (0.2-1.0); Protein, Total 6.8 g/dL (6.4-8.2)
[2023-04-27 03:40] LABS: Alkaline Phosphatase 124 U/L (45-117)
[2023-04-27 03:49] LABS: ALT/SGPT < 10 U/L (16-61)
[2023-04-27 03:59] LABS: Absolute Lymphocytes (CBC) 1.1 K/uL (0.7-4.9); Hematocrit 29.2 % (39.6-49.0); Lymphocytes % 11.3 % (15.3-44.8); MCV 84.1 fL (80-100); MPV 9.3 fL (7.6-11.3); Platelets 195 thou/uL (152-406); RBC Red Blood Cell Count 3.48 M/uL (4.33-5.43)
[2023-04-27] MEDS: HYDROCODONE/APAP 10/325 TAB PO PRN ×4 (06:41→18:12)
[2023-04-27] MEDS: INSULIN REGULAR (HUMAN) 100 UNIT/ML SQ SCH ×4 (07:30→21:39)
[2023-04-27] MEDS: ASPIRIN EC 81 MG TAB PO SCH (08:17)
[2023-04-27] MEDS: TRAMADOL HCL 50 MG TAB PO SCH ×3 (08:17→20:08)
[2023-04-27] MEDS: FOLIC ACID 1 MG TABLET PO SCH (08:17)
[2023-04-27] MEDS: TOPIRAMATE 25 MG TAB PO SCH (08:17)
[2023-04-27] MEDS: FLUCONAZOLE 100 MG TAB PO SCH (08:17)
[2023-04-27] MEDS: MELOXICAM 7.5 MG TAB PO SCH (08:17)
[2023-04-27] MEDS: PANTOPRAZOLE 40MG TABLET PO SCH (08:18)
[2023-04-27] MEDS: GABAPENTIN 400 MG CAP PO SCH ×3 (08:18→20:08)
[2023-04-27] MEDS: CEFTRIAXONE 1,000 MG in NA CHLORIDE 0.9% 50 ML IVPB SCH (08:18)
[2023-04-27] MEDS: ENOXAPARIN 40 MG/0.4 ML SQ SCH (08:18)
[2023-04-27] MEDS: INSULIN GLARGINE 100 UNIT/ML SQ SCH (08:19)
--- NOTE | 2023-04-27 15:33 | P.PN ---
Subjective Date of Service: 04/27/23 Chief Complaint: Left-sided weakness Subjective: No new changes Trever is awake and conversing well this morning. The head MRI is negative for stroke, will obtain an MRA neck for further evaluation. He would like to return home with PT is able, will begin the process today. Review of Systems 10-point ROS is otherwise unremarkable Physical Examination - Vital Signs Temperature: 98.5 F Blood Pressure: 98/64 Pulse: 80 Respirations: 18 Pulse Ox (%): 97 Assessment And Plan - Plan Physical exam GEN: Alert, oriented, NAD HEENT: Normal conjunctiva, sclera anicteric CV: Regular rate and rhythm, no edema Pulm: Nonlabored respirations on room air ABD: Soft, nontender, nondistended MSK: No joint tenderness Integumentary: No rashes Neuro: Normal speech, normal affect, NIH 4 Strength- RUE 4/5, RLE 4/5, LLE 3/5, LUE 3/5 Vitals reviewed Problem List Left-sided weakness, decreased sensation rule out CVA Deconditioning/generalized weakness UTI/RUL pneumonia Balanitis, phimosis, yeast infection Diabetes mellitus type 2insulin-dependent with hyperglycemia Chronic pain Dementia GERD Hyperlipidemia Plan: Left-sided weakness, decreased sensation rule out CVA Deconditioning/generalized weakness NIH score is 4 with left upper and lower extremity drift, decreased sensation left upper and lower extremity Onset of symptoms 1 to 2 weeks ago, progressive in nature CT head negative for acute findings CTA head and neck negative for large vessel occlusion/carotid stenosis or other acute findings Neurology consult, aspirin, statin, folic acid, echo MRI results- negative MRA neck pending PT/OT consults in place Was able to walk with cane short distances 2 weeks ago Not able to ambulate at all now per pt/family UTI/RUL pneumonia Balanitis, phimosis, yeast infection Continue IV abx with rocephin/zithromax Continue PO diflucan for one week was able to retract foreskin yesterday/perform di-care Diabetes mellitus type 2insulin-dependent with hyperglycemia ACHS Accu-Chek, sliding scale insulin, A1c in the morning Chronic pain Home medications continued Dementia Obtain and verify home medications, restart as appropriate GERD Hyperlipidemia Continue home meds. VTE: lovenox Code: Full Dispo: 48 hours Discharge Plan: Other (unclear, HH PT/OT) Time Spent Managing PTS Care (In Minutes): 35
--- NOTE | 2023-04-27 16:26 | RAD REPORT ---
EXAM DESCRIPTION: MRI - MRA Neck W/Wo Cont - 04/27/2023 3:26 pm CLINICAL HISTORY: Stroke symptoms COMPARISON: No comparisons TECHNIQUE: Contrast-enhanced 3D MR angiography of the neck vessels was performed, following intrave nous administration of 17 mL MultiHance. Multiplanar reformats and MIP reconstructions were generated and reviewed. FINDINGS: Motion artifact somewhat limits evaluation. No evidence of dissection. Poor signal to noise ratio along the proximal right common carotid artery, with motion most pronounce d at that level. Caliber attenuation appreciated along the proximal to mid right CCA, see series 8, i mage 34 among others. The left CCA is patent although there is [id number] caliber attenuation j ust proximal to the bulb. Remainder of the common carotid arteries are patent. Short-segment luminal irregularity along the proximal right ICA. A degree of stenosis is appreciated at the left ICA origin, up to moderate, although it is not well evaluated given motion artifact. Some post stenotic dilation is noted. More distally, bilateral internal carotid arteries are patent to th e skullbase. Relatively diminutive right vertebral artery, with no appreciable flow signal at the origin and most proximal segment. Tortuosity of the intradural right vertebral artery distally, with diminutive calib er versus stenosis proximal to the right vertebrobasilar junction. The left vertebral artery is paten t throughout. IMPRESSION: Motion artifact limits evaluation. Most notably very poor signal to noise ratio noted at the right CCA origin and proximal segment. Diminutive right vertebral artery with no appreciable louisa w signal at the origin and most proximal segment. This may in part also relate to motion. No evidence of occlusion. Long segment mild proximal to mid right CCA, and up to moderate most distal left CCA caliber attenuat ion, suggestive of atherosclerotic changes. Up to moderate stenosis appreciated at the left ICA origin, although evaluation is limited by motion, with some poststenotic dilation. Short-segment luminal irregularity of the proximal right ICA.
[2023-04-27] MEDS: ATORVASTATIN 20 MG TAB PO SCH (20:08)
[2023-04-27] MEDS: TAMSULOSIN 0.4 MG SR CAP PO SCH (20:08)
[2023-04-28] MEDS: HYDROCODONE/APAP 10/325 TAB PO PRN ×3 (04:59→16:35)
[2023-04-28] MEDS: INSULIN REGULAR (HUMAN) 100 UNIT/ML SQ SCH ×4 (07:30→21:10)
[2023-04-28] MEDS: GABAPENTIN 400 MG CAP PO SCH ×3 (08:11→21:01)
[2023-04-28] MEDS: FLUCONAZOLE 100 MG TAB PO SCH (08:11)
[2023-04-28] MEDS: MELOXICAM 7.5 MG TAB PO SCH (08:11)
[2023-04-28] MEDS: ENOXAPARIN 40 MG/0.4 ML SQ SCH (08:11)
[2023-04-28] MEDS: FOLIC ACID 1 MG TABLET PO SCH (08:11)
[2023-04-28] MEDS: PANTOPRAZOLE 40MG TABLET PO SCH (08:12)
[2023-04-28] MEDS: INSULIN GLARGINE 100 UNIT/ML SQ SCH (08:12)
[2023-04-28] MEDS: TOPIRAMATE 25 MG TAB PO SCH (08:12)
[2023-04-28] MEDS: TRAMADOL HCL 50 MG TAB PO SCH ×3 (08:12→21:02)
[2023-04-28] MEDS: ASPIRIN EC 81 MG TAB PO SCH (08:12)
--- NOTE | 2023-04-28 15:15 | P.PN ---
Subjective Date of Service: 04/28/23 Chief Complaint: Left-sided weakness Subjective: Doing well 04/27: Trever is awake and conversing well this morning. The head MRI is negative for stroke, will obtain an MRA neck for further evaluation. He would like to return home with PT is able, will begin the process today. 04/28: Trever is sitting up in his wheelchair this morning, He is working with his phone that needed to be charged, He is using both hands but the left hand has some weakness. C spine MRI ordered, Dr. Ospina consulted and agreed to this testing. Review of Systems 10-point ROS is otherwise unremarkable General: Weakness (left sided weakness) Physical Examination - Vital Signs Temperature: 97.6 F Blood Pressure: 131/75 Pulse: 73 Respirations: 16 Pulse Ox (%): 96 - Studies Microbiology Data (last 24 hrs): 04/25/23 04:53 Clean Catch Urine [place] Count - Final >100,000 CFU/ML. 04/25/23 04:53 Clean Catch Urine - Final MIXED TRICE. Assessment And Plan - Plan Physical exam GEN: Alert, oriented, NAD HEENT: Normal conjunctiva, sclera anicteric CV: Regular rate and rhythm, no edema Pulm: Nonlabored respirations on room air ABD: Soft, nontender, nondistended MSK: No joint tenderness Integumentary: No rashes Neuro: Normal speech, normal affect, NIH 4 Strength- RUE 4/5, RLE 4/5, LLE 3/5, LUE 3/5, left sided weakness Vitals reviewed Problem List Left-sided weakness, decreased sensation rule out CVA Deconditioning/generalized weakness UTI/RUL pneumonia Balanitis, phimosis, yeast infection Diabetes mellitus type 2insulin-dependent with hyperglycemia Chronic pain Dementia GERD Hyperlipidemia Plan: Left-sided weakness, decreased sensation rule out CVA Deconditioning/generalized weakness NIH score is 4 with left upper and lower extremity drift, decreased sensation left upper and lower extremity Onset of symptoms 1 to 2 weeks ago, progressive in nature CT head negative for acute findings CTA head and neck negative for large vessel occlusion/carotid stenosis or other acute findings Neurology consult, aspirin, statin, folic acid, echo MRI results- negative MRA neck negative MRI Cspine pending PT/OT consults in place Was able to walk with cane short distances 2 weeks ago Not able to ambulate at all now per pt/family UTI/RUL pneumonia Balanitis, phimosis, yeast infection Continue IV abx with rocephin/zithromax Continue PO diflucan for one week was able to retract foreskin yesterday/perform di-care Diabetes mellitus type 2insulin-dependent with hyperglycemia ACHS Accu-Chek, sliding scale insulin, A1c 13.7 Serum glucose 217 Chronic pain Home medications continued Dementia Obtain and verify home medications, restart as appropriate GERD Hyperlipidemia Continue home meds. VTE: lovenox Code: Full Dispo: 48 hours Discharge Plan: Home Time Spent Managing PTS Care (In Minutes): 35
[2023-04-28] MEDS ORDERED: LORazepam 2 MG/ML VIAL IV ONE (16:16)
--- NOTE | 2023-04-28 17:37 | EKG ---
Test Date: 2023-04-24 Test Time: 14:07:56 Quality Control Lab Tech: SHEFALI MEASUREMENT RESULTS: Intervals: Rate: 97 AL: 154 QRSD: 94 QT: 354 QTc: 449 [place]: P: 34 AL: 154 QRS: -65 T: 44 INTERPRETIVE STATEMENTS: Normal sinus rhythm Left axis deviation Abnormal ECG Compared to ECG 06/09/2022 18:54:04 Left-axis deviation now present Electronically Signed On 04-28-23 17:26:14 LABORATORY CHIEF by Buster Le
--- NOTE | 2023-04-28 19:19 | RAD REPORT ---
EXAM DESCRIPTION: MRI - C Spine W/Wo Cont - 04/28/2023 6:36 pm CLINICAL HISTORY: eval for left sided weakness COMPARISON: 05/01/2021 TECHNIQUE: Sagittal T1-weighted, T2-weighted and T2-FLAIR sequences as well as axial T2 medic sequen ce obtained. Sagittal and axial post contrast T1-weighted images were obtained following 20 ml of Gd contrast material. FINDINGS: 3 millimeters of anterolisthesis of C3 on C4. This is similar to prior. No fractures ident ified. Cerebellar tonsils and mid-line skull base show no suspicious finding. No significant finding at the C1 and C2 levels. C2-3 level: Motion limited. No definite neural foraminal narrowing. No central spinal stenosis. C3-4 level: Motion limited. Anterolisthesis in conjunction with uncovertebral joint hypertrophy and p osterior disc osteophyte complex results in severe central spinal stenosis that has progressed. Quest ionable cord edema. The neural foramina are difficult to evaluate but there is probably at least mode rate stenosis. C4-5 level: Motion limited Posterior disc osteophyte complex uncovertebral joint hypertrophy results in no significant neural foraminal narrowing or central spinal stenosis. C5-6 level: Motion limited Posterior disc osteophyte complex without significant neural foraminal [place]ien[place] rowing or central spinal stenosis. C7-T1 level: No significant findings. No abnormal enhancement on the post-contrast images. IMPRESSION: Motion limited. Progression of degenerative changes at C3-4 resulting in severe central spinal stenosis. Given the clear progression and severe changes at this level, this is presumably the source of patient's symptoms. Note that evaluation for either cord edema or myelomalacia limited by motion. Depending on the acuity of the patient's presentation, either neurosurgical consultation or r eferral is recommended .
[2023-04-28] MEDS: ATORVASTATIN 20 MG TAB PO SCH (21:02)
[2023-04-28] MEDS: TAMSULOSIN 0.4 MG SR CAP PO SCH (21:02)
[2023-04-29] MEDS: HYDROCODONE/APAP 10/325 TAB PO PRN ×4 (01:41→21:40)
[2023-04-29] MEDS: INSULIN REGULAR (HUMAN) 100 UNIT/ML SQ SCH ×4 (08:49→20:44)
[2023-04-29] MEDS: INSULIN GLARGINE 100 UNIT/ML SQ SCH (08:49)
[2023-04-29] MEDS: ASPIRIN EC 81 MG TAB PO SCH (08:51)
[2023-04-29] MEDS: MELOXICAM 7.5 MG TAB PO SCH (08:51)
[2023-04-29] MEDS: GABAPENTIN 400 MG CAP PO SCH ×3 (08:51→20:40)
[2023-04-29] MEDS: TRAMADOL HCL 50 MG TAB PO SCH ×3 (08:52→20:40)
[2023-04-29] MEDS: TOPIRAMATE 25 MG TAB PO SCH (08:52)
[2023-04-29] MEDS: FLUCONAZOLE 100 MG TAB PO SCH (08:52)
[2023-04-29] MEDS: PANTOPRAZOLE 40MG TABLET PO SCH (08:52)
[2023-04-29] MEDS: FOLIC ACID 1 MG TABLET PO SCH (08:52)
[2023-04-29] MEDS: ENOXAPARIN 40 MG/0.4 ML SQ SCH (09:37)
--- NOTE | 2023-04-29 14:27 | P.PN ---
Subjective Date of Service: 04/29/23 Chief Complaint: Left-sided weakness Subjective: No new changes 04/27: Trever is awake and conversing well this morning. The head MRI is negative for stroke, will obtain an MRA neck for further evaluation. He would like to return home with PT is able, will begin the process today. 04/28: Trever is sitting up in his wheelchair this morning, He is working with his phone that needed to be charged, He is using both hands but the left hand has some weakness. C spine MRI ordered, Dr. Ospina consulted and agreed to this testing. 04/29: Trever is awake and eating breakfast in bed. New finding on C spine MRI indicating severe central spinal stenosis to C3-C4. Applying a C collar and consulting Neurosurgeon for best intervention. He still has left sided weakness. Review of Systems Neurological: Weakness (Left sided weakness) Physical Examination - Vital Signs Temperature: 98.5 F Blood Pressure: 126/69 Pulse: 77 Respirations: 18 Pulse Ox (%): 95 Assessment And Plan - Plan Physical exam GEN: Alert, oriented, NAD HEENT: Normal conjunctiva, sclera anicteric CV: Regular rate and rhythm, no edema Pulm: Nonlabored respirations on room air ABD: Soft, nontender, nondistended MSK: No joint tenderness Integumentary: No rashes Neuro: Normal speech, normal affect, NIH 4 Strength- RUE 4/5, RLE 4/5, LLE 3/5, LUE 3/5, left sided weakness Vitals reviewed Problem List Left-sided weakness, decreased sensation rule out CVA Severe central spinal stenosis to C3-C4 Deconditioning/generalized weakness UTI/RUL pneumonia Balanitis, phimosis, yeast infection Diabetes mellitus type 2insulin-dependent with hyperglycemia Chronic pain Dementia GERD Hyperlipidemia Plan: Left-sided weakness, decreased sensation rule out CVA Severe central spinal stenosis to C3-C4 Deconditioning/generalized weakness NIH score is 4 with left upper and lower extremity drift, decreased sensation left upper and lower extremity Onset of symptoms 1 to 2 weeks ago, progressive in nature CT head negative for acute findings CTA head and neck negative for large vessel occlusion/carotid stenosis or other acute findings Neurology consult, aspirin, statin, folic acid, echo MRI results- negative MRA neck negative MRI Cspine Severe central spinal stenosis to C3-C4 PT/OT consults in place Was able to walk with cane short distances 2 weeks ago Not able to ambulate at all now per pt/family Consult Neurosurgery C collar applied UTI/RUL pneumonia Balanitis, phimosis, yeast infection Continue IV abx with rocephin/zithromax Continue PO diflucan for one week was able to retract foreskin yesterday/perform di-care Diabetes mellitus type 2insulin-dependent with hyperglycemia ACHS Accu-Chek, sliding scale insulin, A1c 13.7 Accucheck glucose 152 Chronic pain Home medications continued Dementia Obtain and verify home medications, restart as appropriate GERD Hyperlipidemia Continue home meds. VTE: lovenox Code: Full Dispo: 48 hours Time Spent Managing PTS Care (In Minutes): 35
[2023-04-29] MEDS: TAMSULOSIN 0.4 MG SR CAP PO SCH (20:40)
[2023-04-29] MEDS: ATORVASTATIN 20 MG TAB PO SCH (20:40)
[2023-04-30] MEDS: HYDROCODONE/APAP 10/325 TAB PO PRN ×4 (04:06→20:17)
[2023-04-30] MEDS: INSULIN REGULAR (HUMAN) 100 UNIT/ML SQ SCH ×4 (07:30→21:00)
[2023-04-30] MEDS: MELOXICAM 7.5 MG TAB PO SCH (08:48)
[2023-04-30] MEDS: TOPIRAMATE 25 MG TAB PO SCH (08:48)
[2023-04-30] MEDS: FOLIC ACID 1 MG TABLET PO SCH (08:48)
[2023-04-30] MEDS: GABAPENTIN 400 MG CAP PO SCH ×3 (08:48→20:12)
[2023-04-30] MEDS: PANTOPRAZOLE 40MG TABLET PO SCH (08:48)
[2023-04-30] MEDS: ASPIRIN EC 81 MG TAB PO SCH (08:49)
[2023-04-30] MEDS: FLUCONAZOLE 100 MG TAB PO SCH (08:49)
[2023-04-30] MEDS: TRAMADOL HCL 50 MG TAB PO SCH ×2 (08:49→13:10)
[2023-04-30] MEDS: INSULIN GLARGINE 100 UNIT/ML SQ SCH (08:50)
[2023-04-30] MEDS: ENOXAPARIN 40 MG/0.4 ML SQ SCH (13:11)
--- NOTE | 2023-04-30 16:03 | P.PN ---
Subjective Date of Service: 04/30/23 Chief Complaint: Left-sided weakness No significant change in left-sided weakness. Patient denies any other complaint. There is a report of multiple falls at home. Physical Examination - Vital Signs Temperature: 97.8 F Blood Pressure: 113/62 Pulse: 70 Respirations: 16 Pulse Ox (%): 97 Assessment And Plan - Plan Physical exam GEN: Alert, oriented, NAD HEENT: Normal conjunctiva, sclera anicteric CV: Regular rate and rhythm, no edema Pulm: Clear to auscultation bilaterally, adequate breath sounds bilaterally. ABD: Soft, nontender, nondistended MSK: No joint tenderness Integumentary: No rashes Neuro: Normal speech, normal affect, NIH 4 Strength- RUE 5/5, RLE 5/5, LLE 4/5, LUE 4/5. Vitals reviewed Diagnosis Left-sided weakness, decreased sensation rule out CVA Severe central spinal stenosis to C3-C4 Deconditioning/generalized weakness UTI/RUL pneumonia Balanitis, phimosis, yeast infection Diabetes mellitus type 2insulin-dependent with hyperglycemia Chronic pain Dementia GERD Hyperlipidemia Plan: Left-sided weakness, decreased sensation rule out CVA Severe central spinal stenosis to C3-C4 Deconditioning/generalized weakness NIH score is 4 with left upper and lower extremity drift, decreased sensation left upper and lower extremity CT head negative for acute findings CTA head and neck negative for large vessel occlusion/carotid stenosis or other acute findings Neurology consult, aspirin, statin, folic acid, echo MRI results- negative MRA neck negative MRI Cspine Severe central spinal stenosis to C3-C4 PT/OT consults in place Consulted Neurology. Case discussed with Dr. Ospina who recommended spine surgery for the C-spine central stenosis. Dr. Rip Esteban contacted who recommended transfer to [facility] for surgery. Transferred to [facility] initiated pending bed availability C collar ordered but patient has been noncompliant with it. UTI/RUL pneumonia Balanitis. Continue IV abx with rocephin/zithromax Continue PO diflucan for one week Currently no phimosis Diabetes mellitus type 2insulin-dependent with hyperglycemia ACHS Accu-Chek, sliding scale insulin, A1c 13.7 Accucheck glucose 152 Chronic pain Home medications continued Dementia GERD Hyperlipidemia Continue home meds. VTE: lovenox Code: Full
[2023-04-30] MEDS ORDERED: PNEUMOCOCCAL VACCINE 0.5 ML IMVAC ONE (17:00)
[2023-04-30] MEDS ORDERED: INFLUENZA VACCINE (for 6+ mo) 0.5 ML DOSE IMVAC ONE (17:00)
[2023-04-30] MEDS: TAMSULOSIN 0.4 MG SR CAP PO SCH (20:12)
[2023-04-30] MEDS: ATORVASTATIN 20 MG TAB PO SCH (20:13)
[2023-04-30 22:12] VITALS: BP 97/61; TEMP 97.7
[2023-04-30 22:46] VITALS: O2SAT 98
[2023-05-01] MEDS ORDERED: FINASTERIDE 5 MG TAB PO SCH (09:00)
--- NOTE | 2023-05-02 18:33 | P.DS ---
Admission Date: 04/26/23 Discharge Date: 04/30/23 Disposition: TRANSFER TO [facility] Reason for Admission: Left-sided weakness Brief History of Present Illness: 63-year-old male with history of insulin-dependent diabetes, chronic pain, hyperlipidemia, dementia presented to the emergency department chief complaint left sided weakness. He and his spouse reported that approximately 2 weeks ago he was able to ambulate short distances with a cane, over the course of the last 2 weeks he has become progressively weak, 1 week ago he began to notice specific left upper and lower extremity weakness and has had multiple falls at home the last being on Saturday 04/21. He has not been able to ambulate for the last few days at all. He was evaluated in the emergency room today his labs were significant for a glucose of 357 white blood cell count 12.[address] head without contrast was negative for acute findings, CTA of the head and neck were both negative for large vessel occlusion or significant carotid stenosis. Patient was hospitalized for further evaluation and management. Hospital Course: Diagnosis Left-sided weakness, decreased sensation rule out CVA Severe central spinal stenosis to C3-C4 Deconditioning/generalized weakness UTI/RUL pneumonia Balanitis, phimosis, yeast infection Diabetes mellitus type 2insulin-dependent with hyperglycemia Chronic pain Dementia GERD Hyperlipidemia Patient admitted to the medical floor following medical problems addressed Left-sided weakness, decreased sensation rule out CVA Severe central spinal stenosis to C3-C4 Deconditioning/generalized weakness NIH score 4 with left upper and lower extremity drift, decreased sensation left upper and lower extremity CT head negative for acute findings CTA head and neck negative for large vessel occlusion/carotid stenosis or other acute findings Neurology consult, aspirin, statin, folic acid, echo MRI results- negative MRA neck negative MRI Cspine Severe central spinal stenosis to C3-C4 PT/OT consults in place Consulted Neurology. Case discussed with Dr. Ospina who recommended spine surgery for the C-spine central stenosis. Dr. Rip Esteban contacted who recommended transfer to [facility] for surgery. Transferr to [facility] initiated patient accepted for transfer. UTI/RUL pneumonia Balanitis. Treated with IV abx with rocephin/zithromax Treated with PO diflucan.k No phimosis noted. Diabetes mellitus type 2insulin-dependent with hyperglycemia ACHS Accu-Chek, sliding scale insulin, A1c 13.7 Accucheck glucose 152 Chronic pain Home medications continued Dementia GERD Hyperlipidemia Continue home meds. Vital Signs/Physical Exam: Temp Pulse Resp BP Pulse Ox 97.7 F 66 18 97/61 95 04/30/23 20:00 04/30/23 20:00 04/30/23 20:17 04/30/23 20:00 04/30/23 20:17 General: Alert, In no apparent distress, Oriented x3 HEENT: Mucous membr. moist/pink Neck: JVD not distended Respiratory: Clear to auscultation bilaterally, Normal air movement Cardiovascular: Regular rate/rhythm, Normal S1 S2 Gastrointestinal: Normal bowel sounds, Soft and benign, Non-distended Musculoskeletal: No tenderness Neurological: Other (Left-sided weakness) Laboratory Data at Discharge: WBC 10.00 thou/uL (4.3-10.9) 04/27/23 02:10 Hgb 9.6 g/dL (13.6-17.9) L D 04/27/23 02:10 Hct 29.2 % (39.6-49.0) L 04/27/23 02:10 Plt Count 195 thou/uL (152-406) D 04/27/23 02:10 PT 11.1 SECONDS (9.5-12.5) 04/24/23 13:57 INR 1.01 04/24/23 13:57 APTT 32.0 SECONDS (24.3-36.9) 04/24/23 13:57 Sodium 135 mEq/L (136-145) L 04/27/23 02:10 Potassium 4.3 mEq/L (3.5-5.1) D 04/27/23 02:10 BUN 21 mg/dL (7-18) H 04/27/23 02:10 Creatinine 1.30 mg/dL (0.70-1.30) 04/27/23 02:10 Glucose 217 mg/dL (74-106) H 04/27/23 02:10 Magnesium 2.1 mg/dL (1.6-2.4) 04/27/23 02:10 Total Bilirubin 0.4 mg/dL (0.2-1.0) 04/27/23 02:10 AST 10 U/L (15-37) L 04/27/23 02:10 ALT < 10 U/L (16-61) L 04/27/23 02:10 Alkaline Phosphatase 124 U/L (45-117) H D 04/27/23 02:10 Triglycerides 131 mg/dL (<150) 04/25/23 03:14 Cholesterol 119 mg/dL (<200) 04/25/23 03:14 HDL Cholesterol 51 mg/dL (40-60) 04/25/23 03:14 Cholesterol/HDL Ratio 2.33 04/25/23 03:14 Home Medications: Gabapentin [Neurontin] 800 mg PO TID 09/10/20 Hydrocodone 10/APAP 325 [[place] 10/325*] 1 tab PO QID 09/10/20 Tramadol HCl [Ultram] 50 mg PO TID 09/10/20 Lovastatin [Altoprev] 40 mg PO 1700 11/28/20 Pantoprazole [Protonix Tab*] 40 mg PO DAILY 11/28/20 Tamsulosin [Flomax*] 0.8 mg PO BEDTIME 11/28/20 Amitriptyline [Elavil*] 25 mg PO BEDTIME 04/01/22 Finasteride [Proscar] 5 mg PO DAILY 04/01/22 Glipizide [Glipizide ER] 5 mg PO DAILY 04/01/22 Mirabegron [Myrbetriq] 25 mg PO DAILY 04/01/22 Topiramate [Topamax*] 50 mg PO DAILY 04/01/22 Verapamil HCl [Calan] 40 mg PO DAILY 04/01/22 Losartan Potassium [Cozaar*] 50 mg PO DAILY #30 tab 04/09/22 Metoprolol Tartrate [Lopressor*] 25 mg PO BID 6AM 6PM #60 tab 04/09/22 Insulin Glargine,Hum.rec.anlog [Lantus] 26 units SQ DAILY 06/09/22 Meloxicam [Mobic] 15 mg PO DAILY 06/09/22 Followup: Onur Hernandez MD [Primary Care Provider] - Time spent managing pt's care (in minutes): 33
== END 2023-04-30 21:50 | disposition short-term general hospital (02) | DRG 64 ==
LOC: ER 13:22 → OBSVTOIN 16:55 → ERHOLD 16:55 → INTOOBSV 16:55 → 2ND 18:52 → OBSVTOIN 04-26 10:44
PROVIDERS: ADMIT Hospitalist; ATTEND Internal Medicine
DX: I63.9 Cerebral infarction, unspecified (principal); J18.9 Pneumonia, unspecified organism; G81.94 Hemiplegia, unspecified affecting left nondominant side; N39.0 Urinary tract infection, site not specified; E78.00 Pure hypercholesterolemia, unspecified; G89.29 Other chronic pain; I12.9 Hypertensive chronic kidney disease with stage 1 through stage 4 chronic kidney disease, or unspecified chronic kidney disease; N18.9 Chronic kidney disease, unspecified; E11.22 Type 2 diabetes mellitus with diabetic chronic kidney disease; E11.65 Type 2 diabetes mellitus with hyperglycemia; E11.40 Type 2 diabetes mellitus with diabetic neuropathy, unspecified; K21.9 Gastro-esophageal reflux disease without esophagitis; N48.1 Balanitis; M48.02 Spinal stenosis, cervical region; K76.0 Fatty (change of) liver, not elsewhere classified; J45.909 Unspecified asthma, uncomplicated; F03.90 Unspecified dementia, unspecified severity, without behavioral disturbance, psychotic disturbance, mood disturbance, and anxiety; R29.701 NIHSS score 1; Z88.5 Allergy status to narcotic agent; Z79.4 Long term (current) use of insulin; Z88.8 Allergy status to other drugs, medicaments and biological substances; Z91.81 History of falling; Z79.899 Other long term (current) drug therapy; Z96.652 Presence of left artificial knee joint
CPT/HCPCS: 36415; 70450; 70496; 70498; 70549; 70551; 71045; 72156; 80048; 80053; 80061; 81001; 82947; 83036; 83735; 84484; 85025; 85610; 85730; 87086; 87088; 93005; 96372; 97110; 97116; 97161; 97530; 99285; A9577; G0378; J0696; J1650; J1815; J7030; J7050; Q9967

== ENCOUNTER 2023-05-08 23:15 | Inpatient (IN) | payer OTHER ==
--- OUTSIDE RECORDS SUMMARY | 2023-05-08 23:34 | XMS REPORT | Continuity of Care Document ---
:1960 Author Organization [facility] t Address [address] [place] [address] [place] [id number] Care Team Providers Name Role Phone Juan Carlos Esaclera MD Primary Care Physician [phone] Bhanu Kohler Attending Clinician Unavailable ASHLEIGH LEE Attending Clinician Unavailable Juan Carlos Escalera MD Attending Clinician JUAN CARLOS ESCALERA Attending Clinician Unavailable GREGG BORJAS Attending Clinician Unavailable Doctor Unassigned, Loiza Attending Clinician Unavailable Geni Boles MD Attending Clinician SOLANGE GONZALEZ Attending Clinician Unavailable GENI BOLES Attending Clinician Unavailable GENI BOLES Attending Clinician Unavailable Sarah Nguyen Attending Clinician SARAH STEWART Attending Clinician Unavailable Lab, Ang - Db Attending Clinician Unavailable Chelsie Wall MD Attending Clinician REJI STOLL Attending Clinician Unavailable Reji Stoll PA-C Attending Clinician Unknown, Attending Attending Clinician Unavailable Ileana Pandey MD Attending Clinician [facility] Sleep Lab Bed Attending Clinician Unavailable Yadira Fregoso RN Attending Clinician Unavailable [facility] Attending Clinician Unavailable Corey Lantigua MD Attending Clinician Grace Canseco MD Attending Clinician ILEANA PANDEY Attending Clinician Unavailable Maddie Russo PA-C Attending Clinician Yancy Blair MD Attending Clinician YANCY BLAIR Attending Clinician Unavailable MADDIE RUSSO Attending Clinician Unavailable Rafita Bui MD Attending Clinician CAROLINA ALBA Admitting Clinician Unavailable ASHLEIGH LEE Admitting Clinician Unavailable YANCY BLAIR Admitting Clinician Unavailable Payers Payer Name Policy Type Policy Number Effective Date Expiration Date Sarmad millard [facility] Dual 53 [id number] 2020 [facility] Complete MCR 00:00:00 - [facility] Problems Condition Condition Condition Status Onset Resolution Last Treating Co mments Source Name Details Category Date Date Treatment Clinician Date ROLDAN ROLDAN Disease Active Univers (obstructi (obstructi 2-15 it y of ve sleep ve sleep 00:00: [place] apnea) apnea) 00 [facility] Back pain Back pain Disease Active Uni vers 8-21 ity of 00:00: [place] 00 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 Inflammati Inflammati Disease Active 2017-06 U nivers on of on of 2-17 ity of sacroiliac [place] joint 00 [facility] Spinal Spinal Disease Active 2017-06 Univers stenosis stenosis 2-17 ity of [place] [facility] Chronic Chronic Disease Active 2017-06 Univers pain pain 2-17 ity of disorder disorder 00:00: [address] [id number] Posthitis Problem Comm on [facility] [id number] OAB Problem Common (overactiv Spirit e bladder) [facility] Kidney Calcium Problem Common stone kidney [facility] stones [facility] [id number] Urge Problem Common incontinen Spirit ce - [facility] [id number] BPH loc w Problem Com mon urin Spirit obs/LUTS - [facility] Allergies, Adverse Reactions, Alerts Allergy Allergy Status Severity Reaction(s) Onset Inactive Treating Comm ents Source Name Type Date Date Clinician NO KNOWN Drug Active Univers ALLERGIE Class ity of [facility] [place] [facility] Social History Social Habit Start Date Stop Date Quantity Comments Source History of tobacco Current smoker Un iversity of use [facility] Gender identity Universit y [facility] Alcohol intake 2023-03-31 2023-03-31 Ex-drinker [facility] 00:00:00 00:00:00 (finding) [facility] History of Social 2022-12-09 2022-12-09 Univers ity of function 00:00:00 00:00:00 [facility] Exposure to 2022-11-28 2022-12-08 Not sure [facility] SARS-CoV-2 (event) 00:00:00 21:54:00 [facility] Tobacco use and 2022-07-28 2022-07-28 Smokeless Universit y of exposure 00:00:00 00:00:00 tobacco non-user [facility] Smoking Status Start Date Stop Date Source Ex-smoker 2022-07-28 00:00:00 2022-07-28 00:00:00 Universi ty [facility] Medications Ordered Filled Start Stop Current Ordering Indication Dosage Frequency Signature Comments Components Source Medication Medication Date Date Medication? Clinician (SIG) Name Name TOPIRAMATE 2022-06 Yes [id number] TAKE 1 U nivers 50 mg 1-09 TABLET BY ity of tablet 00:00: MOUTH EVERY DAY Medical Branch TOPIRAMATE 2023-1 Yes [id number] TAKE 1 U nivers 50 mg 1-09 TABLET BY ity of tablet 00:00: MOUTH EVERY DAY Medical Branch TOPIRAMATE 2023-1 Yes [id number] TAKE 1 U nivers 50 mg 1-09 TABLET BY ity of tablet 00:00: MOUTH EVERY DAY Medical Branch TOPIRAMATE 2023-1 Yes [id number] TAKE 1 U nivers 50 mg 1-09 TABLET BY ity of tablet 00:00: MOUTH EVERY DAY Medical Branch TOPIRAMATE 2023-1 Yes [id number] TAKE 1 U nivers 50 mg 1-09 TABLET BY ity of tablet 00:00: MOUTH EVERY DAY Medical Branch TOPIRAMATE 3-1 Yes [id number] TAKE 1 U nivers 50 mg 1-09 TABLET BY ity of tablet 00:00: MOUTH EVERY DAY Medical Branch ULTICARE 2022-1 Yes [id number] USE WITH U nivers PEN NEEDLE 0-24 LANTUS PEN ity of 31 gauge x 00:00: 10/27" [place] 00 Medical Branch FREESTYLE 202- Yes [id number] USE Un [place] DEBORAH 2 0-24 DIRECTED ity of SENSOR Kit 00:00: Medical Branch ULTICARE 2023- Yes [id number] USE WITH U nivers PEN NEEDLE 0-24 LANTUS PEN ity of 31 gauge x 00:00: 10/27" [place] 00 Medical Branch FREESTYLE 2023- Yes [id number] USE Un [place] DEBORAH 2 0-24 DIRECTED ity of SENSOR Kit 00:00: Medical Branch TRUEPLUS 2023-1 Yes USE 3 Univers LANCETS 30 0-24 TIMES ity of gauge Misc 00:00: DAILY [place] as 00 DIRECTED Medical Branch ULTICARE 2023-1 Yes [id number] USE WITH U nivers PEN NEEDLE 0-24 LANTUS PEN ity of 31 gauge x 00:00: 10/27" [place] 00 Medical Branch FREESTYLE 2023-1 Yes [id number] USE Un [place] DEBORAH 2 0-24 DIRECTED ity of SENSOR Kit 00:00: Medical Branch TRUEPLUS 2023-1 Yes USE 3 Univers LANCETS 30 0-24 TIMES ity of gauge Misc 00:00: DAILY [place] 00 DIRECTED Medical Branch ULTICARE 2023-1 Yes [id number] USE WITH U nivers PEN NEEDLE 0-24 LANTUS PEN ity of 31 gauge x 00:00: 10/27" [place] 00 Medical Branch FREESTYLE 2022- Yes [id number] USE Un [place] DEBORAH 2 0-24 DIRECTED ity of SENSOR Kit 00:00: Medical Branch TRUEPLUS 2023-1 Yes USE 3 Univers LANCETS 30 0-24 TIMES ity of gauge Misc 00:00: DAILY [place] 00 DIRECTED Medical Branch ULTICARE 2022-1 Yes [id number] USE WITH U nivers PEN NEEDLE 0-24 LANTUS PEN ity of 31 gauge x 00:00: 10/27" [place] 00 Medical Branch FREESTYLE 2022- Yes [id number] USE Un [place] DEBORAH 2 0-24 DIRECTED ity of SENSOR Kit 00:00: Medical Branch TRUEPLUS 2022- Yes USE 3 Univers LANCETS 30 0-24 TIMES ity of gauge Misc 00:00: DAILY [place] as 00 DIRECTED Medical Branch ULTICARE 2022-1 Yes [id number] USE WITH U nivers PEN NEEDLE 0-24 LANTUS PEN ity of 31 gauge x 00:00: 10/27" [place] 00 Medical Branch FREESTYLE 2022- Yes [id number] USE Un [place] DEBORAH 2 0-24 DIRECTED ity of SENSOR Kit 00:00: Medical Branch TRUEPLUS 2022-1 Yes USE 3 Univers LANCETS 30 0-24 TIMES ity of gauge Misc 00:00: DAILY [place] 00 DIRECTED Medical Branch ULTICARE 2022-1 Yes [id number] USE WITH U nivers PEN NEEDLE 0-24 LANTUS PEN ity of 31 gauge x 00:00: 10/27" [place] 00 Medical Branch FREESTYLE 2022- Yes [id number] USE Un [place] DEBORAH 2 0-24 DIRECTED ity of SENSOR Kit 00:00: Medical Branch TRUEPLUS 2022-1 Yes USE 3 Univers LANCETS 30 0-24 TIMES ity of gauge Misc 00:00: DAILY [place] 00 DIRECTED Medical Branch ULTICARE 2022-1 Yes [id number] USE WITH U nivers PEN NEEDLE 0-24 LANTUS PEN ity of 31 gauge x 00:00: 10/27" [place] 00 Medical Branch FREESTYLE 202- Yes [id number] USE Un [place] DEBORAH 2 0-24 DIRECTED ity of SENSOR Kit 00:00: Medical Branch TRUEPLUS 2022- Yes USE 3 Univers LANCETS 30 0-24 TIMES ity of gauge Misc 00:00: DAILY [place] 00 DIRECTED Medical Branch ULTICARE 2022- Yes [id number] USE WITH U nivers PEN NEEDLE 0-24 LANTUS PEN ity of 31 gauge x 00:00: 10/27" [place] 00 Medical Branch FREESTYLE 2022- Yes [id number] USE Un [place] DEBORAH 2 0-24 DIRECTED ity of SENSOR Kit 00:00: Medical Branch TRUEPLUS 2022- Yes USE 3 Univers LANCETS 30 0-24 TIMES ity of gauge Misc 00:00: DAILY [place] 00 DIRECTED Medical Branch ULTICARE 2022- Yes [id number] USE WITH U nivers PEN NEEDLE 0-24 LANTUS PEN ity of 31 gauge x 00:00: 10/27" [place] 00 Medical Branch FREESTYLE 2022- Yes [id number] USE Un [place] DEBORAH 2 0-24 DIRECTED ity of SENSOR Kit 00:00: Medical Branch TRUEPLUS 2022- Yes USE 3 Univers LANCETS 30 0-24 TIMES ity of gauge Misc 00:00: DAILY [place] as 00 DIRECTED Medical Branch SOLIFENACIN 2023-1 Yes [id number] 5mg TAKE 1 Univers 5 mg tablet 0-03 TABLET BY ity of 00:00: MOUTH 00 EVERY DAY Medical Branch SOLIFENACIN 2023-1 Yes [id number] 5mg TAKE 1 Univers 5 mg tablet 0-03 TABLET BY ity of 00:00: MOUTH EVERY DAY Medical Branch SOLIFENACIN 2023-1 Yes [id number] 5mg TAKE 1 Univers 5 mg tablet 0-03 TABLET BY ity of 00:00: MOUTH EVERY DAY Medical Branch SOLIFENACIN 2023-1 Yes [id number] 5mg TAKE 1 Univers 5 mg tablet 0-03 TABLET BY ity of 00:00: MOUTH [place] EVERY DAY Medical Branch SOLIFENACIN 2022-1 Yes [id number] 5mg TAKE 1 Univers 5 mg tablet 0-03 TABLET BY ity of 00:00: MOUTH [place] 00 EVERY DAY Medical Branch SOLIFENACIN 2023-1 Yes [id number] 5mg TAKE 1 Univers 5 mg tablet 0-03 TABLET BY ity of 00:00: MOUTH [place] EVERY DAY Medical Branch SOLIFENACIN 3-1 Yes [id number] 5mg TAKE 1 Univers 5 mg tablet 0-03 TABLET BY ity of 00:00: MOUTH [place] EVERY DAY Medical Branch SOLIFENACIN 3-1 Yes [id number] 5mg TAKE 1 Univers 5 mg tablet 0-03 TABLET BY ity of 00:00: MOUTH [place] EVERY DAY Medical Branch SOLIFENACIN 3-1 Yes [id number] 5mg TAKE 1 Univers 5 mg tablet 0-03 TABLET BY ity of 00:00: MOUTH [place] EVERY DAY Medical Branch SOLIFENACIN 3-1 Yes [id number] 5mg TAKE 1 Univers 5 mg tablet 0-03 TABLET BY ity of 00:00: MOUTH [place] EVERY DAY Medical Branch SOLIFENACIN 3-1 Yes [id number] 5mg TAKE 1 Univers 5 mg tablet 0-03 TABLET BY ity of 00:00: MOUTH [place] EVERY DAY Medical Branch SOLIFENACIN 3-1 Yes [id number] 5mg TAKE 1 Univers 5 mg tablet 0-03 TABLET BY ity of 00:00: MOUTH [place] EVERY DAY Medical Branch SOLIFENACIN 3-1 Yes [id number] 5mg TAKE 1 Univers 5 mg tablet 0-03 TABLET BY ity of 00:00: MOUTH [place] EVERY DAY Medical Branch SOLIFENACIN 3-1 Yes [id number] 5mg TAKE 1 Univers 5 mg tablet 0-03 TABLET BY ity of 00:00: MOUTH [place] EVERY DAY Medical Branch SOLIFENACIN 3-1 Yes [id number] 5mg TAKE 1 Univers 5 mg tablet 0-03 TABLET BY ity of 00:00: MOUTH [place] EVERY DAY Medical Branch SOLIFENACIN 3-1 Yes [id number] 5mg TAKE 1 Univers 5 mg tablet 0-03 TABLET BY ity of 00:00: MOUTH [place] EVERY DAY Medical Branch SOLIFENACIN 3-1 Yes [id number] 5mg TAKE 1 Univers 5 mg tablet 0-03 TABLET BY ity of 00:00: MOUTH [place] EVERY DAY Medical Branch SOLIFENACIN 2023-0 Yes 5mg TAKE 1 Univ ers 5 mg tablet 9-15 TABLET BY ity of 00:00: MOUTH [place] 00 EVERY DAY Medical Branch SOLIFENACIN 2023-0 Yes 5mg TAKE 1 Univ ers 5 mg tablet 9-15 TABLET BY ity of 00:00: MOUTH [place] 00 EVERY DAY Medical Branch SOLIFENACIN 2023-0 Yes 5mg TAKE 1 Univ ers 5 mg tablet 9-15 TABLET BY ity of 00:00: MOUTH [place] EVERY DAY Medical Branch SOLIFENACIN 2023-0 Yes 5mg TAKE 1 Univ ers 5 mg tablet 9-15 TABLET BY ity of 00:00: MOUTH [place] 00 EVERY DAY Medical Branch SOLIFENACIN 2023-0 Yes 5mg TAKE 1 Univ ers 5 mg tablet 9-15 TABLET BY ity of 00:00: MOUTH [place] EVERY DAY Medical Branch SOLIFENACIN 2023-0 2023- No 5mg TAKE 1 Uni vers 5 mg tablet 9-15 10-03 TABLET BY it y of 00:00: 00:00 MOUTH [place] 00 :00 EVERY DAY Medical Branch TOPIRAMATE 2023-0 Yes [id number] TAKE 1 U nivers 50 mg 8-29 TABLET BY ity of tablet 00:00: MOUTH [place] 00 EVERY DAY Medical Branch TOPIRAMATE 2023-0 Yes [id number] TAKE 1 U nivers 50 mg 8-29 TABLET BY ity of tablet 00:00: [facility] 00 EVERY DAY Medical Branch TOPIRAMATE 2023-0 Yes [id number] TAKE 1 U nivers 50 mg 8-29 TABLET BY ity of tablet 00:00: [facility] 00 EVERY DAY Medical Branch TOPIRAMATE 2023-0 Yes [id number] TAKE 1 U nivers 50 mg 8-29 TABLET BY ity of tablet 00:00: MOUTH [place] 00 EVERY DAY Medical Branch TOPIRAMATE 2023-0 Yes [id number] TAKE 1 U nivers 50 mg 8-29 TABLET BY ity of tablet 00:00: [facility] 00 EVERY DAY Medical Branch TOPIRAMATE 2023-0 Yes [id number] TAKE 1 U nivers 50 mg 8-29 TABLET BY ity of tablet 00:00: [facility] 00 EVERY DAY Medical Branch TOPIRAMATE 2023-0 Yes [id number] TAKE 1 U nivers 50 mg 8-29 TABLET BY ity of tablet 00:00: [facility] 00 EVERY DAY Medical Branch TOPIRAMATE 2023-0 Yes [id number] TAKE 1 U nivers 50 mg 8-29 TABLET BY ity of tablet 00:00: MOUTH [place] 00 EVERY DAY Medical Branch TOPIRAMATE 2023-0 Yes [id number] TAKE 1 U nivers 50 mg 8-29 TABLET BY ity of tablet 00:00: MOUTH [place] 00 EVERY DAY Medical Branch TOPIRAMATE 2023-0 Yes [id number] TAKE 1 U nivers 50 mg 8-29 TABLET BY ity of tablet 00:00: MOUTH [place] 00 EVERY DAY Medical Branch TOPIRAMATE 2023-0 Yes [id number] TAKE 1 U nivers 50 mg 8-29 TABLET BY ity of tablet 00:00: MOUTH [place] 00 EVERY DAY Medical Branch TOPIRAMATE 3-0 Yes [id number] TAKE 1 U nivers 50 mg 8-29 TABLET BY ity of tablet 00:00: MOUTH [place] 00 EVERY DAY Medical Branch TOPIRAMATE 2023-0 Yes [id number] TAKE 1 U nivers 50 mg 8-29 TABLET BY ity of tablet 00:00: MOUTH [place] 00 EVERY DAY Medical Branch TOPIRAMATE 3-0 Yes [id number] TAKE 1 U nivers 50 mg 8-29 TABLET BY ity of tablet 00:00: MOUTH [place] 00 EVERY DAY Medical Branch TOPIRAMATE 3-0 Yes [id number] TAKE 1 U nivers 50 mg 8-29 TABLET BY ity of tablet 00:00: MOUTH [place] 00 EVERY DAY Medical Branch TOPIRAMATE 2023-0 Yes [id number] TAKE 1 U nivers 50 mg 8-29 TABLET BY ity of tablet 00:00: [facility] 00 EVERY DAY Medical Branch TOPIRAMATE 2023-0 Yes [id number] TAKE 1 U nivers 50 mg 8-29 TABLET BY ity of tablet 00:00: MOUTH [place] 00 EVERY DAY Medical Branch TOPIRAMATE 2023-0 Yes [id number] TAKE 1 U nivers 50 mg 8-29 TABLET BY ity of tablet 00:00: MOUTH [place] 00 EVERY DAY Medical Branch TOPIRAMATE 2023-0 2023- No [id number] TAKE 1 Univers 50 mg 8-29 11-09 TABLET BY ity of tablet 00:00: 00:00 MOUTH [place] 00 :00 EVERY DAY Medical Branch rivastigmin 2023-0 Yes [id number] 4.5mg Take 1 Univers e tartrate 7-24 capsule by ity of 4.5 mg 00:00: mouth [place] capsule 00 every Medical morning Branch and evening. memantine 2023-0 Yes [id number] 10mg Take 1 Un [place] 10 mg 7-24 tablet by ity of tablet 00:00: mouth in [place] 00 the Medical morning. Branch rivastigmin 2023-0 Yes [id number] 4.5mg Take 1 Univers e tartrate 7-24 capsule by ity of 4.5 mg 00:00: mouth [place] capsule 00 every Medical morning Branch and evening. memantine 2023-0 Yes [id number] 10mg Take 1 Un [place] 10 mg 7-24 tablet by ity of tablet 00:00: mouth in [place] 00 the Medical morning. Branch rivastigmin 2023-0 Yes [id number] 4.5mg Take 1 Univers e tartrate 7-24 capsule by ity of 4.5 mg 00:00: mouth [place] capsule 00 every Medical morning Branch and evening. memantine 2023-0 Yes [id number] 10mg Take 1 Un [place] 10 mg 7-24 tablet by ity of tablet 00:00: mouth in [place] 00 the Medical morning. Branch rivastigmin 3-0 Yes [id number] 4.5mg Take 1 Univers e tartrate 7-24 capsule by ity of 4.5 mg 00:00: mouth [place] capsule 00 every Medical morning Branch and evening. memantine 3-0 Yes [id number] 10mg Take 1 Un [place] 10 mg 7-24 tablet by ity of tablet 00:00: mouth in [place] 00 the Medical morning. Branch rivastigmin 3-0 Yes [id number] 4.5mg Take 1 Univers e tartrate 7-24 capsule by ity of 4.5 mg 00:00: mouth [place] capsule 00 every Medical morning Branch and evening. memantine 2023-0 Yes [id number] 10mg Take 1 Un [place] 10 mg 7-24 tablet by ity of tablet 00:00: mouth in [place] 00 the Medical morning. Branch rivastigmin 2023-0 Yes [id number] 4.5mg Take 1 Univers e tartrate 7-24 capsule by ity of 4.5 mg 00:00: mouth [place] capsule 00 every Medical morning Branch and evening. memantine 2023-0 Yes [id number] 10mg Take 1 Un [place] 10 mg 7-24 tablet by ity of tablet 00:00: mouth in [place] 00 the Medical morning. Branch rivastigmin 2023-0 Yes [id number] 4.5mg Take 1 Univers e tartrate 7-24 capsule by ity of 4.5 mg 00:00: mouth [place] capsule 00 every Medical morning Branch and evening. memantine 2023-0 Yes [id number] 10mg Take 1 Un [place] 10 mg 7-24 tablet by ity of tablet 00:00: mouth in [place] 00 the Medical morning. Branch rivastigmin 2023-0 Yes [id number] 4.5mg Take 1 Univers e tartrate 7-24 capsule by ity of 4.5 mg 00:00: mouth [place] capsule 00 every Medical morning Branch and evening. memantine 2023-0 Yes [id number] 10mg Take 1 Un [place] 10 mg 7-24 tablet by ity of tablet 00:00: mouth in [place] 00 the Medical morning. Branch rivastigmin 3-0 Yes [id number] 4.5mg Take 1 Univers e tartrate 7-24 capsule by ity of 4.5 mg 00:00: mouth [place] capsule 00 every Medical morning Branch and evening. memantine 3-0 Yes [id number] 10mg Take 1 Un [place] 10 mg 7-24 tablet by ity of tablet 00:00: mouth in [place] 00 the Medical morning. Branch rivastigmin 3-0 Yes [id number] 4.5mg Take 1 Univers e tartrate 7-24 capsule by ity of 4.5 mg 00:00: mouth [place] capsule 00 every Medical morning Branch and evening. memantine 3-0 Yes [id number] 10mg Take 1 Un [place] 10 mg 7-24 tablet by ity of tablet 00:00: mouth in [place] 00 the Medical morning. Branch rivastigmin 3-0 Yes [id number] 4.5mg Take 1 Univers e tartrate 7-24 capsule by ity of 4.5 mg 00:00: mouth [place] capsule 00 every Medical morning Branch and evening. memantine 2023-0 Yes [id number] 10mg Take 1 Un [place] 10 mg 7-24 tablet by ity of tablet 00:00: mouth in [place] 00 the Medical morning. Branch rivastigmin 2023-0 Yes [id number] 4.5mg Take 1 Univers e tartrate 7-24 capsule by ity of 4.5 mg 00:00: mouth [place] capsule 00 every Medical morning Branch and evening. memantine 2023-0 Yes [id number] 10mg Take 1 Un [place] 10 mg 7-24 tablet by ity of tablet 00:00: mouth in [place] 00 the Medical morning. Branch rivastigmin 3-0 Yes [id number] 4.5mg Take 1 Univers e tartrate 7-24 capsule by ity of 4.5 mg 00:00: mouth [place] capsule 00 every Medical morning Branch and evening. memantine 2023-0 Yes [id number] 10mg Take 1 [place] 10 mg 7-24 tablet by ity of tablet 00:00: mouth in [place] 00 the Medical morning. Branch rivastigmin 3-0 Yes [id number] 4.5mg Take 1 Univers e tartrate 7-24 capsule by ity of 4.5 mg 00:00: mouth [place] capsule 00 every Medical morning Branch and evening. memantine 3-0 Yes [id number] 10mg Take 1 Un [place] 10 mg 7-24 tablet by ity of tablet 00:00: mouth in [place] 00 the Medical morning. Branch rivastigmin 3-0 Yes [id number] 4.5mg Take 1 Univers e tartrate 7-24 capsule by ity of 4.5 mg 00:00: mouth [place] capsule 00 every Medical morning Branch and evening. memantine 3-0 Yes [id number] 10mg Take 1 Un [place] 10 mg 7-24 tablet by ity of tablet 00:00: mouth in [place] 00 the Medical morning. Branch rivastigmin 3-0 Yes [id number] 4.5mg Take 1 Univers e tartrate 7-24 capsule by ity of 4.5 mg 00:00: mouth [place] capsule 00 every Medical morning Branch and evening. memantine 2023-0 Yes [id number] 10mg Take 1 Un [place] 10 mg 7-24 tablet by ity of tablet 00:00: mouth in [place] 00 the Medical morning. Branch rivastigmin 3-0 Yes [id number] 4.5mg Take 1 Univers e tartrate 7-24 capsule by ity of 4.5 mg 00:00: mouth [place] capsule 00 every Medical morning Branch and evening. memantine 2023-0 Yes [id number] 10mg Take 1 [place] 10 mg 7-24 tablet by ity of tablet 00:00: mouth in [place] 00 the Medical morning. Branch rivastigmin 3-0 Yes [id number] 4.5mg Take 1 Univers e tartrate 7-24 capsule by ity of 4.5 mg 00:00: mouth [place] capsule 00 every Medical morning Branch and evening. memantine 2023-0 Yes [id number] 10mg Take 1 Un [place] 10 mg 7-24 tablet by ity of tablet 00:00: mouth in [place] 00 the Medical morning. Branch rivastigmin 3-0 Yes [id number] 4.5mg Take 1 Univers e tartrate 7-24 capsule by ity of 4.5 mg 00:00: mouth [place] capsule 00 every Medical morning Branch and evening. memantine 3-0 Yes [id number] 10mg Take 1 [place] 10 mg 7-24 tablet by ity of tablet 00:00: mouth in [place] 00 the Medical morning. Branch rivastigmin 3-0 Yes [id number] 4.5mg Take 1 Univers e tartrate 7-24 capsule by ity of 4.5 mg 00:00: mouth [place] capsule 00 every Medical morning Branch and evening. memantine 3-0 Yes [id number] 10mg Take 1 [place] 10 mg 7-24 tablet by ity of tablet 00:00: mouth in [place] 00 the Medical morning. Branch rivastigmin 3-0 Yes [id number] 4.5mg Take 1 Univers e tartrate 7-24 capsule by ity of 4.5 mg 00:00: mouth [place] capsule 00 every Medical morning Branch and evening. memantine 3-0 Yes [id number] 10mg Take 1 [place] 10 mg 7-24 tablet by ity of tablet 00:00: mouth in [place] 00 the Medical morning. Branch rivastigmin 3-0 Yes [id number] 4.5mg Take 1 Univers e tartrate 7-24 capsule by ity of 4.5 mg 00:00: mouth [place] capsule 00 every Medical morning Branch and evening. memantine 2023-0 Yes [id number] 10mg Take 1 [place] 10 mg 7-24 tablet by ity of tablet 00:00: mouth in [place] 00 the Medical morning. Branch rivastigmin 2023-0 Yes [id number] 4.5mg Take 1 Univers e tartrate 7-24 capsule by ity of 4.5 mg 00:00: mouth [place] capsule 00 every Medical morning Branch and evening. memantine 2023-0 Yes [id number] 10mg Take 1 Un [place] 10 mg 7-24 tablet by ity of tablet 00:00: mouth in [place] 00 the Medical morning. Branch rivastigmin 2023-0 Yes [id number] 4.5mg Take 1 Univers e tartrate 7-24 capsule by ity of 4.5 mg 00:00: mouth [place] capsule 00 every Medical morning Branch and evening. memantine 2023-0 Yes [id number] 10mg Take 1 Un [place] 10 mg 7-24 tablet by ity of tablet 00:00: mouth in [place] 00 the Medical morning. Branch rivastigmin 2023-0 Yes [id number] 4.5mg Take 1 Univers e tartrate 7-24 capsule by ity of 4.5 mg 00:00: mouth [place] capsule 00 every Medical morning Branch and evening. memantine 2023-0 Yes [id number] 10mg Take 1 [place] 10 mg 7-24 tablet by ity of tablet 00:00: mouth in [place] 00 the Medical morning. Branch rivastigmin 3-0 Yes [id number] 4.5mg Take 1 Univers e tartrate 7-24 capsule by ity of 4.5 mg 00:00: mouth [place] capsule 00 every Medical morning Branch and evening. memantine 3-0 Yes [id number] 10mg Take 1 [place] 10 mg 7-24 tablet by ity of tablet 00:00: mouth in [place] 00 the Medical morning. Branch rivastigmin 3-0 Yes [id number] 4.5mg Take 1 Univers e tartrate 7-24 capsule by ity of 4.5 mg 00:00: mouth [place] capsule 00 every Medical morning Branch and evening. memantine 2023-0 Yes [id number] 10mg Take 1 [place] 10 mg 7-24 tablet by ity of tablet 00:00: mouth in [place] 00 the Medical morning. Branch rivastigmin 2023-0 Yes [id number] 4.5mg Take 1 Univers e tartrate 7-24 capsule by ity of 4.5 mg 00:00: mouth [place] capsule 00 every Medical morning Branch and evening. memantine 2023-0 Yes [id number] 10mg Take 1 [place] 10 mg 7-24 tablet by ity of tablet 00:00: mouth in [place] 00 the Medical morning. Branch rivastigmin 2023-0 Yes [id number] 4.5mg Take 1 Univers e tartrate 7-24 capsule by ity of 4.5 mg 00:00: mouth [place] capsule 00 every Medical morning Branch and evening. memantine 3-0 Yes [id number] 10mg Take 1 [place] 10 mg 7-24 tablet by ity of tablet 00:00: mouth in [place] 00 the Medical morning. Branch rivastigmin 3-0 Yes [id number] 4.5mg Take 1 Univers e tartrate 7-24 capsule by ity of 4.5 mg 00:00: mouth [place] capsule 00 every Medical morning Branch and evening. memantine 3-0 Yes [id number] 10mg Take 1 [place] 10 mg 7-24 tablet by ity of tablet 00:00: mouth in [place] 00 the Medical morning. Branch rivastigmin 3-0 Yes [id number] 4.5mg Take 1 Univers e tartrate 7-24 capsule by ity of 4.5 mg 00:00: mouth [place] capsule 00 every Medical morning Branch and evening. memantine 3-0 Yes [id number] 10mg Take 1 [facility] 10 mg 7-24 tablet by ity of tablet 00:00: mouth in [place] 00 the Medical morning. Branch cyclobenzap 3-0 Yes [id number] 5mg Take 1 [facility] rine 5 mg 7-13 tablet by ity o f tablet 00:00: mouth in [place] 00 the Medical morning Branch and 1 tablet in the evening. cyclobenzap 3-0 Yes [id number] 5mg Take 1 [facility] rine 5 mg 7-13 tablet by ity o f tablet 00:00: mouth in [place] 00 the Medical morning Branch and 1 tablet in the evening. amoxicillin 3-0 Yes [id number] 1{tbl} Take 1 [facility] -clavulanat 7-13 tablet by ity of e 00:00: mouth in [place] (AUGMENTIN) 00 the Medical 875-125 mg morning Branch per tablet and 1 tablet in the evening. cyclobenzap 2023-0 Yes [id number] 5mg Take 1 [facility] rine 5 mg 7-13 tablet by ity o f tablet 00:00: mouth in [place] 00 the Medical morning Branch and 1 tablet in the evening. amoxicillin 2023-0 Yes [id number] 1{tbl} Take 1 [facility] -clavulanat 7-13 tablet by ity of e 00:00: mouth in [place] (AUGMENTIN) 00 the Medical 875-125 mg morning Branch per tablet and 1 tablet in the evening. cyclobenzap 2023-0 Yes [id number] 5mg Take 1 [facility] rine 5 mg 7-13 tablet by ity o f tablet 00:00: mouth in [place] 00 the Medical morning Branch and 1 tablet in the evening. amoxicillin 3-0 Yes [id number] 1{tbl} Take 1 [facility] -clavulanat 7-13 tablet by ity of e 00:00: mouth in [place] (AUGMENTIN) 00 the Medical 875-125 mg morning Branch per tablet and 1 tablet in the evening. cyclobenzap 2022-0 Yes [id number] 5mg Take 1 [facility] rine 5 mg 7-13 tablet by ity o f tablet 00:00: mouth in [place] 00 the Medical morning Branch and 1 tablet in the evening. amoxicillin 3-0 Yes [id number] 1{tbl} Take 1 [facility] -clavulanat 7-13 tablet by ity of e 00:00: mouth in [place] (AUGMENTIN) 00 the Medical 875-125 mg morning Branch per tablet and 1 tablet in the evening. cyclobenzap 3-0 Yes [id number] 5mg Take 1 [facility] rine 5 mg 7-13 tablet by ity o f tablet 00:00: mouth in [place] 00 the Medical morning Branch and 1 tablet in the evening. amoxicillin 3-0 Yes [id number] 1{tbl} Take 1 [facility] -clavulanat 7-13 tablet by ity of e 00:00: mouth in [place] (AUGMENTIN) 00 the Medical 875-125 mg morning Branch per tablet and 1 tablet in the evening. cyclobenzap 3-0 Yes [id number] 5mg Take 1 [facility] rine 5 mg 7-13 tablet by ity o f tablet 00:00: mouth in [place] 00 the Medical morning Branch and 1 tablet in the evening. amoxicillin 2023-0 Yes [id number] 1{tbl} Take 1 [facility] -clavulanat 7-13 tablet by ity of e 00:00: mouth in [place] (AUGMENTIN) 00 the Medical 875-125 mg morning Branch per tablet and 1 tablet in the evening. cyclobenzap 2023-0 Yes [id number] 5mg Take 1 [facility] rine 5 mg 7-13 tablet by ity o f tablet 00:00: mouth in [place] 00 the Medical morning Branch and 1 tablet in the evening. cyclobenzap 2023-0 Yes [id number] 5mg Take 1 [facility] rine 5 mg 7-13 tablet by ity o f tablet 00:00: mouth in [place] 00 the Medical morning Branch and 1 tablet in the evening. cyclobenzap 2023-0 Yes [id number] 5mg Take 1 [facility] rine 5 mg 7-13 tablet by ity o f tablet 00:00: mouth in [place] 00 the Medical morning Branch and 1 tablet in the evening. cyclobenzap 2023-0 Yes [id number] 5mg Take 1 [facility] rine 5 mg 7-13 tablet by ity o f tablet 00:00: mouth in [place] 00 the Medical morning Branch and 1 tablet in the evening. cyclobenzap 2023-0 Yes [id number] 5mg Take 1 [facility] rine 5 mg 7-13 tablet by ity o f tablet 00:00: mouth in [place] 00 the Medical morning Branch and 1 tablet in the evening. cyclobenzap 2023-0 Yes [id number] 5mg Take 1 [facility] rine 5 mg 7-13 tablet by ity o f tablet 00:00: mouth in [place] 00 the Medical morning Branch and 1 tablet in the evening. cyclobenzap 2023-0 Yes [id number] 5mg Take 1 [facility] rine 5 mg 7-13 tablet by ity o f tablet 00:00: mouth in [place] 00 the Medical morning Branch and 1 tablet in the evening. cyclobenzap 2023-0 Yes [id number] 5mg Take 1 [facility] rine 5 mg 7-13 tablet by ity o f tablet 00:00: mouth in [place] 00 the Medical morning Branch and 1 tablet in the evening. cyclobenzap 2023-0 Yes [id number] 5mg Take 1 [facility] rine 5 mg 7-13 tablet by ity o f tablet 00:00: mouth in [place] 00 the Medical morning Branch and 1 tablet in the evening. cyclobenzap 2023-0 Yes [id number] 5mg Take 1 [facility] rine 5 mg 7-13 tablet by ity o f tablet 00:00: mouth in [place] 00 the Medical morning Branch and 1 tablet in the evening. cyclobenzap 2023-0 Yes [id number] 5mg Take 1 [facility] rine 5 mg 7-13 tablet by ity o f tablet 00:00: mouth in [place] 00 the Medical morning Branch and 1 tablet in the evening. cyclobenzap 2023-0 Yes [id number] 5mg Take 1 [facility] rine 5 mg 7-13 tablet by ity o f tablet 00:00: mouth in [place] 00 the Medical morning Branch and 1 tablet in the evening. cyclobenzap 2023-0 Yes [id number] 5mg Take 1 [facility] rine 5 mg 7-13 tablet by ity o f tablet 00:00: mouth in [place] 00 the Medical morning Branch and 1 tablet in the evening. cyclobenzap 2023-0 Yes [id number] 5mg Take 1 [facility] rine 5 mg 7-13 tablet by ity o f tablet 00:00: mouth in [place] 00 the Medical morning Branch and 1 tablet in the evening. cyclobenzap 2023-0 Yes [id number] 5mg Take 1 [facility] rine 5 mg 7-13 tablet by ity o f tablet 00:00: mouth in [place] 00 the Medical morning Branch and 1 tablet in the evening. cyclobenzap 2023-0 Yes [id number] 5mg Take 1 [facility] rine 5 mg 7-13 tablet by ity o f tablet 00:00: mouth in [place] 00 the Medical morning Branch and 1 tablet in the evening. cyclobenzap 2023-0 Yes [id number] 5mg Take 1 [facility] rine 5 mg 7-13 tablet by ity o f tablet 00:00: mouth in [place] 00 the Medical morning Branch and 1 tablet in the evening. cyclobenzap 2023-0 Yes [id number] 5mg Take 1 [facility] rine 5 mg 7-13 tablet by ity o f tablet 00:00: mouth in [place] 00 the Medical morning Branch and 1 tablet in the evening. cyclobenzap 2023-0 Yes [id number] 5mg Take 1 [facility] rine 5 mg 7-13 tablet by ity o f tablet 00:00: mouth in [place] 00 the Medical morning Branch and 1 tablet in the evening. cyclobenzap 2023-0 Yes [id number] 5mg Take 1 [facility] rine 5 mg 7-13 tablet by ity o f tablet 00:00: mouth in [place] 00 the Medical morning Branch and 1 tablet in the evening. cyclobenzap 2023-0 Yes [id number] 5mg Take 1 [facility] rine 5 mg 7-13 tablet by ity o f tablet 00:00: mouth in [place] 00 the Medical morning Branch and 1 tablet in the evening. cyclobenzap 2023-0 Yes [id number] 5mg Take 1 [facility] rine 5 mg 7-13 tablet by ity o f tablet 00:00: mouth in [place] 00 the Medical morning Branch and 1 tablet in the evening. cyclobenzap 3-0 Yes [id number] 5mg Take 1 [facility] rine 5 mg 7-13 tablet by ity o f tablet 00:00: mouth in [place] 00 the Medical morning Branch and 1 tablet in the evening. cyclobenzap 3-0 Yes [id number] 5mg Take 1 [facility] rine 5 mg 7-13 tablet by ity o f tablet 00:00: mouth in [place] 00 the Medical morning Branch and 1 tablet in the evening. cyclobenzap 3-0 Yes [id number] 5mg Take 1 [facility] rine 5 mg 7-13 tablet by ity o f tablet 00:00: mouth in [place] 00 the Medical morning Branch and 1 tablet in the evening. cyclobenzap 3-0 Yes [id number] 5mg Take 1 [facility] rine 5 mg 7-13 tablet by ity o f tablet 00:00: mouth in [place] 00 the Medical morning Branch and 1 tablet in the evening. amoxicillin 2022-0 2022- No [id number] 1{tbl} Take 1 [facility] -clavulanat 7-13 08-24 tablet by it y of e 00:00: 00:00 mouth in [place] (AUGMENTIN) 00 :00 the Medical 875-125 mg morning Branch per tablet and 1 tablet in the evening. amoxicillin 2022-0 2022- No [id number] 1{tbl} Take 1 [facility] -clavulanat 7-13 08-24 tablet by it y of e 00:00: 00:00 mouth in [place] (AUGMENTIN) 00 :00 the Medical 875-125 mg morning Branch per tablet and 1 tablet in the evening. amoxicillin 2022-0 2022- No [id number] 1{tbl} Take 1 [facility] -clavulanat 7-12 07-20 tablet by it y of e 00:00: 04:59 mouth in [place] (AUGMENTIN) 00 :00 the Medical 875-125 mg morning Branch per tablet and 1 tablet in the evening. Do all this for 7 days. amoxicillin 2022-0 2022- No [id number] 1{tbl} Take 1 [facility] -clavulanat 7-12 07-20 tablet by it y of e 00:00: 04:59 mouth in [place] (AUGMENTIN) 00 :00 the Medical 875-125 mg morning Branch per tablet and 1 tablet in the evening. Do all this for 7 days. amoxicillin 2022-2022- No [id number] 1{tbl} Take 1 [facility] -clavulanat 7-12 07-13 tablet by it y of e 00:00: 00:00 mouth in [place] (AUGMENTIN) 00 :00 the Medical 875-125 mg morning Branch per tablet and 1 tablet in the evening. Do all this for 7 days. amoxicillin 2022-2022- No [id number] 1{tbl} Take 1 [facility] -clavulanat 7-12 07-13 tablet by it y of e 00:00: 00:00 mouth in [place] (AUGMENTIN) 00 :00 the Medical 875-125 mg morning Branch per tablet and 1 tablet in the evening. Do all this for 7 days. amoxicillin 2022-2022- No [id number] 1{tbl} Take 1 [facility] -clavulanat 7-12 07-13 tablet by it y of e 00:00: 00:00 mouth in [place] (AUGMENTIN) 00 :00 the Medical 875-125 mg morning Branch per tablet and 1 tablet in the evening. Do all this for 7 days. mirtazapine 2022-2022- No 15mg Take 15 mg [facility] 15 mg 7-06 by mouth ity of tablet 07:41: 00:00 at [place] 07 :00 bedtime. Medical Branch fenofibrate 0 Yes [id number] 54mg Take 1 [facility] 54 mg 7-06 tablet by ity of tablet 00:00: mouth in [place] 00 the Medical morning. Branch glipiZIDE 2022-0 Yes [id number] 10mg Take 1 [facility] XL 10 mg 24 7-06 tablet by ity of hr tablet 00:00: mouth [place] 00 daily with Medical breakfast. Branch SITagliptin 2022-0 Yes [id number] 2{tbl} Take 2 [facility] phos-metfor 7-06 tablets by it y of min 00:00: mouth in [place] ( the Medical XR) morning. Branch 50-1,000 mg per tablet Insulin 2022-0 Yes [id number] 20U inject 20 U nivers Glargine 7-06 Units ity of (LANTUS 00:00: under the [place] [facility] 00 skin in Medical U-100 the Branch INSULIN) morning. 100 unit/mL Decrease (3 mL) the long injection acting insulin to 20 units once daily to avoid any low BGs. If fasting BG drops < 90, he will continue decrease the insulin dose. lovastatin 0 Yes [id number] TAKE 1 U nivers 40 mg 7-06 TABLET BY ity of tablet 00:00: MOUTH WITH [place] [address] EVENING Medical MEAL Branch mirtazapine 0 Yes [id number] 15mg Take 1 [facility] 15 mg 7-06 tablet by ity of tablet 00:00: mouth at [place] [address] bedtime. Medical Branch pantoprazol 0 Yes [id number] 40mg Take 1 [facility] e 40 mg EC 7-06 tablet by ity of tablet 00:00: mouth in [place] the morning. Branch amitriptyli 0 Yes [id number] 25mg Take 1 [facility] ne 25 mg 7-06 tablet by ity of tablet 00:00: mouth at [place] [address] bedtime. Medical Branch fenofibrate 0 Yes [id number] 54mg Take 1 [facility] 54 mg 7-06 tablet by ity of tablet 00:00: mouth in [place] the [facility] morning. Branch glipiZIDE 0 Yes [id number] 10mg Take 1 [facility] XL 10 mg 24 7-06 tablet by ity of hr tablet 00:00: mouth [place] [address] daily with Medical breakfast. Branch SITagliptin 0 Yes [id number] 2{tbl} Take 2 [facility] phos-metfor 7-06 tablets by it y of min 00:00: mouth in [place] ( the [facility] XR) morning. Branch 50-1,000 mg per tablet Insulin Yes [id number] 20U inject 20 U nivers Glargine 7-06 Units ity of (LANTUS 00:00: under the [facility] 00 skin in [facility] U-100 the Branch INSULIN) morning. 100 unit/mL Decrease (3 mL) the long injection acting insulin to 20 units once daily to avoid any low BGs. If fasting BG drops < 90, he will continue decrease the insulin dose. lovastatin 0 Yes [id number] TAKE 1 U nivers 40 mg 7-06 TABLET BY ity of tablet 00:00: MOUTH WITH [place] 00 EVENING Medical MEAL Branch mirtazapine 2022-0 Yes [id number] 15mg Take 1 [facility] 15 mg 7-06 tablet by ity of tablet 00:00: mouth at [place] [address] bedtime. Medical Branch pantoprazol 2022-0 Yes [id number] 40mg Take 1 [facility] e 40 mg EC 7-06 tablet by ity of tablet 00:00: mouth in [place] 00 the Medical morning. Branch amitriptyli 2022-0 Yes [id number] 25mg Take 1 [facility] ne 25 mg 7-06 tablet by ity of tablet 00:00: mouth at [place] 00 bedtime. Medical Branch fenofibrate 2022-0 Yes [id number] 54mg Take 1 [facility] 54 mg 7-06 tablet by ity of tablet 00:00: mouth in [place] 00 the Medical morning. Branch glipiZIDE 0 Yes [id number] 10mg Take 1 [facility] XL 10 mg 24 7-06 tablet by ity of hr tablet 00:00: mouth [place] 00 daily with Medical breakfast. Branch SITagliptin 0 Yes [id number] 2{tbl} Take 2 [facility] phos-metfor 7-06 tablets by it y of min 00:00: mouth in [place] ( the Medical XR) morning. Branch 50-1,000 mg per tablet Insulin Yes [id number] 20U inject 20 U nivers Glargine 7-06 Units ity of (LANTUS 00:00: under the [place] [facility] 00 skin in [facility] U-100 the Branch INSULIN) morning. 100 unit/mL Decrease (3 mL) the long injection acting insulin to 20 units once daily to avoid any low BGs. If fasting BG drops < 90, he will continue decrease the insulin dose. lovastatin 0 Yes [id number] TAKE 1 U nivers 40 mg 7-06 TABLET BY ity of tablet 00:00: MOUTH WITH [place] 00 EVENING Medical MEAL Branch mirtazapine 2022-0 Yes [id number] 15mg Take 1 [facility] 15 mg 7-06 tablet by ity of tablet 00:00: mouth at [place] [address] bedtime. Medical Branch pantoprazol 2022-0 Yes [id number] 40mg Take 1 [facility] e 40 mg EC 7-06 tablet by ity of tablet 00:00: mouth in [place] 00 the Medical morning. Branch amitriptyli 2022-0 Yes [id number] 25mg Take 1 [facility] ne 25 mg 7-06 tablet by ity of tablet 00:00: mouth at [place] [address] bedtime. Medical Branch fenofibrate 2022-0 Yes [id number] 54mg Take 1 [facility] 54 mg 7-06 tablet by ity of tablet 00:00: mouth in [place] 00 the Medical morning. Branch glipiZIDE 2022-0 Yes [id number] 10mg Take 1 [facility] XL 10 mg 24 7-06 tablet by ity of hr tablet 00:00: mouth [place] 00 daily with Medical breakfast. Branch SITagliptin 2022-0 Yes [id number] 2{tbl} Take 2 [facility] phos-metfor 7-06 tablets by it y of min 00:00: mouth in [place] ( the Medical XR) morning. Branch 50-1,000 mg per tablet Insulin Yes [id number] 20U inject 20 U nivers Glargine 7-06 Units ity of (LANTUS 00:00: under the [place] [facility] 00 skin in Medical U-100 the [place] INSULIN) morning. 100 unit/mL Decrease (3 mL) the long injection acting insulin to 20 units once daily to avoid any low BGs. If fasting BG drops < 90, he will continue decrease the insulin dose. lovastatin 0 Yes [id number] TAKE 1 U nivers 40 mg 7-06 TABLET BY ity of tablet 00:00: MOUTH WITH [place] 00 EVENING Medical MEAL Branch mirtazapine 0 Yes [id number] 15mg Take 1 [facility] 15 mg 7-06 tablet by ity of tablet 00:00: mouth at [place] [address] bedtime. Medical Branch pantoprazol 2022-0 Yes [id number] 40mg Take 1 [facility] e 40 mg EC 7-06 tablet by ity of tablet 00:00: mouth in [place] 00 the Medical morning. Branch amitriptyli 2022-0 Yes [id number] 25mg Take 1 [facility] ne 25 mg 7-06 tablet by ity of tablet 00:00: mouth at [place] [address] bedtime. Medical Branch fenofibrate 2022-0 Yes [id number] 54mg Take 1 [facility] 54 mg 7-06 tablet by ity of tablet 00:00: mouth in [place] 00 the Medical morning. Branch glipiZIDE 2022-0 Yes [id number] 10mg Take 1 [facility] [place] XL 10 mg 24 7-06 tablet by ity of hr tablet 00:00: mouth 00 daily with Medical breakfast. Branch SITagliptin Yes [id number] 2{tbl} Take 2 [facility] phos-metfor 7-06 tablets by it y of min 00:00: mouth in [place] ( the Medical XR) morning. Branch 50-1,000 mg per tablet Insulin Yes [id number] 20U inject 20 U nivers Glargine 7-06 Units ity of (LANTUS 00:00: under the [place] [facility] 00 skin in Medical U-100 the Branch INSULIN) morning. 100 unit/mL Decrease (3 mL) the long injection acting insulin to 20 units once daily to avoid any low BGs. If fasting BG drops < 90, he will continue decrease the insulin dose. lovastatin Yes [id number] TAKE 1 U nivers 40 mg 7-06 TABLET BY ity of tablet 00:00: MOUTH WITH [place] 00 EVENING Medical MEAL Branch mirtazapine 0 Yes [id number] 15mg Take 1 [facility] 15 mg 7-06 tablet by ity of tablet 00:00: mouth at [place] [address] bedtime. Medical Branch pantoprazol 0 Yes [id number] 40mg Take 1 [facility] e 40 mg EC 7-06 tablet by ity of tablet 00:00: mouth in [place] the Medical morning. Branch amitriptyli Yes [id number] 25mg Take 1 [facility] ne 25 mg 7-06 tablet by ity of tablet 00:00: mouth at [place] [address] bedtime. Medical Branch fenofibrate 2022-0 Yes [id number] 54mg Take 1 [facility] 54 mg 7-06 tablet by ity of tablet 00:00: mouth in [place] the Medical morning. Branch glipiZIDE 0 Yes [id number] 10mg Take 1 [facility] [place] XL 10 mg 24 7-06 tablet by ity of hr tablet 00:00: mouth 00 daily with Medical breakfast. Branch SITagliptin Yes [id number] 2{tbl} Take 2 [facility] phos-metfor 7-06 tablets by it y of min 00:00: mouth in [place] ( the Medical XR) morning. Branch 50-1,000 mg per tablet Insulin Yes [id number] 20U inject 20 U nivers Glargine 7-06 Units ity of (LANTUS 00:00: under the [facility] 00 skin in Medical U-100 the Branch INSULIN) morning. 100 unit/mL Decrease (3 mL) the long injection acting insulin to 20 units once daily to avoid any low BGs. If fasting BG drops < 90, he will continue decrease the insulin dose. lovastatin Yes [id number] TAKE 1 U nivers 40 mg 7-06 TABLET BY ity of tablet 00:00: MOUTH WITH [place] 00 EVENING Medical MEAL Branch mirtazapine Yes [id number] 15mg Take 1 [facility] 15 mg 7-06 tablet by ity of tablet 00:00: mouth at [place] [address] bedtime. Medical Branch pantoprazol Yes [id number] 40mg Take 1 [facility] e 40 mg EC 7-06 tablet by ity of tablet 00:00: mouth in [place] 00 the Medical morning. Branch amitriptyli Yes [id number] 25mg Take 1 [facility] ne 25 mg 7-06 tablet by ity of tablet 00:00: mouth at [place] [address] bedtime. Medical Branch fenofibrate Yes [id number] 54mg Take 1 [facility] 54 mg 7-06 tablet by ity of tablet 00:00: mouth in [place] 00 the Medical morning. Branch glipiZIDE Yes [id number] 10mg Take 1 [facility] [place] XL 10 mg 24 7-06 tablet by ity of hr tablet 00:00: mouth [place] 00 daily with Medical breakfast. Branch SITagliptin Yes [id number] 2{tbl} Take 2 [facility] phos-metfor 7-06 tablets by it y of min 00:00: mouth in [place] ([place] 00 the Medical XR) morning. Branch 50-1,000 mg per tablet Insulin Yes [id number] 20U inject 20 U nivers Glargine 7-06 Units ity of (LANTUS 00:00: under the [place] [facility] skin in Medical U-100 the Branch INSULIN) morning. 100 unit/mL Decrease (3 mL) the long injection acting insulin to 20 units once daily to avoid any low BGs. If fasting BG drops < 90, he will continue decrease the insulin dose. lovastatin Yes [id number] TAKE 1 U nivers 40 mg 7-06 TABLET BY ity of tablet 00:00: MOUTH WITH [place] 00 EVENING Medical MEAL Branch mirtazapine 0 Yes [id number] 15mg Take 1 [facility] 15 mg 7-06 tablet by ity of tablet 00:00: mouth at [place] [address] bedtime. Medical Branch pantoprazol 0 Yes [id number] 40mg Take 1 [facility] e 40 mg EC 7-06 tablet by ity of tablet 00:00: mouth in [place] 00 the Medical morning. Branch amitriptyli 0 Yes [id number] 25mg Take 1 [facility] ne 25 mg 7-06 tablet by ity of tablet 00:00: mouth at [place] [address] bedtime. Medical Branch fenofibrate 0 Yes [id number] 54mg Take 1 [facility] 54 mg 7-06 tablet by ity of tablet 00:00: mouth in [place] the Medical morning. Branch glipiZIDE 0 Yes [id number] 10mg Take 1 [facility] [place] XL 10 mg 24 7-06 tablet by ity of hr tablet 00:00: mouth [place] 00 daily with Medical breakfast. Branch SITagliptin Yes [id number] 2{tbl} Take 2 [facility] phos-metfor 7-06 tablets by it y of min 00:00: mouth in [place] ( the Medical XR) morning. Branch 50-1,000 mg per tablet Insulin Yes [id number] 20U inject 20 U nivers Glargine 7-06 Units ity of (LANTUS 00:00: under the [place] [facility] 00 skin in Medical U-100 the Branch INSULIN) morning. 100 unit/mL Decrease (3 mL) the long injection acting insulin to 20 units once daily to avoid any low BGs. If fasting BG drops < 90, he will continue decrease the insulin dose. lovastatin 0 Yes [id number] TAKE 1 U nivers 40 mg 7-06 TABLET BY ity of tablet 00:00: MOUTH WITH [place] 00 EVENING Medical MEAL Branch mirtazapine 0 Yes [id number] 15mg Take 1 [facility] 15 mg 7-06 tablet by ity of tablet 00:00: mouth at [place] [address] bedtime. Medical Branch pantoprazol 0 Yes [id number] 40mg Take 1 [facility] e 40 mg EC 7-06 tablet by ity of tablet 00:00: mouth in [place] 00 the Medical morning. Branch amitriptyli 2022-0 Yes [id number] 25mg Take 1 [facility] ne 25 mg 7-06 tablet by ity of tablet 00:00: mouth at [place] [address] bedtime. Medical Branch fenofibrate 2022-0 Yes [id number] 54mg Take 1 [facility] 54 mg 7-06 tablet by ity of tablet 00:00: mouth in [place] 00 the Medical morning. Branch glipiZIDE 2022-0 Yes [id number] 10mg Take 1 [facility] [place] XL 10 mg 24 7-06 tablet by ity of hr tablet 00:00: mouth [place] 00 daily with Medical breakfast. Branch SITagliptin 2022-0 Yes [id number] 2{tbl} Take 2 [facility] phos-metfor 7-06 tablets by it y of min 00:00: mouth in [place] ( the Medical XR) morning. Branch 50-1,000 mg per tablet Insulin Yes [id number] 20U inject 20 U nivers Glargine 7-06 Units ity of (LANTUS 00:00: under the [place] [facility] 00 skin in Medical U-100 the Branch INSULIN) morning. 100 unit/mL Decrease (3 mL) the long injection acting insulin to 20 units once daily to avoid any low BGs. If fasting BG drops < 90, he will continue decrease the insulin dose. lovastatin 0 Yes [id number] TAKE 1 U nivers 40 mg 7-06 TABLET BY ity of tablet 00:00: MOUTH WITH [place] 00 EVENING Medical MEAL Branch mirtazapine 2022-0 Yes [id number] 15mg Take 1 [facility] 15 mg 7-06 tablet by ity of tablet 00:00: mouth at [place] [address] bedtime. Medical Branch pantoprazol 2022-0 Yes [id number] 40mg Take 1 [facility] e 40 mg EC 7-06 tablet by ity of tablet 00:00: mouth in [place] 00 the Medical morning. Branch amitriptyli 2022-0 Yes [id number] 25mg Take 1 [facility] ne 25 mg 7-06 tablet by ity of tablet 00:00: mouth at [place] [address] bedtime. Medical Branch fenofibrate 2022-0 Yes [id number] 54mg Take 1 [facility] 54 mg 7-06 tablet by ity of tablet 00:00: mouth in [place] 00 the Medical morning. Branch glipiZIDE 0 Yes [id number] 10mg Take 1 [facility] [place] XL 10 mg 24 7-06 tablet by ity of hr tablet 00:00: mouth 00 daily with Medical breakfast. Branch SITagliptin Yes [id number] 2{tbl} Take 2 [facility] phos-metfor 7-06 tablets by it y of min 00:00: mouth in [place] ( the Medical XR) morning. Branch 50-1,000 mg per tablet Insulin Yes [id number] 20U inject 20 U nivers Glargine 7-06 Units ity of (LANTUS 00:00: under the [place] [facility] 00 skin in Medical U-100 the [place] INSULIN) morning. 100 unit/mL Decrease (3 mL) the long injection acting insulin to 20 units once daily to avoid any low BGs. If fasting BG drops < 90, he will continue decrease the insulin dose. lovastatin Yes [id number] TAKE 1 U nivers 40 mg 7-06 TABLET BY ity of tablet 00:00: MOUTH WITH 00 EVENING Medical MEAL Branch mirtazapine 0 Yes [id number] 15mg Take 1 [facility] 15 mg 7-06 tablet by ity of tablet 00:00: mouth at [place] [address] bedtime. Medical Branch pantoprazol 2022-0 Yes [id number] 40mg Take 1 [facility] e 40 mg EC 7-06 tablet by ity of tablet 00:00: mouth in [place] 00 the Medical morning. Branch amitriptyli 2022-0 Yes [id number] 25mg Take 1 [facility] ne 25 mg 7-06 tablet by ity of tablet 00:00: mouth at [place] 00 bedtime. Medical Branch fenofibrate 2022-0 Yes [id number] 54mg Take 1 [facility] 54 mg 7-06 tablet by ity of tablet 00:00: mouth in [place] the Medical morning. Branch glipiZIDE 2022-0 Yes [id number] 10mg Take 1 [facility] [place] XL 10 mg 24 7-06 tablet by ity of hr tablet 00:00: mouth 00 daily with Medical breakfast. Branch SITagliptin 0 Yes [id number] 2{tbl} Take 2 [facility] phos-metfor 7-06 tablets by it y of min 00:00: mouth in [place] ([place] 00 the Medical XR) morning. Branch 50-1,000 mg per tablet Insulin Yes [id number] 20U inject 20 U nivers Glargine 7-06 Units ity of (LANTUS 00:00: under the [facility] 00 skin in Medical U-100 the Branch INSULIN) morning. 100 unit/mL Decrease (3 mL) the long injection acting insulin to 20 units once daily to avoid any low BGs. If fasting BG drops < 90, he will continue decrease the insulin dose. lovastatin Yes [id number] TAKE 1 U nivers 40 mg 7-06 TABLET BY ity of tablet 00:00: MOUTH WITH [place] 00 EVENING Medical MEAL Branch mirtazapine 0 Yes [id number] 15mg Take 1 [facility] 15 mg 7-06 tablet by it[facility] of tablet 00:00: mouth at [place] [address] bedtime. Medical Branch pantoprazol 0 Yes [id number] 40mg Take 1 [facility] e 40 mg EC 7-06 tablet by ity of tablet 00:00: mouth in [place] the Medical morning. Branch amitriptyli Yes [id number] 25mg Take 1 [facility] ne 25 mg 7-06 tablet by ity of tablet 00:00: mouth at [place] [address] bedtime. Medical Branch fenofibrate 0 Yes [id number] 54mg Take 1 [facility] 54 mg 7-06 tablet by it[facility] of tablet 00:00: mouth in [place] 00 the Medical morning. Branch glipiZIDE 0 Yes [id number] 10mg Take 1 [facility] [place] XL 10 mg 24 7-06 tablet by ity of hr tablet 00:00: mouth [place] 00 daily with Medical breakfast. Branch SITagliptin 0 Yes [id number] 2{tbl} Take 2 [facility] phos-metfor 7-06 tablets by it y of min 00:00: mouth in [place] (JUNUME the Medical XR) morning. Branch 50-1,000 mg per tablet Insulin Yes [id number] 20U inject 20 U nivers Glargine 7-06 Units ity of (LANTUS 00:00: under the [facility] 00 skin in Medical U-100 the Branch INSULIN) morning. 100 unit/mL Decrease (3 mL) the long injection acting insulin to 20 units once daily to avoid any low BGs. If fasting BG drops < 90, he will continue decrease the insulin dose. lovastatin 0 Yes [id number] TAKE 1 U nivers 40 mg 7-06 TABLET BY ity of tablet 00:00: MOUTH WITH [place] 00 EVENING Medical MEAL Branch mirtazapine 0 Yes [id number] 15mg Take 1 [facility] 15 mg 7-06 tablet by ity of tablet 00:00: mouth at [place] [address] bedtime. Medical Branch pantoprazol 2022-0 Yes [id number] 40mg Take 1 [facility] e 40 mg EC 7-06 tablet by ity of tablet 00:00: mouth in [place] 00 the Medical morning. Branch amitriptyli 0 Yes [id number] 25mg Take 1 [facility] ne 25 mg 7-06 tablet by ity of tablet 00:00: mouth at [place] [address] bedtime. Medical Branch fenofibrate 0 Yes [id number] 54mg Take 1 [facility] 54 mg 7-06 tablet by ity of tablet 00:00: mouth in [place] the Medical morning. Branch glipiZIDE 0 Yes [id number] 10mg Take 1 [facility] [place] XL 10 mg 24 7-06 tablet by ity of hr tablet 00:00: mouth [place] 00 daily with Medical breakfast. Branch SITagliptin Yes [id number] 2{tbl} Take 2 [facility] phos-metfor 7-06 tablets by it y of min 00:00: mouth in [place] (JUNUME the Medical XR) morning. Branch 50-1,000 mg per tablet Insulin Yes [id number] 20U inject 20 U nivers Glargine 7-06 Units ity of (LANTUS 00:00: under the [place] [facility] 00 skin in Medical U-100 the Branch INSULIN) morning. 100 unit/mL Decrease (3 mL) the long injection acting insulin to 20 units once daily to avoid any low BGs. If fasting BG drops < 90, he will continue decrease the insulin dose. lovastatin 0 Yes [id number] TAKE 1 [facility] nivers 40 mg 7-06 TABLET BY ity of tablet 00:00: MOUTH WITH [place] 00 EVENING Medical MEAL Branch mirtazapine 0 Yes [id number] 15mg Take 1 [facility] 15 mg 7-06 tablet by ity of tablet 00:00: mouth at [place] [address] bedtime. Medical Branch pantoprazol 2023-0 Yes [id number] 40mg Take 1 [facility] e 40 mg EC 7-06 tablet by ity of tablet 00:00: mouth in [place] 00 the Medical morning. Branch amitriptyli 2022-0 Yes [id number] 25mg Take 1 [facility] ne 25 mg 7-06 tablet by ity of tablet 00:00: mouth at [place] 00 bedtime. Medical Branch fenofibrate 2022-0 Yes [id number] 54mg Take 1 [facility] 54 mg 7-06 tablet by ity of tablet 00:00: mouth in [place] 00 the Medical morning. Branch glipiZIDE 2022-0 Yes [id number] 10mg Take 1 [facility] [place] XL 10 mg 24 7-06 tablet by ity of hr tablet 00:00: mouth [place] 00 daily with Medical breakfast. Branch SITagliptin 2022-0 Yes [id number] 2{tbl} Take 2 [facility] phos-metfor 7-06 tablets by it y of min 00:00: mouth in [place] ( the Medical XR) morning. Branch 50-1,000 mg per tablet Insulin Yes [id number] 20U inject 20 U nivers Glargine 7-06 Units ity of (LANTUS 00:00: under the [place] [facility] 00 skin in Medical U-100 the [place] INSULIN) morning. 100 unit/mL Decrease (3 mL) the long injection acting insulin to 20 units once daily to avoid any low BGs. If fasting BG drops < 90, he will continue decrease the insulin dose. lovastatin 0 Yes [id number] TAKE 1 [facility] nivers 40 mg 7-06 TABLET BY ity of tablet 00:00: MOUTH WITH [place] 00 EVENING Medical MEAL Branch mirtazapine 2022-0 Yes [id number] 15mg Take 1 [facility] 15 mg 7-06 tablet by ity of tablet 00:00: mouth at [place] [address] bedtime. Medical Branch pantoprazol 2022-0 Yes [id number] 40mg Take 1 [facility] e 40 mg EC 7-06 tablet by ity of tablet 00:00: mouth in [place] 00 the Medical morning. Branch rivastigmin 2022-0 Yes [id number] 3mg Take 1 [facility] e tartrate 7-06 capsule by ity of 3 mg 00:00: mouth [place] capsule 00 every Medical morning Branch and evening. amitriptyli 2022-0 Yes [id number] 25mg Take 1 [facility] ne 25 mg 7-06 tablet by ity of tablet 00:00: mouth at [place] [address] bedtime. Medical Branch fenofibrate 2022-0 Yes [id number] 54mg Take 1 [facility] 54 mg 7-06 tablet by ity of tablet 00:00: mouth in [place] 00 the Medical morning. Branch glipiZIDE 0 Yes [id number] 10mg Take 1 [facility] [place] XL 10 mg 24 7-06 tablet by ity of hr tablet 00:00: mouth [place] 00 daily with Medical breakfast. Branch SITagliptin 0 Yes [id number] 2{tbl} Take 2 [facility] phos-metfor 7-06 tablets by it y of min 00:00: mouth in [place] ( the Medical XR) morning. Branch 50-1,000 mg per tablet Insulin Yes [id number] 20U inject 20 U nivers Glargine 7-06 Units ity of (LANTUS 00:00: under the [place] [facility] 00 skin in Medical U-100 the Branch INSULIN) morning. 100 unit/mL Decrease (3 mL) the long injection acting insulin to 20 units once daily to avoid any low BGs. If fasting BG drops < 90, he will continue decrease the insulin dose. lovastatin Yes [id number] TAKE 1 [facility] nivers 40 mg 7-06 TABLET BY ity of tablet 00:00: MOUTH WITH [place] 00 EVENING Medical MEAL Branch mirtazapine 0 Yes [id number] 15mg Take 1 [facility] 15 mg 7-06 tablet by ity of tablet 00:00: mouth at [place] [address] bedtime. Medical Branch pantoprazol 2022-0 Yes [id number] 40mg Take 1 [facility] e 40 mg EC 7-06 tablet by ity of tablet 00:00: mouth in [place] 00 the Medical morning. Branch rivastigmin 0 Yes [id number] 3mg Take 1 [facility] e tartrate 7-06 capsule by ity of 3 mg 00:00: mouth [place] capsule 00 every Medical morning Branch and evening. amitriptyli 0 Yes [id number] 25mg Take 1 [facility] ne 25 mg 7-06 tablet by ity of tablet 00:00: mouth at [place] [address] bedtime. Medical Branch fenofibrate 2022-0 Yes [id number] 54mg Take 1 [facility] 54 mg 7-06 tablet by ity of tablet 00:00: mouth in [place] 00 the Medical morning. Branch glipiZIDE 2022-0 Yes [id number] 10mg Take 1 [facility] [place] XL 10 mg 24 7-06 tablet by ity of hr tablet 00:00: mouth [place] 00 daily with Medical breakfast. Branch SITagliptin 2022-0 Yes [id number] 2{tbl} Take 2 [facility] phos-metfor 7-06 tablets by it y of min 00:00: mouth in [place] ( the Medical XR) morning. Branch 50-1,000 mg per tablet Insulin 2022- Yes [id number] 20U inject 20 U nivers Glargine 7-06 Units ity of (L[place]US 00:00: under the [place] [facility] 00 skin in Medical U-100 the Branch INSULIN) morning. 100 unit/mL Decrease (3 mL) the long injection acting insulin to 20 units once daily to avoid any low BGs. If fasting BG drops < 90, he will continue decrease the insulin dose. lovastatin 2022-0 Yes [id number] TAKE 1 U nivers 40 mg 7-06 TABLET BY ity of tablet 00:00: MOUTH WITH [place] 00 EVENING Medical MEAL Branch mirtazapine 2022-0 Yes [id number] 15mg Take 1 [facility] 15 mg 7-06 tablet by ity of tablet 00:00: mouth at [place] [address] bedtime. Medical Branch pantoprazol 2022-0 Yes [id number] 40mg Take 1 [facility] e 40 mg EC 7-06 tablet by ity of tablet 00:00: mouth in [place] 00 the Medical morning. Branch rivastigmin 2022-0 Yes [id number] 3mg Take 1 [facility] e tartrate 7-06 capsule by ity of 3 mg 00:00: mouth [place] capsule 00 every Medical morning Branch and evening. amitriptyli 2022-0 Yes [id number] 25mg Take 1 [facility] ne 25 mg 7-06 tablet by ity of tablet 00:00: mouth at [place] 00 bedtime. Medical Branch fenofibrate 2022-0 Yes [id number] 54mg Take 1 [facility] 54 mg 7-06 tablet by ity of tablet 00:00: mouth in [place] 00 the Medical morning. Branch glipiZIDE 2022-0 Yes [id number] 10mg Take 1 [facility] [place] XL 10 mg 24 7-06 tablet by ity of hr tablet 00:00: mouth [place] 00 daily with Medical breakfast. Branch SITagliptin Yes [id number] 2{tbl} Take 2 [facility] phos-metfor 7-06 tablets by it y of min 00:00: mouth in [place] (JUNUMET 00 the Medical XR) morning. Branch 50-1,000 mg per tablet Insulin 2022- Yes [id number] 20U inject 20 U nivers Glargine 7-06 Units ity of (LANTUS 00:00: under the [place] [facility] 00 skin in Medical U-100 the Branch INSULIN) morning. 100 unit/mL Decrease (3 mL) the long injection acting insulin to 20 units once daily to avoid any low BGs. If fasting BG drops < 90, he will continue decrease the insulin dose. lovastatin Yes [id number] TAKE 1 U nivers 40 mg 7-06 TABLET BY ity of tablet 00:00: MOUTH WITH [place] 00 EVENING Medical MEAL Branch mirtazapine 2022-0 Yes [id number] 15mg Take 1 [facility] 15 mg 7-06 tablet by ity of tablet 00:00: mouth at [place] [address] bedtime. Medical Branch pantoprazol 2022-0 Yes [id number] 40mg Take 1 [facility] e 40 mg EC 7-06 tablet by ity of tablet 00:00: mouth in [place] 00 the Medical morning. Branch rivastigmin 2022-0 Yes [id number] 3mg Take 1 [facility] e tartrate 7-06 capsule by ity of 3 mg 00:00: mouth [place] capsule 00 every Medical morning Branch and evening. amitriptyli 2022-0 Yes [id number] 25mg Take 1 [facility] ne 25 mg 7-06 tablet by ity of tablet 00:00: mouth at [place] 00 bedtime. Medical Branch fenofibrate 2022-0 Yes [id number] 54mg Take 1 [facility] 54 mg 7-06 tablet by ity of tablet 00:00: mouth in [place] 00 the Medical morning. Branch glipiZIDE 2022-0 Yes [id number] 10mg Take 1 [facility] [place] XL 10 mg 24 7-06 tablet by ity of hr tablet 00:00: mouth [place] 00 daily with Medical breakfast. Branch SITagliptin 2022-0 Yes [id number] 2{tbl} Take 2 [facility] phos-metfor 7-06 tablets by it y of min 00:00: mouth in [place] ( the Medical XR) morning. Branch 50-1,000 mg per tablet Insulin Yes [id number] 20U inject 20 U nivers Glargine 7-06 Units ity of (LANTUS 00:00: under the [place] [facility] 00 skin in Medical U-100 the Branch INSULIN) morning. 100 unit/mL Decrease (3 mL) the long injection acting insulin to 20 units once daily to avoid any low BGs. If fasting BG drops < 90, he will continue decrease the insulin dose. lovastatin Yes [id number] TAKE 1 U nivers 40 mg 7-06 TABLET BY ity of tablet 00:00: MOUTH WITH [place] 00 EVENING Medical MEAL Branch mirtazapine Yes [id number] 15mg Take 1 [facility] 15 mg 7-06 tablet by ity of tablet 00:00: mouth at [place] [address] bedtime. Medical Branch pantoprazol 2022-0 Yes [id number] 40mg Take 1 [facility] e 40 mg EC 7-06 tablet by ity of tablet 00:00: mouth in [place] 00 the Medical morning. Branch rivastigmin Yes [id number] 3mg Take 1 [facility] e tartrate 7-06 capsule by ity of 3 mg 00:00: mouth [place] capsule 00 every Medical morning Branch and evening. amitriptyli Yes [id number] 25mg Take 1 [facility] ne 25 mg 7-06 tablet by ity of tablet 00:00: mouth at [place] 00 bedtime. Medical Branch fenofibrate 2022-0 Yes [id number] 54mg Take 1 [facility] 54 mg 7-06 tablet by ity of tablet 00:00: mouth in [place] 00 the Medical morning. Branch glipiZIDE 0 Yes [id number] 10mg Take 1 [facility] [place] XL 10 mg 24 7-06 tablet by ity of hr tablet 00:00: mouth [place] 00 daily with Medical breakfast. Branch SITagliptin Yes [id number] 2{tbl} Take 2 [facility] phos-metfor 7-06 tablets by it y of min 00:00: mouth in [place] ( the Medical XR) morning. Branch 50-1,000 mg per tablet Insulin Yes [id number] 20U inject 20 U nivers Glargine 7-06 Units ity of (LANTUS 00:00: under the [place] [facility] 00 skin in Medical U-100 the Branch INSULIN) morning. 100 unit/mL Decrease (3 mL) the long injection acting insulin to 20 units once daily to avoid any low BGs. If fasting BG drops < 90, he will continue decrease the insulin dose. lovastatin 0 Yes [id number] TAKE 1 U nivers 40 mg 7-06 TABLET BY ity of tablet 00:00: MOUTH WITH [place] 00 EVENING Medical MEAL Branch mirtazapine 0 Yes [id number] 15mg Take 1 [facility] 15 mg 7-06 tablet by ity of tablet 00:00: mouth at [place] [address] bedtime. Medical Branch pantoprazol 0 Yes [id number] 40mg Take 1 [facility] e 40 mg EC 7-06 tablet by ity of tablet 00:00: mouth in [place] 00 the Medical morning. Branch rivastigmin 0 Yes [id number] 3mg Take 1 [facility] e tartrate 7-06 capsule by ity of 3 mg 00:00: mouth [place] capsule 00 every Medical morning Branch and evening. amitriptyli 0 Yes [id number] 25mg Take 1 [facility] ne 25 mg 7-06 tablet by ity of tablet 00:00: mouth at [place] [address] bedtime. Medical Branch fenofibrate 0 Yes [id number] 54mg Take 1 [facility] 54 mg 7-06 tablet by ity of tablet 00:00: mouth in [place] 00 the Medical morning. Branch glipiZIDE 0 Yes [id number] 10mg Take 1 [facility] [place] XL 10 mg 24 7-06 tablet by ity of hr tablet 00:00: mouth [place] 00 daily with Medical breakfast. Branch SITagliptin 0 Yes [id number] 2{tbl} Take 2 [facility] phos-metfor 7-06 tablets by it y of min 00:00: mouth in [place] ( the Medical XR) morning. Branch 50-1,000 mg per tablet Insulin Yes [id number] 20U inject 20 U nivers Glargine 7-06 Units ity of (LANTUS 00:00: under the [place] [facility] 00 skin in Medical U-100 the Branch INSULIN) morning. 100 unit/mL Decrease (3 mL) the long injection acting insulin to 20 units once daily to avoid any low BGs. If fasting BG drops < 90, he will continue decrease the insulin dose. lovastatin 0 Yes [id number] TAKE 1 U nivers 40 mg 7-06 TABLET BY ity of tablet 00:00: MOUTH WITH [place] 00 EVENING Medical MEAL Branch mirtazapine 0 Yes [id number] 15mg Take 1 [facility] 15 mg 7-06 tablet by ity of tablet 00:00: mouth at [place] [address] bedtime. Medical Branch pantoprazol 2022-0 Yes [id number] 40mg Take 1 [facility] e 40 mg EC 7-06 tablet by ity of tablet 00:00: mouth in [place] 00 the Medical morning. Branch rivastigmin 0 Yes [id number] 3mg Take 1 [facility] e tartrate 7-06 capsule by ity of 3 mg 00:00: mouth [place] capsule 00 every Medical morning Branch and evening. amitriptyli 0 Yes [id number] 25mg Take 1 [facility] ne 25 mg 7-06 tablet by ity of tablet 00:00: mouth at [place] 00 bedtime. Medical Branch fenofibrate 0 Yes [id number] 54mg Take 1 [facility] 54 mg 7-06 tablet by ity of tablet 00:00: mouth in [place] 00 the Medical morning. Branch glipiZIDE 0 Yes [id number] 10mg Take 1 [facility] [place] XL 10 mg 24 7-06 tablet by ity of hr tablet 00:00: mouth [place] 00 daily with Medical breakfast. Branch SITagliptin 0 Yes [id number] 2{tbl} Take 2 [facility] phos-metfor 7-06 tablets by it y of min 00:00: mouth in [place] ( 00 the Medical XR) morning. Branch 50-1,000 mg per tablet Insulin Yes [id number] 20U inject 20 U nivers Glargine 7-06 Units ity of (LANTUS 00:00: under the [place] [facility] 00 skin in Medical U-100 the Branch INSULIN) morning. 100 unit/mL Decrease (3 mL) the long injection acting insulin to 20 units once daily to avoid any low BGs. If fasting BG drops < 90, he will continue decrease the insulin dose. lovastatin 0 Yes [id number] TAKE 1 U nivers 40 mg 7-06 TABLET BY ity of tablet 00:00: MOUTH WITH [place] 00 EVENING Medical MEAL Branch mirtazapine 2022-0 Yes [id number] 15mg Take 1 [facility] 15 mg 7-06 tablet by ity of tablet 00:00: mouth at [place] [address] bedtime. Medical Branch pantoprazol 2022-0 Yes [id number] 40mg Take 1 [facility] e 40 mg EC 7-06 tablet by ity of tablet 00:00: mouth in [place] 00 the Medical morning. Branch rivastigmin 2022-0 Yes [id number] 3mg Take 1 [facility] e tartrate 7-06 capsule by ity of 3 mg 00:00: mouth [place] capsule 00 every Medical morning Branch and evening. amitriptyli 2022-0 Yes [id number] 25mg Take 1 [facility] ne 25 mg 7-06 tablet by ity of tablet 00:00: mouth at [place] [address] bedtime. Medical Branch fenofibrate 2022-0 Yes [id number] 54mg Take 1 [facility] 54 mg 7-06 tablet by ity of tablet 00:00: mouth in [place] 00 the Medical morning. Branch glipiZIDE 2022-0 Yes [id number] 10mg Take 1 [facility] [place] XL 10 mg 24 7-06 tablet by ity of hr tablet 00:00: mouth [place] 00 daily with Medical breakfast. Branch SITagliptin 2022-0 Yes [id number] 2{tbl} Take 2 [facility] phos-metfor 7-06 tablets by it y of min 00:00: mouth in [place] (JUNUME 00 the Medical XR) morning. Branch 50-1,000 mg per tablet Insulin Yes [id number] 20U inject 20 U nivers Glargine 7-06 Units ity of (LANTUS 00:00: under the [place] [facility] 00 skin in Medical U-100 the Branch INSULIN) morning. 100 unit/mL Decrease (3 mL) the long injection acting insulin to 20 units once daily to avoid any low BGs. If fasting BG drops < 90, he will continue decrease the insulin dose. lovastatin 2022-0 Yes [id number] TAKE 1 U nivers 40 mg 7-06 TABLET BY ity of tablet 00:00: MOUTH WITH [place] 00 EVENING Medical MEAL Branch mirtazapine 2022-0 Yes [id number] 15mg Take 1 [facility] 15 mg 7-06 tablet by ity of tablet 00:00: mouth at [place] 00 bedtime. Medical Branch pantoprazol Yes [id number] 40mg Take 1 [facility] e 40 mg EC 7-06 tablet by ity of tablet 00:00: mouth in [place] 00 the Medical morning. Branch rivastigmin Yes [id number] 3mg Take 1 [facility] e tartrate 7-06 capsule by ity of 3 mg 00:00: mouth [place] capsule 00 every Medical morning Branch and evening. amitriptyli 2022-0 Yes [id number] 25mg Take 1 [facility] ne 25 mg 7-06 tablet by ity of tablet 00:00: mouth at [place] 00 bedtime. Medical Branch fenofibrate 0 Yes [id number] 54mg Take 1 [facility] 54 mg 7-06 tablet by ity of tablet 00:00: mouth in [place] 00 the Medical morning. Branch glipiZIDE Yes [id number] 10mg Take 1 [facility] [place] XL 10 mg 24 7-06 tablet by ity of hr tablet 00:00: mouth [place] 00 daily with Medical breakfast. Branch SITagliptin Yes [id number] 2{tbl} Take 2 [facility] phos-metfor 7-06 tablets by it y of min 00:00: mouth in [place] ( 00 the Medical XR) morning. Branch 50-1,000 mg per tablet Insulin Yes [id number] 20U inject 20 U nivers Glargine 7-06 Units ity of ([place]ANTUS 00:00: under the [place] [facility] 00 skin in Medical U-100 the Branch INSULIN) morning. 100 unit/mL Decrease (3 mL) the long injection acting insulin to 20 units once daily to avoid any low BGs. If fasting BG drops < 90, he will continue decrease the insulin dose. lovastatin Yes [id number] TAKE 1 U nivers 40 mg 7-06 TABLET BY ity of tablet 00:00: MOUTH WITH [place] 00 EVENING Medical MEAL Branch mirtazapine 0 Yes [id number] 15mg Take 1 [facility] 15 mg 7-06 tablet by ity of tablet 00:00: mouth at [place] 00 bedtime. Medical Branch pantoprazol 2022-0 Yes [id number] 40mg Take 1 [facility] e 40 mg EC 7-06 tablet by ity of tablet 00:00: mouth in [place] 00 the Medical morning. Branch rivastigmin 0 Yes [id number] 3mg Take 1 [facility] e tartrate 7-06 capsule by ity of 3 mg 00:00: mouth [place] capsule 00 every Medical morning Branch and evening. amitriptyli 2022-0 Yes [id number] 25mg Take 1 [facility] ne 25 mg 7-06 tablet by ity of tablet 00:00: mouth at [place] 00 bedtime. Medical Branch fenofibrate 2022-0 Yes [id number] 54mg Take 1 [facility] 54 mg 7-06 tablet by ity of tablet 00:00: mouth in [place] 00 the Medical morning. Branch glipiZIDE 0 Yes [id number] 10mg Take 1 [facility] [place] XL 10 mg 24 7-06 tablet by ity of hr tablet 00:00: mouth [place] 00 daily with Medical breakfast. Branch SITagliptin Yes [id number] 2{tbl} Take 2 [facility] phos-metfor 7-06 tablets by it y of min 00:00: mouth in [place] ( the Medical XR) morning. Branch 50-1,000 mg per tablet Insulin Yes [id number] 20U inject 20 U nivers Glargine 7-06 Units ity of ([place]ANTUS 00:00: under the [place] [facility] 00 skin in Medical U-100 the [place] INSULIN) morning. 100 unit/mL Decrease (3 mL) the long injection acting insulin to 20 units once daily to avoid any low BGs. If fasting BG drops < 90, he will continue decrease the insulin dose. lovastatin 0 Yes [id number] TAKE 1 U nivers 40 mg 7-06 TABLET BY ity of tablet 00:00: MOUTH WITH [place] 00 EVENING Medical MEAL Branch mirtazapine 2022-0 Yes [id number] 15mg Take 1 [facility] 15 mg 7-06 tablet by ity of tablet 00:00: mouth at [place] [address] bedtime. Medical Branch pantoprazol 2022-0 Yes [id number] 40mg Take 1 [facility] e 40 mg EC 7-06 tablet by ity of tablet 00:00: mouth in [place] 00 the Medical morning. Branch amitriptyli 2022-0 Yes [id number] 25mg Take 1 [facility] ne 25 mg 7-06 tablet by ity of tablet 00:00: mouth at [place] [address] bedtime. Medical Branch fenofibrate 2022-0 Yes [id number] 54mg Take 1 [facility] 54 mg 7-06 tablet by ity of tablet 00:00: mouth in [place] 00 the Medical morning. Branch glipiZIDE Yes [id number] 10mg Take 1 [facility] [place] XL 10 mg 24 7-06 tablet by ity of hr tablet 00:00: mouth [place] 00 daily with Medical breakfast. Branch SITagliptin Yes [id number] 2{tbl} Take 2 [facility] phos-metfor 7-06 tablets by it y of min 00:00: mouth in [place] ( 00 the Medical XR) morning. Branch 50-1,000 mg per tablet Insulin Yes [id number] 20U inject 20 U nivers Glargine 7-06 Units ity of (LANTUS 00:00: under the [place] [facility] 00 skin in Medical U-100 the [place] INSULIN) morning. 100 unit/mL Decrease (3 mL) the long injection acting insulin to 20 units once daily to avoid any low BGs. If fasting BG drops < 90, he will continue decrease the insulin dose. lovastatin Yes [id number] TAKE 1 U nivers 40 mg 7-06 TABLET BY ity of tablet 00:00: MOUTH WITH [place] 00 EVENING Medical MEAL Branch mirtazapine 0 Yes [id number] 15mg Take 1 [facility] 15 mg 7-06 tablet by ity of tablet 00:00: mouth at [place] [address] bedtime. Medical Branch pantoprazol 2022-0 Yes [id number] 40mg Take 1 [facility] e 40 mg EC 7-06 tablet by ity of tablet 00:00: mouth in [place] 00 the Medical morning. Branch amitriptyli 2022-0 Yes [id number] 25mg Take 1 [facility] ne 25 mg 7-06 tablet by ity of tablet 00:00: mouth at [place] [address] bedtime. Medical Branch fenofibrate 2022-0 Yes [id number] 54mg Take 1 [facility] 54 mg 7-06 tablet by ity of tablet 00:00: mouth in [place] 00 the Medical morning. Branch glipiZIDE 2022-0 Yes [id number] 10mg Take 1 [facility] [place] XL 10 mg 24 7-06 tablet by ity of hr tablet 00:00: mouth [place] 00 daily with Medical breakfast. Branch SITagliptin 2022-0 Yes [id number] 2{tbl} Take 2 [facility] phos-metfor 7-06 tablets by it y of min 00:00: mouth in [place] ( the Medical XR) morning. Branch 50-1,000 mg per tablet Insulin Yes [id number] 20U inject 20 U nivers Glargine 7-06 Units ity of ([place]ANTUS 00:00: under the [place] [facility] 00 skin in Medical U-100 the Branch INSULIN) morning. 100 unit/mL Decrease (3 mL) the long injection acting insulin to 20 units once daily to avoid any low BGs. If fasting BG drops < 90, he will continue decrease the insulin dose. lovastatin 0 Yes [id number] TAKE 1 U nivers 40 mg 7-06 TABLET BY ity of tablet 00:00: MOUTH WITH 00 EVENING Medical MEAL Branch mirtazapine 0 Yes [id number] 15mg Take 1 [facility] 15 mg 7-06 tablet by ity of tablet 00:00: mouth at [place] [address] bedtime. Medical Branch pantoprazol 2022-0 Yes [id number] 40mg Take 1 [facility] e 40 mg EC 7-06 tablet by ity of tablet 00:00: mouth in [place] the Medical morning. Branch amitriptyli 0 Yes [id number] 25mg Take 1 [facility] ne 25 mg 7-06 tablet by ity of tablet 00:00: mouth at [place] [address] bedtime. Medical Branch fenofibrate 2022-0 Yes [id number] 54mg Take 1 [facility] 54 mg 7-06 tablet by ity of tablet 00:00: mouth in [place] the Medical morning. Branch glipiZIDE 2022-0 Yes [id number] 10mg Take 1 [facility] [place] XL 10 mg 24 7-06 tablet by ity of hr tablet 00:00: mouth 00 daily with Medical breakfast. Branch SITagliptin 0 Yes [id number] 2{tbl} Take 2 [facility] phos-metfor 7-06 tablets by it y of min 00:00: mouth in [place] ( the Medical XR) morning. Branch 50-1,000 mg per tablet Insulin Yes [id number] 20U inject 20 U nivers Glargine 7-06 Units ity of ([place]US 00:00: under the [place] [facility] 00 skin in Medical U-100 the Branch INSULIN) morning. 100 unit/mL Decrease (3 mL) the long injection acting insulin to 20 units once daily to avoid any low BGs. If fasting BG drops < 90, he will continue decrease the insulin dose. lovastatin 0 Yes [id number] TAKE 1 U nivers 40 mg 7-06 TABLET BY ity of tablet 00:00: MOUTH WITH [place] 00 EVENING Medical MEAL Branch mirtazapine 0 Yes [id number] 15mg Take 1 [facility] 15 mg 7-06 tablet by ity of tablet 00:00: mouth at [place] [address] bedtime. Medical Branch pantoprazol 0 Yes [id number] 40mg Take 1 [facility] e 40 mg EC 7-06 tablet by ity of tablet 00:00: mouth in [place] 00 the Medical morning. Branch amitriptyli 0 Yes [id number] 25mg Take 1 [facility] ne 25 mg 7-06 tablet by ity of tablet 00:00: mouth at [place] [address] bedtime. Medical Branch fenofibrate 0 Yes [id number] 54mg Take 1 [facility] 54 mg 7-06 tablet by ity of tablet 00:00: mouth in [place] 00 the Medical morning. Branch glipiZIDE Yes [id number] 10mg Take 1 [facility] [place] XL 10 mg 24 7-06 tablet by ity of hr tablet 00:00: mouth [place] 00 daily with Medical breakfast. Branch SITagliptin Yes [id number] 2{tbl} Take 2 [facility] phos-metfor 7-06 tablets by it y of min 00:00: mouth in [place] (JUNUME 00 the Medical XR) morning. Branch 50-1,000 mg per tablet Insulin Yes [id number] 20U inject 20 U nivers Glargine 7-06 Units ity of (LANTUS 00:00: under the [place] [facility] 00 skin in Medical U-100 the Branch INSULIN) morning. 100 unit/mL Decrease (3 mL) the long injection acting insulin to 20 units once daily to avoid any low BGs. If fasting BG drops < 90, he will continue decrease the insulin dose. lovastatin 0 Yes [id number] TAKE 1 U nivers 40 mg 7-06 TABLET BY ity of tablet 00:00: MOUTH WITH [place] 00 EVENING Medical MEAL Branch mirtazapine 0 Yes [id number] 15mg Take 1 [facility] 15 mg 7-06 tablet by ity of tablet 00:00: mouth at [place] [address] bedtime. Medical Branch pantoprazol 2022-0 Yes [id number] 40mg Take 1 [facility] e 40 mg EC 7-06 tablet by ity of tablet 00:00: mouth in [place] 00 the Medical morning. Branch amitriptyli 2022-0 Yes [id number] 25mg Take 1 [facility] ne 25 mg 7-06 tablet by ity of tablet 00:00: mouth at [place] [address] bedtime. Medical Branch fenofibrate 2022-0 Yes [id number] 54mg Take 1 [facility] 54 mg 7-06 tablet by ity of tablet 00:00: mouth in [place] 00 the Medical morning. Branch glipiZIDE 2022-0 Yes [id number] 10mg Take 1 [facility] [place] XL 10 mg 24 7-06 tablet by ity of hr tablet 00:00: mouth [place] 00 daily with Medical breakfast. Branch SITagliptin 2022-0 Yes [id number] 2{tbl} Take 2 [facility] phos-metfor 7-06 tablets by it y of min 00:00: mouth in [place] ( the Medical XR) morning. Branch 50-1,000 mg per tablet Insulin Yes [id number] 20U inject 20 U nivers Glargine 7-06 Units ity of (LANTUS 00:00: under the [place] [facility] 00 skin in [facility] U-100 the Branch INSULIN) morning. 100 unit/mL Decrease (3 mL) the long injection acting insulin to 20 units once daily to avoid any low BGs. If fasting BG drops < 90, he will continue decrease the insulin dose. lovastatin 0 Yes [id number] TAKE 1 U nivers 40 mg 7-06 TABLET BY ity of tablet 00:00: MOUTH WITH [place] 00 EVENING Medical MEAL Branch mirtazapine 2022-0 Yes [id number] 15mg Take 1 [facility] 15 mg 7-06 tablet by ity of tablet 00:00: mouth at [place] [address] bedtime. Medical Branch pantoprazol 2022-0 Yes [id number] 40mg Take 1 [facility] e 40 mg EC 7-06 tablet by ity of tablet 00:00: mouth in [place] 00 the Medical morning. Branch amitriptyli 2022-0 Yes [id number] 25mg Take 1 [facility] ne 25 mg 7-06 tablet by ity of tablet 00:00: mouth at [place] [address] bedtime. Medical Branch fenofibrate 2022-0 Yes [id number] 54mg Take 1 [facility] 54 mg 7-06 tablet by ity of tablet 00:00: mouth in [place] 00 the Medical morning. Branch glipiZIDE 2022-0 Yes [id number] 10mg Take 1 [facility] [place] XL 10 mg 24 7-06 tablet by ity of hr tablet 00:00: mouth [place] 00 daily with Medical breakfast. Branch SITagliptin 2022-0 Yes [id number] 2{tbl} Take 2 [facility] phos-metfor 7-06 tablets by it y of min 00:00: mouth in [place] ( the Medical XR) morning. Branch 50-1,000 mg per tablet Insulin 2022-0 Yes [id number] 20U inject 20 U nivers Glargine 7-06 Units ity of (LANTUS 00:00: under the [place] [facility] 00 skin in Medical U-100 the Branch INSULIN) morning. 100 unit/mL Decrease (3 mL) the long injection acting insulin to 20 units once daily to avoid any low BGs. If fasting BG drops < 90, he will continue decrease the insulin dose. lovastatin 2022-0 Yes [id number] TAKE 1 [facility] nivers 40 mg 7-06 TABLET BY ity of tablet 00:00: MOUTH WITH [place] 00 EVENING Medical MEAL Branch mirtazapine 2022-0 Yes [id number] 15mg Take 1 [facility] 15 mg 7-06 tablet by ity of tablet 00:00: mouth at [place] [address] bedtime. Medical Branch pantoprazol 2022-0 Yes [id number] 40mg Take 1 [facility] e 40 mg EC 7-06 tablet by ity of tablet 00:00: mouth in [place] 00 the Medical morning. Branch amitriptyli 2022-0 Yes [id number] 25mg Take 1 [facility] ne 25 mg 7-06 tablet by ity of tablet 00:00: mouth at [place] [address] bedtime. Medical Branch fenofibrate 2022-0 Yes [id number] 54mg Take 1 [facility] 54 mg 7-06 tablet by ity of tablet 00:00: mouth in [place] 00 the Medical morning. Branch glipiZIDE 2022-0 Yes [id number] 10mg Take 1 [facility] [place] XL 10 mg 24 7-06 tablet by ity of hr tablet 00:00: mouth [place] 00 daily with Medical breakfast. Branch SITagliptin Yes [id number] 2{tbl} Take 2 [facility] phos-metfor 7-06 tablets by it y of min 00:00: mouth in [place] ( the Medical XR) morning. Branch 50-1,000 mg per tablet Insulin Yes [id number] 20U inject 20 U nivers Glargine 7-06 Units ity of (LANTUS 00:00: under the [place] [facility] 00 skin in Medical U-100 the Branch INSULIN) morning. 100 unit/mL Decrease (3 mL) the long injection acting insulin to 20 units once daily to avoid any low BGs. If fasting BG drops < 90, he will continue decrease the insulin dose. lovastatin Yes [id number] TAKE 1 U nivers 40 mg 7-06 TABLET BY ity of tablet 00:00: MOUTH WITH [place] 00 EVENING Medical MEAL Branch mirtazapine 0 Yes [id number] 15mg Take 1 [facility] 15 mg 7-06 tablet by ity of tablet 00:00: mouth at [place] 00 bedtime. Medical Branch pantoprazol Yes [id number] 40mg Take 1 [facility] e 40 mg EC 7-06 tablet by ity of tablet 00:00: mouth in [place] the Medical morning. Branch amitriptyli Yes [id number] 25mg Take 1 [facility] ne 25 mg 7-06 tablet by ity of tablet 00:00: mouth at [place] 00 bedtime. Medical Branch fenofibrate 2022-0 Yes [id number] 54mg Take 1 [facility] 54 mg 7-06 tablet by ity of tablet 00:00: mouth in [place] the Medical morning. Branch glipiZIDE Yes [id number] 10mg Take 1 [facility] [place] XL 10 mg 24 7-06 tablet by ity of hr tablet 00:00: mouth 00 daily with Medical breakfast. Branch SITagliptin 0 Yes [id number] 2{tbl} Take 2 [facility] phos-metfor 7-06 tablets by it y of min 00:00: mouth in [place] ( the Medical XR) morning. Branch 50-1,000 mg per tablet Insulin Yes [id number] 20U inject 20 U nivers Glargine 7-06 Units ity of (LANTUS 00:00: under the [facility] 00 skin in Medical U-100 the Branch INSULIN) morning. 100 unit/mL Decrease (3 mL) the long injection acting insulin to 20 units once daily to avoid any low BGs. If fasting BG drops < 90, he will continue decrease the insulin dose. lovastatin 0 Yes [id number] TAKE 1 [facility] nivers 40 mg 7-06 TABLET BY ity of tablet 00:00: MOUTH WITH [place] [address] EVENING Medical MEAL Branch mirtazapine 0 Yes [id number] 15mg Take 1 [facility] 15 mg 7-06 tablet by ity of tablet 00:00: mouth at [place] [address] bedtime. Medical Branch pantoprazol 0 Yes [id number] 40mg Take 1 [facility] e 40 mg EC 7-06 tablet by ity of tablet 00:00: mouth in [place] [address] the [facility] morning. Branch amitriptyli 0 Yes [id number] 25mg Take 1 [facility] ne 25 mg 7-06 tablet by ity of tablet 00:00: mouth at [place] [address] bedtime. Medical Branch fenofibrate 0 Yes [id number] 54mg Take 1 [facility] 54 mg 7-06 tablet by ity of tablet 00:00: mouth in [place] the [facility] morning. Branch glipiZIDE 0 Yes [id number] 10mg Take 1 [facility] [place] XL 10 mg 24 7-06 tablet by ity of hr tablet 00:00: mouth [place] [address] daily with Medical breakfast. Branch SITagliptin 0 Yes [id number] 2{tbl} Take 2 [facility] phos-metfor 7-06 tablets by it y of min 00:00: mouth in [place] ( the [facility] XR) morning. Branch 50-1,000 mg per tablet Insulin Yes [id number] 20U inject 20 U nivers Glargine 7-06 Units ity of (LANTUS 00:00: under the [facility] 00 skin in Medical U-100 the Branch INSULIN) morning. 100 unit/mL Decrease (3 mL) the long injection acting insulin to 20 units once daily to avoid any low BGs. If fasting BG drops < 90, he will continue decrease the insulin dose. lovastatin 0 Yes [id number] TAKE 1 U nivers 40 mg 7-06 TABLET BY ity of tablet 00:00: MOUTH WITH [place] 00 EVENING Medical MEAL Branch mirtazapine 2022-0 Yes [id number] 15mg Take 1 [facility] 15 mg 7-06 tablet by ity of tablet 00:00: mouth at [place] [address] bedtime. Medical Branch pantoprazol 2022-0 Yes [id number] 40mg Take 1 [facility] e 40 mg EC 7-06 tablet by ity of tablet 00:00: mouth in [place] 00 the Medical morning. Branch amitriptyli 2022-0 Yes [id number] 25mg Take 1 [facility] ne 25 mg 7-06 tablet by ity of tablet 00:00: mouth at [place] [address] bedtime. Medical Branch fenofibrate 2022-0 Yes [id number] 54mg Take 1 [facility] 54 mg 7-06 tablet by ity of tablet 00:00: mouth in [place] the Medical morning. Branch glipiZIDE 0 Yes [id number] 10mg Take 1 [facility] [place] XL 10 mg 24 7-06 tablet by ity of hr tablet 00:00: mouth [place] 00 daily with Medical breakfast. Branch SITagliptin 0 Yes [id number] 2{tbl} Take 2 [facility] phos-metfor 7-06 tablets by it y of min 00:00: mouth in [place] ( the Medical XR) morning. Branch 50-1,000 mg per tablet Insulin Yes [id number] 20U inject 20 U nivers Glargine 7-06 Units ity of (LANTUS 00:00: under the [place] [facility] 00 skin in Medical U-100 the Branch INSULIN) morning. 100 unit/mL Decrease (3 mL) the long injection acting insulin to 20 units once daily to avoid any low BGs. If fasting BG drops < 90, he will continue decrease the insulin dose. lovastatin 0 Yes [id number] TAKE 1 U nivers 40 mg 7-06 TABLET BY ity of tablet 00:00: MOUTH WITH [place] 00 EVENING Medical MEAL Branch mirtazapine 0 Yes [id number] 15mg Take 1 [facility] 15 mg 7-06 tablet by ity of tablet 00:00: mouth at [place] [address] bedtime. Medical Branch pantoprazol 2022-0 Yes [id number] 40mg Take 1 [facility] e 40 mg EC 7-06 tablet by ity of tablet 00:00: mouth in [place] 00 the Medical morning. Branch amitriptyli 2022-0 Yes [id number] 25mg Take 1 [facility] ne 25 mg 7-06 tablet by ity of tablet 00:00: mouth at [place] [address] bedtime. Medical Branch fenofibrate 2022-0 Yes [id number] 54mg Take 1 [facility] 54 mg 7-06 tablet by ity of tablet 00:00: mouth in [place] 00 the Medical morning. Branch glipiZIDE 2022-0 Yes [id number] 10mg Take 1 [facility] [place] XL 10 mg 24 7-06 tablet by ity of hr tablet 00:00: mouth [place] 00 daily with Medical breakfast. Branch SITagliptin 2022-0 Yes [id number] 2{tbl} Take 2 [facility] phos-metfor 7-06 tablets by it y of min 00:00: mouth in [place] ( the Medical XR) morning. Branch 50-1,000 mg per tablet Insulin Yes [id number] 20U inject 20 U nivers Glargine 7-06 Units ity of (LANTUS 00:00: under the [place] [facility] 00 skin in Medical U-100 the [place] INSULIN) morning. 100 unit/mL Decrease (3 mL) the long injection acting insulin to 20 units once daily to avoid any low BGs. If fasting BG drops < 90, he will continue decrease the insulin dose. lovastatin 0 Yes [id number] TAKE 1 U nivers 40 mg 7-06 TABLET BY ity of tablet 00:00: MOUTH WITH [place] [address] EVENING Medical MEAL Branch mirtazapine 2022-0 Yes [id number] 15mg Take 1 [facility] 15 mg 7-06 tablet by ity of tablet 00:00: mouth at [place] [address] bedtime. Medical Branch pantoprazol 2022-0 Yes [id number] 40mg Take 1 [facility] e 40 mg EC 7-06 tablet by ity of tablet 00:00: mouth in [place] [address] the Medical morning. Branch amitriptyli 2022-0 Yes [id number] 25mg Take 1 [facility] ne 25 mg 7-06 tablet by ity of tablet 00:00: mouth at [place] [address] bedtime. Medical Branch fenofibrate 2022-0 Yes [id number] 54mg Take 1 [facility] 54 mg 7-06 tablet by ity of tablet 00:00: mouth in [place] 00 the Medical morning. Branch glipiZIDE 2022-0 Yes [id number] 10mg Take 1 [facility] [place] XL 10 mg 24 7-06 tablet by ity of hr tablet 00:00: mouth daily with Medical breakfast. Branch SITagliptin Yes [id number] 2{tbl} Take 2 [facility] phos-metfor 7-06 tablets by it y of min 00:00: mouth in [place] ( the Medical XR) morning. Branch 50-1,000 mg per tablet Insulin Yes [id number] 20U inject 20 U nivers Glargine 7-06 Units ity of (LANTUS 00:00: under the [place] [facility] 00 skin in Medical U-100 the Branch INSULIN) morning. 100 unit/mL Decrease (3 mL) the long injection acting insulin to 20 units once daily to avoid any low BGs. If fasting BG drops < 90, he will continue decrease the insulin dose. lovastatin Yes [id number] TAKE 1 U nivers 40 mg 7-06 TABLET BY ity of tablet 00:00: MOUTH WITH 00 EVENING Medical MEAL Branch mirtazapine Yes [id number] 15mg Take 1 [facility] 15 mg 7-06 tablet by ity of tablet 00:00: mouth at [place] 00 bedtime. Medical Branch pantoprazol Yes [id number] 40mg Take 1 [facility] e 40 mg EC 7-06 tablet by ity of tablet 00:00: mouth in [place] the Medical morning. Branch amitriptyli Yes [id number] 25mg Take 1 [facility] ne 25 mg 7-06 tablet by ity of tablet 00:00: mouth at [place] 00 bedtime. Medical Branch fenofibrate Yes [id number] 54mg Take 1 [facility] 54 mg 7-06 tablet by ity of tablet 00:00: mouth in [place] the Medical morning. Branch glipiZIDE Yes [id number] 10mg Take 1 [facility] [place] XL 10 mg 24 7-06 tablet by ity of hr tablet 00:00: mouth 00 daily with Medical breakfast. Branch SITagliptin Yes [id number] 2{tbl} Take 2 [facility] phos-metfor 7-06 tablets by it y of min 00:00: mouth in [place] ( the Medical XR) morning. Branch 50-1,000 mg per tablet Insulin Yes [id number] 20U inject 20 U nivers Glargine 7-06 Units ity of (LANTUS 00:00: under the [facility] 00 skin in Medical U-100 the Branch INSULIN) morning. 100 unit/mL Decrease (3 mL) the long injection acting insulin to 20 units once daily to avoid any low BGs. If fasting BG drops < 90, he will continue decrease the insulin dose. lovastatin 0 Yes [id number] TAKE 1 U nivers 40 mg 7-06 TABLET BY ity of tablet 00:00: MOUTH WITH [place] 00 EVENING Medical MEAL Branch mirtazapine 0 Yes [id number] 15mg Take 1 [facility] 15 mg 7-06 tablet by ity of tablet 00:00: mouth at [place] [address] bedtime. Medical Branch pantoprazol Yes [id number] 40mg Take 1 [facility] e 40 mg EC 7-06 tablet by ity of tablet 00:00: mouth in [place] 00 the Medical morning. Branch amitriptyli 0 Yes [id number] 25mg Take 1 [facility] ne 25 mg 7-06 tablet by ity of tablet 00:00: mouth at [place] [address] bedtime. Medical Branch fenofibrate 0 Yes [id number] 54mg Take 1 [facility] 54 mg 7-06 tablet by ity of tablet 00:00: mouth in [place] 00 the Medical morning. Branch glipiZIDE Yes [id number] 10mg Take 1 [facility] [place] XL 10 mg 24 7-06 tablet by ity of hr tablet 00:00: mouth [place] 00 daily with Medical breakfast. Branch SITagliptin 0 Yes [id number] 2{tbl} Take 2 [facility] phos-metfor 7-06 tablets by it y of min 00:00: mouth in [place] ( the Medical XR) morning. Branch 50-1,000 mg per tablet Insulin Yes [id number] 20U inject 20 U nivers Glargine 7-06 Units ity of (LANTUS 00:00: under the [place] [facility] 00 skin in Medical U-100 the Branch INSULIN) morning. 100 unit/mL Decrease (3 mL) the long injection acting insulin to 20 units once daily to avoid any low BGs. If fasting BG drops < 90, he will continue decrease the insulin dose. lovastatin 2023-0 Yes [id number] TAKE 1 U nivers 40 mg 7-06 TABLET BY ity of tablet 00:00: MOUTH WITH [place] 00 EVENING Medical MEAL Branch mirtazapine 2022-0 Yes [id number] 15mg Take 1 [facility] 15 mg 7-06 tablet by ity of tablet 00:00: mouth at [place] [address] bedtime. Medical Branch pantoprazol 2022-0 Yes [id number] 40mg Take 1 [facility] e 40 mg EC 7-06 tablet by ity of tablet 00:00: mouth in [place] 00 the Medical morning. Branch amitriptyli 2022-0 Yes [id number] 25mg Take 1 [facility] ne 25 mg 7-06 tablet by ity of tablet 00:00: mouth at [place] [address] bedtime. Medical Branch fenofibrate 2022-0 Yes [id number] 54mg Take 1 [facility] 54 mg 7-06 tablet by ity of tablet 00:00: mouth in [place] the Medical morning. Branch glipiZIDE 0 Yes [id number] 10mg Take 1 [facility] [place] XL 10 mg 24 7-06 tablet by ity of hr tablet 00:00: mouth [place] 00 daily with Medical breakfast. Branch SITagliptin 0 Yes [id number] 2{tbl} Take 2 [facility] phos-metfor 7-06 tablets by it y of min 00:00: mouth in [place] ( the Medical XR) morning. Branch 50-1,000 mg per tablet Insulin Yes [id number] 20U inject 20 U nivers Glargine 7-06 Units ity of (LANTUS 00:00: under the [place] [facility] 00 skin in Medical U-100 the Branch INSULIN) morning. 100 unit/mL Decrease (3 mL) the long injection acting insulin to 20 units once daily to avoid any low BGs. If fasting BG drops < 90, he will continue decrease the insulin dose. lovastatin 0 Yes [id number] TAKE 1 U nivers 40 mg 7-06 TABLET BY ity of tablet 00:00: MOUTH WITH [place] 00 EVENING Medical MEAL Branch mirtazapine 0 Yes [id number] 15mg Take 1 [facility] 15 mg 7-06 tablet by ity of tablet 00:00: mouth at [place] [address] bedtime. Medical Branch pantoprazol 2022-0 Yes [id number] 40mg Take 1 [facility] e 40 mg EC 7-06 tablet by ity of tablet 00:00: mouth in [place] 00 the Medical morning. Branch amitriptyli 2022-0 Yes [id number] 25mg Take 1 [facility] ne 25 mg 7-06 tablet by ity of tablet 00:00: mouth at [place] [address] bedtime. Medical Branch fenofibrate 2022-0 Yes [id number] 54mg Take 1 [facility] 54 mg 7-06 tablet by ity of tablet 00:00: mouth in [place] 00 the Medical morning. Branch glipiZIDE 2022-0 Yes [id number] 10mg Take 1 [facility] [place] XL 10 mg 24 7-06 tablet by ity of hr tablet 00:00: mouth [place] 00 daily with Medical breakfast. Branch SITagliptin 2022-0 Yes [id number] 2{tbl} Take 2 [facility] phos-metfor 7-06 tablets by it y of min 00:00: mouth in [place] ( the Medical XR) morning. Branch 50-1,000 mg per tablet Insulin Yes [id number] 20U inject 20 U nivers Glargine 7-06 Units ity of (LANTUS 00:00: under the [place] [facility] 00 skin in [facility] U-100 the [place] INSULIN) morning. 100 unit/mL Decrease (3 mL) the long injection acting insulin to 20 units once daily to avoid any low BGs. If fasting BG drops < 90, he will continue decrease the insulin dose. lovastatin 0 Yes [id number] TAKE 1 U nivers 40 mg 7-06 TABLET BY ity of tablet 00:00: MOUTH WITH [place] 00 EVENING Medical MEAL Branch mirtazapine 2022-0 Yes [id number] 15mg Take 1 [facility] 15 mg 7-06 tablet by ity of tablet 00:00: mouth at [place] [address] bedtime. Medical Branch pantoprazol 2022-0 Yes [id number] 40mg Take 1 [facility] e 40 mg EC 7-06 tablet by ity of tablet 00:00: mouth in [place] 00 the Medical morning. Branch amitriptyli 2022-0 Yes [id number] 25mg Take 1 [facility] ne 25 mg 7-06 tablet by ity of tablet 00:00: mouth at [place] [address] bedtime. Medical Branch fenofibrate 2022-0 Yes [id number] 54mg Take 1 [facility] 54 mg 7-06 tablet by ity of tablet 00:00: mouth in [place] 00 the Medical morning. Branch glipiZIDE Yes [id number] 10mg Take 1 [facility] [place] XL 10 mg 24 7-06 tablet by ity of hr tablet 00:00: mouth [place] 00 daily with Medical breakfast. Branch SITagliptin Yes [id number] 2{tbl} Take 2 [facility] phos-metfor 7-06 tablets by it y of min 00:00: mouth in [place] ( the Medical XR) morning. Branch 50-1,000 mg per tablet Insulin Yes [id number] 20U inject 20 U nivers Glargine 7-06 Units ity of (LANTUS 00:00: under the [place] [facility] 00 skin in Medical U-100 the Branch INSULIN) morning. 100 unit/mL Decrease (3 mL) the long injection acting insulin to 20 units once daily to avoid any low BGs. If fasting BG drops < 90, he will continue decrease the insulin dose. lovastatin Yes [id number] TAKE 1 U nivers 40 mg 7-06 TABLET BY ity of tablet 00:00: MOUTH WITH [place] 00 EVENING Medical MEAL Branch mirtazapine Yes [id number] 15mg Take 1 [facility] 15 mg 7-06 tablet by ity of tablet 00:00: mouth at [place] [address] bedtime. Medical Branch pantoprazol Yes [id number] 40mg Take 1 [facility] e 40 mg EC 7-06 tablet by ity of tablet 00:00: mouth in [place] 00 the Medical morning. Branch amitriptyli Yes [id number] 25mg Take 1 [facility] ne 25 mg 7- tablet by ity of tablet 00:00: mouth at [place] 00 bedtime. Medical Branch rivastigmin 3- No [id number] 3mg Take 1 [facility] e tartrate 12-17-24 capsule by it y of 3 mg 00:00: 00:00 mouth [place] capsule 00 :00 every Medical morning Branch and evening. rivastigmin 2022- No [id number] 3mg Take 1 [facility] e tartrate 12-17-24 capsule by it y of 3 mg 00:00: 00:00 mouth [place] capsule 00 :00 every Medical morning Branch and evening. ciprofloxac Yes [id number] 4[drp] Place 4 [facility] in-dexameth 7- [id number] Drops in ity of asone 00:00: right ear [place] 0.3-0.1 % 00 in the Medical otic drops morning Branch and 4 Drops in the evening. ciprofloxac Yes [id number] 4[drp] Place 4 [facility] in-dexameth 7- [id number] Drops in ity of asone 00:00: right ear [place] 0.3-0.1 % 00 in the Medical otic drops morning Branch and 4 Drops in the evening. ciprofloxac Yes [id number] 4[drp] Place 4 [facility] in-dexameth 7- [id number] Drops in ity of asone 00:00: right ear [place] 0.3-0.1 % 00 in the Medical otic drops morning Branch and 4 Drops in the evening. ciprofloxac Yes [id number] 4[drp] Place 4 [facility] in-dexameth - [id number] Drops in ity of asone 00:00: right ear [place] 0.3-0.1 % 00 in the Medical otic drops morning Branch and 4 Drops in the evening. ciprofloxac Yes [id number] 4[drp] Place 4 [facility] in-dexameth - [id number] Drops in ity of asone 00:00: right ear [place] 0.3-0.1 % 00 in the Medical otic drops morning Branch and 4 Drops in the evening. ciprofloxac Yes [id number] 4[drp] Place 4 [facility] in-dexameth - [id number] Drops in ity of asone 00:00: right ear [place] 0.3-0.1 % 00 in the Medical otic drops morning Branch and 4 Drops in the evening. ciprofloxac Yes [id number] 4[drp] Place 4 [facility] in-dexameth 7- [id number] Drops in ity of asone 00:00: right ear [place] 0.3-0.1 % 00 in the Medical otic drops morning Branch and 4 Drops in the evening. ciprofloxac Yes [id number] 4[drp] Place 4 [facility] in-dexameth 7- [id number] Drops in ity of asone 00:00: right ear [place] 0.3-0.1 % 00 in the Medical otic drops morning Branch and 4 Drops in the evening. ciprofloxac Yes [id number] 4[drp] Place 4 [facility] in-dexameth 12-12 [id number] Drops in ity of asone 00:00: right ear [place] 0.3-0.1 % 00 in the Medical otic drops morning Branch and 4 Drops in the evening. ciprofloxac Yes [id number] 4[drp] Place 4 [facility] in-dexameth 12-12 [id number] Drops in ity of asone 00:00: right ear [place] 0.3-0.1 % 00 in the Medical otic drops morning Branch and 4 Drops in the evening. ciprofloxac Yes [id number] 4[drp] Place 4 [facility] in-dexameth 12-12 [id number] Drops in ity of asone 00:00: right ear [place] 0.3-0.1 % 00 in the Medical otic drops morning Branch and 4 Drops in the evening. ciprofloxac Yes [id number] 4[drp] Place 4 [facility] in-dexameth 12-12 [id number] Drops in ity of asone 00:00: right ear [place] 0.3-0.1 % 00 in the Medical otic drops morning Branch and 4 Drops in the evening. ciprofloxac Yes [id number] 4[drp] Place 4 [facility] in-dexameth 12-12 [id number] Drops in ity of asone 00:00: right ear [place] 0.3-0.1 % 00 in the Medical otic drops morning Branch and 4 Drops in the evening. ciprofloxac Yes [id number] 4[drp] Place 4 [facility] in-dexameth 12-12 [id number] Drops in ity of asone 00:00: right ear [place] 0.3-0.1 % 00 in the Medical otic drops morning Branch and 4 Drops in the evening. ciprofloxac Yes [id number] 4[drp] Place 4 [facility] in-dexameth 12-12 [id number] Drops in ity of asone 00:00: right ear [place] 0.3-0.1 % 00 in the Medical otic drops morning Branch and 4 Drops in the evening. ciprofloxac 2022-0 Yes [id number] 4[drp] Place 4 [facility] in-dexameth 7- [id number] Drops in ity of asone 00:00: right ear [place] 0.3-0.1 % 00 in the Medical otic drops morning Branch and 4 Drops in the evening. ciprofloxac 2022-0 Yes [id number] 4[drp] Place 4 [facility] in-dexameth - [id number] Drops in ity of asone 00:00: right ear [place] 0.3-0.1 % 00 in the Medical otic drops morning Branch and 4 Drops in the evening. ciprofloxac 2022-0 Yes [id number] 4[drp] Place 4 [facility] in-dexameth - [id number] Drops in ity of asone 00:00: right ear [place] 0.3-0.1 % 00 in the Medical otic drops morning Branch and 4 Drops in the evening. ciprofloxac 2022-0 Yes [id number] 4[drp] Place 4 [facility] in-dexameth 12-12 [id number] Drops in ity of asone 00:00: right ear [place] 0.3-0.1 % 00 in the Medical otic drops morning Branch and 4 Drops in the evening. ciprofloxac 2022-0 Yes [id number] 4[drp] Place 4 [facility] in-dexameth 12-12 [id number] Drops in ity of asone 00:00: right ear [place] 0.3-0.1 % 00 in the Medical otic drops morning Branch and 4 Drops in the evening. ciprofloxac 2022-0 Yes [id number] 4[drp] Place 4 [facility] in-dexameth - 38466 Drops in ity of asone 00:00: right ear [place] 0.3-0.1 % 00 in the Medical otic drops morning Branch and 4 Drops in the evening. ciprofloxac 2022-0 Yes [id number] 4[drp] Place 4 [facility] in-dexameth - 60501 Drops in ity of asone 00:00: right ear [place] 0.3-0.1 % 00 in the Medical otic drops morning Branch and 4 Drops in the evening. ciprofloxac Yes [id number] 4[drp] Place 4 [facility] in-dexameth 7- 24478 Drops in ity of asone 00:00: right ear [place] 0.3-0.1 % 00 in the Medical otic drops morning Branch and 4 Drops in the evening. ciprofloxac Yes [id number] 4[drp] Place 4 [facility] in-dexameth 7- 90276 Drops in ity of asone 00:00: right ear [place] 0.3-0.1 % 00 in the Medical otic drops morning Branch and 4 Drops in the evening. ciprofloxac Yes [id number] 4[drp] Place 4 [facility] in-dexameth - 33605 Drops in ity of asone 00:00: right ear [place] 0.3-0.1 % 00 in the Medical otic drops morning Branch and 4 Drops in the evening. ciprofloxac Yes [id number] 4[drp] Place 4 [facility] in-dexameth - 60051 Drops in ity of asone 00:00: right ear [place] 0.3-0.1 % 00 in the Medical otic drops morning Branch and 4 Drops in the evening. ciprofloxac Yes [id number] 4[drp] Place 4 [facility] in-dexameth 7- 55131 Drops in ity of asone 00:00: right ear [place] 0.3-0.1 % 00 in the Medical otic drops morning Branch and 4 Drops in the evening. ciprofloxac Yes [id number] 4[drp] Place 4 [facility] in-dexameth 7- 38629 Drops in ity of asone 00:00: right ear [place] 0.3-0.1 % 00 in the Medical otic drops morning Branch and 4 Drops in the evening. ciprofloxac Yes [id number] 4[drp] Place 4 [facility] in-dexameth 7- 16757 Drops in ity of asone 00:00: right ear [place] 0.3-0.1 % 00 in the Medical otic drops morning Branch and 4 Drops in the evening. ciprofloxac Yes [id number] 4[drp] Place 4 [facility] in-dexameth 7- 10245 Drops in ity of asone 00:00: right ear [place] 0.3-0.1 % 00 in the Medical otic drops morning Branch and 4 Drops in the evening. ciprofloxac 0 Yes [id number] 4[drp] Place 4 [facility] in-dexameth - 53962 Drops in ity of asone 00:00: right ear [place] 0.3-0.1 % 00 in the Medical otic drops morning Branch and 4 Drops in the evening. ciprofloxac Yes [id number] 4[drp] Place 4 [facility] in-dexameth - 87485 Drops in ity of asone 00:00: right ear [place] 0.3-0.1 % 00 in the Medical otic drops morning Branch and 4 Drops in the evening. ciprofloxac Yes [id number] 4[drp] Place 4 [facility] in-dexameth 12-12 11358 Drops in ity of asone 00:00: right ear [place] 0.3-0.1 % 00 in the Medical otic drops morning Branch and 4 Drops in the evening. ciprofloxac Yes [id number] 4[drp] Place 4 [facility] in-dexameth - 44863 Drops in ity of asone 00:00: right ear [place] 0.3-0.1 % 00 in the Medical otic drops morning Branch and 4 Drops in the evening. ciprofloxac Yes [id number] 4[drp] Place 4 [facility] in-dexameth - 69329 Drops in ity of asone 00:00: right ear [place] 0.3-0.1 % 00 in the Medical otic drops morning Branch and 4 Drops in the evening. ciprofloxac Yes [id number] 4[drp] Place 4 [facility] in-dexameth 7- 89930 Drops in ity of asone 00:00: right ear [place] 0.3-0.1 % 00 in the Medical otic drops morning Branch and 4 Drops in the evening. ciprofloxac 0 Yes [id number] 4[drp] Place 4 [facility] in-dexameth - 29693 Drops in ity of asone 00:00: right ear [place] 0.3-0.1 % 00 in the Medical otic drops morning Branch and 4 Drops in the evening. ciprofloxac 0 Yes [id number] 4[drp] Place 4 [facility] in-dexameth 12-12 98030 Drops in ity of asone 00:00: right ear [place] 0.3-0.1 % 00 in the Medical otic drops morning Branch and 4 Drops in the evening. ciprofloxac 0 Yes [id number] 4[drp] Place 4 [facility] in-dexameth - 18421 Drops in ity of asone 00:00: right ear [place] 0.3-0.1 % 00 in the Medical otic drops morning Branch and 4 Drops in the evening. ciprofloxac Yes [id number] 4[drp] Place 4 [facility] in-dexameth 12-12 83126 Drops in ity of asone 00:00: right ear [place] 0.3-0.1 % 00 in the Medical otic drops morning Branch and 4 Drops in the evening. ciprofloxac 0 Yes [id number] 4[drp] Place 4 [facility] in-dexameth - 85573 Drops in ity of asone 00:00: right ear [place] 0.3-0.1 % 00 in the Medical otic drops morning Branch and 4 Drops in the evening. ciprofloxac 0 Yes [id number] 4[drp] Place 4 [facility] in-dexameth 12-12 39515 Drops in ity of asone 00:00: right ear [place] 0.3-0.1 % 00 in the Medical otic drops morning Branch and 4 Drops in the evening. ciprofloxac 0 Yes [id number] 4[drp] Place 4 [facility] in-dexameth 7- 56820 Drops in ity of asone 00:00: right ear [place] 0.3-0.1 % 00 in the Medical otic drops morning Branch and 4 Drops in the evening. ciprofloxac Yes [id number] 4[drp] Place 4 [facility] in-dexameth 7 12508 Drops in ity of asone 00:00: right ear [place] 0.3-0.1 % 00 in the Medical otic drops morning Branch and 4 Drops in the evening. metFORMIN 0 2022- No 500mg Take 500 Un [place] 500 mg 6-28 06-28 mg by ity of tablet 14:42: 00:00 mouth [place] 11 :00 daily. Medical Branch neomycin-po Yes [id number] 3[drp] Place 3 [facility] lymyxin-hyd 6-28 Drops in ity of rocortisone 00:00: [place] ear [place] otic 00 4 (four) Medical solution times Branch daily. neomycin-po 0 Yes [id number] 3[drp] Place 3 [facility] lymyxin-hyd 6-28 Drops in ity of rocortisone 00:00: right ear [place] otic 00 4 (four) Medical solution times Branch daily. neomycin-po Yes [id number] 3[drp] Place 3 [facility] lymyxin-hyd 6-28 Drops in ity of rocortisone 00:00: [place] ear [place] otic 00 4 (four) Medical solution times Branch daily. flash Yes [id number] 1{kit} 1 Kit Unive rs glucose 6-28 CONTINUOUS ity of sensor 00:00: . [place] (FREESTYLE 00 Medical DEBORAH 14 Branch DAY SENSOR) Kit neomycin-po Yes [id number] 3[drp] Place 3 [facility] lymyxin-hyd 6-28 Drops in ity of rocortisone 00:00: right ear [place] otic 00 4 (four) Medical solution times Branch daily. flash Yes [id number] 1{kit} 1 Kit Unive rs glucose 6-28 CONTINUOUS ity of sensor 00:00: . [place] (FREESTYLE 00 Medical DEBORAH 14 Branch DAY SENSOR) Kit JANUMET XR Yes TAKE 2 Unive rs 50-1,000 mg 6-28 TABLETS BY it y of per tablet 00:00: MOUTH [place] 00 EVERY DAY Medical Branch neomycin-po 0 Yes [id number] 3[drp] Place 3 [facility] lymyxin-hyd 6-28 Drops in ity of rocortisone 00:00: right ear [place] otic 00 4 (four) Medical solution times Branch daily. flash Yes [id number] 1{kit} 1 Kit Unive rs glucose 6-28 CONTINUOUS ity of sensor 00:00: . [place] (FREESTYLE 00 Medical DEBORAH 14 Branch DAY SENSOR) Kit JANUMET XR 2022-0 Yes TAKE 2 Unive rs 50-1,000 mg 6-28 TABLETS BY it y of per tablet 00:00: MOUTH [place] EVERY DAY Medical Branch neomycin-po 2022-0 Yes [id number] 3[drp] Place 3 [facility] lymyxin-hyd 6-28 Drops in ity of rocortisone 00:00: right ear [place] otic 00 4 (four) Medical solution times Branch daily. flash 0 Yes [id number] 1{kit} 1 Kit Unive rs glucose 6-28 CONTINUOUS ity of sensor 00:00: . [place] (FREESTYLE 00 Medical DEBORAH Branch SENSOR) Kit JANUMET XR 0 Yes TAKE 2 Unive rs 50-1,000 mg 6-28 TABLETS BY it y of per tablet 00:00: MOUTH [place] EVERY DAY Medical Branch neomycin-po 2022-0 Yes [id number] 3[drp] Place 3 [facility] lymyxin-hyd 6-28 Drops in ity of rocortisone 00:00: right ear [place] otic 00 4 (four) Medical solution times Branch daily. flash 2022-0 Yes [id number] 1{kit} 1 Kit Unive rs glucose 6-28 CONTINUOUS ity of sensor 00:00: . [place] (FREESTYLE 00 Medical DEBORAH Branch SENSOR) Kit neomycin-po 2022-0 Yes [id number] 3[drp] Place 3 [facility] lymyxin-hyd 6-28 Drops in ity of rocortisone 00:00: right ear [place] otic 00 4 (four) Medical solution times Branch daily. flash 2022-0 Yes [id number] 1{kit} 1 Kit Unive rs glucose 6-28 CONTINUOUS ity of sensor 00:00: . [place] (FREESTYLE 00 Medical DEBORAH 14 Branch DAY SENSOR) Kit neomycin-po 2023-0 Yes [id number] 3[drp] Place 3 [facility] lymyxin-hyd 6-28 Drops in ity of rocortisone 00:00: right ear [place] otic 00 4 (four) Medical solution times Branch daily. flash 2022-0 Yes [id number] 1{kit} 1 Kit Unive rs glucose 6-28 CONTINUOUS ity of sensor 00:00: . [place] (FREESTYLE 00 Medical DEBORAH 14 Branch DAY SENSOR) Kit neomycin-po 2023-0 Yes [id number] 3[drp] Place 3 [facility] lymyxin-hyd 6-28 Drops in ity of rocortisone 00:00: right ear [place] otic 00 4 (four) Medical solution times Branch daily. flash 2022-0 Yes [id number] 1{kit} 1 Kit Unive rs glucose 6-28 CONTINUOUS ity of sensor 00:00: . [place] (FREESTYLE 00 Medical DEBORAH 14 Branch DAY SENSOR) Kit neomycin-po 2023-0 Yes [id number] 3[drp] Place 3 [facility] lymyxin-hyd 6-28 Drops in ity of rocortisone 00:00: right ear [place] otic 00 4 (four) Medical solution times Branch daily. flash 2022-0 Yes [id number] 1{kit} 1 Kit Unive rs glucose 6-28 CONTINUOUS ity of sensor 00:00: . [place] (FREESTYLE 00 Medical DEBORAH 14 Branch DAY SENSOR) Kit neomycin-po 2023-0 Yes [id number] 3[drp] Place 3 [facility] lymyxin-hyd 6-28 Drops in ity of rocortisone 00:00: right ear [place] otic 00 4 (four) Medical solution times Branch daily. flash 2022-0 Yes [id number] 1{kit} 1 Kit Unive rs glucose 6-28 CONTINUOUS ity of sensor 00:00: . [place] (FREESTYLE 00 Medical DEBORAH 14 Branch DAY SENSOR) Kit neomycin-po 2023-0 Yes [id number] 3[drp] Place 3 [facility] lymyxin-hyd 6-28 Drops in ity of rocortisone 00:00: right ear [place] otic 00 4 (four) Medical solution times Branch daily. flash 2022-0 Yes [id number] 1{kit} 1 Kit Unive rs glucose 6-28 CONTINUOUS ity of sensor 00:00: . [place] (FREESTYLE 00 Medical DEBORAH 14 Branch DAY SENSOR) Kit neomycin-po 2023-0 Yes [id number] 3[drp] Place 3 [facility] lymyxin-hyd 6-28 Drops in ity of rocortisone 00:00: right ear [place] otic 00 4 (four) Medical solution times Branch daily. flash 2023-0 Yes [id number] 1{kit} 1 Kit Unive rs glucose 6-28 CONTINUOUS ity of sensor 00:00: . [place] (FREESTYLE 00 Medical DEBORAH 14 Branch DAY SENSOR) Kit neomycin-po 2023-0 Yes [id number] 3[drp] Place 3 [facility] lymyxin-hyd 6-28 Drops in ity of rocortisone 00:00: right ear [place] otic 00 4 (four) Medical solution times Branch daily. flash 3-0 Yes [id number] 1{kit} 1 Kit Unive rs glucose 6-28 CONTINUOUS ity of sensor 00:00: . [place] (FREESTYLE 00 Medical DEBORAH 14 Branch DAY SENSOR) Kit neomycin-po 2023-0 Yes [id number] 3[drp] Place 3 [facility] lymyxin-hyd 6-28 Drops in ity of rocortisone 00:00: right ear [place] otic 00 4 (four) Medical solution times Branch daily. flash 2022-0 Yes [id number] 1{kit} 1 Kit Unive rs glucose 6-28 CONTINUOUS ity of sensor 00:00: . [place] (FREESTYLE 00 Medical DEBORAH 14 Branch DAY SENSOR) Kit neomycin-po 2023-0 Yes [id number] 3[drp] Place 3 [facility] lymyxin-hyd 6-28 Drops in ity of rocortisone 00:00: right ear [place] otic 00 4 (four) Medical solution times Branch daily. flash 2023-0 Yes [id number] 1{kit} 1 Kit Unive rs glucose 6-28 CONTINUOUS ity of sensor 00:00: . [place] (FREESTYLE 00 Medical DEBORAH 14 Branch DAY SENSOR) Kit flash 2023-0 Yes [id number] 1{kit} 1 Kit Unive rs glucose 6-28 CONTINUOUS ity of sensor 00:00: . [place] (FREESTYLE 00 Medical DEBORAH 14 Branch DAY SENSOR) Kit flash 2023-0 Yes [id number] 1{kit} 1 Kit Unive rs glucose 6-28 CONTINUOUS ity of sensor 00:00: . [place] (FREESTYLE 00 Medical DEBORAH 14 Branch DAY SENSOR) Kit flash 2023-0 Yes [id number] 1{kit} 1 Kit Unive rs glucose 6-28 CONTINUOUS ity of sensor 00:00: . [place] (FREESTYLE 00 Medical DEBORAH 14 Branch DAY SENSOR) Kit flash 2023-0 Yes [id number] 1{kit} 1 Kit Unive rs glucose 6-28 CONTINUOUS ity of sensor 00:00: . [place] (FREESTYLE 00 Medical DEBORAH 14 Branch DAY SENSOR) Kit flash 2023-0 Yes [id number] 1{kit} 1 Kit Unive rs glucose 6-28 CONTINUOUS ity of sensor 00:00: . [place] (FREESTYLE 00 Medical DEBORAH 14 Branch DAY SENSOR) Kit flash 2023-0 Yes [id number] 1{kit} 1 Kit Unive rs glucose 6-28 CONTINUOUS ity of sensor 00:00: . [place] (FREESTYLE 00 Medical DEBORAH 14 Branch DAY SENSOR) Kit flash 2023-0 Yes [id number] 1{kit} 1 Kit Unive rs glucose 6-28 CONTINUOUS ity of sensor 00:00: . [place] (FREESTYLE 00 Medical DEBORAH 14 Branch DAY SENSOR) Kit flash 2023-0 Yes [id number] 1{kit} 1 Kit Unive rs glucose 6-28 CONTINUOUS ity of sensor 00:00: . [place] (FREESTYLE 00 Medical DEBORAH 14 Branch DAY SENSOR) Kit flash 2023-0 Yes [id number] 1{kit} 1 Kit Unive rs glucose 6-28 CONTINUOUS ity of sensor 00:00: . [place] (FREESTYLE 00 Medical DEBORAH 14 Branch DAY SENSOR) Kit flash 2023-0 Yes [id number] 1{kit} 1 Kit Unive rs glucose 6-28 CONTINUOUS ity of sensor 00:00: . [place] (FREESTYLE 00 Medical DEBORAH 14 Branch DAY SENSOR) Kit flash 2023-0 Yes [id number] 1{kit} 1 Kit Unive rs glucose 6-28 CONTINUOUS ity of sensor 00:00: . [place] (FREESTYLE 00 Medical DEBORAH 14 Branch DAY SENSOR) Kit flash 2023-0 Yes [id number] 1{kit} 1 Kit Unive rs glucose 6-28 CONTINUOUS ity of sensor 00:00: . [place] (FREESTYLE 00 Medical DEBORAH 14 Branch DAY SENSOR) Kit flash 2023-0 Yes [id number] 1{kit} 1 Kit Unive rs glucose 6-28 CONTINUOUS ity of sensor 00:00: . [place] (FREESTYLE 00 Medical DEBORAH 14 Branch DAY SENSOR) Kit flash 2023-0 Yes [id number] 1{kit} 1 Kit Unive rs glucose 6-28 CONTINUOUS ity of sensor 00:00: . [place] (FREESTYLE 00 Medical DEBORAH 14 Branch DAY SENSOR) Kit flash 2023-0 Yes [id number] 1{kit} 1 Kit Unive rs glucose 6-28 CONTINUOUS ity of sensor 00:00: . [place] (FREESTYLE 00 Medical DEBORAH 14 Branch DAY SENSOR) Kit flash 3-0 Yes [id number] 1{kit} 1 Kit Unive rs glucose 6-28 CONTINUOUS ity of sensor 00:00: . [place] (FREESTYLE 00 Medical DEBORAH 14 Branch DAY SENSOR) Kit flash 3-0 Yes [id number] 1{kit} 1 Kit Unive rs glucose 6-28 CONTINUOUS ity of sensor 00:00: . [place] (FREESTYLE 00 Medical DEBORAH 14 Branch DAY SENSOR) Kit flash 3-0 Yes [id number] 1{kit} 1 Kit Unive rs glucose 6-28 CONTINUOUS ity of sensor 00:00: . [place] (FREESTYLE 00 Medical DEBORAH 14 Branch DAY SENSOR) Kit flash 3-0 Yes [id number] 1{kit} 1 Kit Unive rs glucose 6-28 CONTINUOUS ity of sensor 00:00: . [place] (FREESTYLE 00 Medical DEBORAH 14 Branch DAY SENSOR) Kit flash 3-0 Yes [id number] 1{kit} 1 Kit Unive rs glucose 6-28 CONTINUOUS ity of sensor 00:00: . [place] (FREESTYLE 00 Medical DEBORAH 14 Branch DAY SENSOR) Kit flash 3-0 Yes [id number] 1{kit} 1 Kit Unive rs glucose 6-28 CONTINUOUS ity of sensor 00:00: . [place] (FREESTYLE 00 Medical DEBORAH 14 Branch DAY SENSOR) Kit flash 3-0 Yes [id number] 1{kit} 1 Kit Unive rs glucose 6-28 CONTINUOUS ity of sensor 00:00: . [place] (FREESTYLE 00 Medical DEBORAH 14 Branch DAY SENSOR) Kit flash 2023-0 2023- No [id number] 1{kit} 1 Kit Univ ers glucose 6-28 10-24 CONTINUOUS ity o f sensor 00:00: 00:00 . [place] (FREESTYLE 00 :00 Medical DEBORAH 14 Branch DAY SENSOR) Kit neomycin-po 2022-0 2023- No [id number] 3[drp] Place 3 Univers lymyxin-hyd 6-28 07-24 Drops in ity of rocortisone 00:00: 00:00 right ear [place] otic 00 :00 4 (four) Medical solution times Branch daily. neomycin-po 2022- No [id number] 3[drp] Place 3 Univers lymyxin-hyd 6-28 07-24 Drops in ity of rocortisone 00:00: 00:00 right ear [place] otic 00 :00 4 (four) Medical solution times Branch daily. neomycin-po 2022-0 2022- No [id number] 3[drp] Place 3 Univers lymyxin-hyd 6-28 07-24 [...] tablet 10 :00 bedtime. Medical Branch CYCLOBENZAP Yes [id number] TAKE 1 Univers RINE 5 mg 6-20 TABLET BY ity o f tablet 00:00: MOUTH [place] 00 TWICE Medical DAILY Branch CYCLOBENZAP 0 Yes [id number] TAKE 1 Univers RINE 5 mg 6-20 TABLET BY ity o f tablet 00:00: MOUTH TWICE Medical DAILY Branch LOVASTATIN 2022-0 Yes [id number] TAKE 1 U nivers 40 mg 6-20 TABLET BY ity of tablet 00:00: MOUTH WITH EVENING Medical MEAL Branch CYCLOBENZAP 0 Yes [id number] TAKE 1 Univers RINE 5 mg 6-20 TABLET BY ity o f tablet 00:00: MOUTH [place] 00 TWICE Medical DAILY Branch LOVASTATIN 0 Yes [id number] TAKE 1 U nivers 40 mg 6-20 TABLET BY ity of tablet 00:00: MOUTH WITH [place] EVENING Medical MEAL Branch CYCLOBENZAP 0 Yes [id number] TAKE 1 Univers RINE 5 mg 6-20 TABLET BY ity o f tablet 00:00: MOUTH 00 TWICE Medical DAILY Branch LOVASTATIN 2023-0 Yes [id number] TAKE 1 U nivers 40 mg 6-20 TABLET BY ity of tablet 00:00: MOUTH WITH EVENING Medical MEAL Branch CYCLOBENZAP 3-0 Yes [id number] TAKE 1 Univers RINE 5 mg 6-20 TABLET BY ity o f tablet 00:00: MOUTH TWICE Medical DAILY Branch LOVASTATIN 2023-0 Yes [id number] TAKE 1 U nivers 40 mg 6-20 TABLET BY ity of tablet 00:00: MOUTH WITH EVENING Medical MEAL Branch CYCLOBENZAP 2022-0 Yes [id number] TAKE 1 Univers RINE 5 mg 6-20 TABLET BY ity o f tablet 00:00: MOUTH TWICE Medical DAILY Branch LOVASTATIN 3-0 Yes [id number] TAKE 1 U nivers 40 mg 6-20 TABLET BY ity of tablet 00:00: MOUTH WITH EVENING Medical MEAL Branch CYCLOBENZAP 2022-0 Yes [id number] TAKE 1 Univers RINE 5 mg 6-20 TABLET BY ity o f tablet 00:00: MOUTH TWICE Medical DAILY Branch LOVASTATIN 2023-0 Yes [id number] TAKE 1 U nivers 40 mg 6-20 TABLET BY ity of tablet 00:00: MOUTH WITH EVENING Medical MEAL Branch CYCLOBENZAP 2022-0 Yes [id number] TAKE 1 Univers RINE 5 mg 6-20 TABLET BY ity o f tablet 00:00: MOUTH TWICE Medical DAILY Branch LOVASTATIN 2023-0 Yes [id number] TAKE 1 U nivers 40 mg 6-20 TABLET BY ity of tablet 00:00: MOUTH WITH EVENING Medical MEAL Branch CYCLOBENZAP 3-0 Yes [id number] TAKE 1 Univers RINE 5 mg 6-20 TABLET BY ity o f tablet 00:00: MOUTH TWICE Medical DAILY Branch LOVASTATIN 2023-0 Yes [id number] TAKE 1 U nivers 40 mg 6-20 TABLET BY ity of tablet 00:00: MOUTH WITH EVENING Medical MEAL Branch CYCLOBENZAP 3-0 Yes [id number] TAKE 1 Univers RINE 5 mg 6-20 TABLET BY ity o f tablet 00:00: MOUTH TWICE Medical DAILY Branch CYCLOBENZAP 3-0 Yes [id number] TAKE 1 Univers RINE 5 mg 6-20 TABLET BY ity o f tablet 00:00: MOUTH TWICE Medical DAILY Branch CYCLOBENZAP 2023-0 Yes [id number] TAKE 1 Univers RINE 5 mg 6-20 TABLET BY ity o f tablet 00:00: MOUTH [place] 00 TWICE Medical DAILY Branch CYCLOBENZAP 2022-0 Yes [id number] TAKE 1 Univers RINE 5 mg 6-20 TABLET BY ity o f tablet 00:00: MOUTH [place] 00 TWICE Medical DAILY Branch CYCLOBENZAP 2022-0 Yes [id number] TAKE 1 Univers RINE 5 mg 6-20 TABLET BY ity o f tablet 00:00: MOUTH [place] 00 TWICE Medical DAILY Branch CYCLOBENZAP 2022-0 Yes [id number] TAKE 1 Univers RINE 5 mg 6-20 TABLET BY ity o f tablet 00:00: MOUTH [place] 00 TWICE Medical DAILY Branch CYCLOBENZAP 2022-0 3- No [id number] TAKE 1 Univers RINE 5 mg 6-20 07-13 TABLET BY ity of tablet 00:00: 00:00 [facility] 00 :00 TWICE Medical DAILY Branch CYCLOBENZAP 2022-0 2022- No [id number] TAKE 1 Univers RINE 5 mg 6-20 07-13 TABLET BY ity of tablet 00:00: 00:00 [facility] 00 :00 TWICE Medical DAILY Branch CYCLOBENZAP 2022-0 3- No [id number] TAKE 1 Univers RINE 5 mg 6-20 07-13 TABLET BY ity of tablet 00:00: 00:00 [facility] 00 :00 TWICE Medical DAILY Branch CYCLOBENZAP 2022-0 3- No [id number] TAKE 1 Univers RINE 5 mg 6-20 07-13 TABLET BY ity of tablet 00:00: 00:00 [facility] 00 :00 TWICE Medical DAILY Branch CYCLOBENZAP 2022-0 3- No [id number] TAKE 1 Univers RINE 5 mg 6-20 07-13 TABLET BY ity of tablet 00:00: 00:00 [facility] 00 :00 TWICE Medical DAILY Branch LOVASTATIN 2022-0 3- No [id number] TAKE 1 Univers 40 mg 6-20 07-06 TABLET BY ity of tablet 00:00: 00:00 [place]OU[place] 00 :00 EVENING Medical MEAL Branch AMITRIPTYLI 2022-0 Yes TAKE 1 Univ ers NE 25 mg 6-02 TABLET BY ity of tablet 00:00: MOUTH AT [place] 00 BEDTIME Medical Branch AMITRIPTYLI 2022-0 Yes TAKE 1 Univ ers NE 25 mg 6-02 TABLET BY ity of tablet 00:00: MOUTH AT [place] BEDTIME Medical Branch AMITRIPTYLI 2022-0 Yes TAKE 1 Univ ers NE 25 mg 6-02 TABLET BY ity of tablet 00:00: MOUTH AT [place] BEDTIME Medical Branch AMITRIPTYLI 2022-0 Yes TAKE 1 Univ ers NE 25 mg 6-02 TABLET BY ity of tablet 00:00: MOUTH AT [place] BEDTIME Medical Branch AMITRIPTYLI Yes TAKE 1 Univ ers NE 25 mg 6-02 TABLET BY ity of tablet 00:00: MOUTH AT [place] BEDTIME Medical Branch AMITRIPTYLI Yes TAKE 1 Univ ers NE 25 mg 6-02 TABLET BY ity of tablet 00:00: MOUTH AT [place] BEDTIME Medical Branch AMITRIPTYLI Yes TAKE 1 Univ ers NE 25 mg 6-02 TABLET BY ity of tablet 00:00: MOUTH AT [place] BEDTIME Medical Branch AMITRIPTYLI Yes TAKE 1 Univ ers NE 25 mg 6-02 TABLET BY ity of tablet 00:00: MOUTH AT [place] BEDTIME Medical Branch AMITRIPTYLI 0 Yes TAKE 1 Univ ers NE 25 mg 6-02 TABLET BY ity of tablet 00:00: MOUTH AT [place] BEDTIME Medical Branch AMITRIPTYLI 2022-0 Yes TAKE 1 Univ ers NE 25 mg 6-02 TABLET BY ity of tablet 00:00: MOUTH AT [place] BEDTIME Medical Branch AMITRIPTYLI 2022-0 Yes TAKE 1 Univ ers NE 25 mg 6-02 TABLET BY ity of tablet 00:00: MOUTH AT [place] BEDTIME Medical Branch AMITRIPTYLI 2022-0 3- No TAKE 1 Uni vers NE 25 mg 6-02 07-06 TABLET BY ity o f tablet 00:00: 00:00 MOUTH AT [place] 00 :00 BEDTIME Medical Branch CYCLOBENZAP 2022-0 Yes [id number] TAKE 1 Univers RINE 5 mg 5-22 TABLET BY ity o f tablet 00:00: MOUTH [place] TWICE Medical DAILY Branch CYCLOBENZAP 2022-0 Yes [id number] TAKE 1 [facility] RINE 5 mg 5-22 TABLET BY ity o f tablet 00:00: MOUTH [place] TWICE Medical DAILY Branch CYCLOBENZAP 2022-0 Yes [id number] TAKE 1 [facility] RINE 5 mg 5-22 TABLET BY ity o f tablet 00:00: MOUTH [place] 00 TWICE Medical DAILY Branch CYCLOBENZAP 3-0 2023- No [id number] TAKE 1 Univers RINE 5 mg 5-22 06-20 TABLET BY ity of tablet 00:00: 00:00 MOUTH [place] 00 :00 TWICE Medical DAILY Branch pantoprazol 3-0 3- No 40mg Take 40 mg Univers e 40 mg EC 5-18 05-18 by mouth ity of tablet 09:28: 00:00 daily. [place] 49 :00 Medical Branch PANTOPRAZOL 3-0 Yes TAKE 1 Univ ers E 40 mg EC 5-18 TABLET BY ity of tablet 00:00: [facility] 00 EVERY DAY Medical Branch PANTOPRAZOL 2022-0 Yes TAKE 1 Univ ers E 40 mg EC 5-18 TABLET BY ity of tablet 00:00: [facility] 00 EVERY DAY Medical Branch PANTOPRAZOL 3-0 Yes TAKE 1 Univ ers E 40 mg EC 5-18 TABLET BY ity of tablet 00:00: [facility] 00 EVERY DAY Medical Branch PANTOPRAZOL 3-0 Yes TAKE 1 Univ ers E 40 mg EC 5-18 TABLET BY ity of tablet 00:00: [facility] 00 EVERY DAY Medical Branch PANTOPRAZOL 3-0 Yes TAKE 1 Univ ers E 40 mg EC 5-18 TABLET BY ity of tablet 00:00: [facility] 00 EVERY DAY Medical Branch PANTOPRAZOL 3-0 Yes TAKE 1 Univ ers E 40 mg EC 5-18 TABLET BY ity of tablet 00:00: [facility] 00 EVERY DAY Medical Branch PANTOPRAZOL 3-0 Yes TAKE 1 Univ ers E 40 mg EC 5-18 TABLET BY ity of tablet 00:00: [facility] 00 EVERY DAY Medical Branch PANTOPRAZOL 3-0 Yes TAKE 1 Univ ers E 40 mg EC 5-18 TABLET BY ity of tablet 00:00: [facility] 00 EVERY DAY Medical Branch PANTOPRAZOL 3-0 Yes TAKE 1 Univ ers E 40 mg EC 5-18 TABLET BY ity of tablet 00:00: [facility] 00 EVERY DAY Medical Branch PANTOPRAZOL 3-0 Yes TAKE 1 Univ ers E 40 mg EC 5-18 TABLET BY ity of tablet 00:00: [facility] 00 EVERY DAY Medical Branch PANTOPRAZOL 3-0 Yes TAKE 1 Univ ers E 40 mg EC 5-18 TABLET BY ity of tablet 00:00: MOUTH [place] 00 EVERY DAY Medical Branch PANTOPRAZOL 2022-0 Yes TAKE 1 Univ ers E 40 mg EC 5-18 TABLET BY ity of tablet 00:00: MOUTH [place] 00 EVERY DAY Medical Branch PANTOPRAZOL 2022-0 Yes TAKE 1 Univ ers E 40 mg EC 5-18 TABLET BY ity of tablet 00:00: MOUTH [place] 00 EVERY DAY Medical Branch PANTOPRAZOL 0 2023- No TAKE 1 Uni vers E 40 mg EC 5-18 - TABLET BY ity of tablet 00:00: 00:00 MOUTH [place] 00 :00 EVERY DAY Medical Branch fenofibrate 2022-0 Yes [id number] 54mg Take 1 [facility] 54 mg 4-26 tablet by ity of tablet 00:00: mouth in [place] 00 the Medical morning. Branch fenofibrate 2022-0 Yes [id number] 54mg Take 1 [facility] 54 mg 4-26 tablet by ity of tablet 00:00: mouth in [place] 00 the Medical morning. Branch fenofibrate 2022-0 Yes [id number] 54mg Take 1 [facility] 54 mg 4-26 tablet by ity of tablet 00:00: mouth in [place] 00 the Medical morning. Branch fenofibrate 2022-0 Yes [id number] 54mg Take 1 [facility] 54 mg 4-26 tablet by ity of tablet 00:00: mouth in [place] 00 the Medical morning. Branch fenofibrate 3-0 Yes [id number] 54mg Take 1 [facility] 54 mg 4-26 tablet by ity of tablet 00:00: mouth in [place] 00 the Medical morning. Branch fenofibrate 3-0 Yes [id number] 54mg Take 1 [facility] 54 mg 4-26 tablet by ity of tablet 00:00: mouth in [place] 00 the Medical morning. Branch fenofibrate 2023-0 Yes [id number] 54mg Take 1 [facility] 54 mg 4-26 tablet by ity of tablet 00:00: mouth in [place] 00 the Medical morning. Branch fenofibrate 3-0 Yes [id number] 54mg Take 1 [facility] 54 mg 4-26 tablet by [facility] of tablet 00:00: mouth in [place] 00 the Medical morning. Branch fenofibrate 3-0 Yes [id number] 54mg Take 1 [facility] 54 mg 4-26 tablet by ity of tablet 00:00: mouth in [place] 00 the Medical morning. Branch fenofibrate 2022-0 Yes [id number] 54mg Take 1 [facility] 54 mg 4-26 tablet by ity of tablet 00:00: mouth in [place] the Medical morning. Branch fenofibrate 3-0 Yes [id number] 54mg Take 1 [facility] 54 mg 4-26 tablet by ity of tablet 00:00: mouth in [place] the Medical morning. Branch fenofibrate 3-0 Yes [id number] 54mg Take 1 [facility] 54 mg 4-26 tablet by ity of tablet 00:00: mouth in [place] 00 the Medical morning. Branch fenofibrate 3-0 Yes [id number] 54mg Take 1 [facility] 54 mg 4-26 tablet by ity of tablet 00:00: mouth in [place] the Medical morning. Branch fenofibrate 3-0 Yes [id number] 54mg Take 1 [facility] 54 mg 4-26 tablet by ity of tablet 00:00: mouth in [place] the Medical morning. Branch fenofibrate 3-0 Yes [id number] 54mg Take 1 [facility] 54 mg 4-26 tablet by ity of tablet 00:00: mouth in [place] the Medical morning. Branch fenofibrate 3-0 3- No [id number] 54mg Take 1 [facility] 54 mg 4-26 07-06 tablet by ity of tablet 00:00: 00:00 mouth in [place] 00 :00 the Medical morning. Branch CYCLOBENZAP 2022-0 Yes [id number] TAKE 1 [facility] RINE 5 mg 4-24 TABLET BY ity o f tablet 00:00: MOUTH [place] 00 TWICE Medical DAILY Branch CYCLOBENZAP 3-0 Yes [id number] TAKE 1 [facility] RINE 5 mg 4-24 TABLET BY ity o f tablet 00:00: MOUTH [place] 00 TWICE Medical DAILY Branch CYCLOBENZAP 3-0 Yes [id number] TAKE 1 [facility] RINE 5 mg 4-24 TABLET BY ity o f tablet 00:00: MOUTH [place] 00 TWICE Medical DAILY Branch CYCLOBENZAP 3-0 Yes [id number] TAKE 1 [facility] RINE 5 mg 4-24 TABLET BY ity o f tablet 00:00: MOUTH [place] 00 TWICE Medical DAILY Branch CYCLOBENZAP 3-0 2023- No [id number] TAKE 1 [facility] RINE 5 mg 4-24 05-22 TABLET BY ity of tablet 00:00: 00:00 MOUTH [place] 00 :00 TWICE Medical DAILY Branch rivastigmin 3-0 Yes [id number] 3mg Take 1 [facility] e tartrate 4-17 capsule by ity of 3 mg 00:00: mouth [place] capsule 00 every Medical morning Branch and evening. rivastigmin 2022-0 Yes [id number] 3mg Take 1 [facility] e tartrate 4-17 capsule by ity of 3 mg 00:00: mouth [place] capsule 00 every Medical morning Branch and evening. rivastigmin 3-0 Yes [id number] 3mg Take 1 [facility] e tartrate 4-17 capsule by ity of 3 mg 00:00: mouth [place] capsule 00 every Medical morning Branch and evening. rivastigmin 2022-0 Yes [id number] 3mg Take 1 [facility] e tartrate 4-17 capsule by ity of 3 mg 00:00: mouth [place] capsule 00 every Medical morning Branch and evening. rivastigmin 2022-0 Yes [id number] 3mg Take 1 [facility] e tartrate 4-17 capsule by ity of 3 mg 00:00: mouth [place] capsule 00 every Medical morning Branch and evening. rivastigmin 2022-0 Yes [id number] 3mg Take 1 [facility] e tartrate 4-17 capsule by ity of 3 mg 00:00: mouth [place] capsule 00 every Medical morning Branch and evening. rivastigmin 2022-0 Yes [id number] 3mg Take 1 [facility] e tartrate 4-17 capsule by ity of 3 mg 00:00: mouth [place] capsule 00 every Medical morning Branch and evening. rivastigmin 2022-0 Yes [id number] 3mg Take 1 [facility] e tartrate 4-17 capsule by ity of 3 mg 00:00: mouth [place] capsule 00 every Medical morning Branch and evening. rivastigmin 3-0 Yes [id number] 3mg Take 1 [facility] e tartrate 4-17 capsule by ity of 3 mg 00:00: mouth [place] capsule 00 every Medical morning Branch and evening. rivastigmin 3-0 Yes [id number] 3mg Take 1 [facility] e tartrate 4-17 capsule by ity of 3 mg 00:00: mouth [place] capsule 00 every Medical morning Branch and evening. rivastigmin 3-0 Yes [id number] 3mg Take 1 [facility] e tartrate 4-17 capsule by ity of 3 mg 00:00: mouth [place] capsule 00 every Medical morning Branch and evening. rivastigmin 3-0 Yes [id number] 3mg Take 1 [facility] e tartrate 4-17 capsule by ity of 3 mg 00:00: mouth [place] capsule 00 every Medical morning Branch and evening. rivastigmin 2022-0 Yes [id number] 3mg Take 1 [facility] e tartrate 4-17 capsule by ity of 3 mg 00:00: mouth [place] capsule 00 every Medical morning Branch and evening. rivastigmin 3-0 Yes [id number] 3mg Take 1 [facility] e tartrate 4-17 capsule by ity of 3 mg 00:00: mouth [place] capsule 00 every Medical morning Branch and evening. rivastigmin 2022-0 Yes [id number] 3mg Take 1 [facility] e tartrate 4-17 capsule by ity of 3 mg 00:00: mouth [place] capsule 00 every Medical morning Branch and evening. rivastigmin 2022-0 Yes [id number] 3mg Take 1 [facility] e tartrate 4-17 capsule by ity of 3 mg 00:00: mouth [place] capsule 00 every Medical morning Branch and evening. rivastigmin 2022-0 Yes [id number] 3mg Take 1 [facility] e tartrate 4-17 capsule by ity of 3 mg 00:00: mouth [place] capsule 00 every Medical morning Branch and evening. rivastigmin 2022-0 Yes [id number] 3mg Take 1 [facility] e tartrate 4-17 capsule by ity of 3 mg 00:00: mouth [place] capsule 00 every Medical morning Branch and evening. rivastigmin 2022-0 Yes [id number] 3mg Take 1 [facility] e tartrate 4-17 capsule by ity of 3 mg 00:00: mouth [place] capsule 00 every Medical morning Branch and evening. rivastigmin 2022-0 Yes [id number] 3mg Take 1 [facility] e tartrate 4-17 capsule by ity of 3 mg 00:00: mouth [place] capsule 00 every Medical morning Branch and evening. rivastigmin 3-0 Yes [id number] 3mg Take 1 [facility] e tartrate 4-17 capsule by ity of 3 mg 00:00: mouth [place] capsule 00 every Medical morning Branch and evening. rivastigmin 3-0 3- No [id number] 3mg Take 1 [facility] e tartrate 4-17 07-06 capsule by it y of 3 mg 00:00: 00:00 mouth [place] capsule 00 :00 every Medical morning Branch and evening. rivastigmin 2022-0 2022- No [id number] 3mg Take 1 [facility] e tartrate 4-17 04-17 capsule by it y of 3 mg 00:00: 00:00 mouth [place] capsule 00 :00 every Medical morning Branch and evening. rivastigmin 2022-0 2022- No [id number] 3mg Take 1 [facility] e tartrate 4-17 04-17 capsule by it y of 3 mg 00:00: 00:00 mouth [place] capsule 00 :00 every Medical morning Branch and evening. SITagliptin 2022- No Take by [facility] [place] -metformin 4-04 04-04 mouth. ity of (JANUMET 17:27: 00:00 Indication [place] XR) 39 :00 s: 2 tabs Medical 50-1,000 mg BID Branch per tablet JANUMET XR 2022-0 Yes TAKE 2 Unive [...] MOUTH EVERY DAY Medical Branch JANUMET XR 2023-0 Yes TAKE 2 Unive rs 50-1,000 mg 4-04 TABLETS BY it y of per tablet 00:00: MOUTH EVERY DAY Medical Branch JANUMET XR 2023-0 [...] 00:00: EVERY DAY Medical Branch JANUMET XR 2023-0 Yes TAKE 2 Unive rs 50-1,000 mg 4-04 TABLETS BY it y of per tablet 00:00: MOUTH EVERY DAY Medical Branch JANUMET XR 2023-0 Yes TAKE 2 Unive rs 50-1,000 mg 4-04 TABLETS BY it y of per tablet 00:00: MOUTH EVERY DAY Medical Branch JANUMET XR 2023-0 Yes TAKE 2 Unive rs 50-1,000 mg 4-04 TABLETS BY it y of per tablet 00:00: MOUTH EVERY DAY Medical Branch JANUMET XR 2023-0 Yes TAKE 2 Unive rs 50-1,000 mg 4-04 TABLETS BY it y of per tablet 00:00: 00 EVERY DAY Medical Branch JANUMET XR 2022-0 Yes TAKE 2 Unive rs 50-1,000 mg 4-04 TABLETS BY it y of per tablet 00:00: MOUTH [place] 00 EVERY DAY Medical Branch JANUMET XR 2022-0 Yes TAKE 2 Unive rs 50-1,000 mg 4-04 TABLETS BY it y of per tablet 00:00: MOUTH 00 EVERY DAY Medical Branch JANUMET XR 2022-0 2023- No TAKE 2 Univ ers 50-1,000 mg [...] TABLET BY ity of tablet 00:00: MOUTH [place] 00 EVERY DAY Medical Branch topiramate 2023-0 [...] 3-27 TABLET BY ity of tablet 00:00: [facility] EVERY DAY Medical Branch topiramate 2023-0 Yes TAKE 1 Unive rs 50 mg 3-27 TABLET BY ity of tablet 00:00: [facility] EVERY DAY Medical Branch topiramate 2023-0 Yes TAKE 1 Unive rs 50 mg 3-27 TABLET BY ity of tablet 00:00: [facility] EVERY DAY Medical Branch topiramate 2023-0 Yes TAKE 1 Unive rs 50 mg 3-27 TABLET BY ity of tablet 00:00: MOUTH EVERY DAY Medical Branch topiramate 2023-0 Yes TAKE 1 Unive rs 50 mg 3-27 TABLET BY ity of tablet 00:00: [facility] 00 EVERY DAY Medical Branch topiramate 2023-0 Yes TAKE 1 Unive rs 50 mg 3-27 TABLET BY ity of tablet 00:00: [facility] EVERY DAY Medical Branch topiramate 2023-0 Yes [...] 3-27 TABLET BY ity of tablet 00:00: [facility] EVERY DAY Medical Branch topiramate 2023-0 Yes [...] 3-27 TABLET BY ity of tablet 00:00: [facility] EVERY DAY Medical Branch topiramate 2023-0 Yes TAKE 1 Unive rs 50 mg 3-27 TABLET BY ity of tablet 00:00: MOUTH EVERY DAY Medical Branch topiramate 2023-0 Yes TAKE 1 Unive rs 50 mg 3-27 TABLET BY ity of tablet 00:00: [facility] EVERY DAY Medical Branch topiramate 2023-0 Yes TAKE 1 Unive rs 50 mg 3-27 TABLET BY ity of tablet 00:00: [facility] EVERY DAY Medical Branch topiramate 2023-0 Yes [...] 3-27 TABLET BY ity of tablet 00:00: [facility] 00 EVERY DAY Medical Branch topiramate 2023-0 Yes TAKE 1 Unive rs 50 mg 3-27 TABLET BY ity of tablet 00:00: [facility] 00 EVERY DAY Medical Branch topiramate 2023-0 Yes TAKE 1 Unive rs 50 mg 3-27 TABLET BY ity of tablet 00:00: [facility] 00 EVERY DAY Medical Branch topiramate 2023-0 Yes TAKE 1 Unive rs 50 mg 3-27 TABLET BY ity of tablet 00:00: [facility] 00 EVERY DAY Medical Branch topiramate 3-0 Yes TAKE 1 Unive rs 50 mg 3-27 TABLET BY ity of tablet 00:00: [facility] 00 EVERY DAY Medical Branch topiramate 3-0 Yes TAKE 1 Unive rs 50 mg 3-27 TABLET BY ity of tablet 00:00: [facility] 00 EVERY DAY Medical Branch topiramate 2023-0 2023- No TAKE 1 Univ ers 50 mg 3-27 08-29 TABLET BY ity of tablet 00:00: 00:00 [facility] 00 :00 EVERY DAY Medical Branch topiramate 2023-0 2023- No TAKE 1 Univ ers 50 mg 3-27 08-29 TABLET BY ity of tablet 00:00: 00:00 [facility] 00 :00 EVERY DAY Medical Branch LOVASTATIN 2023-0 Yes [id number] TAKE 1 U nivers 40 mg 3-21 TABLET BY ity of tablet 00:00: [facility] WITH [place] EVENING Medical MEAL Branch CYCLOBENZAP 3-0 Yes [id number] TAKE 1 [facility] RINE 5 mg 3-21 TABLET BY ity o f tablet 00:00: [facility] 00 TWICE Medical DAILY Branch LOVASTATIN 2023-0 Yes [id number] TAKE 1 U nivers 40 mg 3-21 TABLET BY ity of tablet 00:00: [facility] WITH [place] EVENING Medical MEAL Branch CYCLOBENZAP 3-0 Yes [id number] TAKE 1 [facility] RINE 5 mg 3-21 TABLET BY ity o f tablet 00:00: [facility] 00 TWICE Medical DAILY Branch LOVASTATIN 2023-0 Yes [id number] TAKE 1 U nivers 40 mg 3-21 TABLET BY ity of tablet 00:00: [facility] WITH [place] 00 EVENING Medical MEAL Branch CYCLOBENZAP 2023-0 Yes [id number] TAKE 1 [facility] RINE 5 mg 3-21 TABLET BY ity o f tablet 00:00: MOUTH TWICE Medical DAILY Branch LOVASTATIN 2023-0 Yes [id number] TAKE 1 U nivers 40 mg 3-21 TABLET BY ity of tablet 00:00: MOUTH WITH [place] EVENING Medical MEAL Branch CYCLOBENZAP 3-0 Yes [id number] TAKE 1 [facility] RINE 5 mg 3-21 TABLET BY ity o f tablet 00:00: MOUTH TWICE Medical DAILY Branch LOVASTATIN 2023-0 Yes [id number] TAKE 1 U nivers 40 mg 3-21 TABLET BY ity of tablet 00:00: MOUTH WITH [place] EVENING Medical MEAL Branch CYCLOBENZAP 2022-0 Yes [id number] TAKE 1 [facility] RINE 5 mg 3-21 TABLET BY ity o f tablet 00:00: MOUTH [place] TWICE Medical DAILY Branch LOVASTATIN 3-0 Yes [id number] TAKE 1 U nivers 40 mg 3-21 TABLET BY ity of tablet 00:00: MOUTH WITH [place] EVENING Medical MEAL Branch CYCLOBENZAP 3-0 Yes [id number] TAKE 1 [facility] RINE 5 mg 3-21 TABLET BY ity o f tablet 00:00: MOUTH [place] TWICE Medical DAILY Branch LOVASTATIN 2023-0 Yes [id number] TAKE 1 U nivers 40 mg 3-21 TABLET BY ity of tablet 00:00: MOUTH WITH [place] EVENING Medical MEAL Branch CYCLOBENZAP 3-0 Yes [id number] TAKE 1 [facility] RINE 5 mg 3-21 TABLET BY ity o f tablet 00:00: MOUTH [place] TWICE Medical DAILY Branch LOVASTATIN 2023-0 Yes [id number] TAKE 1 U nivers 40 mg 3-21 TABLET BY ity of tablet 00:00: MOUTH WITH [place] EVENING Medical MEAL Branch CYCLOBENZAP 3-0 Yes [id number] TAKE 1 [facility] RINE 5 mg 3-21 TABLET BY ity o f tablet 00:00: MOUTH TWICE Medical DAILY Branch LOVASTATIN 2023-0 Yes [id number] TAKE 1 U nivers 40 mg 3-21 TABLET BY ity of tablet 00:00: MOUTH WITH [place] EVENING Medical MEAL Branch CYCLOBENZAP 3-0 Yes [id number] TAKE 1 [facility] RINE 5 mg 3-21 TABLET BY ity o f tablet 00:00: MOUTH TWICE Medical DAILY Branch LOVASTATIN 2023-0 Yes [id number] TAKE 1 U nivers 40 mg 3-21 TABLET BY ity of tablet 00:00: MOUTH WITH EVENING Medical MEAL Branch CYCLOBENZAP 3-0 Yes [id number] TAKE 1 [facility] RINE 5 mg 3-21 TABLET BY ity o f tablet 00:00: MOUTH TWICE Medical DAILY Branch LOVASTATIN 3-0 Yes [id number] TAKE 1 U nivers 40 mg 3-21 TABLET BY ity of tablet 00:00: MOUTH WITH EVENING Medical MEAL Branch LOVASTATIN 3-0 Yes [id number] TAKE 1 U nivers 40 mg 3-21 TABLET BY ity of tablet 00:00: MOUTH WITH EVENING Medical MEAL Branch LOVASTATIN 3-0 Yes [id number] TAKE 1 U nivers 40 mg 3-21 TABLET BY ity of tablet 00:00: MOUTH WITH EVENING Medical MEAL Branch LOVASTATIN 3-0 Yes [id number] TAKE 1 U nivers 40 mg 3-21 TABLET BY ity of tablet 00:00: MOUTH WITH EVENING Medical MEAL Branch LOVASTATIN 3-0 Yes [id number] TAKE 1 U nivers 40 mg 3-21 TABLET BY ity of tablet 00:00: MOUTH WITH EVENING Medical MEAL Branch LOVASTATIN 3-0 Yes [id number] TAKE 1 U nivers 40 mg 3-21 TABLET BY ity of tablet 00:00: MOUTH WITH EVENING Medical MEAL Branch LOVASTATIN 3-0 Yes [id number] TAKE 1 U nivers 40 mg 3-21 TABLET BY ity of tablet 00:00: MOUTH WITH EVENING Medical MEAL Branch LOVASTATIN 3-0 Yes [id number] TAKE 1 U nivers 40 mg 3-21 TABLET BY ity of tablet 00:00: MOUTH WITH EVENING Medical MEAL Branch LOVASTATIN 3-0 Yes [id number] TAKE 1 U nivers 40 mg 3-21 TABLET BY ity of tablet 00:00: MOUTH WITH EVENING Medical MEAL Branch LOVASTATIN 3-0 Yes [id number] TAKE 1 U nivers 40 mg 3-21 TABLET BY ity of tablet 00:00: MOUTH WITH [place] EVENING Medical MEAL Branch LOVASTATIN 2023-0 2023- No [id number] TAKE 1 [facility] 40 mg 3-21 06-20 TABLET BY ity of tablet 00:00: 00:00 MOUTH WITH [facility] 00 :00 EVENING Medical MEAL Branch CYCLOBENZAP 3-0 3- No [id number] TAKE 1 [facility] RINE 5 mg 3-21 -24 TABLET BY ity of tablet 00:00: 00:00 MOUTH [place] 00 :00 TWICE Medical DAILY Branch rivastigmin 3-0 Yes [id number] 1.5mg Take 1 [facility] e tartrate 3-01 capsule by ity of 1.5 mg 00:00: mouth [place] capsule 00 every Medical morning Branch and evening. rivastigmin 2022-0 Yes [id number] 1.5mg Take 1 [facility] e tartrate 3-01 capsule by ity of 1.5 mg 00:00: mouth [place] capsule 00 every Medical morning Branch and evening. rivastigmin 2022-0 Yes [id number] 1.5mg Take 1 [facility] e tartrate 3-01 capsule by ity of 1.5 mg 00:00: mouth [place] capsule 00 every Medical morning Branch and evening. rivastigmin 2022-0 Yes [id number] 1.5mg Take 1 [facility] e tartrate 3-01 capsule by ity of 1.5 mg 00:00: mouth [place] capsule 00 every Medical morning Branch and evening. rivastigmin 2022-0 Yes [id number] 1.5mg Take 1 [facility] e tartrate 3-01 capsule by ity of 1.5 mg 00:00: mouth [place] capsule 00 every Medical morning Branch and evening. rivastigmin 2022-0 Yes [id number] 1.5mg Take 1 [facility] e tartrate 3-01 capsule by ity of 1.5 mg 00:00: mouth [place] capsule 00 every Medical morning Branch and evening. rivastigmin 2022-0 Yes [id number] 1.5mg Take 1 [facility] e tartrate 3-01 capsule by ity of 1.5 mg 00:00: mouth [place] capsule 00 every Medical morning Branch and evening. rivastigmin 2022-0 3- No [id number] 1.5mg Take 1 [facility] e tartrate 3-01 04-17 capsule by it y of 1.5 mg 00:00: 00:00 mouth [place] capsule 00 :00 every Medical morning Branch and evening. rivastigmin 2022-0 2022- No [id number] 1.5mg Take 1 [facility] e tartrate 3-01 04-17 capsule by it y of 1.5 mg 00:00: 00:00 mouth [place] capsule 00 :00 every Medical morning Branch and evening. AMITRIPTYLI 2022-0 Yes TAKE 1 Univ ers [place] 25 mg 2-28 TABLET BY ity of tablet 00:00: MOUTH AT [place] BEDTIME Medical Branch AMITRIPTYLI 2022-0 Yes TAKE 1 [facility] ers [place] 25 mg 2-28 TABLET BY ity of tablet 00:00: [facility]TH AT [place] [facility] Branch AMITRIPTYLI 2022-0 Yes TAKE 1 [facility] ers [place] 25 mg 2-28 TABLET BY ity of tablet 00:00: MOUTH AT [place] BEDTIME Medical Branch AMITRIPTYLI 2022-0 Yes TAKE 1 [facility] ers [place] 25 mg 2-28 TABLET BY ity of tablet 00:00: MOUTH AT [place] BEDTIME Medical Branch AMITRIPTYLI 2022-0 Yes TAKE 1 [facility] ers [place] 25 mg 2-28 TABLET BY ity of tablet 00:00: MOUTH AT [place] [facility] Medical Branch AMITRIPTYLI 2022-0 Yes TAKE 1 [facility] ers [place] 25 mg 2-28 TABLET BY ity of tablet 00:00: MOUTH AT [place] [facility] Branch AMITRIPTYLI 2022-0 Yes TAKE 1 [facility] ers [place] 25 mg 2-28 TABLET BY ity of tablet 00:00: MOUTH AT [place] [facility] Medical Branch AMITRIPTYLI 2022-0 Yes TAKE 1 [facility] ers [place] 25 mg 2-28 TABLET BY ity of tablet 00:00: MOUTH AT [place] [facility] Medical Branch AMITRIPTYLI 2022-0 Yes TAKE 1 [facility] ers [place] 25 mg 2-28 TABLET BY ity of tablet 00:00: MOUTH AT [place] [facility] Medical Branch AMITRIPTYLI 2022-0 Yes TAKE 1 [facility] ers [place] 25 mg 2-28 TABLET BY ity of tablet 00:00: MOUTH AT [place] BEDTIME Medical Branch AMITRIPTYLI 2022-0 Yes TAKE 1 [facility] ers [place] 25 mg 2-28 TABLET BY ity of tablet 00:00: MOUTH AT [address] Medical Branch AMITRIPTYLI 2022-0 Yes TAKE 1 [facility] ers [place] 25 mg 2-28 TABLET BY ity of tablet 00:00: MOUTH AT [address] Branch AMITRIPTYLI 2022-0 Yes TAKE 1 [facility] ers [place] 25 mg 2-28 TABLET BY ity of tablet 00:00: MOUTH AT [place] BEDTIME Medical Branch AMITRIPTYLI 0 Yes TAKE 1 [facility] ers [place] 25 mg 2-28 TABLET BY ity of tablet 00:00: MOUTH AT [place] BEDTIME Medical Branch AMITRIPTYLI 2022-0 Yes TAKE 1 [facility] ers [place] 25 mg 2-28 TABLET BY ity of tablet 00:00: MOUTH AT [place] BEDTIME Medical Branch AMITRIPTYLI 2022-0 Yes TAKE 1 [facility] ers [place] 25 mg 2-28 TABLET BY ity of tablet 00:00: MOUTH AT [place] BEDTIME Medical Branch AMITRIPTYLI 2022-0 Yes TAKE 1 [facility] ers [place] 25 mg 2-28 TABLET BY ity of tablet 00:00: MOUTH AT [place] BEDTIME Medical Branch AMITRIPTYLI 2022-0 Yes TAKE 1 [facility] ers [place] 25 mg 2-28 TABLET BY ity of tablet 00:00: MOUTH AT [place] BEDTIME Medical Branch AMITRIPTYLI 2022-0 2022- No TAKE 1 Uni vers NE 25 mg 2-28 06-02 TABLET BY ity o f tablet 00:00: 00:00 MOUTH AT [place] 00 :00 BEDTIME Medical Branch CYCLOBENZAP 2022-0 Yes [id number] TAKE 1 [facility] RINE 5 mg 2-20 TABLET BY ity o f tablet 00:00: MOUTH [place] [address] TWICE Medical DAILY Branch CYCLOBENZAP 2022-0 Yes [id number] TAKE 1 [facility] RINE 5 mg 2-20 TABLET BY ity o f tablet 00:00: MOUTH [place] TWICE Medical DAILY Branch CYCLOBENZAP 2022-0 Yes [id number] TAKE 1 [facility] RINE 5 mg 2-20 TABLET BY ity o f tablet 00:00: MOUTH [place] 00 TWICE Medical DAILY Branch CYCLOBENZAP 2022-0 Yes [id number] TAKE 1 [facility] RINE 5 mg 2-20 TABLET BY ity o f tablet 00:00: MOUTH [place] 00 TWICE Medical DAILY Branch CYCLOBENZAP 2022-0 2023- No [id number] TAKE 1 [facility] RINE 5 mg 2-20 03-21 TABLET BY ity of tablet 00:00: 00:00 MOUTH [place] 00 :00 TWICE Medical DAILY Branch rivastigmin 2022-0 2023- No [id number] 1{patch Apply 1 [facility] e 4.6 mg/24 2-14 -17 } Patch to ity of hour patch 00:00: 04:59 skin in [place] 00 :00 the Medical morning Branch for 30 days. rivastigmin 2022- No [id number] 1{patch Apply 1 [facility] e 4.6 mg/24 2-14 -17 } Patch to ity of hour patch 00:00: 04:59 skin in [place] 00 :00 the Medical morning Branch for 30 days. rivastigmin 2022- No [id number] 1{patch Apply 1 [facility] e 4.6 mg/24 2-14 -17 } Patch to ity of hour patch 00:00: 04:59 skin in [place] 00 :00 the Medical morning Branch for 30 days. rivastigmin 2022- No [id number] 1{patch Apply 1 [facility] e 4.6 mg/24 2-14 -17 } Patch to ity of hour patch 00:00: 04:59 skin in [place] 00 :00 the Medical morning Branch for 30 days. rivastigmin 2022- No [id number] 1{patch Apply 1 [facility] e 4.6 mg/24 2-14 -17 } Patch to ity of hour patch 00:00: 04:59 skin in [place] 00 :00 the Medical morning Branch for 30 days. rivastigmin 2022- No [id number] 1{patch Apply 1 [facility] e 4.6 mg/24 2-14 -17 } Patch to ity of hour patch 00:00: 04:59 skin in [place] 00 :00 the Medical morning Branch for 30 days. rivastigmin 2022- No [id number] 1{patch Apply 1 [facility] e 4.6 mg/24 2-14 -17 } Patch to ity of hour patch 00:00: 04:59 skin in [place] 00 :00 the Medical morning Branch for 30 days. rivastigmin 2022- No [id number] 1{patch Apply 1 [facility] e 4.6 mg/24 2-14 -17 } Patch to ity of hour patch 00:00: 04:59 skin in [place] 00 :00 the Medical morning Branch for 30 days. rivastigmin 2022- No [id number] 1{patch Apply 1 [facility] e 4.6 mg/24 2-14 03-17 } Patch to ity of hour patch 00:00: 04:59 skin in [place] 00 :00 the Medical morning Branch for 30 days. rivastigmin 2022- No [id number] 1{patch Apply 1 [facility] e 4.6 mg/24 [...] o f human 03:45: 03:09 us, ONCE, [place] (HUMULIN R) 00 :00 1 dose, On [...] Therapy: Other (see Comments) iopamidol 2022- No [id number] 100mL 100 mL, Univers (ISOVUE 07-11 Intravenou ity o f 370-500 mL) 02:00: 01:02 s, ONCE, 1 [place] injection 00 :00 dose, On Medica l 100 mL Fri Branch 07/10/22 at 2000, Routine cephALEXin 2022-0 Yes [id number] 500mg Take 1 Univers (KEFLEX) 07-10 capsule by ity o f 500 mg 00:00: mouth 4 [place] capsule 00 (four) Medical times Branch daily. cephALEXin 2023-0 Yes [id number] 500mg Take 1 Univers (KEFLEX) 1-27 capsule by ity o f 500 mg 00:00: mouth 4 [place] capsule 00 (four) Medical times Branch daily. cephALEXin 2023-0 Yes [id number] 500mg Take 1 [facility] (KEFLEX) 1-27 capsule by ity o f 500 mg 00:00: mouth 4 [place] capsule 00 (four) Medical times Branch daily. cephALEXin 2023-0 Yes [id number] 500mg Take 1 Univers (KEFLEX) 1-27 capsule by ity o f 500 mg 00:00: mouth 4 [place] capsule 00 (four) Medical times Branch daily. cephALEXin 2023-0 Yes [id number] 500mg Take 1 Univers (KEFLEX) 1-27 capsule by ity o f 500 mg 00:00: mouth 4 [place] capsule 00 (four) Medical times Branch daily. cephALEXin 2023-0 Yes [id number] 500mg Take 1 Univers (KEFLEX) 1-27 capsule by ity o f 500 mg 00:00: mouth 4 [place] capsule 00 (four) Medical times Branch daily. cephALEXin 2023-0 Yes [id number] 500mg Take 1 Univers (KEFLEX) 1-27 capsule by ity o f 500 mg 00:00: mouth 4 [place] capsule 00 (four) Medical times Branch daily. cephALEXin 2023-0 Yes [id number] 500mg Take 1 Univers (KEFLEX) 1-27 capsule by ity o f 500 mg 00:00: mouth 4 [place] capsule 00 (four) Medical times Branch daily. cephALEXin 2023-0 Yes [id number] 500mg Take 1 Univers (KEFLEX) 1-27 capsule by ity o f 500 mg 00:00: mouth 4 [place] capsule 00 (four) Medical times Branch daily. cephALEXin 2023-0 Yes [id number] 500mg Take 1 Univers (KEFLEX) 1-27 capsule by ity o f 500 mg 00:00: mouth 4 [place] capsule 00 (four) Medical times Branch daily. cephALEXin 2023-0 Yes [id number] 500mg Take 1 [facility] (KEFLEX) 1-27 capsule by ity o f 500 mg 00:00: mouth 4 [place] capsule 00 (four) Medical times Branch daily. cephALEXin 2023-0 Yes [id number] 500mg Take 1 [facility] (KEFLEX) 1-27 capsule by ity o f 500 mg 00:00: mouth 4 [place] capsule 00 (four) Medical times Branch daily. cephALEXin 2023-0 Yes [id number] 500mg Take 1 [facility] (KEFLEX) 1-27 capsule by ity o f 500 mg 00:00: mouth 4 [place] capsule 00 (four) Medical times Branch daily. cephALEXin 2023-0 Yes [id number] 500mg Take 1 [facility] (KEFLEX) 1-27 capsule by ity o f 500 mg 00:00: mouth 4 [place] capsule 00 (four) Medical times Branch daily. cephALEXin 2023-0 Yes [id number] 500mg Take 1 Univers (KEFLEX) 1-27 capsule by ity o f 500 mg 00:00: mouth 4 [place] capsule 00 (four) Medical times Branch daily. cephALEXin 2023-0 Yes [id number] 500mg Take 1 Univers (KEFLEX) 1-27 capsule by ity o f 500 mg 00:00: mouth 4 [place] capsule 00 (four) Medical times Branch daily. cephALEXin 2023-0 Yes [id number] 500mg Take 1 Univers (KEFLEX) 1-27 capsule by ity o f 500 mg 00:00: mouth 4 [place] capsule 00 (four) Medical times Branch daily. cephALEXin 2023-0 Yes [id number] 500mg Take 1 Univers (KEFLEX) 1-27 capsule by ity o f 500 mg 00:00: mouth 4 [place] capsule 00 (four) Medical times Branch daily. cephALEXin 2023-0 Yes [id number] 500mg Take 1 [facility] (KEFLEX) 1-27 capsule by ity o f 500 mg 00:00: mouth 4 [place] capsule 00 (four) Medical times Branch daily. cephALEXin 2023-0 Yes [id number] 500mg Take 1 [facility] (KEFLEX) 1-27 capsule by ity o f 500 mg 00:00: mouth 4 [place] capsule 00 (four) Medical times Branch daily. cephALEXin 2023-0 Yes [id number] 500mg Take 1 [facility] (KEFLEX) 1-27 capsule by ity o f 500 mg 00:00: mouth 4 [place] capsule 00 (four) Medical times Branch daily. cephALEXin 2023-0 Yes [id number] 500mg Take 1 [facility] (KEFLEX) 1-27 capsule by ity o f 500 mg 00:00: mouth 4 [place] capsule 00 (four) Medical times Branch daily. cephALEXin 2023-0 Yes [id number] 500mg Take 1 [facility] (KEFLEX) 1-27 capsule by ity o f 500 mg 00:00: mouth 4 [place] capsule 00 (four) Medical times Branch daily. cephALEXin 2023-0 Yes [id number] 500mg Take 1 [facility] (KEFLEX) 1-27 capsule by ity o f 500 mg 00:00: mouth 4 [place] capsule 00 (four) Medical times Branch daily. cephALEXin 2023-0 Yes [id number] 500mg Take 1 [facility] (KEFLEX) 1-27 capsule by ity o f 500 mg 00:00: mouth 4 [place] capsule 00 (four) Medical times Branch daily. cephALEXin 2023-0 Yes [id number] 500mg Take 1 [facility] (KEFLEX) 1-27 capsule by ity o f 500 mg 00:00: mouth 4 [place] capsule 00 (four) Medical times Branch daily. cephALEXin 2023-0 Yes [id number] 500mg Take 1 [facility] (KEFLEX) 1-27 capsule by ity o f 500 mg 00:00: mouth 4 [place] capsule 00 (four) Medical times Branch daily. cephALEXin 2023-0 Yes [id number] 500mg Take 1 [facility] (KEFLEX) 1-27 capsule by ity o f 500 mg 00:00: mouth 4 [place] capsule 00 (four) Medical times Branch daily. cephALEXin 2023-0 Yes [id number] 500mg Take 1 [facility] (KEFLEX) 1-27 capsule by ity o f 500 mg 00:00: mouth 4 [place] capsule 00 (four) Medical times Branch daily. cephALEXin 2023-0 Yes [id number] 500mg Take 1 [facility] (KEFLEX) 1-27 capsule by ity o f 500 mg 00:00: mouth 4 [place] capsule 00 (four) Medical times Branch daily. cephALEXin 2023-0 Yes [id number] 500mg Take 1 [facility] (KEFLEX) 1-27 capsule by ity o f 500 mg 00:00: mouth 4 [place] capsule 00 (four) Medical times Branch daily. cephALEXin 2023-0 Yes [id number] 500mg Take 1 [facility] (KEFLEX) 1-27 capsule by ity o f 500 mg 00:00: mouth 4 [place] capsule 00 (four) Medical times Branch daily. cephALEXin 2023-0 Yes [id number] 500mg Take 1 [facility] (KEFLEX) 1-27 capsule by ity o f 500 mg 00:00: mouth 4 [place] capsule 00 (four) Medical times Branch daily. cephALEXin 2023-0 Yes [id number] 500mg Take 1 [facility] (KEFLEX) 1-27 capsule by ity o f 500 mg 00:00: mouth 4 [place] capsule 00 (four) Medical times Branch daily. cephALEXin 2023-0 Yes [id number] 500mg Take 1 [facility] (KEFLEX) 1-27 capsule by ity o f 500 mg 00:00: mouth 4 [place] capsule 00 (four) Medical times Branch daily. cephALEXin 2023-0 Yes [id number] 500mg Take 1 [facility] (KEFLEX) 1-27 capsule by ity o f 500 mg 00:00: mouth 4 [place] capsule 00 (four) Medical times Branch daily. cephALEXin 2023-0 Yes [id number] 500mg Take 1 [facility] (KEFLEX) 1-27 capsule by ity o f 500 mg 00:00: mouth 4 [place] capsule 00 (four) Medical times Branch daily. cephALEXin 2023-0 Yes [id number] 500mg Take 1 [facility] (KEFLEX) 1-27 capsule by ity o f 500 mg 00:00: mouth 4 [place] capsule 00 (four) Medical times Branch daily. cephALEXin 2023-0 Yes [id number] 500mg Take 1 [facility] (KEFLEX) 1-27 capsule by ity o f 500 mg 00:00: mouth 4 [place] capsule 00 (four) Medical times Branch daily. cephALEXin 2023-0 Yes [id number] 500mg Take 1 [facility] (KEFLEX) 1-27 capsule by ity o f 500 mg 00:00: mouth 4 [place] capsule 00 (four) Medical times Branch daily. cephALEXin 2023-0 Yes [id number] 500mg Take 1 [facility] (KEFLEX) 1-27 capsule by ity o f 500 mg 00:00: mouth 4 [place] capsule 00 (four) Medical times Branch daily. cephALEXin 2023-0 Yes [id number] 500mg Take 1 [facility] (KEFLEX) 1-27 capsule by ity o f 500 mg 00:00: mouth 4 [place] capsule 00 (four) Medical times Branch daily. cephALEXin 2023-0 Yes [id number] 500mg Take 1 [facility] (KEFLEX) 1-27 capsule by ity o f 500 mg 00:00: mouth 4 [place] capsule 00 (four) Medical times Branch daily. cephALEXin 2023-0 Yes [id number] 500mg Take 1 [facility] (KEFLEX) 1-27 capsule by ity o f 500 mg 00:00: mouth 4 [place] capsule 00 (four) Medical times Branch daily. cephALEXin 2023-0 Yes [id number] 500mg Take 1 [facility] (KEFLEX) 1-27 capsule by ity o f 500 mg 00:00: mouth 4 [place] capsule 00 (four) Medical times Branch daily. cephALEXin 2023-0 Yes [id number] 500mg Take 1 [facility] (KEFLEX) 1-27 capsule by ity o f 500 mg 00:00: mouth 4 [place] capsule 00 (four) Medical times Branch daily. cephALEXin 2023-0 Yes [id number] 500mg Take 1 [facility] (KEFLEX) 1-27 capsule by ity o f 500 mg 00:00: mouth 4 [place] capsule 00 (four) Medical times Branch daily. cephALEXin 2023-0 Yes [id number] 500mg Take 1 [facility] (KEFLEX) 1-27 capsule by ity o f 500 mg 00:00: mouth 4 [place] capsule 00 (four) Medical times Branch daily. cephALEXin 2023-0 Yes [id number] 500mg Take 1 [facility] (KEFLEX) 1-27 capsule by ity o f 500 mg 00:00: mouth 4 [place] capsule 00 (four) Medical times Branch daily. cephALEXin 2023-0 2023- No [id number] 500mg Take 1 [facility] (KEFLEX) 1-27 07-12 capsule by ity of 500 mg 00:00: 00:00 mouth 4 [place] capsule 00 :00 (four) Medical times Branch daily. cephALEXin 2023-0 2023- No [id number] 500mg Take 1 [facility] (KEFLEX) 1-27 07-12 capsule by ity of 500 mg 00:00: 00:00 mouth 4 [place] capsule 00 :00 (four) Medical times Branch daily. cephALEXin 2023-0 2023- No [id number] 500mg Take 1 [facility] (KEFLEX) 1-27 07-12 capsule by ity of 500 mg 00:00: 00:00 mouth 4 [place] capsule 00 :00 (four) Medical times Branch daily. cephALEXin 2023-0 2023- No [id number] 500mg Take 1 [facility] (KEFLEX) 1 07-12 capsule by ity of 500 mg 00:00: 00:00 mouth 4 [place] capsule 00 :00 (four) Medical times Branch daily. AIMOVIG 0 Yes [facility] AUTOINJECTO 1-26 ity of R 70 mg/mL 00:00: [place] [facility] AIMOVIG 2022-0 Yes [facility] AUTOINJECTO 1-26 ity of R 70 mg/mL 00:00: [place] [facility] AIMOVIG 2022-0 Yes [facility] AUTOINJECTO 1-26 ity of R 70 mg/mL 00:00: [place] [facility] AIMOVIG 2022-0 Yes [facility] AUTOINJECTO 1-26 ity of R 70 mg/mL 00:00: [place] [facility] AIMOVIG 2022-0 Yes [facility] AUTOINJECTO 1-26 ity of R 70 mg/mL 00:00: [facility] AIMOVIG 2022-0 Yes [facility] AUTOINJECTO 1-26 ity of R 70 mg/mL 00:00: [place] [facility] AIMOVIG 2022-0 Yes [facility] AUTOINJECTO 1-26 ity of R 70 mg/mL 00:00: [place] [facility] 00 Medical Branch AIMOVIG 2022-0 Yes [facility] AUTOINJECTO 1-26 ity of R 70 mg/mL 00:00: [place] [facility] 00 Medical Branch AIMOVIG 2022-0 Yes [facility] AUTOINJECTO 1-26 ity of R 70 mg/mL 00:00: [place] [facility] 00 Medical Branch AIMOVIG 2022-0 Yes [facility] AUTOINJECTO 1-26 ity of R 70 mg/mL 00:00: [place] [facility] 00 Medical Branch AIMOVIG 2022-0 Yes [facility] AUTOINJECTO 1-26 ity of R 70 mg/mL 00:00: [place] [facility] 00 Medical Branch AIMOVIG 2022-0 Yes [facility] AUTOINJECTO 1-26 ity of R 70 mg/mL 00:00: [place] [facility] 00 Medical Branch AIMOVIG 2022-0 Yes [facility] AUTOINJECTO 1-26 ity of R 70 mg/mL 00:00: [place] [facility] 00 Medical Branch AIMOVIG 2022-0 Yes [facility] AUTOINJECTO 1-26 ity of R 70 mg/mL 00:00: [place] [facility] AIMOVIG 2023-0 Yes [facility] AUTOINJECTO 1-26 ity of R 70 mg/mL 00:00: [place] [facility] 00 Medical Branch AIMOVIG 2022-0 Yes [facility] AUTOINJECTO 1-26 ity of R 70 mg/mL 00:00: [place] [facility] AIMOVIG 2022-0 Yes [facility] AUTOINJECTO 1-26 ity of R 70 mg/mL 00:00: [place] [facility] AIMOVIG 2022-0 Yes [facility] AUTOINJECTO 1-26 ity of R 70 mg/mL 00:00: [place] [facility] AIMOVIG 2022-0 Yes [facility] AUTOINJECTO 1-26 ity of R 70 mg/mL 00:00: [place] [facility] 00 Medical Branch AIMOVIG 2022-0 Yes [facility] AUTOINJECTO 1-26 ity of R 70 mg/mL 00:00: [place] [facility] AIMOVIG 2022-0 Yes [facility] AUTOINJECTO 1-26 ity of R 70 mg/mL 00:00: [facility] AIMOVIG 2022-0 Yes [facility] AUTOINJECTO 1-26 ity of R 70 mg/mL 00:00: [place] [facility] AIMOVIG 2022-0 Yes [facility] AUTOINJECTO 1-26 ity of R 70 mg/mL 00:00: [place] [facility] AIMOVIG 2022-0 Yes [facility] AUTOINJECTO 1-26 ity of R 70 mg/mL 00:00: [place] [facility] 00 Medical Branch AIMOVIG 2022-0 Yes [facility] AUTOINJECTO 1-26 ity of R 70 mg/mL 00:00: [place] [facility] AIMOVIG 2022-0 Yes [facility] AUTOINJECTO 1-26 ity of R 70 mg/mL 00:00: [place] [facility] 00 Medical Branch AIMOVIG 2022-0 Yes [facility] AUTOINJECTO 1-26 ity of R 70 mg/mL 00:00: [place] [facility] 00 Medical Branch AIMOVIG 2022-0 Yes [facility] AUTOINJECTO 1-26 ity of R 70 mg/mL 00:00: [place] [facility] 00 Medical Branch AIMOVIG 2022-0 Yes [facility] AUTOINJECTO 1-26 ity of R 70 mg/mL 00:00: [place] [facility] AIMOVIG 2022-0 Yes [facility] AUTOINJECTO 1-26 ity of R 70 mg/mL 00:00: [place] [facility] 00 Medical Branch AIMOVIG 2022-0 Yes [facility] AUTOINJECTO 1-26 ity of R 70 mg/mL 00:00: [place] [facility] AIMOVIG 2022-0 Yes [facility] AUTOINJECTO 1-26 ity of R 70 mg/mL 00:00: [place] [facility] AIMOVIG 2022-0 Yes [facility] AUTOINJECTO 1-26 ity of R 70 mg/mL 00:00: [facility] AIMOVIG 2022-0 Yes [facility] AUTOINJECTO 1-26 ity of R 70 mg/mL 00:00: [facility] 00 Medical Branch AIMOVIG 2022-0 Yes [facility] AUTOINJECTO 1-26 ity of R 70 mg/mL 00:00: [facility] AIMOVIG 2022-0 Yes [facility] AUTOINJECTO 1-26 ity of R 70 mg/mL 00:00: [facility] AIMOVIG 2022-0 Yes [facility] AUTOINJECTO 1-26 ity of R 70 mg/mL 00:00: [facility] AIMOVIG 2022-0 Yes [facility] AUTOINJECTO 1-26 ity of R 70 mg/mL 00:00: [facility] 00 Medical Branch AIMOVIG 2022-0 Yes [facility] AUTOINJECTO 1-26 ity of R 70 mg/mL 00:00: [facility] AIMOVIG 2022-0 Yes [facility] AUTOINJECTO 1-26 ity of R 70 mg/mL 00:00: [facility] 00 Medical Branch AIMOVIG 3-0 Yes [facility] AUTOINJECTO 1-26 ity of R 70 mg/mL 00:00: [facility] AIMOVIG 2022-0 Yes [facility] AUTOINJECTO 1-26 ity of R 70 mg/mL 00:00: [facility] 00 Medical Branch AIMOVIG 2022-0 Yes [facility] AUTOINJECTO 1-26 ity of R 70 mg/mL 00:00: [facility] 00 Medical Branch AIMOVIG 2022-0 Yes [facility] AUTOINJECTO 1-26 ity of R 70 mg/mL 00:00: [facility] 00 Medical Branch AIMOVIG 2022-0 Yes [facility] AUTOINJECTO 1-26 ity of R 70 mg/mL 00:00: [place] [facility] 00 [facility] Branch AIMOVIG 3-0 Yes [facility] AUTOINJECTO 1-26 ity of R 70 mg/mL 00:00: [place] [facility] AIMOVIG 2022-0 Yes [facility] AUTOINJECTO 1-26 ity of R 70 mg/mL 00:00: [place] [facility] AIMOVIG 2022-0 Yes [facility] AUTOINJECTO 1-26 ity of R 70 mg/mL 00:00: [facility] AIMOVIG 2022-0 Yes [facility] AUTOINJECTO 1-26 ity of R 70 mg/mL 00:00: [place] [facility] 00 Medical Branch AIMOVIG 2022-0 Yes [facility] AUTOINJECTO 1-26 ity of R 70 mg/mL 00:00: [facility] 00 Medical Branch AIMOVIG 2022-0 Yes [facility] AUTOINJECTO 1-26 ity of R 70 mg/mL 00:00: [facility] 00 Medical Branch AIMOVIG 2022-0 Yes [facility] AUTOINJECTO 1-26 ity of R 70 mg/mL 00:00: [place] [facility] AIMOVIG 2022-0 Yes [facility] AUTOINJECTO 1-26 ity of R 70 mg/mL 00:00: [place] [facility] 00 Medical Branch AIMOVIG 2022-0 Yes [facility] AUTOINJECTO 1-26 ity of R 70 mg/mL 00:00: [place] [facility] 00 [facility] Branch AIMOVIG 2022-0 Yes [facility] AUTOINJECTO 1-26 ity of R 70 mg/mL 00:00: [place] [facility] 00 [facility] Branch AIMOVIG 2022-0 Yes [facility] AUTOINJECTO 1-26 ity of R 70 mg/mL 00:00: [place] [facility] 00 Medical Branch AIMOVIG 2022-0 Yes [facility] AUTOINJECTO 1-26 ity of R 70 mg/mL 00:00: [place] [facility] 00 Medical Branch AIMOVIG 2022-0 Yes [facility] AUTOINJECTO 1-26 ity of R 70 mg/mL 00:00: [place] [facility] 00 Medical Branch AIMOVIG 2022-0 Yes [facility] AUTOINJECTO 1-26 ity of R 70 mg/mL 00:00: [place] [facility] 00 [facility] Branch AIMOVIG 2022-0 Yes [facility] AUTOINJECTO 1-26 ity of R 70 mg/mL 00:00: [place] [facility] AIMOVIG 2022-0 Yes [facility] AUTOINJECTO 1-26 ity of R 70 mg/mL 00:00: [place] [facility] AIMOVIG 2022-0 Yes [facility] AUTOINJECTO 1-26 ity of R 70 mg/mL 00:00: [place] [facility] AIMOVIG 2022-0 Yes [facility] AUTOINJECTO 1-26 ity of R 70 mg/mL 00:00: [place] [facility] AIMOVIG 2022-0 Yes [facility] AUTOINJECTO 1-26 ity of R 70 mg/mL 00:00: [place] [facility] AIMOVIG 2022-0 Yes [facility] AUTOINJECTO 1-26 ity of R 70 mg/mL 00:00: [facility] AIMOVIG 2022-0 Yes [facility] AUTOINJECTO 1-26 ity of R 70 mg/mL 00:00: [place] [facility] AIMOVIG 2022-0 Yes [facility] AUTOINJECTO 1-26 ity of R 70 mg/mL 00:00: [place] [facility] AIMOVIG 2022-0 Yes [facility] AUTOINJECTO 1-26 ity of R 70 mg/mL 00:00: [place] [facility] 00 Medical Branch AIMOVIG 2022-0 Yes [facility] AUTOINJECTO 1-26 ity of R 70 mg/mL 00:00: [place] [facility] AIMOVIG 2022-0 Yes [facility] AUTOINJECTO 1-26 ity of R 70 mg/mL 00:00: [place] [facility] 00 [facility] Branch AIMOVIG 2022-0 Yes [facility] AUTOINJECTO 1-26 ity of R 70 mg/mL 00:00: [place] [facility] AIMOVIG 2022-0 Yes [facility] AUTOINJECTO 1-26 ity of R 70 mg/mL 00:00: [place] [facility] 00 Medical Branch AIMOVIG 2022-0 Yes [facility] AUTOINJECTO 1-26 ity of R 70 mg/mL 00:00: [place] [facility] 00 Medical Branch AIMOVIG 2022-0 Yes [facility] AUTOINJECTO 1-26 ity of R 70 mg/mL 00:00: [place] [facility] 00 Medical Branch AIMOVIG 2022-0 Yes [facility] AUTOINJECTO 1-26 ity of R 70 mg/mL 00:00: [place] [facility] AIMOVIG 3-0 Yes [facility] AUTOINJECTO 1-26 ity of R 70 mg/mL 00:00: [place] [facility] 00 [facility] Branch AIMOVIG 3-0 Yes [facility] AUTOINJECTO 1-26 ity of R 70 mg/mL 00:00: [place] [facility] 00 [facility] Branch AIMOVIG 2022-0 Yes [facility] AUTOINJECTO 1-26 ity of R 70 mg/mL 00:00: [place] [facility] 00 [facility] Branch AIMOVIG 2022-0 Yes [facility] AUTOINJECTO 1-26 ity of R 70 mg/mL 00:00: [place] [facility] 00 [facility] Branch AIMOVIG 2022-0 Yes [facility] AUTOINJECTO 1-26 ity of R 70 mg/mL 00:00: [place] [facility] 00 [facility] Branch AIMOVIG 2022-0 Yes [facility] AUTOINJECTO 1-26 ity of R 70 mg/mL 00:00: [place] [facility] 00 [facility] Branch AIMOVIG 2022-0 Yes [facility] AUTOINJECTO 1-26 ity of R 70 mg/mL 00:00: [place] [facility] AIMOVIG 2022-0 Yes [facility] AUTOINJECTO 1-26 ity of R 70 mg/mL 00:00: [place] [facility] 00 [facility] Branch blood sugar 2022-0 Yes Use 1 to [...] STRIPS) test blood Branch strip sugar cyclobenzap 2022-0 3- No 10mg Take 10 mg [facility] rine 10 mg 1-17 -17 by mouth 3 it y of tablet 15:25: 00:00 (three) [place] 35 :00 times Medical daily. Branch CYCLOBENZAP 2022-0 Yes [id number] TAKE 1 [facility] RINE 5 mg 1-17 TABLET BY ity o f tablet 00:00: MOUTH [place] 00 TWICE Medical DAILY Branch CYCLOBENZAP 2023-0 Yes [id number] TAKE 1 [facility] RINE 5 mg 1-17 TABLET BY ity o f tablet 00:00: [facility] 00 TWICE Medical DAILY Branch CYCLOBENZAP 2023-0 Yes [id number] TAKE 1 [facility] RINE 5 mg 1-17 TABLET BY ity o f tablet 00:00: [facility] 00 TWICE Medical DAILY Branch CYCLOBENZAP 2023-0 Yes [id number] TAKE 1 [facility] RINE 5 mg 1-17 TABLET BY ity o f tablet 00:00: [facility] 00 TWICE Medical DAILY Branch CYCLOBENZAP 2023-0 Yes [id number] TAKE 1 [facility] RINE 5 mg 1-17 TABLET BY ity o f tablet 00:00: [facility] 00 TWICE Medical DAILY Branch CYCLOBENZAP 2023-0 Yes [id number] TAKE 1 [facility] RINE 5 mg 1-17 TABLET BY ity o f tablet 00:00: [facility] 00 TWICE Medical DAILY Branch CYCLOBENZAP 2023-0 Yes [id number] TAKE 1 [facility] RINE 5 mg 1-17 TABLET BY ity o f tablet 00:00: [facility] 00 TWICE Medical DAILY Branch CYCLOBENZAP 2023-0 Yes [id number] TAKE 1 [facility] RINE 5 mg 1-17 TABLET BY ity o f tablet 00:00: [facility] 00 TWICE Medical DAILY Branch CYCLOBENZAP 2023-0 Yes [id number] TAKE 1 [facility] RINE 5 mg 1-17 TABLET BY ity o f tablet 00:00: [facility] 00 TWICE Medical DAILY Branch CYCLOBENZAP 2023-0 Yes [id number] TAKE 1 [facility] RINE 5 mg 1-17 TABLET BY ity o f tablet 00:00: [facility] 00 TWICE Medical DAILY Branch CYCLOBENZAP 2023-0 Yes [id number] TAKE 1 [facility] RINE 5 mg 1-17 TABLET BY ity o f tablet 00:00: [facility] 00 TWICE Medical DAILY Branch CYCLOBENZAP 2023-0 Yes [id number] TAKE 1 [facility] RINE 5 mg 1-17 TABLET BY ity o f tablet 00:00: [facility] 00 TWICE Medical DAILY Branch CYCLOBENZAP 2023-0 Yes [id number] TAKE 1 [facility] RINE 5 mg 1-17 TABLET BY ity o f tablet 00:00: [facility] 00 TWICE Medical DAILY Branch CYCLOBENZAP 2023-0 Yes [id number] TAKE 1 [facility] RINE 5 mg 1-17 TABLET BY ity o f tablet 00:00: [facility] 00 TWICE Medical DAILY Branch CYCLOBENZAP 2022-0 Yes [id number] TAKE 1 [facility] RINE 5 mg 1-17 TABLET BY ity o f tablet 00:00: MOUTH [place] TWICE Medical DAILY Branch CYCLOBENZAP 2022-0 Yes [id number] TAKE 1 [facility] RINE 5 mg 1-17 TABLET BY ity o f tablet 00:00: MOUTH [place] TWICE Medical DAILY Branch CYCLOBENZAP 2022-0 Yes [id number] TAKE 1 [facility] RINE 5 mg 1-17 TABLET BY ity o f tablet 00:00: MOUTH [place] TWICE Medical DAILY Branch CYCLOBENZAP 2022-0 3- No [id number] TAKE 1 [facility] RINE 5 mg 1-17 02-20 TABLET BY ity of tablet 00:00: 00:00 MOUTH [place] 00 :00 TWICE Medical DAILY Branch LOVASTATIN 2021-06 Yes [id number] TAKE 1 U nivers 40 mg 2-22 TABLET BY ity of tablet 00:00: MOUTH WITH [place] EVENING Medical MEAL Branch LOVASTATIN 2021-06 Yes [id number] TAKE 1 U nivers 40 mg 2-22 TABLET BY ity of tablet 00:00: MOUTH WITH [place] EVENING Medical MEAL Branch LOVASTATIN 2021-06 Yes [id number] TAKE 1 U nivers 40 mg 2-22 TABLET BY ity of tablet 00:00: MOUTH WITH [place] EVENING Medical MEAL Branch LOVASTATIN 2021-06 Yes [id number] TAKE 1 U nivers 40 mg 2-22 TABLET BY ity of tablet 00:00: MOUTH WITH [place] EVENING Medical MEAL Branch LOVASTATIN 2021-06 Yes [id number] TAKE 1 U nivers 40 mg 2-22 TABLET BY ity of tablet 00:00: MOUTH WITH [place] EVENING Medical MEAL Branch LOVASTATIN 2021-06 Yes [id number] TAKE 1 U nivers 40 mg 2-22 TABLET BY ity of tablet 00:00: MOUTH WITH [place] EVENING Medical MEAL Branch LOVASTATIN 2021-06 Yes [id number] TAKE 1 U nivers 40 mg 2-22 TABLET BY ity of tablet 00:00: MOUTH WITH [place] EVENING Medical MEAL Branch LOVASTATIN 2021-06 Yes [id number] TAKE 1 U nivers 40 mg 2-22 TABLET BY ity of tablet 00:00: MOUTH WITH [place] EVENING Medical MEAL Branch LOVASTATIN 2021-06 Yes [id number] TAKE 1 U nivers 40 mg 2-22 TABLET BY ity of tablet 00:00: MOUTH WITH EVENING Medical MEAL Branch LOVASTATIN 2021-06 Yes [id number] TAKE 1 U nivers 40 mg 2-22 TABLET BY ity of tablet 00:00: MOUTH WITH EVENING Medical MEAL Branch LOVASTATIN 2021-06 Yes [id number] TAKE 1 U nivers 40 mg 2-22 TABLET BY ity of tablet 00:00: MOUTH WITH EVENING Medical MEAL Branch LOVASTATIN 2021-06 Yes [id number] TAKE 1 U nivers 40 mg 2-22 TABLET BY ity of tablet 00:00: MOUTH WITH EVENING Medical MEAL Branch LOVASTATIN 2021-06 Yes [id number] TAKE 1 U nivers 40 mg 2-22 TABLET BY ity of tablet 00:00: MOUTH WITH [facility] Medical MEAL Branch LOVASTATIN 2021-06 Yes [id number] TAKE 1 U nivers 40 mg 2-22 TABLET BY ity of tablet 00:00: MOUTH WITH EVENING Medical MEAL Branch LOVASTATIN 2021-06 Yes [id number] TAKE 1 U nivers 40 mg 2-22 TABLET BY ity of tablet 00:00: MOUTH WITH EVENING Medical MEAL Branch LOVASTATIN 2021-06 Yes [id number] TAKE 1 U nivers 40 mg 2-22 TABLET BY ity of tablet 00:00: MOUTH WITH EVENING Medical MEAL Branch LOVASTATIN 2021-06 Yes [id number] TAKE 1 U nivers 40 mg 2-22 TABLET BY ity of tablet 00:00: MOUTH WITH EVENING Medical MEAL Branch LOVASTATIN 2021-06 Yes [id number] TAKE 1 U nivers 40 mg 2-22 TABLET BY ity of tablet 00:00: MOUTH WITH EVENING Medical MEAL Branch LOVASTATIN 2021-06 Yes [id number] TAKE 1 U nivers 40 mg 2-22 TABLET BY ity of tablet 00:00: MOUTH WITH EVENING Medical MEAL Branch LOVASTATIN 2021-06 Yes [id number] TAKE 1 U nivers 40 mg 2-22 TABLET BY ity of tablet 00:00: MOUTH WITH EVENING Medical MEAL Branch LOVASTATIN 2021-06 Yes [id number] TAKE 1 U nivers 40 mg 2-22 TABLET BY ity of tablet 00:00: MOUTH WITH EVENING Medical MEAL Branch LOVASTATIN 2021-06 Yes [id number] TAKE 1 U nivers 40 mg 2-22 TABLET BY ity of tablet 00:00: MOUTH WITH EVENING Medical MEAL Branch LOVASTATIN 2021-06 Yes [id number] TAKE 1 U nivers 40 mg 2-22 TABLET BY ity of tablet 00:00: MOUTH WITH EVENING Medical MEAL Branch LOVASTATIN 2021-06 Yes [id number] TAKE 1 U nivers 40 mg 2-22 TABLET BY ity of tablet 00:00: MOUTH WITH EVENING Medical MEAL Branch LOVASTATIN 2021-06 Yes [id number] TAKE 1 U nivers 40 mg 2-22 TABLET BY ity of tablet 00:00: MOUTH WITH EVENING Medical MEAL Branch LOVASTATIN 2021-06 Yes [id number] TAKE 1 U nivers 40 mg 2-22 TABLET BY ity of tablet 00:00: MOUTH WITH EVENING Medical MEAL Branch LOVASTATIN 2021-06 Yes [id number] TAKE 1 U nivers 40 mg 2-22 TABLET BY ity of tablet 00:00: MOUTH WITH EVENING Medical MEAL Branch LOVASTATIN 2021-06 Yes [id number] TAKE 1 U nivers 40 mg 2-22 TABLET BY ity of tablet 00:00: MOUTH WITH EVENING Medical MEAL Branch LOVASTATIN 2021-06 Yes [id number] TAKE 1 U nivers 40 mg 2-22 TABLET BY ity of tablet 00:00: MOUTH WITH EVENING Medical MEAL Branch LOVASTATIN 2021-06 Yes [id number] TAKE 1 U nivers 40 mg 2-22 TABLET BY ity of tablet 00:00: MOUTH WITH EVENING Medical MEAL Branch LOVASTATIN 2021-06 Yes [id number] TAKE 1 U nivers 40 mg 2-22 TABLET BY ity of tablet 00:00: MOUTH WITH EVENING Medical MEAL Branch LOVASTATIN 2021-06 Yes [id number] TAKE 1 U nivers 40 mg 2-22 TABLET BY ity of tablet 00:00: MOUTH WITH EVENING Medical MEAL Branch LOVASTATIN 2021-06- No [id number] TAKE 1 [facility] 40 mg 2-22 03-21 TABLET BY ity of tablet 00:00: 00:[place] 00 :[place] EVENING Medical MEAL Branch Insulin 2021-06- No 20U inject 20 Univ ers Glargine - 11-08 Units ity of (LANTUS 16:19: 00:00 [...] under the [place] [facility] 00 skin in [facility] the Branch INSULIN) morning. 100 unit/mL Decrease [...] the [place] [facility] 00 skin in Medical [facility] the Branch INSULIN) morning. 100 unit/mL Decrease [...] under the [place] [facility] 00 skin in [facility] the Branch INSULIN) morning. 100 unit/mL Decrease (3 mL) the long injection acting insulin to 20 units once daily to avoid any low BGs. If fasting BG drops < 90, he will continue decrease the insulin dose. Insulin 2021-06 Yes 20U inject 20 Unive rs Glargine 1-08 Units ity of (LANTUS 00:00: under the [place] [facility] 00 skin in [facility] the Branch INSULIN) morning. 100 unit/mL Decrease (3 mL) the long injection acting insulin to 20 units once daily to avoid any low BGs. If fasting BG drops < 90, he will continue decrease the insulin dose. Insulin 2021-06 Yes 20U inject 20 Unive rs Glargine 1-08 Units ity of (LANTUS 00:00: under the [place] [facility] 00 skin in [facility] the Branch INSULIN) morning. 100 unit/mL Decrease (3 mL) the long injection acting insulin to 20 units once daily to avoid any low BGs. If fasting BG drops < 90, he will continue decrease the insulin dose. Insulin 2021-06 Yes 20U inject 20 Unive rs Glargine 1-08 Units ity of (LANTUS 00:00: under the [place] [facility] 00 skin in [facility] the Branch INSULIN) morning. 100 unit/mL Decrease (3 mL) the long injection acting insulin to 20 units once daily to avoid any low BGs. If fasting BG drops < 90, he will continue decrease the insulin dose. Insulin 2021-06 Yes 20U inject 20 Unive rs Glargine 1-08 Units ity of (LANTUS 00:00: under the [place] [facility] 00 skin in [facility] the Branch INSULIN) morning. 100 unit/mL Decrease [...] under the [place] [facility] 00 skin in [facility] the Branch INSULIN) morning. 100 unit/mL Decrease (3 mL) the long injection acting insulin to 20 units once daily to avoid any low BGs. If fasting BG drops < 90, he will continue decrease the insulin dose. Insulin 2021-06 Yes 20U inject 20 Unive rs Glargine 1-08 Units ity of (LANTUS 00:00: under the [place] [facility] 00 skin in [facility] the Branch INSULIN) morning. 100 unit/mL Decrease (3 mL) the long injection acting insulin to 20 units once daily to avoid any low BGs. If fasting BG drops < 90, he will continue decrease the insulin dose. Insulin 2021-06- No 20U inject 20 Univ ers Glargine 1-08 07-06 Units ity of (LANTUS 00:00: 00:00 under the [facility] SOLOSTAR 00 :00 skin in [facility] [facility] the [place] INSULIN) morning. 100 unit/mL Decrease (3 mL) the long injection acting insulin to 20 units once daily to avoid any low BGs. If fasting BG drops < 90, he will continue decrease the insulin dose. fenofibrate 2021-06 Yes [id number] 54mg Take 1 [facility] 54 mg 0-19 tablet by ity of tablet 00:00: mouth in [place] the Medical morning. [place] fenofibrate 2021-06 Yes [id number] 54mg Take 1 [facility] 54 mg 0-19 tablet by ity of tablet 00:00: mouth in [place] [address] the Medical morning. [place] fenofibrate 2021-06 Yes [id number] 54mg Take 1 [facility] 54 mg 0-19 tablet by ity of tablet 00:00: mouth in [place] the Medical morning. Branch fenofibrate 2021-06 Yes [id number] 54mg Take 1 [facility] 54 mg 0-19 tablet by ity of tablet 00:00: mouth in [place] [address] the Medical morning. [place] fenofibrate 2021-06 Yes [id number] 54mg Take 1 [facility] 54 mg 0-19 tablet by ity of tablet 00:00: mouth in [place] 00 the Medical morning. Branch fenofibrate 2021-06 Yes [id number] 54mg Take 1 [facility] 54 mg 0-19 tablet by ity of tablet 00:00: mouth in [place] the Medical morning. Branch fenofibrate 2021-06 Yes [id number] 54mg Take 1 [facility] 54 mg 0-19 tablet by ity of tablet 00:00: mouth in [place] the Medical morning. Branch fenofibrate 2021-06 Yes [id number] 54mg Take 1 [facility] 54 mg 0-19 tablet by ity of tablet 00:00: mouth in [place] the Medical morning. Branch fenofibrate 2021-06 Yes [id number] 54mg Take 1 [facility] 54 mg 0-19 tablet by ity of tablet 00:00: mouth in [place] the Medical morning. Branch fenofibrate 2021-06 Yes [id number] 54mg Take 1 [facility] 54 mg 0-19 tablet by ity of tablet 00:00: mouth in [place] the Medical morning. [facility] fenofibrate 2021-06 Yes [id number] 54mg Take 1 [facility] 54 mg 0-19 tablet by ity of tablet 00:00: mouth in [place] the Medical morning. [facility] fenofibrate 2021-06 Yes [id number] 54mg Take 1 [facility] 54 mg 0-19 tablet by ity of tablet 00:00: mouth in [place] the Medical morning. Branch fenofibrate 2021-06 Yes [id number] 54mg Take 1 [facility] 54 mg 0-19 tablet by ity of tablet 00:00: mouth in [place] the Medical morning. [facility] fenofibrate 2021-06 Yes [id number] 54mg Take 1 [facility] 54 mg 0-19 tablet by ity of tablet 00:00: mouth in [place] the Medical morning. [facility] fenofibrate 2021-06 Yes [id number] 54mg Take 1 [facility] 54 mg 0-19 tablet by ity of tablet 00:00: mouth in [place] 00 the Medical morning. [facility] fenofibrate 2021- Yes [id number] 54mg Take 1 [facility] 54 mg 0-19 tablet by [facility] of tablet 00:00: mouth in [place] 00 the Medical morning. [facility] fenofibrate 2021- Yes [id number] 54mg Take 1 [facility] 54 mg 0-19 tablet by ity of tablet 00:00: mouth in [place] 00 the Medical morning. Branch fenofibrate 2021-06 Yes [id number] 54mg Take 1 [facility] 54 mg 0-19 tablet by ity of tablet 00:00: mouth in [place] the Medical morning. Branch fenofibrate 2021-06 Yes [id number] 54mg Take 1 [facility] 54 mg 0-19 tablet by ity of tablet 00:00: mouth in [place] the Medical morning. Branch fenofibrate 2021-06 Yes [id number] 54mg Take 1 [facility] 54 mg 0-19 tablet by ity of tablet 00:00: mouth in [place] the Medical morning. Branch fenofibrate 2021-06 Yes [id number] 54mg Take 1 [facility] 54 mg 0-19 tablet by ity of tablet 00:00: mouth in [place] the Medical morning. Branch fenofibrate 2021-06 Yes [id number] 54mg Take 1 [facility] 54 mg 0-19 tablet by ity of tablet 00:00: mouth in [place] the Medical morning. [facility] fenofibrate 2021-06 Yes [id number] 54mg Take 1 [facility] 54 mg 0-19 tablet by ity of tablet 00:00: mouth in [place] the Medical morning. Branch fenofibrate 2021-06 Yes [id number] 54mg Take 1 [facility] 54 mg 0-19 tablet by ity of tablet 00:00: mouth in [place] the Medical morning. Branch fenofibrate 2021-06 Yes [id number] 54mg Take 1 [facility] 54 mg 0-19 tablet by ity of tablet 00:00: mouth in [place] the Medical morning. Branch fenofibrate 2021-06 Yes [id number] 54mg Take 1 [facility] 54 mg 0-19 tablet by ity of tablet 00:00: mouth in [place] the Medical morning. Branch fenofibrate 2021-06 Yes [id number] 54mg Take 1 [facility] 54 mg 0-19 tablet by ity of tablet 00:00: mouth in [place] the Medical morning. Branch fenofibrate 2021-06 Yes [id number] 54mg Take 1 [facility] 54 mg 0-19 tablet by ity of tablet 00:00: mouth in [place] 00 the Medical morning. Branch fenofibrate 2021-06 Yes [id number] 54mg Take 1 [facility] 54 mg 0-19 tablet by ity of tablet 00:00: mouth in [place] 00 the Medical morning. Branch fenofibrate 2021-06 Yes [id number] 54mg Take 1 [facility] 54 mg 0-19 tablet by ity of tablet 00:00: mouth in [place] 00 the Medical morning. Branch fenofibrate 2021-06 Yes [id number] 54mg Take 1 [facility] 54 mg 0-19 tablet by ity of tablet 00:00: mouth in [place] 00 the Medical morning. Branch fenofibrate 2021-06 Yes [id number] 54mg Take 1 [facility] 54 mg 0-19 tablet by ity of tablet 00:00: mouth in [place] 00 the Medical morning. Branch fenofibrate 2021-06 Yes [id number] 54mg Take 1 [facility] 54 mg 0-19 tablet by ity of tablet 00:00: mouth in [place] 00 the Medical morning. Branch fenofibrate 2021-06 Yes [id number] 54mg Take 1 [facility] 54 mg 0-19 tablet by ity of tablet 00:00: mouth in [place] 00 the Medical morning. Branch fenofibrate 2021-06 Yes [id number] 54mg Take 1 [facility] 54 mg 0-19 tablet by it[facility] of tablet 00:00: mouth in [place] 00 the Medical morning. Branch fenofibrate 2021-06 Yes [id number] 54mg Take 1 [facility] 54 mg 0-19 tablet by ity of tablet 00:00: mouth in [place] 00 the Medical morning. Branch fenofibrate 2021-06 Yes [id number] 54mg Take 1 [facility] 54 mg 0-19 tablet by ity of tablet 00:00: mouth in [place] 00 the Medical morning. Branch fenofibrate 2021-06 Yes [id number] 54mg Take 1 [facility] 54 mg 0-19 tablet by ity of tablet 00:00: mouth in [place] 00 the Medical morning. Branch fenofibrate 2021-06 Yes [id number] 54mg Take 1 [facility] 54 mg 0-19 tablet by ity of tablet 00:00: mouth in [place] 00 the Medical morning. Branch fenofibrate 2021-06 Yes [id number] 54mg Take 1 [facility] 54 mg 0-19 tablet by ity of tablet 00:00: mouth in [place] 00 the Medical morning. Branch fenofibrate 2021-06 Yes [id number] 54mg Take 1 [facility] 54 mg 0-19 tablet by ity of tablet 00:00: mouth in [place] 00 the Medical morning. Branch fenofibrate 2021-06 Yes [id number] 54mg Take 1 [facility] 54 mg 0-19 tablet by ity of tablet 00:00: mouth in [place] 00 the Medical morning. Branch fenofibrate 2021-06 Yes [id number] 54mg Take 1 [facility] 54 mg 0-19 tablet by ity of tablet 00:00: mouth in [place] the Medical morning. Branch fenofibrate 2021-06 Yes [id number] 54mg Take 1 [facility] 54 mg 0-19 tablet by ity of tablet 00:00: mouth in [place] the Medical morning. Branch fenofibrate 2021-06 Yes [id number] 54mg Take 1 [facility] 54 mg 0-19 tablet by ity of tablet 00:00: mouth in [place] the Medical morning. Branch fenofibrate 2021-06 Yes [id number] 54mg Take 1 [facility] 54 mg 0-19 tablet by ity of tablet 00:00: mouth in [place] the Medical morning. Branch fenofibrate 2021-06 Yes [id number] 54mg Take 1 [facility] 54 mg 0-19 tablet by ity of tablet 00:00: mouth in [place] the Medical morning. Branch fenofibrate 2021-06 Yes [id number] 54mg Take 1 [facility] 54 mg 0-19 tablet by ity of tablet 00:00: mouth in [place] the Medical morning. Branch fenofibrate 2021-06 Yes [id number] 54mg Take 1 [facility] 54 mg 0-19 tablet by ity of tablet 00:00: mouth in [place] the Medical morning. Branch fenofibrate 2021-06 Yes [id number] 54mg Take 1 [facility] 54 mg 0-19 tablet by ity of tablet 00:00: mouth in [place] the Medical morning. Branch fenofibrate 2021-06 Yes [id number] 54mg Take 1 [facility] 54 mg 0-19 tablet by ity of tablet 00:00: mouth in [place] the Medical morning. Branch fenofibrate 2021-06 Yes [id number] 54mg Take 1 [facility] 54 mg 0-19 tablet by ity of tablet 00:00: mouth in [place] 00 the Medical morning. Branch fenofibrate 2021-06 Yes [id number] 54mg Take 1 [facility] 54 mg 0-19 tablet by ity of tablet 00:00: mouth in [place] 00 the Medical morning. Branch fenofibrate 2021-06 Yes [id number] 54mg Take 1 [facility] 54 mg 0-19 tablet by ity of tablet 00:00: mouth in [place] 00 the Medical morning. [place] fenofibrate 2021-06 Yes [id number] 54mg Take 1 [facility] 54 mg 0-19 tablet by ity of tablet 00:00: mouth in [place] 00 the Medical morning. [place] fenofibrate 2021-06- No [id number] 54mg Take 1 [facility] 54 mg 0-19 04-26 tablet by ity of tablet 00:00: 00:00 mouth in [place] 00 :00 the Medical morning. [place] Proscar 5 Proscar 5 2021-06- No 1{table QD Proscar 5 MG MG 0-12 -07 t} MG 00:00: 00:00 00 :00 Proscar [...] 00:00: 00:00 00 :00 glipiZIDE 2021-06 Yes [id number] 10mg Take 1 [facility] XL 10 mg 24 0-10 tablet by ity of hr tablet 00:00: mouth 00 daily with Medical breakfast. [place] glipiZIDE 2021-06 Yes [id number] 10mg Take 1 [facility] [place] XL 10 mg 24 0-10 tablet by ity of hr tablet 00:00: mouth [place] 00 daily with Medical breakfast. Branch glipiZIDE 2021-06 Yes [id number] 10mg Take 1 [facility] [place] XL 10 mg 24 0-10 tablet by ity of hr tablet 00:00: mouth [place] 00 daily with Medical breakfast. Branch glipiZIDE 2021-06 Yes [id number] 10mg Take 1 [facility] [place] XL 10 mg 24 0-10 tablet by ity of hr tablet 00:00: mouth 00 daily with Medical breakfast. [place] glipiZIDE 2021-06 Yes [id number] 10mg Take 1 [facility] [place] XL 10 mg 24 0-10 tablet by ity of hr tablet 00:00: mouth [place] 00 daily with Medical breakfast. Branch glipiZIDE 2021-06 Yes [id number] 10mg Take 1 [facility] [place] XL 10 mg 24 0-10 tablet by ity of hr tablet 00:00: mouth [place] 00 daily with Medical breakfast. Branch glipiZIDE 2021-06 Yes [id number] 10mg Take 1 [facility] [place] XL 10 mg 24 0-10 tablet by ity of hr tablet 00:00: mouth [place] 00 daily with Medical breakfast. Branch glipiZIDE 2021-06 Yes [id number] 10mg Take 1 [facility] [place] XL 10 mg 24 0-10 tablet by ity of hr tablet 00:00: mouth [place] 00 daily with Medical breakfast. Branch glipiZIDE 2021-06 Yes [id number] 10mg Take 1 [facility] [place] XL 10 mg 24 0-10 tablet by ity of hr tablet 00:00: mouth [place] 00 daily with Medical breakfast. [place] glipiZIDE 2021-06 Yes [id number] 10mg Take 1 [facility] [place] XL 10 mg 24 0-10 tablet by ity of hr tablet 00:00: mouth [place] 00 daily with Medical breakfast. [place] glipiZIDE 2021-06 Yes [id number] 10mg Take 1 [facility] [place] XL 10 mg 24 0-10 tablet by ity of hr tablet 00:00: mouth [place] 00 daily with Medical breakfast. Branch glipiZIDE 2021-06 Yes [id number] 10mg Take 1 [facility] [place] XL 10 mg 24 0-10 tablet by ity of hr tablet 00:00: mouth [place] 00 daily with Medical breakfast. Branch glipiZIDE 2021-06 Yes [id number] 10mg Take 1 [facility] [place] XL 10 mg 24 0-10 tablet by ity of hr tablet 00:00: mouth [place] 00 daily with Medical breakfast. Branch glipiZIDE 2021-06 Yes [id number] 10mg Take 1 [facility] [place] XL 10 mg 24 0-10 tablet by ity of hr tablet 00:00: mouth [place] 00 daily with Medical breakfast. Branch glipiZIDE 2021-06 Yes [id number] 10mg Take 1 [facility] [place] XL 10 mg 24 0-10 tablet by ity of hr tablet 00:00: mouth [place] 00 daily with Medical breakfast. Branch glipiZIDE 2021-06 Yes [id number] 10mg Take 1 [facility] [place] XL 10 mg 24 0-10 tablet by ity of hr tablet 00:00: mouth [place] 00 daily with Medical breakfast. [place] glipiZIDE 2021-06 Yes [id number] 10mg Take 1 [facility] [place] XL 10 mg 24 0-10 tablet by ity of hr tablet 00:00: mouth [place] 00 daily with Medical breakfast. Branch glipiZIDE 2021-06 Yes [id number] 10mg Take 1 [facility] [place] XL 10 mg 24 0-10 tablet by ity of hr tablet 00:00: mouth [place] 00 daily with Medical breakfast. Branch glipiZIDE 2021-06 Yes [id number] 10mg Take 1 [facility] [place] XL 10 mg 24 0-10 tablet by ity of hr tablet 00:00: mouth [place] 00 daily with Medical breakfast. Branch glipiZIDE 2021-06 Yes [id number] 10mg Take 1 [facility] [place] XL 10 mg 24 0-10 tablet by ity of hr tablet 00:00: mouth [place] 00 daily with Medical breakfast. [place] glipiZIDE 2021-06 Yes [id number] 10mg Take 1 [facility] [place] XL 10 mg 24 0-10 tablet by ity of hr tablet 00:00: mouth [place] 00 daily with Medical breakfast. [place] glipiZIDE 2021-06 Yes [id number] 10mg Take 1 [facility] [place] XL 10 mg 24 0-10 tablet by ity of hr tablet 00:00: mouth [place] 00 daily with Medical breakfast. [place] glipiZIDE 2021-06 Yes [id number] 10mg Take 1 [facility] [place] XL 10 mg 24 0-10 tablet by ity of hr tablet 00:00: mouth [place] 00 daily with Medical breakfast. [place] glipiZIDE 2021-06 Yes [id number] 10mg Take 1 [facility] [place] XL 10 mg 24 0-10 tablet by ity of hr tablet 00:00: mouth [place] 00 daily with Medical breakfast. [place] glipiZIDE 2021-06 Yes [id number] 10mg Take 1 [facility] [place] XL 10 mg 24 0-10 tablet by ity of hr tablet 00:00: mouth [place] 00 daily with Medical breakfast. [place] glipiZIDE 2021-06 Yes [id number] 10mg Take 1 [facility] [place] XL 10 mg 24 0-10 tablet by ity of hr tablet 00:00: mouth [place] 00 daily with Medical breakfast. [place] glipiZIDE 2021-06 Yes [id number] 10mg Take 1 [facility] [place] XL 10 mg 24 0-10 tablet by ity of hr tablet 00:00: mouth [place] 00 daily with Medical breakfast. Branch glipiZIDE 2021-06 Yes [id number] 10mg Take 1 [facility] [place] XL 10 mg 24 0-10 tablet by ity of hr tablet 00:00: mouth [place] 00 daily with Medical breakfast. Branch glipiZIDE 2021-06 Yes [id number] 10mg Take 1 [facility] [place] XL 10 mg 24 0-10 tablet by ity of hr tablet 00:00: mouth [place] 00 daily with Medical breakfast. Branch glipiZIDE 2021-06 Yes [id number] 10mg Take 1 [facility] [place] XL 10 mg 24 0-10 tablet by ity of hr tablet 00:00: mouth [place] 00 daily with Medical breakfast. Branch glipiZIDE 2021-06 Yes [id number] 10mg Take 1 [facility] [place] XL 10 mg 24 0-10 tablet by ity of hr tablet 00:00: mouth [place] 00 daily with Medical breakfast. [place] glipiZIDE 2021-06 Yes [id number] 10mg Take 1 [facility] [place] XL 10 mg 24 0-10 tablet by ity of hr tablet 00:00: mouth [place] 00 daily with Medical breakfast. [place] glipiZIDE 2021-06 Yes [id number] 10mg Take 1 [facility] [place] XL 10 mg 24 0-10 tablet by ity of hr tablet 00:00: mouth [place] 00 daily with Medical breakfast. [place] glipiZIDE 2021-06 Yes [id number] 10mg Take 1 [facility] [place] XL 10 mg 24 0-10 tablet by ity of hr tablet 00:00: mouth [place] 00 daily with Medical breakfast. [place] glipiZIDE 2021-06 Yes [id number] 10mg Take 1 [facility] [place] XL 10 mg 24 0-10 tablet by ity of hr tablet 00:00: mouth [place] 00 daily with Medical breakfast. Branch glipiZIDE 2021-06 Yes [id number] 10mg Take 1 [facility] [place] XL 10 mg 24 0-10 tablet by ity of hr tablet 00:00: mouth [place] 00 daily with Medical breakfast. Branch glipiZIDE 2021-06 Yes [id number] 10mg Take 1 [facility] [place] XL 10 mg 24 0-10 tablet by ity of hr tablet 00:00: mouth [place] 00 daily with Medical breakfast. [place] glipiZIDE 2021-06 Yes [id number] 10mg Take 1 [facility] [place] XL 10 mg 24 0-10 tablet by ity of hr tablet 00:00: mouth [place] 00 daily with Medical breakfast. Branch glipiZIDE 2021-06 Yes [id number] 10mg Take 1 [facility] [place] XL 10 mg 24 0-10 tablet by ity of hr tablet 00:00: mouth [place] 00 daily with Medical breakfast. [place] glipiZIDE 2021-06 Yes [id number] 10mg Take 1 [facility] [place] XL 10 mg 24 0-10 tablet by ity of hr tablet 00:00: mouth [place] 00 daily with Medical breakfast. [place] glipiZIDE 2021-06 Yes [id number] 10mg Take 1 [facility] [place] XL 10 mg 24 0-10 tablet by ity of hr tablet 00:00: mouth [place] 00 daily with Medical breakfast. [place] glipiZIDE 2021-06 Yes [id number] 10mg Take 1 [facility] [place] XL 10 mg 24 0-10 tablet by ity of hr tablet 00:00: mouth [place] 00 daily with Medical breakfast. [place] glipiZIDE 2021-06 Yes [id number] 10mg Take 1 [facility] XL 10 mg 24 0-10 tablet by ity of hr tablet 00:00: mouth [place] 00 daily with Medical breakfast. [place] glipiZIDE 2021-06 Yes [id number] 10mg Take 1 [facility] XL 10 mg 24 0-10 tablet by ity of hr tablet 00:00: mouth [place] 00 daily with Medical breakfast. [place] glipiZIDE 2021-06 Yes [id number] 10mg Take 1 [facility] [place] XL 10 mg 24 0-10 tablet by ity of hr tablet 00:00: mouth [place] 00 daily with Medical breakfast. [place] glipiZIDE 2021-06 Yes [id number] 10mg Take 1 [facility] [place] XL 10 mg 24 0-10 tablet by ity of hr tablet 00:00: mouth [place] 00 daily with Medical breakfast. [place] glipiZIDE 2021-06 Yes [id number] 10mg Take 1 [facility] XL 10 mg 24 0-10 tablet by ity of hr tablet 00:00: mouth [place] 00 daily with Medical breakfast. [place] glipiZIDE 2021-06 Yes [id number] 10mg Take 1 [facility] [place] XL 10 mg 24 0-10 tablet by ity of hr tablet 00:00: mouth [place] 00 daily with Medical breakfast. [place] glipiZIDE 2021-06 Yes [id number] 10mg Take 1 [facility] [place] XL 10 mg 24 0-10 tablet by ity of hr tablet 00:00: mouth [place] 00 daily with Medical breakfast. Branch glipiZIDE 2021-06 Yes [id number] 10mg Take 1 [facility] [place] XL 10 mg 24 0-10 tablet by ity of hr tablet 00:00: mouth [place] 00 daily with Medical breakfast. [place] glipiZIDE 2021-06 Yes [id number] 10mg Take 1 [facility] [place] XL 10 mg 24 0-10 tablet by ity of hr tablet 00:00: mouth [place] 00 daily with Medical breakfast. [place] glipiZIDE 2021-06 Yes [id number] 10mg Take 1 [facility] XL 10 mg 24 0-10 tablet by ity of hr tablet 00:00: mouth [place] 00 daily with Medical breakfast. [place] glipiZIDE 2021-06 Yes [id number] 10mg Take 1 [facility] [place] XL 10 mg 24 0-10 tablet by ity of hr tablet 00:00: mouth [place] 00 daily with Medical breakfast. [place] glipiZIDE 2021-06 Yes [id number] 10mg Take 1 [facility] XL 10 mg 24 0-10 tablet by ity of hr tablet 00:00: mouth [place] 00 daily with Medical breakfast. [place] glipiZIDE 2021-06 Yes [id number] 10mg Take 1 [facility] XL 10 mg 24 0-10 tablet by ity of hr tablet 00:00: mouth [place] 00 daily with Medical breakfast. [place] glipiZIDE 2021-06 Yes [id number] 10mg Take 1 [facility] [place] XL 10 mg 24 0-10 tablet by ity of hr tablet 00:00: mouth [place] 00 daily with Medical breakfast. [place] glipiZIDE 2021-06 Yes [id number] 10mg Take 1 [facility] [place] XL 10 mg 24 0-10 tablet by ity of hr tablet 00:00: mouth [place] 00 daily with Medical breakfast. [place] glipiZIDE 2021-06 Yes [id number] 10mg Take 1 [facility] [place] XL 10 mg 24 0-10 tablet by ity of hr tablet 00:00: mouth [place] 00 daily with Medical breakfast. [place] glipiZIDE 2021-06 Yes [id number] 10mg Take 1 [facility] XL 10 mg 24 0-10 tablet by ity of hr tablet 00:00: mouth [place] 00 daily with Medical breakfast. Branch glipiZIDE 2021-06 Yes [id number] 10mg Take 1 [facility] [place] XL 10 mg 24 0-10 tablet by ity of hr tablet 00:00: mouth [place] 00 daily with Medical breakfast. [facility] glipiZIDE 2021-06 Yes [id number] 10mg Take 1 [facility] XL 10 mg 24 0-10 tablet by ity of hr tablet 00:00: mouth [place] 00 daily with Medical breakfast. [facility] glipiZIDE 2021-06 Yes [id number] 10mg Take 1 [facility] XL 10 mg 24 0-10 tablet by ity of hr tablet 00:00: mouth [place] 00 daily with Medical breakfast. [facility] glipiZIDE 2021-06 Yes [id number] 10mg Take 1 [facility] XL 10 mg 24 0-10 tablet by [facility] of hr tablet 00:00: mouth [place] 00 daily with Medical breakfast. [facility] glipiZIDE 2021-06 Yes [id number] 10mg Take 1 [facility] [place] XL 10 mg 24 0-10 tablet by ity of hr tablet 00:00: mouth [place] 00 daily with Medical breakfast. [facility] glipiZIDE 2021-06 Yes [id number] 10mg Take 1 [facility] XL 10 mg 24 0-10 tablet by [facility]y of hr tablet 00:00: mouth [place] 00 daily with Medical breakfast. [facility] glipiZIDE 2021-06 Yes [id number] 10mg Take 1 [facility] XL 10 mg 24 0-10 tablet by [facility] of hr tablet 00:00: mouth [place] 00 daily with Medical breakfast. [facility] glipiZIDE 2021-06 Yes [id number] 10mg Take 1 [facility] XL 10 mg 24 0-10 tablet by ity of hr tablet 00:00: mouth [place] 00 daily with Medical breakfast. [facility] glipiZIDE 2021-06 Yes [id number] 10mg Take 1 [facility] XL 10 mg 24 0-10 tablet by [facility] of hr tablet 00:00: mouth [place] 00 daily with Medical breakfast. [facility] glipiZIDE 2021-06 Yes [id number] 10mg Take 1 [facility] XL 10 mg 24 0-10 tablet by ity of hr tablet 00:00: mouth [place] 00 daily with Medical breakfast. [facility] glipiZIDE 2021-06 Yes [id number] 10mg Take 1 [facility] XL 10 mg 24 0-10 tablet by [facility] of hr tablet 00:00: mouth [place] 00 daily with Medical breakfast. [facility] glipiZIDE 2021-06 Yes [id number] 10mg Take 1 [facility] XL 10 mg 24 0-10 tablet by ity of hr tablet 00:00: mouth [place] 00 daily with Medical breakfast. [facility] glipiZIDE 2021-06 Yes [id number] 10mg Take 1 [facility] [place] XL 10 mg 24 0-10 tablet by ity of hr tablet 00:00: mouth [place] 00 daily with Medical breakfast. [facility] glipiZIDE 2021-06 Yes [id number] 10mg Take 1 [facility] [place] XL 10 mg 24 0-10 tablet by ity of hr tablet 00:00: mouth [place] 00 daily with Medical breakfast. [facility] glipiZIDE 2021-06 Yes [id number] 10mg Take 1 [facility] XL 10 mg 24 0-10 tablet by ity of hr tablet 00:00: mouth [place] 00 daily with Medical breakfast. [place] glipiZIDE 2021-06- No [id number] 10mg Take 1 U nivers XL 10 mg 24 0-10 07-06 tablet by it y of hr tablet 00:00: 00:00 mouth [place] 00 :00 daily with Medical breakfast. Branch glipiZIDE 2021-06- No [id number] 10mg Take 1 U nivers 10 mg 0-10 10-10 tablet by ity of tablet 00:00: 00:00 mouth in [place] 00 :00 the Medical morning. Branch glipiZIDE 2021-06- No [id number] 10mg Take 1 [facility] nivers 10 mg 0-10 10-10 tablet by [facility] of tablet 00:00: 00:00 mouth in [place] 00 :00 the Medical morning. [facility] lovastatin 2021-06- No 40mg Take 40 mg [facility] 40 mg 0-04 10-04 by mouth it[facility] of tablet 12:53: 00:00 daily. [place] 29 :00 Medical Branch LOVASTATIN 2021-06 Yes [id number] TAKE 1 U nivers 40 mg 0-04 TABLET BY ity of tablet 00:00: MOUTH WITH [place] 00 EVENING Medical MEAL 90 Branch LOVASTATIN 2021-06 Yes [id number] TAKE 1 U nivers 40 mg 0-04 TABLET BY ity of tablet 00:00: MOUTH WITH [place] 00 EVENING Medical MEAL 90 Branch LOVASTATIN 2021-06 Yes [id number] TAKE 1 U nivers 40 mg 0-04 TABLET BY ity of tablet 00:00: MOUTH WITH EVENING Medical MEAL 90 Branch LOVASTATIN 2021-06 Yes [id number] TAKE 1 [facility] n[facility] 40 mg 0-04 TABLET BY ity of tablet 00:00: MOUTH WITH EVENING Medical MEAL 90 Branch LOVASTATIN 2021-06 Yes [id number] TAKE 1 [facility] 40 mg 0-04 TABLET BY ity of tablet 00:00: MOUTH WITH EVENING Medical MEAL 90 Branch LOVASTATIN 2021-06 Yes [id number] TAKE 1 [facility] 40 mg 0-04 TABLET BY [facility]y of tablet 00:00: MOUTH WITH EVENING Medical MEAL 90 Branch LOVASTATIN 2021-06 Yes [id number] TAKE 1 [facility] 40 mg 0-04 TABLET BY ity of tablet 00:00: MOUTH WITH EVENING Medical MEAL 90 Branch LOVASTATIN 2021-06 Yes [id number] TAKE 1 [facility] 40 mg 0-04 TABLET BY ity of tablet 00:00: MOUTH WITH EVENING Medical MEAL 90 Branch LOVASTATIN 2021-06 Yes [id number] TAKE 1 [facility] 40 mg 0-04 TABLET BY ity of tablet 00:00: MOUTH WITH EVENING Medical MEAL 90 Branch LOVASTATIN 2021-06 Yes [id number] TAKE 1 [facility] 40 mg 0-04 TABLET BY ity of tablet 00:00: MOUTH WITH EVENING Medical MEAL 90 Branch LOVASTATIN 2021-06 Yes [id number] TAKE 1 [facility] 40 mg 0-04 TABLET BY ity of tablet 00:00: MOUTH WITH EVENING Medical MEAL 90 Branch LOVASTATIN 2021-06 Yes [id number] TAKE 1 [facility] 40 mg 0-04 TABLET BY ity of tablet 00:00: MOUTH WITH EVENING Medical MEAL 90 Branch LOVASTATIN 2021-06 Yes [id number] TAKE 1 [facility] nivers 40 mg 0-04 TABLET BY ity of tablet 00:00: MOUTH WITH EVENING Medical MEAL 90 Branch LOVASTATIN 2021-06 Yes [id number] TAKE 1 [facility] 40 mg 0-04 TABLET BY ity of tablet 00:00: MOUTH WITH EVENING Medical MEAL 90 Branch LOVASTATIN 2021-06 Yes [id number] TAKE 1 [facility] 40 mg 0-04 TABLET BY ity of tablet 00:00: MOUTH WITH EVENING Medical MEAL 90 Branch LOVASTATIN 2021-06 Yes [id number] TAKE 1 [facility] n[facility] 40 mg 0-04 TABLET BY ity of tablet 00:00: MOUTH WITH [place] 00 EVENING Medical MEAL 90 Branch LOVASTATIN 2021-06- No [id number] TAKE 1 [facility] 40 mg 0-04 12-22 TABLET BY [facility] tablet 00:00: 00:00 MOUTH [place] 00 :00 EVENING Medical MEAL 90 Branch TOPIRAMATE 2021- No 50mg Take 50 mg [facility] ORAL 8 08-15 by mouth ity of 14:03: 00:00 at [place] 47 :00 bedtime. Medical Branch tamsulosin 2021- No Take by [facility] vers (FLOMAX) 8-15 08-15 mouth ity of 0.4 mg 24 14:02: 00:00 daily. [place] hr capsule 29 :00 Medical Branch traZODONE 2021- No 100mg Take 100 [facility] (DESYREL) 8 08-15 mg by ity of 100 mg 14:02: 00:00 mouth at [place] tablet 19 :00 bedtime. Medical Branch Tamsulosin Tamsulosin 2022- No 2{capsu QD Tamsulosin HCl 0.4 MG HCl 0.4 MG 12-24-09 les} HCl 0.4 MG 00:00: 00:00 00 :00 Tamsulosin Tamsulosin 2022- No 2{capsu QD Tamsulosin HCl 0.4 MG HCl 0.4 MG 12-24-09 les} HCl 0.4 MG 00:00: 00:00 00 :00 topiramate 2021- No [id number] 50mg Take 1 [facility] 50 mg 7- 08-15 tablet by it[facility] of tablet 00:00: [...] by mouth ity of tablet 13:57: daily. [place] [address] Medical Branch metFORMIN 0 Yes 500mg Take 500 [facility] vers 500 mg 5-13 mg by ity of tablet 13:57: mouth [place] 16 daily. Medical Branch pantoprazol 0 Yes 40mg Take 40 mg [facility] 40 mg EC 5-13 by mouth ity o f tablet 13:57: daily. [place] [address] [facility] Branch mirtazapine 0 Yes 15mg Take [...] 5-13 mg by ity of 13:57: mouth. [place] [address] Indication Medical s: 2 Branch tablets BID [...] by mouth ity of tablet 13:57: daily. [place] [address] [facility] Branch metFORMIN 0 Yes 500mg Take 500 [facility] vers 500 mg 5-13 mg by ity of tablet 13:57: mouth [place] 16 daily. Medical Branch pantoprazol 2022-0 Yes 40mg Take 40 mg [facility] 40 mg EC 5-13 by mouth ity o f tablet 13:57: daily. [place] [address] [facility] Branch mirtazapine Yes 15mg Take 15 [...] 5-13 mg by ity of 13:57: mouth. [place] [address] Indication Medical s: 2 Branch tablets BID gabapentin Yes 800mg Take 800 [facility] [place] (NEURONTIN) 5-13 mg by ity of 300 mg 13:57: mouth 3 [place] capsule 16 (three) Medical times Branch daily. atorvastati Yes 10mg Take 10 mg [facility] n (LIPITOR) 5-13 by mouth ity of 10 mg 13:57: at [place] [facility] 16 bedtime. Medical Branch HYDROcodone Yes 1{tbl} Take 1 [facility] [place] -acetaminop 5-13 tablet by ity of hen (NORCO) 13:57: mouth [place] 10-325 mg 16 every 6 Medical tablet (six) Branch hours as needed. meloxicam Yes 15mg Take 15 mg [facility] [place] 15 mg 5-13 by mouth ity of tablet 13:57: daily. [place] [address] [facility] Branch metFORMIN Yes 500mg Take 500 [facility] vers 500 mg 5-13 mg by ity of tablet 13:57: mouth [place] 16 daily. Medical Branch pantoprazol Yes 40mg Take 40 mg [facility] 40 mg EC 5-13 by mouth ity o f tablet 13:57: daily. [place] [address] [facility] Branch mirtazapine Yes 15mg Take 15 mg [facility] 15 mg 5-13 by mouth ity of tablet 13:57: at [place] 16 bedtime. Medical Branch SITagliptin Yes Take by [facility] vers -metformin 5-13 mouth. ity of (JUNUME 13:57: Indication [place] as XR) 16 s: 2 tabs Medical 50-1,000 mg BID Branch per tablet BUPROPION Yes 150mg Take 150 [facility] vers HCL ORAL 5-13 mg by ity of 13:57: mouth. [place] [address] Indication Medical s: 2 Branch tablets BID [...] by mouth ity of tablet 13:57: daily. [place] [address] [facility] Branch metFORMIN Yes 500mg Take 500 [facility] vers 500 mg 5-13 mg by ity of tablet 13:57: mouth [place] 16 daily. Medical Branch pantoprazol Yes 40mg Take 40 mg [facility] 40 mg EC 5-13 by mouth ity o f tablet 13:57: daily. [place] [address] [facility] Branch mirtazapine Yes 15mg Take 15 [...] 5-13 mg by ity of 13:57: mouth. [place] [address] Indication Medical s: 2 Branch tablets BID [...] by mouth ity of tablet 13:57: daily. [place] [address] [facility] Branch metFORMIN 0 Yes 500mg Take 500 [facility] vers 500 mg 5-13 mg by ity of tablet 13:57: mouth [place] 16 daily. Medical Branch pantoprazol 0 Yes 40mg Take 40 mg [facility] 40 mg EC 5-13 by mouth ity o f tablet 13:57: daily. [place] [address] [facility] Branch mirtazapine 0 Yes 15mg Take [...] 5-13 mg by ity of 13:57: mouth. [place] [address] Indication Medical s: 2 Branch tablets BID [...] by mouth ity of tablet 13:57: daily. [place] [address] [facility] Branch metFORMIN 0 Yes 500mg Take 500 [facility] vers 500 mg 5-13 mg by ity of tablet 13:57: mouth [place] 16 daily. Medical Branch pantoprazol Yes 40mg Take 40 mg [facility] 40 mg EC 5-13 by mouth ity o f tablet 13:57: daily. [place] [address] [facility] Branch mirtazapine Yes 15mg Take 15 mg [facility] 15 mg 5-13 by mouth ity of tablet 13:57: at [place] [address] bedtime. Medical Branch SITagliptin Yes Take by [facility] vers -metformin 5-13 mouth. ity of (JANUMET 13:57: Indication [place] as XR) 16 s: 2 tabs Medical 50-1,000 mg BID Branch per tablet BUPROPION Yes 150mg Take 150 [facility] vers HCL ORAL 5-13 mg by ity of 13:57: mouth. [place] 16 Indication Medical s: 2 Branch tablets BID gabapentin Yes 800mg Take 800 [facility] [place] (NEURONTIN) 5-13 mg by ity of 300 mg 13:57: mouth 3 [place] capsule 16 (three) Medical times Branch daily. atorvastati Yes 10mg Take 10 mg [facility] n (LIPITOR) 5-13 by mouth ity of 10 mg 13:57: at [place] [facility] 16 bedtime. Medical Branch HYDROcodone Yes 1{tbl} Take 1 [facility] [place] -acetaminop 5-13 tablet by ity of hen (NORCO) 13:57: mouth [place] 10-325 mg 16 every 6 Medical tablet (six) Branch hours as needed. meloxicam Yes 15mg Take 15 mg [facility] [place] 15 mg 5-13 by mouth ity of tablet 13:57: daily. [place] [address] [facility] Branch metFORMIN Yes 500mg Take 500 [facility] vers 500 mg 5-13 mg by ity of tablet 13:57: mouth [place] 16 daily. Medical Branch pantoprazol Yes 40mg Take 40 mg [facility] 40 mg EC 5-13 by mouth ity o f tablet 13:57: daily. [place] [address] [facility] Branch mirtazapine Yes 15mg Take 15 mg [facility] 15 mg 5-13 by mouth ity of tablet 13:57: at [place] [address] bedtime. Medical Branch SITagliptin Yes Take by [facility] vers -metformin 5-13 mouth. ity of (JUNUMET 13:57: Indication [place] as XR) 16 s: 2 tabs Medical 50-1,000 mg BID Branch per tablet BUPROPION 0 Yes 150mg Take 150 [facility] vers HCL ORAL 5-13 mg by ity of 13:57: mouth. [place] [address] Indication Medical s: 2 Branch tablets BID gabapentin 0 Yes 800mg Take 800 [facility] [place] (NEURONTIN) 5-13 mg by ity of 300 mg 13:57: mouth 3 [place] capsule 16 (three) Medical times Branch daily. atorvastati 0 Yes 10mg Take 10 mg [facility] n (LIPITOR) 5-13 by mouth ity of 10 mg 13:57: at [place] [facility] 16 bedtime. Medical Branch HYDROcodone Yes 1{tbl} Take 1 [facility] [place] -acetaminop 5-13 tablet by ity of hen (NORCO) 13:57: mouth [place] 10-325 mg 16 every 6 Medical tablet (six) Branch hours as needed. meloxicam 0 Yes 15mg Take 15 mg [facility] [place] 15 mg 5-13 by mouth ity of tablet 13:57: daily. [place] [address] [facility] Branch metFORMIN 0 Yes 500mg Take 500 [facility] vers 500 mg 5-13 mg by ity of tablet 13:57: mouth [place] 16 daily. Medical Branch pantoprazol Yes 40mg Take 40 mg [facility] 40 mg EC 5-13 by mouth ity o f tablet 13:57: daily. [place] [address] [facility] Branch mirtazapine 0 Yes 15mg Take 15 mg [facility] 15 mg 5-13 by mouth ity of tablet 13:57: at [place] [address] bedtime. Medical Branch SITagliptin Yes Take by [facility] vers -metformin 5-13 mouth. ity of (JUNUMET 13:57: Indication [place] [facility] XR) 16 s: 2 tabs Medical 50-1,000 mg BID Branch per tablet BUPROPION 0 Yes 150mg Take 150 [facility] vers HCL ORAL 5-13 mg by ity of 13:57: mouth. [place] [address] Indication Medical s: 2 Branch tablets BID gabapentin 0 Yes 800mg Take 800 [facility] [place] (NEURONTIN) 5-13 mg by ity of 300 mg 13:57: mouth 3 [place] capsule 16 (three) Medical times Branch daily. [...] by mouth ity of tablet 13:57: daily. [place] [address] [facility] Branch metFORMIN Yes 500mg Take 500 [facility] vers 500 mg 5-13 mg by ity of tablet 13:57: mouth [place] 16 daily. Medical Branch pantoprazol Yes 40mg Take 40 mg [facility] 40 mg EC 5-13 by mouth ity o f tablet 13:57: daily. [place] [address] [facility] Branch mirtazapine Yes 15mg Take 15 [...] 5-13 mg by ity of 13:57: mouth. [place] [address] Indication Medical s: 2 Branch tablets BID [...] by mouth ity of tablet 13:57: daily. [place] [address] [facility] Branch metFORMIN Yes 500mg Take 500 [facility] vers 500 mg 5-13 mg by ity of tablet 13:57: mouth [place] 16 daily. Medical Branch pantoprazol 0 Yes 40mg Take 40 mg [facility] 40 mg EC 5-13 by mouth ity o f tablet 13:57: daily. [place] [address] [facility] Branch mirtazapine 0 Yes 15mg Take [...] 5-13 mg by ity of 13:57: mouth. [place] [address] Indication Medical s: 2 Branch tablets BID gabapentin Yes 800mg Take 800 [facility] [place] (NEURONTIN) 5-13 mg by ity of 300 mg 13:57: mouth 3 [place] capsule 16 (three) Medical times Branch daily. atorvastati Yes 10mg Take 10 mg [facility] n (LIPITOR) 5-13 by mouth ity of 10 mg 13:57: at [place] [facility] 16 bedtime. Medical Branch HYDROcodone Yes 1{tbl} Take 1 [facility] [place] -acetaminop 5-13 tablet by ity of hen (NORCO) 13:57: mouth [place] 10-325 mg 16 every 6 Medical tablet (six) Branch hours as needed. meloxicam Yes 15mg Take 15 mg [facility] [place] 15 mg 5-13 by mouth ity of tablet 13:57: daily. [place] [address] [facility] Branch metFORMIN 0 Yes 500mg Take 500 [facility] vers 500 mg 5-13 mg by ity of tablet 13:57: mouth [place] 16 daily. Medical Branch pantoprazol 0 Yes 40mg Take 40 mg [facility] 40 mg EC 5-13 by mouth ity o f tablet 13:57: daily. [place] [address] [facility] Branch mirtazapine 0 Yes 15mg Take [...] 5-13 mg by ity of 13:57: mouth. [place] [address] Indication Medical s: 2 Branch tablets BID gabapentin 0 Yes 800mg Take 800 [facility] [place] (NEURONTIN) 5-13 mg by ity of 300 mg 13:57: mouth 3 [place] capsule 16 (three) Medical times Branch daily. atorvastati Yes 10mg Take 10 mg [facility] n (LIPITOR) 5-13 by mouth ity of 10 mg 13:57: at [place] [facility] 16 bedtime. Medical Branch HYDROcodone Yes 1{tbl} Take 1 [facility] [place] -acetaminop 5-13 tablet by ity of hen (NORCO) 13:57: mouth [place] 10-325 mg 16 every 6 Medical tablet (six) Branch hours as needed. meloxicam Yes 15mg Take 15 mg [facility] [place] 15 mg 5-13 by mouth ity of tablet 13:57: daily. [place] [address] [facility] Branch metFORMIN Yes 500mg Take 500 [facility] vers 500 mg 5-13 mg by ity of tablet 13:57: mouth [place] 16 daily. Medical Branch pantoprazol Yes 40mg Take 40 mg [facility] 40 mg EC 5-13 by mouth ity o f tablet 13:57: daily. [place] [address] [facility] Branch mirtazapine 0 Yes 15mg Take 15 mg [facility] 15 mg 5-13 by mouth ity of tablet 13:57: at [place] [address] bedtime. Medical Branch SITagliptin Yes Take by [facility] vers -metformin 5-13 mouth. ity of ( 13:57: Indication [place] as XR) 16 s: 2 tabs Medical 50-1,000 mg BID Branch per tablet BUPROPION 0 Yes 150mg Take 150 [facility] vers HCL ORAL 5-13 mg by ity of 13:57: mouth. [place] [address] Indication Medical s: 2 Branch tablets BID [...] by mouth ity of tablet 13:57: daily. [place] [address] [facility] Branch metFORMIN Yes 500mg Take 500 [facility] vers 500 mg 5-13 mg by ity of tablet 13:57: mouth [place] 16 daily. Medical Branch pantoprazol Yes 40mg Take 40 mg [facility] e 40 mg EC 5-13 by mouth ity o f tablet 13:57: daily. [place] [address] [facility] Branch mirtazapine Yes 15mg Take 15 [...] by mouth ity of tablet 13:57: daily. [place] [address] [facility] Branch metFORMIN 0 Yes 500mg Take 500 [facility] vers 500 mg 5-13 mg by ity of tablet 13:57: mouth [place] 16 daily. Medical Branch pantoprazol Yes 40mg Take 40 mg [facility] e 40 mg EC 5-13 by mouth ity o f tablet 13:57: daily. [place] [address] [facility] Branch mirtazapine 0 Yes 15mg Take [...] 5-13 mg by ity of 13:57: mouth. [place] [address] Indication Medical s: 2 Branch tablets BID [...] by mouth ity of tablet 13:57: daily. [place] [address] [facility] Branch metFORMIN 0 Yes 500mg Take 500 [facility] vers 500 mg 5-13 mg by ity of tablet 13:57: mouth [place] 16 daily. Medical Branch pantoprazol Yes 40mg Take 40 mg [facility] e 40 mg EC 5-13 by mouth ity o f tablet 13:57: daily. [place] [address] [facility] Branch mirtazapine Yes 15mg Take 15 mg [facility] 15 mg 5-13 by mouth ity of tablet 13:57: at [place] [address] bedtime. Medical Branch SITagliptin Yes Take by [facility] vers -metformin 5-13 mouth. ity of ( 13:57: Indication [place] as XR) 16 s: 2 tabs Medical 50-1,000 mg BID Branch per tablet BUPROPION Yes 150mg Take 150 [facility] vers HCL ORAL 5-13 mg by ity of 13:57: mouth. [place] [address] Indication Medical s: 2 Branch tablets BID gabapentin Yes 800mg Take 800 [facility] [place] (NEURONTIN) 5-13 mg by ity of 300 mg 13:57: mouth 3 [place] capsule 16 (three) Medical times Branch daily. atorvastati Yes 10mg Take 10 mg [facility] n (LIPITOR) 5-13 by mouth ity of 10 mg 13:57: at [place] [facility] 16 bedtime. Medical Branch HYDROcodone Yes 1{tbl} Take 1 [facility] [place] -acetaminop 5-13 tablet by ity of hen (NORCO) 13:57: mouth [place] 10-325 mg 16 every 6 Medical tablet (six) Branch hours as needed. meloxicam Yes 15mg Take 15 mg [facility] [place] 15 mg 5-13 by mouth ity of tablet 13:57: daily. [place] [address] Medical Branch metFORMIN Yes 500mg Take 500 [facility] vers 500 mg 5-13 mg by ity of tablet 13:57: mouth [place] 16 daily. Medical Branch pantoprazol Yes 40mg Take 40 mg [facility] e 40 mg EC 5-13 by mouth ity o f tablet 13:57: daily. [place] [address] [facility] Branch mirtazapine Yes 15mg Take 15 mg [facility] 15 mg 5-13 by mouth ity of tablet 13:57: at [place] [address] bedtime. Medical Branch SITagliptin Yes Take by [facility] vers -metformin 5-13 mouth. ity of ( 13:57: Indication [place] as XR) 16 s: 2 tabs Medical 50-1,000 mg BID Branch per tablet BUPROPION Yes 150mg Take 150 [facility] vers HCL ORAL 5-13 mg by ity of 13:57: mouth. [place] [address] Indication Medical s: 2 Branch tablets BID gabapentin Yes 800mg Take 800 [facility] [place] (NEURONTIN) 5-13 mg by ity of 300 mg 13:57: mouth 3 [place] capsule 16 (three) Medical times Branch daily. atorvastati Yes 10mg Take 10 mg [facility] n (LIPITOR) 5-13 by mouth ity of 10 mg 13:57: at [place] tablet 16 bedtime. Medical Branch HYDROcodone Yes 1{tbl} Take 1 [facility] [place] -acetaminop 5-13 tablet by ity of hen (NORCO) 13:57: mouth [place] 10-325 mg 16 every 6 Medical tablet (six) Branch hours as needed. meloxicam Yes 15mg Take 15 mg [facility] [place] 15 mg 5-13 by mouth ity of tablet 13:57: daily. [place] [address] Medical Branch metFORMIN Yes 500mg Take 500 [facility] vers 500 mg 5-13 mg by ity of tablet 13:57: mouth [place] 16 daily. Medical Branch pantoprazol Yes 40mg Take 40 mg [facility] e 40 mg EC 5-13 by mouth ity o f tablet 13:57: daily. [place] [address] [facility] Branch mirtazapine Yes 15mg Take 15 mg [facility] 15 mg 5-13 by mouth ity of tablet 13:57: at [place] [address] bedtime. Medical Branch SITagliptin Yes Take by [facility] vers -metformin 5-13 mouth. ity of (JANUMET 13:57: Indication [place] as XR) 16 s: 2 tabs Medical 50-1,000 mg BID Branch per tablet BUPROPION Yes 150mg Take 150 [facility] vers HCL ORAL 5-13 mg by ity of 13:57: mouth. [place] [address] Indication Medical s: 2 Branch tablets BID gabapentin Yes 800mg Take 800 [facility] [place] (NEURONTIN) 5-13 mg by ity of 300 mg 13:57: mouth 3 [place] capsule 16 (three) Medical times Branch daily. atorvastati Yes 10mg Take 10 mg [facility] n (LIPITOR) 5-13 by mouth ity of 10 mg 13:57: at [place] tablet 16 bedtime. Medical Branch HYDROcodone Yes 1{tbl} Take 1 [facility] [place] -acetaminop 5-13 tablet by ity of hen (NORCO) 13:57: mouth [place] 10-325 mg 16 every 6 Medical tablet (six) Branch hours as needed. meloxicam 0 Yes 15mg Take 15 mg [facility] [place] 15 mg 5-13 by mouth ity of tablet 13:57: daily. [place] [address] Medical Branch metFORMIN 0 Yes 500mg Take 500 [facility] vers 500 mg 5-13 mg by ity of tablet 13:57: mouth [place] 16 daily. Medical Branch pantoprazol 0 Yes 40mg Take 40 mg [facility] e 40 mg EC 5-13 by mouth ity o f tablet 13:57: daily. [place] [address] [facility] Branch mirtazapine 0 Yes 15mg Take [...] 5-13 mg by ity of 13:57: mouth. [place] [address] Indication Medical s: 2 Branch tablets BID [...] by mouth ity of tablet 13:57: daily. [place] [address] [facility] Branch metFORMIN 0 Yes 500mg Take 500 [facility] vers 500 mg 5-13 mg by ity of tablet 13:57: mouth [place] 16 daily. Medical Branch pantoprazol 0 Yes 40mg Take 40 mg [facility] e 40 mg EC 5-13 by mouth ity o f tablet 13:57: daily. [place] [address] Medical Branch mirtazapine Yes 15mg Take 15 mg [facility] 15 mg 5-13 by mouth ity of tablet 13:57: at [place] bedtime. Medical Branch SITagliptin Yes Take by [facility] vers -metformin 5-13 mouth. ity of (JANUMET 13:57: Indication [place] as XR) 16 s: 2 tabs Medical 50-1,000 mg BID Branch per tablet BUPROPION Yes 150mg Take 150 [facility] vers HCL ORAL 5-13 mg by ity of 13:57: mouth. [place] [address] Indication Medical s: 2 Branch tablets BID gabapentin Yes 800mg Take 800 [facility] [place] (NEURONTIN) 5-13 mg by ity of 300 mg 13:57: mouth 3 [place] capsule 16 (three) Medical times Branch daily. atorvastati Yes 10mg Take 10 mg [facility] n (LIPITOR) 5-13 by mouth ity of 10 mg 13:57: at [place] [facility] 16 bedtime. Medical Branch HYDROcodone Yes 1{tbl} Take 1 [facility] [place] -acetaminop 5-13 tablet by ity of hen (NORCO) 13:57: mouth [place] 10-325 mg 16 every 6 Medical tablet (six) Branch hours as needed. meloxicam Yes 15mg Take 15 mg [facility] [place] 15 mg 5-13 by mouth ity of tablet 13:57: daily. [place] [address] Medical Branch metFORMIN Yes 500mg Take 500 [facility] vers 500 mg 5-13 mg by ity of tablet 13:57: mouth [place] 16 daily. Medical Branch pantoprazol Yes 40mg Take 40 mg [facility] e 40 mg EC 5-13 by mouth ity o f tablet 13:57: daily. [place] [address] Medical Branch mirtazapine Yes 15mg Take 15 mg [facility] 15 mg 5-13 by mouth ity of tablet 13:57: at [place] 16 bedtime. Medical Branch SITagliptin Yes Take by [facility] vers -metformin 5-13 mouth. ity of (JUNUMET 13:57: Indication [place] as XR) 16 s: 2 tabs Medical 50-1,000 mg BID Branch per tablet BUPROPION 0 Yes 150mg Take 150 [facility] vers HCL ORAL 5-13 mg by ity of 13:57: mouth. [place] [address] Indication Medical s: 2 Branch tablets BID [...] by mouth ity of tablet 13:57: daily. [place] [address] Medical Branch metFORMIN 2021-0 Yes 500mg Take 500 [facility] vers 500 mg 5-13 mg by ity of tablet 13:57: mouth [place] 16 daily. Medical Branch pantoprazol 0 Yes 40mg Take 40 mg [facility] e 40 mg EC 5-13 by mouth ity o f tablet 13:57: daily. [place] [address] [facility] Branch mirtazapine 0 Yes 15mg Take 15 mg [facility] 15 mg 5-13 by mouth ity of tablet 13:57: at [place] 16 bedtime. Medical Branch BUPROPION 0 Yes 150mg Take 150 [facility] vers HCL ORAL 5-13 mg by ity of 13:57: mouth. [place] [address] Indication Medical s: 2 Branch tablets BID [...] by mouth ity of tablet 13:57: daily. [place] [address] [facility] Branch metFORMIN 0 Yes 500mg Take 500 [facility] vers 500 mg 5-13 mg by ity of tablet 13:57: mouth [place] 16 daily. Medical Branch pantoprazol 0 Yes 40mg Take 40 mg [facility] e 40 mg EC 5-13 by mouth ity o f tablet 13:57: daily. [place] [address] [facility] Branch mirtazapine 0 Yes 15mg Take 15 mg [facility] 15 mg 5-13 by mouth ity of tablet 13:57: at [place] [address] bedtime. Medical Branch BUPROPION 0 Yes 150mg Take 150 [facility] vers HCL ORAL 5-13 mg by ity of 13:57: mouth. [place] [address] Indication Medical s: 2 Branch tablets BID gabapentin 0 Yes 800mg Take 800 [facility] [place] (NEURONTIN) 5-13 mg by ity of 300 mg 13:57: mouth 3 [place] capsule 16 (three) Medical times Branch daily. atorvastati 0 Yes 10mg Take 10 mg [facility] n (LIPITOR) 5-13 by mouth ity of 10 mg 13:57: at [facility] 16 bedtime. Medical Branch HYDROcodone 0 Yes 1{tbl} Take 1 [facility] [place] -acetaminop 5-13 tablet by ity of hen (NORCO) 13:57: mouth [place] 10-325 mg 16 every 6 Medical tablet (six) Branch hours as needed. meloxicam 0 Yes 15mg Take 15 mg [facility] [place] 15 mg 5-13 by mouth ity of tablet 13:57: daily. [place] [address] Medical Branch metFORMIN 0 Yes 500mg Take 500 [facility] vers 500 mg 5-13 mg by ity of tablet 13:57: mouth [place] 16 daily. Medical Branch pantoprazol 0 Yes 40mg Take 40 mg [facility] e 40 mg EC 5-13 by mouth ity o f tablet 13:57: daily. [address] Branch mirtazapine 2021-0 Yes 15mg Take 15 mg [facility] 15 mg 5-13 by mouth ity of tablet 13:57: at [place] [address] bedtime. Medical Branch BUPROPION 2022-0 Yes 150mg Take 150 [facility] vers HCL ORAL 5-13 mg by ity of 13:57: mouth. [place] [address] Indication Medical s: 2 Branch tablets BID [...] by mouth ity of tablet 13:57: daily. [place] [address] Medical Branch metFORMIN 0 Yes 500mg Take 500 [facility] vers 500 mg 5-13 mg by ity of tablet 13:57: mouth [place] 16 daily. Medical Branch pantoprazol 0 Yes 40mg Take 40 mg [facility] e 40 mg EC 5-13 by mouth ity o f tablet 13:57: daily. [place] [address] [facility] Branch mirtazapine 0 Yes 15mg Take 15 mg [facility] 15 mg 5-13 by mouth ity of tablet 13:57: at [place] 16 bedtime. Medical Branch BUPROPION 0 Yes 150mg Take 150 [facility] vers HCL ORAL 5-13 mg by ity of 13:57: mouth. [place] [address] Indication Medical s: 2 Branch tablets BID [...] by mouth ity of tablet 13:57: daily. [address] Branch metFORMIN 0 Yes 500mg Take 500 [facility] vers 500 mg 5-13 mg by ity of tablet 13:57: mouth [place] 16 daily. Medical Branch pantoprazol 0 Yes 40mg Take 40 mg [facility] e 40 mg EC 5-13 by mouth ity o f tablet 13:57: daily. [address] Branch mirtazapine 2021-0 Yes 15mg Take 15 mg [facility] 15 mg 5-13 by mouth ity of tablet 13:57: at [place] 16 bedtime. Medical Branch BUPROPION 2021-0 Yes 150mg Take 150 Uni vers HCL ORAL 5-13 mg by ity of 13:57: mouth. [place] [address] Indication Medical s: 2 Branch tablets BID gabapentin 0 Yes 800mg Take 800 [facility] [place] (NEURONTIN) 5-13 mg by ity of 300 mg 13:57: mouth 3 [place] capsule 16 (three) Medical times Branch daily. atorvastati 0 Yes 10mg Take 10 mg [facility] n (LIPITOR) 5-13 by mouth ity of 10 mg 13:57: at [facility] 16 bedtime. Medical Branch HYDROcodone 0 Yes 1{tbl} Take 1 [facility] [place] -acetaminop 5-13 tablet by ity of hen (NORCO) 13:57: mouth [place] 10-325 mg 16 every 6 Medical tablet (six) Branch hours as needed. meloxicam 0 Yes 15mg Take 15 mg [facility] [place] 15 mg 5-13 by mouth ity of tablet 13:57: daily. [address] Branch metFORMIN 0 Yes 500mg Take 500 [facility] vers 500 mg 5-13 mg by ity of tablet 13:57: mouth [place] 16 daily. Medical Branch pantoprazol 0 Yes 40mg Take 40 mg [facility] e 40 mg EC 5-13 by mouth ity o f tablet 13:57: daily. [address] Branch mirtazapine 2021-0 Yes 15mg Take 15 mg [facility] 15 mg 5-13 by mouth ity of tablet 13:57: at [place] 16 bedtime. Medical Branch BUPROPION 2021-0 Yes 150mg Take 150 Uni vers HCL ORAL 5-13 mg by ity of 13:57: mouth. [place] [address] Indication Medical s: 2 Branch tablets BID [...] by mouth ity of tablet 13:57: daily. [place] [address] Medical Branch metFORMIN 0 Yes 500mg Take 500 [facility] vers 500 mg 5-13 mg by ity of tablet 13:57: mouth [place] 16 daily. Medical Branch pantoprazol 0 Yes 40mg Take 40 mg [facility] e 40 mg EC 5-13 by mouth ity o f tablet 13:57: daily. [place] [address] Medical Branch mirtazapine 0 Yes 15mg Take 15 mg [facility] 15 mg 5-13 by mouth ity of tablet 13:57: at [place] 16 bedtime. Medical Branch BUPROPION 0 Yes 150mg Take 150 [facility] vers HCL ORAL 5-13 mg by ity of 13:57: mouth. [place] [address] Indication Medical s: 2 Branch tablets BID [...] by mouth ity of tablet 13:57: daily. [place] [address] Medical Branch metFORMIN 0 Yes 500mg Take 500 [facility] vers 500 mg 5-13 mg by ity of tablet 13:57: mouth [place] 16 daily. Medical Branch pantoprazol 0 Yes 40mg Take 40 mg [facility] e 40 mg EC 5-13 by mouth ity o f tablet 13:57: daily. [place] [address] Medical Branch mirtazapine 0 Yes 15mg Take 15 mg [facility] 15 mg 5-13 by mouth ity of tablet 13:57: at [place] 16 bedtime. Medical Branch BUPROPION 0 Yes 150mg Take 150 [facility] vers HCL ORAL 5-13 mg by ity of 13:57: mouth. [place] [address] Indication Medical s: 2 Branch tablets BID gabapentin 0 Yes 800mg Take 800 [facility] [place] (NEURONTIN) 5-13 mg by ity of 300 mg 13:57: mouth 3 [place] capsule 16 (three) Medical times Branch daily. atorvastati 0 Yes 10mg Take 10 mg [facility] n (LIPITOR) 5-13 by mouth ity of 10 mg 13:57: at [place] [facility] 16 bedtime. Medical Branch HYDROcodone 0 Yes 1{tbl} Take 1 [facility] [place] -acetaminop 5-13 tablet by ity of hen (NORCO) 13:57: mouth [place] 10-325 mg 16 every 6 Medical tablet (six) Branch hours as needed. meloxicam 0 Yes 15mg Take 15 mg [facility] [place] 15 mg 5-13 by mouth ity of tablet 13:57: daily. [place] [address] Medical Branch metFORMIN 0 Yes 500mg Take 500 [facility] vers 500 mg 5-13 mg by ity of tablet 13:57: mouth [place] 16 daily. Medical Branch pantoprazol 0 Yes 40mg Take 40 mg [facility] e 40 mg EC 5-13 by mouth ity o f tablet 13:57: daily. [place] [address] Medical Branch mirtazapine 0 Yes 15mg Take 15 mg [facility] 15 mg 5-13 by mouth ity of tablet 13:57: at [place] 16 bedtime. Medical Branch BUPROPION 2021-0 Yes 150mg Take 150 Uni vers HCL ORAL 5-13 mg by ity of 13:57: mouth. [place] [address] Indication Medical s: 2 Branch tablets BID [...] by mouth ity of tablet 13:57: daily. [place] [address] Medical Branch metFORMIN 2021-0 Yes 500mg Take 500 [facility] vers 500 mg 5-13 mg by ity of tablet 13:57: mouth [place] 16 daily. Medical Branch pantoprazol 2021-0 Yes 40mg Take 40 mg [facility] e 40 mg EC 5-13 by mouth ity o f tablet 13:57: daily. [place] [address] Medical Branch mirtazapine 2021-0 Yes 15mg Take 15 mg [facility] 15 mg 5-13 by mouth ity of tablet 13:57: at [place] 16 bedtime. Medical Branch BUPROPION 2021-0 Yes 150mg Take 150 [facility] vers HCL ORAL 5-13 mg by ity of 13:57: mouth. [place] [address] Indication Medical s: 2 Branch tablets BID [...] by mouth ity of tablet 13:57: daily. [place] [address] Medical Branch metFORMIN 2021-0 Yes 500mg Take 500 [facility] vers 500 mg 5-13 mg by ity of tablet 13:57: mouth [place] 16 daily. Medical Branch pantoprazol 0 Yes 40mg Take 40 mg [facility] e 40 mg EC 5-13 by mouth ity o f tablet 13:57: daily. [place] [address] Medical Branch mirtazapine 2021-0 Yes 15mg Take 15 mg [facility] 15 mg 5-13 by mouth ity of tablet 13:57: at [place] 16 bedtime. [facility] Branch BUPROPION 2021-0 Yes 150mg Take 150 Uni vers HCL ORAL 5-13 mg by ity of 13:57: mouth. [place] [address] Indication Medical s: 2 Branch tablets BID [...] by mouth ity of tablet 13:57: daily. [place] [address] Medical Branch metFORMIN 2021-0 Yes 500mg Take [...] 5-13 mg by ity of 13:57: mouth. [place] [address] Indication Medical s: 2 Branch tablets BID [...] by mouth ity of tablet 13:57: daily. [place] [address] [facility] Branch metFORMIN 2021-0 Yes 500mg Take [...] 5-13 mg by ity of 13:57: mouth. [place] [address] Indication Medical s: 2 Branch tablets BID gabapentin 2021-0 Yes 800mg Take 800 [facility] (NEURONTIN) 5-13 mg by ity of 300 mg 13:57: mouth 3 [place] capsule 16 (three) Medical times Branch daily. atorvastati 2-0 Yes 10mg Take 10 mg [facility] n (LIPITOR) 5-13 by mouth ity of 10 mg 13:57: at [place] tablet 16 bedtime. Medical Branch HYDROcodone 2-0 Yes 1{tbl} Take 1 [facility] [place] -acetaminop 5-13 tablet by ity of hen (NORCO) 13:57: mouth [place] 10-325 mg 16 every 6 Medical tablet (six) Branch hours as needed. meloxicam 2022-0 Yes 15mg Take 15 mg [facility] [place] 15 mg 5-13 by mouth ity of tablet 13:57: daily. [place] [address] Medical Branch metFORMIN 2-0 Yes 500mg Take [...] 5-13 mg by ity of 13:57: mouth. [place] [address] Indication Medical s: 2 Branch tablets BID [...] by mouth ity of tablet 13:57: daily. [place] [address] Medical Branch metFORMIN 2021-0 Yes 500mg Take [...] 5-13 mg by ity of 13:57: mouth. [place] [address] Indication Medical s: 2 Branch tablets BID [...] by mouth ity of tablet 13:57: daily. [place] [address] Medical Branch metFORMIN 2021-0 Yes 500mg Take [...] 5-13 mg by ity of 13:57: mouth. [place] [address] Indication Medical s: 2 Branch tablets BID [...] by mouth ity of tablet 13:57: daily. [place] [address] [facility] Branch metFORMIN 2021-0 Yes 500mg Take [...] 5-13 mg by ity of 13:57: mouth. [place] [address] Indication Medical s: 2 Branch tablets BID gabapentin 2021-0 Yes 800mg Take 800 [facility] [place] (NEURONTIN) 5-13 mg by ity of 300 mg 13:57: mouth 3 [place] capsule 16 (three) Medical times Branch daily. HYDROcodone 2021-0 Yes 1{tbl} Take 1 [facility] [place] -acetaminop 5-13 tablet by ity of hen (NORCO) 13:57: mouth [place] 10-325 mg 16 every 6 Medical tablet (six) Branch hours as needed. meloxicam 2022-0 Yes 15mg Take 15 mg [facility] [place] 15 mg 5-13 by mouth ity of tablet 13:57: daily. [place] [address] Medical Branch metFORMIN 2022-0 Yes 500mg Take 500 Uni vers 500 mg 5-13 mg by ity of tablet 13:57: mouth [place] 16 daily. Medical Branch mirtazapine 2022-0 Yes 15mg Take 15 mg [facility] 15 mg 5-13 by mouth ity of tablet 13:57: at [place] 16 bedtime. Medical Branch BUPROPION 2-0 Yes 150mg Take 150 [facility] vers HCL ORAL 5-13 mg by ity of 13:57: mouth. [place] [address] Indication Medical s: 2 Branch tablets BID gabapentin 2-0 Yes 800mg Take 800 [facility] [place] (NEURONTIN) 5-13 mg by ity of 300 mg 13:57: mouth 3 [place] capsule 16 (three) Medical times Branch daily. HYDROcodone 2-0 Yes 1{tbl} Take 1 [facility] [place] -acetaminop 5-13 tablet by ity of hen (NORCO) 13:57: mouth [place] 10-325 mg 16 every 6 Medical tablet (six) Branch hours as needed. meloxicam 2-0 Yes 15mg Take 15 mg [facility] [place] 15 mg 5-13 by mouth ity of tablet 13:57: daily. [place] [address] Medical Branch metFORMIN 2-0 Yes 500mg Take [...] 5-13 mg by ity of 13:57: mouth. [place] [address] Indication Medical s: 2 Branch tablets BID [...] by mouth ity of tablet 13:57: daily. [place] [address] Medical Branch metFORMIN 2022-0 Yes 500mg Take 500 [facility] vers 500 mg 5-13 mg by ity of tablet 13:57: mouth [place] 16 daily. Medical Branch mirtazapine 2022-0 Yes 15mg Take 15 mg [facility] 15 mg 5-13 by mouth ity of tablet 13:57: at [place] 16 bedtime. Medical Branch BUPROPION 2-0 Yes 150mg Take 150 [facility] vers HCL ORAL 5-13 mg by ity of 13:57: mouth. [place] [address] Indication Medical s: 2 Branch tablets BID gabapentin 2-0 Yes 800mg Take 800 [facility] [place] (NEURONTIN) 5-13 mg by ity of 300 mg 13:57: mouth 3 [place] capsule 16 (three) Medical times Branch daily. HYDROcodone 2-0 Yes 1{tbl} Take 1 [facility] [place] -acetaminop 5-13 tablet by ity of hen (NORCO) 13:57: mouth [place] 10-325 mg 16 every 6 Medical tablet (six) Branch hours as needed. meloxicam 2-0 Yes 15mg Take 15 mg [facility] [place] 15 mg 5-13 by mouth ity of tablet 13:57: daily. [place] [address] Medical Branch metFORMIN 2-0 Yes 500mg Take [...] 5-13 mg by ity of 13:57: mouth. [place] [address] Indication Medical s: 2 Branch tablets BID [...] by mouth ity of tablet 13:57: daily. [place] [address] Medical Branch metFORMIN 2022-0 Yes 500mg Take 500 [facility] vers 500 mg 5-13 mg by ity of tablet 13:57: mouth [place] 16 daily. Medical Branch mirtazapine 2022-0 Yes 15mg Take 15 mg [facility] 15 mg 5-13 by mouth ity of tablet 13:57: at [place] [address] bedtime. Medical Branch BUPROPION 2022-0 Yes 150mg Take 150 [facility] vers HCL ORAL 5-13 mg by ity of 13:57: mouth. [place] [address] Indication Medical s: 2 Branch tablets BID [...] by mouth ity of tablet 13:57: daily. [place] [address] Medical Branch mirtazapine 2022-0 Yes 15mg Take 15 mg [facility] 15 mg 5-13 by mouth ity of tablet 13:57: at [place] [address] bedtime. Medical Branch BUPROPION 2022-0 Yes 150mg Take 150 [facility] vers HCL ORAL 5-13 mg by ity of 13:57: mouth. [place] [address] Indication Medical s: 2 Branch tablets BID [...] by mouth ity of tablet 13:57: daily. [place] [address] Medical Branch mirtazapine 2022-0 Yes 15mg Take 15 mg [facility] 15 mg 5-13 by mouth ity of tablet 13:57: at [place] [address] bedtime. Medical Branch BUPROPION 2022-0 Yes 150mg Take 150 [facility] vers HCL ORAL 5-13 mg by ity of 13:57: mouth. [place] [address] Indication Medical s: 2 Branch tablets BID gabapentin 2022-0 Yes 800mg Take 800 [facility] [place] (NEURONTIN) 5-13 mg by ity of 300 mg 13:57: mouth 3 [place] capsule 16 (three) Medical times Branch daily. HYDROcodone 2022-0 Yes 1{tbl} Take 1 [facility] [place] -acetaminop 5-13 tablet by ity of hen (NORCO) 13:57: mouth [place] 10-325 mg 16 every 6 Medical tablet (six) Branch hours as needed. meloxicam 2022-0 Yes 15mg Take 15 mg [facility] [place] 15 mg 5-13 by mouth ity of tablet 13:57: daily. [place] [address] Medical Branch mirtazapine 2022-0 Yes 15mg Take 15 mg [facility] 15 mg 5-13 by mouth ity of tablet 13:57: at [place] [address] bedtime. Medical Branch BUPROPION 2022-0 Yes 150mg Take 150 [facility] vers HCL ORAL 5-13 mg by ity of 13:57: mouth. [place] [address] Indication Medical s: 2 Branch tablets BID [...] by mouth ity of tablet 13:57: daily. [place] [address] Medical Branch BUPROPION 2022-0 Yes 150mg Take 150 [facility] vers HCL ORAL 5-13 mg by ity of 13:57: mouth. [place] [address] Indication Medical s: 2 Branch tablets BID [...] by mouth ity of tablet 13:57: daily. [place] [address] Medical Branch BUPROPION 2022-0 Yes 150mg Take 150 [facility] vers HCL ORAL 5-13 mg by ity of 13:57: mouth. [place] [address] Indication Medical s: 2 Branch tablets BID [...] by mouth ity of tablet 13:57: daily. [place] [address] Medical Branch BUPROPION 2022-0 Yes 150mg Take 150 [facility] vers HCL ORAL 5-13 mg by ity of 13:57: mouth. [place] [address] Indication Medical s: 2 Branch tablets BID [...] by mouth ity of tablet 13:57: daily. [place] [address] Medical Branch BUPROPION 2022-0 Yes 150mg Take 150 [facility] vers HCL ORAL 5-13 mg by ity of 13:57: mouth. [place] [address] Indication Medical s: 2 Branch tablets BID [...] by mouth ity of tablet 13:57: daily. [place] [address] Medical Branch BUPROPION 2022-0 Yes 150mg Take 150 [facility] vers HCL ORAL 5-13 mg by ity of 13:57: mouth. [place] [address] Indication Medical s: 2 Branch tablets BID [...] by mouth ity of tablet 13:57: daily. [place] [address] Medical Branch BUPROPION 2022-0 Yes 150mg Take 150 [facility] vers HCL ORAL 5-13 mg by ity of 13:57: mouth. [place] [address] Indication Medical s: 2 Branch tablets BID [...] by mouth ity of tablet 13:57: daily. [place] [address] Medical Branch BUPROPION 2022-0 Yes 150mg Take 150 [facility] vers HCL ORAL 5-13 mg by ity of 13:57: mouth. [place] [address] Indication Medical s: 2 Branch tablets BID [...] by mouth ity of tablet 13:57: daily. [place] [address] Medical Branch BUPROPION 2022-0 Yes 150mg Take 150 [facility] vers HCL ORAL 5-13 mg by ity of 13:57: mouth. [place] [address] Indication Medical s: 2 Branch tablets BID [...] by mouth ity of tablet 13:57: daily. [place] [address] Medical Branch BUPROPION 2022-0 Yes 150mg Take 150 [facility] vers HCL ORAL 5-13 mg by ity of 13:57: mouth. [place] [address] Indication Medical s: 2 Branch tablets BID [...] by mouth ity of tablet 13:57: daily. [place] [address] Medical Branch BUPROPION 2022-0 Yes 150mg Take 150 [facility] vers HCL ORAL 5-13 mg by ity of 13:57: mouth. [place] [address] Indication Medical s: 2 Branch tablets BID [...] by mouth ity of tablet 13:57: daily. [place] [address] Medical Branch BUPROPION 2022-0 Yes 150mg Take 150 Uni vers HCL ORAL 5-13 mg by ity of 13:57: mouth. [place] [address] Indication Medical s: 2 Branch tablets BID [...] by mouth ity of tablet 13:57: daily. [place] [address] Medical Branch BUPROPION 2022-0 Yes 150mg Take 150 [facility] vers HCL ORAL 5-13 mg by ity of 13:57: mouth. [place] [address] Indication Medical s: 2 Branch tablets BID [...] by mouth ity of tablet 13:57: daily. [place] [address] Medical Branch BUPROPION 2022-0 Yes 150mg Take 150 [facility] vers HCL ORAL 5-13 mg by ity of 13:57: mouth. [place] [address] Indication Medical s: 2 Branch tablets BID [...] by mouth ity of tablet 13:57: daily. [place] [address] Medical Branch BUPROPION 2022-0 Yes 150mg Take 150 [facility] vers HCL ORAL 5-13 mg by ity of 13:57: mouth. [place] [address] Indication Medical s: 2 Branch tablets BID [...] by mouth ity of tablet 13:57: daily. [place] [address] Medical Branch BUPROPION 2022-0 Yes 150mg Take 150 [facility] vers HCL ORAL 5-13 mg by ity of 13:57: mouth. [place] [address] Indication Medical s: 2 Branch tablets BID [...] by mouth ity of tablet 13:57: daily. [place] [address] Medical Branch BUPROPION 2022-0 Yes 150mg Take 150 [facility] vers HCL ORAL 5-13 mg by ity of 13:57: mouth. [place] [address] Indication Medical s: 2 Branch tablets BID [...] by mouth ity of tablet 13:57: daily. [address] Branch BUPROPION 2022-0 Yes 150mg Take 150 [facility] vers HCL ORAL 5-13 mg by ity of 13:57: mouth. [place] [address] Indication Medical s: 2 Branch tablets BID [...] by mouth ity of tablet 13:57: daily. [place] [address] Medical Branch BUPROPION 2022-0 Yes 150mg Take 150 [facility] vers HCL ORAL 5-13 mg by ity of 13:57: mouth. [place] [address] Indication Medical s: 2 Branch tablets BID [...] by mouth ity of tablet 13:57: daily. [place] [address] Medical Branch BUPROPION 2022-0 Yes 150mg Take 150 [facility] vers HCL ORAL 5-13 mg by ity of 13:57: mouth. [place] [address] Indication Medical s: 2 Branch tablets BID [...] by mouth ity of tablet 13:57: daily. [place] [address] Medical Branch BUPROPION 2022-0 Yes 150mg Take 150 [facility] vers HCL ORAL 5-13 mg by ity of 13:57: mouth. [place] [address] Indication Medical s: 2 Branch tablets BID [...] by mouth ity of tablet 13:57: daily. [place] [address] Medical Branch BUPROPION 2022-0 Yes 150mg Take 150 [facility] vers HCL ORAL 5-13 mg by ity of 13:57: mouth. [place] [address] Indication Medical s: 2 Branch tablets BID [...] by mouth ity of tablet 13:57: daily. [place] [address] Medical Branch BUPROPION 2022-0 Yes 150mg Take 150 [facility] vers HCL ORAL 5-13 mg by ity of 13:57: mouth. [place] [address] Indication Medical s: 2 Branch tablets BID [...] by mouth ity of tablet 13:57: daily. [place] [address] Medical Branch BUPROPION 2022-0 Yes 150mg Take 150 [facility] vers HCL ORAL 5-13 mg by ity of 13:57: mouth. [place] [address] Indication Medical s: 2 Branch tablets BID [...] by mouth ity of tablet 13:57: daily. [place] [address] Medical Branch BUPROPION 2022-0 Yes 150mg Take 150 Uni vers HCL ORAL 5-13 mg by ity of 13:57: mouth. [place] [address] Indication Medical s: 2 Branch tablets BID [...] by mouth ity of tablet 13:57: daily. [place] [address] Medical Branch BUPROPION 2022-0 Yes 150mg Take 150 [facility] vers HCL ORAL 5-13 mg by ity of 13:57: mouth. [place] [address] Indication Medical s: 2 Branch tablets BID [...] by mouth ity of tablet 13:57: daily. [place] [address] Medical Branch BUPROPION 2022-0 Yes 150mg Take 150 [facility] vers HCL ORAL 5-13 mg by ity of 13:57: mouth. [place] [address] Indication Medical s: 2 Branch tablets BID [...] by mouth ity of tablet 13:57: daily. [place] [address] Medical Branch BUPROPION 2022-0 Yes 150mg Take 150 Uni vers HCL ORAL 5-13 mg by ity of 13:57: mouth. [place] [address] Indication Medical s: 2 Branch tablets BID [...] by mouth ity of tablet 13:57: daily. [place] [address] Medical Branch BUPROPION 2022-0 Yes 150mg Take 150 Uni vers HCL ORAL 5-13 mg by ity of 13:57: mouth. [place] [address] Indication Medical s: 2 Branch tablets BID [...] by mouth ity of tablet 13:57: daily. [place] [address] Medical Branch BUPROPION 2022-0 Yes 150mg Take 150 Uni vers HCL ORAL 5-13 mg by ity of 13:57: mouth. [place] [address] Indication Medical s: 2 Branch tablets BID [...] by mouth ity of tablet 13:57: daily. [place] [address] Medical Branch BUPROPION 2022-0 Yes 150mg Take 150 Uni vers HCL ORAL 5-13 mg by ity of 13:57: mouth. [place] [address] Indication Medical s: 2 Branch tablets BID [...] by mouth ity of tablet 13:57: daily. [address] BUPROPION 2022-0 Yes 150mg Take 150 Uni vers HCL ORAL 5-13 mg by ity of 13:57: mouth. [place] [address] Indication Medical s: 2 Branch tablets BID [...] by mouth ity of tablet 13:57: daily. [address] Branch BUPROPION 2022-0 Yes 150mg Take 150 [facility] vers HCL ORAL 5-13 mg by ity of 13:57: mouth. [place] [address] Indication Medical s: 2 Branch tablets BID [...] by mouth ity of tablet 13:57: daily. [place] [address] Medical Branch BUPROPION 2022-0 Yes 150mg Take 150 [facility] vers HCL ORAL 5-13 mg by ity of 13:57: mouth. [place] [address] Indication Medical s: 2 Branch tablets BID [...] by mouth ity of tablet 13:57: daily. [place] [address] Medical Branch BUPROPION 2022-0 Yes 150mg Take 150 [facility] vers HCL ORAL 5-13 mg by ity of 13:57: mouth. [place] [address] Indication Medical s: 2 Branch tablets BID [...] by mouth ity of tablet 13:57: daily. [place] [address] Medical Branch BUPROPION 2022-0 Yes 150mg Take 150 [facility] vers HCL ORAL 5-13 mg by ity of 13:57: mouth. [place] [address] Indication Medical s: 2 Branch tablets BID [...] by mouth ity of tablet 13:57: daily. [place] [address] Medical Branch BUPROPION 2-0 Yes 150mg Take 150 [facility] vers HCL ORAL 5-13 mg by ity of 13:57: mouth. [place] [address] Indication Medical s: 2 Branch tablets BID [...] by mouth ity of tablet 13:57: daily. [place] [address] Medical Branch BUPROPION 2022-0 Yes 150mg Take 150 [facility] vers HCL ORAL 5-13 mg by ity of 13:57: mouth. [place] [address] Indication Medical s: 2 Branch tablets BID [...] by mouth ity of tablet 13:57: daily. [place] [address] Medical Branch BUPROPION 2022-0 Yes 150mg Take 150 [facility] vers HCL ORAL 5-13 mg by ity of 13:57: mouth. [place] [address] Indication Medical s: 2 Branch tablets BID [...] by mouth ity of tablet 13:57: daily. [place] [address] Medical Branch BUPROPION 2022-0 Yes 150mg Take 150 [facility] vers HCL ORAL 5-13 mg by ity of 13:57: mouth. [place] [address] Indication Medical s: 2 Branch tablets BID [...] by mouth ity of tablet 13:57: daily. [place] [address] Medical Branch BUPROPION 2022-0 Yes 150mg Take 150 [facility] vers HCL ORAL 5-13 mg by ity of 13:57: mouth. [place] [address] Indication Medical s: 2 Branch tablets BID [...] by mouth ity of tablet 13:57: daily. [place] [address] Medical Branch BUPROPION 2022-0 Yes 150mg Take 150 [facility] vers HCL ORAL 5-13 mg by ity of 13:57: mouth. [place] [address] Indication Medical s: 2 Branch tablets BID [...] by mouth ity of tablet 13:57: daily. [address] Branch BUPROPION 2022-0 Yes 150mg Take 150 [facility] vers HCL ORAL 5-13 mg by ity of 13:57: mouth. [place] [address] Indication Medical s: 2 Branch tablets BID [...] by mouth ity of tablet 13:57: daily. [place] [address] Medical Branch BUPROPION 2022-0 Yes 150mg Take 150 [facility] vers HCL ORAL 5-13 mg by ity of 13:57: mouth. [place] [address] Indication Medical s: 2 Branch tablets BID gabapentin 2022-0 Yes 800mg Take 800 [facility] [place] (NEURONTIN) 5-13 mg by ity of 300 mg 13:57: mouth 3 [place] capsule 16 (three) Medical times Branch daily. gabapentin 202-0 Yes 800mg Take 800 [facility] [place] (NEURONTIN) 5-13 mg by ity of 300 mg 13:57: mouth 3 [place] capsule 16 (three) Medical times Branch daily. HYDROcodone 2021-0 Yes 1{tbl} Take 1 [facility] [place] -acetaminop 5-13 tablet by ity of hen (NORCO) 13:57: mouth [place] 10-325 mg 16 every 6 Medical tablet (six) Branch hours as needed. meloxicam 202-0 Yes 15mg Take 15 mg [facility] [place] 15 mg 5-13 by mouth ity of tablet 13:57: daily. [place] [address] Medical Branch BUPROPION 2021-0 Yes 150mg Take 150 Uni vers HCL ORAL 5-13 mg by ity of 13:57: mouth. [place] [address] Indication Medical s: 2 Branch tablets BID atorvastati 0 Yes 10mg Take 10 mg [facility] n (LIPITOR) 5-13 by mouth ity of 10 mg 13:57: at [place] tablet 16 bedtime. Medical Branch gabapentin 2021-0 Yes 800mg Take 800 [facility] [place] (NEURONTIN) 5-13 mg by ity of 300 mg 13:57: mouth 3 [place] capsule 16 (three) Medical times Branch daily. HYDROcodone 2021-0 Yes 1{tbl} Take 1 [facility] [place] -acetaminop 5-13 tablet by ity of hen (NORCO) 13:57: mouth [place] 10-325 mg 16 every 6 Medical tablet (six) Branch hours as needed. meloxicam 2021-0 Yes 15mg Take 15 mg [facility] [place] 15 mg 5-13 by mouth ity of tablet 13:57: daily. [place] [address] Medical Branch HYDROcodone 2021-0 Yes 1{tbl} Take 1 [facility] [place] -acetaminop 5-13 tablet by ity of hen (NORCO) 13:57: mouth [place] 10-325 mg 16 every 6 Medical tablet (six) Branch hours as needed. BUPROPION 2021-0 Yes 150mg Take 150 [facility] vers HCL ORAL 5-13 mg by ity of 13:57: mouth. [place] [address] Indication Medical s: 2 Branch tablets BID meloxicam 2021-0 Yes 15mg Take 15 mg [facility] [place] 15 mg 5-13 by mouth ity of tablet 13:57: daily. [place] [address] Medical Branch metFORMIN 0 Yes 500mg Take 500 [facility] vers 500 mg 5-13 mg by ity of tablet 13:57: mouth [place] 16 daily. Medical Branch pantoprazol 0 Yes 40mg Take 40 mg [facility] e 40 mg EC 5-13 by mouth ity o f tablet 13:57: daily. [place] [address] Medical Branch lovastatin 0 Yes 40mg Take 40 mg U nivers 40 mg 5-13 by mouth ity of tablet 13:57: daily. [place] [address] Medical Branch mirtazapine 0 Yes 15mg Take [...] 5-13 mg by ity of 13:57: mouth. [place] [address] Indication Medical s: 2 Branch tablets BID [...] by mouth ity of tablet 13:57: daily. [place] [address] Medical Branch metFORMIN 0 Yes 500mg Take 500 [facility] vers 500 mg 5-13 mg by ity of tablet 13:57: mouth [place] 16 daily. Medical Branch pantoprazol 0 Yes 40mg Take 40 mg [facility] e 40 mg EC 5-13 by mouth ity o f tablet 13:57: daily. [place] [address] Medical Branch lovastatin 0 Yes 40mg Take 40 mg U nivers 40 mg 5-13 by mouth ity of tablet 13:57: daily. [place] [address] Medical Branch mirtazapine 0 Yes 15mg Take [...] 5-13 mg by ity of 13:57: mouth. [place] 16 Indication Medical s: 2 Branch tablets [...] by mouth ity of tablet 13:57: daily. [place] [address] Medical Branch metFORMIN 0 Yes 500mg Take 500 [facility] vers 500 mg 5-13 mg by ity of tablet 13:57: mouth [place] 16 daily. Medical Branch pantoprazol 0 Yes 40mg Take 40 mg [facility] e 40 mg EC 5-13 by mouth ity o f tablet 13:57: daily. [place] [address] Medical Branch lovastatin Yes 40mg Take 40 mg U nivers 40 mg 5-13 by mouth ity of tablet 13:57: daily. [place] [address] Medical Branch mirtazapine 0 Yes 15mg Take [...] 5-13 mg by ity of 13:57: mouth. [place] [address] Indication Medical s: 2 Branch tablets BID [...] ity of 10 mg 13:57: at [place] [facility] 16 bedtime. Medical Branch HYDROcodone Yes 1{tbl} Take 1 [facility] [place] -acetaminop 5-13 tablet by ity of hen (NORCO) 13:57: mouth [place] 10-325 mg 16 every 6 Medical tablet (six) Branch hours as needed. meloxicam Yes 15mg Take 15 mg [facility] [place] 15 mg 5-13 by mouth ity of tablet 13:57: daily. [place] [address] Medical Branch metFORMIN Yes 500mg Take 500 [facility] vers 500 mg 5-13 mg by ity of tablet 13:57: mouth [place] 16 daily. Medical Branch pantoprazol Yes 40mg Take 40 mg [facility] e 40 mg EC 5-13 by mouth ity o f tablet 13:57: daily. [place] [address] Medical Branch lovastatin Yes 40mg Take 40 mg U nivers 40 mg 5-13 by mouth ity of tablet 13:57: daily. [place] [address] Medical Branch mirtazapine Yes 15mg Take 15 [...] 5-13 mg by ity of 13:57: mouth. [place] [address] Indication Medical s: 2 Branch tablets BID [...] ity of 10 mg 13:57: at [place] [facility] 16 bedtime. Medical Branch HYDROcodone Yes 1{tbl} Take 1 [facility] [place] -acetaminop 5-13 tablet by ity of hen (NORCO) 13:57: mouth [place] 10-325 mg 16 every 6 Medical tablet (six) Branch hours as needed. meloxicam Yes 15mg Take 15 mg [facility] [place] 15 mg 5-13 by mouth ity of tablet 13:57: daily. [place] [address] Medical Branch metFORMIN Yes 500mg Take 500 [facility] vers 500 mg 5-13 mg by ity of tablet 13:57: mouth [place] 16 daily. Medical Branch pantoprazol 0 Yes 40mg Take 40 mg [facility] e 40 mg EC 5-13 by mouth ity o f tablet 13:57: daily. [address] Branch lovastatin 0 Yes 40mg Take 40 mg [facility] nivers 40 mg 5-13 by mouth ity of tablet 13:57: daily. [place] [address] Medical Branch mirtazapine 0 Yes 15mg Take [...] 5-13 mg by ity of 13:57: mouth. [place] [address] Indication Medical s: 2 Branch tablets BID [...] by mouth ity of tablet 13:57: daily. [place] [address] Medical Branch metFORMIN Yes 500mg Take 500 [facility] vers 500 mg 5-13 mg by ity of tablet 13:57: mouth [place] 16 daily. Medical Branch pantoprazol Yes 40mg Take 40 mg [facility] e 40 mg EC 5-13 by mouth ity o f tablet 13:57: daily. [place] [address] Medical Branch lovastatin 0 Yes 40mg Take 40 mg [facility] nivers 40 mg 5-13 by mouth ity of tablet 13:57: daily. [place] [address] Medical Branch mirtazapine 0 Yes 15mg Take [...] 5-13 mg by ity of 13:57: mouth. [place] [address] Indication Medical s: 2 Branch tablets BID [...] by mouth ity of tablet 13:57: daily. [place] [address] Medical Branch metFORMIN 0 Yes 500mg Take 500 [facility] vers 500 mg 5-13 mg by ity of tablet 13:57: mouth [place] 16 daily. Medical Branch pantoprazol 0 Yes 40mg Take 40 mg [facility] e 40 mg EC 5-13 by mouth ity o f tablet 13:57: daily. [place] [address] Medical Branch mirtazapine 0 Yes 15mg Take 15 mg [facility] 15 mg 5-13 by mouth ity of tablet 13:57: at [place] 16 bedtime. Medical Branch SITagliptin 0 Yes Take by Uni vers -metformin 5-13 mouth. ity of (JULIA 13:57: Indication [place] as XR) 16 s: 2 tabs Medical 50-1,000 mg BID Branch per tablet BUPROPION 2021-0 Yes 150mg Take 150 Uni vers HCL ORAL 5-13 mg by ity of 13:57: mouth. [place] [address] Indication Medical s: 2 Branch tablets BID cyclobenzap 0 Yes 10mg Take 10 mg [facility] rine 10 mg 5-13 by mouth 3 ity of tablet 13:57: (three) [place] 16 times Medical daily. Branch gabapentin Yes [...] by mouth ity of tablet 13:57: daily. [place] [address] Medical Branch metFORMIN Yes 500mg Take 500 [facility] vers 500 mg 5-13 mg by ity of tablet 13:57: mouth [place] 16 daily. Medical Branch pantoprazol Yes 40mg Take 40 mg [facility] e 40 mg EC 5-13 by mouth ity o f tablet 13:57: daily. [place] [address] Medical Branch mirtazapine Yes 15mg Take 15 mg [facility] 15 mg 5-13 by mouth ity of tablet 13:57: at [place] 16 bedtime. Medical Branch SITagliptin Yes Take by [facility] vers -metformin 5-13 mouth. ity of (JANUMET 13:57: Indication [place] as XR) 16 s: 2 tabs Medical 50-1,000 mg BID Branch per tablet BUPROPION Yes 150mg Take 150 Uni vers HCL ORAL 5-13 mg by ity of 13:57: mouth. [place] 16 Indication Medical s: 2 Branch tablets BID cyclobenzap Yes 10mg Take 10 mg [facility] rine 10 mg 5-13 by mouth 3 ity of tablet 13:57: (three) [place] 16 times Medical daily. Branch gabapentin Yes [...] by mouth ity of tablet 13:57: daily. [place] [address] Medical Branch metFORMIN Yes 500mg Take 500 Uni vers 500 mg 5-13 mg by ity of tablet 13:57: mouth [place] 16 daily. Medical Branch pantoprazol Yes 40mg Take 40 mg [facility] e 40 mg EC 5-13 by mouth ity o f tablet 13:57: daily. [place] [address] Medical Branch mirtazapine Yes 15mg Take 15 [...] 5-13 mg by ity of 13:57: mouth. [place] 16 Indication Medical s: 2 Branch tablets [...] by mouth ity of tablet 13:57: daily. [place] [address] Medical Branch metFORMIN 2021-0 Yes 500mg Take 500 Uni vers 500 mg 5-13 mg by ity of tablet 13:57: mouth [place] 16 daily. [facility] Branch pantoprazol 2021-0 Yes 40mg Take 40 mg [facility] e 40 mg EC 5-13 by mouth ity o f tablet 13:57: daily. [place] [address] [facility] Branch mirtazapine 2021-0 Yes 15mg Take [...] 5-13 mg by ity of 13:57: mouth. [place] 16 Indication Medical s: 2 Branch tablets [...] by mouth ity of tablet 13:57: daily. [place] [address] [facility] Branch metFORMIN 2021-0 Yes 500mg Take 500 Uni vers 500 mg 5-13 mg by ity of tablet 13:57: mouth [place] 16 daily. [facility] pantoprazol 0 Yes 40mg Take 40 mg [facility] e 40 mg EC 5-13 by mouth ity o f tablet 13:57: daily. [place] [address] [facility] Branch mirtazapine 0 Yes 15mg Take [...] 5-13 mg by ity of 13:57: mouth. [place] [address] Indication Medical s: 2 Branch tablets BID [...] by mouth ity of tablet 13:57: daily. [place] [address] [facility] Branch metFORMIN 0 Yes 500mg Take 500 Uni vers 500 mg 5-13 mg by ity of tablet 13:57: mouth [place] 16 daily. [facility] pantoprazol 0 Yes 40mg Take 40 mg [facility] e 40 mg EC 5-13 by mouth ity o f tablet 13:57: daily. [place] [address] [facility] Branch mirtazapine 0 Yes 15mg Take [...] 5-13 mg by ity of 13:57: mouth. [place] 16 Indication Medical s: 2 Branch tablets [...] by mouth ity of tablet 13:57: daily. [place] [address] [facility] Branch metFORMIN Yes 500mg Take 500 Uni vers 500 mg 5-13 mg by ity of tablet 13:57: mouth [place] 16 daily. [facility] pantoprazol 0 Yes 40mg Take 40 mg [facility] e 40 mg EC 5-13 by mouth ity o f tablet 13:57: daily. [place] [address] [facility] mirtazapine 0 Yes 15mg Take [...] 5-13 mg by ity of 13:57: mouth. [place] [address] Indication Medical s: 2 Branch tablets BID [...] by mouth ity of tablet 13:57: daily. [place] [address] [facility] Branch metFORMIN Yes 500mg Take 500 Uni vers 500 mg 5-13 mg by ity of tablet 13:57: mouth [place] 16 daily. [facility] pantoprazol Yes 40mg Take 40 mg [facility] e 40 mg EC 5-13 by mouth ity o f tablet 13:57: daily. [place] [address] [facility] mirtazapine 0 Yes 15mg Take 15 mg [facility] 15 mg 5-13 by mouth ity of tablet 13:57: at [place] 16 bedtime. Medical Branch SITagliptin Yes Take by Uni vers -metformin 5-13 mouth. ity of (JANUMET 13:57: Indication [place] as XR) 16 s: 2 tabs Medical 50-1,000 mg BID Branch per tablet BUPROPION 0 Yes 150mg Take 150 Uni vers HCL ORAL 5-13 mg by ity of 13:57: mouth. [place] [address] Indication Medical s: 2 Branch tablets BID [...] by mouth ity of tablet 13:57: daily. [place] [address] [facility] Branch metFORMIN 0 Yes 500mg Take 500 Uni vers 500 mg 5-13 mg by ity of tablet 13:57: mouth [place] 16 daily. [facility] pantoprazol 0 Yes 40mg Take 40 mg [facility] e 40 mg EC 5-13 by mouth ity o f tablet 13:57: daily. [place] [address] [facility] mirtazapine 0 Yes 15mg Take [...] 5-13 mg by ity of 13:57: mouth. [place] 16 Indication Medical s: 2 Branch tablets [...] by mouth ity of tablet 13:57: daily. [place] [address] [facility] Branch metFORMIN 0 Yes 500mg Take 500 Uni vers 500 mg 5-13 mg by ity of tablet 13:57: mouth [place] 16 daily. [facility] pantoprazol Yes 40mg Take 40 mg [facility] e 40 mg EC 5-13 by mouth ity o f tablet 13:57: daily. [place] [address] [facility] mirtazapine 0 Yes 15mg Take [...] by mouth ity of tablet 13:57: daily. [place] [address] [facility] Branch metFORMIN 0 Yes 500mg Take 500 Uni vers 500 mg 5-13 mg by ity of tablet 13:57: mouth [place] 16 daily. [facility] pantoprazol 0 Yes 40mg Take 40 mg [facility] e 40 mg EC 5-13 by mouth ity o f tablet 13:57: daily. [place] [address] [facility] mirtazapine 0 Yes 15mg Take [...] 5-13 mg by ity of 13:57: mouth. [place] 16 Indication Medical s: 2 Branch tablets [...] by mouth ity of tablet 13:57: daily. [place] [address] [facility] Branch metFORMIN 0 Yes 500mg Take 500 Uni vers 500 mg 5-13 mg by ity of tablet 13:57: mouth [place] 16 daily. [facility] pantoprazol 0 Yes 40mg Take 40 mg [facility] e 40 mg EC 5-13 by mouth ity o f tablet 13:57: daily. [place] [address] [facility] mirtazapine Yes 15mg Take 15 mg [facility] 15 mg 5-13 by mouth ity of tablet 13:57: at [place] [address] bedtime. Medical Branch SITagliptin Yes Take by Uni vers -metformin 5-13 mouth. ity of (JANUMET 13:57: Indication [place] as XR) 16 s: 2 tabs Medical 50-1,000 mg BID Branch per tablet BUPROPION Yes 150mg Take 150 Uni vers HCL ORAL 5-13 mg by ity of 13:57: mouth. [place] [address] Indication Medical s: 2 Branch tablets BID [...] ity of 10 mg 13:57: at [place] [facility] 16 bedtime. Medical Branch HYDROcodone Yes 1{tbl} Take 1 Un [place] -acetaminop 5-13 tablet by ity of hen (NORCO) 13:57: mouth [place] 10-325 mg 16 every 6 Medical tablet (six) Branch hours as needed. meloxicam Yes 15mg Take 15 mg [facility] [place] 15 mg 5-13 by mouth ity of tablet 13:57: daily. [place] [address] [facility] Branch metFORMIN Yes 500mg Take 500 Uni vers 500 mg 5-13 mg by ity of tablet 13:57: mouth [place] 16 daily. [facility] Branch pantoprazol Yes 40mg Take 40 mg [facility] e 40 mg EC 5-13 by mouth ity o f tablet 13:57: daily. [place] [address] [facility] mirtazapine Yes 15mg Take 15 mg [facility] 15 mg 5-13 by mouth ity of tablet 13:57: at [place] [address] bedtime. Medical Branch SITagliptin Yes Take by Uni vers -metformin 5-13 mouth. ity of ( 13:57: Indication [place] as XR) 16 s: 2 tabs Medical 50-1,000 mg BID Branch per tablet BUPROPION 0 Yes 150mg Take 150 Uni vers HCL ORAL 5-13 mg by ity of 13:57: mouth. [place] [address] Indication Medical s: 2 Branch tablets BID [...] mouth ity of 10 mg 13:57: at [place] tablet 16 bedtime. Medical Branch HYDROcodone Yes 1{tbl} Take 1 Un [place] -acetaminop 5-13 tablet by ity of hen (NORCO) 13:57: mouth [place] 10-325 mg 16 every 6 Medical tablet (six) Branch hours as needed. meloxicam Yes 15mg Take 15 mg [facility] [place] 15 mg 5-13 by mouth ity of tablet 13:57: daily. [place] [address] [facility] Branch metFORMIN Yes 500mg Take 500 Uni vers 500 mg 5-13 mg by ity of tablet 13:57: mouth [place] 16 daily. [facility] pantoprazol Yes 40mg Take 40 mg [facility] e 40 mg EC 5-13 by mouth ity o f tablet 13:57: daily. [place] [address] [facility] Branch mirtazapine Yes 15mg Take 15 mg [facility] 15 mg 5-13 by mouth ity of tablet 13:57: at [place] 16 bedtime. [facility] Branch SITagliptin Yes Take by Uni vers -metformin 5-13 mouth. ity of (T 13:57: Indication [place] as XR) 16 s: 2 tabs Medical 50-1,000 mg BID Branch per tablet BUPROPION 0 Yes 150mg Take 150 Uni vers HCL ORAL 5-13 mg by ity of 13:57: mouth. [place] [address] Indication Medical s: 2 Branch tablets BID [...] by mouth ity of tablet 13:57: daily. [place] [address] [facility] Branch metFORMIN 0 Yes 500mg Take 500 Uni vers 500 mg 5-13 mg by ity of tablet 13:57: mouth [place] 16 daily. [facility] Branch pantoprazol 0 Yes 40mg Take 40 mg [facility] e 40 mg EC 5-13 by mouth ity o f tablet 13:57: daily. [place] [address] [facility] Branch mirtazapine 0 Yes 15mg Take [...] by mouth ity of tablet 13:57: daily. [place] [address] [facility] Branch metFORMIN 0 Yes 500mg Take 500 Uni vers 500 mg 5-13 mg by ity of tablet 13:57: mouth [place] 16 daily. [facility] Branch pantoprazol Yes 40mg Take 40 mg [facility] e 40 mg EC 5-13 by mouth ity o f tablet 13:57: daily. [place] [address] [facility] Branch mirtazapine Yes 15mg Take 15 [...] 5-13 mg by ity of 13:57: mouth. [place] [address] Indication Medical s: 2 Branch tablets BID [...] by mouth ity of tablet 13:57: daily. [place] [address] [facility] Branch metFORMIN 2021-0 Yes 500mg Take 500 Uni vers 500 mg 5-13 mg by ity of tablet 13:57: mouth [place] 16 daily. [facility] Branch pantoprazol 0 Yes 40mg Take 40 mg [facility] e 40 mg EC 5-13 by mouth ity o f tablet 13:57: daily. [place] [address] [facility] Branch mirtazapine 0 Yes 15mg Take 15 mg [facility] 15 mg 5-13 by mouth ity of tablet 13:57: at [place] 16 bedtime. Medical Branch SITagliptin 0 Yes Take by Uni vers -metformin 5-13 mouth. ity of (JANUMET 13:57: Indication [place] as XR) 16 s: 2 tabs Medical 50-1,000 mg BID Branch per tablet BUPROPION 2021-0 Yes 150mg Take 150 Uni vers HCL ORAL 5-13 mg by ity of 13:57: mouth. [place] 16 Indication Medical s: 2 Branch tablets [...] by mouth ity of tablet 13:57: daily. [place] [address] [facility] Branch metFORMIN 2022-0 Yes 500mg Take 500 Uni vers 500 mg 5-13 mg by ity of tablet 13:57: mouth [place] 16 daily. Medical Branch pantoprazol 0 Yes 40mg Take 40 mg [facility] e 40 mg EC 5-13 by mouth ity o f tablet 13:57: daily. [place] [address] [facility] Branch mirtazapine 2021-0 Yes 15mg Take [...] by mouth ity of tablet 13:57: daily. [place] [address] [facility] Branch metFORMIN 2021-0 Yes 500mg Take 500 Uni vers 500 mg 5-13 mg by ity of tablet 13:57: mouth [place] 16 daily. Medical Branch pantoprazol 0 Yes 40mg Take 40 mg [facility] e 40 mg EC 5-13 by mouth ity o f tablet 13:57: daily. [place] [address] [facility] Branch mirtazapine 2022-0 Yes 15mg Take [...] 5-13 mg by ity of 13:57: mouth. [place] 16 Indication Medical s: 2 Branch tablets [...] by mouth ity of tablet 13:57: daily. [place] [address] [facility] Branch metFORMIN Yes 500mg Take 500 Uni vers 500 mg 5-13 mg by ity of tablet 13:57: mouth [place] 16 daily. Medical Branch pantoprazol Yes 40mg Take 40 mg [facility] e 40 mg EC 5-13 by mouth ity o f tablet 13:57: daily. [place] [address] [facility] Branch mirtazapine Yes 15mg Take 15 [...] 5-13 mg by ity of 13:57: mouth. [place] [address] Indication Medical s: 2 Branch tablets BID [...] by mouth ity of tablet 13:57: daily. [place] [address] [facility] Branch metFORMIN 0 Yes 500mg Take 500 Uni vers 500 mg 5-13 mg by ity of tablet 13:57: mouth [place] 16 daily. Medical Branch pantoprazol 0 Yes 40mg Take 40 mg [facility] e 40 mg EC 5-13 by mouth ity o f tablet 13:57: daily. [place] [address] [facility] Branch mirtazapine 0 Yes 15mg Take [...] 5-13 mg by ity of 13:57: mouth. [place] [address] Indication Medical s: 2 Branch tablets BID [...] by mouth ity of tablet 13:57: daily. [place] [address] [facility] Branch metFORMIN 0 Yes 500mg Take 500 Uni vers 500 mg 5-13 mg by ity of tablet 13:57: mouth [place] 16 daily. Medical Branch pantoprazol 0 Yes 40mg Take 40 mg [facility] e 40 mg EC 5-13 by mouth ity o f tablet 13:57: daily. [place] [address] [facility] Branch mirtazapine 0 Yes 15mg Take 15 mg [facility] 15 mg 5-13 by mouth ity of tablet 13:57: at [place] 16 bedtime. Medical Branch SITagliptin 0 Yes Take by Uni vers -metformin 5-13 mouth. ity of (JANUMET 13:57: Indication [place] as XR) 16 s: 2 tabs Medical 50-1,000 mg BID Branch per tablet BUPROPION 2021-0 Yes 150mg Take 150 Uni vers HCL ORAL 5-13 mg by ity of 13:57: mouth. [place] [address] Indication Medical s: 2 Branch tablets BID [...] by mouth ity of tablet 13:57: daily. [place] [address] [facility] Branch metFORMIN 0 Yes 500mg Take 500 Uni vers 500 mg 5-13 mg by ity of tablet 13:57: mouth [place] 16 daily. Medical Branch pantoprazol 0 Yes 40mg Take 40 mg [facility] e 40 mg EC 5-13 by mouth ity o f tablet 13:57: daily. [place] [address] [facility] Branch mirtazapine 0 Yes 15mg Take [...] by mouth ity of tablet 13:57: daily. [place] [address] [facility] Branch metFORMIN 0 Yes 500mg Take 500 Uni vers 500 mg 5-13 mg by ity of tablet 13:57: mouth [place] 16 daily. [facility] Branch pantoprazol 0 Yes 40mg Take 40 mg [facility] e 40 mg EC 5-13 by mouth ity o f tablet 13:57: daily. [place] [address] [facility] Branch mirtazapine 0 Yes 15mg Take [...] 0 Yes 15mg Take 15 mg Un [place] 15 mg 5-13 by mouth ity of tablet 13:57: daily. [place] [address] [facility] Branch metFORMIN 0 Yes 500mg Take 500 Uni vers 500 mg 5-13 mg by ity of tablet 13:57: mouth [place] 16 daily. Medical Branch pantoprazol Yes 40mg Take 40 mg [facility] e 40 mg EC 5-13 by mouth ity o f tablet 13:57: daily. [place] [address] [facility] Branch mirtazapine Yes 15mg Take 15 [...] 5-13 mg by ity of 13:57: mouth. [place] [address] Indication Medical s: 2 Branch tablets BID gabapentin Yes 800mg Take 800 Un [place] (NEURONTIN) 5-13 mg by ity of 300 mg 13:57: mouth 3 [place] capsule 16 (three) Medical times Branch daily. atorvastati Yes 10mg Take 10 mg Univers n (LIPITOR) 5-13 by mouth ity of 10 mg 13:57: at [place] [facility] 16 bedtime. Medical Branch HYDROcodone Yes 1{tbl} Take 1 Un [place] -acetaminop 5-13 tablet by ity of hen (NORCO) 13:57: mouth [place] 10-325 mg 16 every 6 Medical tablet (six) Branch hours as needed. meloxicam Yes 15mg Take 15 mg Un [place] 15 mg 5-13 by mouth ity of tablet 13:57: daily. [place] [address] Medical Branch metFORMIN Yes 500mg Take 500 Uni vers 500 mg 5-13 mg by ity of tablet 13:57: mouth [place] 16 daily. Medical Branch pantoprazol Yes 40mg Take 40 mg Univers e 40 mg EC 5-13 by mouth ity o f tablet 13:57: daily. [place] [address] [facility] Branch mirtazapine Yes 15mg Take 15 mg Univers 15 mg 5-13 by mouth ity of tablet 13:57: at [place] 16 bedtime. Medical Branch SITagliptin Yes Take by Uni vers -metformin 5-13 mouth. ity of (JUNUMET 13:57: Indication [place] as XR) 16 s: 2 tabs Medical 50-1,000 mg BID Branch per tablet BUPROPION Yes 150mg Take 150 Uni vers HCL ORAL 5-13 mg by ity of 13:57: mouth. [place] [address] Indication Medical s: 2 Branch tablets BID [...] by mouth ity of tablet 13:57: daily. [place] [address] Medical Branch metFORMIN Yes 500mg Take 500 Uni vers 500 mg 5-13 mg by ity of tablet 13:57: mouth [place] 16 daily. Medical Branch pantoprazol Yes 40mg Take 40 mg [facility] e 40 mg EC 5-13 by mouth ity o f tablet 13:57: daily. [place] [address] Medical Branch mirtazapine Yes 15mg Take 15 [...] 5-13 mg by ity of 13:57: mouth. [place] [address] Indication Medical s: 2 Branch tablets BID [...] by mouth ity of tablet 13:57: daily. [place] [address] Medical Branch metFORMIN 0 Yes 500mg Take 500 Uni vers 500 mg 5-13 mg by ity of tablet 13:57: mouth [place] 16 daily. Medical Branch pantoprazol 0 Yes 40mg Take 40 mg [facility] e 40 mg EC 5-13 by mouth ity o f tablet 13:57: daily. [place] [address] [facility] Branch mirtazapine 0 Yes 15mg Take [...] 5-13 mg by ity of 13:57: mouth. [place] [address] Indication Medical s: 2 Branch tablets BID [...] by mouth ity of tablet 13:57: daily. [place] [address] Medical Branch metFORMIN 0 Yes 500mg Take 500 Uni vers 500 mg 5-13 mg by ity of tablet 13:57: mouth [place] 16 daily. Medical Branch pantoprazol Yes 40mg Take 40 mg [facility] e 40 mg EC 5-13 by mouth ity o f tablet 13:57: daily. [place] [address] Medical Branch mirtazapine 0 Yes 15mg Take 15 mg [facility] 15 mg 5-13 by mouth ity of tablet 13:57: at [place] 16 bedtime. Medical Branch SITagliptin Yes Take [...] ity of 10 mg 13:57: at [place] [facility] 16 bedtime. Medical Branch HYDROcodone Yes 1{tbl} Take 1 Un [place] -acetaminop 5-13 tablet by ity of hen (NORCO) 13:57: mouth [place] 10-325 mg 16 every 6 Medical tablet (six) Branch hours as needed. meloxicam Yes 15mg Take 15 mg Un [place] 15 mg 5-13 by mouth ity of tablet 13:57: daily. [place] [address] Medical Branch metFORMIN Yes 500mg Take 500 Uni vers 500 mg 5-13 mg by ity of tablet 13:57: mouth [place] 16 daily. Medical Branch pantoprazol Yes 40mg Take 40 mg Univers e 40 mg EC 5-13 by mouth ity o f tablet 13:57: daily. [place] [address] Medical Branch mirtazapine 0 Yes 15mg Take 15 mg Univers 15 mg 5-13 by mouth ity of tablet 13:57: at [place] 16 bedtime. Medical Branch SITagliptin Yes Take by Uni vers -metformin 5-13 mouth. ity of (JUNUMET 13:57: Indication [place] as XR) 16 s: 2 tabs Medical 50-1,000 mg BID Branch per tablet BUPROPION Yes 150mg Take 150 Uni vers HCL ORAL 5-13 mg by ity of 13:57: mouth. [place] [address] Indication Medical s: 2 Branch tablets BID gabapentin Yes 800mg Take 800 Un [place] (NEURONTIN) 5-13 mg by ity of 300 mg 13:57: mouth 3 [place] capsule 16 (three) Medical times Branch daily. atorvastati Yes 10mg Take 10 mg Univers n (LIPITOR) 5-13 by mouth ity of 10 mg 13:57: at [place] [facility] 16 bedtime. Medical Branch HYDROcodone Yes 1{tbl} Take 1 Un [place] -acetaminop 5-13 tablet by ity of hen (NORCO) 13:57: mouth [place] 10-325 mg 16 every 6 Medical tablet (six) Branch hours as needed. meloxicam Yes 15mg Take 15 mg Un [place] 15 mg 5-13 by mouth ity of tablet 13:57: daily. [place] [address] Medical Branch metFORMIN Yes 500mg Take 500 Uni vers 500 mg 5-13 mg by ity of tablet 13:57: mouth [place] 16 daily. Medical Branch pantoprazol Yes 40mg Take 40 mg Univers e 40 mg EC 5-13 by mouth ity o f tablet 13:57: daily. [place] [address] Medical Branch mirtazapine Yes 15mg Take 15 mg Univers 15 mg 5-13 by mouth ity of tablet 13:57: at [place] [address] bedtime. Medical Branch SITagliptin Yes Take by Uni vers -metformin 5-13 mouth. ity of (JUNUMET 13:57: Indication [place] as XR) 16 s: 2 tabs Medical 50-1,000 mg BID Branch per tablet BUPROPION Yes 150mg Take 150 Uni vers HCL ORAL 5-13 mg by ity of 13:57: mouth. [place] [address] Indication Medical s: 2 Branch tablets BID Tamsulosin Tamsulosin 2021- No 1{capsu QD Tamsulosin HCl 0.4 MG HCl 0.4 MG -04-11 le} HCl 0.4 MG 00:00: 00:00 00 :00 Tamsulosin Tamsulosin 2-0 2022- No 1{capsu QD Tamsulosin HCl 0.4 MG [...] Universit y of Vaccine Quad IM, 00:00:00 [place] [facility] Preserv and ABX Branch Free 6 MO-64 YRS Influenza Virus 2022-07-28 Completed [facility]it y of Vaccine Quad IM, 00:00:00 [place] [facility] Preserv and ABX Branch Free 6 MO-64 YRS Influenza Virus 2022-07-28 Completed Universit y of Vaccine Quad IM, 00:00:00 [place] [facility] Preserv and ABX Branch Free 6 MO-64 YRS Influenza Virus 2022-07-28 Completed Universit y of Vaccine Quad IM, 00:00:00 [place] [facility] Preserv and ABX Branch Free 6 MO-64 YRS Influenza Virus 2022-07-28 Completed Universit y of Vaccine Quad IM, 00:00:00 [place] [facility] Preserv and ABX Branch Free 6 MO-64 YRS Influenza Virus 2022-07-28 Completed Universit y of Vaccine Quad IM, 00:00:00 [place] [facility] Preserv and ABX Branch Free 6 MO-64 YRS Influenza Virus 2022-07-28 Completed Universit y of Vaccine Quad IM, 00:00:00 [place] [facility] Preserv and ABX Branch Free 6 MO-64 YRS Influenza Virus 2022-07-28 Completed Universit y of Vaccine Quad IM, 00:00:00 [place] [facility] Preserv and ABX Branch Free 6 MO-64 YRS Influenza Virus 2022-07-28 Completed Universit y of Vaccine Quad IM, 00:00:00 [place] [facility] Preserv and ABX Branch Free 6 MO-64 YRS Influenza Virus 2022-07-28 Completed Universit y of Vaccine Quad IM, 00:00:00 [place] [facility] Preserv and ABX Branch Free 6 MO-64 YRS Influenza Virus 2022-07-28 Completed Universit y of Vaccine Quad IM, 00:00:00 [place] [facility] Preserv and ABX Branch Free 6 MO-64 YRS Influenza Virus 2022-07-28 Completed Universit y of Vaccine Quad IM, 00:00:00 [place] [facility] Preserv and ABX Branch Free [...] Unive rsity of VACCINE - (MODERNA) 00:00:00 [facility] SARS-COV-2 COVID-19 2021-06-04 Completed Unive rsity of VACCINE - (MODERNA) 00:00:00 [facility] SARS-COV-2 COVID-19 2021-06-04 Completed Unive rsity of VACCINE - (MODERNA) 00:00:00 [facility] SARS-COV-2 COVID-19 2021-06-04 Completed Unive rsity of VACCINE - (MODERNA) 00:00:00 [facility] SARS-COV-2 COVID-19 2021-06-04 Completed Unive rsity of VACCINE - (MODERNA) 00:00:00 [facility] SARS-COV-2 COVID-19 2021-06-04 Completed Unive rsity of VACCINE - (MODERNA) 00:00:00 [facility] SARS-COV-2 COVID-19 2021-06-04 Completed Unive rsity of VACCINE - (MODERNA) 00:00:00 [facility] SARS-COV-2 COVID-19 2021-06-04 Completed Unive rsity of VACCINE - (MODERNA) 00:00:00 [facility] SARS-COV-2 COVID-19 2021-06-04 Completed Unive rsity of VACCINE - (MODERNA) 00:00:00 [facility] SARS-COV-2 COVID-19 2021-06-04 Completed Unive rsity of VACCINE - (MODERNA) 00:00:00 [facility] SARS-COV-2 COVID-19 2021-06-04 Completed Unive rsity of VACCINE - (MODERNA) 00:00:00 [facility] SARS-COV-2 COVID-19 2021-06-04 Completed Unive rsity of VACCINE - (MODERNA) 00:00:00 [facility] SARS-COV-2 COVID-19 2021-06-04 Completed Unive rsity of VACCINE - (MODERNA) 00:00:00 [facility] SARS-COV-2 COVID-19 2021-06-04 Completed Unive rsity of VACCINE - (MODERNA) 00:00:00 [facility] SARS-COV-2 COVID-19 2021-06-04 Completed Unive rsity of VACCINE - (MODERNA) 00:00:00 [facility] SARS-COV-2 COVID-19 2021-06-04 Completed Unive rsity of VACCINE - (MODERNA) 00:00:00 [facility] SARS-COV-2 COVID-19 2021-06-04 Completed Unive rsity of VACCINE - (MODERNA) 00:00:00 [facility] SARS-COV-2 COVID-19 2021-06-04 Completed Unive rsity of VACCINE - (MODERNA) 00:00:00 [facility] SARS-COV-2 COVID-19 2021-06-04 Completed Unive rsity of VACCINE - (MODERNA) 00:00:00 [facility] SARS-COV-2 COVID-19 2021-06-04 Completed Unive rsity of VACCINE - (MODERNA) 00:00:00 [facility] SARS-COV-2 COVID-19 2021-06-04 Completed Unive rsity of VACCINE - (MODERNA) 00:00:00 [facility] SARS-COV-2 COVID-19 2021-06-04 Completed Unive rsity of VACCINE - (MODERNA) 00:00:00 [facility] SARS-COV-2 COVID-19 2021-06-04 Completed Unive rsity of VACCINE - (MODERNA) 00:00:00 [facility] SARS-COV-2 COVID-19 2021-06-04 Completed Unive rsity of VACCINE - (MODERNA) 00:00:00 [facility] SARS-COV-2 COVID-19 2021-06-04 Completed Unive rsity of VACCINE - (MODERNA) 00:00:00 [facility] SARS-COV-2 COVID-19 2021-06-04 Completed Unive rsity of VACCINE - (MODERNA) 00:00:00 [facility] SARS-COV-2 COVID-19 2021-06-04 Completed Unive rsity of VACCINE - (MODERNA) 00:00:00 [facility] SARS-COV-2 COVID-19 2021-06-04 Completed Unive rsity of VACCINE - (MODERNA) 00:00:00 [facility] SARS-COV-2 COVID-19 2021-06-04 Completed Unive rsity of VACCINE - (MODERNA) 00:00:00 [facility] SARS-COV-2 COVID-19 2021-06-04 Completed Unive rsity of VACCINE - (MODERNA) 00:00:00 [facility] SARS-COV-2 COVID-19 2021-06-04 Completed Unive rsity of VACCINE - (MODERNA) 00:00:00 [facility] SARS-COV-2 COVID-19 2021-06-04 Completed Unive rsity of VACCINE - (MODERNA) 00:00:00 [facility] SARS-COV-2 COVID-19 2021-06-04 Completed Unive rsity of VACCINE - (MODERNA) 00:00:00 [facility] SARS-COV-2 COVID-19 2021-06-04 Completed Unive rsity of VACCINE - (MODERNA) 00:00:00 [facility] SARS-COV-2 COVID-19 2021-06-04 Completed Unive rsity of VACCINE - (MODERNA) 00:00:00 [facility] SARS-COV-2 COVID-19 2021-06-04 Completed Unive rsity of VACCINE - (MODERNA) 00:00:00 [facility] SARS-COV-2 COVID-19 2021-06-04 Completed Unive rsity of VACCINE - (MODERNA) 00:00:00 [facility] SARS-COV-2 COVID-19 2021-06-04 Completed Unive rsity of VACCINE - (MODERNA) 00:00:00 [facility] Influenza Virus Unknown Completed [facility] of Vaccine Quad IM, [place] [facility] Preserv and ABX Branch Free 6 MO-64 YRS (FLUCELVAX) SARS-COV-2 COVID-19 Unknown Completed Unive rsity of VACCINE - (MODERNA) [facility] Influenza Virus Unknown Completed [facility]it y of Vaccine Quad IM, [place] [facility] Preserv and ABX Branch Free 6 MO-64 YRS (FLUCELVAX) SARS-COV-2 COVID-19 Unknown Completed Unive rsity of VACCINE - (MODERNA) [facility] Influenza Virus Unknown Completed Universit y of Vaccine Quad IM, [facility] dical Preserv and ABX Branch Free 6 MO-64 YRS (FLUCELVAX) SARS-COV-2 COVID-19 Unknown Completed Unive rsity of VACCINE - (MODERNA) [facility] Influenza Virus Unknown Completed Universit y of Vaccine Quad IM, [facility] dical Preserv and ABX Branch Free 6 MO-64 YRS (FLUCELVAX) SARS-COV-2 COVID-19 Unknown Completed Unive rsity of VACCINE - (MODERNA) [facility] Influenza Virus Unknown Completed [facility]it y of Vaccine Quad IM, [place] [facility] Preserv and ABX Branch Free 6 MO-64 YRS (FLUCELVAX) SARS-COV-2 COVID-19 Unknown Completed Unive rsity of VACCINE - (MODERNA) [facility] Influenza Virus Unknown Completed [facility]it y of Vaccine Quad IM, [place] Me dical Preserv and ABX Branch Free 6 MO-64 YRS (FLUCELVAX) SARS-COV-2 COVID-19 Unknown Completed Unive rsity of VACCINE - (MODERNA) [facility] Influenza Virus Unknown Completed Universit y of Vaccine Quad IM, [facility] dical Preserv and ABX Branch Free 6 MO-64 YRS (FLUCELVAX) SARS-COV-2 COVID-19 Unknown Completed Unive rsity of VACCINE - (MODERNA) [facility] Influenza Virus Unknown Completed Universit y of Vaccine Quad IM, [place] [facility]ical Preserv and ABX Branch Free 6 MO-64 YRS (FLUCELVAX) SARS-COV-2 COVID-19 Unknown Completed Unive rsity of VACCINE - (MODERNA) [facility] Influenza Virus Unknown Completed Universit y of Vaccine Quad IM, [place] [facility] dical Preserv and ABX Branch Free 6 MO-64 YRS (FLUCELVAX) SARS-COV-2 COVID-19 Unknown Completed Unive rsity of VACCINE - (MODERNA) [facility] Influenza Virus Unknown Completed Universit y of Vaccine Quad IM, [place] [facility] dical Preserv and ABX Branch Free 6 MO-64 YRS (FLUCELVAX) SARS-COV-2 COVID-19 Unknown Completed Unive rsity of VACCINE - (MODERNA) [facility] Influenza Virus Unknown Completed Universit y of Vaccine Quad IM, [place] [facility] dical Preserv and ABX Branch Free 6 MO-64 YRS (FLUCELVAX) SARS-COV-2 COVID-19 Unknown Completed Unive rsity of VACCINE - (MODERNA) [facility] Influenza Virus Unknown Completed Universit y of Vaccine Quad IM, [facility] dical Preserv and ABX Branch Free 6 MO-64 YRS (FLUCELVAX) SARS-COV-2 COVID-19 Unknown Completed Unive rsity of VACCINE - (MODERNA) [facility] Influenza Virus Unknown Completed Universit y of Vaccine Quad IM, [facility] dical Preserv and ABX Branch Free 6 MO-64 YRS (FLUCELVAX) SARS-COV-2 COVID-19 Unknown Completed Unive rsity of VACCINE - (MODERNA) [facility] Influenza Virus Unknown Completed Universit y of Vaccine Quad IM, [place] [facility] dical Preserv and ABX Branch Free 6 MO-64 YRS (FLUCELVAX) SARS-COV-2 COVID-19 Unknown Completed Unive rsity of VACCINE - (MODERNA) [facility] Influenza Virus Unknown Completed Universit y of Vaccine Quad IM, [place] Me dical Preserv and ABX Branch Free 6 MO-64 YRS (FLUCELVAX) SARS-COV-2 COVID-19 Unknown Completed Unive rsity of VACCINE - (MODERNA) [facility] Influenza Virus Unknown Completed Universit y of Vaccine Quad IM, [place] Me dical Preserv and ABX Branch Free 6 MO-64 YRS (FLUCELVAX) SARS-COV-2 COVID-19 Unknown Completed Unive rsity of VACCINE - (MODERNA) [facility] Influenza Virus Unknown Completed Universit y of Vaccine Quad IM, [place] Me dical Preserv and ABX Branch Free 6 MO-64 YRS (FLUCELVAX) SARS-COV-2 COVID-19 Unknown Completed Unive rsity of VACCINE - (MODERNA) [facility] Influenza Virus Unknown Completed Universit y of Vaccine Quad IM, [place] [facility] dical Preserv and ABX Branch Free 6 MO-64 YRS (FLUCELVAX) SARS-COV-2 COVID-19 Unknown Completed Unive rsity of VACCINE - (MODERNA) [facility] Influenza Virus Unknown Completed Universit y of Vaccine Quad IM, [facility] dical Preserv and ABX Branch Free 6 MO-64 YRS (FLUCELVAX) SARS-COV-2 COVID-19 Unknown Completed Unive rsity of VACCINE - (MODERNA) [facility] Influenza Virus Unknown Completed Universit y of Vaccine Quad IM, [place] Me dical Preserv and ABX Branch Free 6 MO-64 YRS (FLUCELVAX) SARS-COV-2 COVID-19 Unknown Completed Unive rsity of VACCINE - (MODERNA) [facility] Influenza Virus Unknown Completed Universit y of Vaccine Quad IM, [facility] dical Preserv and ABX Branch Free 6 MO-64 YRS (FLUCELVAX) SARS-COV-2 COVID-19 Unknown Completed Unive rsity of VACCINE - (MODERNA) [facility] Influenza Virus Unknown Completed Universit y of Vaccine Quad IM, [facility] dical Preserv and ABX Branch Free 6 MO-64 YRS (FLUCELVAX) SARS-COV-2 COVID-19 Unknown Completed Unive rsity of VACCINE - (MODERNA) [facility] Influenza Virus Unknown Completed Universit y of Vaccine Quad IM, [place] Me dical Preserv and ABX Branch Free 6 MO-64 YRS (FLUCELVAX) SARS-COV-2 COVID-19 Unknown Completed Unive rsity of VACCINE - (MODERNA) [facility] Influenza Virus Unknown Completed Universit y of Vaccine Quad IM, [facility] dical Preserv and ABX Branch Free 6 MO-64 YRS (FLUCELVAX) SARS-COV-2 COVID-19 Unknown Completed Unive rsity of VACCINE - (MODERNA) [facility] Influenza Virus Unknown Completed Universit y of Vaccine Quad IM, [place] Me dical Preserv and ABX Branch Free 6 MO-64 YRS (FLUCELVAX) SARS-COV-2 COVID-19 Unknown Completed Unive rsity of VACCINE - (MODERNA) [facility] Vital Signs Vital Name Observation Time Observation Value Comments Source Systolic blood 2023-03-31 20:43:00 124 mm[Hg] Univer sity of pressure [facility] Diastolic blood 2023-03-31 20:43:00 80 mm[Hg] Unive rsity of pressure [facility] Heart rate 2023-03-31 20:43:00 91 /min Universi ty of [facility] Body temperature 2023-03-31 20:43:00 37.11 Sarah Univ ersity of [facility] Body height 2023-03-31 20:43:00 154.9 cm Universi ty of [facility] Body weight 2023-03-31 20:43:00 77.565 kg Universi ty of [facility] BMI 2023-03-31 20:43:00 32.31 kg/m2 Universi ty of [facility] Systolic blood 2023-03-03 15:47:00 109 mm[Hg] Univer sity of [facility] Diastolic blood 2023-03-03 15:47:00 70 mm[Hg] Unive rsity of [facility] Heart rate 2023-03-03 15:47:00 79 /min Universi ty of [facility] Body height 2023-03-03 15:47:00 177.8 cm Universi ty of [facility] Body weight 2023-03-03 15:47:00 77.111 kg Universi ty of [facility] BMI 2023-03-03 15:47:00 24.39 kg/m2 Universi ty of [facility] Oxygen saturation in 2023-03-03 15:47:00 98 /min [facility] Arterial blood by [facility] Pulse oximetry Branch Systolic blood 2023-02-04 20:24:00 103 mm[Hg] Univer sity of [facility] Diastolic blood 2023-02-04 20:24:00 72 mm[Hg] Unive rsity of pressure [facility] Heart rate 2023-02-04 20:24:00 82 /min Universi ty of [facility] Body temperature 2023-02-04 20:24:00 37.44 Sarah Univ ersity of [place] [facility] Systolic blood 2023-01-04 16:50:00 99 mm[Hg] Univer sity of pressure [facility] Diastolic blood 2023-01-04 16:50:00 63 mm[Hg] Unive rsity of pressure [facility] Heart rate 2023-01-04 16:50:00 75 /min Universi ty of [place] [facility] Respiratory rate 2023-01-04 16:50:00 18 /min Univ ersity of [facility] Body height 2023-01-04 16:50:00 154.9 cm Universi ty of [place] [facility] Body weight 2023-01-04 16:50:00 78.699 kg [facility]i ty of [place] [facility] BMI 2023-01-04 16:50:00 32.78 kg/m2 [facility]i ty of [place] [facility] Oxygen saturation in 2023-01-04 16:50:00 97 /min University of Arterial blood by [place] [facility]endra Pulse oximetry Branch Systolic blood 2022-12-23 16:56:00 106 mm[Hg] Univer sity of pressure [facility] Diastolic blood 2022-12-23 16:56:00 83 mm[Hg] Unive rsity of pressure [facility] Heart rate 2022-12-23 16:56:00 79 /min Universi ty of [facility] Body temperature 2022-12-23 16:56:00 36.39 Sarah Univ ersity of [facility] Body height 2022-12-23 16:56:00 154.9 cm Universi ty of [facility] Body weight 2022-12-23 16:56:00 81.647 kg [facility]i ty of [place] [facility] BMI 2022-12-23 16:56:00 34.01 kg/m2 [facility] ty of [facility] Oxygen saturation in 2022-12-23 16:56:00 97 /min University of Arterial blood by [employer] Pulse oximetry Branch Systolic blood 2022-12-12 15:15:00 121 mm[Hg] Univer sity of pressure [facility] Diastolic blood 2022-12-12 15:15:00 72 mm[Hg] Unive rsity of pressure [facility] Heart rate 2022-12-12 15:15:00 79 /min [facility]i ty [facility] Body temperature 2022-12-12 15:15:00 36.56 Sarah Univ ersity of [facility] Respiratory rate 2022-12-12 15:15:00 16 /min Univ ersity of [place] [facility] Body height 2022-12-12 15:15:00 154.9 cm Universi ty of [place] [facility] Body weight 2022-12-12 15:15:00 81.33 kg [facility]i ty [facility] [place] [facility] BMI 2022-12-12 15:15:00 33.88 kg/m2 Universi ty of [facility] Oxygen saturation in 2022-12-12 15:15:00 97 /min University of Arterial blood by [facility] Pulse oximetry Branch Systolic blood 2022-12-09 19:13:00 117 mm[Hg] Univer sity of pressure [facility] Diastolic blood 2022-12-09 19:13:00 77 mm[Hg] Unive rsity of pressure [facility] Heart rate 2022-12-09 19:13:00 84 /min [facility]i ty [facility] [place] [facility] Body temperature 2022-12-09 19:13:00 36.61 Sarah Univ ersity of [facility] Body weight 2022-12-09 19:13:00 79.833 kg [facility]i ty of [place] [facility] BMI 2022-12-09 19:13:00 33.25 kg/m2 [facility] ty [facility] [place] [facility] Systolic blood 2022-09-28 16:07:00 149 mm[Hg] Univer sity of pressure [facility] Diastolic blood 2022-09-28 16:07:00 83 mm[Hg] Unive rsity of pressure [facility] Heart rate 2022-09-28 16:07:00 84 /min Universi ty of [place] [facility] Body height 2022-09-28 16:07:00 154.9 cm [facility]i ty [facility] [place] [facility] Body weight 2022-09-28 16:07:00 80.015 kg [facility] [place] [facility] BMI 2022-09-28 16:07:00 33.33 kg/m2 [facility] [place] [facility] Systolic blood 2022-09-16 16:04:00 118 mm[Hg] Univer sity of pressure [place] [facility] Diastolic blood 2022-09-16 16:04:00 72 mm[Hg] Unive rsity of pressure [place] [facility] Heart rate 2022-09-16 16:04:00 62 /min Universi ty of [place] [facility] Body temperature 2022-09-16 16:04:00 36.28 Sarah Univ ers[facility] of [place] [facility] Respiratory rate 2022-09-16 16:04:00 18 /min Univ ersity of [place] [facility] Body weight 2022-09-16 16:04:00 79.243 kg [facility] ty [facility] [place] [facility] BMI 2022-09-16 16:04:00 33.01 kg/m2 Universi ty of [place] [facility] Oxygen saturation in 2022-09-16 16:04:00 98 /min University of Arterial blood by [place] rajednra Pulse oximetry Branch Systolic blood 2022-07-28 21:58:00 115 mm[Hg] Univer sity of pressure [place] [facility] Diastolic blood 2022-07-28 21:58:00 75 mm[Hg] Unive rsity of pressure [facility] Heart rate 2022-07-28 21:58:00 58 /min Universi ty of [place] [facility] Body height 2022-07-28 21:58:00 154.9 cm [facility] ty [facility] [place] [facility] Body weight 2022-07-28 21:58:00 76.204 kg [facility] BMI 2022-07-28 21:58:00 31.74 kg/m2 [facility] ty [facility] [place] [facility] Systolic blood 2022-07-11 03:13:00 119 mm[Hg] Univer sity of pressure [place] [facility] Diastolic blood 2022-07-11 03:13:00 74 mm[Hg] Unive rsity of pressure [place] [facility] Heart rate 2022-07-11 03:13:00 69 /min Universi ty of [place] [facility] Respiratory rate 2022-07-11 03:13:00 19 /min Univ ersity of [place] [facility] Oxygen saturation in 2022-07-11 03:13:00 100 /min University of Arterial blood by [place] [facility]endra Pulse oximetry Branch Body temperature 2022-07-10 21:42:00 36.5 Sarah Univ ers[facility] of [place] [facility] Body height 2022-07-10 21:42:00 154.9 cm [facility]i ty [facility] [place] [facility] Body weight 2022-07-10 21:42:00 73.483 kg Universi ty of [facility] BMI 2022-07-10 21:42:00 30.61 kg/m2 Universi ty of [facility] Systolic blood 2022-07-10 20:16:00 123 mm[Hg] Univer sity of pressure [facility] Diastolic blood 2022-07-10 20:16:00 81 mm[Hg] Unive rsity of [facility] Heart rate 2022-07-10 20:16:00 62 /min Universi ty of [facility] Body temperature 2022-07-10 20:16:00 36.44 Sarah [facility] ersity of [facility] Respiratory rate 2022-07-10 20:16:00 17 /min [facility] ersity of [facility] Body weight 2022-07-10 20:16:00 73.511 kg Universi ty of [facility] BMI 2022-07-10 20:16:00 30.62 kg/m2 Universi ty [facility] Oxygen saturation in 2022-07-10 20:16:00 100 /min [facility] Arterial blood by [facility] Pulse oximetry Branch Systolic blood 2022-06-18 20:33:00 101 mm[Hg] Univer sity of [facility] Diastolic blood 2022-06-18 20:33:00 67 mm[Hg] Unive rsity of [facility] Heart rate 2022-06-18 20:33:00 88 /min Universi ty [facility] Body temperature 2022-06-18 20:33:00 37.06 Sarah [facility] 2022-03-25 10:00:00 61 [in_i] [facility] weight 2022-03-25 10:00:00 172 [lb_av] [facility] temperature 2022-03-25 10:00:00 98.1 [degF] [facility] bmi 2022-03-25 10:00:00 32.5 kg/m2 [facility] oximetry 2022-03-25 10:00:00 96 % [facility] respiratory rate 2022-03-25 10:00:00 16 /min [facility] blood pressure 2022-03-25 10:00:00 123 mm[Hg] [facility] - systolic [facility] blood pressure 2022-03-25 10:00:00 73 mm[Hg] [facility] - diastolic [facility] Systolic blood 2022-03-23 19:32:00 98 mm[Hg] Univer sity of pressure [facility] Diastolic blood 2022-03-23 19:32:00 63 mm[Hg] Unive rsity of pressure [facility] Heart rate 2022-03-23 19:32:00 78 /min Universi ty of [facility] Body weight 2022-03-23 19:32:00 80.423 kg Universi ty of [facility] BMI 2022-03-23 19:32:00 33.50 kg/m2 Universi ty of [facility] Oxygen saturation in 2022-03-23 19:32:00 95 /min University of Arterial blood by [facility] Pulse oximetry Branch Systolic blood 2022-03-11 21:08:00 111 mm[Hg] Univer sity of pressure [facility] Diastolic blood 2022-03-11 21:08:00 74 mm[Hg] Unive rsity of pressure [facility] Heart rate 2022-03-11 21:08:00 84 /min Universi ty of [facility] Body height 2022-03-11 21:08:00 154.9 cm Universi ty of [facility] Body weight 2022-03-11 21:08:00 77.111 kg Universi ty of [facility] BMI 2022-03-11 21:08:00 32.12 kg/m2 [facility]i ty of [facility] Systolic blood 2022-01-26 18:50:00 100 mm[Hg] Univer sity of pressure [facility] Diastolic blood 2022-01-26 18:50:00 66 mm[Hg] Unive rsity of pressure [facility] Heart rate 2022-01-26 18:49:00 91 /min Universi ty of [facility] Body height 2022-01-26 18:49:00 154.9 cm Universi ty of [facility] Body weight 2022-01-26 18:49:00 76.658 kg [facility] ty [facility] BMI 2022-01-26 18:49:00 31.93 kg/m2 Universi ty [facility] Oxygen saturation in 2022-01-26 18:49:00 97 /min [facility] Arterial blood by [facility] Pulse oximetry Branch Procedures Procedure Date / Time Performing Clinician Source Performed RADIOLOGY DOCUMENTATION 2023-04-26 06:01:00 Doctor Unassigned, U [facility] Name [facility] XR SHOULDER <2 VW LEFT 2023-03-31 21:31:38 [facility] DME/SUPPLY JUSTIFICATION 2023-03-03 05:01:00 Doctor Unassigned, [facility] Loiza [facility] MEDICAL RELEASE/CLEARANCE 2023-01-21 05:01:00 Doctor Unassigned, [facility] FORMS Loiza [facility] MEDICATION CORRESPONDENCE 2023-01-11 05:01:00 Doctor Ignacio, [facility] Name [facility] HEPATITIS B SURFACE 2022-12-23 17:54:00 Sarah Stewart [facility] ANTIGEN [facility] HEPATITIS A VIRUS 2022-12-23 17:54:00 Sarah Stewart [facility] ANTIBODY IGM [facility] HEPATITIS C VIRUS (HCV) 2022-12-23 17:54:00 Sarah Stewart [facility] BY QUANTITATIVE NAAT [facility] HIV 1/2 AG-AB WITH REFLEX 2022-12-23 17:54:00 Sarah Stewart [facility] COMP. METABOLIC PANEL 2022-12-23 17:54:00 Sarah Stewart [facility] ([id number]) [facility] SEDIMENTATION RATE 2022-12-23 17:52:00 Sarah Stewart [facility] CBC WITH DIFF 2022-12-23 17:52:00 Sarah Stewart [facility] GLYCOSYLATED HEMOGLOBIN 2022-12-23 17:52:00 Sarah Stewart [facility] (A1C) [facility] RHEUMATOID FACTOR 2022-12-23 17:50:00 Sarah [facility] ANTI-NUCLEAR ANTIBODY 2022-12-23 17:50:00 Sarah Stewart Unive [facility] SCREEN [facility] INSURANCE CORRESPONDENCE 2022-10-13 05:01:00 Doctor Unassigned, [facility] SLEEP STUDY DATA REPORT 2022-09-28 05:01:00 [facility] 2022-09-21 05:01:00 Doctor Unassigned, [facility] CT HEAD WO CONTRAST 2022-08-03 17:12:07 [facility] OF BENEFITS 2022-08-03 16:44:43 [facility], [facility] FLU VACC ([id number]), 6 2022-07-28 21:56:02 Sherif Leessica [facility] MO-64 YRS, .5ML, IM, QUAD Medica l Branch (FLUCELVAX) SLEEP STUDY DATA REPORT 2022-07-23 06:01:00 Doctor Unassigned, U [facility] POCT GLUCOSE (AUTOMATED) 2022-07-11 03:13:00 Corey Lantigua [facility] LACTIC ACID WHOLE BLOOD 2022-07-11 03:03:00 Corey Lantigua [facility] CT ABDOMEN PELVIS W 2022-07-11 01:01:06 Corey Lantigua [facility] CONTRAST [facility] LACTIC ACID WHOLE BLOOD 2022-07-10 23:36:00 Corey Lantigua [facility] LIPASE 2022-07-10 23:31:00 Corey Lantigua [facility] TROPONIN I 2022-07-10 23:31:00 Grzegorz Corey [facility] COMP. METABOLIC PANEL 2022-07-10 23:31:00 Corey Lantigua [facility] ([id number]) [facility] CBC WITH DIFF 2022-07-10 23:31:00 Corey Lantigua [facility] PROTHROMBIN TIME / INR 2022-07-10 23:31:00 Corey Lantigua [facility] ACTIVATED PARTIAL 2022-07-10 23:31:00 Corey Lantigua [facility] THRMPLAS MARISABEL [facility] URINALYSIS 2022-07-10 23:31:00 Corey Lantigua o f [facility] N-TERMINAL PRO-BNP 2022-07-10 23:31:00 Corey [facility] CONSENT/REFUSAL FOR 2022-07-10 21:33:49 Doctor Unassigned, [facility] DIAGNOSIS AND TREATMENT [facility] INSURANCE CORRESPONDENCE 2022-07-02 06:01:00 Doctor Unassigned, [facility] Name [facility] EXTERNAL PROVIDER RECORDS 2022-06-24 06:01:00 Doctor Unassigned, [facility] Name [facility] DME/SUPPLY JUSTIFICATION 2022-06-17 06:01:00 Doctor Unassigned, [facility] Name [facility] INSURANCE CORRESPONDENCE 2022-06-09 06:01:00 Doctor Unassigned, [facility] Name [facility] INSURANCE CORRESPONDENCE 2022-05-06 06:01:00 Doctor Unassigned, [facility] Name [facility] INSURANCE CORRESPONDENCE 2022-04-17 05:01:00 Doctor Unassigned, [facility] Name [facility] EXTERNAL PROVIDER RECORDS 2022-03-10 05:01:00 Doctor Unassigned, [facility] Name [facility] POCT HEMOGLOBIN A1C TEST 2022-01-26 00:00:00 Juan Carlos Escalera [facility] Encounters Start End Encounter Admission Attending Care Care Encounter Source Date/Time Date/Time Type Type Clinicians Facility Department ID 2022-03-26 Outpatient Kohler, STLMLC STLMLC [id number] Common 14:10:01 Bhanu [facility] 2022-03-25 Outpatient Kohler, STLMLC STLMLC [id number] Common 10:07:01 Bhanu [facility] 2021-09-25 Outpatient Kohler, STLMLC STLMLC [id number] Common 14:10:00 Bhanu [id number] [facility] 2021-07-09 Outpatient Kohler, STLMLC STLMLC [id number] Common 13:53:25 Bhanu [id number] [facility] 2021-07-09 Outpatient Kohler, STLMLC STLMLC [id number] Common 13:15:22 Bhanu Mclaughlin16 [facility] 2021-07-09 Outpatient Kohler, STLMLC STLMLC [id number] Common 13:09:01 Bhanu Melton [facility] 2021-07-09 Outpatient Kohler, [facility] [id number] Common 13:07:45 Bhanu Dunne [facility] 2021-07-09 Outpatient Kohler, [facility] [id number] Common 13:07:26 Bhanu Romero [facility] 2021-07-09 Outpatient Kohler, [facility] [id number] Common 12:57:00 Bhanu Forte [facility] 2023-05-05 2023-05-05 Telephone [facility] [id number] Univers 00:00:00 00:00:00 [facility] [id number] it y of [place] [id number] [place]ullen as NATALIO?BLEA [id number] [address] MEDICAL OFFICE [facility] 2023-04-30 2023-05-03 Inpatient [facility] [id number] [facility] 23:02:00 14:30:00 N, GREGG 21 2023-05-03 2023-05-03 [facility] [id number] Univers 14:00:00 14:00:00 JUAN CARLOS green [facility] 2023-04-28 2023-04-28 Telephone [facility] [id number] Univers 00:00:00 00:00:00 [facility] [id number] it y of [place] [id number] [place] as NATALIO?BLEA [id number] [address] MEDICAL OFFICE [facility] 2023-04-26 2023-04-26 Orders Doctor BENITEZ [id number] Univers 00:00:00 00:00:00 Only Unassigned, SUSAN [id number] ity of Loiza [facility] [id number] [place] as [id number] [address] 2023-04-26 2023-04-26 [facility] [id number] [facility] 00:00:00 00:00:00 Juan Carlos HEALTH [id number] it y of [place] [id number] [place] as NATALIO?BLEA [id number] [address] OFFICE [facility] 2023-04-26 2023-04-26 [facility] [id number] Univers 00:00:00 00:00:00 Juan Carlos HEALTH [id number] it y of [place] [id number] [place] as NATALIO?BLEA [id number] [address] 2023-04-21 2023-04-21 [facility] [id number] [facility] 00:00:00 00:00:00 [facility] [id number] it y of [place] [id number] [place] as NATALIO?BLEA [id number] [address] 2023-04-13 2023-04-13 [facility] [id number] Univers 00:00:00 00:00:00 [facility] [id number] it y of [place] [id number] [place] as NATALIO?BLEA [id number] [address] 2023-04-06 2023-04-06 [facility] [id number] [facility] 00:00:00 00:00:00 [facility] [id number] it y of [place] [id number] [place] as NATALIO?BLEA [id number] [address] 2023-04-06 2023-04-06 [facility] [id number] Univers 00:00:00 00:00:00 Juan Carlos HEALTH 350.1.13.10 it y of [place] 4.2.7.2.686 Cullen as NATALIO?BLEA [id number] Mt dictawana CUEVAS [address] [place] MEDICAL OFFICE [facility] 2023-04-06 2023-04-06 Telephone [facility] 1.2.840.114 [id number] Univers 00:00:00 00:00:00 Strahil T [place] 350.1.13.10 ity of [place].2.7.2.[place] [phone] Mt alvino JENKINS 085 [facility] 2023-04-05 2023-04-05 Telephone [facility] 1.2.840.114 [id number] [facility] 00:00:00 00:00:00 [facility] HEALTH 350.1.13.10 it y of [place] 4.2.7.2.686 Cullen as NATALIO?BLEA [id number] Mt alvino CUEVAS 044 [facility] OFFICE [facility] 2023 2023 Telephone [facility] 1.2.840.114 [id number] [facility] 00:00:00 00:00:00 [facility] 350.1.13.10 it y of [place] 4.2.7.2.686 Cullen as NATALIO?BLEA [id number] Mt alvino CUEVAS [address] [place] [address] OFFICE [facility] 2023-03-31 2023-03-31 Outpatient [facility] [id number] Univers 16:08:00 23:59:00 JUAN CARLOS ity of [facility] 2023-03-31 2023-03-31 [facility] 1.2.518.873 [id number] Univers 16:08:00 23:59:00 Encounter [facility] 350.1.13.10 ity of [place] 4.2.7.2.686 Cullen as NATALIO?BLEA [phone] Mt alvino CUEVAS 809 [place] MEDICAL OFFICE [facility] 2023-03-31 2023-03-31 Office [facility] 1.2.840.114 [id number] Univers 15:30:00 16:05:33 Visit [facility] 350.1.13.10 it y of [place] 4.2.7.2.686 Cullen as NATALIO?BLEA [id number] [address] OFFICE [facility] 2023-03-30 2023-03-30 Outpatient R LISA [facility] [id number] Univers 13:00:00 13:00:00 SOLANGE ity of [facility] 2023-03-15 2023-03-15 Refjudy Escalera [facility] 1.2.840.114 [id number] Univers 00:00:00 00:00:00 [facility] 350.1.13.10 it y of [place] 4.2.7.2.686 Cullen as NATALIO?BLEA [id number] [address] OFFICE [facility] 2023-03-03 2023-03-03 Office [facility] 1.2.367.933 [id number] Univers 10:30:00 11:00:00 Visit Geni [place] 350.1.13.10 ity of [place].2.7.2.[place] [id number] [address] 2023-03-03 2023-03-03 Outpatient R GENI BOLES [facility] [id number] Univers 10:30:00 10:30:00 GENI BOLES ity of [facility] 2023-03-03 2023-03-03 Orders Doctor EMMANUEL 1.2.840.114 [id number] Univers 00:00:00 00:00:00 Only Unassigned, SUSAN 350.1.13.10 ity of [place] [facility] 4.2.7.2.686 Cullen as [id number] [address] 2023-03-03 2023-03-03 Telephone [facility] 1.2.840.114 10 [id number] Univers 00:00:00 00:00:00 Stranatel Skye AMOS 350.1.13.10 ity of [place].2.7.2.[place] [id number] [address] 2023-03-03 2023-03-03 Telephone [facility] 1.2.304.712 [id number] Univers 00:00:00 00:00:00 Ashleigh Visual Pro 360 350.1.13.10 it y of [place] 4.2.7.2.686 Cullen as NATALIO?BLEA [phone] [facility] MASON [address] [place] MEDICAL OFFICE BUILDING 2023-02-25 2023-02-25 [facility] 1.2.840.114 [id number] Univers 00:00:00 00:00:00 [facility] 350.1.13.10 it y of [place] 4.2.7.2.686 Cullen as NATALIO?BLEA [phone] [facility] [address] [place] MEDICAL OFFICE [facility] 2023-02-16 2023-02-16 Outpatient R ELVI [facility] [id number] Univers 20:00:00 20:00:00 GENI BOLES [facility] 2023-02-08 2023-02-08 [facility] 1.2.840.114 [id number] Univers 00:00:00 00:00:00 [facility] 350.1.13.10 it y of [place] [facility] 4.2.7.2.686 Cullen as NATALIO?BLEA [id number] [address] OFFICE [facility] 2023-02-04 2023-02-04 Office [facility] 1.2.840.114 [id number] Univers 15:15:00 15:30:00 Visit [facility] 350.1.13.10 it y of [place] 4.2.7.2.686 Cullen as NATALIO?BLEA [id number] [address] MEDICAL OFFICE [facility] 2023-02-04 2023-02-04 Outpatient R [facility] [id number] Univers 15:15:00 15:15:00 JUAN CARLOS [facility] 2023-01-21 2023-01-21 Orders Doctor BENITEZ 1.2.840.114 [id number] Univers 00:00:00 00:00:00 Only Unassigned, SUSAN 350.1.13.10 ity of [place] [facility] 4.2.7.2.686 Cullen as [id number] [address] 2023-01-20 2023-01-20 Telephone [facility] 1.2.840.114 [id number] Univers 00:00:00 00:00:00 Juan Carlos HEALTH 350.1.13.10 it y of [place] 4.2.7.2.686 Cullen as NATALIO?BLEA [phone] [facility] 044 [facility] OFFICE [facility] 2023-01-11 2023-01-11 Orders Doctor EMMANUEL 1.2.840.114 [id number] Univers 00:00:00 00:00:00 Only Unassigned, SUSAN 350.1.13.10 ity of [place] [facility] 4.2.7.2.686 Cullen as [phone] [address] 2023-01-04 2023-01-04 Outpatient Gaurav ELE [facility] [id number] Univers 11:30:00 12:26:56 ASHLEIGH green [facility] 2023-01-04 2023-01-04 Office [facility] 1.2.840.114 [id number] Univers 11:30:00 12:26:56 Visit AshleighKickit With 350.1.13.10 it y of [place] 4.2.7.2.686 Cullen as NATALIO?BLEA [id number] [place] 735072 [facility] OFFICE [facility] 2022-12-28 2022-12-28 Outpatient Gaurav LEE [facility] [id number] Univers 11:00:00 11:00:00 ASHLEIGH green [facility] 2022-12-24 2022-12-24 Refill [facility] 1.2.840.114 [id number] Univers 00:00:00 00:00:00 Sarah A HEALTH 350.1.13.10 i ty of [place] 4.2.7.2.686 Cullen as NATALIO?BLEA [id number] [address] OFFICE [facility] 2022-12-23 2022-12-23 Outpatient R DILLON [facility] [id number] Univers 11:30:00 13:08:19 SARAH green [facility] 2022-12-23 2022-12-23 [facility] 1.2.840.114 [id number] Univers 11:30:00 13:08:19 Visit Sarah Olson HEALTH 350.1.13.10 i ty of [place] 4.2.7.2.686 Cullen as NATALIO?BLEA [phone] [facility] 044 [facility] OFFICE [facility] 2022-12-23 2022-12-23 [employer], Ang - Db [facility] 1.2.840.1 14 [id number] Univers 12:30:00 13:08:06 Visit Sarah Stewart HEALTH 350.1.13.10 ity of [place] 4.2.7.2.686 Cullen as NATALIO?BLEA [id number] [facility] KEIKO 353 [facility] OFFICE [facility] 2022-12-23 2022-12-23 Telephone Chelsie Wall [facility] 1.2.840.114 [id number] Univers 00:00:00 00:00:00 HEALTH 350.1.13.10 it y of [place].2.[place] C[place] - [id number] [address] 2022-12-23 2022-12-23 [facility] 1.2.840.114 [id number] Univers 00:00:00 00:00:00 Juan Carlos HEALTH 350.1.13.10 it y of [place] 4.2.7.2.686 Cullen as NATALIO?BLEA [id number] [address] OFFICE [facility] 2022-12-17 2022-12-17 Refill [facility] 1.2.840.114 [id number] Univers 00:00:00 00:00:00 Juan Carlos [place] 350.1.13.10 i ty of [place].2.7.2.686 [place] [id number] [address] 2022-12-16 2022-12-16 Telephone [facility] 1.2.840.114 104 [id number] Univers 00:00:00 00:00:00 Juan Carlos HEALTH 350.1.13.10 it y of [place] 4.2.7.2.686 Cullen as NATALIO?BLEA [id number] Mt alvino CUEVAS 0[address] [place] MEDICAL OFFICE [facility] 2022-12-16 2022-12-16 Patient Doctor [facility] 1.2.840.114 [id number] Univers 00:00:00 00:00:00 Secure Msg Unassigned, [facility] 350.1.13.10 ity of [place] 4.2.7.2.686 Cullen as NATALIO?BLEA [id number] Mt alvino CUEVAS [address] [place] MEDICAL OFFICE [facility] 2022-12-12 2022-12-12 Outpatient Gaurav STOLL [facility] [id number] [facility] 10:00:00 10:31:29 REJI nayla [facility] 2022-12-12 2022-12-12 Urgent Reji Stoll [facility] 1.2.840.11 4 [id number] Univers 10:00:00 10:31:29 Care Unknown, [facility] 350.1.13.10 ity of [place] 4.2.7.2.686 Cullen as NATALIO?BLEA [id number] Mt alvino CUEVAS 370 [place] MEDICAL OFFICE [facility] 2022-12-11 2022-12-11 Telephone [facility] 1.2.840.114 [id number] Univers 00:00:00 00:00:00 [facility] 350.1.13.10 it y of [place] 4.2.7.2.686 Cullen as NATALIO?BLEA [phone] Mt alvino CUEVAS 044 [facility] OFFICE [facility] 2022-12-09 2022-12-09 Office [facility] 1.2.840.114 [id number] Univers 14:15:00 14:30:00 Visit [facility] 350.1.13.10 it y of [place] 4.2.7.2.686 Cullen as NATALIO?BLEA [id number] Mt alvino CUEVAS [address] [place] [address] OFFICE [facility] 2022-12-09 2022-12-09 Outpatient R [facility] [id number] Univers 14:15:00 14:15:00 JUAN CARLOS [facility] 2022-12-09 2022-12-09 Telephone [facility] 1.2.840.114 [id number] Univers 00:00:00 00:00:00 [facility] 350.1.13.10 it y of [place] 4.2.7.2.686 Cullen as NATALIO?BLEA [id number] Mt dictawana CUEVAS 0[address] [place] MEDICAL OFFICE [facility] 2022-12-09 2022-12-09 [facility] 1.2.840.114 [id number] Univers 00:00:00 00:00:00 [facility] HEALTH 350.1.13.10 it y of [place] 4.2.7.2.686 Cullen as NATALIO?BLEA [id number] Mt alvino CUEVAS [address] [place] [address] OFFICE [facility] 2022-12-04 2022-12-04 [facility] 1.2.840.114 [id number] [facility] 00:00:00 00:00:00 [facility] HEALTH 350.1.13.10 it y of [place] 4.2.7.2.686 Cullen as NATALIO?BLEA [id number] Mt dictawana CUEVAS [address] [place] [address] OFFICE [facility] 2022-12-01 2022-12-01 [facility] 1.2.840.114 [id number] [facility] 00:00:00 00:00:00 [facility] 350.1.13.10 it y of [place] 4.2.7.2.686 Cullen as NATALIO?BLEA [id number] Mt dictawana CUEVAS [address] [place] [address] OFFICE [facility] 2022-11-30 2022-11-30 [facility] Ileana Pandey [facility] 1.2.840.114 [id number] Univers 00:00:00 00:00:00 HEALTH 350.1.13.10 it y of [place] 4.2.7.2.686 Cullen as NATALIO?BLEA [id number] Mt dictawana CUEVAS 220 [facility] OFFICE [facility] 2022-11-30 2022-11-30 [facility] 1.2.840.114 [id number] Univers 00:00:00 00:00:00 [facility] HEALTH 350.1.13.10 it y of [place] 4.2.7.2.686 Cullen as NATALIO?BLEA [id number] Mt [address] OFFICE [facility] 2022-11-13 2022-11-13 [facility] 1.2.840.114 [id number] Univers 00:00:00 00:00:00 Juan Carlos HEALTH 350.1.13.10 it y of [place] 4.2.7.2.686 Cullen as NATALIO?BLEA [phone] [address] OFFICE [facility] 2022-11-02 2022-11-02 [facility] 1.2.840.114 [id number] Univers 00:00:00 00:00:00 Juan Carlos HEALTH 350.1.13.10 it y of [place] 4.2.7.2.686 [place]ullen as NATALIO?BLEA [id number] [address] 2022-10-28 2022-10-28 [facility] 1.2.840.114 [id number] Univers 00:00:00 00:00:00 [facility] HEALTH 350.1.13.10 it y of [place] 4.2.7.2.686 [place]ullen as NATALIO?BLEA [id number] [address] OFFICE [facility] 2022-10-13 2022-10-13 Orders Doctor EMMANUEL 1.2.840.114 [id number] Univers 00:00:00 00:00:00 Only Unassigned, SUSAN 350.1.13.10 ity of [place] [facility] 4.2.7.2.686 Cullen as [id number] [address] 2022-10-06 2022-10-06 [facility] 1.2.840.114 [id number] Univers 00:00:00 00:00:00 [facility] HEALTH 350.1.13.10 it y of [place] 4.2.7.2.686 Cullen as NATALIO?BLEA [id number] [address] OFFICE [facility] 2022-10-05 2022-10-05 [facility] 1.2.840.114 [id number] Univers 00:00:00 00:00:00 [facility] HEALTH 350.1.13.10 it y of [place] 4.2.7.2.686 Cullen as NATALIO?BLEA [phone] [facility] KEIKO [address]44 [place] MEDICAL OFFICE [facility] 2022-10-05 2022-10-05 Telephone Lali [facility] 1.2.840.114 [id number] Univers 00:00:00 00:00:00 [facility] 350.1.13.10 it y of [place] 4.2.7.2.686 [place] as NATALIO?BLEA [id number] [facility] [address] [place] MEDICAL OFFICE [facility] 2022-09-28 2022-09-28 [employer] 1, [facility] Sleep [facility] Bed [facility] 1. 2.840.114 [id number] Univers 20:00:00 22:30:00 Visit Geni Boles [place] 350.1.13. 10 ity of [place]2.7.2.686 [place] [id number] [facility] [address] [place] 2022-09-28 2022-09-28 Outpatient R GENI BOLES [facility] [id number] Univers 20:00:00 20:00:00 GENI BOLES ity of [facility] 2022-09-28 2022-09-28 Office [facility] 1.2.840.114 [id number] Univers 11:00:00 11:38:24 Visit [facility] 350.1.13.10 it y of [place] 4.2.7.2.686 [place]ullen as NATALIO?BLEA [id number] [facility] [address] [place] MEDICAL OFFICE [facility] 2022-09-28 2022-09-28 Orders Doctor BENITEZ 1.2.840.114 [id number] Univers 00:00:00 00:00:00 Only Unassigned, SUSAN 350.1.13.10 ity of [place] [facility] 4.2.7.2.686 Cullen as [id number] [facility] 00[address] [place] 2022-09-21 2022-09-21 Orders Doctor EMMANUEL 1.2.840.114 [id number] Univers 00:00:00 00:00:00 Only Unassigned, SUSAN 350.1.13.10 ity of [place] HOSPITAL 4.2.7.2.686 Cullen as [id number] [facility] 00[address] [place] 2022-09-16 2022-09-16 Outpatient R ELVI GENI [facility] [id number] Univers 10:30:00 11:29:56 MERARI BOLESSHE ity of [facility] 2022-09-16 2022-09-16 Office [facility] 1.2.238.036 [id number] Univers 10:30:00 11:00:00 Visit Merarinjleisa Cheung [place] 350.1.13.10 ity of [place] 4.2.7.2.686 [place] ESS[place] [id number] [address] 2022-09-15 2022-09-15 Refjudy [facility] 1.2.840.114 [id number] Univers 00:00:00 00:00:00 [facility] 350.1.13.10 it y of [place] 4.2.7.2.686 Cullen as NATALIO?BLEA [id number] [address] MEDICAL OFFICE [facility] 2022-09-09 2022-09-09 Telephone EMMANUEL Fregoso 1.2.532.551 [id number] [id number] Univers 00:00:00 00:00:00 Yadira DAVIS 350.1.13.10 ity of [facility] 4.2.7.2.686 Cullen as [id number] [facility] [address] [place] 2022-09-07 2022-09-07 Lars [facility] 1.2.840.114 [id number] Univers 00:00:00 00:00:00 [facility] 350.1.13.10 it y of [place] 4.2.7.2.686 Cullen as NATALIO?BLEA [id number] [address] MEDICAL OFFICE [facility] 2022-09-01 2022-09-01 Lars Escalera [facility] 1.2.840.114 [id number] Univers 00:00:00 00:00:00 [facility] 350.1.13.10 it y of [place] 4.2.7.2.686 Cullen as NATALIO?BLEA 142.3050091 Me [address] OFFICE [facility] 2022-08-25 2022-08-25 Outpatient R ROSA [facility] [id number] Univers 13:00:00 13:00:00 ASHLEIGH ity [facility] 2022-08-12 2022-08-12 Patient Doctor [facility] 1.2.840.114 [id number] Univers 00:00:00 00:00:00 Secure Msg Unassigned, HEALTH 350.1.13.10 ity of [place] 4.2.7.2.686 Cullen as NATALIO?BLEA [id number] [address] OFFICE [facility] 2022-08-11 2022-08-11 Refjudy Escalera [facility] 1.2.840.114 [id number] Univers 00:00:00 00:00:00 Juan Carlos HEALTH 350.1.13.10 it y of [place] 4.2.7.2.686 Cullen as NATALIO?BLEA [id number] [address] 2022-08-10 2022-08-10 Telephone [facility] 1.2.855.378 [id number] Univers 00:00:00 00:00:00 Ashleigh HEALTH 350.1.13.10 it y of [place] 4.2.7.2.686 Cullen as NATALIO?BLEA [id number] [address] 2022-08-03 2022-08-03 Outpatient R [facility] [id number] Univers 10:51:40 23:59:00 ASHLEIGH ity [facility] 2022-08-03 2022-08-03 [facility] 1.2.840.114 [id number] Univers 10:50:00 23:59:00 Encounter Ashleigh [facility] 350.1.13.10 ity of [place] 4.2.7.2.[place] [id number] [address] 2022-08-03 2022-08-03 Orders Doctor EMMANUEL 1.2.840.114 [id number] Univers 00:00:00 00:00:00 Only Unassigned, SUSAN 350.1.13.10 ity of [place] [facility] 4.2.7.2.686 Cullen as [id number] [facility] 00[address] [place] 2022-08-03 2022-08-03 Refill [facility] 1.2.840.114 [id number] Univers 00:00:00 00:00:00 Juan Carlos HEALTH 350.1.13.10 it y of [place] 4.2.7.2.686 Cullen as NATALIO?BLEA [id number] [address] MEDICAL OFFICE [facility] 2022-07-30 2022-07-30 Patient Doctor [facility] 1.2.840.114 [id number] Univers 00:00:00 00:00:00 Secure Msg Unassigned, HEALTH 350.1.13.10 ity of [place] 4.2.7.2.686 Cullen as NATALIO?BLEA [id number] [address] 2022-07-30 2022-07-30 Patient Doctor EMMANUEL 1.2.840.114 [id number] Univers 00:00:00 00:00:00 Secure Msg Unassigned, SUSAN 350.1.13.10 ity of [place] [facility]OSPITAL 4.2.7.2.686 Cullen as [id number] [facility] [address] [place] 2022-07-29 2022-07-29 Telephone [facility] 1.2.963.137 [id number] Univers 00:00:00 00:00:00 Sarah Whitney HEALTH 350.1.13.10 i ty [facility] 4.2.7.2.686 Cullen as NATALIO?BLEA [id number] [address] 2022-07-29 2022-07-29 [facility]phone [facility] 1.2.840.114 [id number] Univers 00:00:00 00:00:00 Juan Carlos HEALTH 350.1.13.10 it y of [place] 4.2.7.2.686 Cullen as NATALIO?BLEA [id number] [address] 2022-07-28 2022-07-28 Outpatient R ROSA [facility] [id number] Univers 14:30:00 15:25:25 [facility] 2022-[facility]-28 2022-07-28 Office [facility] 1.2.840.114 [id number] Univers 14:30:00 15:25:25 Visit Ashleigh HEALTH 350.1.13.10 it y of [place] 4.2.7.2.686 Cullen as NATALIO?BLEA [id number] [address] MEDICAL OFFICE BUILDING 2022-07-23 2022-07-23 [employer] Reese Mayes Sleep Lab [facility] 1.2 .840.114 [id number] Univers 10:00:00 10:15:00 [facility] 350.1.13. 10 ity of [place] 4.2.7.2.686 [place] [facility] [id number] [facility] [address] [place] 2022-07-23 2022-07-23 Outpatient R GENI BOLES [facility] [id number] Univers 10:00:00 10:00:00 GENI BOLES [facility] 2022-07-23 2022-07-23 Letter Doctor EMMANUEL 1.2.840.114 [id number] Univers 00:00:00 00:00:00 (Out) Unassigned, SUSAN 350.1.13.10 ity of [place] HOSPITAL 4.2.7.2.686 Cullen as [id number] [facility] [address] [place] 2022-07-23 2022-07-23 Orders Doctor EMMANUEL 1.2.840.114 [id number] Univers 00:00:00 00:00:00 Only Unassigned, SUSAN 350.1.13.10 ity of [place] [facility] 4.2.7.2.686 Cullen as [id number] [facility] [address] [place] 2022-07-17 2022-07-17 Outpatient R ROSA [facility] [id number] Univers 11:00:00 11:00:00 [facility] 2022-07-16 2022-07-16 Telephone Dillon [facility] 1.2.189.813 [id number] Univers 00:00:00 00:00:00 Sarah A HEALTH 350.1.13.10 i ty of [place] 4.2.7.2.686 Cullen as NATALIO?BLEA [phone] [address] OFFICE [facility] 2022-07-15 2022-07-15 Telephone [facility] 1.2.840.114 [id number] Univers 00:00:00 00:00:00 [facility] 350.1.13.10 it y of [place] 4.2.7.2.686 Cullen as NATALIO?BLEA [id number] [address] OFFICE [facility] 2022-07-14 2022-07-14 Outpatient R GENI BOLES [facility] [id number] Univers 12:00:00 12:00:00 MERARI BOLESTXLeisa [facility] 2022-07-10 2022-07-10 Emergency Corey Lantigua [facility] 1.2.840. 114 [id number] Univers 15:43:00 22:03:00 Grace Canseco S [place] 350.1.13.10 ity of [place] 4.2.7.2.686 [facility] [id number] [address] 2022-07-10 2022-07-10 Outpatient [facility] [id number] Univers 14:00:00 15:04:08 [facility] 2022-07-10 2022-07-10 [facility] [id number] Univers 14:00:00 15:04:08 [facility] 2022-07-10 2022-07-10 [facility] 1.2.840.114 [id number] Univers 14:00:00 15:04:08 Visit [facility] 350.1.13.10 i ty of [place] 4.2.7.2.686 Cullen as NATALIO?BLEA [id number] [address] OFFICE [facility] 2022-07-06 2022-07-06 Telephone [facility] 1.2.840.114 [id number] Univers 00:00:00 00:00:00 Juan Carlos HEALTH 350.1.13.10 it y of [place] 4.2.7.2.686 Cullen as NATALIO?BLEA [id number] [address] OFFICE [facility] 2022-07-02 2022-07-02 Orders Doctor EMMANUEL 1.2.840.114 [id number] Univers 00:00:00 00:00:00 Only Unassigned, SUSAN 350.1.13.10 ity of [place] [facility] 4.2.7.2.686 [place] as [id number] [address] 2022-07-01 2022-07-01 Outpatient R ILEANA PANDEY [facility] [id number] Univers 10:00:00 10:00:00 ILEANA PANDEY ity of [facility] 2022-06-30 2022-06-30 Refill [facility] 1.2.840.114 [id number] Univers 00:00:00 00:00:00 [facility] HEALTH 350.1.13.10 it y of [place] 4.2.7.2.686 [place]ullen as NATALIO?BLEA [id number] [address] 2022-06-24 2022-06-24 Orders Doctor EMMANUEL 1.2.840.114 [id number] Univers 00:00:00 00:00:00 Only Unassigned, SUSAN 350.1.13.10 ity of [place] [facility] 4.2.7.2.686 [place] as [id number] [address] 2022-06-24 2022-06-24 Telephone [facility] 1.2.840.114 [id number] Univers 00:00:00 00:00:00 Juan Carlos HEALTH 350.1.13.10 it y of [place] 4.2.7.2.686 Cullen as NATALIO?BLEA [id number] [address] 2022-06-22 2022-06-22 Telephone [facility] 1.2.840.114 [id number] Univers 00:00:00 00:00:00 Juan Carlos HEALTH 350.1.13.10 it y of [place] 4.2.7.2.686 [place]ullen as NATALIO?BLEA [id number] [address] [facility] 2022-06-18 2022-06-18 Outpatient [facility] [id number] Univers 14:30:00 15:11:40 JUAN CARLOS ity of [facility] 2022-06-18 2022-06-18 Office [facility] 1.2.840.114 [id number] Univers 14:30:00 15:00:00 Visit [facility] 350.1.13.10 it y of [place] 4.2.7.2.686 [place] as NATALIO?BLEA [id number] [address] OFFICE [facility] 2022-06-17 2022-06-17 Orders Doctor EMMANUEL 1.2.840.114 [id number] Univers 00:00:00 00:00:00 Only Unassigned, SUSAN 350.1.13.10 ity of [place] [facility] 4.2.7.2.686 [place] as [id number] [address] 2022-06-17 2022-06-17 Telephone [facility] 1.2.840.114 [id number] Univers 00:00:00 00:00:00 [facility] 350.1.13.10 it y of [place] 4.2.7.2.686 [place]ullen as NATALIO?BLEA [phone] [address] OFFICE [facility] 2022-06-11 2022-06-11 Telephone [facility] 1.2.840.114 [id number] Univers 00:00:00 00:00:00 [facility] 350.1.13.10 it y of [place] 4.2.7.2.686 Cullen as NATALIO?BLEA [id number] [address] OFFICE [facility] 2022-06-10 2022-06-10 Telephone [facility] 1.2.840.114 [id number] Univers 00:00:00 00:00:00 [facility] 350.1.13.10 it y of [place] 4.2.7.2.686 [place] as NATALIO?BLEA [phone] [address] OFFICE [facility] 2022-06-09 2022-06-09 Orders Doctor EMMANUEL 1.2.840.114 [id number] Univers 00:00:00 00:00:00 Only Unassigned, SUSAN 350.1.13.10 ity of [place] [facility] 4.2.7.2.686 [place] as [id number] [address] 2022-06-04 2022-06-04 [facility] 1.2.840.114 [id number] Univers 00:00:00 00:00:00 Juan Carlos HEALTH 350.1.13.10 it y of [place] 4.2.7.2.686 [place] as NATALIO?BLEA [phone] [address] OFFICE [facility] 2022-05-19 2022-05-19 Telephone [facility] 1.2.840.114 [id number] Univers 00:00:00 00:00:00 [facility] 350.1.13.10 it y of [place] 4.2.7.2.686 [place] as NATALIO?BLEA [id number] [address] OFFICE [facility] 2022-05-13 2022-05-13 [facility] 1.2.840.114 [id number] Univers 00:00:00 00:00:00 [facility] 350.1.13.10 it y of [place] 4.2.7.2.686 [place] as NATALIO?BLEA [id number] [address] OFFICE [facility] 2022-05-08 2022-05-08 Telephone [facility] 1.2.840.114 [id number] Univers 00:00:00 00:00:00 Juan Carlos HEALTH 350.1.13.10 it y of [place] 4.2.7.2.686 [place] as NATALIO?BLEA [id number] [address] OFFICE [facility] 2022-05-06 2022-05-06 Telephone [facility] 1.2.840.114 [id number] Univers 00:00:00 00:00:00 Juan Carlos HEALTH 350.1.13.10 it y of [place] 4.2.7.2.686 [place] as NATALIO?BLEA [phone] [place] alvino [address] [place] MEDICAL OFFICE [facility] 2022-05-06 2022-05-06 Orders Doctor EMMANUEL 1.2.840.114 [id number] Univers 00:00:00 00:00:00 Only Unassigned, SUSAN 350.1.13.10 ity of [place] [facility] 4.2.7.2.686 [place] as [id number] [address] 2022-04-27 2022-04-27 Outpatient [facility]aur[facility] [id number] Univers 16:00:00 16:00:00 JUAN CARLOS [facility] 2022-04-27 2022-04-27 Telephone [facility] 1.2.840.114 [id number] Univers 00:00:00 00:00:00 Juan Carlos HEALTH 350.1.13.10 it y of [place] 4.2.7.2.686 [place] as NATALIO?BLEA [id number] Mt alvino ADEN 044 [facility] OFFICE [facility] 2022-04-21 2022-04-21 Telephone Nadia, Ileana [facility] 1.2.660.380 [id number] Univers 00:00:00 00:00:00 HEALTH 350.1.13.10 it y of [place] 4.2.7.2.686 [place] as NATALIO?BLEA [phone] Mt alvino [address] 220 [facility] OFFICE [facility] 2022-04-17 2022-04-17 Orders Doctor EMMANUEL 1.2.840.114 [id number] Univers 00:00:00 00:00:00 Only Unassigned, SUSAN 350.1.13.10 ity of [place] [facility] 4.2.7.2.686 C[place] as [id number] [address] 2022-04-16 2022-04-16 Outpatient Gaurav [facility] [id number] Univers 10:00:00 10:00:00 JUAN CARLOS [facility] 2022-04-16 2022-04-16 Telephone [facility] 1.2.840.114 [id number] Univers 00:00:00 00:00:00 Juan Carlos HEALTH 350.1.13.10 it y of [place] 4.2.7.2.686 [place]ullen as NATALIO?BLEA [phone] Mt dictawana [address] [place] MEDICAL OFFICE BUILDING 2022-04-10 2022-04-10 Telephone Lali [facility] 1.2.840.114 [id number] Univers 00:00:00 00:00:00 Juan Carlos HEALTH 350.1.13.10 it y of [place] 4.2.7.2.686 [place] as NATALIO?BLEA [id number] Mt dict[place]ana [address] [place] MEDICAL OFFICE [facility]ILDING 2022-04-01 2022-04-01 Telephone Nadia [facility] 1.2.730.900 [id number] Univers 00:00:00 00:00:00 PRIMARY 350.1.13.10 it y of [place].2.[place] [facility] [id number] [place] alvino [address] [place] 2022-03-26 2022-03-26 (TEL) STLMLC STLMLC [id number] Co mmon 00:00:00 00:00:00 [facility] 2022-03-25 2022-03-25 OFFICE STLMLC STLMLC [id number] Co mmon 00:00:00 00:00:00 VISIT EST Spir it PT LEVEL 3 [facility] 2022-03-23 2022-03-23 [employer] [facility], Ang [facility] 1.2.840.1 14 [id number] Univers 15:30:00 15:45:00 Visit NadiaIleana lima [facility] 350.1.13.10 it y of [place] 4.2.7.2.686 [place] as NATALIO?BLEA [id number] Mt alvino [address] [place] MEDICAL OFFICE [facility] 2022-03-23 2022-03-23 Outpatient R ILEANA PANDEY [facility] [id number] Univers 14:30:00 15:30:56 ILEANA PANDEY [facility] 2022-03-23 2022-03-23 Office Nadia [facility] 1.2.840.114 [id number] Univers 14:30:00 15:30:56 Visit HEALTH 350.1.13.10 it y of [place] 4.2.7.2.686 [place] as NATALIO?BLEA [id number] Mt alvino [address] [place] MEDICAL OFFICE BUILDING 2022-03-19 2022-03-19 Telephone [facility] 1.2.840.114 [id number] Univers 00:00:00 00:00:00 [facility] 350.1.13.10 it y of [place] 4.2.7.2.686 [place] as NATALIO?BLEA [phone] Mt alvino [address] [place] MEDICAL OFFICE [facility] 2022-03-17 2022-03-17 Refill [facility] 1.2.840.114 [id number] Univers 00:00:00 00:00:00 [facility] HEALTH 350.1.13.10 it y of [place] 4.2.7.2.686 [place] as NATALIO?BLEA [phone] Mt alvino [address] OFFICE [facility] 2022-03-11 2022-03-11 Office [facility] 1.2.840.114 [id number] Univers 16:00:00 16:15:00 Visit [facility] 350.1.13.10 it y of [place] 4.2.7.2.686 [place] as NATALIO?BLEA [id number] [address] OFFICE [facility] 2022-03-11 2022-03-11 Outpatient [facility] [id number] Univers 16:00:00 16:00:00 JUAN CARLOS ity of [facility] 2022-03-10 2022-03-10 Orders Doctor EMMANUEL 1.2.840.114 [id number] Univers 00:00:00 00:00:00 Only Unassigned, SUSAN 350.1.13.10 ity of [place] [facility] 4.2.7.2.686 [place] as [id number] [address] 2022-02-18 2022-02-18 Telephone [facility] 1.2.840.114 [id number] Univers 00:00:00 00:00:00 [facility] 350.1.13.10 it y of [place] 4.2.7.2.686 [place] as NATALIO?BLEA [id number] Mt dic[address] MEDICAL OFFICE [facility] 2022-02-18 2022-02-18 Telephone [facility] 1.2.840.114 [id number] Univers 00:00:00 00:00:00 [facility] 350.1.13.10 it y of [place] 4.2.7.2.686 [place] as NATALIO?BLEA [id number] [address] OFFICE [facility] 2022-01-26 2022-01-26 Office [facility] 1.2.840.114 [id number] Univers 14:00:00 14:15:00 Visit [facility] 350.1.13.10 it y of [place] 4.2.7.2.686 [place]ullen as NATALIO?BLEA [id number] [address] 2022-01-26 2022-01-26 Outpatient [facility] [id number] Univers 14:00:00 14:00:00 [facility] 2022-01-26 2022-01-26 Outpatient [facility] [id number] Univers 14:00:00 14:00:00 [facility] 2022-01-26 2022-01-26 Outpatient [facility] [id number] Univers 13:15:00 13:15:00 [facility] 2021-12-31 2021-12-31 [facility] 1.2.840.114 [id number] Univers 00:00:00 00:00:00 Management Maddie [place] 350.1.13.10 ity of [place].2.[place] [id number] [address] 2021-12-30 2021-12-30 Jorge [facility] 1.2.840.114 [id number] Univers 00:00:00 00:00:00 Management Maddie HEALTH 350.1.13.10 [facility] 4.2.7.2.686 [place] NATALIO?BLEA [id number] [address] MEDICAL OFFICE [facility] 2021-12-24 2021-12-24 Hospital BRIAN Blair 1.2.840.114 [id number] Univers 15:44:00 23:59:00 Encounter Yancy Arguelles 350.1.13.10 ity of [facility] 4.2.7.2.686 [place] as [id number] [facility] [address] [place] 2021-12-24 2021-12-24 [facility] [id number] Univers 00:00:00 23:59:00 YANCY [facility] 2021-12-22 2021-12-22 Outpatient [facility] [id number] Univers 13:00:00 14:19:55 MADDIE [facility] 2021-12-22 2021-12-22 [facility] 1.2.840.114 [id number] Univers 13:00:00 14:19:55 Visit Maddie [facility] 350.1.13.10 it y of [place] 4.2.7.2.686 [place] as NATALIO?BLEA [phone] [address] MEDICAL OFFICE [facility] 2021-12-19 2021-12-19 Outpatient [facility] [id number] Univers 15:30:00 15:30:00 SARAH [facility] 2021-11-01 2021-11-01 Orders Doctor BENITEZ 1.2.840.114 [id number] Univers 00:00:00 00:00:00 Only Unassigned, SUSAN 350.1.13.10 [place] of [place] [facility] 4.2.7.2.686 [place] as [id number] [facility] [address] [place] 2021-10-24 2021-10-24 Office Lali [facility] 1.2.840.114 [id number] Univers 13:30:00 14:00:00 Visit [facility] 350.1.13.10 it y of [place] 4.2.7.2.686 C[place] as NATALIO?BLEA [id number] [address] MEDICAL OFFICE [facility] 2021-10-24 2021-10-24 Outpatient [facility] [id number] Univers 13:30:00 13:30:00 JUAN CARLOS ity [facility] 2021-10-24 2021-10-24 Orders Doctor EMMANUEL 1.2.840.114 [id number] Univers 00:00:00 00:00:00 Only UnassignedSUSAN 350.1.13.10 ity of [place] [facility] 4.2.7.2.686 [facility] as [id number] [address] 2019-02-01 2019-02-01 Emergency Rafita Bui [facility] 1.2.840.1 14 [id number] 16:31:58 22:14:00 Corey Lant[place] 350.1.13.10 [place] 4.2.7.2.686 [place] [id number] 084 Results Test Description Test Time Test Comments Results Result Comments Source ANTI-NUCLEAR ANTIBODY SCREEN 2022-12-25 22:09:50 Test Item Value Reference Range Interpretation Comme nts JORGE (test code = 7540243291) Negative Negative JEANNE (test code = JEANNE) Negative: ?No Anti-Nuclear Antibodies detected by IFA. Positive: ?JORGE IFA screen performed with a 1:80 dilution in adults and a 1:40 dilution in pediatrics. ?A titer is performed and reported separately when the JORGE is "Positive" or when "Cytoplasmic staining is observed." Lab Interpretation (test code = Normal 17411-6) [facility]CV[facility] BY QUANTITATIVE NAAT 2022-12-25 21:04:10 Test Item Value Reference Range Interpretation Comments HCV Quantitative Not Detected Not Detected Interpretation (test code = 6373262933) JEANNE (test code = JEANNE) The Aptima HCV Quant Dx assay is an FDA-approved real-time business development analyst-mediated amplification (TMA) test used for both detection [...] indicated. Lab Interpretation Normal (test code = 12678-8) [facility] Center[facility]HEUM[facility]OID [id number] 15:11:32 Test Item Value Reference Range Interpretation Comments RF (test code = See_Comment [Automated message] 4422788630) The system VBI Vaccines generated this result transmitted ref erence range: <20 IU/m L. The reference range was not used to int erpret this result as normal/abnormal . Lab Interpretation (test Normal code = 28880-5) [facility] A VIRUS ANTIBODY [id number] 01:20:23 Test Item Value Reference Range Interpretation Comments HAVM 0.01 Semi-Quantitative (test code = 41580-2) JEANNE (test code = HAVAb IgM Interpretative JEANNE) Information: Reactive greater than or equal to 1.2 Biotin has been reported to cause a negative bias, interpret results relative to patient's use of biotin. [facility] B SURFACE [id number] 01:15:26 Test Item Value Reference Range Interpretation Comments HBsAg Semi-Quantitative (test code = 0.08 Negative 5195-3) [facility] MET[facility]OLIC PANEL ([id number])2022-12-23 23:05:19 Test Item Value Reference Range Interpretation Comments NA (test code = 134 mmol/L 135-145 L 2122101221) K (test code = 5.1 mmol/L 3.5-5.0 H 9680815812) CL (test code = 102 mmol/L 98-108 8132913507) CO2 TOTAL (test code = 20 mmol/L 23-31 L 8205311162) AGAP (test code = 12 2-16 4913350925) BUN (test code = 12 mg/dL 7-23 9380083777) GLUCOSE (test code = 593 mg/dL 70-110 HH 1850997641) CREATININE (test code = 1.06 mg/dL 0.60-1.25 2881263349) TOTAL BILI (test code = 0.5 mg/dL 0.1-1.5 4441719766) CALCIUM (test code = 8.8 mg/dL 8.6-10.6 4746425942) T PROTEIN (test code = 6.8 g/dL 6.3-8.2 5122084869) ALBUMIN (test code = 3.9 g/dL 3.5-5.0 2416270427) ALK PHOS (test code = 160 U/L 34-122 H 8041218097) ALTv (test code = 17 U/L 5-50 1742-6) AST(SGOT) (test code = 16 U/L 13-40 9775018194) eGFR (test code = 70.3 mL/min/1.73m2 1676951736) JEANNE (test code = JEANNE) Association of [...] tests). Lab Interpretation Abnormal (test code = 02451-3) [facility]. METABOLIC PANEL (45689)2022-12-23 23:05:19 Test Item Value Reference Range Interpretation Comments NA (test code = 134 mmol/L 135-145 L 4899103741) K (test code = 5.1 mmol/L 3.5-5.0 H 6427999188) CL (test code = 102 mmol/L 98-108 1769895452) CO2 TOTAL (test code = 20 mmol/L 23-31 L 6508308465) AGAP (test code = 12 2-16 8298471024) BUN (test code = 12 mg/dL 7-23 6518162039) GLUCOSE (test code = 593 mg/dL 70-110 HH 4393410983) CREATININE (test code = 1.06 mg/dL 0.60-1.25 3480070104) TOTAL BILI (test code = 0.5 mg/dL 0.1-1.3 2327417336) CALCIUM (test code = 8.8 mg/dL 8.6-10.6 9968047231) T PROTEIN (test code = 6.8 g/dL 6.3-8.2 4140516456) ALBUMIN (test code = 3.9 g/dL 3.5-5.0 5972174801) ALK PHOS (test code = 160 U/L 34-122 H 9135478593) ALTv (test code = 17 U/L 5-50 1742-6) AST(SGOT) (test code = 16 U/L 13-40 8823930716) eGFR (test code = 70.3 mL/min/1.73m2 1127513984) JEANNE (test code = JEANNE) Association of [...] tests). Lab Interpretation Abnormal (test code = 80571-6) [facility]2 AG-AB WITH [id number] 22:59:45 Test Item Value Reference Range Interpretation Comments HIV 0.10 Negative Semi-quantitative (test code = 78353-6) JEANNE (test code = Non-reactive for HIV-1 JEANNE) antigen and HIV-1/HIV-2 antibodies. ?No laboratory evidence of HIV infection. ?Repeat in 2-4 weeks if acute HIV infection is suspected. [facility] CenterGLYCOSYLATED HEMOGLOBIN (A1C)2022-12-23 22:12:38 Test Item Value Reference Range Interpretation Comments HGB A1C (test code = 4.0-5.7 H 4548-4) JEANNE (test code = JEANNE) Reference RangesNormal: <5.7%Prediabetes: 5.7 - 6.4%Diabetes: > 6.5% Lab Interpretation (test Abnormal code = 77030-8) [facility]OGLOBIN (A1C)2022-12-23 22:12:38 Test Item Value Reference Range Interpretation Comments HGB A1C (test code = 4.0-5.7 H 4548-4) JEANNE (test code = JEANNE) Reference RangesNormal: <5.7%Prediabetes: 5.7 - 6.4%Diabetes: > 6.5% Lab Interpretation (test Abnormal code = 50247-6) [facility] CenterSEDIMENTATION [id number] 21:43:13 Test Item Value Reference Range Interpretation Comments ESR (test code = 16 See_Comment H [Automated message] 53316-7) The system VBI Vaccines generated this result transmitted ref erence range: 0 - 10 m m/HR. The reference r arleth was not used to interpret this result as normal/abnor mal. Lab Interpretation (test Abnormal code = 85923-9) [facility] WITH [id number] 21:11:10 Test Item Value Reference Range Interpretation Comments WBC (test code = 4.26 See_Comment [Automated 7690-2) message] The sy stem which generated this [...] RDW-SD (test code = 48.0 fL 38.5-51.6 93277-7) RDW-CV (test code = 15.8 % 12.1-15.4 H 788-0) PLT (test code = 229 See_Comment [Automated 777-3) message] The sy stem which generated this result transmitted reference range : 150 - 328 10*3/ ?L. The reference r arleth was not used to interpret this result as normal/abnormal . MPV (test code = 11.8 fL 9.8-13.0 12702-6) NRBC/100 WBC (test 0.0 See_Comment [Automat ed code = 9743616982) message] The system which generated this result transmitted reference range : 0.0 - 10.0 /100 WBCs. The refer ence range was not u sed to interpret th is result as normal/abnormal . NRBC x10^3 (test code See_Comment [Auto mated = 4180062592) message] The s ystem which generated this result transmitted reference range : 10*3/?L. The reference range was not used to interpret this result as normal/abnormal . GRAN MAT (NEUT) % 60.6 % (test code = 770-8) IMM GRAN % (test code 0.20 % = 7103630796) LYMPH % (test code = 25.6 % 736-9) MONO % (test code = 9.6 % 5905-5) EOS % (test code = 3.3 % 713-8) BASO % (test code = 0.7 % 706-2) GRAN MAT x10^3(ANC) 2.58 10*3/uL 1.99-6.95 (test code = 7756916646) IMM GRAN x10^3 (test 0.00-0.06 code = 0340565798) LYMPH x10^3 (test code 1.09 10*3/uL 1.09-3.23 = 731-0) MONO x10^3 (test code 0.41 10*3/uL 0.36-1.02 = 742-7) EOS x10^3 (test code = 0.14 10*3/uL 0.06-0.53 711-2) BASO x10^3 (test code 0.03 10*3/uL 0.01-0.09 = 704-7) Lab Interpretation Abnormal (test code = 64143-6) [facility] WITH [id number] 21:11:10 Test Item Value Reference Range Interpretation Comments WBC (test code = 4.26 See_Comment [Automated 9390-2) message] The sy stem which generated this result transmitted reference range : 4.20 - 10.70 10*3/?L. The reference range was not used to interpret this result as normal/abnormal . RBC (test code = 4.46 See_Comment [Automated 039-8) message] The sy stem which generated this [...] RDW-SD (test code = 48.0 fL 38.5-51.6 84156-7) RDW-CV (test code = 15.8 % 12.1-15.4 H 788-0) PLT (test code = 229 See_Comment [Automated 777-3) message] The sy stem which generated this result transmitted reference range : 150 - 328 10*3/ ?L. The reference r arleth was not used to interpret this result as normal/abnormal . MPV (test code = 11.8 fL 9.8-13.0 73944-2) NRBC/100 WBC (test 0.0 See_Comment [Automat ed code = 5091646071) message] The system which generated this result transmitted reference range : 0.0 - 10.0 /100 WBCs. The refer ence range was not u sed to interpret th is result as normal/abnormal . NRBC x10^3 (test code See_Comment [Auto mated = 0472983426) message] The s ystem which generated this result transmitted reference range : 10*3/?L. The reference range was not used to interpret this result as normal/abnormal . GRAN MAT (NEUT) % 60.6 % (test code = 770-8) IMM GRAN % (test code 0.20 % = 6129494025) LYMPH % (test code = 25.6 % 736-9) MONO % (test code = 9.6 % 5905-5) EOS % (test code = 3.3 % 713-8) BASO % (test code = 0.7 % 706-2) GRAN MAT x10^3(ANC) 2.58 10*3/uL 1.99-6.95 (test code = 9628695270) IMM GRAN x10^3 (test 0.00-0.06 code = 0449832071) LYMPH x10^3 (test code 1.09 10*3/uL 1.09-3.23 = 731-0) MONO x10^3 (test code 0.41 10*3/uL 0.36-1.02 = 742-7) EOS x10^3 (test code = 0.14 10*3/uL 0.06-0.53 711-2) BASO x10^3 (test code 0.03 10*3/uL 0.01-0.09 = 704-7) Lab Interpretation Abnormal (test code = 38366-6) [facility] ([facility]ATED)2022-07-11 03:15:08 Test Item Value Reference Range Interpretation Comments POCT GLU (test code = 6157551001) 232 mg/dL 70-110 H Lab Interpretation (test code = Abnormal 96604-2) [facility] WITH [id number] 00:31:00 Test Item Value Reference Range Interpretation [...] RDW-SD (test code = 47.3 fL 38.5-51.6 12510-7) RDW-CV (test code = 14.9 % 12.1-15.4 788-0) PLT (test code = See_Comment [Automated 777-3) message] The sy stem which generated this result transmitted reference range : 150 - 328 10*3/ ?L. The reference r arleth was not used to interpret this result as normal/abnormal . MPV (test code = 11.2 fL 9.8-13.0 80107-4) NRBC/100 WBC (test See_Comment [Automat ed code = 5286118732) message] The system which generated this result transmitted reference range : 0.0 - 10.0 /100 WBCs. The refer ence range was not u sed to interpret th is result as normal/abnormal . NRBC x10^3 (test code See_Comment [Auto mated = 2403216825) message] The s ystem which generated this result transmitted reference range : 10*3/?L. The reference range was not used to interpret this result as normal/abnormal . GRAN MAT (NEUT) % 55.5 % (test code = 770-8) IMM GRAN % (test code 0.20 % = 3803287013) LYMPH % (test code = 27.4 % 736-9) MONO % (test code = 9.4 % 5905-5) EOS % (test code = 6.4 % 713-8) BASO % (test code = 1.1 % 706-2) GRAN MAT x10^3(ANC) 3.66 10*3/uL 1.99-6.95 (test code = 1990913488) IMM GRAN x10^3 (test 0.00-0.06 code = 6558595893) LYMPH x10^3 (test code 1.80 10*3/uL 1.09-3.23 = 731-0) MONO x10^3 (test code 0.62 10*3/uL 0.36-1.02 = 742-7) EOS x10^3 (test code = 0.42 10*3/uL 0.06-0.53 711-2) BASO x10^3 (test code 0.07 10*3/uL 0.01-0.09 = 704-7) Lab Interpretation Abnormal (test code = 75490-1) [facility] [id number] 00:20:20 Test Item Value Reference Interpretation Comments Range TROPONIN I (test 0.003 ng/mL See_Comment [Automated code = 6944925013) message] The system which generated this result [...] biotin. Lab Interpretation Normal (test code = 73180-1) [facility] Center[facility]AL [id number] 00:17:21 Test Item Value Reference Range Interpretation Comments NT-proBNP (test code 76 pg/mL See_Comment [Autom ated = 2599830934) message] The system which generated this result transmitted reference range : <=125. The reference range was not used to interpret this result as normal/abnormal . JEANNE (test code = JEANNE) Biotin has been reported to cause a negative bias, interpret results relative to patient's use of biotin. Lab Interpretation Normal (test code = 09755-4) [facility] MET[facility]OLIC PANEL (84005)2022-07-11 00:09:39 Test Item Value Reference Range Interpretation Comments NA (test code = 136 mmol/L 135-145 7807780641) K (test code = 5.2 mmol/L 3.5-5.0 H 8768474097) CL (test code = 103 mmol/L 98-108 1177544045) CO2 TOTAL (test code = 25 mmol/L 23-31 4783835802) AGAP (test code = 2-16 3267314566) BUN (test code = 12 mg/dL 7-23 7015067720) GLUCOSE (test code = 298 mg/dL 70-110 H 1074784112) CREATININE (test code = 0.96 mg/dL 0.60-1.25 3543106368) TOTAL BILI (test code = 0.4 mg/dL 0.1-1.4 8101778423) CALCIUM (test code = 8.6 mg/dL 8.6-10.6 2486807400) T PROTEIN (test code = 7.5 g/dL 6.3-8.2 8689449149) ALBUMIN (test code = 4.0 g/dL 3.5-5.0 2827438261) ALK PHOS (test code = 132 U/L 34-122 H 3934568320) ALTv (test code = 11 U/L 5-50 1741-6) AST(SGOT) (test code = 14 U/L 13-40 7565975438) eGFR (test code = mL/min/1.73m2 1397993966) JEANNE (test code = JEANNE) Association of [...] tests). Lab Interpretation Abnormal (test code = 67205-6) [facility] Test Item Value Reference Range Interpretation Comments LIPASE (test code = 4244922798) 86 U/L 0-220 Lab Interpretation (test code = Normal 41989-1) [facility] [id number] 00:02:17 Test Item Value Reference Range Interpretation Comments APTT Patient (test See_Comment [Automat ed code = 3173-2) message] The system which generated this result transmitted reference range : 23 - 38 Seconds . The reference range was not used to interpr et this result as normal/abnormal . JEANNE (test code = JEANNE) The [facility] patient population mean normal value for aPTT is 30 seconds. Lab Interpretation Normal (test code = 81363-7) [facility] / [id number] 00:00:17 Test Item Value Reference Range Interpretation [...] tions. Lab Interpretation (test Normal code = 51549-9) [facility] A1C [id number] 19:28:00 Test Item Value Reference Range Interpretation Comments POCT HBA1C (test code = 4548-4) 14.0 % 4-6 A Lab Interpretation (test code = Abnormal 05622-8) [facility] Notes Date/Time Note Provider Source 2023-02-09 08:40:43 [id number]:40:43Formatting of Tika guido [facility] [employer] this note is different from the DIRECT CUSTOMER SERVICE REPRESENTATIVE original.Images from the original note were not included.Requested Renewals Name from pharmacy: TOPIRAMATE 50MG Will file in chart as: TOPIRAMATE 50 mg tablet Sig: TAKE 1 TABLET BY MOUTH EVERY DAY Disp: 30 tablet Refills: 1 Start: 02/08/2023 Class: eRX Last ordered: 5 months ago (09/07/2022) by Juan Carlos Escalera MD Last refill: 09/07/2022 Rx #: [id number] Neurology: Anticonvulsants-Topiramate Failed 02/08/2023 04:34 PM Protocol Details Manual Review: Forward refill prescription to provider if patient has had any seizure activity or since last office visit Topiramate in normal range and within 360 days Recent VisitsDate Type Provider Dept 02/04/23 Office Visit Juan Carlos Escalera MD [facility] 12/23/22 Office Visit Sarah Stewart PA [facility] 12/09/22 Office Visit Juan Carlos Escalera MD [facility] 07/10/22 Office Visit Sarah Stewart PA [facility] 06/18/22 Office Visit Juan Carlos Escalera MD [facility] 03/11/22 Office Visit Juan Carlos Escalera MD [facility] 01/26/22 Office Visit Juan Carlos Escalera MD [facility] 12/22/21 Office Visit Maddie Russo PA-C [facility] 10/24/21 Office Visit Juan Carlos Escalera MD [facility] Showing recent visits within past 540 days with a meds authorizing provider and meeting all other requirementsFuture AppointmentsNo visits were found meeting these conditions.Showing future appointments within next 150 days with a meds authorizing provider and meeting all other requirements [id number] encounter [id number]:40:51Telephone encounter [id number] for patient [id number] M Fisher [id number] 8:40:[id number]|1.2 .[id number] 2023-01-20 16:02:31 [id number]:02:31Formatting of Jenny [facility]Prem[facility] this note might be different from the original.Received a Medical Clearance Request from [facility] for "Possible Prostate Surgery" requesting Provider signature.Placed in Provider box. [id number] encounter [id number]:04:19Telephone encounter [id number] for patient [id number] M [id number] 6:04:[id number]|1.2 .[id number]
[2023-05-08] MEDS ORDERED: CYCLOBENZAPRINE 10 MG TAB ONE (23:43)
[2023-05-08] MEDS ORDERED: PROMETHAZINE 25 MG TABLET ONE (23:44)
[2023-05-08] MEDS ORDERED: MORPHINE 4 MG/ML SYR ONE (23:44)
[2023-05-08] MEDS ORDERED: KETOROLAC 30 MG/ML INJ ONE (23:44)
[2023-05-09] MEDS ORDERED: HYDROCODONE/APAP 10/325 TAB ONE (01:10)
[2023-05-09 02:24] LABS: Absolute Lymphocytes (CBC) 1.8 K/uL (0.7-4.9); Hematocrit 31.6 % (39.6-49.0); Lymphocytes % 27.4 % (15.3-44.8); MCV 82.4 fL (80-100); MPV 7.6 fL (7.6-11.3); Platelets 369 thou/uL (152-406); RBC Red Blood Cell Count 3.84 M/uL (4.33-5.43)
[2023-05-09 02:29] LABS: Protime INR 1.15
[2023-05-09 02:44] LABS: Albumin 3.1 g/dL (3.4-5.0); Bilirubin Direct 0.1 mg/dL (0-0.2); Bilirubin Indirect, Calculated 0.2 mg/dL (0.2-0.8); Bilirubin Total 0.3 mg/dL (0.2-1.0); Magnesium 2.1 mg/dL (1.6-2.4); Potassium 3.7 mEq/L (3.5-5.1); Troponin High Sensitivity 7.1 pg/mL (<58.9)
--- NOTE | 2023-05-09 04:09 | ER ---
Nurse's Notes [facility] Name: Trever Jay Age: 63 yrs Sex: Male : 1960 Arrival Date: 05/08/2023 Time: 23:15 Bed 6 Private MD: Diagnosis: Muscle weakness (generalized);Physical debility Presentation: 05/08 23:22 Chief complaint: EMS states: called out for back pain and left neck pain/left arm pain. km8 Coronavirus screen: Client denies travel out of the [place] in the last 14 days. Ebola Screen: No symptoms or risks identified at this time. Initial Sepsis Screen: Does the patient meet any 2 criteria? No. Patient's initial sepsis screen is negative. Does the patient have a suspected source of infection? No. Patient's initial sepsis screen is negative. Risk Assessment: Do you want to hurt yourself or someone else? Patient reports no desire to harm self or others. Onset of symptoms is unknown. 23:22 Method Of Arrival: EMS: [facility] km8 23:22 Acuity: ANAMARIA 3 km8 Triage Assessment: 23:23 General: Appears in no apparent distress. uncomfortable, Behavior is calm, cooperative, km8 appropriate for age. Pain: Complains of pain in back, left arm and left sternocleidomastoid Pain currently is 10 out of 10 on a pain scale. EENT: No signs and/or symptoms were reported regarding the EENT system. Neuro: Randolph Agitation-Sedation Scale (RASS): 0 - Alert and Calm Level of Consciousness is awake, alert, obeys commands, Oriented to person, place, time, situation, Reports numbness in left arm. Cardiovascular: Denies chest pain, shortness of breath, Capillary refill < 3 seconds Patient's skin is warm and dry. Respiratory: Airway is patent Respiratory effort is even, unlabored, Respiratory pattern is regular, symmetrical. GI: No signs and/or symptoms were reported involving the gastrointestinal system. : No signs and/or symptoms were reported regarding the genitourinary system. Derm: Skin is intact, is healthy with good turgor, Skin is dry, Skin is pink, warm \T\ dry. normal, Skin temperature is warm surgical site to anterior neck. Musculoskeletal: No signs and/or symptoms reported regarding the musculoskeletal system. Range of motion: intact in all extremities. Historical: - Allergies: 23:23 Ibuprofen; km8 23:23 metformin; km8 - PMHx: 23:23 Anxiety; Asthma; Chronic pain; depressive disorder; Diabetes - NIDDM; diverticulosis; km8 fatty liver; GERD; Hepatitis; High Cholesterol; incontinence; neuropathy; Osteoporosis; overactive bladder; - PSHx: 23:23 Left knee replacement; km8 - Immunization history:: Adult Immunizations unknown. - Social history:: Smoking status: Patient denies any tobacco usage or history of. Patient/guardian denies using alcohol, street drugs. - Family history:: not pertinent. Screenin:25 [facility] ED Fall Risk Assessment (Adult) History of falling in the last 3 months, 8 including since admission No falls in past 3 months (0 pts) Confusion or Disorientation No (0 pts) Intoxicated or Sedated No (0 pts) Impaired Gait Yes (1 pt) Mobility Assist Device Used No (0 pt) Altered Elimination No (0 pt) Score/Fall Risk Level 0 - 2 = Low Risk Oriented to surroundings, Maintained a safe environment, Educated pt \T\ family on fall prevention, incl call for assistance when getting out of bed, Assessed \T\ reinforced patient's understanding of fall precautions. Abuse screen: Denies threats or abuse. Denies injuries from another. Nutritional screening: No deficits noted. Tuberculosis screening: No symptoms or risk factors identified. Assessment: 23:25 General: see triage notes/assessment. 8 05/09 00:39 Reassessment: Patient appears in no apparent distress at this time. No changes from [facility] previously documented assessment. Patient and/or family updated on plan of care and expected duration. Pain level reassessed. Patient is alert, oriented x 3, equal unlabored respirations, skin warm/dry/pink. 03:38 Reassessment: Patient appears in no apparent distress at this time. Patient and/or [facility] family updated on plan of care and expected duration. Pain level reassessed. Patient is alert, oriented x 3, equal unlabored respirations, skin warm/dry/pink. Patient states symptoms have improved. 04:31 Reassessment: Patient appears in no apparent distress at this time. No changes from [facility] previously documented assessment. Patient and/or family updated on plan of care and expected duration. Pain level reassessed. Patient is alert, oriented x 3, equal unlabored respirations, skin warm/dry/pink. Vital Signs: 05/08 23:22 BP 133 / 95; Pulse 62; Resp 18; Temp 98.6(O); Pulse Ox 97% on R/A; Pain 10/10; km8 23:35 BP 146 / 90; Pulse 67; Resp 16; Pulse Ox 98% on R/A; km8 05/09 00:30 BP 139 / 94; Pulse 57; Resp 16; Pulse Ox 100% ; km8 00:54 Weight 77.56 kg (R); jb4 01:00 BP 161 / 92; Pulse 61; Resp 18; Pulse Ox 100% ; km8 01:30 BP 139 / 86; Pulse 57; Resp 16; Pulse Ox 99% on R/A; km8 02:00 BP 143 / 83; Pulse 58; Resp 16; Pulse Ox 99% on R/A; km8 02:30 BP 132 / 82; Pulse 56; Resp 16; Pulse Ox 99% ; km8 03:00 BP 109 / 77; Pulse 57; Resp 16; Pulse Ox 100% on R/A; km8 03:30 BP 115 / 78; Pulse 56; Resp 18; Pulse Ox 100% on R/A; km8 04:00 BP 127 / 77; Pulse 53; Resp 16; Pulse Ox 100% on R/A; km8 04:30 BP 123 / 78; Pulse 56; Resp 16; Pulse Ox 100% on R/A; km8 05/08 23:22 Pain Scale: Adult km8 [place] Coma Score: 05/08 23:25 Eye Response: spontaneous(4). Motor Response: obeys commands(6). Verbal Response: km8 oriented(5). Total: 15. ED Course: 23:21 Patient arrived in ED. km8 23:22 Chasity Barr, RN is Primary Nurse. km8 23:23 Triage completed. km8 23:23 Arm band placed on right wrist. km8 23:25 Patient has correct armband on for positive identification. Bed in low position. Call km8 light in reach. Side rails up X2. Client placed on continuous cardiac and pulse oximetry monitoring. NIBP monitoring applied. Door closed. Noise minimized. 23:25 Patient maintains SpO2 saturation greater than 95% on room air. km8 23:26 Grady Duvall MD is Attending Physician. sp4 05/09 01:34 XRAY Chest (1 view) In Process Unspecified. EDMS 01:37 CT Head C Spine In Process Unspecified. EDMS 04:07 Maikel Estevez MD is Hospitalizing Provider. sp4 04:32 No provider procedures requiring assistance completed. km8 04:33 Provided Education on: admission process. km8 04:57 Patient admitted, IV remains in place. km8 Administered Medications: 05/08 23:36 Drug: Ketorolac IM 60 mg IM once Route: IM; Site: right deltoid; km8 05/09 00:40 Follow up: Response: No adverse reaction km8 05/08 23:36 Drug: morphine IM 4 mg IM once Route: IM; Site: right deltoid; km8 05/09 00:40 Follow up: Response: No adverse reaction km8 05/08 23:36 Drug: Promethazine PO 25 mg PO once Route: PO; km8 05/09 00:40 Follow up: Response: No adverse reaction km8 05/08 23:36 Drug: Cyclobenzaprine PO 10 mg PO once Route: PO; km8 05/09 00:40 Follow up: Response: No adverse reaction km8 00:58 Drug: [place] PO 10 mg-325 mg 1 tabs PO once Route: PO; jb4 02:00 Follow up: Response: No adverse reaction km8 Medication: 04:32 VIS not applicable for this client. km8 Outcome: 04:09 Decision to Hospitalize by Provider. sp4 05:03 Admitted to Med/surg accompanied by tech, family with patient, via stretcher, room 206, km8 with chart, Report called to NATHALIE Johnston 05:03 Condition: stable 05:12 Patient left the ED. km8 Signatures: Dispatcher [employer] Onur Madera, RN RN Grady Carlin MD MD sp4 Marx, Katie, RN RN km8 Corrections: (The following items were deleted from the chart) 03:38 03:38 Reassessment: Patient appears in no apparent distress at this time. No changes km8 from previously documented assessment. Patient and/or family updated on plan of care and expected duration. Pain level reassessed. Patient is alert, oriented x 3, equal unlabored respirations, skin warm/dry/pink. km8 04:59 05/08 23:23 Derm: Skin is intact, is healthy with good turgor, Skin is dry, Skin is km8 pink, warm \T\ dry. normal, Skin temperature is warm km8
--- NOTE | 2023-05-09 04:09 | EDPHYS ---
Physician Documentation [facility] Name: Trever Jay Age: 63 yrs Sex: Male : 1960 Arrival Date: 05/08/2023 Time: 23:15 Bed 6 Private MD: ED Physician Grady Duvall HPI: 05/08 23:26 This 63 yrs old Male presents to ER via EMS with complaints of pain . sp4 05/09 00:52 This very pleasant 63-year-old male presents with worsening left shoulder pain left sp4 lower extremity pain secondary to immobility. Mr. Galan's complains of left shoulder pain primarily but also left lower extremity pain. EMS reports patient's blood sugar was elevated. Patient has history of admission on 04/26/2023 here at this hospital. Patient has history of insulin-dependent diabetes, chronic pain, hyperlipidemia, dementia. And patient presented with left-sided weakness. Patient was admitted for left-sided weakness and decreased sensation to rule out CVA, severe central spinal stenosis C3-C4, deconditioning and generalized weakness, UTI right upper lung pneumonia, balanitis phimosis and yeast infection, diabetes mellitus type 2 with hyperglycemia, chronic pain, dementia, GERD, hyperlipidemia. Patient CT head was negative, CT angiography was negative for large vessel occlusion, neurology consult and MRI, MRI results were negative, MRA of the neck was negative, MRI C-spine severe central spinal stenosis at C3-C4, PT OT consults were done, Dr. Ospina recommended consultation with spinal surgeon for central spinal stenosis. Dr. Rip looney recommended transfer to [facility] for surgery. And patient was accepted for transfer. UTI and pneumonia were treated with IV antibiotics Rocephin and Zithromax. Also Diflucan was given for balanitis. Patient's medications include gabapentin, Hernando, tramadol, lovastatin, pantoprazole, tamsulosin, amitriptyline, finasteride, glipizide, mirabegron, topiramate, verapamil, losartan, metoprolol, insulin and meloxicam. Primary physician is Dr. Hernandez . 06:41 . sp4 Historical: - Allergies: 05/08 23:23 Ibuprofen; km8 23:23 metformin; km8 - PMHx: 23:23 Anxiety; Asthma; Chronic pain; depressive disorder; Diabetes - NIDDM; diverticulosis; km8 fatty liver; GERD; Hepatitis; High Cholesterol; incontinence; neuropathy; Osteoporosis; overactive bladder; - PSHx: 23:23 Left knee replacement; km8 - Immunization history:: Adult Immunizations unknown. - Social history:: Smoking status: Patient denies any tobacco usage or history of. Patient/guardian denies using alcohol, street drugs. - Family history:: not pertinent. ROS: 05/09 06:41 Constitutional: Negative for fever, chills, and weight loss, positive generalized sp4 weakness positive left arm and left leg pain All other systems are negative, Exam: 06:41 Constitutional: This is a well developed, well nourished patient who is awake, alert, sp4 and in no acute distress. Physically debilitated male. Nonambulatory. Head/Face: Normocephalic, atraumatic. Eyes: Pupils equal round and reactive to light, extra-ocular motions intact. Lids and lashes normal. Conjunctiva and sclera are not injected. Cornea within normal limits. Periorbital areas with no swelling, redness, or edema. ENT: Nares patent. No nasal discharge, no septal abnormalities noted. Tympanic membranes are normal and external auditory canals are clear. Oropharynx with no redness, swelling, or masses, exudates, or evidence of obstruction, uvula midline. Mucous membranes moist. Neck: Trachea midline, no thyromegaly or masses palpated, and no cervical lymphadenopathy. Supple, full range of motion without nuchal rigidity, or vertebral point tenderness. Chest/axilla: Normal chest wall appearance and motion. Nontender with no deformity. No lesions are appreciated. Cardiovascular: Regular rate and rhythm with a normal S1 and S2. No gallops, murmurs, or rubs. Normal PMI, no JVD. No pulse deficits. Respiratory: Lungs have equal breath sounds bilaterally, clear to auscultation and percussion. No rales, rhonchi or wheezes noted. No increased work of breathing, no retractions or nasal flaring. Abdomen/GI: Soft, non-tender, with normal bowel sounds. No distension or tympany. No guarding or rebound. No evidence of tenderness throughout. Back: No spinal tenderness. No costovertebral tenderness. Male : Normal genitalia with no discharge or lesions. Skin: Warm, dry with normal turgor. Normal color with no rashes, no lesions, and no evidence of cellulitis. MS/ Extremity: Pulses equal, no cyanosis. Neurovascular intact. Full, normal range of motion. Left arm and left leg perceptibly weaker. Days has been noted on prior exam. No changes since prior exam Neuro: Awake and alert, GCS 15, oriented to person, place, time, and situation. Cranial nerves II-XII grossly intact. Motor strength 5/5 in all extremities. Sensory grossly intact. Psych: Awake, alert, with orientation to person, place and time. Behavior, mood, and affect are within normal limits 06:41 ECG was reviewed by the Attending Physician. EKG time 0 236, EKG rate [address] elevation or depression Vital Signs: 05/08 23:22 BP 133 / 95; Pulse 62; Resp 18; Temp 98.6(O); Pulse Ox 97% on R/A; Pain 10/10; km8 23:35 BP 146 / 90; Pulse 67; Resp 16; Pulse Ox 98% on R/A; [facility] 05/09 00:30 BP 139 / 94; Pulse 57; Resp 16; Pulse Ox 100% ; [facility] 00:54 Weight 77.56 kg (R); 4 01:00 BP 161 / 92; Pulse 61; Resp 18; Pulse Ox 100% ; 8 01:30 BP 139 / 86; Pulse 57; Resp 16; Pulse Ox 99% on R/A; 8 02:00 BP 143 / 83; Pulse 58; Resp 16; Pulse Ox 99% on R/A; 8 02:30 BP 132 / 82; Pulse 56; Resp 16; Pulse Ox 99% ; km8 03:00 BP 109 / 77; Pulse 57; Resp 16; Pulse Ox 100% on R/A; 8 03:30 BP 115 / 78; Pulse 56; Resp 18; Pulse Ox 100% on R/A; 8 04:00 BP 127 / 77; Pulse 53; Resp 16; Pulse Ox 100% on R/A; km8 04:30 BP 123 / 78; Pulse 56; Resp 16; Pulse Ox 100% on R/A; [facility] 05/08 23:22 Pain Scale: Adult [facility] [place] Coma Score: 05/08 23:25 Eye Response: spontaneous(4). Motor Response: obeys commands(6). Verbal Response: km8 oriented(5). Total: 15. MDM: 23:33 Patient medically screened. sp4 05/09 06:44 Differential Diagnosis altered mental status, sepsis, flu. Data reviewed: vital signs, sp4 nurses notes, old medical records, lab test result(s), EKG, radiologic studies, plain films. ED course: CT - FINDINGS: SUPPORTIVE DEVICES: None. Suboptimal patient positioning and planes of reformation markedly limit assessment. HEAD: Brain: No evidence of intracranial hemorrhage, mass effect, midline shift, edema, or extra-axial fluid collection. Patchy areas of hypodensity are noted throughout the cerebral white matter most likely due to chronic microvascular ischemic changes. CSF Spaces: The ventricles and sulci are mildly enlarged consistent with mild global parenchymal volume loss. Skull: The calvarium is intact. Soft tissue: No evidence of scalp or soft tissue injury. Other: The imaged facial bones are intact. The globes and orbits are unremarkable. Mucous retention cyst within the right maxillary sinus. CERVICAL SPINE: Morphology: Normal vertebral body heights. Anterior cervical discectomy and fixation of C3-C4 without evidence of acute hardware complication. No identified fracture. Alignment: No traumatic listhesis. Fixator grade 1 anterolisthesis of C3-C4. Craniocervical Junction: Intact with degenerative change. Disc Levels: Mild multilevel spondylosis of the nonfixated levels. Other: Thickened appearance of the superior precervical soft tissues, not appreciated on comparison MRI, with a few contain gas foci. No acute finding of the neck imaged lung apices. IMPRESSION: 1. No acute intracranial abnormality within the exam limitation. 2. No acute cervical osseous abnormality. 3. Thickened appearance of the superior precervical soft tissues without clear etiology, although the presence of small gas foci suggests layering debris within the upper digestive tract. The degree of thickening was not present on the recent comparison MRI. Consider direct visualization. . 06:53 Consideration of Admission/Observation Patient was admitted/placed on observation. sp4 Escalation of care including admission/observation considered. Management of patient was discussed with the following: Hospitalist: Discussed with admission team . 05/08 23:42 Order name: Glucose, Ancillary Testing; Complete Time: 00:14 EDMS 05/09 01:09 Order name: Basic Metabolic Panel; Complete Time: 03:59 sp4 05/09 01:09 Order name: CBC with Diff; Complete Time: 03:59 [facility] 05/09 01:09 Order name: LFT's; Complete Time: 03:59 [facility] 05/09 01:09 Order name: Magnesium; Complete Time: 03:59 [facility] 05/09 01:09 Order name: NT PRO-BNP; Complete Time: 03:59 [facility] 05/09 01:09 Order name: PT-INR; Complete Time: 03:59 [facility] 05/09 01:09 Order name: Troponin HS; Complete Time: 03:59 [facility] 05/09 01:09 Order name: XRAY Chest (1 view) [facility] 05/09 01:09 Order name: CT Head C Spine [facility] 05/09 01:09 Order name: EKG; Complete Time: 01:10 [facility] 05/09 04:41 Order name: CONS Physician Consult [facility] 05/09 04:51 Order name: Occupational Therapy Consult [facility] 05/08 23:27 Order name: Accucheck Blood Glucose; Complete Time: 23:36 [facility] 05/09 01:09 Order name: Cardiac monitoring; Complete Time: 02:34 [facility] 05/09 01:09 Order name: EKG - Nurse/Tech; Complete Time: 02:34 [facility] 05/09 01:09 Order name: IV Saline Lock; Complete Time: 02:06 [facility] 05/09 01:09 Order name: Labs collected and sent; Complete Time: 02:06 4 05/09 01:09 Order name: O2 Per Protocol; Complete Time: 02:06 [facility] 05/09 01:09 Order name: O2 Sat Monitoring; Complete Time: 02:06 4 EC:41 Rate is 57 beats/min. Rhythm is regular, Sinus bradycardia. QRS [place] is Normal. MS sp4 interval is normal. QRS interval is normal. QT interval is normal. No Q waves. T waves are Normal. No ST changes noted. Clinical impression: No evidence of ischemia. Interpreted by me. Reviewed by me. Administered Medications: 05/08 23:36 Drug: Ketorolac IM 60 mg IM once Route: IM; Site: right deltoid; [facility] 05/09 00:40 Follow up: Response: No adverse reaction [facility] 05/08 23:36 Drug: morphine IM 4 mg IM once Route: IM; Site: right deltoid; [facility] 05/09 00:40 Follow up: Response: No adverse reaction 05/08 23:36 Drug: Promethazine PO 25 mg PO once Route: PO; 8 05/09 00:40 Follow up: Response: No adverse reaction 8 05/08 23:36 Drug: Cyclobenzaprine PO 10 mg PO once Route: PO; 8 05/09 00:40 Follow up: Response: No adverse reaction 8 00:58 Drug: Hernando PO 10 mg-325 mg 1 tabs PO once Route: PO; jb4 02:00 Follow up: Response: No adverse reaction km8 Disposition Summary: 05/09/23 04:09 Hospitalization Ordered Notes: Hospitalization Status: Inpatient Admission sp4 Provider: Maikel Estevez sp4 Location: Telemetry/MedSurg (Inpatient) sp4 Condition: Stable sp4 Problem: new sp4 Symptoms: have improved sp4 Bed/Room Type: Standard sp4 Room Assignment: 206(05/09/23 04:47) rv1 Diagnosis - Muscle weakness (generalized) sp4 - Physical debility sp4 Forms: - Medication Reconciliation Form sp4 - SBAR form sp4 - Leadership Thank You Letter sp4 Signatures: Dispatcher [employer] Onur Madera RN RN jb4 Mariela Huggins rv1 Grady Duvall MD MD sp4 Chasity Barr RN RN km8 Corrections: (The following items were deleted from the chart) 04:47 04:09 sp4 rv1
--- NOTE | 2023-05-09 04:37 | P.HP ---
Certification for Inpatient Patient admitted to: Inpatient With expected LOS: <2 Midnights Patient will require the following post-hospital care: Rehabilitation Practitioner: I am a practitioner with admitting privileges, knowledge of patient current condition, hospital course, and medical plan of care. Services: Services provided to patient in accordance with Admission requirements found in Title 42 Section 412.3 of the Code of Federal Regulations Patient History Date of Service: 05/09/23 Reason for admission: falls, deconditioning History of Present Illness: 63-year-old male with a past medical history of degenerative joint disease [id number] diabetes mellitus depression, chronic pain, asthma, GERD, fatty liver, hepatitis, hyperlipidemia, incontinence, neuropathy, osteoporosis, overactive bladder, presents to the emergency room with left shoulder pain, and immobility, frequent falls. He reports unable to walk, chronic pain, and shooting pain down legs and arms. Patient was previously admitted with severe central spinal stenosis C3-C4 was transferred to [facility] with cervical decompression. Since previous hospital discharge patient has had worsening immobility, deconditioning, multiple falls. Patient had a prior MRI with severe central spinal stenosis C3-C4, and is not status post decompression. Previosuly was evaluated by PT OT, Dr. Ospina consulted. Prior admission, patient was also noted to have UTI and pneumonia and was treated with IV Rocephin and azithromycin. No reported chest pain, shortness of breath, edema, dizziness. Plan to admit for muscle weakness, generalized and physical due to debility, degenerative joint disease. CT cervical spine C3-C4 anterior fixation, mult levels of spondylosis, DDD, no acute fractures, CT head, no acute intracranial abnormality, chronic microvascular changes, ventricles mildly enlarged consistent with global parenchymal volume loss. Facial bones intact, mucous retention right maxillary sinus. CXR no acute cardiopulmonary disease.Laboratory evaluation microcytic anemia 10.1 31.6, no leukocytosis, elevated blood glucose 271, hypoalbuminemia 3.1, Allergies ibuprofen Allergy (Verified 05/09/23 05:20) heartburn metformin Allergy (Verified 05/09/23 05:20) Shortness of breath - Past Medical/Surgical History Diabetic: Yes -: HTN -: Insulin-dependent diabetes -: HLD -: hepatitis c -: CKD -: Dementia -: Chronic pain -: mult falls -: DDD -: knee replacement -: right knee pins Psychosocial/ Personal History: - Family History Mother -: Other (see notes) Notes: unknown - patient states no contact > 25 years Father -: Hypertension, Diabetes Notes: unknown - patient states no contact > 25 years - Social History Alcohol use: No CD- Drugs: No Caffeine use: Yes Review of Systems 10-point ROS is otherwise unremarkable (ROS negative unless listed per HPI) Physical Examination - Physical Exam General: Alert, In no apparent distress, Oriented x3, Other (severe deconditioning) HEENT: Atraumatic, Normocephalic, PERRLA Neck: Supple, 2+ carotid pulse no bruit, JVD not distended Respiratory: Clear to auscultation bilaterally, Normal air movement Cardiovascular: No edema, Normal pulses, Regular rate/rhythm Capillary refill: <2 Seconds Gastrointestinal: Normal bowel sounds, Soft and benign Musculoskeletal: No clubbing, No swelling, Other (generalized weakness, immobility) Integumentary: No rashes, No breakdown Neurological: Normal speech, Normal affect, Abnormal gait, Abnormal strength - Studies Laboratory Data (last 24 hrs) 05/09/23 05/09/23 05/09/23 01:57 01:57 01:57 WBC 6.50 Hgb 10.1 L Hct 31.6 L Plt Count 369 PT 12.6 H INR 1.15 Sodium 140 Potassium 3.7 BUN 18 Creatinine 1.16 Glucose 271 H Magnesium 2.1 Total Bilirubin 0.3 AST 8 L ALT 19 Alkaline Phosphatase 96 Assessment and Plan - Plan Assessment plan muscle weakness generalized Falls physical due to debility Patient was previously admitted with severe central spinal stenosis C3-C4 was transferred to [facility] with cervical decompression. Since previous hospital discharge patient has had worsening immobility, deconditioning, multiple falls. Patient had a prior MRI with severe central spinal stenosis C3- C4 with PT OT consults with Dr. Ospina consulted. CT cervical spine C3-C4 anterior fixation, mult levels of spondylosis, DDD, no acute fractures, CT head, no acute intracranial abnormality, chronic microvascular changes, ventricles mildly enlarged consistent with global parenchymal volume loss. Facial bones intact, mucous retention right maxillary sinus. CXR no acute cardiopulmonary disease. Fall precautions, PT OT consults degenerative joint disease Chronic pain Incontinence Neuropathy Osteoporosis Resume appropriate home meds Microcytic anemia Laboratory evaluation microcytic anemia 10.1 31.6, Trend H&H Hypoalbuminemia hypoalbuminemia 3.1, [id number] diabetes mellitus Accu-Cheks, sliding scale insulin no leukocytosis, elevated blood glucose 271, depression asthma GERD fatty liver hepatitis hyperlipidemia Resume appropriate home medications Full code DVT Lovenox Diet cardiac Discharge Plan: Other (rehab vs snf) Plan to discharge in: 48 Hours - Advance Directives Does patient have a Living Will: Yes Does patient have a Durable POA for Healthcare: No - Code Status/Comfort Care Code Status: Full Code Physician Review: Patient Assessed, Agree with Above Assessment and Plan Critical Care: No Time Spent Managing Pts Care (In Minutes): 50
[2023-05-09] MEDS ORDERED: ONDANSETRON 4 MG/2 ML VIAL IV PRN (05:09)
[2023-05-09] MEDS ORDERED: ACETAMINOPHEN 500 MG TAB PO PRN (05:09)
[2023-05-09 05:18] VITALS: BMI 27.6
[2023-05-09] MEDS ORDERED: MORPHINE 4 MG/ML SYR IV ONE (05:34)
[2023-05-09] MEDS ORDERED: PNEUMOCOCCAL VACCINE 0.5 ML IMVAC ONE (08:00)
[2023-05-09] MEDS ORDERED: POTASSIUM 25 MEQ EFFERV TAB PO ONE (08:00)
[2023-05-09] MEDS ORDERED: INFLUENZA VACCINE (for 6+ mo) 0.5 ML DOSE IMVAC ONE (08:00)
[2023-05-09] MEDS: HYDROCODONE/APAP 7.5/325 MG TAB PO PRN ×3 (08:52→20:32)
[2023-05-09] MEDS: ENOXAPARIN 40 MG/0.4 ML SQ SCH (08:53)
[2023-05-09] MEDS: INSULIN REGULAR (HUMAN) 100 UNIT/ML SQ SCH ×4 (08:54→20:32)
[2023-05-09 13:04] VITALS: O2SAT 97
[2023-05-10] MEDS: MORPHINE 2 MG/ML SYR IV PRN ×2 (01:26→09:00)
--- NOTE | 2023-05-10 05:51 | P.PN ---
Date of Service: 05/10/23 Subjective: Physical Exam: Vitals: reviewed GEN: Alert, oriented, weak, fatigued HEENT: Normal conjunctiva, sclera anicteric CV: Regular rate & rhythm, no edema Pulm: Nonlabored respiraitons, clear bilaterally ABD: Soft, nontender, nondistended MSK: generalized weakness, immobility Integumentary: No rashes Neuro: Normal speech, normal affect Problem List: Generalized Weakness Multiple recent falls Chronic pain degenerative joint disease NIDDM2 h/o Incontinence Osteoporosis depression asthma GERD fatty liver hepatitis c hyperlipidemia Plan: previously admitted with severe central spinal stenosis C3-C4 was transferred to [facility] with cervical decompression reports worsening mmobility, deconditioning, multiple falls since previous discharge CT cervical spine C3-C4 anterior fixation, mult levels of spondylosis, DDD, no acute fractures CT head, no acute intracranial abnormality, chronic microvascular changes, ventricles mildly enlarged consistent with global parenchymal volume loss prior MRI with severe central spinal stenosis C3-C4, and is not status post decompression Fall precautions PT / OT consulted Neurology consulted confirm home medications, restart as appropriate Accu-Cheks, sliding scale insulin DVT prophylaxis with lovenox PRN analgesics
[2023-05-10 06:34] LABS: Absolute Lymphocytes (CBC) 1.7 K/uL (0.7-4.9); Hematocrit 32.5 % (39.6-49.0); MCV 82.5 fL (80-100); MPV 8.4 fL (7.6-11.3); Platelets 420 thou/uL (152-406); RBC Red Blood Cell Count 3.94 M/uL (4.33-5.43)
[2023-05-10 06:49] LABS: Magnesium 1.9 mg/dL (1.6-2.4); Potassium 3.5 mEq/L (3.5-5.1)
[2023-05-10] MEDS ORDERED: POTASSIUM 25 MEQ EFFERV TAB PO ONE (09:00)
[2023-05-10] MEDS: ENOXAPARIN 40 MG/0.4 ML SQ SCH (09:01)
[2023-05-10] MEDS: INSULIN REGULAR (HUMAN) 100 UNIT/ML SQ SCH ×4 (09:01→20:24)
[2023-05-10] MEDS ORDERED: FENTANYL 25 MCG/PATCH TD ONE (11:19)
[2023-05-10] MEDS ORDERED: dexAMETHasone 4 MG/ML VIAL IV ONE (11:20)
[2023-05-10] MEDS: MORPHINE 4 MG/ML SYR IV PRN ×3 (11:56→20:22)
[2023-05-10] MEDS ORDERED: PNEUMOCOCCAL VACCINE 0.5 ML IMVAC ONE (12:00)
[2023-05-10] MEDS ORDERED: INFLUENZA VACCINE (for 6+ mo) 0.5 ML DOSE IMVAC ONE (12:00)
--- NOTE | 2023-05-10 12:51 | RAD REPORT ---
EXAM DESCRIPTION: RAD - Chest Single View - 05/09/2023 1:33 am CLINICAL HISTORY: CHEST PAIN TECHNIQUE: AP chest COMPARISON: None available for comparison FINDINGS: CHEST: Heart: The cardiomediastinal silhouette is within normal limits. Lungs: No focal consolidation. Decreased inspiration. Mediastinum: Unremarkable Pleura: No appreciable effusion. No pneumothorax. Bones: Old left clavicular fracture. IMPRESSION: 1. No acute cardiopulmonary disease. 2. Decreased inspiration. Electronically signed by: Luke Anderosn MD 05/09/2023 01:44 AM [employer] Due to temporary technical issues with the PACS/Fluency reporting system, reports are being signed by the in house radiologist without review as a courtesy to ensure prompt reporting. The interpreting r adiologist is fully responsible for the content of the report.
--- NOTE | 2023-05-10 12:52 | RAD REPORT ---
EXAM DESCRIPTION: CT - Head C Spine Mpr Wo Con - 05/09/2023 6:37 am CLINICAL HISTORY: Male, 63 years old, DECLINING STATE COMPARISON: Cervical spine MRI 04/28/2023, CT head 04/24/2023 TECHNIQUE: CT acquisition of the head without contrast. CT acquisition of the cervical spine without contrast. Coronal and sagittal reformats provided. This exam was performed according to departmental dose-optimization program which includes automated exposure control, adjustment of the mA and/or kV according to patient size, and/or use of iterative reconstruction technique. FINDINGS: SUPPORTIVE DEVICES: None. Suboptimal patient positioning and planes of reformation markedly limit assessment. HEAD: Brain: No evidence of intracranial hemorrhage, mass effect, midline shift, edema, or extra-axial flui d collection. Patchy areas of hypodensity are noted throughout the cerebral white matter most likely due to chronic microvascular ischemic changes. CSF Spaces: The ventricles and sulci are mildly enlarged consistent with mild global parenchymal volu me loss. Skull: The calvarium is intact. Soft tissue: No evidence of scalp or soft tissue injury. Other: The imaged facial bones are intact. The globes and orbits are unremarkable. Mucous retention c yst within the right maxillary sinus. CERVICAL SPINE: Morphology: Normal vertebral body heights. Anterior cervical discectomy and fixation of C3-C4 without evidence of acute hardware complication. No identified fracture. Alignment: No traumatic listhesis. Fixator grade 1 anterolisthesis of C3-C4. Craniocervical Junction: Intact with degenerative change. Disc Levels: Mild multilevel spondylosis of the nonfixated levels. Other: Thickened appearance of the superior precervical soft tissues, not appreciated on comparison M RI, with a few contain gas foci. No acute finding of the neck imaged lung apices. IMPRESSION: 1. No acute intracranial abnormality within the exam limitation. 2. No acute cervical osseous abnormality. 3. Thickened appearance of the superior precervical soft tissues without clear etiology, although t he presence of small gas foci suggests layering debris within the upper digestive tract. The degree o f thickening was not present on the recent comparison MRI. Consider direct visualization. Electronically signed by: Douglas Toledo MD 05/09/2023 01:49 AM ELEMENTARY EDUCATOR Due to temporary technical issues with the PACS/Fluency reporting system, reports are being signed by the in house radiologist without review as a courtesy to ensure prompt reporting. The interpreting r adiologist is fully responsible for the content of the report.
[2023-05-10] MEDS ORDERED: LORazepam 2 MG/ML VIAL IV ONE ×2 (16:18→18:35)
[2023-05-10] MEDS: HYDROCODONE/APAP 10/325 TAB PO SCH (20:22)
[2023-05-10] MEDS: GABAPENTIN 400 MG CAP PO SCH (20:23)
[2023-05-10] MEDS: RIVASTIGMINE TARTRATE 1.5 MG PO SCH (20:23)
[2023-05-10] MEDS: TRAMADOL HCL 50 MG TAB PO SCH (20:23)
[2023-05-10] MEDS: CYCLOBENZAPRINE 10 MG TAB PO SCH (20:23)
[2023-05-10] MEDS: MELOXICAM 7.5 MG TAB PO SCH (20:24)
[2023-05-10] MEDS: MIRTAZAPINE 15 MG TAB PO SCH (20:24)
[2023-05-10] MEDS: AMITRIPTYLINE 25 MG TAB PO SCH (20:24)
[2023-05-10] MEDS: ATORVASTATIN 20 MG TAB PO SCH (20:24)
[2023-05-10] MEDS ORDERED: HOME MED 1 EA UNK (Gabapentin [Gabapentin] 800 MG Tablet) PO SCH (21:00)
[2023-05-10] MEDS ORDERED: HOME MED 1 EA UNK (Lovastatin [Lovastatin] 40 MG Tablet) PO SCH (21:00)
[2023-05-10] MEDS ORDERED: HOME MED 1 EA UNK (Cyclobenzaprine Hcl [Flexeril] 5 MG Tablet) PO SCH (21:00)
[2023-05-10] MEDS ORDERED: RIVASTIGMINE TARTRATE 4.5 MG PO SCH (21:00)
[2023-05-10] MEDS ORDERED: HOME MED 1 EA UNK (Meloxicam [Meloxicam] 15 MG Tablet) PO SCH (21:00)
[2023-05-11] MEDS: MORPHINE 4 MG/ML SYR IV PRN ×4 (00:08→14:01)
[2023-05-11 04:03] LABS: Absolute Lymphocytes (CBC) 1.8 K/uL (0.7-4.9); MCV 83.4 fL (80-100); MPV 8.3 fL (7.6-11.3); Platelets 365 thou/uL (152-406); RBC Red Blood Cell Count 4.08 M/uL (4.33-5.43)
[2023-05-11 04:35] LABS: Magnesium 1.9 mg/dL (1.6-2.4); Potassium 3.9 mEq/L (3.5-5.1)
[2023-05-11] MEDS: INSULIN REGULAR (HUMAN) 100 UNIT/ML SQ SCH ×4 (07:30→21:23)
[2023-05-11] MEDS: GLIPIZIDE S.A. 5 MG TAB PO SCH ×2 (08:00→14:04)
[2023-05-11] MEDS: CYCLOBENZAPRINE 10 MG TAB PO SCH ×2 (08:26→20:36)
[2023-05-11] MEDS: PANTOPRAZOLE 40MG TABLET PO SCH (08:27)
[2023-05-11] MEDS: ENOXAPARIN 40 MG/0.4 ML SQ SCH (08:27)
[2023-05-11] MEDS: SOLIFENACIN SUCCIN 5 MG TAB PO SCH (08:27)
[2023-05-11] MEDS: GABAPENTIN 400 MG CAP PO SCH ×3 (08:28→20:36)
[2023-05-11] MEDS: TOPIRAMATE 25 MG TAB PO SCH (08:28)
[2023-05-11] MEDS ORDERED: HOME MED 1 EA UNK (Glipizide [Glipizide Xl] 10 MG Tab.Er.24) PO SCH (09:00)
[2023-05-11] MEDS ORDERED: [UNRECOGNIZED DRUG - OTHER] SQ SCH (09:00)
[2023-05-11] MEDS: HOME MED 1 EA UNK (Fenofibrate [Fenofibrate] 50 MG Capsule) PO SCH (09:00)
[2023-05-11] MEDS: METFORMIN HCL PO SCH (09:00)
[2023-05-11] MEDS: HYDROCODONE/APAP 10/325 TAB PO SCH ×5 (09:00→20:36)
[2023-05-11] MEDS ORDERED: HOME MED 1 EA UNK (Topiramate [Topiramate] 50 MG Tablet) PO SCH (09:00)
[2023-05-11] MEDS: SITAGLIPTIN PHOS PO SCH (09:00)
[2023-05-11] MEDS: [UNRECOGNIZED DRUG - OTHER] PO SCH (09:00)
[2023-05-11] MEDS ORDERED: INSULIN GLARGINE HUM REC ANLOG 100 UNIT/ML SQ SCH (09:00)
[2023-05-11] MEDS: INSULIN GLARGINE 100 UNIT/ML SQ SCH (09:00)
[2023-05-11] MEDS: RIVASTIGMINE TARTRATE 1.5 MG PO SCH ×3 (09:00→20:36)
[2023-05-11] MEDS: TRAMADOL HCL 50 MG TAB PO SCH ×3 (11:19→20:35)
[2023-05-11] MEDS: MIRTAZAPINE 15 MG TAB PO SCH (20:35)
[2023-05-11] MEDS: AMITRIPTYLINE 25 MG TAB PO SCH (20:35)
[2023-05-11] MEDS: ATORVASTATIN 20 MG TAB PO SCH (20:35)
[2023-05-11] MEDS: MELOXICAM 7.5 MG TAB PO SCH (20:36)
[2023-05-12 06:57] LABS: Absolute Lymphocytes (CBC) 1.8 K/uL (0.7-4.9); Hematocrit 32.5 % (39.6-49.0); Lymphocytes % 27.4 % (15.3-44.8); MCV 83.4 fL (80-100); MPV 8.2 fL (7.6-11.3); Platelets 319 thou/uL (152-406)
[2023-05-12 07:07] LABS: Magnesium 2.3 mg/dL (1.6-2.4); Potassium 3.5 mEq/L (3.5-5.1)
[2023-05-12] MEDS: INSULIN REGULAR (HUMAN) 100 UNIT/ML SQ SCH ×4 (07:30→21:45)
[2023-05-12] MEDS: GLIPIZIDE S.A. 5 MG TAB PO SCH (08:00)
[2023-05-12] MEDS: [UNRECOGNIZED DRUG - OTHER] PO SCH (09:00)
[2023-05-12] MEDS: SITAGLIPTIN PHOS PO SCH (09:00)
[2023-05-12] MEDS: HOME MED 1 EA UNK (Fenofibrate [Fenofibrate] 50 MG Capsule) PO SCH (09:00)
[2023-05-12] MEDS: METFORMIN HCL PO SCH (09:00)
[2023-05-12] MEDS: INSULIN GLARGINE 100 UNIT/ML SQ SCH (10:29)
[2023-05-12] MEDS: ENOXAPARIN 40 MG/0.4 ML SQ SCH (10:30)
[2023-05-12] MEDS: RIVASTIGMINE TARTRATE 1.5 MG PO SCH ×2 (10:31→21:00)
[2023-05-12] MEDS: SOLIFENACIN SUCCIN 5 MG TAB PO SCH (10:32)
[2023-05-12] MEDS: TOPIRAMATE 25 MG TAB PO SCH (10:32)
[2023-05-12] MEDS: TRAMADOL HCL 50 MG TAB PO SCH ×3 (10:33→21:45)
[2023-05-12] MEDS: PANTOPRAZOLE 40MG TABLET PO SCH (10:33)
[2023-05-12] MEDS: CYCLOBENZAPRINE 10 MG TAB PO SCH ×2 (10:33→21:43)
[2023-05-12] MEDS: HYDROCODONE/APAP 10/325 TAB PO SCH ×4 (10:34→21:41)
[2023-05-12] MEDS: GABAPENTIN 400 MG CAP PO SCH ×3 (10:34→21:42)
[2023-05-12] MEDS: MELOXICAM 7.5 MG TAB PO SCH (21:43)
[2023-05-12] MEDS: ATORVASTATIN 20 MG TAB PO SCH (21:44)
[2023-05-12] MEDS: AMITRIPTYLINE 25 MG TAB PO SCH (21:45)
[2023-05-12] MEDS: MIRTAZAPINE 15 MG TAB PO SCH (21:45)
[2023-05-13] MEDS: MORPHINE 4 MG/ML SYR IV PRN (02:45)
[2023-05-13] MEDS: GLIPIZIDE S.A. 5 MG TAB PO SCH (08:44)
[2023-05-13] MEDS: INSULIN REGULAR (HUMAN) 100 UNIT/ML SQ SCH ×3 (08:44→16:59)
[2023-05-13] MEDS: SOLIFENACIN SUCCIN 5 MG TAB PO SCH (08:44)
[2023-05-13] MEDS: INSULIN GLARGINE 100 UNIT/ML SQ SCH (08:44)
[2023-05-13] MEDS: HYDROCODONE/APAP 10/325 TAB PO SCH ×3 (08:45→16:59)
[2023-05-13] MEDS: PANTOPRAZOLE 40MG TABLET PO SCH (08:45)
[2023-05-13] MEDS: TRAMADOL HCL 50 MG TAB PO SCH ×2 (08:45→14:00)
[2023-05-13] MEDS: TOPIRAMATE 25 MG TAB PO SCH (08:45)
[2023-05-13] MEDS: CYCLOBENZAPRINE 10 MG TAB PO SCH (08:46)
[2023-05-13] MEDS: ENOXAPARIN 40 MG/0.4 ML SQ SCH (08:46)
[2023-05-13] MEDS: GABAPENTIN 400 MG CAP PO SCH ×2 (08:46→14:00)
[2023-05-13] MEDS: RIVASTIGMINE TARTRATE 1.5 MG PO SCH (08:47)
[2023-05-13] MEDS: METFORMIN HCL PO SCH (08:47)
[2023-05-13] MEDS: HOME MED 1 EA UNK (Fenofibrate [Fenofibrate] 50 MG Capsule) PO SCH (08:47)
[2023-05-13] MEDS: [UNRECOGNIZED DRUG - OTHER] PO SCH (08:47)
[2023-05-13] MEDS: SITAGLIPTIN PHOS PO SCH (08:47)
[2023-05-13] MEDS ORDERED: LORazepam 2 MG/ML VIAL IV ONE (12:38)
--- NOTE | 2023-05-13 15:34 | EKG ---
Test Date: 2023-05-09 Test Time: 02:36:56 Front Office Supervisor: DARIUS MEASUREMENT RESULTS: Intervals: Rate: 57 NM: 158 QRSD: 92 QT: 440 QTc: 428 [place]: P: 16 NM: 158 QRS: -16 T: 25 INTERPRETIVE STATEMENTS: Sinus bradycardia Possible Anterior infarct, age undetermined Abnormal ECG Compared to ECG 05/09/2023 02:36:16 No significant changes Electronically Signed On 05-13-23 15:18:09 BOTTLE SELECTOR by Buster Le
--- NOTE | 2023-05-13 15:34 | EKG ---
Test Date: 2023-05-09 Test Time: 02:36:16 Piece Marker Small Arms: DARIUS MEASUREMENT RESULTS: Intervals: Rate: 57 GA: 166 QRSD: 96 QT: 462 QTc: 449 [place]: P: 33 GA: 166 QRS: -15 T: 20 INTERPRETIVE STATEMENTS: Sinus bradycardia Cannot rule out Anterior infarct, age undetermined Abnormal ECG Compared to ECG 04/24/2023 14:07:56 Myocardial infarct finding now present Sinus rhythm no longer present Left-axis deviation no longer present Electronically Signed On 05-13-23 15:18:10 ORBITREAD OPERATOR by Buster Le
[2023-05-13 17:35] VITALS: BP 111/75; TEMP 97.1
== END 2023-05-13 18:45 | DRG 554 ==
LOC: ER 23:15 → ERHOLD 05-09 04:37 → 2ND 05-09 04:59
PROVIDERS: ADMIT Hospitalist; ATTEND Hospitalist
DX: M19.90 Unspecified osteoarthritis, unspecified site (principal); K21.9 Gastro-esophageal reflux disease without esophagitis; K76.0 Fatty (change of) liver, not elsewhere classified; E78.5 Hyperlipidemia, unspecified; M81.0 Age-related osteoporosis without current pathological fracture; J45.909 Unspecified asthma, uncomplicated; D50.9 Iron deficiency anemia, unspecified; E88.09 Other disorders of plasma-protein metabolism, not elsewhere classified; I12.9 Hypertensive chronic kidney disease with stage 1 through stage 4 chronic kidney disease, or unspecified chronic kidney disease; N18.9 Chronic kidney disease, unspecified; E11.22 Type 2 diabetes mellitus with diabetic chronic kidney disease; E11.40 Type 2 diabetes mellitus with diabetic neuropathy, unspecified; D63.1 Anemia in chronic kidney disease; G89.29 Other chronic pain; M47.9 Spondylosis, unspecified; F32.A Depression, unspecified; B19.20 Unspecified viral hepatitis C without hepatic coma; R32 Unspecified urinary incontinence; R29.6 Repeated falls; Z91.81 History of falling; Z88.8 Allergy status to other drugs, medicaments and biological substances; Z96.659 Presence of unspecified artificial knee joint
CPT/HCPCS: 36415; 70450; 71045; 72125; 80048; 80076; 82947; 83735; 83880; 84484; 85025; 85610; 93005; 96372; 97110; 97161; 97530; 99285; J1100; J1650; J1815; J2270; J2405; Q0169